=== PATIENT | male | born 1950 | race Caucasian/White ===

== ENCOUNTER 2016-09-17 | Inpatient (IN) | payer MEDICARE, MEDICAID ==
[~2016-09-17] VITALS: Ht 172.7 cm; Wt 65.8 kg
[~2016-09-17] MED LIST: ACID1TAB14 GT; ALBU2.5V38 IH; AMIO200T2 GT; ASCO500S2 GT; BISA10SU8 RC; DEXT1DRO6 EACHEYE; DOCU50LI GT; ERGO8000 GT; FINA5TAB3 GT; GLYC1TAB5 GT; HYDR-552 GT; Heparin Sodium,Porcine SQ; IPRA0.2S9 IH; LEVO150T8 GT; METO5SOL GT; METR500T PO; MULT-24 GT; MUPI22OI7; NUTR100037 GT; OMEP20CA4 GT; POLY17PO4 GT; POTA20LI4 GT; SENN8.6C5 GT; [UNRECOGNIZED DRUG - CODE] GT
[2016-09-19 07:45] VITALS: BP 109/64
--- NOTE | 2016-09-19 08:00 | NUR ---
Please see resident's previous account [id number] for all assessments and nurses notes. Originally admitted on 06/05/2014.
[2016-09-19] MEDS ORDERED: CEFTRIAXONE 1 G in IV D5W 50 ML IV SCH ×2 (09:00→17:00)
--- NOTE | 2016-09-19 10:00 | NUR ---
Pt seen by Dr. David. Notified Dr. David that patient had episodes of low grade fever 99-100F. No SOB/ no distress noted. UA C&S taken yesterday, results still pending. Temp now 98.1. No new order given.
--- NOTE | 2016-09-19 10:30 | NUR ---
at bedside, requested CBC to check WBC level d/t episodes of low grade fever. Dr. David notified, order obtained for CBC today, noted and carried out. notified of new order.
[2016-09-19] MEDS ORDERED: TUBERCULIN,PURIF.PROT.DERIV. 5 TU/0.1 ML VIAL ID SCH (10:41)
[2016-09-19] MEDS ORDERED: IPRATROPIUM NEB FS 0.5 MG/2.5 ML AMPUL.NEB NEB SCH (10:41)
[2016-09-19] MEDS ORDERED: FINASTERIDE (5 MG) 5 MG TABLET GT SCH (10:41)
[2016-09-19] MEDS ORDERED: POLYVINYL ALCOHOL 15 ML BOTTLE EACHEYE SCH (10:41)
[2016-09-19] MEDS ORDERED: MAG HYDROX/AL HYDROX/SIMETH 30 ML UDC GT PRN (10:41)
[2016-09-19] MEDS ORDERED: OMEPRAZOLE 20 MG GT SCH (10:41)
[2016-09-19] MEDS ORDERED: ERGOCALCIFEROL (VITAMIN D2) 8,000 UNIT/ML GT SCH (10:41)
[2016-09-19] MEDS ORDERED: ALBUTEROL FS 2.5 MG/3 ML VIAL.NEB NEB SCH (10:41)
[2016-09-19] MEDS ORDERED: LEVOTHYROXINE SODIUM 150 MCG TABLET GT SCH (10:41)
[2016-09-19] MEDS ORDERED: BACLOFEN (10 MG) 10 MG TABLET GT SCH (10:41)
[2016-09-19] MEDS ORDERED: SORBITOL SOLUTION 30 ML GT PRN (10:41)
[2016-09-19] MEDS ORDERED: BISACODYL SUPP (10 MG) 10 MG/SUPP.RECT SUPP.RECT RC PRN (10:41)
[2016-09-19] MEDS ORDERED: HYDROGEN PEROXIDE 480 ML BOTTLE TP PRN (10:41)
--- NOTE | 2016-09-19 11:16 | NUR ---
Please see resident's previous account [id number] for Social Service assessments, evaluations and notes.
[2016-09-19] MEDS: POLYVINYL ALCOHOL 15 ML BOTTLE EACHEYE SCH ×3 (13:00→21:00)
[2016-09-19] MEDS: BACLOFEN (10 MG) 10 MG TABLET GT SCH ×2 (13:00→21:00)
[2016-09-19 13:23] LABS: BASOPHILS # (AUTO) 0.1 /CMM (0.0-0.2); BASOPHILS % (AUTO) 0.6 % (0.0-2.0); EOSINOPHILS # (AUTO) 0.3 /CMM (0.0-0.7); EOSINOPHILS % (AUTO) 1.1 % (0.0-6.0); HEMATOCRIT 39 % (39-51); HEMOGLOBIN 12.2 g/dL (13.5-17.5); LYMPHOCYTES # (AUTO) 1.3 /CMM (0.8-4.8); LYMPHOCYTES % (AUTO) 5.4 % (20.0-44.0); MEAN CORPUSCULAR HEMOGLOBIN 24 PG (26.0-33.0); MEAN CORPUSCULAR HGB CONC 32 g/dl (31.0-36.0); MEAN CORPUSCULAR VOLUME 74 fL (80-96); MONOCYTES # (AUTO) 1.9 /CMM (0.1-1.30); MONOCYTES % (AUTO) 8.1 % (2.0-12.0); NEUTROPHILS # (AUTO) 20.1 /CMM (1.8-8.9); NEUTROPHILS % (AUTO) 84.8 % (43.0-81.0); PLATELET COUNT (AUTO) 237 /CMM (150-450); RDW COEFFICIENT OF VARIATION 18.7 (11.5-15.0); WHITE BLOOD COUNT (AUTO) 23.7 K/uL (4.3-11.0)
[2016-09-19] MEDS: IPRATROPIUM NEB FS 0.5 MG/2.5 ML AMPUL.NEB NEB SCH ×2 (13:45→19:41)
[2016-09-19] MEDS: ALBUTEROL FS 2.5 MG/3 ML VIAL.NEB NEB SCH ×2 (13:45→19:41)
[2016-09-19 14:37] LABS: EOSINOPHILS % (MANUAL) 1 % (0-4); LYMPHOCYTES % (MANUAL) 7 % (16-48); MONOCYTES % (MANUAL) 12 % (0-11.0); NEUTROPHILS % (MANUAL) 80 (42-76)
--- NOTE | 2016-09-19 14:44 | NUR ---
Relayed CBC result to Dr. David: WBC 23.4. Order obtained to start patient on Rocephin 1gm IV q daily x 7 days, blood culture x 2. Orders noted and carried out. Addendum: 09/19/16 at 1712 by CHIQUITA NICOLE RN correction on WBC result- 23.7
--- NOTE | 2016-09-19 16:20 | NUR ---
Received a call from [facility] pharmacist to verify if Dr. David wants to continue Rocephin d/t allergy to cefepime. Order obtained to DC Rocephin and start pt on Merrem 500mg IV q 8 hrs x 7 days. Order noted and carried out. Pt's notified of new order.
[2016-09-19 19:51] VITALS: BP 100/57
[2016-09-19] MEDS: FINASTERIDE (5 MG) 5 MG TABLET GT SCH (20:00)
[2016-09-19] MEDS: GLYCOPYRROLATE 1 MG TABLET GT SCH (21:00)
[2016-09-19] MEDS: CLOTRIMAZOLE/BETAMETASONE DIPROPIONATE 15 GM TUBE TP SCH (21:00)
[2016-09-19] MEDS: ZINC OXIDE 30 GM TUBE TP SCH ×2 (21:00)
[2016-09-19] MEDS: HYDROGEN PEROXIDE 480 ML BOTTLE TP SCH (21:00)
[2016-09-19] MEDS: HEPARIN SODIUM, PORCINE 5000 UNITS/1 ML VIAL SQ SCH (21:00)
--- NOTE | 2016-09-19 21:00 | NUR ---
RN NOTES Started Merrem 500mg IV as ordered, with no A/R noted. Will continue to monitor.
[2016-09-19] MEDS: MEROPENEM 500 MG in IV NS 0.9% 50 ML IV SCH (21:06)
[2016-09-20] MEDS: ALBUTEROL FS 2.5 MG/3 ML VIAL.NEB NEB SCH ×4 (01:42→19:51)
[2016-09-20] MEDS: IPRATROPIUM NEB FS 0.5 MG/2.5 ML AMPUL.NEB NEB SCH ×4 (01:42→19:51)
[2016-09-20] MEDS: BACLOFEN (10 MG) 10 MG TABLET GT SCH ×3 (05:00→20:26)
[2016-09-20] MEDS: MEROPENEM 500 MG in IV NS 0.9% 50 ML IV SCH ×3 (05:00→21:01)
[2016-09-20] MEDS: OMEPRAZOLE 20 MG GT SCH (06:40)
[2016-09-20] MEDS: LEVOTHYROXINE SODIUM 150 MCG TABLET GT SCH (06:40)
[2016-09-20 08:05] VITALS: BP 136/78
[2016-09-20] MEDS: ACIDOPHILUS/BULGARICUS 1 EACH TAB.CHEW GT SCH (08:22)
[2016-09-20] MEDS: GLYCOPYRROLATE 1 MG TABLET GT SCH ×2 (08:22→20:26)
[2016-09-20] MEDS: AMIODARONE HCL 200 MG TABLET GT SCH (08:22)
[2016-09-20] MEDS: POLYVINYL ALCOHOL 15 ML BOTTLE EACHEYE SCH ×4 (08:22→20:26)
[2016-09-20] MEDS: MULTIVITAMINS,THERAGRAN 1 UDTAB TABLET GT SCH (08:23)
[2016-09-20] MEDS: ASCORBIC ACID 500 MG TABLET GT SCH (08:23)
[2016-09-20] MEDS: POTASSIUM CHLORIDE 20 MEQ/15 ML ML GT SCH (08:23)
[2016-09-20] MEDS: POLYETHYLENE GLYCOL 3350 17 GM POWD.PACK GT SCH (08:23)
[2016-09-20] MEDS: ZINC OXIDE 30 GM TUBE TP SCH ×4 (08:25→20:27)
[2016-09-20] MEDS: HEPARIN SODIUM, PORCINE 5000 UNITS/1 ML VIAL SQ SCH ×2 (08:25→20:27)
[2016-09-20] MEDS: HYDROGEN PEROXIDE 480 ML BOTTLE TP SCH ×2 (08:25→20:27)
[2016-09-20] MEDS: CLOTRIMAZOLE/BETAMETASONE DIPROPIONATE 15 GM TUBE TP SCH ×2 (08:25→20:27)
[2016-09-20 19:43] VITALS: BP 119/69
[2016-09-20] MEDS: FINASTERIDE (5 MG) 5 MG TABLET GT SCH (20:26)
[2016-09-21] MEDS: IPRATROPIUM NEB FS 0.5 MG/2.5 ML AMPUL.NEB NEB SCH ×4 (02:09→20:01)
[2016-09-21] MEDS: ALBUTEROL FS 2.5 MG/3 ML VIAL.NEB NEB SCH ×4 (02:09→20:01)
[2016-09-21] MEDS: MEROPENEM 500 MG in IV NS 0.9% 50 ML IV SCH ×3 (05:01→21:05)
[2016-09-21] MEDS: BACLOFEN (10 MG) 10 MG TABLET GT SCH ×3 (05:49→20:53)
[2016-09-21] MEDS: LEVOTHYROXINE SODIUM 150 MCG TABLET GT SCH (05:49)
[2016-09-21] MEDS: OMEPRAZOLE 20 MG GT SCH (05:49)
[2016-09-21 07:42] VITALS: BP 112/74
[2016-09-21] MEDS: POLYETHYLENE GLYCOL 3350 17 GM POWD.PACK GT SCH (08:24)
[2016-09-21] MEDS: GLYCOPYRROLATE 1 MG TABLET GT SCH ×2 (08:24→20:53)
[2016-09-21] MEDS: AMIODARONE HCL 200 MG TABLET GT SCH (08:24)
[2016-09-21] MEDS: POTASSIUM CHLORIDE 20 MEQ/15 ML ML GT SCH (08:24)
[2016-09-21] MEDS: ASCORBIC ACID 500 MG TABLET GT SCH (08:24)
[2016-09-21] MEDS: MULTIVITAMINS,THERAGRAN 1 UDTAB TABLET GT SCH (08:24)
[2016-09-21] MEDS: POLYVINYL ALCOHOL 15 ML BOTTLE EACHEYE SCH ×4 (08:24→20:53)
[2016-09-21] MEDS: ACIDOPHILUS/BULGARICUS 1 EACH TAB.CHEW GT SCH (08:24)
[2016-09-21] MEDS: HEPARIN SODIUM, PORCINE 5000 UNITS/1 ML VIAL SQ SCH ×2 (08:25→20:53)
[2016-09-21] MEDS: ZINC OXIDE 30 GM TUBE TP SCH ×4 (08:25→20:54)
[2016-09-21] MEDS: CLOTRIMAZOLE/BETAMETASONE DIPROPIONATE 15 GM TUBE TP SCH ×2 (08:25→20:53)
[2016-09-21] MEDS: HYDROGEN PEROXIDE 480 ML BOTTLE TP SCH ×2 (08:25→20:53)
[2016-09-21] MEDS: RENAL NOVASOURCE 1,000 ML BOTTLE GT PRN (12:11)
[2016-09-21 20:18] VITALS: BP 100/60
--- NOTE | 2016-09-21 20:45 | NUR ---
Pt seen by Vivian Posada NP,with new order to get ID consult for recurrent UTI.Will contact ID in the morning.
[2016-09-21] MEDS: FINASTERIDE (5 MG) 5 MG TABLET GT SCH (20:53)
[2016-09-22] MEDS: IPRATROPIUM NEB FS 0.5 MG/2.5 ML AMPUL.NEB NEB SCH ×4 (01:42→19:22)
[2016-09-22] MEDS: ALBUTEROL FS 2.5 MG/3 ML VIAL.NEB NEB SCH ×4 (01:42→19:22)
[2016-09-22] MEDS: BACLOFEN (10 MG) 10 MG TABLET GT SCH ×3 (05:00→21:30)
[2016-09-22] MEDS: MEROPENEM 500 MG in IV NS 0.9% 50 ML IV SCH ×3 (05:14→21:00)
[2016-09-22] MEDS: LEVOTHYROXINE SODIUM 150 MCG TABLET GT SCH (06:35)
[2016-09-22] MEDS: OMEPRAZOLE 20 MG GT SCH (06:35)
[2016-09-22 08:08] VITALS: BP 95/62
[2016-09-22] MEDS: POLYVINYL ALCOHOL 15 ML BOTTLE EACHEYE SCH ×4 (08:54→21:30)
[2016-09-22] MEDS: AMIODARONE HCL 200 MG TABLET GT SCH (08:55)
[2016-09-22] MEDS: ACIDOPHILUS/BULGARICUS 1 EACH TAB.CHEW GT SCH (08:55)
[2016-09-22] MEDS: GLYCOPYRROLATE 1 MG TABLET GT SCH ×2 (08:55→21:30)
[2016-09-22] MEDS: MULTIVITAMINS,THERAGRAN 1 UDTAB TABLET GT SCH (08:56)
[2016-09-22] MEDS: ASCORBIC ACID 500 MG TABLET GT SCH (08:56)
[2016-09-22] MEDS: POLYETHYLENE GLYCOL 3350 17 GM POWD.PACK GT SCH (08:56)
[2016-09-22] MEDS: POTASSIUM CHLORIDE 20 MEQ/15 ML ML GT SCH (08:56)
[2016-09-22] MEDS: HEPARIN SODIUM, PORCINE 5000 UNITS/1 ML VIAL SQ SCH ×2 (08:57→21:31)
[2016-09-22] MEDS: HYDROGEN PEROXIDE 480 ML BOTTLE TP SCH ×2 (08:58→21:31)
[2016-09-22] MEDS: ZINC OXIDE 30 GM TUBE TP SCH ×4 (08:58→21:31)
[2016-09-22] MEDS: CLOTRIMAZOLE/BETAMETASONE DIPROPIONATE 15 GM TUBE TP SCH ×2 (08:58→21:31)
--- NOTE | 2016-09-22 11:45 | NUR ---
Made a followup call to lab ([facility]) regarding result of the urine cx collected on 09/18/16. According to lab he will follow-up and will get back to me.
--- NOTE | 2016-09-22 12:08 | NUR ---
Millicent Casillas NP ID notified of ID consult to review current medications and medications that can be added to prevent recurrence of UTI.
[2016-09-22] MEDS: RENAL NOVASOURCE 1,000 ML BOTTLE GT PRN (12:35)
[2016-09-22] MEDS: ACETAMINOPHEN 650 MG/20 ML UDC- FOR SA PATIENTS ONLY GT PRN (16:48)
--- NOTE | 2016-09-22 18:40 | NUR ---
Seen and examined by Millicent ALONZO, no new order given at this time. She stated that she will review his medications and look at prophylactic treatment after the ATB is completed.
[2016-09-22] MEDS: FINASTERIDE (5 MG) 5 MG TABLET GT SCH (20:30)
[2016-09-23] MEDS: IPRATROPIUM NEB FS 0.5 MG/2.5 ML AMPUL.NEB NEB SCH ×4 (00:48→19:30)
[2016-09-23] MEDS: ALBUTEROL FS 2.5 MG/3 ML VIAL.NEB NEB SCH ×4 (00:48→19:30)
[2016-09-23] MEDS: MEROPENEM 500 MG in IV NS 0.9% 50 ML IV SCH ×3 (05:00→21:00)
[2016-09-23] MEDS: BACLOFEN (10 MG) 10 MG TABLET GT SCH ×3 (05:00→21:20)
[2016-09-23] MEDS: OMEPRAZOLE 20 MG GT SCH (06:17)
[2016-09-23] MEDS: LEVOTHYROXINE SODIUM 150 MCG TABLET GT SCH (06:17)
[2016-09-23 07:39] VITALS: BP 115/53
[2016-09-23] MEDS: AMIODARONE HCL 200 MG TABLET GT SCH (08:58)
[2016-09-23] MEDS: ASCORBIC ACID 500 MG TABLET GT SCH (08:58)
[2016-09-23] MEDS: MULTIVITAMINS,THERAGRAN 1 UDTAB TABLET GT SCH (08:58)
[2016-09-23] MEDS: POLYETHYLENE GLYCOL 3350 17 GM POWD.PACK GT SCH (08:58)
[2016-09-23] MEDS: POTASSIUM CHLORIDE 20 MEQ/15 ML ML GT SCH (08:58)
[2016-09-23] MEDS: POLYVINYL ALCOHOL 15 ML BOTTLE EACHEYE SCH ×4 (08:58→21:20)
[2016-09-23] MEDS: GLYCOPYRROLATE 1 MG TABLET GT SCH ×2 (08:58→21:20)
[2016-09-23] MEDS: ACIDOPHILUS/BULGARICUS 1 EACH TAB.CHEW GT SCH (08:58)
[2016-09-23] MEDS: HEPARIN SODIUM, PORCINE 5000 UNITS/1 ML VIAL SQ SCH ×2 (09:00→21:21)
[2016-09-23] MEDS: HYDROGEN PEROXIDE 480 ML BOTTLE TP SCH ×2 (09:00→21:21)
[2016-09-23] MEDS: CLOTRIMAZOLE/BETAMETASONE DIPROPIONATE 15 GM TUBE TP SCH ×2 (09:00→21:21)
[2016-09-23] MEDS: ZINC OXIDE 30 GM TUBE TP SCH ×4 (09:00→21:21)
[2016-09-23] MEDS: ACETAMINOPHEN 650 MG/20 ML UDC- FOR SA PATIENTS ONLY GT PRN (09:12)
[2016-09-23] MEDS: RENAL NOVASOURCE 1,000 ML BOTTLE GT PRN (15:23)
--- NOTE | 2016-09-23 19:10 | NUR ---
Notified CARMELITA Ricks ID of the CXR result showing bilateral perihilar infiltrates with suggestion of a left retrocardiac opacity. New order given to add Vancomycin IV to the current ATB. per pharmacy to dose. Faxed order to [facility] pharmacy for dosing and endorsed to incoming shift to notify and start the dose.
--- NOTE | 2016-09-23 19:32 | NUR ---
RECEIVED AN ORDER FROM [facility] PHARMACIST TORI TO START VANCOMYCIN 1GRAM IVPB Q24HRS START AT 2000 TONIGHT AND GET THE DOSE FROM THE E-KIT. DRAW THROUGH ON 09/25/16Sunday AT 1930 BEFORE THE 2000 DOSE. BUN AND CREATININE ORDER TOO.
[2016-09-23 19:58] VITALS: BP 100/65
[2016-09-23] MEDS: FINASTERIDE (5 MG) 5 MG TABLET GT SCH (20:00)
[2016-09-23] MEDS ORDERED: VANCOMYCIN 1 GM in IV D5W 250 ML IV SCH (20:30)
[2016-09-24] MEDS: IPRATROPIUM NEB FS 0.5 MG/2.5 ML AMPUL.NEB NEB SCH ×4 (01:41→19:13)
[2016-09-24] MEDS: ALBUTEROL FS 2.5 MG/3 ML VIAL.NEB NEB SCH ×4 (01:41→19:13)
[2016-09-24] MEDS: MEROPENEM 500 MG in IV NS 0.9% 50 ML IV SCH ×3 (05:00→20:58)
[2016-09-24] MEDS: OMEPRAZOLE 20 MG GT SCH (05:24)
[2016-09-24] MEDS: LEVOTHYROXINE SODIUM 150 MCG TABLET GT SCH (05:24)
[2016-09-24] MEDS: BACLOFEN (10 MG) 10 MG TABLET GT SCH ×3 (05:24→20:16)
[2016-09-24] MEDS ORDERED: VANCOMYCIN 1 GM in IV D5W 250 ML IV SCH (07:29)
--- NOTE | 2016-09-24 08:00 | NUR ---
RT PATIENT RECEIVED TRACHED ON COOL AEROSOL VIA BAL RANJIT WELL. RESP TX'S GIVEN ORDERED RANJIT WELL. TRACH SECURE AND IN PROPER POSITION. SX'D WITH MOD AMT PALE SEMITHICK SECRETIONS. B/S DIM RHONCHI. PATIENT IN NO DISTRESS OR SOB AT THIS TIME. BACK UP TRACH AND AMBU BAG AT [facility]. CONTINUE CURRENT PLAN OF RESP CARE.
[2016-09-24 08:10] VITALS: BP 113/75
[2016-09-24] MEDS: POLYVINYL ALCOHOL 15 ML BOTTLE EACHEYE SCH ×4 (09:03→20:16)
[2016-09-24] MEDS: HEPARIN SODIUM, PORCINE 5000 UNITS/1 ML VIAL SQ SCH ×2 (09:04→20:19)
[2016-09-24] MEDS: ASCORBIC ACID 500 MG TABLET GT SCH (09:04)
[2016-09-24] MEDS: ACIDOPHILUS/BULGARICUS 1 EACH TAB.CHEW GT SCH (09:04)
[2016-09-24] MEDS: POTASSIUM CHLORIDE 20 MEQ/15 ML ML GT SCH (09:04)
[2016-09-24] MEDS: POLYETHYLENE GLYCOL 3350 17 GM POWD.PACK GT SCH (09:04)
[2016-09-24] MEDS: MULTIVITAMINS,THERAGRAN 1 UDTAB TABLET GT SCH (09:04)
[2016-09-24] MEDS: ERGOCALCIFEROL (VITAMIN D2) 8,000 UNIT/ML GT SCH (09:04)
[2016-09-24] MEDS: GLYCOPYRROLATE 1 MG TABLET GT SCH ×2 (09:04→20:16)
[2016-09-24] MEDS: AMIODARONE HCL 200 MG TABLET GT SCH (09:04)
[2016-09-24] MEDS: ZINC OXIDE 30 GM TUBE TP SCH ×4 (09:05→20:19)
[2016-09-24] MEDS: HYDROGEN PEROXIDE 480 ML BOTTLE TP SCH ×2 (09:05→20:19)
[2016-09-24] MEDS: CLOTRIMAZOLE/BETAMETASONE DIPROPIONATE 15 GM TUBE TP SCH ×2 (09:05→20:19)
[2016-09-24 20:05] VITALS: BP 114/58
[2016-09-24] MEDS: FINASTERIDE (5 MG) 5 MG TABLET GT SCH (20:15)
[2016-09-24] MEDS: VANCOMYCIN 1 GM in IV D5W 250 ML IV SCH (20:58)
[2016-09-25] MEDS: IPRATROPIUM NEB FS 0.5 MG/2.5 ML AMPUL.NEB NEB SCH ×4 (01:14→19:24)
[2016-09-25] MEDS: ALBUTEROL FS 2.5 MG/3 ML VIAL.NEB NEB SCH ×4 (01:15→19:24)
[2016-09-25] MEDS: BACLOFEN (10 MG) 10 MG TABLET GT SCH ×3 (05:25→20:41)
[2016-09-25] MEDS: OMEPRAZOLE 20 MG GT SCH (05:26)
[2016-09-25] MEDS: LEVOTHYROXINE SODIUM 150 MCG TABLET GT SCH (05:26)
[2016-09-25] MEDS: MEROPENEM 500 MG in IV NS 0.9% 50 ML IV SCH ×3 (05:35→21:26)
[2016-09-25 08:10] VITALS: BP 107/68
--- NOTE | 2016-09-25 08:16 | NUR ---
RT PATIENT RECEIVED TRACHED ON COOL AEROSOL VIA BAL RANJIT WELL. RESP TX'S GIVEN ORDERED RANJIT WELL. TRACH SECURE AND IN PROPER POSITION. SX'D WITH MOD AMT PALE SEMITHICK SECRETIONS. B/S DIM RHONCHI. PATIENT IN NO DISTRESS OR SOB AT THIS TIME. BACK UP TRACH AND AMBU BAG AT [facility]. CONTINUE CURRENT PLAN OF RESP CARE.
[2016-09-25] MEDS: ZINC OXIDE 30 GM TUBE TP SCH ×4 (09:00→20:41)
[2016-09-25] MEDS: HYDROGEN PEROXIDE 480 ML BOTTLE TP SCH ×2 (09:00→20:41)
[2016-09-25] MEDS: CLOTRIMAZOLE/BETAMETASONE DIPROPIONATE 15 GM TUBE TP SCH ×2 (09:00→20:41)
[2016-09-25] MEDS: POLYVINYL ALCOHOL 15 ML BOTTLE EACHEYE SCH ×4 (09:25→20:41)
[2016-09-25] MEDS: AMIODARONE HCL 200 MG TABLET GT SCH (09:25)
[2016-09-25] MEDS: GLYCOPYRROLATE 1 MG TABLET GT SCH ×2 (09:26→20:41)
[2016-09-25] MEDS: ACIDOPHILUS/BULGARICUS 1 EACH TAB.CHEW GT SCH (09:27)
[2016-09-25] MEDS: POLYETHYLENE GLYCOL 3350 17 GM POWD.PACK GT SCH (09:27)
[2016-09-25] MEDS: POTASSIUM CHLORIDE 20 MEQ/15 ML ML GT SCH (09:28)
[2016-09-25] MEDS: MULTIVITAMINS,THERAGRAN 1 UDTAB TABLET GT SCH (09:29)
[2016-09-25] MEDS: ASCORBIC ACID 500 MG TABLET GT SCH (09:29)
[2016-09-25] MEDS: HEPARIN SODIUM, PORCINE 5000 UNITS/1 ML VIAL SQ SCH ×2 (09:29→20:41)
--- NOTE | 2016-09-25 10:17 | NUR ---
Seen by Dr. David. Received order to do CMC tomorrow. Addendum: 09/25/16 at 1022 by NOAH OGDEN RN CBC
[2016-09-25 19:54] LABS: CREATININE 1.6 mg/dL (0.6-1.3)
[2016-09-25 20:00] VITALS: BP 111/67
[2016-09-25] MEDS: VANCOMYCIN 1 GM in IV D5W 250 ML IV SCH (20:30)
--- NOTE | 2016-09-25 20:30 | NUR ---
RN NOTES Relayed vanco trough level of 13, BUN/CREA serum 29/1.6 to [facility] pharmacist. Received pharmacy recommendation to continue same dose, relayed to Dr. Paniagua and received new order noted and carried out. at bedside and made aware of new orders.
[2016-09-25] MEDS: FINASTERIDE (5 MG) 5 MG TABLET GT SCH (20:41)
[2016-09-25] MEDS: RENAL NOVASOURCE 1,000 ML BOTTLE GT PRN (20:43)
[2016-09-26] MEDS: ALBUTEROL FS 2.5 MG/3 ML VIAL.NEB NEB SCH ×4 (00:57→19:30)
[2016-09-26] MEDS: IPRATROPIUM NEB FS 0.5 MG/2.5 ML AMPUL.NEB NEB SCH ×4 (00:57→19:30)
[2016-09-26] MEDS: MEROPENEM 500 MG in IV NS 0.9% 50 ML IV SCH ×2 (05:00→13:05)
[2016-09-26] MEDS: OMEPRAZOLE 20 MG GT SCH (05:46)
[2016-09-26] MEDS: LEVOTHYROXINE SODIUM 150 MCG TABLET GT SCH (05:46)
[2016-09-26] MEDS: BACLOFEN (10 MG) 10 MG TABLET GT SCH ×3 (05:46→20:35)
[2016-09-26 07:39] VITALS: BP 137/56
[2016-09-26 07:59] LABS: BASOPHILS # (AUTO) 0.2 /CMM (0.0-0.2); BASOPHILS % (AUTO) 1.4 % (0.0-2.0); EOSINOPHILS # (AUTO) 0.3 /CMM (0.0-0.7); EOSINOPHILS % (AUTO) 2.5 % (0.0-6.0); HEMATOCRIT 33 % (39-51); HEMOGLOBIN 10.6 g/dL (13.5-17.5); LYMPHOCYTES # (AUTO) 1.2 /CMM (0.8-4.8); LYMPHOCYTES % (AUTO) 10.3 % (20.0-44.0); MEAN CORPUSCULAR HEMOGLOBIN 24 PG (26.0-33.0); MEAN CORPUSCULAR HGB CONC 32 g/dl (31.0-36.0); MEAN CORPUSCULAR VOLUME 74 fL (80-96); MONOCYTES # (AUTO) 1.2 /CMM (0.1-1.30); MONOCYTES % (AUTO) 10.6 % (2.0-12.0); NEUTROPHILS # (AUTO) 8.4 /CMM (1.8-8.9); NEUTROPHILS % (AUTO) 75.2 % (43.0-81.0); PLATELET COUNT (AUTO) 376 /CMM (150-450); RDW COEFFICIENT OF VARIATION 18.5 (11.5-15.0); RED BLOOD CELL COUNT(AUTO) 4.47 MIL/uL (4.5-6.0); WHITE BLOOD COUNT (AUTO) 11.2 K/uL (4.3-11.0)
[2016-09-26] MEDS: CLOTRIMAZOLE/BETAMETASONE DIPROPIONATE 15 GM TUBE TP SCH ×2 (09:00→20:43)
[2016-09-26] MEDS: ZINC OXIDE 30 GM TUBE TP SCH ×4 (09:00→20:44)
[2016-09-26] MEDS: HYDROGEN PEROXIDE 480 ML BOTTLE TP SCH ×2 (09:00→20:43)
[2016-09-26] MEDS: AMIODARONE HCL 200 MG TABLET GT SCH (09:58)
[2016-09-26] MEDS: POLYETHYLENE GLYCOL 3350 17 GM POWD.PACK GT SCH (09:59)
[2016-09-26] MEDS: POLYVINYL ALCOHOL 15 ML BOTTLE EACHEYE SCH ×4 (09:59→20:34)
[2016-09-26] MEDS: ASCORBIC ACID 500 MG TABLET GT SCH (09:59)
[2016-09-26] MEDS: POTASSIUM CHLORIDE 20 MEQ/15 ML ML GT SCH (09:59)
[2016-09-26] MEDS: GLYCOPYRROLATE 1 MG TABLET GT SCH ×2 (09:59→20:34)
[2016-09-26] MEDS: MULTIVITAMINS,THERAGRAN 1 UDTAB TABLET GT SCH (09:59)
[2016-09-26] MEDS: ACIDOPHILUS/BULGARICUS 1 EACH TAB.CHEW GT SCH (09:59)
[2016-09-26] MEDS: HEPARIN SODIUM, PORCINE 5000 UNITS/1 ML VIAL SQ SCH ×2 (10:00→20:43)
--- NOTE | 2016-09-26 13:30 | NUR ---
Seen by STRICKLER ATTENDANT Vivian Posada. Relayed CBC result to her. WBC improved to 11.2. Pt still on IV ATBs. No new order.
[2016-09-26] MEDS: VANCOMYCIN 1 GM in IV D5W 250 ML IV SCH (20:00)
[2016-09-26 20:11] VITALS: BP 120/69
[2016-09-26] MEDS: FINASTERIDE (5 MG) 5 MG TABLET GT SCH (20:34)
[2016-09-27] MEDS: IPRATROPIUM NEB FS 0.5 MG/2.5 ML AMPUL.NEB NEB SCH ×4 (01:00→19:30)
[2016-09-27] MEDS: ALBUTEROL FS 2.5 MG/3 ML VIAL.NEB NEB SCH ×4 (01:00→19:30)
[2016-09-27] MEDS: BACLOFEN (10 MG) 10 MG TABLET GT SCH ×3 (05:14→20:25)
[2016-09-27] MEDS: LEVOTHYROXINE SODIUM 150 MCG TABLET GT SCH (05:14)
[2016-09-27] MEDS: OMEPRAZOLE 20 MG GT SCH (05:14)
[2016-09-27 07:36] VITALS: BP 116/74
[2016-09-27] MEDS: MULTIVITAMINS,THERAGRAN 1 UDTAB TABLET GT SCH (08:57)
[2016-09-27] MEDS: GLYCOPYRROLATE 1 MG TABLET GT SCH ×2 (08:57→20:25)
[2016-09-27] MEDS: ASCORBIC ACID 500 MG TABLET GT SCH (08:57)
[2016-09-27] MEDS: POTASSIUM CHLORIDE 20 MEQ/15 ML ML GT SCH (08:57)
[2016-09-27] MEDS: ACIDOPHILUS/BULGARICUS 1 EACH TAB.CHEW GT SCH (08:57)
[2016-09-27] MEDS: POLYETHYLENE GLYCOL 3350 17 GM POWD.PACK GT SCH (08:57)
[2016-09-27] MEDS: POLYVINYL ALCOHOL 15 ML BOTTLE EACHEYE SCH ×4 (08:57→20:25)
[2016-09-27] MEDS: AMIODARONE HCL 200 MG TABLET GT SCH (08:57)
[2016-09-27] MEDS: CLOTRIMAZOLE/BETAMETASONE DIPROPIONATE 15 GM TUBE TP SCH ×2 (08:58→20:27)
[2016-09-27] MEDS: ZINC OXIDE 30 GM TUBE TP SCH ×4 (08:58→20:27)
[2016-09-27] MEDS: HYDROGEN PEROXIDE 480 ML BOTTLE TP SCH ×2 (08:58→20:27)
[2016-09-27] MEDS: HEPARIN SODIUM, PORCINE 5000 UNITS/1 ML VIAL SQ SCH ×2 (09:00→20:27)
--- NOTE | 2016-09-27 14:00 | NUR ---
Seen and examined by Vivian Posada NP, no new order given.
[2016-09-27 20:00] VITALS: BP 113/63
[2016-09-27] MEDS: VANCOMYCIN 1 GM in IV D5W 250 ML IV SCH (20:23)
[2016-09-27] MEDS: FINASTERIDE (5 MG) 5 MG TABLET GT SCH (20:25)
[2016-09-28] MEDS: ALBUTEROL FS 2.5 MG/3 ML VIAL.NEB NEB SCH ×4 (01:35→20:08)
[2016-09-28] MEDS: IPRATROPIUM NEB FS 0.5 MG/2.5 ML AMPUL.NEB NEB SCH ×4 (01:35→20:08)
[2016-09-28] MEDS: BACLOFEN (10 MG) 10 MG TABLET GT SCH ×3 (04:36→20:56)
[2016-09-28] MEDS: OMEPRAZOLE 20 MG GT SCH (05:31)
[2016-09-28] MEDS: LEVOTHYROXINE SODIUM 150 MCG TABLET GT SCH (05:31)
[2016-09-28 07:54] VITALS: BP 121/80
[2016-09-28] MEDS: POLYVINYL ALCOHOL 15 ML BOTTLE EACHEYE SCH ×4 (09:21→20:56)
[2016-09-28] MEDS: POTASSIUM CHLORIDE 20 MEQ/15 ML ML GT SCH (09:22)
[2016-09-28] MEDS: GLYCOPYRROLATE 1 MG TABLET GT SCH ×2 (09:22→20:56)
[2016-09-28] MEDS: POLYETHYLENE GLYCOL 3350 17 GM POWD.PACK GT SCH (09:22)
[2016-09-28] MEDS: AMIODARONE HCL 200 MG TABLET GT SCH (09:22)
[2016-09-28] MEDS: MULTIVITAMINS,THERAGRAN 1 UDTAB TABLET GT SCH (09:22)
[2016-09-28] MEDS: ASCORBIC ACID 500 MG TABLET GT SCH (09:22)
[2016-09-28] MEDS: ACIDOPHILUS/BULGARICUS 1 EACH TAB.CHEW GT SCH (09:22)
[2016-09-28] MEDS: CLOTRIMAZOLE/BETAMETASONE DIPROPIONATE 15 GM TUBE TP SCH ×2 (09:23→20:58)
[2016-09-28] MEDS: ZINC OXIDE 30 GM TUBE TP SCH ×4 (09:23→21:01)
[2016-09-28] MEDS: HYDROGEN PEROXIDE 480 ML BOTTLE TP SCH ×2 (09:23→20:58)
[2016-09-28] MEDS: HEPARIN SODIUM, PORCINE 5000 UNITS/1 ML VIAL SQ SCH ×2 (09:23→20:58)
[2016-09-28] MEDS: VANCOMYCIN 1 GM in IV D5W 250 ML IV SCH (20:00)
[2016-09-28 20:14] VITALS: BP 115/71
[2016-09-28 20:15] LABS: CREATININE 1.6 mg/dL (0.6-1.3)
[2016-09-28] MEDS: FINASTERIDE (5 MG) 5 MG TABLET GT SCH (20:56)
[2016-09-29] MEDS: ALBUTEROL FS 2.5 MG/3 ML VIAL.NEB NEB SCH ×4 (02:00→20:10)
[2016-09-29] MEDS: IPRATROPIUM NEB FS 0.5 MG/2.5 ML AMPUL.NEB NEB SCH ×4 (02:00→20:10)
[2016-09-29] MEDS: RENAL NOVASOURCE 1,000 ML BOTTLE GT PRN (04:50)
[2016-09-29] MEDS: BACLOFEN (10 MG) 10 MG TABLET GT SCH ×3 (05:00→21:48)
[2016-09-29] MEDS: OMEPRAZOLE 20 MG GT SCH (06:24)
[2016-09-29] MEDS: LEVOTHYROXINE SODIUM 150 MCG TABLET GT SCH (06:24)
--- NOTE | 2016-09-29 07:45 | NUR ---
RT PATIENT RECEIVED TRACHED ON COOL AEROSOL VIA T-BAR RANJIT WELL. RESP TX'S GIVEN ORDERED RANJIT WELL. TRACH SECURE AND IN PROPER POSITION. SX'D WITH MOD AMT PALE SEMITHICK SECRETIONS. B/S DIM. PATIENT IN NO DISTRESS OR SOB AT THIS TIME. BACK UP TRACH AND AMBU BAG AT [facility]. CONTINUE CURRENT PLAN OF RESP CARE.
[2016-09-29] MEDS: POLYVINYL ALCOHOL 15 ML BOTTLE EACHEYE SCH ×4 (09:00→21:48)
[2016-09-29] MEDS: MULTIVITAMINS,THERAGRAN 1 UDTAB TABLET GT SCH (09:00)
[2016-09-29] MEDS: HYDROGEN PEROXIDE 480 ML BOTTLE TP SCH ×2 (09:00→21:49)
[2016-09-29] MEDS: ACIDOPHILUS/BULGARICUS 1 EACH TAB.CHEW GT SCH (09:00)
[2016-09-29] MEDS: POLYETHYLENE GLYCOL 3350 17 GM POWD.PACK GT SCH (09:00)
[2016-09-29] MEDS: ASCORBIC ACID 500 MG TABLET GT SCH (09:00)
[2016-09-29] MEDS: HEPARIN SODIUM, PORCINE 5000 UNITS/1 ML VIAL SQ SCH ×2 (09:00→21:49)
[2016-09-29] MEDS: GLYCOPYRROLATE 1 MG TABLET GT SCH ×2 (09:00→21:48)
[2016-09-29] MEDS: POTASSIUM CHLORIDE 20 MEQ/15 ML ML GT SCH (09:00)
[2016-09-29] MEDS: ZINC OXIDE 30 GM TUBE TP SCH ×4 (09:00→21:49)
[2016-09-29] MEDS: AMIODARONE HCL 200 MG TABLET GT SCH (09:00)
[2016-09-29] MEDS: CLOTRIMAZOLE/BETAMETASONE DIPROPIONATE 15 GM TUBE TP SCH ×2 (09:00→21:49)
--- NOTE | 2016-09-29 10:00 | NUR ---
Notified [facility] pharmacy regarding Vanco trough level 18, BUN 36, Creat 1.6 with order to continue same dose and repeat Vanco trough, BUN, Creat on Sunday. All orders noted and carried out.
--- NOTE | 2016-09-29 14:06 | NUR ---
IDT meeting held , reviewed current meds, labs and treatment orders. No new order given, Pharmacy asking for Vancomycin stop date, CLINTON Ricks notified with order to give Vancomycin for a total of 7 days. All orders noted and carried out.
[2016-09-29] MEDS: VANCOMYCIN 1 GM in IV D5W 250 ML IV SCH (19:48)
[2016-09-29 19:58] VITALS: BP 111/66
[2016-09-29] MEDS: FINASTERIDE (5 MG) 5 MG TABLET GT SCH (20:00)
[2016-09-30] MEDS: IPRATROPIUM NEB FS 0.5 MG/2.5 ML AMPUL.NEB NEB SCH ×4 (02:28→19:32)
[2016-09-30] MEDS: ALBUTEROL FS 2.5 MG/3 ML VIAL.NEB NEB SCH ×4 (02:28→19:32)
[2016-09-30] MEDS: BACLOFEN (10 MG) 10 MG TABLET GT SCH ×3 (05:00→20:43)
[2016-09-30] MEDS: OMEPRAZOLE 20 MG GT SCH (06:34)
[2016-09-30] MEDS: LEVOTHYROXINE SODIUM 150 MCG TABLET GT SCH (06:34)
[2016-09-30 07:46] VITALS: BP 125/77
[2016-09-30] MEDS: HEPARIN SODIUM, PORCINE 5000 UNITS/1 ML VIAL SQ SCH ×2 (09:00→20:44)
[2016-09-30] MEDS: POLYVINYL ALCOHOL 15 ML BOTTLE EACHEYE SCH ×4 (09:00→20:43)
[2016-09-30] MEDS: MULTIVITAMINS,THERAGRAN 1 UDTAB TABLET GT SCH (09:00)
[2016-09-30] MEDS: HYDROGEN PEROXIDE 480 ML BOTTLE TP SCH ×2 (09:00→20:44)
[2016-09-30] MEDS: POLYETHYLENE GLYCOL 3350 17 GM POWD.PACK GT SCH (09:00)
[2016-09-30] MEDS: ACIDOPHILUS/BULGARICUS 1 EACH TAB.CHEW GT SCH (09:00)
[2016-09-30] MEDS: AMIODARONE HCL 200 MG TABLET GT SCH (09:00)
[2016-09-30] MEDS: ASCORBIC ACID 500 MG TABLET GT SCH (09:00)
[2016-09-30] MEDS: ZINC OXIDE 30 GM TUBE TP SCH ×4 (09:00→20:44)
[2016-09-30] MEDS: GLYCOPYRROLATE 1 MG TABLET GT SCH ×2 (09:00→20:43)
[2016-09-30] MEDS: POTASSIUM CHLORIDE 20 MEQ/15 ML ML GT SCH (09:00)
--- NOTE | 2016-09-30 11:04 | NUR ---
Received an order from Dr. David for a repeat CXRY and CBC on Sunday for F/U, S/P ATB. notified.
[2016-09-30 19:45] VITALS: BP 116/64
[2016-09-30] MEDS: FINASTERIDE (5 MG) 5 MG TABLET GT SCH (20:43)
[2016-10-01] MEDS: IPRATROPIUM NEB FS 0.5 MG/2.5 ML AMPUL.NEB NEB SCH ×4 (01:22→19:22)
[2016-10-01] MEDS: ALBUTEROL FS 2.5 MG/3 ML VIAL.NEB NEB SCH ×4 (01:22→19:22)
[2016-10-01] MEDS: OMEPRAZOLE 20 MG GT SCH (05:27)
[2016-10-01] MEDS: BACLOFEN (10 MG) 10 MG TABLET GT SCH ×3 (05:27→20:38)
[2016-10-01] MEDS: LEVOTHYROXINE SODIUM 150 MCG TABLET GT SCH (05:27)
[2016-10-01 08:28] VITALS: BP 104/63
[2016-10-01] MEDS: POLYVINYL ALCOHOL 15 ML BOTTLE EACHEYE SCH ×4 (09:22→20:38)
[2016-10-01] MEDS: AMIODARONE HCL 200 MG TABLET GT SCH (09:23)
[2016-10-01] MEDS: GLYCOPYRROLATE 1 MG TABLET GT SCH ×2 (09:24→20:38)
[2016-10-01] MEDS: ACIDOPHILUS/BULGARICUS 1 EACH TAB.CHEW GT SCH (09:24)
[2016-10-01] MEDS: POLYETHYLENE GLYCOL 3350 17 GM POWD.PACK GT SCH (09:25)
[2016-10-01] MEDS: POTASSIUM CHLORIDE 20 MEQ/15 ML ML GT SCH (09:26)
[2016-10-01] MEDS: ASCORBIC ACID 500 MG TABLET GT SCH (09:26)
[2016-10-01] MEDS: MULTIVITAMINS,THERAGRAN 1 UDTAB TABLET GT SCH (09:26)
[2016-10-01] MEDS: ERGOCALCIFEROL (VITAMIN D2) 8,000 UNIT/ML GT SCH (09:27)
[2016-10-01] MEDS: HEPARIN SODIUM, PORCINE 5000 UNITS/1 ML VIAL SQ SCH ×2 (09:28→20:39)
[2016-10-01] MEDS: HYDROGEN PEROXIDE 480 ML BOTTLE TP SCH ×2 (09:30→20:39)
[2016-10-01] MEDS: ZINC OXIDE 30 GM TUBE TP SCH ×5 (09:31→21:00)
[2016-10-01] MEDS: RENAL NOVASOURCE 1,000 ML BOTTLE GT PRN (17:30)
--- NOTE | 2016-10-01 19:29 | NUR ---
Seen by Dr. Paniagua and gave an order for UA on 10/02/16. aware
[2016-10-01 19:56] VITALS: BP 112/78
[2016-10-01] MEDS: FINASTERIDE (5 MG) 5 MG TABLET GT SCH (20:38)
[2016-10-01] MEDS: CLOTRIMAZOLE/BETAMETASONE DIPROPIONATE 15 GM TUBE TP SCH (21:00)
[2016-10-02] MEDS: ALBUTEROL FS 2.5 MG/3 ML VIAL.NEB NEB SCH ×4 (00:47→20:03)
[2016-10-02] MEDS: IPRATROPIUM NEB FS 0.5 MG/2.5 ML AMPUL.NEB NEB SCH ×4 (00:47→20:03)
[2016-10-02 04:59] LABS: APPEARANCE,URINE CLEAR (CLEAR); BILIRUBIN,URINE NEGATIVE (NEGATIVE); BLOOD, URINE 1+ Ery/uL (NEGATIVE); COLOR,URINE YELLOW (YELLOW); KETONES,URINE NEGATIVE (NEGATIVE); LEUKOCYTE ESTERASE ,URINE 3+ (NEGATIVE); NITRITE, URINE NEGATIVE (NEGATIVE); PROTEIN,URINE NEGATIVE (NEGATIVE); UGLUCOSE NEGATIVE (NEGATIVE); UROBILINOGEN,URINE 0.2 EU/dL (0.2)
[2016-10-02 05:36] LABS: BACTERIA,URINE None seen /HPF (None Seen); RBC,URINE 0-2 /HPF (0-2); SQUAMOUS EPITHELIAL CELL,UR Few /HPF (None Seen); YEAST,URINE Many /HPF (None Seen)
[2016-10-02] MEDS: LEVOTHYROXINE SODIUM 150 MCG TABLET GT SCH (05:37)
[2016-10-02] MEDS: OMEPRAZOLE 20 MG GT SCH (05:37)
[2016-10-02] MEDS: BACLOFEN (10 MG) 10 MG TABLET GT SCH ×3 (05:37→21:11)
[2016-10-02 07:08] LABS: BASOPHILS % (AUTO) 0.3 % (0.0-2.0); EOSINOPHILS # (AUTO) 0.1 /CMM (0.0-0.7); EOSINOPHILS % (AUTO) 0.4 % (0.0-6.0); HEMATOCRIT 37 % (39-51); HEMOGLOBIN 11.7 g/dL (13.5-17.5); LYMPHOCYTES # (AUTO) 0.8 /CMM (0.8-4.8); LYMPHOCYTES % (AUTO) 4.8 % (20.0-44.0); MEAN CORPUSCULAR HEMOGLOBIN 24 PG (26.0-33.0); MEAN CORPUSCULAR HGB CONC 32 g/dl (31.0-36.0); MEAN CORPUSCULAR VOLUME 75 fL (80-96); MONOCYTES # (AUTO) 0.9 /CMM (0.1-1.30); MONOCYTES % (AUTO) 4.9 % (2.0-12.0); NEUTROPHILS # (AUTO) 15.6 /CMM (1.8-8.9); NEUTROPHILS % (AUTO) 89.6 % (43.0-81.0); PLATELET COUNT (AUTO) 315 /CMM (150-450); RDW COEFFICIENT OF VARIATION 18.3 (11.5-15.0); RED BLOOD CELL COUNT(AUTO) 4.98 MIL/uL (4.5-6.0); WHITE BLOOD COUNT (AUTO) 17.4 K/uL (4.3-11.0)
[2016-10-02 07:45] VITALS: BP 114/77
[2016-10-02 08:13] LABS: BAND % (MANUAL) 3 % (0.0-5.0); EOSINOPHILS % (MANUAL) 2 % (0-4); LYMPHOCYTES % (MANUAL) 6 % (16-48); MONOCYTES % (MANUAL) 8 % (0-11.0); NEUTROPHILS % (MANUAL) 81 (42-76)
[2016-10-02] MEDS: HYDROGEN PEROXIDE 480 ML BOTTLE TP SCH ×2 (09:00→21:12)
[2016-10-02] MEDS: ZINC OXIDE 30 GM TUBE TP SCH ×6 (09:00→21:12)
[2016-10-02] MEDS: POLYVINYL ALCOHOL 15 ML BOTTLE EACHEYE SCH ×4 (09:08→21:11)
[2016-10-02] MEDS: ACIDOPHILUS/BULGARICUS 1 EACH TAB.CHEW GT SCH (09:09)
[2016-10-02] MEDS: POLYETHYLENE GLYCOL 3350 17 GM POWD.PACK GT SCH (09:09)
[2016-10-02] MEDS: AMIODARONE HCL 200 MG TABLET GT SCH (09:09)
[2016-10-02] MEDS: POTASSIUM CHLORIDE 20 MEQ/15 ML ML GT SCH (09:09)
[2016-10-02] MEDS: ASCORBIC ACID 500 MG TABLET GT SCH (09:09)
[2016-10-02] MEDS: MULTIVITAMINS,THERAGRAN 1 UDTAB TABLET GT SCH (09:09)
[2016-10-02] MEDS: GLYCOPYRROLATE 1 MG TABLET GT SCH ×2 (09:09→21:11)
[2016-10-02] MEDS: HEPARIN SODIUM, PORCINE 5000 UNITS/1 ML VIAL SQ SCH ×2 (09:11→21:12)
--- NOTE | 2016-10-02 10:31 | NUR ---
Seen by Dr. David. He is aware of lab results. Received order to do CBC in 1 week.
[2016-10-02] MEDS: CLOTRIMAZOLE/BETAMETASONE DIPROPIONATE 15 GM TUBE TP SCH ×2 (17:51→21:12)
[2016-10-02 20:00] VITALS: BP 116/75
[2016-10-02] MEDS: FINASTERIDE (5 MG) 5 MG TABLET GT SCH (21:00)
[2016-10-02] MEDS: RENAL NOVASOURCE 1,000 ML BOTTLE GT PRN (23:16)
[2016-10-03] MEDS: ALBUTEROL FS 2.5 MG/3 ML VIAL.NEB NEB SCH ×4 (01:47→19:30)
[2016-10-03] MEDS: IPRATROPIUM NEB FS 0.5 MG/2.5 ML AMPUL.NEB NEB SCH ×4 (01:47→19:30)
[2016-10-03] MEDS: LEVOTHYROXINE SODIUM 150 MCG TABLET GT SCH (05:27)
[2016-10-03] MEDS: BACLOFEN (10 MG) 10 MG TABLET GT SCH ×3 (05:27→21:32)
[2016-10-03] MEDS: OMEPRAZOLE 20 MG GT SCH (05:27)
[2016-10-03 08:04] VITALS: BP 125/82
[2016-10-03] MEDS: AMIODARONE HCL 200 MG TABLET GT SCH (09:25)
[2016-10-03] MEDS: POLYVINYL ALCOHOL 15 ML BOTTLE EACHEYE SCH ×4 (09:36→21:32)
[2016-10-03] MEDS: POTASSIUM CHLORIDE 20 MEQ/15 ML ML GT SCH (09:36)
[2016-10-03] MEDS: POLYETHYLENE GLYCOL 3350 17 GM POWD.PACK GT SCH (09:36)
[2016-10-03] MEDS: ACIDOPHILUS/BULGARICUS 1 EACH TAB.CHEW GT SCH (09:36)
[2016-10-03] MEDS: ASCORBIC ACID 500 MG TABLET GT SCH (09:36)
[2016-10-03] MEDS: GLYCOPYRROLATE 1 MG TABLET GT SCH ×2 (09:36→21:32)
[2016-10-03] MEDS: MULTIVITAMINS,THERAGRAN 1 UDTAB TABLET GT SCH (09:36)
[2016-10-03] MEDS: HEPARIN SODIUM, PORCINE 5000 UNITS/1 ML VIAL SQ SCH ×2 (09:37→21:33)
[2016-10-03] MEDS: CLOTRIMAZOLE/BETAMETASONE DIPROPIONATE 15 GM TUBE TP SCH ×2 (09:37→21:33)
[2016-10-03] MEDS: ZINC OXIDE 30 GM TUBE TP SCH ×6 (09:37→21:33)
[2016-10-03] MEDS: HYDROGEN PEROXIDE 480 ML BOTTLE TP SCH ×2 (09:37→21:33)
[2016-10-03 19:45] VITALS: BP 117/72
[2016-10-03] MEDS: FINASTERIDE (5 MG) 5 MG TABLET GT SCH (20:00)
[2016-10-04] MEDS: ALBUTEROL FS 2.5 MG/3 ML VIAL.NEB NEB SCH ×4 (00:52→19:30)
[2016-10-04] MEDS: IPRATROPIUM NEB FS 0.5 MG/2.5 ML AMPUL.NEB NEB SCH ×4 (00:52→19:30)
[2016-10-04] MEDS: OMEPRAZOLE 20 MG GT SCH (05:42)
[2016-10-04] MEDS: BACLOFEN (10 MG) 10 MG TABLET GT SCH ×3 (05:42→20:06)
[2016-10-04] MEDS: LEVOTHYROXINE SODIUM 150 MCG TABLET GT SCH (05:43)
[2016-10-04 07:48] VITALS: BP 112/79
[2016-10-04] MEDS: POLYVINYL ALCOHOL 15 ML BOTTLE EACHEYE SCH ×4 (09:26→20:06)
[2016-10-04] MEDS: MULTIVITAMINS,THERAGRAN 1 UDTAB TABLET GT SCH (09:27)
[2016-10-04] MEDS: CLOTRIMAZOLE/BETAMETASONE DIPROPIONATE 15 GM TUBE TP SCH ×2 (09:27→20:07)
[2016-10-04] MEDS: HEPARIN SODIUM, PORCINE 5000 UNITS/1 ML VIAL SQ SCH ×2 (09:27→20:07)
[2016-10-04] MEDS: AMIODARONE HCL 200 MG TABLET GT SCH (09:27)
[2016-10-04] MEDS: ACIDOPHILUS/BULGARICUS 1 EACH TAB.CHEW GT SCH (09:27)
[2016-10-04] MEDS: HYDROGEN PEROXIDE 480 ML BOTTLE TP SCH ×2 (09:27→20:07)
[2016-10-04] MEDS: GLYCOPYRROLATE 1 MG TABLET GT SCH ×2 (09:27→20:06)
[2016-10-04] MEDS: POLYETHYLENE GLYCOL 3350 17 GM POWD.PACK GT SCH (09:27)
[2016-10-04] MEDS: POTASSIUM CHLORIDE 20 MEQ/15 ML ML GT SCH (09:27)
[2016-10-04] MEDS: ASCORBIC ACID 500 MG TABLET GT SCH (09:27)
[2016-10-04] MEDS: ZINC OXIDE 30 GM TUBE TP SCH ×6 (09:28→20:07)
[2016-10-04] MEDS: FLUCONAZOLE (100 MG) 100 MG TABLET GT SCH (14:00)
--- NOTE | 2016-10-04 15:38 | NUR ---
Notified Millicent MAE ID regarding result of preliminary urine result with new order of Diflucan 100mg tab via GT X 7days for UTI/Yeast infection orders noted and carried out. Fanny Stephens made aware of the new orders.
[2016-10-04 20:03] VITALS: BP 113/73
[2016-10-04] MEDS: FINASTERIDE (5 MG) 5 MG TABLET GT SCH (20:06)
[2016-10-04] MEDS: MAGNESIUM HYDROXIDE 30 ML UDC GT PRN (20:08)
[2016-10-04] MEDS: ACETAMINOPHEN 650 MG/20 ML UDC- FOR SA PATIENTS ONLY GT PRN (20:09)
[2016-10-05] MEDS: ALBUTEROL FS 2.5 MG/3 ML VIAL.NEB NEB SCH ×4 (01:59→20:02)
[2016-10-05] MEDS: IPRATROPIUM NEB FS 0.5 MG/2.5 ML AMPUL.NEB NEB SCH ×4 (01:59→20:02)
[2016-10-05] MEDS: RENAL NOVASOURCE 1,000 ML BOTTLE GT PRN (05:20)
[2016-10-05] MEDS: BACLOFEN (10 MG) 10 MG TABLET GT SCH ×3 (05:20→20:27)
[2016-10-05] MEDS: LEVOTHYROXINE SODIUM 150 MCG TABLET GT SCH (05:20)
[2016-10-05] MEDS: OMEPRAZOLE 20 MG GT SCH (05:20)
[2016-10-05 07:46] VITALS: BP 100/63
[2016-10-05] MEDS: ACIDOPHILUS/BULGARICUS 1 EACH TAB.CHEW GT SCH (09:00)
[2016-10-05] MEDS: HYDROGEN PEROXIDE 480 ML BOTTLE TP SCH ×2 (09:00→20:27)
[2016-10-05] MEDS: HEPARIN SODIUM, PORCINE 5000 UNITS/1 ML VIAL SQ SCH ×2 (09:00→20:27)
[2016-10-05] MEDS: POTASSIUM CHLORIDE 20 MEQ/15 ML ML GT SCH (09:00)
[2016-10-05] MEDS: ASCORBIC ACID 500 MG TABLET GT SCH (09:00)
[2016-10-05] MEDS: ZINC OXIDE 30 GM TUBE TP SCH ×6 (09:00→20:27)
[2016-10-05] MEDS: GLYCOPYRROLATE 1 MG TABLET GT SCH ×2 (09:00→20:27)
[2016-10-05] MEDS: POLYETHYLENE GLYCOL 3350 17 GM POWD.PACK GT SCH (09:00)
[2016-10-05] MEDS: FLUCONAZOLE (100 MG) 100 MG TABLET GT SCH (09:00)
[2016-10-05] MEDS: MULTIVITAMINS,THERAGRAN 1 UDTAB TABLET GT SCH (09:00)
[2016-10-05] MEDS: CLOTRIMAZOLE/BETAMETASONE DIPROPIONATE 15 GM TUBE TP SCH ×2 (09:00→20:27)
[2016-10-05] MEDS: POLYVINYL ALCOHOL 15 ML BOTTLE EACHEYE SCH ×4 (09:59→20:27)
[2016-10-05] MEDS: AMIODARONE HCL 200 MG TABLET GT SCH (10:00)
[2016-10-05] MEDS: ACETAMINOPHEN 650 MG/20 ML UDC- FOR SA PATIENTS ONLY GT PRN (18:00)
--- NOTE | 2016-10-05 19:18 | NUR ---
Seen and examined by Vivian Posada NP no new order given at this time.
[2016-10-05 20:00] VITALS: BP 118/72
[2016-10-05] MEDS: FINASTERIDE (5 MG) 5 MG TABLET GT SCH (20:27)
--- NOTE | 2016-10-05 21:00 | NUR ---
Pt made aware of chest x ray result,Cbc and UA result.Pt already on antibiotic for yeast in the urine.Pt also aware of repeat CBC on Sunday10/09/15.
[2016-10-06] MEDS: IPRATROPIUM NEB FS 0.5 MG/2.5 ML AMPUL.NEB NEB SCH ×4 (01:28→20:20)
[2016-10-06] MEDS: ALBUTEROL FS 2.5 MG/3 ML VIAL.NEB NEB SCH ×4 (01:28→20:20)
[2016-10-06] MEDS: BACLOFEN (10 MG) 10 MG TABLET GT SCH ×3 (04:00→20:26)
[2016-10-06] MEDS: MAGNESIUM HYDROXIDE 30 ML UDC GT PRN (04:00)
[2016-10-06] MEDS: OMEPRAZOLE 20 MG GT SCH (05:23)
[2016-10-06] MEDS: LEVOTHYROXINE SODIUM 150 MCG TABLET GT SCH (05:23)
[2016-10-06] MEDS: RENAL NOVASOURCE 1,000 ML BOTTLE GT PRN (05:23)
[2016-10-06 07:43] VITALS: BP 107/60
[2016-10-06] MEDS: POTASSIUM CHLORIDE 20 MEQ/15 ML ML GT SCH (09:22)
[2016-10-06] MEDS: POLYVINYL ALCOHOL 15 ML BOTTLE EACHEYE SCH ×4 (09:22→20:26)
[2016-10-06] MEDS: GLYCOPYRROLATE 1 MG TABLET GT SCH ×2 (09:22→20:26)
[2016-10-06] MEDS: POLYETHYLENE GLYCOL 3350 17 GM POWD.PACK GT SCH (09:22)
[2016-10-06] MEDS: ASCORBIC ACID 500 MG TABLET GT SCH (09:22)
[2016-10-06] MEDS: AMIODARONE HCL 200 MG TABLET GT SCH (09:22)
[2016-10-06] MEDS: ACIDOPHILUS/BULGARICUS 1 EACH TAB.CHEW GT SCH (09:22)
[2016-10-06] MEDS: FLUCONAZOLE (100 MG) 100 MG TABLET GT SCH (09:22)
[2016-10-06] MEDS: MULTIVITAMINS,THERAGRAN 1 UDTAB TABLET GT SCH (09:22)
[2016-10-06] MEDS: ZINC OXIDE 30 GM TUBE TP SCH ×6 (09:23→20:27)
[2016-10-06] MEDS: HYDROGEN PEROXIDE 480 ML BOTTLE TP SCH ×2 (09:23→20:26)
[2016-10-06] MEDS: CLOTRIMAZOLE/BETAMETASONE DIPROPIONATE 15 GM TUBE TP SCH ×2 (09:23→20:26)
[2016-10-06] MEDS: HEPARIN SODIUM, PORCINE 5000 UNITS/1 ML VIAL SQ SCH ×2 (09:23→20:26)
[2016-10-06] MEDS: FINASTERIDE (5 MG) 5 MG TABLET GT SCH (20:26)
[2016-10-06 21:08] VITALS: BP 129/78
[2016-10-07] MEDS: ALBUTEROL FS 2.5 MG/3 ML VIAL.NEB NEB SCH ×4 (01:20→20:20)
[2016-10-07] MEDS: IPRATROPIUM NEB FS 0.5 MG/2.5 ML AMPUL.NEB NEB SCH ×4 (01:20→20:20)
[2016-10-07] MEDS: BACLOFEN (10 MG) 10 MG TABLET GT SCH ×3 (05:17→20:24)
[2016-10-07] MEDS: OMEPRAZOLE 20 MG GT SCH (05:17)
[2016-10-07] MEDS: LEVOTHYROXINE SODIUM 150 MCG TABLET GT SCH (05:17)
[2016-10-07] MEDS: RENAL NOVASOURCE 1,000 ML BOTTLE GT PRN (05:18)
[2016-10-07 07:59] VITALS: BP 121/80
[2016-10-07] MEDS: ZINC OXIDE 30 GM TUBE TP SCH ×6 (09:00→20:25)
[2016-10-07] MEDS: ACIDOPHILUS/BULGARICUS 1 EACH TAB.CHEW GT SCH (09:00)
[2016-10-07] MEDS: CLOTRIMAZOLE/BETAMETASONE DIPROPIONATE 15 GM TUBE TP SCH ×2 (09:00→20:25)
[2016-10-07] MEDS: HYDROGEN PEROXIDE 480 ML BOTTLE TP SCH ×2 (09:00→20:24)
[2016-10-07] MEDS: FLUCONAZOLE (100 MG) 100 MG TABLET GT SCH (09:00)
[2016-10-07] MEDS: POLYVINYL ALCOHOL 15 ML BOTTLE EACHEYE SCH ×4 (09:00→20:24)
[2016-10-07] MEDS: ASCORBIC ACID 500 MG TABLET GT SCH (09:00)
[2016-10-07] MEDS: HEPARIN SODIUM, PORCINE 5000 UNITS/1 ML VIAL SQ SCH ×2 (09:00→20:24)
[2016-10-07] MEDS: AMIODARONE HCL 200 MG TABLET GT SCH (09:00)
[2016-10-07] MEDS: GLYCOPYRROLATE 1 MG TABLET GT SCH ×2 (09:00→20:24)
[2016-10-07] MEDS: MULTIVITAMINS,THERAGRAN 1 UDTAB TABLET GT SCH (09:00)
[2016-10-07] MEDS: POTASSIUM CHLORIDE 20 MEQ/15 ML ML GT SCH (09:00)
[2016-10-07] MEDS: POLYETHYLENE GLYCOL 3350 17 GM POWD.PACK GT SCH (09:00)
[2016-10-07 20:10] VITALS: BP 108/67
[2016-10-07] MEDS: FINASTERIDE (5 MG) 5 MG TABLET GT SCH (20:24)
[2016-10-08] MEDS: ALBUTEROL FS 2.5 MG/3 ML VIAL.NEB NEB SCH ×4 (02:33→19:51)
[2016-10-08] MEDS: IPRATROPIUM NEB FS 0.5 MG/2.5 ML AMPUL.NEB NEB SCH ×4 (02:33→19:51)
[2016-10-08] MEDS: BACLOFEN (10 MG) 10 MG TABLET GT SCH ×3 (05:22→20:06)
[2016-10-08] MEDS: OMEPRAZOLE 20 MG GT SCH (05:22)
[2016-10-08] MEDS: RENAL NOVASOURCE 1,000 ML BOTTLE GT PRN (05:22)
[2016-10-08] MEDS: LEVOTHYROXINE SODIUM 150 MCG TABLET GT SCH (05:22)
[2016-10-08 07:51] VITALS: BP 103/67
[2016-10-08] MEDS: ERGOCALCIFEROL (VITAMIN D2) 8,000 UNIT/ML GT SCH (09:00)
[2016-10-08] MEDS: ASCORBIC ACID 500 MG TABLET GT SCH (09:00)
[2016-10-08] MEDS: ZINC OXIDE 30 GM TUBE TP SCH ×6 (09:00→20:07)
[2016-10-08] MEDS: HEPARIN SODIUM, PORCINE 5000 UNITS/1 ML VIAL SQ SCH ×2 (09:00→20:06)
[2016-10-08] MEDS: POLYVINYL ALCOHOL 15 ML BOTTLE EACHEYE SCH ×4 (09:00→20:06)
[2016-10-08] MEDS: GLYCOPYRROLATE 1 MG TABLET GT SCH ×2 (09:00→20:06)
[2016-10-08] MEDS: ACIDOPHILUS/BULGARICUS 1 EACH TAB.CHEW GT SCH (09:00)
[2016-10-08] MEDS: POLYETHYLENE GLYCOL 3350 17 GM POWD.PACK GT SCH (09:00)
[2016-10-08] MEDS: FLUCONAZOLE (100 MG) 100 MG TABLET GT SCH (09:00)
[2016-10-08] MEDS: MULTIVITAMINS,THERAGRAN 1 UDTAB TABLET GT SCH (09:00)
[2016-10-08] MEDS: AMIODARONE HCL 200 MG TABLET GT SCH (09:00)
[2016-10-08] MEDS: CLOTRIMAZOLE/BETAMETASONE DIPROPIONATE 15 GM TUBE TP SCH ×2 (09:00→20:06)
[2016-10-08] MEDS: POTASSIUM CHLORIDE 20 MEQ/15 ML ML GT SCH (09:00)
[2016-10-08] MEDS: HYDROGEN PEROXIDE 480 ML BOTTLE TP SCH ×2 (09:00→20:06)
[2016-10-08] MEDS: FINASTERIDE (5 MG) 5 MG TABLET GT SCH (20:06)
[2016-10-08 20:25] VITALS: BP 106/66
[2016-10-09] MEDS: IPRATROPIUM NEB FS 0.5 MG/2.5 ML AMPUL.NEB NEB SCH ×4 (01:54→20:26)
[2016-10-09] MEDS: ALBUTEROL FS 2.5 MG/3 ML VIAL.NEB NEB SCH ×4 (01:54→20:26)
[2016-10-09] MEDS: LEVOTHYROXINE SODIUM 150 MCG TABLET GT SCH (05:07)
[2016-10-09] MEDS: BACLOFEN (10 MG) 10 MG TABLET GT SCH ×3 (05:07→20:19)
[2016-10-09] MEDS: OMEPRAZOLE 20 MG GT SCH (05:07)
[2016-10-09 07:26] LABS: BASOPHILS % (AUTO) 0.3 % (0.0-2.0); EOSINOPHILS # (AUTO) 0.3 /CMM (0.0-0.7); HEMATOCRIT 36 % (39-51); HEMOGLOBIN 11.3 g/dL (13.5-17.5); LYMPHOCYTES # (AUTO) 1.4 /CMM (0.8-4.8); LYMPHOCYTES % (AUTO) 10.2 % (20.0-44.0); MEAN CORPUSCULAR HEMOGLOBIN 24 PG (26.0-33.0); MEAN CORPUSCULAR HGB CONC 31 g/dl (31.0-36.0); MEAN CORPUSCULAR VOLUME 75 fL (80-96); MONOCYTES # (AUTO) 1.6 /CMM (0.1-1.30); MONOCYTES % (AUTO) 11.6 % (2.0-12.0); NEUTROPHILS # (AUTO) 10.4 /CMM (1.8-8.9); NEUTROPHILS % (AUTO) 75.9 % (43.0-81.0); PLATELET COUNT (AUTO) 328 /CMM (150-450); RDW COEFFICIENT OF VARIATION 18.6 (11.5-15.0); RED BLOOD CELL COUNT(AUTO) 4.79 MIL/uL (4.5-6.0); WHITE BLOOD COUNT (AUTO) 13.7 K/uL (4.3-11.0)
[2016-10-09 07:42] VITALS: BP 106/69
[2016-10-09] MEDS: HEPARIN SODIUM, PORCINE 5000 UNITS/1 ML VIAL SQ SCH ×2 (08:27→20:19)
[2016-10-09] MEDS: POLYVINYL ALCOHOL 15 ML BOTTLE EACHEYE SCH ×4 (08:28→20:19)
[2016-10-09] MEDS: MULTIVITAMINS,THERAGRAN 1 UDTAB TABLET GT SCH (08:28)
[2016-10-09] MEDS: POTASSIUM CHLORIDE 20 MEQ/15 ML ML GT SCH (08:28)
[2016-10-09] MEDS: ACIDOPHILUS/BULGARICUS 1 EACH TAB.CHEW GT SCH (08:28)
[2016-10-09] MEDS: AMIODARONE HCL 200 MG TABLET GT SCH (08:28)
[2016-10-09] MEDS: GLYCOPYRROLATE 1 MG TABLET GT SCH ×2 (08:28→20:19)
[2016-10-09] MEDS: FLUCONAZOLE (100 MG) 100 MG TABLET GT SCH (08:28)
[2016-10-09] MEDS: POLYETHYLENE GLYCOL 3350 17 GM POWD.PACK GT SCH (08:28)
[2016-10-09] MEDS: ASCORBIC ACID 500 MG TABLET GT SCH (08:28)
[2016-10-09] MEDS: HYDROGEN PEROXIDE 480 ML BOTTLE TP SCH ×2 (08:31→20:19)
[2016-10-09] MEDS: ZINC OXIDE 30 GM TUBE TP SCH ×6 (08:31→20:20)
[2016-10-09] MEDS: CLOTRIMAZOLE/BETAMETASONE DIPROPIONATE 15 GM TUBE TP SCH ×2 (08:31→20:19)
[2016-10-09] MEDS: RENAL NOVASOURCE 1,000 ML BOTTLE GT PRN (08:43)
[2016-10-09 09:07] LABS: EOSINOPHILS % (MANUAL) 1 % (0-4); LYMPHOCYTES % (MANUAL) 13 % (16-48); MONOCYTES % (MANUAL) 6 % (0-11.0); NEUTROPHILS % (MANUAL) 80 (42-76)
--- NOTE | 2016-10-09 15:53 | NUR ---
Seen by Dr. David. He is aware of CBC result. is aware too
[2016-10-09 20:00] VITALS: BP 124/70
[2016-10-09] MEDS: FINASTERIDE (5 MG) 5 MG TABLET GT SCH (20:18)
[2016-10-10] MEDS: ALBUTEROL FS 2.5 MG/3 ML VIAL.NEB NEB SCH ×4 (02:29→20:01)
[2016-10-10] MEDS: IPRATROPIUM NEB FS 0.5 MG/2.5 ML AMPUL.NEB NEB SCH ×4 (02:29→20:01)
[2016-10-10] MEDS: LEVOTHYROXINE SODIUM 150 MCG TABLET GT SCH (05:17)
[2016-10-10] MEDS: OMEPRAZOLE 20 MG GT SCH (05:17)
[2016-10-10] MEDS: BACLOFEN (10 MG) 10 MG TABLET GT SCH ×3 (05:17→20:08)
[2016-10-10 08:06] VITALS: BP 133/77
[2016-10-10] MEDS: POLYVINYL ALCOHOL 15 ML BOTTLE EACHEYE SCH ×4 (09:00→20:07)
[2016-10-10] MEDS: POTASSIUM CHLORIDE 20 MEQ/15 ML ML GT SCH (09:00)
[2016-10-10] MEDS: ACIDOPHILUS/BULGARICUS 1 EACH TAB.CHEW GT SCH (09:00)
[2016-10-10] MEDS: ASCORBIC ACID 500 MG TABLET GT SCH (09:00)
[2016-10-10] MEDS: HYDROGEN PEROXIDE 480 ML BOTTLE TP SCH ×2 (09:00→20:08)
[2016-10-10] MEDS: POLYETHYLENE GLYCOL 3350 17 GM POWD.PACK GT SCH (09:00)
[2016-10-10] MEDS: HEPARIN SODIUM, PORCINE 5000 UNITS/1 ML VIAL SQ SCH ×2 (09:00→20:08)
[2016-10-10] MEDS: FLUCONAZOLE (100 MG) 100 MG TABLET GT SCH (09:00)
[2016-10-10] MEDS: GLYCOPYRROLATE 1 MG TABLET GT SCH ×2 (09:00→20:07)
[2016-10-10] MEDS: AMIODARONE HCL 200 MG TABLET GT SCH (09:00)
[2016-10-10] MEDS: ZINC OXIDE 30 GM TUBE TP SCH ×6 (09:00→20:08)
[2016-10-10] MEDS: MULTIVITAMINS,THERAGRAN 1 UDTAB TABLET GT SCH (09:00)
[2016-10-10] MEDS: CLOTRIMAZOLE/BETAMETASONE DIPROPIONATE 15 GM TUBE TP SCH ×2 (09:00→20:08)
--- NOTE | 2016-10-10 11:24 | NUR ---
Social Service Section of [facility] (1st quarter) completed. Resident is uncommunicative. Resident's , Fanny is his conservator and is involved in his care. Discharge to a lower level of care when medically appropriate.
[2016-10-10] MEDS: RENAL NOVASOURCE 1,000 ML BOTTLE GT PRN (16:33)
[2016-10-10 19:48] VITALS: BP 114/72
[2016-10-10] MEDS: FINASTERIDE (5 MG) 5 MG TABLET GT SCH (20:07)
[2016-10-11] MEDS: IPRATROPIUM NEB FS 0.5 MG/2.5 ML AMPUL.NEB NEB SCH ×4 (00:59→20:00)
[2016-10-11] MEDS: ALBUTEROL FS 2.5 MG/3 ML VIAL.NEB NEB SCH ×4 (00:59→20:00)
[2016-10-11] MEDS: LEVOTHYROXINE SODIUM 150 MCG TABLET GT SCH (05:39)
[2016-10-11] MEDS: OMEPRAZOLE 20 MG GT SCH (05:39)
[2016-10-11] MEDS: BACLOFEN (10 MG) 10 MG TABLET GT SCH ×3 (05:39→20:26)
[2016-10-11 07:50] VITALS: BP 107/72
[2016-10-11] MEDS: POTASSIUM CHLORIDE 20 MEQ/15 ML ML GT SCH (08:49)
[2016-10-11] MEDS: POLYETHYLENE GLYCOL 3350 17 GM POWD.PACK GT SCH (08:49)
[2016-10-11] MEDS: ASCORBIC ACID 500 MG TABLET GT SCH (08:49)
[2016-10-11] MEDS: ACIDOPHILUS/BULGARICUS 1 EACH TAB.CHEW GT SCH (08:49)
[2016-10-11] MEDS: MULTIVITAMINS,THERAGRAN 1 UDTAB TABLET GT SCH (08:49)
[2016-10-11] MEDS: GLYCOPYRROLATE 1 MG TABLET GT SCH ×2 (08:49→20:26)
[2016-10-11] MEDS: POLYVINYL ALCOHOL 15 ML BOTTLE EACHEYE SCH ×4 (08:49→20:26)
[2016-10-11] MEDS: AMIODARONE HCL 200 MG TABLET GT SCH (08:49)
[2016-10-11] MEDS: HYDROGEN PEROXIDE 480 ML BOTTLE TP SCH ×2 (08:50→20:27)
[2016-10-11] MEDS: CLOTRIMAZOLE/BETAMETASONE DIPROPIONATE 15 GM TUBE TP SCH ×2 (08:50→20:27)
[2016-10-11] MEDS: HEPARIN SODIUM, PORCINE 5000 UNITS/1 ML VIAL SQ SCH ×2 (08:50→20:26)
[2016-10-11] MEDS: ZINC OXIDE 30 GM TUBE TP SCH ×6 (08:50→20:27)
[2016-10-11 20:13] VITALS: BP 111/69
[2016-10-11] MEDS: FINASTERIDE (5 MG) 5 MG TABLET GT SCH (20:25)
[2016-10-12] MEDS: IPRATROPIUM NEB FS 0.5 MG/2.5 ML AMPUL.NEB NEB SCH ×4 (01:01→19:46)
[2016-10-12] MEDS: ALBUTEROL FS 2.5 MG/3 ML VIAL.NEB NEB SCH ×4 (01:01→19:46)
[2016-10-12] MEDS: BACLOFEN (10 MG) 10 MG TABLET GT SCH ×3 (05:14→20:53)
[2016-10-12] MEDS: LEVOTHYROXINE SODIUM 150 MCG TABLET GT SCH (05:14)
[2016-10-12] MEDS: OMEPRAZOLE 20 MG GT SCH (05:14)
[2016-10-12 07:46] VITALS: BP 121/70
[2016-10-12] MEDS: POLYVINYL ALCOHOL 15 ML BOTTLE EACHEYE SCH ×4 (09:05→20:53)
[2016-10-12] MEDS: GLYCOPYRROLATE 1 MG TABLET GT SCH ×2 (09:06→20:53)
[2016-10-12] MEDS: HYDROGEN PEROXIDE 480 ML BOTTLE TP SCH ×2 (09:06→20:53)
[2016-10-12] MEDS: AMIODARONE HCL 200 MG TABLET GT SCH (09:06)
[2016-10-12] MEDS: ACIDOPHILUS/BULGARICUS 1 EACH TAB.CHEW GT SCH (09:06)
[2016-10-12] MEDS: MULTIVITAMINS,THERAGRAN 1 UDTAB TABLET GT SCH (09:06)
[2016-10-12] MEDS: ASCORBIC ACID 500 MG TABLET GT SCH (09:06)
[2016-10-12] MEDS: POLYETHYLENE GLYCOL 3350 17 GM POWD.PACK GT SCH (09:06)
[2016-10-12] MEDS: HEPARIN SODIUM, PORCINE 5000 UNITS/1 ML VIAL SQ SCH ×2 (09:06→20:53)
[2016-10-12] MEDS: POTASSIUM CHLORIDE 20 MEQ/15 ML ML GT SCH (09:06)
[2016-10-12] MEDS: ZINC OXIDE 30 GM TUBE TP SCH ×6 (09:07→20:54)
[2016-10-12] MEDS: CLOTRIMAZOLE/BETAMETASONE DIPROPIONATE 15 GM TUBE TP SCH ×2 (09:07→20:54)
--- NOTE | 2016-10-12 16:16 | NUR ---
Seen and examined by Vivian Posada, MENTAL HEALTH PROGRAM MANAGER, NNO given.
[2016-10-12 20:04] VITALS: BP 117/78
[2016-10-12] MEDS: FINASTERIDE (5 MG) 5 MG TABLET GT SCH (20:53)
[2016-10-13] MEDS: IPRATROPIUM NEB FS 0.5 MG/2.5 ML AMPUL.NEB NEB SCH ×4 (01:08→19:54)
[2016-10-13] MEDS: ALBUTEROL FS 2.5 MG/3 ML VIAL.NEB NEB SCH ×4 (01:08→19:54)
[2016-10-13] MEDS: BACLOFEN (10 MG) 10 MG TABLET GT SCH ×3 (05:36→20:49)
[2016-10-13] MEDS: OMEPRAZOLE 20 MG GT SCH (05:36)
[2016-10-13] MEDS: LEVOTHYROXINE SODIUM 150 MCG TABLET GT SCH (05:36)
[2016-10-13 08:09] VITALS: BP 100/67
[2016-10-13] MEDS: AMIODARONE HCL 200 MG TABLET GT SCH (09:00)
[2016-10-13] MEDS: HYDROGEN PEROXIDE 480 ML BOTTLE TP SCH ×2 (09:00→20:50)
[2016-10-13] MEDS: CLOTRIMAZOLE/BETAMETASONE DIPROPIONATE 15 GM TUBE TP SCH ×2 (09:00→20:50)
[2016-10-13] MEDS: POLYETHYLENE GLYCOL 3350 17 GM POWD.PACK GT SCH (09:00)
[2016-10-13] MEDS: GLYCOPYRROLATE 1 MG TABLET GT SCH ×2 (09:00→20:49)
[2016-10-13] MEDS: ASCORBIC ACID 500 MG TABLET GT SCH (09:00)
[2016-10-13] MEDS: MULTIVITAMINS,THERAGRAN 1 UDTAB TABLET GT SCH (09:00)
[2016-10-13] MEDS: ACIDOPHILUS/BULGARICUS 1 EACH TAB.CHEW GT SCH (09:00)
[2016-10-13] MEDS: ZINC OXIDE 30 GM TUBE TP SCH ×6 (09:00→20:50)
[2016-10-13] MEDS: POLYVINYL ALCOHOL 15 ML BOTTLE EACHEYE SCH ×4 (09:00→20:49)
[2016-10-13] MEDS: HEPARIN SODIUM, PORCINE 5000 UNITS/1 ML VIAL SQ SCH ×2 (09:00→20:49)
[2016-10-13] MEDS: POTASSIUM CHLORIDE 20 MEQ/15 ML ML GT SCH (09:00)
[2016-10-13] MEDS: FINASTERIDE (5 MG) 5 MG TABLET GT SCH (20:49)
[2016-10-13 21:24] VITALS: BP 110/63
[2016-10-14] MEDS: ALBUTEROL FS 2.5 MG/3 ML VIAL.NEB NEB SCH ×4 (02:12→19:52)
[2016-10-14] MEDS: IPRATROPIUM NEB FS 0.5 MG/2.5 ML AMPUL.NEB NEB SCH ×4 (02:12→19:52)
[2016-10-14] MEDS: BACLOFEN (10 MG) 10 MG TABLET GT SCH ×3 (05:46→20:29)
[2016-10-14] MEDS: RENAL NOVASOURCE 1,000 ML BOTTLE GT PRN (05:46)
[2016-10-14] MEDS: OMEPRAZOLE 20 MG GT SCH (05:46)
[2016-10-14] MEDS: LEVOTHYROXINE SODIUM 150 MCG TABLET GT SCH (05:46)
[2016-10-14 07:34] VITALS: BP 117/73
[2016-10-14] MEDS: POLYETHYLENE GLYCOL 3350 17 GM POWD.PACK GT SCH (09:00)
[2016-10-14] MEDS: POTASSIUM CHLORIDE 20 MEQ/15 ML ML GT SCH (09:00)
[2016-10-14] MEDS: ZINC OXIDE 30 GM TUBE TP SCH ×6 (09:00→20:30)
[2016-10-14] MEDS: GLYCOPYRROLATE 1 MG TABLET GT SCH ×2 (09:00→20:29)
[2016-10-14] MEDS: HEPARIN SODIUM, PORCINE 5000 UNITS/1 ML VIAL SQ SCH ×2 (09:00→20:29)
[2016-10-14] MEDS: CLOTRIMAZOLE/BETAMETASONE DIPROPIONATE 15 GM TUBE TP SCH ×2 (09:00→20:30)
[2016-10-14] MEDS: POLYVINYL ALCOHOL 15 ML BOTTLE EACHEYE SCH ×4 (09:00→20:29)
[2016-10-14] MEDS: AMIODARONE HCL 200 MG TABLET GT SCH (09:00)
[2016-10-14] MEDS: ACIDOPHILUS/BULGARICUS 1 EACH TAB.CHEW GT SCH (09:00)
[2016-10-14] MEDS: MULTIVITAMINS,THERAGRAN 1 UDTAB TABLET GT SCH (09:00)
[2016-10-14] MEDS: ASCORBIC ACID 500 MG TABLET GT SCH (09:00)
[2016-10-14] MEDS: HYDROGEN PEROXIDE 480 ML BOTTLE TP SCH ×2 (09:00→20:29)
[2016-10-14 20:09] VITALS: BP 111/65
[2016-10-14] MEDS: FINASTERIDE (5 MG) 5 MG TABLET GT SCH (20:29)
[2016-10-14] MEDS: MAGNESIUM HYDROXIDE 30 ML UDC GT PRN (20:30)
[2016-10-15] MEDS: ALBUTEROL FS 2.5 MG/3 ML VIAL.NEB NEB SCH ×4 (02:16→19:51)
[2016-10-15] MEDS: IPRATROPIUM NEB FS 0.5 MG/2.5 ML AMPUL.NEB NEB SCH ×4 (02:16→19:51)
[2016-10-15] MEDS: RENAL NOVASOURCE 1,000 ML BOTTLE GT PRN (05:11)
[2016-10-15] MEDS: BACLOFEN (10 MG) 10 MG TABLET GT SCH ×3 (05:11→20:25)
[2016-10-15] MEDS: LEVOTHYROXINE SODIUM 150 MCG TABLET GT SCH (05:11)
[2016-10-15] MEDS: OMEPRAZOLE 20 MG GT SCH (05:11)
[2016-10-15 08:33] VITALS: BP 101/58
[2016-10-15] MEDS: POTASSIUM CHLORIDE 20 MEQ/15 ML ML GT SCH (09:00)
[2016-10-15] MEDS: POLYETHYLENE GLYCOL 3350 17 GM POWD.PACK GT SCH (09:00)
[2016-10-15] MEDS: ASCORBIC ACID 500 MG TABLET GT SCH (09:00)
[2016-10-15] MEDS: HEPARIN SODIUM, PORCINE 5000 UNITS/1 ML VIAL SQ SCH ×2 (09:00→20:26)
[2016-10-15] MEDS: ZINC OXIDE 30 GM TUBE TP SCH ×6 (09:00→20:26)
[2016-10-15] MEDS: ACIDOPHILUS/BULGARICUS 1 EACH TAB.CHEW GT SCH (09:00)
[2016-10-15] MEDS: ERGOCALCIFEROL (VITAMIN D2) 8,000 UNIT/ML GT SCH (09:00)
[2016-10-15] MEDS: AMIODARONE HCL 200 MG TABLET GT SCH (09:00)
[2016-10-15] MEDS: HYDROGEN PEROXIDE 480 ML BOTTLE TP SCH ×2 (09:00→20:26)
[2016-10-15] MEDS: POLYVINYL ALCOHOL 15 ML BOTTLE EACHEYE SCH ×4 (09:00→20:25)
[2016-10-15] MEDS: MULTIVITAMINS,THERAGRAN 1 UDTAB TABLET GT SCH (09:00)
[2016-10-15] MEDS: CLOTRIMAZOLE/BETAMETASONE DIPROPIONATE 15 GM TUBE TP SCH ×2 (09:00→20:26)
[2016-10-15] MEDS: GLYCOPYRROLATE 1 MG TABLET GT SCH ×2 (09:00→20:25)
[2016-10-15 19:47] VITALS: BP 114/71
[2016-10-15] MEDS: FINASTERIDE (5 MG) 5 MG TABLET GT SCH (20:25)
[2016-10-16] MEDS: IPRATROPIUM NEB FS 0.5 MG/2.5 ML AMPUL.NEB NEB SCH ×4 (01:13→19:48)
[2016-10-16] MEDS: ALBUTEROL FS 2.5 MG/3 ML VIAL.NEB NEB SCH ×4 (01:14→19:48)
[2016-10-16] MEDS: RENAL NOVASOURCE 1,000 ML BOTTLE GT PRN (05:10)
[2016-10-16] MEDS: OMEPRAZOLE 20 MG GT SCH (05:10)
[2016-10-16] MEDS: LEVOTHYROXINE SODIUM 150 MCG TABLET GT SCH (05:10)
[2016-10-16] MEDS: BACLOFEN (10 MG) 10 MG TABLET GT SCH ×3 (05:10→20:53)
[2016-10-16 07:45] VITALS: BP 126/73
[2016-10-16] MEDS: AMIODARONE HCL 200 MG TABLET GT SCH (09:44)
[2016-10-16] MEDS: ASCORBIC ACID 500 MG TABLET GT SCH (09:44)
[2016-10-16] MEDS: POLYETHYLENE GLYCOL 3350 17 GM POWD.PACK GT SCH (09:44)
[2016-10-16] MEDS: ACIDOPHILUS/BULGARICUS 1 EACH TAB.CHEW GT SCH (09:44)
[2016-10-16] MEDS: POLYVINYL ALCOHOL 15 ML BOTTLE EACHEYE SCH ×4 (09:44→20:53)
[2016-10-16] MEDS: POTASSIUM CHLORIDE 20 MEQ/15 ML ML GT SCH (09:44)
[2016-10-16] MEDS: GLYCOPYRROLATE 1 MG TABLET GT SCH ×2 (09:44→20:53)
[2016-10-16] MEDS: MULTIVITAMINS,THERAGRAN 1 UDTAB TABLET GT SCH (09:44)
[2016-10-16] MEDS: HEPARIN SODIUM, PORCINE 5000 UNITS/1 ML VIAL SQ SCH ×2 (09:45→20:53)
[2016-10-16] MEDS: CLOTRIMAZOLE/BETAMETASONE DIPROPIONATE 15 GM TUBE TP SCH ×2 (10:30→20:53)
[2016-10-16] MEDS: ZINC OXIDE 30 GM TUBE TP SCH ×6 (10:30→20:54)
[2016-10-16] MEDS: HYDROGEN PEROXIDE 480 ML BOTTLE TP SCH ×2 (10:30→20:53)
[2016-10-16 19:50] VITALS: BP 131/72
[2016-10-16] MEDS: FINASTERIDE (5 MG) 5 MG TABLET GT SCH (20:53)
[2016-10-17] MEDS: ALBUTEROL FS 2.5 MG/3 ML VIAL.NEB NEB SCH ×4 (01:43→19:30)
[2016-10-17] MEDS: IPRATROPIUM NEB FS 0.5 MG/2.5 ML AMPUL.NEB NEB SCH ×4 (01:43→19:30)
[2016-10-17] MEDS: RENAL NOVASOURCE 1,000 ML BOTTLE GT PRN (05:25)
[2016-10-17] MEDS: LEVOTHYROXINE SODIUM 150 MCG TABLET GT SCH (05:25)
[2016-10-17] MEDS: BACLOFEN (10 MG) 10 MG TABLET GT SCH ×3 (05:25→20:11)
[2016-10-17] MEDS: OMEPRAZOLE 20 MG GT SCH (05:25)
--- NOTE | 2016-10-17 06:57 | NUR ---
RN NOTES Received new order from Dr. Reeder to continue Heparin 5,000 units SQ q12hrs for DVT prophylaxis, noted and carried out.
[2016-10-17 07:45] VITALS: BP 113/68
[2016-10-17] MEDS: GLYCOPYRROLATE 1 MG TABLET GT SCH ×2 (09:00→20:11)
[2016-10-17] MEDS: HEPARIN SODIUM, PORCINE 5000 UNITS/1 ML VIAL SQ SCH ×2 (09:00→20:14)
[2016-10-17] MEDS: AMIODARONE HCL 200 MG TABLET GT SCH (09:00)
[2016-10-17] MEDS: POLYVINYL ALCOHOL 15 ML BOTTLE EACHEYE SCH ×4 (09:00→20:11)
[2016-10-17] MEDS: ASCORBIC ACID 500 MG TABLET GT SCH (09:00)
[2016-10-17] MEDS: POLYETHYLENE GLYCOL 3350 17 GM POWD.PACK GT SCH (09:00)
[2016-10-17] MEDS: POTASSIUM CHLORIDE 20 MEQ/15 ML ML GT SCH (09:00)
[2016-10-17] MEDS: ACIDOPHILUS/BULGARICUS 1 EACH TAB.CHEW GT SCH (09:00)
[2016-10-17] MEDS: MULTIVITAMINS,THERAGRAN 1 UDTAB TABLET GT SCH (09:00)
[2016-10-17] MEDS: ZINC OXIDE 30 GM TUBE TP SCH ×6 (10:00→20:14)
[2016-10-17] MEDS: CLOTRIMAZOLE/BETAMETASONE DIPROPIONATE 15 GM TUBE TP SCH ×2 (10:00→20:14)
[2016-10-17] MEDS: HYDROGEN PEROXIDE 480 ML BOTTLE TP SCH ×2 (10:00→20:14)
--- NOTE | 2016-10-17 15:45 | NUR ---
Resident was seen by Dr. Forrester (rf technician).
[2016-10-17 19:36] VITALS: BP 131/76
[2016-10-17] MEDS: FINASTERIDE (5 MG) 5 MG TABLET GT SCH (20:11)
[2016-10-18] MEDS: IPRATROPIUM NEB FS 0.5 MG/2.5 ML AMPUL.NEB NEB SCH ×4 (02:02→20:25)
[2016-10-18] MEDS: ALBUTEROL FS 2.5 MG/3 ML VIAL.NEB NEB SCH ×4 (02:02→20:25)
[2016-10-18] MEDS: BACLOFEN (10 MG) 10 MG TABLET GT SCH ×3 (05:28→20:10)
[2016-10-18] MEDS: OMEPRAZOLE 20 MG GT SCH (05:28)
[2016-10-18] MEDS: LEVOTHYROXINE SODIUM 150 MCG TABLET GT SCH (05:28)
[2016-10-18 07:47] VITALS: BP 135/93
[2016-10-18] MEDS: POLYVINYL ALCOHOL 15 ML BOTTLE EACHEYE SCH ×4 (08:40→20:10)
[2016-10-18] MEDS: GLYCOPYRROLATE 1 MG TABLET GT SCH ×2 (08:41→20:10)
[2016-10-18] MEDS: ASCORBIC ACID 500 MG TABLET GT SCH (08:41)
[2016-10-18] MEDS: ACIDOPHILUS/BULGARICUS 1 EACH TAB.CHEW GT SCH (08:41)
[2016-10-18] MEDS: POTASSIUM CHLORIDE 20 MEQ/15 ML ML GT SCH (08:41)
[2016-10-18] MEDS: HEPARIN SODIUM, PORCINE 5000 UNITS/1 ML VIAL SQ SCH ×2 (08:41→20:10)
[2016-10-18] MEDS: AMIODARONE HCL 200 MG TABLET GT SCH (08:41)
[2016-10-18] MEDS: POLYETHYLENE GLYCOL 3350 17 GM POWD.PACK GT SCH (08:41)
[2016-10-18] MEDS: MULTIVITAMINS,THERAGRAN 1 UDTAB TABLET GT SCH (08:41)
[2016-10-18] MEDS: CLOTRIMAZOLE/BETAMETASONE DIPROPIONATE 15 GM TUBE TP SCH ×2 (09:36→20:11)
[2016-10-18] MEDS: ZINC OXIDE 30 GM TUBE TP SCH ×6 (09:36→20:11)
[2016-10-18] MEDS: HYDROGEN PEROXIDE 480 ML BOTTLE TP SCH ×2 (09:36→20:10)
[2016-10-18 19:51] VITALS: BP 118/70
[2016-10-18] MEDS: FINASTERIDE (5 MG) 5 MG TABLET GT SCH (20:10)
[2016-10-19] MEDS: ALBUTEROL FS 2.5 MG/3 ML VIAL.NEB NEB SCH ×4 (01:58→19:43)
[2016-10-19] MEDS: IPRATROPIUM NEB FS 0.5 MG/2.5 ML AMPUL.NEB NEB SCH ×4 (01:58→19:43)
[2016-10-19] MEDS: BACLOFEN (10 MG) 10 MG TABLET GT SCH ×3 (05:38→21:17)
[2016-10-19] MEDS: LEVOTHYROXINE SODIUM 150 MCG TABLET GT SCH (05:38)
[2016-10-19] MEDS: OMEPRAZOLE 20 MG GT SCH (05:38)
[2016-10-19 07:52] VITALS: BP 109/71
[2016-10-19 07:54] VITALS: BP_SYST 106; BP_SYST 109; BP_DIAS 58; BP_DIAS 71
[2016-10-19] MEDS: POLYVINYL ALCOHOL 15 ML BOTTLE EACHEYE SCH ×4 (08:58→21:17)
[2016-10-19] MEDS: AMIODARONE HCL 200 MG TABLET GT SCH (09:00)
[2016-10-19] MEDS: GLYCOPYRROLATE 1 MG TABLET GT SCH ×2 (09:00→21:17)
[2016-10-19] MEDS: POTASSIUM CHLORIDE 20 MEQ/15 ML ML GT SCH (09:01)
[2016-10-19] MEDS: POLYETHYLENE GLYCOL 3350 17 GM POWD.PACK GT SCH (09:02)
[2016-10-19] MEDS: MULTIVITAMINS,THERAGRAN 1 UDTAB TABLET GT SCH (09:02)
[2016-10-19] MEDS: ACIDOPHILUS/BULGARICUS 1 EACH TAB.CHEW GT SCH (09:02)
[2016-10-19] MEDS: ASCORBIC ACID 500 MG TABLET GT SCH (09:02)
[2016-10-19] MEDS: HYDROGEN PEROXIDE 480 ML BOTTLE TP SCH ×2 (09:03→21:18)
[2016-10-19] MEDS: HEPARIN SODIUM, PORCINE 5000 UNITS/1 ML VIAL SQ SCH ×2 (09:03→21:18)
[2016-10-19] MEDS: CLOTRIMAZOLE/BETAMETASONE DIPROPIONATE 15 GM TUBE TP SCH ×2 (09:04→21:18)
[2016-10-19] MEDS: ZINC OXIDE 30 GM TUBE TP SCH ×6 (09:04→21:18)
[2016-10-19 19:52] VITALS: BP 118/76
[2016-10-19] MEDS: FINASTERIDE (5 MG) 5 MG TABLET GT SCH (21:17)
[2016-10-20] MEDS: RENAL NOVASOURCE 1,000 ML BOTTLE GT PRN (00:03)
[2016-10-20] MEDS: ALBUTEROL FS 2.5 MG/3 ML VIAL.NEB NEB SCH ×4 (02:11→21:30)
[2016-10-20] MEDS: IPRATROPIUM NEB FS 0.5 MG/2.5 ML AMPUL.NEB NEB SCH ×4 (02:11→21:30)
[2016-10-20] MEDS: OMEPRAZOLE 20 MG GT SCH (05:26)
[2016-10-20] MEDS: BACLOFEN (10 MG) 10 MG TABLET GT SCH ×3 (05:26→21:53)
[2016-10-20] MEDS: LEVOTHYROXINE SODIUM 150 MCG TABLET GT SCH (05:26)
[2016-10-20 08:00] VITALS: BP 98/57
[2016-10-20] MEDS: GLYCOPYRROLATE 1 MG TABLET GT SCH ×2 (08:54→21:53)
[2016-10-20] MEDS: ACIDOPHILUS/BULGARICUS 1 EACH TAB.CHEW GT SCH (08:54)
[2016-10-20] MEDS: POLYVINYL ALCOHOL 15 ML BOTTLE EACHEYE SCH ×4 (08:54→21:52)
[2016-10-20] MEDS: AMIODARONE HCL 200 MG TABLET GT SCH (08:54)
[2016-10-20] MEDS: POLYETHYLENE GLYCOL 3350 17 GM POWD.PACK GT SCH (08:55)
[2016-10-20] MEDS: MULTIVITAMINS,THERAGRAN 1 UDTAB TABLET GT SCH (08:55)
[2016-10-20] MEDS: POTASSIUM CHLORIDE 20 MEQ/15 ML ML GT SCH (08:55)
[2016-10-20] MEDS: ASCORBIC ACID 500 MG TABLET GT SCH (08:55)
[2016-10-20] MEDS: HEPARIN SODIUM, PORCINE 5000 UNITS/1 ML VIAL SQ SCH ×2 (08:56→21:53)
[2016-10-20] MEDS: HYDROGEN PEROXIDE 480 ML BOTTLE TP SCH ×2 (09:00→21:54)
[2016-10-20] MEDS: ZINC OXIDE 30 GM TUBE TP SCH ×6 (09:00→21:57)
[2016-10-20] MEDS: CLOTRIMAZOLE/BETAMETASONE DIPROPIONATE 15 GM TUBE TP SCH ×2 (09:00→21:54)
[2016-10-20 19:53] VITALS: BP 113/76
[2016-10-20] MEDS: FINASTERIDE (5 MG) 5 MG TABLET GT SCH (20:30)
[2016-10-21] MEDS: IPRATROPIUM NEB FS 0.5 MG/2.5 ML AMPUL.NEB NEB SCH ×4 (01:41→20:35)
[2016-10-21] MEDS: ALBUTEROL FS 2.5 MG/3 ML VIAL.NEB NEB SCH ×4 (01:41→20:35)
[2016-10-21] MEDS: BACLOFEN (10 MG) 10 MG TABLET GT SCH ×3 (05:00→20:57)
[2016-10-21] MEDS: OMEPRAZOLE 20 MG GT SCH (06:54)
[2016-10-21] MEDS: LEVOTHYROXINE SODIUM 150 MCG TABLET GT SCH (06:54)
[2016-10-21 08:00] VITALS: BP 102/60
[2016-10-21] MEDS: HYDROGEN PEROXIDE 480 ML BOTTLE TP SCH ×2 (09:00→21:08)
[2016-10-21] MEDS: ZINC OXIDE 30 GM TUBE TP SCH ×6 (09:00→21:08)
[2016-10-21] MEDS: CLOTRIMAZOLE/BETAMETASONE DIPROPIONATE 15 GM TUBE TP SCH ×2 (09:00→21:08)
[2016-10-21] MEDS: GLYCOPYRROLATE 1 MG TABLET GT SCH ×2 (09:12→20:56)
[2016-10-21] MEDS: ACIDOPHILUS/BULGARICUS 1 EACH TAB.CHEW GT SCH (09:12)
[2016-10-21] MEDS: POLYVINYL ALCOHOL 15 ML BOTTLE EACHEYE SCH ×4 (09:12→20:56)
[2016-10-21] MEDS: AMIODARONE HCL 200 MG TABLET GT SCH (09:12)
[2016-10-21] MEDS: MULTIVITAMINS,THERAGRAN 1 UDTAB TABLET GT SCH (09:12)
[2016-10-21] MEDS: POLYETHYLENE GLYCOL 3350 17 GM POWD.PACK GT SCH (09:12)
[2016-10-21] MEDS: POTASSIUM CHLORIDE 20 MEQ/15 ML ML GT SCH (09:12)
[2016-10-21] MEDS: ASCORBIC ACID 500 MG TABLET GT SCH (09:13)
[2016-10-21] MEDS: HEPARIN SODIUM, PORCINE 5000 UNITS/1 ML VIAL SQ SCH ×2 (09:13→20:58)
[2016-10-21 16:00] VITALS: BP 104/71
[2016-10-21 19:50] VITALS: BP 126/77
[2016-10-21] MEDS: FINASTERIDE (5 MG) 5 MG TABLET GT SCH (20:56)
[2016-10-22] MEDS: IPRATROPIUM NEB FS 0.5 MG/2.5 ML AMPUL.NEB NEB SCH ×4 (01:56→20:29)
[2016-10-22] MEDS: ALBUTEROL FS 2.5 MG/3 ML VIAL.NEB NEB SCH ×4 (01:57→20:29)
[2016-10-22] MEDS: BACLOFEN (10 MG) 10 MG TABLET GT SCH ×3 (05:00→21:37)
[2016-10-22] MEDS: OMEPRAZOLE 20 MG GT SCH (06:28)
[2016-10-22] MEDS: LEVOTHYROXINE SODIUM 150 MCG TABLET GT SCH (06:28)
[2016-10-22 07:45] VITALS: BP 113/69
[2016-10-22] MEDS: POLYVINYL ALCOHOL 15 ML BOTTLE EACHEYE SCH ×4 (08:34→21:37)
[2016-10-22] MEDS: AMIODARONE HCL 200 MG TABLET GT SCH (08:44)
[2016-10-22] MEDS: ERGOCALCIFEROL (VITAMIN D2) 8,000 UNIT/ML GT SCH (08:44)
[2016-10-22] MEDS: MULTIVITAMINS,THERAGRAN 1 UDTAB TABLET GT SCH (08:44)
[2016-10-22] MEDS: POTASSIUM CHLORIDE 20 MEQ/15 ML ML GT SCH (08:44)
[2016-10-22] MEDS: ASCORBIC ACID 500 MG TABLET GT SCH (08:44)
[2016-10-22] MEDS: POLYETHYLENE GLYCOL 3350 17 GM POWD.PACK GT SCH (08:44)
[2016-10-22] MEDS: ACIDOPHILUS/BULGARICUS 1 EACH TAB.CHEW GT SCH (08:44)
[2016-10-22] MEDS: GLYCOPYRROLATE 1 MG TABLET GT SCH ×2 (08:44→21:37)
[2016-10-22] MEDS: CLOTRIMAZOLE/BETAMETASONE DIPROPIONATE 15 GM TUBE TP SCH (08:45)
[2016-10-22] MEDS: HYDROGEN PEROXIDE 480 ML BOTTLE TP SCH ×2 (08:45→21:38)
[2016-10-22] MEDS: HEPARIN SODIUM, PORCINE 5000 UNITS/1 ML VIAL SQ SCH ×2 (08:45→21:38)
[2016-10-22] MEDS: ZINC OXIDE 30 GM TUBE TP SCH ×5 (08:45→21:38)
[2016-10-22] MEDS: RENAL NOVASOURCE 1,000 ML BOTTLE GT PRN (12:46)
[2016-10-22 19:46] VITALS: BP 132/77
[2016-10-22] MEDS: FINASTERIDE (5 MG) 5 MG TABLET GT SCH (20:00)
[2016-10-23] MEDS: IPRATROPIUM NEB FS 0.5 MG/2.5 ML AMPUL.NEB NEB SCH ×4 (01:20→20:22)
[2016-10-23] MEDS: ALBUTEROL FS 2.5 MG/3 ML VIAL.NEB NEB SCH ×4 (01:20→20:22)
[2016-10-23] MEDS: OMEPRAZOLE 20 MG GT SCH (05:31)
[2016-10-23] MEDS: BACLOFEN (10 MG) 10 MG TABLET GT SCH ×3 (05:31→21:00)
[2016-10-23] MEDS: LEVOTHYROXINE SODIUM 150 MCG TABLET GT SCH (05:31)
[2016-10-23 07:45] VITALS: BP 126/72
[2016-10-23] MEDS: GLYCOPYRROLATE 1 MG TABLET GT SCH ×2 (08:39→21:00)
[2016-10-23] MEDS: POLYVINYL ALCOHOL 15 ML BOTTLE EACHEYE SCH ×4 (08:39→21:00)
[2016-10-23] MEDS: ACIDOPHILUS/BULGARICUS 1 EACH TAB.CHEW GT SCH (08:39)
[2016-10-23] MEDS: POLYETHYLENE GLYCOL 3350 17 GM POWD.PACK GT SCH (08:39)
[2016-10-23] MEDS: ASCORBIC ACID 500 MG TABLET GT SCH (08:39)
[2016-10-23] MEDS: MULTIVITAMINS,THERAGRAN 1 UDTAB TABLET GT SCH (08:39)
[2016-10-23] MEDS: AMIODARONE HCL 200 MG TABLET GT SCH (08:39)
[2016-10-23] MEDS: POTASSIUM CHLORIDE 20 MEQ/15 ML ML GT SCH (08:39)
[2016-10-23] MEDS: HEPARIN SODIUM, PORCINE 5000 UNITS/1 ML VIAL SQ SCH ×2 (08:40→21:00)
[2016-10-23] MEDS: HYDROGEN PEROXIDE 480 ML BOTTLE TP SCH ×2 (10:00→21:00)
[2016-10-23] MEDS: ZINC OXIDE 30 GM TUBE TP SCH ×2 (10:00→21:00)
[2016-10-23] MEDS: RENAL NOVASOURCE 1,000 ML BOTTLE GT PRN (17:36)
[2016-10-23 19:55] VITALS: BP 122/70
[2016-10-23] MEDS: FINASTERIDE (5 MG) 5 MG TABLET GT SCH (20:00)
[2016-10-24] MEDS: ALBUTEROL FS 2.5 MG/3 ML VIAL.NEB NEB SCH ×4 (01:56→20:34)
[2016-10-24] MEDS: IPRATROPIUM NEB FS 0.5 MG/2.5 ML AMPUL.NEB NEB SCH ×4 (01:56→20:34)
[2016-10-24] MEDS: LEVOTHYROXINE SODIUM 150 MCG TABLET GT SCH (05:17)
[2016-10-24] MEDS: OMEPRAZOLE 20 MG GT SCH (05:17)
[2016-10-24] MEDS: BACLOFEN (10 MG) 10 MG TABLET GT SCH ×3 (05:17→21:57)
[2016-10-24 07:32] VITALS: BP 142/86
[2016-10-24] MEDS: POLYVINYL ALCOHOL 15 ML BOTTLE EACHEYE SCH ×4 (09:57→21:57)
[2016-10-24] MEDS: AMIODARONE HCL 200 MG TABLET GT SCH (09:57)
[2016-10-24] MEDS: ACIDOPHILUS/BULGARICUS 1 EACH TAB.CHEW GT SCH (09:57)
[2016-10-24] MEDS: GLYCOPYRROLATE 1 MG TABLET GT SCH ×2 (09:57→21:57)
[2016-10-24] MEDS: POLYETHYLENE GLYCOL 3350 17 GM POWD.PACK GT SCH (09:57)
[2016-10-24] MEDS: POTASSIUM CHLORIDE 20 MEQ/15 ML ML GT SCH (09:58)
[2016-10-24] MEDS: HEPARIN SODIUM, PORCINE 5000 UNITS/1 ML VIAL SQ SCH ×2 (09:58→21:59)
[2016-10-24] MEDS: MULTIVITAMINS,THERAGRAN 1 UDTAB TABLET GT SCH (09:58)
[2016-10-24] MEDS: ASCORBIC ACID 500 MG TABLET GT SCH (09:58)
[2016-10-24] MEDS: ZINC OXIDE 30 GM TUBE TP SCH ×2 (10:15→21:59)
[2016-10-24] MEDS: HYDROGEN PEROXIDE 480 ML BOTTLE TP SCH ×2 (10:15→21:59)
[2016-10-24] MEDS: RENAL NOVASOURCE 1,000 ML BOTTLE GT PRN (17:56)
[2016-10-24 19:48] VITALS: BP 121/79
[2016-10-24] MEDS: FINASTERIDE (5 MG) 5 MG TABLET GT SCH (20:00)
[2016-10-25] MEDS: IPRATROPIUM NEB FS 0.5 MG/2.5 ML AMPUL.NEB NEB SCH ×4 (01:12→20:15)
[2016-10-25] MEDS: ALBUTEROL FS 2.5 MG/3 ML VIAL.NEB NEB SCH ×4 (01:13→20:15)
[2016-10-25] MEDS: OMEPRAZOLE 20 MG GT SCH (05:31)
[2016-10-25] MEDS: LEVOTHYROXINE SODIUM 150 MCG TABLET GT SCH (05:31)
[2016-10-25] MEDS: BACLOFEN (10 MG) 10 MG TABLET GT SCH ×3 (05:31→21:38)
[2016-10-25 07:50] VITALS: BP 115/74
[2016-10-25] MEDS: AMIODARONE HCL 200 MG TABLET GT SCH (08:44)
[2016-10-25] MEDS: POLYVINYL ALCOHOL 15 ML BOTTLE EACHEYE SCH ×3 (08:44→21:38)
[2016-10-25] MEDS: GLYCOPYRROLATE 1 MG TABLET GT SCH ×2 (08:45→21:38)
[2016-10-25] MEDS: POLYETHYLENE GLYCOL 3350 17 GM POWD.PACK GT SCH (08:45)
[2016-10-25] MEDS: ACIDOPHILUS/BULGARICUS 1 EACH TAB.CHEW GT SCH (08:45)
[2016-10-25] MEDS: POTASSIUM CHLORIDE 20 MEQ/15 ML ML GT SCH (08:45)
[2016-10-25] MEDS: ASCORBIC ACID 500 MG TABLET GT SCH (08:46)
[2016-10-25] MEDS: MULTIVITAMINS,THERAGRAN 1 UDTAB TABLET GT SCH (08:46)
[2016-10-25] MEDS: HEPARIN SODIUM, PORCINE 5000 UNITS/1 ML VIAL SQ SCH ×2 (08:46→21:38)
[2016-10-25] MEDS: HYDROGEN PEROXIDE 480 ML BOTTLE TP SCH ×2 (09:00→21:39)
[2016-10-25] MEDS: ZINC OXIDE 30 GM TUBE TP SCH ×2 (09:00→21:39)
[2016-10-25 19:55] VITALS: BP 113/69
[2016-10-25] MEDS: FINASTERIDE (5 MG) 5 MG TABLET GT SCH (20:00)
[2016-10-26] MEDS: RENAL NOVASOURCE 1,000 ML BOTTLE GT PRN (00:08)
[2016-10-26] MEDS: ALBUTEROL FS 2.5 MG/3 ML VIAL.NEB NEB SCH ×4 (01:47→19:56)
[2016-10-26] MEDS: IPRATROPIUM NEB FS 0.5 MG/2.5 ML AMPUL.NEB NEB SCH ×4 (01:47→19:56)
[2016-10-26] MEDS: BACLOFEN (10 MG) 10 MG TABLET GT SCH ×3 (05:00→20:57)
--- NOTE | 2016-10-26 05:45 | NUR ---
Kitchen Cath changed as ordered, d/t clogged. Inserted x1 without difficulty. No sign of distress, discomfort noted. Abd soft not distended. No sign and symptoms of bleeding noted. Clear yellow urine output observed.
[2016-10-26] MEDS: OMEPRAZOLE 20 MG GT SCH (06:23)
[2016-10-26] MEDS: LEVOTHYROXINE SODIUM 150 MCG TABLET GT SCH (06:23)
[2016-10-26 08:16] VITALS: BP 139/86
[2016-10-26] MEDS: CLOTRIMAZOLE/BETAMETASONE DIPROPIONATE 15 GM TUBE TP SCH ×2 (09:00→20:57)
[2016-10-26] MEDS: POLYVINYL ALCOHOL 15 ML BOTTLE EACHEYE SCH ×4 (09:00→20:57)
[2016-10-26] MEDS: ZINC OXIDE 30 GM TUBE TP SCH ×4 (09:00→20:58)
[2016-10-26] MEDS: GLYCOPYRROLATE 1 MG TABLET GT SCH ×2 (09:56→20:57)
[2016-10-26] MEDS: AMIODARONE HCL 200 MG TABLET GT SCH (09:56)
[2016-10-26] MEDS: ACIDOPHILUS/BULGARICUS 1 EACH TAB.CHEW GT SCH (09:56)
[2016-10-26] MEDS: POLYETHYLENE GLYCOL 3350 17 GM POWD.PACK GT SCH (09:56)
[2016-10-26] MEDS: MULTIVITAMINS,THERAGRAN 1 UDTAB TABLET GT SCH (09:56)
[2016-10-26] MEDS: POTASSIUM CHLORIDE 20 MEQ/15 ML ML GT SCH (09:56)
[2016-10-26] MEDS: ASCORBIC ACID 500 MG TABLET GT SCH (09:58)
[2016-10-26] MEDS: HEPARIN SODIUM, PORCINE 5000 UNITS/1 ML VIAL SQ SCH ×2 (09:59→20:57)
[2016-10-26] MEDS: HYDROGEN PEROXIDE 480 ML BOTTLE TP SCH ×2 (09:59→20:57)
[2016-10-26 19:43] VITALS: BP 113/70
[2016-10-26] MEDS: FINASTERIDE (5 MG) 5 MG TABLET GT SCH (20:57)
[2016-10-27] MEDS: ALBUTEROL FS 2.5 MG/3 ML VIAL.NEB NEB SCH ×4 (01:30→20:20)
[2016-10-27] MEDS: IPRATROPIUM NEB FS 0.5 MG/2.5 ML AMPUL.NEB NEB SCH ×4 (01:30→20:20)
[2016-10-27] MEDS: OMEPRAZOLE 20 MG GT SCH (05:57)
[2016-10-27] MEDS: BACLOFEN (10 MG) 10 MG TABLET GT SCH ×3 (05:57→21:00)
[2016-10-27] MEDS: LEVOTHYROXINE SODIUM 150 MCG TABLET GT SCH (05:57)
[2016-10-27 07:47] VITALS: BP 127/61
[2016-10-27 07:49] VITALS: BP 108/66
[2016-10-27] MEDS: POLYVINYL ALCOHOL 15 ML BOTTLE EACHEYE SCH ×4 (08:59→21:00)
[2016-10-27] MEDS: GLYCOPYRROLATE 1 MG TABLET GT SCH ×2 (09:00→21:00)
[2016-10-27] MEDS: AMIODARONE HCL 200 MG TABLET GT SCH (09:00)
[2016-10-27] MEDS: POTASSIUM CHLORIDE 20 MEQ/15 ML ML GT SCH (09:00)
[2016-10-27] MEDS: ASCORBIC ACID 500 MG TABLET GT SCH (09:00)
[2016-10-27] MEDS: MULTIVITAMINS,THERAGRAN 1 UDTAB TABLET GT SCH (09:00)
[2016-10-27] MEDS: ACIDOPHILUS/BULGARICUS 1 EACH TAB.CHEW GT SCH (09:00)
[2016-10-27] MEDS: POLYETHYLENE GLYCOL 3350 17 GM POWD.PACK GT SCH (09:00)
[2016-10-27] MEDS: ZINC OXIDE 30 GM TUBE TP SCH ×4 (09:01→21:00)
[2016-10-27] MEDS: CLOTRIMAZOLE/BETAMETASONE DIPROPIONATE 15 GM TUBE TP SCH ×2 (09:01→21:00)
[2016-10-27] MEDS: HEPARIN SODIUM, PORCINE 5000 UNITS/1 ML VIAL SQ SCH ×2 (09:01→21:00)
[2016-10-27] MEDS: HYDROGEN PEROXIDE 480 ML BOTTLE TP SCH ×2 (09:01→21:00)
--- NOTE | 2016-10-27 13:59 | NUR ---
IDT meeting held, reviewed medications and treatment NNO given at this time.
--- NOTE | 2016-10-27 15:04 | NUR ---
Resident's is concern about the L and R buttocks excoriation with open area. Current treatment Lotrisone cream followed by zinc oxide cover by Mepilex. Wound consult requested to evaluate treatment. Informed that wound nurse will not be able to see him today, it will probably on Sunday. verbalized understanding.
[2016-10-27 19:41] VITALS: BP 107/63
[2016-10-27] MEDS: FINASTERIDE (5 MG) 5 MG TABLET GT SCH (20:00)
[2016-10-28] MEDS: ALBUTEROL FS 2.5 MG/3 ML VIAL.NEB NEB SCH ×4 (00:47→20:24)
[2016-10-28] MEDS: IPRATROPIUM NEB FS 0.5 MG/2.5 ML AMPUL.NEB NEB SCH ×4 (00:47→20:24)
[2016-10-28] MEDS: BACLOFEN (10 MG) 10 MG TABLET GT SCH ×3 (05:00→20:14)
[2016-10-28] MEDS: LEVOTHYROXINE SODIUM 150 MCG TABLET GT SCH (06:02)
[2016-10-28] MEDS: OMEPRAZOLE 20 MG GT SCH (06:02)
[2016-10-28] MEDS: AMIODARONE HCL 200 MG TABLET GT SCH (09:30)
[2016-10-28] MEDS: POLYVINYL ALCOHOL 15 ML BOTTLE EACHEYE SCH ×4 (09:30→20:14)
[2016-10-28] MEDS: GLYCOPYRROLATE 1 MG TABLET GT SCH ×2 (09:30→20:14)
[2016-10-28] MEDS: CLOTRIMAZOLE/BETAMETASONE DIPROPIONATE 15 GM TUBE TP SCH ×2 (09:31→20:14)
[2016-10-28] MEDS: ZINC OXIDE 30 GM TUBE TP SCH ×4 (09:31→20:15)
[2016-10-28] MEDS: POTASSIUM CHLORIDE 20 MEQ/15 ML ML GT SCH (09:31)
[2016-10-28] MEDS: POLYETHYLENE GLYCOL 3350 17 GM POWD.PACK GT SCH (09:31)
[2016-10-28] MEDS: ACIDOPHILUS/BULGARICUS 1 EACH TAB.CHEW GT SCH (09:31)
[2016-10-28] MEDS: ASCORBIC ACID 500 MG TABLET GT SCH (09:31)
[2016-10-28] MEDS: HEPARIN SODIUM, PORCINE 5000 UNITS/1 ML VIAL SQ SCH ×2 (09:31→20:14)
[2016-10-28] MEDS: MULTIVITAMINS,THERAGRAN 1 UDTAB TABLET GT SCH (09:31)
[2016-10-28] MEDS: HYDROGEN PEROXIDE 480 ML BOTTLE TP SCH ×2 (10:00→20:14)
[2016-10-28 19:48] VITALS: BP 112/63
[2016-10-28] MEDS: FINASTERIDE (5 MG) 5 MG TABLET GT SCH (20:14)
[2016-10-28 20:45] VITALS: BP 116/70
[2016-10-29] MEDS: IPRATROPIUM NEB FS 0.5 MG/2.5 ML AMPUL.NEB NEB SCH ×4 (01:13→20:27)
[2016-10-29] MEDS: ALBUTEROL FS 2.5 MG/3 ML VIAL.NEB NEB SCH ×4 (01:13→20:27)
[2016-10-29] MEDS: LEVOTHYROXINE SODIUM 150 MCG TABLET GT SCH (05:41)
[2016-10-29] MEDS: OMEPRAZOLE 20 MG GT SCH (05:41)
[2016-10-29] MEDS: BACLOFEN (10 MG) 10 MG TABLET GT SCH ×3 (05:41→21:32)
[2016-10-29 08:06] VITALS: BP 114/44
[2016-10-29] MEDS: POLYVINYL ALCOHOL 15 ML BOTTLE EACHEYE SCH ×4 (09:49→21:32)
[2016-10-29] MEDS: ACIDOPHILUS/BULGARICUS 1 EACH TAB.CHEW GT SCH (09:50)
[2016-10-29] MEDS: HEPARIN SODIUM, PORCINE 5000 UNITS/1 ML VIAL SQ SCH ×2 (09:50→21:33)
[2016-10-29] MEDS: ERGOCALCIFEROL (VITAMIN D2) 8,000 UNIT/ML GT SCH (09:50)
[2016-10-29] MEDS: HYDROGEN PEROXIDE 480 ML BOTTLE TP SCH ×2 (09:50→21:33)
[2016-10-29] MEDS: GLYCOPYRROLATE 1 MG TABLET GT SCH ×2 (09:50→21:32)
[2016-10-29] MEDS: MULTIVITAMINS,THERAGRAN 1 UDTAB TABLET GT SCH (09:50)
[2016-10-29] MEDS: AMIODARONE HCL 200 MG TABLET GT SCH (09:50)
[2016-10-29] MEDS: ASCORBIC ACID 500 MG TABLET GT SCH (09:50)
[2016-10-29] MEDS: POTASSIUM CHLORIDE 20 MEQ/15 ML ML GT SCH (09:50)
[2016-10-29] MEDS: POLYETHYLENE GLYCOL 3350 17 GM POWD.PACK GT SCH (09:50)
[2016-10-29] MEDS: CLOTRIMAZOLE/BETAMETASONE DIPROPIONATE 15 GM TUBE TP SCH ×2 (09:50→21:33)
[2016-10-29] MEDS: ZINC OXIDE 30 GM TUBE TP SCH ×4 (09:51→21:34)
[2016-10-29 19:40] VITALS: BP 137/73
[2016-10-29] MEDS: FINASTERIDE (5 MG) 5 MG TABLET GT SCH (20:00)
[2016-10-30] MEDS: IPRATROPIUM NEB FS 0.5 MG/2.5 ML AMPUL.NEB NEB SCH ×4 (02:10→19:52)
[2016-10-30] MEDS: ALBUTEROL FS 2.5 MG/3 ML VIAL.NEB NEB SCH ×4 (02:10→19:52)
[2016-10-30] MEDS: LEVOTHYROXINE SODIUM 150 MCG TABLET GT SCH (05:06)
[2016-10-30] MEDS: OMEPRAZOLE 20 MG GT SCH (05:06)
[2016-10-30] MEDS: BACLOFEN (10 MG) 10 MG TABLET GT SCH ×3 (05:06→21:14)
[2016-10-30 07:57] VITALS: BP 120/69
[2016-10-30] MEDS: HEPARIN SODIUM, PORCINE 5000 UNITS/1 ML VIAL SQ SCH ×2 (09:00→21:14)
[2016-10-30] MEDS: POLYVINYL ALCOHOL 15 ML BOTTLE EACHEYE SCH ×4 (09:03→21:14)
[2016-10-30] MEDS: GLYCOPYRROLATE 1 MG TABLET GT SCH ×2 (09:05→21:14)
[2016-10-30] MEDS: ACIDOPHILUS/BULGARICUS 1 EACH TAB.CHEW GT SCH (09:05)
[2016-10-30] MEDS: POLYETHYLENE GLYCOL 3350 17 GM POWD.PACK GT SCH (09:05)
[2016-10-30] MEDS: AMIODARONE HCL 200 MG TABLET GT SCH (09:05)
[2016-10-30] MEDS: MULTIVITAMINS,THERAGRAN 1 UDTAB TABLET GT SCH (09:06)
[2016-10-30] MEDS: POTASSIUM CHLORIDE 20 MEQ/15 ML ML GT SCH (09:06)
[2016-10-30] MEDS: ASCORBIC ACID 500 MG TABLET GT SCH (09:06)
[2016-10-30] MEDS: CLOTRIMAZOLE/BETAMETASONE DIPROPIONATE 15 GM TUBE TP SCH ×2 (10:00→21:15)
[2016-10-30] MEDS: HYDROGEN PEROXIDE 480 ML BOTTLE TP SCH ×2 (10:00→21:14)
[2016-10-30] MEDS: ZINC OXIDE 30 GM TUBE TP SCH ×4 (10:00→21:15)
--- NOTE | 2016-10-30 10:36 | NUR ---
WOUND CARE CONSULT: PT SEEN FOR LEFT AND RT BUTTOCK RASH WITH EXCORIATION. RED RASH NOTED WITH SLIGHT EXCORIATION OF BUTTOCKS BUT NO OPEN AREAS NOTED. CONCUR WITH CURRENT TREATMENT OF LOTRISONE CREAM, FOLLOWED BY ZINC OXIDE AND PROTECT WITH MEPILEX. PT ON FIRST STEP MATTRESS. ALL SKIN PROTECTION MEASURES IN PLACE AND DISCUSSED WITH NURSING STAFF. WILL SEE PRN. IN AGREEMENT WITH PLAN OF CARE.
--- NOTE | 2016-10-30 11:03 | NUR ---
Seen by wound nurse Kathi. She looked at pt's buttocks, excoriation has improved. No new order.
[2016-10-30] MEDS: LORAZEPAM 0.5 MG TABLET GT PRN (15:42)
[2016-10-30] MEDS: MAGNESIUM HYDROXIDE 30 ML UDC GT PRN (17:59)
[2016-10-30] MEDS: FINASTERIDE (5 MG) 5 MG TABLET GT SCH (20:00)
[2016-10-30 20:07] VITALS: BP 126/60
[2016-10-31] MEDS: IPRATROPIUM NEB FS 0.5 MG/2.5 ML AMPUL.NEB NEB SCH ×4 (01:47→19:30)
[2016-10-31] MEDS: ALBUTEROL FS 2.5 MG/3 ML VIAL.NEB NEB SCH ×4 (01:47→19:30)
[2016-10-31] MEDS: OMEPRAZOLE 20 MG GT SCH (05:12)
[2016-10-31] MEDS: LEVOTHYROXINE SODIUM 150 MCG TABLET GT SCH (05:12)
[2016-10-31] MEDS: BACLOFEN (10 MG) 10 MG TABLET GT SCH ×3 (05:12→21:24)
[2016-10-31] MEDS: POLYVINYL ALCOHOL 15 ML BOTTLE EACHEYE SCH ×4 (09:28→21:24)
[2016-10-31] MEDS: MULTIVITAMINS,THERAGRAN 1 UDTAB TABLET GT SCH (09:30)
[2016-10-31] MEDS: ACIDOPHILUS/BULGARICUS 1 EACH TAB.CHEW GT SCH (09:30)
[2016-10-31] MEDS: POTASSIUM CHLORIDE 20 MEQ/15 ML ML GT SCH (09:30)
[2016-10-31] MEDS: GLYCOPYRROLATE 1 MG TABLET GT SCH ×2 (09:30→21:24)
[2016-10-31] MEDS: AMIODARONE HCL 200 MG TABLET GT SCH (09:30)
[2016-10-31] MEDS: POLYETHYLENE GLYCOL 3350 17 GM POWD.PACK GT SCH (09:30)
[2016-10-31] MEDS: ASCORBIC ACID 500 MG TABLET GT SCH (09:30)
[2016-10-31] MEDS: HEPARIN SODIUM, PORCINE 5000 UNITS/1 ML VIAL SQ SCH ×2 (09:31→21:25)
[2016-10-31] MEDS: LORAZEPAM 0.5 MG TABLET GT PRN (09:37)
[2016-10-31] MEDS: ZINC OXIDE 30 GM TUBE TP SCH ×4 (10:30→21:25)
[2016-10-31] MEDS: CLOTRIMAZOLE/BETAMETASONE DIPROPIONATE 15 GM TUBE TP SCH ×2 (10:30→21:25)
[2016-10-31] MEDS: HYDROGEN PEROXIDE 480 ML BOTTLE TP SCH ×2 (10:30→21:25)
[2016-10-31] MEDS: FINASTERIDE (5 MG) 5 MG TABLET GT SCH (20:00)
[2016-10-31 22:46] VITALS: BP 107/78
[2016-11-01] MEDS: IPRATROPIUM NEB FS 0.5 MG/2.5 ML AMPUL.NEB NEB SCH ×4 (01:08→20:42)
[2016-11-01] MEDS: ALBUTEROL FS 2.5 MG/3 ML VIAL.NEB NEB SCH ×4 (01:08→20:42)
[2016-11-01] MEDS: LEVOTHYROXINE SODIUM 150 MCG TABLET GT SCH (05:30)
[2016-11-01] MEDS: BACLOFEN (10 MG) 10 MG TABLET GT SCH ×3 (05:30→21:19)
[2016-11-01] MEDS: OMEPRAZOLE 20 MG GT SCH (05:30)
[2016-11-01 08:19] VITALS: BP 109/70
[2016-11-01] MEDS: GLYCOPYRROLATE 1 MG TABLET GT SCH ×2 (09:28→21:19)
[2016-11-01] MEDS: POLYETHYLENE GLYCOL 3350 17 GM POWD.PACK GT SCH (09:28)
[2016-11-01] MEDS: POLYVINYL ALCOHOL 15 ML BOTTLE EACHEYE SCH ×4 (09:28→21:19)
[2016-11-01] MEDS: AMIODARONE HCL 200 MG TABLET GT SCH (09:28)
[2016-11-01] MEDS: ACIDOPHILUS/BULGARICUS 1 EACH TAB.CHEW GT SCH (09:28)
[2016-11-01] MEDS: HEPARIN SODIUM, PORCINE 5000 UNITS/1 ML VIAL SQ SCH ×2 (09:29→21:20)
[2016-11-01] MEDS: CLOTRIMAZOLE/BETAMETASONE DIPROPIONATE 15 GM TUBE TP SCH ×2 (09:29→21:20)
[2016-11-01] MEDS: MULTIVITAMINS,THERAGRAN 1 UDTAB TABLET GT SCH (09:29)
[2016-11-01] MEDS: HYDROGEN PEROXIDE 480 ML BOTTLE TP SCH ×2 (09:29→21:20)
[2016-11-01] MEDS: ASCORBIC ACID 500 MG TABLET GT SCH (09:29)
[2016-11-01] MEDS: ZINC OXIDE 30 GM TUBE TP SCH ×4 (09:29→21:20)
[2016-11-01] MEDS: POTASSIUM CHLORIDE 20 MEQ/15 ML ML GT SCH (09:29)
[2016-11-01] MEDS: LORAZEPAM 0.5 MG TABLET GT PRN (16:09)
--- NOTE | 2016-11-01 19:00 | NUR ---
at the bedside, informed her that there is a redness noted in R lower buttocks, slightly raised and skin surface rough to touch. Informed that it will be referred to CHILD CARE CENTRE MANAGER tomorrow for appropriate treatment. No noted facial grimacing from resident.
[2016-11-01] MEDS: FINASTERIDE (5 MG) 5 MG TABLET GT SCH (20:00)
[2016-11-01 20:04] VITALS: BP 102/60
[2016-11-01] MEDS: MAGNESIUM HYDROXIDE 30 ML UDC GT PRN (21:20)
[2016-11-02] MEDS: ALBUTEROL FS 2.5 MG/3 ML VIAL.NEB NEB SCH ×4 (00:45→20:14)
[2016-11-02] MEDS: IPRATROPIUM NEB FS 0.5 MG/2.5 ML AMPUL.NEB NEB SCH ×4 (00:45→20:14)
[2016-11-02] MEDS: BACLOFEN (10 MG) 10 MG TABLET GT SCH ×3 (05:16→21:01)
[2016-11-02] MEDS: OMEPRAZOLE 20 MG GT SCH (05:16)
[2016-11-02] MEDS: LEVOTHYROXINE SODIUM 150 MCG TABLET GT SCH (05:16)
[2016-11-02] MEDS: POLYVINYL ALCOHOL 15 ML BOTTLE EACHEYE SCH ×4 (08:21→21:01)
[2016-11-02] MEDS: ACIDOPHILUS/BULGARICUS 1 EACH TAB.CHEW GT SCH (08:24)
[2016-11-02] MEDS: ASCORBIC ACID 500 MG TABLET GT SCH (08:24)
[2016-11-02] MEDS: MULTIVITAMINS,THERAGRAN 1 UDTAB TABLET GT SCH (08:24)
[2016-11-02] MEDS: POLYETHYLENE GLYCOL 3350 17 GM POWD.PACK GT SCH (08:24)
[2016-11-02] MEDS: POTASSIUM CHLORIDE 20 MEQ/15 ML ML GT SCH (08:24)
[2016-11-02] MEDS: AMIODARONE HCL 200 MG TABLET GT SCH (08:24)
[2016-11-02] MEDS: GLYCOPYRROLATE 1 MG TABLET GT SCH ×2 (08:24→21:01)
[2016-11-02] MEDS: ZINC OXIDE 30 GM TUBE TP SCH ×4 (08:25→21:02)
[2016-11-02] MEDS: HYDROGEN PEROXIDE 480 ML BOTTLE TP SCH ×2 (08:25→21:02)
[2016-11-02] MEDS: CLOTRIMAZOLE/BETAMETASONE DIPROPIONATE 15 GM TUBE TP SCH ×2 (08:25→21:02)
[2016-11-02] MEDS: HEPARIN SODIUM, PORCINE 5000 UNITS/1 ML VIAL SQ SCH ×2 (08:26→21:02)
--- NOTE | 2016-11-02 16:07 | NUR ---
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 Per Vivian, no need for isolation. Notified of the new order. All orders noted and carried out.
[2016-11-02] MEDS: FINASTERIDE (5 MG) 5 MG TABLET GT SCH (20:00)
[2016-11-02 20:09] VITALS: BP 102/62
[2016-11-02] MEDS: VALACYCLOVIR HCL 500 MG TABLET GT SCH (22:00)
[2016-11-03] MEDS: RENAL NOVASOURCE 1,000 ML BOTTLE GT PRN (00:17)
[2016-11-03] MEDS: IPRATROPIUM NEB FS 0.5 MG/2.5 ML AMPUL.NEB NEB SCH ×4 (01:45→19:53)
[2016-11-03] MEDS: ALBUTEROL FS 2.5 MG/3 ML VIAL.NEB NEB SCH ×4 (01:45→19:53)
[2016-11-03] MEDS: BACLOFEN (10 MG) 10 MG TABLET GT SCH ×3 (05:00→21:30)
[2016-11-03] MEDS: LEVOTHYROXINE SODIUM 150 MCG TABLET GT SCH (06:11)
[2016-11-03] MEDS: OMEPRAZOLE 20 MG GT SCH (06:11)
[2016-11-03 07:48] VITALS: BP 118/69
[2016-11-03] MEDS: AMIODARONE HCL 200 MG TABLET GT SCH (08:42)
[2016-11-03] MEDS: MULTIVITAMINS,THERAGRAN 1 UDTAB TABLET GT SCH (08:42)
[2016-11-03] MEDS: POLYVINYL ALCOHOL 15 ML BOTTLE EACHEYE SCH ×4 (08:42→21:30)
[2016-11-03] MEDS: POTASSIUM CHLORIDE 20 MEQ/15 ML ML GT SCH (08:42)
[2016-11-03] MEDS: ACIDOPHILUS/BULGARICUS 1 EACH TAB.CHEW GT SCH (08:42)
[2016-11-03] MEDS: GLYCOPYRROLATE 1 MG TABLET GT SCH ×2 (08:42→21:30)
[2016-11-03] MEDS: POLYETHYLENE GLYCOL 3350 17 GM POWD.PACK GT SCH (08:42)
[2016-11-03] MEDS: ASCORBIC ACID 500 MG TABLET GT SCH (09:05)
[2016-11-03] MEDS: VALACYCLOVIR HCL 500 MG TABLET GT SCH ×2 (09:05→21:30)
[2016-11-03] MEDS: HEPARIN SODIUM, PORCINE 5000 UNITS/1 ML VIAL SQ SCH ×2 (09:05→21:30)
[2016-11-03] MEDS: CLOTRIMAZOLE/BETAMETASONE DIPROPIONATE 15 GM TUBE TP SCH ×2 (09:06→21:30)
[2016-11-03] MEDS: HYDROGEN PEROXIDE 480 ML BOTTLE TP SCH ×2 (09:06→21:30)
[2016-11-03] MEDS: ZINC OXIDE 30 GM TUBE TP SCH ×4 (09:06→21:30)
[2016-11-03 19:44] VITALS: BP 124/76
[2016-11-03] MEDS: FINASTERIDE (5 MG) 5 MG TABLET GT SCH (20:30)
[2016-11-04] MEDS: IPRATROPIUM NEB FS 0.5 MG/2.5 ML AMPUL.NEB NEB SCH ×4 (01:52→19:45)
[2016-11-04] MEDS: ALBUTEROL FS 2.5 MG/3 ML VIAL.NEB NEB SCH ×4 (01:52→19:45)
[2016-11-04] MEDS: RENAL NOVASOURCE 1,000 ML BOTTLE GT PRN (03:57)
[2016-11-04] MEDS: OMEPRAZOLE 20 MG GT SCH (05:53)
[2016-11-04] MEDS: LEVOTHYROXINE SODIUM 150 MCG TABLET GT SCH (05:53)
[2016-11-04] MEDS: BACLOFEN (10 MG) 10 MG TABLET GT SCH ×3 (05:53→21:29)
[2016-11-04 07:52] VITALS: BP 109/73
[2016-11-04] MEDS: CLOTRIMAZOLE/BETAMETASONE DIPROPIONATE 15 GM TUBE TP SCH ×2 (09:00→21:30)
[2016-11-04] MEDS: HYDROGEN PEROXIDE 480 ML BOTTLE TP SCH ×2 (09:00→21:30)
[2016-11-04] MEDS: ZINC OXIDE 30 GM TUBE TP SCH ×4 (09:00→21:31)
[2016-11-04] MEDS: ACIDOPHILUS/BULGARICUS 1 EACH TAB.CHEW GT SCH (09:08)
[2016-11-04] MEDS: POLYETHYLENE GLYCOL 3350 17 GM POWD.PACK GT SCH (09:08)
[2016-11-04] MEDS: GLYCOPYRROLATE 1 MG TABLET GT SCH ×2 (09:08→21:29)
[2016-11-04] MEDS: AMIODARONE HCL 200 MG TABLET GT SCH (09:08)
[2016-11-04] MEDS: POLYVINYL ALCOHOL 15 ML BOTTLE EACHEYE SCH ×4 (09:08→21:29)
[2016-11-04] MEDS: MULTIVITAMINS,THERAGRAN 1 UDTAB TABLET GT SCH (09:08)
[2016-11-04] MEDS: POTASSIUM CHLORIDE 20 MEQ/15 ML ML GT SCH (09:08)
[2016-11-04] MEDS: VALACYCLOVIR HCL 500 MG TABLET GT SCH ×2 (09:08→21:29)
[2016-11-04] MEDS: ASCORBIC ACID 500 MG TABLET GT SCH (09:08)
[2016-11-04] MEDS: HEPARIN SODIUM, PORCINE 5000 UNITS/1 ML VIAL SQ SCH ×2 (09:09→21:30)
--- NOTE | 2016-11-04 12:25 | NUR ---
Received order to apply triple antibiotic ointment to left lower buttock blisters. Pt currently on Valcyclovir for it (herpes simplex). aware.
[2016-11-04 20:15] VITALS: BP 120/69
[2016-11-04] MEDS: FINASTERIDE (5 MG) 5 MG TABLET GT SCH (21:29)
[2016-11-04] MEDS: NEOMY SULF/BACITRAC ZN/POLY 15 GM TUBE TP SCH (21:31)
[2016-11-05] MEDS: IPRATROPIUM NEB FS 0.5 MG/2.5 ML AMPUL.NEB NEB SCH ×4 (01:14→19:53)
[2016-11-05] MEDS: ALBUTEROL FS 2.5 MG/3 ML VIAL.NEB NEB SCH ×4 (01:14→19:53)
[2016-11-05] MEDS: RENAL NOVASOURCE 1,000 ML BOTTLE GT PRN (03:42)
[2016-11-05] MEDS: BACLOFEN (10 MG) 10 MG TABLET GT SCH ×3 (05:45→20:47)
[2016-11-05] MEDS: OMEPRAZOLE 20 MG GT SCH (05:45)
[2016-11-05] MEDS: LEVOTHYROXINE SODIUM 150 MCG TABLET GT SCH (05:45)
[2016-11-05 07:51] VITALS: BP 112/71
[2016-11-05] MEDS: ERGOCALCIFEROL (VITAMIN D2) 8,000 UNIT/ML GT SCH (09:14)
[2016-11-05] MEDS: ASCORBIC ACID 500 MG TABLET GT SCH (09:14)
[2016-11-05] MEDS: POLYVINYL ALCOHOL 15 ML BOTTLE EACHEYE SCH ×4 (09:14→20:47)
[2016-11-05] MEDS: GLYCOPYRROLATE 1 MG TABLET GT SCH ×2 (09:14→20:47)
[2016-11-05] MEDS: POLYETHYLENE GLYCOL 3350 17 GM POWD.PACK GT SCH (09:14)
[2016-11-05] MEDS: VALACYCLOVIR HCL 500 MG TABLET GT SCH ×2 (09:14→20:47)
[2016-11-05] MEDS: AMIODARONE HCL 200 MG TABLET GT SCH (09:14)
[2016-11-05] MEDS: MULTIVITAMINS,THERAGRAN 1 UDTAB TABLET GT SCH (09:14)
[2016-11-05] MEDS: ACIDOPHILUS/BULGARICUS 1 EACH TAB.CHEW GT SCH (09:14)
[2016-11-05] MEDS: POTASSIUM CHLORIDE 20 MEQ/15 ML ML GT SCH (09:14)
[2016-11-05] MEDS: HYDROGEN PEROXIDE 480 ML BOTTLE TP SCH ×2 (09:18→20:50)
[2016-11-05] MEDS: ZINC OXIDE 30 GM TUBE TP SCH ×4 (09:18→20:50)
[2016-11-05] MEDS: CLOTRIMAZOLE/BETAMETASONE DIPROPIONATE 15 GM TUBE TP SCH ×2 (09:18→20:50)
[2016-11-05] MEDS: HEPARIN SODIUM, PORCINE 5000 UNITS/1 ML VIAL SQ SCH ×2 (09:18→20:49)
[2016-11-05] MEDS: NEOMY SULF/BACITRAC ZN/POLY 15 GM TUBE TP SCH ×2 (09:18→20:50)
[2016-11-05 19:57] VITALS: BP 131/72
[2016-11-05] MEDS: FINASTERIDE (5 MG) 5 MG TABLET GT SCH (20:46)
[2016-11-06] MEDS: IPRATROPIUM NEB FS 0.5 MG/2.5 ML AMPUL.NEB NEB SCH ×4 (01:34→19:41)
[2016-11-06] MEDS: ALBUTEROL FS 2.5 MG/3 ML VIAL.NEB NEB SCH ×4 (01:34→19:41)
[2016-11-06] MEDS: BACLOFEN (10 MG) 10 MG TABLET GT SCH ×3 (05:27→20:43)
[2016-11-06] MEDS: OMEPRAZOLE 20 MG GT SCH (05:27)
[2016-11-06] MEDS: LEVOTHYROXINE SODIUM 150 MCG TABLET GT SCH (05:27)
[2016-11-06 07:34] VITALS: BP 119/74
[2016-11-06] MEDS: POLYVINYL ALCOHOL 15 ML BOTTLE EACHEYE SCH ×4 (09:08→20:43)
[2016-11-06] MEDS: VALACYCLOVIR HCL 500 MG TABLET GT SCH ×2 (09:09→20:43)
[2016-11-06] MEDS: POTASSIUM CHLORIDE 20 MEQ/15 ML ML GT SCH (09:09)
[2016-11-06] MEDS: ACIDOPHILUS/BULGARICUS 1 EACH TAB.CHEW GT SCH (09:09)
[2016-11-06] MEDS: AMIODARONE HCL 200 MG TABLET GT SCH (09:09)
[2016-11-06] MEDS: ASCORBIC ACID 500 MG TABLET GT SCH (09:09)
[2016-11-06] MEDS: MULTIVITAMINS,THERAGRAN 1 UDTAB TABLET GT SCH (09:09)
[2016-11-06] MEDS: POLYETHYLENE GLYCOL 3350 17 GM POWD.PACK GT SCH (09:09)
[2016-11-06] MEDS: GLYCOPYRROLATE 1 MG TABLET GT SCH ×2 (09:09→20:43)
[2016-11-06] MEDS: HEPARIN SODIUM, PORCINE 5000 UNITS/1 ML VIAL SQ SCH ×2 (09:10→20:43)
[2016-11-06] MEDS: CLOTRIMAZOLE/BETAMETASONE DIPROPIONATE 15 GM TUBE TP SCH ×2 (10:45→20:44)
[2016-11-06] MEDS: ZINC OXIDE 30 GM TUBE TP SCH ×4 (10:45→20:44)
[2016-11-06] MEDS: HYDROGEN PEROXIDE 480 ML BOTTLE TP SCH ×2 (10:45→20:44)
[2016-11-06] MEDS: NEOMY SULF/BACITRAC ZN/POLY 15 GM TUBE TP SCH ×2 (10:45→20:44)
[2016-11-06 19:55] VITALS: BP 115/68
[2016-11-06] MEDS: FINASTERIDE (5 MG) 5 MG TABLET GT SCH (20:43)
[2016-11-07] MEDS: ALBUTEROL FS 2.5 MG/3 ML VIAL.NEB NEB SCH ×4 (01:33→19:30)
[2016-11-07] MEDS: IPRATROPIUM NEB FS 0.5 MG/2.5 ML AMPUL.NEB NEB SCH ×4 (01:33→19:30)
[2016-11-07] MEDS: LEVOTHYROXINE SODIUM 150 MCG TABLET GT SCH (05:24)
[2016-11-07] MEDS: OMEPRAZOLE 20 MG GT SCH (05:24)
[2016-11-07] MEDS: BACLOFEN (10 MG) 10 MG TABLET GT SCH ×3 (05:24→20:50)
[2016-11-07 07:46] VITALS: BP 123/81
[2016-11-07] MEDS: POLYVINYL ALCOHOL 15 ML BOTTLE EACHEYE SCH ×4 (08:53→20:50)
[2016-11-07] MEDS: ACIDOPHILUS/BULGARICUS 1 EACH TAB.CHEW GT SCH (08:54)
[2016-11-07] MEDS: MULTIVITAMINS,THERAGRAN 1 UDTAB TABLET GT SCH (08:54)
[2016-11-07] MEDS: POTASSIUM CHLORIDE 20 MEQ/15 ML ML GT SCH (08:54)
[2016-11-07] MEDS: VALACYCLOVIR HCL 500 MG TABLET GT SCH ×2 (08:54→20:51)
[2016-11-07] MEDS: POLYETHYLENE GLYCOL 3350 17 GM POWD.PACK GT SCH (08:54)
[2016-11-07] MEDS: AMIODARONE HCL 200 MG TABLET GT SCH (08:54)
[2016-11-07] MEDS: ASCORBIC ACID 500 MG TABLET GT SCH (08:54)
[2016-11-07] MEDS: GLYCOPYRROLATE 1 MG TABLET GT SCH ×2 (08:54→20:50)
[2016-11-07] MEDS: HEPARIN SODIUM, PORCINE 5000 UNITS/1 ML VIAL SQ SCH ×2 (08:55→20:52)
[2016-11-07] MEDS: ZINC OXIDE 30 GM TUBE TP SCH ×4 (09:48→20:53)
[2016-11-07] MEDS: CLOTRIMAZOLE/BETAMETASONE DIPROPIONATE 15 GM TUBE TP SCH ×2 (09:48→20:52)
[2016-11-07] MEDS: HYDROGEN PEROXIDE 480 ML BOTTLE TP SCH ×2 (09:48→20:52)
[2016-11-07] MEDS: NEOMY SULF/BACITRAC ZN/POLY 15 GM TUBE TP SCH ×2 (09:48→20:53)
--- NOTE | 2016-11-07 10:00 | NUR ---
Seen by Dr David with no new order.
[2016-11-07 20:43] VITALS: BP 101/65
[2016-11-07] MEDS: FINASTERIDE (5 MG) 5 MG TABLET GT SCH (20:50)
[2016-11-08] MEDS: IPRATROPIUM NEB FS 0.5 MG/2.5 ML AMPUL.NEB NEB SCH ×4 (01:24→20:28)
[2016-11-08] MEDS: ALBUTEROL FS 2.5 MG/3 ML VIAL.NEB NEB SCH ×4 (01:24→20:28)
[2016-11-08] MEDS: BACLOFEN (10 MG) 10 MG TABLET GT SCH ×3 (05:39→20:55)
[2016-11-08] MEDS: OMEPRAZOLE 20 MG GT SCH (05:39)
[2016-11-08] MEDS: LEVOTHYROXINE SODIUM 150 MCG TABLET GT SCH (05:39)
[2016-11-08 07:52] VITALS: BP 124/71
[2016-11-08] MEDS: POLYVINYL ALCOHOL 15 ML BOTTLE EACHEYE SCH ×4 (09:25→20:55)
[2016-11-08] MEDS: GLYCOPYRROLATE 1 MG TABLET GT SCH ×2 (09:26→20:55)
[2016-11-08] MEDS: MULTIVITAMINS,THERAGRAN 1 UDTAB TABLET GT SCH (09:26)
[2016-11-08] MEDS: POTASSIUM CHLORIDE 20 MEQ/15 ML ML GT SCH (09:26)
[2016-11-08] MEDS: AMIODARONE HCL 200 MG TABLET GT SCH (09:26)
[2016-11-08] MEDS: ACIDOPHILUS/BULGARICUS 1 EACH TAB.CHEW GT SCH (09:26)
[2016-11-08] MEDS: POLYETHYLENE GLYCOL 3350 17 GM POWD.PACK GT SCH (09:26)
[2016-11-08] MEDS: ASCORBIC ACID 500 MG TABLET GT SCH (09:26)
[2016-11-08] MEDS: VALACYCLOVIR HCL 500 MG TABLET GT SCH ×2 (09:26→20:55)
[2016-11-08] MEDS: NEOMY SULF/BACITRAC ZN/POLY 15 GM TUBE TP SCH ×2 (09:29→21:46)
[2016-11-08] MEDS: CLOTRIMAZOLE/BETAMETASONE DIPROPIONATE 15 GM TUBE TP SCH ×2 (09:29→21:46)
[2016-11-08] MEDS: ZINC OXIDE 30 GM TUBE TP SCH ×4 (09:29→21:46)
[2016-11-08] MEDS: HYDROGEN PEROXIDE 480 ML BOTTLE TP SCH ×2 (09:29→21:46)
[2016-11-08] MEDS: HEPARIN SODIUM, PORCINE 5000 UNITS/1 ML VIAL SQ SCH ×2 (09:29→20:56)
[2016-11-08 20:00] VITALS: BP 108/63
[2016-11-08] MEDS: FINASTERIDE (5 MG) 5 MG TABLET GT SCH (20:55)
[2016-11-09] MEDS: RENAL NOVASOURCE 1,000 ML BOTTLE GT PRN (00:39)
[2016-11-09] MEDS: ALBUTEROL FS 2.5 MG/3 ML VIAL.NEB NEB SCH ×4 (02:21→20:44)
[2016-11-09] MEDS: IPRATROPIUM NEB FS 0.5 MG/2.5 ML AMPUL.NEB NEB SCH ×4 (02:21→20:44)
[2016-11-09] MEDS: BACLOFEN (10 MG) 10 MG TABLET GT SCH ×3 (05:00→21:37)
[2016-11-09] MEDS: OMEPRAZOLE 20 MG GT SCH (06:25)
[2016-11-09] MEDS: LEVOTHYROXINE SODIUM 150 MCG TABLET GT SCH (06:25)
[2016-11-09 07:39] VITALS: BP 120/67
[2016-11-09] MEDS: POLYVINYL ALCOHOL 15 ML BOTTLE EACHEYE SCH ×4 (09:16→21:37)
[2016-11-09] MEDS: AMIODARONE HCL 200 MG TABLET GT SCH (09:48)
[2016-11-09] MEDS: GLYCOPYRROLATE 1 MG TABLET GT SCH ×2 (09:48→21:37)
[2016-11-09] MEDS: MULTIVITAMINS,THERAGRAN 1 UDTAB TABLET GT SCH (09:48)
[2016-11-09] MEDS: POTASSIUM CHLORIDE 20 MEQ/15 ML ML GT SCH (09:48)
[2016-11-09] MEDS: ASCORBIC ACID 500 MG TABLET GT SCH (09:48)
[2016-11-09] MEDS: POLYETHYLENE GLYCOL 3350 17 GM POWD.PACK GT SCH (09:48)
[2016-11-09] MEDS: VALACYCLOVIR HCL 500 MG TABLET GT SCH (09:48)
[2016-11-09] MEDS: ACIDOPHILUS/BULGARICUS 1 EACH TAB.CHEW GT SCH (09:48)
[2016-11-09] MEDS: HEPARIN SODIUM, PORCINE 5000 UNITS/1 ML VIAL SQ SCH ×2 (09:49→21:38)
[2016-11-09] MEDS: CLOTRIMAZOLE/BETAMETASONE DIPROPIONATE 15 GM TUBE TP SCH ×2 (09:49→21:38)
[2016-11-09] MEDS: NEOMY SULF/BACITRAC ZN/POLY 15 GM TUBE TP SCH ×2 (09:49→21:38)
[2016-11-09] MEDS: HYDROGEN PEROXIDE 480 ML BOTTLE TP SCH ×2 (09:49→21:38)
[2016-11-09] MEDS: ZINC OXIDE 30 GM TUBE TP SCH ×4 (09:49→21:38)
--- NOTE | 2016-11-09 13:30 | NUR ---
Seen by Vivian Posada NP with no new order.
[2016-11-09] MEDS: FINASTERIDE (5 MG) 5 MG TABLET GT SCH (20:00)
[2016-11-09 20:19] VITALS: BP 110/72
[2016-11-10] MEDS: ALBUTEROL FS 2.5 MG/3 ML VIAL.NEB NEB SCH ×4 (01:29→19:57)
[2016-11-10] MEDS: IPRATROPIUM NEB FS 0.5 MG/2.5 ML AMPUL.NEB NEB SCH ×4 (01:29→19:57)
[2016-11-10] MEDS: LEVOTHYROXINE SODIUM 150 MCG TABLET GT SCH (05:32)
[2016-11-10] MEDS: OMEPRAZOLE 20 MG GT SCH (05:32)
[2016-11-10] MEDS: BACLOFEN (10 MG) 10 MG TABLET GT SCH ×3 (05:32→21:06)
[2016-11-10 07:49] VITALS: BP 124/80
[2016-11-10] MEDS: GLYCOPYRROLATE 1 MG TABLET GT SCH ×2 (09:22→21:06)
[2016-11-10] MEDS: ASCORBIC ACID 500 MG TABLET GT SCH (09:22)
[2016-11-10] MEDS: AMIODARONE HCL 200 MG TABLET GT SCH (09:22)
[2016-11-10] MEDS: MULTIVITAMINS,THERAGRAN 1 UDTAB TABLET GT SCH (09:22)
[2016-11-10] MEDS: ACIDOPHILUS/BULGARICUS 1 EACH TAB.CHEW GT SCH (09:22)
[2016-11-10] MEDS: POTASSIUM CHLORIDE 20 MEQ/15 ML ML GT SCH (09:22)
[2016-11-10] MEDS: POLYETHYLENE GLYCOL 3350 17 GM POWD.PACK GT SCH (09:22)
[2016-11-10] MEDS: HYDROGEN PEROXIDE 480 ML BOTTLE TP SCH ×2 (09:32→21:07)
[2016-11-10] MEDS: POLYVINYL ALCOHOL 15 ML BOTTLE EACHEYE SCH ×4 (09:32→21:06)
[2016-11-10] MEDS: HEPARIN SODIUM, PORCINE 5000 UNITS/1 ML VIAL SQ SCH ×2 (09:32→21:07)
[2016-11-10] MEDS: ZINC OXIDE 30 GM TUBE TP SCH ×4 (09:32→21:07)
[2016-11-10] MEDS: CLOTRIMAZOLE/BETAMETASONE DIPROPIONATE 15 GM TUBE TP SCH ×2 (09:32→21:07)
[2016-11-10] MEDS: NEOMY SULF/BACITRAC ZN/POLY 15 GM TUBE TP SCH ×2 (09:32→21:07)
--- NOTE | 2016-11-10 10:54 | NUR ---
Seen and examined by Dr. Paniagua, NNO given.
[2016-11-10] MEDS: FINASTERIDE (5 MG) 5 MG TABLET GT SCH (20:00)
[2016-11-10 20:08] VITALS: BP 100/61
[2016-11-11] MEDS: ALBUTEROL FS 2.5 MG/3 ML VIAL.NEB NEB SCH ×4 (02:16→19:35)
[2016-11-11] MEDS: IPRATROPIUM NEB FS 0.5 MG/2.5 ML AMPUL.NEB NEB SCH ×4 (02:16→19:35)
[2016-11-11] MEDS: OMEPRAZOLE 20 MG GT SCH (05:41)
[2016-11-11] MEDS: BACLOFEN (10 MG) 10 MG TABLET GT SCH ×3 (05:41→20:58)
[2016-11-11] MEDS: LEVOTHYROXINE SODIUM 150 MCG TABLET GT SCH (05:41)
[2016-11-11 08:05] VITALS: BP 130/85
[2016-11-11] MEDS: POLYVINYL ALCOHOL 15 ML BOTTLE EACHEYE SCH ×4 (08:58→20:58)
[2016-11-11] MEDS: POLYETHYLENE GLYCOL 3350 17 GM POWD.PACK GT SCH (08:59)
[2016-11-11] MEDS: ASCORBIC ACID 500 MG TABLET GT SCH (08:59)
[2016-11-11] MEDS: POTASSIUM CHLORIDE 20 MEQ/15 ML ML GT SCH (08:59)
[2016-11-11] MEDS: AMIODARONE HCL 200 MG TABLET GT SCH (08:59)
[2016-11-11] MEDS: GLYCOPYRROLATE 1 MG TABLET GT SCH ×2 (08:59→20:58)
[2016-11-11] MEDS: HEPARIN SODIUM, PORCINE 5000 UNITS/1 ML VIAL SQ SCH ×2 (08:59→20:59)
[2016-11-11] MEDS: MULTIVITAMINS,THERAGRAN 1 UDTAB TABLET GT SCH (08:59)
[2016-11-11] MEDS: ACIDOPHILUS/BULGARICUS 1 EACH TAB.CHEW GT SCH (08:59)
[2016-11-11] MEDS: NEOMY SULF/BACITRAC ZN/POLY 15 GM TUBE TP SCH (09:00)
[2016-11-11] MEDS: ZINC OXIDE 30 GM TUBE TP SCH ×4 (09:00→20:59)
[2016-11-11] MEDS: CLOTRIMAZOLE/BETAMETASONE DIPROPIONATE 15 GM TUBE TP SCH ×2 (09:00→20:59)
[2016-11-11] MEDS: HYDROGEN PEROXIDE 480 ML BOTTLE TP SCH ×2 (09:00→20:59)
[2016-11-11 20:11] VITALS: BP 104/70
[2016-11-11] MEDS: FINASTERIDE (5 MG) 5 MG TABLET GT SCH (20:58)
[2016-11-12] MEDS: IPRATROPIUM NEB FS 0.5 MG/2.5 ML AMPUL.NEB NEB SCH ×4 (01:20→20:01)
[2016-11-12] MEDS: ALBUTEROL FS 2.5 MG/3 ML VIAL.NEB NEB SCH ×4 (01:20→20:01)
[2016-11-12] MEDS: OMEPRAZOLE 20 MG GT SCH (05:49)
[2016-11-12] MEDS: BACLOFEN (10 MG) 10 MG TABLET GT SCH ×3 (05:49→20:15)
[2016-11-12] MEDS: LEVOTHYROXINE SODIUM 150 MCG TABLET GT SCH (05:49)
[2016-11-12 08:24] VITALS: BP 131/76
[2016-11-12] MEDS: POLYVINYL ALCOHOL 15 ML BOTTLE EACHEYE SCH ×4 (08:45→20:15)
[2016-11-12] MEDS: GLYCOPYRROLATE 1 MG TABLET GT SCH ×2 (08:45→20:15)
[2016-11-12] MEDS: AMIODARONE HCL 200 MG TABLET GT SCH (08:45)
[2016-11-12] MEDS: ASCORBIC ACID 500 MG TABLET GT SCH (08:45)
[2016-11-12] MEDS: ACIDOPHILUS/BULGARICUS 1 EACH TAB.CHEW GT SCH (08:45)
[2016-11-12] MEDS: POTASSIUM CHLORIDE 20 MEQ/15 ML ML GT SCH (08:45)
[2016-11-12] MEDS: MULTIVITAMINS,THERAGRAN 1 UDTAB TABLET GT SCH (08:45)
[2016-11-12] MEDS: POLYETHYLENE GLYCOL 3350 17 GM POWD.PACK GT SCH (08:45)
[2016-11-12] MEDS: ERGOCALCIFEROL (VITAMIN D2) 8,000 UNIT/ML GT SCH (08:45)
[2016-11-12] MEDS: HEPARIN SODIUM, PORCINE 5000 UNITS/1 ML VIAL SQ SCH ×2 (08:46→20:28)
[2016-11-12] MEDS: CLOTRIMAZOLE/BETAMETASONE DIPROPIONATE 15 GM TUBE TP SCH ×2 (08:46→20:28)
[2016-11-12] MEDS: HYDROGEN PEROXIDE 480 ML BOTTLE TP SCH ×2 (08:46→20:28)
[2016-11-12] MEDS: ZINC OXIDE 30 GM TUBE TP SCH ×4 (08:46→20:28)
[2016-11-12] MEDS: MAGNESIUM HYDROXIDE 30 ML UDC GT PRN (10:23)
[2016-11-12 19:51] VITALS: BP 116/70
[2016-11-12] MEDS: FINASTERIDE (5 MG) 5 MG TABLET GT SCH (20:14)
[2016-11-13] MEDS: IPRATROPIUM NEB FS 0.5 MG/2.5 ML AMPUL.NEB NEB SCH ×4 (02:26→19:36)
[2016-11-13] MEDS: ALBUTEROL FS 2.5 MG/3 ML VIAL.NEB NEB SCH ×4 (02:26→19:36)
[2016-11-13] MEDS: BACLOFEN (10 MG) 10 MG TABLET GT SCH ×3 (05:42→20:50)
[2016-11-13] MEDS: LEVOTHYROXINE SODIUM 150 MCG TABLET GT SCH (05:44)
[2016-11-13] MEDS: OMEPRAZOLE 20 MG GT SCH (05:44)
[2016-11-13 07:50] VITALS: BP 125/74
[2016-11-13] MEDS: POLYVINYL ALCOHOL 15 ML BOTTLE EACHEYE SCH ×4 (09:31→20:50)
[2016-11-13] MEDS: ASCORBIC ACID 500 MG TABLET GT SCH (09:32)
[2016-11-13] MEDS: POLYETHYLENE GLYCOL 3350 17 GM POWD.PACK GT SCH (09:32)
[2016-11-13] MEDS: AMIODARONE HCL 200 MG TABLET GT SCH (09:32)
[2016-11-13] MEDS: ACIDOPHILUS/BULGARICUS 1 EACH TAB.CHEW GT SCH (09:32)
[2016-11-13] MEDS: POTASSIUM CHLORIDE 20 MEQ/15 ML ML GT SCH (09:32)
[2016-11-13] MEDS: GLYCOPYRROLATE 1 MG TABLET GT SCH ×2 (09:32→20:50)
[2016-11-13] MEDS: MULTIVITAMINS,THERAGRAN 1 UDTAB TABLET GT SCH (09:32)
[2016-11-13] MEDS: HEPARIN SODIUM, PORCINE 5000 UNITS/1 ML VIAL SQ SCH ×2 (09:32→20:51)
[2016-11-13] MEDS: CLOTRIMAZOLE/BETAMETASONE DIPROPIONATE 15 GM TUBE TP SCH ×2 (09:40→20:51)
[2016-11-13] MEDS: HYDROGEN PEROXIDE 480 ML BOTTLE TP SCH ×2 (09:40→20:50)
[2016-11-13] MEDS: ZINC OXIDE 30 GM TUBE TP SCH ×4 (09:40→20:50)
[2016-11-13 19:49] VITALS: BP 105/73
[2016-11-13] MEDS: FINASTERIDE (5 MG) 5 MG TABLET GT SCH (20:50)
[2016-11-14] MEDS: ALBUTEROL FS 2.5 MG/3 ML VIAL.NEB NEB SCH ×4 (01:31→19:48)
[2016-11-14] MEDS: IPRATROPIUM NEB FS 0.5 MG/2.5 ML AMPUL.NEB NEB SCH ×4 (01:31→19:48)
[2016-11-14] MEDS: OMEPRAZOLE 20 MG GT SCH (05:23)
[2016-11-14] MEDS: LEVOTHYROXINE SODIUM 150 MCG TABLET GT SCH (05:23)
[2016-11-14] MEDS: BACLOFEN (10 MG) 10 MG TABLET GT SCH ×3 (05:23→20:48)
[2016-11-14 07:51] VITALS: BP 136/76
[2016-11-14] MEDS: HEPARIN SODIUM, PORCINE 5000 UNITS/1 ML VIAL SQ SCH ×2 (09:00→20:50)
[2016-11-14] MEDS: POTASSIUM CHLORIDE 20 MEQ/15 ML ML GT SCH (09:00)
[2016-11-14] MEDS: HYDROGEN PEROXIDE 480 ML BOTTLE TP SCH ×2 (09:00→20:51)
[2016-11-14] MEDS: AMIODARONE HCL 200 MG TABLET GT SCH (09:00)
[2016-11-14] MEDS: ACIDOPHILUS/BULGARICUS 1 EACH TAB.CHEW GT SCH (09:00)
[2016-11-14] MEDS: GLYCOPYRROLATE 1 MG TABLET GT SCH ×2 (09:00→20:48)
[2016-11-14] MEDS: ZINC OXIDE 30 GM TUBE TP SCH ×4 (09:00→20:51)
[2016-11-14] MEDS: CLOTRIMAZOLE/BETAMETASONE DIPROPIONATE 15 GM TUBE TP SCH ×2 (09:00→20:51)
[2016-11-14] MEDS: MULTIVITAMINS,THERAGRAN 1 UDTAB TABLET GT SCH (09:00)
[2016-11-14] MEDS: ASCORBIC ACID 500 MG TABLET GT SCH (09:00)
[2016-11-14] MEDS: POLYETHYLENE GLYCOL 3350 17 GM POWD.PACK GT SCH (09:00)
[2016-11-14] MEDS: POLYVINYL ALCOHOL 15 ML BOTTLE EACHEYE SCH ×4 (09:59→20:48)
[2016-11-14 19:46] VITALS: BP 113/63
[2016-11-14] MEDS: FINASTERIDE (5 MG) 5 MG TABLET GT SCH (20:48)
--- NOTE | 2016-11-14 21:00 | NUR ---
RN NOTES Received order from Dr. Paniagua to continue Heparin 5,000 units SQ q12hrs for DVT prophylaxis, noted and carried out.
[2016-11-15] MEDS: IPRATROPIUM NEB FS 0.5 MG/2.5 ML AMPUL.NEB NEB SCH ×4 (02:10→20:03)
[2016-11-15] MEDS: ALBUTEROL FS 2.5 MG/3 ML VIAL.NEB NEB SCH ×4 (02:10→20:03)
[2016-11-15] MEDS: BACLOFEN (10 MG) 10 MG TABLET GT SCH ×3 (05:26→21:09)
[2016-11-15] MEDS: LEVOTHYROXINE SODIUM 150 MCG TABLET GT SCH (05:26)
[2016-11-15] MEDS: OMEPRAZOLE 20 MG GT SCH (05:26)
[2016-11-15 07:48] VITALS: BP 104/71
[2016-11-15] MEDS: POLYVINYL ALCOHOL 15 ML BOTTLE EACHEYE SCH ×4 (08:20→21:09)
[2016-11-15] MEDS: AMIODARONE HCL 200 MG TABLET GT SCH (08:24)
[2016-11-15] MEDS: HEPARIN SODIUM, PORCINE 5000 UNITS/1 ML VIAL SQ SCH ×2 (08:24→21:10)
[2016-11-15] MEDS: ASCORBIC ACID 500 MG TABLET GT SCH (08:24)
[2016-11-15] MEDS: ACIDOPHILUS/BULGARICUS 1 EACH TAB.CHEW GT SCH (08:24)
[2016-11-15] MEDS: POLYETHYLENE GLYCOL 3350 17 GM POWD.PACK GT SCH (08:24)
[2016-11-15] MEDS: POTASSIUM CHLORIDE 20 MEQ/15 ML ML GT SCH (08:24)
[2016-11-15] MEDS: MULTIVITAMINS,THERAGRAN 1 UDTAB TABLET GT SCH (08:24)
[2016-11-15] MEDS: GLYCOPYRROLATE 1 MG TABLET GT SCH ×2 (08:24→21:09)
[2016-11-15] MEDS: CLOTRIMAZOLE/BETAMETASONE DIPROPIONATE 15 GM TUBE TP SCH ×2 (08:25→21:10)
[2016-11-15] MEDS: HYDROGEN PEROXIDE 480 ML BOTTLE TP SCH ×2 (08:25→21:10)
[2016-11-15] MEDS: ZINC OXIDE 30 GM TUBE TP SCH ×4 (08:25→21:10)
--- NOTE | 2016-11-15 15:00 | NUR ---
Seen and examined by Dr. Paniagua, reported that is requesting a blood draw or urine culture because patient had low grade temperature last night of 99.5 and claims that urine is red. At this time urine yellow & no hematuria. Referred sputum to Dr. Paniagua which is thick and yellow, no new order given. Afebrile at 98.6 He said patient has chronic colonization due to presence of indwelling catheter. notified of Dr. Paniagua's response.
--- NOTE | 2016-11-15 17:30 | NUR ---
Seen by Vivian Posada NP with no new order.
[2016-11-15 19:35] VITALS: BP 138/72
[2016-11-15] MEDS: FINASTERIDE (5 MG) 5 MG TABLET GT SCH (20:00)
[2016-11-15] MEDS: RENAL NOVASOURCE 1,000 ML BOTTLE GT PRN (23:18)
[2016-11-16] MEDS: IPRATROPIUM NEB FS 0.5 MG/2.5 ML AMPUL.NEB NEB SCH ×4 (01:06→19:24)
[2016-11-16] MEDS: ALBUTEROL FS 2.5 MG/3 ML VIAL.NEB NEB SCH ×4 (01:07→19:24)
[2016-11-16] MEDS: OMEPRAZOLE 20 MG GT SCH (05:27)
[2016-11-16] MEDS: BACLOFEN (10 MG) 10 MG TABLET GT SCH ×3 (05:27→20:52)
[2016-11-16] MEDS: LEVOTHYROXINE SODIUM 150 MCG TABLET GT SCH (05:27)
[2016-11-16 07:27] VITALS: BP 112/59
[2016-11-16] MEDS: GLYCOPYRROLATE 1 MG TABLET GT SCH ×2 (09:00→20:52)
[2016-11-16] MEDS: POLYETHYLENE GLYCOL 3350 17 GM POWD.PACK GT SCH (09:00)
[2016-11-16] MEDS: POLYVINYL ALCOHOL 15 ML BOTTLE EACHEYE SCH ×4 (09:00→20:52)
[2016-11-16] MEDS: ASCORBIC ACID 500 MG TABLET GT SCH (09:00)
[2016-11-16] MEDS: ACIDOPHILUS/BULGARICUS 1 EACH TAB.CHEW GT SCH (09:00)
[2016-11-16] MEDS: POTASSIUM CHLORIDE 20 MEQ/15 ML ML GT SCH (09:00)
[2016-11-16] MEDS: MULTIVITAMINS,THERAGRAN 1 UDTAB TABLET GT SCH (09:00)
[2016-11-16] MEDS: AMIODARONE HCL 200 MG TABLET GT SCH (09:00)
[2016-11-16] MEDS: CLOTRIMAZOLE/BETAMETASONE DIPROPIONATE 15 GM TUBE TP SCH ×2 (09:01→20:53)
[2016-11-16] MEDS: HYDROGEN PEROXIDE 480 ML BOTTLE TP SCH ×2 (09:01→20:53)
[2016-11-16] MEDS: ZINC OXIDE 30 GM TUBE TP SCH ×2 (09:01→20:53)
[2016-11-16] MEDS: HEPARIN SODIUM, PORCINE 5000 UNITS/1 ML VIAL SQ SCH ×2 (09:01→20:53)
--- NOTE | 2016-11-16 10:33 | NUR ---
Resident's hand funnel coater Juan Mckenzie came by to speak with community mental health social worker and inpatient nursing aide. He was asking if they have seen other family member's visiting resident. SW informed him that he has only seen resident's daughter one time since she started working here since January 2016. Appreciated information.
--- NOTE | 2016-11-16 16:00 | NUR ---
Order clarified for [place] for moderate pain Dr Arcelia kwon noted and carried out.
[2016-11-16 20:29] VITALS: BP 119/70
[2016-11-16] MEDS: FINASTERIDE (5 MG) 5 MG TABLET GT SCH (20:52)
[2016-11-17] MEDS: ALBUTEROL FS 2.5 MG/3 ML VIAL.NEB NEB SCH ×4 (01:26→19:33)
[2016-11-17] MEDS: IPRATROPIUM NEB FS 0.5 MG/2.5 ML AMPUL.NEB NEB SCH ×4 (01:26→19:33)
[2016-11-17] MEDS: RENAL NOVASOURCE 1,000 ML BOTTLE GT PRN (05:05)
[2016-11-17] MEDS: BACLOFEN (10 MG) 10 MG TABLET GT SCH ×3 (05:05→20:18)
[2016-11-17] MEDS: LEVOTHYROXINE SODIUM 150 MCG TABLET GT SCH (05:05)
[2016-11-17] MEDS: OMEPRAZOLE 20 MG GT SCH (05:05)
[2016-11-17] MEDS: POLYVINYL ALCOHOL 15 ML BOTTLE EACHEYE SCH ×4 (08:18→20:18)
[2016-11-17] MEDS: ASCORBIC ACID 500 MG TABLET GT SCH (08:19)
[2016-11-17] MEDS: CLOTRIMAZOLE/BETAMETASONE DIPROPIONATE 15 GM TUBE TP SCH ×2 (08:19→20:22)
[2016-11-17] MEDS: AMIODARONE HCL 200 MG TABLET GT SCH (08:19)
[2016-11-17] MEDS: POLYETHYLENE GLYCOL 3350 17 GM POWD.PACK GT SCH (08:19)
[2016-11-17] MEDS: ACIDOPHILUS/BULGARICUS 1 EACH TAB.CHEW GT SCH (08:19)
[2016-11-17] MEDS: HYDROGEN PEROXIDE 480 ML BOTTLE TP SCH ×2 (08:19→20:22)
[2016-11-17] MEDS: GLYCOPYRROLATE 1 MG TABLET GT SCH ×2 (08:19→20:18)
[2016-11-17] MEDS: HEPARIN SODIUM, PORCINE 5000 UNITS/1 ML VIAL SQ SCH ×2 (08:19→20:19)
[2016-11-17] MEDS: POTASSIUM CHLORIDE 20 MEQ/15 ML ML GT SCH (08:19)
[2016-11-17] MEDS: MULTIVITAMINS,THERAGRAN 1 UDTAB TABLET GT SCH (08:19)
[2016-11-17] MEDS: ZINC OXIDE 30 GM TUBE TP SCH ×2 (08:20→20:22)
[2016-11-17 08:34] VITALS: BP 107/74
--- NOTE | 2016-11-17 14:04 | NUR ---
IDT meeting held, family unable to attend. IDT team reviewed medications, treatment and labs no new order given at this time.
--- NOTE | 2016-11-17 15:04 | NUR ---
late entry: 11-16-16 Juan Magaly, teacher industrial arts for Richardjuan m Bradley had meeting with Mrs. Bradley and had a brief meeting with myself and Xiomara Paz. Mr. Mckenzie asked how often the adult children of the resident came to visit; Mr. Mckenzie was informed that I had not seen the adult children since last summer. Mr. Mckenzie said he is the resident's teacher industrial arts for a case involving conservatorship for the resident. At this time Mrs. Bradley is conservator for Mr. Bradley. The meeting took place at approximately [phone].
[2016-11-17] MEDS: FINASTERIDE (5 MG) 5 MG TABLET GT SCH (20:17)
[2016-11-17 20:32] VITALS: BP 122/75
[2016-11-18] MEDS: IPRATROPIUM NEB FS 0.5 MG/2.5 ML AMPUL.NEB NEB SCH ×4 (01:48→19:42)
[2016-11-18] MEDS: ALBUTEROL FS 2.5 MG/3 ML VIAL.NEB NEB SCH ×4 (01:48→19:42)
[2016-11-18] MEDS: BACLOFEN (10 MG) 10 MG TABLET GT SCH ×3 (05:45→21:24)
[2016-11-18] MEDS: LEVOTHYROXINE SODIUM 150 MCG TABLET GT SCH (05:45)
[2016-11-18] MEDS: OMEPRAZOLE 20 MG GT SCH (05:45)
--- NOTE | 2016-11-18 06:50 | NUR ---
Per patient noted with increase secretions than usual.No respiratory distress noted.Afebrile,will continue to monitor.
[2016-11-18 07:50] VITALS: BP 100/62
[2016-11-18] MEDS: POLYVINYL ALCOHOL 15 ML BOTTLE EACHEYE SCH ×4 (08:52→21:24)
[2016-11-18] MEDS: HEPARIN SODIUM, PORCINE 5000 UNITS/1 ML VIAL SQ SCH ×2 (08:52→21:24)
[2016-11-18] MEDS: MULTIVITAMINS,THERAGRAN 1 UDTAB TABLET GT SCH (08:52)
[2016-11-18] MEDS: POTASSIUM CHLORIDE 20 MEQ/15 ML ML GT SCH (08:52)
[2016-11-18] MEDS: POLYETHYLENE GLYCOL 3350 17 GM POWD.PACK GT SCH (08:52)
[2016-11-18] MEDS: ACIDOPHILUS/BULGARICUS 1 EACH TAB.CHEW GT SCH (08:52)
[2016-11-18] MEDS: GLYCOPYRROLATE 1 MG TABLET GT SCH ×2 (08:52→17:05)
[2016-11-18] MEDS: ASCORBIC ACID 500 MG TABLET GT SCH (08:52)
[2016-11-18] MEDS: AMIODARONE HCL 200 MG TABLET GT SCH (08:52)
[2016-11-18] MEDS: HYDROGEN PEROXIDE 480 ML BOTTLE TP SCH ×2 (08:53→21:25)
[2016-11-18] MEDS: ZINC OXIDE 30 GM TUBE TP SCH ×2 (08:53→21:25)
[2016-11-18] MEDS: CLOTRIMAZOLE/BETAMETASONE DIPROPIONATE 15 GM TUBE TP SCH ×2 (08:53→21:25)
--- NOTE | 2016-11-18 18:08 | NUR ---
Left a message to Mrs Bradley notifying her that a new order was obtained from Dr. David to increase the frequency of Robinol to Q 6hours for his increase secretions.
--- NOTE | 2016-11-18 18:30 | NUR ---
Spoke with patient's , notified her of order to increase Robinul d/t excessive amount of secretions. appreciative of call.
--- NOTE | 2016-11-18 18:44 | NUR ---
Per INVESTMENT ACCOUNTANT report, patient had x5 soft BM last night. No diarrhea noted.
[2016-11-18 19:58] VITALS: BP 120/77
[2016-11-18] MEDS: FINASTERIDE (5 MG) 5 MG TABLET GT SCH (20:00)
[2016-11-18 20:05] VITALS: BP 110/72
[2016-11-19] MEDS: GLYCOPYRROLATE 1 MG TABLET GT SCH ×5 (00:32→23:17)
[2016-11-19] MEDS: ALBUTEROL FS 2.5 MG/3 ML VIAL.NEB NEB SCH ×4 (01:49→19:36)
[2016-11-19] MEDS: IPRATROPIUM NEB FS 0.5 MG/2.5 ML AMPUL.NEB NEB SCH ×4 (01:49→19:36)
[2016-11-19] MEDS: BACLOFEN (10 MG) 10 MG TABLET GT SCH ×3 (05:00→21:20)
[2016-11-19] MEDS: RENAL NOVASOURCE 1,000 ML BOTTLE GT PRN (06:17)
[2016-11-19] MEDS: OMEPRAZOLE 20 MG GT SCH (06:17)
[2016-11-19] MEDS: LEVOTHYROXINE SODIUM 150 MCG TABLET GT SCH (06:17)
[2016-11-19 08:19] VITALS: BP 126/74
[2016-11-19] MEDS: MULTIVITAMINS,THERAGRAN 1 UDTAB TABLET GT SCH (09:00)
[2016-11-19] MEDS: ERGOCALCIFEROL (VITAMIN D2) 8,000 UNIT/ML GT SCH (09:00)
[2016-11-19] MEDS: ZINC OXIDE 30 GM TUBE TP SCH ×2 (09:00→21:33)
[2016-11-19] MEDS: AMIODARONE HCL 200 MG TABLET GT SCH (09:00)
[2016-11-19] MEDS: HYDROGEN PEROXIDE 480 ML BOTTLE TP SCH ×2 (09:00→21:22)
[2016-11-19] MEDS: POTASSIUM CHLORIDE 20 MEQ/15 ML ML GT SCH (09:00)
[2016-11-19] MEDS: HEPARIN SODIUM, PORCINE 5000 UNITS/1 ML VIAL SQ SCH ×2 (09:00→21:22)
[2016-11-19] MEDS: ACIDOPHILUS/BULGARICUS 1 EACH TAB.CHEW GT SCH (09:00)
[2016-11-19] MEDS: CLOTRIMAZOLE/BETAMETASONE DIPROPIONATE 15 GM TUBE TP SCH ×2 (09:00→21:33)
[2016-11-19] MEDS: ASCORBIC ACID 500 MG TABLET GT SCH (09:00)
[2016-11-19] MEDS: POLYVINYL ALCOHOL 15 ML BOTTLE EACHEYE SCH ×4 (09:00→21:20)
[2016-11-19] MEDS: POLYETHYLENE GLYCOL 3350 17 GM POWD.PACK GT SCH (09:00)
[2016-11-19 17:42] VITALS: BP 103/65
[2016-11-19 19:42] VITALS: BP 103/65
[2016-11-19] MEDS: FINASTERIDE (5 MG) 5 MG TABLET GT SCH (21:00)
[2016-11-20] MEDS: IPRATROPIUM NEB FS 0.5 MG/2.5 ML AMPUL.NEB NEB SCH ×4 (02:15→20:18)
[2016-11-20] MEDS: ALBUTEROL FS 2.5 MG/3 ML VIAL.NEB NEB SCH ×4 (02:15→20:18)
[2016-11-20] MEDS: GLYCOPYRROLATE 1 MG TABLET GT SCH ×4 (05:43→23:22)
[2016-11-20] MEDS: OMEPRAZOLE 20 MG GT SCH (05:43)
[2016-11-20] MEDS: LEVOTHYROXINE SODIUM 150 MCG TABLET GT SCH (05:43)
[2016-11-20] MEDS: BACLOFEN (10 MG) 10 MG TABLET GT SCH ×3 (05:43→20:16)
[2016-11-20] MEDS: RENAL NOVASOURCE 1,000 ML BOTTLE GT PRN (05:43)
[2016-11-20 07:52] VITALS: BP 109/73
[2016-11-20] MEDS: HYDROGEN PEROXIDE 480 ML BOTTLE TP SCH ×2 (09:00→20:17)
[2016-11-20] MEDS: ZINC OXIDE 30 GM TUBE TP SCH ×2 (09:00→20:17)
[2016-11-20] MEDS: CLOTRIMAZOLE/BETAMETASONE DIPROPIONATE 15 GM TUBE TP SCH ×2 (09:00→20:17)
[2016-11-20] MEDS: POLYVINYL ALCOHOL 15 ML BOTTLE EACHEYE SCH ×4 (10:05→20:16)
[2016-11-20] MEDS: HEPARIN SODIUM, PORCINE 5000 UNITS/1 ML VIAL SQ SCH ×2 (10:10→20:16)
[2016-11-20] MEDS: POTASSIUM CHLORIDE 20 MEQ/15 ML ML GT SCH (10:10)
[2016-11-20] MEDS: AMIODARONE HCL 200 MG TABLET GT SCH (10:10)
[2016-11-20] MEDS: ASCORBIC ACID 500 MG TABLET GT SCH (10:10)
[2016-11-20] MEDS: ACIDOPHILUS/BULGARICUS 1 EACH TAB.CHEW GT SCH (10:10)
[2016-11-20] MEDS: POLYETHYLENE GLYCOL 3350 17 GM POWD.PACK GT SCH (10:10)
[2016-11-20] MEDS: MULTIVITAMINS,THERAGRAN 1 UDTAB TABLET GT SCH (10:10)
[2016-11-20 19:45] VITALS: BP 98/62
[2016-11-20] MEDS: FINASTERIDE (5 MG) 5 MG TABLET GT SCH (20:16)
[2016-11-21] MEDS: ALBUTEROL FS 2.5 MG/3 ML VIAL.NEB NEB SCH ×4 (01:19→20:22)
[2016-11-21] MEDS: IPRATROPIUM NEB FS 0.5 MG/2.5 ML AMPUL.NEB NEB SCH ×4 (01:19→20:22)
[2016-11-21] MEDS: OMEPRAZOLE 20 MG GT SCH (05:46)
[2016-11-21] MEDS: LEVOTHYROXINE SODIUM 150 MCG TABLET GT SCH (05:46)
[2016-11-21] MEDS: GLYCOPYRROLATE 1 MG TABLET GT SCH ×3 (05:46→17:10)
[2016-11-21] MEDS: BACLOFEN (10 MG) 10 MG TABLET GT SCH ×3 (05:46→20:29)
[2016-11-21 07:54] VITALS: BP 113/65
[2016-11-21] MEDS: HYDROGEN PEROXIDE 480 ML BOTTLE TP SCH ×2 (09:00→20:29)
[2016-11-21] MEDS: POLYETHYLENE GLYCOL 3350 17 GM POWD.PACK GT SCH (09:00)
[2016-11-21] MEDS: POTASSIUM CHLORIDE 20 MEQ/15 ML ML GT SCH (09:00)
[2016-11-21] MEDS: POLYVINYL ALCOHOL 15 ML BOTTLE EACHEYE SCH ×4 (09:00→20:29)
[2016-11-21] MEDS: MULTI-DELYN GT SCH (09:00)
[2016-11-21] MEDS: ZINC OXIDE 30 GM TUBE TP SCH ×2 (09:00→20:30)
[2016-11-21] MEDS: ACIDOPHILUS/BULGARICUS 1 EACH TAB.CHEW GT SCH (09:00)
[2016-11-21] MEDS: AMIODARONE HCL 200 MG TABLET GT SCH (09:00)
[2016-11-21] MEDS: HEPARIN SODIUM, PORCINE 5000 UNITS/1 ML VIAL SQ SCH ×2 (09:00→20:29)
[2016-11-21] MEDS: CLOTRIMAZOLE/BETAMETASONE DIPROPIONATE 15 GM TUBE TP SCH ×2 (09:00→20:30)
[2016-11-21] MEDS: ASCORBIC ACID 500 MG TABLET GT SCH (09:00)
--- NOTE | 2016-11-21 09:30 | NUR ---
Seen by Dr David with no new order.
[2016-11-21 20:09] VITALS: BP 119/78
[2016-11-21] MEDS: FINASTERIDE (5 MG) 5 MG TABLET GT SCH (20:29)
[2016-11-22] MEDS: ALBUTEROL FS 2.5 MG/3 ML VIAL.NEB NEB SCH ×4 (01:58→20:20)
[2016-11-22] MEDS: IPRATROPIUM NEB FS 0.5 MG/2.5 ML AMPUL.NEB NEB SCH ×4 (01:58→20:20)
[2016-11-22] MEDS: BACLOFEN (10 MG) 10 MG TABLET GT SCH ×3 (05:17→20:33)
[2016-11-22] MEDS: GLYCOPYRROLATE 1 MG TABLET GT SCH ×5 (05:17→23:22)
[2016-11-22] MEDS: LEVOTHYROXINE SODIUM 150 MCG TABLET GT SCH (05:17)
[2016-11-22] MEDS: OMEPRAZOLE 20 MG GT SCH (05:17)
[2016-11-22 07:56] VITALS: BP 114/62
[2016-11-22] MEDS: ACIDOPHILUS/BULGARICUS 1 EACH TAB.CHEW GT SCH (09:03)
[2016-11-22] MEDS: POLYETHYLENE GLYCOL 3350 17 GM POWD.PACK GT SCH (09:03)
[2016-11-22] MEDS: POTASSIUM CHLORIDE 20 MEQ/15 ML ML GT SCH (09:03)
[2016-11-22] MEDS: MULTI-DELYN GT SCH (09:03)
[2016-11-22] MEDS: AMIODARONE HCL 200 MG TABLET GT SCH (09:03)
[2016-11-22] MEDS: ASCORBIC ACID 500 MG TABLET GT SCH (09:03)
[2016-11-22] MEDS: POLYVINYL ALCOHOL 15 ML BOTTLE EACHEYE SCH ×4 (09:03→20:33)
[2016-11-22] MEDS: HEPARIN SODIUM, PORCINE 5000 UNITS/1 ML VIAL SQ SCH ×2 (09:05→20:34)
[2016-11-22] MEDS: ZINC OXIDE 30 GM TUBE TP SCH ×2 (09:05→20:35)
[2016-11-22] MEDS: HYDROGEN PEROXIDE 480 ML BOTTLE TP SCH ×2 (09:05→20:34)
[2016-11-22] MEDS: CLOTRIMAZOLE/BETAMETASONE DIPROPIONATE 15 GM TUBE TP SCH ×2 (09:05→20:34)
[2016-11-22] MEDS: RENAL NOVASOURCE 1,000 ML BOTTLE GT PRN (18:22)
[2016-11-22 19:40] VITALS: BP 126/72
[2016-11-22] MEDS: FINASTERIDE (5 MG) 5 MG TABLET GT SCH (20:33)
[2016-11-23 00:15] VITALS: BP 122/75
[2016-11-23] MEDS: ALBUTEROL FS 2.5 MG/3 ML VIAL.NEB NEB SCH ×4 (01:31→19:58)
[2016-11-23] MEDS: IPRATROPIUM NEB FS 0.5 MG/2.5 ML AMPUL.NEB NEB SCH ×4 (01:31→19:58)
[2016-11-23] MEDS: BACLOFEN (10 MG) 10 MG TABLET GT SCH ×3 (05:06→21:00)
[2016-11-23] MEDS: LEVOTHYROXINE SODIUM 150 MCG TABLET GT SCH (05:06)
[2016-11-23] MEDS: GLYCOPYRROLATE 1 MG TABLET GT SCH ×3 (05:06→17:15)
[2016-11-23] MEDS: OMEPRAZOLE 20 MG GT SCH (05:06)
--- NOTE | 2016-11-23 06:51 | NUR ---
PT HAD 99.2 TEMP BEGINNING OF THE SHIFT,NO DISTRESS NOTED.BED BATH GIVEN BY HAND CLOTH EXAMINER, AT BEDSIDE.TEMP NOW 98.8 NO CHANGE OF CONDITION,PT HAD 2 LARGE SOFT BM.WILL CONTINUE TO MONITOR.
[2016-11-23 08:02] VITALS: BP 111/68
[2016-11-23] MEDS: HYDROGEN PEROXIDE 480 ML BOTTLE TP SCH ×2 (09:00→21:00)
[2016-11-23] MEDS: AMIODARONE HCL 200 MG TABLET GT SCH (09:25)
[2016-11-23] MEDS: ZINC OXIDE 30 GM TUBE TP SCH ×2 (09:25→21:00)
[2016-11-23] MEDS: POLYVINYL ALCOHOL 15 ML BOTTLE EACHEYE SCH ×4 (09:25→21:00)
[2016-11-23] MEDS: ACIDOPHILUS/BULGARICUS 1 EACH TAB.CHEW GT SCH (09:25)
[2016-11-23] MEDS: POLYETHYLENE GLYCOL 3350 17 GM POWD.PACK GT SCH (09:25)
[2016-11-23] MEDS: MULTI-DELYN GT SCH (09:25)
[2016-11-23] MEDS: POTASSIUM CHLORIDE 20 MEQ/15 ML ML GT SCH (09:25)
[2016-11-23] MEDS: HEPARIN SODIUM, PORCINE 5000 UNITS/1 ML VIAL SQ SCH ×2 (09:25→21:00)
[2016-11-23] MEDS: CLOTRIMAZOLE/BETAMETASONE DIPROPIONATE 15 GM TUBE TP SCH (09:25)
[2016-11-23] MEDS: ASCORBIC ACID 500 MG TABLET GT SCH (09:25)
[2016-11-23] MEDS: FINASTERIDE (5 MG) 5 MG TABLET GT SCH (20:00)
[2016-11-23 20:29] VITALS: BP 93/56
[2016-11-24] MEDS: ALBUTEROL FS 2.5 MG/3 ML VIAL.NEB NEB SCH ×4 (00:45→20:02)
[2016-11-24] MEDS: IPRATROPIUM NEB FS 0.5 MG/2.5 ML AMPUL.NEB NEB SCH ×4 (00:45→20:02)
[2016-11-24] MEDS: GLYCOPYRROLATE 1 MG TABLET GT SCH ×4 (00:49→18:43)
[2016-11-24] MEDS: LEVOTHYROXINE SODIUM 150 MCG TABLET GT SCH (05:54)
[2016-11-24] MEDS: BACLOFEN (10 MG) 10 MG TABLET GT SCH ×3 (05:54→20:25)
[2016-11-24] MEDS: OMEPRAZOLE 20 MG GT SCH (05:54)
[2016-11-24 07:48] VITALS: BP 108/70
[2016-11-24] MEDS: POLYVINYL ALCOHOL 15 ML BOTTLE EACHEYE SCH ×4 (09:06→20:25)
[2016-11-24] MEDS: ACIDOPHILUS/BULGARICUS 1 EACH TAB.CHEW GT SCH (09:07)
[2016-11-24] MEDS: ASCORBIC ACID 500 MG TABLET GT SCH (09:07)
[2016-11-24] MEDS: POLYETHYLENE GLYCOL 3350 17 GM POWD.PACK GT SCH (09:07)
[2016-11-24] MEDS: HYDROGEN PEROXIDE 480 ML BOTTLE TP SCH ×2 (09:07→20:25)
[2016-11-24] MEDS: HEPARIN SODIUM, PORCINE 5000 UNITS/1 ML VIAL SQ SCH ×2 (09:07→20:25)
[2016-11-24] MEDS: MULTI-DELYN GT SCH (09:07)
[2016-11-24] MEDS: POTASSIUM CHLORIDE 20 MEQ/15 ML ML GT SCH (09:07)
[2016-11-24] MEDS: AMIODARONE HCL 200 MG TABLET GT SCH (09:07)
[2016-11-24] MEDS: ZINC OXIDE 30 GM TUBE TP SCH ×2 (09:08→20:25)
--- NOTE | 2016-11-24 18:21 | NUR ---
Seen and examined by Dr. Paniagua, no new order given. He stated to educate patient's that if she asked for urine culture it is not advisable unless the patient is manifesting symptoms such as fever, hypotension, hematuria etc. Endorsed.
[2016-11-24 19:40] VITALS: BP 113/72
[2016-11-24] MEDS: FINASTERIDE (5 MG) 5 MG TABLET GT SCH (20:25)
[2016-11-25] MEDS: GLYCOPYRROLATE 1 MG TABLET GT SCH ×5 (00:33→23:09)
[2016-11-25] MEDS: ALBUTEROL FS 2.5 MG/3 ML VIAL.NEB NEB SCH ×4 (01:30→19:44)
[2016-11-25] MEDS: IPRATROPIUM NEB FS 0.5 MG/2.5 ML AMPUL.NEB NEB SCH ×4 (01:30→19:44)
[2016-11-25] MEDS: LEVOTHYROXINE SODIUM 150 MCG TABLET GT SCH (05:34)
[2016-11-25] MEDS: RENAL NOVASOURCE 1,000 ML BOTTLE GT PRN (05:34)
[2016-11-25] MEDS: BACLOFEN (10 MG) 10 MG TABLET GT SCH ×3 (05:34→20:38)
[2016-11-25] MEDS: OMEPRAZOLE 20 MG GT SCH (05:34)
[2016-11-25 07:40] VITALS: BP 110/69
[2016-11-25] MEDS: AMIODARONE HCL 200 MG TABLET GT SCH (09:00)
[2016-11-25] MEDS: HEPARIN SODIUM, PORCINE 5000 UNITS/1 ML VIAL SQ SCH ×2 (09:00→20:38)
[2016-11-25] MEDS: ZINC OXIDE 30 GM TUBE TP SCH ×3 (09:00→20:38)
[2016-11-25] MEDS: POTASSIUM CHLORIDE 20 MEQ/15 ML ML GT SCH (09:00)
[2016-11-25] MEDS: MULTI-DELYN GT SCH (09:00)
[2016-11-25] MEDS: HYDROGEN PEROXIDE 480 ML BOTTLE TP SCH ×2 (09:00→20:38)
[2016-11-25] MEDS: POLYETHYLENE GLYCOL 3350 17 GM POWD.PACK GT SCH (09:00)
[2016-11-25] MEDS: POLYVINYL ALCOHOL 15 ML BOTTLE EACHEYE SCH ×4 (09:00→20:38)
[2016-11-25] MEDS: ASCORBIC ACID 500 MG TABLET GT SCH (09:00)
[2016-11-25] MEDS: ACIDOPHILUS/BULGARICUS 1 EACH TAB.CHEW GT SCH (09:00)
--- NOTE | 2016-11-25 13:59 | NUR ---
RT Patient received trach on cool aerosol. tx. given and tolerated very well. No adverse reactions.Trach midline and breath sounds equal.Suctioned small amount yellow thick secretions.
--- NOTE | 2016-11-25 18:42 | NUR ---
Treatment continued in the buttocks excoriation with zinc oxide cover with Mepilex Q shift. Notified Mrs. Bradley of the renewed order. Inform her that patient's buttocks area is not open and therefore zinc oxide is an appropriate treatment to serve as skin barrier. She appreciated the call.
[2016-11-25 19:48] VITALS: BP 107/63
[2016-11-25] MEDS: FINASTERIDE (5 MG) 5 MG TABLET GT SCH (20:37)
[2016-11-26] MEDS: IPRATROPIUM NEB FS 0.5 MG/2.5 ML AMPUL.NEB NEB SCH ×4 (01:38→19:36)
[2016-11-26] MEDS: ALBUTEROL FS 2.5 MG/3 ML VIAL.NEB NEB SCH ×4 (01:38→19:36)
--- NOTE | 2016-11-26 04:32 | NUR ---
CARD SORTER NOTE NOTED PT WITH ONLY 200 CC URINE OUTPUT AT THIS TIME, YELLOW IN COLOR WITH SEDIMENTS, ATTEMPTED TO FLUSH TREVINO CATH WITH STERILE WATER, UNSUCCESSFUL, PRN INDWELLING TREVINO CATH 16 FR WITH 10 CC BAL CHANGED D/T CLOGGED , NO DIFFICULTY AND NO BLEEDING NOTED, NO SIGNS AND SYMPTOMS OF DISCOMFORT, CLEAR YELLOW URINE FLOWING AT THIS TIME. WILL CONT TO MONITOR.
[2016-11-26] MEDS: RENAL NOVASOURCE 1,000 ML BOTTLE GT PRN (05:32)
[2016-11-26] MEDS: GLYCOPYRROLATE 1 MG TABLET GT SCH ×4 (05:32→23:57)
[2016-11-26] MEDS: OMEPRAZOLE 20 MG GT SCH (05:32)
[2016-11-26] MEDS: BACLOFEN (10 MG) 10 MG TABLET GT SCH ×3 (05:32→21:32)
[2016-11-26] MEDS: LEVOTHYROXINE SODIUM 150 MCG TABLET GT SCH (05:32)
[2016-11-26 08:24] VITALS: BP 128/80
[2016-11-26] MEDS: HEPARIN SODIUM, PORCINE 5000 UNITS/1 ML VIAL SQ SCH ×2 (09:00→21:32)
[2016-11-26] MEDS: HYDROGEN PEROXIDE 480 ML BOTTLE TP SCH ×2 (09:00→21:32)
[2016-11-26] MEDS: ASCORBIC ACID 500 MG TABLET GT SCH (09:00)
[2016-11-26] MEDS: ACIDOPHILUS/BULGARICUS 1 EACH TAB.CHEW GT SCH (09:00)
[2016-11-26] MEDS: AMIODARONE HCL 200 MG TABLET GT SCH (09:00)
[2016-11-26] MEDS: POLYVINYL ALCOHOL 15 ML BOTTLE EACHEYE SCH ×4 (09:00→21:32)
[2016-11-26] MEDS: ERGOCALCIFEROL (VITAMIN D2) 8,000 UNIT/ML GT SCH (09:00)
[2016-11-26] MEDS: MULTI-DELYN GT SCH (09:00)
[2016-11-26] MEDS: ZINC OXIDE 30 GM TUBE TP SCH ×4 (09:00→21:32)
[2016-11-26] MEDS: POTASSIUM CHLORIDE 20 MEQ/15 ML ML GT SCH (09:00)
[2016-11-26] MEDS: POLYETHYLENE GLYCOL 3350 17 GM POWD.PACK GT SCH (09:00)
[2016-11-26 19:45] VITALS: BP 128/64
[2016-11-26] MEDS: FINASTERIDE (5 MG) 5 MG TABLET GT SCH (20:00)
[2016-11-27] MEDS: ALBUTEROL FS 2.5 MG/3 ML VIAL.NEB NEB SCH ×4 (01:19→21:20)
[2016-11-27] MEDS: IPRATROPIUM NEB FS 0.5 MG/2.5 ML AMPUL.NEB NEB SCH ×4 (01:19→21:20)
[2016-11-27] MEDS: LEVOTHYROXINE SODIUM 150 MCG TABLET GT SCH (05:49)
[2016-11-27] MEDS: GLYCOPYRROLATE 1 MG TABLET GT SCH ×4 (05:49→23:12)
[2016-11-27] MEDS: OMEPRAZOLE 20 MG GT SCH (05:49)
[2016-11-27] MEDS: BACLOFEN (10 MG) 10 MG TABLET GT SCH ×3 (05:49→20:28)
[2016-11-27 07:45] VITALS: BP 103/68
[2016-11-27] MEDS: POLYVINYL ALCOHOL 15 ML BOTTLE EACHEYE SCH ×4 (09:00→20:28)
[2016-11-27] MEDS: ASCORBIC ACID 500 MG TABLET GT SCH (09:00)
[2016-11-27] MEDS: HYDROGEN PEROXIDE 480 ML BOTTLE TP SCH ×2 (09:00→20:28)
[2016-11-27] MEDS: AMIODARONE HCL 200 MG TABLET GT SCH (09:00)
[2016-11-27] MEDS: MULTI-DELYN GT SCH (09:00)
[2016-11-27] MEDS: POLYETHYLENE GLYCOL 3350 17 GM POWD.PACK GT SCH (09:00)
[2016-11-27] MEDS: ZINC OXIDE 30 GM TUBE TP SCH ×4 (09:00→20:28)
[2016-11-27] MEDS: HEPARIN SODIUM, PORCINE 5000 UNITS/1 ML VIAL SQ SCH ×2 (09:00→20:28)
[2016-11-27] MEDS: POTASSIUM CHLORIDE 20 MEQ/15 ML ML GT SCH (09:00)
[2016-11-27] MEDS: ACIDOPHILUS/BULGARICUS 1 EACH TAB.CHEW GT SCH (09:00)
--- NOTE | 2016-11-27 09:07 | NUR ---
Was seen by Dr. Daniel THAO for annual checkup. Stated tooth #3 is very loose. Stated nursing staff can keep an eye on it and if necessary, can be extracted. Charge nurse informed.
[2016-11-27 19:58] VITALS: BP 124/63
[2016-11-27] MEDS: FINASTERIDE (5 MG) 5 MG TABLET GT SCH (20:27)
[2016-11-27] MEDS: RENAL NOVASOURCE 1,000 ML BOTTLE GT PRN (20:29)
[2016-11-28] MEDS: IPRATROPIUM NEB FS 0.5 MG/2.5 ML AMPUL.NEB NEB SCH ×4 (02:32→19:30)
[2016-11-28] MEDS: ALBUTEROL FS 2.5 MG/3 ML VIAL.NEB NEB SCH ×4 (02:32→19:30)
[2016-11-28] MEDS: BACLOFEN (10 MG) 10 MG TABLET GT SCH ×3 (05:13→20:41)
[2016-11-28] MEDS: LEVOTHYROXINE SODIUM 150 MCG TABLET GT SCH (05:13)
[2016-11-28] MEDS: OMEPRAZOLE 20 MG GT SCH (05:13)
[2016-11-28] MEDS: GLYCOPYRROLATE 1 MG TABLET GT SCH ×4 (05:13→23:19)
[2016-11-28 07:45] VITALS: BP 107/61
[2016-11-28] MEDS: AMIODARONE HCL 200 MG TABLET GT SCH (09:00)
[2016-11-28] MEDS: ASCORBIC ACID 500 MG TABLET GT SCH (09:00)
[2016-11-28] MEDS: HEPARIN SODIUM, PORCINE 5000 UNITS/1 ML VIAL SQ SCH ×2 (09:00→20:42)
[2016-11-28] MEDS: POTASSIUM CHLORIDE 20 MEQ/15 ML ML GT SCH (09:00)
[2016-11-28] MEDS: POLYVINYL ALCOHOL 15 ML BOTTLE EACHEYE SCH ×4 (09:00→20:41)
[2016-11-28] MEDS: ZINC OXIDE 30 GM TUBE TP SCH ×4 (09:00→20:42)
[2016-11-28] MEDS: POLYETHYLENE GLYCOL 3350 17 GM POWD.PACK GT SCH (09:00)
[2016-11-28] MEDS: ACIDOPHILUS/BULGARICUS 1 EACH TAB.CHEW GT SCH (09:00)
[2016-11-28] MEDS: MULTI-DELYN GT SCH (09:00)
[2016-11-28] MEDS: HYDROGEN PEROXIDE 480 ML BOTTLE TP SCH ×2 (09:00→20:42)
[2016-11-28 20:11] VITALS: BP 120/74
[2016-11-28] MEDS: FINASTERIDE (5 MG) 5 MG TABLET GT SCH (20:41)
[2016-11-28] MEDS: RENAL NOVASOURCE 1,000 ML BOTTLE GT PRN (22:27)
[2016-11-29] MEDS: ALBUTEROL FS 2.5 MG/3 ML VIAL.NEB NEB SCH ×4 (01:30→20:22)
[2016-11-29] MEDS: IPRATROPIUM NEB FS 0.5 MG/2.5 ML AMPUL.NEB NEB SCH ×4 (01:30→20:22)
[2016-11-29] MEDS: BACLOFEN (10 MG) 10 MG TABLET GT SCH ×3 (05:27→20:19)
[2016-11-29] MEDS: GLYCOPYRROLATE 1 MG TABLET GT SCH ×4 (05:27→23:18)
[2016-11-29] MEDS: OMEPRAZOLE 20 MG GT SCH (05:27)
[2016-11-29] MEDS: LEVOTHYROXINE SODIUM 150 MCG TABLET GT SCH (05:27)
[2016-11-29 07:39] VITALS: BP 103/63
[2016-11-29] MEDS: POLYVINYL ALCOHOL 15 ML BOTTLE EACHEYE SCH ×4 (08:45→20:19)
[2016-11-29] MEDS: ACIDOPHILUS/BULGARICUS 1 EACH TAB.CHEW GT SCH (08:47)
[2016-11-29] MEDS: AMIODARONE HCL 200 MG TABLET GT SCH (08:47)
[2016-11-29] MEDS: MULTI-DELYN GT SCH (08:47)
[2016-11-29] MEDS: POLYETHYLENE GLYCOL 3350 17 GM POWD.PACK GT SCH (08:47)
[2016-11-29] MEDS: POTASSIUM CHLORIDE 20 MEQ/15 ML ML GT SCH (08:49)
[2016-11-29] MEDS: ASCORBIC ACID 500 MG TABLET GT SCH (08:49)
[2016-11-29] MEDS: HYDROGEN PEROXIDE 480 ML BOTTLE TP SCH ×2 (08:50→20:19)
[2016-11-29] MEDS: ZINC OXIDE 30 GM TUBE TP SCH ×4 (08:50→20:19)
[2016-11-29] MEDS: HEPARIN SODIUM, PORCINE 5000 UNITS/1 ML VIAL SQ SCH ×2 (08:50→20:19)
[2016-11-29 19:59] VITALS: BP 118/62
[2016-11-29] MEDS: FINASTERIDE (5 MG) 5 MG TABLET GT SCH (20:19)
[2016-11-30] MEDS: ALBUTEROL FS 2.5 MG/3 ML VIAL.NEB NEB SCH ×4 (02:20→19:59)
[2016-11-30] MEDS: IPRATROPIUM NEB FS 0.5 MG/2.5 ML AMPUL.NEB NEB SCH ×4 (02:20→19:59)
[2016-11-30] MEDS: BACLOFEN (10 MG) 10 MG TABLET GT SCH ×3 (05:55→20:48)
[2016-11-30] MEDS: OMEPRAZOLE 20 MG GT SCH (05:55)
[2016-11-30] MEDS: GLYCOPYRROLATE 1 MG TABLET GT SCH ×3 (05:55→17:54)
[2016-11-30] MEDS: LEVOTHYROXINE SODIUM 150 MCG TABLET GT SCH (05:55)
[2016-11-30 08:15] VITALS: BP 122/72
[2016-11-30 08:16] VITALS: BP 116/81
[2016-11-30] MEDS: ZINC OXIDE 30 GM TUBE TP SCH ×4 (09:00→20:49)
[2016-11-30] MEDS: MULTI-DELYN GT SCH (09:00)
[2016-11-30] MEDS: HEPARIN SODIUM, PORCINE 5000 UNITS/1 ML VIAL SQ SCH ×2 (09:00→20:48)
[2016-11-30] MEDS: POLYETHYLENE GLYCOL 3350 17 GM POWD.PACK GT SCH (09:00)
[2016-11-30] MEDS: HYDROGEN PEROXIDE 480 ML BOTTLE TP SCH ×2 (09:00→20:48)
[2016-11-30] MEDS: POLYVINYL ALCOHOL 15 ML BOTTLE EACHEYE SCH ×4 (09:00→20:48)
[2016-11-30] MEDS: POTASSIUM CHLORIDE 20 MEQ/15 ML ML GT SCH (09:00)
[2016-11-30] MEDS: ACIDOPHILUS/BULGARICUS 1 EACH TAB.CHEW GT SCH (09:00)
[2016-11-30] MEDS: ASCORBIC ACID 500 MG TABLET GT SCH (09:00)
[2016-11-30] MEDS: AMIODARONE HCL 200 MG TABLET GT SCH (09:00)
[2016-11-30] MEDS: RENAL NOVASOURCE 1,000 ML BOTTLE GT PRN (11:16)
--- NOTE | 2016-11-30 14:42 | NUR ---
Seen by Dr. David today. Pt's at bedside and she told Dr. David that she wants to know if pt can be seen by a neurologist and oncologist. Dr. David explained to her that there has been no change in the neurologic status of the pt, but he ordered an oncology consult with Dr. Hinojosa. Notified Dr. Hinojosa.
[2016-11-30 20:29] VITALS: BP 125/71
[2016-11-30] MEDS: FINASTERIDE (5 MG) 5 MG TABLET GT SCH (20:48)
[2016-12-01] MEDS: GLYCOPYRROLATE 1 MG TABLET GT SCH ×4 (00:44→17:45)
[2016-12-01] MEDS: IPRATROPIUM NEB FS 0.5 MG/2.5 ML AMPUL.NEB NEB SCH ×4 (02:19→20:00)
[2016-12-01] MEDS: ALBUTEROL FS 2.5 MG/3 ML VIAL.NEB NEB SCH ×4 (02:19→20:00)
[2016-12-01] MEDS: BACLOFEN (10 MG) 10 MG TABLET GT SCH ×3 (05:49→21:27)
[2016-12-01] MEDS: OMEPRAZOLE 20 MG GT SCH (05:49)
[2016-12-01] MEDS: LEVOTHYROXINE SODIUM 150 MCG TABLET GT SCH (05:49)
--- NOTE | 2016-12-01 07:00 | NUR ---
Pt gastric tube broken tubing,removed and replaced with same GT Bard F# 20x 6cc balloon,pt tolerated procedure well. No bleeding noted.Obtained order for KUB for GT placement. notified with new orders.
[2016-12-01 08:05] VITALS: BP 115/71
[2016-12-01] MEDS ORDERED: DIATR MEGLU/DIATRIZOATE SODIUM 30 ML BOTTLE (GASTROGRAPHIN) PO ONE (08:32)
[2016-12-01] MEDS: HYDROGEN PEROXIDE 480 ML BOTTLE TP SCH ×2 (09:00→21:27)
[2016-12-01] MEDS: MULTI-DELYN GT SCH (09:00)
[2016-12-01] MEDS: POTASSIUM CHLORIDE 20 MEQ/15 ML ML GT SCH (09:00)
[2016-12-01] MEDS: POLYVINYL ALCOHOL 15 ML BOTTLE EACHEYE SCH ×4 (09:00→21:27)
[2016-12-01] MEDS: ZINC OXIDE 30 GM TUBE TP SCH ×4 (09:00→21:27)
[2016-12-01] MEDS: AMIODARONE HCL 200 MG TABLET GT SCH (09:00)
[2016-12-01] MEDS: POLYETHYLENE GLYCOL 3350 17 GM POWD.PACK GT SCH (09:00)
[2016-12-01] MEDS: ASCORBIC ACID 500 MG TABLET GT SCH (09:00)
[2016-12-01] MEDS: ACIDOPHILUS/BULGARICUS 1 EACH TAB.CHEW GT SCH (09:00)
[2016-12-01] MEDS: HEPARIN SODIUM, PORCINE 5000 UNITS/1 ML VIAL SQ SCH ×2 (09:00→21:27)
--- NOTE | 2016-12-01 09:57 | NUR ---
Dr. Soares seen and examined resident with new order for CBC and CMP today. orders noted and carried out. Abdominal KUB result still pending, followed up with radiology department.
[2016-12-01 11:18] LABS: ALBUMIN 3.1 g/dL (3.4-5.0); BILIRUBIN,TOTAL 0.5 mg/dL (0.2-1.0); CALCIUM, SERUM 9.6 mg/dL (8.5-10.1); CREATININE 1.7 mg/dL (0.6-1.3); POTASSIUM 4.9 mmol/L (3.5-5.1); TOTAL PROTEIN, SERUM 7.8 g/dL (6.4-8.2)
[2016-12-01 11:47] LABS: BASOPHILS % (AUTO) 0.1 % (0.0-2.0); EOSINOPHILS # (AUTO) 0.2 /CMM (0.0-0.7); EOSINOPHILS % (AUTO) 2.2 % (0.0-6.0); HEMATOCRIT 37 % (39-51); HEMOGLOBIN 11.5 g/dL (13.5-17.5); LYMPHOCYTES % (AUTO) 10.2 % (20.0-44.0); MEAN CORPUSCULAR HEMOGLOBIN 24 PG (26.0-33.0); MEAN CORPUSCULAR HGB CONC 31 g/dl (31.0-36.0); MEAN CORPUSCULAR VOLUME 76 fL (80-96); MONOCYTES % (AUTO) 10.5 % (2.0-12.0); NEUTROPHILS # (AUTO) 7.6 /CMM (1.8-8.9); PLATELET COUNT (AUTO) 420 /CMM (150-450); RDW COEFFICIENT OF VARIATION 19.9 (11.5-15.0); RED BLOOD CELL COUNT(AUTO) 4.87 MIL/uL (4.5-6.0); WHITE BLOOD COUNT (AUTO) 9.9 K/uL (4.3-11.0)
[2016-12-01 19:50] VITALS: BP 107/69
[2016-12-01] MEDS: FINASTERIDE (5 MG) 5 MG TABLET GT SCH (20:00)
--- NOTE | 2016-12-01 21:00 | NUR ---
PT GT SITE WITH SLIGHT REDNESS,NO BLEEDING OR DRAINAGE ,OBTAINED ORDER FOR TRIPLE ANTIBIOTIC Q SHIFT X 5 DAYS. AWARE.PT TEMP 99.2 ,BED BATH GIVEN AND TEMP RE CHECKED 98.5 WILL CONTINUE TO MONITOR.
[2016-12-02] MEDS: GLYCOPYRROLATE 1 MG TABLET GT SCH ×5 (00:10→23:50)
[2016-12-02] MEDS: RENAL NOVASOURCE 1,000 ML BOTTLE GT PRN (00:21)
[2016-12-02] MEDS: IPRATROPIUM NEB FS 0.5 MG/2.5 ML AMPUL.NEB NEB SCH ×4 (00:43→19:14)
[2016-12-02] MEDS: ALBUTEROL FS 2.5 MG/3 ML VIAL.NEB NEB SCH ×4 (00:43→19:14)
[2016-12-02] MEDS: BACLOFEN (10 MG) 10 MG TABLET GT SCH ×3 (05:00→21:00)
[2016-12-02] MEDS: LEVOTHYROXINE SODIUM 150 MCG TABLET GT SCH (06:33)
[2016-12-02] MEDS: OMEPRAZOLE 20 MG GT SCH (06:33)
[2016-12-02 07:54] VITALS: BP 105/67
[2016-12-02] MEDS: POTASSIUM CHLORIDE 20 MEQ/15 ML ML GT SCH (09:00)
[2016-12-02] MEDS: ZINC OXIDE 30 GM TUBE TP SCH ×4 (09:00→21:00)
[2016-12-02] MEDS: ASCORBIC ACID 500 MG TABLET GT SCH (09:00)
[2016-12-02] MEDS: AMIODARONE HCL 200 MG TABLET GT SCH (09:00)
[2016-12-02] MEDS: POLYVINYL ALCOHOL 15 ML BOTTLE EACHEYE SCH ×4 (09:00→21:00)
[2016-12-02] MEDS: HYDROGEN PEROXIDE 480 ML BOTTLE TP SCH ×2 (09:00→21:00)
[2016-12-02] MEDS: MULTI-DELYN GT SCH (09:00)
[2016-12-02] MEDS: POLYETHYLENE GLYCOL 3350 17 GM POWD.PACK GT SCH (09:00)
[2016-12-02] MEDS: ACIDOPHILUS/BULGARICUS 1 EACH TAB.CHEW GT SCH (09:00)
[2016-12-02] MEDS: NEOMY SULF/BACITRAC ZN/POLY 15 GM TUBE TP SCH ×2 (09:00→21:00)
[2016-12-02] MEDS: HEPARIN SODIUM, PORCINE 5000 UNITS/1 ML VIAL SQ SCH ×2 (09:00→21:00)
[2016-12-02 19:46] VITALS: BP 104/59
[2016-12-02] MEDS: FINASTERIDE (5 MG) 5 MG TABLET GT SCH (20:00)
[2016-12-03] MEDS: ALBUTEROL FS 2.5 MG/3 ML VIAL.NEB NEB SCH ×4 (02:00→19:30)
[2016-12-03] MEDS: IPRATROPIUM NEB FS 0.5 MG/2.5 ML AMPUL.NEB NEB SCH ×4 (02:00→19:30)
[2016-12-03] MEDS: BACLOFEN (10 MG) 10 MG TABLET GT SCH ×3 (05:00→21:32)
[2016-12-03] MEDS: OMEPRAZOLE 20 MG GT SCH (06:23)
[2016-12-03] MEDS: LEVOTHYROXINE SODIUM 150 MCG TABLET GT SCH (06:23)
[2016-12-03] MEDS: GLYCOPYRROLATE 1 MG TABLET GT SCH ×4 (06:23→23:36)
[2016-12-03] MEDS: RENAL NOVASOURCE 1,000 ML BOTTLE GT PRN (06:29)
[2016-12-03 07:48] VITALS: BP 107/67
[2016-12-03] MEDS: POLYVINYL ALCOHOL 15 ML BOTTLE EACHEYE SCH ×4 (08:44→21:32)
[2016-12-03] MEDS: POTASSIUM CHLORIDE 20 MEQ/15 ML ML GT SCH (08:45)
[2016-12-03] MEDS: ASCORBIC ACID 500 MG TABLET GT SCH (08:45)
[2016-12-03] MEDS: ACIDOPHILUS/BULGARICUS 1 EACH TAB.CHEW GT SCH (08:45)
[2016-12-03] MEDS: POLYETHYLENE GLYCOL 3350 17 GM POWD.PACK GT SCH (08:45)
[2016-12-03] MEDS: AMIODARONE HCL 200 MG TABLET GT SCH (08:45)
[2016-12-03] MEDS: ERGOCALCIFEROL (VITAMIN D2) 8,000 UNIT/ML GT SCH (08:45)
[2016-12-03] MEDS: MULTI-DELYN GT SCH (08:45)
[2016-12-03] MEDS: HEPARIN SODIUM, PORCINE 5000 UNITS/1 ML VIAL SQ SCH ×2 (08:59→21:33)
[2016-12-03] MEDS: HYDROGEN PEROXIDE 480 ML BOTTLE TP SCH ×2 (09:00→21:33)
[2016-12-03] MEDS: ZINC OXIDE 30 GM TUBE TP SCH ×4 (09:00→21:34)
[2016-12-03] MEDS: NEOMY SULF/BACITRAC ZN/POLY 15 GM TUBE TP SCH ×2 (09:00→21:33)
[2016-12-03 19:42] VITALS: BP 99/64
[2016-12-03] MEDS: FINASTERIDE (5 MG) 5 MG TABLET GT SCH (20:00)
[2016-12-04] MEDS: ALBUTEROL FS 2.5 MG/3 ML VIAL.NEB NEB SCH ×4 (00:46→20:03)
[2016-12-04] MEDS: IPRATROPIUM NEB FS 0.5 MG/2.5 ML AMPUL.NEB NEB SCH ×4 (00:46→20:03)
[2016-12-04] MEDS: GLYCOPYRROLATE 1 MG TABLET GT SCH ×3 (05:35→17:07)
[2016-12-04] MEDS: BACLOFEN (10 MG) 10 MG TABLET GT SCH ×3 (05:35→21:21)
[2016-12-04] MEDS: OMEPRAZOLE 20 MG GT SCH (05:35)
[2016-12-04] MEDS: LEVOTHYROXINE SODIUM 150 MCG TABLET GT SCH (05:35)
[2016-12-04 07:52] VITALS: BP 109/67
[2016-12-04] MEDS: POLYVINYL ALCOHOL 15 ML BOTTLE EACHEYE SCH ×4 (09:30→21:21)
[2016-12-04] MEDS: POLYETHYLENE GLYCOL 3350 17 GM POWD.PACK GT SCH (09:31)
[2016-12-04] MEDS: MULTI-DELYN GT SCH (09:31)
[2016-12-04] MEDS: HYDROGEN PEROXIDE 480 ML BOTTLE TP SCH ×2 (09:31→21:21)
[2016-12-04] MEDS: AMIODARONE HCL 200 MG TABLET GT SCH (09:31)
[2016-12-04] MEDS: ZINC OXIDE 30 GM TUBE TP SCH ×4 (09:31→21:21)
[2016-12-04] MEDS: NEOMY SULF/BACITRAC ZN/POLY 15 GM TUBE TP SCH ×2 (09:31→21:21)
[2016-12-04] MEDS: POTASSIUM CHLORIDE 20 MEQ/15 ML ML GT SCH (09:31)
[2016-12-04] MEDS: ACIDOPHILUS/BULGARICUS 1 EACH TAB.CHEW GT SCH (09:31)
[2016-12-04] MEDS: ASCORBIC ACID 500 MG TABLET GT SCH (09:31)
[2016-12-04] MEDS: HEPARIN SODIUM, PORCINE 5000 UNITS/1 ML VIAL SQ SCH ×2 (09:32→21:21)
[2016-12-04] MEDS: FINASTERIDE (5 MG) 5 MG TABLET GT SCH (20:00)
[2016-12-04 20:10] VITALS: BP 101/58
[2016-12-05] MEDS: IPRATROPIUM NEB FS 0.5 MG/2.5 ML AMPUL.NEB NEB SCH ×4 (00:48→19:30)
[2016-12-05] MEDS: ALBUTEROL FS 2.5 MG/3 ML VIAL.NEB NEB SCH ×4 (00:48→19:30)
[2016-12-05] MEDS: BACLOFEN (10 MG) 10 MG TABLET GT SCH ×3 (05:37→21:20)
[2016-12-05] MEDS: GLYCOPYRROLATE 1 MG TABLET GT SCH ×4 (05:37→17:36)
[2016-12-05] MEDS: LEVOTHYROXINE SODIUM 150 MCG TABLET GT SCH (05:38)
[2016-12-05] MEDS: OMEPRAZOLE 20 MG GT SCH (05:38)
[2016-12-05 07:50] VITALS: BP 97/60
[2016-12-05] MEDS: POLYVINYL ALCOHOL 15 ML BOTTLE EACHEYE SCH ×4 (09:56→21:20)
[2016-12-05] MEDS: ASCORBIC ACID 500 MG TABLET GT SCH (09:57)
[2016-12-05] MEDS: POTASSIUM CHLORIDE 20 MEQ/15 ML ML GT SCH (09:57)
[2016-12-05] MEDS: ACIDOPHILUS/BULGARICUS 1 EACH TAB.CHEW GT SCH (09:57)
[2016-12-05] MEDS: POLYETHYLENE GLYCOL 3350 17 GM POWD.PACK GT SCH (09:57)
[2016-12-05] MEDS: AMIODARONE HCL 200 MG TABLET GT SCH (09:57)
[2016-12-05] MEDS: MULTI-DELYN GT SCH (09:57)
[2016-12-05] MEDS: HEPARIN SODIUM, PORCINE 5000 UNITS/1 ML VIAL SQ SCH ×2 (09:58→21:21)
[2016-12-05] MEDS: ZINC OXIDE 30 GM TUBE TP SCH ×4 (10:30→21:21)
[2016-12-05] MEDS: NEOMY SULF/BACITRAC ZN/POLY 15 GM TUBE TP SCH ×2 (10:45→21:21)
[2016-12-05] MEDS: HYDROGEN PEROXIDE 480 ML BOTTLE TP SCH ×2 (10:45→21:21)
[2016-12-05] MEDS: RENAL NOVASOURCE 1,000 ML BOTTLE GT PRN (14:10)
[2016-12-05 19:38] VITALS: BP 132/73
[2016-12-05] MEDS: FINASTERIDE (5 MG) 5 MG TABLET GT SCH (20:00)
[2016-12-06] MEDS: GLYCOPYRROLATE 1 MG TABLET GT SCH ×4 (00:08→17:29)
[2016-12-06] MEDS: IPRATROPIUM NEB FS 0.5 MG/2.5 ML AMPUL.NEB NEB SCH ×5 (01:38→19:57)
[2016-12-06] MEDS: ALBUTEROL FS 2.5 MG/3 ML VIAL.NEB NEB SCH ×5 (01:38→19:57)
[2016-12-06] MEDS: OMEPRAZOLE 20 MG GT SCH (05:24)
[2016-12-06] MEDS: LEVOTHYROXINE SODIUM 150 MCG TABLET GT SCH (05:24)
[2016-12-06] MEDS: BACLOFEN (10 MG) 10 MG TABLET GT SCH ×3 (05:24→21:16)
[2016-12-06 07:55] VITALS: BP 109/61
[2016-12-06] MEDS: POLYVINYL ALCOHOL 15 ML BOTTLE EACHEYE SCH ×4 (09:00→21:16)
[2016-12-06] MEDS: ACIDOPHILUS/BULGARICUS 1 EACH TAB.CHEW GT SCH (09:31)
[2016-12-06] MEDS: MULTI-DELYN GT SCH (09:31)
[2016-12-06] MEDS: AMIODARONE HCL 200 MG TABLET GT SCH (09:31)
[2016-12-06] MEDS: POLYETHYLENE GLYCOL 3350 17 GM POWD.PACK GT SCH (09:31)
[2016-12-06] MEDS: POTASSIUM CHLORIDE 20 MEQ/15 ML ML GT SCH (09:33)
[2016-12-06] MEDS: ASCORBIC ACID 500 MG TABLET GT SCH (09:33)
[2016-12-06] MEDS: HEPARIN SODIUM, PORCINE 5000 UNITS/1 ML VIAL SQ SCH ×2 (09:33→21:17)
[2016-12-06] MEDS: ZINC OXIDE 30 GM TUBE TP SCH ×4 (09:34→21:17)
[2016-12-06] MEDS: NEOMY SULF/BACITRAC ZN/POLY 15 GM TUBE TP SCH ×2 (09:34→21:17)
[2016-12-06] MEDS: HYDROGEN PEROXIDE 480 ML BOTTLE TP SCH ×2 (09:34→21:17)
[2016-12-06] MEDS: RENAL NOVASOURCE 1,000 ML BOTTLE GT PRN (19:16)
[2016-12-06] MEDS: FINASTERIDE (5 MG) 5 MG TABLET GT SCH (20:00)
[2016-12-06 20:05] VITALS: BP 133/71
[2016-12-07] MEDS: GLYCOPYRROLATE 1 MG TABLET GT SCH ×4 (00:24→17:13)
[2016-12-07] MEDS: IPRATROPIUM NEB FS 0.5 MG/2.5 ML AMPUL.NEB NEB SCH ×4 (02:01→20:25)
[2016-12-07] MEDS: ALBUTEROL FS 2.5 MG/3 ML VIAL.NEB NEB SCH ×4 (02:01→20:25)
[2016-12-07] MEDS: BACLOFEN (10 MG) 10 MG TABLET GT SCH ×3 (05:00→21:57)
[2016-12-07] MEDS: LEVOTHYROXINE SODIUM 150 MCG TABLET GT SCH (06:08)
[2016-12-07] MEDS: OMEPRAZOLE 20 MG GT SCH (06:08)
[2016-12-07 07:41] VITALS: BP 113/83
[2016-12-07] MEDS: MULTI-DELYN GT SCH (09:25)
[2016-12-07] MEDS: ASCORBIC ACID 500 MG TABLET GT SCH (09:25)
[2016-12-07] MEDS: POLYVINYL ALCOHOL 15 ML BOTTLE EACHEYE SCH ×4 (09:25→21:57)
[2016-12-07] MEDS: ACIDOPHILUS/BULGARICUS 1 EACH TAB.CHEW GT SCH (09:25)
[2016-12-07] MEDS: AMIODARONE HCL 200 MG TABLET GT SCH (09:25)
[2016-12-07] MEDS: POTASSIUM CHLORIDE 20 MEQ/15 ML ML GT SCH (09:25)
[2016-12-07] MEDS: POLYETHYLENE GLYCOL 3350 17 GM POWD.PACK GT SCH (09:25)
[2016-12-07] MEDS: ZINC OXIDE 30 GM TUBE TP SCH ×4 (09:26→21:57)
[2016-12-07] MEDS: HEPARIN SODIUM, PORCINE 5000 UNITS/1 ML VIAL SQ SCH ×2 (09:26→21:57)
[2016-12-07] MEDS: HYDROGEN PEROXIDE 480 ML BOTTLE TP SCH ×2 (09:26→21:57)
[2016-12-07] MEDS: FINASTERIDE (5 MG) 5 MG TABLET GT SCH (20:00)
[2016-12-07 20:19] VITALS: BP 116/67
[2016-12-08] MEDS: GLYCOPYRROLATE 1 MG TABLET GT SCH ×4 (00:15→17:21)
[2016-12-08] MEDS: IPRATROPIUM NEB FS 0.5 MG/2.5 ML AMPUL.NEB NEB SCH ×4 (00:48→19:36)
[2016-12-08] MEDS: ALBUTEROL FS 2.5 MG/3 ML VIAL.NEB NEB SCH ×4 (00:48→19:36)
[2016-12-08] MEDS: LEVOTHYROXINE SODIUM 150 MCG TABLET GT SCH (05:50)
[2016-12-08] MEDS: OMEPRAZOLE 20 MG GT SCH (05:50)
[2016-12-08] MEDS: BACLOFEN (10 MG) 10 MG TABLET GT SCH ×3 (05:50→21:00)
[2016-12-08] MEDS: RENAL NOVASOURCE 1,000 ML BOTTLE GT PRN (06:49)
[2016-12-08 07:38] VITALS: BP 98/64
[2016-12-08] MEDS: ZINC OXIDE 30 GM TUBE TP SCH ×4 (09:00→21:00)
[2016-12-08] MEDS: HYDROGEN PEROXIDE 480 ML BOTTLE TP SCH ×2 (09:00→21:00)
[2016-12-08] MEDS: HEPARIN SODIUM, PORCINE 5000 UNITS/1 ML VIAL SQ SCH ×2 (09:00→21:00)
[2016-12-08] MEDS: POTASSIUM CHLORIDE 20 MEQ/15 ML ML GT SCH (09:59)
[2016-12-08] MEDS: AMIODARONE HCL 200 MG TABLET GT SCH (09:59)
[2016-12-08] MEDS: POLYETHYLENE GLYCOL 3350 17 GM POWD.PACK GT SCH (09:59)
[2016-12-08] MEDS: POLYVINYL ALCOHOL 15 ML BOTTLE EACHEYE SCH ×4 (09:59→21:00)
[2016-12-08] MEDS: ACIDOPHILUS/BULGARICUS 1 EACH TAB.CHEW GT SCH (09:59)
[2016-12-08] MEDS: MULTI-DELYN GT SCH (09:59)
[2016-12-08] MEDS: ASCORBIC ACID 500 MG TABLET GT SCH (09:59)
[2016-12-08 19:57] VITALS: BP 116/63
[2016-12-08] MEDS: FINASTERIDE (5 MG) 5 MG TABLET GT SCH (20:00)
[2016-12-09] MEDS: GLYCOPYRROLATE 1 MG TABLET GT SCH ×5 (00:05→23:44)
[2016-12-09] MEDS: IPRATROPIUM NEB FS 0.5 MG/2.5 ML AMPUL.NEB NEB SCH ×4 (01:56→20:14)
[2016-12-09] MEDS: ALBUTEROL FS 2.5 MG/3 ML VIAL.NEB NEB SCH ×4 (01:56→20:14)
[2016-12-09] MEDS: BACLOFEN (10 MG) 10 MG TABLET GT SCH ×3 (04:58→21:46)
[2016-12-09] MEDS: OMEPRAZOLE 20 MG GT SCH (06:05)
[2016-12-09] MEDS: LEVOTHYROXINE SODIUM 150 MCG TABLET GT SCH (06:06)
[2016-12-09] MEDS: ZINC OXIDE 30 GM TUBE TP SCH ×4 (09:00→21:47)
[2016-12-09] MEDS: HEPARIN SODIUM, PORCINE 5000 UNITS/1 ML VIAL SQ SCH ×2 (09:00→21:47)
[2016-12-09] MEDS: POLYVINYL ALCOHOL 15 ML BOTTLE EACHEYE SCH ×4 (09:00→21:46)
[2016-12-09] MEDS: HYDROGEN PEROXIDE 480 ML BOTTLE TP SCH ×2 (09:00→21:47)
[2016-12-09] MEDS: POTASSIUM CHLORIDE 20 MEQ/15 ML ML GT SCH (09:00)
[2016-12-09] MEDS: MULTI-DELYN GT SCH (09:00)
[2016-12-09] MEDS: ACIDOPHILUS/BULGARICUS 1 EACH TAB.CHEW GT SCH (09:00)
[2016-12-09] MEDS: POLYETHYLENE GLYCOL 3350 17 GM POWD.PACK GT SCH (09:00)
[2016-12-09] MEDS: AMIODARONE HCL 200 MG TABLET GT SCH (09:00)
[2016-12-09] MEDS: ASCORBIC ACID 500 MG TABLET GT SCH (09:00)
[2016-12-09] MEDS: FINASTERIDE (5 MG) 5 MG TABLET GT SCH (20:00)
[2016-12-09 20:04] VITALS: BP 101/53
[2016-12-10] MEDS: IPRATROPIUM NEB FS 0.5 MG/2.5 ML AMPUL.NEB NEB SCH ×4 (02:06→19:33)
[2016-12-10] MEDS: ALBUTEROL FS 2.5 MG/3 ML VIAL.NEB NEB SCH ×4 (02:06→19:34)
[2016-12-10] MEDS: BACLOFEN (10 MG) 10 MG TABLET GT SCH ×3 (05:00→21:27)
[2016-12-10] MEDS: GLYCOPYRROLATE 1 MG TABLET GT SCH ×4 (06:03→23:59)
[2016-12-10] MEDS: OMEPRAZOLE 20 MG GT SCH (06:03)
[2016-12-10] MEDS: LEVOTHYROXINE SODIUM 150 MCG TABLET GT SCH (06:03)
[2016-12-10 08:14] VITALS: BP 109/36
[2016-12-10] MEDS: POLYVINYL ALCOHOL 15 ML BOTTLE EACHEYE SCH ×4 (08:48→21:27)
[2016-12-10] MEDS: AMIODARONE HCL 200 MG TABLET GT SCH (08:48)
[2016-12-10] MEDS: POTASSIUM CHLORIDE 20 MEQ/15 ML ML GT SCH (08:49)
[2016-12-10] MEDS: MULTI-DELYN GT SCH (08:49)
[2016-12-10] MEDS: ERGOCALCIFEROL (VITAMIN D2) 8,000 UNIT/ML GT SCH (08:49)
[2016-12-10] MEDS: ACIDOPHILUS/BULGARICUS 1 EACH TAB.CHEW GT SCH (08:49)
[2016-12-10] MEDS: ASCORBIC ACID 500 MG TABLET GT SCH (08:49)
[2016-12-10] MEDS: POLYETHYLENE GLYCOL 3350 17 GM POWD.PACK GT SCH (08:49)
[2016-12-10] MEDS: ZINC OXIDE 30 GM TUBE TP SCH ×4 (09:00→21:28)
[2016-12-10] MEDS: HYDROGEN PEROXIDE 480 ML BOTTLE TP SCH ×2 (09:00→21:28)
[2016-12-10] MEDS: HEPARIN SODIUM, PORCINE 5000 UNITS/1 ML VIAL SQ SCH ×2 (09:31→21:28)
[2016-12-10] MEDS: FINASTERIDE (5 MG) 5 MG TABLET GT SCH (20:00)
[2016-12-10 20:03] VITALS: BP 92/56
[2016-12-11] MEDS: IPRATROPIUM NEB FS 0.5 MG/2.5 ML AMPUL.NEB NEB SCH ×4 (01:00→20:39)
[2016-12-11] MEDS: ALBUTEROL FS 2.5 MG/3 ML VIAL.NEB NEB SCH ×4 (01:00→20:39)
[2016-12-11] MEDS: BACLOFEN (10 MG) 10 MG TABLET GT SCH ×3 (05:20→21:10)
[2016-12-11] MEDS: GLYCOPYRROLATE 1 MG TABLET GT SCH ×4 (05:20→23:44)
[2016-12-11] MEDS: LEVOTHYROXINE SODIUM 150 MCG TABLET GT SCH (05:21)
[2016-12-11] MEDS: OMEPRAZOLE 20 MG GT SCH (05:21)
[2016-12-11 08:00] VITALS: BP 108/61
[2016-12-11] MEDS: AMIODARONE HCL 200 MG TABLET GT SCH (08:51)
[2016-12-11] MEDS: POLYVINYL ALCOHOL 15 ML BOTTLE EACHEYE SCH ×4 (08:51→21:10)
[2016-12-11] MEDS: POLYETHYLENE GLYCOL 3350 17 GM POWD.PACK GT SCH (08:52)
[2016-12-11] MEDS: HEPARIN SODIUM, PORCINE 5000 UNITS/1 ML VIAL SQ SCH ×2 (08:52→21:11)
[2016-12-11] MEDS: POTASSIUM CHLORIDE 20 MEQ/15 ML ML GT SCH (08:52)
[2016-12-11] MEDS: MULTI-DELYN GT SCH (08:52)
[2016-12-11] MEDS: ACIDOPHILUS/BULGARICUS 1 EACH TAB.CHEW GT SCH (08:52)
[2016-12-11] MEDS: ASCORBIC ACID 500 MG TABLET GT SCH (08:52)
--- NOTE | 2016-12-11 09:54 | NUR ---
Harley Martinez (probate investigator operator) from [facility] came to subacute unit requesting information. He provided the geriatric social worker with document giving him access to medical records. SW provided information pertaining to medications, diagnosis, and primary physician. Mr. Martinez also spoke to charge nurse regarding nursing related questions. Informed Mr. Martinez that visits on a daily basis.
[2016-12-11] MEDS: HYDROGEN PEROXIDE 480 ML BOTTLE TP SCH ×2 (10:00→21:11)
[2016-12-11] MEDS: ZINC OXIDE 30 GM TUBE TP SCH ×4 (10:00→21:11)
--- NOTE | 2016-12-11 13:50 | NUR ---
TRACH CHANGE AND TRACH CARE DONE WITH NO PROBLEMS.
[2016-12-11 19:47] VITALS: BP 126/69
[2016-12-11] MEDS: FINASTERIDE (5 MG) 5 MG TABLET GT SCH (20:00)
[2016-12-12] MEDS: IPRATROPIUM NEB FS 0.5 MG/2.5 ML AMPUL.NEB NEB SCH ×4 (01:00→19:30)
[2016-12-12] MEDS: ALBUTEROL FS 2.5 MG/3 ML VIAL.NEB NEB SCH ×4 (01:00→19:30)
[2016-12-12] MEDS: GLYCOPYRROLATE 1 MG TABLET GT SCH ×4 (05:32→23:45)
[2016-12-12] MEDS: OMEPRAZOLE 20 MG GT SCH (05:32)
[2016-12-12] MEDS: LEVOTHYROXINE SODIUM 150 MCG TABLET GT SCH (05:32)
[2016-12-12] MEDS: BACLOFEN (10 MG) 10 MG TABLET GT SCH ×3 (05:32→21:06)
[2016-12-12 08:00] VITALS: BP_SYST 101; BP_SYST 136; BP_DIAS 62; BP_DIAS 92
--- NOTE | 2016-12-12 09:00 | NUR ---
Seen and examined by Dr David with no new order
[2016-12-12] MEDS: POLYVINYL ALCOHOL 15 ML BOTTLE EACHEYE SCH ×4 (09:37→21:05)
[2016-12-12] MEDS: POLYETHYLENE GLYCOL 3350 17 GM POWD.PACK GT SCH (09:38)
[2016-12-12] MEDS: MULTI-DELYN GT SCH (09:38)
[2016-12-12] MEDS: ACIDOPHILUS/BULGARICUS 1 EACH TAB.CHEW GT SCH (09:38)
[2016-12-12] MEDS: POTASSIUM CHLORIDE 20 MEQ/15 ML ML GT SCH (09:38)
[2016-12-12] MEDS: ASCORBIC ACID 500 MG TABLET GT SCH (09:38)
[2016-12-12] MEDS: AMIODARONE HCL 200 MG TABLET GT SCH (09:38)
[2016-12-12] MEDS: HEPARIN SODIUM, PORCINE 5000 UNITS/1 ML VIAL SQ SCH ×2 (09:39→21:06)
[2016-12-12] MEDS: ZINC OXIDE 30 GM TUBE TP SCH ×4 (10:00→21:06)
[2016-12-12] MEDS: HYDROGEN PEROXIDE 480 ML BOTTLE TP SCH ×2 (10:00→21:06)
[2016-12-12 19:53] VITALS: BP 101/63
[2016-12-12] MEDS: FINASTERIDE (5 MG) 5 MG TABLET GT SCH (20:00)
[2016-12-13] MEDS: ALBUTEROL FS 2.5 MG/3 ML VIAL.NEB NEB SCH ×4 (01:30→19:42)
[2016-12-13] MEDS: IPRATROPIUM NEB FS 0.5 MG/2.5 ML AMPUL.NEB NEB SCH ×4 (01:30→19:42)
[2016-12-13] MEDS: OMEPRAZOLE 20 MG GT SCH (05:28)
[2016-12-13] MEDS: GLYCOPYRROLATE 1 MG TABLET GT SCH ×3 (05:28→17:16)
[2016-12-13] MEDS: LEVOTHYROXINE SODIUM 150 MCG TABLET GT SCH (05:28)
[2016-12-13] MEDS: BACLOFEN (10 MG) 10 MG TABLET GT SCH ×3 (05:28→21:08)
[2016-12-13] MEDS: POLYVINYL ALCOHOL 15 ML BOTTLE EACHEYE SCH ×4 (08:40→21:08)
[2016-12-13] MEDS: AMIODARONE HCL 200 MG TABLET GT SCH (08:40)
[2016-12-13] MEDS: ACIDOPHILUS/BULGARICUS 1 EACH TAB.CHEW GT SCH (08:40)
[2016-12-13] MEDS: POLYETHYLENE GLYCOL 3350 17 GM POWD.PACK GT SCH (08:40)
[2016-12-13] MEDS: MULTI-DELYN GT SCH (08:41)
[2016-12-13] MEDS: ASCORBIC ACID 500 MG TABLET GT SCH (08:42)
[2016-12-13] MEDS: POTASSIUM CHLORIDE 20 MEQ/15 ML ML GT SCH (08:42)
[2016-12-13] MEDS: HEPARIN SODIUM, PORCINE 5000 UNITS/1 ML VIAL SQ SCH ×2 (08:44→21:09)
[2016-12-13] MEDS: ZINC OXIDE 30 GM TUBE TP SCH ×4 (08:44→21:09)
[2016-12-13] MEDS: HYDROGEN PEROXIDE 480 ML BOTTLE TP SCH ×2 (08:44→21:09)
[2016-12-13 10:20] VITALS: BP 120/61
[2016-12-13 20:00] VITALS: BP 114/63
[2016-12-13] MEDS: FINASTERIDE (5 MG) 5 MG TABLET GT SCH (20:00)
[2016-12-14] MEDS: IPRATROPIUM NEB FS 0.5 MG/2.5 ML AMPUL.NEB NEB SCH ×4 (00:46→19:47)
[2016-12-14] MEDS: ALBUTEROL FS 2.5 MG/3 ML VIAL.NEB NEB SCH ×4 (00:46→19:47)
[2016-12-14] MEDS: GLYCOPYRROLATE 1 MG TABLET GT SCH ×5 (00:49→23:36)
[2016-12-14] MEDS: BACLOFEN (10 MG) 10 MG TABLET GT SCH ×3 (05:10→20:07)
[2016-12-14] MEDS: LEVOTHYROXINE SODIUM 150 MCG TABLET GT SCH (05:11)
[2016-12-14] MEDS: OMEPRAZOLE 20 MG GT SCH (05:11)
[2016-12-14] MEDS: MAGNESIUM HYDROXIDE 30 ML UDC GT PRN (05:11)
[2016-12-14] MEDS: RENAL NOVASOURCE 1,000 ML BOTTLE GT PRN (05:11)
[2016-12-14 07:42] VITALS: BP 119/76
[2016-12-14] MEDS: AMIODARONE HCL 200 MG TABLET GT SCH (09:44)
[2016-12-14] MEDS: POLYVINYL ALCOHOL 15 ML BOTTLE EACHEYE SCH ×4 (09:44→20:07)
[2016-12-14] MEDS: MULTI-DELYN GT SCH (09:44)
[2016-12-14] MEDS: POTASSIUM CHLORIDE 20 MEQ/15 ML ML GT SCH (09:44)
[2016-12-14] MEDS: POLYETHYLENE GLYCOL 3350 17 GM POWD.PACK GT SCH (09:44)
[2016-12-14] MEDS: ASCORBIC ACID 500 MG TABLET GT SCH (09:44)
[2016-12-14] MEDS: ACIDOPHILUS/BULGARICUS 1 EACH TAB.CHEW GT SCH (09:44)
[2016-12-14] MEDS: HEPARIN SODIUM, PORCINE 5000 UNITS/1 ML VIAL SQ SCH ×2 (09:45→20:07)
[2016-12-14] MEDS: HYDROGEN PEROXIDE 480 ML BOTTLE TP SCH ×2 (09:46→20:07)
[2016-12-14] MEDS: ZINC OXIDE 30 GM TUBE TP SCH ×4 (09:46→20:08)
[2016-12-14 19:44] VITALS: BP 100/63
[2016-12-14] MEDS: FINASTERIDE (5 MG) 5 MG TABLET GT SCH (20:07)
[2016-12-15] MEDS: IPRATROPIUM NEB FS 0.5 MG/2.5 ML AMPUL.NEB NEB SCH ×4 (01:54→20:19)
[2016-12-15] MEDS: ALBUTEROL FS 2.5 MG/3 ML VIAL.NEB NEB SCH ×4 (01:54→20:19)
[2016-12-15] MEDS: RENAL NOVASOURCE 1,000 ML BOTTLE GT PRN ×2 (05:14→19:27)
[2016-12-15] MEDS: GLYCOPYRROLATE 1 MG TABLET GT SCH ×4 (05:14→23:12)
[2016-12-15] MEDS: LEVOTHYROXINE SODIUM 150 MCG TABLET GT SCH (05:14)
[2016-12-15] MEDS: OMEPRAZOLE 20 MG GT SCH (05:14)
[2016-12-15] MEDS: BACLOFEN (10 MG) 10 MG TABLET GT SCH ×3 (05:14→20:39)
[2016-12-15 07:39] VITALS: BP 109/73
[2016-12-15] MEDS: AMIODARONE HCL 200 MG TABLET GT SCH (09:00)
[2016-12-15] MEDS: POLYVINYL ALCOHOL 15 ML BOTTLE EACHEYE SCH ×4 (09:32→20:39)
[2016-12-15] MEDS: POLYETHYLENE GLYCOL 3350 17 GM POWD.PACK GT SCH (09:33)
[2016-12-15] MEDS: MULTI-DELYN GT SCH (09:33)
[2016-12-15] MEDS: POTASSIUM CHLORIDE 20 MEQ/15 ML ML GT SCH (09:33)
[2016-12-15] MEDS: ASCORBIC ACID 500 MG TABLET GT SCH (09:33)
[2016-12-15] MEDS: HYDROGEN PEROXIDE 480 ML BOTTLE TP SCH ×2 (09:33→20:39)
[2016-12-15] MEDS: ACIDOPHILUS/BULGARICUS 1 EACH TAB.CHEW GT SCH (09:33)
[2016-12-15] MEDS: HEPARIN SODIUM, PORCINE 5000 UNITS/1 ML VIAL SQ SCH ×2 (09:33→20:39)
[2016-12-15] MEDS: ZINC OXIDE 30 GM TUBE TP SCH ×4 (09:34→20:39)
[2016-12-15 19:38] VITALS: BP 126/73
[2016-12-15] MEDS: FINASTERIDE (5 MG) 5 MG TABLET GT SCH (20:39)
[2016-12-16] MEDS: ALBUTEROL FS 2.5 MG/3 ML VIAL.NEB NEB SCH ×4 (00:46→19:53)
[2016-12-16] MEDS: IPRATROPIUM NEB FS 0.5 MG/2.5 ML AMPUL.NEB NEB SCH ×4 (00:46→19:53)
[2016-12-16] MEDS: BACLOFEN (10 MG) 10 MG TABLET GT SCH ×3 (05:13→20:30)
[2016-12-16] MEDS: OMEPRAZOLE 20 MG GT SCH (05:13)
[2016-12-16] MEDS: LEVOTHYROXINE SODIUM 150 MCG TABLET GT SCH (05:13)
[2016-12-16] MEDS: GLYCOPYRROLATE 1 MG TABLET GT SCH ×4 (05:13→23:26)
[2016-12-16] MEDS: POLYVINYL ALCOHOL 15 ML BOTTLE EACHEYE SCH ×4 (09:01→20:30)
[2016-12-16] MEDS: AMIODARONE HCL 200 MG TABLET GT SCH (09:01)
[2016-12-16] MEDS: POLYETHYLENE GLYCOL 3350 17 GM POWD.PACK GT SCH (09:01)
[2016-12-16] MEDS: POTASSIUM CHLORIDE 20 MEQ/15 ML ML GT SCH (09:01)
[2016-12-16] MEDS: ACIDOPHILUS/BULGARICUS 1 EACH TAB.CHEW GT SCH (09:01)
[2016-12-16] MEDS: MULTI-DELYN GT SCH (09:01)
[2016-12-16] MEDS: ASCORBIC ACID 500 MG TABLET GT SCH (09:01)
[2016-12-16] MEDS: HEPARIN SODIUM, PORCINE 5000 UNITS/1 ML VIAL SQ SCH ×2 (09:02→20:30)
[2016-12-16] MEDS: ZINC OXIDE 30 GM TUBE TP SCH ×4 (09:02→20:31)
[2016-12-16] MEDS: HYDROGEN PEROXIDE 480 ML BOTTLE TP SCH ×2 (09:02→20:30)
[2016-12-16 19:49] VITALS: BP 103/60
[2016-12-16] MEDS: FINASTERIDE (5 MG) 5 MG TABLET GT SCH (20:30)
[2016-12-17] MEDS: IPRATROPIUM NEB FS 0.5 MG/2.5 ML AMPUL.NEB NEB SCH ×4 (02:07→20:24)
[2016-12-17] MEDS: ALBUTEROL FS 2.5 MG/3 ML VIAL.NEB NEB SCH ×4 (02:08→20:24)
[2016-12-17] MEDS: BACLOFEN (10 MG) 10 MG TABLET GT SCH ×3 (05:11→21:17)
[2016-12-17] MEDS: OMEPRAZOLE 20 MG GT SCH (05:12)
[2016-12-17] MEDS: GLYCOPYRROLATE 1 MG TABLET GT SCH ×3 (05:12→18:25)
[2016-12-17] MEDS: MAGNESIUM HYDROXIDE 30 ML UDC GT PRN (05:12)
[2016-12-17] MEDS: LEVOTHYROXINE SODIUM 150 MCG TABLET GT SCH (05:12)
[2016-12-17] MEDS: RENAL NOVASOURCE 1,000 ML BOTTLE GT PRN (05:12)
[2016-12-17 07:38] VITALS: BP 110/78
[2016-12-17] MEDS: HYDROGEN PEROXIDE 480 ML BOTTLE TP SCH ×2 (09:00→21:17)
[2016-12-17] MEDS: ZINC OXIDE 30 GM TUBE TP SCH ×4 (09:00→21:18)
[2016-12-17] MEDS: AMIODARONE HCL 200 MG TABLET GT SCH (09:17)
[2016-12-17] MEDS: ACIDOPHILUS/BULGARICUS 1 EACH TAB.CHEW GT SCH (09:17)
[2016-12-17] MEDS: MULTI-DELYN GT SCH (09:17)
[2016-12-17] MEDS: POLYVINYL ALCOHOL 15 ML BOTTLE EACHEYE SCH ×4 (09:17→21:17)
[2016-12-17] MEDS: ASCORBIC ACID 500 MG TABLET GT SCH (09:17)
[2016-12-17] MEDS: ERGOCALCIFEROL (VITAMIN D2) 8,000 UNIT/ML GT SCH (09:17)
[2016-12-17] MEDS: POLYETHYLENE GLYCOL 3350 17 GM POWD.PACK GT SCH (09:17)
[2016-12-17] MEDS: POTASSIUM CHLORIDE 20 MEQ/15 ML ML GT SCH (09:17)
[2016-12-17] MEDS: HEPARIN SODIUM, PORCINE 5000 UNITS/1 ML VIAL SQ SCH ×2 (09:18→21:17)
--- NOTE | 2016-12-17 17:04 | NUR ---
Received new order from Dr. Paniagua to resume Heparin 5000units inject 1ml SQ Q12hrs as ordered previously noted and carried out.
[2016-12-17 19:53] VITALS: BP 107/63
[2016-12-17] MEDS: FINASTERIDE (5 MG) 5 MG TABLET GT SCH (20:00)
[2016-12-18] MEDS: GLYCOPYRROLATE 1 MG TABLET GT SCH ×4 (00:03→17:32)
[2016-12-18] MEDS: IPRATROPIUM NEB FS 0.5 MG/2.5 ML AMPUL.NEB NEB SCH ×4 (01:29→20:06)
[2016-12-18] MEDS: ALBUTEROL FS 2.5 MG/3 ML VIAL.NEB NEB SCH ×4 (01:29→20:06)
[2016-12-18] MEDS: LEVOTHYROXINE SODIUM 150 MCG TABLET GT SCH (05:38)
[2016-12-18] MEDS: BACLOFEN (10 MG) 10 MG TABLET GT SCH ×3 (05:38→21:04)
[2016-12-18] MEDS: OMEPRAZOLE 20 MG GT SCH (05:38)
[2016-12-18 08:11] VITALS: BP 112/76
[2016-12-18] MEDS: POLYVINYL ALCOHOL 15 ML BOTTLE EACHEYE SCH ×4 (08:26→21:04)
[2016-12-18] MEDS: MULTI-DELYN GT SCH (08:27)
[2016-12-18] MEDS: ASCORBIC ACID 500 MG TABLET GT SCH (08:27)
[2016-12-18] MEDS: POLYETHYLENE GLYCOL 3350 17 GM POWD.PACK GT SCH (08:27)
[2016-12-18] MEDS: ACIDOPHILUS/BULGARICUS 1 EACH TAB.CHEW GT SCH (08:27)
[2016-12-18] MEDS: POTASSIUM CHLORIDE 20 MEQ/15 ML ML GT SCH (08:27)
[2016-12-18] MEDS: AMIODARONE HCL 200 MG TABLET GT SCH (08:27)
[2016-12-18] MEDS: HEPARIN SODIUM, PORCINE 5000 UNITS/1 ML VIAL SQ SCH ×2 (08:28→21:06)
[2016-12-18] MEDS: HYDROGEN PEROXIDE 480 ML BOTTLE TP SCH ×2 (09:08→21:06)
[2016-12-18] MEDS: ZINC OXIDE 30 GM TUBE TP SCH ×4 (09:08→21:07)
[2016-12-18 20:00] VITALS: BP 132/77
[2016-12-18] MEDS: FINASTERIDE (5 MG) 5 MG TABLET GT SCH (20:00)
[2016-12-19] MEDS: GLYCOPYRROLATE 1 MG TABLET GT SCH ×5 (00:37→23:48)
[2016-12-19] MEDS: IPRATROPIUM NEB FS 0.5 MG/2.5 ML AMPUL.NEB NEB SCH ×4 (02:14→19:30)
[2016-12-19] MEDS: ALBUTEROL FS 2.5 MG/3 ML VIAL.NEB NEB SCH ×4 (02:14→19:30)
[2016-12-19] MEDS: BACLOFEN (10 MG) 10 MG TABLET GT SCH ×3 (05:42→21:09)
[2016-12-19] MEDS: OMEPRAZOLE 20 MG GT SCH (05:43)
[2016-12-19] MEDS: LEVOTHYROXINE SODIUM 150 MCG TABLET GT SCH (05:43)
[2016-12-19 08:00] VITALS: BP 117/72
[2016-12-19] MEDS: HEPARIN SODIUM, PORCINE 5000 UNITS/1 ML VIAL SQ SCH ×2 (09:56→21:10)
[2016-12-19] MEDS: POTASSIUM CHLORIDE 20 MEQ/15 ML ML GT SCH (09:56)
[2016-12-19] MEDS: MULTI-DELYN GT SCH (09:56)
[2016-12-19] MEDS: POLYETHYLENE GLYCOL 3350 17 GM POWD.PACK GT SCH (09:56)
[2016-12-19] MEDS: POLYVINYL ALCOHOL 15 ML BOTTLE EACHEYE SCH ×4 (09:56→21:09)
[2016-12-19] MEDS: ASCORBIC ACID 500 MG TABLET GT SCH (09:56)
[2016-12-19] MEDS: ACIDOPHILUS/BULGARICUS 1 EACH TAB.CHEW GT SCH (09:56)
[2016-12-19] MEDS: AMIODARONE HCL 200 MG TABLET GT SCH (09:56)
[2016-12-19] MEDS: ZINC OXIDE 30 GM TUBE TP SCH ×5 (09:57→21:11)
[2016-12-19] MEDS: HYDROGEN PEROXIDE 480 ML BOTTLE TP SCH ×2 (09:57→21:10)
--- NOTE | 2016-12-19 10:05 | NUR ---
Seen and examined by Dr David with no new order
[2016-12-19] MEDS: FINASTERIDE (5 MG) 5 MG TABLET GT SCH (20:00)
[2016-12-19 20:07] VITALS: BP 108/61
[2016-12-20] MEDS: IPRATROPIUM NEB FS 0.5 MG/2.5 ML AMPUL.NEB NEB SCH ×4 (02:21→19:38)
[2016-12-20] MEDS: ALBUTEROL FS 2.5 MG/3 ML VIAL.NEB NEB SCH ×4 (02:21→19:38)
[2016-12-20] MEDS: BACLOFEN (10 MG) 10 MG TABLET GT SCH ×3 (05:00→21:27)
[2016-12-20] MEDS: OMEPRAZOLE 20 MG GT SCH (06:06)
[2016-12-20] MEDS: GLYCOPYRROLATE 1 MG TABLET GT SCH ×3 (06:06→17:37)
[2016-12-20] MEDS: LEVOTHYROXINE SODIUM 150 MCG TABLET GT SCH (06:06)
[2016-12-20 08:12] VITALS: BP 128/77
[2016-12-20] MEDS: ACIDOPHILUS/BULGARICUS 1 EACH TAB.CHEW GT SCH (08:59)
[2016-12-20] MEDS: POLYVINYL ALCOHOL 15 ML BOTTLE EACHEYE SCH ×4 (08:59→21:27)
[2016-12-20] MEDS: POLYETHYLENE GLYCOL 3350 17 GM POWD.PACK GT SCH (08:59)
[2016-12-20] MEDS: ASCORBIC ACID 500 MG TABLET GT SCH (08:59)
[2016-12-20] MEDS: AMIODARONE HCL 200 MG TABLET GT SCH (08:59)
[2016-12-20] MEDS: MULTI-DELYN GT SCH (08:59)
[2016-12-20] MEDS: POTASSIUM CHLORIDE 20 MEQ/15 ML ML GT SCH (08:59)
[2016-12-20] MEDS: ZINC OXIDE 30 GM TUBE TP SCH ×6 (09:53→21:28)
[2016-12-20] MEDS: HYDROGEN PEROXIDE 480 ML BOTTLE TP SCH ×2 (09:53→21:27)
[2016-12-20] MEDS: HEPARIN SODIUM, PORCINE 5000 UNITS/1 ML VIAL SQ SCH ×2 (09:53→21:27)
[2016-12-20 19:59] VITALS: BP_SYST 105
[2016-12-20] MEDS: FINASTERIDE (5 MG) 5 MG TABLET GT SCH (20:00)
[2016-12-20] MEDS: RENAL NOVASOURCE 1,000 ML BOTTLE GT PRN (21:29)
[2016-12-21] MEDS: GLYCOPYRROLATE 1 MG TABLET GT SCH ×4 (00:04→18:01)
[2016-12-21] MEDS: IPRATROPIUM NEB FS 0.5 MG/2.5 ML AMPUL.NEB NEB SCH ×4 (01:42→19:24)
[2016-12-21] MEDS: ALBUTEROL FS 2.5 MG/3 ML VIAL.NEB NEB SCH ×4 (01:42→19:24)
[2016-12-21] MEDS: LEVOTHYROXINE SODIUM 150 MCG TABLET GT SCH (05:48)
[2016-12-21] MEDS: BACLOFEN (10 MG) 10 MG TABLET GT SCH ×3 (05:48→21:17)
[2016-12-21] MEDS: OMEPRAZOLE 20 MG GT SCH (05:48)
[2016-12-21 07:50] VITALS: BP 102/60
[2016-12-21] MEDS: ACIDOPHILUS/BULGARICUS 1 EACH TAB.CHEW GT SCH (09:02)
[2016-12-21] MEDS: POLYVINYL ALCOHOL 15 ML BOTTLE EACHEYE SCH ×4 (09:02→21:17)
[2016-12-21] MEDS: MULTI-DELYN GT SCH (09:02)
[2016-12-21] MEDS: POLYETHYLENE GLYCOL 3350 17 GM POWD.PACK GT SCH (09:02)
[2016-12-21] MEDS: POTASSIUM CHLORIDE 20 MEQ/15 ML ML GT SCH (09:02)
[2016-12-21] MEDS: AMIODARONE HCL 200 MG TABLET GT SCH (09:02)
[2016-12-21] MEDS: ASCORBIC ACID 500 MG TABLET GT SCH (09:02)
[2016-12-21] MEDS: HEPARIN SODIUM, PORCINE 5000 UNITS/1 ML VIAL SQ SCH ×2 (09:03→21:18)
[2016-12-21] MEDS: HYDROGEN PEROXIDE 480 ML BOTTLE TP SCH ×2 (09:04→21:18)
[2016-12-21] MEDS: ZINC OXIDE 30 GM TUBE TP SCH ×6 (09:04→21:18)
[2016-12-21] MEDS: FINASTERIDE (5 MG) 5 MG TABLET GT SCH (20:00)
[2016-12-21 20:12] VITALS: BP 100/67
[2016-12-22] MEDS: GLYCOPYRROLATE 1 MG TABLET GT SCH ×4 (00:10→17:31)
[2016-12-22] MEDS: IPRATROPIUM NEB FS 0.5 MG/2.5 ML AMPUL.NEB NEB SCH ×4 (01:48→19:53)
[2016-12-22] MEDS: ALBUTEROL FS 2.5 MG/3 ML VIAL.NEB NEB SCH ×4 (01:48→19:53)
[2016-12-22] MEDS: RENAL NOVASOURCE 1,000 ML BOTTLE GT PRN (03:56)
[2016-12-22] MEDS: LEVOTHYROXINE SODIUM 150 MCG TABLET GT SCH (05:25)
[2016-12-22] MEDS: BACLOFEN (10 MG) 10 MG TABLET GT SCH ×3 (05:25→20:53)
[2016-12-22] MEDS: OMEPRAZOLE 20 MG GT SCH (05:25)
[2016-12-22 07:50] VITALS: BP 118/71
[2016-12-22] MEDS: POLYVINYL ALCOHOL 15 ML BOTTLE EACHEYE SCH ×4 (08:03→20:53)
[2016-12-22] MEDS: POTASSIUM CHLORIDE 20 MEQ/15 ML ML GT SCH (08:04)
[2016-12-22] MEDS: AMIODARONE HCL 200 MG TABLET GT SCH (08:04)
[2016-12-22] MEDS: MULTI-DELYN GT SCH (08:04)
[2016-12-22] MEDS: ACIDOPHILUS/BULGARICUS 1 EACH TAB.CHEW GT SCH (08:04)
[2016-12-22] MEDS: ASCORBIC ACID 500 MG TABLET GT SCH (08:04)
[2016-12-22] MEDS: POLYETHYLENE GLYCOL 3350 17 GM POWD.PACK GT SCH (08:04)
[2016-12-22] MEDS: HEPARIN SODIUM, PORCINE 5000 UNITS/1 ML VIAL SQ SCH ×2 (08:06→20:53)
[2016-12-22] MEDS: HYDROCODONE/APAP 5/325MG 1 EACH TABLET GT PRN (08:08)
[2016-12-22] MEDS: ZINC OXIDE 30 GM TUBE TP SCH ×6 (10:15→21:48)
[2016-12-22] MEDS: HYDROGEN PEROXIDE 480 ML BOTTLE TP SCH ×2 (10:15→21:48)
[2016-12-22] MEDS: MAGNESIUM HYDROXIDE 30 ML UDC GT PRN (17:32)
[2016-12-22 20:22] VITALS: BP 110/68
[2016-12-22] MEDS: FINASTERIDE (5 MG) 5 MG TABLET GT SCH (20:53)
[2016-12-23] MEDS: GLYCOPYRROLATE 1 MG TABLET GT SCH ×5 (00:20→23:38)
[2016-12-23] MEDS: IPRATROPIUM NEB FS 0.5 MG/2.5 ML AMPUL.NEB NEB SCH ×4 (01:47→19:41)
[2016-12-23] MEDS: ALBUTEROL FS 2.5 MG/3 ML VIAL.NEB NEB SCH ×4 (01:47→19:41)
[2016-12-23] MEDS: BACLOFEN (10 MG) 10 MG TABLET GT SCH ×3 (05:40→20:21)
[2016-12-23] MEDS: OMEPRAZOLE 20 MG GT SCH (05:40)
[2016-12-23] MEDS: LEVOTHYROXINE SODIUM 150 MCG TABLET GT SCH (05:40)
[2016-12-23 08:01] VITALS: BP 119/71
[2016-12-23] MEDS: HEPARIN SODIUM, PORCINE 5000 UNITS/1 ML VIAL SQ SCH ×2 (09:00→20:22)
[2016-12-23] MEDS: POLYVINYL ALCOHOL 15 ML BOTTLE EACHEYE SCH ×4 (09:00→20:24)
[2016-12-23] MEDS: ACIDOPHILUS/BULGARICUS 1 EACH TAB.CHEW GT SCH (09:00)
[2016-12-23] MEDS: POTASSIUM CHLORIDE 20 MEQ/15 ML ML GT SCH (09:00)
[2016-12-23] MEDS: AMIODARONE HCL 200 MG TABLET GT SCH (09:00)
[2016-12-23] MEDS: POLYETHYLENE GLYCOL 3350 17 GM POWD.PACK GT SCH (09:00)
[2016-12-23] MEDS: ASCORBIC ACID 500 MG TABLET GT SCH (09:00)
[2016-12-23] MEDS: MVI/MINERALS LIQUID (CEROVITE) GT SCH (09:00)
[2016-12-23] MEDS: ZINC OXIDE 30 GM TUBE TP SCH ×6 (10:30→20:22)
[2016-12-23] MEDS: HYDROGEN PEROXIDE 480 ML BOTTLE TP SCH ×2 (10:30→20:22)
[2016-12-23] MEDS: FINASTERIDE (5 MG) 5 MG TABLET GT SCH (20:20)
[2016-12-23 21:09] VITALS: BP 115/63
[2016-12-24] MEDS: ALBUTEROL FS 2.5 MG/3 ML VIAL.NEB NEB SCH ×4 (01:57→20:04)
[2016-12-24] MEDS: IPRATROPIUM NEB FS 0.5 MG/2.5 ML AMPUL.NEB NEB SCH ×4 (01:57→20:04)
[2016-12-24] MEDS: BACLOFEN (10 MG) 10 MG TABLET GT SCH ×3 (05:38→21:18)
[2016-12-24] MEDS: GLYCOPYRROLATE 1 MG TABLET GT SCH ×4 (05:38→23:36)
[2016-12-24] MEDS: LEVOTHYROXINE SODIUM 150 MCG TABLET GT SCH (05:38)
[2016-12-24] MEDS: OMEPRAZOLE 20 MG GT SCH (05:38)
[2016-12-24 07:38] VITALS: BP 103/71
[2016-12-24] MEDS: POTASSIUM CHLORIDE 20 MEQ/15 ML ML GT SCH (08:57)
[2016-12-24] MEDS: POLYETHYLENE GLYCOL 3350 17 GM POWD.PACK GT SCH (08:57)
[2016-12-24] MEDS: AMIODARONE HCL 200 MG TABLET GT SCH (08:57)
[2016-12-24] MEDS: MVI/MINERALS LIQUID (CEROVITE) GT SCH (08:57)
[2016-12-24] MEDS: POLYVINYL ALCOHOL 15 ML BOTTLE EACHEYE SCH ×4 (08:57→21:18)
[2016-12-24] MEDS: ERGOCALCIFEROL (VITAMIN D2) 8,000 UNIT/ML GT SCH (08:57)
[2016-12-24] MEDS: ACIDOPHILUS/BULGARICUS 1 EACH TAB.CHEW GT SCH (08:57)
[2016-12-24] MEDS: ASCORBIC ACID 500 MG TABLET GT SCH (08:57)
[2016-12-24] MEDS: ZINC OXIDE 30 GM TUBE TP SCH ×6 (08:58→21:19)
[2016-12-24] MEDS: HYDROGEN PEROXIDE 480 ML BOTTLE TP SCH ×2 (08:58→21:19)
[2016-12-24] MEDS: HEPARIN SODIUM, PORCINE 5000 UNITS/1 ML VIAL SQ SCH ×2 (08:58→21:19)
[2016-12-24 20:00] VITALS: BP 101/58
[2016-12-24] MEDS: FINASTERIDE (5 MG) 5 MG TABLET GT SCH (20:00)
[2016-12-25] MEDS: IPRATROPIUM NEB FS 0.5 MG/2.5 ML AMPUL.NEB NEB SCH ×4 (00:40→19:42)
[2016-12-25] MEDS: ALBUTEROL FS 2.5 MG/3 ML VIAL.NEB NEB SCH ×4 (00:40→19:42)
[2016-12-25] MEDS: LEVOTHYROXINE SODIUM 150 MCG TABLET GT SCH (05:24)
[2016-12-25] MEDS: BACLOFEN (10 MG) 10 MG TABLET GT SCH ×3 (05:24→21:18)
[2016-12-25] MEDS: GLYCOPYRROLATE 1 MG TABLET GT SCH ×4 (05:24→23:19)
[2016-12-25] MEDS: OMEPRAZOLE 20 MG GT SCH (05:24)
[2016-12-25 08:24] VITALS: BP 127/53
[2016-12-25] MEDS: HYDROGEN PEROXIDE 480 ML BOTTLE TP SCH ×2 (09:00→21:20)
[2016-12-25] MEDS: ZINC OXIDE 30 GM TUBE TP SCH ×5 (09:00→21:20)
[2016-12-25] MEDS: POLYVINYL ALCOHOL 15 ML BOTTLE EACHEYE SCH ×4 (09:02→21:18)
[2016-12-25] MEDS: ASCORBIC ACID 500 MG TABLET GT SCH (09:02)
[2016-12-25] MEDS: AMIODARONE HCL 200 MG TABLET GT SCH (09:02)
[2016-12-25] MEDS: MVI/MINERALS LIQUID (CEROVITE) GT SCH (09:02)
[2016-12-25] MEDS: ACIDOPHILUS/BULGARICUS 1 EACH TAB.CHEW GT SCH (09:02)
[2016-12-25] MEDS: POTASSIUM CHLORIDE 20 MEQ/15 ML ML GT SCH (09:02)
[2016-12-25] MEDS: POLYETHYLENE GLYCOL 3350 17 GM POWD.PACK GT SCH (09:02)
[2016-12-25] MEDS: HEPARIN SODIUM, PORCINE 5000 UNITS/1 ML VIAL SQ SCH ×2 (09:03→21:20)
[2016-12-25] MEDS: FINASTERIDE (5 MG) 5 MG TABLET GT SCH (20:00)
[2016-12-25 20:16] VITALS: BP 107/56
[2016-12-26] MEDS: IPRATROPIUM NEB FS 0.5 MG/2.5 ML AMPUL.NEB NEB SCH ×4 (01:47→20:02)
[2016-12-26] MEDS: ALBUTEROL FS 2.5 MG/3 ML VIAL.NEB NEB SCH ×4 (01:47→20:02)
[2016-12-26] MEDS: BACLOFEN (10 MG) 10 MG TABLET GT SCH ×3 (05:00→20:34)
[2016-12-26] MEDS: GLYCOPYRROLATE 1 MG TABLET GT SCH ×3 (06:03→17:55)
[2016-12-26] MEDS: LEVOTHYROXINE SODIUM 150 MCG TABLET GT SCH (06:03)
[2016-12-26] MEDS: OMEPRAZOLE 20 MG GT SCH (06:03)
[2016-12-26 07:40] VITALS: BP 102/60
[2016-12-26] MEDS: POLYETHYLENE GLYCOL 3350 17 GM POWD.PACK GT SCH (09:00)
[2016-12-26] MEDS: ZINC OXIDE 30 GM TUBE TP SCH ×4 (09:00→20:39)
[2016-12-26] MEDS: POLYVINYL ALCOHOL 15 ML BOTTLE EACHEYE SCH ×4 (09:00→20:34)
[2016-12-26] MEDS: POTASSIUM CHLORIDE 20 MEQ/15 ML ML GT SCH (09:00)
[2016-12-26] MEDS: HEPARIN SODIUM, PORCINE 5000 UNITS/1 ML VIAL SQ SCH ×2 (09:00→20:35)
[2016-12-26] MEDS: MVI/MINERALS LIQUID (CEROVITE) GT SCH (09:00)
[2016-12-26] MEDS: AMIODARONE HCL 200 MG TABLET GT SCH (09:00)
[2016-12-26] MEDS: ACIDOPHILUS/BULGARICUS 1 EACH TAB.CHEW GT SCH (09:00)
[2016-12-26] MEDS: HYDROGEN PEROXIDE 480 ML BOTTLE TP SCH ×2 (09:00→20:35)
[2016-12-26] MEDS: ASCORBIC ACID 500 MG TABLET GT SCH (09:00)
[2016-12-26 20:09] VITALS: BP 103/64
[2016-12-26] MEDS: FINASTERIDE (5 MG) 5 MG TABLET GT SCH (20:34)
[2016-12-27] MEDS: GLYCOPYRROLATE 1 MG TABLET GT SCH ×5 (00:35→23:45)
[2016-12-27] MEDS: IPRATROPIUM NEB FS 0.5 MG/2.5 ML AMPUL.NEB NEB SCH ×4 (00:40→20:01)
[2016-12-27] MEDS: ALBUTEROL FS 2.5 MG/3 ML VIAL.NEB NEB SCH ×4 (00:40→20:01)
[2016-12-27] MEDS: BACLOFEN (10 MG) 10 MG TABLET GT SCH ×3 (05:24→20:50)
[2016-12-27] MEDS: OMEPRAZOLE 20 MG GT SCH (05:25)
[2016-12-27] MEDS: LEVOTHYROXINE SODIUM 150 MCG TABLET GT SCH (05:25)
[2016-12-27 07:42] VITALS: BP 128/83
[2016-12-27] MEDS: ACIDOPHILUS/BULGARICUS 1 EACH TAB.CHEW GT SCH (09:31)
[2016-12-27] MEDS: POLYETHYLENE GLYCOL 3350 17 GM POWD.PACK GT SCH (09:31)
[2016-12-27] MEDS: ASCORBIC ACID 500 MG TABLET GT SCH (09:31)
[2016-12-27] MEDS: POTASSIUM CHLORIDE 20 MEQ/15 ML ML GT SCH (09:31)
[2016-12-27] MEDS: POLYVINYL ALCOHOL 15 ML BOTTLE EACHEYE SCH ×4 (09:31→20:50)
[2016-12-27] MEDS: AMIODARONE HCL 200 MG TABLET GT SCH (09:31)
[2016-12-27] MEDS: MVI/MINERALS LIQUID (CEROVITE) GT SCH (09:31)
[2016-12-27] MEDS: HEPARIN SODIUM, PORCINE 5000 UNITS/1 ML VIAL SQ SCH ×2 (09:32→20:51)
[2016-12-27] MEDS: HYDROGEN PEROXIDE 480 ML BOTTLE TP SCH ×2 (10:45→20:51)
[2016-12-27] MEDS: ZINC OXIDE 30 GM TUBE TP SCH ×4 (10:45→20:51)
[2016-12-27 20:23] VITALS: BP 116/74
[2016-12-27] MEDS: FINASTERIDE (5 MG) 5 MG TABLET GT SCH (20:50)
[2016-12-28] MEDS: ALBUTEROL FS 2.5 MG/3 ML VIAL.NEB NEB SCH ×4 (02:09→19:41)
[2016-12-28] MEDS: IPRATROPIUM NEB FS 0.5 MG/2.5 ML AMPUL.NEB NEB SCH ×4 (02:09→19:41)
[2016-12-28] MEDS: GLYCOPYRROLATE 1 MG TABLET GT SCH ×3 (05:27→17:14)
[2016-12-28] MEDS: OMEPRAZOLE 20 MG GT SCH (05:27)
[2016-12-28] MEDS: RENAL NOVASOURCE 1,000 ML BOTTLE GT PRN (05:27)
[2016-12-28] MEDS: BACLOFEN (10 MG) 10 MG TABLET GT SCH ×3 (05:27→20:43)
[2016-12-28] MEDS: LEVOTHYROXINE SODIUM 150 MCG TABLET GT SCH (05:27)
[2016-12-28] MEDS: MAGNESIUM HYDROXIDE 30 ML UDC GT PRN (05:27)
[2016-12-28 08:00] VITALS: BP 139/60
[2016-12-28] MEDS: POTASSIUM CHLORIDE 20 MEQ/15 ML ML GT SCH (09:00)
[2016-12-28] MEDS: POLYVINYL ALCOHOL 15 ML BOTTLE EACHEYE SCH ×4 (09:00→20:43)
[2016-12-28] MEDS: POLYETHYLENE GLYCOL 3350 17 GM POWD.PACK GT SCH (09:00)
[2016-12-28] MEDS: ACIDOPHILUS/BULGARICUS 1 EACH TAB.CHEW GT SCH (09:00)
[2016-12-28] MEDS: MVI/MINERALS LIQUID (CEROVITE) GT SCH (09:00)
[2016-12-28] MEDS: ASCORBIC ACID 500 MG TABLET GT SCH (09:00)
[2016-12-28] MEDS: HYDROGEN PEROXIDE 480 ML BOTTLE TP SCH ×2 (09:00→20:44)
[2016-12-28] MEDS: HEPARIN SODIUM, PORCINE 5000 UNITS/1 ML VIAL SQ SCH ×2 (09:00→20:44)
[2016-12-28] MEDS: ZINC OXIDE 30 GM TUBE TP SCH ×5 (09:00→20:44)
[2016-12-28] MEDS: AMIODARONE HCL 200 MG TABLET GT SCH (09:00)
[2016-12-28] MEDS: FINASTERIDE (5 MG) 5 MG TABLET GT SCH (20:43)
[2016-12-28 21:26] VITALS: BP 107/66
[2016-12-29] MEDS: IPRATROPIUM NEB FS 0.5 MG/2.5 ML AMPUL.NEB NEB SCH ×4 (00:47→19:49)
[2016-12-29] MEDS: ALBUTEROL FS 2.5 MG/3 ML VIAL.NEB NEB SCH ×4 (00:47→19:49)
[2016-12-29] MEDS: OMEPRAZOLE 20 MG GT SCH (05:09)
[2016-12-29] MEDS: BACLOFEN (10 MG) 10 MG TABLET GT SCH ×3 (05:09→20:27)
[2016-12-29] MEDS: GLYCOPYRROLATE 1 MG TABLET GT SCH ×5 (05:09→23:17)
[2016-12-29] MEDS: LEVOTHYROXINE SODIUM 150 MCG TABLET GT SCH (05:10)
[2016-12-29] MEDS: RENAL NOVASOURCE 1,000 ML BOTTLE GT PRN (05:32)
[2016-12-29 07:58] VITALS: BP 122/79
[2016-12-29] MEDS: POLYVINYL ALCOHOL 15 ML BOTTLE EACHEYE SCH ×4 (09:35→20:27)
[2016-12-29] MEDS: ACIDOPHILUS/BULGARICUS 1 EACH TAB.CHEW GT SCH (09:36)
[2016-12-29] MEDS: MVI/MINERALS LIQUID (CEROVITE) GT SCH (09:36)
[2016-12-29] MEDS: POLYETHYLENE GLYCOL 3350 17 GM POWD.PACK GT SCH (09:36)
[2016-12-29] MEDS: POTASSIUM CHLORIDE 20 MEQ/15 ML ML GT SCH (09:36)
[2016-12-29] MEDS: HEPARIN SODIUM, PORCINE 5000 UNITS/1 ML VIAL SQ SCH ×2 (09:36→20:27)
[2016-12-29] MEDS: ASCORBIC ACID 500 MG TABLET GT SCH (09:36)
[2016-12-29] MEDS: AMIODARONE HCL 200 MG TABLET GT SCH (09:36)
[2016-12-29] MEDS: HYDROGEN PEROXIDE 480 ML BOTTLE TP SCH ×2 (09:36→20:27)
[2016-12-29] MEDS: ZINC OXIDE 30 GM TUBE TP SCH ×6 (09:37→20:28)
--- NOTE | 2016-12-29 14:00 | NUR ---
IDT meeting was held. was unable to attend the meeting. Discussed plan of care. No new order.
[2016-12-29] MEDS: FINASTERIDE (5 MG) 5 MG TABLET GT SCH (20:27)
[2016-12-29] MEDS: LORAZEPAM 0.5 MG TABLET GT PRN (21:05)
[2016-12-29 21:10] VITALS: BP 95/60
[2016-12-30] MEDS: HYDROCODONE/APAP 5/325MG 1 EACH TABLET GT PRN (01:59)
--- NOTE | 2016-12-30 02:13 | NUR ---
LAWN SPRINKLER INSTALLER NOTES: @ 2105(12-29-16) NOTED PT WITH MYOCLONIC SZ ACTIVITY, M/B BODY JERKING AND TWITCHING EPISODE WITH NO S/SX OF RESP DISTRESS NOTED, AFEBRILE PRN LORAZEPAM 0.5 MG / TAB GIVEN VIA GT ORDERED, PT RELAXED AFTER AN HOUR, AT THIS TIME PT NOTICED AGAIN WITH SEIZURE LIKE ACTIVITY OF BODY JERKING , NO DISTRESS , AFEBRILE, WITH SOME FACIAL GRIMACING, PRN NORCO ORDERED FOR PAIN GIVEN VIA GT. CONTINUE TO MONITOR PT. REPOSITIONED AND KEPT PT CLEAN AND DRY, INDWELLING TREVINO CATH DRAINING WELL ; YELLOW CLEAR URINE NOTED, NO SEDIMENTS.
[2016-12-30] MEDS: IPRATROPIUM NEB FS 0.5 MG/2.5 ML AMPUL.NEB NEB SCH ×4 (02:18→20:25)
[2016-12-30] MEDS: ALBUTEROL FS 2.5 MG/3 ML VIAL.NEB NEB SCH ×4 (02:18→20:25)
[2016-12-30] MEDS: LORAZEPAM 0.5 MG TABLET GT PRN (03:14)
--- NOTE | 2016-12-30 03:14 | NUR ---
NOTED PT WITH ANOTHER EPISODE OF MYOCLONIC SZ M/B BODY JERKING AND EYE TWITCHING NO RESP DISTRESS, PTN ATIVAN 0.5 MG VIA GT GIVEN, CONT TO MONITOR. SEIZURE PRECAUTIONS OBSERVED AT ALL TIMES.
[2016-12-30] MEDS: OMEPRAZOLE 20 MG GT SCH (05:50)
[2016-12-30] MEDS: GLYCOPYRROLATE 1 MG TABLET GT SCH ×4 (05:50→23:14)
[2016-12-30] MEDS: LEVOTHYROXINE SODIUM 150 MCG TABLET GT SCH (05:50)
[2016-12-30] MEDS: BACLOFEN (10 MG) 10 MG TABLET GT SCH ×3 (05:50→20:07)
[2016-12-30] MEDS: RENAL NOVASOURCE 1,000 ML BOTTLE GT PRN (05:51)
--- NOTE | 2016-12-30 06:17 | NUR ---
RESIDENT SLEEPING COMFORTABLY AT THIS TIME, NO MORE EPISODE OF JERKING AND TWITCHING, REMAINS AFEBRILE. TOLERATED MEDS, GTF AND WATER FLUSHES. URINE OUTPUT 900 ML. COMPLETED AND RANJIT AM CARE, SAFETY AND SEIZURE PRECAUTIONS MAINTAINED. ALL NEEDS ATTENDED. CALL LIGHT WITHIN REACH. WILL ENDORSE CARE TO AM ONCOMING NURSE.
[2016-12-30 08:02] VITALS: BP 102/63
[2016-12-30] MEDS: POLYVINYL ALCOHOL 15 ML BOTTLE EACHEYE SCH ×4 (09:00→20:07)
[2016-12-30] MEDS: POLYETHYLENE GLYCOL 3350 17 GM POWD.PACK GT SCH (09:01)
[2016-12-30] MEDS: MVI/MINERALS LIQUID (CEROVITE) GT SCH (09:01)
[2016-12-30] MEDS: AMIODARONE HCL 200 MG TABLET GT SCH (09:01)
[2016-12-30] MEDS: ACIDOPHILUS/BULGARICUS 1 EACH TAB.CHEW GT SCH (09:01)
[2016-12-30] MEDS: HYDROGEN PEROXIDE 480 ML BOTTLE TP SCH ×2 (09:01→20:07)
[2016-12-30] MEDS: POTASSIUM CHLORIDE 20 MEQ/15 ML ML GT SCH (09:01)
[2016-12-30] MEDS: ASCORBIC ACID 500 MG TABLET GT SCH (09:01)
[2016-12-30] MEDS: HEPARIN SODIUM, PORCINE 5000 UNITS/1 ML VIAL SQ SCH ×2 (09:02→20:07)
[2016-12-30] MEDS: ZINC OXIDE 30 GM TUBE TP SCH ×6 (09:02→20:07)
[2016-12-30 19:55] VITALS: BP 99/59
[2016-12-30] MEDS: FINASTERIDE (5 MG) 5 MG TABLET GT SCH (20:07)
[2016-12-31] MEDS: IPRATROPIUM NEB FS 0.5 MG/2.5 ML AMPUL.NEB NEB SCH ×4 (01:30→20:15)
[2016-12-31] MEDS: ALBUTEROL FS 2.5 MG/3 ML VIAL.NEB NEB SCH ×4 (01:30→20:15)
[2016-12-31] MEDS: GLYCOPYRROLATE 1 MG TABLET GT SCH ×4 (05:25→23:42)
[2016-12-31] MEDS: OMEPRAZOLE 20 MG GT SCH (05:25)
[2016-12-31] MEDS: BACLOFEN (10 MG) 10 MG TABLET GT SCH ×3 (05:25→21:23)
[2016-12-31] MEDS: LEVOTHYROXINE SODIUM 150 MCG TABLET GT SCH (05:25)
[2016-12-31] MEDS: RENAL NOVASOURCE 1,000 ML BOTTLE GT PRN (05:25)
[2016-12-31 08:13] VITALS: BP 107/63
[2016-12-31] MEDS: AMIODARONE HCL 200 MG TABLET GT SCH (08:46)
[2016-12-31] MEDS: POLYVINYL ALCOHOL 15 ML BOTTLE EACHEYE SCH ×4 (08:46→21:23)
[2016-12-31] MEDS: ACIDOPHILUS/BULGARICUS 1 EACH TAB.CHEW GT SCH (08:46)
[2016-12-31] MEDS: MVI/MINERALS LIQUID (CEROVITE) GT SCH (08:46)
[2016-12-31] MEDS: POLYETHYLENE GLYCOL 3350 17 GM POWD.PACK GT SCH (08:46)
[2016-12-31] MEDS: POTASSIUM CHLORIDE 20 MEQ/15 ML ML GT SCH (08:46)
[2016-12-31] MEDS: ERGOCALCIFEROL (VITAMIN D2) 8,000 UNIT/ML GT SCH (08:47)
[2016-12-31] MEDS: ASCORBIC ACID 500 MG TABLET GT SCH (08:47)
[2016-12-31] MEDS: HEPARIN SODIUM, PORCINE 5000 UNITS/1 ML VIAL SQ SCH ×2 (09:08→21:24)
[2016-12-31] MEDS: ZINC OXIDE 30 GM TUBE TP SCH ×6 (09:09→21:24)
[2016-12-31] MEDS: HYDROGEN PEROXIDE 480 ML BOTTLE TP SCH ×2 (09:09→21:24)
[2016-12-31] MEDS: FINASTERIDE (5 MG) 5 MG TABLET GT SCH (20:00)
[2016-12-31 20:09] VITALS: BP 121/61
[2017-01-01] MEDS: ALBUTEROL FS 2.5 MG/3 ML VIAL.NEB NEB SCH ×4 (01:06→20:01)
[2017-01-01] MEDS: IPRATROPIUM NEB FS 0.5 MG/2.5 ML AMPUL.NEB NEB SCH ×4 (01:06→20:01)
[2017-01-01] MEDS: BACLOFEN (10 MG) 10 MG TABLET GT SCH ×3 (05:00→20:51)
[2017-01-01] MEDS: OMEPRAZOLE 20 MG GT SCH (06:07)
[2017-01-01] MEDS: GLYCOPYRROLATE 1 MG TABLET GT SCH ×4 (06:07→23:46)
[2017-01-01] MEDS: LEVOTHYROXINE SODIUM 150 MCG TABLET GT SCH (06:07)
[2017-01-01 08:03] VITALS: BP 136/81
[2017-01-01] MEDS: HYDROGEN PEROXIDE 480 ML BOTTLE TP SCH ×2 (09:00→20:51)
[2017-01-01] MEDS: AMIODARONE HCL 200 MG TABLET GT SCH (09:00)
[2017-01-01] MEDS: ASCORBIC ACID 500 MG TABLET GT SCH (09:00)
[2017-01-01] MEDS: POTASSIUM CHLORIDE 20 MEQ/15 ML ML GT SCH (09:00)
[2017-01-01] MEDS: ZINC OXIDE 30 GM TUBE TP SCH ×6 (09:00→20:52)
[2017-01-01] MEDS: HEPARIN SODIUM, PORCINE 5000 UNITS/1 ML VIAL SQ SCH ×2 (09:00→20:51)
[2017-01-01] MEDS: POLYVINYL ALCOHOL 15 ML BOTTLE EACHEYE SCH ×4 (09:00→20:51)
[2017-01-01] MEDS: POLYETHYLENE GLYCOL 3350 17 GM POWD.PACK GT SCH (09:00)
[2017-01-01] MEDS: ACIDOPHILUS/BULGARICUS 1 EACH TAB.CHEW GT SCH (09:00)
[2017-01-01] MEDS: MVI/MINERALS LIQUID (CEROVITE) GT SCH (09:00)
[2017-01-01] MEDS: RENAL NOVASOURCE 1,000 ML BOTTLE GT PRN (14:56)
[2017-01-01 20:42] VITALS: BP 117/68
[2017-01-01] MEDS: FINASTERIDE (5 MG) 5 MG TABLET GT SCH (20:51)
[2017-01-02] MEDS: IPRATROPIUM NEB FS 0.5 MG/2.5 ML AMPUL.NEB NEB SCH ×4 (02:20→19:30)
[2017-01-02] MEDS: ALBUTEROL FS 2.5 MG/3 ML VIAL.NEB NEB SCH ×4 (02:20→19:30)
[2017-01-02] MEDS: BACLOFEN (10 MG) 10 MG TABLET GT SCH ×3 (05:06→20:18)
[2017-01-02] MEDS: LEVOTHYROXINE SODIUM 150 MCG TABLET GT SCH (05:06)
[2017-01-02] MEDS: GLYCOPYRROLATE 1 MG TABLET GT SCH ×4 (05:06→23:12)
[2017-01-02] MEDS: OMEPRAZOLE 20 MG GT SCH (05:06)
[2017-01-02 08:11] VITALS: BP 104/62
[2017-01-02] MEDS: POLYVINYL ALCOHOL 15 ML BOTTLE EACHEYE SCH ×4 (08:45→20:17)
[2017-01-02] MEDS: MVI/MINERALS LIQUID (CEROVITE) GT SCH (08:45)
[2017-01-02] MEDS: AMIODARONE HCL 200 MG TABLET GT SCH (08:45)
[2017-01-02] MEDS: ACIDOPHILUS/BULGARICUS 1 EACH TAB.CHEW GT SCH (08:45)
[2017-01-02] MEDS: POLYETHYLENE GLYCOL 3350 17 GM POWD.PACK GT SCH (08:45)
[2017-01-02] MEDS: POTASSIUM CHLORIDE 20 MEQ/15 ML ML GT SCH (08:45)
[2017-01-02] MEDS: ASCORBIC ACID 500 MG TABLET GT SCH (08:45)
[2017-01-02] MEDS: HEPARIN SODIUM, PORCINE 5000 UNITS/1 ML VIAL SQ SCH ×2 (08:46→20:18)
[2017-01-02] MEDS: ZINC OXIDE 30 GM TUBE TP SCH ×6 (09:00→20:18)
[2017-01-02] MEDS: HYDROGEN PEROXIDE 480 ML BOTTLE TP SCH ×2 (09:00→20:18)
[2017-01-02] MEDS: FINASTERIDE (5 MG) 5 MG TABLET GT SCH (20:17)
[2017-01-02 20:40] VITALS: BP 123/75
[2017-01-03] MEDS: IPRATROPIUM NEB FS 0.5 MG/2.5 ML AMPUL.NEB NEB SCH ×4 (02:07→19:57)
[2017-01-03] MEDS: ALBUTEROL FS 2.5 MG/3 ML VIAL.NEB NEB SCH ×4 (02:08→19:57)
[2017-01-03] MEDS: LEVOTHYROXINE SODIUM 150 MCG TABLET GT SCH (05:51)
[2017-01-03] MEDS: GLYCOPYRROLATE 1 MG TABLET GT SCH ×4 (05:51→23:46)
[2017-01-03] MEDS: BACLOFEN (10 MG) 10 MG TABLET GT SCH ×3 (05:51→20:12)
[2017-01-03] MEDS: OMEPRAZOLE 20 MG GT SCH (05:51)
[2017-01-03 07:52] VITALS: BP 112/74
[2017-01-03] MEDS: POLYVINYL ALCOHOL 15 ML BOTTLE EACHEYE SCH ×4 (08:32→20:12)
[2017-01-03] MEDS: AMIODARONE HCL 200 MG TABLET GT SCH (08:33)
[2017-01-03] MEDS: ACIDOPHILUS/BULGARICUS 1 EACH TAB.CHEW GT SCH (08:33)
[2017-01-03] MEDS: POTASSIUM CHLORIDE 20 MEQ/15 ML ML GT SCH (08:34)
[2017-01-03] MEDS: MVI/MINERALS LIQUID (CEROVITE) GT SCH (08:34)
[2017-01-03] MEDS: POLYETHYLENE GLYCOL 3350 17 GM POWD.PACK GT SCH (08:34)
[2017-01-03] MEDS: ASCORBIC ACID 500 MG TABLET GT SCH (08:36)
[2017-01-03] MEDS: HYDROGEN PEROXIDE 480 ML BOTTLE TP SCH ×2 (08:37→20:13)
[2017-01-03] MEDS: ZINC OXIDE 30 GM TUBE TP SCH ×6 (08:37→20:13)
[2017-01-03] MEDS: HEPARIN SODIUM, PORCINE 5000 UNITS/1 ML VIAL SQ SCH ×2 (08:37→20:13)
--- NOTE | 2017-01-03 10:05 | NUR ---
Notified Dr. David of TSH level 0.279 and patient currently receiving Sythroid 150mcg. New order given to change current dose to 125 mcg. Mrs Bradley notified of new order.
[2017-01-03 20:02] VITALS: BP 114/71
[2017-01-03] MEDS: FINASTERIDE (5 MG) 5 MG TABLET GT SCH (20:12)
[2017-01-04] MEDS: ALBUTEROL FS 2.5 MG/3 ML VIAL.NEB NEB SCH ×4 (01:54→19:37)
[2017-01-04] MEDS: IPRATROPIUM NEB FS 0.5 MG/2.5 ML AMPUL.NEB NEB SCH ×4 (01:54→19:37)
[2017-01-04] MEDS: OMEPRAZOLE 20 MG GT SCH (05:31)
[2017-01-04] MEDS: GLYCOPYRROLATE 1 MG TABLET GT SCH ×4 (05:31→23:23)
[2017-01-04] MEDS: BACLOFEN (10 MG) 10 MG TABLET GT SCH ×3 (05:31→21:17)
[2017-01-04] MEDS: LEVOTHYROXINE SODIUM 125 MCG TABLET GT SCH (05:32)
[2017-01-04 07:37] VITALS: BP 116/65
[2017-01-04] MEDS: ZINC OXIDE 30 GM TUBE TP SCH ×6 (09:00→21:18)
[2017-01-04] MEDS: HEPARIN SODIUM, PORCINE 5000 UNITS/1 ML VIAL SQ SCH ×2 (09:00→21:18)
[2017-01-04] MEDS: POLYVINYL ALCOHOL 15 ML BOTTLE EACHEYE SCH ×4 (09:00→21:17)
[2017-01-04] MEDS: AMIODARONE HCL 200 MG TABLET GT SCH (09:00)
[2017-01-04] MEDS: MVI/MINERALS LIQUID (CEROVITE) GT SCH (09:00)
[2017-01-04] MEDS: ACIDOPHILUS/BULGARICUS 1 EACH TAB.CHEW GT SCH (09:00)
[2017-01-04] MEDS: POLYETHYLENE GLYCOL 3350 17 GM POWD.PACK GT SCH (09:00)
[2017-01-04] MEDS: HYDROGEN PEROXIDE 480 ML BOTTLE TP SCH ×2 (09:00→21:18)
[2017-01-04] MEDS: ASCORBIC ACID 500 MG TABLET GT SCH (09:00)
[2017-01-04] MEDS: POTASSIUM CHLORIDE 20 MEQ/15 ML ML GT SCH (09:00)
[2017-01-04] MEDS: RENAL NOVASOURCE 1,000 ML BOTTLE GT PRN (12:39)
[2017-01-04] MEDS: FINASTERIDE (5 MG) 5 MG TABLET GT SCH (20:00)
[2017-01-04 20:24] VITALS: BP 115/63
[2017-01-04] MEDS: MAGNESIUM HYDROXIDE 30 ML UDC GT PRN (23:23)
[2017-01-05] MEDS: ALBUTEROL FS 2.5 MG/3 ML VIAL.NEB NEB SCH ×4 (01:32→20:16)
[2017-01-05] MEDS: IPRATROPIUM NEB FS 0.5 MG/2.5 ML AMPUL.NEB NEB SCH ×4 (01:32→20:16)
[2017-01-05] MEDS: OMEPRAZOLE 20 MG GT SCH (05:14)
[2017-01-05] MEDS: BACLOFEN (10 MG) 10 MG TABLET GT SCH ×3 (05:14→20:07)
[2017-01-05] MEDS: GLYCOPYRROLATE 1 MG TABLET GT SCH ×4 (05:14→23:17)
[2017-01-05] MEDS: LEVOTHYROXINE SODIUM 125 MCG TABLET GT SCH (05:14)
[2017-01-05 07:35] VITALS: BP 111/70
--- NOTE | 2017-01-05 08:26 | NUR ---
Informed that dentist will be coming Sunday and asked her if she wanted to proceed with the cleaning. She stated that yes she would like to proceed with dental cleaning for resident and will be here on Sunday to help him.
[2017-01-05] MEDS: POLYVINYL ALCOHOL 15 ML BOTTLE EACHEYE SCH ×4 (08:58→20:07)
[2017-01-05] MEDS: ACIDOPHILUS/BULGARICUS 1 EACH TAB.CHEW GT SCH (08:59)
[2017-01-05] MEDS: POLYETHYLENE GLYCOL 3350 17 GM POWD.PACK GT SCH (08:59)
[2017-01-05] MEDS: MVI/MINERALS LIQUID (CEROVITE) GT SCH (08:59)
[2017-01-05] MEDS: AMIODARONE HCL 200 MG TABLET GT SCH (08:59)
[2017-01-05] MEDS: POTASSIUM CHLORIDE 20 MEQ/15 ML ML GT SCH (09:00)
[2017-01-05] MEDS: ZINC OXIDE 30 GM TUBE TP SCH ×6 (09:01→20:08)
[2017-01-05] MEDS: HYDROGEN PEROXIDE 480 ML BOTTLE TP SCH ×2 (09:01→20:08)
[2017-01-05] MEDS: ASCORBIC ACID 500 MG TABLET GT SCH (09:01)
[2017-01-05] MEDS: HEPARIN SODIUM, PORCINE 5000 UNITS/1 ML VIAL SQ SCH ×2 (09:04→20:08)
[2017-01-05] MEDS: RENAL NOVASOURCE 1,000 ML BOTTLE GT PRN (17:32)
[2017-01-05 20:05] VITALS: BP 100/57
[2017-01-05] MEDS: FINASTERIDE (5 MG) 5 MG TABLET GT SCH (20:07)
[2017-01-06] MEDS: ALBUTEROL FS 2.5 MG/3 ML VIAL.NEB NEB SCH ×4 (01:34→19:58)
[2017-01-06] MEDS: IPRATROPIUM NEB FS 0.5 MG/2.5 ML AMPUL.NEB NEB SCH ×4 (01:34→19:58)
[2017-01-06] MEDS: LEVOTHYROXINE SODIUM 125 MCG TABLET GT SCH (05:10)
[2017-01-06] MEDS: BACLOFEN (10 MG) 10 MG TABLET GT SCH ×3 (05:10→21:21)
[2017-01-06] MEDS: OMEPRAZOLE 20 MG GT SCH (05:10)
[2017-01-06] MEDS: GLYCOPYRROLATE 1 MG TABLET GT SCH ×4 (05:10→23:21)
[2017-01-06 08:19] VITALS: BP 117/65
[2017-01-06] MEDS: POLYVINYL ALCOHOL 15 ML BOTTLE EACHEYE SCH ×4 (09:00→21:21)
[2017-01-06] MEDS: POTASSIUM CHLORIDE 20 MEQ/15 ML ML GT SCH (09:00)
[2017-01-06] MEDS: ACIDOPHILUS/BULGARICUS 1 EACH TAB.CHEW GT SCH (09:00)
[2017-01-06] MEDS: AMIODARONE HCL 200 MG TABLET GT SCH (09:00)
[2017-01-06] MEDS: POLYETHYLENE GLYCOL 3350 17 GM POWD.PACK GT SCH (09:00)
[2017-01-06] MEDS: MVI/MINERALS LIQUID (CEROVITE) GT SCH (09:00)
[2017-01-06] MEDS: ASCORBIC ACID 500 MG TABLET GT SCH (09:01)
[2017-01-06] MEDS: ZINC OXIDE 30 GM TUBE TP SCH ×6 (09:07→21:22)
[2017-01-06] MEDS: HYDROGEN PEROXIDE 480 ML BOTTLE TP SCH ×2 (09:08→21:21)
[2017-01-06] MEDS: HEPARIN SODIUM, PORCINE 5000 UNITS/1 ML VIAL SQ SCH ×2 (09:08→21:21)
--- NOTE | 2017-01-06 13:28 | NUR ---
Seen and examined by Dr. Paniagua no new order given.
[2017-01-06] MEDS: FINASTERIDE (5 MG) 5 MG TABLET GT SCH (20:00)
--- NOTE | 2017-01-06 20:00 | NUR ---
During rendering care to patient noted right buttock excoriation skin peeled off with a very small amount of bleeding noted. No s/sx of infection noted. Dr. Paniagua made aware to continue current treatment orders of zinc oxide cover with mepilex qshift. Treatment rendered as ordered, tolerated-well. Handled gently during care. No manifestation of pain or discomfort noted. Repositioned for comfort. Kept clean & dry. Good pericare and skin care rendered. aware at the bedside. Will continue to monitor.
[2017-01-06 21:17] VITALS: BP 98/62
[2017-01-06] MEDS: RENAL NOVASOURCE 1,000 ML BOTTLE GT PRN (21:22)
[2017-01-07] MEDS: ALBUTEROL FS 2.5 MG/3 ML VIAL.NEB NEB SCH ×4 (01:23→19:58)
[2017-01-07] MEDS: IPRATROPIUM NEB FS 0.5 MG/2.5 ML AMPUL.NEB NEB SCH ×4 (01:23→19:58)
[2017-01-07] MEDS: LEVOTHYROXINE SODIUM 125 MCG TABLET GT SCH (05:10)
[2017-01-07] MEDS: GLYCOPYRROLATE 1 MG TABLET GT SCH ×4 (05:10→23:16)
[2017-01-07] MEDS: BACLOFEN (10 MG) 10 MG TABLET GT SCH ×3 (05:10→21:03)
[2017-01-07] MEDS: OMEPRAZOLE 20 MG GT SCH (05:10)
[2017-01-07 08:32] VITALS: BP 102/59
[2017-01-07] MEDS: POTASSIUM CHLORIDE 20 MEQ/15 ML ML GT SCH (09:20)
[2017-01-07] MEDS: ACIDOPHILUS/BULGARICUS 1 EACH TAB.CHEW GT SCH (09:20)
[2017-01-07] MEDS: ASCORBIC ACID 500 MG TABLET GT SCH (09:20)
[2017-01-07] MEDS: AMIODARONE HCL 200 MG TABLET GT SCH (09:20)
[2017-01-07] MEDS: POLYETHYLENE GLYCOL 3350 17 GM POWD.PACK GT SCH (09:20)
[2017-01-07] MEDS: MVI/MINERALS LIQUID (CEROVITE) GT SCH (09:20)
[2017-01-07] MEDS: POLYVINYL ALCOHOL 15 ML BOTTLE EACHEYE SCH ×4 (09:20→21:03)
[2017-01-07] MEDS: ERGOCALCIFEROL (VITAMIN D2) 8,000 UNIT/ML GT SCH (09:20)
[2017-01-07] MEDS: ZINC OXIDE 30 GM TUBE TP SCH ×6 (09:21→21:03)
[2017-01-07] MEDS: HYDROGEN PEROXIDE 480 ML BOTTLE TP SCH ×2 (09:21→21:03)
[2017-01-07] MEDS: HEPARIN SODIUM, PORCINE 5000 UNITS/1 ML VIAL SQ SCH ×2 (09:21→21:03)
[2017-01-07 19:31] VITALS: BP 111/77
[2017-01-07] MEDS: FINASTERIDE (5 MG) 5 MG TABLET GT SCH (20:00)
[2017-01-08] MEDS: IPRATROPIUM NEB FS 0.5 MG/2.5 ML AMPUL.NEB NEB SCH ×4 (01:52→19:30)
[2017-01-08] MEDS: ALBUTEROL FS 2.5 MG/3 ML VIAL.NEB NEB SCH ×4 (01:52→19:30)
[2017-01-08] MEDS: BACLOFEN (10 MG) 10 MG TABLET GT SCH ×3 (05:42→20:10)
[2017-01-08] MEDS: GLYCOPYRROLATE 1 MG TABLET GT SCH ×4 (05:42→23:36)
[2017-01-08] MEDS: OMEPRAZOLE 20 MG GT SCH (05:42)
[2017-01-08] MEDS: LEVOTHYROXINE SODIUM 125 MCG TABLET GT SCH (05:42)
[2017-01-08] MEDS: RENAL NOVASOURCE 1,000 ML BOTTLE GT PRN (05:42)
[2017-01-08 07:36] VITALS: BP 116/74
[2017-01-08] MEDS: POLYVINYL ALCOHOL 15 ML BOTTLE EACHEYE SCH ×4 (09:08→20:09)
[2017-01-08] MEDS: POTASSIUM CHLORIDE 20 MEQ/15 ML ML GT SCH (09:09)
[2017-01-08] MEDS: POLYETHYLENE GLYCOL 3350 17 GM POWD.PACK GT SCH (09:09)
[2017-01-08] MEDS: MVI/MINERALS LIQUID (CEROVITE) GT SCH (09:09)
[2017-01-08] MEDS: ACIDOPHILUS/BULGARICUS 1 EACH TAB.CHEW GT SCH (09:09)
[2017-01-08] MEDS: ASCORBIC ACID 500 MG TABLET GT SCH (09:09)
[2017-01-08] MEDS: AMIODARONE HCL 200 MG TABLET GT SCH (09:09)
[2017-01-08] MEDS: HYDROGEN PEROXIDE 480 ML BOTTLE TP SCH ×2 (09:10→20:15)
[2017-01-08] MEDS: HEPARIN SODIUM, PORCINE 5000 UNITS/1 ML VIAL SQ SCH ×2 (09:10→20:10)
[2017-01-08] MEDS: ZINC OXIDE 30 GM TUBE TP SCH ×6 (09:11→20:15)
--- NOTE | 2017-01-08 11:04 | NUR ---
Social Service Section of [facility] (2nd quarter) completed. Resident is uncommunicative. Resident's , Fanny is his conservator and is involved in his care. Discharge to a lower level of care when medically appropriate. visits on a daily basis and feels that he will be a resident of [facility] for the senior living.
[2017-01-08 19:53] VITALS: BP 119/71
[2017-01-08] MEDS: FINASTERIDE (5 MG) 5 MG TABLET GT SCH (20:09)
[2017-01-09] MEDS: IPRATROPIUM NEB FS 0.5 MG/2.5 ML AMPUL.NEB NEB SCH ×4 (02:07→20:18)
[2017-01-09] MEDS: ALBUTEROL FS 2.5 MG/3 ML VIAL.NEB NEB SCH ×4 (02:07→20:19)
[2017-01-09] MEDS: BACLOFEN (10 MG) 10 MG TABLET GT SCH ×3 (05:24→20:07)
[2017-01-09] MEDS: OMEPRAZOLE 20 MG GT SCH (05:24)
[2017-01-09] MEDS: LEVOTHYROXINE SODIUM 125 MCG TABLET GT SCH (05:24)
[2017-01-09] MEDS: GLYCOPYRROLATE 1 MG TABLET GT SCH ×4 (05:24→23:31)
[2017-01-09 07:40] VITALS: BP 105/58
[2017-01-09] MEDS: AMIODARONE HCL 200 MG TABLET GT SCH (09:00)
[2017-01-09] MEDS: ACIDOPHILUS/BULGARICUS 1 EACH TAB.CHEW GT SCH (09:00)
[2017-01-09] MEDS: MVI/MINERALS LIQUID (CEROVITE) GT SCH (09:00)
[2017-01-09] MEDS: HEPARIN SODIUM, PORCINE 5000 UNITS/1 ML VIAL SQ SCH ×2 (09:00→20:07)
[2017-01-09] MEDS: ASCORBIC ACID 500 MG TABLET GT SCH (09:00)
[2017-01-09] MEDS: POLYVINYL ALCOHOL 15 ML BOTTLE EACHEYE SCH ×4 (09:00→20:07)
[2017-01-09] MEDS: HYDROGEN PEROXIDE 480 ML BOTTLE TP SCH ×2 (09:00→20:07)
[2017-01-09] MEDS: ZINC OXIDE 30 GM TUBE TP SCH ×5 (09:00→20:07)
[2017-01-09] MEDS: POLYETHYLENE GLYCOL 3350 17 GM POWD.PACK GT SCH (09:00)
[2017-01-09] MEDS: POTASSIUM CHLORIDE 20 MEQ/15 ML ML GT SCH (09:00)
[2017-01-09 19:42] VITALS: BP 108/61
[2017-01-09] MEDS: FINASTERIDE (5 MG) 5 MG TABLET GT SCH (20:06)
[2017-01-10] MEDS: ALBUTEROL FS 2.5 MG/3 ML VIAL.NEB NEB SCH ×4 (01:40→19:51)
[2017-01-10] MEDS: IPRATROPIUM NEB FS 0.5 MG/2.5 ML AMPUL.NEB NEB SCH ×4 (01:40→19:51)
[2017-01-10] MEDS: LEVOTHYROXINE SODIUM 125 MCG TABLET GT SCH (05:21)
[2017-01-10] MEDS: BACLOFEN (10 MG) 10 MG TABLET GT SCH ×3 (05:21→20:22)
[2017-01-10] MEDS: OMEPRAZOLE 20 MG GT SCH (05:21)
[2017-01-10] MEDS: GLYCOPYRROLATE 1 MG TABLET GT SCH ×4 (05:21→23:09)
[2017-01-10 07:42] VITALS: BP_SYST 113; BP_DIAS 68; BP_DIAS 83
[2017-01-10] MEDS: POLYETHYLENE GLYCOL 3350 17 GM POWD.PACK GT SCH (09:47)
[2017-01-10] MEDS: POLYVINYL ALCOHOL 15 ML BOTTLE EACHEYE SCH ×4 (09:47→20:22)
[2017-01-10] MEDS: ACIDOPHILUS/BULGARICUS 1 EACH TAB.CHEW GT SCH (09:47)
[2017-01-10] MEDS: AMIODARONE HCL 200 MG TABLET GT SCH (09:47)
[2017-01-10] MEDS: ZINC OXIDE 30 GM TUBE TP SCH ×4 (09:49→20:23)
[2017-01-10] MEDS: ASCORBIC ACID 500 MG TABLET GT SCH (09:49)
[2017-01-10] MEDS: POTASSIUM CHLORIDE 20 MEQ/15 ML ML GT SCH (09:49)
[2017-01-10] MEDS: MVI/MINERALS LIQUID (CEROVITE) GT SCH (09:49)
[2017-01-10] MEDS: HYDROGEN PEROXIDE 480 ML BOTTLE TP SCH ×2 (09:49→20:23)
[2017-01-10] MEDS: HEPARIN SODIUM, PORCINE 5000 UNITS/1 ML VIAL SQ SCH ×2 (09:49→20:23)
--- NOTE | 2017-01-10 12:56 | NUR ---
Spoke to resident's to state that pbx repairer was coming and asked if she wanted for him to see resident. She stated that everything was fine with the resident's toe nails and that she takes care of them herself. She refused a pbx repairer visit for the month of January and reported that she has no concerns.
[2017-01-10 20:00] VITALS: BP 128/75
[2017-01-10] MEDS: FINASTERIDE (5 MG) 5 MG TABLET GT SCH (20:21)
--- NOTE | 2017-01-10 22:12 | NUR ---
Pt right buttocks pinkish in color,no open skin noted,no excoriation,maintenance treatment to continue for now.Repositioned q 2hrs and good perineal care rendered.
[2017-01-10] MEDS: RENAL NOVASOURCE 1,000 ML BOTTLE GT PRN (23:09)
[2017-01-11] MEDS: IPRATROPIUM NEB FS 0.5 MG/2.5 ML AMPUL.NEB NEB SCH ×4 (01:44→20:11)
[2017-01-11] MEDS: ALBUTEROL FS 2.5 MG/3 ML VIAL.NEB NEB SCH ×4 (01:44→20:11)
[2017-01-11] MEDS: BACLOFEN (10 MG) 10 MG TABLET GT SCH ×3 (05:07→21:34)
[2017-01-11] MEDS: LEVOTHYROXINE SODIUM 125 MCG TABLET GT SCH (05:07)
[2017-01-11] MEDS: GLYCOPYRROLATE 1 MG TABLET GT SCH ×3 (05:07→18:34)
[2017-01-11] MEDS: OMEPRAZOLE 20 MG GT SCH (05:07)
[2017-01-11] MEDS: HYDROGEN PEROXIDE 480 ML BOTTLE TP SCH ×2 (09:00→21:34)
[2017-01-11] MEDS: AMIODARONE HCL 200 MG TABLET GT SCH (09:00)
[2017-01-11] MEDS: ZINC OXIDE 30 GM TUBE TP SCH ×4 (09:00→21:35)
[2017-01-11] MEDS: ASCORBIC ACID 500 MG TABLET GT SCH (09:00)
[2017-01-11] MEDS: POLYETHYLENE GLYCOL 3350 17 GM POWD.PACK GT SCH (09:00)
[2017-01-11] MEDS: POTASSIUM CHLORIDE 20 MEQ/15 ML ML GT SCH (09:00)
[2017-01-11] MEDS: HEPARIN SODIUM, PORCINE 5000 UNITS/1 ML VIAL SQ SCH ×2 (09:00→21:34)
[2017-01-11] MEDS: ACIDOPHILUS/BULGARICUS 1 EACH TAB.CHEW GT SCH (09:00)
[2017-01-11] MEDS: MVI/MINERALS LIQUID (CEROVITE) GT SCH (09:00)
[2017-01-11] MEDS: POLYVINYL ALCOHOL 15 ML BOTTLE EACHEYE SCH ×4 (09:00→21:34)
--- NOTE | 2017-01-11 15:00 | NUR ---
Seen by Vivian Posada NP with no new order.
[2017-01-11] MEDS: FINASTERIDE (5 MG) 5 MG TABLET GT SCH (20:00)
[2017-01-11 20:06] VITALS: BP 99/64
[2017-01-12] MEDS: GLYCOPYRROLATE 1 MG TABLET GT SCH ×4 (00:48→18:34)
[2017-01-12] MEDS: ALBUTEROL FS 2.5 MG/3 ML VIAL.NEB NEB SCH ×4 (01:10→19:30)
[2017-01-12] MEDS: IPRATROPIUM NEB FS 0.5 MG/2.5 ML AMPUL.NEB NEB SCH ×4 (01:10→20:23)
[2017-01-12] MEDS: OMEPRAZOLE 20 MG GT SCH (05:41)
[2017-01-12] MEDS: BACLOFEN (10 MG) 10 MG TABLET GT SCH ×3 (05:41→21:34)
[2017-01-12] MEDS: LEVOTHYROXINE SODIUM 125 MCG TABLET GT SCH (05:41)
[2017-01-12] MEDS: RENAL NOVASOURCE 1,000 ML BOTTLE GT PRN (05:42)
[2017-01-12] MEDS: ZINC OXIDE 30 GM TUBE TP SCH ×4 (09:00→21:35)
[2017-01-12] MEDS: AMIODARONE HCL 200 MG TABLET GT SCH (09:00)
[2017-01-12] MEDS: POTASSIUM CHLORIDE 20 MEQ/15 ML ML GT SCH (09:00)
[2017-01-12] MEDS: MVI/MINERALS LIQUID (CEROVITE) GT SCH (09:00)
[2017-01-12] MEDS: POLYVINYL ALCOHOL 15 ML BOTTLE EACHEYE SCH ×4 (09:00→21:34)
[2017-01-12] MEDS: POLYETHYLENE GLYCOL 3350 17 GM POWD.PACK GT SCH (09:00)
[2017-01-12] MEDS: HEPARIN SODIUM, PORCINE 5000 UNITS/1 ML VIAL SQ SCH ×2 (09:00→21:35)
[2017-01-12] MEDS: ACIDOPHILUS/BULGARICUS 1 EACH TAB.CHEW GT SCH (09:00)
[2017-01-12] MEDS: HYDROGEN PEROXIDE 480 ML BOTTLE TP SCH ×2 (09:00→21:35)
[2017-01-12] MEDS: ASCORBIC ACID 500 MG TABLET GT SCH (09:00)
[2017-01-12 14:59] VITALS: BP 109/69
[2017-01-12] MEDS: FINASTERIDE (5 MG) 5 MG TABLET GT SCH (20:00)
[2017-01-12 20:02] VITALS: BP 101/70
[2017-01-13] MEDS: GLYCOPYRROLATE 1 MG TABLET GT SCH ×5 (00:31→23:09)
[2017-01-13] MEDS: IPRATROPIUM NEB FS 0.5 MG/2.5 ML AMPUL.NEB NEB SCH ×4 (01:54→19:38)
[2017-01-13] MEDS: ALBUTEROL FS 2.5 MG/3 ML VIAL.NEB NEB SCH ×4 (01:55→19:38)
[2017-01-13] MEDS: LEVOTHYROXINE SODIUM 125 MCG TABLET GT SCH (05:50)
[2017-01-13] MEDS: OMEPRAZOLE 20 MG GT SCH (05:50)
[2017-01-13] MEDS: RENAL NOVASOURCE 1,000 ML BOTTLE GT PRN (05:50)
[2017-01-13] MEDS: BACLOFEN (10 MG) 10 MG TABLET GT SCH ×3 (05:50→20:31)
--- NOTE | 2017-01-13 06:53 | NUR ---
Pt noted with thick yellow greenish secretions,low grade temp of 99.3,no respiratory distress noted.Pt had 3x soft to loose bowel movement,slight redness noted on the buttocks,good perineal care rendered.Will continue to monitor and will endorsed.
[2017-01-13 08:00] VITALS: BP 112/72
[2017-01-13] MEDS: ACETAMINOPHEN 650 MG/20 ML UDC- FOR SA PATIENTS ONLY GT PRN ×2 (08:30→09:06)
[2017-01-13] MEDS: POLYVINYL ALCOHOL 15 ML BOTTLE EACHEYE SCH ×4 (08:43→20:30)
[2017-01-13] MEDS: HEPARIN SODIUM, PORCINE 5000 UNITS/1 ML VIAL SQ SCH ×2 (08:44→20:31)
[2017-01-13] MEDS: ASCORBIC ACID 500 MG TABLET GT SCH (08:44)
[2017-01-13] MEDS: AMIODARONE HCL 200 MG TABLET GT SCH (08:44)
[2017-01-13] MEDS: POTASSIUM CHLORIDE 20 MEQ/15 ML ML GT SCH (08:44)
[2017-01-13] MEDS: MVI/MINERALS LIQUID (CEROVITE) GT SCH (08:44)
[2017-01-13] MEDS: POLYETHYLENE GLYCOL 3350 17 GM POWD.PACK GT SCH (08:44)
[2017-01-13] MEDS: ACIDOPHILUS/BULGARICUS 1 EACH TAB.CHEW GT SCH (08:44)
--- NOTE | 2017-01-13 09:04 | NUR ---
Notified Dr. Baljinder Reeder resident with T 100.7 , 112/72, 95, HR114, RR 21, with thick yellow-greenish secretions, cooling measure provided at this time. New order given to do CBC, stat chest X-ray and sputum cx. Mrs. Bradley notified of patient's change in condition and current order. Appreciated the call.
[2017-01-13 10:25] LABS: BASOPHILS # (AUTO) 0.2 /CMM (0.0-0.2); BASOPHILS % (AUTO) 1.4 % (0.0-2.0); EOSINOPHILS # (AUTO) 0.1 /CMM (0.0-0.7); EOSINOPHILS % (AUTO) 0.7 % (0.0-6.0); HEMATOCRIT 40 % (39-51); HEMOGLOBIN 12.5 g/dL (13.5-17.5); LYMPHOCYTES % (AUTO) 5.7 % (20.0-44.0); MEAN CORPUSCULAR HEMOGLOBIN 24 PG (26.0-33.0); MEAN CORPUSCULAR HGB CONC 32 g/dl (31.0-36.0); MEAN CORPUSCULAR VOLUME 77 fL (80-96); MONOCYTES # (AUTO) 1.6 /CMM (0.1-1.30); MONOCYTES % (AUTO) 9.7 % (2.0-12.0); NEUTROPHILS % (AUTO) 82.5 % (43.0-81.0); PLATELET COUNT (AUTO) 285 /CMM (150-450); RDW COEFFICIENT OF VARIATION 18.9 (11.5-15.0); RED BLOOD CELL COUNT(AUTO) 5.17 MIL/uL (4.5-6.0); WHITE BLOOD COUNT (AUTO) 16.9 K/uL (4.3-11.0)
[2017-01-13 11:02] LABS: BAND % (MANUAL) 5 % (0.0-5.0); EOSINOPHILS % (MANUAL) 2 % (0-4); LYMPHOCYTES % (MANUAL) 5 % (16-48); METAMYELOCYTES % 1 % (0-0); MONOCYTES % (MANUAL) 6 % (0-11.0); MYELOCYTES % 1 % (0-0); NEUTROPHILS % (MANUAL) 80 (42-76)
[2017-01-13] MEDS: HYDROGEN PEROXIDE 480 ML BOTTLE TP SCH ×2 (11:30→20:31)
[2017-01-13] MEDS: ZINC OXIDE 30 GM TUBE TP SCH ×4 (11:30→20:32)
--- NOTE | 2017-01-13 11:55 | NUR ---
Notified Dr. Baljinder Reeder and Dr. David regarding the result of CXY and CBC with WBC of 16.9. Awaiting for orders from either MD. Mrs Kirk visiting made aware of elevated WBC and CXR result.
--- NOTE | 2017-01-13 15:12 | NUR ---
F/C plugged, changed with Fr. 18/10ml connected to BDB, patient tolerated the procedure well. Sterile technique observed. Draining yellow urine, no sediment noted. Current T 97.9.
--- NOTE | 2017-01-13 16:34 | NUR ---
Notified Laurel for ID consult per Baljinder. Informed Laurel of the Chest XRAY result and WBC of 16.9. New order given to give Levaquin IV and Doxycycline IV for 7 days, dx pneumonia. Mrs. Bradley aware of new order.
--- NOTE | 2017-01-13 18:03 | NUR ---
ICU nurse able to insert heplock in the R upper arm G#20 x 1 attempt with good blood return.
--- NOTE | 2017-01-13 18:27 | NUR ---
Notified CARMELITA Solorzano ID that per pharmacy, Levaquin interacts with Amiodarone causing QT prolongation. New order given to DC Levaquin and start patient with Merrem 1000mg. IV Q 12 hours, pharmacy may adjust the dose. Order faxed to [facility] and [facility] pharmacy. Mrs. Bradley notified. Addendum: 01/13/17 at 2007 by JAYSON THOMAS RN CARMELITA Barragan aware of patient's allergy to Cefipime. Endorsed to incoming shift to monitor patient for any reaction.
[2017-01-13 20:11] VITALS: BP 114/70
[2017-01-13] MEDS: FINASTERIDE (5 MG) 5 MG TABLET GT SCH (20:30)
[2017-01-13] MEDS ORDERED: DOXYCYCLINE 100 MG in IV D5W 100 ML IV SCH (21:00)
[2017-01-13] MEDS: MEROPENEM 1 G in IV NS 0.9% 100 ML IV SCH (21:10)
[2017-01-13] MEDS: DOXYCYCLINE 100 MG in IV D5W 100 ML IV SCH (22:08)
--- NOTE | 2017-01-14 01:18 | NUR ---
Seen by Laurel Baptiste Metal Box Maker with orders, Urinalysis and culture, Stool for C -diff,MRSA surveillance carried out.
[2017-01-14] MEDS: IPRATROPIUM NEB FS 0.5 MG/2.5 ML AMPUL.NEB NEB SCH ×4 (01:20→20:04)
[2017-01-14] MEDS: ALBUTEROL FS 2.5 MG/3 ML VIAL.NEB NEB SCH ×4 (01:20→20:04)
[2017-01-14] MEDS: LEVOTHYROXINE SODIUM 125 MCG TABLET GT SCH (05:18)
[2017-01-14] MEDS: OMEPRAZOLE 20 MG GT SCH (05:18)
[2017-01-14] MEDS: GLYCOPYRROLATE 1 MG TABLET GT SCH ×3 (05:18→18:42)
[2017-01-14] MEDS: BACLOFEN (10 MG) 10 MG TABLET GT SCH ×3 (05:18→21:22)
[2017-01-14] MEDS: RENAL NOVASOURCE 1,000 ML BOTTLE GT PRN (05:19)
--- NOTE | 2017-01-14 06:08 | NUR ---
Pt given IV antibiotic of Merrem and Doxycyline as ordered for PNA,no adverse reaction noted.Will continue to monitor.
[2017-01-14 08:32] VITALS: BP 106/66
[2017-01-14] MEDS: MEROPENEM 1 G in IV NS 0.9% 100 ML IV SCH ×2 (08:39→21:26)
[2017-01-14] MEDS: ACIDOPHILUS/BULGARICUS 1 EACH TAB.CHEW GT SCH (09:39)
[2017-01-14] MEDS: AMIODARONE HCL 200 MG TABLET GT SCH (09:39)
[2017-01-14] MEDS: POLYETHYLENE GLYCOL 3350 17 GM POWD.PACK GT SCH (09:39)
[2017-01-14] MEDS: MVI/MINERALS LIQUID (CEROVITE) GT SCH (09:40)
[2017-01-14] MEDS: POTASSIUM CHLORIDE 20 MEQ/15 ML ML GT SCH (09:41)
[2017-01-14] MEDS: ASCORBIC ACID 500 MG TABLET GT SCH (09:41)
[2017-01-14] MEDS: ERGOCALCIFEROL (VITAMIN D2) 8,000 UNIT/ML GT SCH (09:42)
[2017-01-14] MEDS: HEPARIN SODIUM, PORCINE 5000 UNITS/1 ML VIAL SQ SCH ×2 (09:43→21:23)
[2017-01-14] MEDS: ZINC OXIDE 30 GM TUBE TP SCH ×4 (09:43→21:23)
[2017-01-14] MEDS: HYDROGEN PEROXIDE 480 ML BOTTLE TP SCH ×2 (09:43→21:23)
[2017-01-14] MEDS: POLYVINYL ALCOHOL 15 ML BOTTLE EACHEYE SCH ×4 (09:48→21:22)
[2017-01-14] MEDS: DOXYCYCLINE 100 MG in IV D5W 100 ML IV SCH ×2 (09:57→21:26)
--- NOTE | 2017-01-14 11:42 | NUR ---
Merrem and Doxycycline IV ATB were given with no ASE noted no diarrhea, no rashes, no N/V noted. Water flushing given as ordered, tolerated well. Will continue to monitor.
[2017-01-14 13:30] LABS: APPEARANCE,URINE CLOUDY (CLEAR); BILIRUBIN,URINE NEGATIVE (NEGATIVE); BLOOD, URINE 2+ Ery/uL (NEGATIVE); COLOR,URINE YELLOW (YELLOW); KETONES,URINE NEGATIVE (NEGATIVE); LEUKOCYTE ESTERASE ,URINE 3+ (NEGATIVE); NITRITE, URINE POSITIVE (NEGATIVE); PH,URINE 7.5 (5.0-8.0); PROTEIN,URINE NEGATIVE (NEGATIVE); UGLUCOSE NEGATIVE (NEGATIVE); UROBILINOGEN,URINE 0.2 EU/dL (0.2)
[2017-01-14 13:50] LABS: BACTERIA,URINE Moderate /HPF (None Seen); SQUAMOUS EPITHELIAL CELL,UR Few /HPF (None Seen)
[2017-01-14 19:34] VITALS: BP 129/72
[2017-01-14] MEDS: FINASTERIDE (5 MG) 5 MG TABLET GT SCH (20:00)
[2017-01-15] MEDS: GLYCOPYRROLATE 1 MG TABLET GT SCH ×4 (00:44→17:44)
[2017-01-15] MEDS: ALBUTEROL FS 2.5 MG/3 ML VIAL.NEB NEB SCH ×4 (01:46→19:38)
[2017-01-15] MEDS: IPRATROPIUM NEB FS 0.5 MG/2.5 ML AMPUL.NEB NEB SCH ×4 (01:46→19:38)
[2017-01-15] MEDS: OMEPRAZOLE 20 MG GT SCH (05:46)
[2017-01-15] MEDS: LEVOTHYROXINE SODIUM 125 MCG TABLET GT SCH (05:46)
[2017-01-15] MEDS: BACLOFEN (10 MG) 10 MG TABLET GT SCH ×3 (05:46→21:33)
[2017-01-15 08:00] VITALS: BP 112/64
[2017-01-15] MEDS: MEROPENEM 1 G in IV NS 0.9% 100 ML IV SCH ×2 (09:00→21:00)
[2017-01-15] MEDS: POLYVINYL ALCOHOL 15 ML BOTTLE EACHEYE SCH ×4 (09:32→21:33)
[2017-01-15] MEDS: AMIODARONE HCL 200 MG TABLET GT SCH (09:33)
[2017-01-15] MEDS: HEPARIN SODIUM, PORCINE 5000 UNITS/1 ML VIAL SQ SCH ×2 (09:33→21:34)
[2017-01-15] MEDS: ASCORBIC ACID 500 MG TABLET GT SCH (09:33)
[2017-01-15] MEDS: POTASSIUM CHLORIDE 20 MEQ/15 ML ML GT SCH (09:33)
[2017-01-15] MEDS: MVI/MINERALS LIQUID (CEROVITE) GT SCH (09:33)
[2017-01-15] MEDS: POLYETHYLENE GLYCOL 3350 17 GM POWD.PACK GT SCH (09:33)
[2017-01-15] MEDS: ACIDOPHILUS/BULGARICUS 1 EACH TAB.CHEW GT SCH (09:33)
[2017-01-15] MEDS: DOXYCYCLINE 100 MG in IV D5W 100 ML IV SCH ×2 (10:26→22:00)
[2017-01-15] MEDS: ZINC OXIDE 30 GM TUBE TP SCH ×4 (11:30→21:34)
[2017-01-15] MEDS: HYDROGEN PEROXIDE 480 ML BOTTLE TP SCH ×2 (11:30→21:34)
--- NOTE | 2017-01-15 14:15 | NUR ---
[facility] lab called relayed by Scott that patient is positive of stool c diff. Called and relayed results to CARMELITA Ricks with new orders to start FLAGYL 500 mg via Gt q 8 hours x 2 weeks. Placed patient on private room for contact isolation. Called and spoke to patients' and made aware her will be transferred to 271 today. All orders noted and carried out.
--- NOTE | 2017-01-15 15:50 | NUR ---
[facility] lab called again and relayed lab results positive of MRSA to both nares. Relayed lab results to CARMELITA Ricks with new order to start to apply topical bactroban to both nares BID. Patients' also stated " I want my to be back in his old room when he is off isolation". Will endorse to next shift.
[2017-01-15] MEDS: METRONIDAZOLE 500 MG TABLET GT SCH ×2 (15:52→23:30)
[2017-01-15] MEDS: MUPIROCIN OINT 2% 22 GM TUBE TP SCH (16:30)
--- NOTE | 2017-01-15 18:46 | NUR ---
Bactroban oint for bilateral nares due to MRSA has not been delivered, medication not administered yet for 1629. Charge Nurse called pharmacy, according to Jett (pharmacy) medicine will be delivered today at midnight. Will endorsed to next shift for follow-up.
[2017-01-15 19:57] VITALS: BP 92/57
[2017-01-15] MEDS: FINASTERIDE (5 MG) 5 MG TABLET GT SCH (20:00)
[2017-01-16] MEDS: GLYCOPYRROLATE 1 MG TABLET GT SCH ×5 (00:55→23:41)
[2017-01-16] MEDS: IPRATROPIUM NEB FS 0.5 MG/2.5 ML AMPUL.NEB NEB SCH ×4 (01:12→19:30)
[2017-01-16] MEDS: ALBUTEROL FS 2.5 MG/3 ML VIAL.NEB NEB SCH ×4 (01:12→19:30)
[2017-01-16] MEDS: MUPIROCIN OINT 2% 22 GM TUBE TP SCH ×2 (04:30→16:30)
[2017-01-16] MEDS: OMEPRAZOLE 20 MG GT SCH (05:35)
[2017-01-16] MEDS: BACLOFEN (10 MG) 10 MG TABLET GT SCH ×3 (05:35→21:11)
[2017-01-16] MEDS: LEVOTHYROXINE SODIUM 125 MCG TABLET GT SCH (05:35)
[2017-01-16] MEDS: METRONIDAZOLE 500 MG TABLET GT SCH ×3 (07:30→23:41)
[2017-01-16 07:50] VITALS: BP 127/66
[2017-01-16] MEDS: POLYVINYL ALCOHOL 15 ML BOTTLE EACHEYE SCH ×4 (09:02→21:11)
[2017-01-16] MEDS: POTASSIUM CHLORIDE 20 MEQ/15 ML ML GT SCH (09:03)
[2017-01-16] MEDS: MEROPENEM 1 G in IV NS 0.9% 100 ML IV SCH ×2 (09:03→21:00)
[2017-01-16] MEDS: MVI/MINERALS LIQUID (CEROVITE) GT SCH (09:03)
[2017-01-16] MEDS: AMIODARONE HCL 200 MG TABLET GT SCH (09:03)
[2017-01-16] MEDS: HEPARIN SODIUM, PORCINE 5000 UNITS/1 ML VIAL SQ SCH ×2 (09:03→21:12)
[2017-01-16] MEDS: POLYETHYLENE GLYCOL 3350 17 GM POWD.PACK GT SCH (09:03)
[2017-01-16] MEDS: ACIDOPHILUS/BULGARICUS 1 EACH TAB.CHEW GT SCH (09:03)
[2017-01-16] MEDS: ASCORBIC ACID 500 MG TABLET GT SCH (09:03)
--- NOTE | 2017-01-16 10:00 | NUR ---
Seen by Dr David with new order CT chest wo contrast due to sob noted and carried out.Resident Fanny made aware..
[2017-01-16] MEDS: DOXYCYCLINE 100 MG in IV D5W 100 ML IV SCH ×2 (10:53→22:00)
[2017-01-16] MEDS: ZINC OXIDE 30 GM TUBE TP SCH ×4 (12:00→21:12)
[2017-01-16] MEDS: HYDROGEN PEROXIDE 480 ML BOTTLE TP SCH ×2 (12:00→21:12)
[2017-01-16 19:49] VITALS: BP 118/72
[2017-01-16] MEDS: FINASTERIDE (5 MG) 5 MG TABLET GT SCH (20:00)
[2017-01-17] MEDS: IPRATROPIUM NEB FS 0.5 MG/2.5 ML AMPUL.NEB NEB SCH ×4 (02:16→19:41)
[2017-01-17] MEDS: ALBUTEROL FS 2.5 MG/3 ML VIAL.NEB NEB SCH ×4 (02:16→19:41)
[2017-01-17] MEDS: BACLOFEN (10 MG) 10 MG TABLET GT SCH ×3 (05:24→20:56)
[2017-01-17] MEDS: MUPIROCIN OINT 2% 22 GM TUBE TP SCH ×2 (05:24→17:18)
[2017-01-17] MEDS: GLYCOPYRROLATE 1 MG TABLET GT SCH ×3 (05:25→17:18)
[2017-01-17] MEDS: OMEPRAZOLE 20 MG GT SCH (05:25)
[2017-01-17] MEDS: LEVOTHYROXINE SODIUM 125 MCG TABLET GT SCH (05:25)
[2017-01-17] MEDS: METRONIDAZOLE 500 MG TABLET GT SCH ×2 (07:30→15:08)
[2017-01-17 07:42] VITALS: BP 108/67
--- NOTE | 2017-01-17 08:00 | NUR ---
Made a follow-up call with admitting department if authorization has been obtain for CT scan, according to admitting staff their supervisor cutting and boning is not in yet and she will let her know.
[2017-01-17] MEDS: MEROPENEM 1 G in IV NS 0.9% 100 ML IV SCH ×2 (09:00→21:05)
[2017-01-17] MEDS: ACIDOPHILUS/BULGARICUS 1 EACH TAB.CHEW GT SCH (09:15)
[2017-01-17] MEDS: MVI/MINERALS LIQUID (CEROVITE) GT SCH (09:15)
[2017-01-17] MEDS: POLYETHYLENE GLYCOL 3350 17 GM POWD.PACK GT SCH (09:15)
[2017-01-17] MEDS: POLYVINYL ALCOHOL 15 ML BOTTLE EACHEYE SCH ×4 (09:15→20:56)
[2017-01-17] MEDS: POTASSIUM CHLORIDE 20 MEQ/15 ML ML GT SCH (09:16)
[2017-01-17] MEDS: ASCORBIC ACID 500 MG TABLET GT SCH (09:16)
[2017-01-17] MEDS: HYDROGEN PEROXIDE 480 ML BOTTLE TP SCH ×2 (09:17→21:06)
[2017-01-17] MEDS: ZINC OXIDE 30 GM TUBE TP SCH ×4 (09:17→21:07)
[2017-01-17] MEDS: AMIODARONE HCL 200 MG TABLET GT SCH (09:18)
[2017-01-17] MEDS: HEPARIN SODIUM, PORCINE 5000 UNITS/1 ML VIAL SQ SCH ×2 (09:52→21:06)
[2017-01-17] MEDS: DOXYCYCLINE 100 MG in IV D5W 100 ML IV SCH ×2 (10:00→21:57)
--- NOTE | 2017-01-17 10:30 | NUR ---
Another follow-up call made to admitting office regarding authorization for CT scan, supervisor cap and hat production still working on it. Admitting will notify nursing staff once authorization is obtained. Radiology c/o Laurel notified of the delay.
--- NOTE | 2017-01-17 13:41 | NUR ---
[facility] counseling case manager called (Vandana- [phone] ext [phone]) and stated that [facility] is [facility] for [facility]. She stated that form MC262 needs to be mailed back. She gave case number of [id number] and said form was mailed to hospital. parish worker informed resident's and she stated that she was already working on it and that an agency is helping her.
--- NOTE | 2017-01-17 17:35 | NUR ---
Seen and examined by Vivian Posada NP for Dr. David, senior technical support analyst, NNO given. Notified that CT scan not done yet pending authorization from insurance company. Addendum: 01/17/17 at 1840 by JAYSON THOMAS RN Mrs. Bradley also notified that CT scan not done pending authorization from insurance.
[2017-01-17 20:11] VITALS: BP 112/65
[2017-01-17] MEDS: FINASTERIDE (5 MG) 5 MG TABLET GT SCH (20:56)
[2017-01-18] MEDS: GLYCOPYRROLATE 1 MG TABLET GT SCH ×4 (00:05→17:11)
[2017-01-18] MEDS: METRONIDAZOLE 500 MG TABLET GT SCH ×4 (00:05→23:30)
[2017-01-18] MEDS: ALBUTEROL FS 2.5 MG/3 ML VIAL.NEB NEB SCH ×4 (00:52→20:27)
[2017-01-18] MEDS: IPRATROPIUM NEB FS 0.5 MG/2.5 ML AMPUL.NEB NEB SCH ×4 (00:52→20:27)
[2017-01-18] MEDS: MUPIROCIN OINT 2% 22 GM TUBE TP SCH ×2 (04:30→17:11)
[2017-01-18] MEDS: BACLOFEN (10 MG) 10 MG TABLET GT SCH ×3 (05:00→21:49)
[2017-01-18] MEDS: OMEPRAZOLE 20 MG GT SCH (06:02)
[2017-01-18] MEDS: LEVOTHYROXINE SODIUM 125 MCG TABLET GT SCH (06:02)
--- NOTE | 2017-01-18 08:44 | NUR ---
Spoke to the resident's . She say's that the court case was dismissed yesterday and that the children are now only able to visit on Sunday's and Sundays from 10am-6pm only. She noted that they are strictly visitors and cannot receive any information without approval from her. She stated that resident's ex- (Bethany Bradley- can also go by Bethany Muller or Bethany Marlyn) is NOT allowed to visit the resident under any circumstances. She stated that her convenience store manager is working on the paperwork and she will provide copies to the SW when she obtains them. She also stated that the children now have to sign in when they visit and to please provide a notice to the charge nurse and the security station up front. IGOR created a document and provided a copy of the new visitation restrictions to the security station and for the patient's chart. She stated that she will also speak to the director information security up front and to the charge nurse when she comes later today or tomorrow. Charge nurse informed and security informed.
[2017-01-18] MEDS: MEROPENEM 1 G in IV NS 0.9% 100 ML IV SCH ×2 (09:13→21:04)
[2017-01-18] MEDS: POLYVINYL ALCOHOL 15 ML BOTTLE EACHEYE SCH ×4 (09:25→21:49)
[2017-01-18] MEDS: ASCORBIC ACID 500 MG TABLET GT SCH (09:26)
[2017-01-18] MEDS: AMIODARONE HCL 200 MG TABLET GT SCH (09:26)
[2017-01-18] MEDS: POTASSIUM CHLORIDE 20 MEQ/15 ML ML GT SCH (09:26)
[2017-01-18] MEDS: POLYETHYLENE GLYCOL 3350 17 GM POWD.PACK GT SCH (09:26)
[2017-01-18] MEDS: ACIDOPHILUS/BULGARICUS 1 EACH TAB.CHEW GT SCH (09:26)
[2017-01-18] MEDS: MVI/MINERALS LIQUID (CEROVITE) GT SCH (09:26)
[2017-01-18] MEDS: ZINC OXIDE 30 GM TUBE TP SCH ×4 (09:27→21:50)
[2017-01-18] MEDS: HYDROGEN PEROXIDE 480 ML BOTTLE TP SCH ×2 (09:27→21:49)
[2017-01-18] MEDS: HEPARIN SODIUM, PORCINE 5000 UNITS/1 ML VIAL SQ SCH ×2 (09:27→21:49)
[2017-01-18] MEDS: DOXYCYCLINE 100 MG in IV D5W 100 ML IV SCH ×2 (10:09→22:00)
--- NOTE | 2017-01-18 18:09 | NUR ---
Seen and examined by Dr. Paniagua with NNO. aware about patient on Isolation for C-diff and receiving IV and PO atb.
[2017-01-18 19:59] VITALS: BP 133/70
[2017-01-18] MEDS: FINASTERIDE (5 MG) 5 MG TABLET GT SCH (20:00)
[2017-01-19] MEDS: GLYCOPYRROLATE 1 MG TABLET GT SCH ×5 (00:55→23:37)
[2017-01-19] MEDS: IPRATROPIUM NEB FS 0.5 MG/2.5 ML AMPUL.NEB NEB SCH ×4 (01:35→19:35)
[2017-01-19] MEDS: ALBUTEROL FS 2.5 MG/3 ML VIAL.NEB NEB SCH ×4 (01:35→19:35)
[2017-01-19] MEDS: RENAL NOVASOURCE 1,000 ML BOTTLE GT PRN (01:39)
[2017-01-19] MEDS: MUPIROCIN OINT 2% 22 GM TUBE TP SCH ×3 (04:48→21:30)
[2017-01-19] MEDS: MAGNESIUM HYDROXIDE 30 ML UDC GT PRN ×2 (04:59→21:48)
[2017-01-19] MEDS: BACLOFEN (10 MG) 10 MG TABLET GT SCH ×3 (05:00→21:30)
[2017-01-19] MEDS: LEVOTHYROXINE SODIUM 125 MCG TABLET GT SCH (06:21)
[2017-01-19] MEDS: OMEPRAZOLE 20 MG GT SCH (06:21)
[2017-01-19] MEDS: METRONIDAZOLE 500 MG TABLET GT SCH ×3 (07:30→23:37)
[2017-01-19 08:00] VITALS: BP 125/71
[2017-01-19] MEDS: MVI/MINERALS LIQUID (CEROVITE) GT SCH (08:43)
[2017-01-19] MEDS: AMIODARONE HCL 200 MG TABLET GT SCH (08:43)
[2017-01-19] MEDS: POTASSIUM CHLORIDE 20 MEQ/15 ML ML GT SCH (08:43)
[2017-01-19] MEDS: ACIDOPHILUS/BULGARICUS 1 EACH TAB.CHEW GT SCH (08:43)
[2017-01-19] MEDS: POLYETHYLENE GLYCOL 3350 17 GM POWD.PACK GT SCH (08:43)
[2017-01-19] MEDS: ASCORBIC ACID 500 MG TABLET GT SCH (08:43)
[2017-01-19] MEDS: POLYVINYL ALCOHOL 15 ML BOTTLE EACHEYE SCH ×4 (08:43→21:30)
[2017-01-19] MEDS: HEPARIN SODIUM, PORCINE 5000 UNITS/1 ML VIAL SQ SCH ×2 (08:44→21:30)
[2017-01-19] MEDS: ZINC OXIDE 30 GM TUBE TP SCH ×4 (08:44→21:30)
[2017-01-19] MEDS: HYDROGEN PEROXIDE 480 ML BOTTLE TP SCH ×2 (08:44→21:30)
[2017-01-19] MEDS: MEROPENEM 1 G in IV NS 0.9% 100 ML IV SCH ×2 (09:33→21:17)
[2017-01-19] MEDS: DOXYCYCLINE 100 MG in IV D5W 100 ML IV SCH ×2 (10:50→22:00)
--- NOTE | 2017-01-19 19:00 | NUR ---
IDT meeting held, reviewed medications, labs and plan of care. Family did not attend the meeting but updated her of new order such as discontinuation of Sorbitol. stated " That's why I don't attend the meeting because you guys let me know anyway". CARMELITA Ricks ID reviewed labs and culture result with new order and clarified topical Bactroban x 14 days and to use Hibeclens for MRSA decolonization. Orders noted and carried out.
[2017-01-19] MEDS: FINASTERIDE (5 MG) 5 MG TABLET GT SCH (20:00)
[2017-01-19 20:02] VITALS: BP 111/71
[2017-01-20] MEDS: IPRATROPIUM NEB FS 0.5 MG/2.5 ML AMPUL.NEB NEB SCH ×4 (00:45→18:59)
[2017-01-20] MEDS: ALBUTEROL FS 2.5 MG/3 ML VIAL.NEB NEB SCH ×4 (00:45→18:59)
[2017-01-20] MEDS: BACLOFEN (10 MG) 10 MG TABLET GT SCH ×3 (05:00→21:32)
[2017-01-20] MEDS: GLYCOPYRROLATE 1 MG TABLET GT SCH ×3 (06:03→16:50)
[2017-01-20] MEDS: OMEPRAZOLE 20 MG GT SCH (06:03)
[2017-01-20] MEDS: LEVOTHYROXINE SODIUM 125 MCG TABLET GT SCH (06:03)
[2017-01-20] MEDS: RENAL NOVASOURCE 1,000 ML BOTTLE GT PRN (06:14)
[2017-01-20] MEDS: METRONIDAZOLE 500 MG TABLET GT SCH ×3 (08:20→23:30)
[2017-01-20] MEDS: MUPIROCIN OINT 2% 22 GM TUBE TP SCH ×2 (08:21→21:33)
[2017-01-20] MEDS: ASCORBIC ACID 500 MG TABLET GT SCH (08:21)
[2017-01-20] MEDS: POLYVINYL ALCOHOL 15 ML BOTTLE EACHEYE SCH ×4 (08:21→21:32)
[2017-01-20] MEDS: POTASSIUM CHLORIDE 20 MEQ/15 ML ML GT SCH (08:21)
[2017-01-20] MEDS: MVI/MINERALS LIQUID (CEROVITE) GT SCH (08:21)
[2017-01-20] MEDS: ACIDOPHILUS/BULGARICUS 1 EACH TAB.CHEW GT SCH (08:21)
[2017-01-20] MEDS: POLYETHYLENE GLYCOL 3350 17 GM POWD.PACK GT SCH (08:21)
[2017-01-20] MEDS: MEROPENEM 1 G in IV NS 0.9% 100 ML IV SCH ×2 (08:28→21:00)
[2017-01-20] MEDS: AMIODARONE HCL 200 MG TABLET GT SCH (08:36)
[2017-01-20] MEDS: ZINC OXIDE 30 GM TUBE TP SCH ×4 (08:37→21:33)
[2017-01-20] MEDS: HEPARIN SODIUM, PORCINE 5000 UNITS/1 ML VIAL SQ SCH ×2 (08:37→21:32)
[2017-01-20] MEDS: HYDROGEN PEROXIDE 480 ML BOTTLE TP SCH ×2 (08:37→21:33)
[2017-01-20] MEDS: CHLORHEXIDINE GLUCONATE 4% 118 ML BOTTLE TP SCH (09:00)
[2017-01-20] MEDS: DOXYCYCLINE 100 MG in IV D5W 100 ML IV SCH ×2 (10:23→22:00)
[2017-01-20 15:54] VITALS: BP 104/72
[2017-01-20 19:57] VITALS: BP 108/57
[2017-01-20] MEDS: FINASTERIDE (5 MG) 5 MG TABLET GT SCH (20:00)
[2017-01-21] MEDS: GLYCOPYRROLATE 1 MG TABLET GT SCH ×5 (00:49→23:16)
[2017-01-21] MEDS: IPRATROPIUM NEB FS 0.5 MG/2.5 ML AMPUL.NEB NEB SCH ×4 (01:10→19:55)
[2017-01-21] MEDS: ALBUTEROL FS 2.5 MG/3 ML VIAL.NEB NEB SCH ×4 (01:10→19:55)
[2017-01-21] MEDS: LEVOTHYROXINE SODIUM 125 MCG TABLET GT SCH (05:40)
[2017-01-21] MEDS: BACLOFEN (10 MG) 10 MG TABLET GT SCH ×3 (05:40→20:48)
[2017-01-21] MEDS: OMEPRAZOLE 20 MG GT SCH (05:40)
[2017-01-21] MEDS: RENAL NOVASOURCE 1,000 ML BOTTLE GT PRN (05:41)
[2017-01-21] MEDS: METRONIDAZOLE 500 MG TABLET GT SCH ×3 (07:30→23:16)
[2017-01-21 08:29] VITALS: BP 110/81
[2017-01-21] MEDS: ZINC OXIDE 30 GM TUBE TP SCH ×4 (09:00→20:49)
[2017-01-21] MEDS: CHLORHEXIDINE GLUCONATE 4% 118 ML BOTTLE TP SCH (09:00)
[2017-01-21] MEDS: HYDROGEN PEROXIDE 480 ML BOTTLE TP SCH ×2 (09:00→20:48)
[2017-01-21] MEDS: MUPIROCIN OINT 2% 22 GM TUBE TP SCH ×2 (09:00→20:48)
[2017-01-21] MEDS: ACIDOPHILUS/BULGARICUS 1 EACH TAB.CHEW GT SCH (09:54)
[2017-01-21] MEDS: MVI/MINERALS LIQUID (CEROVITE) GT SCH (09:54)
[2017-01-21] MEDS: AMIODARONE HCL 200 MG TABLET GT SCH (09:54)
[2017-01-21] MEDS: ERGOCALCIFEROL (VITAMIN D2) 8,000 UNIT/ML GT SCH (09:54)
[2017-01-21] MEDS: POLYVINYL ALCOHOL 15 ML BOTTLE EACHEYE SCH ×4 (09:54→20:48)
[2017-01-21] MEDS: POLYETHYLENE GLYCOL 3350 17 GM POWD.PACK GT SCH (09:54)
[2017-01-21] MEDS: ASCORBIC ACID 500 MG TABLET GT SCH (09:54)
[2017-01-21] MEDS: POTASSIUM CHLORIDE 20 MEQ/15 ML ML GT SCH (09:54)
[2017-01-21] MEDS: HEPARIN SODIUM, PORCINE 5000 UNITS/1 ML VIAL SQ SCH ×2 (09:55→20:48)
--- NOTE | 2017-01-21 11:35 | NUR ---
Received a call from Radiology Department spoke to Trey regarding CT chest without contrast informed him that new account still pending and authorization still pending from patient insurance. Will continue to follow-up from admitting department.
[2017-01-21 13:23] VITALS: BP 111/68
[2017-01-21 19:56] VITALS: BP 83/55
[2017-01-21] MEDS: FINASTERIDE (5 MG) 5 MG TABLET GT SCH (20:48)
[2017-01-22] MEDS: ALBUTEROL FS 2.5 MG/3 ML VIAL.NEB NEB SCH ×4 (00:09→19:30)
[2017-01-22] MEDS: IPRATROPIUM NEB FS 0.5 MG/2.5 ML AMPUL.NEB NEB SCH ×4 (00:09→19:30)
[2017-01-22] MEDS: BACLOFEN (10 MG) 10 MG TABLET GT SCH ×3 (05:41→20:40)
[2017-01-22] MEDS: GLYCOPYRROLATE 1 MG TABLET GT SCH ×3 (05:41→18:03)
[2017-01-22] MEDS: LEVOTHYROXINE SODIUM 125 MCG TABLET GT SCH (05:41)
[2017-01-22] MEDS: OMEPRAZOLE 20 MG GT SCH (05:41)
[2017-01-22] MEDS: METRONIDAZOLE 500 MG TABLET GT SCH ×2 (07:30→15:30)
[2017-01-22 08:25] VITALS: BP 103/74
[2017-01-22] MEDS: MVI/MINERALS LIQUID (CEROVITE) GT SCH (09:19)
[2017-01-22] MEDS: ACIDOPHILUS/BULGARICUS 1 EACH TAB.CHEW GT SCH (09:19)
[2017-01-22] MEDS: MUPIROCIN OINT 2% 22 GM TUBE TP SCH ×2 (09:19→20:41)
[2017-01-22] MEDS: CHLORHEXIDINE GLUCONATE 4% 118 ML BOTTLE TP SCH (09:19)
[2017-01-22] MEDS: AMIODARONE HCL 200 MG TABLET GT SCH (09:19)
[2017-01-22] MEDS: POTASSIUM CHLORIDE 20 MEQ/15 ML ML GT SCH (09:19)
[2017-01-22] MEDS: POLYVINYL ALCOHOL 15 ML BOTTLE EACHEYE SCH ×4 (09:19→20:40)
[2017-01-22] MEDS: ASCORBIC ACID 500 MG TABLET GT SCH (09:19)
[2017-01-22] MEDS: HEPARIN SODIUM, PORCINE 5000 UNITS/1 ML VIAL SQ SCH ×2 (09:19→20:40)
[2017-01-22] MEDS: POLYETHYLENE GLYCOL 3350 17 GM POWD.PACK GT SCH (09:19)
[2017-01-22] MEDS: ZINC OXIDE 30 GM TUBE TP SCH ×4 (09:20→20:41)
[2017-01-22] MEDS: HYDROGEN PEROXIDE 480 ML BOTTLE TP SCH ×2 (09:20→20:41)
[2017-01-22 19:35] VITALS: BP 104/66
[2017-01-22] MEDS: FINASTERIDE (5 MG) 5 MG TABLET GT SCH (20:40)
[2017-01-23] MEDS: METRONIDAZOLE 500 MG TABLET GT SCH ×4 (00:11→23:56)
[2017-01-23] MEDS: GLYCOPYRROLATE 1 MG TABLET GT SCH ×5 (00:11→23:56)
[2017-01-23] MEDS: ALBUTEROL FS 2.5 MG/3 ML VIAL.NEB NEB SCH ×4 (02:18→19:58)
[2017-01-23] MEDS: IPRATROPIUM NEB FS 0.5 MG/2.5 ML AMPUL.NEB NEB SCH ×4 (02:18→19:58)
[2017-01-23] MEDS: OMEPRAZOLE 20 MG GT SCH (05:31)
[2017-01-23] MEDS: BACLOFEN (10 MG) 10 MG TABLET GT SCH ×3 (05:31→20:20)
[2017-01-23] MEDS: LEVOTHYROXINE SODIUM 125 MCG TABLET GT SCH (05:31)
[2017-01-23 08:20] VITALS: BP 107/76
[2017-01-23] MEDS: MVI/MINERALS LIQUID (CEROVITE) GT SCH (09:40)
[2017-01-23] MEDS: ASCORBIC ACID 500 MG TABLET GT SCH (09:40)
[2017-01-23] MEDS: POLYETHYLENE GLYCOL 3350 17 GM POWD.PACK GT SCH (09:40)
[2017-01-23] MEDS: POTASSIUM CHLORIDE 20 MEQ/15 ML ML GT SCH (09:40)
[2017-01-23] MEDS: AMIODARONE HCL 200 MG TABLET GT SCH (09:40)
[2017-01-23] MEDS: POLYVINYL ALCOHOL 15 ML BOTTLE EACHEYE SCH ×4 (09:40→20:19)
[2017-01-23] MEDS: ACIDOPHILUS/BULGARICUS 1 EACH TAB.CHEW GT SCH (09:40)
[2017-01-23] MEDS: HEPARIN SODIUM, PORCINE 5000 UNITS/1 ML VIAL SQ SCH ×2 (09:41→20:20)
[2017-01-23] MEDS: ZINC OXIDE 30 GM TUBE TP SCH ×4 (09:41→20:21)
[2017-01-23] MEDS: MUPIROCIN OINT 2% 22 GM TUBE TP SCH ×2 (09:41→20:21)
[2017-01-23] MEDS: HYDROGEN PEROXIDE 480 ML BOTTLE TP SCH ×2 (09:41→20:21)
[2017-01-23] MEDS: CHLORHEXIDINE GLUCONATE 4% 118 ML BOTTLE TP SCH (09:41)
--- NOTE | 2017-01-23 10:10 | NUR ---
Seen and examined by Dr David with no new order.
--- NOTE | 2017-01-23 11:00 | NUR ---
Dr David order to DC Polyethylene Glycol (Miralax) due to pt episode of on and off loose stool noted and carried out.Resident made aware.
--- NOTE | 2017-01-23 12:19 | NUR ---
Resident's brought a copy of letters of conservatorship paperwork for the SW. Second page indicates that there have been no changes for conservator ppwk dated 06/26/2014 and that remains the conservator of the person. Form was signed by the deputy and with seal of the [place] of [place] dated 11/29/2016. Copy was placed in the resident's chart.
[2017-01-23 19:40] VITALS: BP 85/52
[2017-01-23] MEDS: LORAZEPAM 0.5 MG TABLET GT PRN (20:06)
[2017-01-23] MEDS: FINASTERIDE (5 MG) 5 MG TABLET GT SCH (20:19)
[2017-01-24] MEDS: ALBUTEROL FS 2.5 MG/3 ML VIAL.NEB NEB SCH ×4 (01:30→20:21)
[2017-01-24] MEDS: IPRATROPIUM NEB FS 0.5 MG/2.5 ML AMPUL.NEB NEB SCH ×4 (01:30→20:21)
[2017-01-24] MEDS: GLYCOPYRROLATE 1 MG TABLET GT SCH ×4 (05:49→23:55)
[2017-01-24] MEDS: BACLOFEN (10 MG) 10 MG TABLET GT SCH ×3 (05:49→21:18)
[2017-01-24] MEDS: OMEPRAZOLE 20 MG GT SCH (05:50)
[2017-01-24] MEDS: LEVOTHYROXINE SODIUM 125 MCG TABLET GT SCH (05:50)
[2017-01-24] MEDS: METRONIDAZOLE 500 MG TABLET GT SCH ×3 (07:30→23:55)
[2017-01-24 08:08] VITALS: BP 116/56
[2017-01-24] MEDS: HYDROGEN PEROXIDE 480 ML BOTTLE TP SCH ×2 (09:00→21:19)
[2017-01-24] MEDS: POLYVINYL ALCOHOL 15 ML BOTTLE EACHEYE SCH ×4 (09:00→21:18)
[2017-01-24] MEDS: HEPARIN SODIUM, PORCINE 5000 UNITS/1 ML VIAL SQ SCH ×2 (09:00→21:19)
[2017-01-24] MEDS: MVI/MINERALS LIQUID (CEROVITE) GT SCH (09:00)
[2017-01-24] MEDS: POTASSIUM CHLORIDE 20 MEQ/15 ML ML GT SCH (09:00)
[2017-01-24] MEDS: MUPIROCIN OINT 2% 22 GM TUBE TP SCH ×2 (09:00→21:19)
[2017-01-24] MEDS: ACIDOPHILUS/BULGARICUS 1 EACH TAB.CHEW GT SCH (09:00)
[2017-01-24] MEDS: AMIODARONE HCL 200 MG TABLET GT SCH (09:00)
[2017-01-24] MEDS: ZINC OXIDE 30 GM TUBE TP SCH ×4 (09:00→21:19)
[2017-01-24] MEDS: ASCORBIC ACID 500 MG TABLET GT SCH (09:00)
[2017-01-24] MEDS: CHLORHEXIDINE GLUCONATE 4% 118 ML BOTTLE TP SCH (09:00)
--- NOTE | 2017-01-24 18:44 | NUR ---
NO 7A-7P.CONTINUE TO MONITOR ANY UNTOWARD CHANGES.
[2017-01-24] MEDS: FINASTERIDE (5 MG) 5 MG TABLET GT SCH (20:00)
[2017-01-24 20:03] VITALS: BP 117/75
[2017-01-24] MEDS: LORAZEPAM 0.5 MG TABLET GT PRN (23:59)
[2017-01-25] MEDS: ALBUTEROL FS 2.5 MG/3 ML VIAL.NEB NEB SCH ×4 (01:50→19:44)
[2017-01-25] MEDS: IPRATROPIUM NEB FS 0.5 MG/2.5 ML AMPUL.NEB NEB SCH ×4 (01:50→19:44)
[2017-01-25] MEDS: GLYCOPYRROLATE 1 MG TABLET GT SCH ×4 (05:10→23:16)
[2017-01-25] MEDS: LEVOTHYROXINE SODIUM 125 MCG TABLET GT SCH (05:10)
[2017-01-25] MEDS: OMEPRAZOLE 20 MG GT SCH (05:10)
[2017-01-25] MEDS: BACLOFEN (10 MG) 10 MG TABLET GT SCH ×3 (05:10→20:24)
[2017-01-25] MEDS: RENAL NOVASOURCE 1,000 ML BOTTLE GT PRN (05:10)
--- NOTE | 2017-01-25 06:12 | NUR ---
NO EPISODE OF DIARRHEA NOTED DURING 7P-7A SHIFT. EPISODE OF MYOCLONIC SZ X 1 NOTED LAST NIGHT, PRN ATIVAN VIA GT GIVEN AND WAS EFFECTIVE, RESIDENT SLEPT GOOD AFTER. URINE OUTPUT 950 CC. 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 TOLERATED MEDS, GTF, AND WATER FLUSHES. COMPLETED AND TOLERATED PM/AM CARE, SZ PRECAUTIONS OBSERVED, PADDED SR'S X 4 , HOB ELEVATED, CL WITHIN REACH.
[2017-01-25] MEDS: METRONIDAZOLE 500 MG TABLET GT SCH ×3 (06:35→23:16)
[2017-01-25 07:35] LABS: BASOPHILS % (AUTO) 0.1 % (0.0-2.0); EOSINOPHILS # (AUTO) 0.2 /CMM (0.0-0.7); EOSINOPHILS % (AUTO) 1.1 % (0.0-6.0); HEMATOCRIT 37 % (39-51); HEMOGLOBIN 11.4 g/dL (13.5-17.5); LYMPHOCYTES % (AUTO) 7.6 % (20.0-44.0); MEAN CORPUSCULAR HEMOGLOBIN 24 PG (26.0-33.0); MEAN CORPUSCULAR HGB CONC 31 g/dl (31.0-36.0); MEAN CORPUSCULAR VOLUME 77 fL (80-96); MONOCYTES # (AUTO) 1.4 /CMM (0.1-1.30); MONOCYTES % (AUTO) 10.6 % (2.0-12.0); NEUTROPHILS # (AUTO) 10.9 /CMM (1.8-8.9); NEUTROPHILS % (AUTO) 80.6 % (43.0-81.0); PLATELET COUNT (AUTO) 247 /CMM (150-450); RDW COEFFICIENT OF VARIATION 18.8 (11.5-15.0); RED BLOOD CELL COUNT(AUTO) 4.73 MIL/uL (4.5-6.0); WHITE BLOOD COUNT (AUTO) 13.5 K/uL (4.3-11.0)
[2017-01-25 07:37] VITALS: BP 96/62
[2017-01-25] MEDS: ASCORBIC ACID 500 MG TABLET GT SCH (08:47)
[2017-01-25] MEDS: AMIODARONE HCL 200 MG TABLET GT SCH (08:47)
[2017-01-25] MEDS: ACIDOPHILUS/BULGARICUS 1 EACH TAB.CHEW GT SCH (08:47)
[2017-01-25] MEDS: POTASSIUM CHLORIDE 20 MEQ/15 ML ML GT SCH (08:47)
[2017-01-25] MEDS: POLYVINYL ALCOHOL 15 ML BOTTLE EACHEYE SCH ×4 (08:47→20:24)
[2017-01-25] MEDS: MVI/MINERALS LIQUID (CEROVITE) GT SCH (08:47)
[2017-01-25] MEDS: CHLORHEXIDINE GLUCONATE 4% 118 ML BOTTLE TP SCH (08:48)
[2017-01-25] MEDS: HEPARIN SODIUM, PORCINE 5000 UNITS/1 ML VIAL SQ SCH ×2 (08:48→20:24)
[2017-01-25] MEDS: MUPIROCIN OINT 2% 22 GM TUBE TP SCH ×2 (08:48→20:24)
[2017-01-25] MEDS: ZINC OXIDE 30 GM TUBE TP SCH ×4 (08:49→20:25)
[2017-01-25] MEDS: HYDROGEN PEROXIDE 480 ML BOTTLE TP SCH ×2 (08:49→20:24)
--- NOTE | 2017-01-25 14:30 | NUR ---
CBC result seen by CARMELITA Posada. No new order.
--- NOTE | 2017-01-25 18:45 | NUR ---
Monitoring for bowel movement - no bowel movement noted at this time, resident still on Flagyl 500 mg every 8 hours for C diff.
--- NOTE | 2017-01-25 19:25 | NUR ---
No episode of diarrhea noted this shift.
[2017-01-25] MEDS: FINASTERIDE (5 MG) 5 MG TABLET GT SCH (20:24)
[2017-01-25 22:12] VITALS: BP 97/57
[2017-01-26] MEDS: IPRATROPIUM NEB FS 0.5 MG/2.5 ML AMPUL.NEB NEB SCH ×4 (01:25→19:29)
[2017-01-26] MEDS: ALBUTEROL FS 2.5 MG/3 ML VIAL.NEB NEB SCH ×4 (01:25→19:29)
[2017-01-26] MEDS: GLYCOPYRROLATE 1 MG TABLET GT SCH ×4 (05:15→23:23)
[2017-01-26] MEDS: BACLOFEN (10 MG) 10 MG TABLET GT SCH ×3 (05:15→20:24)
[2017-01-26] MEDS: OMEPRAZOLE 20 MG GT SCH (05:16)
[2017-01-26] MEDS: LEVOTHYROXINE SODIUM 125 MCG TABLET GT SCH (05:16)
[2017-01-26] MEDS: MAGNESIUM HYDROXIDE 30 ML UDC GT PRN (05:17)
[2017-01-26] MEDS: RENAL NOVASOURCE 1,000 ML BOTTLE GT PRN (05:17)
[2017-01-26] MEDS: METRONIDAZOLE 500 MG TABLET GT SCH ×3 (07:30→23:23)
[2017-01-26 07:32] VITALS: BP 116/74
[2017-01-26] MEDS: POTASSIUM CHLORIDE 20 MEQ/15 ML ML GT SCH (09:00)
[2017-01-26] MEDS: AMIODARONE HCL 200 MG TABLET GT SCH (09:00)
[2017-01-26] MEDS: ASCORBIC ACID 500 MG TABLET GT SCH (09:00)
[2017-01-26] MEDS: HEPARIN SODIUM, PORCINE 5000 UNITS/1 ML VIAL SQ SCH ×2 (09:00→20:25)
[2017-01-26] MEDS: MVI/MINERALS LIQUID (CEROVITE) GT SCH (09:00)
[2017-01-26] MEDS: ZINC OXIDE 30 GM TUBE TP SCH ×4 (09:00→20:25)
[2017-01-26] MEDS: CHLORHEXIDINE GLUCONATE 4% 118 ML BOTTLE TP SCH (09:00)
[2017-01-26] MEDS: ACIDOPHILUS/BULGARICUS 1 EACH TAB.CHEW GT SCH (09:00)
[2017-01-26] MEDS: POLYVINYL ALCOHOL 15 ML BOTTLE EACHEYE SCH ×4 (09:00→20:24)
[2017-01-26] MEDS: MUPIROCIN OINT 2% 22 GM TUBE TP SCH ×2 (09:00→20:25)
[2017-01-26] MEDS: HYDROGEN PEROXIDE 480 ML BOTTLE TP SCH ×2 (09:00→20:25)
--- NOTE | 2017-01-26 18:30 | NUR ---
Authorization for CT scan has been approved per labor crew supervisor, outpatient account requested. Endorsed to incoming shift to notify radiology once outpatient account is created.
[2017-01-26] MEDS: BISACODYL SUPP (10 MG) 10 MG/SUPP.RECT SUPP.RECT RC PRN (18:35)
--- NOTE | 2017-01-26 18:49 | NUR ---
Monitoring for bowel movement - no bowel movement noted at this time x 3days, milk of mangesia was given as ordered early in the morning but ineffective at this time, Bisacodyl 10 mg suppository via rectum given as ordered, resident still on Flagyl 500 mg every 8 hours for C diff.
[2017-01-26 19:34] VITALS: BP 101/54
[2017-01-26] MEDS: FINASTERIDE (5 MG) 5 MG TABLET GT SCH (20:24)
[2017-01-27] MEDS: IPRATROPIUM NEB FS 0.5 MG/2.5 ML AMPUL.NEB NEB SCH ×4 (01:25→19:36)
[2017-01-27] MEDS: ALBUTEROL FS 2.5 MG/3 ML VIAL.NEB NEB SCH ×4 (01:25→19:36)
[2017-01-27] MEDS: LEVOTHYROXINE SODIUM 125 MCG TABLET GT SCH (05:27)
[2017-01-27] MEDS: GLYCOPYRROLATE 1 MG TABLET GT SCH ×4 (05:27→23:17)
[2017-01-27] MEDS: OMEPRAZOLE 20 MG GT SCH (05:27)
[2017-01-27] MEDS: BACLOFEN (10 MG) 10 MG TABLET GT SCH ×3 (05:27→20:26)
[2017-01-27] MEDS: RENAL NOVASOURCE 1,000 ML BOTTLE GT PRN (05:27)
[2017-01-27] MEDS: MAGNESIUM HYDROXIDE 30 ML UDC GT PRN (05:27)
[2017-01-27] MEDS: METRONIDAZOLE 500 MG TABLET GT SCH ×3 (06:36→23:17)
[2017-01-27 07:35] VITALS: BP 103/63
--- NOTE | 2017-01-27 09:00 | NUR ---
Resident taken for CT scan of the lungs and returned back to the floor in stable condition.
[2017-01-27] MEDS: POLYVINYL ALCOHOL 15 ML BOTTLE EACHEYE SCH ×4 (09:05→20:26)
[2017-01-27] MEDS: ACIDOPHILUS/BULGARICUS 1 EACH TAB.CHEW GT SCH (09:06)
[2017-01-27] MEDS: AMIODARONE HCL 200 MG TABLET GT SCH (09:06)
[2017-01-27] MEDS: MVI/MINERALS LIQUID (CEROVITE) GT SCH (09:06)
[2017-01-27] MEDS: POTASSIUM CHLORIDE 20 MEQ/15 ML ML GT SCH (09:07)
[2017-01-27] MEDS: ASCORBIC ACID 500 MG TABLET GT SCH (09:07)
[2017-01-27] MEDS: MUPIROCIN OINT 2% 22 GM TUBE TP SCH ×2 (09:08→20:27)
[2017-01-27] MEDS: CHLORHEXIDINE GLUCONATE 4% 118 ML BOTTLE TP SCH (09:08)
[2017-01-27] MEDS: HYDROGEN PEROXIDE 480 ML BOTTLE TP SCH ×2 (09:08→20:27)
[2017-01-27] MEDS: ZINC OXIDE 30 GM TUBE TP SCH ×4 (09:08→20:27)
[2017-01-27] MEDS: HEPARIN SODIUM, PORCINE 5000 UNITS/1 ML VIAL SQ SCH ×2 (09:08→20:26)
--- NOTE | 2017-01-27 12:44 | NUR ---
Notified Dr. David of CT scan of chest result. 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 Stated he will follow-up with family next week. Endorsed.
[2017-01-27] MEDS: ACETAMINOPHEN 650 MG/20 ML UDC- FOR SA PATIENTS ONLY GT PRN (16:30)
--- NOTE | 2017-01-27 18:54 | NUR ---
Monitoring for bowel movement - no bowel movement noted at this time, resident still on Flagyl 500 mg every 8 hours for C diff.
[2017-01-27 19:54] VITALS: BP 108/61
[2017-01-27] MEDS: FINASTERIDE (5 MG) 5 MG TABLET GT SCH (20:26)
--- NOTE | 2017-01-27 21:30 | NUR ---
Informed that CT Scan of the Chest was done in the morning and the results was already relayed to Dr. David. Informed her that Dr. David would like to discuss the results with her next week. She verbalized understanding and stated ok.
[2017-01-28] MEDS: ALBUTEROL FS 2.5 MG/3 ML VIAL.NEB NEB SCH ×5 (01:12→19:30)
[2017-01-28] MEDS: IPRATROPIUM NEB FS 0.5 MG/2.5 ML AMPUL.NEB NEB SCH ×4 (01:12→19:30)
[2017-01-28] MEDS: GLYCOPYRROLATE 1 MG TABLET GT SCH ×4 (05:12→23:22)
[2017-01-28] MEDS: LEVOTHYROXINE SODIUM 125 MCG TABLET GT SCH (05:12)
[2017-01-28] MEDS: RENAL NOVASOURCE 1,000 ML BOTTLE GT PRN (05:12)
[2017-01-28] MEDS: BACLOFEN (10 MG) 10 MG TABLET GT SCH ×3 (05:12→20:10)
[2017-01-28] MEDS: OMEPRAZOLE 20 MG GT SCH (05:12)
[2017-01-28] MEDS: METRONIDAZOLE 500 MG TABLET GT SCH ×3 (06:35→23:22)
[2017-01-28 07:36] VITALS: BP 122/64
[2017-01-28] MEDS: POLYVINYL ALCOHOL 15 ML BOTTLE EACHEYE SCH ×4 (09:36→20:10)
[2017-01-28] MEDS: AMIODARONE HCL 200 MG TABLET GT SCH (09:37)
[2017-01-28] MEDS: MVI/MINERALS LIQUID (CEROVITE) GT SCH (09:38)
[2017-01-28] MEDS: POTASSIUM CHLORIDE 20 MEQ/15 ML ML GT SCH (09:38)
[2017-01-28] MEDS: ACIDOPHILUS/BULGARICUS 1 EACH TAB.CHEW GT SCH (09:38)
[2017-01-28] MEDS: ERGOCALCIFEROL (VITAMIN D2) 8,000 UNIT/ML GT SCH (09:39)
[2017-01-28] MEDS: HEPARIN SODIUM, PORCINE 5000 UNITS/1 ML VIAL SQ SCH ×2 (09:39→20:11)
[2017-01-28] MEDS: ASCORBIC ACID 500 MG TABLET GT SCH (09:39)
[2017-01-28] MEDS: ZINC OXIDE 30 GM TUBE TP SCH ×4 (09:40→20:11)
[2017-01-28] MEDS: CHLORHEXIDINE GLUCONATE 4% 118 ML BOTTLE TP SCH (09:40)
[2017-01-28] MEDS: HYDROGEN PEROXIDE 480 ML BOTTLE TP SCH ×2 (09:40→20:11)
[2017-01-28] MEDS: MUPIROCIN OINT 2% 22 GM TUBE TP SCH ×2 (09:40→20:11)
[2017-01-28] MEDS: FINASTERIDE (5 MG) 5 MG TABLET GT SCH (20:10)
[2017-01-28 20:11] VITALS: BP 104/61
[2017-01-29] MEDS: ALBUTEROL FS 2.5 MG/3 ML VIAL.NEB NEB SCH ×4 (01:35→19:30)
[2017-01-29] MEDS: IPRATROPIUM NEB FS 0.5 MG/2.5 ML AMPUL.NEB NEB SCH ×4 (01:35→19:30)
[2017-01-29] MEDS: BACLOFEN (10 MG) 10 MG TABLET GT SCH ×3 (05:21→20:09)
[2017-01-29] MEDS: OMEPRAZOLE 20 MG GT SCH (05:21)
[2017-01-29] MEDS: LEVOTHYROXINE SODIUM 125 MCG TABLET GT SCH (05:21)
[2017-01-29] MEDS: GLYCOPYRROLATE 1 MG TABLET GT SCH ×4 (05:21→23:47)
[2017-01-29] MEDS: METRONIDAZOLE 500 MG TABLET GT SCH (07:30)
[2017-01-29 07:43] VITALS: BP 128/79
[2017-01-29] MEDS: CHLORHEXIDINE GLUCONATE 4% 118 ML BOTTLE TP SCH (09:00)
[2017-01-29] MEDS: MVI/MINERALS LIQUID (CEROVITE) GT SCH (09:00)
[2017-01-29] MEDS: ACIDOPHILUS/BULGARICUS 1 EACH TAB.CHEW GT SCH (09:00)
[2017-01-29] MEDS: POTASSIUM CHLORIDE 20 MEQ/15 ML ML GT SCH (09:00)
[2017-01-29] MEDS: HEPARIN SODIUM, PORCINE 5000 UNITS/1 ML VIAL SQ SCH ×2 (09:00→20:09)
[2017-01-29] MEDS: MUPIROCIN OINT 2% 22 GM TUBE TP SCH (09:00)
[2017-01-29] MEDS: HYDROGEN PEROXIDE 480 ML BOTTLE TP SCH ×2 (09:00→20:09)
[2017-01-29] MEDS: AMIODARONE HCL 200 MG TABLET GT SCH (09:00)
[2017-01-29] MEDS: ASCORBIC ACID 500 MG TABLET GT SCH (09:00)
[2017-01-29] MEDS: POLYVINYL ALCOHOL 15 ML BOTTLE EACHEYE SCH ×4 (09:00→20:09)
[2017-01-29] MEDS: ZINC OXIDE 30 GM TUBE TP SCH ×4 (10:20→20:10)
[2017-01-29 20:00] VITALS: BP 101/60
[2017-01-29] MEDS: FINASTERIDE (5 MG) 5 MG TABLET GT SCH (20:09)
[2017-01-30] MEDS: ALBUTEROL FS 2.5 MG/3 ML VIAL.NEB NEB SCH ×4 (01:23→19:30)
[2017-01-30] MEDS: IPRATROPIUM NEB FS 0.5 MG/2.5 ML AMPUL.NEB NEB SCH ×4 (01:23→19:30)
[2017-01-30] MEDS: BACLOFEN (10 MG) 10 MG TABLET GT SCH ×3 (05:19→20:48)
[2017-01-30] MEDS: LEVOTHYROXINE SODIUM 125 MCG TABLET GT SCH (05:19)
[2017-01-30] MEDS: GLYCOPYRROLATE 1 MG TABLET GT SCH ×4 (05:19→23:26)
[2017-01-30] MEDS: OMEPRAZOLE 20 MG GT SCH (05:19)
[2017-01-30 08:14] VITALS: BP 120/79
[2017-01-30 08:15] VITALS: BP 120/79
[2017-01-30] MEDS: ZINC OXIDE 30 GM TUBE TP SCH ×4 (09:00→20:50)
[2017-01-30] MEDS: POLYVINYL ALCOHOL 15 ML BOTTLE EACHEYE SCH ×4 (09:00→20:48)
[2017-01-30] MEDS: HEPARIN SODIUM, PORCINE 5000 UNITS/1 ML VIAL SQ SCH ×2 (09:00→20:49)
[2017-01-30] MEDS: POTASSIUM CHLORIDE 20 MEQ/15 ML ML GT SCH (09:00)
[2017-01-30] MEDS: AMIODARONE HCL 200 MG TABLET GT SCH (09:00)
[2017-01-30] MEDS: MVI/MINERALS LIQUID (CEROVITE) GT SCH (09:00)
[2017-01-30] MEDS: ACIDOPHILUS/BULGARICUS 1 EACH TAB.CHEW GT SCH (09:00)
[2017-01-30] MEDS: ASCORBIC ACID 500 MG TABLET GT SCH (09:00)
[2017-01-30] MEDS: HYDROGEN PEROXIDE 480 ML BOTTLE TP SCH ×2 (09:00→20:49)
[2017-01-30] MEDS: BISACODYL SUPP (10 MG) 10 MG/SUPP.RECT SUPP.RECT RC PRN (18:50)
--- NOTE | 2017-01-30 18:55 | NUR ---
Resident awake monitored for BM, no BM for 3 days. Dulcolax suppository 10 mg. per rectum given as ordered. endorsed.
[2017-01-30 19:33] VITALS: BP 106/62
[2017-01-30] MEDS: FINASTERIDE (5 MG) 5 MG TABLET GT SCH (20:48)
[2017-01-31] MEDS: IPRATROPIUM NEB FS 0.5 MG/2.5 ML AMPUL.NEB NEB SCH ×4 (01:23→19:39)
[2017-01-31] MEDS: ALBUTEROL FS 2.5 MG/3 ML VIAL.NEB NEB SCH ×4 (01:23→19:39)
[2017-01-31] MEDS: OMEPRAZOLE 20 MG GT SCH (05:19)
[2017-01-31] MEDS: GLYCOPYRROLATE 1 MG TABLET GT SCH ×3 (05:19→17:30)
[2017-01-31] MEDS: BACLOFEN (10 MG) 10 MG TABLET GT SCH ×3 (05:19→20:37)
[2017-01-31] MEDS: LEVOTHYROXINE SODIUM 125 MCG TABLET GT SCH (05:19)
[2017-01-31 07:44] VITALS: BP 82/49
[2017-01-31] MEDS: POTASSIUM CHLORIDE 20 MEQ/15 ML ML GT SCH (09:49)
[2017-01-31] MEDS: ASCORBIC ACID 500 MG TABLET GT SCH (09:49)
[2017-01-31] MEDS: AMIODARONE HCL 200 MG TABLET GT SCH (09:49)
[2017-01-31] MEDS: POLYVINYL ALCOHOL 15 ML BOTTLE EACHEYE SCH ×4 (09:49→20:36)
[2017-01-31] MEDS: MVI/MINERALS LIQUID (CEROVITE) GT SCH (09:49)
[2017-01-31] MEDS: ACIDOPHILUS/BULGARICUS 1 EACH TAB.CHEW GT SCH (09:49)
[2017-01-31] MEDS: ZINC OXIDE 30 GM TUBE TP SCH ×4 (09:50→20:38)
[2017-01-31] MEDS: HEPARIN SODIUM, PORCINE 5000 UNITS/1 ML VIAL SQ SCH ×2 (09:50→20:37)
[2017-01-31] MEDS: HYDROGEN PEROXIDE 480 ML BOTTLE TP SCH ×2 (09:50→20:37)
[2017-01-31 20:04] VITALS: BP 105/59
[2017-01-31] MEDS: FINASTERIDE (5 MG) 5 MG TABLET GT SCH (20:36)
[2017-02-01] MEDS: IPRATROPIUM NEB FS 0.5 MG/2.5 ML AMPUL.NEB NEB SCH ×4 (01:44→19:41)
[2017-02-01] MEDS: ALBUTEROL FS 2.5 MG/3 ML VIAL.NEB NEB SCH ×4 (01:44→19:41)
[2017-02-01] MEDS: GLYCOPYRROLATE 1 MG TABLET GT SCH ×5 (05:11→23:37)
[2017-02-01] MEDS: BACLOFEN (10 MG) 10 MG TABLET GT SCH ×3 (05:11→20:35)
[2017-02-01] MEDS: OMEPRAZOLE 20 MG GT SCH (05:12)
[2017-02-01] MEDS: LEVOTHYROXINE SODIUM 125 MCG TABLET GT SCH (05:12)
[2017-02-01 08:09] VITALS: BP_SYST 107; BP_SYST 121; BP_DIAS 52; BP_DIAS 66
[2017-02-01] MEDS: POLYVINYL ALCOHOL 15 ML BOTTLE EACHEYE SCH ×4 (09:05→20:35)
[2017-02-01] MEDS: AMIODARONE HCL 200 MG TABLET GT SCH (09:06)
[2017-02-01] MEDS: MVI/MINERALS LIQUID (CEROVITE) GT SCH (09:07)
[2017-02-01] MEDS: ASCORBIC ACID 500 MG TABLET GT SCH (09:07)
[2017-02-01] MEDS: POTASSIUM CHLORIDE 20 MEQ/15 ML ML GT SCH (09:07)
[2017-02-01] MEDS: ACIDOPHILUS/BULGARICUS 1 EACH TAB.CHEW GT SCH (09:07)
[2017-02-01] MEDS: ZINC OXIDE 30 GM TUBE TP SCH ×4 (09:09→20:36)
[2017-02-01] MEDS: HYDROGEN PEROXIDE 480 ML BOTTLE TP SCH ×2 (09:09→20:36)
[2017-02-01] MEDS: HEPARIN SODIUM, PORCINE 5000 UNITS/1 ML VIAL SQ SCH ×2 (09:09→20:36)
[2017-02-01] MEDS: RENAL NOVASOURCE 1,000 ML BOTTLE GT PRN (19:00)
[2017-02-01] MEDS: FINASTERIDE (5 MG) 5 MG TABLET GT SCH (20:35)
[2017-02-01 20:38] VITALS: BP 100/60
[2017-02-02] MEDS: IPRATROPIUM NEB FS 0.5 MG/2.5 ML AMPUL.NEB NEB SCH ×4 (01:04→19:58)
[2017-02-02] MEDS: ALBUTEROL FS 2.5 MG/3 ML VIAL.NEB NEB SCH ×4 (01:04→19:58)
[2017-02-02] MEDS: OMEPRAZOLE 20 MG GT SCH (05:13)
[2017-02-02] MEDS: LEVOTHYROXINE SODIUM 125 MCG TABLET GT SCH (05:13)
[2017-02-02] MEDS: BACLOFEN (10 MG) 10 MG TABLET GT SCH ×3 (05:13→20:27)
[2017-02-02] MEDS: GLYCOPYRROLATE 1 MG TABLET GT SCH ×4 (05:13→23:27)
[2017-02-02] MEDS: BISACODYL SUPP (10 MG) 10 MG/SUPP.RECT SUPP.RECT RC PRN (05:14)
[2017-02-02 08:06] VITALS: BP 104/53
--- NOTE | 2017-02-02 09:00 | NUR ---
Received a call from Infection Control nurse to D/C isolation for C. Diff due to no episode of diarrhea. Will obtain specimen of the nares to clear him from MRSA. notified.
[2017-02-02] MEDS: POLYVINYL ALCOHOL 15 ML BOTTLE EACHEYE SCH ×4 (09:27→20:27)
[2017-02-02] MEDS: MVI/MINERALS LIQUID (CEROVITE) GT SCH (09:30)
[2017-02-02] MEDS: AMIODARONE HCL 200 MG TABLET GT SCH (09:30)
[2017-02-02] MEDS: POTASSIUM CHLORIDE 20 MEQ/15 ML ML GT SCH (09:30)
[2017-02-02] MEDS: ASCORBIC ACID 500 MG TABLET GT SCH (09:30)
[2017-02-02] MEDS: ACIDOPHILUS/BULGARICUS 1 EACH TAB.CHEW GT SCH (09:30)
[2017-02-02] MEDS: HYDROGEN PEROXIDE 480 ML BOTTLE TP SCH ×2 (09:33→20:27)
[2017-02-02] MEDS: ZINC OXIDE 30 GM TUBE TP SCH ×4 (09:33→20:27)
[2017-02-02] MEDS: HEPARIN SODIUM, PORCINE 5000 UNITS/1 ML VIAL SQ SCH ×2 (09:33→20:27)
--- NOTE | 2017-02-02 14:13 | NUR ---
IDT meeting held, reviewed new orders, medications, treatments and plan of care. attended the meeting. Dr. David discussed CT scan result with resident's . in agreement with the plan. Because of patient's vegetative state, the plan is to leave him like this, according to to keep him comfortable and medicate him with pain medication as needed. According to Dr. David, the patient has fair amount of mass seen in the scan, but will not pursue a biopsy because treatment will not be offered. Dr. David said to take it a day at a time and will have a discussion with the family again. Kirk in agreement with the plan and no further concern raised. Pharmacy also recommended to decrease Vit D 48,000 units q monthly instead of Q weekly due to normal level of Vit. D., and routine DSS daily as stool softener. Orders noted and carried out.
[2017-02-02] MEDS ORDERED: ERGOCALCIFEROL (VITAMIN D2) 8,000 UNIT/ML GT SCH (17:54)
[2017-02-02] MEDS: FINASTERIDE (5 MG) 5 MG TABLET GT SCH (20:26)
[2017-02-02 21:41] VITALS: BP 94/53
[2017-02-03] MEDS: ALBUTEROL FS 2.5 MG/3 ML VIAL.NEB NEB SCH ×4 (01:43→19:32)
[2017-02-03] MEDS: IPRATROPIUM NEB FS 0.5 MG/2.5 ML AMPUL.NEB NEB SCH ×4 (01:43→19:32)
[2017-02-03] MEDS: LEVOTHYROXINE SODIUM 125 MCG TABLET GT SCH (05:14)
[2017-02-03] MEDS: GLYCOPYRROLATE 1 MG TABLET GT SCH ×3 (05:14→17:50)
[2017-02-03] MEDS: OMEPRAZOLE 20 MG GT SCH (05:14)
[2017-02-03] MEDS: RENAL NOVASOURCE 1,000 ML BOTTLE GT PRN (05:14)
[2017-02-03] MEDS: BACLOFEN (10 MG) 10 MG TABLET GT SCH ×3 (05:14→21:07)
[2017-02-03 07:57] VITALS: BP 139/79
[2017-02-03] MEDS: POLYVINYL ALCOHOL 15 ML BOTTLE EACHEYE SCH ×4 (09:49→21:07)
[2017-02-03] MEDS: DOCUSATE SODIUM LIQ 100 MG/10 ML UDC GT SCH (09:49)
[2017-02-03] MEDS: POTASSIUM CHLORIDE 20 MEQ/15 ML ML GT SCH (09:50)
[2017-02-03] MEDS: AMIODARONE HCL 200 MG TABLET GT SCH (09:50)
[2017-02-03] MEDS: ACIDOPHILUS/BULGARICUS 1 EACH TAB.CHEW GT SCH (09:50)
[2017-02-03] MEDS: MVI/MINERALS LIQUID (CEROVITE) GT SCH (09:50)
[2017-02-03] MEDS: HEPARIN SODIUM, PORCINE 5000 UNITS/1 ML VIAL SQ SCH ×2 (09:50→21:07)
[2017-02-03] MEDS: ASCORBIC ACID 500 MG TABLET GT SCH (09:50)
[2017-02-03] MEDS: ZINC OXIDE 30 GM TUBE TP SCH ×4 (10:15→21:00)
[2017-02-03] MEDS: HYDROGEN PEROXIDE 480 ML BOTTLE TP SCH ×2 (10:15→21:00)
[2017-02-03] MEDS: FINASTERIDE (5 MG) 5 MG TABLET GT SCH (20:00)
[2017-02-03 20:52] VITALS: BP 100/67
[2017-02-04] MEDS: GLYCOPYRROLATE 1 MG TABLET GT SCH ×5 (00:23→23:24)
[2017-02-04] MEDS: ALBUTEROL FS 2.5 MG/3 ML VIAL.NEB NEB SCH ×4 (01:27→19:25)
[2017-02-04] MEDS: IPRATROPIUM NEB FS 0.5 MG/2.5 ML AMPUL.NEB NEB SCH ×4 (01:27→19:25)
[2017-02-04] MEDS: BACLOFEN (10 MG) 10 MG TABLET GT SCH ×3 (05:38→20:12)
[2017-02-04] MEDS: OMEPRAZOLE 20 MG GT SCH (05:38)
[2017-02-04] MEDS: LEVOTHYROXINE SODIUM 125 MCG TABLET GT SCH (05:38)
[2017-02-04 08:00] VITALS: BP 110/69
[2017-02-04] MEDS: POLYVINYL ALCOHOL 15 ML BOTTLE EACHEYE SCH ×4 (09:09→20:12)
[2017-02-04] MEDS: DOCUSATE SODIUM LIQ 100 MG/10 ML UDC GT SCH (09:09)
[2017-02-04] MEDS: POTASSIUM CHLORIDE 20 MEQ/15 ML ML GT SCH (09:12)
[2017-02-04] MEDS: AMIODARONE HCL 200 MG TABLET GT SCH (09:12)
[2017-02-04] MEDS: ACIDOPHILUS/BULGARICUS 1 EACH TAB.CHEW GT SCH (09:12)
[2017-02-04] MEDS: MVI/MINERALS LIQUID (CEROVITE) GT SCH (09:12)
[2017-02-04] MEDS: ZINC OXIDE 30 GM TUBE TP SCH ×4 (09:13→20:18)
[2017-02-04] MEDS: HEPARIN SODIUM, PORCINE 5000 UNITS/1 ML VIAL SQ SCH ×2 (09:13→20:18)
[2017-02-04] MEDS: HYDROGEN PEROXIDE 480 ML BOTTLE TP SCH ×2 (09:13→20:18)
[2017-02-04] MEDS: ASCORBIC ACID 500 MG TABLET GT SCH (09:13)
--- NOTE | 2017-02-04 14:11 | NUR ---
Seen and examined by Dr. Paniagua with no new order.
--- NOTE | 2017-02-04 15:06 | NUR ---
Reported by TOOL SUPERVISOR to assess patient left knee, further assessment made noted slightly swollen, warm to touch and reddened. Dr. Reeder informed with orders to do STAT X-ray and to check uric acid level. RP notified.
--- NOTE | 2017-02-04 18:07 | NUR ---
Received result MRSA active surveillance for MRSA of the nares both final result no MRSA isolated. Dr. Reeder made aware and ordered 2nd collection for MRSA of the nares both noted and carried out.
--- NOTE | 2017-02-04 18:48 | NUR ---
Received uric acid level result and X-ray of the left knee reported to Dr. Reeder still awaiting call melania
--- NOTE | 2017-02-04 18:51 | NUR ---
Still awaiting for response. Will endorse to hereditary cancer program coordinator to follow-up.
--- NOTE | 2017-02-04 19:40 | NUR ---
RN NOTES Received new order from Dr. Reeder to start colchicine 0.6mg via GT x1 now then colchicine 0.6mg via gt BID x 3 days (d/c after first episode of diarrhea or until 3 days are up), noted and carried out. at bedside and notified of new order. New order faxed to [facility] pharmacy.
[2017-02-04] MEDS: FINASTERIDE (5 MG) 5 MG TABLET GT SCH (20:12)
--- NOTE | 2017-02-04 23:00 | NUR ---
RN NOTES Called [facility] pharmacy to follow up with colchicine ordered earlier and was told medication would be sent at 4am. Explained order indicated first dose to be given now. Per pharmacy, they would deliver medication stat. Will await for delivery of medication.
--- NOTE | 2017-02-05 | NUR ---
RN NOTES Received colchicine 0.6mg and was started now. Will monitor for episodes diarrhea. Will endorse to following shift.
[2017-02-05] MEDS: IPRATROPIUM NEB FS 0.5 MG/2.5 ML AMPUL.NEB NEB SCH ×4 (00:56→20:23)
[2017-02-05] MEDS: ALBUTEROL FS 2.5 MG/3 ML VIAL.NEB NEB SCH ×4 (00:56→20:23)
[2017-02-05] MEDS: BACLOFEN (10 MG) 10 MG TABLET GT SCH ×3 (05:24→20:09)
[2017-02-05] MEDS: LEVOTHYROXINE SODIUM 125 MCG TABLET GT SCH (05:25)
[2017-02-05] MEDS: OMEPRAZOLE 20 MG GT SCH (05:25)
[2017-02-05] MEDS: GLYCOPYRROLATE 1 MG TABLET GT SCH ×4 (05:25→23:36)
--- NOTE | 2017-02-05 06:32 | NUR ---
RN NOTES No BM during shift. Will endorse to following shift to continue monitoring for diarrhea.
[2017-02-05 06:59] VITALS: BP 126/68
[2017-02-05 08:00] VITALS: BP 118/68
[2017-02-05] MEDS ORDERED: COLCHICINE 0.6 MG TABLET GT ONE (09:00)
[2017-02-05] MEDS: DOCUSATE SODIUM LIQ 100 MG/10 ML UDC GT SCH (09:31)
[2017-02-05] MEDS: MVI/MINERALS LIQUID (CEROVITE) GT SCH (09:31)
[2017-02-05] MEDS: ACIDOPHILUS/BULGARICUS 1 EACH TAB.CHEW GT SCH (09:31)
[2017-02-05] MEDS: ASCORBIC ACID 500 MG TABLET GT SCH (09:32)
[2017-02-05] MEDS: ZINC OXIDE 30 GM TUBE TP SCH ×4 (09:32→20:10)
[2017-02-05] MEDS: HYDROGEN PEROXIDE 480 ML BOTTLE TP SCH ×2 (09:32→20:10)
[2017-02-05] MEDS: POTASSIUM CHLORIDE 20 MEQ/15 ML ML GT SCH (09:35)
[2017-02-05] MEDS: AMIODARONE HCL 200 MG TABLET GT SCH (09:36)
[2017-02-05] MEDS: POLYVINYL ALCOHOL 15 ML BOTTLE EACHEYE SCH ×4 (09:36→20:09)
[2017-02-05] MEDS: HEPARIN SODIUM, PORCINE 5000 UNITS/1 ML VIAL SQ SCH ×2 (09:42→20:10)
[2017-02-05] MEDS: COLCHICINE 0.6 MG TABLET GT SCH (17:32)
--- NOTE | 2017-02-05 19:24 | NUR ---
No episode of diarrhea during this shift.
[2017-02-05] MEDS: FINASTERIDE (5 MG) 5 MG TABLET GT SCH (20:09)
[2017-02-06] MEDS: IPRATROPIUM NEB FS 0.5 MG/2.5 ML AMPUL.NEB NEB SCH ×4 (01:30→19:56)
[2017-02-06] MEDS: ALBUTEROL FS 2.5 MG/3 ML VIAL.NEB NEB SCH ×4 (01:30→19:56)
[2017-02-06] MEDS: GLYCOPYRROLATE 1 MG TABLET GT SCH ×4 (05:42→23:40)
[2017-02-06] MEDS: OMEPRAZOLE 20 MG GT SCH (05:42)
[2017-02-06] MEDS: BACLOFEN (10 MG) 10 MG TABLET GT SCH ×3 (05:42→20:08)
[2017-02-06] MEDS: LEVOTHYROXINE SODIUM 125 MCG TABLET GT SCH (05:42)
[2017-02-06 08:00] VITALS: BP 135/84
[2017-02-06] MEDS: POLYVINYL ALCOHOL 15 ML BOTTLE EACHEYE SCH ×4 (08:29→20:08)
[2017-02-06] MEDS: DOCUSATE SODIUM LIQ 100 MG/10 ML UDC GT SCH (08:29)
[2017-02-06] MEDS: COLCHICINE 0.6 MG TABLET GT SCH ×2 (08:29→16:53)
[2017-02-06] MEDS: ACIDOPHILUS/BULGARICUS 1 EACH TAB.CHEW GT SCH (08:30)
[2017-02-06] MEDS: HEPARIN SODIUM, PORCINE 5000 UNITS/1 ML VIAL SQ SCH ×2 (08:30→20:09)
[2017-02-06] MEDS: ASCORBIC ACID 500 MG TABLET GT SCH (08:30)
[2017-02-06] MEDS: MVI/MINERALS LIQUID (CEROVITE) GT SCH (08:30)
[2017-02-06] MEDS: ZINC OXIDE 30 GM TUBE TP SCH ×4 (08:30→20:09)
[2017-02-06] MEDS: AMIODARONE HCL 200 MG TABLET GT SCH (08:30)
[2017-02-06] MEDS: POTASSIUM CHLORIDE 20 MEQ/15 ML ML GT SCH (08:30)
[2017-02-06] MEDS: HYDROGEN PEROXIDE 480 ML BOTTLE TP SCH ×2 (08:31→20:09)
[2017-02-06] MEDS: FINASTERIDE (5 MG) 5 MG TABLET GT SCH (20:08)
[2017-02-06 20:42] VITALS: BP 105/67
[2017-02-07] MEDS: ALBUTEROL FS 2.5 MG/3 ML VIAL.NEB NEB SCH ×4 (02:17→20:10)
[2017-02-07] MEDS: IPRATROPIUM NEB FS 0.5 MG/2.5 ML AMPUL.NEB NEB SCH ×4 (02:17→20:10)
[2017-02-07] MEDS: LEVOTHYROXINE SODIUM 125 MCG TABLET GT SCH (05:16)
[2017-02-07] MEDS: GLYCOPYRROLATE 1 MG TABLET GT SCH ×3 (05:16→18:24)
[2017-02-07] MEDS: OMEPRAZOLE 20 MG GT SCH (05:16)
[2017-02-07] MEDS: BACLOFEN (10 MG) 10 MG TABLET GT SCH ×3 (05:16→20:31)
[2017-02-07 07:57] VITALS: BP 120/81
[2017-02-07] MEDS: POLYVINYL ALCOHOL 15 ML BOTTLE EACHEYE SCH ×4 (09:00→20:31)
[2017-02-07] MEDS: DOCUSATE SODIUM LIQ 100 MG/10 ML UDC GT SCH (09:04)
[2017-02-07] MEDS: COLCHICINE 0.6 MG TABLET GT SCH ×2 (09:04→16:22)
[2017-02-07] MEDS: ACIDOPHILUS/BULGARICUS 1 EACH TAB.CHEW GT SCH (09:05)
[2017-02-07] MEDS: AMIODARONE HCL 200 MG TABLET GT SCH (09:05)
[2017-02-07] MEDS: POTASSIUM CHLORIDE 20 MEQ/15 ML ML GT SCH (09:05)
[2017-02-07] MEDS: MVI/MINERALS LIQUID (CEROVITE) GT SCH (09:05)
[2017-02-07] MEDS: ASCORBIC ACID 500 MG TABLET GT SCH (09:06)
[2017-02-07] MEDS: HYDROGEN PEROXIDE 480 ML BOTTLE TP SCH ×2 (09:08→20:31)
[2017-02-07] MEDS: ZINC OXIDE 30 GM TUBE TP SCH ×4 (09:08→20:31)
[2017-02-07] MEDS: HEPARIN SODIUM, PORCINE 5000 UNITS/1 ML VIAL SQ SCH ×2 (09:08→20:31)
[2017-02-07 20:05] VITALS: BP 116/76
[2017-02-07] MEDS: FINASTERIDE (5 MG) 5 MG TABLET GT SCH (20:31)
[2017-02-08] MEDS: GLYCOPYRROLATE 1 MG TABLET GT SCH ×4 (00:12→17:57)
[2017-02-08] MEDS: IPRATROPIUM NEB FS 0.5 MG/2.5 ML AMPUL.NEB NEB SCH ×4 (02:10→20:06)
[2017-02-08] MEDS: ALBUTEROL FS 2.5 MG/3 ML VIAL.NEB NEB SCH ×4 (02:10→20:06)
[2017-02-08] MEDS: OMEPRAZOLE 20 MG GT SCH (05:37)
[2017-02-08] MEDS: LEVOTHYROXINE SODIUM 125 MCG TABLET GT SCH (05:37)
[2017-02-08] MEDS: BACLOFEN (10 MG) 10 MG TABLET GT SCH ×3 (05:37→21:25)
[2017-02-08 07:42] VITALS: BP 137/86
[2017-02-08] MEDS: POLYVINYL ALCOHOL 15 ML BOTTLE EACHEYE SCH ×4 (08:31→21:25)
[2017-02-08] MEDS: ASCORBIC ACID 500 MG TABLET GT SCH (08:33)
[2017-02-08] MEDS: POTASSIUM CHLORIDE 20 MEQ/15 ML ML GT SCH (08:33)
[2017-02-08] MEDS: MVI/MINERALS LIQUID (CEROVITE) GT SCH (08:33)
[2017-02-08] MEDS: DOCUSATE SODIUM LIQ 100 MG/10 ML UDC GT SCH (08:33)
[2017-02-08] MEDS: ACIDOPHILUS/BULGARICUS 1 EACH TAB.CHEW GT SCH (08:33)
[2017-02-08] MEDS: HYDROGEN PEROXIDE 480 ML BOTTLE TP SCH ×2 (08:34→21:26)
[2017-02-08] MEDS: ZINC OXIDE 30 GM TUBE TP SCH ×4 (08:34→21:26)
[2017-02-08] MEDS: HEPARIN SODIUM, PORCINE 5000 UNITS/1 ML VIAL SQ SCH ×2 (08:34→21:26)
[2017-02-08] MEDS: COLCHICINE 0.6 MG TABLET GT SCH (08:44)
[2017-02-08] MEDS: AMIODARONE HCL 200 MG TABLET GT SCH (08:45)
[2017-02-08] MEDS: RENAL NOVASOURCE 1,000 ML BOTTLE GT PRN (18:54)
[2017-02-08 19:48] VITALS: BP 117/70
[2017-02-08] MEDS: FINASTERIDE (5 MG) 5 MG TABLET GT SCH (20:00)
[2017-02-09] MEDS: GLYCOPYRROLATE 1 MG TABLET GT SCH ×5 (00:53→23:53)
[2017-02-09] MEDS: IPRATROPIUM NEB FS 0.5 MG/2.5 ML AMPUL.NEB NEB SCH ×4 (01:02→20:17)
[2017-02-09] MEDS: ALBUTEROL FS 2.5 MG/3 ML VIAL.NEB NEB SCH ×4 (01:02→20:17)
[2017-02-09] MEDS: BACLOFEN (10 MG) 10 MG TABLET GT SCH ×3 (05:00→20:46)
[2017-02-09] MEDS: OMEPRAZOLE 20 MG GT SCH (06:27)
[2017-02-09] MEDS: LEVOTHYROXINE SODIUM 125 MCG TABLET GT SCH (06:27)
[2017-02-09 07:47] VITALS: BP 141/88
[2017-02-09] MEDS: DOCUSATE SODIUM LIQ 100 MG/10 ML UDC GT SCH (09:05)
[2017-02-09] MEDS: POTASSIUM CHLORIDE 20 MEQ/15 ML ML GT SCH (09:06)
[2017-02-09] MEDS: ZINC OXIDE 30 GM TUBE TP SCH ×4 (09:06→20:46)
[2017-02-09] MEDS: ACIDOPHILUS/BULGARICUS 1 EACH TAB.CHEW GT SCH (09:06)
[2017-02-09] MEDS: HEPARIN SODIUM, PORCINE 5000 UNITS/1 ML VIAL SQ SCH ×2 (09:06→20:47)
[2017-02-09] MEDS: HYDROGEN PEROXIDE 480 ML BOTTLE TP SCH ×2 (09:06→20:46)
[2017-02-09] MEDS: ASCORBIC ACID 500 MG TABLET GT SCH (09:06)
[2017-02-09] MEDS: AMIODARONE HCL 200 MG TABLET GT SCH (09:06)
[2017-02-09] MEDS: MVI/MINERALS LIQUID (CEROVITE) GT SCH (09:06)
[2017-02-09] MEDS: POLYVINYL ALCOHOL 15 ML BOTTLE EACHEYE SCH ×4 (09:08→20:46)
--- NOTE | 2017-02-09 11:36 | NUR ---
Spoke with Jeanne from laboratory to follow-up the result of MRSA of the nares collected on 02/05/17, according to Jeanne she was informed by staff at [facility] lab that there was a mishap with the specimen. The specimen collected 02/09 will become #2 and will collect a third specimen once #2 specimen is clear from MRSA. Endorsed.
[2017-02-09 19:19] VITALS: BP 126/65
[2017-02-09] MEDS: FINASTERIDE (5 MG) 5 MG TABLET GT SCH (20:17)
[2017-02-10] MEDS: IPRATROPIUM NEB FS 0.5 MG/2.5 ML AMPUL.NEB NEB SCH ×4 (00:58→19:16)
[2017-02-10] MEDS: ALBUTEROL FS 2.5 MG/3 ML VIAL.NEB NEB SCH ×4 (00:59→19:16)
[2017-02-10] MEDS: RENAL NOVASOURCE 1,000 ML BOTTLE GT PRN (03:02)
[2017-02-10] MEDS: BACLOFEN (10 MG) 10 MG TABLET GT SCH ×3 (05:22→20:40)
[2017-02-10] MEDS: GLYCOPYRROLATE 1 MG TABLET GT SCH ×4 (05:22→23:56)
[2017-02-10] MEDS: OMEPRAZOLE 20 MG GT SCH (06:00)
[2017-02-10] MEDS: LEVOTHYROXINE SODIUM 125 MCG TABLET GT SCH (06:01)
[2017-02-10 07:33] VITALS: BP 136/71
[2017-02-10] MEDS: POLYVINYL ALCOHOL 15 ML BOTTLE EACHEYE SCH ×4 (09:43→20:40)
[2017-02-10] MEDS: DOCUSATE SODIUM LIQ 100 MG/10 ML UDC GT SCH (09:43)
[2017-02-10] MEDS: ASCORBIC ACID 500 MG TABLET GT SCH (09:44)
[2017-02-10] MEDS: HEPARIN SODIUM, PORCINE 5000 UNITS/1 ML VIAL SQ SCH ×2 (09:44→20:41)
[2017-02-10] MEDS: ACIDOPHILUS/BULGARICUS 1 EACH TAB.CHEW GT SCH (09:44)
[2017-02-10] MEDS: AMIODARONE HCL 200 MG TABLET GT SCH (09:44)
[2017-02-10] MEDS: POTASSIUM CHLORIDE 20 MEQ/15 ML ML GT SCH (09:44)
[2017-02-10] MEDS: MVI/MINERALS LIQUID (CEROVITE) GT SCH (09:44)
[2017-02-10] MEDS: HYDROGEN PEROXIDE 480 ML BOTTLE TP SCH ×2 (11:30→21:00)
[2017-02-10] MEDS: ZINC OXIDE 30 GM TUBE TP SCH ×4 (11:30→21:32)
--- NOTE | 2017-02-10 18:15 | NUR ---
RT NOTE: MONTHLY TRACH CHANGE DONE WITH PORTEX 7 CUFFED TRACH. NO BLEEDING OR REDNESS NOTED. EQUAL BILATERAL BREATH SOUNDS AND CHEST RISE. PT PLACED BACK ON COOL AEROSOL 28% @ 5LPM. NO RESPIRATORY DISTRESS NOTED AT THIS TIME, WILL CONTINUE TO MONITOR. CHARGE NURSE (JAYSON) AWARE.
[2017-02-10] MEDS: FINASTERIDE (5 MG) 5 MG TABLET GT SCH (20:40)
[2017-02-11] MEDS: ALBUTEROL FS 2.5 MG/3 ML VIAL.NEB NEB SCH ×4 (02:06→19:39)
[2017-02-11] MEDS: IPRATROPIUM NEB FS 0.5 MG/2.5 ML AMPUL.NEB NEB SCH ×4 (02:06→19:39)
[2017-02-11] MEDS: LEVOTHYROXINE SODIUM 125 MCG TABLET GT SCH (05:01)
[2017-02-11] MEDS: OMEPRAZOLE 20 MG GT SCH (05:01)
[2017-02-11] MEDS: BACLOFEN (10 MG) 10 MG TABLET GT SCH ×3 (05:01→21:08)
[2017-02-11] MEDS: GLYCOPYRROLATE 1 MG TABLET GT SCH ×4 (05:01→23:42)
[2017-02-11] MEDS: RENAL NOVASOURCE 1,000 ML BOTTLE GT PRN (07:14)
[2017-02-11 08:00] VITALS: BP 126/69
[2017-02-11] MEDS: DOCUSATE SODIUM LIQ 100 MG/10 ML UDC GT SCH (08:54)
[2017-02-11] MEDS: POLYVINYL ALCOHOL 15 ML BOTTLE EACHEYE SCH ×4 (08:54→21:08)
[2017-02-11] MEDS: ASCORBIC ACID 500 MG TABLET GT SCH (08:54)
[2017-02-11] MEDS: AMIODARONE HCL 200 MG TABLET GT SCH (08:54)
[2017-02-11] MEDS: MVI/MINERALS LIQUID (CEROVITE) GT SCH (08:54)
[2017-02-11] MEDS: ACIDOPHILUS/BULGARICUS 1 EACH TAB.CHEW GT SCH (08:54)
[2017-02-11] MEDS: POTASSIUM CHLORIDE 20 MEQ/15 ML ML GT SCH (08:54)
[2017-02-11] MEDS: HYDROGEN PEROXIDE 480 ML BOTTLE TP SCH ×2 (08:56→21:08)
[2017-02-11] MEDS: ZINC OXIDE 30 GM TUBE TP SCH ×4 (08:56→21:08)
[2017-02-11] MEDS: HEPARIN SODIUM, PORCINE 5000 UNITS/1 ML VIAL SQ SCH ×2 (08:56→21:08)
[2017-02-11 19:32] VITALS: BP 102/65
[2017-02-11] MEDS: FINASTERIDE (5 MG) 5 MG TABLET GT SCH (20:00)
[2017-02-12] MEDS: ALBUTEROL FS 2.5 MG/3 ML VIAL.NEB NEB SCH ×4 (01:23→19:40)
[2017-02-12] MEDS: IPRATROPIUM NEB FS 0.5 MG/2.5 ML AMPUL.NEB NEB SCH ×4 (01:23→19:40)
[2017-02-12] MEDS: BACLOFEN (10 MG) 10 MG TABLET GT SCH ×3 (05:05→20:36)
[2017-02-12] MEDS: LEVOTHYROXINE SODIUM 125 MCG TABLET GT SCH (05:53)
[2017-02-12] MEDS: GLYCOPYRROLATE 1 MG TABLET GT SCH ×4 (05:53→23:14)
[2017-02-12] MEDS: OMEPRAZOLE 20 MG GT SCH (05:53)
[2017-02-12 08:00] VITALS: BP 118/75
[2017-02-12] MEDS: POTASSIUM CHLORIDE 20 MEQ/15 ML ML GT SCH (09:00)
[2017-02-12] MEDS: ACIDOPHILUS/BULGARICUS 1 EACH TAB.CHEW GT SCH (09:00)
[2017-02-12] MEDS: POLYVINYL ALCOHOL 15 ML BOTTLE EACHEYE SCH ×4 (09:00→20:36)
[2017-02-12] MEDS: HEPARIN SODIUM, PORCINE 5000 UNITS/1 ML VIAL SQ SCH ×2 (09:00→20:37)
[2017-02-12] MEDS: DOCUSATE SODIUM LIQ 100 MG/10 ML UDC GT SCH (09:00)
[2017-02-12] MEDS: HYDROGEN PEROXIDE 480 ML BOTTLE TP SCH ×2 (09:00→20:36)
[2017-02-12] MEDS: AMIODARONE HCL 200 MG TABLET GT SCH (09:00)
[2017-02-12] MEDS: MVI/MINERALS LIQUID (CEROVITE) GT SCH (09:00)
[2017-02-12] MEDS: ZINC OXIDE 30 GM TUBE TP SCH ×4 (09:00→20:36)
[2017-02-12] MEDS: ASCORBIC ACID 500 MG TABLET GT SCH (09:00)
[2017-02-12] MEDS: RENAL NOVASOURCE 1,000 ML BOTTLE GT PRN (18:56)
[2017-02-12 19:35] VITALS: BP 122/77
[2017-02-12] MEDS: FINASTERIDE (5 MG) 5 MG TABLET GT SCH (20:36)
[2017-02-13] MEDS: ALBUTEROL FS 2.5 MG/3 ML VIAL.NEB NEB SCH ×4 (02:16→19:25)
[2017-02-13] MEDS: IPRATROPIUM NEB FS 0.5 MG/2.5 ML AMPUL.NEB NEB SCH ×4 (02:16→19:25)
[2017-02-13] MEDS: OMEPRAZOLE 20 MG GT SCH (05:39)
[2017-02-13] MEDS: LEVOTHYROXINE SODIUM 125 MCG TABLET GT SCH (05:39)
[2017-02-13] MEDS: GLYCOPYRROLATE 1 MG TABLET GT SCH ×3 (05:39→17:10)
[2017-02-13] MEDS: BACLOFEN (10 MG) 10 MG TABLET GT SCH ×3 (05:39→20:46)
[2017-02-13 08:00] VITALS: BP 122/80
[2017-02-13] MEDS: POLYVINYL ALCOHOL 15 ML BOTTLE EACHEYE SCH ×4 (09:01→20:46)
[2017-02-13] MEDS: POTASSIUM CHLORIDE 20 MEQ/15 ML ML GT SCH (09:02)
[2017-02-13] MEDS: AMIODARONE HCL 200 MG TABLET GT SCH (09:02)
[2017-02-13] MEDS: ACIDOPHILUS/BULGARICUS 1 EACH TAB.CHEW GT SCH (09:02)
[2017-02-13] MEDS: DOCUSATE SODIUM LIQ 100 MG/10 ML UDC GT SCH (09:02)
[2017-02-13] MEDS: MVI/MINERALS LIQUID (CEROVITE) GT SCH (09:02)
[2017-02-13] MEDS: ASCORBIC ACID 500 MG TABLET GT SCH (09:02)
[2017-02-13] MEDS: HYDROGEN PEROXIDE 480 ML BOTTLE TP SCH ×2 (09:03→20:47)
[2017-02-13] MEDS: ZINC OXIDE 30 GM TUBE TP SCH ×4 (09:03→20:47)
[2017-02-13] MEDS: HEPARIN SODIUM, PORCINE 5000 UNITS/1 ML VIAL SQ SCH ×2 (09:03→20:46)
[2017-02-13] MEDS: BISACODYL SUPP (10 MG) 10 MG/SUPP.RECT SUPP.RECT RC PRN (19:01)
--- NOTE | 2017-02-13 19:03 | NUR ---
Patient awake, monitored for BM; no BM for 4 days. Dulcolax suppository 10 mg. given per rectum as ordered. endorsed for result.
[2017-02-13 19:55] VITALS: BP 106/66
[2017-02-13] MEDS: FINASTERIDE (5 MG) 5 MG TABLET GT SCH (20:46)
[2017-02-14] MEDS: GLYCOPYRROLATE 1 MG TABLET GT SCH ×5 (00:15→23:07)
[2017-02-14] MEDS: ALBUTEROL FS 2.5 MG/3 ML VIAL.NEB NEB SCH ×4 (01:18→20:02)
[2017-02-14] MEDS: IPRATROPIUM NEB FS 0.5 MG/2.5 ML AMPUL.NEB NEB SCH ×4 (01:18→20:02)
[2017-02-14] MEDS: BACLOFEN (10 MG) 10 MG TABLET GT SCH ×3 (05:00→20:27)
[2017-02-14] MEDS: RENAL NOVASOURCE 1,000 ML BOTTLE GT PRN (06:21)
[2017-02-14] MEDS: LEVOTHYROXINE SODIUM 125 MCG TABLET GT SCH (06:21)
[2017-02-14] MEDS: OMEPRAZOLE 20 MG GT SCH (06:21)
[2017-02-14 07:47] VITALS: BP 105/79
[2017-02-14] MEDS: POLYVINYL ALCOHOL 15 ML BOTTLE EACHEYE SCH ×4 (09:07→20:27)
[2017-02-14] MEDS: DOCUSATE SODIUM LIQ 100 MG/10 ML UDC GT SCH (09:07)
[2017-02-14] MEDS: POTASSIUM CHLORIDE 20 MEQ/15 ML ML GT SCH (09:08)
[2017-02-14] MEDS: AMIODARONE HCL 200 MG TABLET GT SCH (09:08)
[2017-02-14] MEDS: ACIDOPHILUS/BULGARICUS 1 EACH TAB.CHEW GT SCH (09:08)
[2017-02-14] MEDS: MVI/MINERALS LIQUID (CEROVITE) GT SCH (09:08)
[2017-02-14] MEDS: ASCORBIC ACID 500 MG TABLET GT SCH (09:08)
[2017-02-14] MEDS: HEPARIN SODIUM, PORCINE 5000 UNITS/1 ML VIAL SQ SCH ×2 (09:09→20:27)
[2017-02-14] MEDS: HYDROGEN PEROXIDE 480 ML BOTTLE TP SCH ×2 (11:37→20:27)
[2017-02-14] MEDS: ZINC OXIDE 30 GM TUBE TP SCH ×4 (11:38→20:27)
[2017-02-14] MEDS: LORAZEPAM 0.5 MG TABLET GT PRN (15:23)
[2017-02-14 20:04] VITALS: BP 115/70
[2017-02-14] MEDS: FINASTERIDE (5 MG) 5 MG TABLET GT SCH (20:27)
[2017-02-14] MEDS: MAGNESIUM HYDROXIDE 30 ML UDC GT PRN (21:23)
[2017-02-15] MEDS: ALBUTEROL FS 2.5 MG/3 ML VIAL.NEB NEB SCH ×4 (00:49→20:14)
[2017-02-15] MEDS: IPRATROPIUM NEB FS 0.5 MG/2.5 ML AMPUL.NEB NEB SCH ×4 (00:49→20:14)
[2017-02-15] MEDS: OMEPRAZOLE 20 MG GT SCH (05:30)
[2017-02-15] MEDS: GLYCOPYRROLATE 1 MG TABLET GT SCH ×4 (05:30→23:35)
[2017-02-15] MEDS: BACLOFEN (10 MG) 10 MG TABLET GT SCH ×3 (05:30→21:49)
[2017-02-15] MEDS: RENAL NOVASOURCE 1,000 ML BOTTLE GT PRN (05:30)
[2017-02-15] MEDS: LEVOTHYROXINE SODIUM 125 MCG TABLET GT SCH (05:30)
--- NOTE | 2017-02-15 05:56 | NUR ---
Pt MRSA nares surveillance x 3 negative.Contact isolation discontinue.
[2017-02-15 07:59] VITALS: BP 109/77
[2017-02-15] MEDS ORDERED: ERGOCALCIFEROL (VITAMIN D2) 8,000 UNIT/ML GT SCH ×2 (09:00)
[2017-02-15] MEDS: ACIDOPHILUS/BULGARICUS 1 EACH TAB.CHEW GT SCH (09:26)
[2017-02-15] MEDS: MVI/MINERALS LIQUID (CEROVITE) GT SCH (09:26)
[2017-02-15] MEDS: AMIODARONE HCL 200 MG TABLET GT SCH (09:26)
[2017-02-15] MEDS: POTASSIUM CHLORIDE 20 MEQ/15 ML ML GT SCH (09:26)
[2017-02-15] MEDS: DOCUSATE SODIUM LIQ 100 MG/10 ML UDC GT SCH (09:26)
[2017-02-15] MEDS: ASCORBIC ACID 500 MG TABLET GT SCH (09:26)
[2017-02-15] MEDS: HYDROGEN PEROXIDE 480 ML BOTTLE TP SCH ×2 (09:27→21:49)
[2017-02-15] MEDS: ZINC OXIDE 30 GM TUBE TP SCH ×4 (09:27→21:50)
[2017-02-15] MEDS: POLYVINYL ALCOHOL 15 ML BOTTLE EACHEYE SCH ×4 (09:27→21:49)
[2017-02-15] MEDS: HEPARIN SODIUM, PORCINE 5000 UNITS/1 ML VIAL SQ SCH ×2 (09:28→21:49)
[2017-02-15 19:47] VITALS: BP 89/51
[2017-02-15] MEDS: FINASTERIDE (5 MG) 5 MG TABLET GT SCH (20:00)
[2017-02-16] MEDS: ALBUTEROL FS 2.5 MG/3 ML VIAL.NEB NEB SCH ×4 (02:10→19:30)
[2017-02-16] MEDS: IPRATROPIUM NEB FS 0.5 MG/2.5 ML AMPUL.NEB NEB SCH ×4 (02:10→19:30)
[2017-02-16] MEDS: RENAL NOVASOURCE 1,000 ML BOTTLE GT PRN (05:48)
[2017-02-16] MEDS: LEVOTHYROXINE SODIUM 125 MCG TABLET GT SCH (05:48)
[2017-02-16] MEDS: GLYCOPYRROLATE 1 MG TABLET GT SCH ×4 (05:48→23:46)
[2017-02-16] MEDS: BACLOFEN (10 MG) 10 MG TABLET GT SCH ×3 (05:48→20:41)
[2017-02-16] MEDS: OMEPRAZOLE 20 MG GT SCH (05:48)
[2017-02-16 08:40] VITALS: BP 134/84
[2017-02-16] MEDS: POLYVINYL ALCOHOL 15 ML BOTTLE EACHEYE SCH ×4 (09:03→20:41)
[2017-02-16] MEDS: AMIODARONE HCL 200 MG TABLET GT SCH (09:03)
[2017-02-16] MEDS: DOCUSATE SODIUM LIQ 100 MG/10 ML UDC GT SCH (09:03)
[2017-02-16] MEDS: HYDROGEN PEROXIDE 480 ML BOTTLE TP SCH ×2 (09:04→20:42)
[2017-02-16] MEDS: ACIDOPHILUS/BULGARICUS 1 EACH TAB.CHEW GT SCH (09:04)
[2017-02-16] MEDS: ZINC OXIDE 30 GM TUBE TP SCH ×4 (09:04→20:42)
[2017-02-16] MEDS: POTASSIUM CHLORIDE 20 MEQ/15 ML ML GT SCH (09:04)
[2017-02-16] MEDS: HEPARIN SODIUM, PORCINE 5000 UNITS/1 ML VIAL SQ SCH ×2 (09:04→20:42)
[2017-02-16] MEDS: MVI/MINERALS LIQUID (CEROVITE) GT SCH (09:04)
[2017-02-16] MEDS: ASCORBIC ACID 500 MG TABLET GT SCH (09:04)
--- NOTE | 2017-02-16 16:00 | NUR ---
INTERDISCIPLINARY PLAN OF CARE CONFERENCE was held today. Resident's , Fanny, able to attend. Dr. David and the Interdisciplinary Team reviewed the current plan of care in detail as well as medications and treatment. Per Dr. David, resident will have CHEM 7/BMP and TSH level on Sunday. also expressed frustration with ASSISTANT PROFESSOR OF BIOCHEMISTRY's and expects them to do things the way she wants without them asking her. Charge nurse will endorse to the nurses/ASSISTANT PROFESSOR OF BIOCHEMISTRY's.
[2017-02-16 20:01] VITALS: BP 119/80
[2017-02-16] MEDS: FINASTERIDE (5 MG) 5 MG TABLET GT SCH (20:41)
[2017-02-16] MEDS: MAGNESIUM HYDROXIDE 30 ML UDC GT PRN (21:00)
[2017-02-17] MEDS: IPRATROPIUM NEB FS 0.5 MG/2.5 ML AMPUL.NEB NEB SCH ×4 (00:57→19:34)
[2017-02-17] MEDS: ALBUTEROL FS 2.5 MG/3 ML VIAL.NEB NEB SCH ×4 (00:57→19:34)
[2017-02-17] MEDS: OMEPRAZOLE 20 MG GT SCH (05:16)
[2017-02-17] MEDS: BACLOFEN (10 MG) 10 MG TABLET GT SCH ×3 (05:16→20:47)
[2017-02-17] MEDS: GLYCOPYRROLATE 1 MG TABLET GT SCH ×4 (05:16→23:32)
[2017-02-17] MEDS: LEVOTHYROXINE SODIUM 125 MCG TABLET GT SCH (05:16)
[2017-02-17] MEDS: RENAL NOVASOURCE 1,000 ML BOTTLE GT PRN (05:16)
[2017-02-17] MEDS: BISACODYL SUPP (10 MG) 10 MG/SUPP.RECT SUPP.RECT RC PRN (05:19)
--- NOTE | 2017-02-17 05:21 | NUR ---
Resident slept good during shift, no respiratory distress noted,elmo meds,gtf, and water flushes. Noted with no BM x 3 days, PRN mom via gt given last night ineffective, PRN Dulcolax supp to rectal given, and will monitor effectiveness.
[2017-02-17 07:40] VITALS: BP 99/56
[2017-02-17] MEDS: DOCUSATE SODIUM LIQ 100 MG/10 ML UDC GT SCH (08:48)
[2017-02-17] MEDS: POLYVINYL ALCOHOL 15 ML BOTTLE EACHEYE SCH ×4 (08:48→20:47)
[2017-02-17] MEDS: HYDROGEN PEROXIDE 480 ML BOTTLE TP SCH ×2 (08:49→20:48)
[2017-02-17] MEDS: ZINC OXIDE 30 GM TUBE TP SCH ×4 (08:49→20:48)
[2017-02-17] MEDS: ACIDOPHILUS/BULGARICUS 1 EACH TAB.CHEW GT SCH (08:49)
[2017-02-17] MEDS: MVI/MINERALS LIQUID (CEROVITE) GT SCH (08:49)
[2017-02-17] MEDS: POTASSIUM CHLORIDE 20 MEQ/15 ML ML GT SCH (08:49)
[2017-02-17] MEDS: ASCORBIC ACID 500 MG TABLET GT SCH (08:49)
[2017-02-17] MEDS: AMIODARONE HCL 200 MG TABLET GT SCH (08:49)
[2017-02-17] MEDS: HEPARIN SODIUM, PORCINE 5000 UNITS/1 ML VIAL SQ SCH ×2 (08:49→20:48)
[2017-02-17 19:46] VITALS: BP 105/64
[2017-02-17] MEDS: FINASTERIDE (5 MG) 5 MG TABLET GT SCH (20:47)
[2017-02-17] MEDS: MAGNESIUM HYDROXIDE 30 ML UDC GT PRN (21:17)
[2017-02-18] MEDS: ALBUTEROL FS 2.5 MG/3 ML VIAL.NEB NEB SCH ×4 (00:57→20:01)
[2017-02-18] MEDS: IPRATROPIUM NEB FS 0.5 MG/2.5 ML AMPUL.NEB NEB SCH ×4 (00:57→20:01)
[2017-02-18] MEDS: LEVOTHYROXINE SODIUM 125 MCG TABLET GT SCH (05:16)
[2017-02-18] MEDS: RENAL NOVASOURCE 1,000 ML BOTTLE GT PRN (05:16)
[2017-02-18] MEDS: BACLOFEN (10 MG) 10 MG TABLET GT SCH ×3 (05:16→20:16)
[2017-02-18] MEDS: OMEPRAZOLE 20 MG GT SCH (05:16)
[2017-02-18] MEDS: GLYCOPYRROLATE 1 MG TABLET GT SCH ×4 (05:16→23:35)
[2017-02-18 07:34] VITALS: BP 114/66
[2017-02-18] MEDS: AMIODARONE HCL 200 MG TABLET GT SCH (09:32)
[2017-02-18] MEDS: DOCUSATE SODIUM LIQ 100 MG/10 ML UDC GT SCH (09:32)
[2017-02-18] MEDS: POLYVINYL ALCOHOL 15 ML BOTTLE EACHEYE SCH ×4 (09:32→20:16)
[2017-02-18] MEDS: HYDROGEN PEROXIDE 480 ML BOTTLE TP SCH ×2 (09:33→20:16)
[2017-02-18] MEDS: MVI/MINERALS LIQUID (CEROVITE) GT SCH (09:33)
[2017-02-18] MEDS: ZINC OXIDE 30 GM TUBE TP SCH ×4 (09:33→20:16)
[2017-02-18] MEDS: ACIDOPHILUS/BULGARICUS 1 EACH TAB.CHEW GT SCH (09:33)
[2017-02-18] MEDS: ASCORBIC ACID 500 MG TABLET GT SCH (09:33)
[2017-02-18] MEDS: POTASSIUM CHLORIDE 20 MEQ/15 ML ML GT SCH (09:35)
[2017-02-18] MEDS: HEPARIN SODIUM, PORCINE 5000 UNITS/1 ML VIAL SQ SCH ×2 (09:35→20:16)
[2017-02-18 20:00] VITALS: BP 105/66
[2017-02-18] MEDS: FINASTERIDE (5 MG) 5 MG TABLET GT SCH (20:16)
[2017-02-19] MEDS: IPRATROPIUM NEB FS 0.5 MG/2.5 ML AMPUL.NEB NEB SCH ×4 (00:47→19:47)
[2017-02-19] MEDS: ALBUTEROL FS 2.5 MG/3 ML VIAL.NEB NEB SCH ×4 (00:47→19:47)
[2017-02-19] MEDS: GLYCOPYRROLATE 1 MG TABLET GT SCH ×4 (05:48→23:47)
[2017-02-19] MEDS: BACLOFEN (10 MG) 10 MG TABLET GT SCH ×3 (05:48→20:58)
[2017-02-19] MEDS: LEVOTHYROXINE SODIUM 125 MCG TABLET GT SCH (05:48)
[2017-02-19] MEDS: OMEPRAZOLE 20 MG GT SCH (05:48)
[2017-02-19 07:42] LABS: CALCIUM, SERUM 9.3 mg/dL (8.5-10.1); CREATININE 1.5 mg/dL (0.6-1.3); POTASSIUM 4.8 mmol/L (3.5-5.1)
[2017-02-19 08:16] LABS: THYROID STIMULATING HORMONE 0.785 uIU/mL (0.358-3.74)
[2017-02-19] MEDS: DOCUSATE SODIUM LIQ 100 MG/10 ML UDC GT SCH (09:40)
[2017-02-19] MEDS: POLYVINYL ALCOHOL 15 ML BOTTLE EACHEYE SCH ×4 (09:40→20:57)
[2017-02-19] MEDS: ASCORBIC ACID 500 MG TABLET GT SCH (09:41)
[2017-02-19] MEDS: MVI/MINERALS LIQUID (CEROVITE) GT SCH (09:41)
[2017-02-19] MEDS: ACIDOPHILUS/BULGARICUS 1 EACH TAB.CHEW GT SCH (09:41)
[2017-02-19] MEDS: AMIODARONE HCL 200 MG TABLET GT SCH (09:41)
[2017-02-19] MEDS: POTASSIUM CHLORIDE 20 MEQ/15 ML ML GT SCH (09:41)
[2017-02-19] MEDS: HEPARIN SODIUM, PORCINE 5000 UNITS/1 ML VIAL SQ SCH ×2 (09:41→21:03)
[2017-02-19] MEDS: ZINC OXIDE 30 GM TUBE TP SCH ×4 (09:42→20:58)
[2017-02-19] MEDS: HYDROGEN PEROXIDE 480 ML BOTTLE TP SCH ×2 (09:42→20:58)
[2017-02-19] MEDS: RENAL NOVASOURCE 1,000 ML BOTTLE GT PRN (15:33)
[2017-02-19 19:40] VITALS: BP 127/67
[2017-02-19] MEDS: FINASTERIDE (5 MG) 5 MG TABLET GT SCH (20:21)
--- NOTE | 2017-02-19 21:00 | NUR ---
RN NOTES Noted pt with bilateral redness to underarms and sacral area with dunuded skin. Received new orders from Dr. Paniagua noted and carried out. at bedside and made aware of new orders. Addendum: 02/20/17 at 0257 by HUI JIANG RN Correction of redness site: bilateral antecubital area redness.
--- NOTE | 2017-02-19 21:00 | NUR ---
SKIN ASSESSMENT NOTED REDNESS AND EXCORIATION ON TOP OF THE OLD SACRAL WOUND, CLEANSED WITH NS, PATTED DRY, AND COVERED WITH MEPILEX; ALSO NOTED REDNESS ON BOTH SKIN ON THE ANTECUBITAL AREA LEFT > RIGHT, CLEANSED WITH NS, PATTED DRY. PX NORMALLY FLEXES BOTH ARMS. IS AWARE OF SKIN SITUATION.
[2017-02-20] MEDS: IPRATROPIUM NEB FS 0.5 MG/2.5 ML AMPUL.NEB NEB SCH ×4 (01:01→20:17)
[2017-02-20] MEDS: ALBUTEROL FS 2.5 MG/3 ML VIAL.NEB NEB SCH ×4 (01:01→20:17)
[2017-02-20] MEDS: BACLOFEN (10 MG) 10 MG TABLET GT SCH ×3 (05:59→20:35)
[2017-02-20] MEDS: GLYCOPYRROLATE 1 MG TABLET GT SCH ×4 (06:02→23:32)
[2017-02-20] MEDS: LEVOTHYROXINE SODIUM 125 MCG TABLET GT SCH (06:03)
[2017-02-20] MEDS: OMEPRAZOLE 20 MG GT SCH (06:03)
[2017-02-20 08:14] VITALS: BP 123/80
[2017-02-20] MEDS: DOCUSATE SODIUM LIQ 100 MG/10 ML UDC GT SCH (09:43)
[2017-02-20] MEDS: POLYVINYL ALCOHOL 15 ML BOTTLE EACHEYE SCH ×4 (09:43→20:35)
[2017-02-20] MEDS: AMIODARONE HCL 200 MG TABLET GT SCH (09:44)
[2017-02-20] MEDS: POTASSIUM CHLORIDE 20 MEQ/15 ML ML GT SCH (09:44)
[2017-02-20] MEDS: ASCORBIC ACID 500 MG TABLET GT SCH (09:44)
[2017-02-20] MEDS: ACIDOPHILUS/BULGARICUS 1 EACH TAB.CHEW GT SCH (09:44)
[2017-02-20] MEDS: MVI/MINERALS LIQUID (CEROVITE) GT SCH (09:44)
[2017-02-20] MEDS: HEPARIN SODIUM, PORCINE 5000 UNITS/1 ML VIAL SQ SCH ×2 (09:45→20:35)
[2017-02-20] MEDS: HYDROGEN PEROXIDE 480 ML BOTTLE TP SCH ×2 (09:45→20:35)
[2017-02-20] MEDS: ZINC OXIDE 30 GM TUBE TP SCH ×4 (09:47→20:36)
[2017-02-20] MEDS: NYSTATIN TOP POWDER 15 GM BOTTLE TP SCH ×2 (17:47→20:36)
[2017-02-20 19:51] VITALS: BP 128/80
[2017-02-20] MEDS: FINASTERIDE (5 MG) 5 MG TABLET GT SCH (20:35)
[2017-02-21] MEDS: IPRATROPIUM NEB FS 0.5 MG/2.5 ML AMPUL.NEB NEB SCH ×4 (01:35→19:39)
[2017-02-21] MEDS: ALBUTEROL FS 2.5 MG/3 ML VIAL.NEB NEB SCH ×4 (01:36→19:39)
[2017-02-21] MEDS: BACLOFEN (10 MG) 10 MG TABLET GT SCH ×3 (05:16→20:15)
[2017-02-21] MEDS: GLYCOPYRROLATE 1 MG TABLET GT SCH ×4 (05:16→23:15)
[2017-02-21] MEDS: LEVOTHYROXINE SODIUM 125 MCG TABLET GT SCH (05:17)
[2017-02-21] MEDS: OMEPRAZOLE 20 MG GT SCH (05:17)
[2017-02-21 07:51] VITALS: BP 141/82
[2017-02-21] MEDS: DOCUSATE SODIUM LIQ 100 MG/10 ML UDC GT SCH (08:27)
[2017-02-21] MEDS: MVI/MINERALS LIQUID (CEROVITE) GT SCH (08:28)
[2017-02-21] MEDS: AMIODARONE HCL 200 MG TABLET GT SCH (08:28)
[2017-02-21] MEDS: ACIDOPHILUS/BULGARICUS 1 EACH TAB.CHEW GT SCH (08:28)
[2017-02-21] MEDS: ASCORBIC ACID 500 MG TABLET GT SCH (08:28)
[2017-02-21] MEDS: POTASSIUM CHLORIDE 20 MEQ/15 ML ML GT SCH (08:28)
[2017-02-21] MEDS: HYDROGEN PEROXIDE 480 ML BOTTLE TP SCH ×2 (08:29→20:15)
[2017-02-21] MEDS: HEPARIN SODIUM, PORCINE 5000 UNITS/1 ML VIAL SQ SCH ×2 (08:29→20:15)
[2017-02-21] MEDS: ZINC OXIDE 30 GM TUBE TP SCH ×4 (08:30→20:16)
[2017-02-21] MEDS: NYSTATIN TOP POWDER 15 GM BOTTLE TP SCH ×2 (08:30→20:16)
[2017-02-21] MEDS: POLYVINYL ALCOHOL 15 ML BOTTLE EACHEYE SCH ×4 (08:45→20:15)
--- NOTE | 2017-02-21 08:55 | NUR ---
WOUND CARE CONSULT: PT SEEN FOR SACRAL/BUTTOCKS SKIN ASSESSMENT. SKIN NOTED TO BE INTACT WITH SOME SKIN STAINING NOTED AND VERY SLIGHT PEELING OF SKIN. CONTINUE OFFLOADING AND SKIN PROTECTION MEASURES. DISCUSSED WITH NURSING STAFF. WILL SEE PRN. GRAY IN AGREEMENT WITH PLAN OF CARE.
[2017-02-21 20:00] VITALS: BP 119/58
[2017-02-21] MEDS: FINASTERIDE (5 MG) 5 MG TABLET GT SCH (20:15)
[2017-02-22] MEDS: ALBUTEROL FS 2.5 MG/3 ML VIAL.NEB NEB SCH ×4 (00:55→19:30)
[2017-02-22] MEDS: IPRATROPIUM NEB FS 0.5 MG/2.5 ML AMPUL.NEB NEB SCH ×4 (00:55→19:30)
[2017-02-22] MEDS: OMEPRAZOLE 20 MG GT SCH (05:30)
[2017-02-22] MEDS: GLYCOPYRROLATE 1 MG TABLET GT SCH ×3 (05:30→18:23)
[2017-02-22] MEDS: BACLOFEN (10 MG) 10 MG TABLET GT SCH ×3 (05:30→21:54)
[2017-02-22] MEDS: LEVOTHYROXINE SODIUM 125 MCG TABLET GT SCH (05:30)
[2017-02-22 07:59] VITALS: BP 101/56
[2017-02-22] MEDS: POTASSIUM CHLORIDE 20 MEQ/15 ML ML GT SCH (08:34)
[2017-02-22] MEDS: DOCUSATE SODIUM LIQ 100 MG/10 ML UDC GT SCH (08:34)
[2017-02-22] MEDS: POLYVINYL ALCOHOL 15 ML BOTTLE EACHEYE SCH ×4 (08:34→21:54)
[2017-02-22] MEDS: ACIDOPHILUS/BULGARICUS 1 EACH TAB.CHEW GT SCH (08:34)
[2017-02-22] MEDS: ASCORBIC ACID 500 MG TABLET GT SCH (08:34)
[2017-02-22] MEDS: MVI/MINERALS LIQUID (CEROVITE) GT SCH (08:42)
[2017-02-22] MEDS: AMIODARONE HCL 200 MG TABLET GT SCH (08:42)
[2017-02-22] MEDS: HYDROGEN PEROXIDE 480 ML BOTTLE TP SCH ×2 (08:43→21:55)
[2017-02-22] MEDS: NYSTATIN TOP POWDER 15 GM BOTTLE TP SCH ×2 (08:43→21:55)
[2017-02-22] MEDS: HEPARIN SODIUM, PORCINE 5000 UNITS/1 ML VIAL SQ SCH ×2 (08:43→21:55)
[2017-02-22] MEDS: ZINC OXIDE 30 GM TUBE TP SCH ×4 (08:43→21:55)
[2017-02-22] MEDS: MAGNESIUM HYDROXIDE 30 ML UDC GT PRN (18:25)
[2017-02-22] MEDS: FINASTERIDE (5 MG) 5 MG TABLET GT SCH (20:00)
[2017-02-22 20:24] VITALS: BP 105/58
[2017-02-23] MEDS: IPRATROPIUM NEB FS 0.5 MG/2.5 ML AMPUL.NEB NEB SCH ×4 (01:30→20:13)
[2017-02-23] MEDS: ALBUTEROL FS 2.5 MG/3 ML VIAL.NEB NEB SCH ×4 (01:30→20:13)
[2017-02-23] MEDS: BACLOFEN (10 MG) 10 MG TABLET GT SCH ×3 (05:00→21:57)
[2017-02-23] MEDS: LEVOTHYROXINE SODIUM 125 MCG TABLET GT SCH (06:13)
[2017-02-23] MEDS: OMEPRAZOLE 20 MG GT SCH (06:13)
[2017-02-23] MEDS: GLYCOPYRROLATE 1 MG TABLET GT SCH ×4 (06:18→18:30)
[2017-02-23 07:49] VITALS: BP 120/78
[2017-02-23] MEDS: HYDROGEN PEROXIDE 480 ML BOTTLE TP SCH ×2 (09:00→21:58)
[2017-02-23] MEDS: ACIDOPHILUS/BULGARICUS 1 EACH TAB.CHEW GT SCH (09:00)
[2017-02-23] MEDS: DOCUSATE SODIUM LIQ 100 MG/10 ML UDC GT SCH (09:00)
[2017-02-23] MEDS: ZINC OXIDE 30 GM TUBE TP SCH ×4 (09:00→21:58)
[2017-02-23] MEDS: NYSTATIN TOP POWDER 15 GM BOTTLE TP SCH ×2 (09:00→21:58)
[2017-02-23] MEDS: HEPARIN SODIUM, PORCINE 5000 UNITS/1 ML VIAL SQ SCH ×2 (09:00→21:58)
[2017-02-23] MEDS: POLYVINYL ALCOHOL 15 ML BOTTLE EACHEYE SCH ×4 (09:00→21:55)
[2017-02-23] MEDS: MVI/MINERALS LIQUID (CEROVITE) GT SCH (09:00)
[2017-02-23] MEDS: POTASSIUM CHLORIDE 20 MEQ/15 ML ML GT SCH (09:00)
[2017-02-23] MEDS: ASCORBIC ACID 500 MG TABLET GT SCH (09:00)
[2017-02-23] MEDS: AMIODARONE HCL 200 MG TABLET GT SCH (09:00)
[2017-02-23] MEDS: RENAL NOVASOURCE 1,000 ML BOTTLE GT PRN (18:52)
[2017-02-23 20:13] VITALS: BP 100/63
[2017-02-23] MEDS: FINASTERIDE (5 MG) 5 MG TABLET GT SCH (20:48)
[2017-02-24] MEDS: GLYCOPYRROLATE 1 MG TABLET GT SCH ×4 (00:08→17:10)
[2017-02-24] MEDS: IPRATROPIUM NEB FS 0.5 MG/2.5 ML AMPUL.NEB NEB SCH ×4 (02:22→20:29)
[2017-02-24] MEDS: ALBUTEROL FS 2.5 MG/3 ML VIAL.NEB NEB SCH ×4 (02:22→20:29)
[2017-02-24] MEDS: BACLOFEN (10 MG) 10 MG TABLET GT SCH ×3 (05:44→21:43)
[2017-02-24] MEDS: OMEPRAZOLE 20 MG GT SCH (05:45)
[2017-02-24] MEDS: LEVOTHYROXINE SODIUM 125 MCG TABLET GT SCH (05:46)
[2017-02-24 07:50] VITALS: BP 102/67
[2017-02-24] MEDS: DOCUSATE SODIUM LIQ 100 MG/10 ML UDC GT SCH (09:00)
[2017-02-24] MEDS: ACIDOPHILUS/BULGARICUS 1 EACH TAB.CHEW GT SCH (09:00)
[2017-02-24] MEDS: HEPARIN SODIUM, PORCINE 5000 UNITS/1 ML VIAL SQ SCH ×2 (09:00→21:44)
[2017-02-24] MEDS: POTASSIUM CHLORIDE 20 MEQ/15 ML ML GT SCH (09:00)
[2017-02-24] MEDS: ASCORBIC ACID 500 MG TABLET GT SCH (09:00)
[2017-02-24] MEDS: AMIODARONE HCL 200 MG TABLET GT SCH (09:00)
[2017-02-24] MEDS: POLYVINYL ALCOHOL 15 ML BOTTLE EACHEYE SCH ×4 (09:00→21:43)
[2017-02-24] MEDS: MVI/MINERALS LIQUID (CEROVITE) GT SCH (09:00)
[2017-02-24] MEDS: NYSTATIN TOP POWDER 15 GM BOTTLE TP SCH ×2 (10:30→21:44)
[2017-02-24] MEDS: ZINC OXIDE 30 GM TUBE TP SCH ×4 (10:30→21:44)
[2017-02-24] MEDS: HYDROGEN PEROXIDE 480 ML BOTTLE TP SCH ×2 (10:30→21:44)
[2017-02-24] MEDS: RENAL NOVASOURCE 1,000 ML BOTTLE GT PRN (18:22)
[2017-02-24] MEDS: FINASTERIDE (5 MG) 5 MG TABLET GT SCH (20:00)
[2017-02-24 20:03] VITALS: BP 103/67
[2017-02-25] MEDS: GLYCOPYRROLATE 1 MG TABLET GT SCH ×5 (00:42→23:20)
[2017-02-25] MEDS: IPRATROPIUM NEB FS 0.5 MG/2.5 ML AMPUL.NEB NEB SCH ×4 (02:24→21:20)
[2017-02-25] MEDS: ALBUTEROL FS 2.5 MG/3 ML VIAL.NEB NEB SCH ×4 (02:24→21:20)
[2017-02-25] MEDS: BACLOFEN (10 MG) 10 MG TABLET GT SCH ×3 (05:24→21:15)
[2017-02-25] MEDS: LEVOTHYROXINE SODIUM 125 MCG TABLET GT SCH (05:24)
[2017-02-25] MEDS: OMEPRAZOLE 20 MG GT SCH (05:24)
[2017-02-25] MEDS: DOCUSATE SODIUM LIQ 100 MG/10 ML UDC GT SCH (09:38)
[2017-02-25] MEDS: POLYVINYL ALCOHOL 15 ML BOTTLE EACHEYE SCH ×4 (09:38→21:15)
[2017-02-25] MEDS: ACIDOPHILUS/BULGARICUS 1 EACH TAB.CHEW GT SCH (09:39)
[2017-02-25] MEDS: MVI/MINERALS LIQUID (CEROVITE) GT SCH (09:39)
[2017-02-25] MEDS: ASCORBIC ACID 500 MG TABLET GT SCH (09:39)
[2017-02-25] MEDS: AMIODARONE HCL 200 MG TABLET GT SCH (09:39)
[2017-02-25] MEDS: POTASSIUM CHLORIDE 20 MEQ/15 ML ML GT SCH (09:39)
[2017-02-25] MEDS: HYDROGEN PEROXIDE 480 ML BOTTLE TP SCH ×2 (09:40→21:16)
[2017-02-25] MEDS: HEPARIN SODIUM, PORCINE 5000 UNITS/1 ML VIAL SQ SCH ×2 (09:40→21:16)
[2017-02-25] MEDS: ZINC OXIDE 30 GM TUBE TP SCH ×4 (09:41→21:16)
[2017-02-25] MEDS: NYSTATIN TOP POWDER 15 GM BOTTLE TP SCH ×2 (09:41→21:16)
[2017-02-25 19:47] VITALS: BP 112/67
[2017-02-25] MEDS: FINASTERIDE (5 MG) 5 MG TABLET GT SCH (20:00)
[2017-02-26] MEDS: IPRATROPIUM NEB FS 0.5 MG/2.5 ML AMPUL.NEB NEB SCH ×4 (01:40→19:30)
[2017-02-26] MEDS: ALBUTEROL FS 2.5 MG/3 ML VIAL.NEB NEB SCH ×4 (01:40→19:30)
[2017-02-26] MEDS: LEVOTHYROXINE SODIUM 125 MCG TABLET GT SCH (05:47)
[2017-02-26] MEDS: OMEPRAZOLE 20 MG GT SCH (05:47)
[2017-02-26] MEDS: GLYCOPYRROLATE 1 MG TABLET GT SCH ×4 (05:47→23:28)
[2017-02-26] MEDS: BACLOFEN (10 MG) 10 MG TABLET GT SCH ×3 (05:47→21:13)
[2017-02-26 07:28] VITALS: BP 113/80
[2017-02-26] MEDS: POLYVINYL ALCOHOL 15 ML BOTTLE EACHEYE SCH ×4 (09:01→21:13)
[2017-02-26] MEDS: AMIODARONE HCL 200 MG TABLET GT SCH (09:01)
[2017-02-26] MEDS: DOCUSATE SODIUM LIQ 100 MG/10 ML UDC GT SCH (09:01)
[2017-02-26] MEDS: POTASSIUM CHLORIDE 20 MEQ/15 ML ML GT SCH (09:02)
[2017-02-26] MEDS: HEPARIN SODIUM, PORCINE 5000 UNITS/1 ML VIAL SQ SCH ×2 (09:02→21:14)
[2017-02-26] MEDS: MVI/MINERALS LIQUID (CEROVITE) GT SCH (09:02)
[2017-02-26] MEDS: ASCORBIC ACID 500 MG TABLET GT SCH (09:02)
[2017-02-26] MEDS: ACIDOPHILUS/BULGARICUS 1 EACH TAB.CHEW GT SCH (09:02)
[2017-02-26] MEDS: NYSTATIN TOP POWDER 15 GM BOTTLE TP SCH ×2 (10:00→21:14)
[2017-02-26] MEDS: HYDROGEN PEROXIDE 480 ML BOTTLE TP SCH ×2 (10:00→21:14)
[2017-02-26] MEDS: ZINC OXIDE 30 GM TUBE TP SCH ×4 (10:00→21:14)
[2017-02-26 19:46] VITALS: BP 100/62
[2017-02-26] MEDS: FINASTERIDE (5 MG) 5 MG TABLET GT SCH (20:00)
[2017-02-27] MEDS: ALBUTEROL FS 2.5 MG/3 ML VIAL.NEB NEB SCH ×4 (02:13→19:30)
[2017-02-27] MEDS: IPRATROPIUM NEB FS 0.5 MG/2.5 ML AMPUL.NEB NEB SCH ×4 (02:13→19:30)
[2017-02-27] MEDS: BACLOFEN (10 MG) 10 MG TABLET GT SCH ×3 (05:07→21:17)
[2017-02-27] MEDS: LEVOTHYROXINE SODIUM 125 MCG TABLET GT SCH (05:43)
[2017-02-27] MEDS: GLYCOPYRROLATE 1 MG TABLET GT SCH ×3 (05:43→18:04)
[2017-02-27] MEDS: OMEPRAZOLE 20 MG GT SCH (05:43)
[2017-02-27] MEDS: DOCUSATE SODIUM LIQ 100 MG/10 ML UDC GT SCH (09:22)
[2017-02-27] MEDS: POLYVINYL ALCOHOL 15 ML BOTTLE EACHEYE SCH ×4 (09:22→21:17)
[2017-02-27] MEDS: MVI/MINERALS LIQUID (CEROVITE) GT SCH (09:23)
[2017-02-27] MEDS: AMIODARONE HCL 200 MG TABLET GT SCH (09:23)
[2017-02-27] MEDS: ASCORBIC ACID 500 MG TABLET GT SCH (09:23)
[2017-02-27] MEDS: ACIDOPHILUS/BULGARICUS 1 EACH TAB.CHEW GT SCH (09:23)
[2017-02-27] MEDS: HEPARIN SODIUM, PORCINE 5000 UNITS/1 ML VIAL SQ SCH ×2 (09:23→21:17)
[2017-02-27] MEDS: POTASSIUM CHLORIDE 20 MEQ/15 ML ML GT SCH (09:23)
[2017-02-27] MEDS: ZINC OXIDE 30 GM TUBE TP SCH ×4 (10:00→21:18)
[2017-02-27] MEDS: HYDROGEN PEROXIDE 480 ML BOTTLE TP SCH ×2 (10:00→21:17)
[2017-02-27] MEDS: NYSTATIN TOP POWDER 15 GM BOTTLE TP SCH ×2 (10:00→21:18)
--- NOTE | 2017-02-27 17:23 | NUR ---
Night charge nurse endorsed that pt's was upset because of the buttocks redness. Treatment of zinc oxide being administered. Received order for wound consult.
[2017-02-27 19:31] VITALS: BP 118/76
[2017-02-27] MEDS: FINASTERIDE (5 MG) 5 MG TABLET GT SCH (20:00)
[2017-02-28] MEDS: GLYCOPYRROLATE 1 MG TABLET GT SCH ×3 (00:08→11:17)
[2017-02-28] MEDS: IPRATROPIUM NEB FS 0.5 MG/2.5 ML AMPUL.NEB NEB SCH ×3 (01:40→13:37)
[2017-02-28] MEDS: ALBUTEROL FS 2.5 MG/3 ML VIAL.NEB NEB SCH ×3 (01:40→13:37)
[2017-02-28] MEDS: BACLOFEN (10 MG) 10 MG TABLET GT SCH ×2 (05:19→13:00)
[2017-02-28] MEDS: OMEPRAZOLE 20 MG GT SCH (05:48)
[2017-02-28] MEDS: LEVOTHYROXINE SODIUM 125 MCG TABLET GT SCH (05:48)
[2017-02-28 07:35] VITALS: BP 110/68
[2017-02-28] MEDS: ZINC OXIDE 30 GM TUBE TP SCH ×2 (09:00)
[2017-02-28] MEDS: NYSTATIN TOP POWDER 15 GM BOTTLE TP SCH (09:00)
[2017-02-28] MEDS: POLYVINYL ALCOHOL 15 ML BOTTLE EACHEYE SCH ×2 (09:00→13:00)
[2017-02-28] MEDS: ASCORBIC ACID 500 MG TABLET GT SCH (09:00)
[2017-02-28] MEDS: HEPARIN SODIUM, PORCINE 5000 UNITS/1 ML VIAL SQ SCH (09:00)
[2017-02-28] MEDS: DOCUSATE SODIUM LIQ 100 MG/10 ML UDC GT SCH (09:00)
[2017-02-28] MEDS: POTASSIUM CHLORIDE 20 MEQ/15 ML ML GT SCH (09:00)
[2017-02-28] MEDS: MVI/MINERALS LIQUID (CEROVITE) GT SCH (09:00)
[2017-02-28] MEDS: AMIODARONE HCL 200 MG TABLET GT SCH (09:00)
[2017-02-28] MEDS: ACIDOPHILUS/BULGARICUS 1 EACH TAB.CHEW GT SCH (09:00)
[2017-02-28] MEDS: HYDROGEN PEROXIDE 480 ML BOTTLE TP SCH (09:00)
--- NOTE | 2017-02-28 10:52 | NUR ---
WOUND CARE CONSULT: PT SEEN FOR REDNESS/EXCORIATION TO BUTTOCKS. RECOMMENDATIONS MADE FOR LOTRIMIN CREAM FOLLOWED BY ZINC OXIDE,COVER WITH MEPILEX. DISCUSSED WITH NURSING STAFF. WILL SEE PRN. IN AGREEMENT WITH PLAN OF CARE.
[2017-02-28] MEDS: ACETAMINOPHEN 650 MG/20 ML UDC- FOR SA PATIENTS ONLY GT PRN ×2 (12:36→14:52)
--- NOTE | 2017-02-28 12:55 | NUR ---
Notified Dr. Paniagua regarding patient's condition with episode of vomiting x3, T 102.8, 106/66, 24, HR 143 with 93% O2 sat on CA, F102 at 28%. Dr. Paniagua said to notify Dr. Baljinder Reeder to admit patient to inpatient. Notified Dr.Tim Reeder who directed this nurse to call social organization professor physician for [facility]. Paged social organization professor for [facility] group awaiting for return call. Meanwhile notified Mrs. Bradley regarding the transfer.
--- NOTE | 2017-02-28 13:30 | NUR ---
Spoke Dr. Richard regarding patient's condition, with episode of vomiting x3, T 102.8, 106/66, 24, HR 143 with 93% O2 sat on CA, F102 at 28%. In no s/s of acute respiratory or cardio distress. New order given to do stat labs and Zofran 4 mg. IV. MD will come and assess patient and decide where to transfer the patient. Orders noted and carried out.
[2017-02-28 14:06] LABS: HEMATOCRIT 41 % (39-51); LYMPHOCYTES # (AUTO) 0.6 /CMM (0.8-4.8); LYMPHOCYTES % (AUTO) 2.4 % (20.0-44.0); MEAN CORPUSCULAR HEMOGLOBIN 25 PG (26.0-33.0); MEAN CORPUSCULAR HGB CONC 32 g/dl (31.0-36.0); MEAN CORPUSCULAR VOLUME 78 fL (80-96); MONOCYTES % (AUTO) 7.8 % (2.0-12.0); NEUTROPHILS # (AUTO) 23.1 /CMM (1.8-8.9); NEUTROPHILS % (AUTO) 89.8 % (43.0-81.0); PLATELET COUNT (AUTO) 296 /CMM (150-450); RDW COEFFICIENT OF VARIATION 18.9 (11.5-15.0); RED BLOOD CELL COUNT(AUTO) 5.23 MIL/uL (4.5-6.0); WHITE BLOOD COUNT (AUTO) 25.8 K/uL (4.3-11.0)
[2017-02-28 14:15] LABS: CALCIUM, SERUM 9.6 mg/dL (8.5-10.1); CREATININE 2.1 mg/dL (0.6-1.3); POTASSIUM 4.4 mmol/L (3.5-5.1)
[2017-02-28 14:19] LABS: MAGNESIUM 1.9 mg/dL (1.8-2.4)
--- NOTE | 2017-02-28 14:19 | NUR ---
Obtain order from Dr. Baljinder Reeder for midline insertion, residential treatment staff attempted to insert HL but unsuccessful. Nursing inside sales supervisor to notify PICC line nurse for midline insertion, meanwhile ICU nurse inserted HL in the R antecubital, G #22, with good blood return. IV Zofran 4 mg administered as ordered. Dr. Richard at the bedside assessed patient's condition. She ordered CXR, urine culture & order to transfer patient in Telemetry as soon as bed is available. Re-inserted a new F/C, existing F/C noted to be leaking. Urine draining well but with blood clots present. Called Telemetry, spoke with César RN she stated the room is not ready yet and will call back when available.
[2017-02-28 14:23] LABS: BAND % (MANUAL) 13 % (0.0-5.0); LYMPHOCYTES % (MANUAL) 1 % (16-48); MONOCYTES % (MANUAL) 4 % (0-11.0); NEUTROPHILS % (MANUAL) 82 (42-76)
[2017-02-28] MEDS ORDERED: ONDANSETRON HCL/PF 4 MG/2 ML VIAL IV PRN (14:30)
--- NOTE | 2017-02-28 16:10 | NUR ---
Resident transferred to Room 304-1, accompanied by RT and RN. Medication reconciliation , copy of recent labs, H&P, MD's progress notes, copy of physician's order were given to nurse DAQUAN Lindsey with report. Urine culture ordered by Dr. Richard in subacute will be reordered in the patient's current account in Telemetry. Urine specimen collected & gave it to his nurse. CXRY was done using subacute account #. Tylenol PRN given, rechecked T before transfer, remain high at 102. Informed receiving nurse to notify MD of low Phos level and elevated WBC. Resident's , Fanny notified of patient's new room number.
[2017-02-28 19:02] LABS: APPEARANCE,URINE SL CLOUDY (CLEAR); BILIRUBIN,URINE 1+ (NEGATIVE); BLOOD, URINE 3+ Ery/uL (NEGATIVE); COLOR,URINE YELLOW (YELLOW); KETONES,URINE NEGATIVE (NEGATIVE); LEUKOCYTE ESTERASE ,URINE 2+ (NEGATIVE); NITRITE, URINE NEGATIVE (NEGATIVE); PH,URINE 8.5 (5.0-8.0); PROTEIN,URINE 2+ mg/dl (NEGATIVE); UGLUCOSE NEGATIVE (NEGATIVE)
[2017-02-28 19:15] LABS: BACTERIA,URINE Few /HPF (None Seen); RBC,URINE 51-80 /HPF (0-2); SQUAMOUS EPITHELIAL CELL,UR None Seen /HPF (None Seen); WBC,URINE 21-50 /HPF (0-3)
[2017-02-28 19:16] LABS: MUCUS,URINE Many /LPF (None Seen)
[2017-02-28] MEDS ORDERED: CLOTRIMAZOLE 1% 15 GM TUBE TP SCH (21:00)
[2017-02-28] MEDS ORDERED: ZINC OXIDE 30 GM TUBE TP SCH (21:00)
[2017-03-01] MEDS: IPRATROPIUM NEB FS 0.5 MG/2.5 ML AMPUL.NEB NEB SCH (01:30)
[2017-03-01] MEDS: ALBUTEROL FS 2.5 MG/3 ML VIAL.NEB NEB SCH (01:30)
[2017-03-01] MEDS ORDERED: CLOT15CR35 TP (17:33)
[2017-03-01] MEDS ORDERED: NYST60PO TP (17:33)
[2017-03-01] MEDS ORDERED: POTA10CA43 GT (17:33)
[2017-03-01] MEDS ORDERED: ACID1TAB12 GT (17:33)
[2017-03-01] MEDS ORDERED: BACL10TA GT (17:33)
[2017-03-01] MEDS ORDERED: MAG30ORA GT (17:33)
[2017-03-01] MEDS ORDERED: HEPA10009 SQ (17:33)
[2017-03-01] MEDS ORDERED: ACET650S26 GT (17:33)
[2017-03-01] MEDS ORDERED: MAGN400O6 GT (17:33)
[2017-03-01] MEDS ORDERED: POLY15DR40 EACHEYE (17:33)
[2017-03-01] MEDS ORDERED: HYDR1SOL TP (17:33)
[2017-03-01] MEDS ORDERED: LEVO125T8 GT (17:33)
[2017-03-06] MEDS: LEVOTHYROXINE SODIUM 125 MCG TABLET GT SCH (06:00)
[2017-03-06] MEDS: OMEPRAZOLE 20 MG GT SCH (06:00)
[2017-03-06 19:50] VITALS: BP 134/76
[2017-03-06] MEDS: FINASTERIDE (5 MG) 5 MG TABLET GT SCH (20:00)
--- NOTE | 2017-03-06 20:00 | NUR ---
READMITTED PATIENT FROM [facility] WITH ADMITTING DX. OF PNA AND UTI, PATIENT TRANSPORTED BY [facility] STAFF AND WITH 3 PERSONS ASSISTANCE, PATIENT TRANSFERRED FROM BED TO BED SAFELY. PATIENT AWAKE, NON VERBAL, NO SOB, NO ACUTE DISTRESS, BREATHING EVEN AND UNLABORED, NO S/S OF PAIN AND DISCOMFORT, HEAD TO TOE ASSESSMENT DONE, PICTURES DONE, NOTIFIED DR. DONAHUE OF THE ADMISSION WITH ORDER TO RESUME PREVIOUS ORDER AND PER IVELISSE, CONTINUE THE ANTIBIOTIC ORDER X 5 DAYS NOTED AND CARRIED OUT. NOTIFIED ABOUT THE ADMISSION. KEPT PATIENT CLEAN, DRY AND COMFORTABLE, WILL CONTINUE TO MONITOR
[2017-03-06] MEDS: BACLOFEN (10 MG) 10 MG TABLET GT SCH (21:00)
[2017-03-06] MEDS: HYDROGEN PEROXIDE 480 ML BOTTLE TP SCH (21:00)
[2017-03-06] MEDS ORDERED: MEROPENEM 1 G in IV NS 0.9% 100 ML IV ONE (21:00)
[2017-03-06] MEDS: HEPARIN SODIUM, PORCINE 5000 UNITS/1 ML VIAL SQ SCH (21:00)
[2017-03-06] MEDS: ZINC OXIDE 30 GM TUBE TP SCH (21:00)
[2017-03-06] MEDS ORDERED: METRONIDAZOLE 500MG/ NS 100ML 0 ML IV ONE (22:03)
[2017-03-06] MEDS ORDERED: METRONIDAZOLE 250 MG TABLET ONE (22:04)
[2017-03-06] MEDS: MEROPENEM 1 G in IV NS 0.9% 100 ML IV SCH (22:46)
[2017-03-06] MEDS: METRONIDAZOLE 500 MG TABLET PO SCH (22:46)
[2017-03-06] MEDS: GLYCOPYRROLATE 1 MG TABLET GT SCH (23:52)
[2017-03-07 00:10] VITALS: BP 123/60
[2017-03-07] MEDS: IPRATROPIUM NEB FS 0.5 MG/2.5 ML AMPUL.NEB NEB SCH ×4 (01:49→20:08)
[2017-03-07] MEDS: ALBUTEROL FS 2.5 MG/3 ML VIAL.NEB NEB SCH ×4 (01:49→20:08)
[2017-03-07 04:11] VITALS: BP 128/75
[2017-03-07] MEDS: OMEPRAZOLE 20 MG GT SCH (05:23)
[2017-03-07] MEDS: BACLOFEN (10 MG) 10 MG TABLET GT SCH ×3 (05:23→21:12)
[2017-03-07] MEDS: GLYCOPYRROLATE 1 MG TABLET GT SCH ×4 (05:23→23:33)
[2017-03-07] MEDS: LEVOTHYROXINE SODIUM 125 MCG TABLET GT SCH (05:23)
[2017-03-07] MEDS ORDERED: METRONIDAZOLE 500 MG TABLET ONE (05:24)
[2017-03-07] MEDS: METRONIDAZOLE 500 MG TABLET PO SCH ×3 (05:28→21:12)
[2017-03-07] MEDS: MEROPENEM 1 G in IV NS 0.9% 100 ML IV SCH ×3 (05:50→21:04)
[2017-03-07 08:26] VITALS: BP 116/69
[2017-03-07] MEDS: HYDROGEN PEROXIDE 480 ML BOTTLE TP SCH ×2 (09:00→21:12)
[2017-03-07] MEDS: NYSTATIN TOP POWDER 15 GM BOTTLE TP SCH ×2 (09:00→21:13)
[2017-03-07] MEDS: ACIDOPHILUS/BULGARICUS 1 EACH TAB.CHEW GT SCH (09:00)
[2017-03-07] MEDS: DOCUSATE SODIUM LIQ 100 MG/10 ML UDC GT SCH (09:00)
[2017-03-07] MEDS: AMIODARONE HCL 200 MG TABLET GT SCH (09:00)
[2017-03-07] MEDS: ASCORBIC ACID 500 MG TABLET GT SCH (09:00)
[2017-03-07] MEDS: POTASSIUM CHLORIDE 20 MEQ/15 ML ML GT SCH (09:00)
[2017-03-07] MEDS: MVI/MINERALS LIQUID (CEROVITE) GT SCH (09:00)
[2017-03-07] MEDS: HEPARIN SODIUM, PORCINE 5000 UNITS/1 ML VIAL SQ SCH ×2 (09:38→21:12)
[2017-03-07] MEDS: VANCOMYCIN 0.75 GM in IV D5W 250 ML IV SCH (12:56)
[2017-03-07] MEDS: POLYVINYL ALCOHOL 15 ML BOTTLE EACHEYE SCH ×3 (13:40→21:12)
--- NOTE | 2017-03-07 15:33 | NUR ---
Resident's provided SW with contact to [facility] (Julian Meyer Jr- [phone]) should resident pass. She stated that arrangements have been made and that if she is not immediately available, to please call [facility] so that they can come and lemon picker the resident. Informed charge nurse and put contact information in the front of resident's chart.
[2017-03-07] MEDS: FINASTERIDE (5 MG) 5 MG TABLET GT SCH (20:00)
[2017-03-07] MEDS: SENNOSIDES 8.6 MG TABLET PO SCH (21:13)
[2017-03-07] MEDS: CLOTRIMAZOLE 1% 15 GM TUBE TP SCH (21:13)
[2017-03-07 23:43] VITALS: BP 143/79
[2017-03-08] MEDS: ALBUTEROL FS 2.5 MG/3 ML VIAL.NEB NEB SCH ×4 (01:43→19:50)
[2017-03-08] MEDS: IPRATROPIUM NEB FS 0.5 MG/2.5 ML AMPUL.NEB NEB SCH ×4 (01:43→19:50)
[2017-03-08] MEDS: MEROPENEM 1 G in IV NS 0.9% 100 ML IV SCH ×3 (04:48→20:54)
[2017-03-08] MEDS: OMEPRAZOLE 20 MG GT SCH (05:14)
[2017-03-08] MEDS: BACLOFEN (10 MG) 10 MG TABLET GT SCH ×3 (05:14→20:43)
[2017-03-08] MEDS: GLYCOPYRROLATE 1 MG TABLET GT SCH ×4 (05:14→23:28)
[2017-03-08] MEDS: RENAL NOVASOURCE 1,000 ML BOTTLE GT PRN (05:14)
[2017-03-08] MEDS: LEVOTHYROXINE SODIUM 125 MCG TABLET GT SCH (05:14)
[2017-03-08] MEDS: METRONIDAZOLE 500 MG TABLET PO SCH ×3 (05:14→20:43)
[2017-03-08] MEDS: VANCOMYCIN 0.75 GM in IV D5W 250 ML IV SCH (05:48)
[2017-03-08 07:48] VITALS: BP 114/71
[2017-03-08] MEDS: DOCUSATE SODIUM LIQ 100 MG/10 ML UDC GT SCH (09:31)
[2017-03-08] MEDS: POLYVINYL ALCOHOL 15 ML BOTTLE EACHEYE SCH ×4 (09:31→20:43)
[2017-03-08] MEDS: MVI/MINERALS LIQUID (CEROVITE) GT SCH (09:32)
[2017-03-08] MEDS: ACIDOPHILUS/BULGARICUS 1 EACH TAB.CHEW GT SCH (09:32)
[2017-03-08] MEDS: AMIODARONE HCL 200 MG TABLET GT SCH (09:32)
[2017-03-08] MEDS: ASCORBIC ACID 500 MG TABLET GT SCH (09:32)
[2017-03-08] MEDS: HEPARIN SODIUM, PORCINE 5000 UNITS/1 ML VIAL SQ SCH ×2 (09:32→20:44)
[2017-03-08] MEDS: POTASSIUM CHLORIDE 20 MEQ/15 ML ML GT SCH (09:32)
[2017-03-08] MEDS: CLOTRIMAZOLE 1% 15 GM TUBE TP SCH ×2 (11:00→20:44)
[2017-03-08] MEDS: HYDROGEN PEROXIDE 480 ML BOTTLE TP SCH ×2 (11:00→20:44)
[2017-03-08] MEDS: NYSTATIN TOP POWDER 15 GM BOTTLE TP SCH ×2 (11:00→20:44)
--- NOTE | 2017-03-08 14:20 | NUR ---
Seen and examined by Dr Paniagua with new order repeat CBC and BMP in am order noted and carried out.Resident and made aware.
--- NOTE | 2017-03-08 15:21 | NUR ---
Resident's , in passing, mentioned to the SW that she was thinking about hospice but that because the resident is not in any pain, thinks he should stay in the subacute unit until he passes. She stated that she does not want to move the resident to the medical floor or to another facility and that if he is not in pain, she will put off initiating hospice care. SW informed her that she can provide information relating to hospice care should she ever decide she needs it.
--- NOTE | 2017-03-08 15:40 | NUR ---
Seen and examined by Vivian MAE with no new order.
[2017-03-08 19:49] VITALS: BP 105/59
[2017-03-08] MEDS: FINASTERIDE (5 MG) 5 MG TABLET GT SCH (20:43)
[2017-03-08] MEDS: SENNOSIDES 8.6 MG TABLET PO SCH (21:41)
[2017-03-09 00:10] LABS: CREATININE 1.5 mg/dL (0.6-1.3)
[2017-03-09] MEDS: VANCOMYCIN 0.75 GM in IV D5W 250 ML IV SCH ×2 (00:21→17:39)
[2017-03-09] MEDS: IPRATROPIUM NEB FS 0.5 MG/2.5 ML AMPUL.NEB NEB SCH ×4 (01:54→19:30)
[2017-03-09] MEDS: ALBUTEROL FS 2.5 MG/3 ML VIAL.NEB NEB SCH ×4 (01:54→19:30)
[2017-03-09] MEDS: MEROPENEM 1 G in IV NS 0.9% 100 ML IV SCH ×3 (04:52→21:06)
[2017-03-09] MEDS: METRONIDAZOLE 500 MG TABLET PO SCH ×3 (05:24→21:20)
[2017-03-09] MEDS: RENAL NOVASOURCE 1,000 ML BOTTLE GT PRN (05:24)
[2017-03-09] MEDS: GLYCOPYRROLATE 1 MG TABLET GT SCH ×4 (05:24→23:33)
[2017-03-09] MEDS: MAGNESIUM HYDROXIDE 30 ML UDC GT PRN ×2 (05:24→17:36)
[2017-03-09] MEDS: LEVOTHYROXINE SODIUM 125 MCG TABLET GT SCH (05:24)
[2017-03-09] MEDS: BACLOFEN (10 MG) 10 MG TABLET GT SCH ×3 (05:24→21:20)
[2017-03-09] MEDS: OMEPRAZOLE 20 MG GT SCH (05:24)
[2017-03-09 07:15] LABS: BASOPHILS # (AUTO) 0.1 /CMM (0.0-0.2); BASOPHILS % (AUTO) 0.6 % (0.0-2.0); EOSINOPHILS # (AUTO) 0.4 /CMM (0.0-0.7); EOSINOPHILS % (AUTO) 3.5 % (0.0-6.0); HEMATOCRIT 34 % (39-51); LYMPHOCYTES # (AUTO) 3.1 /CMM (0.8-4.8); LYMPHOCYTES % (AUTO) 25.9 % (20.0-44.0); MEAN CORPUSCULAR HEMOGLOBIN 26 PG (26.0-33.0); MEAN CORPUSCULAR HGB CONC 32 g/dl (31.0-36.0); MEAN CORPUSCULAR VOLUME 80 fL (80-96); MONOCYTES # (AUTO) 0.8 /CMM (0.1-1.30); MONOCYTES % (AUTO) 6.8 % (2.0-12.0); NEUTROPHILS # (AUTO) 7.6 /CMM (1.8-8.9); NEUTROPHILS % (AUTO) 63.2 % (43.0-81.0); PLATELET COUNT (AUTO) 220 /CMM (150-450); RDW COEFFICIENT OF VARIATION 18.9 (11.5-15.0); RED BLOOD CELL COUNT(AUTO) 4.24 MIL/uL (4.5-6.0)
[2017-03-09 07:34] LABS: CALCIUM, SERUM 8.4 mg/dL (8.5-10.1); CREATININE 1.3 mg/dL (0.6-1.3); POTASSIUM 4.2 mmol/L (3.5-5.1)
[2017-03-09 07:52] VITALS: BP 129/64
[2017-03-09] MEDS: AMIODARONE HCL 200 MG TABLET GT SCH (08:11)
[2017-03-09] MEDS: ACIDOPHILUS/BULGARICUS 1 EACH TAB.CHEW GT SCH (08:11)
[2017-03-09] MEDS: ASCORBIC ACID 500 MG TABLET GT SCH (08:11)
[2017-03-09] MEDS: POLYVINYL ALCOHOL 15 ML BOTTLE EACHEYE SCH ×4 (08:11→21:20)
[2017-03-09] MEDS: MVI/MINERALS LIQUID (CEROVITE) GT SCH (08:11)
[2017-03-09] MEDS: DOCUSATE SODIUM LIQ 100 MG/10 ML UDC GT SCH (08:11)
[2017-03-09] MEDS: POTASSIUM CHLORIDE 20 MEQ/15 ML ML GT SCH (08:11)
[2017-03-09] MEDS: HEPARIN SODIUM, PORCINE 5000 UNITS/1 ML VIAL SQ SCH ×2 (08:12→21:20)
[2017-03-09] MEDS: CLOTRIMAZOLE 1% 15 GM TUBE TP SCH ×2 (09:00→21:20)
[2017-03-09] MEDS: HYDROGEN PEROXIDE 480 ML BOTTLE TP SCH ×2 (09:00→21:20)
[2017-03-09] MEDS: NYSTATIN TOP POWDER 15 GM BOTTLE TP SCH ×2 (09:00→21:20)
--- NOTE | 2017-03-09 11:25 | NUR ---
Received order to continue Vancomycin 750 mg q 18 hours to complete 5 days of therapy, no more Vancomycin trough needed. Addendum: 03/09/17 at 1217 by NOAH OGDEN RN Vancomycin trough 17
[2017-03-09] MEDS: POLYETHYLENE GLYCOL 3350 17 GM POWD.PACK GT SCH (13:14)
--- NOTE | 2017-03-09 14:08 | NUR ---
Received order from Dr. 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
[2017-03-09 19:25] VITALS: BP 120/75
[2017-03-09] MEDS: FINASTERIDE (5 MG) 5 MG TABLET GT SCH (20:00)
[2017-03-09] MEDS: SENNOSIDES 8.6 MG TABLET PO SCH (21:20)
[2017-03-10] MEDS: ALBUTEROL FS 2.5 MG/3 ML VIAL.NEB NEB SCH ×5 (00:47→19:26)
[2017-03-10] MEDS: IPRATROPIUM NEB FS 0.5 MG/2.5 ML AMPUL.NEB NEB SCH ×5 (00:47→19:26)
[2017-03-10] MEDS: MEROPENEM 1 G in IV NS 0.9% 100 ML IV SCH ×3 (05:05→20:57)
[2017-03-10] MEDS: METRONIDAZOLE 500 MG TABLET PO SCH ×3 (05:30→20:42)
[2017-03-10] MEDS: LEVOTHYROXINE SODIUM 125 MCG TABLET GT SCH (05:30)
[2017-03-10] MEDS: GLYCOPYRROLATE 1 MG TABLET GT SCH ×4 (05:30→23:45)
[2017-03-10] MEDS: BACLOFEN (10 MG) 10 MG TABLET GT SCH ×3 (05:30→20:42)
[2017-03-10] MEDS: OMEPRAZOLE 20 MG GT SCH (05:30)
[2017-03-10] MEDS: BISACODYL SUPP (10 MG) 10 MG/SUPP.RECT SUPP.RECT RC PRN (05:31)
[2017-03-10 07:48] VITALS: BP 121/76
[2017-03-10] MEDS: CLOTRIMAZOLE 1% 15 GM TUBE TP SCH ×2 (09:00→20:43)
[2017-03-10] MEDS: NYSTATIN TOP POWDER 15 GM BOTTLE TP SCH ×2 (09:00→20:43)
[2017-03-10] MEDS: AMIODARONE HCL 200 MG TABLET GT SCH (09:43)
[2017-03-10] MEDS: ACIDOPHILUS/BULGARICUS 1 EACH TAB.CHEW GT SCH (09:43)
[2017-03-10] MEDS: DOCUSATE SODIUM LIQ 100 MG/10 ML UDC GT SCH (09:43)
[2017-03-10] MEDS: POLYVINYL ALCOHOL 15 ML BOTTLE EACHEYE SCH ×4 (09:43→20:42)
[2017-03-10] MEDS: POLYETHYLENE GLYCOL 3350 17 GM POWD.PACK GT SCH (09:43)
[2017-03-10] MEDS: ASCORBIC ACID 500 MG TABLET GT SCH (09:44)
[2017-03-10] MEDS: HYDROGEN PEROXIDE 480 ML BOTTLE TP SCH ×2 (09:44→20:42)
[2017-03-10] MEDS: HEPARIN SODIUM, PORCINE 5000 UNITS/1 ML VIAL SQ SCH ×2 (09:44→20:42)
[2017-03-10] MEDS: POTASSIUM CHLORIDE 20 MEQ/15 ML ML GT SCH (09:44)
[2017-03-10] MEDS: MVI/MINERALS LIQUID (CEROVITE) GT SCH (09:44)
[2017-03-10] MEDS: RENAL NOVASOURCE 1,000 ML BOTTLE GT PRN (12:44)
[2017-03-10] MEDS: VANCOMYCIN 0.75 GM in IV D5W 250 ML IV SCH (12:54)
[2017-03-10 19:35] VITALS: BP 132/88
[2017-03-10] MEDS: FINASTERIDE (5 MG) 5 MG TABLET GT SCH (20:42)
[2017-03-10] MEDS: SENNOSIDES 8.6 MG TABLET PO SCH (21:30)
[2017-03-11] MEDS: ALBUTEROL FS 2.5 MG/3 ML VIAL.NEB NEB SCH ×4 (01:22→19:29)
[2017-03-11] MEDS: IPRATROPIUM NEB FS 0.5 MG/2.5 ML AMPUL.NEB NEB SCH ×4 (01:22→19:29)
[2017-03-11] MEDS: MEROPENEM 1 G in IV NS 0.9% 100 ML IV SCH ×3 (05:01→21:00)
[2017-03-11] MEDS: METRONIDAZOLE 500 MG TABLET PO SCH ×3 (05:28→20:56)
[2017-03-11] MEDS: BACLOFEN (10 MG) 10 MG TABLET GT SCH ×3 (05:28→20:56)
[2017-03-11] MEDS: OMEPRAZOLE 20 MG GT SCH (05:28)
[2017-03-11] MEDS: GLYCOPYRROLATE 1 MG TABLET GT SCH ×4 (05:28→23:26)
[2017-03-11] MEDS: LEVOTHYROXINE SODIUM 125 MCG TABLET GT SCH (05:28)
[2017-03-11] MEDS: VANCOMYCIN 0.75 GM in IV D5W 250 ML IV SCH (06:07)
[2017-03-11 08:00] VITALS: BP 118/70
[2017-03-11] MEDS: DOCUSATE SODIUM LIQ 100 MG/10 ML UDC GT SCH (09:11)
[2017-03-11] MEDS: POLYVINYL ALCOHOL 15 ML BOTTLE EACHEYE SCH ×4 (09:11→20:56)
[2017-03-11] MEDS: ACIDOPHILUS/BULGARICUS 1 EACH TAB.CHEW GT SCH (09:12)
[2017-03-11] MEDS: ASCORBIC ACID 500 MG TABLET GT SCH (09:12)
[2017-03-11] MEDS: AMIODARONE HCL 200 MG TABLET GT SCH (09:12)
[2017-03-11] MEDS: POLYETHYLENE GLYCOL 3350 17 GM POWD.PACK GT SCH (09:12)
[2017-03-11] MEDS: MVI/MINERALS LIQUID (CEROVITE) GT SCH (09:12)
[2017-03-11] MEDS: POTASSIUM CHLORIDE 20 MEQ/15 ML ML GT SCH (09:12)
[2017-03-11] MEDS: HEPARIN SODIUM, PORCINE 5000 UNITS/1 ML VIAL SQ SCH ×2 (09:13→20:59)
[2017-03-11] MEDS: CLOTRIMAZOLE 1% 15 GM TUBE TP SCH ×2 (09:13→20:59)
[2017-03-11] MEDS: HYDROGEN PEROXIDE 480 ML BOTTLE TP SCH ×2 (09:13→20:59)
[2017-03-11] MEDS: NYSTATIN TOP POWDER 15 GM BOTTLE TP SCH ×2 (09:14→20:59)
[2017-03-11 19:59] VITALS: BP 107/70
[2017-03-11] MEDS: FINASTERIDE (5 MG) 5 MG TABLET GT SCH (20:56)
[2017-03-11] MEDS: SENNOSIDES 8.6 MG TABLET PO SCH (21:50)
[2017-03-11] MEDS: RENAL NOVASOURCE 1,000 ML BOTTLE GT PRN (23:24)
[2017-03-12] MEDS: VANCOMYCIN 0.75 GM in IV D5W 250 ML IV SCH ×2
[2017-03-12] MEDS: IPRATROPIUM NEB FS 0.5 MG/2.5 ML AMPUL.NEB NEB SCH ×4 (01:18→19:28)
[2017-03-12] MEDS: ALBUTEROL FS 2.5 MG/3 ML VIAL.NEB NEB SCH ×4 (01:18→19:28)
[2017-03-12] MEDS: GLYCOPYRROLATE 1 MG TABLET GT SCH ×3 (05:48→17:54)
[2017-03-12] MEDS: BACLOFEN (10 MG) 10 MG TABLET GT SCH ×3 (05:48→20:55)
[2017-03-12] MEDS: METRONIDAZOLE 500 MG TABLET PO SCH ×3 (05:48→20:56)
[2017-03-12] MEDS: LEVOTHYROXINE SODIUM 125 MCG TABLET GT SCH (05:49)
[2017-03-12] MEDS: OMEPRAZOLE 20 MG GT SCH (05:49)
[2017-03-12] MEDS: ASCORBIC ACID 500 MG TABLET GT SCH (09:26)
[2017-03-12] MEDS: AMIODARONE HCL 200 MG TABLET GT SCH (09:26)
[2017-03-12] MEDS: POLYVINYL ALCOHOL 15 ML BOTTLE EACHEYE SCH ×4 (09:26→20:55)
[2017-03-12] MEDS: POLYETHYLENE GLYCOL 3350 17 GM POWD.PACK GT SCH (09:26)
[2017-03-12] MEDS: POTASSIUM CHLORIDE 20 MEQ/15 ML ML GT SCH (09:26)
[2017-03-12] MEDS: DOCUSATE SODIUM LIQ 100 MG/10 ML UDC GT SCH (09:26)
[2017-03-12] MEDS: MVI/MINERALS LIQUID (CEROVITE) GT SCH (09:26)
[2017-03-12] MEDS: ACIDOPHILUS/BULGARICUS 1 EACH TAB.CHEW GT SCH (09:26)
[2017-03-12] MEDS: HEPARIN SODIUM, PORCINE 5000 UNITS/1 ML VIAL SQ SCH ×2 (09:27→20:56)
[2017-03-12] MEDS: HYDROGEN PEROXIDE 480 ML BOTTLE TP SCH ×2 (09:27→20:58)
[2017-03-12] MEDS: CLOTRIMAZOLE 1% 15 GM TUBE TP SCH ×2 (09:27→20:58)
[2017-03-12] MEDS: NYSTATIN TOP POWDER 15 GM BOTTLE TP SCH ×2 (09:28→20:58)
[2017-03-12 19:53] VITALS: BP 93/60
[2017-03-12] MEDS: FINASTERIDE (5 MG) 5 MG TABLET GT SCH (20:54)
[2017-03-12] MEDS: SENNOSIDES 8.6 MG TABLET PO SCH (21:30)
[2017-03-13] MEDS: GLYCOPYRROLATE 1 MG TABLET GT SCH ×4 (00:23→17:53)
[2017-03-13] MEDS: IPRATROPIUM NEB FS 0.5 MG/2.5 ML AMPUL.NEB NEB SCH ×4 (01:53→20:06)
[2017-03-13] MEDS: ALBUTEROL FS 2.5 MG/3 ML VIAL.NEB NEB SCH ×4 (01:53→20:06)
[2017-03-13] MEDS: BACLOFEN (10 MG) 10 MG TABLET GT SCH ×3 (05:56→20:57)
[2017-03-13] MEDS: LEVOTHYROXINE SODIUM 125 MCG TABLET GT SCH (05:57)
[2017-03-13] MEDS: OMEPRAZOLE 20 MG GT SCH (05:57)
[2017-03-13 08:18] VITALS: BP 110/60
[2017-03-13] MEDS: POLYVINYL ALCOHOL 15 ML BOTTLE EACHEYE SCH ×4 (08:30→20:57)
[2017-03-13] MEDS: DOCUSATE SODIUM LIQ 100 MG/10 ML UDC GT SCH (08:30)
[2017-03-13] MEDS: MVI/MINERALS LIQUID (CEROVITE) GT SCH (08:31)
[2017-03-13] MEDS: POLYETHYLENE GLYCOL 3350 17 GM POWD.PACK GT SCH (08:31)
[2017-03-13] MEDS: POTASSIUM CHLORIDE 20 MEQ/15 ML ML GT SCH (08:31)
[2017-03-13] MEDS: AMIODARONE HCL 200 MG TABLET GT SCH (08:31)
[2017-03-13] MEDS: ASCORBIC ACID 500 MG TABLET GT SCH (08:31)
[2017-03-13] MEDS: ACIDOPHILUS/BULGARICUS 1 EACH TAB.CHEW GT SCH (08:31)
[2017-03-13] MEDS: HEPARIN SODIUM, PORCINE 5000 UNITS/1 ML VIAL SQ SCH ×2 (08:32→20:57)
[2017-03-13] MEDS: NYSTATIN TOP POWDER 15 GM BOTTLE TP SCH ×2 (09:00→20:58)
[2017-03-13] MEDS: CLOTRIMAZOLE 1% 15 GM TUBE TP SCH ×2 (09:00→20:57)
[2017-03-13] MEDS: HYDROGEN PEROXIDE 480 ML BOTTLE TP SCH ×2 (09:00→20:57)
[2017-03-13] MEDS: RENAL NOVASOURCE 1,000 ML BOTTLE GT PRN (13:28)
[2017-03-13 19:44] VITALS: BP 120/76
[2017-03-13] MEDS: FINASTERIDE (5 MG) 5 MG TABLET GT SCH (20:57)
[2017-03-13] MEDS: SENNOSIDES 8.6 MG TABLET PO SCH (22:39)
[2017-03-14] MEDS: GLYCOPYRROLATE 1 MG TABLET GT SCH ×5 (00:25→23:48)
[2017-03-14] MEDS: IPRATROPIUM NEB FS 0.5 MG/2.5 ML AMPUL.NEB NEB SCH ×4 (02:27→20:11)
[2017-03-14] MEDS: ALBUTEROL FS 2.5 MG/3 ML VIAL.NEB NEB SCH ×4 (02:27→20:11)
[2017-03-14] MEDS: LEVOTHYROXINE SODIUM 125 MCG TABLET GT SCH (05:53)
[2017-03-14] MEDS: BACLOFEN (10 MG) 10 MG TABLET GT SCH ×3 (05:53→20:49)
[2017-03-14] MEDS: OMEPRAZOLE 20 MG GT SCH (05:53)
[2017-03-14 08:04] VITALS: BP 143/102
[2017-03-14] MEDS: MVI/MINERALS LIQUID (CEROVITE) GT SCH (08:37)
[2017-03-14] MEDS: POTASSIUM CHLORIDE 20 MEQ/15 ML ML GT SCH (08:37)
[2017-03-14] MEDS: POLYETHYLENE GLYCOL 3350 17 GM POWD.PACK GT SCH (08:37)
[2017-03-14] MEDS: AMIODARONE HCL 200 MG TABLET GT SCH (08:37)
[2017-03-14] MEDS: POLYVINYL ALCOHOL 15 ML BOTTLE EACHEYE SCH ×4 (08:37→20:49)
[2017-03-14] MEDS: ACIDOPHILUS/BULGARICUS 1 EACH TAB.CHEW GT SCH (08:37)
[2017-03-14] MEDS: DOCUSATE SODIUM LIQ 100 MG/10 ML UDC GT SCH (08:37)
[2017-03-14] MEDS: ASCORBIC ACID 500 MG TABLET GT SCH (08:37)
[2017-03-14] MEDS: HEPARIN SODIUM, PORCINE 5000 UNITS/1 ML VIAL SQ SCH ×2 (08:38→20:49)
[2017-03-14] MEDS: HYDROGEN PEROXIDE 480 ML BOTTLE TP SCH ×2 (08:38→21:52)
[2017-03-14] MEDS: CLOTRIMAZOLE 1% 15 GM TUBE TP SCH ×2 (08:38→21:52)
[2017-03-14] MEDS: NYSTATIN TOP POWDER 15 GM BOTTLE TP SCH ×2 (08:39→21:52)
--- NOTE | 2017-03-14 11:04 | NUR ---
Cat from [facility] called ([phone]), requested information/medical records for the patient. SW forwarded call to medical records. SW informed who stated that they are paying the resident's care when he goes to the acute side and it is okay to release information to her. Will have sign release of information/
[2017-03-14] MEDS: MAGNESIUM HYDROXIDE 30 ML UDC GT PRN (17:00)
[2017-03-14 20:06] VITALS: BP 114/63
[2017-03-14] MEDS: FINASTERIDE (5 MG) 5 MG TABLET GT SCH (20:49)
[2017-03-14] MEDS: RENAL NOVASOURCE 1,000 ML BOTTLE GT PRN (20:52)
[2017-03-14] MEDS: SENNOSIDES 8.6 MG TABLET PO SCH (21:52)
[2017-03-15] MEDS: ALBUTEROL FS 2.5 MG/3 ML VIAL.NEB NEB SCH ×4 (01:40→19:57)
[2017-03-15] MEDS: IPRATROPIUM NEB FS 0.5 MG/2.5 ML AMPUL.NEB NEB SCH ×4 (01:40→19:57)
[2017-03-15] MEDS: BISACODYL SUPP (10 MG) 10 MG/SUPP.RECT SUPP.RECT RC PRN (01:58)
[2017-03-15] MEDS: LEVOTHYROXINE SODIUM 125 MCG TABLET GT SCH (05:43)
[2017-03-15] MEDS: BACLOFEN (10 MG) 10 MG TABLET GT SCH ×3 (05:43→21:00)
[2017-03-15] MEDS: GLYCOPYRROLATE 1 MG TABLET GT SCH ×3 (05:43→17:17)
[2017-03-15] MEDS: OMEPRAZOLE 20 MG GT SCH (05:43)
[2017-03-15 08:00] VITALS: BP 115/73
[2017-03-15] MEDS: AMIODARONE HCL 200 MG TABLET GT SCH (09:00)
[2017-03-15] MEDS: DOCUSATE SODIUM LIQ 100 MG/10 ML UDC GT SCH (09:00)
[2017-03-15] MEDS: POLYETHYLENE GLYCOL 3350 17 GM POWD.PACK GT SCH (09:00)
[2017-03-15] MEDS: POTASSIUM CHLORIDE 20 MEQ/15 ML ML GT SCH (09:00)
[2017-03-15] MEDS: POLYVINYL ALCOHOL 15 ML BOTTLE EACHEYE SCH ×4 (09:00→21:00)
[2017-03-15] MEDS: ACIDOPHILUS/BULGARICUS 1 EACH TAB.CHEW GT SCH (09:00)
[2017-03-15] MEDS: NYSTATIN TOP POWDER 15 GM BOTTLE TP SCH ×2 (09:00→21:00)
[2017-03-15] MEDS: HYDROGEN PEROXIDE 480 ML BOTTLE TP SCH ×2 (09:00→21:00)
[2017-03-15] MEDS: HEPARIN SODIUM, PORCINE 5000 UNITS/1 ML VIAL SQ SCH ×2 (09:00→21:00)
[2017-03-15] MEDS: MVI/MINERALS LIQUID (CEROVITE) GT SCH (09:00)
[2017-03-15] MEDS: ASCORBIC ACID 500 MG TABLET GT SCH (09:00)
[2017-03-15] MEDS: CLOTRIMAZOLE 1% 15 GM TUBE TP SCH ×2 (09:00→21:00)
[2017-03-15 19:28] VITALS: BP 114/73
[2017-03-15] MEDS: FINASTERIDE (5 MG) 5 MG TABLET GT SCH (20:00)
--- NOTE | 2017-03-15 20:00 | NUR ---
Endorsed by day shift charge pt had redness on the right knee.Picture taken and Mepilex dressing applied daily for skin protection. is aware and per redness is not there last night.Will continue to monitor.
--- NOTE | 2017-03-15 21:20 | NUR ---
approached me in the nursing station and asked me to check on her ,that according to her it's happened last night and was reported to her by the TEXTILE BAG SEWER in the morning.It was redness in the upper right shoulder,no bleeding noted.I told her Im not aware of that ,only the right knee redness.I took pictures of the sites,will continue to monitor. While in the room she don't stop talking about the TEXTILE BAG SEWER last night that she made a comment that" she don't know to do her job and she's not good and I don't like her"."She also said she don't have problem with [place] TEXTILE BAG SEWER'S only with the others"I told her she know her job but this is the first time that the TEXTILE BAG SEWER assigned to her and everyone has they own way of doing it.I also told her I can't assigned same TEXTILE BAG SEWER they have their rotation.She's not happy and keep talking,I left the room and she's talking to the TEXTILE BAG SEWER working with her .
[2017-03-15] MEDS: SENNOSIDES 8.6 MG TABLET PO SCH (22:03)
[2017-03-16] MEDS: GLYCOPYRROLATE 1 MG TABLET GT SCH ×4 (00:50→17:13)
[2017-03-16] MEDS: IPRATROPIUM NEB FS 0.5 MG/2.5 ML AMPUL.NEB NEB SCH ×4 (00:52→20:07)
[2017-03-16] MEDS: ALBUTEROL FS 2.5 MG/3 ML VIAL.NEB NEB SCH ×4 (00:52→20:07)
[2017-03-16] MEDS: BACLOFEN (10 MG) 10 MG TABLET GT SCH ×3 (05:00→21:36)
[2017-03-16] MEDS: LEVOTHYROXINE SODIUM 125 MCG TABLET GT SCH (06:12)
[2017-03-16] MEDS: OMEPRAZOLE 20 MG GT SCH (06:12)
[2017-03-16] MEDS: RENAL NOVASOURCE 1,000 ML BOTTLE GT PRN (06:12)
[2017-03-16 08:06] VITALS: BP 104/68
[2017-03-16] MEDS: MVI/MINERALS LIQUID (CEROVITE) GT SCH (09:00)
[2017-03-16] MEDS: NYSTATIN TOP POWDER 15 GM BOTTLE TP SCH ×2 (09:00→21:36)
[2017-03-16] MEDS: ACIDOPHILUS/BULGARICUS 1 EACH TAB.CHEW GT SCH (09:00)
[2017-03-16] MEDS: POLYETHYLENE GLYCOL 3350 17 GM POWD.PACK GT SCH (09:00)
[2017-03-16] MEDS: POTASSIUM CHLORIDE 20 MEQ/15 ML ML GT SCH (09:00)
[2017-03-16] MEDS: HYDROGEN PEROXIDE 480 ML BOTTLE TP SCH ×2 (09:00→21:36)
[2017-03-16] MEDS: ASCORBIC ACID 500 MG TABLET GT SCH (09:00)
[2017-03-16] MEDS: POLYVINYL ALCOHOL 15 ML BOTTLE EACHEYE SCH ×4 (09:00→21:36)
[2017-03-16] MEDS: HEPARIN SODIUM, PORCINE 5000 UNITS/1 ML VIAL SQ SCH ×2 (09:00→21:36)
[2017-03-16] MEDS: AMIODARONE HCL 200 MG TABLET GT SCH (09:00)
[2017-03-16] MEDS: DOCUSATE SODIUM LIQ 100 MG/10 ML UDC GT SCH (09:00)
[2017-03-16] MEDS: CLOTRIMAZOLE 1% 15 GM TUBE TP SCH ×2 (09:00→21:36)
--- NOTE | 2017-03-16 16:20 | NUR ---
Pt seen and examined by Dr. Paniagua. No new order given. at bedside
[2017-03-16 19:30] VITALS: BP 101/67
[2017-03-16] MEDS: FINASTERIDE (5 MG) 5 MG TABLET GT SCH (20:00)
[2017-03-16] MEDS: SENNOSIDES 8.6 MG TABLET PO SCH (21:36)
[2017-03-17] MEDS: GLYCOPYRROLATE 1 MG TABLET GT SCH ×5 (00:04→23:36)
[2017-03-17] MEDS: IPRATROPIUM NEB FS 0.5 MG/2.5 ML AMPUL.NEB NEB SCH ×4 (01:55→20:19)
[2017-03-17] MEDS: ALBUTEROL FS 2.5 MG/3 ML VIAL.NEB NEB SCH ×4 (01:55→20:19)
[2017-03-17] MEDS: LEVOTHYROXINE SODIUM 125 MCG TABLET GT SCH (05:50)
[2017-03-17] MEDS: BACLOFEN (10 MG) 10 MG TABLET GT SCH ×3 (05:50→21:28)
[2017-03-17] MEDS: OMEPRAZOLE 20 MG GT SCH (05:50)
[2017-03-17] MEDS: RENAL NOVASOURCE 1,000 ML BOTTLE GT PRN (05:51)
[2017-03-17] MEDS: BISACODYL SUPP (10 MG) 10 MG/SUPP.RECT SUPP.RECT RC PRN (07:04)
[2017-03-17 07:47] VITALS: BP 111/72
[2017-03-17] MEDS: DOCUSATE SODIUM LIQ 100 MG/10 ML UDC GT SCH (09:00)
[2017-03-17] MEDS: POLYETHYLENE GLYCOL 3350 17 GM POWD.PACK GT SCH (09:00)
[2017-03-17] MEDS: ACIDOPHILUS/BULGARICUS 1 EACH TAB.CHEW GT SCH (09:00)
[2017-03-17] MEDS: HEPARIN SODIUM, PORCINE 5000 UNITS/1 ML VIAL SQ SCH ×2 (09:00→21:28)
[2017-03-17] MEDS: MVI/MINERALS LIQUID (CEROVITE) GT SCH (09:00)
[2017-03-17] MEDS: ERGOCALCIFEROL (VITAMIN D2) 8,000 UNIT/ML GT SCH (09:00)
[2017-03-17] MEDS: ASCORBIC ACID 500 MG TABLET GT SCH (09:00)
[2017-03-17] MEDS: NYSTATIN TOP POWDER 15 GM BOTTLE TP SCH ×2 (09:00→21:28)
[2017-03-17] MEDS: POLYVINYL ALCOHOL 15 ML BOTTLE EACHEYE SCH ×4 (09:00→21:28)
[2017-03-17] MEDS ORDERED: ERGOCALCIFEROL (VITAMIN D2) 8,000 UNIT/ML GT SCH (09:00)
[2017-03-17] MEDS: HYDROGEN PEROXIDE 480 ML BOTTLE TP SCH ×2 (09:00→21:28)
[2017-03-17] MEDS: POTASSIUM CHLORIDE 20 MEQ/15 ML ML GT SCH (09:00)
[2017-03-17] MEDS: AMIODARONE HCL 200 MG TABLET GT SCH (09:00)
[2017-03-17] MEDS: CLOTRIMAZOLE 1% 15 GM TUBE TP SCH ×2 (09:00→21:28)
[2017-03-17 19:46] VITALS: BP 114/77
[2017-03-17] MEDS: FINASTERIDE (5 MG) 5 MG TABLET GT SCH (20:00)
[2017-03-17] MEDS: SENNOSIDES 8.6 MG TABLET PO SCH (21:28)
[2017-03-18] MEDS: IPRATROPIUM NEB FS 0.5 MG/2.5 ML AMPUL.NEB NEB SCH ×4 (01:09→19:29)
[2017-03-18] MEDS: ALBUTEROL FS 2.5 MG/3 ML VIAL.NEB NEB SCH ×4 (01:09→19:29)
[2017-03-18] MEDS: LEVOTHYROXINE SODIUM 125 MCG TABLET GT SCH (05:57)
[2017-03-18] MEDS: BACLOFEN (10 MG) 10 MG TABLET GT SCH ×3 (05:57→21:07)
[2017-03-18] MEDS: GLYCOPYRROLATE 1 MG TABLET GT SCH ×3 (05:57→17:58)
[2017-03-18] MEDS: OMEPRAZOLE 20 MG GT SCH (05:57)
[2017-03-18] MEDS: POTASSIUM CHLORIDE 20 MEQ/15 ML ML GT SCH (09:14)
[2017-03-18] MEDS: ASCORBIC ACID 500 MG TABLET GT SCH (09:14)
[2017-03-18] MEDS: POLYVINYL ALCOHOL 15 ML BOTTLE EACHEYE SCH ×4 (09:14→21:07)
[2017-03-18] MEDS: POLYETHYLENE GLYCOL 3350 17 GM POWD.PACK GT SCH (09:14)
[2017-03-18] MEDS: MVI/MINERALS LIQUID (CEROVITE) GT SCH (09:14)
[2017-03-18] MEDS: DOCUSATE SODIUM LIQ 100 MG/10 ML UDC GT SCH (09:14)
[2017-03-18] MEDS: AMIODARONE HCL 200 MG TABLET GT SCH (09:14)
[2017-03-18] MEDS: ACIDOPHILUS/BULGARICUS 1 EACH TAB.CHEW GT SCH (09:14)
[2017-03-18] MEDS: CLOTRIMAZOLE 1% 15 GM TUBE TP SCH ×2 (09:15→21:10)
[2017-03-18] MEDS: HEPARIN SODIUM, PORCINE 5000 UNITS/1 ML VIAL SQ SCH ×2 (09:15→21:10)
[2017-03-18] MEDS: HYDROGEN PEROXIDE 480 ML BOTTLE TP SCH ×2 (09:15→21:10)
[2017-03-18] MEDS: NYSTATIN TOP POWDER 15 GM BOTTLE TP SCH ×2 (09:15→21:10)
[2017-03-18] MEDS: RENAL NOVASOURCE 1,000 ML BOTTLE GT PRN (12:04)
[2017-03-18 19:51] VITALS: BP 124/77
[2017-03-18] MEDS: FINASTERIDE (5 MG) 5 MG TABLET GT SCH (20:00)
[2017-03-18] MEDS: SENNOSIDES 8.6 MG TABLET PO SCH (21:15)
[2017-03-19] MEDS: GLYCOPYRROLATE 1 MG TABLET GT SCH ×4 (00:34→18:00)
[2017-03-19] MEDS: ALBUTEROL FS 2.5 MG/3 ML VIAL.NEB NEB SCH ×4 (01:33→19:35)
[2017-03-19] MEDS: IPRATROPIUM NEB FS 0.5 MG/2.5 ML AMPUL.NEB NEB SCH ×4 (01:33→19:35)
[2017-03-19] MEDS: LEVOTHYROXINE SODIUM 125 MCG TABLET GT SCH (05:47)
[2017-03-19] MEDS: BACLOFEN (10 MG) 10 MG TABLET GT SCH ×3 (05:47→20:52)
[2017-03-19] MEDS: OMEPRAZOLE 20 MG GT SCH (05:47)
[2017-03-19 08:02] VITALS: BP 135/73
[2017-03-19] MEDS: DOCUSATE SODIUM LIQ 100 MG/10 ML UDC GT SCH (08:46)
[2017-03-19] MEDS: POLYVINYL ALCOHOL 15 ML BOTTLE EACHEYE SCH ×4 (08:46→20:52)
[2017-03-19] MEDS: HEPARIN SODIUM, PORCINE 5000 UNITS/1 ML VIAL SQ SCH ×2 (08:47→20:54)
[2017-03-19] MEDS: ASCORBIC ACID 500 MG TABLET GT SCH (08:47)
[2017-03-19] MEDS: POLYETHYLENE GLYCOL 3350 17 GM POWD.PACK GT SCH (08:47)
[2017-03-19] MEDS: POTASSIUM CHLORIDE 20 MEQ/15 ML ML GT SCH (08:47)
[2017-03-19] MEDS: ACIDOPHILUS/BULGARICUS 1 EACH TAB.CHEW GT SCH (08:47)
[2017-03-19] MEDS: MVI/MINERALS LIQUID (CEROVITE) GT SCH (08:47)
[2017-03-19] MEDS: AMIODARONE HCL 200 MG TABLET GT SCH (08:47)
[2017-03-19] MEDS: HYDROGEN PEROXIDE 480 ML BOTTLE TP SCH ×2 (08:47→20:54)
[2017-03-19] MEDS: NYSTATIN TOP POWDER 15 GM BOTTLE TP SCH ×2 (08:48→20:55)
[2017-03-19] MEDS: CLOTRIMAZOLE 1% 15 GM TUBE TP SCH ×2 (08:48→20:54)
[2017-03-19 19:44] VITALS: BP 121/71
[2017-03-19] MEDS: FINASTERIDE (5 MG) 5 MG TABLET GT SCH (20:52)
[2017-03-19] MEDS: SENNOSIDES 8.6 MG TABLET PO SCH (21:30)
[2017-03-20] MEDS: GLYCOPYRROLATE 1 MG TABLET GT SCH ×4 (00:12→18:30)
[2017-03-20] MEDS: ALBUTEROL FS 2.5 MG/3 ML VIAL.NEB NEB SCH ×4 (01:03→19:30)
[2017-03-20] MEDS: IPRATROPIUM NEB FS 0.5 MG/2.5 ML AMPUL.NEB NEB SCH ×4 (01:03→19:30)
[2017-03-20] MEDS: LEVOTHYROXINE SODIUM 125 MCG TABLET GT SCH (05:47)
[2017-03-20] MEDS: BACLOFEN (10 MG) 10 MG TABLET GT SCH ×3 (05:47→21:00)
[2017-03-20] MEDS: OMEPRAZOLE 20 MG GT SCH (05:47)
[2017-03-20 08:10] VITALS: BP 115/72
[2017-03-20] MEDS: DOCUSATE SODIUM LIQ 100 MG/10 ML UDC GT SCH (09:20)
[2017-03-20] MEDS: POLYVINYL ALCOHOL 15 ML BOTTLE EACHEYE SCH ×4 (09:20→21:00)
[2017-03-20] MEDS: ACIDOPHILUS/BULGARICUS 1 EACH TAB.CHEW GT SCH (09:21)
[2017-03-20] MEDS: ASCORBIC ACID 500 MG TABLET GT SCH (09:21)
[2017-03-20] MEDS: POLYETHYLENE GLYCOL 3350 17 GM POWD.PACK GT SCH (09:21)
[2017-03-20] MEDS: POTASSIUM CHLORIDE 20 MEQ/15 ML ML GT SCH (09:21)
[2017-03-20] MEDS: MVI/MINERALS LIQUID (CEROVITE) GT SCH (09:21)
[2017-03-20] MEDS: AMIODARONE HCL 200 MG TABLET GT SCH (09:21)
[2017-03-20] MEDS: HEPARIN SODIUM, PORCINE 5000 UNITS/1 ML VIAL SQ SCH ×2 (09:22→21:01)
[2017-03-20] MEDS: NYSTATIN TOP POWDER 15 GM BOTTLE TP SCH ×2 (09:22→21:01)
[2017-03-20] MEDS: HYDROGEN PEROXIDE 480 ML BOTTLE TP SCH ×2 (09:22→21:01)
[2017-03-20] MEDS: CLOTRIMAZOLE 1% 15 GM TUBE TP SCH ×2 (09:22→21:01)
[2017-03-20 19:43] VITALS: BP 132/76
[2017-03-20] MEDS: FINASTERIDE (5 MG) 5 MG TABLET GT SCH (20:00)
[2017-03-20] MEDS: SENNOSIDES 8.6 MG TABLET PO SCH (21:36)
[2017-03-21] MEDS: GLYCOPYRROLATE 1 MG TABLET GT SCH ×5 (00:14→23:23)
[2017-03-21] MEDS: RENAL NOVASOURCE 1,000 ML BOTTLE GT PRN (02:03)
[2017-03-21] MEDS: ALBUTEROL FS 2.5 MG/3 ML VIAL.NEB NEB SCH ×4 (02:08→19:30)
[2017-03-21] MEDS: IPRATROPIUM NEB FS 0.5 MG/2.5 ML AMPUL.NEB NEB SCH ×4 (02:08→19:30)
[2017-03-21] MEDS: BACLOFEN (10 MG) 10 MG TABLET GT SCH ×3 (05:52→20:15)
[2017-03-21] MEDS: OMEPRAZOLE 20 MG GT SCH (05:53)
[2017-03-21] MEDS: LEVOTHYROXINE SODIUM 125 MCG TABLET GT SCH (05:53)
[2017-03-21 08:00] VITALS: BP 120/77
[2017-03-21] MEDS: DOCUSATE SODIUM LIQ 100 MG/10 ML UDC GT SCH (08:52)
[2017-03-21] MEDS: POLYVINYL ALCOHOL 15 ML BOTTLE EACHEYE SCH ×4 (08:52→20:15)
[2017-03-21] MEDS: ACIDOPHILUS/BULGARICUS 1 EACH TAB.CHEW GT SCH (08:53)
[2017-03-21] MEDS: ASCORBIC ACID 500 MG TABLET GT SCH (08:53)
[2017-03-21] MEDS: POLYETHYLENE GLYCOL 3350 17 GM POWD.PACK GT SCH (08:53)
[2017-03-21] MEDS: POTASSIUM CHLORIDE 20 MEQ/15 ML ML GT SCH (08:53)
[2017-03-21] MEDS: MVI/MINERALS LIQUID (CEROVITE) GT SCH (08:53)
[2017-03-21] MEDS: AMIODARONE HCL 200 MG TABLET GT SCH (08:53)
[2017-03-21] MEDS: HEPARIN SODIUM, PORCINE 5000 UNITS/1 ML VIAL SQ SCH ×2 (08:54→20:16)
[2017-03-21] MEDS: HYDROGEN PEROXIDE 480 ML BOTTLE TP SCH ×2 (08:54→20:16)
[2017-03-21] MEDS: NYSTATIN TOP POWDER 15 GM BOTTLE TP SCH ×2 (08:54→20:17)
[2017-03-21] MEDS: CLOTRIMAZOLE 1% 15 GM TUBE TP SCH ×2 (08:54→20:16)
[2017-03-21] MEDS: FINASTERIDE (5 MG) 5 MG TABLET GT SCH (20:15)
[2017-03-21 20:20] VITALS: BP 113/69
[2017-03-21] MEDS: SENNOSIDES 8.6 MG TABLET PO SCH (21:53)
[2017-03-22] MEDS: ALBUTEROL FS 2.5 MG/3 ML VIAL.NEB NEB SCH ×4 (01:18→20:28)
[2017-03-22] MEDS: IPRATROPIUM NEB FS 0.5 MG/2.5 ML AMPUL.NEB NEB SCH ×4 (01:18→20:28)
[2017-03-22] MEDS: LEVOTHYROXINE SODIUM 125 MCG TABLET GT SCH (05:40)
[2017-03-22] MEDS: OMEPRAZOLE 20 MG GT SCH (05:40)
[2017-03-22] MEDS: GLYCOPYRROLATE 1 MG TABLET GT SCH ×4 (05:40→23:24)
[2017-03-22] MEDS: BACLOFEN (10 MG) 10 MG TABLET GT SCH ×3 (05:40→21:38)
[2017-03-22 07:29] VITALS: BP 101/57
[2017-03-22] MEDS: POTASSIUM CHLORIDE 20 MEQ/15 ML ML GT SCH (09:58)
[2017-03-22] MEDS: DOCUSATE SODIUM LIQ 100 MG/10 ML UDC GT SCH (09:58)
[2017-03-22] MEDS: MVI/MINERALS LIQUID (CEROVITE) GT SCH (09:58)
[2017-03-22] MEDS: POLYVINYL ALCOHOL 15 ML BOTTLE EACHEYE SCH ×4 (09:58→21:38)
[2017-03-22] MEDS: AMIODARONE HCL 200 MG TABLET GT SCH (09:58)
[2017-03-22] MEDS: POLYETHYLENE GLYCOL 3350 17 GM POWD.PACK GT SCH (09:58)
[2017-03-22] MEDS: ACIDOPHILUS/BULGARICUS 1 EACH TAB.CHEW GT SCH (09:58)
[2017-03-22] MEDS: ASCORBIC ACID 500 MG TABLET GT SCH (09:58)
[2017-03-22] MEDS: HYDROGEN PEROXIDE 480 ML BOTTLE TP SCH ×2 (09:59→21:38)
[2017-03-22] MEDS: HEPARIN SODIUM, PORCINE 5000 UNITS/1 ML VIAL SQ SCH ×2 (09:59→21:38)
[2017-03-22] MEDS: CLOTRIMAZOLE 1% 15 GM TUBE TP SCH ×2 (09:59→21:38)
[2017-03-22] MEDS: NYSTATIN TOP POWDER 15 GM BOTTLE TP SCH ×2 (09:59→21:38)
[2017-03-22] MEDS: RENAL NOVASOURCE 1,000 ML BOTTLE GT PRN (17:09)
[2017-03-22 19:55] VITALS: BP 107/77
[2017-03-22] MEDS: FINASTERIDE (5 MG) 5 MG TABLET GT SCH (20:00)
[2017-03-22] MEDS: MAGNESIUM HYDROXIDE 30 ML UDC GT PRN (21:38)
[2017-03-22] MEDS: SENNOSIDES 8.6 MG TABLET PO SCH (21:38)
[2017-03-23] MEDS: ALBUTEROL FS 2.5 MG/3 ML VIAL.NEB NEB SCH ×4 (01:52→19:30)
[2017-03-23] MEDS: IPRATROPIUM NEB FS 0.5 MG/2.5 ML AMPUL.NEB NEB SCH ×4 (01:52→19:30)
[2017-03-23] MEDS: BACLOFEN (10 MG) 10 MG TABLET GT SCH ×3 (05:19→20:39)
[2017-03-23] MEDS: GLYCOPYRROLATE 1 MG TABLET GT SCH ×4 (05:19→23:31)
[2017-03-23] MEDS: OMEPRAZOLE 20 MG GT SCH (05:19)
[2017-03-23] MEDS: LEVOTHYROXINE SODIUM 125 MCG TABLET GT SCH (05:19)
[2017-03-23 07:33] VITALS: BP 103/67
[2017-03-23] MEDS: DOCUSATE SODIUM LIQ 100 MG/10 ML UDC GT SCH (09:57)
[2017-03-23] MEDS: POLYVINYL ALCOHOL 15 ML BOTTLE EACHEYE SCH ×4 (09:57→20:39)
[2017-03-23] MEDS: POLYETHYLENE GLYCOL 3350 17 GM POWD.PACK GT SCH (09:58)
[2017-03-23] MEDS: MVI/MINERALS LIQUID (CEROVITE) GT SCH (09:58)
[2017-03-23] MEDS: ASCORBIC ACID 500 MG TABLET GT SCH (09:58)
[2017-03-23] MEDS: ACIDOPHILUS/BULGARICUS 1 EACH TAB.CHEW GT SCH (09:58)
[2017-03-23] MEDS: AMIODARONE HCL 200 MG TABLET GT SCH (09:58)
[2017-03-23] MEDS: HEPARIN SODIUM, PORCINE 5000 UNITS/1 ML VIAL SQ SCH ×2 (09:58→20:39)
[2017-03-23] MEDS: POTASSIUM CHLORIDE 20 MEQ/15 ML ML GT SCH (09:58)
[2017-03-23] MEDS: HYDROGEN PEROXIDE 480 ML BOTTLE TP SCH ×2 (09:59→20:39)
[2017-03-23] MEDS: CLOTRIMAZOLE 1% 15 GM TUBE TP SCH ×2 (09:59→20:39)
[2017-03-23] MEDS: NYSTATIN TOP POWDER 15 GM BOTTLE TP SCH ×2 (09:59→20:39)
[2017-03-23 19:57] VITALS: BP 115/76
[2017-03-23] MEDS: FINASTERIDE (5 MG) 5 MG TABLET GT SCH (20:38)
[2017-03-23] MEDS: SENNOSIDES 8.6 MG TABLET PO SCH (21:21)
[2017-03-23] MEDS: MAGNESIUM HYDROXIDE 30 ML UDC GT PRN (21:21)
[2017-03-24] MEDS: IPRATROPIUM NEB FS 0.5 MG/2.5 ML AMPUL.NEB NEB SCH ×4 (02:13→20:06)
[2017-03-24] MEDS: ALBUTEROL FS 2.5 MG/3 ML VIAL.NEB NEB SCH ×4 (02:13→20:07)
[2017-03-24] MEDS: OMEPRAZOLE 20 MG GT SCH (05:20)
[2017-03-24] MEDS: GLYCOPYRROLATE 1 MG TABLET GT SCH ×4 (05:20→23:10)
[2017-03-24] MEDS: LEVOTHYROXINE SODIUM 125 MCG TABLET GT SCH (05:20)
[2017-03-24] MEDS: RENAL NOVASOURCE 1,000 ML BOTTLE GT PRN (05:20)
[2017-03-24] MEDS: BACLOFEN (10 MG) 10 MG TABLET GT SCH ×3 (05:36→20:23)
[2017-03-24 07:59] VITALS: BP 132/79
[2017-03-24] MEDS: POLYVINYL ALCOHOL 15 ML BOTTLE EACHEYE SCH ×4 (09:04→20:23)
[2017-03-24] MEDS: DOCUSATE SODIUM LIQ 100 MG/10 ML UDC GT SCH (09:04)
[2017-03-24] MEDS: ASCORBIC ACID 500 MG TABLET GT SCH (09:05)
[2017-03-24] MEDS: AMIODARONE HCL 200 MG TABLET GT SCH (09:05)
[2017-03-24] MEDS: HEPARIN SODIUM, PORCINE 5000 UNITS/1 ML VIAL SQ SCH ×2 (09:05→20:23)
[2017-03-24] MEDS: HYDROGEN PEROXIDE 480 ML BOTTLE TP SCH ×2 (09:05→20:23)
[2017-03-24] MEDS: ACIDOPHILUS/BULGARICUS 1 EACH TAB.CHEW GT SCH (09:05)
[2017-03-24] MEDS: POTASSIUM CHLORIDE 20 MEQ/15 ML ML GT SCH (09:05)
[2017-03-24] MEDS: MVI/MINERALS LIQUID (CEROVITE) GT SCH (09:05)
[2017-03-24] MEDS: POLYETHYLENE GLYCOL 3350 17 GM POWD.PACK GT SCH (09:05)
[2017-03-24] MEDS: CLOTRIMAZOLE 1% 15 GM TUBE TP SCH ×2 (09:06→20:24)
[2017-03-24] MEDS: NYSTATIN TOP POWDER 15 GM BOTTLE TP SCH ×2 (09:06→20:24)
[2017-03-24 19:51] VITALS: BP 123/77
[2017-03-24] MEDS: FINASTERIDE (5 MG) 5 MG TABLET GT SCH (20:35)
[2017-03-24] MEDS: SENNOSIDES 8.6 MG TABLET PO SCH (21:31)
[2017-03-25] MEDS: IPRATROPIUM NEB FS 0.5 MG/2.5 ML AMPUL.NEB NEB SCH ×4 (01:24→20:17)
[2017-03-25] MEDS: ALBUTEROL FS 2.5 MG/3 ML VIAL.NEB NEB SCH ×4 (01:24→20:17)
[2017-03-25] MEDS: OMEPRAZOLE 20 MG GT SCH (05:20)
[2017-03-25] MEDS: GLYCOPYRROLATE 1 MG TABLET GT SCH ×4 (05:20→23:49)
[2017-03-25] MEDS: BACLOFEN (10 MG) 10 MG TABLET GT SCH ×3 (05:20→21:40)
[2017-03-25] MEDS: RENAL NOVASOURCE 1,000 ML BOTTLE GT PRN (05:20)
[2017-03-25] MEDS: LEVOTHYROXINE SODIUM 125 MCG TABLET GT SCH (05:20)
[2017-03-25 08:11] VITALS: BP 115/69
[2017-03-25] MEDS: ACIDOPHILUS/BULGARICUS 1 EACH TAB.CHEW GT SCH (09:15)
[2017-03-25] MEDS: MVI/MINERALS LIQUID (CEROVITE) GT SCH (09:15)
[2017-03-25] MEDS: POTASSIUM CHLORIDE 20 MEQ/15 ML ML GT SCH (09:15)
[2017-03-25] MEDS: ASCORBIC ACID 500 MG TABLET GT SCH (09:15)
[2017-03-25] MEDS: POLYVINYL ALCOHOL 15 ML BOTTLE EACHEYE SCH ×4 (09:15→21:40)
[2017-03-25] MEDS: DOCUSATE SODIUM LIQ 100 MG/10 ML UDC GT SCH (09:15)
[2017-03-25] MEDS: POLYETHYLENE GLYCOL 3350 17 GM POWD.PACK GT SCH (09:15)
[2017-03-25] MEDS: AMIODARONE HCL 200 MG TABLET GT SCH (09:15)
[2017-03-25] MEDS: NYSTATIN TOP POWDER 15 GM BOTTLE TP SCH ×2 (09:16→21:40)
[2017-03-25] MEDS: CLOTRIMAZOLE 1% 15 GM TUBE TP SCH ×2 (09:16→21:40)
[2017-03-25] MEDS: HEPARIN SODIUM, PORCINE 5000 UNITS/1 ML VIAL SQ SCH ×2 (09:16→21:40)
[2017-03-25] MEDS: HYDROGEN PEROXIDE 480 ML BOTTLE TP SCH ×2 (09:16→21:40)
--- NOTE | 2017-03-25 14:20 | NUR ---
Found patient midline is out. No bleeding noted. No swelling. No s/sx of pain/discomfort noted. CARMELITA Ricks made aware. Richard Flannery notified.
[2017-03-25] MEDS: FINASTERIDE (5 MG) 5 MG TABLET GT SCH (20:00)
[2017-03-25 20:19] VITALS: BP 104/62
[2017-03-25] MEDS: SENNOSIDES 8.6 MG TABLET PO SCH (21:40)
[2017-03-26] MEDS: IPRATROPIUM NEB FS 0.5 MG/2.5 ML AMPUL.NEB NEB SCH ×4 (01:51→20:12)
[2017-03-26] MEDS: ALBUTEROL FS 2.5 MG/3 ML VIAL.NEB NEB SCH ×4 (01:51→20:12)
[2017-03-26] MEDS: BACLOFEN (10 MG) 10 MG TABLET GT SCH ×3 (05:00→20:52)
[2017-03-26] MEDS: RENAL NOVASOURCE 1,000 ML BOTTLE GT PRN (06:10)
[2017-03-26] MEDS: GLYCOPYRROLATE 1 MG TABLET GT SCH ×4 (06:43→23:14)
[2017-03-26] MEDS: OMEPRAZOLE 20 MG GT SCH (06:43)
[2017-03-26] MEDS: LEVOTHYROXINE SODIUM 125 MCG TABLET GT SCH (06:43)
[2017-03-26 07:50] VITALS: BP 123/60
[2017-03-26] MEDS: POLYVINYL ALCOHOL 15 ML BOTTLE EACHEYE SCH ×4 (08:32→20:51)
[2017-03-26] MEDS: DOCUSATE SODIUM LIQ 100 MG/10 ML UDC GT SCH (08:32)
[2017-03-26] MEDS: AMIODARONE HCL 200 MG TABLET GT SCH (08:33)
[2017-03-26] MEDS: ACIDOPHILUS/BULGARICUS 1 EACH TAB.CHEW GT SCH (08:33)
[2017-03-26] MEDS: MVI/MINERALS LIQUID (CEROVITE) GT SCH (08:33)
[2017-03-26] MEDS: ASCORBIC ACID 500 MG TABLET GT SCH (08:34)
[2017-03-26] MEDS: HYDROGEN PEROXIDE 480 ML BOTTLE TP SCH ×2 (08:34→20:52)
[2017-03-26] MEDS: POLYETHYLENE GLYCOL 3350 17 GM POWD.PACK GT SCH (08:34)
[2017-03-26] MEDS: CLOTRIMAZOLE 1% 15 GM TUBE TP SCH ×2 (08:34→20:52)
[2017-03-26] MEDS: POTASSIUM CHLORIDE 20 MEQ/15 ML ML GT SCH (08:34)
[2017-03-26] MEDS: NYSTATIN TOP POWDER 15 GM BOTTLE TP SCH ×2 (08:35→20:52)
[2017-03-26] MEDS: HEPARIN SODIUM, PORCINE 5000 UNITS/1 ML VIAL SQ SCH ×2 (08:36→20:52)
[2017-03-26 20:17] VITALS: BP 111/81
[2017-03-26] MEDS: FINASTERIDE (5 MG) 5 MG TABLET GT SCH (20:51)
[2017-03-26] MEDS: SENNOSIDES 8.6 MG TABLET PO SCH (21:31)
[2017-03-27] MEDS: ALBUTEROL FS 2.5 MG/3 ML VIAL.NEB NEB SCH ×4 (02:13→19:41)
[2017-03-27] MEDS: IPRATROPIUM NEB FS 0.5 MG/2.5 ML AMPUL.NEB NEB SCH ×4 (02:13→19:41)
[2017-03-27] MEDS: GLYCOPYRROLATE 1 MG TABLET GT SCH ×4 (05:34→23:17)
[2017-03-27] MEDS: BACLOFEN (10 MG) 10 MG TABLET GT SCH ×3 (05:34→20:04)
[2017-03-27] MEDS: LEVOTHYROXINE SODIUM 125 MCG TABLET GT SCH (05:34)
[2017-03-27] MEDS: OMEPRAZOLE 20 MG GT SCH (05:34)
[2017-03-27 07:54] VITALS: BP_SYST 107; BP_SYST 122; BP_DIAS 71; BP_DIAS 72
[2017-03-27] MEDS: DOCUSATE SODIUM LIQ 100 MG/10 ML UDC GT SCH (09:03)
[2017-03-27] MEDS: AMIODARONE HCL 200 MG TABLET GT SCH (09:03)
[2017-03-27] MEDS: ACIDOPHILUS/BULGARICUS 1 EACH TAB.CHEW GT SCH (09:03)
[2017-03-27] MEDS: POLYVINYL ALCOHOL 15 ML BOTTLE EACHEYE SCH ×4 (09:03→20:03)
[2017-03-27] MEDS: POLYETHYLENE GLYCOL 3350 17 GM POWD.PACK GT SCH (09:03)
[2017-03-27] MEDS: HYDROGEN PEROXIDE 480 ML BOTTLE TP SCH ×2 (09:04→20:04)
[2017-03-27] MEDS: NYSTATIN TOP POWDER 15 GM BOTTLE TP SCH ×2 (09:04→20:05)
[2017-03-27] MEDS: CLOTRIMAZOLE 1% 15 GM TUBE TP SCH ×2 (09:04→20:04)
[2017-03-27] MEDS: ASCORBIC ACID 500 MG TABLET GT SCH (09:04)
[2017-03-27] MEDS: MVI/MINERALS LIQUID (CEROVITE) GT SCH (09:04)
[2017-03-27] MEDS: POTASSIUM CHLORIDE 20 MEQ/15 ML ML GT SCH (09:04)
[2017-03-27] MEDS: HEPARIN SODIUM, PORCINE 5000 UNITS/1 ML VIAL SQ SCH ×2 (09:04→20:04)
[2017-03-27] MEDS: RENAL NOVASOURCE 1,000 ML BOTTLE GT PRN (19:21)
[2017-03-27 19:56] VITALS: BP 108/69
[2017-03-27] MEDS: FINASTERIDE (5 MG) 5 MG TABLET GT SCH (20:03)
[2017-03-27] MEDS: SENNOSIDES 8.6 MG TABLET PO SCH (21:18)
[2017-03-28] MEDS: ALBUTEROL FS 2.5 MG/3 ML VIAL.NEB NEB SCH ×4 (00:34→19:50)
[2017-03-28] MEDS: IPRATROPIUM NEB FS 0.5 MG/2.5 ML AMPUL.NEB NEB SCH ×4 (00:34→19:50)
[2017-03-28] MEDS: BACLOFEN (10 MG) 10 MG TABLET GT SCH ×3 (05:00→20:13)
[2017-03-28] MEDS: OMEPRAZOLE 20 MG GT SCH (06:04)
[2017-03-28] MEDS: LEVOTHYROXINE SODIUM 125 MCG TABLET GT SCH (06:04)
[2017-03-28] MEDS: GLYCOPYRROLATE 1 MG TABLET GT SCH ×4 (06:04→23:12)
[2017-03-28 07:48] VITALS: BP 141/78
[2017-03-28] MEDS: DOCUSATE SODIUM LIQ 100 MG/10 ML UDC GT SCH (09:41)
[2017-03-28] MEDS: POLYVINYL ALCOHOL 15 ML BOTTLE EACHEYE SCH ×4 (09:41→20:13)
[2017-03-28] MEDS: AMIODARONE HCL 200 MG TABLET GT SCH (09:41)
[2017-03-28] MEDS: POTASSIUM CHLORIDE 20 MEQ/15 ML ML GT SCH (09:42)
[2017-03-28] MEDS: POLYETHYLENE GLYCOL 3350 17 GM POWD.PACK GT SCH (09:42)
[2017-03-28] MEDS: ACIDOPHILUS/BULGARICUS 1 EACH TAB.CHEW GT SCH (09:42)
[2017-03-28] MEDS: MVI/MINERALS LIQUID (CEROVITE) GT SCH (09:42)
[2017-03-28] MEDS: ASCORBIC ACID 500 MG TABLET GT SCH (09:43)
[2017-03-28] MEDS: HEPARIN SODIUM, PORCINE 5000 UNITS/1 ML VIAL SQ SCH ×2 (09:44→20:13)
[2017-03-28] MEDS: HYDROGEN PEROXIDE 480 ML BOTTLE TP SCH ×2 (09:50→20:13)
[2017-03-28] MEDS: CLOTRIMAZOLE 1% 15 GM TUBE TP SCH ×2 (09:51→20:14)
[2017-03-28 20:04] VITALS: BP 101/59
[2017-03-28] MEDS: FINASTERIDE (5 MG) 5 MG TABLET GT SCH (20:13)
[2017-03-28] MEDS: SENNOSIDES 8.6 MG TABLET PO SCH (21:31)
[2017-03-29] MEDS: ALBUTEROL FS 2.5 MG/3 ML VIAL.NEB NEB SCH ×4 (01:53→19:44)
[2017-03-29] MEDS: IPRATROPIUM NEB FS 0.5 MG/2.5 ML AMPUL.NEB NEB SCH ×4 (01:53→19:44)
[2017-03-29] MEDS: BACLOFEN (10 MG) 10 MG TABLET GT SCH ×3 (05:05→20:32)
[2017-03-29] MEDS: OMEPRAZOLE 20 MG GT SCH (05:05)
[2017-03-29] MEDS: GLYCOPYRROLATE 1 MG TABLET GT SCH ×4 (05:05→23:46)
[2017-03-29] MEDS: LEVOTHYROXINE SODIUM 125 MCG TABLET GT SCH (05:05)
[2017-03-29 07:48] VITALS: BP 105/65
[2017-03-29] MEDS: RENAL NOVASOURCE 1,000 ML BOTTLE GT PRN (09:00)
[2017-03-29] MEDS: HEPARIN SODIUM, PORCINE 5000 UNITS/1 ML VIAL SQ SCH ×2 (09:00→20:32)
[2017-03-29] MEDS: DOCUSATE SODIUM LIQ 100 MG/10 ML UDC GT SCH (09:41)
[2017-03-29] MEDS: POLYVINYL ALCOHOL 15 ML BOTTLE EACHEYE SCH ×4 (09:41→20:32)
[2017-03-29] MEDS: CLOTRIMAZOLE 1% 15 GM TUBE TP SCH ×2 (09:42→20:32)
[2017-03-29] MEDS: ASCORBIC ACID 500 MG TABLET GT SCH (09:42)
[2017-03-29] MEDS: MVI/MINERALS LIQUID (CEROVITE) GT SCH (09:42)
[2017-03-29] MEDS: ACIDOPHILUS/BULGARICUS 1 EACH TAB.CHEW GT SCH (09:42)
[2017-03-29] MEDS: POLYETHYLENE GLYCOL 3350 17 GM POWD.PACK GT SCH (09:42)
[2017-03-29] MEDS: HYDROGEN PEROXIDE 480 ML BOTTLE TP SCH ×2 (09:42→20:32)
[2017-03-29] MEDS: AMIODARONE HCL 200 MG TABLET GT SCH (09:42)
[2017-03-29] MEDS: POTASSIUM CHLORIDE 20 MEQ/15 ML ML GT SCH (09:42)
--- NOTE | 2017-03-29 15:03 | NUR ---
SW spoke to the resident's who stated that she was going to be on vacation from April 02-April 10. She stated that in case of an emergency, hospital staff may contact her first ([phone]) and if she is not available they may then contact Laura Bailey ([phone]) or Dat Bradley ([phone]). She also inquired if a particular [facility] CANOE INSPECTOR could be the caregiver for the resident while she is away and that she will pay privately. Charge nurse checked with subacute director and she stated that this was not possible and resident's stated that she will try to find a caregiver but was not sure. In any case, she reported that she will be calling on a daily basis. Charge nurse was informed.
[2017-03-29 19:40] VITALS: BP 118/67
[2017-03-29] MEDS: FINASTERIDE (5 MG) 5 MG TABLET GT SCH (20:32)
[2017-03-29] MEDS: SENNOSIDES 8.6 MG TABLET PO SCH (21:34)
[2017-03-30] MEDS: ALBUTEROL FS 2.5 MG/3 ML VIAL.NEB NEB SCH ×4 (02:05→20:08)
[2017-03-30] MEDS: IPRATROPIUM NEB FS 0.5 MG/2.5 ML AMPUL.NEB NEB SCH ×4 (02:05→20:08)
[2017-03-30] MEDS: OMEPRAZOLE 20 MG GT SCH (05:42)
[2017-03-30] MEDS: GLYCOPYRROLATE 1 MG TABLET GT SCH ×4 (05:42→23:07)
[2017-03-30] MEDS: LEVOTHYROXINE SODIUM 125 MCG TABLET GT SCH (05:42)
[2017-03-30] MEDS: BACLOFEN (10 MG) 10 MG TABLET GT SCH ×3 (05:46→21:05)
[2017-03-30 07:28] VITALS: BP 109/81
[2017-03-30] MEDS: ASCORBIC ACID 500 MG TABLET GT SCH (09:13)
[2017-03-30] MEDS: AMIODARONE HCL 200 MG TABLET GT SCH (09:13)
[2017-03-30] MEDS: POLYVINYL ALCOHOL 15 ML BOTTLE EACHEYE SCH ×4 (09:13→21:05)
[2017-03-30] MEDS: MVI/MINERALS LIQUID (CEROVITE) GT SCH (09:13)
[2017-03-30] MEDS: POTASSIUM CHLORIDE 20 MEQ/15 ML ML GT SCH (09:13)
[2017-03-30] MEDS: POLYETHYLENE GLYCOL 3350 17 GM POWD.PACK GT SCH (09:13)
[2017-03-30] MEDS: DOCUSATE SODIUM LIQ 100 MG/10 ML UDC GT SCH (09:13)
[2017-03-30] MEDS: ACIDOPHILUS/BULGARICUS 1 EACH TAB.CHEW GT SCH (09:13)
[2017-03-30] MEDS: HYDROGEN PEROXIDE 480 ML BOTTLE TP SCH ×2 (09:16→21:06)
[2017-03-30] MEDS: HEPARIN SODIUM, PORCINE 5000 UNITS/1 ML VIAL SQ SCH ×2 (09:16→21:06)
[2017-03-30] MEDS: CLOTRIMAZOLE 1% 15 GM TUBE TP SCH ×2 (09:17→21:06)
--- NOTE | 2017-03-30 12:00 | NUR ---
Pt noted with redness on left medial thigh. MD notified and treatment order obtained, noted and carried out.
[2017-03-30] MEDS: RENAL NOVASOURCE 1,000 ML BOTTLE GT PRN (18:07)
[2017-03-30 19:42] VITALS: BP 132/73
[2017-03-30] MEDS: FINASTERIDE (5 MG) 5 MG TABLET GT SCH (20:50)
[2017-03-30] MEDS: SENNOSIDES 8.6 MG TABLET PO SCH (21:06)
[2017-03-30] MEDS: VITAMINS A AND D 56.7 GM TUBE TP SCH (21:06)
--- NOTE | 2017-03-30 22:00 | NUR ---
Per 's request, she wants to endorse to dayshift that if there is a visitors for her , she wants the CNAs or Primary nurse to asked the visitors to step outside to provide privacy during turning and repositioning and also while doing patient care. will endorse to AM charge nurse.
[2017-03-31] MEDS: IPRATROPIUM NEB FS 0.5 MG/2.5 ML AMPUL.NEB NEB SCH ×4 (02:25→19:39)
[2017-03-31] MEDS: ALBUTEROL FS 2.5 MG/3 ML VIAL.NEB NEB SCH ×4 (02:25→19:39)
[2017-03-31] MEDS: LEVOTHYROXINE SODIUM 125 MCG TABLET GT SCH (05:17)
[2017-03-31] MEDS: OMEPRAZOLE 20 MG GT SCH (05:17)
[2017-03-31] MEDS: GLYCOPYRROLATE 1 MG TABLET GT SCH ×4 (05:17→23:14)
[2017-03-31] MEDS: BACLOFEN (10 MG) 10 MG TABLET GT SCH ×3 (05:27→20:26)
[2017-03-31 07:30] VITALS: BP 123/72
[2017-03-31] MEDS: POLYVINYL ALCOHOL 15 ML BOTTLE EACHEYE SCH ×4 (08:39→20:25)
[2017-03-31] MEDS: DOCUSATE SODIUM LIQ 100 MG/10 ML UDC GT SCH (08:40)
[2017-03-31] MEDS: AMIODARONE HCL 200 MG TABLET GT SCH (08:41)
[2017-03-31] MEDS: ACIDOPHILUS/BULGARICUS 1 EACH TAB.CHEW GT SCH (08:41)
[2017-03-31] MEDS: POLYETHYLENE GLYCOL 3350 17 GM POWD.PACK GT SCH (08:41)
[2017-03-31] MEDS: MVI/MINERALS LIQUID (CEROVITE) GT SCH (08:41)
[2017-03-31] MEDS: POTASSIUM CHLORIDE 20 MEQ/15 ML ML GT SCH (08:41)
[2017-03-31] MEDS: HYDROGEN PEROXIDE 480 ML BOTTLE TP SCH ×2 (08:42→20:26)
[2017-03-31] MEDS: VITAMINS A AND D 56.7 GM TUBE TP SCH ×2 (08:42→20:26)
[2017-03-31] MEDS: ASCORBIC ACID 500 MG TABLET GT SCH (08:42)
[2017-03-31] MEDS: HEPARIN SODIUM, PORCINE 5000 UNITS/1 ML VIAL SQ SCH ×2 (08:42→20:27)
[2017-03-31] MEDS: CLOTRIMAZOLE 1% 15 GM TUBE TP SCH ×2 (08:42→20:26)
--- NOTE | 2017-03-31 10:20 | NUR ---
Seen and examined by Dr Paniagua with no new order.
[2017-03-31 19:42] VITALS: BP 107/70
[2017-03-31] MEDS: FINASTERIDE (5 MG) 5 MG TABLET GT SCH (20:25)
[2017-03-31] MEDS: SENNOSIDES 8.6 MG TABLET PO SCH (21:09)
[2017-04-01] MEDS: ALBUTEROL FS 2.5 MG/3 ML VIAL.NEB NEB SCH ×4 (01:23→20:02)
[2017-04-01] MEDS: IPRATROPIUM NEB FS 0.5 MG/2.5 ML AMPUL.NEB NEB SCH ×4 (01:23→20:02)
[2017-04-01] MEDS: BACLOFEN (10 MG) 10 MG TABLET GT SCH ×3 (05:38→21:27)
[2017-04-01] MEDS: OMEPRAZOLE 20 MG GT SCH (05:38)
[2017-04-01] MEDS: LEVOTHYROXINE SODIUM 125 MCG TABLET GT SCH (05:38)
[2017-04-01] MEDS: GLYCOPYRROLATE 1 MG TABLET GT SCH ×4 (05:38→23:30)
[2017-04-01] MEDS: RENAL NOVASOURCE 1,000 ML BOTTLE GT PRN (05:38)
[2017-04-01 07:35] VITALS: BP 113/71
[2017-04-01] MEDS: DOCUSATE SODIUM LIQ 100 MG/10 ML UDC GT SCH (09:31)
[2017-04-01] MEDS: POLYVINYL ALCOHOL 15 ML BOTTLE EACHEYE SCH ×4 (09:31→21:27)
[2017-04-01] MEDS: ACIDOPHILUS/BULGARICUS 1 EACH TAB.CHEW GT SCH (09:33)
[2017-04-01] MEDS: POLYETHYLENE GLYCOL 3350 17 GM POWD.PACK GT SCH (09:33)
[2017-04-01] MEDS: MVI/MINERALS LIQUID (CEROVITE) GT SCH (09:33)
[2017-04-01] MEDS: ASCORBIC ACID 500 MG TABLET GT SCH (09:33)
[2017-04-01] MEDS: AMIODARONE HCL 200 MG TABLET GT SCH (09:33)
[2017-04-01] MEDS: POTASSIUM CHLORIDE 20 MEQ/15 ML ML GT SCH (09:33)
[2017-04-01] MEDS: VITAMINS A AND D 56.7 GM TUBE TP SCH ×2 (09:34→21:28)
[2017-04-01] MEDS: HYDROGEN PEROXIDE 480 ML BOTTLE TP SCH ×2 (09:34→21:27)
[2017-04-01] MEDS: CLOTRIMAZOLE 1% 15 GM TUBE TP SCH ×2 (09:34→21:27)
[2017-04-01] MEDS: HEPARIN SODIUM, PORCINE 5000 UNITS/1 ML VIAL SQ SCH ×2 (09:34→21:27)
--- NOTE | 2017-04-01 10:28 | NUR ---
Called patient's , left voicemail to apologize that she was not called as soon as patient was noted with redness on left thigh last 03/31/17. Per police shift commander charge nurse, was upset that she was not informed right away of noted skin issue. No open skin noted, no blister. Instructed to call back for any other concerns that needed to be addressed.
[2017-04-01] MEDS: FINASTERIDE (5 MG) 5 MG TABLET GT SCH (20:00)
[2017-04-01 21:19] VITALS: BP 106/65
[2017-04-01] MEDS: SENNOSIDES 8.6 MG TABLET PO SCH (21:28)
[2017-04-02] MEDS: IPRATROPIUM NEB FS 0.5 MG/2.5 ML AMPUL.NEB NEB SCH ×4 (01:52→20:10)
[2017-04-02] MEDS: ALBUTEROL FS 2.5 MG/3 ML VIAL.NEB NEB SCH ×4 (01:52→20:10)
[2017-04-02] MEDS: BACLOFEN (10 MG) 10 MG TABLET GT SCH ×3 (05:00→20:14)
[2017-04-02] MEDS: OMEPRAZOLE 20 MG GT SCH (06:06)
[2017-04-02] MEDS: GLYCOPYRROLATE 1 MG TABLET GT SCH ×4 (06:06→23:31)
[2017-04-02] MEDS: LEVOTHYROXINE SODIUM 125 MCG TABLET GT SCH (06:06)
[2017-04-02 07:52] VITALS: BP 100/60
[2017-04-02] MEDS: MVI/MINERALS LIQUID (CEROVITE) GT SCH (09:00)
[2017-04-02] MEDS: VITAMINS A AND D 56.7 GM TUBE TP SCH ×2 (09:00→20:15)
[2017-04-02] MEDS: POLYVINYL ALCOHOL 15 ML BOTTLE EACHEYE SCH ×4 (09:00→20:14)
[2017-04-02] MEDS: HEPARIN SODIUM, PORCINE 5000 UNITS/1 ML VIAL SQ SCH ×2 (09:00→20:15)
[2017-04-02] MEDS: HYDROGEN PEROXIDE 480 ML BOTTLE TP SCH ×2 (09:00→20:15)
[2017-04-02] MEDS: CLOTRIMAZOLE 1% 15 GM TUBE TP SCH ×2 (09:00→20:15)
[2017-04-02] MEDS: AMIODARONE HCL 200 MG TABLET GT SCH (09:00)
[2017-04-02] MEDS: POTASSIUM CHLORIDE 20 MEQ/15 ML ML GT SCH (09:00)
[2017-04-02] MEDS: POLYETHYLENE GLYCOL 3350 17 GM POWD.PACK GT SCH (09:00)
[2017-04-02] MEDS: DOCUSATE SODIUM LIQ 100 MG/10 ML UDC GT SCH (09:00)
[2017-04-02] MEDS: ASCORBIC ACID 500 MG TABLET GT SCH (09:00)
[2017-04-02] MEDS: ACIDOPHILUS/BULGARICUS 1 EACH TAB.CHEW GT SCH (09:00)
[2017-04-02 19:51] VITALS: BP 100/68
[2017-04-02] MEDS: FINASTERIDE (5 MG) 5 MG TABLET GT SCH (20:14)
[2017-04-02] MEDS: SENNOSIDES 8.6 MG TABLET PO SCH (21:19)
[2017-04-03] MEDS: ALBUTEROL FS 2.5 MG/3 ML VIAL.NEB NEB SCH ×4 (01:56→20:23)
[2017-04-03] MEDS: IPRATROPIUM NEB FS 0.5 MG/2.5 ML AMPUL.NEB NEB SCH ×4 (01:56→20:23)
[2017-04-03] MEDS: OMEPRAZOLE 20 MG GT SCH (05:54)
[2017-04-03] MEDS: BACLOFEN (10 MG) 10 MG TABLET GT SCH ×3 (05:54→20:11)
[2017-04-03] MEDS: GLYCOPYRROLATE 1 MG TABLET GT SCH ×4 (05:54→23:37)
[2017-04-03] MEDS: LEVOTHYROXINE SODIUM 125 MCG TABLET GT SCH (05:54)
[2017-04-03 07:53] VITALS: BP 112/70
[2017-04-03] MEDS: DOCUSATE SODIUM LIQ 100 MG/10 ML UDC GT SCH (09:52)
[2017-04-03] MEDS: POLYVINYL ALCOHOL 15 ML BOTTLE EACHEYE SCH ×4 (09:52→20:11)
[2017-04-03] MEDS: AMIODARONE HCL 200 MG TABLET GT SCH (09:53)
[2017-04-03] MEDS: MVI/MINERALS LIQUID (CEROVITE) GT SCH (09:53)
[2017-04-03] MEDS: ACIDOPHILUS/BULGARICUS 1 EACH TAB.CHEW GT SCH (09:53)
[2017-04-03] MEDS: ASCORBIC ACID 500 MG TABLET GT SCH (09:53)
[2017-04-03] MEDS: POLYETHYLENE GLYCOL 3350 17 GM POWD.PACK GT SCH (09:53)
[2017-04-03] MEDS: POTASSIUM CHLORIDE 20 MEQ/15 ML ML GT SCH (09:53)
[2017-04-03] MEDS: HEPARIN SODIUM, PORCINE 5000 UNITS/1 ML VIAL SQ SCH ×2 (09:56→20:13)
[2017-04-03] MEDS: ACETAMINOPHEN 650 MG/20 ML UDC- FOR SA PATIENTS ONLY GT PRN (09:56)
[2017-04-03] MEDS: VITAMINS A AND D 56.7 GM TUBE TP SCH ×2 (10:30→20:13)
[2017-04-03] MEDS: CLOTRIMAZOLE 1% 15 GM TUBE TP SCH ×2 (10:30→20:13)
[2017-04-03] MEDS: HYDROGEN PEROXIDE 480 ML BOTTLE TP SCH ×2 (11:30→20:13)
[2017-04-03] MEDS: FINASTERIDE (5 MG) 5 MG TABLET GT SCH (20:10)
[2017-04-03 20:23] VITALS: BP 100/66
[2017-04-03] MEDS: SENNOSIDES 8.6 MG TABLET PO SCH (21:36)
[2017-04-03] MEDS: RENAL NOVASOURCE 1,000 ML BOTTLE GT PRN (23:37)
[2017-04-04] MEDS: IPRATROPIUM NEB FS 0.5 MG/2.5 ML AMPUL.NEB NEB SCH ×4 (01:19→20:21)
[2017-04-04] MEDS: ALBUTEROL FS 2.5 MG/3 ML VIAL.NEB NEB SCH ×4 (01:19→20:21)
[2017-04-04] MEDS: BACLOFEN (10 MG) 10 MG TABLET GT SCH ×3 (05:22→20:45)
[2017-04-04] MEDS: LEVOTHYROXINE SODIUM 125 MCG TABLET GT SCH (05:23)
[2017-04-04] MEDS: OMEPRAZOLE 20 MG GT SCH (05:23)
[2017-04-04] MEDS: GLYCOPYRROLATE 1 MG TABLET GT SCH ×3 (05:23→18:31)
[2017-04-04 07:57] VITALS: BP 108/65
[2017-04-04] MEDS: ACIDOPHILUS/BULGARICUS 1 EACH TAB.CHEW GT SCH (08:55)
[2017-04-04] MEDS: DOCUSATE SODIUM LIQ 100 MG/10 ML UDC GT SCH (08:55)
[2017-04-04] MEDS: AMIODARONE HCL 200 MG TABLET GT SCH (08:55)
[2017-04-04] MEDS: VITAMINS A AND D 56.7 GM TUBE TP SCH ×2 (08:56→20:45)
[2017-04-04] MEDS: MVI/MINERALS LIQUID (CEROVITE) GT SCH (08:56)
[2017-04-04] MEDS: CLOTRIMAZOLE 1% 15 GM TUBE TP SCH ×2 (08:56→20:45)
[2017-04-04] MEDS: POLYVINYL ALCOHOL 15 ML BOTTLE EACHEYE SCH ×4 (08:56→20:45)
[2017-04-04] MEDS: HEPARIN SODIUM, PORCINE 5000 UNITS/1 ML VIAL SQ SCH ×2 (08:56→20:45)
[2017-04-04] MEDS: POLYETHYLENE GLYCOL 3350 17 GM POWD.PACK GT SCH (08:56)
[2017-04-04] MEDS: POTASSIUM CHLORIDE 20 MEQ/15 ML ML GT SCH (08:56)
[2017-04-04] MEDS: ASCORBIC ACID 500 MG TABLET GT SCH (08:56)
[2017-04-04] MEDS: HYDROGEN PEROXIDE 480 ML BOTTLE TP SCH ×2 (08:56→20:45)
[2017-04-04 20:37] VITALS: BP 112/69
[2017-04-04] MEDS: FINASTERIDE (5 MG) 5 MG TABLET GT SCH (20:45)
[2017-04-04] MEDS: SENNOSIDES 8.6 MG TABLET PO SCH (21:15)
[2017-04-05] MEDS: GLYCOPYRROLATE 1 MG TABLET GT SCH ×4 (00:07→17:27)
[2017-04-05] MEDS: ALBUTEROL FS 2.5 MG/3 ML VIAL.NEB NEB SCH ×4 (01:09→19:28)
[2017-04-05] MEDS: IPRATROPIUM NEB FS 0.5 MG/2.5 ML AMPUL.NEB NEB SCH ×4 (01:09→19:28)
[2017-04-05] MEDS: BACLOFEN (10 MG) 10 MG TABLET GT SCH ×3 (05:08→21:03)
[2017-04-05] MEDS: OMEPRAZOLE 20 MG GT SCH (05:08)
[2017-04-05] MEDS: LEVOTHYROXINE SODIUM 125 MCG TABLET GT SCH (05:08)
[2017-04-05 07:51] VITALS: BP 121/69
[2017-04-05] MEDS: CLOTRIMAZOLE 1% 15 GM TUBE TP SCH ×2 (09:00→21:03)
[2017-04-05] MEDS: VITAMINS A AND D 56.7 GM TUBE TP SCH ×2 (09:00→21:03)
[2017-04-05] MEDS: POTASSIUM CHLORIDE 20 MEQ/15 ML ML GT SCH (09:01)
[2017-04-05] MEDS: ACIDOPHILUS/BULGARICUS 1 EACH TAB.CHEW GT SCH (09:01)
[2017-04-05] MEDS: DOCUSATE SODIUM LIQ 100 MG/10 ML UDC GT SCH (09:01)
[2017-04-05] MEDS: ASCORBIC ACID 500 MG TABLET GT SCH (09:01)
[2017-04-05] MEDS: POLYVINYL ALCOHOL 15 ML BOTTLE EACHEYE SCH ×4 (09:01→21:02)
[2017-04-05] MEDS: MVI/MINERALS LIQUID (CEROVITE) GT SCH (09:01)
[2017-04-05] MEDS: POLYETHYLENE GLYCOL 3350 17 GM POWD.PACK GT SCH (09:01)
[2017-04-05] MEDS: AMIODARONE HCL 200 MG TABLET GT SCH (09:01)
[2017-04-05] MEDS: HEPARIN SODIUM, PORCINE 5000 UNITS/1 ML VIAL SQ SCH ×2 (09:02→21:06)
[2017-04-05] MEDS: HYDROGEN PEROXIDE 480 ML BOTTLE TP SCH ×2 (09:02→21:03)
[2017-04-05] MEDS: RENAL NOVASOURCE 1,000 ML BOTTLE GT PRN (11:41)
[2017-04-05] MEDS: FINASTERIDE (5 MG) 5 MG TABLET GT SCH (20:00)
[2017-04-05] MEDS: SENNOSIDES 8.6 MG TABLET PO SCH (21:06)
[2017-04-06] MEDS: GLYCOPYRROLATE 1 MG TABLET GT SCH ×5 (00:15→23:23)
[2017-04-06] MEDS: ALBUTEROL FS 2.5 MG/3 ML VIAL.NEB NEB SCH ×4 (02:03→19:57)
[2017-04-06] MEDS: IPRATROPIUM NEB FS 0.5 MG/2.5 ML AMPUL.NEB NEB SCH ×4 (02:03→19:57)
[2017-04-06] MEDS: BACLOFEN (10 MG) 10 MG TABLET GT SCH ×3 (05:09→21:11)
[2017-04-06] MEDS: LEVOTHYROXINE SODIUM 125 MCG TABLET GT SCH (05:09)
[2017-04-06] MEDS: OMEPRAZOLE 20 MG GT SCH (05:09)
[2017-04-06 07:39] VITALS: BP 119/58
[2017-04-06] MEDS: POLYETHYLENE GLYCOL 3350 17 GM POWD.PACK GT SCH (08:48)
[2017-04-06] MEDS: AMIODARONE HCL 200 MG TABLET GT SCH (08:48)
[2017-04-06] MEDS: MVI/MINERALS LIQUID (CEROVITE) GT SCH (08:48)
[2017-04-06] MEDS: POTASSIUM CHLORIDE 20 MEQ/15 ML ML GT SCH (08:48)
[2017-04-06] MEDS: DOCUSATE SODIUM LIQ 100 MG/10 ML UDC GT SCH (08:48)
[2017-04-06] MEDS: POLYVINYL ALCOHOL 15 ML BOTTLE EACHEYE SCH ×4 (08:48→21:11)
[2017-04-06] MEDS: ACIDOPHILUS/BULGARICUS 1 EACH TAB.CHEW GT SCH (08:48)
[2017-04-06] MEDS: HYDROGEN PEROXIDE 480 ML BOTTLE TP SCH ×2 (08:48→21:17)
[2017-04-06] MEDS: HEPARIN SODIUM, PORCINE 5000 UNITS/1 ML VIAL SQ SCH ×2 (08:48→21:17)
[2017-04-06] MEDS: ASCORBIC ACID 500 MG TABLET GT SCH (08:48)
[2017-04-06] MEDS: CLOTRIMAZOLE 1% 15 GM TUBE TP SCH (08:48)
[2017-04-06] MEDS: VITAMINS A AND D 56.7 GM TUBE TP SCH ×2 (08:49→21:17)
--- NOTE | 2017-04-06 15:20 | NUR ---
INTERDISCIPLINARY PLAN OF CARE CONFERENCE was held today. Resident's was invited but she did not attend. Dr. David and the Interdisciplinary Team reviewed the current plan of care in detail. Resident completed his antibiotics and is receiving treatment for left medial thigh redness. Resident is continuing with RNA. No new orders were given.
[2017-04-06] MEDS: RENAL NOVASOURCE 1,000 ML BOTTLE GT PRN (19:03)
[2017-04-06 19:57] VITALS: BP 103/63
[2017-04-06] MEDS: FINASTERIDE (5 MG) 5 MG TABLET GT SCH (20:30)
[2017-04-06] MEDS: SENNOSIDES 8.6 MG TABLET PO SCH (21:17)
[2017-04-07] MEDS: IPRATROPIUM NEB FS 0.5 MG/2.5 ML AMPUL.NEB NEB SCH ×4 (01:25→19:17)
[2017-04-07] MEDS: ALBUTEROL FS 2.5 MG/3 ML VIAL.NEB NEB SCH ×4 (01:26→19:17)
[2017-04-07] MEDS: BACLOFEN (10 MG) 10 MG TABLET GT SCH ×3 (05:51→21:43)
[2017-04-07] MEDS: OMEPRAZOLE 20 MG GT SCH (05:51)
[2017-04-07] MEDS: GLYCOPYRROLATE 1 MG TABLET GT SCH ×3 (05:51→17:34)
[2017-04-07] MEDS: LEVOTHYROXINE SODIUM 125 MCG TABLET GT SCH (05:51)
[2017-04-07 07:39] VITALS: BP 121/74
[2017-04-07] MEDS: ACIDOPHILUS/BULGARICUS 1 EACH TAB.CHEW GT SCH (09:07)
[2017-04-07] MEDS: POTASSIUM CHLORIDE 20 MEQ/15 ML ML GT SCH (09:07)
[2017-04-07] MEDS: POLYETHYLENE GLYCOL 3350 17 GM POWD.PACK GT SCH (09:07)
[2017-04-07] MEDS: POLYVINYL ALCOHOL 15 ML BOTTLE EACHEYE SCH ×4 (09:07→21:43)
[2017-04-07] MEDS: ASCORBIC ACID 500 MG TABLET GT SCH (09:07)
[2017-04-07] MEDS: MVI/MINERALS LIQUID (CEROVITE) GT SCH (09:07)
[2017-04-07] MEDS: DOCUSATE SODIUM LIQ 100 MG/10 ML UDC GT SCH (09:07)
[2017-04-07] MEDS: AMIODARONE HCL 200 MG TABLET GT SCH (09:07)
[2017-04-07] MEDS: HEPARIN SODIUM, PORCINE 5000 UNITS/1 ML VIAL SQ SCH ×2 (09:08→21:43)
[2017-04-07] MEDS: VITAMINS A AND D 56.7 GM TUBE TP SCH ×2 (09:08→21:43)
[2017-04-07] MEDS: HYDROGEN PEROXIDE 480 ML BOTTLE TP SCH ×2 (11:15→21:43)
[2017-04-07 19:58] VITALS: BP 101/61
[2017-04-07] MEDS: FINASTERIDE (5 MG) 5 MG TABLET GT SCH (20:00)
[2017-04-07] MEDS: SENNOSIDES 8.6 MG TABLET PO SCH (21:43)
[2017-04-07] MEDS: RENAL NOVASOURCE 1,000 ML BOTTLE GT PRN (21:50)
[2017-04-08] MEDS: GLYCOPYRROLATE 1 MG TABLET GT SCH ×4 (00:33→23:42)
[2017-04-08] MEDS: ALBUTEROL FS 2.5 MG/3 ML VIAL.NEB NEB SCH ×3 (01:57→20:13)
[2017-04-08] MEDS: IPRATROPIUM NEB FS 0.5 MG/2.5 ML AMPUL.NEB NEB SCH ×3 (01:57→20:13)
[2017-04-08] MEDS: OMEPRAZOLE 20 MG GT SCH (05:41)
[2017-04-08] MEDS: LEVOTHYROXINE SODIUM 125 MCG TABLET GT SCH (05:41)
[2017-04-08] MEDS: BACLOFEN (10 MG) 10 MG TABLET GT SCH ×3 (05:41→21:49)
[2017-04-08 08:00] VITALS: BP 130/74
[2017-04-08] MEDS: ACIDOPHILUS/BULGARICUS 1 EACH TAB.CHEW GT SCH (08:51)
[2017-04-08] MEDS: MVI/MINERALS LIQUID (CEROVITE) GT SCH (08:51)
[2017-04-08] MEDS: POLYETHYLENE GLYCOL 3350 17 GM POWD.PACK GT SCH (08:51)
[2017-04-08] MEDS: POLYVINYL ALCOHOL 15 ML BOTTLE EACHEYE SCH ×3 (08:51→21:49)
[2017-04-08] MEDS: AMIODARONE HCL 200 MG TABLET GT SCH (08:51)
[2017-04-08] MEDS: POTASSIUM CHLORIDE 20 MEQ/15 ML ML GT SCH (08:51)
[2017-04-08] MEDS: ASCORBIC ACID 500 MG TABLET GT SCH (08:51)
[2017-04-08] MEDS: DOCUSATE SODIUM LIQ 100 MG/10 ML UDC GT SCH (08:51)
[2017-04-08] MEDS: HYDROGEN PEROXIDE 480 ML BOTTLE TP SCH ×2 (08:52→21:50)
[2017-04-08] MEDS: HEPARIN SODIUM, PORCINE 5000 UNITS/1 ML VIAL SQ SCH ×2 (08:52→21:50)
[2017-04-08] MEDS: VITAMINS A AND D 56.7 GM TUBE TP SCH ×2 (08:53→21:50)
[2017-04-08] MEDS ORDERED: HYDROGEN PEROXIDE 480 ML BOTTLE TP PRN (13:30)
[2017-04-08] MEDS ORDERED: HYDROCODONE/APAP 5/325MG 1 EACH TABLET GT PRN (13:30)
[2017-04-08] MEDS ORDERED: MAG HYDROX/AL HYDROX/SIMETH 30 ML UDC GT PRN (13:30)
[2017-04-08] MEDS ORDERED: LORAZEPAM 0.5 MG TABLET GT PRN (14:00)
[2017-04-08] MEDS ORDERED: ONDANSETRON HCL/PF 4 MG/2 ML VIAL IV PRN (14:00)
[2017-04-08] MEDS: FINASTERIDE (5 MG) 5 MG TABLET GT SCH (20:00)
[2017-04-08 20:09] VITALS: BP 128/72
[2017-04-08] MEDS: SENNOSIDES 8.6 MG TABLET PO SCH (21:50)
[2017-04-09] MEDS: ALBUTEROL FS 2.5 MG/3 ML VIAL.NEB NEB SCH ×4 (01:59→19:37)
[2017-04-09] MEDS: IPRATROPIUM NEB FS 0.5 MG/2.5 ML AMPUL.NEB NEB SCH ×4 (01:59→19:37)
[2017-04-09] MEDS: BACLOFEN (10 MG) 10 MG TABLET GT SCH ×3 (04:31→21:30)
[2017-04-09] MEDS: LEVOTHYROXINE SODIUM 125 MCG TABLET GT SCH (05:31)
[2017-04-09] MEDS: GLYCOPYRROLATE 1 MG TABLET GT SCH ×3 (05:31→17:40)
[2017-04-09] MEDS: OMEPRAZOLE 20 MG GT SCH (05:31)
[2017-04-09 07:50] VITALS: BP 115/71
[2017-04-09] MEDS: POTASSIUM CHLORIDE 20 MEQ/15 ML ML GT SCH (09:31)
[2017-04-09] MEDS: ACIDOPHILUS/BULGARICUS 1 EACH TAB.CHEW GT SCH (09:31)
[2017-04-09] MEDS: MVI/MINERALS LIQUID (CEROVITE) GT SCH (09:31)
[2017-04-09] MEDS: ASCORBIC ACID 500 MG TABLET GT SCH (09:31)
[2017-04-09] MEDS: AMIODARONE HCL 200 MG TABLET GT SCH (09:31)
[2017-04-09] MEDS: POLYETHYLENE GLYCOL 3350 17 GM POWD.PACK GT SCH (09:31)
[2017-04-09] MEDS: POLYVINYL ALCOHOL 15 ML BOTTLE EACHEYE SCH ×4 (09:31→21:30)
[2017-04-09] MEDS: DOCUSATE SODIUM LIQ 100 MG/10 ML UDC GT SCH (09:31)
[2017-04-09] MEDS: HYDROGEN PEROXIDE 480 ML BOTTLE TP SCH ×2 (09:32→21:31)
[2017-04-09] MEDS: HEPARIN SODIUM, PORCINE 5000 UNITS/1 ML VIAL SQ SCH ×2 (09:32→21:30)
[2017-04-09] MEDS: VITAMINS A AND D 56.7 GM TUBE TP SCH ×2 (09:32→21:31)
--- NOTE | 2017-04-09 12:59 | NUR ---
Social Service Section of [facility] (3rd quarter) completed. Resident is uncommunicative. Resident's , Fanny is his conservator and is involved in his care. Discharge to a lower level of care when medically appropriate. states that she feels he will be a resident of subacute alf.
[2017-04-09 19:54] VITALS: BP 116/68
[2017-04-09] MEDS: FINASTERIDE (5 MG) 5 MG TABLET GT SCH (20:00)
[2017-04-09] MEDS: SENNOSIDES 8.6 MG TABLET PO SCH (21:31)
[2017-04-09] MEDS: ZINC OXIDE 30 GM TUBE TP SCH (21:31)
[2017-04-10] MEDS: GLYCOPYRROLATE 1 MG TABLET GT SCH ×5 (00:39→21:18)
[2017-04-10] MEDS: IPRATROPIUM NEB FS 0.5 MG/2.5 ML AMPUL.NEB NEB SCH ×4 (02:23→19:30)
[2017-04-10] MEDS: ALBUTEROL FS 2.5 MG/3 ML VIAL.NEB NEB SCH ×4 (02:23→19:30)
[2017-04-10] MEDS: BACLOFEN (10 MG) 10 MG TABLET GT SCH ×3 (05:51→21:18)
[2017-04-10] MEDS: LEVOTHYROXINE SODIUM 125 MCG TABLET GT SCH (05:51)
[2017-04-10] MEDS: OMEPRAZOLE 20 MG GT SCH (05:51)
[2017-04-10 08:10] VITALS: BP 100/64
[2017-04-10] MEDS: DOCUSATE SODIUM LIQ 100 MG/10 ML UDC GT SCH (09:16)
[2017-04-10] MEDS: MVI/MINERALS LIQUID (CEROVITE) GT SCH (09:16)
[2017-04-10] MEDS: POLYVINYL ALCOHOL 15 ML BOTTLE EACHEYE SCH ×4 (09:16→21:18)
[2017-04-10] MEDS: AMIODARONE HCL 200 MG TABLET GT SCH (09:16)
[2017-04-10] MEDS: POLYETHYLENE GLYCOL 3350 17 GM POWD.PACK GT SCH (09:16)
[2017-04-10] MEDS: ASCORBIC ACID 500 MG TABLET GT SCH (09:16)
[2017-04-10] MEDS: ACIDOPHILUS/BULGARICUS 1 EACH TAB.CHEW GT SCH (09:16)
[2017-04-10] MEDS: POTASSIUM CHLORIDE 20 MEQ/15 ML ML GT SCH (09:16)
[2017-04-10] MEDS: HEPARIN SODIUM, PORCINE 5000 UNITS/1 ML VIAL SQ SCH ×2 (09:17→21:18)
[2017-04-10] MEDS: HYDROGEN PEROXIDE 480 ML BOTTLE TP SCH ×2 (09:17→21:18)
[2017-04-10] MEDS: VITAMINS A AND D 56.7 GM TUBE TP SCH ×2 (09:17→21:18)
[2017-04-10] MEDS: ZINC OXIDE 30 GM TUBE TP SCH ×2 (09:18→21:18)
[2017-04-10 19:35] VITALS: BP 105/59
[2017-04-10] MEDS: FINASTERIDE (5 MG) 5 MG TABLET GT SCH (20:00)
[2017-04-10] MEDS: SENNOSIDES 8.6 MG TABLET PO SCH (21:18)
[2017-04-11] MEDS: IPRATROPIUM NEB FS 0.5 MG/2.5 ML AMPUL.NEB NEB SCH ×4 (01:39→20:08)
[2017-04-11] MEDS: ALBUTEROL FS 2.5 MG/3 ML VIAL.NEB NEB SCH ×4 (01:39→20:08)
[2017-04-11] MEDS: LEVOTHYROXINE SODIUM 125 MCG TABLET GT SCH (05:39)
[2017-04-11] MEDS: OMEPRAZOLE 20 MG GT SCH (05:39)
[2017-04-11] MEDS: BACLOFEN (10 MG) 10 MG TABLET GT SCH ×3 (05:39→21:25)
[2017-04-11] MEDS: GLYCOPYRROLATE 1 MG TABLET GT SCH ×3 (05:39→17:37)
[2017-04-11 07:58] VITALS: BP 113/63
[2017-04-11] MEDS: HYDROGEN PEROXIDE 480 ML BOTTLE TP SCH ×2 (09:00→21:26)
[2017-04-11] MEDS: VITAMINS A AND D 56.7 GM TUBE TP SCH ×2 (09:00→21:27)
[2017-04-11] MEDS: ZINC OXIDE 30 GM TUBE TP SCH ×2 (09:00→21:27)
[2017-04-11] MEDS: DOCUSATE SODIUM LIQ 100 MG/10 ML UDC GT SCH (09:44)
[2017-04-11] MEDS: POLYVINYL ALCOHOL 15 ML BOTTLE EACHEYE SCH ×4 (09:44→21:25)
[2017-04-11] MEDS: ACIDOPHILUS/BULGARICUS 1 EACH TAB.CHEW GT SCH (09:46)
[2017-04-11] MEDS: AMIODARONE HCL 200 MG TABLET GT SCH (09:46)
[2017-04-11] MEDS: POLYETHYLENE GLYCOL 3350 17 GM POWD.PACK GT SCH (09:46)
[2017-04-11] MEDS: MVI/MINERALS LIQUID (CEROVITE) GT SCH (09:46)
[2017-04-11] MEDS: POTASSIUM CHLORIDE 20 MEQ/15 ML ML GT SCH (09:48)
[2017-04-11] MEDS: HEPARIN SODIUM, PORCINE 5000 UNITS/1 ML VIAL SQ SCH ×2 (09:48→21:26)
[2017-04-11] MEDS: ASCORBIC ACID 500 MG TABLET GT SCH (09:48)
[2017-04-11 19:39] VITALS: BP 118/77
[2017-04-11] MEDS: FINASTERIDE (5 MG) 5 MG TABLET GT SCH (20:00)
[2017-04-11] MEDS: NYSTATIN TOP POWDER 15 GM BOTTLE TP SCH ×3 (21:26→21:27)
[2017-04-11] MEDS: SENNOSIDES 8.6 MG TABLET PO SCH (21:27)
[2017-04-12] MEDS: GLYCOPYRROLATE 1 MG TABLET GT SCH ×4 (00:12→17:18)
[2017-04-12] MEDS: ALBUTEROL FS 2.5 MG/3 ML VIAL.NEB NEB SCH ×4 (02:04→19:42)
[2017-04-12] MEDS: IPRATROPIUM NEB FS 0.5 MG/2.5 ML AMPUL.NEB NEB SCH ×4 (02:04→19:42)
[2017-04-12] MEDS: LEVOTHYROXINE SODIUM 125 MCG TABLET GT SCH (05:52)
[2017-04-12] MEDS: OMEPRAZOLE 20 MG GT SCH (05:52)
[2017-04-12] MEDS: BACLOFEN (10 MG) 10 MG TABLET GT SCH ×3 (05:52→20:59)
[2017-04-12] MEDS: RENAL NOVASOURCE 1,000 ML BOTTLE GT PRN (06:00)
[2017-04-12 07:33] VITALS: BP 114/65
[2017-04-12] MEDS: HEPARIN SODIUM, PORCINE 5000 UNITS/1 ML VIAL SQ SCH ×2 (09:00→21:47)
[2017-04-12] MEDS: POLYVINYL ALCOHOL 15 ML BOTTLE EACHEYE SCH ×4 (09:02→20:59)
[2017-04-12] MEDS: AMIODARONE HCL 200 MG TABLET GT SCH (09:02)
[2017-04-12] MEDS: MVI/MINERALS LIQUID (CEROVITE) GT SCH (09:03)
[2017-04-12] MEDS: POLYETHYLENE GLYCOL 3350 17 GM POWD.PACK GT SCH (09:03)
[2017-04-12] MEDS: NYSTATIN TOP POWDER 15 GM BOTTLE TP SCH ×6 (09:04→21:47)
[2017-04-12] MEDS: HYDROGEN PEROXIDE 480 ML BOTTLE TP SCH ×2 (09:04→21:47)
[2017-04-12] MEDS: VITAMINS A AND D 56.7 GM TUBE TP SCH ×2 (09:04→21:47)
[2017-04-12] MEDS: ZINC OXIDE 30 GM TUBE TP SCH ×2 (09:04→21:48)
[2017-04-12] MEDS: ASCORBIC ACID 500 MG TABLET GT SCH (09:04)
[2017-04-12] MEDS: POTASSIUM CHLORIDE 20 MEQ/15 ML ML GT SCH (09:05)
[2017-04-12] MEDS: DOCUSATE SODIUM LIQ 100 MG/10 ML UDC GT SCH (09:05)
--- NOTE | 2017-04-12 09:05 | NUR ---
Notified Dr. David that pt has a reddish gastric aspirate and a temp of 99.5 F. No medications have been given this morning yet. Received order to do CBC, CXR, and UA C/S. Addendum: 04/12/17 at 0911 by NOAH OGDEN RN Notified pt's .
[2017-04-12] MEDS: ACIDOPHILUS/BULGARICUS 1 EACH TAB.CHEW GT SCH (09:06)
--- NOTE | 2017-04-12 09:15 | NUR ---
Heparin held, md aware due to red gastric liquid, aspirated from gt site.
[2017-04-12 10:05] LABS: BASOPHILS % (AUTO) 0.3 % (0.0-2.0); EOSINOPHILS # (AUTO) 0.2 /CMM (0.0-0.7); HEMATOCRIT 40 % (39-51); HEMOGLOBIN 13.4 g/dL (13.5-17.5); LYMPHOCYTES # (AUTO) 3.3 /CMM (0.8-4.8); LYMPHOCYTES % (AUTO) 26.4 % (20.0-44.0); MEAN CORPUSCULAR HEMOGLOBIN 28 PG (26.0-33.0); MEAN CORPUSCULAR HGB CONC 33 g/dl (31.0-36.0); MEAN CORPUSCULAR VOLUME 83 fL (80-96); MONOCYTES # (AUTO) 1.2 /CMM (0.1-1.30); MONOCYTES % (AUTO) 9.6 % (2.0-12.0); NEUTROPHILS # (AUTO) 7.7 /CMM (1.8-8.9); NEUTROPHILS % (AUTO) 61.7 % (43.0-81.0); PLATELET COUNT (AUTO) 298 /CMM (150-450); RDW COEFFICIENT OF VARIATION 20.4 (11.5-15.0); RED BLOOD CELL COUNT(AUTO) 4.85 MIL/uL (4.5-6.0); WHITE BLOOD COUNT (AUTO) 12.5 K/uL (4.3-11.0)
--- NOTE | 2017-04-12 11:04 | NUR ---
Seen by CARMELITA Posada. Notified her of reddish gastric aspirate and orders of Dr. David. Relayed CXR and CBC results to her. No new order. Addendum: 04/12/17 at 1105 by NOAH OGDEN RN CARMELITA Posada ordered to hold Heparin today, no need to hold GT feeding.
[2017-04-12 16:53] LABS: APPEARANCE,URINE CLEAR (CLEAR); BILIRUBIN,URINE NEGATIVE (NEGATIVE); BLOOD, URINE 2+ Ery/uL (NEGATIVE); COLOR,URINE YELLOW (YELLOW); KETONES,URINE NEGATIVE (NEGATIVE); LEUKOCYTE ESTERASE ,URINE 3+ (NEGATIVE); NITRITE, URINE NEGATIVE (NEGATIVE); PH,URINE 7.5 (5.0-8.0); PROTEIN,URINE TRACE mg/dl (NEGATIVE); UGLUCOSE NEGATIVE (NEGATIVE); UROBILINOGEN,URINE 0.2 EU/dL (0.2)
[2017-04-12 17:35] LABS: BACTERIA,URINE Many /HPF (None Seen)
[2017-04-12 17:36] LABS: SQUAMOUS EPITHELIAL CELL,UR Few /HPF (None Seen)
--- NOTE | 2017-04-12 17:43 | NUR ---
temp 99.4, cooling measures provided.
[2017-04-12] MEDS: BISACODYL SUPP (10 MG) 10 MG/SUPP.RECT SUPP.RECT RC PRN (18:42)
[2017-04-12 20:05] VITALS: BP 107/77
[2017-04-12] MEDS: FINASTERIDE (5 MG) 5 MG TABLET GT SCH (20:59)
[2017-04-12] MEDS: SENNOSIDES 8.6 MG TABLET PO SCH (21:48)
[2017-04-13] MEDS: GLYCOPYRROLATE 1 MG TABLET GT SCH ×5 (00:32→23:10)
[2017-04-13] MEDS: ALBUTEROL FS 2.5 MG/3 ML VIAL.NEB NEB SCH ×5 (01:58→19:55)
[2017-04-13] MEDS: IPRATROPIUM NEB FS 0.5 MG/2.5 ML AMPUL.NEB NEB SCH ×4 (01:58→19:55)
[2017-04-13] MEDS: BACLOFEN (10 MG) 10 MG TABLET GT SCH ×3 (05:28→21:17)
[2017-04-13] MEDS: LEVOTHYROXINE SODIUM 125 MCG TABLET GT SCH (05:28)
[2017-04-13] MEDS: OMEPRAZOLE 20 MG GT SCH (05:28)
[2017-04-13] MEDS: RENAL NOVASOURCE 1,000 ML BOTTLE GT PRN (05:30)
--- NOTE | 2017-04-13 06:41 | NUR ---
Pt still noted with gastric residual reddish in color @ 15 cc.No abdominal distention noted.Will continue to monitor and will endorse.
[2017-04-13 08:14] VITALS: BP 135/83
[2017-04-13] MEDS: DOCUSATE SODIUM LIQ 100 MG/10 ML UDC GT SCH (08:29)
[2017-04-13] MEDS: POLYVINYL ALCOHOL 15 ML BOTTLE EACHEYE SCH ×4 (08:29→21:17)
[2017-04-13] MEDS: ACIDOPHILUS/BULGARICUS 1 EACH TAB.CHEW GT SCH (08:30)
[2017-04-13] MEDS: POLYETHYLENE GLYCOL 3350 17 GM POWD.PACK GT SCH (08:30)
[2017-04-13] MEDS: AMIODARONE HCL 200 MG TABLET GT SCH (08:30)
[2017-04-13] MEDS: MVI/MINERALS LIQUID (CEROVITE) GT SCH (08:30)
[2017-04-13] MEDS: POTASSIUM CHLORIDE 20 MEQ/15 ML ML GT SCH (08:31)
[2017-04-13] MEDS: ASCORBIC ACID 500 MG TABLET GT SCH (08:31)
[2017-04-13] MEDS: ACETAMINOPHEN 650 MG/20 ML UDC- FOR SA PATIENTS ONLY GT PRN ×2 (08:32→17:13)
[2017-04-13] MEDS: VITAMINS A AND D 56.7 GM TUBE TP SCH (09:00)
[2017-04-13] MEDS: ZINC OXIDE 30 GM TUBE TP SCH ×2 (09:00→21:17)
[2017-04-13] MEDS: NYSTATIN TOP POWDER 15 GM BOTTLE TP SCH ×6 (09:00→21:17)
[2017-04-13] MEDS: HYDROGEN PEROXIDE 480 ML BOTTLE TP SCH ×2 (09:00→21:17)
--- NOTE | 2017-04-13 09:25 | NUR ---
Notified Dr. David resident vomited dark brown color with approx. 50 cc gastric residual. Tracheal suctioning done obtained secretions blood tinged in color. V/S 155/84,HR 138, 98% on cool aerosol at 28%, T100.2, RR 20, not in acute respiratory distress. New order given to do CBC, CXR and Chem 7, and to hold Heparin, IVF of D5NS ant 125/hr x 2 hours, GI consult and to transfer if another episode occurs. Per nurse mgr. resident's verbalized yesterday that she wants patient to stay in subacute. Dr. David notified of patient's request. Spoke with Sabra from Dr. Marie's office regarding GI consult. Awaiting for MD to call back. All orders noted and carried out. Left a message to resident's to call back regarding above changes and orders.
[2017-04-13 09:32] VITALS: BP 118/72
[2017-04-13 10:23] VITALS: BP 116/70
[2017-04-13 10:59] LABS: BASOPHILS # (AUTO) 0.1 /CMM (0.0-0.2); BASOPHILS % (AUTO) 0.2 % (0.0-2.0); HEMATOCRIT 37 % (39-51); HEMOGLOBIN 12.2 g/dL (13.5-17.5); LYMPHOCYTES # (AUTO) 1.3 /CMM (0.8-4.8); LYMPHOCYTES % (AUTO) 4.5 % (20.0-44.0); MEAN CORPUSCULAR HEMOGLOBIN 27 PG (26.0-33.0); MEAN CORPUSCULAR HGB CONC 33 g/dl (31.0-36.0); MEAN CORPUSCULAR VOLUME 82 fL (80-96); MONOCYTES # (AUTO) 2.6 /CMM (0.1-1.30); NEUTROPHILS # (AUTO) 25.1 /CMM (1.8-8.9); NEUTROPHILS % (AUTO) 86.3 % (43.0-81.0); PLATELET COUNT (AUTO) 353 /CMM (150-450); RDW COEFFICIENT OF VARIATION 20.4 (11.5-15.0); RED BLOOD CELL COUNT(AUTO) 4.46 MIL/uL (4.5-6.0); WHITE BLOOD COUNT (AUTO) 29.1 K/uL (4.3-11.0)
[2017-04-13 11:25] LABS: BAND % (MANUAL) 3 % (0.0-5.0); LYMPHOCYTES % (MANUAL) 4 % (16-48); MONOCYTES % (MANUAL) 13 % (0-11.0); NEUTROPHILS % (MANUAL) 80 (42-76)
[2017-04-13 12:30] VITALS: BP 94/64
[2017-04-13 12:30] LABS: CALCIUM, SERUM 9.2 mg/dL (8.5-10.1); CREATININE 1.9 mg/dL (0.6-1.3); POTASSIUM 5.2 mmol/L (3.5-5.1)
--- NOTE | 2017-04-13 14:00 | NUR ---
Reported CBC result to Dr. David, WBC 29.1 with new order give Merrem IV per pharmacy to dose. [facility] pharmacy notified. Informed Dr. David that according to resident's , she is in agreement to transfer patient if it is absolutely necessary. No further vomiting, HR slowly improving at [address] Marie, program director/music director called and said that he will see patient on Sunday and gave an order to DC Prilosec and change to Protonix. Orders noted and carried out. Mrs. Bradley notified of above orders.
[2017-04-13] MEDS: IV D5/ 0.9% NACL 1,000 ML IV PRN ×2 (14:25→19:58)
--- NOTE | 2017-04-13 16:00 | NUR ---
Notified Dr. David of Chem 7 result, with new order to repeat CBC and Chem 7 in Am and increase IVF to 150 cc/hr for a total of x 3 L. All orders noted and carried out.
[2017-04-13 17:00] VITALS: BP 108/75
--- NOTE | 2017-04-13 18:00 | NUR ---
Dr. Marie seen and examined resident, spoke with patient's who is at bedside. New order given to hold tube feeding for now and resume in AM, Reglan 10mg/GT now then Reglan PRN for N/V.
[2017-04-13] MEDS ORDERED: METOCLOPRAMIDE HCL 10 MG TABLET GT ONE (18:30)
[2017-04-13] MEDS ORDERED: METOCLOPRAMIDE HCL 10 MG TABLET PO PRN (18:30)
[2017-04-13] MEDS: MEROPENEM 1 G in IV NS 0.9% 100 ML IV SCH (18:54)
[2017-04-13] MEDS: FINASTERIDE (5 MG) 5 MG TABLET GT SCH (20:50)
[2017-04-13] MEDS ORDERED: MEROPENEM 1 G in IV NS 0.9% 100 ML IV SCH (21:00)
[2017-04-13] MEDS: SENNOSIDES 8.6 MG TABLET PO SCH (21:17)
[2017-04-13 23:23] VITALS: BP 130/67
[2017-04-14] MEDS: IPRATROPIUM NEB FS 0.5 MG/2.5 ML AMPUL.NEB NEB SCH ×4 (00:47→19:25)
[2017-04-14] MEDS: ALBUTEROL FS 2.5 MG/3 ML VIAL.NEB NEB SCH ×4 (00:47→19:25)
[2017-04-14] MEDS: IV D5/ 0.9% NACL 1,000 ML IV PRN ×2 (02:42→13:34)
[2017-04-14] MEDS: LEVOTHYROXINE SODIUM 125 MCG TABLET GT SCH (05:09)
[2017-04-14] MEDS: BACLOFEN (10 MG) 10 MG TABLET GT SCH ×3 (05:09→21:05)
[2017-04-14] MEDS: GLYCOPYRROLATE 1 MG TABLET GT SCH ×4 (05:09→23:09)
[2017-04-14] MEDS: MEROPENEM 1 G in IV NS 0.9% 100 ML IV SCH ×2 (05:50→18:08)
[2017-04-14] MEDS: RENAL NOVASOURCE 1,000 ML BOTTLE GT PRN (06:43)
--- NOTE | 2017-04-14 06:46 | NUR ---
Pt still on continuous IV hydration D5Ns 150cc/hr x 3 liters.Merrem 1 gm q 12hrs IV given no adverse reaction noted.Pt had no episodes of emesis,or any bloody residual.Afebrile,no discomfort noted.Will continue to monitor.
[2017-04-14 07:42] VITALS: BP 104/63
[2017-04-14] MEDS: POLYVINYL ALCOHOL 15 ML BOTTLE EACHEYE SCH ×4 (09:00→21:04)
[2017-04-14] MEDS: POLYETHYLENE GLYCOL 3350 17 GM POWD.PACK GT SCH (09:00)
[2017-04-14] MEDS: MVI/MINERALS LIQUID (CEROVITE) GT SCH (09:00)
[2017-04-14] MEDS: ACIDOPHILUS/BULGARICUS 1 EACH TAB.CHEW GT SCH (09:00)
[2017-04-14] MEDS: POTASSIUM CHLORIDE 20 MEQ/15 ML ML GT SCH (09:00)
[2017-04-14] MEDS: DOCUSATE SODIUM LIQ 100 MG/10 ML UDC GT SCH (09:00)
[2017-04-14] MEDS: AMIODARONE HCL 200 MG TABLET GT SCH (09:00)
[2017-04-14] MEDS: ASCORBIC ACID 500 MG TABLET GT SCH (09:01)
[2017-04-14] MEDS: NYSTATIN TOP POWDER 15 GM BOTTLE TP SCH ×6 (09:01→21:05)
[2017-04-14] MEDS: ZINC OXIDE 30 GM TUBE TP SCH ×2 (09:01→21:05)
[2017-04-14] MEDS: HYDROGEN PEROXIDE 480 ML BOTTLE TP SCH ×2 (09:01→21:05)
[2017-04-14] MEDS: PANTOPRAZOLE 40 MG/PACK PACK GT SCH (09:01)
--- NOTE | 2017-04-14 09:13 | NUR ---
Notified by laboratory unable to draw blood for CBC and Chem 7 today, that they will send another paint tinter at a later time.
[2017-04-14 11:09] LABS: BASOPHILS % (AUTO) 0.1 % (0.0-2.0); EOSINOPHILS # (AUTO) 0.1 /CMM (0.0-0.7); EOSINOPHILS % (AUTO) 0.6 % (0.0-6.0); HEMATOCRIT 26 % (39-51); HEMOGLOBIN 8.6 g/dL (13.5-17.5); LYMPHOCYTES % (AUTO) 10.9 % (20.0-44.0); MEAN CORPUSCULAR HEMOGLOBIN 28 PG (26.0-33.0); MEAN CORPUSCULAR HGB CONC 33 g/dl (31.0-36.0); MEAN CORPUSCULAR VOLUME 85 fL (80-96); MONOCYTES # (AUTO) 1.3 /CMM (0.1-1.30); MONOCYTES % (AUTO) 7.3 % (2.0-12.0); NEUTROPHILS # (AUTO) 14.8 /CMM (1.8-8.9); NEUTROPHILS % (AUTO) 81.1 % (43.0-81.0); PLATELET COUNT (AUTO) 252 /CMM (150-450); RDW COEFFICIENT OF VARIATION 20.9 (11.5-15.0); RED BLOOD CELL COUNT(AUTO) 3.09 MIL/uL (4.5-6.0); WHITE BLOOD COUNT (AUTO) 18.2 K/uL (4.3-11.0)
[2017-04-14 11:25] LABS: CALCIUM, SERUM 7.9 mg/dL (8.5-10.1); CREATININE 1.6 mg/dL (0.6-1.3); POTASSIUM 3.9 mmol/L (3.5-5.1)
[2017-04-14 11:40] LABS: BAND % (MANUAL) 1 % (0.0-5.0); EOSINOPHILS % (MANUAL) 1 % (0-4); LYMPHOCYTES % (MANUAL) 6 % (16-48); MONOCYTES % (MANUAL) 2 % (0-11.0); NEUTROPHILS % (MANUAL) 90 (42-76)
--- NOTE | 2017-04-14 12:36 | NUR ---
Notified Dr. David of CBC and Chem 7 result including Chest X ray result taken today. new order given to repeat CBC and Chem 7 on Sunday and continue IVF D5NS at 100cc/hr. Orders noted and carried out.
--- NOTE | 2017-04-14 16:45 | NUR ---
Dr. David notifed of final urine cx result with sensitivities showing Morganella Morganii, no changes in current ATB order. Continue on IV Merren, no adverse reaction noted.
[2017-04-14 19:47] VITALS: BP 110/56
[2017-04-14] MEDS: FINASTERIDE (5 MG) 5 MG TABLET GT SCH (20:50)
[2017-04-14] MEDS: SENNOSIDES 8.6 MG TABLET PO SCH (21:05)
[2017-04-15] MEDS: IV D5/ 0.9% NACL 1,000 ML IV PRN (00:57)
[2017-04-15] MEDS: IPRATROPIUM NEB FS 0.5 MG/2.5 ML AMPUL.NEB NEB SCH ×4 (01:09→19:51)
[2017-04-15] MEDS: ALBUTEROL FS 2.5 MG/3 ML VIAL.NEB NEB SCH ×4 (01:09→19:51)
[2017-04-15] MEDS: BACLOFEN (10 MG) 10 MG TABLET GT SCH ×3 (05:30→21:08)
[2017-04-15] MEDS: LEVOTHYROXINE SODIUM 125 MCG TABLET GT SCH (05:30)
[2017-04-15] MEDS: GLYCOPYRROLATE 1 MG TABLET GT SCH ×3 (05:30→17:21)
--- NOTE | 2017-04-15 05:45 | NUR ---
Patient noted G-tube burst/busted Bard Fr 20x6cc. Further assessment made, balloon not intact, no abdominal distention noted. No bleeding, no redness noted at the stoma site. Called CARMELITA Connelly on-call for Dr. Connelly notified patient GT busted and he ordered to insert GT Bard Fr 20x6cc and do KUB STAT to confirm placement orders noted and carried out. Primary nurse also mentioned to CARMELITA Connelly that patient has an standing order to change GT PRN if malfunctioning. Inserted Bard Fr 20x6cc as ordered patient tolerated well. No manifestation of pain or discomfort, no moaning, no facial grimacing noted. Will continue to monitor. KUB done. Awaiting KUB result. Fanny Stephens made aware of the change of condition and she was appreciative of the call. Addendum: 04/15/17 at 0712 by PRITI PÉREZ RN CARMELITA Connelly ordered to hold feeding.
[2017-04-15] MEDS ORDERED: DIATR MEGLU/DIATRIZOATE SODIUM 30 ML BOTTLE (GASTROGRAPHIN) ONE (05:59)
[2017-04-15] MEDS: MEROPENEM 1 G in IV NS 0.9% 100 ML IV SCH ×2 (06:43→18:00)
[2017-04-15] MEDS: RENAL NOVASOURCE 1,000 ML BOTTLE GT PRN (06:58)
--- NOTE | 2017-04-15 07:13 | NUR ---
Paged HUNTER GUIDE Manfred Connelly regarding KUB result awaiting for call back. Will endorsed to the AM nurse.
[2017-04-15 08:00] VITALS: BP 115/61
[2017-04-15] MEDS: DOCUSATE SODIUM LIQ 100 MG/10 ML UDC GT SCH (09:27)
[2017-04-15] MEDS: MVI/MINERALS LIQUID (CEROVITE) GT SCH (09:27)
[2017-04-15] MEDS: AMIODARONE HCL 200 MG TABLET GT SCH (09:27)
[2017-04-15] MEDS: POLYVINYL ALCOHOL 15 ML BOTTLE EACHEYE SCH ×4 (09:27→21:08)
[2017-04-15] MEDS: HYDROGEN PEROXIDE 480 ML BOTTLE TP SCH ×2 (09:27→21:08)
[2017-04-15] MEDS: PANTOPRAZOLE 40 MG/PACK PACK GT SCH (09:27)
[2017-04-15] MEDS: POLYETHYLENE GLYCOL 3350 17 GM POWD.PACK GT SCH (09:27)
[2017-04-15] MEDS: ASCORBIC ACID 500 MG TABLET GT SCH (09:27)
[2017-04-15] MEDS: ACIDOPHILUS/BULGARICUS 1 EACH TAB.CHEW GT SCH (09:27)
[2017-04-15] MEDS: POTASSIUM CHLORIDE 20 MEQ/15 ML ML GT SCH (09:27)
[2017-04-15] MEDS: NYSTATIN TOP POWDER 15 GM BOTTLE TP SCH ×6 (09:28→21:08)
[2017-04-15] MEDS: ZINC OXIDE 30 GM TUBE TP SCH ×2 (09:29→21:08)
--- NOTE | 2017-04-15 10:22 | NUR ---
RN NOtes Spoke with Dr. Paniagua and notified him that Urine culture shows Tavo, Laliti and patient is on Merrem . Said its okay
[2017-04-15] MEDS: FINASTERIDE (5 MG) 5 MG TABLET GT SCH (20:00)
[2017-04-15 20:16] VITALS: BP 140/74
[2017-04-15] MEDS: SENNOSIDES 8.6 MG TABLET PO SCH (21:08)
[2017-04-16] MEDS: GLYCOPYRROLATE 1 MG TABLET GT SCH ×4 (00:15→17:48)
[2017-04-16] MEDS: ALBUTEROL FS 2.5 MG/3 ML VIAL.NEB NEB SCH ×4 (01:03→20:21)
[2017-04-16] MEDS: IPRATROPIUM NEB FS 0.5 MG/2.5 ML AMPUL.NEB NEB SCH ×4 (01:03→20:21)
[2017-04-16] MEDS: BACLOFEN (10 MG) 10 MG TABLET GT SCH ×3 (05:09→21:38)
[2017-04-16] MEDS: LEVOTHYROXINE SODIUM 125 MCG TABLET GT SCH (05:10)
[2017-04-16] MEDS: MEROPENEM 1 G in IV NS 0.9% 100 ML IV SCH ×2 (06:24→18:39)
[2017-04-16 06:36] LABS: EOSINOPHILS # (AUTO) 0.1 /CMM (0.0-0.7); EOSINOPHILS % (AUTO) 0.6 % (0.0-6.0); HEMATOCRIT 25 % (39-51); HEMOGLOBIN 8.2 g/dL (13.5-17.5); LYMPHOCYTES # (AUTO) 2.2 /CMM (0.8-4.8); LYMPHOCYTES % (AUTO) 12.7 % (20.0-44.0); MEAN CORPUSCULAR HEMOGLOBIN 28 PG (26.0-33.0); MEAN CORPUSCULAR HGB CONC 33 g/dl (31.0-36.0); MEAN CORPUSCULAR VOLUME 85 fL (80-96); MONOCYTES # (AUTO) 1.6 /CMM (0.1-1.30); MONOCYTES % (AUTO) 9.2 % (2.0-12.0); NEUTROPHILS # (AUTO) 13.7 /CMM (1.8-8.9); NEUTROPHILS % (AUTO) 77.5 % (43.0-81.0); PLATELET COUNT (AUTO) 256 /CMM (150-450); RDW COEFFICIENT OF VARIATION 20.6 (11.5-15.0); RED BLOOD CELL COUNT(AUTO) 2.94 MIL/uL (4.5-6.0); WHITE BLOOD COUNT (AUTO) 17.7 K/uL (4.3-11.0)
[2017-04-16 07:00] LABS: CALCIUM, SERUM 8.4 mg/dL (8.5-10.1); CREATININE 1.3 mg/dL (0.6-1.3); POTASSIUM 4.3 mmol/L (3.5-5.1)
[2017-04-16 08:00] VITALS: BP 129/71
[2017-04-16] MEDS: ACIDOPHILUS/BULGARICUS 1 EACH TAB.CHEW GT SCH (09:00)
[2017-04-16] MEDS: ASCORBIC ACID 500 MG TABLET GT SCH (09:00)
[2017-04-16] MEDS: POLYVINYL ALCOHOL 15 ML BOTTLE EACHEYE SCH ×4 (09:00→21:38)
[2017-04-16] MEDS: AMIODARONE HCL 200 MG TABLET GT SCH (09:00)
[2017-04-16] MEDS: ERGOCALCIFEROL (VITAMIN D2) 8,000 UNIT/ML GT SCH (09:00)
[2017-04-16] MEDS: MVI/MINERALS LIQUID (CEROVITE) GT SCH (09:00)
[2017-04-16] MEDS: POTASSIUM CHLORIDE 20 MEQ/15 ML ML GT SCH (09:00)
[2017-04-16] MEDS: POLYETHYLENE GLYCOL 3350 17 GM POWD.PACK GT SCH (09:00)
[2017-04-16] MEDS: PANTOPRAZOLE 40 MG/PACK PACK GT SCH (09:00)
[2017-04-16] MEDS: DOCUSATE SODIUM LIQ 100 MG/10 ML UDC GT SCH (09:00)
[2017-04-16] MEDS: HYDROGEN PEROXIDE 480 ML BOTTLE TP SCH ×2 (09:05→21:38)
[2017-04-16] MEDS: ZINC OXIDE 30 GM TUBE TP SCH ×2 (09:05→21:39)
[2017-04-16] MEDS: NYSTATIN TOP POWDER 15 GM BOTTLE TP SCH ×6 (09:05→21:39)
--- NOTE | 2017-04-16 09:45 | NUR ---
Relayed CBC and BMP results to Dr. David. Received order to DC D5NS IV fluid.
--- NOTE | 2017-04-16 16:00 | NUR ---
Seen by Dr. Paniagua. He is aware of pt's urine C/S. No new order.
[2017-04-16 19:52] VITALS: BP 146/77
[2017-04-16] MEDS: FINASTERIDE (5 MG) 5 MG TABLET GT SCH (20:00)
[2017-04-16] MEDS: SENNOSIDES 8.6 MG TABLET PO SCH (21:39)
[2017-04-17] MEDS: GLYCOPYRROLATE 1 MG TABLET GT SCH ×4 (00:13→17:53)
[2017-04-17] MEDS: IPRATROPIUM NEB FS 0.5 MG/2.5 ML AMPUL.NEB NEB SCH ×4 (01:59→19:57)
[2017-04-17] MEDS: ALBUTEROL FS 2.5 MG/3 ML VIAL.NEB NEB SCH ×4 (01:59→19:57)
[2017-04-17] MEDS: BACLOFEN (10 MG) 10 MG TABLET GT SCH ×3 (05:07→21:14)
[2017-04-17] MEDS: LEVOTHYROXINE SODIUM 125 MCG TABLET GT SCH (05:07)
[2017-04-17] MEDS: POTASSIUM CHLORIDE 20 MEQ/15 ML ML GT SCH (09:00)
[2017-04-17] MEDS: DOCUSATE SODIUM LIQ 100 MG/10 ML UDC GT SCH (09:00)
[2017-04-17] MEDS: ZINC OXIDE 30 GM TUBE TP SCH ×2 (09:00→21:14)
[2017-04-17] MEDS: POLYETHYLENE GLYCOL 3350 17 GM POWD.PACK GT SCH (09:00)
[2017-04-17] MEDS: ACIDOPHILUS/BULGARICUS 1 EACH TAB.CHEW GT SCH (09:00)
[2017-04-17] MEDS: ASCORBIC ACID 500 MG TABLET GT SCH (09:00)
[2017-04-17] MEDS: HYDROGEN PEROXIDE 480 ML BOTTLE TP SCH ×2 (09:00→21:14)
[2017-04-17] MEDS: NYSTATIN TOP POWDER 15 GM BOTTLE TP SCH ×6 (09:00→21:14)
[2017-04-17] MEDS: PANTOPRAZOLE 40 MG/PACK PACK GT SCH (09:00)
[2017-04-17] MEDS: POLYVINYL ALCOHOL 15 ML BOTTLE EACHEYE SCH ×4 (09:00→21:14)
[2017-04-17] MEDS: AMIODARONE HCL 200 MG TABLET GT SCH (09:00)
[2017-04-17] MEDS: MVI/MINERALS LIQUID (CEROVITE) GT SCH (09:00)
[2017-04-17] MEDS: MEROPENEM 1 G in IV NS 0.9% 100 ML IV SCH (18:02)
[2017-04-17] MEDS: FINASTERIDE (5 MG) 5 MG TABLET GT SCH (20:00)
[2017-04-17 20:09] VITALS: BP 106/60
[2017-04-17] MEDS: SENNOSIDES 8.6 MG TABLET PO SCH (21:14)
[2017-04-18] MEDS: GLYCOPYRROLATE 1 MG TABLET GT SCH ×3 (00:14→17:03)
[2017-04-18] MEDS: ALBUTEROL FS 2.5 MG/3 ML VIAL.NEB NEB SCH ×4 (01:37→20:21)
[2017-04-18] MEDS: IPRATROPIUM NEB FS 0.5 MG/2.5 ML AMPUL.NEB NEB SCH ×4 (01:37→20:21)
[2017-04-18] MEDS: ZINC OXIDE 30 GM TUBE TP SCH ×2 (09:00→21:47)
[2017-04-18] MEDS: HYDROGEN PEROXIDE 480 ML BOTTLE TP SCH ×2 (09:00→21:46)
[2017-04-18] MEDS: NYSTATIN TOP POWDER 15 GM BOTTLE TP SCH ×6 (09:00→21:47)
--- NOTE | 2017-04-18 09:46 | NUR ---
COLD TYPE COMPOSING MACHINE OPERATOR CALLED LAB SPOKE WITH TECH REGARDING BLOOD CULTURE, BLOOD CULTURE STILL PENDING STATED THAT IT TAKES 5 DAYS WILL BE UP BY 04/19/17
[2017-04-18 09:50] VITALS: BP 105/59
[2017-04-18] MEDS: POLYVINYL ALCOHOL 15 ML BOTTLE EACHEYE SCH ×4 (09:52→21:46)
[2017-04-18] MEDS: DOCUSATE SODIUM LIQ 100 MG/10 ML UDC GT SCH (09:52)
[2017-04-18] MEDS: ACIDOPHILUS/BULGARICUS 1 EACH TAB.CHEW GT SCH (09:53)
[2017-04-18] MEDS: MVI/MINERALS LIQUID (CEROVITE) GT SCH (09:53)
[2017-04-18] MEDS: POLYETHYLENE GLYCOL 3350 17 GM POWD.PACK GT SCH (09:53)
[2017-04-18] MEDS: AMIODARONE HCL 200 MG TABLET GT SCH (09:53)
[2017-04-18] MEDS: POTASSIUM CHLORIDE 20 MEQ/15 ML ML GT SCH (09:55)
[2017-04-18] MEDS: ASCORBIC ACID 500 MG TABLET GT SCH (09:55)
[2017-04-18] MEDS: PANTOPRAZOLE 40 MG/PACK PACK GT SCH (09:55)
[2017-04-18] MEDS: RENAL NOVASOURCE 1,000 ML BOTTLE GT PRN (12:20)
[2017-04-18] MEDS: BACLOFEN (10 MG) 10 MG TABLET GT SCH ×2 (13:00→21:46)
[2017-04-18] MEDS: MEROPENEM 1 G in IV NS 0.9% 100 ML IV SCH (18:00)
[2017-04-18 19:36] VITALS: BP 112/73
[2017-04-18] MEDS: FINASTERIDE (5 MG) 5 MG TABLET GT SCH (20:30)
[2017-04-18] MEDS: SENNOSIDES 8.6 MG TABLET PO SCH (21:47)
[2017-04-19] MEDS: GLYCOPYRROLATE 1 MG TABLET GT SCH ×5 (00:45→23:41)
[2017-04-19] MEDS: ALBUTEROL FS 2.5 MG/3 ML VIAL.NEB NEB SCH ×4 (01:47→20:19)
[2017-04-19] MEDS: IPRATROPIUM NEB FS 0.5 MG/2.5 ML AMPUL.NEB NEB SCH ×4 (01:47→20:19)
[2017-04-19] MEDS: BACLOFEN (10 MG) 10 MG TABLET GT SCH ×3 (05:30→21:58)
[2017-04-19] MEDS: LEVOTHYROXINE SODIUM 125 MCG TABLET GT SCH (05:30)
[2017-04-19] MEDS: MEROPENEM 1 G in IV NS 0.9% 100 ML IV SCH ×2 (05:56→18:00)
[2017-04-19 07:54] VITALS: BP 95/60
[2017-04-19] MEDS: POLYETHYLENE GLYCOL 3350 17 GM POWD.PACK GT SCH (09:00)
[2017-04-19] MEDS: ACIDOPHILUS/BULGARICUS 1 EACH TAB.CHEW GT SCH (09:00)
[2017-04-19] MEDS: AMIODARONE HCL 200 MG TABLET GT SCH (09:00)
[2017-04-19] MEDS: NYSTATIN TOP POWDER 15 GM BOTTLE TP SCH ×6 (09:00→21:58)
[2017-04-19] MEDS: POTASSIUM CHLORIDE 20 MEQ/15 ML ML GT SCH (09:00)
[2017-04-19] MEDS: DOCUSATE SODIUM LIQ 100 MG/10 ML UDC GT SCH (09:00)
[2017-04-19] MEDS: ASCORBIC ACID 500 MG TABLET GT SCH (09:00)
[2017-04-19] MEDS: ZINC OXIDE 30 GM TUBE TP SCH ×2 (09:00→21:58)
[2017-04-19] MEDS: POLYVINYL ALCOHOL 15 ML BOTTLE EACHEYE SCH ×4 (09:00→21:58)
[2017-04-19] MEDS: HYDROGEN PEROXIDE 480 ML BOTTLE TP SCH ×2 (09:00→21:58)
[2017-04-19] MEDS: PANTOPRAZOLE 40 MG/PACK PACK GT SCH (09:00)
[2017-04-19] MEDS: MVI/MINERALS LIQUID (CEROVITE) GT SCH (09:00)
--- NOTE | 2017-04-19 11:31 | NUR ---
Obtained blood c/s result collected on 04/13/17. Final result showed no growth after 5 days. Pt's Fanny notified of result via voicemail.
--- NOTE | 2017-04-19 18:25 | NUR ---
Order obtained from Dr. Paniagua to resume Heparin SQ BID. Pt with no episodes of tracheal or GI bleeding. Pt's Fanny notified of both negative blood c/s result and Heparin being resumed, appreciative of call.
[2017-04-19] MEDS ORDERED: METOCLOPRAMIDE HCL 10 MG TABLET GT PRN (18:30)
[2017-04-19] MEDS: RENAL NOVASOURCE 1,000 ML BOTTLE GT PRN (19:39)
[2017-04-19 19:45] VITALS: BP 109/57
[2017-04-19] MEDS: FINASTERIDE (5 MG) 5 MG TABLET GT SCH (20:00)
[2017-04-19] MEDS: SENNOSIDES 8.6 MG TABLET PO SCH (21:58)
[2017-04-20] MEDS: IPRATROPIUM NEB FS 0.5 MG/2.5 ML AMPUL.NEB NEB SCH ×4 (00:58→19:24)
[2017-04-20] MEDS: ALBUTEROL FS 2.5 MG/3 ML VIAL.NEB NEB SCH ×4 (01:30→19:24)
[2017-04-20] MEDS: LEVOTHYROXINE SODIUM 125 MCG TABLET GT SCH (05:38)
[2017-04-20] MEDS: BACLOFEN (10 MG) 10 MG TABLET GT SCH ×3 (05:38→20:41)
[2017-04-20] MEDS: GLYCOPYRROLATE 1 MG TABLET GT SCH ×4 (05:38→23:10)
[2017-04-20] MEDS: MEROPENEM 1 G in IV NS 0.9% 100 ML IV SCH ×2 (05:57→18:31)
[2017-04-20] MEDS: BISACODYL SUPP (10 MG) 10 MG/SUPP.RECT SUPP.RECT RC PRN (06:24)
[2017-04-20 07:45] VITALS: BP 116/44
[2017-04-20] MEDS: POLYETHYLENE GLYCOL 3350 17 GM POWD.PACK GT SCH (09:42)
[2017-04-20] MEDS: POLYVINYL ALCOHOL 15 ML BOTTLE EACHEYE SCH ×4 (09:42→20:40)
[2017-04-20] MEDS: POTASSIUM CHLORIDE 20 MEQ/15 ML ML GT SCH (09:42)
[2017-04-20] MEDS: DOCUSATE SODIUM LIQ 100 MG/10 ML UDC GT SCH (09:42)
[2017-04-20] MEDS: AMIODARONE HCL 200 MG TABLET GT SCH (09:42)
[2017-04-20] MEDS: PANTOPRAZOLE 40 MG/PACK PACK GT SCH (09:42)
[2017-04-20] MEDS: MVI/MINERALS LIQUID (CEROVITE) GT SCH (09:42)
[2017-04-20] MEDS: ACIDOPHILUS/BULGARICUS 1 EACH TAB.CHEW GT SCH (09:42)
[2017-04-20] MEDS: ASCORBIC ACID 500 MG TABLET GT SCH (09:42)
[2017-04-20] MEDS: NYSTATIN TOP POWDER 15 GM BOTTLE TP SCH ×6 (09:43→21:28)
[2017-04-20] MEDS: ZINC OXIDE 30 GM TUBE TP SCH ×2 (09:43→21:28)
[2017-04-20] MEDS: HEPARIN SODIUM, PORCINE 5000 UNITS/1 ML VIAL SQ SCH ×2 (09:43→20:43)
[2017-04-20] MEDS: HYDROGEN PEROXIDE 480 ML BOTTLE TP SCH ×2 (09:43→21:28)
[2017-04-20 19:42] VITALS: BP 103/61
[2017-04-20] MEDS: FINASTERIDE (5 MG) 5 MG TABLET GT SCH (20:39)
[2017-04-20] MEDS: SENNOSIDES 8.6 MG TABLET PO SCH (21:26)
[2017-04-21] MEDS: ALBUTEROL FS 2.5 MG/3 ML VIAL.NEB NEB SCH ×5 (00:58→19:20)
[2017-04-21] MEDS: IPRATROPIUM NEB FS 0.5 MG/2.5 ML AMPUL.NEB NEB SCH ×5 (00:58→19:20)
[2017-04-21] MEDS: BACLOFEN (10 MG) 10 MG TABLET GT SCH ×3 (05:18→21:14)
[2017-04-21] MEDS: GLYCOPYRROLATE 1 MG TABLET GT SCH ×4 (05:18→23:38)
[2017-04-21] MEDS: LEVOTHYROXINE SODIUM 125 MCG TABLET GT SCH (05:18)
[2017-04-21] MEDS: RENAL NOVASOURCE 1,000 ML BOTTLE GT PRN (05:40)
[2017-04-21] MEDS: MEROPENEM 1 G in IV NS 0.9% 100 ML IV SCH (06:11)
[2017-04-21 07:38] VITALS: BP 109/64
[2017-04-21] MEDS: DOCUSATE SODIUM LIQ 100 MG/10 ML UDC GT SCH (08:33)
[2017-04-21] MEDS: ASCORBIC ACID 500 MG TABLET GT SCH (08:33)
[2017-04-21] MEDS: PANTOPRAZOLE 40 MG/PACK PACK GT SCH (08:33)
[2017-04-21] MEDS: MVI/MINERALS LIQUID (CEROVITE) GT SCH (08:33)
[2017-04-21] MEDS: POTASSIUM CHLORIDE 20 MEQ/15 ML ML GT SCH (08:33)
[2017-04-21] MEDS: AMIODARONE HCL 200 MG TABLET GT SCH (08:33)
[2017-04-21] MEDS: POLYVINYL ALCOHOL 15 ML BOTTLE EACHEYE SCH ×4 (08:33→21:14)
[2017-04-21] MEDS: ACIDOPHILUS/BULGARICUS 1 EACH TAB.CHEW GT SCH (08:33)
[2017-04-21] MEDS: POLYETHYLENE GLYCOL 3350 17 GM POWD.PACK GT SCH (08:33)
[2017-04-21] MEDS: HYDROGEN PEROXIDE 480 ML BOTTLE TP SCH ×2 (08:34→21:14)
[2017-04-21] MEDS: ZINC OXIDE 30 GM TUBE TP SCH ×2 (08:34→21:14)
[2017-04-21] MEDS: NYSTATIN TOP POWDER 15 GM BOTTLE TP SCH ×3 (08:34)
[2017-04-21] MEDS: HEPARIN SODIUM, PORCINE 5000 UNITS/1 ML VIAL SQ SCH ×2 (08:34→21:14)
[2017-04-21 19:51] VITALS: BP 124/82
[2017-04-21] MEDS: FINASTERIDE (5 MG) 5 MG TABLET GT SCH (20:00)
[2017-04-21] MEDS: SENNOSIDES 8.6 MG TABLET PO SCH (21:14)
[2017-04-22] MEDS: IPRATROPIUM NEB FS 0.5 MG/2.5 ML AMPUL.NEB NEB SCH ×4 (01:44→20:26)
[2017-04-22] MEDS: ALBUTEROL FS 2.5 MG/3 ML VIAL.NEB NEB SCH ×4 (01:44→20:26)
[2017-04-22] MEDS: BACLOFEN (10 MG) 10 MG TABLET GT SCH ×3 (05:35→20:38)
[2017-04-22] MEDS: GLYCOPYRROLATE 1 MG TABLET GT SCH ×4 (05:36→23:46)
[2017-04-22] MEDS: LEVOTHYROXINE SODIUM 125 MCG TABLET GT SCH (05:36)
[2017-04-22] MEDS: RENAL NOVASOURCE 1,000 ML BOTTLE GT PRN (05:36)
[2017-04-22 07:52] VITALS: BP 123/68
[2017-04-22] MEDS: POLYETHYLENE GLYCOL 3350 17 GM POWD.PACK GT SCH (09:10)
[2017-04-22] MEDS: POLYVINYL ALCOHOL 15 ML BOTTLE EACHEYE SCH ×4 (09:10→20:38)
[2017-04-22] MEDS: ACIDOPHILUS/BULGARICUS 1 EACH TAB.CHEW GT SCH (09:10)
[2017-04-22] MEDS: AMIODARONE HCL 200 MG TABLET GT SCH (09:10)
[2017-04-22] MEDS: DOCUSATE SODIUM LIQ 100 MG/10 ML UDC GT SCH (09:10)
[2017-04-22] MEDS: POTASSIUM CHLORIDE 20 MEQ/15 ML ML GT SCH (09:10)
[2017-04-22] MEDS: ASCORBIC ACID 500 MG TABLET GT SCH (09:10)
[2017-04-22] MEDS: PANTOPRAZOLE 40 MG/PACK PACK GT SCH (09:10)
[2017-04-22] MEDS: MVI/MINERALS LIQUID (CEROVITE) GT SCH (09:10)
[2017-04-22] MEDS: HEPARIN SODIUM, PORCINE 5000 UNITS/1 ML VIAL SQ SCH ×2 (09:10→20:39)
[2017-04-22] MEDS: HYDROGEN PEROXIDE 480 ML BOTTLE TP SCH ×2 (09:11→20:41)
[2017-04-22] MEDS: ZINC OXIDE 30 GM TUBE TP SCH ×2 (09:11→20:41)
[2017-04-22 19:43] VITALS: BP 97/59
[2017-04-22] MEDS: FINASTERIDE (5 MG) 5 MG TABLET GT SCH (20:38)
[2017-04-22] MEDS: SENNOSIDES 8.6 MG TABLET PO SCH (21:40)
[2017-04-23] MEDS: IPRATROPIUM NEB FS 0.5 MG/2.5 ML AMPUL.NEB NEB SCH ×4 (02:04→19:35)
[2017-04-23] MEDS: ALBUTEROL FS 2.5 MG/3 ML VIAL.NEB NEB SCH ×4 (02:04→19:35)
[2017-04-23] MEDS: GLYCOPYRROLATE 1 MG TABLET GT SCH ×4 (05:49→23:52)
[2017-04-23] MEDS: BACLOFEN (10 MG) 10 MG TABLET GT SCH ×3 (05:49→21:08)
[2017-04-23] MEDS: LEVOTHYROXINE SODIUM 125 MCG TABLET GT SCH (05:49)
[2017-04-23 07:59] VITALS: BP 106/66
[2017-04-23] MEDS: ZINC OXIDE 30 GM TUBE TP SCH ×2 (09:00→21:09)
[2017-04-23] MEDS: HYDROGEN PEROXIDE 480 ML BOTTLE TP SCH ×2 (09:00→21:09)
[2017-04-23] MEDS: POLYVINYL ALCOHOL 15 ML BOTTLE EACHEYE SCH ×4 (09:30→21:08)
[2017-04-23] MEDS: DOCUSATE SODIUM LIQ 100 MG/10 ML UDC GT SCH (09:30)
[2017-04-23] MEDS: AMIODARONE HCL 200 MG TABLET GT SCH (09:31)
[2017-04-23] MEDS: ACIDOPHILUS/BULGARICUS 1 EACH TAB.CHEW GT SCH (09:31)
[2017-04-23] MEDS: POTASSIUM CHLORIDE 20 MEQ/15 ML ML GT SCH (09:31)
[2017-04-23] MEDS: PANTOPRAZOLE 40 MG/PACK PACK GT SCH (09:31)
[2017-04-23] MEDS: MVI/MINERALS LIQUID (CEROVITE) GT SCH (09:31)
[2017-04-23] MEDS: HEPARIN SODIUM, PORCINE 5000 UNITS/1 ML VIAL SQ SCH ×2 (09:31→21:09)
[2017-04-23] MEDS: ASCORBIC ACID 500 MG TABLET GT SCH (09:31)
[2017-04-23] MEDS: POLYETHYLENE GLYCOL 3350 17 GM POWD.PACK GT SCH (09:31)
[2017-04-23] MEDS: RENAL NOVASOURCE 1,000 ML BOTTLE GT PRN (10:52)
--- NOTE | 2017-04-23 18:14 | NUR ---
Seen by Dr. Paniagua. Notified him that the lump on the pt's trach site is growing bigger. He examined pt's lump as well as the ones on the left side of the neck. He said the lumps on the left side of the neck are lymph nodes. He initially ordered to do a biopsy on the lump on the trach site, but pt's who was at bedside refused. Since the does not intend to do any aggressive procedures for the pt, Dr. Paniagua did not order the biopsy anymore. Dr. Paniagua told her that the only purpose of the biopsy would be to see what is going on with the pt, but pt's refused and confirmed that she does not want any biopsy or aggressive procedures for the pt.
[2017-04-23 19:53] VITALS: BP 114/68
[2017-04-23] MEDS: FINASTERIDE (5 MG) 5 MG TABLET GT SCH (20:50)
[2017-04-23] MEDS: SENNOSIDES 8.6 MG TABLET PO SCH (21:09)
[2017-04-24] MEDS: IPRATROPIUM NEB FS 0.5 MG/2.5 ML AMPUL.NEB NEB SCH ×4 (01:23→19:47)
[2017-04-24] MEDS: ALBUTEROL FS 2.5 MG/3 ML VIAL.NEB NEB SCH ×4 (01:23→19:47)
[2017-04-24] MEDS: LEVOTHYROXINE SODIUM 125 MCG TABLET GT SCH (05:01)
[2017-04-24] MEDS: BACLOFEN (10 MG) 10 MG TABLET GT SCH ×3 (05:01→21:03)
[2017-04-24] MEDS: GLYCOPYRROLATE 1 MG TABLET GT SCH ×4 (05:01→23:46)
[2017-04-24 07:40] VITALS: BP 121/82
[2017-04-24] MEDS: DOCUSATE SODIUM LIQ 100 MG/10 ML UDC GT SCH (09:09)
[2017-04-24] MEDS: POLYVINYL ALCOHOL 15 ML BOTTLE EACHEYE SCH ×4 (09:09→21:03)
[2017-04-24] MEDS: MVI/MINERALS LIQUID (CEROVITE) GT SCH (09:10)
[2017-04-24] MEDS: POLYETHYLENE GLYCOL 3350 17 GM POWD.PACK GT SCH (09:10)
[2017-04-24] MEDS: POTASSIUM CHLORIDE 20 MEQ/15 ML ML GT SCH (09:10)
[2017-04-24] MEDS: ACIDOPHILUS/BULGARICUS 1 EACH TAB.CHEW GT SCH (09:10)
[2017-04-24] MEDS: ASCORBIC ACID 500 MG TABLET GT SCH (09:10)
[2017-04-24] MEDS: PANTOPRAZOLE 40 MG/PACK PACK GT SCH (09:10)
[2017-04-24] MEDS: AMIODARONE HCL 200 MG TABLET GT SCH (09:10)
[2017-04-24] MEDS: HEPARIN SODIUM, PORCINE 5000 UNITS/1 ML VIAL SQ SCH ×2 (09:11→21:03)
[2017-04-24] MEDS: HYDROGEN PEROXIDE 480 ML BOTTLE TP SCH ×2 (09:11→21:03)
[2017-04-24] MEDS: ZINC OXIDE 30 GM TUBE TP SCH ×2 (09:11→21:03)
[2017-04-24] MEDS: RENAL NOVASOURCE 1,000 ML BOTTLE GT PRN (19:16)
[2017-04-24] MEDS: FINASTERIDE (5 MG) 5 MG TABLET GT SCH (20:00)
[2017-04-24 20:02] VITALS: BP 92/62
[2017-04-24] MEDS: SENNOSIDES 8.6 MG TABLET PO SCH (21:04)
[2017-04-25] MEDS: ALBUTEROL FS 2.5 MG/3 ML VIAL.NEB NEB SCH ×4 (01:23→20:11)
[2017-04-25] MEDS: IPRATROPIUM NEB FS 0.5 MG/2.5 ML AMPUL.NEB NEB SCH ×4 (01:23→20:11)
[2017-04-25] MEDS: LEVOTHYROXINE SODIUM 125 MCG TABLET GT SCH (05:20)
[2017-04-25] MEDS: GLYCOPYRROLATE 1 MG TABLET GT SCH ×4 (05:20→23:45)
[2017-04-25] MEDS: BACLOFEN (10 MG) 10 MG TABLET GT SCH ×3 (05:20→21:35)
[2017-04-25 07:45] VITALS: BP 120/70
[2017-04-25] MEDS: POLYVINYL ALCOHOL 15 ML BOTTLE EACHEYE SCH ×4 (08:37→21:35)
[2017-04-25] MEDS: DOCUSATE SODIUM LIQ 100 MG/10 ML UDC GT SCH (08:37)
[2017-04-25] MEDS: PANTOPRAZOLE 40 MG/PACK PACK GT SCH (08:38)
[2017-04-25] MEDS: AMIODARONE HCL 200 MG TABLET GT SCH (08:38)
[2017-04-25] MEDS: ACIDOPHILUS/BULGARICUS 1 EACH TAB.CHEW GT SCH (08:38)
[2017-04-25] MEDS: POTASSIUM CHLORIDE 20 MEQ/15 ML ML GT SCH (08:38)
[2017-04-25] MEDS: ASCORBIC ACID 500 MG TABLET GT SCH (08:38)
[2017-04-25] MEDS: POLYETHYLENE GLYCOL 3350 17 GM POWD.PACK GT SCH (08:38)
[2017-04-25] MEDS: MVI/MINERALS LIQUID (CEROVITE) GT SCH (08:38)
[2017-04-25] MEDS: HYDROGEN PEROXIDE 480 ML BOTTLE TP SCH ×2 (08:39→21:36)
[2017-04-25] MEDS: HEPARIN SODIUM, PORCINE 5000 UNITS/1 ML VIAL SQ SCH ×2 (08:39→21:36)
[2017-04-25] MEDS: ZINC OXIDE 30 GM TUBE TP SCH ×2 (08:39→21:36)
[2017-04-25 19:58] VITALS: BP 146/88
[2017-04-25] MEDS: FINASTERIDE (5 MG) 5 MG TABLET GT SCH (20:00)
[2017-04-25] MEDS: SENNOSIDES 8.6 MG TABLET PO SCH (21:36)
[2017-04-26] MEDS: IPRATROPIUM NEB FS 0.5 MG/2.5 ML AMPUL.NEB NEB SCH ×4 (02:07→20:09)
[2017-04-26] MEDS: ALBUTEROL FS 2.5 MG/3 ML VIAL.NEB NEB SCH ×4 (02:07→20:09)
[2017-04-26] MEDS: GLYCOPYRROLATE 1 MG TABLET GT SCH ×3 (05:40→16:56)
[2017-04-26] MEDS: LEVOTHYROXINE SODIUM 125 MCG TABLET GT SCH (05:40)
[2017-04-26] MEDS: BACLOFEN (10 MG) 10 MG TABLET GT SCH ×3 (05:40→21:26)
[2017-04-26] MEDS: RENAL NOVASOURCE 1,000 ML BOTTLE GT PRN (05:41)
[2017-04-26 07:47] VITALS: BP 112/71
[2017-04-26] MEDS: ZINC OXIDE 30 GM TUBE TP SCH ×2 (09:00→21:26)
[2017-04-26] MEDS: MVI/MINERALS LIQUID (CEROVITE) GT SCH (09:00)
[2017-04-26] MEDS: POLYETHYLENE GLYCOL 3350 17 GM POWD.PACK GT SCH (09:00)
[2017-04-26] MEDS: ASCORBIC ACID 500 MG TABLET GT SCH (09:00)
[2017-04-26] MEDS: HEPARIN SODIUM, PORCINE 5000 UNITS/1 ML VIAL SQ SCH ×2 (09:00→21:26)
[2017-04-26] MEDS: AMIODARONE HCL 200 MG TABLET GT SCH (09:00)
[2017-04-26] MEDS: ACIDOPHILUS/BULGARICUS 1 EACH TAB.CHEW GT SCH (09:00)
[2017-04-26] MEDS: HYDROGEN PEROXIDE 480 ML BOTTLE TP SCH ×2 (09:00→21:26)
[2017-04-26] MEDS: PANTOPRAZOLE 40 MG/PACK PACK GT SCH (09:00)
[2017-04-26] MEDS: POTASSIUM CHLORIDE 20 MEQ/15 ML ML GT SCH (09:00)
[2017-04-26] MEDS: DOCUSATE SODIUM LIQ 100 MG/10 ML UDC GT SCH (09:00)
[2017-04-26] MEDS: POLYVINYL ALCOHOL 15 ML BOTTLE EACHEYE SCH ×4 (09:00→21:26)
[2017-04-26] MEDS: FINASTERIDE (5 MG) 5 MG TABLET GT SCH (20:00)
[2017-04-26 20:11] VITALS: BP 131/79
[2017-04-26] MEDS: SENNOSIDES 8.6 MG TABLET PO SCH (21:26)
[2017-04-26] MEDS: MAGNESIUM HYDROXIDE 30 ML UDC GT PRN (23:00)
[2017-04-27] MEDS: GLYCOPYRROLATE 1 MG TABLET GT SCH ×4 (00:11→17:12)
[2017-04-27] MEDS: IPRATROPIUM NEB FS 0.5 MG/2.5 ML AMPUL.NEB NEB SCH ×4 (01:25→20:25)
[2017-04-27] MEDS: ALBUTEROL FS 2.5 MG/3 ML VIAL.NEB NEB SCH ×4 (01:25→20:25)
[2017-04-27] MEDS: LEVOTHYROXINE SODIUM 125 MCG TABLET GT SCH (05:41)
[2017-04-27] MEDS: BACLOFEN (10 MG) 10 MG TABLET GT SCH ×3 (05:41→21:33)
[2017-04-27] MEDS: RENAL NOVASOURCE 1,000 ML BOTTLE GT PRN (05:49)
[2017-04-27 08:04] VITALS: BP 111/67
[2017-04-27] MEDS: PANTOPRAZOLE 40 MG/PACK PACK GT SCH (09:00)
[2017-04-27] MEDS: MVI/MINERALS LIQUID (CEROVITE) GT SCH (09:00)
[2017-04-27] MEDS: ZINC OXIDE 30 GM TUBE TP SCH ×2 (09:00→21:33)
[2017-04-27] MEDS: HYDROGEN PEROXIDE 480 ML BOTTLE TP SCH ×2 (09:00→21:33)
[2017-04-27] MEDS: DOCUSATE SODIUM LIQ 100 MG/10 ML UDC GT SCH (09:00)
[2017-04-27] MEDS: AMIODARONE HCL 200 MG TABLET GT SCH (09:00)
[2017-04-27] MEDS: POTASSIUM CHLORIDE 20 MEQ/15 ML ML GT SCH (09:00)
[2017-04-27] MEDS: ASCORBIC ACID 500 MG TABLET GT SCH (09:00)
[2017-04-27] MEDS: POLYETHYLENE GLYCOL 3350 17 GM POWD.PACK GT SCH (09:00)
[2017-04-27] MEDS: HEPARIN SODIUM, PORCINE 5000 UNITS/1 ML VIAL SQ SCH ×2 (09:00→21:33)
[2017-04-27] MEDS: POLYVINYL ALCOHOL 15 ML BOTTLE EACHEYE SCH ×4 (09:00→21:33)
[2017-04-27] MEDS: ACIDOPHILUS/BULGARICUS 1 EACH TAB.CHEW GT SCH (09:00)
[2017-04-27] MEDS: FINASTERIDE (5 MG) 5 MG TABLET GT SCH (20:00)
[2017-04-27 20:44] VITALS: BP 113/65
[2017-04-27] MEDS: SENNOSIDES 8.6 MG TABLET PO SCH (21:33)
[2017-04-28] MEDS: GLYCOPYRROLATE 1 MG TABLET GT SCH ×5 (00:08→23:45)
[2017-04-28] MEDS: IPRATROPIUM NEB FS 0.5 MG/2.5 ML AMPUL.NEB NEB SCH ×4 (00:49→19:30)
[2017-04-28] MEDS: ALBUTEROL FS 2.5 MG/3 ML VIAL.NEB NEB SCH ×4 (00:49→19:30)
[2017-04-28] MEDS: BACLOFEN (10 MG) 10 MG TABLET GT SCH ×3 (05:27→21:00)
[2017-04-28] MEDS: LEVOTHYROXINE SODIUM 125 MCG TABLET GT SCH (05:27)
[2017-04-28] MEDS: RENAL NOVASOURCE 1,000 ML BOTTLE GT PRN (05:32)
[2017-04-28 07:38] VITALS: BP 118/75
[2017-04-28 07:43] LABS: BASOPHILS % (AUTO) 0.3 % (0.0-2.0); EOSINOPHILS # (AUTO) 0.4 /CMM (0.0-0.7); EOSINOPHILS % (AUTO) 3.7 % (0.0-6.0); HEMATOCRIT 32 % (39-51); HEMOGLOBIN 10.5 g/dL (13.5-17.5); LYMPHOCYTES # (AUTO) 2.6 /CMM (0.8-4.8); MEAN CORPUSCULAR HEMOGLOBIN 27 PG (26.0-33.0); MEAN CORPUSCULAR HGB CONC 33 g/dl (31.0-36.0); MEAN CORPUSCULAR VOLUME 83 fL (80-96); MONOCYTES # (AUTO) 1.1 /CMM (0.1-1.30); MONOCYTES % (AUTO) 10.1 % (2.0-12.0); NEUTROPHILS # (AUTO) 7.1 /CMM (1.8-8.9); NEUTROPHILS % (AUTO) 62.9 % (43.0-81.0); PLATELET COUNT (AUTO) 504 /CMM (150-450); RED BLOOD CELL COUNT(AUTO) 3.87 MIL/uL (4.5-6.0); WHITE BLOOD COUNT (AUTO) 11.3 K/uL (4.3-11.0)
[2017-04-28] MEDS: ZINC OXIDE 30 GM TUBE TP SCH ×2 (09:00→21:00)
[2017-04-28] MEDS: ASCORBIC ACID 500 MG TABLET GT SCH (09:00)
[2017-04-28] MEDS: POLYETHYLENE GLYCOL 3350 17 GM POWD.PACK GT SCH (09:00)
[2017-04-28] MEDS: DOCUSATE SODIUM LIQ 100 MG/10 ML UDC GT SCH (09:00)
[2017-04-28] MEDS: POLYVINYL ALCOHOL 15 ML BOTTLE EACHEYE SCH ×4 (09:00→21:00)
[2017-04-28] MEDS: ACIDOPHILUS/BULGARICUS 1 EACH TAB.CHEW GT SCH (09:00)
[2017-04-28] MEDS: MVI/MINERALS LIQUID (CEROVITE) GT SCH (09:00)
[2017-04-28] MEDS: AMIODARONE HCL 200 MG TABLET GT SCH (09:00)
[2017-04-28] MEDS: PANTOPRAZOLE 40 MG/PACK PACK GT SCH (09:00)
[2017-04-28] MEDS: POTASSIUM CHLORIDE 20 MEQ/15 ML ML GT SCH (09:00)
[2017-04-28] MEDS: HEPARIN SODIUM, PORCINE 5000 UNITS/1 ML VIAL SQ SCH ×2 (09:00→21:00)
[2017-04-28] MEDS: HYDROGEN PEROXIDE 480 ML BOTTLE TP SCH ×2 (09:00→21:00)
--- NOTE | 2017-04-28 18:36 | NUR ---
Notified Millicent that last night resident with T of 99.0, CBC done WBC 11.3, afebrile this shift. No new ordder given at this time. aware of the CBC result.
[2017-04-28] MEDS: FINASTERIDE (5 MG) 5 MG TABLET GT SCH (20:00)
[2017-04-28 20:09] VITALS: BP 118/76
[2017-04-28] MEDS: SENNOSIDES 8.6 MG TABLET PO SCH (22:00)
[2017-04-29] MEDS: IPRATROPIUM NEB FS 0.5 MG/2.5 ML AMPUL.NEB NEB SCH ×4 (01:31→20:17)
[2017-04-29] MEDS: ALBUTEROL FS 2.5 MG/3 ML VIAL.NEB NEB SCH ×4 (01:31→20:17)
[2017-04-29] MEDS: BACLOFEN (10 MG) 10 MG TABLET GT SCH ×3 (05:44→21:08)
[2017-04-29] MEDS: GLYCOPYRROLATE 1 MG TABLET GT SCH ×3 (05:44→18:00)
[2017-04-29] MEDS: LEVOTHYROXINE SODIUM 125 MCG TABLET GT SCH (05:44)
[2017-04-29] MEDS: RENAL NOVASOURCE 1,000 ML BOTTLE GT PRN (05:45)
[2017-04-29 08:05] VITALS: BP 130/70
[2017-04-29] MEDS: DOCUSATE SODIUM LIQ 100 MG/10 ML UDC GT SCH (09:53)
[2017-04-29] MEDS: POLYVINYL ALCOHOL 15 ML BOTTLE EACHEYE SCH ×4 (09:53→21:08)
[2017-04-29] MEDS: POLYETHYLENE GLYCOL 3350 17 GM POWD.PACK GT SCH (09:54)
[2017-04-29] MEDS: MVI/MINERALS LIQUID (CEROVITE) GT SCH (09:54)
[2017-04-29] MEDS: AMIODARONE HCL 200 MG TABLET GT SCH (09:54)
[2017-04-29] MEDS: PANTOPRAZOLE 40 MG/PACK PACK GT SCH (09:54)
[2017-04-29] MEDS: POTASSIUM CHLORIDE 20 MEQ/15 ML ML GT SCH (09:54)
[2017-04-29] MEDS: ASCORBIC ACID 500 MG TABLET GT SCH (09:54)
[2017-04-29] MEDS: ACIDOPHILUS/BULGARICUS 1 EACH TAB.CHEW GT SCH (09:54)
[2017-04-29] MEDS: HYDROGEN PEROXIDE 480 ML BOTTLE TP SCH ×2 (09:55→21:08)
[2017-04-29] MEDS: HEPARIN SODIUM, PORCINE 5000 UNITS/1 ML VIAL SQ SCH ×2 (09:55→21:08)
[2017-04-29] MEDS: ZINC OXIDE 30 GM TUBE TP SCH ×2 (09:55→21:08)
[2017-04-29] MEDS: FINASTERIDE (5 MG) 5 MG TABLET GT SCH (20:00)
[2017-04-29 20:01] VITALS: BP 118/61
[2017-04-29] MEDS: SENNOSIDES 8.6 MG TABLET PO SCH (21:09)
[2017-04-30] MEDS: GLYCOPYRROLATE 1 MG TABLET GT SCH ×5 (00:05→23:33)
[2017-04-30] MEDS: IPRATROPIUM NEB FS 0.5 MG/2.5 ML AMPUL.NEB NEB SCH ×4 (01:08→19:30)
[2017-04-30] MEDS: ALBUTEROL FS 2.5 MG/3 ML VIAL.NEB NEB SCH ×4 (01:08→19:30)
[2017-04-30] MEDS: BACLOFEN (10 MG) 10 MG TABLET GT SCH ×3 (05:40→20:56)
[2017-04-30] MEDS: LEVOTHYROXINE SODIUM 125 MCG TABLET GT SCH (05:40)
[2017-04-30 08:03] VITALS: BP 106/72
[2017-04-30] MEDS: HYDROGEN PEROXIDE 480 ML BOTTLE TP SCH ×2 (09:00→20:57)
[2017-04-30] MEDS: ZINC OXIDE 30 GM TUBE TP SCH ×2 (09:00→20:57)
[2017-04-30] MEDS: AMIODARONE HCL 200 MG TABLET GT SCH (09:23)
[2017-04-30] MEDS: DOCUSATE SODIUM LIQ 100 MG/10 ML UDC GT SCH (09:23)
[2017-04-30] MEDS: ACIDOPHILUS/BULGARICUS 1 EACH TAB.CHEW GT SCH (09:23)
[2017-04-30] MEDS: POLYVINYL ALCOHOL 15 ML BOTTLE EACHEYE SCH ×4 (09:23→20:56)
[2017-04-30] MEDS: POLYETHYLENE GLYCOL 3350 17 GM POWD.PACK GT SCH (09:23)
[2017-04-30] MEDS: MVI/MINERALS LIQUID (CEROVITE) GT SCH (09:24)
[2017-04-30] MEDS: PANTOPRAZOLE 40 MG/PACK PACK GT SCH (09:24)
[2017-04-30] MEDS: ASCORBIC ACID 500 MG TABLET GT SCH (09:24)
[2017-04-30] MEDS: POTASSIUM CHLORIDE 20 MEQ/15 ML ML GT SCH (09:24)
[2017-04-30] MEDS: HEPARIN SODIUM, PORCINE 5000 UNITS/1 ML VIAL SQ SCH ×2 (09:25→20:57)
[2017-04-30] MEDS: RENAL NOVASOURCE 1,000 ML BOTTLE GT PRN (18:33)
[2017-04-30 20:00] VITALS: BP 95/55
[2017-04-30] MEDS: FINASTERIDE (5 MG) 5 MG TABLET GT SCH (20:56)
[2017-04-30] MEDS: SENNOSIDES 8.6 MG TABLET PO SCH (21:43)
[2017-05-01] MEDS: IPRATROPIUM NEB FS 0.5 MG/2.5 ML AMPUL.NEB NEB SCH ×4 (00:46→20:23)
[2017-05-01] MEDS: ALBUTEROL FS 2.5 MG/3 ML VIAL.NEB NEB SCH ×4 (00:46→20:23)
[2017-05-01] MEDS: GLYCOPYRROLATE 1 MG TABLET GT SCH ×3 (05:39→18:14)
[2017-05-01] MEDS: LEVOTHYROXINE SODIUM 125 MCG TABLET GT SCH (05:39)
[2017-05-01] MEDS: BACLOFEN (10 MG) 10 MG TABLET GT SCH ×3 (05:39→20:53)
[2017-05-01 08:09] VITALS: BP 106/69
[2017-05-01] MEDS: DOCUSATE SODIUM LIQ 100 MG/10 ML UDC GT SCH (09:46)
[2017-05-01] MEDS: PANTOPRAZOLE 40 MG/PACK PACK GT SCH (09:46)
[2017-05-01] MEDS: MVI/MINERALS LIQUID (CEROVITE) GT SCH (09:46)
[2017-05-01] MEDS: AMIODARONE HCL 200 MG TABLET GT SCH (09:46)
[2017-05-01] MEDS: POTASSIUM CHLORIDE 20 MEQ/15 ML ML GT SCH (09:46)
[2017-05-01] MEDS: POLYVINYL ALCOHOL 15 ML BOTTLE EACHEYE SCH ×4 (09:46→20:53)
[2017-05-01] MEDS: POLYETHYLENE GLYCOL 3350 17 GM POWD.PACK GT SCH (09:46)
[2017-05-01] MEDS: ACIDOPHILUS/BULGARICUS 1 EACH TAB.CHEW GT SCH (09:46)
[2017-05-01] MEDS: ASCORBIC ACID 500 MG TABLET GT SCH (09:46)
[2017-05-01] MEDS: HEPARIN SODIUM, PORCINE 5000 UNITS/1 ML VIAL SQ SCH ×2 (09:47→20:55)
[2017-05-01] MEDS: ZINC OXIDE 30 GM TUBE TP SCH ×2 (09:47→20:55)
[2017-05-01] MEDS: HYDROGEN PEROXIDE 480 ML BOTTLE TP SCH ×2 (09:47→20:55)
[2017-05-01 19:52] VITALS: BP 103/65
[2017-05-01] MEDS: FINASTERIDE (5 MG) 5 MG TABLET GT SCH (20:53)
[2017-05-01] MEDS: SENNOSIDES 8.6 MG TABLET PO SCH (21:41)
[2017-05-02] MEDS: GLYCOPYRROLATE 1 MG TABLET GT SCH ×5 (00:07→23:56)
[2017-05-02] MEDS: IPRATROPIUM NEB FS 0.5 MG/2.5 ML AMPUL.NEB NEB SCH ×4 (01:56→20:08)
[2017-05-02] MEDS: ALBUTEROL FS 2.5 MG/3 ML VIAL.NEB NEB SCH ×4 (01:56→20:08)
[2017-05-02] MEDS: RENAL NOVASOURCE 1,000 ML BOTTLE GT PRN (04:41)
[2017-05-02] MEDS: LEVOTHYROXINE SODIUM 125 MCG TABLET GT SCH (05:30)
[2017-05-02] MEDS: BACLOFEN (10 MG) 10 MG TABLET GT SCH ×3 (05:30→21:06)
[2017-05-02 07:59] VITALS: BP 131/73
[2017-05-02] MEDS: DOCUSATE SODIUM LIQ 100 MG/10 ML UDC GT SCH ×2 (09:39→21:02)
[2017-05-02] MEDS: POLYVINYL ALCOHOL 15 ML BOTTLE EACHEYE SCH ×4 (09:39→21:05)
[2017-05-02] MEDS: ASCORBIC ACID 500 MG TABLET GT SCH (09:40)
[2017-05-02] MEDS: AMIODARONE HCL 200 MG TABLET GT SCH (09:40)
[2017-05-02] MEDS: MVI/MINERALS LIQUID (CEROVITE) GT SCH ×2 (09:40→21:02)
[2017-05-02] MEDS: ACIDOPHILUS/BULGARICUS 1 EACH TAB.CHEW GT SCH (09:40)
[2017-05-02] MEDS: ZINC OXIDE 30 GM TUBE TP SCH ×2 (09:40→21:08)
[2017-05-02] MEDS: PANTOPRAZOLE 40 MG/PACK PACK GT SCH (09:40)
[2017-05-02] MEDS: HYDROGEN PEROXIDE 480 ML BOTTLE TP SCH ×2 (09:40→21:08)
[2017-05-02] MEDS: POTASSIUM CHLORIDE 20 MEQ/15 ML ML GT SCH (09:40)
[2017-05-02] MEDS: POLYETHYLENE GLYCOL 3350 17 GM POWD.PACK GT SCH (09:40)
[2017-05-02] MEDS: HEPARIN SODIUM, PORCINE 5000 UNITS/1 ML VIAL SQ SCH ×2 (09:40→21:08)
[2017-05-02 19:41] VITALS: BP 114/68
[2017-05-02] MEDS: FINASTERIDE (5 MG) 5 MG TABLET GT SCH (20:00)
[2017-05-02] MEDS: SENNOSIDES 8.6 MG TABLET PO SCH (21:42)
[2017-05-03] MEDS: IPRATROPIUM NEB FS 0.5 MG/2.5 ML AMPUL.NEB NEB SCH ×4 (02:09→20:11)
[2017-05-03] MEDS: ALBUTEROL FS 2.5 MG/3 ML VIAL.NEB NEB SCH ×4 (02:09→20:11)
[2017-05-03] MEDS: LEVOTHYROXINE SODIUM 125 MCG TABLET GT SCH (05:21)
[2017-05-03] MEDS: BACLOFEN (10 MG) 10 MG TABLET GT SCH ×3 (05:21→21:19)
[2017-05-03] MEDS: GLYCOPYRROLATE 1 MG TABLET GT SCH ×4 (05:21→23:22)
[2017-05-03 08:00] VITALS: BP 102/55
[2017-05-03] MEDS: POLYVINYL ALCOHOL 15 ML BOTTLE EACHEYE SCH ×4 (09:00→21:19)
[2017-05-03] MEDS: ACIDOPHILUS/BULGARICUS 1 EACH TAB.CHEW GT SCH (09:00)
[2017-05-03] MEDS: AMIODARONE HCL 200 MG TABLET GT SCH (09:00)
[2017-05-03] MEDS: HYDROGEN PEROXIDE 480 ML BOTTLE TP SCH ×2 (09:00→21:19)
[2017-05-03] MEDS: ZINC OXIDE 30 GM TUBE TP SCH ×2 (09:00→21:19)
[2017-05-03] MEDS: POTASSIUM CHLORIDE 20 MEQ/15 ML ML GT SCH (09:00)
[2017-05-03] MEDS: HEPARIN SODIUM, PORCINE 5000 UNITS/1 ML VIAL SQ SCH ×2 (09:00→21:19)
[2017-05-03] MEDS: PANTOPRAZOLE 40 MG/PACK PACK GT SCH (09:00)
[2017-05-03] MEDS: POLYETHYLENE GLYCOL 3350 17 GM POWD.PACK GT SCH (09:00)
[2017-05-03 19:40] VITALS: BP 101/63
[2017-05-03] MEDS: FINASTERIDE (5 MG) 5 MG TABLET GT SCH (20:00)
[2017-05-03] MEDS: DOCUSATE SODIUM LIQ 100 MG/10 ML UDC GT SCH (21:19)
[2017-05-03] MEDS: MVI/MINERALS LIQUID (CEROVITE) GT SCH (21:19)
[2017-05-03] MEDS: SENNOSIDES 8.6 MG TABLET PO SCH (21:19)
[2017-05-03] MEDS: ASCORBIC ACID 500 MG TABLET GT SCH (21:19)
[2017-05-03] MEDS: ACETAMINOPHEN 650 MG/20 ML UDC- FOR SA PATIENTS ONLY GT PRN (21:20)
[2017-05-03] MEDS: RENAL NOVASOURCE 1,000 ML BOTTLE GT PRN (21:20)
[2017-05-04] MEDS: IPRATROPIUM NEB FS 0.5 MG/2.5 ML AMPUL.NEB NEB SCH ×4 (02:16→19:33)
[2017-05-04] MEDS: ALBUTEROL FS 2.5 MG/3 ML VIAL.NEB NEB SCH ×4 (02:17→19:33)
[2017-05-04] MEDS: BACLOFEN (10 MG) 10 MG TABLET GT SCH ×3 (05:12→20:36)
[2017-05-04] MEDS: LEVOTHYROXINE SODIUM 125 MCG TABLET GT SCH (05:12)
[2017-05-04] MEDS: GLYCOPYRROLATE 1 MG TABLET GT SCH ×4 (05:12→23:39)
[2017-05-04 07:41] VITALS: BP 100/67
[2017-05-04] MEDS: POLYVINYL ALCOHOL 15 ML BOTTLE EACHEYE SCH ×4 (09:41→20:35)
[2017-05-04] MEDS: ASCORBIC ACID 500 MG TABLET GT SCH (09:41)
[2017-05-04] MEDS: PANTOPRAZOLE 40 MG/PACK PACK GT SCH (09:41)
[2017-05-04] MEDS: POLYETHYLENE GLYCOL 3350 17 GM POWD.PACK GT SCH (09:41)
[2017-05-04] MEDS: AMIODARONE HCL 200 MG TABLET GT SCH (09:41)
[2017-05-04] MEDS: ACIDOPHILUS/BULGARICUS 1 EACH TAB.CHEW GT SCH (09:41)
[2017-05-04] MEDS: POTASSIUM CHLORIDE 20 MEQ/15 ML ML GT SCH (09:41)
[2017-05-04] MEDS: HEPARIN SODIUM, PORCINE 5000 UNITS/1 ML VIAL SQ SCH ×2 (09:42→20:36)
[2017-05-04] MEDS: HYDROGEN PEROXIDE 480 ML BOTTLE TP SCH ×2 (09:43→20:36)
[2017-05-04] MEDS: ZINC OXIDE 30 GM TUBE TP SCH ×2 (09:43→20:36)
[2017-05-04 10:08] LABS: BASOPHILS % (AUTO) 0.2 % (0.0-2.0); EOSINOPHILS # (AUTO) 0.3 /CMM (0.0-0.7); EOSINOPHILS % (AUTO) 2.4 % (0.0-6.0); HEMATOCRIT 34 % (39-51); LYMPHOCYTES # (AUTO) 2.4 /CMM (0.8-4.8); MEAN CORPUSCULAR HEMOGLOBIN 27 PG (26.0-33.0); MEAN CORPUSCULAR HGB CONC 32 g/dl (31.0-36.0); MEAN CORPUSCULAR VOLUME 84 fL (80-96); MONOCYTES # (AUTO) 1.5 /CMM (0.1-1.30); MONOCYTES % (AUTO) 10.7 % (2.0-12.0); NEUTROPHILS # (AUTO) 9.7 /CMM (1.8-8.9); NEUTROPHILS % (AUTO) 69.7 % (43.0-81.0); PLATELET COUNT (AUTO) 206 /CMM (150-450); RDW COEFFICIENT OF VARIATION 18.1 (11.5-15.0); RED BLOOD CELL COUNT(AUTO) 4.06 MIL/uL (4.5-6.0); WHITE BLOOD COUNT (AUTO) 13.9 K/uL (4.3-11.0)
--- NOTE | 2017-05-04 12:10 | NUR ---
Seen and examined by Vivian Posada NP for Dr. David, patient with low grade T last night 99.0, new order given to do CBC. Notified CARMELITA Ricks of WBC result 13.9 (/). NNO given at this time, but practitioner will see patient later today.
--- NOTE | 2017-05-04 13:58 | NUR ---
IDT meeting held, family unable to attend the meeting. Reviewed current medication orders, treatment and labs. NNO given at this time.
--- NOTE | 2017-05-04 19:30 | NUR ---
Notified Millicent MAE pt had low grade temp last night 99.0 and urine output with sediments.New order to collect urine for culture.Pt at bedside and notified with new order.
[2017-05-04 19:32] VITALS: BP 133/53
[2017-05-04] MEDS: FINASTERIDE (5 MG) 5 MG TABLET GT SCH (20:35)
[2017-05-04] MEDS: DOCUSATE SODIUM LIQ 100 MG/10 ML UDC GT SCH (20:35)
[2017-05-04] MEDS: MULTIVIT, IRON, MIN NO. 8, FA 1 TAB GT SCH (20:36)
[2017-05-04] MEDS: SENNOSIDES 8.6 MG TABLET PO SCH (21:25)
[2017-05-05] MEDS: IPRATROPIUM NEB FS 0.5 MG/2.5 ML AMPUL.NEB NEB SCH ×4 (02:00→20:16)
[2017-05-05] MEDS: ALBUTEROL FS 2.5 MG/3 ML VIAL.NEB NEB SCH ×4 (02:00→20:16)
[2017-05-05] MEDS: BACLOFEN (10 MG) 10 MG TABLET GT SCH ×3 (05:25→21:00)
[2017-05-05] MEDS: LEVOTHYROXINE SODIUM 125 MCG TABLET GT SCH (05:25)
[2017-05-05] MEDS: RENAL NOVASOURCE 1,000 ML BOTTLE GT PRN (05:25)
[2017-05-05] MEDS: GLYCOPYRROLATE 1 MG TABLET GT SCH ×4 (05:25→23:01)
[2017-05-05 07:44] VITALS: BP 132/75
[2017-05-05] MEDS: POLYVINYL ALCOHOL 15 ML BOTTLE EACHEYE SCH ×4 (09:07→21:00)
[2017-05-05] MEDS: PANTOPRAZOLE 40 MG/PACK PACK GT SCH (09:18)
[2017-05-05] MEDS: AMIODARONE HCL 200 MG TABLET GT SCH (09:18)
[2017-05-05] MEDS: ACIDOPHILUS/BULGARICUS 1 EACH TAB.CHEW GT SCH (09:18)
[2017-05-05] MEDS: POLYETHYLENE GLYCOL 3350 17 GM POWD.PACK GT SCH (09:18)
[2017-05-05] MEDS: ASCORBIC ACID 500 MG TABLET GT SCH (09:18)
[2017-05-05] MEDS: POTASSIUM CHLORIDE 20 MEQ/15 ML ML GT SCH (09:18)
[2017-05-05] MEDS: HEPARIN SODIUM, PORCINE 5000 UNITS/1 ML VIAL SQ SCH ×2 (09:19→21:00)
[2017-05-05] MEDS: HYDROGEN PEROXIDE 480 ML BOTTLE TP SCH ×2 (09:19→21:00)
[2017-05-05] MEDS: ZINC OXIDE 30 GM TUBE TP SCH ×2 (09:19→21:00)
--- NOTE | 2017-05-05 12:30 | NUR ---
CARMELITA Ricks ID seen labs and microbiology, urine culture result pending, stated she will review the result tomorrow and will place an order if necessary. Dr. David seen a photo taken from resident's neck area. The lump under trach site has gotten bigger. According to Dr. David this could be a granulation tissue and family does not want anything done. Continue to monitor.
[2017-05-05] MEDS: ACETAMINOPHEN 650 MG/20 ML UDC- FOR SA PATIENTS ONLY GT PRN (14:22)
[2017-05-05] MEDS: MAGNESIUM HYDROXIDE 30 ML UDC GT PRN (18:56)
[2017-05-05 19:38] VITALS: BP 104/65
[2017-05-05] MEDS: FINASTERIDE (5 MG) 5 MG TABLET GT SCH (20:00)
[2017-05-05] MEDS: DOCUSATE SODIUM LIQ 100 MG/10 ML UDC GT SCH (21:00)
[2017-05-05] MEDS: MULTIVIT, IRON, MIN NO. 8, FA 1 TAB GT SCH (21:00)
[2017-05-05] MEDS: SENNOSIDES 8.6 MG TABLET PO SCH (22:00)
[2017-05-06] MEDS: ALBUTEROL FS 2.5 MG/3 ML VIAL.NEB NEB SCH ×4 (02:29→19:38)
[2017-05-06] MEDS: IPRATROPIUM NEB FS 0.5 MG/2.5 ML AMPUL.NEB NEB SCH ×4 (02:29→19:38)
[2017-05-06] MEDS: BACLOFEN (10 MG) 10 MG TABLET GT SCH ×3 (05:00→20:59)
[2017-05-06] MEDS: GLYCOPYRROLATE 1 MG TABLET GT SCH ×3 (06:06→18:13)
[2017-05-06] MEDS: LEVOTHYROXINE SODIUM 125 MCG TABLET GT SCH (06:06)
[2017-05-06 08:00] VITALS: BP 111/66
[2017-05-06] MEDS: AMIODARONE HCL 200 MG TABLET GT SCH (09:25)
[2017-05-06] MEDS: POTASSIUM CHLORIDE 20 MEQ/15 ML ML GT SCH (09:25)
[2017-05-06] MEDS: PANTOPRAZOLE 40 MG/PACK PACK GT SCH (09:25)
[2017-05-06] MEDS: HEPARIN SODIUM, PORCINE 5000 UNITS/1 ML VIAL SQ SCH ×2 (09:25→21:00)
[2017-05-06] MEDS: ASCORBIC ACID 500 MG TABLET GT SCH (09:25)
[2017-05-06] MEDS: ACIDOPHILUS/BULGARICUS 1 EACH TAB.CHEW GT SCH (09:25)
[2017-05-06] MEDS: POLYVINYL ALCOHOL 15 ML BOTTLE EACHEYE SCH ×4 (09:25→20:59)
[2017-05-06] MEDS: POLYETHYLENE GLYCOL 3350 17 GM POWD.PACK GT SCH (09:25)
[2017-05-06] MEDS: ZINC OXIDE 30 GM TUBE TP SCH ×2 (09:26→21:00)
[2017-05-06] MEDS: HYDROGEN PEROXIDE 480 ML BOTTLE TP SCH ×2 (09:26→21:00)
[2017-05-06] MEDS: RENAL NOVASOURCE 1,000 ML BOTTLE GT PRN (16:37)
[2017-05-06 19:51] VITALS: BP 102/69
[2017-05-06] MEDS: FINASTERIDE (5 MG) 5 MG TABLET GT SCH (20:58)
[2017-05-06] MEDS: DOCUSATE SODIUM LIQ 100 MG/10 ML UDC GT SCH (20:59)
[2017-05-06] MEDS: MULTIVIT, IRON, MIN NO. 8, FA 1 TAB GT SCH (20:59)
[2017-05-06] MEDS: SENNOSIDES 8.6 MG TABLET PO SCH (21:00)
[2017-05-07] MEDS: GLYCOPYRROLATE 1 MG TABLET GT SCH ×4 (00:31→17:48)
[2017-05-07] MEDS: ALBUTEROL FS 2.5 MG/3 ML VIAL.NEB NEB SCH ×4 (01:00→19:48)
[2017-05-07] MEDS: IPRATROPIUM NEB FS 0.5 MG/2.5 ML AMPUL.NEB NEB SCH ×4 (01:00→19:48)
[2017-05-07] MEDS: BACLOFEN (10 MG) 10 MG TABLET GT SCH ×3 (05:35→20:05)
[2017-05-07] MEDS: LEVOTHYROXINE SODIUM 125 MCG TABLET GT SCH (05:35)
[2017-05-07 08:12] VITALS: BP 104/50
[2017-05-07] MEDS: POLYVINYL ALCOHOL 15 ML BOTTLE EACHEYE SCH ×4 (09:00→20:05)
[2017-05-07] MEDS: ASCORBIC ACID 500 MG TABLET GT SCH (09:00)
[2017-05-07] MEDS: PANTOPRAZOLE 40 MG/PACK PACK GT SCH (09:00)
[2017-05-07] MEDS: ACIDOPHILUS/BULGARICUS 1 EACH TAB.CHEW GT SCH (09:00)
[2017-05-07] MEDS: POLYETHYLENE GLYCOL 3350 17 GM POWD.PACK GT SCH (09:00)
[2017-05-07] MEDS: AMIODARONE HCL 200 MG TABLET GT SCH (09:00)
[2017-05-07] MEDS: POTASSIUM CHLORIDE 20 MEQ/15 ML ML GT SCH (09:00)
[2017-05-07] MEDS: HEPARIN SODIUM, PORCINE 5000 UNITS/1 ML VIAL SQ SCH ×2 (09:00→20:06)
[2017-05-07] MEDS: ZINC OXIDE 30 GM TUBE TP SCH ×2 (11:00→20:06)
[2017-05-07] MEDS: HYDROGEN PEROXIDE 480 ML BOTTLE TP SCH ×2 (11:00→20:06)
--- NOTE | 2017-05-07 18:17 | NUR ---
Relayed urine C/S result to CARMELITA Ricks. Urine C/S result shows Proteus mirabilis. No new order.
[2017-05-07] MEDS: RENAL NOVASOURCE 1,000 ML BOTTLE GT PRN (18:32)
[2017-05-07] MEDS: MULTIVIT, IRON, MIN NO. 8, FA 1 TAB GT SCH (20:05)
[2017-05-07] MEDS: FINASTERIDE (5 MG) 5 MG TABLET GT SCH (20:05)
[2017-05-07] MEDS: DOCUSATE SODIUM LIQ 100 MG/10 ML UDC GT SCH (20:05)
[2017-05-07 20:13] VITALS: BP 107/60
[2017-05-07] MEDS: SENNOSIDES 8.6 MG TABLET PO SCH (21:28)
[2017-05-08] MEDS: GLYCOPYRROLATE 1 MG TABLET GT SCH ×5 (00:31→23:14)
[2017-05-08] MEDS: ALBUTEROL FS 2.5 MG/3 ML VIAL.NEB NEB SCH ×4 (02:01→20:03)
[2017-05-08] MEDS: IPRATROPIUM NEB FS 0.5 MG/2.5 ML AMPUL.NEB NEB SCH ×4 (02:01→20:03)
[2017-05-08] MEDS: LEVOTHYROXINE SODIUM 125 MCG TABLET GT SCH (05:28)
[2017-05-08] MEDS: BACLOFEN (10 MG) 10 MG TABLET GT SCH ×3 (05:28→20:06)
[2017-05-08 07:45] VITALS: BP 153/75
[2017-05-08] MEDS: POLYVINYL ALCOHOL 15 ML BOTTLE EACHEYE SCH ×4 (09:12→20:06)
[2017-05-08] MEDS: ACIDOPHILUS/BULGARICUS 1 EACH TAB.CHEW GT SCH (09:13)
[2017-05-08] MEDS: AMIODARONE HCL 200 MG TABLET GT SCH (09:13)
[2017-05-08] MEDS: ASCORBIC ACID 500 MG TABLET GT SCH (09:13)
[2017-05-08] MEDS: POLYETHYLENE GLYCOL 3350 17 GM POWD.PACK GT SCH (09:13)
[2017-05-08] MEDS: POTASSIUM CHLORIDE 20 MEQ/15 ML ML GT SCH (09:13)
[2017-05-08] MEDS: PANTOPRAZOLE 40 MG/PACK PACK GT SCH (09:13)
[2017-05-08] MEDS: HEPARIN SODIUM, PORCINE 5000 UNITS/1 ML VIAL SQ SCH ×2 (09:14→20:06)
[2017-05-08] MEDS: ZINC OXIDE 30 GM TUBE TP SCH ×2 (11:00→20:06)
[2017-05-08] MEDS: HYDROGEN PEROXIDE 480 ML BOTTLE TP SCH ×2 (11:00→20:06)
[2017-05-08] MEDS: RENAL NOVASOURCE 1,000 ML BOTTLE GT PRN (18:09)
[2017-05-08] MEDS: FINASTERIDE (5 MG) 5 MG TABLET GT SCH (20:06)
[2017-05-08] MEDS: MULTIVIT, IRON, MIN NO. 8, FA 1 TAB GT SCH (20:06)
[2017-05-08] MEDS: DOCUSATE SODIUM LIQ 100 MG/10 ML UDC GT SCH (20:06)
[2017-05-08 20:18] VITALS: BP 104/57
[2017-05-08] MEDS: SENNOSIDES 8.6 MG TABLET PO SCH (21:17)
[2017-05-09] MEDS: ALBUTEROL FS 2.5 MG/3 ML VIAL.NEB NEB SCH ×4 (01:30→20:10)
[2017-05-09] MEDS: IPRATROPIUM NEB FS 0.5 MG/2.5 ML AMPUL.NEB NEB SCH ×4 (01:30→20:10)
[2017-05-09] MEDS: GLYCOPYRROLATE 1 MG TABLET GT SCH ×4 (05:33→23:15)
[2017-05-09] MEDS: LEVOTHYROXINE SODIUM 125 MCG TABLET GT SCH (05:33)
[2017-05-09] MEDS: BACLOFEN (10 MG) 10 MG TABLET GT SCH ×3 (05:33→20:07)
[2017-05-09 08:00] VITALS: BP 120/62
[2017-05-09] MEDS: POTASSIUM CHLORIDE 20 MEQ/15 ML ML GT SCH (09:58)
[2017-05-09] MEDS: PANTOPRAZOLE 40 MG/PACK PACK GT SCH (09:58)
[2017-05-09] MEDS: POLYVINYL ALCOHOL 15 ML BOTTLE EACHEYE SCH ×4 (09:58→20:07)
[2017-05-09] MEDS: AMIODARONE HCL 200 MG TABLET GT SCH (09:58)
[2017-05-09] MEDS: ASCORBIC ACID 500 MG TABLET GT SCH (09:58)
[2017-05-09] MEDS: ACIDOPHILUS/BULGARICUS 1 EACH TAB.CHEW GT SCH (09:58)
[2017-05-09] MEDS: POLYETHYLENE GLYCOL 3350 17 GM POWD.PACK GT SCH (09:58)
[2017-05-09] MEDS: ZINC OXIDE 30 GM TUBE TP SCH ×2 (09:59→20:08)
[2017-05-09] MEDS: HEPARIN SODIUM, PORCINE 5000 UNITS/1 ML VIAL SQ SCH ×2 (09:59→20:08)
[2017-05-09] MEDS: HYDROGEN PEROXIDE 480 ML BOTTLE TP SCH ×2 (09:59→20:08)
--- NOTE | 2017-05-09 10:10 | NUR ---
Notified CARMELITA Ricks resident with T 102.1, 144/83, HR 124, RR 20 99%, new order given to do BCx2 and urine culture. Order noted and carried out.
[2017-05-09] MEDS: ACETAMINOPHEN 650 MG/20 ML UDC- FOR SA PATIENTS ONLY GT PRN (10:24)
--- NOTE | 2017-05-09 16:00 | NUR ---
Seen and examined by Dr. Nanette Hinojosa oncologist. Reported that resident's lump under the trach site is getting bigger, warm to touch and hard. Dr. Hinojosa stated that family does not want anything done anymore. Mrs. Bradley notified on the phone re: increase in temperature and orders given by MD. Mrs. Bradley at bedside was asked what her plan regarding the increasing lump in the patient's throat. Mrs. Bradley said that there is nothing to be done anymore. She even said that "he is now DNR and the lumps are spreading all over his neck." Respected Mrs. Bradley's decision. Addendum: 05/09/17 at 1822 by JAYSON THOMAS RN V/s 102/55, 102, 99.1
--- NOTE | 2017-05-09 18:50 | NUR ---
Seen and examined by CARMELITA Ricks ID she stated that she will put her on ATB, Endorsed to incoming shift.
[2017-05-09] MEDS: MULTIVIT, IRON, MIN NO. 8, FA 1 TAB GT SCH (20:07)
[2017-05-09] MEDS: DOCUSATE SODIUM LIQ 100 MG/10 ML UDC GT SCH (20:07)
[2017-05-09] MEDS: FINASTERIDE (5 MG) 5 MG TABLET GT SCH (20:07)
[2017-05-09 20:35] VITALS: BP 99/61
[2017-05-09] MEDS ORDERED: FEE PK DOSING 1 MIN EA MC ONE (20:41)
[2017-05-09] MEDS: MEROPENEM 500 MG in IV NS 0.9% 50 ML IV SCH (21:00)
[2017-05-09] MEDS: VANCOMYCIN 1 GM in IV D5W 250ml IV SCH (21:00)
[2017-05-09] MEDS ORDERED: VANCOMYCIN 1 GM in IV D5W 250 ML IV ONE (21:00)
[2017-05-09] MEDS: SENNOSIDES 8.6 MG TABLET PO SCH (21:29)
[2017-05-09 21:36] LABS: CALCIUM, SERUM 8.5 mg/dL (8.5-10.1); CREATININE 1.7 mg/dL (0.6-1.3); POTASSIUM 4.2 mmol/L (3.5-5.1)
[2017-05-10] MEDS: RENAL NOVASOURCE 1,000 ML BOTTLE GT PRN (01:16)
[2017-05-10] MEDS: ALBUTEROL FS 2.5 MG/3 ML VIAL.NEB NEB SCH ×4 (02:09→19:39)
[2017-05-10] MEDS: IPRATROPIUM NEB FS 0.5 MG/2.5 ML AMPUL.NEB NEB SCH ×4 (02:09→19:39)
[2017-05-10] MEDS: BACLOFEN (10 MG) 10 MG TABLET GT SCH ×3 (05:52→20:48)
[2017-05-10] MEDS: LEVOTHYROXINE SODIUM 125 MCG TABLET GT SCH (05:52)
[2017-05-10] MEDS: GLYCOPYRROLATE 1 MG TABLET GT SCH ×3 (05:52→16:59)
[2017-05-10 07:25] LABS: BASOPHILS # (AUTO) 0.1 /CMM (0.0-0.2); BASOPHILS % (AUTO) 0.3 % (0.0-2.0); EOSINOPHILS # (AUTO) 0.4 /CMM (0.0-0.7); EOSINOPHILS % (AUTO) 1.6 % (0.0-6.0); HEMATOCRIT 31 % (39-51); HEMOGLOBIN 10.1 g/dL (13.5-17.5); LYMPHOCYTES # (AUTO) 2.6 /CMM (0.8-4.8); LYMPHOCYTES % (AUTO) 11.4 % (20.0-44.0); MEAN CORPUSCULAR HEMOGLOBIN 26 PG (26.0-33.0); MEAN CORPUSCULAR HGB CONC 33 g/dl (31.0-36.0); MEAN CORPUSCULAR VOLUME 81 fL (80-96); MONOCYTES # (AUTO) 0.7 /CMM (0.1-1.30); MONOCYTES % (AUTO) 3.2 % (2.0-12.0); NEUTROPHILS # (AUTO) 18.8 /CMM (1.8-8.9); NEUTROPHILS % (AUTO) 83.5 % (43.0-81.0); PLATELET COUNT (AUTO) 217 /CMM (150-450); RDW COEFFICIENT OF VARIATION 18.9 (11.5-15.0); RED BLOOD CELL COUNT(AUTO) 3.85 MIL/uL (4.5-6.0); WHITE BLOOD COUNT (AUTO) 22.5 K/uL (4.3-11.0)
[2017-05-10 07:39] LABS: CALCIUM, SERUM 9.3 mg/dL (8.5-10.1); CREATININE 1.7 mg/dL (0.6-1.3); POTASSIUM 4.6 mmol/L (3.5-5.1)
[2017-05-10 07:49] VITALS: BP 121/67
--- NOTE | 2017-05-10 09:15 | NUR ---
Relayed lab results to CARMELITA Ricks, WBC 22.5. CARMELITA Ricks said she already started pt on antibiotics and she will review CXR result. No new order.
[2017-05-10] MEDS: ASCORBIC ACID 500 MG TABLET GT SCH (09:57)
[2017-05-10] MEDS: ACIDOPHILUS/BULGARICUS 1 EACH TAB.CHEW GT SCH (09:57)
[2017-05-10] MEDS: HYDROGEN PEROXIDE 480 ML BOTTLE TP SCH ×2 (09:57→20:48)
[2017-05-10] MEDS: ZINC OXIDE 30 GM TUBE TP SCH ×2 (09:57→20:48)
[2017-05-10] MEDS: POLYETHYLENE GLYCOL 3350 17 GM POWD.PACK GT SCH (09:57)
[2017-05-10] MEDS: HEPARIN SODIUM, PORCINE 5000 UNITS/1 ML VIAL SQ SCH ×2 (09:57→20:48)
[2017-05-10] MEDS: AMIODARONE HCL 200 MG TABLET GT SCH (09:57)
[2017-05-10] MEDS: POTASSIUM CHLORIDE 20 MEQ/15 ML ML GT SCH (09:57)
[2017-05-10] MEDS: POLYVINYL ALCOHOL 15 ML BOTTLE EACHEYE SCH ×4 (09:57→20:48)
[2017-05-10] MEDS: PANTOPRAZOLE 40 MG/PACK PACK GT SCH (09:57)
[2017-05-10] MEDS: MEROPENEM 500 MG in IV NS 0.9% 50 ML IV SCH ×2 (09:59→21:26)
--- NOTE | 2017-05-10 13:51 | NUR ---
Relayed urine C/S result (05/05/17 specimen) to CARMELITA Ricks. Received order to add Tobramycin IV pharmacy to dose for 7 days. Notified .
[2017-05-10] MEDS ORDERED: D5W INH SCH (17:00)
[2017-05-10] MEDS ORDERED: TOBRAMYCIN INH SCH (17:00)
--- NOTE | 2017-05-10 17:41 | NUR ---
Dr. Reeder inserted midline catheter on right upper arm. Pt tolerated procedure well. Purplish discoloration noted along pt's surgical scar on the neck and had Dr. Reeder examine it. He said he does not think it is bruising or bleeding, he said it is a stain from the pt's surgery. No new order.
--- NOTE | 2017-05-10 18:09 | NUR ---
Verified with CARMELITA Ricks if pt needs to be on both Merrem and Tobramycin per pharmacist's inquiry. CARMELITA Ricks said to keep pt on all three IV antibiotics for now.
[2017-05-10 19:50] VITALS: BP 99/61
[2017-05-10] MEDS: TOBRAMYCIN INH SCH (19:59)
[2017-05-10] MEDS: D5W INH SCH (19:59)
[2017-05-10] MEDS: FINASTERIDE (5 MG) 5 MG TABLET GT SCH (20:47)
[2017-05-10] MEDS: MULTIVIT, IRON, MIN NO. 8, FA 1 TAB GT SCH (20:48)
[2017-05-10] MEDS: DOCUSATE SODIUM LIQ 100 MG/10 ML UDC GT SCH (20:48)
[2017-05-10] MEDS: SENNOSIDES 8.6 MG TABLET PO SCH (21:22)
[2017-05-10] MEDS: VANCOMYCIN 1 GM in IV D5W 250ml IV SCH (21:38)
[2017-05-11] MEDS: GLYCOPYRROLATE 1 MG TABLET GT SCH ×4 (00:12→18:00)
[2017-05-11] MEDS: ALBUTEROL FS 2.5 MG/3 ML VIAL.NEB NEB SCH ×4 (02:29→19:26)
[2017-05-11] MEDS: IPRATROPIUM NEB FS 0.5 MG/2.5 ML AMPUL.NEB NEB SCH ×4 (02:29→19:26)
[2017-05-11] MEDS: RENAL NOVASOURCE 1,000 ML BOTTLE GT PRN (05:09)
[2017-05-11] MEDS: LEVOTHYROXINE SODIUM 125 MCG TABLET GT SCH (05:09)
[2017-05-11] MEDS: BACLOFEN (10 MG) 10 MG TABLET GT SCH ×3 (05:09→21:06)
[2017-05-11 07:46] VITALS: BP 120/61
[2017-05-11] MEDS: MEROPENEM 500 MG in IV NS 0.9% 50 ML IV SCH ×2 (08:17→21:18)
[2017-05-11] MEDS: POLYVINYL ALCOHOL 15 ML BOTTLE EACHEYE SCH ×4 (09:10→21:06)
[2017-05-11] MEDS: AMIODARONE HCL 200 MG TABLET GT SCH (09:11)
[2017-05-11] MEDS: POTASSIUM CHLORIDE 20 MEQ/15 ML ML GT SCH (09:11)
[2017-05-11] MEDS: POLYETHYLENE GLYCOL 3350 17 GM POWD.PACK GT SCH (09:11)
[2017-05-11] MEDS: ACIDOPHILUS/BULGARICUS 1 EACH TAB.CHEW GT SCH (09:11)
[2017-05-11] MEDS: PANTOPRAZOLE 40 MG/PACK PACK GT SCH (09:12)
[2017-05-11] MEDS: ASCORBIC ACID 500 MG TABLET GT SCH (09:12)
[2017-05-11] MEDS: HEPARIN SODIUM, PORCINE 5000 UNITS/1 ML VIAL SQ SCH ×2 (09:13→21:07)
[2017-05-11] MEDS: ZINC OXIDE 30 GM TUBE TP SCH ×2 (09:13→21:07)
[2017-05-11] MEDS: HYDROGEN PEROXIDE 480 ML BOTTLE TP SCH ×2 (09:13→21:07)
--- NOTE | 2017-05-11 18:40 | NUR ---
Seen and examined by Jose Guadalupe Rodrigues NP, piped buttonhole machine operator for Dr. Paniagua Reviewed labs and culture result new order given to repeat CBC on Sunday. Millicent also aware of urine cx result no changes in current ATB therapy. Patient continue on IV Merrem, Tobramycin and Vancomycin no adverse reaction noted.
[2017-05-11 19:36] VITALS: BP 119/65
[2017-05-11] MEDS: FINASTERIDE (5 MG) 5 MG TABLET GT SCH (20:00)
[2017-05-11] MEDS: D5W INH SCH (20:20)
[2017-05-11] MEDS: TOBRAMYCIN INH SCH (20:20)
[2017-05-11] MEDS: DOCUSATE SODIUM LIQ 100 MG/10 ML UDC GT SCH (21:06)
[2017-05-11] MEDS: MULTIVIT, IRON, MIN NO. 8, FA 1 TAB GT SCH (21:06)
[2017-05-11] MEDS: SENNOSIDES 8.6 MG TABLET PO SCH (21:07)
[2017-05-11] MEDS: VANCOMYCIN 1 GM in IV D5W 250ml IV SCH (21:18)
[2017-05-12] MEDS: GLYCOPYRROLATE 1 MG TABLET GT SCH ×4 (00:21→17:59)
[2017-05-12] MEDS: IPRATROPIUM NEB FS 0.5 MG/2.5 ML AMPUL.NEB NEB SCH ×4 (01:32→20:05)
[2017-05-12] MEDS: ALBUTEROL FS 2.5 MG/3 ML VIAL.NEB NEB SCH ×4 (01:32→20:05)
[2017-05-12] MEDS: BACLOFEN (10 MG) 10 MG TABLET GT SCH ×3 (05:16→20:42)
[2017-05-12] MEDS: MAGNESIUM HYDROXIDE 30 ML UDC GT PRN (05:16)
[2017-05-12] MEDS: RENAL NOVASOURCE 1,000 ML BOTTLE GT PRN (05:16)
[2017-05-12] MEDS: LEVOTHYROXINE SODIUM 125 MCG TABLET GT SCH (05:16)
[2017-05-12 07:28] VITALS: BP 117/68
[2017-05-12] MEDS: MEROPENEM 500 MG in IV NS 0.9% 50 ML IV SCH ×2 (08:59→21:00)
[2017-05-12] MEDS: HYDROGEN PEROXIDE 480 ML BOTTLE TP SCH ×2 (09:54→20:43)
[2017-05-12] MEDS: POLYVINYL ALCOHOL 15 ML BOTTLE EACHEYE SCH ×4 (09:55→20:42)
[2017-05-12] MEDS: AMIODARONE HCL 200 MG TABLET GT SCH (09:56)
[2017-05-12] MEDS: POLYETHYLENE GLYCOL 3350 17 GM POWD.PACK GT SCH (09:57)
[2017-05-12] MEDS: ZINC OXIDE 30 GM TUBE TP SCH ×2 (09:57→20:43)
[2017-05-12] MEDS: ACIDOPHILUS/BULGARICUS 1 EACH TAB.CHEW GT SCH (09:57)
[2017-05-12] MEDS: POTASSIUM CHLORIDE 20 MEQ/15 ML ML GT SCH (09:57)
[2017-05-12] MEDS: PANTOPRAZOLE 40 MG/PACK PACK GT SCH (09:57)
[2017-05-12] MEDS: ASCORBIC ACID 500 MG TABLET GT SCH (09:57)
[2017-05-12] MEDS: HEPARIN SODIUM, PORCINE 5000 UNITS/1 ML VIAL SQ SCH ×2 (10:00→20:43)
--- NOTE | 2017-05-12 14:00 | NUR ---
Notified CARMELITA Ricks of final urine cx result with negative blood culture. Per Laurel Ricks NP will come tonight to review the ATB and determine stop date. Endorsed.
[2017-05-12 19:48] VITALS: BP 108/58
[2017-05-12] MEDS: FINASTERIDE (5 MG) 5 MG TABLET GT SCH (20:42)
[2017-05-12] MEDS: DOCUSATE SODIUM LIQ 100 MG/10 ML UDC GT SCH (20:42)
[2017-05-12] MEDS: MULTIVIT, IRON, MIN NO. 8, FA 1 TAB GT SCH (20:43)
[2017-05-12] MEDS: VANCOMYCIN 1 GM in IV D5W 250ml IV SCH (21:30)
[2017-05-12] MEDS: SENNOSIDES 8.6 MG TABLET PO SCH (21:30)
--- NOTE | 2017-05-12 23:03 | NUR ---
Faxed the Tobramycin (2.1H) result to [facility] IV Pharmacist and called [facility] to get an order. Spoke with Bruce(Pharmacist) and he gave order that is OK to give current dose of Tobramycin and pharmacy will call in AM to give new orders.
[2017-05-12] MEDS: D5W INH SCH (23:05)
[2017-05-12] MEDS: TOBRAMYCIN INH SCH (23:05)
[2017-05-13] MEDS: IPRATROPIUM NEB FS 0.5 MG/2.5 ML AMPUL.NEB NEB SCH ×4 (02:22→20:21)
[2017-05-13] MEDS: ALBUTEROL FS 2.5 MG/3 ML VIAL.NEB NEB SCH ×4 (02:22→20:21)
[2017-05-13] MEDS: BACLOFEN (10 MG) 10 MG TABLET GT SCH ×3 (05:41→20:13)
[2017-05-13] MEDS: LEVOTHYROXINE SODIUM 125 MCG TABLET GT SCH (05:41)
[2017-05-13] MEDS: RENAL NOVASOURCE 1,000 ML BOTTLE GT PRN (05:42)
[2017-05-13] MEDS: GLYCOPYRROLATE 1 MG TABLET GT SCH ×4 (06:39→17:02)
[2017-05-13 07:28] VITALS: BP 100/58
[2017-05-13] MEDS: MEROPENEM 500 MG in IV NS 0.9% 50 ML IV SCH ×2 (08:26→20:14)
[2017-05-13] MEDS: POLYVINYL ALCOHOL 15 ML BOTTLE EACHEYE SCH ×4 (09:31→20:11)
[2017-05-13] MEDS: AMIODARONE HCL 200 MG TABLET GT SCH (09:31)
[2017-05-13] MEDS: ACIDOPHILUS/BULGARICUS 1 EACH TAB.CHEW GT SCH (09:31)
[2017-05-13] MEDS: PANTOPRAZOLE 40 MG/PACK PACK GT SCH (09:31)
[2017-05-13] MEDS: POTASSIUM CHLORIDE 20 MEQ/15 ML ML GT SCH (09:31)
[2017-05-13] MEDS: ASCORBIC ACID 500 MG TABLET GT SCH (09:31)
[2017-05-13] MEDS: POLYETHYLENE GLYCOL 3350 17 GM POWD.PACK GT SCH (09:31)
[2017-05-13] MEDS: ZINC OXIDE 30 GM TUBE TP SCH ×2 (09:33→20:14)
[2017-05-13] MEDS: HEPARIN SODIUM, PORCINE 5000 UNITS/1 ML VIAL SQ SCH ×2 (09:33→20:16)
[2017-05-13] MEDS: HYDROGEN PEROXIDE 480 ML BOTTLE TP SCH ×2 (09:33→20:14)
--- NOTE | 2017-05-13 14:00 | NUR ---
got call from pharmacy spoke to mame got an order to hold tobramycin today and do random trough on 05/14/17 .noted and carried out.faxed to pharmacy.
[2017-05-13] MEDS: FINASTERIDE (5 MG) 5 MG TABLET GT SCH (20:10)
[2017-05-13] MEDS: DOCUSATE SODIUM LIQ 100 MG/10 ML UDC GT SCH (20:12)
[2017-05-13] MEDS: MULTIVIT, IRON, MIN NO. 8, FA 1 TAB GT SCH (20:13)
[2017-05-13 20:14] VITALS: BP 113/60
[2017-05-13] MEDS: VANCOMYCIN 1 GM in IV D5W 250ml IV SCH (20:14)
[2017-05-13] MEDS: SENNOSIDES 8.6 MG TABLET PO SCH (20:14)
[2017-05-14] MEDS: GLYCOPYRROLATE 1 MG TABLET GT SCH ×5 (00:51→23:19)
[2017-05-14] MEDS: ALBUTEROL FS 2.5 MG/3 ML VIAL.NEB NEB SCH ×4 (01:50→19:30)
[2017-05-14] MEDS: IPRATROPIUM NEB FS 0.5 MG/2.5 ML AMPUL.NEB NEB SCH ×4 (01:50→19:30)
[2017-05-14] MEDS: RENAL NOVASOURCE 1,000 ML BOTTLE GT PRN (04:10)
[2017-05-14] MEDS: BACLOFEN (10 MG) 10 MG TABLET GT SCH ×3 (05:53→20:12)
[2017-05-14] MEDS: LEVOTHYROXINE SODIUM 125 MCG TABLET GT SCH (05:53)
[2017-05-14 06:30] LABS: BASOPHILS % (AUTO) 0.2 % (0.0-2.0); EOSINOPHILS # (AUTO) 0.4 /CMM (0.0-0.7); EOSINOPHILS % (AUTO) 3.6 % (0.0-6.0); HEMATOCRIT 28 % (39-51); HEMOGLOBIN 9.3 g/dL (13.5-17.5); LYMPHOCYTES % (AUTO) 17.5 % (20.0-44.0); MEAN CORPUSCULAR HEMOGLOBIN 27 PG (26.0-33.0); MEAN CORPUSCULAR HGB CONC 33 g/dl (31.0-36.0); MEAN CORPUSCULAR VOLUME 81 fL (80-96); MONOCYTES # (AUTO) 1.1 /CMM (0.1-1.30); MONOCYTES % (AUTO) 9.4 % (2.0-12.0); NEUTROPHILS # (AUTO) 7.9 /CMM (1.8-8.9); NEUTROPHILS % (AUTO) 69.3 % (43.0-81.0); PLATELET COUNT (AUTO) 390 /CMM (150-450); RDW COEFFICIENT OF VARIATION 18.3 (11.5-15.0); RED BLOOD CELL COUNT(AUTO) 3.48 MIL/uL (4.5-6.0); WHITE BLOOD COUNT (AUTO) 11.4 K/uL (4.3-11.0)
[2017-05-14 06:48] LABS: CALCIUM, SERUM 8.6 mg/dL (8.5-10.1); CREATININE 1.5 mg/dL (0.6-1.3); POTASSIUM 4.4 mmol/L (3.5-5.1)
[2017-05-14 08:00] VITALS: BP 101/59
[2017-05-14] MEDS: MEROPENEM 500 MG in IV NS 0.9% 50 ML IV SCH ×2 (09:20→21:00)
[2017-05-14] MEDS: POLYVINYL ALCOHOL 15 ML BOTTLE EACHEYE SCH ×4 (09:25→20:12)
[2017-05-14] MEDS: AMIODARONE HCL 200 MG TABLET GT SCH (09:32)
[2017-05-14] MEDS: ACIDOPHILUS/BULGARICUS 1 EACH TAB.CHEW GT SCH (09:32)
[2017-05-14] MEDS: ASCORBIC ACID 500 MG TABLET GT SCH (09:33)
[2017-05-14] MEDS: POTASSIUM CHLORIDE 20 MEQ/15 ML ML GT SCH (09:33)
[2017-05-14] MEDS: PANTOPRAZOLE 40 MG/PACK PACK GT SCH (09:33)
[2017-05-14] MEDS: HEPARIN SODIUM, PORCINE 5000 UNITS/1 ML VIAL SQ SCH ×2 (09:44→20:12)
[2017-05-14] MEDS: ZINC OXIDE 30 GM TUBE TP SCH ×2 (09:45→20:13)
[2017-05-14] MEDS: HYDROGEN PEROXIDE 480 ML BOTTLE TP SCH ×2 (09:45→20:12)
[2017-05-14] MEDS: POLYETHYLENE GLYCOL 3350 17 GM POWD.PACK GT SCH (09:57)
--- NOTE | 2017-05-14 16:00 | NUR ---
Relayed Tobramycin trough 1.5 to IV pharmacist Pedro. Received order to continue same dose of Tobramycin until completion of therapy.
--- NOTE | 2017-05-14 16:53 | NUR ---
IV pharmacist Pedro called. She said she reviewed Tobramycin level again, and thinks that Tobramycin should be DC'd since the random level is high and so are the pt's BUN and Cr levels. Notified CARMELITA Ricks.
--- NOTE | 2017-05-14 17:14 | NUR ---
Received order from CARMELITA Ricks to [facility] Tobramycin per pharmacy recommendation.
--- NOTE | 2017-05-14 17:33 | NUR ---
CARMELITA Ricks said to give Vancomycin and Merrem for a total of 2 weeks.
[2017-05-14] MEDS: DOCUSATE SODIUM LIQ 100 MG/10 ML UDC GT SCH (20:12)
[2017-05-14] MEDS: FINASTERIDE (5 MG) 5 MG TABLET GT SCH (20:12)
[2017-05-14] MEDS: MULTIVIT, IRON, MIN NO. 8, FA 1 TAB GT SCH (20:12)
[2017-05-14 20:34] VITALS: BP 141/81
[2017-05-14] MEDS: VANCOMYCIN 1 GM in IV D5W 250ml IV SCH (21:00)
[2017-05-14] MEDS: SENNOSIDES 8.6 MG TABLET PO SCH (21:28)
[2017-05-15] MEDS: IPRATROPIUM NEB FS 0.5 MG/2.5 ML AMPUL.NEB NEB SCH ×4 (02:05→20:13)
[2017-05-15] MEDS: ALBUTEROL FS 2.5 MG/3 ML VIAL.NEB NEB SCH ×4 (02:05→20:13)
[2017-05-15] MEDS: GLYCOPYRROLATE 1 MG TABLET GT SCH ×4 (05:35→23:19)
[2017-05-15] MEDS: LEVOTHYROXINE SODIUM 125 MCG TABLET GT SCH (05:35)
[2017-05-15] MEDS: BACLOFEN (10 MG) 10 MG TABLET GT SCH ×3 (05:35→20:07)
[2017-05-15 08:00] VITALS: BP 113/73
[2017-05-15] MEDS: POLYVINYL ALCOHOL 15 ML BOTTLE EACHEYE SCH ×4 (09:37→20:07)
[2017-05-15] MEDS: ACIDOPHILUS/BULGARICUS 1 EACH TAB.CHEW GT SCH (09:38)
[2017-05-15] MEDS: AMIODARONE HCL 200 MG TABLET GT SCH (09:38)
[2017-05-15] MEDS: POLYETHYLENE GLYCOL 3350 17 GM POWD.PACK GT SCH (09:38)
[2017-05-15] MEDS: POTASSIUM CHLORIDE 20 MEQ/15 ML ML GT SCH (09:39)
[2017-05-15] MEDS: PANTOPRAZOLE 40 MG/PACK PACK GT SCH (09:39)
[2017-05-15] MEDS: ASCORBIC ACID 500 MG TABLET GT SCH (09:43)
[2017-05-15] MEDS: HEPARIN SODIUM, PORCINE 5000 UNITS/1 ML VIAL SQ SCH ×2 (09:44→20:07)
[2017-05-15] MEDS: ZINC OXIDE 30 GM TUBE TP SCH ×2 (09:44→20:07)
[2017-05-15] MEDS: MEROPENEM 500 MG in IV NS 0.9% 50 ML IV SCH ×2 (09:49→20:56)
[2017-05-15] MEDS: HYDROGEN PEROXIDE 480 ML BOTTLE TP SCH ×2 (10:40→20:07)
[2017-05-15] MEDS: RENAL NOVASOURCE 1,000 ML BOTTLE GT PRN (11:32)
[2017-05-15 19:50] VITALS: BP 116/70
[2017-05-15] MEDS: FINASTERIDE (5 MG) 5 MG TABLET GT SCH (20:07)
[2017-05-15] MEDS: MULTIVIT, IRON, MIN NO. 8, FA 1 TAB GT SCH (20:07)
[2017-05-15] MEDS: DOCUSATE SODIUM LIQ 100 MG/10 ML UDC GT SCH (20:07)
[2017-05-15] MEDS: VANCOMYCIN 1 GM in IV D5W 250ml IV SCH (20:56)
[2017-05-15] MEDS: SENNOSIDES 8.6 MG TABLET PO SCH (21:40)
[2017-05-16] MEDS: IPRATROPIUM NEB FS 0.5 MG/2.5 ML AMPUL.NEB NEB SCH ×4 (01:46→19:13)
[2017-05-16] MEDS: ALBUTEROL FS 2.5 MG/3 ML VIAL.NEB NEB SCH ×4 (01:46→19:13)
[2017-05-16] MEDS: BACLOFEN (10 MG) 10 MG TABLET GT SCH ×3 (05:43→20:07)
[2017-05-16] MEDS: LEVOTHYROXINE SODIUM 125 MCG TABLET GT SCH (05:43)
[2017-05-16] MEDS: GLYCOPYRROLATE 1 MG TABLET GT SCH ×4 (05:43→23:42)
[2017-05-16 08:02] VITALS: BP 107/69
[2017-05-16] MEDS: HEPARIN SODIUM, PORCINE 5000 UNITS/1 ML VIAL SQ SCH ×2 (09:00→20:09)
[2017-05-16] MEDS: ZINC OXIDE 30 GM TUBE TP SCH ×2 (09:00→20:09)
[2017-05-16] MEDS: ERGOCALCIFEROL (VITAMIN D2) 8,000 UNIT/ML GT SCH (09:00)
[2017-05-16] MEDS: HYDROGEN PEROXIDE 480 ML BOTTLE TP SCH ×2 (09:00→20:09)
[2017-05-16] MEDS: POLYVINYL ALCOHOL 15 ML BOTTLE EACHEYE SCH ×4 (09:33→20:07)
[2017-05-16] MEDS: AMIODARONE HCL 200 MG TABLET GT SCH (09:34)
[2017-05-16] MEDS: POLYETHYLENE GLYCOL 3350 17 GM POWD.PACK GT SCH (09:37)
[2017-05-16] MEDS: PANTOPRAZOLE 40 MG/PACK PACK GT SCH (09:37)
[2017-05-16] MEDS: ASCORBIC ACID 500 MG TABLET GT SCH (09:37)
[2017-05-16] MEDS: ACIDOPHILUS/BULGARICUS 1 EACH TAB.CHEW GT SCH (09:37)
[2017-05-16] MEDS: POTASSIUM CHLORIDE 20 MEQ/15 ML ML GT SCH (09:37)
[2017-05-16] MEDS: MEROPENEM 500 MG in IV NS 0.9% 50 ML IV SCH ×2 (10:00→21:00)
[2017-05-16] MEDS: RENAL NOVASOURCE 1,000 ML BOTTLE GT PRN (19:07)
[2017-05-16 20:06] VITALS: BP 107/68
[2017-05-16] MEDS: FINASTERIDE (5 MG) 5 MG TABLET GT SCH (20:07)
[2017-05-16] MEDS: MULTIVIT, IRON, MIN NO. 8, FA 1 TAB GT SCH (20:07)
[2017-05-16] MEDS: DOCUSATE SODIUM LIQ 100 MG/10 ML UDC GT SCH (20:07)
[2017-05-16] MEDS: VANCOMYCIN 1 GM in IV D5W 250ml IV SCH (21:00)
[2017-05-16] MEDS: SENNOSIDES 8.6 MG TABLET PO SCH (21:17)
[2017-05-17] MEDS: ALBUTEROL FS 2.5 MG/3 ML VIAL.NEB NEB SCH ×4 (01:25→19:47)
[2017-05-17] MEDS: IPRATROPIUM NEB FS 0.5 MG/2.5 ML AMPUL.NEB NEB SCH ×4 (01:25→19:46)
[2017-05-17] MEDS: BACLOFEN (10 MG) 10 MG TABLET GT SCH ×3 (05:26→21:42)
[2017-05-17] MEDS: LEVOTHYROXINE SODIUM 125 MCG TABLET GT SCH (05:26)
[2017-05-17] MEDS: GLYCOPYRROLATE 1 MG TABLET GT SCH ×3 (05:26→17:02)
[2017-05-17 07:33] VITALS: BP 120/64
[2017-05-17] MEDS: MEROPENEM 500 MG in IV NS 0.9% 50 ML IV SCH ×2 (09:04→21:32)
[2017-05-17] MEDS: POLYETHYLENE GLYCOL 3350 17 GM POWD.PACK GT SCH (09:08)
[2017-05-17] MEDS: POLYVINYL ALCOHOL 15 ML BOTTLE EACHEYE SCH ×4 (09:08→21:41)
[2017-05-17] MEDS: ACIDOPHILUS/BULGARICUS 1 EACH TAB.CHEW GT SCH (09:08)
[2017-05-17] MEDS: ASCORBIC ACID 500 MG TABLET GT SCH (09:08)
[2017-05-17] MEDS: POTASSIUM CHLORIDE 20 MEQ/15 ML ML GT SCH (09:08)
[2017-05-17] MEDS: PANTOPRAZOLE 40 MG/PACK PACK GT SCH (09:08)
[2017-05-17] MEDS: AMIODARONE HCL 200 MG TABLET GT SCH (09:08)
[2017-05-17] MEDS: HYDROGEN PEROXIDE 480 ML BOTTLE TP SCH ×2 (09:09→21:43)
[2017-05-17] MEDS: ZINC OXIDE 30 GM TUBE TP SCH ×2 (09:09→21:43)
[2017-05-17] MEDS: HEPARIN SODIUM, PORCINE 5000 UNITS/1 ML VIAL SQ SCH ×2 (09:09→21:43)
[2017-05-17 19:49] VITALS: BP 109/61
[2017-05-17] MEDS: FINASTERIDE (5 MG) 5 MG TABLET GT SCH (20:00)
[2017-05-17 20:33] LABS: CREATININE 1.7 mg/dL (0.6-1.3)
[2017-05-17] MEDS: MULTIVIT, IRON, MIN NO. 8, FA 1 TAB GT SCH (21:00)
[2017-05-17] MEDS: DOCUSATE SODIUM LIQ 100 MG/10 ML UDC GT SCH (21:41)
[2017-05-17] MEDS: SENNOSIDES 8.6 MG TABLET PO SCH (21:43)
[2017-05-17] MEDS: VANCOMYCIN 1 GM in IV D5W 250ml IV SCH (22:00)
[2017-05-18] MEDS: GLYCOPYRROLATE 1 MG TABLET GT SCH ×5 (00:46→23:31)
[2017-05-18] MEDS: IPRATROPIUM NEB FS 0.5 MG/2.5 ML AMPUL.NEB NEB SCH ×4 (01:07→19:25)
[2017-05-18] MEDS: ALBUTEROL FS 2.5 MG/3 ML VIAL.NEB NEB SCH ×4 (01:07→19:25)
[2017-05-18] MEDS: BACLOFEN (10 MG) 10 MG TABLET GT SCH ×3 (05:00→21:52)
[2017-05-18] MEDS: RENAL NOVASOURCE 1,000 ML BOTTLE GT PRN (05:19)
[2017-05-18] MEDS: LEVOTHYROXINE SODIUM 125 MCG TABLET GT SCH (06:02)
[2017-05-18] MEDS: BISACODYL SUPP (10 MG) 10 MG/SUPP.RECT SUPP.RECT RC PRN (07:02)
[2017-05-18 07:50] VITALS: BP 84/48
[2017-05-18] MEDS: NYSTATIN TOP POWDER 15 GM BOTTLE TP SCH ×4 (09:00→21:53)
[2017-05-18] MEDS: POLYVINYL ALCOHOL 15 ML BOTTLE EACHEYE SCH ×4 (09:21→21:52)
--- NOTE | 2017-05-18 09:30 | NUR ---
Obtain an order from Dr. David for midline insertion. Nursing food service kitchen supervisor notified she stated to call her back at 1900, because Dr. Baljinder Reeder might insert the midline.
[2017-05-18] MEDS: ASCORBIC ACID 500 MG TABLET GT SCH (09:42)
[2017-05-18] MEDS: ACIDOPHILUS/BULGARICUS 1 EACH TAB.CHEW GT SCH (09:42)
[2017-05-18] MEDS: POTASSIUM CHLORIDE 20 MEQ/15 ML ML GT SCH (09:42)
[2017-05-18] MEDS: HYDROGEN PEROXIDE 480 ML BOTTLE TP SCH ×2 (09:42→21:52)
[2017-05-18] MEDS: POLYETHYLENE GLYCOL 3350 17 GM POWD.PACK GT SCH (09:42)
[2017-05-18] MEDS: ZINC OXIDE 30 GM TUBE TP SCH ×2 (09:42→21:53)
[2017-05-18] MEDS: PANTOPRAZOLE 40 MG/PACK PACK GT SCH (09:42)
[2017-05-18] MEDS: AMIODARONE HCL 200 MG TABLET GT SCH (09:42)
[2017-05-18] MEDS: HEPARIN SODIUM, PORCINE 5000 UNITS/1 ML VIAL SQ SCH ×2 (09:43→21:52)
[2017-05-18] MEDS: MEROPENEM 500 MG in IV NS 0.9% 50 ML IV SCH ×2 (09:50→21:08)
--- NOTE | 2017-05-18 12:30 | NUR ---
Mrs. Bradley visited, and verbalized that she will be [place] of the country starting this Sunday. She stated she left information to [facility] regarding names of patient's siblings for staff to call for MAIDA notification.
[2017-05-18 19:55] VITALS: BP 109/64
[2017-05-18] MEDS: FINASTERIDE (5 MG) 5 MG TABLET GT SCH (20:00)
[2017-05-18] MEDS: DOCUSATE SODIUM LIQ 100 MG/10 ML UDC GT SCH (21:52)
[2017-05-18] MEDS: MULTIVIT, IRON, MIN NO. 8, FA 1 TAB GT SCH (21:52)
[2017-05-18] MEDS: SENNOSIDES 8.6 MG TABLET PO SCH (21:53)
[2017-05-19] MEDS: ALBUTEROL FS 2.5 MG/3 ML VIAL.NEB NEB SCH ×4 (02:05→20:07)
[2017-05-19] MEDS: IPRATROPIUM NEB FS 0.5 MG/2.5 ML AMPUL.NEB NEB SCH ×4 (02:05→20:07)
[2017-05-19] MEDS: BACLOFEN (10 MG) 10 MG TABLET GT SCH ×3 (05:58→21:00)
[2017-05-19] MEDS: RENAL NOVASOURCE 1,000 ML BOTTLE GT PRN (05:58)
[2017-05-19] MEDS: LEVOTHYROXINE SODIUM 125 MCG TABLET GT SCH (05:58)
[2017-05-19] MEDS: GLYCOPYRROLATE 1 MG TABLET GT SCH ×3 (05:58→17:30)
[2017-05-19 07:33] VITALS: BP 124/69
[2017-05-19] MEDS: ACIDOPHILUS/BULGARICUS 1 EACH TAB.CHEW GT SCH (09:06)
[2017-05-19] MEDS: AMIODARONE HCL 200 MG TABLET GT SCH (09:06)
[2017-05-19] MEDS: PANTOPRAZOLE 40 MG/PACK PACK GT SCH (09:06)
[2017-05-19] MEDS: POTASSIUM CHLORIDE 20 MEQ/15 ML ML GT SCH (09:06)
[2017-05-19] MEDS: POLYVINYL ALCOHOL 15 ML BOTTLE EACHEYE SCH ×4 (09:06→21:00)
[2017-05-19] MEDS: MEROPENEM 500 MG in IV NS 0.9% 50 ML IV SCH ×2 (09:06→21:00)
[2017-05-19] MEDS: POLYETHYLENE GLYCOL 3350 17 GM POWD.PACK GT SCH (09:06)
[2017-05-19] MEDS: ASCORBIC ACID 500 MG TABLET GT SCH (09:06)
[2017-05-19] MEDS: HYDROGEN PEROXIDE 480 ML BOTTLE TP SCH ×2 (09:07→21:00)
[2017-05-19] MEDS: NYSTATIN TOP POWDER 15 GM BOTTLE TP SCH ×4 (09:07→21:00)
[2017-05-19] MEDS: HEPARIN SODIUM, PORCINE 5000 UNITS/1 ML VIAL SQ SCH ×2 (09:07→21:00)
[2017-05-19] MEDS: ZINC OXIDE 30 GM TUBE TP SCH ×2 (09:07→21:00)
[2017-05-19] MEDS: VANCOMYCIN 1 GM in IV D5W 250ml IV SCH (10:00)
[2017-05-19] MEDS: NEOMY SULF/BACITRAC ZN/POLY 15 GM TUBE TP SCH ×2 (11:30→21:00)
--- NOTE | 2017-05-19 17:57 | NUR ---
Midline inserted in the R upper arm by midline nurse, G #20 with good blood return, patient tolerated procedure well. Dressing applied.
[2017-05-19 19:42] VITALS: BP 113/62
[2017-05-19] MEDS: FINASTERIDE (5 MG) 5 MG TABLET GT SCH (20:00)
[2017-05-19] MEDS: DOCUSATE SODIUM LIQ 100 MG/10 ML UDC GT SCH (21:00)
[2017-05-19] MEDS: MULTIVIT, IRON, MIN NO. 8, FA 1 TAB GT SCH (21:00)
[2017-05-19] MEDS: SENNOSIDES 8.6 MG TABLET PO SCH (22:00)
[2017-05-20] MEDS: ALBUTEROL FS 2.5 MG/3 ML VIAL.NEB NEB SCH ×4 (01:30→19:15)
[2017-05-20] MEDS: IPRATROPIUM NEB FS 0.5 MG/2.5 ML AMPUL.NEB NEB SCH ×4 (01:30→19:15)
[2017-05-20] MEDS: BACLOFEN (10 MG) 10 MG TABLET GT SCH ×3 (05:00→21:00)
[2017-05-20] MEDS: GLYCOPYRROLATE 1 MG TABLET GT SCH ×4 (06:24→17:07)
[2017-05-20] MEDS: LEVOTHYROXINE SODIUM 125 MCG TABLET GT SCH (06:24)
[2017-05-20] MEDS: RENAL NOVASOURCE 1,000 ML BOTTLE GT PRN (06:37)
[2017-05-20 07:45] VITALS: BP 118/69
--- NOTE | 2017-05-20 09:00 | NUR ---
Seen and examined by Dr. David, NNO given.
[2017-05-20] MEDS: POLYVINYL ALCOHOL 15 ML BOTTLE EACHEYE SCH ×4 (09:39→21:00)
[2017-05-20] MEDS: POTASSIUM CHLORIDE 20 MEQ/15 ML ML GT SCH (09:40)
[2017-05-20] MEDS: ASCORBIC ACID 500 MG TABLET GT SCH (09:40)
[2017-05-20] MEDS: HEPARIN SODIUM, PORCINE 5000 UNITS/1 ML VIAL SQ SCH ×2 (09:40→21:00)
[2017-05-20] MEDS: AMIODARONE HCL 200 MG TABLET GT SCH (09:40)
[2017-05-20] MEDS: NYSTATIN TOP POWDER 15 GM BOTTLE TP SCH ×4 (09:40→21:00)
[2017-05-20] MEDS: PANTOPRAZOLE 40 MG/PACK PACK GT SCH (09:40)
[2017-05-20] MEDS: ACIDOPHILUS/BULGARICUS 1 EACH TAB.CHEW GT SCH (09:40)
[2017-05-20] MEDS: POLYETHYLENE GLYCOL 3350 17 GM POWD.PACK GT SCH (09:40)
[2017-05-20] MEDS: ZINC OXIDE 30 GM TUBE TP SCH ×2 (09:41→21:00)
[2017-05-20] MEDS: NEOMY SULF/BACITRAC ZN/POLY 15 GM TUBE TP SCH ×2 (09:41→21:00)
[2017-05-20] MEDS: HYDROGEN PEROXIDE 480 ML BOTTLE TP SCH ×2 (09:41→21:00)
[2017-05-20] MEDS: MEROPENEM 500 MG in IV NS 0.9% 50 ML IV SCH ×2 (09:45→21:00)
[2017-05-20 19:48] VITALS: BP 136/74
[2017-05-20] MEDS: FINASTERIDE (5 MG) 5 MG TABLET GT SCH (20:00)
[2017-05-20] MEDS: MULTIVIT, IRON, MIN NO. 8, FA 1 TAB GT SCH (21:00)
[2017-05-20] MEDS: DOCUSATE SODIUM LIQ 100 MG/10 ML UDC GT SCH (21:00)
[2017-05-20] MEDS: SENNOSIDES 8.6 MG TABLET PO SCH (22:00)
[2017-05-20] MEDS: VANCOMYCIN 1 GM in IV D5W 250ml IV SCH (22:00)
[2017-05-21] MEDS: IPRATROPIUM NEB FS 0.5 MG/2.5 ML AMPUL.NEB NEB SCH ×4 (01:07→20:09)
[2017-05-21] MEDS: ALBUTEROL FS 2.5 MG/3 ML VIAL.NEB NEB SCH ×4 (01:07→20:09)
[2017-05-21] MEDS: BACLOFEN (10 MG) 10 MG TABLET GT SCH ×3 (05:31→20:38)
[2017-05-21] MEDS: RENAL NOVASOURCE 1,000 ML BOTTLE GT PRN (05:31)
[2017-05-21] MEDS: GLYCOPYRROLATE 1 MG TABLET GT SCH ×5 (05:31→23:38)
[2017-05-21] MEDS: LEVOTHYROXINE SODIUM 125 MCG TABLET GT SCH (05:31)
[2017-05-21] MEDS: NEOMY SULF/BACITRAC ZN/POLY 15 GM TUBE TP SCH ×2 (09:00→20:40)
[2017-05-21] MEDS: HYDROGEN PEROXIDE 480 ML BOTTLE TP SCH ×2 (09:00→20:40)
[2017-05-21] MEDS: ZINC OXIDE 30 GM TUBE TP SCH ×2 (09:00→20:40)
[2017-05-21] MEDS: NYSTATIN TOP POWDER 15 GM BOTTLE TP SCH ×4 (09:00→20:40)
[2017-05-21] MEDS: POLYVINYL ALCOHOL 15 ML BOTTLE EACHEYE SCH ×4 (09:29→20:38)
[2017-05-21] MEDS: ASCORBIC ACID 500 MG TABLET GT SCH (09:30)
[2017-05-21] MEDS: AMIODARONE HCL 200 MG TABLET GT SCH (09:30)
[2017-05-21] MEDS: POLYETHYLENE GLYCOL 3350 17 GM POWD.PACK GT SCH (09:30)
[2017-05-21] MEDS: PANTOPRAZOLE 40 MG/PACK PACK GT SCH (09:30)
[2017-05-21] MEDS: ACIDOPHILUS/BULGARICUS 1 EACH TAB.CHEW GT SCH (09:30)
[2017-05-21] MEDS: POTASSIUM CHLORIDE 20 MEQ/15 ML ML GT SCH (09:30)
[2017-05-21] MEDS: HEPARIN SODIUM, PORCINE 5000 UNITS/1 ML VIAL SQ SCH ×2 (09:30→20:40)
[2017-05-21] MEDS: MEROPENEM 500 MG in IV NS 0.9% 50 ML IV SCH ×2 (09:45→21:46)
[2017-05-21 19:52] VITALS: BP 139/83
[2017-05-21] MEDS: FINASTERIDE (5 MG) 5 MG TABLET GT SCH (20:00)
[2017-05-21] MEDS: DOCUSATE SODIUM LIQ 100 MG/10 ML UDC GT SCH (20:38)
[2017-05-21] MEDS: MULTIVIT, IRON, MIN NO. 8, FA 1 TAB GT SCH (20:39)
[2017-05-21] MEDS: SENNOSIDES 8.6 MG TABLET PO SCH (22:10)
[2017-05-22] MEDS: IPRATROPIUM NEB FS 0.5 MG/2.5 ML AMPUL.NEB NEB SCH ×4 (02:13→19:58)
[2017-05-22] MEDS: ALBUTEROL FS 2.5 MG/3 ML VIAL.NEB NEB SCH ×4 (02:13→19:58)
[2017-05-22] MEDS: GLYCOPYRROLATE 1 MG TABLET GT SCH ×3 (05:49→17:55)
[2017-05-22] MEDS: BACLOFEN (10 MG) 10 MG TABLET GT SCH ×3 (05:49→20:58)
[2017-05-22] MEDS: LEVOTHYROXINE SODIUM 125 MCG TABLET GT SCH (05:49)
[2017-05-22] MEDS: POLYVINYL ALCOHOL 15 ML BOTTLE EACHEYE SCH ×4 (08:51→20:54)
[2017-05-22] MEDS: ACIDOPHILUS/BULGARICUS 1 EACH TAB.CHEW GT SCH (08:52)
[2017-05-22] MEDS: AMIODARONE HCL 200 MG TABLET GT SCH (08:52)
[2017-05-22] MEDS: PANTOPRAZOLE 40 MG/PACK PACK GT SCH (08:53)
[2017-05-22] MEDS: POTASSIUM CHLORIDE 20 MEQ/15 ML ML GT SCH (08:53)
[2017-05-22] MEDS: POLYETHYLENE GLYCOL 3350 17 GM POWD.PACK GT SCH (08:53)
[2017-05-22] MEDS: ASCORBIC ACID 500 MG TABLET GT SCH (08:54)
[2017-05-22] MEDS: HEPARIN SODIUM, PORCINE 5000 UNITS/1 ML VIAL SQ SCH ×2 (08:54→21:08)
[2017-05-22] MEDS: ZINC OXIDE 30 GM TUBE TP SCH ×2 (09:05→20:59)
[2017-05-22] MEDS: NYSTATIN TOP POWDER 15 GM BOTTLE TP SCH ×4 (09:05→20:58)
[2017-05-22] MEDS: HYDROGEN PEROXIDE 480 ML BOTTLE TP SCH ×2 (09:05→20:58)
[2017-05-22] MEDS: NEOMY SULF/BACITRAC ZN/POLY 15 GM TUBE TP SCH ×2 (09:06→20:59)
[2017-05-22] MEDS: MEROPENEM 500 MG in IV NS 0.9% 50 ML IV SCH ×2 (09:38→21:18)
[2017-05-22] MEDS: VANCOMYCIN 1 GM in IV D5W 250ml IV SCH (10:00)
[2017-05-22] MEDS: RENAL NOVASOURCE 1,000 ML BOTTLE GT PRN (17:58)
--- NOTE | 2017-05-22 19:40 | NUR ---
RN OPENING NOTES received report from kathia rn. pt is asleep. no s/s of acute distress or sob noted. equal chest rise and fall. gt feeding novasource @40ml/hrx18h. gtube flushing well. safety measures in place. will continue to monitor pt throughout the night for safety.
[2017-05-22 20:00] VITALS: BP 119/65
[2017-05-22] MEDS: FINASTERIDE (5 MG) 5 MG TABLET GT SCH (20:54)
[2017-05-22] MEDS: MULTIVIT, IRON, MIN NO. 8, FA 1 TAB GT SCH (20:56)
[2017-05-22] MEDS: DOCUSATE SODIUM LIQ 100 MG/10 ML UDC GT SCH (20:57)
[2017-05-22] MEDS: SENNOSIDES 8.6 MG TABLET PO SCH (20:59)
[2017-05-22 21:00] VITALS: BP 119/65
[2017-05-23] MEDS: IPRATROPIUM NEB FS 0.5 MG/2.5 ML AMPUL.NEB NEB SCH ×4 (01:35→19:44)
[2017-05-23] MEDS: ALBUTEROL FS 2.5 MG/3 ML VIAL.NEB NEB SCH ×4 (01:35→19:44)
[2017-05-23] MEDS: BACLOFEN (10 MG) 10 MG TABLET GT SCH ×3 (04:37→21:15)
[2017-05-23] MEDS: GLYCOPYRROLATE 1 MG TABLET GT SCH ×4 (05:06→17:04)
[2017-05-23] MEDS: LEVOTHYROXINE SODIUM 125 MCG TABLET GT SCH (05:06)
[2017-05-23 08:04] VITALS: BP 116/78
[2017-05-23] MEDS: POLYVINYL ALCOHOL 15 ML BOTTLE EACHEYE SCH ×4 (09:08→21:15)
[2017-05-23] MEDS: POLYETHYLENE GLYCOL 3350 17 GM POWD.PACK GT SCH (09:12)
[2017-05-23] MEDS: ACIDOPHILUS/BULGARICUS 1 EACH TAB.CHEW GT SCH (09:12)
[2017-05-23] MEDS: ASCORBIC ACID 500 MG TABLET GT SCH (09:14)
[2017-05-23] MEDS: PANTOPRAZOLE 40 MG/PACK PACK GT SCH (09:14)
[2017-05-23] MEDS: POTASSIUM CHLORIDE 20 MEQ/15 ML ML GT SCH (09:14)
[2017-05-23] MEDS: HYDROGEN PEROXIDE 480 ML BOTTLE TP SCH ×2 (09:15→21:16)
[2017-05-23] MEDS: NYSTATIN TOP POWDER 15 GM BOTTLE TP SCH ×4 (09:15→21:16)
[2017-05-23] MEDS: NEOMY SULF/BACITRAC ZN/POLY 15 GM TUBE TP SCH ×2 (09:16→21:16)
[2017-05-23] MEDS: ZINC OXIDE 30 GM TUBE TP SCH ×2 (09:16→21:16)
[2017-05-23] MEDS: MEROPENEM 500 MG in IV NS 0.9% 50 ML IV SCH (09:17)
[2017-05-23] MEDS: HEPARIN SODIUM, PORCINE 5000 UNITS/1 ML VIAL SQ SCH ×2 (09:18→21:16)
[2017-05-23] MEDS: AMIODARONE HCL 200 MG TABLET GT SCH (09:20)
[2017-05-23 19:19] VITALS: BP 107/70
--- NOTE | 2017-05-23 19:30 | NUR ---
Pt seen by no new order at this time.
[2017-05-23] MEDS: FINASTERIDE (5 MG) 5 MG TABLET GT SCH (20:00)
[2017-05-23] MEDS: DOCUSATE SODIUM LIQ 100 MG/10 ML UDC GT SCH (21:15)
[2017-05-23] MEDS: MULTIVIT, IRON, MIN NO. 8, FA 1 TAB GT SCH (21:16)
[2017-05-23] MEDS: SENNOSIDES 8.6 MG TABLET PO SCH (21:16)
[2017-05-24] MEDS: GLYCOPYRROLATE 1 MG TABLET GT SCH ×5 (00:24→23:42)
[2017-05-24] MEDS: IPRATROPIUM NEB FS 0.5 MG/2.5 ML AMPUL.NEB NEB SCH ×4 (00:42→19:54)
[2017-05-24] MEDS: ALBUTEROL FS 2.5 MG/3 ML VIAL.NEB NEB SCH ×4 (00:42→19:54)
[2017-05-24] MEDS: BACLOFEN (10 MG) 10 MG TABLET GT SCH ×3 (05:32→20:51)
[2017-05-24] MEDS: RENAL NOVASOURCE 1,000 ML BOTTLE GT PRN (05:33)
[2017-05-24] MEDS: MAGNESIUM HYDROXIDE 30 ML UDC GT PRN (05:33)
[2017-05-24] MEDS: LEVOTHYROXINE SODIUM 125 MCG TABLET GT SCH (05:33)
[2017-05-24 07:40] VITALS: BP 121/57
[2017-05-24] MEDS: POLYETHYLENE GLYCOL 3350 17 GM POWD.PACK GT SCH (09:38)
[2017-05-24] MEDS: POTASSIUM CHLORIDE 20 MEQ/15 ML ML GT SCH (09:38)
[2017-05-24] MEDS: ACIDOPHILUS/BULGARICUS 1 EACH TAB.CHEW GT SCH (09:38)
[2017-05-24] MEDS: ASCORBIC ACID 500 MG TABLET GT SCH (09:38)
[2017-05-24] MEDS: PANTOPRAZOLE 40 MG/PACK PACK GT SCH (09:38)
[2017-05-24] MEDS: AMIODARONE HCL 200 MG TABLET GT SCH (09:38)
[2017-05-24] MEDS: HEPARIN SODIUM, PORCINE 5000 UNITS/1 ML VIAL SQ SCH ×2 (09:38→20:51)
[2017-05-24] MEDS: POLYVINYL ALCOHOL 15 ML BOTTLE EACHEYE SCH ×4 (09:38→20:49)
[2017-05-24] MEDS: NYSTATIN TOP POWDER 15 GM BOTTLE TP SCH ×4 (09:39→21:57)
[2017-05-24] MEDS: ZINC OXIDE 30 GM TUBE TP SCH ×2 (09:39→21:58)
[2017-05-24] MEDS: HYDROGEN PEROXIDE 480 ML BOTTLE TP SCH ×2 (09:39→21:57)
[2017-05-24] MEDS: NEOMY SULF/BACITRAC ZN/POLY 15 GM TUBE TP SCH ×2 (09:39→21:58)
[2017-05-24] MEDS: FINASTERIDE (5 MG) 5 MG TABLET GT SCH (20:49)
[2017-05-24] MEDS: DOCUSATE SODIUM LIQ 100 MG/10 ML UDC GT SCH (20:49)
[2017-05-24] MEDS: MULTIVIT, IRON, MIN NO. 8, FA 1 TAB GT SCH (20:51)
[2017-05-24] MEDS: SENNOSIDES 8.6 MG TABLET PO SCH (21:58)
[2017-05-25] MEDS: ALBUTEROL FS 2.5 MG/3 ML VIAL.NEB NEB SCH ×4 (01:03→19:40)
[2017-05-25] MEDS: IPRATROPIUM NEB FS 0.5 MG/2.5 ML AMPUL.NEB NEB SCH ×4 (01:03→19:40)
[2017-05-25] MEDS: GLYCOPYRROLATE 1 MG TABLET GT SCH ×3 (05:41→17:43)
[2017-05-25] MEDS: LEVOTHYROXINE SODIUM 125 MCG TABLET GT SCH (05:41)
[2017-05-25] MEDS: BACLOFEN (10 MG) 10 MG TABLET GT SCH ×3 (05:41→20:52)
[2017-05-25] MEDS: RENAL NOVASOURCE 1,000 ML BOTTLE GT PRN (05:42)
[2017-05-25 07:27] VITALS: BP 139/76
[2017-05-25] MEDS: NEOMY SULF/BACITRAC ZN/POLY 15 GM TUBE TP SCH ×2 (09:00→21:16)
[2017-05-25] MEDS: AMIODARONE HCL 200 MG TABLET GT SCH (09:41)
[2017-05-25] MEDS: POLYVINYL ALCOHOL 15 ML BOTTLE EACHEYE SCH ×4 (09:41→20:52)
[2017-05-25] MEDS: ACIDOPHILUS/BULGARICUS 1 EACH TAB.CHEW GT SCH (09:41)
[2017-05-25] MEDS: POTASSIUM CHLORIDE 20 MEQ/15 ML ML GT SCH (09:42)
[2017-05-25] MEDS: POLYETHYLENE GLYCOL 3350 17 GM POWD.PACK GT SCH (09:42)
[2017-05-25] MEDS: ASCORBIC ACID 500 MG TABLET GT SCH (09:43)
[2017-05-25] MEDS: PANTOPRAZOLE 40 MG/PACK PACK GT SCH (09:43)
[2017-05-25] MEDS: HYDROGEN PEROXIDE 480 ML BOTTLE TP SCH ×2 (09:46→21:15)
[2017-05-25] MEDS: ZINC OXIDE 30 GM TUBE TP SCH ×2 (09:46→21:16)
[2017-05-25] MEDS: NYSTATIN TOP POWDER 15 GM BOTTLE TP SCH ×4 (09:46→21:16)
[2017-05-25] MEDS: HEPARIN SODIUM, PORCINE 5000 UNITS/1 ML VIAL SQ SCH ×2 (09:46→20:53)
[2017-05-25 19:31] VITALS: BP 128/53
[2017-05-25] MEDS: MULTIVIT, IRON, MIN NO. 8, FA 1 TAB GT SCH (20:52)
[2017-05-25] MEDS: DOCUSATE SODIUM LIQ 100 MG/10 ML UDC GT SCH (20:52)
[2017-05-25] MEDS: FINASTERIDE (5 MG) 5 MG TABLET GT SCH (20:52)
[2017-05-25] MEDS: SENNOSIDES 8.6 MG TABLET PO SCH (21:16)
[2017-05-26] MEDS: GLYCOPYRROLATE 1 MG TABLET GT SCH ×4 (00:08→17:25)
[2017-05-26] MEDS: ALBUTEROL FS 2.5 MG/3 ML VIAL.NEB NEB SCH ×4 (01:18→19:50)
[2017-05-26] MEDS: IPRATROPIUM NEB FS 0.5 MG/2.5 ML AMPUL.NEB NEB SCH ×4 (01:18→19:50)
[2017-05-26] MEDS: RENAL NOVASOURCE 1,000 ML BOTTLE GT PRN (05:57)
[2017-05-26] MEDS: BACLOFEN (10 MG) 10 MG TABLET GT SCH ×3 (05:57→21:43)
[2017-05-26] MEDS: LEVOTHYROXINE SODIUM 125 MCG TABLET GT SCH (05:57)
[2017-05-26 07:31] VITALS: BP 110/69
[2017-05-26] MEDS: PANTOPRAZOLE 40 MG/PACK PACK GT SCH (08:16)
[2017-05-26] MEDS: POLYETHYLENE GLYCOL 3350 17 GM POWD.PACK GT SCH (08:16)
[2017-05-26] MEDS: AMIODARONE HCL 200 MG TABLET GT SCH (08:16)
[2017-05-26] MEDS: POTASSIUM CHLORIDE 20 MEQ/15 ML ML GT SCH (08:16)
[2017-05-26] MEDS: POLYVINYL ALCOHOL 15 ML BOTTLE EACHEYE SCH ×4 (08:16→21:43)
[2017-05-26] MEDS: ACIDOPHILUS/BULGARICUS 1 EACH TAB.CHEW GT SCH (08:16)
[2017-05-26] MEDS: ASCORBIC ACID 500 MG TABLET GT SCH (08:16)
[2017-05-26] MEDS: HEPARIN SODIUM, PORCINE 5000 UNITS/1 ML VIAL SQ SCH ×2 (08:17→21:45)
[2017-05-26] MEDS: NYSTATIN TOP POWDER 15 GM BOTTLE TP SCH ×4 (09:00→21:45)
[2017-05-26] MEDS: ZINC OXIDE 30 GM TUBE TP SCH ×2 (09:00→21:45)
[2017-05-26] MEDS: HYDROGEN PEROXIDE 480 ML BOTTLE TP SCH ×2 (09:00→21:45)
[2017-05-26 19:40] VITALS: BP 104/64
[2017-05-26] MEDS: FINASTERIDE (5 MG) 5 MG TABLET GT SCH (20:00)
[2017-05-26] MEDS: MULTIVIT, IRON, MIN NO. 8, FA 1 TAB GT SCH (21:43)
[2017-05-26] MEDS: DOCUSATE SODIUM LIQ 100 MG/10 ML UDC GT SCH (21:43)
[2017-05-26] MEDS: SENNOSIDES 8.6 MG TABLET PO SCH (21:45)
[2017-05-27] MEDS: ALBUTEROL FS 2.5 MG/3 ML VIAL.NEB NEB SCH ×4 (01:10→19:13)
[2017-05-27] MEDS: IPRATROPIUM NEB FS 0.5 MG/2.5 ML AMPUL.NEB NEB SCH ×4 (01:10→19:13)
[2017-05-27] MEDS: GLYCOPYRROLATE 1 MG TABLET GT SCH ×5 (05:38→23:44)
[2017-05-27] MEDS: LEVOTHYROXINE SODIUM 125 MCG TABLET GT SCH (05:38)
[2017-05-27] MEDS: BACLOFEN (10 MG) 10 MG TABLET GT SCH ×3 (05:38→20:55)
[2017-05-27] MEDS: RENAL NOVASOURCE 1,000 ML BOTTLE GT PRN (07:03)
[2017-05-27 07:46] VITALS: BP 128/59
[2017-05-27] MEDS: NYSTATIN TOP POWDER 15 GM BOTTLE TP SCH ×4 (09:00→20:58)
[2017-05-27] MEDS: HYDROGEN PEROXIDE 480 ML BOTTLE TP SCH ×2 (09:00→20:58)
[2017-05-27] MEDS: ZINC OXIDE 30 GM TUBE TP SCH ×2 (09:00→20:58)
[2017-05-27] MEDS: POLYVINYL ALCOHOL 15 ML BOTTLE EACHEYE SCH ×4 (09:44→20:54)
[2017-05-27] MEDS: POTASSIUM CHLORIDE 20 MEQ/15 ML ML GT SCH (09:45)
[2017-05-27] MEDS: POLYETHYLENE GLYCOL 3350 17 GM POWD.PACK GT SCH (09:45)
[2017-05-27] MEDS: AMIODARONE HCL 200 MG TABLET GT SCH (09:45)
[2017-05-27] MEDS: ACIDOPHILUS/BULGARICUS 1 EACH TAB.CHEW GT SCH (09:45)
[2017-05-27] MEDS: HEPARIN SODIUM, PORCINE 5000 UNITS/1 ML VIAL SQ SCH ×2 (09:46→20:58)
[2017-05-27] MEDS: PANTOPRAZOLE 40 MG/PACK PACK GT SCH (09:46)
[2017-05-27] MEDS: ASCORBIC ACID 500 MG TABLET GT SCH (09:46)
[2017-05-27 19:42] VITALS: BP_SYST 120; BP_SYST 130; BP_DIAS 58; BP_DIAS 62
[2017-05-27] MEDS: FINASTERIDE (5 MG) 5 MG TABLET GT SCH (20:54)
[2017-05-27] MEDS: DOCUSATE SODIUM LIQ 100 MG/10 ML UDC GT SCH (20:54)
[2017-05-27] MEDS: MULTIVIT, IRON, MIN NO. 8, FA 1 TAB GT SCH (20:55)
[2017-05-27] MEDS: SENNOSIDES 8.6 MG TABLET PO SCH (21:55)
[2017-05-28] MEDS: ALBUTEROL FS 2.5 MG/3 ML VIAL.NEB NEB SCH ×4 (01:40→19:15)
[2017-05-28] MEDS: IPRATROPIUM NEB FS 0.5 MG/2.5 ML AMPUL.NEB NEB SCH ×4 (01:40→19:15)
[2017-05-28] MEDS: BACLOFEN (10 MG) 10 MG TABLET GT SCH ×3 (04:41→20:59)
[2017-05-28] MEDS: LEVOTHYROXINE SODIUM 125 MCG TABLET GT SCH (05:39)
[2017-05-28] MEDS: GLYCOPYRROLATE 1 MG TABLET GT SCH ×4 (05:39→23:50)
[2017-05-28 07:38] VITALS: BP 109/65
[2017-05-28] MEDS: ZINC OXIDE 30 GM TUBE TP SCH ×2 (09:00→21:01)
[2017-05-28] MEDS: HYDROGEN PEROXIDE 480 ML BOTTLE TP SCH ×2 (09:00→21:01)
[2017-05-28] MEDS: POLYVINYL ALCOHOL 15 ML BOTTLE EACHEYE SCH ×4 (09:30→20:58)
[2017-05-28] MEDS: ACIDOPHILUS/BULGARICUS 1 EACH TAB.CHEW GT SCH (09:31)
[2017-05-28] MEDS: POTASSIUM CHLORIDE 20 MEQ/15 ML ML GT SCH (09:31)
[2017-05-28] MEDS: POLYETHYLENE GLYCOL 3350 17 GM POWD.PACK GT SCH (09:31)
[2017-05-28] MEDS: AMIODARONE HCL 200 MG TABLET GT SCH (09:31)
[2017-05-28] MEDS: PANTOPRAZOLE 40 MG/PACK PACK GT SCH (09:31)
[2017-05-28] MEDS: ASCORBIC ACID 500 MG TABLET GT SCH (09:31)
[2017-05-28] MEDS: HEPARIN SODIUM, PORCINE 5000 UNITS/1 ML VIAL SQ SCH ×2 (09:33→21:01)
[2017-05-28] MEDS: RENAL NOVASOURCE 1,000 ML BOTTLE GT PRN (15:25)
[2017-05-28 19:53] VITALS: BP 110/66
[2017-05-28] MEDS: DOCUSATE SODIUM LIQ 100 MG/10 ML UDC GT SCH (20:58)
[2017-05-28] MEDS: FINASTERIDE (5 MG) 5 MG TABLET GT SCH (20:58)
[2017-05-28] MEDS: MULTIVIT, IRON, MIN NO. 8, FA 1 TAB GT SCH (20:59)
[2017-05-28] MEDS: SENNOSIDES 8.6 MG TABLET PO SCH (21:01)
[2017-05-29] MEDS: ALBUTEROL FS 2.5 MG/3 ML VIAL.NEB NEB SCH ×4 (01:01→19:58)
[2017-05-29] MEDS: IPRATROPIUM NEB FS 0.5 MG/2.5 ML AMPUL.NEB NEB SCH ×4 (01:01→19:58)
[2017-05-29] MEDS: BACLOFEN (10 MG) 10 MG TABLET GT SCH ×3 (04:30→20:50)
[2017-05-29] MEDS: GLYCOPYRROLATE 1 MG TABLET GT SCH ×4 (05:23→23:45)
[2017-05-29] MEDS: LEVOTHYROXINE SODIUM 125 MCG TABLET GT SCH (05:23)
[2017-05-29 08:00] VITALS: BP 105/68
[2017-05-29] MEDS: HYDROGEN PEROXIDE 480 ML BOTTLE TP SCH ×2 (09:00→20:52)
[2017-05-29] MEDS: ZINC OXIDE 30 GM TUBE TP SCH ×2 (09:00→20:52)
[2017-05-29] MEDS: POLYVINYL ALCOHOL 15 ML BOTTLE EACHEYE SCH ×4 (09:14→20:50)
[2017-05-29] MEDS: POLYETHYLENE GLYCOL 3350 17 GM POWD.PACK GT SCH (09:15)
[2017-05-29] MEDS: ACIDOPHILUS/BULGARICUS 1 EACH TAB.CHEW GT SCH (09:15)
[2017-05-29] MEDS: PANTOPRAZOLE 40 MG/PACK PACK GT SCH (09:15)
[2017-05-29] MEDS: POTASSIUM CHLORIDE 20 MEQ/15 ML ML GT SCH (09:15)
[2017-05-29] MEDS: AMIODARONE HCL 200 MG TABLET GT SCH (09:15)
[2017-05-29] MEDS: ASCORBIC ACID 500 MG TABLET GT SCH (09:15)
[2017-05-29] MEDS: HEPARIN SODIUM, PORCINE 5000 UNITS/1 ML VIAL SQ SCH ×2 (09:16→20:52)
[2017-05-29 19:53] VITALS: BP 91/53
[2017-05-29] MEDS: MULTIVIT, IRON, MIN NO. 8, FA 1 TAB GT SCH (20:50)
[2017-05-29] MEDS: FINASTERIDE (5 MG) 5 MG TABLET GT SCH (20:50)
[2017-05-29] MEDS: DOCUSATE SODIUM LIQ 100 MG/10 ML UDC GT SCH (20:50)
[2017-05-29] MEDS: SENNOSIDES 8.6 MG TABLET PO SCH (21:39)
[2017-05-30] MEDS: RENAL NOVASOURCE 1,000 ML BOTTLE GT PRN (00:37)
[2017-05-30] MEDS: ALBUTEROL FS 2.5 MG/3 ML VIAL.NEB NEB SCH ×4 (01:50→19:46)
[2017-05-30] MEDS: IPRATROPIUM NEB FS 0.5 MG/2.5 ML AMPUL.NEB NEB SCH ×4 (01:50→19:46)
[2017-05-30] MEDS: BACLOFEN (10 MG) 10 MG TABLET GT SCH ×3 (04:24→21:25)
[2017-05-30] MEDS: GLYCOPYRROLATE 1 MG TABLET GT SCH ×4 (05:44→23:43)
[2017-05-30] MEDS: LEVOTHYROXINE SODIUM 125 MCG TABLET GT SCH (05:44)
[2017-05-30 07:44] VITALS: BP 124/81
[2017-05-30] MEDS: POLYVINYL ALCOHOL 15 ML BOTTLE EACHEYE SCH ×4 (08:37→21:25)
[2017-05-30] MEDS: AMIODARONE HCL 200 MG TABLET GT SCH (08:38)
[2017-05-30] MEDS: POTASSIUM CHLORIDE 20 MEQ/15 ML ML GT SCH (08:38)
[2017-05-30] MEDS: PANTOPRAZOLE 40 MG/PACK PACK GT SCH (08:38)
[2017-05-30] MEDS: ACIDOPHILUS/BULGARICUS 1 EACH TAB.CHEW GT SCH (08:38)
[2017-05-30] MEDS: ASCORBIC ACID 500 MG TABLET GT SCH (08:38)
[2017-05-30] MEDS: POLYETHYLENE GLYCOL 3350 17 GM POWD.PACK GT SCH (08:38)
[2017-05-30] MEDS: HYDROGEN PEROXIDE 480 ML BOTTLE TP SCH ×2 (08:39→21:26)
[2017-05-30] MEDS: HEPARIN SODIUM, PORCINE 5000 UNITS/1 ML VIAL SQ SCH ×2 (08:39→21:26)
[2017-05-30] MEDS: ZINC OXIDE 30 GM TUBE TP SCH ×2 (08:39→21:27)
[2017-05-30 20:00] VITALS: BP 100/64
[2017-05-30] MEDS: FINASTERIDE (5 MG) 5 MG TABLET GT SCH (20:00)
[2017-05-30] MEDS: DOCUSATE SODIUM LIQ 100 MG/10 ML UDC GT SCH (21:25)
[2017-05-30] MEDS: MULTIVIT, IRON, MIN NO. 8, FA 1 TAB GT SCH (21:25)
[2017-05-30] MEDS: SENNOSIDES 8.6 MG TABLET PO SCH (21:27)
[2017-05-31] MEDS: ALBUTEROL FS 2.5 MG/3 ML VIAL.NEB NEB SCH ×4 (01:07→20:15)
[2017-05-31] MEDS: IPRATROPIUM NEB FS 0.5 MG/2.5 ML AMPUL.NEB NEB SCH ×4 (01:07→20:15)
[2017-05-31] MEDS: LEVOTHYROXINE SODIUM 125 MCG TABLET GT SCH (05:42)
[2017-05-31] MEDS: GLYCOPYRROLATE 1 MG TABLET GT SCH ×3 (05:42→17:40)
[2017-05-31] MEDS: BACLOFEN (10 MG) 10 MG TABLET GT SCH ×3 (05:42→21:40)
[2017-05-31] MEDS: RENAL NOVASOURCE 1,000 ML BOTTLE GT PRN (06:30)
[2017-05-31] MEDS: AMIODARONE HCL 200 MG TABLET GT SCH (09:51)
[2017-05-31] MEDS: POTASSIUM CHLORIDE 20 MEQ/15 ML ML GT SCH (09:51)
[2017-05-31] MEDS: PANTOPRAZOLE 40 MG/PACK PACK GT SCH (09:51)
[2017-05-31] MEDS: ACIDOPHILUS/BULGARICUS 1 EACH TAB.CHEW GT SCH (09:51)
[2017-05-31] MEDS: ASCORBIC ACID 500 MG TABLET GT SCH (09:51)
[2017-05-31] MEDS: POLYETHYLENE GLYCOL 3350 17 GM POWD.PACK GT SCH (09:51)
[2017-05-31] MEDS: POLYVINYL ALCOHOL 15 ML BOTTLE EACHEYE SCH ×4 (09:51→21:40)
[2017-05-31] MEDS: HYDROGEN PEROXIDE 480 ML BOTTLE TP SCH ×2 (09:52→21:41)
[2017-05-31] MEDS: HEPARIN SODIUM, PORCINE 5000 UNITS/1 ML VIAL SQ SCH ×2 (09:52→21:41)
[2017-05-31] MEDS: ZINC OXIDE 30 GM TUBE TP SCH ×2 (09:52→21:41)
[2017-05-31] MEDS: FINASTERIDE (5 MG) 5 MG TABLET GT SCH (20:00)
[2017-05-31 20:03] VITALS: BP 103/58
[2017-05-31] MEDS: MULTIVIT, IRON, MIN NO. 8, FA 1 TAB GT SCH (21:40)
[2017-05-31] MEDS: DOCUSATE SODIUM LIQ 100 MG/10 ML UDC GT SCH (21:40)
[2017-05-31] MEDS: SENNOSIDES 8.6 MG TABLET PO SCH (21:41)
[2017-06-01] MEDS: GLYCOPYRROLATE 1 MG TABLET GT SCH ×5 (00:30→23:03)
[2017-06-01] MEDS: IPRATROPIUM NEB FS 0.5 MG/2.5 ML AMPUL.NEB NEB SCH ×4 (02:08→20:12)
[2017-06-01] MEDS: ALBUTEROL FS 2.5 MG/3 ML VIAL.NEB NEB SCH ×4 (02:08→20:12)
[2017-06-01] MEDS: BACLOFEN (10 MG) 10 MG TABLET GT SCH ×3 (05:00→21:49)
[2017-06-01] MEDS: LEVOTHYROXINE SODIUM 125 MCG TABLET GT SCH (06:06)
[2017-06-01 08:27] VITALS: BP 108/69
[2017-06-01] MEDS: POLYVINYL ALCOHOL 15 ML BOTTLE EACHEYE SCH ×4 (09:47→21:49)
[2017-06-01] MEDS: POTASSIUM CHLORIDE 20 MEQ/15 ML ML GT SCH (09:48)
[2017-06-01] MEDS: ACIDOPHILUS/BULGARICUS 1 EACH TAB.CHEW GT SCH (09:48)
[2017-06-01] MEDS: AMIODARONE HCL 200 MG TABLET GT SCH (09:48)
[2017-06-01] MEDS: POLYETHYLENE GLYCOL 3350 17 GM POWD.PACK GT SCH (09:48)
[2017-06-01] MEDS: ASCORBIC ACID 500 MG TABLET GT SCH (09:50)
[2017-06-01] MEDS: PANTOPRAZOLE 40 MG/PACK PACK GT SCH (09:50)
[2017-06-01] MEDS: HYDROGEN PEROXIDE 480 ML BOTTLE TP SCH ×2 (09:51→21:50)
[2017-06-01] MEDS: HEPARIN SODIUM, PORCINE 5000 UNITS/1 ML VIAL SQ SCH ×2 (09:51→21:50)
[2017-06-01] MEDS: ZINC OXIDE 30 GM TUBE TP SCH ×2 (09:51→21:50)
[2017-06-01] MEDS: RENAL NOVASOURCE 1,000 ML BOTTLE GT PRN (11:37)
--- NOTE | 2017-06-01 13:30 | NUR ---
IDT meeting held, reviewed medications, new orders, treatments and labs. Family unable to attend. Component Assembler Supervisor recommended to reweigh patient on Sunday due to 7 lbs. weight loss (Apr, 2017 152lbs - 2016 145lbs.) Endorsed.
--- NOTE | 2017-06-01 18:45 | NUR ---
Seen and examined by Vivian Posada NP, NNO given at this time.
[2017-06-01] MEDS: FINASTERIDE (5 MG) 5 MG TABLET GT SCH (20:00)
[2017-06-01] MEDS: MULTIVIT, IRON, MIN NO. 8, FA 1 TAB GT SCH (20:30)
[2017-06-01] MEDS: DOCUSATE SODIUM LIQ 100 MG/10 ML UDC GT SCH (21:49)
[2017-06-01] MEDS: SENNOSIDES 8.6 MG TABLET PO SCH (21:50)
[2017-06-02 00:02] VITALS: BP 93/59
[2017-06-02] MEDS: ALBUTEROL FS 2.5 MG/3 ML VIAL.NEB NEB SCH ×4 (01:03→20:33)
[2017-06-02] MEDS: IPRATROPIUM NEB FS 0.5 MG/2.5 ML AMPUL.NEB NEB SCH ×4 (01:03→20:33)
[2017-06-02] MEDS: BACLOFEN (10 MG) 10 MG TABLET GT SCH ×3 (05:01→21:27)
[2017-06-02] MEDS: GLYCOPYRROLATE 1 MG TABLET GT SCH ×4 (05:01→23:50)
[2017-06-02] MEDS: LEVOTHYROXINE SODIUM 125 MCG TABLET GT SCH (05:01)
[2017-06-02 07:49] VITALS: BP 98/61
[2017-06-02] MEDS: POLYVINYL ALCOHOL 15 ML BOTTLE EACHEYE SCH ×4 (09:48→21:27)
[2017-06-02] MEDS: ASCORBIC ACID 500 MG TABLET GT SCH (09:49)
[2017-06-02] MEDS: AMIODARONE HCL 200 MG TABLET GT SCH (09:49)
[2017-06-02] MEDS: POTASSIUM CHLORIDE 20 MEQ/15 ML ML GT SCH (09:49)
[2017-06-02] MEDS: PANTOPRAZOLE 40 MG/PACK PACK GT SCH (09:49)
[2017-06-02] MEDS: POLYETHYLENE GLYCOL 3350 17 GM POWD.PACK GT SCH (09:49)
[2017-06-02] MEDS: ACIDOPHILUS/BULGARICUS 1 EACH TAB.CHEW GT SCH (09:49)
[2017-06-02] MEDS: ZINC OXIDE 30 GM TUBE TP SCH ×2 (09:50→21:27)
[2017-06-02] MEDS: HYDROGEN PEROXIDE 480 ML BOTTLE TP SCH ×2 (09:50→21:27)
[2017-06-02] MEDS: HEPARIN SODIUM, PORCINE 5000 UNITS/1 ML VIAL SQ SCH ×2 (09:50→21:27)
[2017-06-02] MEDS: RENAL NOVASOURCE 1,000 ML BOTTLE GT PRN (11:24)
[2017-06-02 19:46] VITALS: BP 101/55
[2017-06-02] MEDS: FINASTERIDE (5 MG) 5 MG TABLET GT SCH (20:00)
[2017-06-02] MEDS: SENNOSIDES 8.6 MG TABLET PO SCH (21:27)
[2017-06-02] MEDS: DOCUSATE SODIUM LIQ 100 MG/10 ML UDC GT SCH (21:27)
[2017-06-02] MEDS: MULTIVIT, IRON, MIN NO. 8, FA 1 TAB GT SCH (21:27)
[2017-06-03] MEDS: IPRATROPIUM NEB FS 0.5 MG/2.5 ML AMPUL.NEB NEB SCH ×4 (02:25→19:56)
[2017-06-03] MEDS: ALBUTEROL FS 2.5 MG/3 ML VIAL.NEB NEB SCH ×4 (02:25→19:56)
[2017-06-03] MEDS: GLYCOPYRROLATE 1 MG TABLET GT SCH ×3 (05:34→18:16)
[2017-06-03] MEDS: LEVOTHYROXINE SODIUM 125 MCG TABLET GT SCH (05:34)
[2017-06-03] MEDS: BACLOFEN (10 MG) 10 MG TABLET GT SCH ×3 (05:34→20:43)
[2017-06-03] MEDS: POLYVINYL ALCOHOL 15 ML BOTTLE EACHEYE SCH ×4 (09:41→20:42)
[2017-06-03] MEDS: ASCORBIC ACID 500 MG TABLET GT SCH (09:42)
[2017-06-03] MEDS: PANTOPRAZOLE 40 MG/PACK PACK GT SCH (09:42)
[2017-06-03] MEDS: AMIODARONE HCL 200 MG TABLET GT SCH (09:42)
[2017-06-03] MEDS: ACIDOPHILUS/BULGARICUS 1 EACH TAB.CHEW GT SCH (09:42)
[2017-06-03] MEDS: POLYETHYLENE GLYCOL 3350 17 GM POWD.PACK GT SCH (09:42)
[2017-06-03] MEDS: POTASSIUM CHLORIDE 20 MEQ/15 ML ML GT SCH (09:42)
[2017-06-03] MEDS: ZINC OXIDE 30 GM TUBE TP SCH ×2 (09:43→20:45)
[2017-06-03] MEDS: HYDROGEN PEROXIDE 480 ML BOTTLE TP SCH ×2 (09:43→20:45)
[2017-06-03] MEDS: HEPARIN SODIUM, PORCINE 5000 UNITS/1 ML VIAL SQ SCH ×2 (09:43→20:45)
[2017-06-03 13:07] VITALS: BP 106/68
[2017-06-03] MEDS: RENAL NOVASOURCE 1,000 ML BOTTLE GT PRN (15:23)
[2017-06-03 19:55] VITALS: BP 118/67
[2017-06-03] MEDS: FINASTERIDE (5 MG) 5 MG TABLET GT SCH (20:42)
[2017-06-03] MEDS: DOCUSATE SODIUM LIQ 100 MG/10 ML UDC GT SCH (20:43)
[2017-06-03] MEDS: MULTIVIT, IRON, MIN NO. 8, FA 1 TAB GT SCH (20:43)
[2017-06-03] MEDS: SENNOSIDES 8.6 MG TABLET PO SCH (21:35)
[2017-06-04] MEDS: ALBUTEROL FS 2.5 MG/3 ML VIAL.NEB NEB SCH ×4 (01:23→19:58)
[2017-06-04] MEDS: IPRATROPIUM NEB FS 0.5 MG/2.5 ML AMPUL.NEB NEB SCH ×4 (01:23→19:58)
[2017-06-04] MEDS: BACLOFEN (10 MG) 10 MG TABLET GT SCH ×3 (05:39→20:40)
[2017-06-04] MEDS: GLYCOPYRROLATE 1 MG TABLET GT SCH ×5 (05:39→23:48)
[2017-06-04] MEDS: LEVOTHYROXINE SODIUM 125 MCG TABLET GT SCH (05:39)
[2017-06-04 07:57] VITALS: BP 115/60
[2017-06-04] MEDS: POLYVINYL ALCOHOL 15 ML BOTTLE EACHEYE SCH ×4 (09:20→20:39)
[2017-06-04] MEDS: ASCORBIC ACID 500 MG TABLET GT SCH (09:21)
[2017-06-04] MEDS: AMIODARONE HCL 200 MG TABLET GT SCH (09:21)
[2017-06-04] MEDS: ACIDOPHILUS/BULGARICUS 1 EACH TAB.CHEW GT SCH (09:21)
[2017-06-04] MEDS: POLYETHYLENE GLYCOL 3350 17 GM POWD.PACK GT SCH (09:21)
[2017-06-04] MEDS: POTASSIUM CHLORIDE 20 MEQ/15 ML ML GT SCH (09:21)
[2017-06-04] MEDS: PANTOPRAZOLE 40 MG/PACK PACK GT SCH ×2 (09:21→20:41)
[2017-06-04] MEDS: ZINC OXIDE 30 GM TUBE TP SCH ×2 (09:22→20:42)
[2017-06-04] MEDS: HEPARIN SODIUM, PORCINE 5000 UNITS/1 ML VIAL SQ SCH ×2 (09:22→20:42)
[2017-06-04] MEDS: HYDROGEN PEROXIDE 480 ML BOTTLE TP SCH ×2 (09:22→20:42)
[2017-06-04 19:58] VITALS: BP 109/61
[2017-06-04] MEDS: FINASTERIDE (5 MG) 5 MG TABLET GT SCH (20:39)
[2017-06-04] MEDS: DOCUSATE SODIUM LIQ 100 MG/10 ML UDC GT SCH (20:40)
[2017-06-04] MEDS: MULTIVIT, IRON, MIN NO. 8, FA 1 TAB GT SCH (20:41)
[2017-06-04] MEDS: SENNOSIDES 8.6 MG TABLET PO SCH (21:29)
[2017-06-05] MEDS: ALBUTEROL FS 2.5 MG/3 ML VIAL.NEB NEB SCH ×4 (01:08→19:31)
[2017-06-05] MEDS: IPRATROPIUM NEB FS 0.5 MG/2.5 ML AMPUL.NEB NEB SCH ×4 (01:08→19:30)
[2017-06-05] MEDS: BACLOFEN (10 MG) 10 MG TABLET GT SCH ×3 (05:35→21:09)
[2017-06-05] MEDS: GLYCOPYRROLATE 1 MG TABLET GT SCH ×3 (05:35→17:47)
[2017-06-05] MEDS: LEVOTHYROXINE SODIUM 125 MCG TABLET GT SCH (05:35)
[2017-06-05 07:51] VITALS: BP 101/66
[2017-06-05] MEDS: PANTOPRAZOLE 40 MG/PACK PACK GT SCH ×2 (09:06→21:09)
[2017-06-05] MEDS: POTASSIUM CHLORIDE 20 MEQ/15 ML ML GT SCH (09:06)
[2017-06-05] MEDS: ACIDOPHILUS/BULGARICUS 1 EACH TAB.CHEW GT SCH (09:06)
[2017-06-05] MEDS: AMIODARONE HCL 200 MG TABLET GT SCH (09:06)
[2017-06-05] MEDS: POLYETHYLENE GLYCOL 3350 17 GM POWD.PACK GT SCH (09:06)
[2017-06-05] MEDS: POLYVINYL ALCOHOL 15 ML BOTTLE EACHEYE SCH ×4 (09:06→21:08)
[2017-06-05] MEDS: ZINC OXIDE 30 GM TUBE TP SCH ×2 (09:07→21:12)
[2017-06-05] MEDS: HYDROGEN PEROXIDE 480 ML BOTTLE TP SCH ×2 (09:07→21:11)
[2017-06-05] MEDS: HEPARIN SODIUM, PORCINE 5000 UNITS/1 ML VIAL SQ SCH ×2 (09:07→21:11)
[2017-06-05] MEDS: CLOTRIMAZOLE 1% 15 GM TUBE TP SCH ×2 (09:07→21:12)
--- NOTE | 2017-06-05 17:10 | NUR ---
Pt's left knee is red, warm to touch and slightly swollen. Notified Dr. Paniagua. Received order to do left knee x-ray, CBC, BMP, ESR, and ortho consult with Dr. Regan. Notified pt's and she expressed appreciation.
[2017-06-05 17:41] LABS: BASOPHILS # (AUTO) 0.1 /CMM (0.0-0.2); BASOPHILS % (AUTO) 0.5 % (0.0-2.0); EOSINOPHILS # (AUTO) 0.2 /CMM (0.0-0.7); EOSINOPHILS % (AUTO) 1.4 % (0.0-6.0); HEMATOCRIT 35 % (39-51); HEMOGLOBIN 11.1 g/dL (13.5-17.5); LYMPHOCYTES # (AUTO) 2.2 /CMM (0.8-4.8); LYMPHOCYTES % (AUTO) 12.6 % (20.0-44.0); MEAN CORPUSCULAR HEMOGLOBIN 25 PG (26.0-33.0); MEAN CORPUSCULAR HGB CONC 32 g/dl (31.0-36.0); MEAN CORPUSCULAR VOLUME 78 fL (80-96); MONOCYTES # (AUTO) 1.7 /CMM (0.1-1.30); MONOCYTES % (AUTO) 9.8 % (2.0-12.0); NEUTROPHILS % (AUTO) 75.7 % (43.0-81.0); PLATELET COUNT (AUTO) 333 /CMM (150-450); RDW COEFFICIENT OF VARIATION 17.9 (11.5-15.0); RED BLOOD CELL COUNT(AUTO) 4.53 MIL/uL (4.5-6.0); WHITE BLOOD COUNT (AUTO) 17.2 K/uL (4.3-11.0)
[2017-06-05 18:02] LABS: CALCIUM, SERUM 9.1 mg/dL (8.5-10.1); CREATININE 1.7 mg/dL (0.6-1.3); POTASSIUM 4.5 mmol/L (3.5-5.1)
--- NOTE | 2017-06-05 18:20 | NUR ---
Relayed lab results to Dr. Paniagua. Received order to give Vancomycin 1 gm IV now then pharmacy to dose and Zosyn 4.5 gm IV q [address] Paniagua for duration of IV antibiotics. He said he will see the pt tomorrow and decide. Notified pt's .
[2017-06-05] MEDS ORDERED: VANCOMYCIN 1 GM in IV D5W 250ml IV ONE (19:00)
[2017-06-05 19:53] VITALS: BP 110/58
[2017-06-05] MEDS: FINASTERIDE (5 MG) 5 MG TABLET GT SCH (20:00)
--- NOTE | 2017-06-05 20:00 | NUR ---
RN NOTES Received new order from Dr. Paniagua for Vancomycin 750mg IV q24hr to start tomorrow, noted and carried out. at bedside and aware.
--- NOTE | 2017-06-05 20:30 | NUR ---
RN NOTES Received new order from Dr. James on-call MD to D/C zosyn 4.5gm iv q8hr, start Merrem 500mg IV q12hr, noted and carried out. at bedside and made aware.
[2017-06-05] MEDS ORDERED: PIPERACILLIN /TAZOBACTAM 4.5 G in IV D5W 50 ML IV SCH (21:00)
[2017-06-05] MEDS: DOCUSATE SODIUM LIQ 100 MG/10 ML UDC GT SCH (21:09)
[2017-06-05] MEDS: MULTIVIT, IRON, MIN NO. 8, FA 1 TAB GT SCH (21:10)
[2017-06-05] MEDS: ASCORBIC ACID 500 MG TABLET GT SCH (21:11)
[2017-06-05] MEDS: SENNOSIDES 8.6 MG TABLET PO SCH (22:08)
[2017-06-06] MEDS: GLYCOPYRROLATE 1 MG TABLET GT SCH ×4 (00:12→18:50)
[2017-06-06] MEDS: IPRATROPIUM NEB FS 0.5 MG/2.5 ML AMPUL.NEB NEB SCH ×4 (01:20→19:52)
[2017-06-06] MEDS: ALBUTEROL FS 2.5 MG/3 ML VIAL.NEB NEB SCH ×4 (01:20→19:52)
[2017-06-06] MEDS: RENAL NOVASOURCE 1,000 ML BOTTLE GT PRN (04:56)
[2017-06-06] MEDS: LEVOTHYROXINE SODIUM 125 MCG TABLET GT SCH (05:45)
[2017-06-06] MEDS: BACLOFEN (10 MG) 10 MG TABLET GT SCH ×3 (05:45→21:21)
[2017-06-06 07:49] VITALS: BP 127/81
[2017-06-06] MEDS: MEROPENEM 500 MG in IV NS 0.9% 50 ML IV SCH ×2 (08:27→21:12)
[2017-06-06] MEDS ORDERED: VANCOMYCIN HCL 0.75 GM in IV D5W 250 ML IV SCH (09:00)
[2017-06-06] MEDS: POLYVINYL ALCOHOL 15 ML BOTTLE EACHEYE SCH ×4 (09:38→21:21)
[2017-06-06] MEDS: HEPARIN SODIUM, PORCINE 5000 UNITS/1 ML VIAL SQ SCH ×2 (09:39→21:21)
[2017-06-06] MEDS: PANTOPRAZOLE 40 MG/PACK PACK GT SCH ×2 (09:39→21:21)
[2017-06-06] MEDS: HYDROGEN PEROXIDE 480 ML BOTTLE TP SCH ×2 (09:39→21:22)
[2017-06-06] MEDS: POTASSIUM CHLORIDE 20 MEQ/15 ML ML GT SCH (09:39)
[2017-06-06] MEDS: POLYETHYLENE GLYCOL 3350 17 GM POWD.PACK GT SCH (09:39)
[2017-06-06] MEDS: ACIDOPHILUS/BULGARICUS 1 EACH TAB.CHEW GT SCH (09:39)
[2017-06-06] MEDS: AMIODARONE HCL 200 MG TABLET GT SCH (09:39)
[2017-06-06] MEDS: CLOTRIMAZOLE 1% 15 GM TUBE TP SCH ×2 (09:40→21:22)
[2017-06-06] MEDS: ZINC OXIDE 30 GM TUBE TP SCH ×2 (09:40→21:22)
[2017-06-06 19:59] VITALS: BP 96/46
[2017-06-06] MEDS: FINASTERIDE (5 MG) 5 MG TABLET GT SCH (20:00)
[2017-06-06] MEDS: VANCOMYCIN HCL 0.75 GM in IV D5W 250 ML IV SCH (20:10)
[2017-06-06] MEDS: DOCUSATE SODIUM LIQ 100 MG/10 ML UDC GT SCH (21:21)
[2017-06-06] MEDS: MULTIVIT, IRON, MIN NO. 8, FA 1 TAB GT SCH (21:21)
[2017-06-06] MEDS: ASCORBIC ACID 500 MG TABLET GT SCH (21:21)
[2017-06-06] MEDS: SENNOSIDES 8.6 MG TABLET PO SCH (21:22)
[2017-06-07] MEDS: GLYCOPYRROLATE 1 MG TABLET GT SCH ×5 (00:35→23:36)
[2017-06-07] MEDS: IPRATROPIUM NEB FS 0.5 MG/2.5 ML AMPUL.NEB NEB SCH ×4 (01:30→20:00)
[2017-06-07] MEDS: ALBUTEROL FS 2.5 MG/3 ML VIAL.NEB NEB SCH ×4 (01:30→20:00)
[2017-06-07] MEDS: BACLOFEN (10 MG) 10 MG TABLET GT SCH ×3 (05:42→21:51)
[2017-06-07] MEDS: LEVOTHYROXINE SODIUM 125 MCG TABLET GT SCH (05:42)
[2017-06-07] MEDS: RENAL NOVASOURCE 1,000 ML BOTTLE GT PRN (06:55)
[2017-06-07 07:40] VITALS: BP 123/73
[2017-06-07] MEDS: ZINC OXIDE 30 GM TUBE TP SCH ×2 (09:00→21:52)
[2017-06-07] MEDS: POLYVINYL ALCOHOL 15 ML BOTTLE EACHEYE SCH ×4 (09:00→21:51)
[2017-06-07] MEDS: ACIDOPHILUS/BULGARICUS 1 EACH TAB.CHEW GT SCH (09:00)
[2017-06-07] MEDS: PANTOPRAZOLE 40 MG/PACK PACK GT SCH ×2 (09:00→21:51)
[2017-06-07] MEDS: POTASSIUM CHLORIDE 20 MEQ/15 ML ML GT SCH (09:00)
[2017-06-07] MEDS: HYDROGEN PEROXIDE 480 ML BOTTLE TP SCH ×2 (09:00→21:52)
[2017-06-07] MEDS: POLYETHYLENE GLYCOL 3350 17 GM POWD.PACK GT SCH (09:00)
[2017-06-07] MEDS: HEPARIN SODIUM, PORCINE 5000 UNITS/1 ML VIAL SQ SCH ×2 (09:00→21:52)
[2017-06-07] MEDS: AMIODARONE HCL 200 MG TABLET GT SCH (09:00)
[2017-06-07] MEDS: CLOTRIMAZOLE 1% 15 GM TUBE TP SCH ×2 (09:00→21:52)
[2017-06-07] MEDS: MEROPENEM 500 MG in IV NS 0.9% 50 ML IV SCH ×2 (09:52→21:38)
--- NOTE | 2017-06-07 11:08 | NUR ---
Seen and examined by Dr. Paniagua. Relayed left knee x-ray result to him. Received order to give Merrem and Vancomycin for a total of 7 days. Notified pt's .
[2017-06-07 20:02] LABS: CREATININE 1.6 mg/dL (0.6-1.3)
[2017-06-07 20:07] VITALS: BP 100/61
[2017-06-07] MEDS: VANCOMYCIN HCL 0.75 GM in IV D5W 250 ML IV SCH (20:16)
[2017-06-07] MEDS: FINASTERIDE (5 MG) 5 MG TABLET GT SCH (20:30)
[2017-06-07] MEDS: DOCUSATE SODIUM LIQ 100 MG/10 ML UDC GT SCH (21:51)
[2017-06-07] MEDS: MULTIVIT, IRON, MIN NO. 8, FA 1 TAB GT SCH (21:51)
[2017-06-07] MEDS: ASCORBIC ACID 500 MG TABLET GT SCH (21:52)
[2017-06-07] MEDS: SENNOSIDES 8.6 MG TABLET PO SCH (21:52)
--- NOTE | 2017-06-07 22:09 | NUR ---
Vancomycin trough 12,per [facility] pharmacist to more trough needed until dose completed on 06/11/17.Carried out
[2017-06-08] MEDS: ALBUTEROL FS 2.5 MG/3 ML VIAL.NEB NEB SCH ×4 (00:54→19:47)
[2017-06-08] MEDS: IPRATROPIUM NEB FS 0.5 MG/2.5 ML AMPUL.NEB NEB SCH ×4 (00:54→19:47)
[2017-06-08] MEDS: GLYCOPYRROLATE 1 MG TABLET GT SCH ×4 (05:40→23:41)
[2017-06-08] MEDS: LEVOTHYROXINE SODIUM 125 MCG TABLET GT SCH (05:40)
[2017-06-08] MEDS: BACLOFEN (10 MG) 10 MG TABLET GT SCH ×3 (05:40→21:49)
[2017-06-08] MEDS: RENAL NOVASOURCE 1,000 ML BOTTLE GT PRN (05:48)
[2017-06-08 07:40] VITALS: BP 113/73
[2017-06-08] MEDS: HYDROGEN PEROXIDE 480 ML BOTTLE TP SCH ×2 (09:00→21:50)
[2017-06-08] MEDS: ACIDOPHILUS/BULGARICUS 1 EACH TAB.CHEW GT SCH (09:00)
[2017-06-08] MEDS: HEPARIN SODIUM, PORCINE 5000 UNITS/1 ML VIAL SQ SCH ×2 (09:00→21:50)
[2017-06-08] MEDS: ZINC OXIDE 30 GM TUBE TP SCH ×2 (09:00→21:50)
[2017-06-08] MEDS: CLOTRIMAZOLE 1% 15 GM TUBE TP SCH ×2 (09:00→21:50)
[2017-06-08] MEDS: AMIODARONE HCL 200 MG TABLET GT SCH (09:00)
[2017-06-08] MEDS: POLYETHYLENE GLYCOL 3350 17 GM POWD.PACK GT SCH (09:00)
[2017-06-08] MEDS: POLYVINYL ALCOHOL 15 ML BOTTLE EACHEYE SCH ×4 (09:00→21:49)
[2017-06-08] MEDS: POTASSIUM CHLORIDE 20 MEQ/15 ML ML GT SCH (09:00)
[2017-06-08] MEDS: PANTOPRAZOLE 40 MG/PACK PACK GT SCH ×2 (09:00→21:49)
[2017-06-08] MEDS: MEROPENEM 500 MG in IV NS 0.9% 50 ML IV SCH ×2 (09:06→21:00)
--- NOTE | 2017-06-08 10:40 | NUR ---
Received call from resident's . She stated she received a bill from the hospital for $9,630.00. SW spoke to Gus and she indicated that this amount is for the resident's share of cost for the months of February,March, April, May, June and July 2016. SOC for each of those months was $1605.00. She stated that she has never received a bill for all of the time resident has been here. Per Gus, should call the [facility] rn social services if she has any questions about her share of cost or why she was charged for those month's only. Also gave number for Kenyetta in the Business office @ [phone], per Gus's request. Resident's stated she will follow up.
[2017-06-08 20:02] VITALS: BP 102/69
[2017-06-08] MEDS: VANCOMYCIN HCL 0.75 GM in IV D5W 250 ML IV SCH (20:06)
[2017-06-08] MEDS: FINASTERIDE (5 MG) 5 MG TABLET GT SCH (20:30)
[2017-06-08] MEDS: ASCORBIC ACID 500 MG TABLET GT SCH (21:49)
[2017-06-08] MEDS: MULTIVIT, IRON, MIN NO. 8, FA 1 TAB GT SCH (21:49)
[2017-06-08] MEDS: DOCUSATE SODIUM LIQ 100 MG/10 ML UDC GT SCH (21:49)
[2017-06-08] MEDS: SENNOSIDES 8.6 MG TABLET PO SCH (21:50)
[2017-06-09] MEDS: IPRATROPIUM NEB FS 0.5 MG/2.5 ML AMPUL.NEB NEB SCH ×4 (00:47→19:40)
[2017-06-09] MEDS: ALBUTEROL FS 2.5 MG/3 ML VIAL.NEB NEB SCH ×4 (00:47→19:40)
[2017-06-09] MEDS: BACLOFEN (10 MG) 10 MG TABLET GT SCH ×3 (05:40→21:00)
[2017-06-09] MEDS: LEVOTHYROXINE SODIUM 125 MCG TABLET GT SCH (05:40)
[2017-06-09] MEDS: GLYCOPYRROLATE 1 MG TABLET GT SCH ×3 (05:40→17:20)
[2017-06-09] MEDS: RENAL NOVASOURCE 1,000 ML BOTTLE GT PRN (05:52)
[2017-06-09 07:38] VITALS: BP 113/75
[2017-06-09] MEDS: MEROPENEM 500 MG in IV NS 0.9% 50 ML IV SCH ×2 (09:00→21:00)
[2017-06-09] MEDS: AMIODARONE HCL 200 MG TABLET GT SCH (09:23)
[2017-06-09] MEDS: POLYVINYL ALCOHOL 15 ML BOTTLE EACHEYE SCH ×4 (09:23→22:35)
[2017-06-09] MEDS: POTASSIUM CHLORIDE 20 MEQ/15 ML ML GT SCH (09:24)
[2017-06-09] MEDS: ACIDOPHILUS/BULGARICUS 1 EACH TAB.CHEW GT SCH (09:24)
[2017-06-09] MEDS: POLYETHYLENE GLYCOL 3350 17 GM POWD.PACK GT SCH (09:24)
[2017-06-09] MEDS: PANTOPRAZOLE 40 MG/PACK PACK GT SCH ×2 (09:24→21:00)
[2017-06-09] MEDS: HEPARIN SODIUM, PORCINE 5000 UNITS/1 ML VIAL SQ SCH ×2 (09:25→21:00)
[2017-06-09] MEDS: HYDROGEN PEROXIDE 480 ML BOTTLE TP SCH ×2 (09:25→21:00)
[2017-06-09] MEDS: CLOTRIMAZOLE 1% 15 GM TUBE TP SCH ×2 (09:25→21:00)
[2017-06-09] MEDS: ZINC OXIDE 30 GM TUBE TP SCH ×2 (09:25→21:00)
--- NOTE | 2017-06-09 14:51 | NUR ---
Received a dietary recommendations to increase current feeding rate of 40 ml/hour to 50 ml/hour x18 hours due to patient's weight loss. (April 2017=152 lbs, 2016=145 and reweighed patient on 06/05 = 142 lbs. Endorsed to follow-up with MD during rounds.
[2017-06-09] MEDS: VANCOMYCIN HCL 0.75 GM in IV D5W 250 ML IV SCH (20:00)
[2017-06-09 20:07] VITALS: BP 131/61
[2017-06-09] MEDS: FINASTERIDE (5 MG) 5 MG TABLET GT SCH (20:21)
[2017-06-09] MEDS: ASCORBIC ACID 500 MG TABLET GT SCH (21:00)
[2017-06-09] MEDS: DOCUSATE SODIUM LIQ 100 MG/10 ML UDC GT SCH (21:00)
[2017-06-09] MEDS: MULTIVIT, IRON, MIN NO. 8, FA 1 TAB GT SCH (21:00)
[2017-06-09] MEDS: SENNOSIDES 8.6 MG TABLET PO SCH (22:44)
[2017-06-10] MEDS: GLYCOPYRROLATE 1 MG TABLET GT SCH ×4 (00:41→18:08)
[2017-06-10] MEDS: ALBUTEROL FS 2.5 MG/3 ML VIAL.NEB NEB SCH ×4 (02:03→19:02)
[2017-06-10] MEDS: IPRATROPIUM NEB FS 0.5 MG/2.5 ML AMPUL.NEB NEB SCH ×4 (02:03→19:01)
[2017-06-10] MEDS: BACLOFEN (10 MG) 10 MG TABLET GT SCH ×3 (05:00→20:53)
[2017-06-10] MEDS: RENAL NOVASOURCE 1,000 ML BOTTLE GT PRN (06:03)
[2017-06-10] MEDS: LEVOTHYROXINE SODIUM 125 MCG TABLET GT SCH (06:05)
[2017-06-10] MEDS: HYDROGEN PEROXIDE 480 ML BOTTLE TP SCH ×2 (09:00→21:02)
[2017-06-10] MEDS: POLYVINYL ALCOHOL 15 ML BOTTLE EACHEYE SCH ×4 (09:00→20:52)
[2017-06-10] MEDS: PANTOPRAZOLE 40 MG/PACK PACK GT SCH ×2 (09:00→20:54)
[2017-06-10] MEDS: AMIODARONE HCL 200 MG TABLET GT SCH (09:00)
[2017-06-10] MEDS: ZINC OXIDE 30 GM TUBE TP SCH ×2 (09:00→21:02)
[2017-06-10] MEDS: HEPARIN SODIUM, PORCINE 5000 UNITS/1 ML VIAL SQ SCH ×2 (09:00→21:02)
[2017-06-10] MEDS: CLOTRIMAZOLE 1% 15 GM TUBE TP SCH ×2 (09:00→21:02)
[2017-06-10] MEDS: POLYETHYLENE GLYCOL 3350 17 GM POWD.PACK GT SCH (09:00)
[2017-06-10] MEDS: ACIDOPHILUS/BULGARICUS 1 EACH TAB.CHEW GT SCH (09:00)
[2017-06-10] MEDS: POTASSIUM CHLORIDE 20 MEQ/15 ML ML GT SCH (09:00)
[2017-06-10] MEDS: MEROPENEM 500 MG in IV NS 0.9% 50 ML IV SCH ×2 (09:22→21:00)
[2017-06-10] MEDS: VANCOMYCIN HCL 0.75 GM in IV D5W 250 ML IV SCH (20:00)
[2017-06-10 20:19] VITALS: BP 121/66
[2017-06-10] MEDS: FINASTERIDE (5 MG) 5 MG TABLET GT SCH (20:52)
[2017-06-10] MEDS: DOCUSATE SODIUM LIQ 100 MG/10 ML UDC GT SCH (20:53)
[2017-06-10] MEDS: MULTIVIT, IRON, MIN NO. 8, FA 1 TAB GT SCH (20:54)
[2017-06-10] MEDS: ASCORBIC ACID 500 MG TABLET GT SCH (20:54)
[2017-06-10] MEDS: SENNOSIDES 8.6 MG TABLET PO SCH (21:03)
[2017-06-11] MEDS: GLYCOPYRROLATE 1 MG TABLET GT SCH ×5 (00:35→23:46)
[2017-06-11] MEDS: ALBUTEROL FS 2.5 MG/3 ML VIAL.NEB NEB SCH ×4 (01:09→19:48)
[2017-06-11] MEDS: IPRATROPIUM NEB FS 0.5 MG/2.5 ML AMPUL.NEB NEB SCH ×4 (01:09→19:47)
[2017-06-11] MEDS: LEVOTHYROXINE SODIUM 125 MCG TABLET GT SCH (05:25)
[2017-06-11] MEDS: BACLOFEN (10 MG) 10 MG TABLET GT SCH ×3 (05:26→20:57)
[2017-06-11 07:35] VITALS: BP 101/58
[2017-06-11] MEDS: POLYVINYL ALCOHOL 15 ML BOTTLE EACHEYE SCH ×4 (09:19→20:56)
[2017-06-11] MEDS: ACIDOPHILUS/BULGARICUS 1 EACH TAB.CHEW GT SCH (09:20)
[2017-06-11] MEDS: POLYETHYLENE GLYCOL 3350 17 GM POWD.PACK GT SCH (09:20)
[2017-06-11] MEDS: AMIODARONE HCL 200 MG TABLET GT SCH (09:20)
[2017-06-11] MEDS: MEROPENEM 500 MG in IV NS 0.9% 50 ML IV SCH ×2 (09:20→21:00)
[2017-06-11] MEDS: POTASSIUM CHLORIDE 20 MEQ/15 ML ML GT SCH (09:20)
[2017-06-11] MEDS: PANTOPRAZOLE 40 MG/PACK PACK GT SCH ×2 (09:20→20:57)
[2017-06-11] MEDS: HEPARIN SODIUM, PORCINE 5000 UNITS/1 ML VIAL SQ SCH ×2 (09:22→20:59)
[2017-06-11] MEDS: ZINC OXIDE 30 GM TUBE TP SCH ×2 (09:22→20:59)
[2017-06-11] MEDS: CLOTRIMAZOLE 1% 15 GM TUBE TP SCH ×2 (09:22→20:59)
[2017-06-11] MEDS: HYDROGEN PEROXIDE 480 ML BOTTLE TP SCH ×2 (09:22→20:59)
[2017-06-11 20:08] VITALS: BP 105/62
[2017-06-11] MEDS: FINASTERIDE (5 MG) 5 MG TABLET GT SCH (20:56)
[2017-06-11] MEDS: DOCUSATE SODIUM LIQ 100 MG/10 ML UDC GT SCH (20:57)
[2017-06-11] MEDS: MULTIVIT, IRON, MIN NO. 8, FA 1 TAB GT SCH (20:59)
[2017-06-11] MEDS: ASCORBIC ACID 500 MG TABLET GT SCH (20:59)
[2017-06-11] MEDS: SENNOSIDES 8.6 MG TABLET PO SCH (21:00)
[2017-06-12] MEDS: IPRATROPIUM NEB FS 0.5 MG/2.5 ML AMPUL.NEB NEB SCH ×4 (00:36→20:03)
[2017-06-12] MEDS: ALBUTEROL FS 2.5 MG/3 ML VIAL.NEB NEB SCH ×4 (00:36→20:03)
[2017-06-12] MEDS: BACLOFEN (10 MG) 10 MG TABLET GT SCH ×3 (05:27→20:59)
[2017-06-12] MEDS: GLYCOPYRROLATE 1 MG TABLET GT SCH ×4 (05:27→23:16)
[2017-06-12] MEDS: LEVOTHYROXINE SODIUM 125 MCG TABLET GT SCH (05:28)
[2017-06-12 08:00] VITALS: BP 125/79
[2017-06-12] MEDS: HYDROGEN PEROXIDE 480 ML BOTTLE TP SCH ×2 (09:00→21:00)
[2017-06-12] MEDS: ZINC OXIDE 30 GM TUBE TP SCH ×2 (09:00→21:00)
[2017-06-12] MEDS: CLOTRIMAZOLE 1% 15 GM TUBE TP SCH ×2 (09:00→21:00)
[2017-06-12] MEDS: POLYVINYL ALCOHOL 15 ML BOTTLE EACHEYE SCH ×4 (09:25→20:59)
[2017-06-12] MEDS: AMIODARONE HCL 200 MG TABLET GT SCH (09:25)
[2017-06-12] MEDS: POLYETHYLENE GLYCOL 3350 17 GM POWD.PACK GT SCH (09:26)
[2017-06-12] MEDS: HEPARIN SODIUM, PORCINE 5000 UNITS/1 ML VIAL SQ SCH ×2 (09:26→21:00)
[2017-06-12] MEDS: PANTOPRAZOLE 40 MG/PACK PACK GT SCH ×2 (09:26→20:59)
[2017-06-12] MEDS: POTASSIUM CHLORIDE 20 MEQ/15 ML ML GT SCH (09:26)
[2017-06-12] MEDS: ACIDOPHILUS/BULGARICUS 1 EACH TAB.CHEW GT SCH (09:26)
[2017-06-12] MEDS: MEROPENEM 500 MG in IV NS 0.9% 50 ML IV SCH ×2 (09:59→21:00)
--- NOTE | 2017-06-12 12:08 | NUR ---
Referred sanitor's recommendation to Dr. Paniagua. Received order to increase GT Feeding Novasource renal from 40 mL/hr to 50 mL/hr x 18 hours a day.
[2017-06-12 19:50] VITALS: BP 118/66
[2017-06-12] MEDS: FINASTERIDE (5 MG) 5 MG TABLET GT SCH (20:59)
[2017-06-12] MEDS: ASCORBIC ACID 500 MG TABLET GT SCH (20:59)
[2017-06-12] MEDS: MULTIVIT, IRON, MIN NO. 8, FA 1 TAB GT SCH (20:59)
[2017-06-12] MEDS: DOCUSATE SODIUM LIQ 100 MG/10 ML UDC GT SCH (20:59)
[2017-06-12] MEDS: SENNOSIDES 8.6 MG TABLET PO SCH (21:00)
[2017-06-13] MEDS: ALBUTEROL FS 2.5 MG/3 ML VIAL.NEB NEB SCH ×4 (01:59→19:35)
[2017-06-13] MEDS: IPRATROPIUM NEB FS 0.5 MG/2.5 ML AMPUL.NEB NEB SCH ×4 (01:59→19:35)
[2017-06-13] MEDS: BACLOFEN (10 MG) 10 MG TABLET GT SCH ×3 (05:08→20:51)
[2017-06-13] MEDS: LEVOTHYROXINE SODIUM 125 MCG TABLET GT SCH (05:08)
[2017-06-13] MEDS: GLYCOPYRROLATE 1 MG TABLET GT SCH ×4 (05:08→23:40)
[2017-06-13 07:48] VITALS: BP 106/56
[2017-06-13] MEDS: POLYVINYL ALCOHOL 15 ML BOTTLE EACHEYE SCH ×4 (09:04→20:50)
[2017-06-13] MEDS: POTASSIUM CHLORIDE 20 MEQ/15 ML ML GT SCH (09:05)
[2017-06-13] MEDS: HYDROGEN PEROXIDE 480 ML BOTTLE TP SCH ×2 (09:05→20:56)
[2017-06-13] MEDS: PANTOPRAZOLE 40 MG/PACK PACK GT SCH ×2 (09:05→20:52)
[2017-06-13] MEDS: ZINC OXIDE 30 GM TUBE TP SCH ×2 (09:05→20:56)
[2017-06-13] MEDS: CLOTRIMAZOLE 1% 15 GM TUBE TP SCH ×2 (09:05→20:56)
[2017-06-13] MEDS: ACIDOPHILUS/BULGARICUS 1 EACH TAB.CHEW GT SCH (09:05)
[2017-06-13] MEDS: HEPARIN SODIUM, PORCINE 5000 UNITS/1 ML VIAL SQ SCH ×2 (09:05→20:56)
[2017-06-13] MEDS: AMIODARONE HCL 200 MG TABLET GT SCH (09:05)
[2017-06-13] MEDS: POLYETHYLENE GLYCOL 3350 17 GM POWD.PACK GT SCH (09:05)
[2017-06-13 20:13] VITALS: BP 111/63
[2017-06-13] MEDS: FINASTERIDE (5 MG) 5 MG TABLET GT SCH (20:50)
[2017-06-13] MEDS: DOCUSATE SODIUM LIQ 100 MG/10 ML UDC GT SCH (20:51)
[2017-06-13] MEDS: MULTIVIT, IRON, MIN NO. 8, FA 1 TAB GT SCH (20:53)
[2017-06-13] MEDS: ASCORBIC ACID 500 MG TABLET GT SCH (20:53)
[2017-06-13] MEDS: SENNOSIDES 8.6 MG TABLET PO SCH (21:03)
[2017-06-13] MEDS: RENAL NOVASOURCE 1,000 ML BOTTLE GT PRN (23:41)
[2017-06-14] MEDS: ALBUTEROL FS 2.5 MG/3 ML VIAL.NEB NEB SCH ×4 (01:35→20:21)
[2017-06-14] MEDS: IPRATROPIUM NEB FS 0.5 MG/2.5 ML AMPUL.NEB NEB SCH ×4 (01:35→20:21)
[2017-06-14] MEDS: GLYCOPYRROLATE 1 MG TABLET GT SCH ×4 (05:19→23:39)
[2017-06-14] MEDS: BACLOFEN (10 MG) 10 MG TABLET GT SCH ×3 (05:20→21:31)
[2017-06-14] MEDS: LEVOTHYROXINE SODIUM 125 MCG TABLET GT SCH (05:20)
[2017-06-14 07:50] VITALS: BP 124/63
[2017-06-14] MEDS: POLYVINYL ALCOHOL 15 ML BOTTLE EACHEYE SCH ×4 (09:12→21:31)
[2017-06-14] MEDS: ACIDOPHILUS/BULGARICUS 1 EACH TAB.CHEW GT SCH (09:13)
[2017-06-14] MEDS: AMIODARONE HCL 200 MG TABLET GT SCH (09:13)
[2017-06-14] MEDS: POLYETHYLENE GLYCOL 3350 17 GM POWD.PACK GT SCH (09:14)
[2017-06-14] MEDS: POTASSIUM CHLORIDE 20 MEQ/15 ML ML GT SCH (09:15)
[2017-06-14] MEDS: PANTOPRAZOLE 40 MG/PACK PACK GT SCH ×2 (09:15→21:31)
[2017-06-14] MEDS: CLOTRIMAZOLE 1% 15 GM TUBE TP SCH ×2 (09:16→21:33)
[2017-06-14] MEDS: ZINC OXIDE 30 GM TUBE TP SCH ×2 (09:16→21:34)
[2017-06-14] MEDS: HYDROGEN PEROXIDE 480 ML BOTTLE TP SCH ×2 (09:16→21:32)
[2017-06-14] MEDS: HEPARIN SODIUM, PORCINE 5000 UNITS/1 ML VIAL SQ SCH ×2 (09:16→21:32)
[2017-06-14] MEDS: FINASTERIDE (5 MG) 5 MG TABLET GT SCH (20:00)
[2017-06-14 20:11] VITALS: BP 124/61
[2017-06-14] MEDS: ASCORBIC ACID 500 MG TABLET GT SCH (21:31)
[2017-06-14] MEDS: MULTIVIT, IRON, MIN NO. 8, FA 1 TAB GT SCH (21:31)
[2017-06-14] MEDS: DOCUSATE SODIUM LIQ 100 MG/10 ML UDC GT SCH (21:31)
[2017-06-14] MEDS: SENNOSIDES 8.6 MG TABLET PO SCH (21:34)
[2017-06-15] MEDS: ALBUTEROL FS 2.5 MG/3 ML VIAL.NEB NEB SCH ×4 (02:05→20:19)
[2017-06-15] MEDS: IPRATROPIUM NEB FS 0.5 MG/2.5 ML AMPUL.NEB NEB SCH ×4 (02:05→20:19)
[2017-06-15] MEDS: BACLOFEN (10 MG) 10 MG TABLET GT SCH ×3 (05:15→21:09)
[2017-06-15] MEDS: LEVOTHYROXINE SODIUM 125 MCG TABLET GT SCH (05:15)
[2017-06-15] MEDS: GLYCOPYRROLATE 1 MG TABLET GT SCH ×4 (05:15→23:25)
[2017-06-15] MEDS: RENAL NOVASOURCE 1,000 ML BOTTLE GT PRN (05:15)
[2017-06-15 07:28] VITALS: BP 101/68
[2017-06-15] MEDS: ERGOCALCIFEROL (VITAMIN D2) 8,000 UNIT/ML GT SCH (09:00)
[2017-06-15] MEDS: ACIDOPHILUS/BULGARICUS 1 EACH TAB.CHEW GT SCH (09:52)
[2017-06-15] MEDS: AMIODARONE HCL 200 MG TABLET GT SCH (09:52)
[2017-06-15] MEDS: PANTOPRAZOLE 40 MG/PACK PACK GT SCH ×2 (09:52→21:09)
[2017-06-15] MEDS: POLYVINYL ALCOHOL 15 ML BOTTLE EACHEYE SCH ×4 (09:52→21:09)
[2017-06-15] MEDS: POLYETHYLENE GLYCOL 3350 17 GM POWD.PACK GT SCH (09:52)
[2017-06-15] MEDS: POTASSIUM CHLORIDE 20 MEQ/15 ML ML GT SCH (09:52)
[2017-06-15] MEDS: HEPARIN SODIUM, PORCINE 5000 UNITS/1 ML VIAL SQ SCH ×2 (09:53→21:10)
[2017-06-15] MEDS: ZINC OXIDE 30 GM TUBE TP SCH ×2 (09:53→21:10)
[2017-06-15] MEDS: CLOTRIMAZOLE 1% 15 GM TUBE TP SCH ×2 (09:53→21:10)
[2017-06-15] MEDS: HYDROGEN PEROXIDE 480 ML BOTTLE TP SCH ×2 (09:53→21:10)
[2017-06-15 20:00] VITALS: BP 106/60
[2017-06-15] MEDS: FINASTERIDE (5 MG) 5 MG TABLET GT SCH (20:00)
[2017-06-15] MEDS: DOCUSATE SODIUM LIQ 100 MG/10 ML UDC GT SCH (21:09)
[2017-06-15] MEDS: ASCORBIC ACID 500 MG TABLET GT SCH (21:09)
[2017-06-15] MEDS: MULTIVIT, IRON, MIN NO. 8, FA 1 TAB GT SCH (21:09)
[2017-06-15] MEDS: SENNOSIDES 8.6 MG TABLET PO SCH (21:10)
[2017-06-15] MEDS: MAGNESIUM HYDROXIDE 30 ML UDC GT PRN (21:10)
--- NOTE | 2017-06-15 21:11 | NUR ---
Pt awake and calm, no s/sx of discomfort, pt noted with no bm >24 hrs, repositioned pt, and gentle abd massage rendered, due meds given and prn milk of magnesia with water flush given to pt for constipation. Pt's at bs this time, will cont to monitor and anticipate needs.
[2017-06-16] MEDS: ALBUTEROL FS 2.5 MG/3 ML VIAL.NEB NEB SCH ×4 (01:19→20:27)
[2017-06-16] MEDS: IPRATROPIUM NEB FS 0.5 MG/2.5 ML AMPUL.NEB NEB SCH ×4 (01:19→20:27)
[2017-06-16] MEDS: BACLOFEN (10 MG) 10 MG TABLET GT SCH ×3 (05:26→20:57)
[2017-06-16] MEDS: BISACODYL SUPP (10 MG) 10 MG/SUPP.RECT SUPP.RECT RC PRN (05:26)
[2017-06-16] MEDS: LEVOTHYROXINE SODIUM 125 MCG TABLET GT SCH (05:26)
[2017-06-16] MEDS: GLYCOPYRROLATE 1 MG TABLET GT SCH ×3 (05:26→17:19)
[2017-06-16] MEDS: RENAL NOVASOURCE 1,000 ML BOTTLE GT PRN (05:26)
--- NOTE | 2017-06-16 05:26 | NUR ---
Prn Mom ineffective, no bm still noted, pt repositioned q 2 hrs, due meds and water flushes given as ordered no other significant changes of clinical condition noted, prn Dulcolax supp 10 mg rectal given as ordered for constipation if mom ineffective.
[2017-06-16 08:00] VITALS: BP 100/65
[2017-06-16] MEDS: POLYVINYL ALCOHOL 15 ML BOTTLE EACHEYE SCH ×4 (09:19→20:57)
[2017-06-16] MEDS: HEPARIN SODIUM, PORCINE 5000 UNITS/1 ML VIAL SQ SCH ×2 (09:20→20:57)
[2017-06-16] MEDS: HYDROGEN PEROXIDE 480 ML BOTTLE TP SCH ×2 (09:20→20:58)
[2017-06-16] MEDS: POLYETHYLENE GLYCOL 3350 17 GM POWD.PACK GT SCH (09:20)
[2017-06-16] MEDS: AMIODARONE HCL 200 MG TABLET GT SCH (09:20)
[2017-06-16] MEDS: ACIDOPHILUS/BULGARICUS 1 EACH TAB.CHEW GT SCH (09:20)
[2017-06-16] MEDS: PANTOPRAZOLE 40 MG/PACK PACK GT SCH ×2 (09:20→20:57)
[2017-06-16] MEDS: POTASSIUM CHLORIDE 20 MEQ/15 ML ML GT SCH (09:20)
[2017-06-16] MEDS: ZINC OXIDE 30 GM TUBE TP SCH ×2 (09:21→20:58)
[2017-06-16] MEDS: CLOTRIMAZOLE 1% 15 GM TUBE TP SCH ×2 (09:21→20:58)
[2017-06-16 20:01] VITALS: BP 124/60
[2017-06-16] MEDS: MULTIVIT, IRON, MIN NO. 8, FA 1 TAB GT SCH (20:57)
[2017-06-16] MEDS: ASCORBIC ACID 500 MG TABLET GT SCH (20:57)
[2017-06-16] MEDS: FINASTERIDE (5 MG) 5 MG TABLET GT SCH (20:57)
[2017-06-16] MEDS: DOCUSATE SODIUM LIQ 100 MG/10 ML UDC GT SCH (20:57)
[2017-06-16] MEDS: SENNOSIDES 8.6 MG TABLET PO SCH (21:43)
[2017-06-17] MEDS: GLYCOPYRROLATE 1 MG TABLET GT SCH ×4 (00:14→18:01)
[2017-06-17] MEDS: ALBUTEROL FS 2.5 MG/3 ML VIAL.NEB NEB SCH ×4 (02:25→19:30)
[2017-06-17] MEDS: IPRATROPIUM NEB FS 0.5 MG/2.5 ML AMPUL.NEB NEB SCH ×4 (02:25→19:30)
[2017-06-17] MEDS: RENAL NOVASOURCE 1,000 ML BOTTLE GT PRN (05:22)
[2017-06-17] MEDS: LEVOTHYROXINE SODIUM 125 MCG TABLET GT SCH (05:22)
[2017-06-17] MEDS: BACLOFEN (10 MG) 10 MG TABLET GT SCH ×3 (05:22→20:41)
[2017-06-17 07:58] VITALS: BP 104/67
[2017-06-17] MEDS: AMIODARONE HCL 200 MG TABLET GT SCH (08:39)
[2017-06-17] MEDS: POLYETHYLENE GLYCOL 3350 17 GM POWD.PACK GT SCH (08:39)
[2017-06-17] MEDS: POLYVINYL ALCOHOL 15 ML BOTTLE EACHEYE SCH ×4 (08:39→20:41)
[2017-06-17] MEDS: PANTOPRAZOLE 40 MG/PACK PACK GT SCH ×2 (08:39→20:41)
[2017-06-17] MEDS: POTASSIUM CHLORIDE 20 MEQ/15 ML ML GT SCH (08:39)
[2017-06-17] MEDS: ACIDOPHILUS/BULGARICUS 1 EACH TAB.CHEW GT SCH (08:39)
[2017-06-17] MEDS: HEPARIN SODIUM, PORCINE 5000 UNITS/1 ML VIAL SQ SCH ×2 (08:39→20:42)
[2017-06-17] MEDS: ZINC OXIDE 30 GM TUBE TP SCH ×2 (08:40→20:44)
[2017-06-17] MEDS: CLOTRIMAZOLE 1% 15 GM TUBE TP SCH ×2 (08:40→20:44)
[2017-06-17] MEDS: HYDROGEN PEROXIDE 480 ML BOTTLE TP SCH ×2 (08:40→20:44)
[2017-06-17] MEDS: ASCORBIC ACID 500 MG TABLET GT SCH (20:41)
[2017-06-17] MEDS: MULTIVIT, IRON, MIN NO. 8, FA 1 TAB GT SCH (20:41)
[2017-06-17] MEDS: DOCUSATE SODIUM LIQ 100 MG/10 ML UDC GT SCH (20:41)
[2017-06-17] MEDS: FINASTERIDE (5 MG) 5 MG TABLET GT SCH (20:41)
[2017-06-17 21:37] VITALS: BP 111/64
[2017-06-17] MEDS: SENNOSIDES 8.6 MG TABLET PO SCH (21:45)
[2017-06-18] MEDS: GLYCOPYRROLATE 1 MG TABLET GT SCH ×5 (00:11→23:26)
[2017-06-18] MEDS: ALBUTEROL FS 2.5 MG/3 ML VIAL.NEB NEB SCH ×4 (01:24→20:21)
[2017-06-18] MEDS: IPRATROPIUM NEB FS 0.5 MG/2.5 ML AMPUL.NEB NEB SCH ×4 (01:24→20:21)
[2017-06-18] MEDS: LEVOTHYROXINE SODIUM 125 MCG TABLET GT SCH (05:29)
[2017-06-18] MEDS: BACLOFEN (10 MG) 10 MG TABLET GT SCH ×3 (05:29→20:48)
[2017-06-18] MEDS: RENAL NOVASOURCE 1,000 ML BOTTLE GT PRN (07:25)
[2017-06-18] MEDS: POLYVINYL ALCOHOL 15 ML BOTTLE EACHEYE SCH ×4 (08:54→20:48)
[2017-06-18] MEDS: POLYETHYLENE GLYCOL 3350 17 GM POWD.PACK GT SCH (08:55)
[2017-06-18] MEDS: ACIDOPHILUS/BULGARICUS 1 EACH TAB.CHEW GT SCH (08:55)
[2017-06-18] MEDS: POTASSIUM CHLORIDE 20 MEQ/15 ML ML GT SCH (08:55)
[2017-06-18] MEDS: PANTOPRAZOLE 40 MG/PACK PACK GT SCH ×2 (08:57→20:48)
[2017-06-18] MEDS: HEPARIN SODIUM, PORCINE 5000 UNITS/1 ML VIAL SQ SCH ×2 (08:59→20:50)
[2017-06-18] MEDS: HYDROGEN PEROXIDE 480 ML BOTTLE TP SCH ×2 (09:00→20:50)
[2017-06-18] MEDS: CLOTRIMAZOLE 1% 15 GM TUBE TP SCH ×2 (09:00→20:50)
[2017-06-18] MEDS: ZINC OXIDE 30 GM TUBE TP SCH ×2 (09:00→20:50)
[2017-06-18] MEDS: AMIODARONE HCL 200 MG TABLET GT SCH (09:10)
[2017-06-18] MEDS: MULTIVIT, IRON, MIN NO. 8, FA 1 TAB GT SCH (20:48)
[2017-06-18] MEDS: ASCORBIC ACID 500 MG TABLET GT SCH (20:48)
[2017-06-18] MEDS: DOCUSATE SODIUM LIQ 100 MG/10 ML UDC GT SCH (20:48)
[2017-06-18] MEDS: FINASTERIDE (5 MG) 5 MG TABLET GT SCH (20:48)
[2017-06-18 21:11] VITALS: BP 114/69
[2017-06-18] MEDS: SENNOSIDES 8.6 MG TABLET PO SCH (21:43)
[2017-06-19] MEDS: IPRATROPIUM NEB FS 0.5 MG/2.5 ML AMPUL.NEB NEB SCH ×4 (02:12→19:46)
[2017-06-19] MEDS: ALBUTEROL FS 2.5 MG/3 ML VIAL.NEB NEB SCH ×4 (02:13→19:46)
[2017-06-19] MEDS: BACLOFEN (10 MG) 10 MG TABLET GT SCH ×3 (05:51→20:30)
[2017-06-19] MEDS: GLYCOPYRROLATE 1 MG TABLET GT SCH ×4 (05:51→23:45)
[2017-06-19] MEDS: LEVOTHYROXINE SODIUM 125 MCG TABLET GT SCH (05:51)
[2017-06-19] MEDS: HYDROGEN PEROXIDE 480 ML BOTTLE TP SCH ×2 (08:25→20:31)
[2017-06-19] MEDS: ZINC OXIDE 30 GM TUBE TP SCH ×2 (08:25→20:31)
[2017-06-19] MEDS: POLYETHYLENE GLYCOL 3350 17 GM POWD.PACK GT SCH (08:26)
[2017-06-19] MEDS: POLYVINYL ALCOHOL 15 ML BOTTLE EACHEYE SCH ×4 (08:26→20:28)
[2017-06-19] MEDS: AMIODARONE HCL 200 MG TABLET GT SCH (08:26)
[2017-06-19] MEDS: HEPARIN SODIUM, PORCINE 5000 UNITS/1 ML VIAL SQ SCH ×2 (08:35→20:31)
[2017-06-19] MEDS: PANTOPRAZOLE 40 MG/PACK PACK GT SCH ×2 (08:36→20:30)
[2017-06-19] MEDS: POTASSIUM CHLORIDE 20 MEQ/15 ML ML GT SCH (08:36)
[2017-06-19] MEDS: ACIDOPHILUS/BULGARICUS 1 EACH TAB.CHEW GT SCH (08:36)
[2017-06-19 09:00] VITALS: BP 101/63
--- NOTE | 2017-06-19 10:15 | NUR ---
Seen and examined by Dr. David, NNO given.
[2017-06-19 19:53] VITALS: BP 100/55
[2017-06-19] MEDS: DOCUSATE SODIUM LIQ 100 MG/10 ML UDC GT SCH (20:28)
[2017-06-19] MEDS: FINASTERIDE (5 MG) 5 MG TABLET GT SCH (20:28)
[2017-06-19] MEDS: ASCORBIC ACID 500 MG TABLET GT SCH (20:30)
[2017-06-19] MEDS: MULTIVIT, IRON, MIN NO. 8, FA 1 TAB GT SCH (20:30)
[2017-06-19] MEDS: SENNOSIDES 8.6 MG TABLET PO SCH (22:06)
[2017-06-20] MEDS: ALBUTEROL FS 2.5 MG/3 ML VIAL.NEB NEB SCH ×4 (00:57→19:52)
[2017-06-20] MEDS: IPRATROPIUM NEB FS 0.5 MG/2.5 ML AMPUL.NEB NEB SCH ×4 (00:57→19:52)
[2017-06-20] MEDS: GLYCOPYRROLATE 1 MG TABLET GT SCH ×4 (05:10→23:20)
[2017-06-20] MEDS: BACLOFEN (10 MG) 10 MG TABLET GT SCH ×3 (05:10→20:15)
[2017-06-20] MEDS: LEVOTHYROXINE SODIUM 125 MCG TABLET GT SCH (05:10)
[2017-06-20 08:21] VITALS: BP 103/61
[2017-06-20] MEDS: ACIDOPHILUS/BULGARICUS 1 EACH TAB.CHEW GT SCH (09:00)
[2017-06-20] MEDS: HYDROGEN PEROXIDE 480 ML BOTTLE TP SCH ×2 (09:00→20:16)
[2017-06-20] MEDS: ZINC OXIDE 30 GM TUBE TP SCH ×2 (09:00→20:16)
[2017-06-20] MEDS: POLYVINYL ALCOHOL 15 ML BOTTLE EACHEYE SCH ×4 (09:00→20:15)
[2017-06-20] MEDS: AMIODARONE HCL 200 MG TABLET GT SCH (09:00)
[2017-06-20] MEDS: POTASSIUM CHLORIDE 20 MEQ/15 ML ML GT SCH (09:00)
[2017-06-20] MEDS: PANTOPRAZOLE 40 MG/PACK PACK GT SCH ×2 (09:00→20:15)
[2017-06-20] MEDS: HEPARIN SODIUM, PORCINE 5000 UNITS/1 ML VIAL SQ SCH ×2 (09:00→20:16)
[2017-06-20] MEDS: POLYETHYLENE GLYCOL 3350 17 GM POWD.PACK GT SCH (09:00)
[2017-06-20] MEDS: RENAL NOVASOURCE 1,000 ML BOTTLE GT PRN (13:35)
--- NOTE | 2017-06-20 17:00 | NUR ---
notified of temporary room change due to installation of new call light system in the room.
[2017-06-20] MEDS: ASCORBIC ACID 500 MG TABLET GT SCH (20:15)
[2017-06-20] MEDS: FINASTERIDE (5 MG) 5 MG TABLET GT SCH (20:15)
[2017-06-20] MEDS: DOCUSATE SODIUM LIQ 100 MG/10 ML UDC GT SCH (20:15)
[2017-06-20] MEDS: MULTIVIT, IRON, MIN NO. 8, FA 1 TAB GT SCH (20:15)
[2017-06-20] MEDS: SENNOSIDES 8.6 MG TABLET PO SCH (22:08)
[2017-06-20 23:08] VITALS: BP 111/58
[2017-06-21] MEDS: ALBUTEROL FS 2.5 MG/3 ML VIAL.NEB NEB SCH ×4 (02:04→19:42)
[2017-06-21] MEDS: IPRATROPIUM NEB FS 0.5 MG/2.5 ML AMPUL.NEB NEB SCH ×4 (02:04→19:42)
[2017-06-21] MEDS: LEVOTHYROXINE SODIUM 125 MCG TABLET GT SCH (05:21)
[2017-06-21] MEDS: BACLOFEN (10 MG) 10 MG TABLET GT SCH ×3 (05:21→21:14)
[2017-06-21] MEDS: GLYCOPYRROLATE 1 MG TABLET GT SCH ×3 (05:21→17:22)
[2017-06-21 07:30] LABS: BASOPHILS % (AUTO) 0.4 % (0.0-2.0); EOSINOPHILS # (AUTO) 0.4 /CMM (0.0-0.7); EOSINOPHILS % (AUTO) 3.1 % (0.0-6.0); HEMATOCRIT 36 % (39-51); HEMOGLOBIN 11.5 g/dL (13.5-17.5); LYMPHOCYTES # (AUTO) 1.8 /CMM (0.8-4.8); LYMPHOCYTES % (AUTO) 14.8 % (20.0-44.0); MEAN CORPUSCULAR HEMOGLOBIN 24 PG (26.0-33.0); MEAN CORPUSCULAR HGB CONC 32 g/dl (31.0-36.0); MEAN CORPUSCULAR VOLUME 77 fL (80-96); MONOCYTES # (AUTO) 1.3 /CMM (0.1-1.30); MONOCYTES % (AUTO) 10.2 % (2.0-12.0); NEUTROPHILS # (AUTO) 8.9 /CMM (1.8-8.9); NEUTROPHILS % (AUTO) 71.5 % (43.0-81.0); PLATELET COUNT (AUTO) 324 /CMM (150-450); RDW COEFFICIENT OF VARIATION 18.5 (11.5-15.0); RED BLOOD CELL COUNT(AUTO) 4.72 MIL/uL (4.5-6.0); WHITE BLOOD COUNT (AUTO) 12.5 K/uL (4.3-11.0)
[2017-06-21] MEDS: POLYVINYL ALCOHOL 15 ML BOTTLE EACHEYE SCH ×4 (08:23→21:14)
[2017-06-21] MEDS: ACIDOPHILUS/BULGARICUS 1 EACH TAB.CHEW GT SCH (08:24)
[2017-06-21] MEDS: POLYETHYLENE GLYCOL 3350 17 GM POWD.PACK GT SCH (08:24)
[2017-06-21] MEDS: AMIODARONE HCL 200 MG TABLET GT SCH (08:24)
[2017-06-21] MEDS: POTASSIUM CHLORIDE 20 MEQ/15 ML ML GT SCH (08:25)
[2017-06-21] MEDS: PANTOPRAZOLE 40 MG/PACK PACK GT SCH ×2 (08:25→21:14)
[2017-06-21 08:27] VITALS: BP 114/76
[2017-06-21] MEDS: HEPARIN SODIUM, PORCINE 5000 UNITS/1 ML VIAL SQ SCH ×2 (08:28→21:15)
[2017-06-21] MEDS: HYDROGEN PEROXIDE 480 ML BOTTLE TP SCH ×2 (08:28→21:15)
[2017-06-21] MEDS: ZINC OXIDE 30 GM TUBE TP SCH ×2 (08:28→21:15)
--- NOTE | 2017-06-21 13:00 | NUR ---
Seen by CARMELITA.[place] ,relayed CBC result no new orders at this time.continue to monitor.
[2017-06-21] MEDS: RENAL NOVASOURCE 1,000 ML BOTTLE GT PRN (15:21)
[2017-06-21] MEDS: FINASTERIDE (5 MG) 5 MG TABLET GT SCH (20:00)
[2017-06-21] MEDS: MULTIVIT, IRON, MIN NO. 8, FA 1 TAB GT SCH (21:14)
[2017-06-21] MEDS: DOCUSATE SODIUM LIQ 100 MG/10 ML UDC GT SCH (21:14)
[2017-06-21] MEDS: ASCORBIC ACID 500 MG TABLET GT SCH (21:14)
[2017-06-21] MEDS: SENNOSIDES 8.6 MG TABLET PO SCH (21:15)
[2017-06-21 22:52] VITALS: BP 110/62
[2017-06-22] MEDS: GLYCOPYRROLATE 1 MG TABLET GT SCH ×4 (00:20→18:47)
[2017-06-22] MEDS: ALBUTEROL FS 2.5 MG/3 ML VIAL.NEB NEB SCH ×4 (00:43→19:25)
[2017-06-22] MEDS: IPRATROPIUM NEB FS 0.5 MG/2.5 ML AMPUL.NEB NEB SCH ×4 (00:43→19:25)
[2017-06-22] MEDS: LEVOTHYROXINE SODIUM 125 MCG TABLET GT SCH (05:11)
[2017-06-22] MEDS: BACLOFEN (10 MG) 10 MG TABLET GT SCH ×3 (05:11→20:58)
[2017-06-22 08:08] VITALS: BP 97/55
[2017-06-22] MEDS: ZINC OXIDE 30 GM TUBE TP SCH ×2 (09:00→20:58)
[2017-06-22] MEDS: HYDROGEN PEROXIDE 480 ML BOTTLE TP SCH ×2 (09:00→20:58)
[2017-06-22] MEDS: POLYVINYL ALCOHOL 15 ML BOTTLE EACHEYE SCH ×4 (09:55→20:58)
[2017-06-22] MEDS: POLYETHYLENE GLYCOL 3350 17 GM POWD.PACK GT SCH (09:56)
[2017-06-22] MEDS: ACIDOPHILUS/BULGARICUS 1 EACH TAB.CHEW GT SCH (09:56)
[2017-06-22] MEDS: PANTOPRAZOLE 40 MG/PACK PACK GT SCH ×2 (09:56→20:58)
[2017-06-22] MEDS: POTASSIUM CHLORIDE 20 MEQ/15 ML ML GT SCH (09:56)
[2017-06-22] MEDS: AMIODARONE HCL 200 MG TABLET GT SCH (09:56)
[2017-06-22] MEDS: HEPARIN SODIUM, PORCINE 5000 UNITS/1 ML VIAL SQ SCH ×2 (10:00→20:58)
--- NOTE | 2017-06-22 14:25 | NUR ---
IDT meeting held, family unable to attend the meeting. Reviewed current medication orders, treatment and labs. Feeding will remain the same despite weight loss. Resident within the range of appropriate weight. Resident is stable and will continue with RNA. No new orders for resident given during IDT meeting.
--- NOTE | 2017-06-22 14:49 | NUR ---
Per resident's , she would like for her to receive the flu vaccine. Informed charge nurse.
[2017-06-22] MEDS: MULTIVIT, IRON, MIN NO. 8, FA 1 TAB GT SCH (20:58)
[2017-06-22] MEDS: ASCORBIC ACID 500 MG TABLET GT SCH (20:58)
[2017-06-22] MEDS: FINASTERIDE (5 MG) 5 MG TABLET GT SCH (20:58)
[2017-06-22] MEDS: DOCUSATE SODIUM LIQ 100 MG/10 ML UDC GT SCH (20:58)
[2017-06-22] MEDS: SENNOSIDES 8.6 MG TABLET PO SCH (21:01)
[2017-06-22 23:31] VITALS: BP 97/60
[2017-06-23] MEDS: GLYCOPYRROLATE 1 MG TABLET GT SCH ×5 (00:13→23:43)
[2017-06-23] MEDS: IPRATROPIUM NEB FS 0.5 MG/2.5 ML AMPUL.NEB NEB SCH ×4 (01:11→19:14)
[2017-06-23] MEDS: ALBUTEROL FS 2.5 MG/3 ML VIAL.NEB NEB SCH ×4 (01:11→19:14)
[2017-06-23] MEDS: LEVOTHYROXINE SODIUM 125 MCG TABLET GT SCH (05:10)
[2017-06-23] MEDS: BACLOFEN (10 MG) 10 MG TABLET GT SCH ×3 (05:10→20:52)
[2017-06-23 07:43] VITALS: BP 106/73
[2017-06-23] MEDS: ACIDOPHILUS/BULGARICUS 1 EACH TAB.CHEW GT SCH (09:10)
[2017-06-23] MEDS: POLYVINYL ALCOHOL 15 ML BOTTLE EACHEYE SCH ×4 (09:10→20:52)
[2017-06-23] MEDS: POTASSIUM CHLORIDE 20 MEQ/15 ML ML GT SCH (09:10)
[2017-06-23] MEDS: ZINC OXIDE 30 GM TUBE TP SCH ×2 (09:10→20:52)
[2017-06-23] MEDS: AMIODARONE HCL 200 MG TABLET GT SCH (09:10)
[2017-06-23] MEDS: POLYETHYLENE GLYCOL 3350 17 GM POWD.PACK GT SCH (09:10)
[2017-06-23] MEDS: HYDROGEN PEROXIDE 480 ML BOTTLE TP SCH ×2 (09:10→20:52)
[2017-06-23] MEDS: PANTOPRAZOLE 40 MG/PACK PACK GT SCH ×2 (09:10→20:52)
[2017-06-23] MEDS: HEPARIN SODIUM, PORCINE 5000 UNITS/1 ML VIAL SQ SCH ×2 (09:10→20:52)
[2017-06-23] MEDS: RENAL NOVASOURCE 1,000 ML BOTTLE GT PRN (17:40)
[2017-06-23] MEDS: FINASTERIDE (5 MG) 5 MG TABLET GT SCH (20:51)
[2017-06-23] MEDS: DOCUSATE SODIUM LIQ 100 MG/10 ML UDC GT SCH (20:52)
[2017-06-23] MEDS: ASCORBIC ACID 500 MG TABLET GT SCH (20:52)
[2017-06-23] MEDS: MULTIVIT, IRON, MIN NO. 8, FA 1 TAB GT SCH (20:52)
[2017-06-23] MEDS: SENNOSIDES 8.6 MG TABLET PO SCH (21:27)
[2017-06-23 22:28] VITALS: BP 131/77
[2017-06-24] MEDS: ALBUTEROL FS 2.5 MG/3 ML VIAL.NEB NEB SCH ×4 (01:41→19:40)
[2017-06-24] MEDS: IPRATROPIUM NEB FS 0.5 MG/2.5 ML AMPUL.NEB NEB SCH ×4 (01:41→19:40)
[2017-06-24] MEDS: LEVOTHYROXINE SODIUM 125 MCG TABLET GT SCH (05:19)
[2017-06-24] MEDS: GLYCOPYRROLATE 1 MG TABLET GT SCH ×4 (05:19→23:28)
[2017-06-24] MEDS: BACLOFEN (10 MG) 10 MG TABLET GT SCH ×3 (05:19→20:43)
[2017-06-24] MEDS: MAGNESIUM HYDROXIDE 30 ML UDC GT PRN (05:20)
[2017-06-24] MEDS: POTASSIUM CHLORIDE 20 MEQ/15 ML ML GT SCH (08:38)
[2017-06-24] MEDS: ACIDOPHILUS/BULGARICUS 1 EACH TAB.CHEW GT SCH (08:38)
[2017-06-24] MEDS: POLYETHYLENE GLYCOL 3350 17 GM POWD.PACK GT SCH (08:38)
[2017-06-24] MEDS: AMIODARONE HCL 200 MG TABLET GT SCH (08:38)
[2017-06-24] MEDS: POLYVINYL ALCOHOL 15 ML BOTTLE EACHEYE SCH ×4 (08:38→20:43)
[2017-06-24] MEDS: HEPARIN SODIUM, PORCINE 5000 UNITS/1 ML VIAL SQ SCH ×2 (08:47→20:45)
[2017-06-24] MEDS: ZINC OXIDE 30 GM TUBE TP SCH ×2 (08:47→20:45)
[2017-06-24] MEDS: HYDROGEN PEROXIDE 480 ML BOTTLE TP SCH ×2 (08:47→20:45)
[2017-06-24] MEDS: PANTOPRAZOLE 40 MG/PACK PACK GT SCH ×2 (09:00→20:44)
[2017-06-24 20:00] VITALS: BP 123/80
[2017-06-24] MEDS: FINASTERIDE (5 MG) 5 MG TABLET GT SCH (20:43)
[2017-06-24] MEDS: DOCUSATE SODIUM LIQ 100 MG/10 ML UDC GT SCH (20:43)
[2017-06-24] MEDS: MULTIVIT, IRON, MIN NO. 8, FA 1 TAB GT SCH (20:44)
[2017-06-24] MEDS: ASCORBIC ACID 500 MG TABLET GT SCH (20:44)
[2017-06-24] MEDS: RENAL NOVASOURCE 1,000 ML BOTTLE GT PRN (20:46)
[2017-06-24] MEDS: SENNOSIDES 8.6 MG TABLET PO SCH (21:46)
[2017-06-25] MEDS: IPRATROPIUM NEB FS 0.5 MG/2.5 ML AMPUL.NEB NEB SCH ×4 (01:26→19:10)
[2017-06-25] MEDS: ALBUTEROL FS 2.5 MG/3 ML VIAL.NEB NEB SCH ×4 (01:26→19:10)
[2017-06-25] MEDS: BACLOFEN (10 MG) 10 MG TABLET GT SCH ×3 (05:25→20:42)
[2017-06-25] MEDS: GLYCOPYRROLATE 1 MG TABLET GT SCH ×4 (05:25→23:30)
[2017-06-25] MEDS: LEVOTHYROXINE SODIUM 125 MCG TABLET GT SCH (05:25)
[2017-06-25] MEDS: ZINC OXIDE 30 GM TUBE TP SCH ×2 (09:00→20:42)
[2017-06-25] MEDS: HYDROGEN PEROXIDE 480 ML BOTTLE TP SCH ×2 (09:00→20:42)
[2017-06-25] MEDS: POLYVINYL ALCOHOL 15 ML BOTTLE EACHEYE SCH ×4 (09:24→20:41)
[2017-06-25] MEDS: ACIDOPHILUS/BULGARICUS 1 EACH TAB.CHEW GT SCH (09:26)
[2017-06-25] MEDS: POTASSIUM CHLORIDE 20 MEQ/15 ML ML GT SCH (09:26)
[2017-06-25] MEDS: AMIODARONE HCL 200 MG TABLET GT SCH (09:26)
[2017-06-25] MEDS: POLYETHYLENE GLYCOL 3350 17 GM POWD.PACK GT SCH (09:26)
[2017-06-25] MEDS: HEPARIN SODIUM, PORCINE 5000 UNITS/1 ML VIAL SQ SCH ×2 (09:29→20:42)
[2017-06-25 12:58] VITALS: BP 101/60
--- NOTE | 2017-06-25 17:40 | NUR ---
Pt's Protonix not covered by the insurance. Notified Dr. Reeder and received order to give Omeprazole 20 mg capsule via GT once daily per pharmacy recommendation.
--- NOTE | 2017-06-25 18:12 | NUR ---
No adverse reaction to flu vaccine noted. Addendum: 06/26/17 at 1930 by NOAH OGDEN RN ERROR IN CHARTING
[2017-06-25] MEDS: FINASTERIDE (5 MG) 5 MG TABLET GT SCH (20:41)
[2017-06-25] MEDS: DOCUSATE SODIUM LIQ 100 MG/10 ML UDC GT SCH (20:41)
[2017-06-25] MEDS: ASCORBIC ACID 500 MG TABLET GT SCH (20:42)
[2017-06-25] MEDS: MULTIVIT, IRON, MIN NO. 8, FA 1 TAB GT SCH (20:42)
[2017-06-25] MEDS: SENNOSIDES 8.6 MG TABLET PO SCH (21:39)
[2017-06-25] MEDS: RENAL NOVASOURCE 1,000 ML BOTTLE GT PRN (23:30)
[2017-06-26] MEDS: IPRATROPIUM NEB FS 0.5 MG/2.5 ML AMPUL.NEB NEB SCH ×4 (01:30→19:10)
[2017-06-26] MEDS: ALBUTEROL FS 2.5 MG/3 ML VIAL.NEB NEB SCH ×4 (01:30→19:10)
[2017-06-26] MEDS: LEVOTHYROXINE SODIUM 125 MCG TABLET GT SCH (05:24)
[2017-06-26] MEDS: GLYCOPYRROLATE 1 MG TABLET GT SCH ×4 (05:24→23:42)
[2017-06-26] MEDS: BACLOFEN (10 MG) 10 MG TABLET GT SCH ×3 (05:24→20:25)
[2017-06-26 08:10] VITALS: BP 126/81
[2017-06-26] MEDS: POLYVINYL ALCOHOL 15 ML BOTTLE EACHEYE SCH ×4 (09:01→20:25)
[2017-06-26] MEDS: ACIDOPHILUS/BULGARICUS 1 EACH TAB.CHEW GT SCH (09:02)
[2017-06-26] MEDS: AMIODARONE HCL 200 MG TABLET GT SCH (09:02)
[2017-06-26] MEDS: POLYETHYLENE GLYCOL 3350 17 GM POWD.PACK GT SCH (09:03)
[2017-06-26] MEDS: POTASSIUM CHLORIDE 20 MEQ/15 ML ML GT SCH (09:04)
[2017-06-26] MEDS: OMEPRAZOLE 10 MG CAPSULE.DR GT SCH (09:06)
[2017-06-26] MEDS: HEPARIN SODIUM, PORCINE 5000 UNITS/1 ML VIAL SQ SCH ×2 (09:07→20:25)
[2017-06-26] MEDS: ZINC OXIDE 30 GM TUBE TP SCH ×2 (09:09→20:25)
[2017-06-26] MEDS: HYDROGEN PEROXIDE 480 ML BOTTLE TP SCH ×2 (10:10→20:25)
--- NOTE | 2017-06-26 10:33 | NUR ---
Resident's had requested for resident to get his hair cut by hairdresser. SW was off yesterday and did not receive message until today. Followed up with who stated that the BATCH TESTER was able to cut the resident's hair last night and hairdresser was no longer needed.
[2017-06-26 19:57] VITALS: BP 108/68
[2017-06-26] MEDS: FINASTERIDE (5 MG) 5 MG TABLET GT SCH (20:25)
[2017-06-26] MEDS: MULTIVIT, IRON, MIN NO. 8, FA 1 TAB GT SCH (20:25)
[2017-06-26] MEDS: ASCORBIC ACID 500 MG TABLET GT SCH (20:25)
[2017-06-26] MEDS: DOCUSATE SODIUM LIQ 100 MG/10 ML UDC GT SCH (20:25)
[2017-06-26] MEDS: SENNOSIDES 8.6 MG TABLET PO SCH (22:08)
[2017-06-26] MEDS: RENAL NOVASOURCE 1,000 ML BOTTLE GT PRN (23:51)
[2017-06-27] MEDS: ALBUTEROL FS 2.5 MG/3 ML VIAL.NEB NEB SCH ×4 (01:35→19:45)
[2017-06-27] MEDS: IPRATROPIUM NEB FS 0.5 MG/2.5 ML AMPUL.NEB NEB SCH ×4 (01:35→19:45)
[2017-06-27] MEDS: BACLOFEN (10 MG) 10 MG TABLET GT SCH ×3 (05:19→20:31)
[2017-06-27] MEDS: GLYCOPYRROLATE 1 MG TABLET GT SCH ×4 (05:19→23:24)
[2017-06-27] MEDS: LEVOTHYROXINE SODIUM 125 MCG TABLET GT SCH (05:19)
[2017-06-27 08:12] VITALS: BP 100/59
[2017-06-27] MEDS: HYDROGEN PEROXIDE 480 ML BOTTLE TP SCH ×2 (08:33→20:32)
[2017-06-27] MEDS: ZINC OXIDE 30 GM TUBE TP SCH ×2 (08:34→20:32)
[2017-06-27] MEDS: HEPARIN SODIUM, PORCINE 5000 UNITS/1 ML VIAL SQ SCH ×2 (08:36→20:32)
[2017-06-27] MEDS: POLYVINYL ALCOHOL 15 ML BOTTLE EACHEYE SCH ×4 (08:38→20:31)
[2017-06-27] MEDS: AMIODARONE HCL 200 MG TABLET GT SCH (08:40)
[2017-06-27] MEDS: POTASSIUM CHLORIDE 20 MEQ/15 ML ML GT SCH (08:41)
[2017-06-27] MEDS: POLYETHYLENE GLYCOL 3350 17 GM POWD.PACK GT SCH (08:41)
[2017-06-27] MEDS: ACIDOPHILUS/BULGARICUS 1 EACH TAB.CHEW GT SCH (08:41)
[2017-06-27] MEDS: OMEPRAZOLE 10 MG CAPSULE.DR GT SCH (08:45)
[2017-06-27 20:19] VITALS: BP 118/66
[2017-06-27] MEDS: DOCUSATE SODIUM LIQ 100 MG/10 ML UDC GT SCH (20:31)
[2017-06-27] MEDS: ASCORBIC ACID 500 MG TABLET GT SCH (20:31)
[2017-06-27] MEDS: MULTIVIT, IRON, MIN NO. 8, FA 1 TAB GT SCH (20:31)
[2017-06-27] MEDS: FINASTERIDE (5 MG) 5 MG TABLET GT SCH (20:53)
[2017-06-27] MEDS: SENNOSIDES 8.6 MG TABLET PO SCH (21:43)
[2017-06-28] MEDS: ALBUTEROL FS 2.5 MG/3 ML VIAL.NEB NEB SCH ×4 (01:30→20:16)
[2017-06-28] MEDS: IPRATROPIUM NEB FS 0.5 MG/2.5 ML AMPUL.NEB NEB SCH ×4 (01:30→20:16)
[2017-06-28] MEDS: LEVOTHYROXINE SODIUM 125 MCG TABLET GT SCH (05:06)
[2017-06-28] MEDS: BACLOFEN (10 MG) 10 MG TABLET GT SCH ×3 (05:06→21:01)
[2017-06-28] MEDS: GLYCOPYRROLATE 1 MG TABLET GT SCH ×4 (05:06→23:39)
[2017-06-28] MEDS: RENAL NOVASOURCE 1,000 ML BOTTLE GT PRN (06:45)
[2017-06-28 08:00] VITALS: BP 92/52
[2017-06-28] MEDS: ACIDOPHILUS/BULGARICUS 1 EACH TAB.CHEW GT SCH (09:53)
[2017-06-28] MEDS: POTASSIUM CHLORIDE 20 MEQ/15 ML ML GT SCH (09:53)
[2017-06-28] MEDS: OMEPRAZOLE 10 MG CAPSULE.DR GT SCH (09:53)
[2017-06-28] MEDS: AMIODARONE HCL 200 MG TABLET GT SCH (09:53)
[2017-06-28] MEDS: HYDROGEN PEROXIDE 480 ML BOTTLE TP SCH ×2 (09:53→20:54)
[2017-06-28] MEDS: POLYVINYL ALCOHOL 15 ML BOTTLE EACHEYE SCH ×4 (09:53→20:50)
[2017-06-28] MEDS: ZINC OXIDE 30 GM TUBE TP SCH ×2 (09:53→20:54)
[2017-06-28] MEDS: POLYETHYLENE GLYCOL 3350 17 GM POWD.PACK GT SCH (09:54)
[2017-06-28] MEDS: HEPARIN SODIUM, PORCINE 5000 UNITS/1 ML VIAL SQ SCH ×2 (09:58→20:54)
[2017-06-28] MEDS ORDERED: FLU VACC QS 2017-18(36MOS+)/PF 0.5 ML DISP.SYRIN IM ONE (17:00)
[2017-06-28 20:21] VITALS: BP 104/66
[2017-06-28] MEDS: FINASTERIDE (5 MG) 5 MG TABLET GT SCH (20:50)
[2017-06-28] MEDS: DOCUSATE SODIUM LIQ 100 MG/10 ML UDC GT SCH (20:51)
[2017-06-28] MEDS: MULTIVIT, IRON, MIN NO. 8, FA 1 TAB GT SCH (20:51)
[2017-06-28] MEDS: ASCORBIC ACID 500 MG TABLET GT SCH (20:52)
[2017-06-28] MEDS: SENNOSIDES 8.6 MG TABLET PO SCH (21:02)
[2017-06-28 22:58] VITALS: BP 102/64
[2017-06-29] MEDS: IPRATROPIUM NEB FS 0.5 MG/2.5 ML AMPUL.NEB NEB SCH ×4 (02:10→20:34)
[2017-06-29] MEDS: ALBUTEROL FS 2.5 MG/3 ML VIAL.NEB NEB SCH ×4 (02:10→20:34)
[2017-06-29] MEDS: GLYCOPYRROLATE 1 MG TABLET GT SCH ×3 (05:35→17:26)
[2017-06-29] MEDS: BACLOFEN (10 MG) 10 MG TABLET GT SCH ×3 (05:35→21:43)
[2017-06-29] MEDS: LEVOTHYROXINE SODIUM 125 MCG TABLET GT SCH (05:35)
[2017-06-29 07:59] VITALS: BP 98/61
[2017-06-29] MEDS: POLYVINYL ALCOHOL 15 ML BOTTLE EACHEYE SCH ×4 (09:46→21:43)
[2017-06-29] MEDS: ACIDOPHILUS/BULGARICUS 1 EACH TAB.CHEW GT SCH (09:47)
[2017-06-29] MEDS: POTASSIUM CHLORIDE 20 MEQ/15 ML ML GT SCH (09:47)
[2017-06-29] MEDS: HEPARIN SODIUM, PORCINE 5000 UNITS/1 ML VIAL SQ SCH ×2 (09:47→21:43)
[2017-06-29] MEDS: HYDROGEN PEROXIDE 480 ML BOTTLE TP SCH ×2 (09:47→21:44)
[2017-06-29] MEDS: AMIODARONE HCL 200 MG TABLET GT SCH (09:47)
[2017-06-29] MEDS: POLYETHYLENE GLYCOL 3350 17 GM POWD.PACK GT SCH (09:47)
[2017-06-29] MEDS: OMEPRAZOLE 10 MG CAPSULE.DR GT SCH (09:47)
[2017-06-29] MEDS: ZINC OXIDE 30 GM TUBE TP SCH ×2 (09:47→21:44)
[2017-06-29] MEDS: FINASTERIDE (5 MG) 5 MG TABLET GT SCH (20:00)
[2017-06-29] MEDS: ASCORBIC ACID 500 MG TABLET GT SCH (21:43)
[2017-06-29] MEDS: MULTIVIT, IRON, MIN NO. 8, FA 1 TAB GT SCH (21:43)
[2017-06-29] MEDS: DOCUSATE SODIUM LIQ 100 MG/10 ML UDC GT SCH (21:43)
[2017-06-29] MEDS: SENNOSIDES 8.6 MG TABLET PO SCH (21:44)
[2017-06-29 23:28] VITALS: BP 109/61
[2017-06-30] MEDS: GLYCOPYRROLATE 1 MG TABLET GT SCH ×4 (00:46→17:31)
[2017-06-30] MEDS: ALBUTEROL FS 2.5 MG/3 ML VIAL.NEB NEB SCH ×4 (01:58→19:07)
[2017-06-30] MEDS: IPRATROPIUM NEB FS 0.5 MG/2.5 ML AMPUL.NEB NEB SCH ×4 (01:58→19:07)
[2017-06-30] MEDS: LEVOTHYROXINE SODIUM 125 MCG TABLET GT SCH (05:22)
[2017-06-30] MEDS: BACLOFEN (10 MG) 10 MG TABLET GT SCH ×3 (05:22→21:00)
[2017-06-30 07:51] VITALS: BP 113/76
[2017-06-30] MEDS: OMEPRAZOLE 10 MG CAPSULE.DR GT SCH (09:30)
[2017-06-30] MEDS: POLYETHYLENE GLYCOL 3350 17 GM POWD.PACK GT SCH (09:30)
[2017-06-30] MEDS: HEPARIN SODIUM, PORCINE 5000 UNITS/1 ML VIAL SQ SCH ×2 (09:30→21:00)
[2017-06-30] MEDS: ZINC OXIDE 30 GM TUBE TP SCH ×2 (09:30→21:00)
[2017-06-30] MEDS: AMIODARONE HCL 200 MG TABLET GT SCH (09:30)
[2017-06-30] MEDS: POLYVINYL ALCOHOL 15 ML BOTTLE EACHEYE SCH ×4 (09:30→21:00)
[2017-06-30] MEDS: ACIDOPHILUS/BULGARICUS 1 EACH TAB.CHEW GT SCH (09:30)
[2017-06-30] MEDS: POTASSIUM CHLORIDE 20 MEQ/15 ML ML GT SCH (09:30)
[2017-06-30] MEDS: HYDROGEN PEROXIDE 480 ML BOTTLE TP SCH ×2 (09:30→21:00)
--- NOTE | 2017-06-30 12:10 | NUR ---
Seen and examined by ADRY RamanO given at this time.
[2017-06-30] MEDS: FINASTERIDE (5 MG) 5 MG TABLET GT SCH (20:00)
[2017-06-30 20:12] VITALS: BP 106/54
[2017-06-30] MEDS: DOCUSATE SODIUM LIQ 100 MG/10 ML UDC GT SCH (21:00)
[2017-06-30] MEDS: ASCORBIC ACID 500 MG TABLET GT SCH (21:00)
[2017-06-30] MEDS: MULTIVIT, IRON, MIN NO. 8, FA 1 TAB GT SCH (21:00)
[2017-06-30] MEDS: SENNOSIDES 8.6 MG TABLET PO SCH (22:27)
[2017-07-01] MEDS: GLYCOPYRROLATE 1 MG TABLET GT SCH ×4 (00:22→17:17)
[2017-07-01] MEDS: IPRATROPIUM NEB FS 0.5 MG/2.5 ML AMPUL.NEB NEB SCH ×4 (02:29→19:19)
[2017-07-01] MEDS: ALBUTEROL FS 2.5 MG/3 ML VIAL.NEB NEB SCH ×4 (02:29→19:19)
[2017-07-01] MEDS: BACLOFEN (10 MG) 10 MG TABLET GT SCH ×3 (05:00→20:48)
[2017-07-01] MEDS: LEVOTHYROXINE SODIUM 125 MCG TABLET GT SCH (06:13)
[2017-07-01 08:36] VITALS: BP 109/66
[2017-07-01] MEDS: POLYVINYL ALCOHOL 15 ML BOTTLE EACHEYE SCH ×4 (08:48→20:47)
[2017-07-01] MEDS: AMIODARONE HCL 200 MG TABLET GT SCH (08:48)
[2017-07-01] MEDS: ACIDOPHILUS/BULGARICUS 1 EACH TAB.CHEW GT SCH (08:48)
[2017-07-01] MEDS: POLYETHYLENE GLYCOL 3350 17 GM POWD.PACK GT SCH (08:48)
[2017-07-01] MEDS: POTASSIUM CHLORIDE 20 MEQ/15 ML ML GT SCH (08:49)
[2017-07-01] MEDS: OMEPRAZOLE 10 MG CAPSULE.DR GT SCH (08:49)
[2017-07-01] MEDS: HEPARIN SODIUM, PORCINE 5000 UNITS/1 ML VIAL SQ SCH ×2 (08:57→20:53)
[2017-07-01] MEDS: ZINC OXIDE 30 GM TUBE TP SCH ×2 (09:00→20:53)
[2017-07-01] MEDS: HYDROGEN PEROXIDE 480 ML BOTTLE TP SCH ×2 (09:00→20:53)
[2017-07-01] MEDS: RENAL NOVASOURCE 1,000 ML BOTTLE GT PRN (17:48)
[2017-07-01 20:07] VITALS: BP 129/78
[2017-07-01] MEDS: FINASTERIDE (5 MG) 5 MG TABLET GT SCH (20:47)
[2017-07-01] MEDS: DOCUSATE SODIUM LIQ 100 MG/10 ML UDC GT SCH (20:48)
[2017-07-01] MEDS: MULTIVIT, IRON, MIN NO. 8, FA 1 TAB GT SCH (20:49)
[2017-07-01] MEDS: ASCORBIC ACID 500 MG TABLET GT SCH (20:49)
[2017-07-01] MEDS: SENNOSIDES 8.6 MG TABLET PO SCH (21:29)
[2017-07-02] MEDS: GLYCOPYRROLATE 1 MG TABLET GT SCH ×4 (00:03→18:08)
[2017-07-02] MEDS: ALBUTEROL FS 2.5 MG/3 ML VIAL.NEB NEB SCH ×4 (00:59→19:30)
[2017-07-02] MEDS: IPRATROPIUM NEB FS 0.5 MG/2.5 ML AMPUL.NEB NEB SCH ×4 (00:59→20:40)
[2017-07-02] MEDS: LEVOTHYROXINE SODIUM 125 MCG TABLET GT SCH (05:39)
[2017-07-02] MEDS: BACLOFEN (10 MG) 10 MG TABLET GT SCH ×3 (05:39→20:44)
[2017-07-02 07:56] VITALS: BP 101/65
[2017-07-02] MEDS: POLYVINYL ALCOHOL 15 ML BOTTLE EACHEYE SCH ×4 (09:00→20:43)
[2017-07-02] MEDS: AMIODARONE HCL 200 MG TABLET GT SCH (09:00)
[2017-07-02] MEDS: HYDROGEN PEROXIDE 480 ML BOTTLE TP SCH ×2 (09:00→20:47)
[2017-07-02] MEDS: ACIDOPHILUS/BULGARICUS 1 EACH TAB.CHEW GT SCH (09:00)
[2017-07-02] MEDS: OMEPRAZOLE 10 MG CAPSULE.DR GT SCH (09:00)
[2017-07-02] MEDS: ZINC OXIDE 30 GM TUBE TP SCH ×2 (09:00→20:47)
[2017-07-02] MEDS: HEPARIN SODIUM, PORCINE 5000 UNITS/1 ML VIAL SQ SCH ×2 (09:00→20:47)
[2017-07-02] MEDS: POLYETHYLENE GLYCOL 3350 17 GM POWD.PACK GT SCH (09:00)
[2017-07-02] MEDS: POTASSIUM CHLORIDE 20 MEQ/15 ML ML GT SCH (09:00)
--- NOTE | 2017-07-02 13:35 | NUR ---
SEEN AND EXAMINED BY CARMELITA THURSTON WITH NO NEW ORDERS AT THIS TIME.
[2017-07-02 19:47] VITALS: BP 109/62
[2017-07-02] MEDS: MULTIVIT, IRON, MIN NO. 8, FA 1 TAB GT SCH (20:41)
[2017-07-02] MEDS: FINASTERIDE (5 MG) 5 MG TABLET GT SCH (20:43)
[2017-07-02] MEDS: DOCUSATE SODIUM LIQ 100 MG/10 ML UDC GT SCH (20:44)
[2017-07-02] MEDS: ASCORBIC ACID 500 MG TABLET GT SCH (20:44)
[2017-07-02] MEDS: SENNOSIDES 8.6 MG TABLET PO SCH (21:25)
[2017-07-03] MEDS: GLYCOPYRROLATE 1 MG TABLET GT SCH ×4 (00:08→18:44)
[2017-07-03] MEDS: RENAL NOVASOURCE 1,000 ML BOTTLE GT PRN (00:08)
[2017-07-03] MEDS: ALBUTEROL FS 2.5 MG/3 ML VIAL.NEB NEB SCH ×4 (02:12→19:56)
[2017-07-03] MEDS: IPRATROPIUM NEB FS 0.5 MG/2.5 ML AMPUL.NEB NEB SCH ×4 (02:12→19:56)
[2017-07-03] MEDS: LEVOTHYROXINE SODIUM 125 MCG TABLET GT SCH (05:06)
[2017-07-03] MEDS: BACLOFEN (10 MG) 10 MG TABLET GT SCH ×3 (05:07→20:43)
[2017-07-03] MEDS: AMIODARONE HCL 200 MG TABLET GT SCH (08:26)
[2017-07-03] MEDS: POLYVINYL ALCOHOL 15 ML BOTTLE EACHEYE SCH ×4 (08:26→20:42)
[2017-07-03] MEDS: POTASSIUM CHLORIDE 20 MEQ/15 ML ML GT SCH (08:27)
[2017-07-03] MEDS: OMEPRAZOLE 10 MG CAPSULE.DR GT SCH (08:27)
[2017-07-03] MEDS: ACIDOPHILUS/BULGARICUS 1 EACH TAB.CHEW GT SCH (08:27)
[2017-07-03] MEDS: HEPARIN SODIUM, PORCINE 5000 UNITS/1 ML VIAL SQ SCH ×2 (08:27→20:45)
[2017-07-03] MEDS: POLYETHYLENE GLYCOL 3350 17 GM POWD.PACK GT SCH (08:27)
[2017-07-03] MEDS: ZINC OXIDE 30 GM TUBE TP SCH ×2 (09:44→20:45)
[2017-07-03] MEDS: HYDROGEN PEROXIDE 480 ML BOTTLE TP SCH ×2 (09:44→20:45)
[2017-07-03 13:05] VITALS: BP 113/56
[2017-07-03 20:09] VITALS: BP 103/75
[2017-07-03] MEDS: MULTIVIT, IRON, MIN NO. 8, FA 1 TAB GT SCH (20:41)
[2017-07-03] MEDS: FINASTERIDE (5 MG) 5 MG TABLET GT SCH (20:42)
[2017-07-03] MEDS: DOCUSATE SODIUM LIQ 100 MG/10 ML UDC GT SCH (20:43)
[2017-07-03] MEDS: ASCORBIC ACID 500 MG TABLET GT SCH (20:43)
--- NOTE | 2017-07-03 21:29 | NUR ---
pt is noted to have a low grade fever of 100.3 in the start of the shift, is in the bed side aware of the situation, asking if pt can get a tylenol 650mg, instead of a cooling measure, meds given and continue to monitor pts for elevated temp.
[2017-07-03] MEDS: SENNOSIDES 8.6 MG TABLET PO SCH (22:21)
[2017-07-04] MEDS: GLYCOPYRROLATE 1 MG TABLET GT SCH ×5 (00:26→23:32)
[2017-07-04] MEDS: RENAL NOVASOURCE 1,000 ML BOTTLE GT PRN (01:21)
[2017-07-04] MEDS: ALBUTEROL FS 2.5 MG/3 ML VIAL.NEB NEB SCH ×4 (02:07→20:09)
[2017-07-04] MEDS: IPRATROPIUM NEB FS 0.5 MG/2.5 ML AMPUL.NEB NEB SCH ×4 (02:07→20:09)
[2017-07-04] MEDS: BACLOFEN (10 MG) 10 MG TABLET GT SCH ×3 (05:00→20:10)
[2017-07-04] MEDS: LEVOTHYROXINE SODIUM 125 MCG TABLET GT SCH (06:14)
[2017-07-04] MEDS: AMIODARONE HCL 200 MG TABLET GT SCH (08:37)
[2017-07-04] MEDS: POLYVINYL ALCOHOL 15 ML BOTTLE EACHEYE SCH ×4 (08:37→20:10)
[2017-07-04] MEDS: ACIDOPHILUS/BULGARICUS 1 EACH TAB.CHEW GT SCH (08:37)
[2017-07-04] MEDS: POLYETHYLENE GLYCOL 3350 17 GM POWD.PACK GT SCH (08:37)
[2017-07-04] MEDS: OMEPRAZOLE 10 MG CAPSULE.DR GT SCH (08:38)
[2017-07-04] MEDS: HYDROGEN PEROXIDE 480 ML BOTTLE TP SCH ×2 (08:38→20:11)
[2017-07-04] MEDS: POTASSIUM CHLORIDE 20 MEQ/15 ML ML GT SCH (08:38)
[2017-07-04] MEDS: HEPARIN SODIUM, PORCINE 5000 UNITS/1 ML VIAL SQ SCH ×2 (08:38→20:11)
[2017-07-04] MEDS: ZINC OXIDE 30 GM TUBE TP SCH ×2 (08:39→20:11)
--- NOTE | 2017-07-04 10:00 | NUR ---
RN Notes: Dr David informed of last night's temperature of 100F. ordered CBC. Dr. David also informed of today's blood pressure of 86/49. ordered to infuse 500 ml of 0.9% NaCl,bolus. Then continue infusing at 100m/hour for a total of 1500 ml.
[2017-07-04] MEDS ORDERED: IV NS 0.9% 500 ML IV ONE (12:00)
--- NOTE | 2017-07-04 12:50 | NUR ---
RN NOTES: ATTEMPTED TO START IV ACCESS TO INFUSE FLUIDS. UNABLE TO START. MECHANICAL DEVELOPER PROVER, HAILEY, ABLE TO START 18 GAUGE PERIPHERAL IV ON RIGHT LOWER EXTREMITY PER ORDERS.
[2017-07-04] MEDS ORDERED: IV NS 0.9% 1,000 ML IV SCH (13:00)
[2017-07-04 13:10] VITALS: BP 124/63
--- NOTE | 2017-07-04 13:10 | NUR ---
RN Notes: Patient's BP reassessed and found to be 124/63.
[2017-07-04 15:21] VITALS: BP 128/62
--- NOTE | 2017-07-04 15:41 | NUR ---
Seen and examined by BISI Arevalo given.
[2017-07-04 15:59] LABS: BASOPHILS % (AUTO) 0.2 % (0.0-2.0); EOSINOPHILS # (AUTO) 0.1 /CMM (0.0-0.7); EOSINOPHILS % (AUTO) 0.7 % (0.0-6.0); HEMATOCRIT 30 % (39-51); HEMOGLOBIN 9.8 g/dL (13.5-17.5); LYMPHOCYTES # (AUTO) 1.6 /CMM (0.8-4.8); LYMPHOCYTES % (AUTO) 9.2 % (20.0-44.0); MEAN CORPUSCULAR HEMOGLOBIN 24 PG (26.0-33.0); MEAN CORPUSCULAR HGB CONC 32 g/dl (31.0-36.0); MEAN CORPUSCULAR VOLUME 74 fL (80-96); MONOCYTES # (AUTO) 1.6 /CMM (0.1-1.30); MONOCYTES % (AUTO) 8.8 % (2.0-12.0); NEUTROPHILS # (AUTO) 14.5 /CMM (1.8-8.9); NEUTROPHILS % (AUTO) 81.1 % (43.0-81.0); PLATELET COUNT (AUTO) 352 /CMM (150-450); RDW COEFFICIENT OF VARIATION 18.4 (11.5-15.0); RED BLOOD CELL COUNT(AUTO) 4.09 MIL/uL (4.5-6.0); WHITE BLOOD COUNT (AUTO) 17.8 K/uL (4.3-11.0)
--- NOTE | 2017-07-04 17:31 | NUR ---
RN notes: Reported recent wbc count of 17.[address] ordered Meropenem 500 mg Q12 hours IV, Vancomycin per pharmacy to dose, UA and C&S, Chest Xray, and Blood culture x2. Orders faxed to pharmacy. Family notified.
[2017-07-04] MEDS: ASCORBIC ACID 500 MG TABLET GT SCH (20:10)
[2017-07-04] MEDS: FINASTERIDE (5 MG) 5 MG TABLET GT SCH (20:10)
[2017-07-04] MEDS: MULTIVIT, IRON, MIN NO. 8, FA 1 TAB GT SCH (20:10)
[2017-07-04] MEDS: DOCUSATE SODIUM LIQ 100 MG/10 ML UDC GT SCH (20:10)
[2017-07-04] MEDS: SENNOSIDES 8.6 MG TABLET PO SCH (21:06)
[2017-07-04] MEDS: MEROPENEM 500 MG in IV NS 0.9% 50 ML IV SCH (21:08)
[2017-07-04] MEDS: VANCOMYCIN 1 GM in IV D5W 250ml IV SCH (21:09)
[2017-07-05] MEDS: ALBUTEROL FS 2.5 MG/3 ML VIAL.NEB NEB SCH ×4 (01:38→19:37)
[2017-07-05] MEDS: IPRATROPIUM NEB FS 0.5 MG/2.5 ML AMPUL.NEB NEB SCH ×4 (01:38→19:37)
[2017-07-05 05:09] LABS: APPEARANCE,URINE CLEAR (CLEAR); BILIRUBIN,URINE NEGATIVE (NEGATIVE); BLOOD, URINE NEGATIVE Ery/uL (NEGATIVE); COLOR,URINE YELLOW (YELLOW); KETONES,URINE NEGATIVE (NEGATIVE); LEUKOCYTE ESTERASE ,URINE 2+ (NEGATIVE); NITRITE, URINE NEGATIVE (NEGATIVE); PH,URINE 8.5 (5.0-8.0); PROTEIN,URINE NEGATIVE (NEGATIVE); UGLUCOSE NEGATIVE (NEGATIVE); UROBILINOGEN,URINE 0.2 EU/dL (0.2)
[2017-07-05 05:16] LABS: BACTERIA,URINE Few /HPF (None Seen); RBC,URINE 0-2 /HPF (0-2); SQUAMOUS EPITHELIAL CELL,UR Rare /HPF (None Seen)
[2017-07-05 05:17] LABS: TRIPLE PHOSPHATE CRYSTAL,UR Many /HPF (None Seen)
[2017-07-05] MEDS: BACLOFEN (10 MG) 10 MG TABLET GT SCH ×3 (05:21→21:01)
[2017-07-05] MEDS: LEVOTHYROXINE SODIUM 125 MCG TABLET GT SCH (05:21)
[2017-07-05] MEDS: GLYCOPYRROLATE 1 MG TABLET GT SCH ×3 (05:21→18:26)
--- NOTE | 2017-07-05 06:49 | NUR ---
Started Vancomycin 750mg q 24hrs and Merrem 500mg q 12 hrs last night for increase WBC,no adverse reaction noted.Afebrile.Will continue to monitor.
[2017-07-05 07:53] VITALS: BP 114/46
[2017-07-05] MEDS: ZINC OXIDE 30 GM TUBE TP SCH ×2 (09:00→21:08)
[2017-07-05] MEDS: HYDROGEN PEROXIDE 480 ML BOTTLE TP SCH ×2 (09:00→21:08)
[2017-07-05] MEDS: MEROPENEM 500 MG in IV NS 0.9% 50 ML IV SCH ×2 (09:28→21:06)
[2017-07-05] MEDS: POTASSIUM CHLORIDE 20 MEQ/15 ML ML GT SCH (09:59)
[2017-07-05] MEDS: AMIODARONE HCL 200 MG TABLET GT SCH (09:59)
[2017-07-05] MEDS: POLYVINYL ALCOHOL 15 ML BOTTLE EACHEYE SCH ×4 (09:59→21:00)
[2017-07-05] MEDS: POLYETHYLENE GLYCOL 3350 17 GM POWD.PACK GT SCH (09:59)
[2017-07-05] MEDS: ACIDOPHILUS/BULGARICUS 1 EACH TAB.CHEW GT SCH (09:59)
[2017-07-05] MEDS: OMEPRAZOLE 10 MG CAPSULE.DR GT SCH (09:59)
[2017-07-05] MEDS: HEPARIN SODIUM, PORCINE 5000 UNITS/1 ML VIAL SQ SCH ×2 (10:00→21:03)
[2017-07-05] MEDS: FINASTERIDE (5 MG) 5 MG TABLET GT SCH (20:00)
[2017-07-05 20:02] VITALS: BP 105/58
[2017-07-05] MEDS: DOCUSATE SODIUM LIQ 100 MG/10 ML UDC GT SCH (21:00)
[2017-07-05] MEDS: MULTIVIT, IRON, MIN NO. 8, FA 1 TAB GT SCH (21:01)
[2017-07-05] MEDS: ASCORBIC ACID 500 MG TABLET GT SCH (21:01)
[2017-07-05] MEDS: VANCOMYCIN 1 GM in IV D5W 250ml IV SCH (21:06)
[2017-07-05] MEDS: SENNOSIDES 8.6 MG TABLET PO SCH (21:08)
[2017-07-06] MEDS: GLYCOPYRROLATE 1 MG TABLET GT SCH ×3 (00:25→18:02)
[2017-07-06] MEDS: IPRATROPIUM NEB FS 0.5 MG/2.5 ML AMPUL.NEB NEB SCH ×3 (01:22→20:15)
[2017-07-06] MEDS: ALBUTEROL FS 2.5 MG/3 ML VIAL.NEB NEB SCH ×3 (01:22→20:15)
[2017-07-06 06:59] LABS: BASOPHILS % (AUTO) 0.1 % (0.0-2.0); EOSINOPHILS # (AUTO) 0.3 /CMM (0.0-0.7); EOSINOPHILS % (AUTO) 2.2 % (0.0-6.0); HEMATOCRIT 33 % (39-51); HEMOGLOBIN 10.6 g/dL (13.5-17.5); LYMPHOCYTES % (AUTO) 15.1 % (20.0-44.0); MEAN CORPUSCULAR HEMOGLOBIN 24 PG (26.0-33.0); MEAN CORPUSCULAR HGB CONC 33 g/dl (31.0-36.0); MEAN CORPUSCULAR VOLUME 75 fL (80-96); MONOCYTES # (AUTO) 1.1 /CMM (0.1-1.30); MONOCYTES % (AUTO) 7.9 % (2.0-12.0); NEUTROPHILS # (AUTO) 9.9 /CMM (1.8-8.9); NEUTROPHILS % (AUTO) 74.7 % (43.0-81.0); PLATELET COUNT (AUTO) 386 /CMM (150-450); RDW COEFFICIENT OF VARIATION 17.7 (11.5-15.0); RED BLOOD CELL COUNT(AUTO) 4.37 MIL/uL (4.5-6.0); WHITE BLOOD COUNT (AUTO) 13.3 K/uL (4.3-11.0)
[2017-07-06 07:11] VITALS: BP 113/70
[2017-07-06] MEDS ORDERED: TUBERCULIN,PURIF.PROT.DERIV. 5 TU/0.1 ML VIAL ID SCH (09:00)
--- NOTE | 2017-07-06 09:00 | NUR ---
Seen and examined by Dr. Paniagua, new order given.
[2017-07-06] MEDS: MEROPENEM 500 MG in IV NS 0.9% 50 ML IV SCH ×2 (09:30→21:08)
[2017-07-06] MEDS: AMIODARONE HCL 200 MG TABLET GT SCH (09:44)
[2017-07-06] MEDS: POLYVINYL ALCOHOL 15 ML BOTTLE EACHEYE SCH ×4 (09:44→20:02)
[2017-07-06] MEDS: ACIDOPHILUS/BULGARICUS 1 EACH TAB.CHEW GT SCH (09:46)
[2017-07-06] MEDS: POTASSIUM CHLORIDE 20 MEQ/15 ML ML GT SCH (09:46)
[2017-07-06] MEDS: POLYETHYLENE GLYCOL 3350 17 GM POWD.PACK GT SCH (09:46)
[2017-07-06] MEDS: OMEPRAZOLE 10 MG CAPSULE.DR GT SCH (09:47)
[2017-07-06] MEDS: HEPARIN SODIUM, PORCINE 5000 UNITS/1 ML VIAL SQ SCH ×2 (09:47→20:03)
[2017-07-06] MEDS: ZINC OXIDE 30 GM TUBE TP SCH ×2 (09:48→20:04)
[2017-07-06] MEDS: HYDROGEN PEROXIDE 480 ML BOTTLE TP SCH ×2 (10:15→20:04)
[2017-07-06 10:34] LABS: ALBUMIN 2.8 g/dL (3.4-5.0); BILIRUBIN,TOTAL 0.3 mg/dL (0.2-1.0); CALCIUM, SERUM 9.2 mg/dL (8.5-10.1); CREATININE 1.4 mg/dL (0.6-1.3); POTASSIUM 4.2 mmol/L (3.5-5.1); TOTAL PROTEIN, SERUM 7.6 g/dL (6.4-8.2)
--- NOTE | 2017-07-06 10:57 | NUR ---
Resident's came to the neonatal social worker's office. She wanted assistance in completing an insurance form for the resident. SW assisted her in filling out the form and indicated that this form requires her signature, not the doctor's signature. Provided medication list as required by insurance form. She stated that last year the doctor filled out a form for her. SW looked through her files and obtained a copy from the previous year. generator worker informed her that the second portion of the form is missing. She stated if she could have a copy and she will just re-send it to the insurance. SW notified her that doctor's signature will not be updated but stated that information is the same and she will re-send the form or ask the insurance to send a new one for the doctor to complete. She also talked about recent incident that occurred in the icu, in which she became angry that the tv volume was not fixed. She stated that CNO spoke to her yesterday. She apologized for her behavior but at the same time stated that she was frustrated because the volume had not been fixed and felt the staff was not doing their job to address the matter. She stated that she does not have outbursts like this all the time (maybe 1-2x/year) and expressed her feelings to neonatal social worker. left the neonatal social worker's office in a pleasant mood and indicated no current problems.
--- NOTE | 2017-07-06 11:24 | NUR ---
returned to the criminal justice social worker's office. She stated if Dr. David can please re-sign the form from last year so that signature is updated. linen worker endorsed to charge nurse for Dr. David to provide signature. SW will follow up.
[2017-07-06] MEDS: BACLOFEN (10 MG) 10 MG TABLET GT SCH ×2 (13:00→20:02)
[2017-07-06 13:20] LABS: EOSINOPHILS % (MANUAL) 1 % (0-4); LYMPHOCYTES % (MANUAL) 12 % (16-48); MONOCYTES % (MANUAL) 11 % (0-11.0); NEUTROPHILS % (MANUAL) 76 (42-76)
[2017-07-06] MEDS: RENAL NOVASOURCE 1,000 ML BOTTLE GT PRN (15:15)
--- NOTE | 2017-07-06 18:49 | NUR ---
Clarified with CARMELITA Ricks, ID stop date for IV ATB Vancomycin and Merrem, stated to be given total of 10 days.
[2017-07-06 19:23] VITALS: BP 97/63
[2017-07-06] MEDS: MULTIVIT, IRON, MIN NO. 8, FA 1 TAB GT SCH (20:02)
[2017-07-06] MEDS: ASCORBIC ACID 500 MG TABLET GT SCH (20:02)
[2017-07-06] MEDS: FINASTERIDE (5 MG) 5 MG TABLET GT SCH (20:02)
[2017-07-06] MEDS: DOCUSATE SODIUM LIQ 100 MG/10 ML UDC GT SCH (20:02)
[2017-07-06] MEDS: VANCOMYCIN 1 GM in IV D5W 250ml IV SCH (21:08)
[2017-07-06 21:21] LABS: CREATININE 1.4 mg/dL (0.6-1.3)
[2017-07-06] MEDS: SENNOSIDES 8.6 MG TABLET PO SCH (21:51)
[2017-07-07] MEDS: GLYCOPYRROLATE 1 MG TABLET GT SCH ×5 (00:14→23:40)
[2017-07-07 00:42] VITALS: BP 97/63
[2017-07-07] MEDS: IPRATROPIUM NEB FS 0.5 MG/2.5 ML AMPUL.NEB NEB SCH ×4 (00:59→19:42)
[2017-07-07] MEDS: ALBUTEROL FS 2.5 MG/3 ML VIAL.NEB NEB SCH ×4 (00:59→19:42)
[2017-07-07] MEDS: BACLOFEN (10 MG) 10 MG TABLET GT SCH ×3 (04:49→21:00)
[2017-07-07] MEDS: LEVOTHYROXINE SODIUM 125 MCG TABLET GT SCH ×2 (06:00→06:18)
--- NOTE | 2017-07-07 06:47 | NUR ---
Pt vancomycin trough is 9mg/dl reported to IV pharmacist Pedro and order to change dose to 1 gm q 24 hours will carry order.
[2017-07-07 08:06] VITALS: BP 103/61
[2017-07-07] MEDS: POLYVINYL ALCOHOL 15 ML BOTTLE EACHEYE SCH ×4 (09:01→21:00)
[2017-07-07] MEDS: OMEPRAZOLE 10 MG CAPSULE.DR GT SCH (09:01)
[2017-07-07] MEDS: POTASSIUM CHLORIDE 20 MEQ/15 ML ML GT SCH (09:01)
[2017-07-07] MEDS: POLYETHYLENE GLYCOL 3350 17 GM POWD.PACK GT SCH (09:01)
[2017-07-07] MEDS: ACIDOPHILUS/BULGARICUS 1 EACH TAB.CHEW GT SCH (09:01)
[2017-07-07] MEDS: AMIODARONE HCL 200 MG TABLET GT SCH (09:01)
[2017-07-07] MEDS: HEPARIN SODIUM, PORCINE 5000 UNITS/1 ML VIAL SQ SCH ×2 (09:02→21:00)
[2017-07-07] MEDS: ZINC OXIDE 30 GM TUBE TP SCH ×2 (09:02→21:00)
[2017-07-07] MEDS: HYDROGEN PEROXIDE 480 ML BOTTLE TP SCH ×2 (09:26→21:00)
[2017-07-07] MEDS: MEROPENEM 500 MG in IV NS 0.9% 50 ML IV SCH ×2 (09:30→21:00)
[2017-07-07] MEDS: RENAL NOVASOURCE 1,000 ML BOTTLE GT PRN (18:18)
[2017-07-07 19:51] VITALS: BP 104/62
[2017-07-07] MEDS: FINASTERIDE (5 MG) 5 MG TABLET GT SCH (20:00)
[2017-07-07] MEDS: DOCUSATE SODIUM LIQ 100 MG/10 ML UDC GT SCH (21:00)
[2017-07-07] MEDS: MULTIVIT, IRON, MIN NO. 8, FA 1 TAB GT SCH (21:00)
[2017-07-07] MEDS: ASCORBIC ACID 500 MG TABLET GT SCH (21:00)
[2017-07-07] MEDS: VANCOMYCIN 1 GM in IV D5W 250ml IV SCH (21:00)
[2017-07-07] MEDS: SENNOSIDES 8.6 MG TABLET PO SCH (22:12)
[2017-07-08] MEDS: IPRATROPIUM NEB FS 0.5 MG/2.5 ML AMPUL.NEB NEB SCH ×4 (01:04→19:43)
[2017-07-08] MEDS: ALBUTEROL FS 2.5 MG/3 ML VIAL.NEB NEB SCH ×4 (01:04→19:43)
[2017-07-08] MEDS: GLYCOPYRROLATE 1 MG TABLET GT SCH ×3 (05:06→16:56)
[2017-07-08] MEDS: BACLOFEN (10 MG) 10 MG TABLET GT SCH ×3 (05:06→21:05)
[2017-07-08] MEDS: LEVOTHYROXINE SODIUM 125 MCG TABLET GT SCH (05:07)
[2017-07-08 07:47] VITALS: BP 103/68
[2017-07-08] MEDS: MEROPENEM 500 MG in IV NS 0.9% 50 ML IV SCH ×2 (08:21→21:30)
[2017-07-08] MEDS: POLYVINYL ALCOHOL 15 ML BOTTLE EACHEYE SCH ×4 (09:47→21:04)
[2017-07-08] MEDS: POLYETHYLENE GLYCOL 3350 17 GM POWD.PACK GT SCH (09:48)
[2017-07-08] MEDS: POTASSIUM CHLORIDE 20 MEQ/15 ML ML GT SCH (09:48)
[2017-07-08] MEDS: AMIODARONE HCL 200 MG TABLET GT SCH (09:48)
[2017-07-08] MEDS: ACIDOPHILUS/BULGARICUS 1 EACH TAB.CHEW GT SCH (09:48)
[2017-07-08] MEDS: OMEPRAZOLE 10 MG CAPSULE.DR GT SCH (09:48)
[2017-07-08] MEDS: HEPARIN SODIUM, PORCINE 5000 UNITS/1 ML VIAL SQ SCH ×2 (09:49→21:06)
[2017-07-08] MEDS: HYDROGEN PEROXIDE 480 ML BOTTLE TP SCH ×2 (09:49→21:06)
[2017-07-08] MEDS: ZINC OXIDE 30 GM TUBE TP SCH ×2 (09:49→21:06)
[2017-07-08] MEDS: RENAL NOVASOURCE 1,000 ML BOTTLE GT PRN (18:13)
[2017-07-08 20:00] VITALS: BP 109/68
[2017-07-08] MEDS: FINASTERIDE (5 MG) 5 MG TABLET GT SCH (20:00)
[2017-07-08] MEDS: DOCUSATE SODIUM LIQ 100 MG/10 ML UDC GT SCH (21:05)
[2017-07-08] MEDS: MULTIVIT, IRON, MIN NO. 8, FA 1 TAB GT SCH (21:05)
[2017-07-08] MEDS: ASCORBIC ACID 500 MG TABLET GT SCH (21:06)
[2017-07-08] MEDS: SENNOSIDES 8.6 MG TABLET PO SCH (21:06)
[2017-07-08] MEDS: VANCOMYCIN 1 GM in IV D5W 250ml IV SCH (21:31)
[2017-07-09] MEDS: GLYCOPYRROLATE 1 MG TABLET GT SCH ×4 (00:21→18:00)
[2017-07-09] MEDS: ALBUTEROL FS 2.5 MG/3 ML VIAL.NEB NEB SCH ×4 (01:59→20:25)
[2017-07-09] MEDS: IPRATROPIUM NEB FS 0.5 MG/2.5 ML AMPUL.NEB NEB SCH ×4 (01:59→20:25)
[2017-07-09] MEDS: BACLOFEN (10 MG) 10 MG TABLET GT SCH ×3 (05:26→20:51)
[2017-07-09] MEDS: LEVOTHYROXINE SODIUM 125 MCG TABLET GT SCH (05:26)
[2017-07-09 07:11] LABS: BASOPHILS # (AUTO) 0.1 /CMM (0.0-0.2); BASOPHILS % (AUTO) 0.3 % (0.0-2.0); EOSINOPHILS # (AUTO) 0.4 /CMM (0.0-0.7); HEMATOCRIT 34 % (39-51); HEMOGLOBIN 10.8 g/dL (13.5-17.5); LYMPHOCYTES # (AUTO) 3.5 /CMM (0.8-4.8); LYMPHOCYTES % (AUTO) 18.5 % (20.0-44.0); MEAN CORPUSCULAR HEMOGLOBIN 24 PG (26.0-33.0); MEAN CORPUSCULAR HGB CONC 32 g/dl (31.0-36.0); MEAN CORPUSCULAR VOLUME 75 fL (80-96); MONOCYTES # (AUTO) 1.5 /CMM (0.1-1.30); MONOCYTES % (AUTO) 7.7 % (2.0-12.0); NEUTROPHILS # (AUTO) 13.5 /CMM (1.8-8.9); NEUTROPHILS % (AUTO) 71.5 % (43.0-81.0); PLATELET COUNT (AUTO) 423 /CMM (150-450); RDW COEFFICIENT OF VARIATION 18.1 (11.5-15.0); RED BLOOD CELL COUNT(AUTO) 4.49 MIL/uL (4.5-6.0); WHITE BLOOD COUNT (AUTO) 18.9 K/uL (4.3-11.0)
[2017-07-09 08:01] VITALS: BP 103/68
[2017-07-09] MEDS: ZINC OXIDE 30 GM TUBE TP SCH ×2 (09:00→20:55)
[2017-07-09] MEDS: HYDROGEN PEROXIDE 480 ML BOTTLE TP SCH ×2 (09:00→20:55)
[2017-07-09] MEDS: POLYVINYL ALCOHOL 15 ML BOTTLE EACHEYE SCH ×4 (09:24→20:50)
[2017-07-09] MEDS: ACIDOPHILUS/BULGARICUS 1 EACH TAB.CHEW GT SCH (09:25)
[2017-07-09] MEDS: POLYETHYLENE GLYCOL 3350 17 GM POWD.PACK GT SCH (09:25)
[2017-07-09] MEDS: POTASSIUM CHLORIDE 20 MEQ/15 ML ML GT SCH (09:25)
[2017-07-09] MEDS: AMIODARONE HCL 200 MG TABLET GT SCH (09:25)
[2017-07-09] MEDS: OMEPRAZOLE 10 MG CAPSULE.DR GT SCH (09:25)
[2017-07-09] MEDS: HEPARIN SODIUM, PORCINE 5000 UNITS/1 ML VIAL SQ SCH ×2 (09:26→20:55)
[2017-07-09] MEDS: MEROPENEM 500 MG in IV NS 0.9% 50 ML IV SCH ×2 (09:31→20:57)
[2017-07-09 11:43] LABS: BAND % (MANUAL) 3 % (0.0-5.0); EOSINOPHILS % (MANUAL) 3 % (0-4); LYMPHOCYTES % (MANUAL) 12 % (16-48); MONOCYTES % (MANUAL) 9 % (0-11.0); NEUTROPHILS % (MANUAL) 73 (42-76)
--- NOTE | 2017-07-09 14:19 | NUR ---
Received phone call from charge nurse who informed her that resident has visitors waiting downstairs with security. Charge nurse provided names to health and social care teacher and confirmed with resident's that it is ok to visit. has certain visitation restrictions but stated that the only restrictions are for what times resident's children can visit and that everyone else can visit without restriction. Informed charge nurse.
--- NOTE | 2017-07-09 18:21 | NUR ---
CARMELITA Ricks reviewed pt's CXR and CBC results. Received order to continue Vancomycin and Meropenem for 5 more days from today.
[2017-07-09 19:56] VITALS: BP 109/60
[2017-07-09] MEDS: FINASTERIDE (5 MG) 5 MG TABLET GT SCH (20:50)
[2017-07-09] MEDS: MULTIVIT, IRON, MIN NO. 8, FA 1 TAB GT SCH (20:51)
[2017-07-09] MEDS: DOCUSATE SODIUM LIQ 100 MG/10 ML UDC GT SCH (20:51)
[2017-07-09] MEDS: ASCORBIC ACID 500 MG TABLET GT SCH (20:52)
[2017-07-09] MEDS: VANCOMYCIN 1 GM in IV D5W 250ml IV SCH (20:58)
[2017-07-09] MEDS: SENNOSIDES 8.6 MG TABLET PO SCH (21:43)
[2017-07-10] MEDS: GLYCOPYRROLATE 1 MG TABLET GT SCH ×4 (00:21→18:00)
[2017-07-10] MEDS: ALBUTEROL FS 2.5 MG/3 ML VIAL.NEB NEB SCH ×4 (02:18→19:33)
[2017-07-10] MEDS: IPRATROPIUM NEB FS 0.5 MG/2.5 ML AMPUL.NEB NEB SCH ×4 (02:18→19:33)
[2017-07-10] MEDS: LEVOTHYROXINE SODIUM 125 MCG TABLET GT SCH (05:38)
[2017-07-10] MEDS: BACLOFEN (10 MG) 10 MG TABLET GT SCH ×3 (05:38→21:21)
[2017-07-10] MEDS: MEROPENEM 500 MG in IV NS 0.9% 50 ML IV SCH ×2 (09:00→21:00)
[2017-07-10] MEDS: OMEPRAZOLE 10 MG CAPSULE.DR GT SCH (09:00)
[2017-07-10] MEDS: POLYETHYLENE GLYCOL 3350 17 GM POWD.PACK GT SCH (09:00)
[2017-07-10] MEDS: HYDROGEN PEROXIDE 480 ML BOTTLE TP SCH ×2 (09:00→21:24)
[2017-07-10] MEDS: POTASSIUM CHLORIDE 20 MEQ/15 ML ML GT SCH (09:00)
[2017-07-10] MEDS: ACIDOPHILUS/BULGARICUS 1 EACH TAB.CHEW GT SCH (09:00)
[2017-07-10] MEDS: POLYVINYL ALCOHOL 15 ML BOTTLE EACHEYE SCH ×4 (09:00→21:21)
[2017-07-10] MEDS: HEPARIN SODIUM, PORCINE 5000 UNITS/1 ML VIAL SQ SCH ×2 (09:00→21:23)
[2017-07-10] MEDS: AMIODARONE HCL 200 MG TABLET GT SCH (09:00)
[2017-07-10] MEDS: ZINC OXIDE 30 GM TUBE TP SCH ×2 (09:00→21:24)
--- NOTE | 2017-07-10 09:22 | NUR ---
Social Service Section of [facility] (annual) completed. Resident is uncommunicative. Resident's , Fanny is his conservator and is involved in his care. Discharge to a lower level of care when medically appropriate. visits on a daily basis and feels that he will be a resident of [facility] for the termite exterminator.
[2017-07-10 12:51] VITALS: BP 106/80
--- NOTE | 2017-07-10 15:21 | NUR ---
picked up signed physician statement from SW. She also notified that she will be unavailable from July 11, 2017-July 24, 2017 and will have two people coming to assist resident: Mikki and Yvette. Charge nurse informed .
--- NOTE | 2017-07-10 16:05 | NUR ---
Vancomycin trough 19, faxed result to [facility] pharmacy and spoke with Allen earlier this morning. Received order to continue same dose of Vancomycin 1 gm IV q 24 hours until 07/14/17, do Vancomycin trough, BUN, serum Cr on 07/12/17 before 9pm dose.
--- NOTE | 2017-07-10 17:50 | NUR ---
Late entry for 07/09/171899 Seen by CARMELITA Posada. Showed her pt's CXR result. No new order.
[2017-07-10 19:51] VITALS: BP 106/54
[2017-07-10] MEDS: FINASTERIDE (5 MG) 5 MG TABLET GT SCH (20:00)
[2017-07-10] MEDS: VANCOMYCIN 1 GM in IV D5W 250ml IV SCH (21:00)
[2017-07-10] MEDS: MULTIVIT, IRON, MIN NO. 8, FA 1 TAB GT SCH (21:20)
[2017-07-10] MEDS: DOCUSATE SODIUM LIQ 100 MG/10 ML UDC GT SCH (21:21)
[2017-07-10] MEDS: ASCORBIC ACID 500 MG TABLET GT SCH (21:22)
[2017-07-10] MEDS: SENNOSIDES 8.6 MG TABLET PO SCH (21:24)
[2017-07-11] MEDS: GLYCOPYRROLATE 1 MG TABLET GT SCH ×4 (00:24→18:04)
[2017-07-11] MEDS: IPRATROPIUM NEB FS 0.5 MG/2.5 ML AMPUL.NEB NEB SCH ×4 (01:26→20:02)
[2017-07-11] MEDS: ALBUTEROL FS 2.5 MG/3 ML VIAL.NEB NEB SCH ×4 (01:26→20:02)
[2017-07-11] MEDS: LEVOTHYROXINE SODIUM 125 MCG TABLET GT SCH (05:56)
[2017-07-11] MEDS: BACLOFEN (10 MG) 10 MG TABLET GT SCH ×3 (05:56→21:00)
[2017-07-11 08:00] VITALS: BP 119/61
[2017-07-11] MEDS: MEROPENEM 500 MG in IV NS 0.9% 50 ML IV SCH ×2 (09:30→20:59)
[2017-07-11] MEDS: POLYVINYL ALCOHOL 15 ML BOTTLE EACHEYE SCH ×4 (09:44→21:00)
[2017-07-11] MEDS: AMIODARONE HCL 200 MG TABLET GT SCH (09:45)
[2017-07-11] MEDS: ACIDOPHILUS/BULGARICUS 1 EACH TAB.CHEW GT SCH (09:45)
[2017-07-11] MEDS: OMEPRAZOLE 10 MG CAPSULE.DR GT SCH (09:45)
[2017-07-11] MEDS: POLYETHYLENE GLYCOL 3350 17 GM POWD.PACK GT SCH (09:45)
[2017-07-11] MEDS: POTASSIUM CHLORIDE 20 MEQ/15 ML ML GT SCH (09:45)
[2017-07-11] MEDS: ZINC OXIDE 30 GM TUBE TP SCH ×2 (09:46→21:00)
[2017-07-11] MEDS: HYDROGEN PEROXIDE 480 ML BOTTLE TP SCH ×2 (09:46→21:00)
[2017-07-11] MEDS: HEPARIN SODIUM, PORCINE 5000 UNITS/1 ML VIAL SQ SCH ×2 (09:46→21:00)
--- NOTE | 2017-07-11 11:50 | NUR ---
Obtain an order from Dr. David for GI consult due to leaking of GT site and presence of GT granuloma. Dr. Hanson notified and he said that he will take a look at the patient today. Meanwhile he said to hold the GT feeding until he sees the patient.
--- NOTE | 2017-07-11 18:20 | NUR ---
Dr. Hanson, talent acquisition manager assess GT site. He changed GT with Fr. 20 Valeriano quinonez MD also debrided GT granuloma. Consent obtain from Dat Bradley, resident's brother. Unable to contact resident's , who is apparently [place] of the [place] due to an emergency according to Mr. Dat Bradley. Patient tolerated procedure, bleeding stopped after pressure dressing applied to the site. Endorsed.
[2017-07-11] MEDS: FINASTERIDE (5 MG) 5 MG TABLET GT SCH (20:00)
[2017-07-11] MEDS: VANCOMYCIN 1 GM in IV D5W 250ml IV SCH (20:59)
[2017-07-11] MEDS: ASCORBIC ACID 500 MG TABLET GT SCH (21:00)
[2017-07-11] MEDS: MULTIVIT, IRON, MIN NO. 8, FA 1 TAB GT SCH (21:00)
[2017-07-11] MEDS: DOCUSATE SODIUM LIQ 100 MG/10 ML UDC GT SCH (21:00)
[2017-07-11 21:58] VITALS: BP 93/59
[2017-07-11] MEDS: SENNOSIDES 8.6 MG TABLET PO SCH (22:04)
[2017-07-12] MEDS: GLYCOPYRROLATE 1 MG TABLET GT SCH ×5 (00:29→23:51)
[2017-07-12] MEDS: ALBUTEROL FS 2.5 MG/3 ML VIAL.NEB NEB SCH ×4 (00:52→20:08)
[2017-07-12] MEDS: IPRATROPIUM NEB FS 0.5 MG/2.5 ML AMPUL.NEB NEB SCH ×4 (00:52→20:08)
--- NOTE | 2017-07-12 03:55 | NUR ---
CALLED AND ASKING WHY WE CALLED THE BROTHER,WHAT IS THE PROBLEM?TOLD HER THAT THEY NEED A CONSENT FOR THE GT GRANULOMA,THAT WHY THEY CALLED HIM BECAUSE YOUR NOT AVAILABLE.HE ALREADY GAVE CONSENT AND THE PROCEDURE WAS ALREADY DONE.SHE SAID THAT SHE'S ON THE PLANE THAT WHY SHE DIDN'T ANSWER,BUT WE STILL CAN CALL HER 09/04.
[2017-07-12] MEDS: BACLOFEN (10 MG) 10 MG TABLET GT SCH ×3 (05:00→21:36)
[2017-07-12] MEDS: LEVOTHYROXINE SODIUM 125 MCG TABLET GT SCH (06:07)
[2017-07-12] MEDS: RENAL NOVASOURCE 1,000 ML BOTTLE GT PRN (06:08)
[2017-07-12 07:48] VITALS: BP_SYST 124; BP_DIAS 57; BP_DIAS 67
[2017-07-12] MEDS: POLYETHYLENE GLYCOL 3350 17 GM POWD.PACK GT SCH (09:00)
[2017-07-12] MEDS: ACIDOPHILUS/BULGARICUS 1 EACH TAB.CHEW GT SCH (09:00)
[2017-07-12] MEDS: HYDROGEN PEROXIDE 480 ML BOTTLE TP SCH ×2 (09:00→21:37)
[2017-07-12] MEDS: AMIODARONE HCL 200 MG TABLET GT SCH (09:00)
[2017-07-12] MEDS: ZINC OXIDE 30 GM TUBE TP SCH ×2 (09:00→21:37)
[2017-07-12] MEDS: POLYVINYL ALCOHOL 15 ML BOTTLE EACHEYE SCH ×4 (09:00→21:36)
[2017-07-12] MEDS: HEPARIN SODIUM, PORCINE 5000 UNITS/1 ML VIAL SQ SCH ×2 (09:00→21:37)
[2017-07-12] MEDS: OMEPRAZOLE 10 MG CAPSULE.DR GT SCH (09:00)
[2017-07-12] MEDS: POTASSIUM CHLORIDE 20 MEQ/15 ML ML GT SCH (09:00)
[2017-07-12] MEDS: MEROPENEM 500 MG in IV NS 0.9% 50 ML IV SCH ×2 (09:48→21:04)
--- NOTE | 2017-07-12 17:39 | NUR ---
Notified Dr. Hanson that GT is still leaking. He saw the pt and said to keep the GT stopper tight but not to tight to cause the skin to necrose. He also said not to place a dressing between the GT stopper and skin because the gap can cause the GT to move and leak.
[2017-07-12] MEDS: FINASTERIDE (5 MG) 5 MG TABLET GT SCH (21:00)
[2017-07-12] MEDS: VANCOMYCIN 1 GM in IV D5W 250ml IV SCH ×2 (21:04→23:00)
[2017-07-12 21:19] LABS: CREATININE 1.7 mg/dL (0.6-1.3)
[2017-07-12] MEDS: ASCORBIC ACID 500 MG TABLET GT SCH (21:36)
[2017-07-12] MEDS: MULTIVIT, IRON, MIN NO. 8, FA 1 TAB GT SCH (21:36)
[2017-07-12] MEDS: DOCUSATE SODIUM LIQ 100 MG/10 ML UDC GT SCH (21:36)
[2017-07-12] MEDS: SENNOSIDES 8.6 MG TABLET PO SCH (21:37)
--- NOTE | 2017-07-12 23:20 | NUR ---
Spoke to [facility] IV pharmacist,vanco trough is 23 mg/dl,hold Vancomycin dose for tonight and do Vancomycin random,BUN and Creatinine in AM and call pharmacist for results.
[2017-07-12 23:56] VITALS: BP 94/54
[2017-07-13] MEDS: ALBUTEROL FS 2.5 MG/3 ML VIAL.NEB NEB SCH ×4 (02:14→19:30)
[2017-07-13] MEDS: IPRATROPIUM NEB FS 0.5 MG/2.5 ML AMPUL.NEB NEB SCH ×4 (02:14→19:30)
[2017-07-13] MEDS: BACLOFEN (10 MG) 10 MG TABLET GT SCH ×3 (05:00→21:54)
[2017-07-13] MEDS: GLYCOPYRROLATE 1 MG TABLET GT SCH ×4 (06:33→23:59)
[2017-07-13] MEDS: LEVOTHYROXINE SODIUM 125 MCG TABLET GT SCH (06:33)
[2017-07-13] MEDS: RENAL NOVASOURCE 1,000 ML BOTTLE GT PRN (06:34)
[2017-07-13 07:36] VITALS: BP 109/59
[2017-07-13 07:39] LABS: CREATININE 1.5 mg/dL (0.6-1.3)
[2017-07-13] MEDS: POLYVINYL ALCOHOL 15 ML BOTTLE EACHEYE SCH ×4 (09:24→21:54)
[2017-07-13] MEDS: POTASSIUM CHLORIDE 20 MEQ/15 ML ML GT SCH (09:25)
[2017-07-13] MEDS: POLYETHYLENE GLYCOL 3350 17 GM POWD.PACK GT SCH (09:25)
[2017-07-13] MEDS: ACIDOPHILUS/BULGARICUS 1 EACH TAB.CHEW GT SCH (09:25)
[2017-07-13] MEDS: AMIODARONE HCL 200 MG TABLET GT SCH (09:25)
[2017-07-13] MEDS: OMEPRAZOLE 10 MG CAPSULE.DR GT SCH (09:26)
[2017-07-13] MEDS: HEPARIN SODIUM, PORCINE 5000 UNITS/1 ML VIAL SQ SCH ×2 (09:27→21:55)
[2017-07-13] MEDS: MEROPENEM 500 MG in IV NS 0.9% 50 ML IV SCH ×2 (09:27→21:15)
[2017-07-13] MEDS: ZINC OXIDE 30 GM TUBE TP SCH ×2 (09:27→21:55)
[2017-07-13] MEDS: HYDROGEN PEROXIDE 480 ML BOTTLE TP SCH ×2 (10:00→21:55)
[2017-07-13] MEDS: FINASTERIDE (5 MG) 5 MG TABLET GT SCH (20:00)
[2017-07-13] MEDS: VANCOMYCIN 1 GM in IV D5W 250ml IV SCH (21:00)
[2017-07-13] MEDS: DOCUSATE SODIUM LIQ 100 MG/10 ML UDC GT SCH (21:54)
[2017-07-13] MEDS: MULTIVIT, IRON, MIN NO. 8, FA 1 TAB GT SCH (21:55)
[2017-07-13] MEDS: ASCORBIC ACID 500 MG TABLET GT SCH (21:55)
[2017-07-13] MEDS: SENNOSIDES 8.6 MG TABLET PO SCH (21:55)
[2017-07-13 22:01] VITALS: BP 93/59
[2017-07-14] MEDS: IPRATROPIUM NEB FS 0.5 MG/2.5 ML AMPUL.NEB NEB SCH ×4 (02:29→19:54)
[2017-07-14] MEDS: ALBUTEROL FS 2.5 MG/3 ML VIAL.NEB NEB SCH ×4 (02:29→19:54)
[2017-07-14] MEDS: BACLOFEN (10 MG) 10 MG TABLET GT SCH ×3 (05:00→21:00)
[2017-07-14] MEDS: LEVOTHYROXINE SODIUM 125 MCG TABLET GT SCH (06:16)
[2017-07-14] MEDS: GLYCOPYRROLATE 1 MG TABLET GT SCH ×3 (06:16→18:36)
[2017-07-14] MEDS: RENAL NOVASOURCE 1,000 ML BOTTLE GT PRN (06:25)
[2017-07-14 07:39] VITALS: BP 114/74
[2017-07-14] MEDS: MEROPENEM 500 MG in IV NS 0.9% 50 ML IV SCH ×2 (09:00→21:00)
[2017-07-14] MEDS: POLYVINYL ALCOHOL 15 ML BOTTLE EACHEYE SCH ×4 (09:02→21:00)
[2017-07-14] MEDS: POLYETHYLENE GLYCOL 3350 17 GM POWD.PACK GT SCH (09:03)
[2017-07-14] MEDS: ACIDOPHILUS/BULGARICUS 1 EACH TAB.CHEW GT SCH (09:03)
[2017-07-14] MEDS: AMIODARONE HCL 200 MG TABLET GT SCH (09:03)
[2017-07-14] MEDS: POTASSIUM CHLORIDE 20 MEQ/15 ML ML GT SCH (09:04)
[2017-07-14] MEDS: OMEPRAZOLE 10 MG CAPSULE.DR GT SCH (09:04)
[2017-07-14] MEDS: HYDROGEN PEROXIDE 480 ML BOTTLE TP SCH ×2 (09:05→21:00)
[2017-07-14] MEDS: HEPARIN SODIUM, PORCINE 5000 UNITS/1 ML VIAL SQ SCH ×2 (09:05→21:00)
[2017-07-14] MEDS: ZINC OXIDE 30 GM TUBE TP SCH ×2 (09:05→21:00)
[2017-07-14 19:59] VITALS: BP 98/56
[2017-07-14] MEDS: FINASTERIDE (5 MG) 5 MG TABLET GT SCH (20:00)
[2017-07-14] MEDS: MULTIVIT, IRON, MIN NO. 8, FA 1 TAB GT SCH (21:00)
[2017-07-14] MEDS: VANCOMYCIN 1 GM in IV D5W 250ml IV SCH (21:00)
[2017-07-14] MEDS: DOCUSATE SODIUM LIQ 100 MG/10 ML UDC GT SCH (21:00)
[2017-07-14] MEDS: ASCORBIC ACID 500 MG TABLET GT SCH (21:00)
[2017-07-14] MEDS: SENNOSIDES 8.6 MG TABLET PO SCH (22:25)
[2017-07-15] MEDS: IPRATROPIUM NEB FS 0.5 MG/2.5 ML AMPUL.NEB NEB SCH ×4 (00:48→20:19)
[2017-07-15] MEDS: ALBUTEROL FS 2.5 MG/3 ML VIAL.NEB NEB SCH ×4 (00:48→20:19)
[2017-07-15] MEDS: BACLOFEN (10 MG) 10 MG TABLET GT SCH ×3 (05:00→21:44)
[2017-07-15] MEDS: LEVOTHYROXINE SODIUM 125 MCG TABLET GT SCH (06:11)
[2017-07-15] MEDS: GLYCOPYRROLATE 1 MG TABLET GT SCH ×5 (06:11→23:57)
[2017-07-15] MEDS: RENAL NOVASOURCE 1,000 ML BOTTLE GT PRN (06:11)
[2017-07-15 07:47] VITALS: BP 124/62
[2017-07-15] MEDS: ERGOCALCIFEROL (VITAMIN D2) 8,000 UNIT/ML GT SCH (09:00)
[2017-07-15] MEDS: POTASSIUM CHLORIDE 20 MEQ/15 ML ML GT SCH (09:54)
[2017-07-15] MEDS: POLYETHYLENE GLYCOL 3350 17 GM POWD.PACK GT SCH (09:54)
[2017-07-15] MEDS: AMIODARONE HCL 200 MG TABLET GT SCH (09:54)
[2017-07-15] MEDS: ACIDOPHILUS/BULGARICUS 1 EACH TAB.CHEW GT SCH (09:54)
[2017-07-15] MEDS: OMEPRAZOLE 10 MG CAPSULE.DR GT SCH (09:54)
[2017-07-15] MEDS: POLYVINYL ALCOHOL 15 ML BOTTLE EACHEYE SCH ×4 (09:54→21:44)
[2017-07-15] MEDS: HYDROGEN PEROXIDE 480 ML BOTTLE TP SCH ×2 (09:55→21:44)
[2017-07-15] MEDS: ZINC OXIDE 30 GM TUBE TP SCH ×2 (09:55→21:44)
[2017-07-15] MEDS: HEPARIN SODIUM, PORCINE 5000 UNITS/1 ML VIAL SQ SCH ×2 (09:55→21:44)
[2017-07-15 19:47] VITALS: BP 98/58
[2017-07-15] MEDS: FINASTERIDE (5 MG) 5 MG TABLET GT SCH (20:00)
[2017-07-15] MEDS: DOCUSATE SODIUM LIQ 100 MG/10 ML UDC GT SCH (21:44)
[2017-07-15] MEDS: ASCORBIC ACID 500 MG TABLET GT SCH (21:44)
[2017-07-15] MEDS: MULTIVIT, IRON, MIN NO. 8, FA 1 TAB GT SCH (21:44)
[2017-07-15] MEDS: SENNOSIDES 8.6 MG TABLET PO SCH (21:44)
[2017-07-16] MEDS: IPRATROPIUM NEB FS 0.5 MG/2.5 ML AMPUL.NEB NEB SCH ×4 (01:30→19:48)
[2017-07-16] MEDS: ALBUTEROL FS 2.5 MG/3 ML VIAL.NEB NEB SCH ×4 (01:30→19:48)
[2017-07-16] MEDS: GLYCOPYRROLATE 1 MG TABLET GT SCH ×3 (05:03→17:35)
[2017-07-16] MEDS: LEVOTHYROXINE SODIUM 125 MCG TABLET GT SCH (05:03)
[2017-07-16] MEDS: BACLOFEN (10 MG) 10 MG TABLET GT SCH ×3 (05:03→21:45)
[2017-07-16] MEDS: POLYVINYL ALCOHOL 15 ML BOTTLE EACHEYE SCH ×4 (09:49→21:45)
[2017-07-16] MEDS: AMIODARONE HCL 200 MG TABLET GT SCH (09:49)
[2017-07-16] MEDS: POLYETHYLENE GLYCOL 3350 17 GM POWD.PACK GT SCH (09:49)
[2017-07-16] MEDS: ACIDOPHILUS/BULGARICUS 1 EACH TAB.CHEW GT SCH (09:49)
[2017-07-16] MEDS: OMEPRAZOLE 10 MG CAPSULE.DR GT SCH (09:50)
[2017-07-16] MEDS: ZINC OXIDE 30 GM TUBE TP SCH ×2 (09:50→21:46)
[2017-07-16] MEDS: POTASSIUM CHLORIDE 20 MEQ/15 ML ML GT SCH (09:50)
[2017-07-16] MEDS: HYDROGEN PEROXIDE 480 ML BOTTLE TP SCH ×2 (09:50→21:46)
[2017-07-16] MEDS: HEPARIN SODIUM, PORCINE 5000 UNITS/1 ML VIAL SQ SCH ×2 (09:50→21:46)
[2017-07-16 11:04] VITALS: BP 118/72
[2017-07-16] MEDS: FINASTERIDE (5 MG) 5 MG TABLET GT SCH (20:00)
[2017-07-16 20:02] VITALS: BP 98/54
[2017-07-16] MEDS: DOCUSATE SODIUM LIQ 100 MG/10 ML UDC GT SCH (21:45)
[2017-07-16] MEDS: MULTIVIT, IRON, MIN NO. 8, FA 1 TAB GT SCH (21:45)
[2017-07-16] MEDS: ASCORBIC ACID 500 MG TABLET GT SCH (21:45)
[2017-07-16] MEDS: SENNOSIDES 8.6 MG TABLET PO SCH (21:46)
[2017-07-17] MEDS: ALBUTEROL FS 2.5 MG/3 ML VIAL.NEB NEB SCH ×4 (02:12→19:30)
[2017-07-17] MEDS: IPRATROPIUM NEB FS 0.5 MG/2.5 ML AMPUL.NEB NEB SCH ×4 (02:12→19:30)
[2017-07-17] MEDS: BACLOFEN (10 MG) 10 MG TABLET GT SCH ×3 (05:51→21:37)
[2017-07-17] MEDS: LEVOTHYROXINE SODIUM 125 MCG TABLET GT SCH (05:51)
[2017-07-17] MEDS: GLYCOPYRROLATE 1 MG TABLET GT SCH ×4 (05:51→18:12)
[2017-07-17 08:16] VITALS: BP 98/66
[2017-07-17] MEDS: ACIDOPHILUS/BULGARICUS 1 EACH TAB.CHEW GT SCH (09:27)
[2017-07-17] MEDS: POTASSIUM CHLORIDE 20 MEQ/15 ML ML GT SCH (09:27)
[2017-07-17] MEDS: OMEPRAZOLE 10 MG CAPSULE.DR GT SCH (09:27)
[2017-07-17] MEDS: AMIODARONE HCL 200 MG TABLET GT SCH (09:27)
[2017-07-17] MEDS: POLYVINYL ALCOHOL 15 ML BOTTLE EACHEYE SCH ×4 (09:27→21:37)
[2017-07-17] MEDS: POLYETHYLENE GLYCOL 3350 17 GM POWD.PACK GT SCH (09:27)
[2017-07-17] MEDS: HEPARIN SODIUM, PORCINE 5000 UNITS/1 ML VIAL SQ SCH ×2 (09:28→21:37)
[2017-07-17] MEDS: HYDROGEN PEROXIDE 480 ML BOTTLE TP SCH ×2 (09:28→21:38)
[2017-07-17] MEDS: ZINC OXIDE 30 GM TUBE TP SCH ×2 (09:28→21:38)
[2017-07-17] MEDS: FINASTERIDE (5 MG) 5 MG TABLET GT SCH (20:00)
[2017-07-17 20:06] VITALS: BP 108/68
[2017-07-17] MEDS: DOCUSATE SODIUM LIQ 100 MG/10 ML UDC GT SCH (21:37)
[2017-07-17] MEDS: MULTIVIT, IRON, MIN NO. 8, FA 1 TAB GT SCH (21:37)
[2017-07-17] MEDS: ASCORBIC ACID 500 MG TABLET GT SCH (21:37)
[2017-07-17] MEDS: SENNOSIDES 8.6 MG TABLET PO SCH (21:38)
[2017-07-18] MEDS: GLYCOPYRROLATE 1 MG TABLET GT SCH ×4 (00:22→17:18)
[2017-07-18] MEDS: IPRATROPIUM NEB FS 0.5 MG/2.5 ML AMPUL.NEB NEB SCH ×4 (02:09→19:39)
[2017-07-18] MEDS: ALBUTEROL FS 2.5 MG/3 ML VIAL.NEB NEB SCH ×4 (02:09→19:39)
[2017-07-18] MEDS: LEVOTHYROXINE SODIUM 125 MCG TABLET GT SCH (05:47)
[2017-07-18] MEDS: BACLOFEN (10 MG) 10 MG TABLET GT SCH ×3 (05:47→21:45)
[2017-07-18 08:30] VITALS: BP 108/57
[2017-07-18] MEDS: HYDROGEN PEROXIDE 480 ML BOTTLE TP SCH ×2 (09:00→21:46)
[2017-07-18] MEDS: ZINC OXIDE 30 GM TUBE TP SCH ×2 (09:00→21:46)
[2017-07-18] MEDS: POLYVINYL ALCOHOL 15 ML BOTTLE EACHEYE SCH ×4 (09:01→21:40)
[2017-07-18] MEDS: POTASSIUM CHLORIDE 20 MEQ/15 ML ML GT SCH (09:01)
[2017-07-18] MEDS: ACIDOPHILUS/BULGARICUS 1 EACH TAB.CHEW GT SCH (09:02)
[2017-07-18] MEDS: POLYETHYLENE GLYCOL 3350 17 GM POWD.PACK GT SCH (09:02)
[2017-07-18] MEDS: AMIODARONE HCL 200 MG TABLET GT SCH (09:02)
[2017-07-18] MEDS: OMEPRAZOLE 10 MG CAPSULE.DR GT SCH (09:02)
[2017-07-18] MEDS: HEPARIN SODIUM, PORCINE 5000 UNITS/1 ML VIAL SQ SCH ×2 (09:02→21:46)
[2017-07-18] MEDS: RENAL NOVASOURCE 1,000 ML BOTTLE GT PRN (13:11)
[2017-07-18 19:58] VITALS: BP 106/62
[2017-07-18] MEDS: FINASTERIDE (5 MG) 5 MG TABLET GT SCH (20:00)
[2017-07-18] MEDS: DOCUSATE SODIUM LIQ 100 MG/10 ML UDC GT SCH (21:40)
[2017-07-18] MEDS: ASCORBIC ACID 500 MG TABLET GT SCH (21:45)
[2017-07-18] MEDS: MULTIVIT, IRON, MIN NO. 8, FA 1 TAB GT SCH (21:45)
[2017-07-18] MEDS: SENNOSIDES 8.6 MG TABLET PO SCH (21:46)
[2017-07-19] MEDS: GLYCOPYRROLATE 1 MG TABLET GT SCH ×4 (00:11→17:59)
[2017-07-19] MEDS: ALBUTEROL FS 2.5 MG/3 ML VIAL.NEB NEB SCH ×4 (01:55→19:56)
[2017-07-19] MEDS: IPRATROPIUM NEB FS 0.5 MG/2.5 ML AMPUL.NEB NEB SCH ×4 (01:55→19:56)
[2017-07-19] MEDS: BACLOFEN (10 MG) 10 MG TABLET GT SCH ×3 (05:00→21:24)
[2017-07-19] MEDS: LEVOTHYROXINE SODIUM 125 MCG TABLET GT SCH (06:14)
[2017-07-19 07:39] VITALS: BP 105/69
[2017-07-19] MEDS: POLYVINYL ALCOHOL 15 ML BOTTLE EACHEYE SCH ×4 (09:25→21:24)
[2017-07-19] MEDS: POTASSIUM CHLORIDE 20 MEQ/15 ML ML GT SCH (09:26)
[2017-07-19] MEDS: OMEPRAZOLE 10 MG CAPSULE.DR GT SCH (09:26)
[2017-07-19] MEDS: HEPARIN SODIUM, PORCINE 5000 UNITS/1 ML VIAL SQ SCH ×2 (09:26→21:24)
[2017-07-19] MEDS: POLYETHYLENE GLYCOL 3350 17 GM POWD.PACK GT SCH (09:26)
[2017-07-19] MEDS: ACIDOPHILUS/BULGARICUS 1 EACH TAB.CHEW GT SCH (09:26)
[2017-07-19] MEDS: AMIODARONE HCL 200 MG TABLET GT SCH (09:26)
[2017-07-19] MEDS: ZINC OXIDE 30 GM TUBE TP SCH ×2 (09:27→21:24)
[2017-07-19] MEDS: HYDROGEN PEROXIDE 480 ML BOTTLE TP SCH ×2 (09:27→21:24)
[2017-07-19] MEDS: MAGNESIUM HYDROXIDE 30 ML UDC GT PRN (17:59)
[2017-07-19] MEDS: RENAL NOVASOURCE 1,000 ML BOTTLE GT PRN (18:25)
--- NOTE | 2017-07-19 18:45 | NUR ---
Left knee redness noted earlier this shift, no swelling. No redness noted at this time. Pt was seen by OIL HOUSE ATTENDANT Vivian Posada and notified her about pt's redness on the left knee which has cleared. No new order. Pt's aware.
[2017-07-19 19:28] VITALS: BP 109/63
[2017-07-19] MEDS: FINASTERIDE (5 MG) 5 MG TABLET GT SCH (20:00)
[2017-07-19] MEDS: DOCUSATE SODIUM LIQ 100 MG/10 ML UDC GT SCH (21:24)
[2017-07-19] MEDS: MULTIVIT, IRON, MIN NO. 8, FA 1 TAB GT SCH (21:24)
[2017-07-19] MEDS: ASCORBIC ACID 500 MG TABLET GT SCH (21:24)
[2017-07-19] MEDS: SENNOSIDES 8.6 MG TABLET PO SCH (21:25)
[2017-07-20] MEDS: GLYCOPYRROLATE 1 MG TABLET GT SCH ×5 (00:22→23:54)
[2017-07-20] MEDS: IPRATROPIUM NEB FS 0.5 MG/2.5 ML AMPUL.NEB NEB SCH ×4 (01:00→19:50)
[2017-07-20] MEDS: ALBUTEROL FS 2.5 MG/3 ML VIAL.NEB NEB SCH ×4 (01:00→19:50)
[2017-07-20] MEDS: BACLOFEN (10 MG) 10 MG TABLET GT SCH ×3 (05:54→21:37)
[2017-07-20] MEDS: LEVOTHYROXINE SODIUM 125 MCG TABLET GT SCH (05:54)
[2017-07-20] MEDS: ZINC OXIDE 30 GM TUBE TP SCH ×2 (09:00→21:38)
[2017-07-20] MEDS: HYDROGEN PEROXIDE 480 ML BOTTLE TP SCH ×2 (09:00→21:38)
[2017-07-20] MEDS: ACIDOPHILUS/BULGARICUS 1 EACH TAB.CHEW GT SCH (09:28)
[2017-07-20] MEDS: AMIODARONE HCL 200 MG TABLET GT SCH (09:28)
[2017-07-20] MEDS: POLYVINYL ALCOHOL 15 ML BOTTLE EACHEYE SCH ×4 (09:28→21:36)
[2017-07-20] MEDS: POTASSIUM CHLORIDE 20 MEQ/15 ML ML GT SCH (09:29)
[2017-07-20] MEDS: OMEPRAZOLE 10 MG CAPSULE.DR GT SCH (09:29)
[2017-07-20] MEDS: POLYETHYLENE GLYCOL 3350 17 GM POWD.PACK GT SCH (09:29)
[2017-07-20] MEDS: HEPARIN SODIUM, PORCINE 5000 UNITS/1 ML VIAL SQ SCH ×2 (09:31→21:38)
[2017-07-20 10:26] VITALS: BP 114/78
[2017-07-20 19:47] VITALS: BP 114/61
[2017-07-20] MEDS: FINASTERIDE (5 MG) 5 MG TABLET GT SCH (20:00)
[2017-07-20] MEDS: DOCUSATE SODIUM LIQ 100 MG/10 ML UDC GT SCH (21:36)
[2017-07-20] MEDS: MULTIVIT, IRON, MIN NO. 8, FA 1 TAB GT SCH (21:37)
[2017-07-20] MEDS: ASCORBIC ACID 500 MG TABLET GT SCH (21:37)
[2017-07-20] MEDS: SENNOSIDES 8.6 MG TABLET PO SCH (21:38)
[2017-07-20] MEDS: RENAL NOVASOURCE 1,000 ML BOTTLE GT PRN (22:09)
[2017-07-21] MEDS: ALBUTEROL FS 2.5 MG/3 ML VIAL.NEB NEB SCH ×4 (01:27→19:29)
[2017-07-21] MEDS: IPRATROPIUM NEB FS 0.5 MG/2.5 ML AMPUL.NEB NEB SCH ×4 (01:27→19:29)
[2017-07-21] MEDS: LEVOTHYROXINE SODIUM 125 MCG TABLET GT SCH (05:57)
[2017-07-21] MEDS: BACLOFEN (10 MG) 10 MG TABLET GT SCH ×3 (05:57→21:41)
[2017-07-21] MEDS: GLYCOPYRROLATE 1 MG TABLET GT SCH ×3 (05:57→17:22)
[2017-07-21 07:34] VITALS: BP 121/77
[2017-07-21 07:36] VITALS: BP 130/90
[2017-07-21] MEDS: POLYVINYL ALCOHOL 15 ML BOTTLE EACHEYE SCH ×4 (09:53→21:41)
[2017-07-21] MEDS: HEPARIN SODIUM, PORCINE 5000 UNITS/1 ML VIAL SQ SCH ×2 (09:54→21:41)
[2017-07-21] MEDS: HYDROGEN PEROXIDE 480 ML BOTTLE TP SCH ×2 (09:54→21:41)
[2017-07-21] MEDS: ZINC OXIDE 30 GM TUBE TP SCH ×2 (09:54→21:42)
[2017-07-21] MEDS: POTASSIUM CHLORIDE 20 MEQ/15 ML ML GT SCH (09:54)
[2017-07-21] MEDS: ACIDOPHILUS/BULGARICUS 1 EACH TAB.CHEW GT SCH (09:54)
[2017-07-21] MEDS: POLYETHYLENE GLYCOL 3350 17 GM POWD.PACK GT SCH (09:54)
[2017-07-21] MEDS: AMIODARONE HCL 200 MG TABLET GT SCH (09:54)
[2017-07-21] MEDS: OMEPRAZOLE 10 MG CAPSULE.DR GT SCH (09:54)
[2017-07-21] MEDS ORDERED: ACETAMINOPHEN 325 MG TABLET PO PRN (14:30)
[2017-07-21] MEDS: ACETAMINOPHEN 650 MG/20 ML UDC- FOR SA PATIENTS ONLY GT PRN (17:22)
[2017-07-21 19:41] VITALS: BP 117/68
[2017-07-21] MEDS: FINASTERIDE (5 MG) 5 MG TABLET GT SCH (20:00)
[2017-07-21] MEDS: DOCUSATE SODIUM LIQ 100 MG/10 ML UDC GT SCH (21:41)
[2017-07-21] MEDS: MULTIVIT, IRON, MIN NO. 8, FA 1 TAB GT SCH (21:41)
[2017-07-21] MEDS: ASCORBIC ACID 500 MG TABLET GT SCH (21:41)
[2017-07-21] MEDS: SENNOSIDES 8.6 MG TABLET PO SCH (21:42)
[2017-07-22] MEDS: GLYCOPYRROLATE 1 MG TABLET GT SCH ×5 (00:22→23:54)
[2017-07-22] MEDS: IPRATROPIUM NEB FS 0.5 MG/2.5 ML AMPUL.NEB NEB SCH ×4 (01:55→19:30)
[2017-07-22] MEDS: ALBUTEROL FS 2.5 MG/3 ML VIAL.NEB NEB SCH ×4 (01:55→19:30)
[2017-07-22] MEDS: BACLOFEN (10 MG) 10 MG TABLET GT SCH ×3 (05:00→21:14)
[2017-07-22] MEDS: RENAL NOVASOURCE 1,000 ML BOTTLE GT PRN (06:34)
[2017-07-22] MEDS: LEVOTHYROXINE SODIUM 125 MCG TABLET GT SCH (06:34)
[2017-07-22 07:29] VITALS: BP 95/62
[2017-07-22] MEDS: ZINC OXIDE 30 GM TUBE TP SCH ×2 (09:00→21:14)
[2017-07-22] MEDS: HYDROGEN PEROXIDE 480 ML BOTTLE TP SCH ×2 (09:00→21:14)
[2017-07-22] MEDS: POLYVINYL ALCOHOL 15 ML BOTTLE EACHEYE SCH ×4 (09:16→21:13)
[2017-07-22] MEDS: ACIDOPHILUS/BULGARICUS 1 EACH TAB.CHEW GT SCH (09:16)
[2017-07-22] MEDS: POLYETHYLENE GLYCOL 3350 17 GM POWD.PACK GT SCH (09:16)
[2017-07-22] MEDS: AMIODARONE HCL 200 MG TABLET GT SCH (09:16)
[2017-07-22] MEDS: POTASSIUM CHLORIDE 20 MEQ/15 ML ML GT SCH (09:16)
[2017-07-22] MEDS: OMEPRAZOLE 10 MG CAPSULE.DR GT SCH (09:16)
[2017-07-22] MEDS: HEPARIN SODIUM, PORCINE 5000 UNITS/1 ML VIAL SQ SCH ×2 (09:17→21:14)
--- NOTE | 2017-07-22 18:58 | NUR ---
Kitchen catheter was re-inserted today. Procedure well tolerated.
[2017-07-22 19:56] VITALS: BP 111/67
[2017-07-22] MEDS: FINASTERIDE (5 MG) 5 MG TABLET GT SCH (20:00)
[2017-07-22] MEDS: ASCORBIC ACID 500 MG TABLET GT SCH (21:14)
[2017-07-22] MEDS: MULTIVIT, IRON, MIN NO. 8, FA 1 TAB GT SCH (21:14)
[2017-07-22] MEDS: SENNOSIDES 8.6 MG TABLET PO SCH (21:14)
[2017-07-22] MEDS: DOCUSATE SODIUM LIQ 100 MG/10 ML UDC GT SCH (21:14)
[2017-07-23] MEDS: IPRATROPIUM NEB FS 0.5 MG/2.5 ML AMPUL.NEB NEB SCH ×4 (01:44→19:30)
[2017-07-23] MEDS: ALBUTEROL FS 2.5 MG/3 ML VIAL.NEB NEB SCH ×4 (01:44→19:30)
[2017-07-23] MEDS: GLYCOPYRROLATE 1 MG TABLET GT SCH ×3 (05:47→17:00)
[2017-07-23] MEDS: BACLOFEN (10 MG) 10 MG TABLET GT SCH ×3 (05:47→20:22)
[2017-07-23] MEDS: LEVOTHYROXINE SODIUM 125 MCG TABLET GT SCH (05:47)
[2017-07-23 07:29] VITALS: BP 92/59
[2017-07-23] MEDS: RENAL NOVASOURCE 1,000 ML BOTTLE GT PRN (07:53)
[2017-07-23] MEDS: POLYVINYL ALCOHOL 15 ML BOTTLE EACHEYE SCH ×4 (08:12→20:22)
[2017-07-23] MEDS: OMEPRAZOLE 10 MG CAPSULE.DR GT SCH (08:13)
[2017-07-23] MEDS: ACIDOPHILUS/BULGARICUS 1 EACH TAB.CHEW GT SCH (08:13)
[2017-07-23] MEDS: POTASSIUM CHLORIDE 20 MEQ/15 ML ML GT SCH (08:13)
[2017-07-23] MEDS: AMIODARONE HCL 200 MG TABLET GT SCH (08:13)
[2017-07-23] MEDS: POLYETHYLENE GLYCOL 3350 17 GM POWD.PACK GT SCH (08:13)
[2017-07-23] MEDS: HEPARIN SODIUM, PORCINE 5000 UNITS/1 ML VIAL SQ SCH ×2 (08:15→20:23)
[2017-07-23] MEDS: HYDROGEN PEROXIDE 480 ML BOTTLE TP SCH ×2 (09:00→20:23)
[2017-07-23] MEDS: ZINC OXIDE 30 GM TUBE TP SCH ×2 (09:00→20:23)
[2017-07-23 19:37] VITALS: BP 97/61
[2017-07-23] MEDS: FINASTERIDE (5 MG) 5 MG TABLET GT SCH (20:13)
[2017-07-23] MEDS: ASCORBIC ACID 500 MG TABLET GT SCH (20:22)
[2017-07-23] MEDS: MULTIVIT, IRON, MIN NO. 8, FA 1 TAB GT SCH (20:22)
[2017-07-23] MEDS: DOCUSATE SODIUM LIQ 100 MG/10 ML UDC GT SCH (20:22)
[2017-07-23] MEDS: SENNOSIDES 8.6 MG TABLET PO SCH (22:14)
[2017-07-24] MEDS: GLYCOPYRROLATE 1 MG TABLET GT SCH ×5 (00:16→23:53)
[2017-07-24] MEDS: IPRATROPIUM NEB FS 0.5 MG/2.5 ML AMPUL.NEB NEB SCH ×4 (01:40→19:51)
[2017-07-24] MEDS: ALBUTEROL FS 2.5 MG/3 ML VIAL.NEB NEB SCH ×4 (01:40→19:51)
[2017-07-24] MEDS: LEVOTHYROXINE SODIUM 125 MCG TABLET GT SCH (05:29)
[2017-07-24] MEDS: BACLOFEN (10 MG) 10 MG TABLET GT SCH ×3 (05:29→20:55)
[2017-07-24 07:53] VITALS: BP 122/75
[2017-07-24] MEDS: POLYVINYL ALCOHOL 15 ML BOTTLE EACHEYE SCH ×4 (09:07→20:54)
[2017-07-24] MEDS: ACIDOPHILUS/BULGARICUS 1 EACH TAB.CHEW GT SCH (09:08)
[2017-07-24] MEDS: POTASSIUM CHLORIDE 20 MEQ/15 ML ML GT SCH (09:08)
[2017-07-24] MEDS: POLYETHYLENE GLYCOL 3350 17 GM POWD.PACK GT SCH (09:08)
[2017-07-24] MEDS: AMIODARONE HCL 200 MG TABLET GT SCH (09:08)
[2017-07-24] MEDS: OMEPRAZOLE 10 MG CAPSULE.DR GT SCH (09:08)
[2017-07-24] MEDS: HYDROGEN PEROXIDE 480 ML BOTTLE TP SCH ×2 (09:09→20:58)
[2017-07-24] MEDS: HEPARIN SODIUM, PORCINE 5000 UNITS/1 ML VIAL SQ SCH ×2 (09:09→20:58)
[2017-07-24] MEDS: ZINC OXIDE 30 GM TUBE TP SCH ×2 (09:09→20:58)
[2017-07-24 19:50] VITALS: BP 111/70
[2017-07-24] MEDS: DOCUSATE SODIUM LIQ 100 MG/10 ML UDC GT SCH (20:54)
[2017-07-24] MEDS: FINASTERIDE (5 MG) 5 MG TABLET GT SCH (20:54)
[2017-07-24] MEDS: MULTIVIT, IRON, MIN NO. 8, FA 1 TAB GT SCH (20:55)
[2017-07-24] MEDS: ASCORBIC ACID 500 MG TABLET GT SCH (20:55)
[2017-07-24] MEDS: SENNOSIDES 8.6 MG TABLET PO SCH (21:00)
[2017-07-25] MEDS: ALBUTEROL FS 2.5 MG/3 ML VIAL.NEB NEB SCH ×4 (01:51→19:50)
[2017-07-25] MEDS: IPRATROPIUM NEB FS 0.5 MG/2.5 ML AMPUL.NEB NEB SCH ×4 (01:51→19:50)
[2017-07-25] MEDS: GLYCOPYRROLATE 1 MG TABLET GT SCH ×3 (05:50→17:15)
[2017-07-25] MEDS: LEVOTHYROXINE SODIUM 125 MCG TABLET GT SCH (05:50)
[2017-07-25] MEDS: BACLOFEN (10 MG) 10 MG TABLET GT SCH ×3 (05:50→21:22)
[2017-07-25] MEDS: RENAL NOVASOURCE 1,000 ML BOTTLE GT PRN (07:40)
[2017-07-25 07:58] VITALS: BP 101/64
[2017-07-25] MEDS: POLYVINYL ALCOHOL 15 ML BOTTLE EACHEYE SCH ×4 (08:28→21:22)
[2017-07-25] MEDS: OMEPRAZOLE 10 MG CAPSULE.DR GT SCH (08:29)
[2017-07-25] MEDS: AMIODARONE HCL 200 MG TABLET GT SCH (08:29)
[2017-07-25] MEDS: ACIDOPHILUS/BULGARICUS 1 EACH TAB.CHEW GT SCH (08:29)
[2017-07-25] MEDS: POTASSIUM CHLORIDE 20 MEQ/15 ML ML GT SCH (08:29)
[2017-07-25] MEDS: POLYETHYLENE GLYCOL 3350 17 GM POWD.PACK GT SCH (08:29)
[2017-07-25 08:30] VITALS: BP 101/64
[2017-07-25] MEDS: HEPARIN SODIUM, PORCINE 5000 UNITS/1 ML VIAL SQ SCH ×2 (08:31→21:22)
[2017-07-25] MEDS: ACETAMINOPHEN 650 MG/20 ML UDC- FOR SA PATIENTS ONLY GT PRN ×2 (08:31→17:16)
[2017-07-25] MEDS: ZINC OXIDE 30 GM TUBE TP SCH ×2 (09:00→21:23)
[2017-07-25] MEDS: HYDROGEN PEROXIDE 480 ML BOTTLE TP SCH ×2 (09:00→21:23)
[2017-07-25 09:30] VITALS: BP 102/53
--- NOTE | 2017-07-25 14:27 | NUR ---
Patient noted with low grade fever 100.7 in the morning. Tylenol was given by primary nurse which was dropped to 98.7 after giving Tylenol. Has still white clear secretions. Didn't had any episodes of difficulty of breathing. called me and told me that last night patient was having difficulty of breathing. wants to relay it to doctor. Spoke with Dr. David, and made an aware about 's concern, he gave an order for CBC and collect sputum specimen for culture. orders noted and carried out.
[2017-07-25 17:18] VITALS: BP 112/67
[2017-07-25 17:30] VITALS: BP 109/64
[2017-07-25 18:30] VITALS: BP 116/62
[2017-07-25] MEDS: FINASTERIDE (5 MG) 5 MG TABLET GT SCH (20:30)
[2017-07-25] MEDS: MULTIVIT, IRON, MIN NO. 8, FA 1 TAB GT SCH (21:22)
[2017-07-25] MEDS: DOCUSATE SODIUM LIQ 100 MG/10 ML UDC GT SCH (21:22)
[2017-07-25] MEDS: ASCORBIC ACID 500 MG TABLET GT SCH (21:22)
[2017-07-25] MEDS: SENNOSIDES 8.6 MG TABLET PO SCH (21:23)
[2017-07-26 00:02] VITALS: BP 90/56
[2017-07-26] MEDS: GLYCOPYRROLATE 1 MG TABLET GT SCH ×4 (00:16→17:18)
[2017-07-26] MEDS: IPRATROPIUM NEB FS 0.5 MG/2.5 ML AMPUL.NEB NEB SCH ×4 (01:42→19:14)
[2017-07-26] MEDS: ALBUTEROL FS 2.5 MG/3 ML VIAL.NEB NEB SCH ×4 (01:42→19:14)
[2017-07-26] MEDS: LEVOTHYROXINE SODIUM 125 MCG TABLET GT SCH (05:34)
[2017-07-26] MEDS: BACLOFEN (10 MG) 10 MG TABLET GT SCH ×3 (05:34→21:32)
[2017-07-26] MEDS: RENAL NOVASOURCE 1,000 ML BOTTLE GT PRN (05:37)
[2017-07-26 09:00] VITALS: BP 128/67
[2017-07-26] MEDS: ACIDOPHILUS/BULGARICUS 1 EACH TAB.CHEW GT SCH (09:34)
[2017-07-26] MEDS: AMIODARONE HCL 200 MG TABLET GT SCH (09:34)
[2017-07-26] MEDS: OMEPRAZOLE 10 MG CAPSULE.DR GT SCH (09:34)
[2017-07-26] MEDS: POLYETHYLENE GLYCOL 3350 17 GM POWD.PACK GT SCH (09:34)
[2017-07-26] MEDS: POTASSIUM CHLORIDE 20 MEQ/15 ML ML GT SCH (09:34)
[2017-07-26] MEDS: POLYVINYL ALCOHOL 15 ML BOTTLE EACHEYE SCH ×4 (09:34→21:29)
[2017-07-26] MEDS: ZINC OXIDE 30 GM TUBE TP SCH ×2 (09:36→21:33)
[2017-07-26] MEDS: HYDROGEN PEROXIDE 480 ML BOTTLE TP SCH ×2 (09:36→21:33)
[2017-07-26] MEDS: HEPARIN SODIUM, PORCINE 5000 UNITS/1 ML VIAL SQ SCH ×2 (09:36→21:33)
--- NOTE | 2017-07-26 11:00 | NUR ---
LUIZ Parsons reported that a scant amount of blood was noted on the pt's posterior side of the head. Charge nurse saw pt. No open skin was noted, no swelling, no bruising. Blood came from a pinpoint size area on the head. Pt on Heparin. Interviewed pt's WALE Reid and WALE Garcia who assisted with care. Both of them said they were careful with the pt and there was no incident that happened during the shower/care which would have caused the scant bleeding on the posterior head. Pt's at bedside and aware of the scant bleeding.
[2017-07-26 11:17] LABS: BASOPHILS # (AUTO) 0.1 /CMM (0.0-0.2); BASOPHILS % (AUTO) 0.4 % (0.0-2.0); HEMATOCRIT 38 % (39-51); LYMPHOCYTES # (AUTO) 1.6 /CMM (0.8-4.8); MEAN CORPUSCULAR HEMOGLOBIN 23 PG (26.0-33.0); MEAN CORPUSCULAR HGB CONC 32 g/dl (31.0-36.0); MEAN CORPUSCULAR VOLUME 74 fL (80-96); MONOCYTES # (AUTO) 2.3 /CMM (0.1-1.30); MONOCYTES % (AUTO) 11.6 % (2.0-12.0); NEUTROPHILS # (AUTO) 15.9 /CMM (1.8-8.9); PLATELET COUNT (AUTO) 327 /CMM (150-450); RDW COEFFICIENT OF VARIATION 18.6 (11.5-15.0); RED BLOOD CELL COUNT(AUTO) 5.13 MIL/uL (4.5-6.0); WHITE BLOOD COUNT (AUTO) 19.9 K/uL (4.3-11.0)
[2017-07-26 12:37] LABS: BAND % (MANUAL) 1 % (0.0-5.0); LYMPHOCYTES % (MANUAL) 8 % (16-48); MONOCYTES % (MANUAL) 9 % (0-11.0); NEUTROPHILS % (MANUAL) 82 (42-76)
[2017-07-26] MEDS: FINASTERIDE (5 MG) 5 MG TABLET GT SCH (20:00)
[2017-07-26] MEDS: MULTIVIT, IRON, MIN NO. 8, FA 1 TAB GT SCH (21:30)
[2017-07-26] MEDS: DOCUSATE SODIUM LIQ 100 MG/10 ML UDC GT SCH (21:32)
[2017-07-26] MEDS: ASCORBIC ACID 500 MG TABLET GT SCH (21:32)
[2017-07-26] MEDS: SENNOSIDES 8.6 MG TABLET PO SCH (21:33)
[2017-07-27] MEDS: GLYCOPYRROLATE 1 MG TABLET GT SCH ×4 (00:03→17:24)
[2017-07-27 00:05] VITALS: BP 110/63
[2017-07-27] MEDS: ALBUTEROL FS 2.5 MG/3 ML VIAL.NEB NEB SCH ×4 (01:53→19:30)
[2017-07-27] MEDS: IPRATROPIUM NEB FS 0.5 MG/2.5 ML AMPUL.NEB NEB SCH ×4 (01:53→19:30)
[2017-07-27] MEDS: LEVOTHYROXINE SODIUM 125 MCG TABLET GT SCH (05:55)
[2017-07-27] MEDS: BACLOFEN (10 MG) 10 MG TABLET GT SCH ×3 (05:55→21:15)
[2017-07-27] MEDS: RENAL NOVASOURCE 1,000 ML BOTTLE GT PRN (06:14)
--- NOTE | 2017-07-27 06:23 | NUR ---
Patient afebrile during the night,no respiratory distress noted.Sputum culture still pending. concerned about the air mattress she said is very soft and pt is not comfortable with it,she want to go back to the old settings.Explained to her that we just following the instruction per recommendation of the scleroscope tester,we use their weight and height to calculate the right firmness of the bed.Told to voice out her concerns in the IDT meeting today.Will endorsed
[2017-07-27] MEDS: OMEPRAZOLE 10 MG CAPSULE.DR GT SCH (08:27)
[2017-07-27] MEDS: POLYETHYLENE GLYCOL 3350 17 GM POWD.PACK GT SCH (08:27)
[2017-07-27] MEDS: POTASSIUM CHLORIDE 20 MEQ/15 ML ML GT SCH (08:27)
[2017-07-27] MEDS: POLYVINYL ALCOHOL 15 ML BOTTLE EACHEYE SCH ×4 (08:27→21:15)
[2017-07-27] MEDS: ACIDOPHILUS/BULGARICUS 1 EACH TAB.CHEW GT SCH (08:27)
[2017-07-27] MEDS: AMIODARONE HCL 200 MG TABLET GT SCH (08:27)
[2017-07-27] MEDS: HEPARIN SODIUM, PORCINE 5000 UNITS/1 ML VIAL SQ SCH ×2 (08:28→21:16)
[2017-07-27] MEDS: ZINC OXIDE 30 GM TUBE TP SCH ×2 (08:28→21:16)
[2017-07-27] MEDS: HYDROGEN PEROXIDE 480 ML BOTTLE TP SCH ×2 (08:28→21:16)
--- NOTE | 2017-07-27 08:50 | NUR ---
Relayed CBC result with elevated WBC to .made aware that resident has elevated temperature of 100.4F.got new order for blood culture x2,UA,C XRAY ,vancomycin and zosyn pharmacy to dose.noted and carried out.faxed to pharmacy.family made aware.spoke to in person and over the phone.continue to monitor.
[2017-07-27] MEDS: ACETAMINOPHEN 650 MG/20 ML UDC- FOR SA PATIENTS ONLY GT PRN ×2 (08:58→17:25)
--- NOTE | 2017-07-27 11:30 | NUR ---
Got new order from pharmacy to start vancomycin 1g IVPB Q24H start at 1400 and do vanco trough on 07/30/17 at 1330 with BUN and creatinine.placed order for lab.got order to start from E kit.spoke to mame.continue to monitor.placed an order to replace E Kit.
[2017-07-27 12:49] LABS: APPEARANCE,URINE CLEAR (CLEAR); BILIRUBIN,URINE NEGATIVE (NEGATIVE); BLOOD, URINE TRACE-INTA Ery/uL (NEGATIVE); COLOR,URINE YELLOW (YELLOW); KETONES,URINE NEGATIVE (NEGATIVE); LEUKOCYTE ESTERASE ,URINE 3+ (NEGATIVE); NITRITE, URINE NEGATIVE (NEGATIVE); PROTEIN,URINE TRACE mg/dl (NEGATIVE); UGLUCOSE NEGATIVE (NEGATIVE); UROBILINOGEN,URINE 0.2 EU/dL (0.2)
[2017-07-27 13:04] LABS: BACTERIA,URINE Few /HPF (None Seen); SQUAMOUS EPITHELIAL CELL,UR Few /HPF (None Seen); WBC,URINE 21-50 /HPF (0-3)
[2017-07-27 13:05] LABS: URINE AMORPHOUS PHOSPHATES Few /HPF (None Seen)
--- NOTE | 2017-07-27 13:37 | NUR ---
INTERDISCIPLINARY TEAM CONFERENCE (IDT) was held today. Resident's attended. Dr. David and the interdisciplinary team reviewed the current plan of care in detail. New orders were reviewed. expressed her concerns about the bed and wants to return back to the prior bed that resident was using. Charge nurse will follow up with subacute warehouse logistics manager Shanita.
[2017-07-27] MEDS: VANCOMYCIN 1 GM in IV D5W 250ml IV SCH (14:00)
[2017-07-27] MEDS: ZOSYN IVPB 2.25 G in IV D5W 50ml IV SCH (18:00)
[2017-07-27] MEDS: FINASTERIDE (5 MG) 5 MG TABLET GT SCH (20:30)
[2017-07-27] MEDS: DOCUSATE SODIUM LIQ 100 MG/10 ML UDC GT SCH (21:15)
[2017-07-27] MEDS: MULTIVIT, IRON, MIN NO. 8, FA 1 TAB GT SCH (21:15)
[2017-07-27] MEDS: ASCORBIC ACID 500 MG TABLET GT SCH (21:15)
[2017-07-27] MEDS: SENNOSIDES 8.6 MG TABLET PO SCH (21:16)
[2017-07-27 23:22] VITALS: BP 112/62
[2017-07-28] MEDS: ZOSYN IVPB 2.25 G in IV D5W 50ml IV SCH ×4 (00:09→18:00)
[2017-07-28] MEDS: GLYCOPYRROLATE 1 MG TABLET GT SCH ×4 (00:21→17:24)
[2017-07-28] MEDS: ALBUTEROL FS 2.5 MG/3 ML VIAL.NEB NEB SCH ×4 (01:12→20:26)
[2017-07-28] MEDS: IPRATROPIUM NEB FS 0.5 MG/2.5 ML AMPUL.NEB NEB SCH ×4 (01:12→20:26)
[2017-07-28] MEDS: BACLOFEN (10 MG) 10 MG TABLET GT SCH ×3 (05:47→21:31)
[2017-07-28] MEDS: LEVOTHYROXINE SODIUM 125 MCG TABLET GT SCH (05:47)
[2017-07-28] MEDS: RENAL NOVASOURCE 1,000 ML BOTTLE GT PRN (06:25)
[2017-07-28 08:10] VITALS: BP 112/63
[2017-07-28] MEDS: AMIODARONE HCL 200 MG TABLET GT SCH (09:18)
[2017-07-28] MEDS: POTASSIUM CHLORIDE 20 MEQ/15 ML ML GT SCH (09:18)
[2017-07-28] MEDS: POLYVINYL ALCOHOL 15 ML BOTTLE EACHEYE SCH ×4 (09:18→21:31)
[2017-07-28] MEDS: ACIDOPHILUS/BULGARICUS 1 EACH TAB.CHEW GT SCH (09:18)
[2017-07-28] MEDS: POLYETHYLENE GLYCOL 3350 17 GM POWD.PACK GT SCH (09:18)
[2017-07-28] MEDS: ZINC OXIDE 30 GM TUBE TP SCH ×2 (09:19→21:32)
[2017-07-28] MEDS: HEPARIN SODIUM, PORCINE 5000 UNITS/1 ML VIAL SQ SCH ×2 (09:19→21:32)
[2017-07-28] MEDS: HYDROGEN PEROXIDE 480 ML BOTTLE TP SCH ×2 (09:19→21:32)
[2017-07-28] MEDS: OMEPRAZOLE 10 MG CAPSULE.DR GT SCH (09:19)
[2017-07-28] MEDS: VANCOMYCIN 1 GM in IV D5W 250ml IV SCH (14:00)
[2017-07-28 19:37] VITALS: BP 125/67
[2017-07-28] MEDS: FINASTERIDE (5 MG) 5 MG TABLET GT SCH (20:00)
[2017-07-28] MEDS: ASCORBIC ACID 500 MG TABLET GT SCH (21:31)
[2017-07-28] MEDS: DOCUSATE SODIUM LIQ 100 MG/10 ML UDC GT SCH (21:31)
[2017-07-28] MEDS: MULTIVIT, IRON, MIN NO. 8, FA 1 TAB GT SCH (21:31)
[2017-07-28] MEDS: SENNOSIDES 8.6 MG TABLET PO SCH (21:32)
[2017-07-29] MEDS: GLYCOPYRROLATE 1 MG TABLET GT SCH ×5 (00:31→23:47)
[2017-07-29] MEDS: IPRATROPIUM NEB FS 0.5 MG/2.5 ML AMPUL.NEB NEB SCH ×4 (02:02→20:05)
[2017-07-29] MEDS: ALBUTEROL FS 2.5 MG/3 ML VIAL.NEB NEB SCH ×4 (02:02→20:05)
[2017-07-29] MEDS: BACLOFEN (10 MG) 10 MG TABLET GT SCH ×3 (05:00→21:08)
[2017-07-29] MEDS: LEVOTHYROXINE SODIUM 125 MCG TABLET GT SCH (06:11)
[2017-07-29] MEDS: RENAL NOVASOURCE 1,000 ML BOTTLE GT PRN (06:12)
[2017-07-29] MEDS: ZOSYN IVPB 2.25 G in IV D5W 50ml IV SCH ×5 (06:32→17:40)
[2017-07-29 08:37] VITALS: BP 109/67
[2017-07-29] MEDS: ACIDOPHILUS/BULGARICUS 1 EACH TAB.CHEW GT SCH (09:07)
[2017-07-29] MEDS: POLYVINYL ALCOHOL 15 ML BOTTLE EACHEYE SCH ×4 (09:07→21:07)
[2017-07-29] MEDS: AMIODARONE HCL 200 MG TABLET GT SCH (09:07)
[2017-07-29] MEDS: POTASSIUM CHLORIDE 20 MEQ/15 ML ML GT SCH (09:08)
[2017-07-29] MEDS: POLYETHYLENE GLYCOL 3350 17 GM POWD.PACK GT SCH (09:08)
[2017-07-29] MEDS: OMEPRAZOLE 10 MG CAPSULE.DR GT SCH (09:08)
[2017-07-29] MEDS: HYDROGEN PEROXIDE 480 ML BOTTLE TP SCH ×2 (09:09→21:08)
[2017-07-29] MEDS: ZINC OXIDE 30 GM TUBE TP SCH ×2 (09:09→21:08)
[2017-07-29] MEDS: HEPARIN SODIUM, PORCINE 5000 UNITS/1 ML VIAL SQ SCH ×2 (09:12→21:08)
[2017-07-29] MEDS: VANCOMYCIN 1 GM in IV D5W 250ml IV SCH (14:00)
[2017-07-29 19:43] VITALS: BP 132/64
[2017-07-29] MEDS: FINASTERIDE (5 MG) 5 MG TABLET GT SCH (20:00)
[2017-07-29] MEDS: SENNOSIDES 8.6 MG TABLET PO SCH (21:08)
[2017-07-29] MEDS: MULTIVIT, IRON, MIN NO. 8, FA 1 TAB GT SCH (21:08)
[2017-07-29] MEDS: DOCUSATE SODIUM LIQ 100 MG/10 ML UDC GT SCH (21:08)
[2017-07-29] MEDS: ASCORBIC ACID 500 MG TABLET GT SCH (21:08)
[2017-07-30] MEDS: ZOSYN IVPB 2.25 G in IV D5W 50ml IV SCH ×4 (00:35→18:59)
[2017-07-30] MEDS: IPRATROPIUM NEB FS 0.5 MG/2.5 ML AMPUL.NEB NEB SCH ×4 (02:12→19:47)
[2017-07-30] MEDS: ALBUTEROL FS 2.5 MG/3 ML VIAL.NEB NEB SCH ×4 (02:12→19:47)
[2017-07-30] MEDS: RENAL NOVASOURCE 1,000 ML BOTTLE GT PRN (05:38)
[2017-07-30] MEDS: GLYCOPYRROLATE 1 MG TABLET GT SCH ×4 (05:40→23:40)
[2017-07-30] MEDS: BACLOFEN (10 MG) 10 MG TABLET GT SCH ×3 (05:40→20:51)
[2017-07-30] MEDS: LEVOTHYROXINE SODIUM 125 MCG TABLET GT SCH (05:40)
[2017-07-30 08:15] VITALS: BP 100/61
[2017-07-30] MEDS: ZINC OXIDE 30 GM TUBE TP SCH ×2 (09:00→20:52)
[2017-07-30] MEDS: HYDROGEN PEROXIDE 480 ML BOTTLE TP SCH ×2 (09:00→20:52)
[2017-07-30] MEDS: AMIODARONE HCL 200 MG TABLET GT SCH (09:05)
[2017-07-30] MEDS: POLYVINYL ALCOHOL 15 ML BOTTLE EACHEYE SCH ×4 (09:05→20:51)
[2017-07-30] MEDS: ACIDOPHILUS/BULGARICUS 1 EACH TAB.CHEW GT SCH (09:06)
[2017-07-30] MEDS: POLYETHYLENE GLYCOL 3350 17 GM POWD.PACK GT SCH (09:07)
[2017-07-30] MEDS: POTASSIUM CHLORIDE 20 MEQ/15 ML ML GT SCH (09:07)
[2017-07-30] MEDS: OMEPRAZOLE 10 MG CAPSULE.DR GT SCH (09:07)
[2017-07-30] MEDS: HEPARIN SODIUM, PORCINE 5000 UNITS/1 ML VIAL SQ SCH ×2 (09:08→20:52)
[2017-07-30] MEDS ORDERED: LEVOFLOXACIN (500MG) 500 MG TABLET GT SCH (10:00)
--- NOTE | 2017-07-30 10:30 | NUR ---
Got urine culture result ,positive for ESBL urine.notified ,advised to consult with Alfa .notified Alfa about urine culture result.got new order for D/C vancomycin and start with tobramycin pharmacy to dose.responsible democrat made aware.left message to pieter.continue to monitor.
--- NOTE | 2017-07-30 11:00 | NUR ---
Assigned different ETHANOL MAINTENANCE MECHANIC for both resident.continue to monitor.resident is on contact isolation for ESBL urine.
--- NOTE | 2017-07-30 14:00 | NUR ---
Resident is on contact isolation for ESBL urine.resident has victoria catheter.education given to staff and family regarding isolation and precautions to be done while entering resident's room and about frequent hand washing.continue to monitor.
--- NOTE | 2017-07-30 14:00 | NUR ---
Received order for tobramycin dosing from [facility] pharmacy with order to place tobramycin trough on 07/31/17 with BUN and Creatinine.spoke to mariam.
[2017-07-30 14:30] LABS: CREATININE 1.8 mg/dL (0.6-1.3)
--- NOTE | 2017-07-30 16:00 | NUR ---
received sputum culture report.notified Alfa.got an order to start levaquin for 7 days.noted and carried out.got call from pharmacy later and informed that levaquin has interaction with amiodarone,QT prolongation.Alfa made aware .got an order to D/C levaquin.noted and carried out.continue to monitor.continuing with tobramycin and zosyn.
[2017-07-30] MEDS ORDERED: TOBRAMYCIN 80 MG in IV D5W 50 ML INH SCH (18:00)
[2017-07-30 19:43] VITALS: BP 109/60
[2017-07-30] MEDS: TOBRAMYCIN 80 MG in IV D5W 50 ML IV SCH (20:26)
[2017-07-30] MEDS: MULTIVIT, IRON, MIN NO. 8, FA 1 TAB GT SCH (20:51)
[2017-07-30] MEDS: DOCUSATE SODIUM LIQ 100 MG/10 ML UDC GT SCH (20:51)
[2017-07-30] MEDS: FINASTERIDE (5 MG) 5 MG TABLET GT SCH (20:51)
[2017-07-30] MEDS: ASCORBIC ACID 500 MG TABLET GT SCH (20:51)
[2017-07-30] MEDS: SENNOSIDES 8.6 MG TABLET PO SCH (21:26)
[2017-07-31] MEDS: ALBUTEROL FS 2.5 MG/3 ML VIAL.NEB NEB SCH ×4 (02:03→19:53)
[2017-07-31] MEDS: IPRATROPIUM NEB FS 0.5 MG/2.5 ML AMPUL.NEB NEB SCH ×4 (02:03→19:53)
[2017-07-31] MEDS: BACLOFEN (10 MG) 10 MG TABLET GT SCH ×3 (05:35→20:55)
[2017-07-31] MEDS: GLYCOPYRROLATE 1 MG TABLET GT SCH ×3 (05:35→17:28)
[2017-07-31] MEDS: LEVOTHYROXINE SODIUM 125 MCG TABLET GT SCH (05:35)
[2017-07-31] MEDS: RENAL NOVASOURCE 1,000 ML BOTTLE GT PRN (06:32)
[2017-07-31] MEDS: ZOSYN IVPB 2.25 G in IV D5W 50ml IV SCH ×5 (06:40→18:51)
[2017-07-31 07:51] VITALS: BP 120/76
[2017-07-31] MEDS: TOBRAMYCIN 80 MG in IV D5W 50 ML IV SCH (08:26)
[2017-07-31] MEDS: POLYVINYL ALCOHOL 15 ML BOTTLE EACHEYE SCH ×4 (09:40→20:55)
[2017-07-31] MEDS: AMIODARONE HCL 200 MG TABLET GT SCH (09:40)
[2017-07-31] MEDS: OMEPRAZOLE 10 MG CAPSULE.DR GT SCH (09:40)
[2017-07-31] MEDS: ACIDOPHILUS/BULGARICUS 1 EACH TAB.CHEW GT SCH (09:40)
[2017-07-31] MEDS: HYDROGEN PEROXIDE 480 ML BOTTLE TP SCH ×2 (09:40→20:58)
[2017-07-31] MEDS: POTASSIUM CHLORIDE 20 MEQ/15 ML ML GT SCH (09:40)
[2017-07-31] MEDS: POLYETHYLENE GLYCOL 3350 17 GM POWD.PACK GT SCH (09:40)
[2017-07-31] MEDS: HEPARIN SODIUM, PORCINE 5000 UNITS/1 ML VIAL SQ SCH ×2 (09:40→20:58)
[2017-07-31] MEDS: ZINC OXIDE 30 GM TUBE TP SCH ×2 (09:41→20:58)
[2017-07-31 16:11] LABS: CREATININE 1.6 mg/dL (0.6-1.3)
[2017-07-31 19:15] VITALS: BP 111/74
[2017-07-31] MEDS ORDERED: SULFAMETH/TRIMETH 800/160 MG 1 UDTAB TABLET PO SCH (20:00)
[2017-07-31] MEDS: FINASTERIDE (5 MG) 5 MG TABLET GT SCH (20:54)
[2017-07-31] MEDS: ASCORBIC ACID 500 MG TABLET GT SCH (20:55)
[2017-07-31] MEDS: MULTIVIT, IRON, MIN NO. 8, FA 1 TAB GT SCH (20:55)
[2017-07-31] MEDS: DOCUSATE SODIUM LIQ 100 MG/10 ML UDC GT SCH (20:55)
[2017-07-31] MEDS: MEROPENEM 500 MG in IV NS 0.9% 50 ML IV SCH (21:00)
--- NOTE | 2017-07-31 21:00 | NUR ---
RN NOTES Received new order from Millicent to d/c Zosyn 2.25gm IV and d/c Tobramycin IV. Start Merrem 500mg IV q8hr, Bactrim DS 1tab via gt, noted and carried out. Merrem 500mg IV and Bactrim started from ekit weith no A/R noted.
[2017-07-31] MEDS: SENNOSIDES 8.6 MG TABLET PO SCH (21:20)
[2017-08-01] MEDS: GLYCOPYRROLATE 1 MG TABLET GT SCH ×5 (00:20→23:17)
[2017-08-01] MEDS: ALBUTEROL FS 2.5 MG/3 ML VIAL.NEB NEB SCH ×4 (01:40→19:21)
[2017-08-01] MEDS: IPRATROPIUM NEB FS 0.5 MG/2.5 ML AMPUL.NEB NEB SCH ×4 (01:40→19:21)
[2017-08-01] MEDS: RENAL NOVASOURCE 1,000 ML BOTTLE GT PRN (04:23)
[2017-08-01] MEDS: MEROPENEM 500 MG in IV NS 0.9% 50 ML IV SCH ×3 (05:05→21:56)
[2017-08-01] MEDS: LEVOTHYROXINE SODIUM 125 MCG TABLET GT SCH (05:45)
[2017-08-01] MEDS: BACLOFEN (10 MG) 10 MG TABLET GT SCH ×3 (05:45→20:29)
[2017-08-01 08:06] VITALS: BP 103/64
[2017-08-01] MEDS: POLYVINYL ALCOHOL 15 ML BOTTLE EACHEYE SCH ×4 (09:52→20:29)
[2017-08-01] MEDS: AMIODARONE HCL 200 MG TABLET GT SCH (09:53)
[2017-08-01] MEDS: OMEPRAZOLE 10 MG CAPSULE.DR GT SCH (09:53)
[2017-08-01] MEDS: POTASSIUM CHLORIDE 20 MEQ/15 ML ML GT SCH (09:53)
[2017-08-01] MEDS: ACIDOPHILUS/BULGARICUS 1 EACH TAB.CHEW GT SCH (09:53)
[2017-08-01] MEDS: POLYETHYLENE GLYCOL 3350 17 GM POWD.PACK GT SCH (09:53)
[2017-08-01] MEDS: HEPARIN SODIUM, PORCINE 5000 UNITS/1 ML VIAL SQ SCH ×2 (09:53→20:29)
[2017-08-01] MEDS: ZINC OXIDE 30 GM TUBE TP SCH ×2 (09:53→20:29)
[2017-08-01] MEDS: HYDROGEN PEROXIDE 480 ML BOTTLE TP SCH ×2 (09:53→20:29)
[2017-08-01 19:50] VITALS: BP 111/59
[2017-08-01] MEDS: SULFAMETH/TRIMETH 800/160 MG 1 UDTAB TABLET PO SCH (20:00)
[2017-08-01] MEDS: FINASTERIDE (5 MG) 5 MG TABLET GT SCH (20:26)
[2017-08-01] MEDS: ASCORBIC ACID 500 MG TABLET GT SCH (20:29)
[2017-08-01] MEDS: DOCUSATE SODIUM LIQ 100 MG/10 ML UDC GT SCH (20:29)
[2017-08-01] MEDS: MULTIVIT, IRON, MIN NO. 8, FA 1 TAB GT SCH (20:29)
[2017-08-01] MEDS: SENNOSIDES 8.6 MG TABLET PO SCH (21:06)
[2017-08-02] MEDS: ALBUTEROL FS 2.5 MG/3 ML VIAL.NEB NEB SCH ×4 (02:09→19:25)
[2017-08-02] MEDS: IPRATROPIUM NEB FS 0.5 MG/2.5 ML AMPUL.NEB NEB SCH ×4 (02:09→19:25)
[2017-08-02] MEDS: MEROPENEM 500 MG in IV NS 0.9% 50 ML IV SCH ×3 (05:00→21:13)
[2017-08-02] MEDS: BACLOFEN (10 MG) 10 MG TABLET GT SCH ×3 (05:36→20:53)
[2017-08-02] MEDS: GLYCOPYRROLATE 1 MG TABLET GT SCH ×3 (05:37→17:20)
[2017-08-02] MEDS: LEVOTHYROXINE SODIUM 125 MCG TABLET GT SCH (05:38)
[2017-08-02] MEDS: RENAL NOVASOURCE 1,000 ML BOTTLE GT PRN (06:56)
[2017-08-02 07:40] VITALS: BP 120/77
[2017-08-02] MEDS: HYDROGEN PEROXIDE 480 ML BOTTLE TP SCH ×2 (09:00→20:56)
[2017-08-02] MEDS: HEPARIN SODIUM, PORCINE 5000 UNITS/1 ML VIAL SQ SCH ×2 (09:00→20:55)
[2017-08-02] MEDS: ACIDOPHILUS/BULGARICUS 1 EACH TAB.CHEW GT SCH (09:00)
[2017-08-02] MEDS: ZINC OXIDE 30 GM TUBE TP SCH ×2 (09:00→20:56)
[2017-08-02] MEDS: POLYETHYLENE GLYCOL 3350 17 GM POWD.PACK GT SCH (09:00)
[2017-08-02] MEDS: OMEPRAZOLE 10 MG CAPSULE.DR GT SCH (09:00)
[2017-08-02] MEDS: POTASSIUM CHLORIDE 20 MEQ/15 ML ML GT SCH (09:00)
[2017-08-02] MEDS: POLYVINYL ALCOHOL 15 ML BOTTLE EACHEYE SCH ×4 (09:00→20:52)
[2017-08-02] MEDS: AMIODARONE HCL 200 MG TABLET GT SCH (09:00)
[2017-08-02 20:00] VITALS: BP 118/67
[2017-08-02] MEDS: SULFAMETH/TRIMETH 800/160 MG 1 UDTAB TABLET PO SCH (20:51)
[2017-08-02] MEDS: FINASTERIDE (5 MG) 5 MG TABLET GT SCH (20:51)
[2017-08-02] MEDS: DOCUSATE SODIUM LIQ 100 MG/10 ML UDC GT SCH (20:53)
[2017-08-02] MEDS: MULTIVIT, IRON, MIN NO. 8, FA 1 TAB GT SCH (20:53)
[2017-08-02] MEDS: ASCORBIC ACID 500 MG TABLET GT SCH (20:54)
[2017-08-02] MEDS: SENNOSIDES 8.6 MG TABLET PO SCH (22:00)
[2017-08-03] MEDS: GLYCOPYRROLATE 1 MG TABLET GT SCH ×5 (00:15→23:16)
[2017-08-03] MEDS: ALBUTEROL FS 2.5 MG/3 ML VIAL.NEB NEB SCH ×4 (02:09→20:15)
[2017-08-03] MEDS: IPRATROPIUM NEB FS 0.5 MG/2.5 ML AMPUL.NEB NEB SCH ×4 (02:09→20:15)
[2017-08-03] MEDS: MEROPENEM 500 MG in IV NS 0.9% 50 ML IV SCH ×3 (05:06→21:24)
[2017-08-03] MEDS: LEVOTHYROXINE SODIUM 125 MCG TABLET GT SCH (05:42)
[2017-08-03] MEDS: BACLOFEN (10 MG) 10 MG TABLET GT SCH ×3 (05:42→21:13)
[2017-08-03] MEDS: RENAL NOVASOURCE 1,000 ML BOTTLE GT PRN (05:42)
[2017-08-03 08:03] VITALS: BP 101/56
[2017-08-03] MEDS: AMIODARONE HCL 200 MG TABLET GT SCH (09:50)
[2017-08-03] MEDS: ACIDOPHILUS/BULGARICUS 1 EACH TAB.CHEW GT SCH (09:50)
[2017-08-03] MEDS: POLYVINYL ALCOHOL 15 ML BOTTLE EACHEYE SCH ×4 (09:50→21:13)
[2017-08-03] MEDS: HYDROGEN PEROXIDE 480 ML BOTTLE TP SCH ×2 (09:51→21:14)
[2017-08-03] MEDS: HEPARIN SODIUM, PORCINE 5000 UNITS/1 ML VIAL SQ SCH ×2 (09:51→21:14)
[2017-08-03] MEDS: ZINC OXIDE 30 GM TUBE TP SCH ×2 (09:51→21:14)
[2017-08-03] MEDS: POTASSIUM CHLORIDE 20 MEQ/15 ML ML GT SCH (09:51)
[2017-08-03] MEDS: POLYETHYLENE GLYCOL 3350 17 GM POWD.PACK GT SCH (09:51)
[2017-08-03] MEDS: OMEPRAZOLE 10 MG CAPSULE.DR GT SCH (09:51)
[2017-08-03] MEDS: FINASTERIDE (5 MG) 5 MG TABLET GT SCH (20:00)
[2017-08-03] MEDS: SULFAMETH/TRIMETH 800/160 MG 1 UDTAB TABLET PO SCH (20:00)
[2017-08-03 20:02] VITALS: BP 116/65
[2017-08-03] MEDS: DOCUSATE SODIUM LIQ 100 MG/10 ML UDC GT SCH (21:13)
[2017-08-03] MEDS: ASCORBIC ACID 500 MG TABLET GT SCH (21:13)
[2017-08-03] MEDS: MULTIVIT, IRON, MIN NO. 8, FA 1 TAB GT SCH (21:13)
[2017-08-03] MEDS: SENNOSIDES 8.6 MG TABLET PO SCH (21:14)
[2017-08-04] MEDS: IPRATROPIUM NEB FS 0.5 MG/2.5 ML AMPUL.NEB NEB SCH ×4 (01:52→19:39)
[2017-08-04] MEDS: ALBUTEROL FS 2.5 MG/3 ML VIAL.NEB NEB SCH ×4 (01:52→19:39)
[2017-08-04] MEDS: MEROPENEM 500 MG in IV NS 0.9% 50 ML IV SCH ×3 (05:00→21:24)
[2017-08-04] MEDS: RENAL NOVASOURCE 1,000 ML BOTTLE GT PRN (05:12)
[2017-08-04] MEDS: BACLOFEN (10 MG) 10 MG TABLET GT SCH ×3 (05:12→21:22)
[2017-08-04] MEDS: GLYCOPYRROLATE 1 MG TABLET GT SCH ×3 (05:12→18:32)
[2017-08-04] MEDS: LEVOTHYROXINE SODIUM 125 MCG TABLET GT SCH (05:12)
[2017-08-04 07:38] VITALS: BP 109/77
[2017-08-04] MEDS: HEPARIN SODIUM, PORCINE 5000 UNITS/1 ML VIAL SQ SCH ×2 (09:00→21:22)
[2017-08-04] MEDS: OMEPRAZOLE 10 MG CAPSULE.DR GT SCH (09:00)
[2017-08-04] MEDS: POTASSIUM CHLORIDE 20 MEQ/15 ML ML GT SCH (09:00)
[2017-08-04] MEDS: ZINC OXIDE 30 GM TUBE TP SCH ×2 (09:00→21:24)
[2017-08-04] MEDS: ACIDOPHILUS/BULGARICUS 1 EACH TAB.CHEW GT SCH (09:00)
[2017-08-04] MEDS: POLYVINYL ALCOHOL 15 ML BOTTLE EACHEYE SCH ×4 (09:00→21:22)
[2017-08-04] MEDS: AMIODARONE HCL 200 MG TABLET GT SCH (09:00)
[2017-08-04] MEDS: POLYETHYLENE GLYCOL 3350 17 GM POWD.PACK GT SCH (09:00)
[2017-08-04] MEDS: HYDROGEN PEROXIDE 480 ML BOTTLE TP SCH ×2 (09:00→21:22)
[2017-08-04 19:54] VITALS: BP 100/63
[2017-08-04] MEDS: SULFAMETH/TRIMETH 800/160 MG 1 UDTAB TABLET PO SCH (20:00)
[2017-08-04] MEDS: FINASTERIDE (5 MG) 5 MG TABLET GT SCH (20:00)
[2017-08-04] MEDS: ASCORBIC ACID 500 MG TABLET GT SCH (21:22)
[2017-08-04] MEDS: MULTIVIT, IRON, MIN NO. 8, FA 1 TAB GT SCH (21:22)
[2017-08-04] MEDS: DOCUSATE SODIUM LIQ 100 MG/10 ML UDC GT SCH (21:22)
[2017-08-04] MEDS: SENNOSIDES 8.6 MG TABLET PO SCH (21:24)
[2017-08-05] MEDS: GLYCOPYRROLATE 1 MG TABLET GT SCH ×4 (00:56→17:08)
[2017-08-05] MEDS: RENAL NOVASOURCE 1,000 ML BOTTLE GT PRN (01:53)
[2017-08-05] MEDS: ALBUTEROL FS 2.5 MG/3 ML VIAL.NEB NEB SCH ×4 (02:08→19:57)
[2017-08-05] MEDS: IPRATROPIUM NEB FS 0.5 MG/2.5 ML AMPUL.NEB NEB SCH ×4 (02:08→19:57)
[2017-08-05] MEDS: MEROPENEM 500 MG in IV NS 0.9% 50 ML IV SCH ×3 (04:06→21:00)
[2017-08-05] MEDS: LEVOTHYROXINE SODIUM 125 MCG TABLET GT SCH (05:16)
[2017-08-05] MEDS: BACLOFEN (10 MG) 10 MG TABLET GT SCH ×3 (05:16→20:54)
[2017-08-05 07:55] VITALS: BP 102/60
[2017-08-05] MEDS: POLYVINYL ALCOHOL 15 ML BOTTLE EACHEYE SCH ×4 (09:00→20:54)
[2017-08-05] MEDS: POLYETHYLENE GLYCOL 3350 17 GM POWD.PACK GT SCH (09:00)
[2017-08-05] MEDS: HYDROGEN PEROXIDE 480 ML BOTTLE TP SCH ×2 (09:00→20:55)
[2017-08-05] MEDS: POTASSIUM CHLORIDE 20 MEQ/15 ML ML GT SCH (09:00)
[2017-08-05] MEDS: OMEPRAZOLE 10 MG CAPSULE.DR GT SCH (09:00)
[2017-08-05] MEDS: AMIODARONE HCL 200 MG TABLET GT SCH (09:00)
[2017-08-05] MEDS: ACIDOPHILUS/BULGARICUS 1 EACH TAB.CHEW GT SCH (09:00)
[2017-08-05] MEDS: ZINC OXIDE 30 GM TUBE TP SCH ×2 (09:00→20:55)
[2017-08-05] MEDS: HEPARIN SODIUM, PORCINE 5000 UNITS/1 ML VIAL SQ SCH ×2 (09:00→20:55)
[2017-08-05 19:31] VITALS: BP 107/63
[2017-08-05] MEDS: FINASTERIDE (5 MG) 5 MG TABLET GT SCH (20:53)
[2017-08-05] MEDS: SULFAMETH/TRIMETH 800/160 MG 1 UDTAB TABLET PO SCH (20:53)
[2017-08-05] MEDS: DOCUSATE SODIUM LIQ 100 MG/10 ML UDC GT SCH (20:54)
[2017-08-05] MEDS: ASCORBIC ACID 500 MG TABLET GT SCH (20:54)
[2017-08-05] MEDS: MULTIVIT, IRON, MIN NO. 8, FA 1 TAB GT SCH (20:54)
[2017-08-05] MEDS: SENNOSIDES 8.6 MG TABLET PO SCH (22:23)
[2017-08-06] MEDS: GLYCOPYRROLATE 1 MG TABLET GT SCH ×4 (00:27→17:25)
[2017-08-06] MEDS: IPRATROPIUM NEB FS 0.5 MG/2.5 ML AMPUL.NEB NEB SCH ×4 (01:25→19:41)
[2017-08-06] MEDS: ALBUTEROL FS 2.5 MG/3 ML VIAL.NEB NEB SCH ×4 (01:25→19:41)
[2017-08-06] MEDS: RENAL NOVASOURCE 1,000 ML BOTTLE GT PRN (04:36)
[2017-08-06] MEDS: LEVOTHYROXINE SODIUM 125 MCG TABLET GT SCH (05:39)
[2017-08-06] MEDS: BACLOFEN (10 MG) 10 MG TABLET GT SCH ×3 (05:39→20:45)
[2017-08-06] MEDS: MEROPENEM 500 MG in IV NS 0.9% 50 ML IV SCH ×3 (06:11→21:00)
[2017-08-06] MEDS: OMEPRAZOLE 10 MG CAPSULE.DR GT SCH (09:00)
[2017-08-06] MEDS: POLYVINYL ALCOHOL 15 ML BOTTLE EACHEYE SCH ×4 (09:00→20:45)
[2017-08-06] MEDS: ACIDOPHILUS/BULGARICUS 1 EACH TAB.CHEW GT SCH (09:00)
[2017-08-06] MEDS: AMIODARONE HCL 200 MG TABLET GT SCH (09:00)
[2017-08-06] MEDS: HYDROGEN PEROXIDE 480 ML BOTTLE TP SCH ×2 (09:00→20:49)
[2017-08-06] MEDS: POLYETHYLENE GLYCOL 3350 17 GM POWD.PACK GT SCH (09:00)
[2017-08-06] MEDS: POTASSIUM CHLORIDE 20 MEQ/15 ML ML GT SCH (09:00)
[2017-08-06] MEDS: ZINC OXIDE 30 GM TUBE TP SCH ×2 (09:00→20:49)
[2017-08-06] MEDS: HEPARIN SODIUM, PORCINE 5000 UNITS/1 ML VIAL SQ SCH ×2 (09:00→20:49)
[2017-08-06 11:58] LABS: CALCIUM, SERUM 9.6 mg/dL (8.5-10.1); POTASSIUM 5.6 mmol/L (3.5-5.1)
[2017-08-06 12:03] LABS: BASOPHILS % (AUTO) 0.1 % (0.0-2.0); EOSINOPHILS # (AUTO) 0.2 /CMM (0.0-0.7); EOSINOPHILS % (AUTO) 0.8 % (0.0-6.0); HEMATOCRIT 32 % (39-51); HEMOGLOBIN 9.9 g/dL (13.5-17.5); LYMPHOCYTES # (AUTO) 2.2 /CMM (0.8-4.8); LYMPHOCYTES % (AUTO) 10.1 % (20.0-44.0); MEAN CORPUSCULAR HEMOGLOBIN 23 PG (26.0-33.0); MEAN CORPUSCULAR HGB CONC 31 g/dl (31.0-36.0); MEAN CORPUSCULAR VOLUME 74 fL (80-96); MONOCYTES # (AUTO) 2.3 /CMM (0.1-1.30); MONOCYTES % (AUTO) 10.3 % (2.0-12.0); NEUTROPHILS # (AUTO) 17.2 /CMM (1.8-8.9); NEUTROPHILS % (AUTO) 78.7 % (43.0-81.0); PLATELET COUNT (AUTO) 664 /CMM (150-450); RDW COEFFICIENT OF VARIATION 19.4 (11.5-15.0); WHITE BLOOD COUNT (AUTO) 21.9 K/uL (4.3-11.0)
--- NOTE | 2017-08-06 12:30 | NUR ---
Clarified stop date for ATB Merrem and Bactrim with CARMELITA Ricks ID with new order to continue for 5 more days and to do CBC and BMP. Order noted and carried out.
[2017-08-06 13:04] LABS: LYMPHOCYTES % (MANUAL) 12 % (16-48); MONOCYTES % (MANUAL) 16 % (0-11.0); NEUTROPHILS % (MANUAL) 72 (42-76)
--- NOTE | 2017-08-06 14:00 | NUR ---
Seen and examined by Vivian Posada NP for Dr. David NNO given.
--- NOTE | 2017-08-06 17:30 | NUR ---
Reported CBC and BMP result to Vivian Posada NP awaiting for call back.
--- NOTE | 2017-08-06 19:00 | NUR ---
Received a call from Dr. David acknowledging that he received CBC and BMP result, WBC 21.9, stated to repeat CBC on Sunday08/08/17. Resident remain on IV ATB Merrem and Bactrim via GT.
[2017-08-06 20:08] VITALS: BP 126/74
[2017-08-06] MEDS: SULFAMETH/TRIMETH 800/160 MG 1 UDTAB TABLET PO SCH (20:44)
[2017-08-06] MEDS: FINASTERIDE (5 MG) 5 MG TABLET GT SCH (20:44)
[2017-08-06] MEDS: MULTIVIT, IRON, MIN NO. 8, FA 1 TAB GT SCH (20:45)
[2017-08-06] MEDS: DOCUSATE SODIUM LIQ 100 MG/10 ML UDC GT SCH (20:45)
[2017-08-06] MEDS: ASCORBIC ACID 500 MG TABLET GT SCH (20:46)
[2017-08-06] MEDS: SENNOSIDES 8.6 MG TABLET PO SCH (22:23)
[2017-08-07] MEDS: GLYCOPYRROLATE 1 MG TABLET GT SCH ×4 (00:20→17:19)
[2017-08-07] MEDS: IPRATROPIUM NEB FS 0.5 MG/2.5 ML AMPUL.NEB NEB SCH ×4 (01:17→19:43)
[2017-08-07] MEDS: ALBUTEROL FS 2.5 MG/3 ML VIAL.NEB NEB SCH ×4 (01:17→19:43)
[2017-08-07] MEDS: LEVOTHYROXINE SODIUM 125 MCG TABLET GT SCH (05:49)
[2017-08-07] MEDS: BACLOFEN (10 MG) 10 MG TABLET GT SCH ×3 (05:49→20:57)
[2017-08-07] MEDS: RENAL NOVASOURCE 1,000 ML BOTTLE GT PRN (05:50)
[2017-08-07] MEDS: MEROPENEM 500 MG in IV NS 0.9% 50 ML IV SCH ×3 (05:53→21:24)
[2017-08-07 07:55] VITALS: BP 110/68
[2017-08-07] MEDS: POLYVINYL ALCOHOL 15 ML BOTTLE EACHEYE SCH ×4 (09:07→20:55)
[2017-08-07] MEDS: ACIDOPHILUS/BULGARICUS 1 EACH TAB.CHEW GT SCH (09:09)
[2017-08-07] MEDS: POLYETHYLENE GLYCOL 3350 17 GM POWD.PACK GT SCH (09:09)
[2017-08-07] MEDS: AMIODARONE HCL 200 MG TABLET GT SCH (09:09)
[2017-08-07] MEDS: POTASSIUM CHLORIDE 20 MEQ/15 ML ML GT SCH (09:11)
[2017-08-07] MEDS: OMEPRAZOLE 10 MG CAPSULE.DR GT SCH (09:11)
[2017-08-07] MEDS: HYDROGEN PEROXIDE 480 ML BOTTLE TP SCH ×2 (09:13→21:00)
[2017-08-07] MEDS: HEPARIN SODIUM, PORCINE 5000 UNITS/1 ML VIAL SQ SCH ×2 (09:13→21:00)
[2017-08-07] MEDS: ZINC OXIDE 30 GM TUBE TP SCH ×2 (09:13→21:00)
--- NOTE | 2017-08-07 18:45 | NUR ---
Notified CARMELITA Ricks that pt's WBC was 21.9. Pt still on Merrem and CBC will be done again tomorrow. No new order.
[2017-08-07 19:57] VITALS: BP 108/67
[2017-08-07] MEDS: SULFAMETH/TRIMETH 800/160 MG 1 UDTAB TABLET PO SCH (20:55)
[2017-08-07] MEDS: FINASTERIDE (5 MG) 5 MG TABLET GT SCH (20:55)
[2017-08-07] MEDS: DOCUSATE SODIUM LIQ 100 MG/10 ML UDC GT SCH (20:57)
[2017-08-07] MEDS: MULTIVIT, IRON, MIN NO. 8, FA 1 TAB GT SCH (20:58)
[2017-08-07] MEDS: ASCORBIC ACID 500 MG TABLET GT SCH (20:58)
[2017-08-07] MEDS: SENNOSIDES 8.6 MG TABLET PO SCH (21:00)
[2017-08-08] MEDS: GLYCOPYRROLATE 1 MG TABLET GT SCH ×5 (00:09→23:49)
[2017-08-08] MEDS: ALBUTEROL FS 2.5 MG/3 ML VIAL.NEB NEB SCH ×4 (01:54→19:18)
[2017-08-08] MEDS: IPRATROPIUM NEB FS 0.5 MG/2.5 ML AMPUL.NEB NEB SCH ×4 (01:54→19:18)
[2017-08-08 05:02] LABS: BASOPHILS # (AUTO) 0.2 /CMM (0.0-0.2); BASOPHILS % (AUTO) 1.2 % (0.0-2.0); EOSINOPHILS # (AUTO) 0.2 /CMM (0.0-0.7); EOSINOPHILS % (AUTO) 1.2 % (0.0-6.0); HEMATOCRIT 33 % (39-51); HEMOGLOBIN 10.3 g/dL (13.5-17.5); LYMPHOCYTES # (AUTO) 3.7 /CMM (0.8-4.8); LYMPHOCYTES % (AUTO) 18.2 % (20.0-44.0); MEAN CORPUSCULAR HEMOGLOBIN 23 PG (26.0-33.0); MEAN CORPUSCULAR HGB CONC 32 g/dl (31.0-36.0); MEAN CORPUSCULAR VOLUME 74 fL (80-96); MONOCYTES # (AUTO) 2.6 /CMM (0.1-1.30); MONOCYTES % (AUTO) 12.7 % (2.0-12.0); NEUTROPHILS # (AUTO) 13.4 /CMM (1.8-8.9); NEUTROPHILS % (AUTO) 66.7 % (43.0-81.0); PLATELET COUNT (AUTO) 601 /CMM (150-450); RDW COEFFICIENT OF VARIATION 19.5 (11.5-15.0); RED BLOOD CELL COUNT(AUTO) 4.43 MIL/uL (4.5-6.0); WHITE BLOOD COUNT (AUTO) 20.1 K/uL (4.3-11.0)
[2017-08-08 05:24] LABS: BAND % (MANUAL) 3 % (0.0-5.0); EOSINOPHILS % (MANUAL) 1 % (0-4); LYMPHOCYTES % (MANUAL) 15 % (16-48); MONOCYTES % (MANUAL) 12 % (0-11.0); NEUTROPHILS % (MANUAL) 69 (42-76)
[2017-08-08] MEDS: RENAL NOVASOURCE 1,000 ML BOTTLE GT PRN (05:49)
[2017-08-08] MEDS: BACLOFEN (10 MG) 10 MG TABLET GT SCH ×3 (05:50→20:35)
[2017-08-08] MEDS: LEVOTHYROXINE SODIUM 125 MCG TABLET GT SCH (05:50)
[2017-08-08 07:52] VITALS: BP 112/71
[2017-08-08] MEDS: POLYVINYL ALCOHOL 15 ML BOTTLE EACHEYE SCH ×4 (09:54→20:35)
[2017-08-08] MEDS: ACIDOPHILUS/BULGARICUS 1 EACH TAB.CHEW GT SCH (09:55)
[2017-08-08] MEDS: OMEPRAZOLE 10 MG CAPSULE.DR GT SCH (09:55)
[2017-08-08] MEDS: ZINC OXIDE 30 GM TUBE TP SCH ×2 (09:55→20:36)
[2017-08-08] MEDS: POLYETHYLENE GLYCOL 3350 17 GM POWD.PACK GT SCH (09:55)
[2017-08-08] MEDS: HEPARIN SODIUM, PORCINE 5000 UNITS/1 ML VIAL SQ SCH ×2 (09:55→20:36)
[2017-08-08] MEDS: HYDROGEN PEROXIDE 480 ML BOTTLE TP SCH ×2 (09:55→20:36)
[2017-08-08] MEDS: AMIODARONE HCL 200 MG TABLET GT SCH (09:55)
[2017-08-08] MEDS: POTASSIUM CHLORIDE 20 MEQ/15 ML ML GT SCH (09:55)
--- NOTE | 2017-08-08 10:39 | NUR ---
WOUND CARE CONSULT: PT SEEN FOR RE-EVALUATION OF SACRAL/BUTTOCKS SKIN DISCOLORATION. PT CONTINUES TO PRESENT WITH DISCOLORATION OF SKIN ON SACRAL/BUTTOCKS REGION. SKIN IS INTACT. PT IS INCONTINENT. CONTINUE ALL SKIN PROTECTION MEASURES. DISCUSSED WITH NURSING STAFF. WILL SEE PRN. GRAY IN AGREEMENT WITH PLAN OF CARE.
[2017-08-08] MEDS: MEROPENEM 500 MG in IV NS 0.9% 50 ML IV SCH ×2 (13:00→21:00)
--- NOTE | 2017-08-08 19:00 | NUR ---
Seen by Vivian Posada NP for BISI Carvajal given at this time. CARMELITA Ricks reviewed patient's labs with new order for BC culture, urine Cx. Endorsed to incoming shift to collect specimen.
[2017-08-08] MEDS: ASCORBIC ACID 500 MG TABLET GT SCH (20:35)
[2017-08-08] MEDS: MULTIVIT, IRON, MIN NO. 8, FA 1 TAB GT SCH (20:35)
[2017-08-08] MEDS: SULFAMETH/TRIMETH 800/160 MG 1 UDTAB TABLET PO SCH (20:35)
[2017-08-08] MEDS: FINASTERIDE (5 MG) 5 MG TABLET GT SCH (20:35)
[2017-08-08] MEDS: DOCUSATE SODIUM LIQ 100 MG/10 ML UDC GT SCH (20:35)
[2017-08-08] MEDS: SENNOSIDES 8.6 MG TABLET PO SCH (21:31)
--- NOTE | 2017-08-08 21:42 | NUR ---
Pt made aware of new order for blood culture,CXR and urine culture to follow up.
[2017-08-08 23:44] VITALS: BP 129/66
[2017-08-09] MEDS: ALBUTEROL FS 2.5 MG/3 ML VIAL.NEB NEB SCH ×4 (01:26→19:20)
[2017-08-09] MEDS: IPRATROPIUM NEB FS 0.5 MG/2.5 ML AMPUL.NEB NEB SCH ×4 (01:26→19:20)
[2017-08-09] MEDS: MEROPENEM 500 MG in IV NS 0.9% 50 ML IV SCH ×3 (04:58→20:56)
[2017-08-09] MEDS: LEVOTHYROXINE SODIUM 125 MCG TABLET GT SCH (05:15)
[2017-08-09] MEDS: GLYCOPYRROLATE 1 MG TABLET GT SCH ×3 (05:15→18:03)
[2017-08-09] MEDS: BACLOFEN (10 MG) 10 MG TABLET GT SCH ×3 (05:15→21:01)
[2017-08-09 07:48] VITALS: BP 100/67
[2017-08-09] MEDS: POLYVINYL ALCOHOL 15 ML BOTTLE EACHEYE SCH ×4 (09:39→21:01)
[2017-08-09] MEDS: AMIODARONE HCL 200 MG TABLET GT SCH (09:40)
[2017-08-09] MEDS: POTASSIUM CHLORIDE 20 MEQ/15 ML ML GT SCH (09:40)
[2017-08-09] MEDS: POLYETHYLENE GLYCOL 3350 17 GM POWD.PACK GT SCH (09:40)
[2017-08-09] MEDS: ACIDOPHILUS/BULGARICUS 1 EACH TAB.CHEW GT SCH (09:40)
[2017-08-09] MEDS: OMEPRAZOLE 10 MG CAPSULE.DR GT SCH (09:41)
[2017-08-09] MEDS: HEPARIN SODIUM, PORCINE 5000 UNITS/1 ML VIAL SQ SCH ×2 (09:42→21:02)
[2017-08-09] MEDS: ZINC OXIDE 30 GM TUBE TP SCH ×2 (09:44→21:02)
[2017-08-09] MEDS: HYDROGEN PEROXIDE 480 ML BOTTLE TP SCH ×2 (09:50→21:02)
[2017-08-09] MEDS: SULFAMETH/TRIMETH 800/160 MG 1 UDTAB TABLET PO SCH (20:00)
[2017-08-09] MEDS: FINASTERIDE (5 MG) 5 MG TABLET GT SCH (20:00)
[2017-08-09] MEDS: ASCORBIC ACID 500 MG TABLET GT SCH (21:01)
[2017-08-09] MEDS: MULTIVIT, IRON, MIN NO. 8, FA 1 TAB GT SCH (21:01)
[2017-08-09] MEDS: DOCUSATE SODIUM LIQ 100 MG/10 ML UDC GT SCH (21:01)
[2017-08-09] MEDS: SENNOSIDES 8.6 MG TABLET PO SCH (21:02)
[2017-08-09 22:34] VITALS: BP 113/66
[2017-08-10] MEDS: GLYCOPYRROLATE 1 MG TABLET GT SCH ×5 (00:14→23:51)
[2017-08-10] MEDS: ALBUTEROL FS 2.5 MG/3 ML VIAL.NEB NEB SCH ×4 (02:12→19:24)
[2017-08-10] MEDS: IPRATROPIUM NEB FS 0.5 MG/2.5 ML AMPUL.NEB NEB SCH ×4 (02:12→19:24)
[2017-08-10] MEDS: MEROPENEM 500 MG in IV NS 0.9% 50 ML IV SCH ×3 (05:04→20:53)
[2017-08-10] MEDS: BACLOFEN (10 MG) 10 MG TABLET GT SCH ×3 (05:39→21:07)
[2017-08-10] MEDS: LEVOTHYROXINE SODIUM 125 MCG TABLET GT SCH (05:39)
[2017-08-10 08:27] VITALS: BP 120/56
[2017-08-10] MEDS: POLYVINYL ALCOHOL 15 ML BOTTLE EACHEYE SCH ×4 (09:07→21:07)
[2017-08-10] MEDS: AMIODARONE HCL 200 MG TABLET GT SCH (09:08)
[2017-08-10] MEDS: ACIDOPHILUS/BULGARICUS 1 EACH TAB.CHEW GT SCH (09:09)
[2017-08-10] MEDS: POLYETHYLENE GLYCOL 3350 17 GM POWD.PACK GT SCH (09:10)
[2017-08-10] MEDS: OMEPRAZOLE 10 MG CAPSULE.DR GT SCH (09:10)
[2017-08-10] MEDS: POTASSIUM CHLORIDE 20 MEQ/15 ML ML GT SCH (09:10)
[2017-08-10] MEDS: HYDROGEN PEROXIDE 480 ML BOTTLE TP SCH ×2 (09:11→21:08)
[2017-08-10] MEDS: ZINC OXIDE 30 GM TUBE TP SCH ×2 (09:11→21:08)
[2017-08-10] MEDS: HEPARIN SODIUM, PORCINE 5000 UNITS/1 ML VIAL SQ SCH ×2 (09:11→21:08)
[2017-08-10] MEDS: RENAL NOVASOURCE 1,000 ML BOTTLE GT PRN (16:00)
[2017-08-10] MEDS: FINASTERIDE (5 MG) 5 MG TABLET GT SCH (20:00)
[2017-08-10] MEDS: SULFAMETH/TRIMETH 800/160 MG 1 UDTAB TABLET PO SCH (20:00)
[2017-08-10] MEDS: DOCUSATE SODIUM LIQ 100 MG/10 ML UDC GT SCH (21:07)
[2017-08-10] MEDS: SENNOSIDES 8.6 MG TABLET PO SCH (21:08)
[2017-08-10] MEDS: ASCORBIC ACID 500 MG TABLET GT SCH (21:08)
[2017-08-10] MEDS: MULTIVIT, IRON, MIN NO. 8, FA 1 TAB GT SCH (21:08)
[2017-08-10 23:52] VITALS: BP 106/63
[2017-08-11] MEDS: IPRATROPIUM NEB FS 0.5 MG/2.5 ML AMPUL.NEB NEB SCH ×4 (01:31→19:30)
[2017-08-11] MEDS: ALBUTEROL FS 2.5 MG/3 ML VIAL.NEB NEB SCH ×4 (01:31→19:30)
[2017-08-11] MEDS: BACLOFEN (10 MG) 10 MG TABLET GT SCH ×3 (05:39→21:25)
[2017-08-11] MEDS: LEVOTHYROXINE SODIUM 125 MCG TABLET GT SCH (05:39)
[2017-08-11] MEDS: GLYCOPYRROLATE 1 MG TABLET GT SCH ×3 (05:39→17:02)
[2017-08-11] MEDS: BISACODYL SUPP (10 MG) 10 MG/SUPP.RECT SUPP.RECT RC PRN (06:28)
[2017-08-11 07:59] VITALS: BP 109/70
[2017-08-11] MEDS: POLYVINYL ALCOHOL 15 ML BOTTLE EACHEYE SCH ×4 (09:33→21:25)
[2017-08-11] MEDS: OMEPRAZOLE 10 MG CAPSULE.DR GT SCH (09:35)
[2017-08-11] MEDS: AMIODARONE HCL 200 MG TABLET GT SCH (09:35)
[2017-08-11] MEDS: ACIDOPHILUS/BULGARICUS 1 EACH TAB.CHEW GT SCH (09:35)
[2017-08-11] MEDS: POLYETHYLENE GLYCOL 3350 17 GM POWD.PACK GT SCH (09:35)
[2017-08-11] MEDS: POTASSIUM CHLORIDE 20 MEQ/15 ML ML GT SCH (09:35)
[2017-08-11] MEDS: HEPARIN SODIUM, PORCINE 5000 UNITS/1 ML VIAL SQ SCH ×2 (09:38→21:26)
[2017-08-11] MEDS: HYDROGEN PEROXIDE 480 ML BOTTLE TP SCH ×2 (09:38→21:26)
[2017-08-11] MEDS: ZINC OXIDE 30 GM TUBE TP SCH ×2 (09:38→21:26)
--- NOTE | 2017-08-11 13:04 | NUR ---
Seen and examined by Dr. Paniagua, reviewed chest X ray result CBC and BMP on 08/09, He stated elevated WBC of 20.1 may not be a true infection, preliminary urine cx negative, BC negative. new order given to do CT scan of the chest without contrast which is OK to do on Sunday. Resident's Fanny Bradley notified of lab result and CT scan order. Appreciative of the call.
[2017-08-11] MEDS: RENAL NOVASOURCE 1,000 ML BOTTLE GT PRN (17:03)
[2017-08-11 19:55] VITALS: BP 132/74
[2017-08-11] MEDS: FINASTERIDE (5 MG) 5 MG TABLET GT SCH (20:00)
[2017-08-11] MEDS: DOCUSATE SODIUM LIQ 100 MG/10 ML UDC GT SCH (21:25)
[2017-08-11] MEDS: MULTIVIT, IRON, MIN NO. 8, FA 1 TAB GT SCH (21:25)
[2017-08-11] MEDS: ASCORBIC ACID 500 MG TABLET GT SCH (21:26)
[2017-08-11] MEDS: SENNOSIDES 8.6 MG TABLET PO SCH (21:26)
[2017-08-12] MEDS: IPRATROPIUM NEB FS 0.5 MG/2.5 ML AMPUL.NEB NEB SCH ×4 (01:26→19:40)
[2017-08-12] MEDS: ALBUTEROL FS 2.5 MG/3 ML VIAL.NEB NEB SCH ×4 (01:26→19:40)
[2017-08-12] MEDS: BACLOFEN (10 MG) 10 MG TABLET GT SCH ×3 (05:00→21:13)
[2017-08-12] MEDS: GLYCOPYRROLATE 1 MG TABLET GT SCH ×4 (06:05→17:50)
[2017-08-12] MEDS: LEVOTHYROXINE SODIUM 125 MCG TABLET GT SCH (06:05)
[2017-08-12 07:41] VITALS: BP 106/67
[2017-08-12] MEDS: POTASSIUM CHLORIDE 20 MEQ/15 ML ML GT SCH (09:00)
[2017-08-12] MEDS: POLYVINYL ALCOHOL 15 ML BOTTLE EACHEYE SCH ×4 (09:00→21:12)
[2017-08-12] MEDS: ZINC OXIDE 30 GM TUBE TP SCH ×2 (09:00→21:13)
[2017-08-12] MEDS: HEPARIN SODIUM, PORCINE 5000 UNITS/1 ML VIAL SQ SCH ×2 (09:00→21:13)
[2017-08-12] MEDS: POLYETHYLENE GLYCOL 3350 17 GM POWD.PACK GT SCH (09:00)
[2017-08-12] MEDS: OMEPRAZOLE 10 MG CAPSULE.DR GT SCH (09:00)
[2017-08-12] MEDS: AMIODARONE HCL 200 MG TABLET GT SCH (09:00)
[2017-08-12] MEDS: HYDROGEN PEROXIDE 480 ML BOTTLE TP SCH ×2 (09:00→21:13)
[2017-08-12] MEDS: ACIDOPHILUS/BULGARICUS 1 EACH TAB.CHEW GT SCH (09:00)
[2017-08-12] MEDS: FINASTERIDE (5 MG) 5 MG TABLET GT SCH (20:00)
[2017-08-12] MEDS: DOCUSATE SODIUM LIQ 100 MG/10 ML UDC GT SCH (21:12)
[2017-08-12] MEDS: SENNOSIDES 8.6 MG TABLET PO SCH (21:13)
[2017-08-12] MEDS: MULTIVIT, IRON, MIN NO. 8, FA 1 TAB GT SCH (21:13)
[2017-08-12] MEDS: ASCORBIC ACID 500 MG TABLET GT SCH (21:13)
[2017-08-12 21:43] VITALS: BP 111/71
[2017-08-13] MEDS: GLYCOPYRROLATE 1 MG TABLET GT SCH ×4 (00:13→17:40)
[2017-08-13] MEDS: IPRATROPIUM NEB FS 0.5 MG/2.5 ML AMPUL.NEB NEB SCH ×4 (01:51→19:57)
[2017-08-13] MEDS: ALBUTEROL FS 2.5 MG/3 ML VIAL.NEB NEB SCH ×4 (01:51→19:57)
[2017-08-13] MEDS: LEVOTHYROXINE SODIUM 125 MCG TABLET GT SCH (05:19)
[2017-08-13] MEDS: BACLOFEN (10 MG) 10 MG TABLET GT SCH ×3 (05:19→21:24)
[2017-08-13] MEDS: POLYETHYLENE GLYCOL 3350 17 GM POWD.PACK GT SCH (09:39)
[2017-08-13] MEDS: AMIODARONE HCL 200 MG TABLET GT SCH (09:39)
[2017-08-13] MEDS: POTASSIUM CHLORIDE 20 MEQ/15 ML ML GT SCH (09:39)
[2017-08-13] MEDS: POLYVINYL ALCOHOL 15 ML BOTTLE EACHEYE SCH ×4 (09:39→21:24)
[2017-08-13] MEDS: ACIDOPHILUS/BULGARICUS 1 EACH TAB.CHEW GT SCH (09:39)
[2017-08-13] MEDS: OMEPRAZOLE 10 MG CAPSULE.DR GT SCH (09:39)
[2017-08-13] MEDS: ZINC OXIDE 30 GM TUBE TP SCH ×2 (09:40→21:24)
[2017-08-13] MEDS: HYDROGEN PEROXIDE 480 ML BOTTLE TP SCH ×2 (09:40→21:24)
[2017-08-13] MEDS: HEPARIN SODIUM, PORCINE 5000 UNITS/1 ML VIAL SQ SCH ×2 (09:40→21:24)
--- NOTE | 2017-08-13 11:00 | NUR ---
According to admitting department, authorization from pt's insurance is needed for chest CT without contrast. Notified Dr. Paniagua that CT will not be done today since admitting still has to work on getting an authorization. Dr. Paniagua said to cancel the CT scan order. Notified admitting department (Amber) and pt's .
[2017-08-13 11:05] VITALS: BP 98/55
[2017-08-13] MEDS: FINASTERIDE (5 MG) 5 MG TABLET GT SCH (20:00)
[2017-08-13] MEDS: MULTIVIT, IRON, MIN NO. 8, FA 1 TAB GT SCH (21:24)
[2017-08-13] MEDS: DOCUSATE SODIUM LIQ 100 MG/10 ML UDC GT SCH (21:24)
[2017-08-13] MEDS: ASCORBIC ACID 500 MG TABLET GT SCH (21:24)
[2017-08-13] MEDS: SENNOSIDES 8.6 MG TABLET PO SCH (21:24)
[2017-08-14] MEDS: GLYCOPYRROLATE 1 MG TABLET GT SCH ×5 (00:27→23:53)
[2017-08-14] MEDS: ALBUTEROL FS 2.5 MG/3 ML VIAL.NEB NEB SCH ×4 (01:48→19:34)
[2017-08-14] MEDS: IPRATROPIUM NEB FS 0.5 MG/2.5 ML AMPUL.NEB NEB SCH ×4 (01:48→19:34)
[2017-08-14] MEDS: LEVOTHYROXINE SODIUM 125 MCG TABLET GT SCH (05:39)
[2017-08-14] MEDS: BACLOFEN (10 MG) 10 MG TABLET GT SCH ×3 (05:39→20:17)
[2017-08-14 08:12] VITALS: BP 107/65
[2017-08-14] MEDS: ERGOCALCIFEROL (VITAMIN D2) 8,000 UNIT/ML GT SCH (09:00)
[2017-08-14] MEDS: POLYVINYL ALCOHOL 15 ML BOTTLE EACHEYE SCH ×4 (09:20→20:17)
[2017-08-14] MEDS: AMIODARONE HCL 200 MG TABLET GT SCH (09:20)
[2017-08-14] MEDS: POLYETHYLENE GLYCOL 3350 17 GM POWD.PACK GT SCH (09:21)
[2017-08-14] MEDS: POTASSIUM CHLORIDE 20 MEQ/15 ML ML GT SCH (09:21)
[2017-08-14] MEDS: ACIDOPHILUS/BULGARICUS 1 EACH TAB.CHEW GT SCH (09:21)
[2017-08-14] MEDS: HYDROGEN PEROXIDE 480 ML BOTTLE TP SCH ×2 (09:22→20:17)
[2017-08-14] MEDS: HEPARIN SODIUM, PORCINE 5000 UNITS/1 ML VIAL SQ SCH ×2 (09:22→20:17)
[2017-08-14] MEDS: OMEPRAZOLE 10 MG CAPSULE.DR GT SCH (09:22)
[2017-08-14] MEDS: ZINC OXIDE 30 GM TUBE TP SCH ×2 (09:23→20:17)
--- NOTE | 2017-08-14 10:00 | NUR ---
Call made to pharmacy ,requested to deliver VIT D 48,000 U.waiting to deliver medication.
--- NOTE | 2017-08-14 10:30 | NUR ---
Relayed TSH level 4.[address] Reeder. Notified him that pt is on Levothyroxine 125 mcg GT daily, previous TSH in February was 0.785. No new order.
--- NOTE | 2017-08-14 19:18 | NUR ---
Unable to give VIT D for resident during the shift,waiting for medication to be deliver by the pharmacy.call made to pharmacy made aware about the medication .
[2017-08-14] MEDS: ASCORBIC ACID 500 MG TABLET GT SCH (20:17)
[2017-08-14] MEDS: FINASTERIDE (5 MG) 5 MG TABLET GT SCH (20:17)
[2017-08-14] MEDS: DOCUSATE SODIUM LIQ 100 MG/10 ML UDC GT SCH (20:17)
[2017-08-14] MEDS: MULTIVIT, IRON, MIN NO. 8, FA 1 TAB GT SCH (20:17)
[2017-08-14] MEDS: SENNOSIDES 8.6 MG TABLET PO SCH (22:13)
[2017-08-15] MEDS: IPRATROPIUM NEB FS 0.5 MG/2.5 ML AMPUL.NEB NEB SCH ×4 (02:00→20:17)
[2017-08-15] MEDS: ALBUTEROL FS 2.5 MG/3 ML VIAL.NEB NEB SCH ×4 (02:00→20:17)
[2017-08-15] MEDS: GLYCOPYRROLATE 1 MG TABLET GT SCH ×4 (05:26→23:54)
[2017-08-15] MEDS: BACLOFEN (10 MG) 10 MG TABLET GT SCH ×3 (05:26→20:37)
[2017-08-15] MEDS: LEVOTHYROXINE SODIUM 125 MCG TABLET GT SCH (05:26)
[2017-08-15 08:12] VITALS: BP 147/68
[2017-08-15] MEDS: HYDROGEN PEROXIDE 480 ML BOTTLE TP SCH ×2 (09:00→21:32)
[2017-08-15] MEDS: ZINC OXIDE 30 GM TUBE TP SCH ×2 (09:00→22:00)
[2017-08-15] MEDS: OMEPRAZOLE 10 MG CAPSULE.DR GT SCH (09:41)
[2017-08-15] MEDS: POLYVINYL ALCOHOL 15 ML BOTTLE EACHEYE SCH ×4 (09:41→20:37)
[2017-08-15] MEDS: AMIODARONE HCL 200 MG TABLET GT SCH (09:41)
[2017-08-15] MEDS: POTASSIUM CHLORIDE 20 MEQ/15 ML ML GT SCH (09:41)
[2017-08-15] MEDS: POLYETHYLENE GLYCOL 3350 17 GM POWD.PACK GT SCH (09:41)
[2017-08-15] MEDS: ACIDOPHILUS/BULGARICUS 1 EACH TAB.CHEW GT SCH (09:41)
[2017-08-15] MEDS: HEPARIN SODIUM, PORCINE 5000 UNITS/1 ML VIAL SQ SCH ×2 (09:42→20:37)
[2017-08-15] MEDS: RENAL NOVASOURCE 1,000 ML BOTTLE GT PRN (13:48)
[2017-08-15 20:30] VITALS: BP 123/72
[2017-08-15] MEDS: FINASTERIDE (5 MG) 5 MG TABLET GT SCH (20:36)
[2017-08-15] MEDS: DOCUSATE SODIUM LIQ 100 MG/10 ML UDC GT SCH (20:37)
[2017-08-15] MEDS: ASCORBIC ACID 500 MG TABLET GT SCH (20:37)
[2017-08-15] MEDS: MULTIVIT, IRON, MIN NO. 8, FA 1 TAB GT SCH (20:37)
[2017-08-15] MEDS: SENNOSIDES 8.6 MG TABLET PO SCH (22:12)
[2017-08-16] MEDS: ALBUTEROL FS 2.5 MG/3 ML VIAL.NEB NEB SCH ×4 (01:30→19:02)
[2017-08-16] MEDS: IPRATROPIUM NEB FS 0.5 MG/2.5 ML AMPUL.NEB NEB SCH ×4 (01:30→19:02)
[2017-08-16] MEDS: LEVOTHYROXINE SODIUM 125 MCG TABLET GT SCH (05:51)
[2017-08-16] MEDS: BACLOFEN (10 MG) 10 MG TABLET GT SCH ×3 (05:51→21:00)
[2017-08-16] MEDS: GLYCOPYRROLATE 1 MG TABLET GT SCH ×3 (05:51→18:31)
[2017-08-16 07:50] VITALS: BP 136/94
[2017-08-16] MEDS: ACIDOPHILUS/BULGARICUS 1 EACH TAB.CHEW GT SCH (09:00)
[2017-08-16] MEDS: POTASSIUM CHLORIDE 20 MEQ/15 ML ML GT SCH (09:00)
[2017-08-16] MEDS: POLYVINYL ALCOHOL 15 ML BOTTLE EACHEYE SCH ×4 (09:00→21:00)
[2017-08-16] MEDS: ZINC OXIDE 30 GM TUBE TP SCH ×2 (09:00→21:00)
[2017-08-16] MEDS: HYDROGEN PEROXIDE 480 ML BOTTLE TP SCH ×2 (09:00→21:00)
[2017-08-16] MEDS: POLYETHYLENE GLYCOL 3350 17 GM POWD.PACK GT SCH (09:00)
[2017-08-16] MEDS: AMIODARONE HCL 200 MG TABLET GT SCH (09:00)
[2017-08-16] MEDS: HEPARIN SODIUM, PORCINE 5000 UNITS/1 ML VIAL SQ SCH ×2 (09:00→21:00)
[2017-08-16] MEDS: OMEPRAZOLE 10 MG CAPSULE.DR GT SCH (09:00)
--- NOTE | 2017-08-16 09:44 | NUR ---
Informed resident's of IDT meeting tomorrow August 17, 2017 from 12:30-1:30pm. She stated she has no worries at this time and will not be attending.
[2017-08-16] MEDS: RENAL NOVASOURCE 1,000 ML BOTTLE GT PRN (18:45)
[2017-08-16] MEDS: FINASTERIDE (5 MG) 5 MG TABLET GT SCH (20:00)
[2017-08-16 20:20] VITALS: BP 114/75
[2017-08-16] MEDS: MULTIVIT, IRON, MIN NO. 8, FA 1 TAB GT SCH (21:00)
[2017-08-16] MEDS: ASCORBIC ACID 500 MG TABLET GT SCH (21:00)
[2017-08-16] MEDS: DOCUSATE SODIUM LIQ 100 MG/10 ML UDC GT SCH (21:00)
[2017-08-16] MEDS: SENNOSIDES 8.6 MG TABLET PO SCH (22:01)
[2017-08-17] MEDS: GLYCOPYRROLATE 1 MG TABLET GT SCH ×5 (00:32→23:46)
[2017-08-17] MEDS: IPRATROPIUM NEB FS 0.5 MG/2.5 ML AMPUL.NEB NEB SCH ×4 (01:36→19:15)
[2017-08-17] MEDS: ALBUTEROL FS 2.5 MG/3 ML VIAL.NEB NEB SCH ×4 (01:36→19:15)
[2017-08-17] MEDS: BACLOFEN (10 MG) 10 MG TABLET GT SCH ×3 (05:00→20:22)
[2017-08-17] MEDS: LEVOTHYROXINE SODIUM 125 MCG TABLET GT SCH (06:27)
[2017-08-17 07:34] VITALS: BP 98/65
[2017-08-17] MEDS: AMIODARONE HCL 200 MG TABLET GT SCH (09:00)
[2017-08-17] MEDS: POLYVINYL ALCOHOL 15 ML BOTTLE EACHEYE SCH ×4 (09:11→20:20)
[2017-08-17] MEDS: POTASSIUM CHLORIDE 20 MEQ/15 ML ML GT SCH (09:12)
[2017-08-17] MEDS: POLYETHYLENE GLYCOL 3350 17 GM POWD.PACK GT SCH (09:12)
[2017-08-17] MEDS: ACIDOPHILUS/BULGARICUS 1 EACH TAB.CHEW GT SCH (09:12)
[2017-08-17] MEDS: HYDROGEN PEROXIDE 480 ML BOTTLE TP SCH ×2 (09:13→20:23)
[2017-08-17] MEDS: OMEPRAZOLE 10 MG CAPSULE.DR GT SCH (09:13)
[2017-08-17] MEDS: ZINC OXIDE 30 GM TUBE TP SCH ×2 (09:13→20:23)
[2017-08-17] MEDS: HEPARIN SODIUM, PORCINE 5000 UNITS/1 ML VIAL SQ SCH ×2 (09:24→20:22)
--- NOTE | 2017-08-17 11:46 | NUR ---
Spoke with Jo Ann from Infection Control, asked if we can discontinue patient's isolation since there is a negative urine cx on 08/09/17. According to IC she needs two negative culture and therefore will send another urine specimen for ESBL clearance.
--- NOTE | 2017-08-17 15:00 | NUR ---
IDT meeting held, reviewed medications, treatment orders and labs. Notified Dr. David that per IC nurse 2 negative culture is needed to dc isolation. Dr. David in agreement. Urine specimen sent for ESBL clearance. Mrs. Bradley notified.
[2017-08-17 19:56] VITALS: BP 112/73
[2017-08-17] MEDS: FINASTERIDE (5 MG) 5 MG TABLET GT SCH (20:20)
[2017-08-17] MEDS: DOCUSATE SODIUM LIQ 100 MG/10 ML UDC GT SCH (20:21)
[2017-08-17] MEDS: MULTIVIT, IRON, MIN NO. 8, FA 1 TAB GT SCH (20:22)
[2017-08-17] MEDS: ASCORBIC ACID 500 MG TABLET GT SCH (20:22)
[2017-08-17] MEDS: RENAL NOVASOURCE 1,000 ML BOTTLE GT PRN (21:10)
[2017-08-17] MEDS: SENNOSIDES 8.6 MG TABLET PO SCH (21:10)
[2017-08-18] MEDS: IPRATROPIUM NEB FS 0.5 MG/2.5 ML AMPUL.NEB NEB SCH ×4 (01:22→19:50)
[2017-08-18] MEDS: ALBUTEROL FS 2.5 MG/3 ML VIAL.NEB NEB SCH ×4 (01:22→19:50)
[2017-08-18] MEDS: BACLOFEN (10 MG) 10 MG TABLET GT SCH ×3 (05:43→21:24)
[2017-08-18] MEDS: LEVOTHYROXINE SODIUM 125 MCG TABLET GT SCH (05:43)
[2017-08-18] MEDS: GLYCOPYRROLATE 1 MG TABLET GT SCH ×3 (05:44→17:27)
[2017-08-18 07:47] VITALS: BP 108/65
[2017-08-18] MEDS: ZINC OXIDE 30 GM TUBE TP SCH ×2 (09:00→21:24)
[2017-08-18] MEDS: HYDROGEN PEROXIDE 480 ML BOTTLE TP SCH ×2 (09:00→21:24)
[2017-08-18] MEDS: POLYVINYL ALCOHOL 15 ML BOTTLE EACHEYE SCH ×4 (09:45→21:24)
[2017-08-18] MEDS: AMIODARONE HCL 200 MG TABLET GT SCH (09:47)
[2017-08-18] MEDS: ACIDOPHILUS/BULGARICUS 1 EACH TAB.CHEW GT SCH (09:48)
[2017-08-18] MEDS: POTASSIUM CHLORIDE 20 MEQ/15 ML ML GT SCH (09:49)
[2017-08-18] MEDS: POLYETHYLENE GLYCOL 3350 17 GM POWD.PACK GT SCH (09:49)
[2017-08-18] MEDS: OMEPRAZOLE 10 MG CAPSULE.DR GT SCH (09:49)
[2017-08-18] MEDS: HEPARIN SODIUM, PORCINE 5000 UNITS/1 ML VIAL SQ SCH ×2 (09:51→21:24)
[2017-08-18] MEDS: FINASTERIDE (5 MG) 5 MG TABLET GT SCH (20:00)
[2017-08-18] MEDS: MULTIVIT, IRON, MIN NO. 8, FA 1 TAB GT SCH (21:24)
[2017-08-18] MEDS: DOCUSATE SODIUM LIQ 100 MG/10 ML UDC GT SCH (21:24)
[2017-08-18] MEDS: ASCORBIC ACID 500 MG TABLET GT SCH (21:24)
[2017-08-18] MEDS: SENNOSIDES 8.6 MG TABLET PO SCH (21:24)
[2017-08-18 23:05] VITALS: BP 100/58
[2017-08-19] MEDS: GLYCOPYRROLATE 1 MG TABLET GT SCH ×5 (00:54→23:50)
[2017-08-19] MEDS: RENAL NOVASOURCE 1,000 ML BOTTLE GT PRN (00:54)
[2017-08-19] MEDS: IPRATROPIUM NEB FS 0.5 MG/2.5 ML AMPUL.NEB NEB SCH ×4 (01:51→20:11)
[2017-08-19] MEDS: ALBUTEROL FS 2.5 MG/3 ML VIAL.NEB NEB SCH ×4 (01:51→20:11)
[2017-08-19] MEDS: BACLOFEN (10 MG) 10 MG TABLET GT SCH ×3 (05:50→21:15)
[2017-08-19] MEDS: LEVOTHYROXINE SODIUM 125 MCG TABLET GT SCH (05:50)
[2017-08-19 07:22] VITALS: BP 111/61
[2017-08-19] MEDS: AMIODARONE HCL 200 MG TABLET GT SCH (09:02)
[2017-08-19] MEDS: POLYVINYL ALCOHOL 15 ML BOTTLE EACHEYE SCH ×4 (09:02→21:14)
[2017-08-19] MEDS: OMEPRAZOLE 10 MG CAPSULE.DR GT SCH (09:02)
[2017-08-19] MEDS: POLYETHYLENE GLYCOL 3350 17 GM POWD.PACK GT SCH (09:02)
[2017-08-19] MEDS: ACIDOPHILUS/BULGARICUS 1 EACH TAB.CHEW GT SCH (09:02)
[2017-08-19] MEDS: POTASSIUM CHLORIDE 20 MEQ/15 ML ML GT SCH (09:02)
[2017-08-19] MEDS: HEPARIN SODIUM, PORCINE 5000 UNITS/1 ML VIAL SQ SCH ×2 (09:03→21:15)
[2017-08-19] MEDS: ZINC OXIDE 30 GM TUBE TP SCH ×2 (09:03→21:15)
[2017-08-19] MEDS: HYDROGEN PEROXIDE 480 ML BOTTLE TP SCH ×2 (09:03→21:15)
[2017-08-19 20:00] VITALS: BP 112/59
[2017-08-19] MEDS: FINASTERIDE (5 MG) 5 MG TABLET GT SCH (20:00)
[2017-08-19] MEDS: ASCORBIC ACID 500 MG TABLET GT SCH (21:15)
[2017-08-19] MEDS: SENNOSIDES 8.6 MG TABLET PO SCH (21:15)
[2017-08-19] MEDS: MULTIVIT, IRON, MIN NO. 8, FA 1 TAB GT SCH (21:15)
[2017-08-19] MEDS: DOCUSATE SODIUM LIQ 100 MG/10 ML UDC GT SCH (21:15)
[2017-08-20] MEDS: ALBUTEROL FS 2.5 MG/3 ML VIAL.NEB NEB SCH ×4 (01:03→20:10)
[2017-08-20] MEDS: IPRATROPIUM NEB FS 0.5 MG/2.5 ML AMPUL.NEB NEB SCH ×4 (01:03→20:10)
[2017-08-20] MEDS: BACLOFEN (10 MG) 10 MG TABLET GT SCH ×3 (05:25→20:57)
[2017-08-20] MEDS: GLYCOPYRROLATE 1 MG TABLET GT SCH ×4 (05:40→23:45)
[2017-08-20] MEDS: LEVOTHYROXINE SODIUM 125 MCG TABLET GT SCH (05:40)
[2017-08-20 08:20] VITALS: BP 110/70
[2017-08-20] MEDS: POLYVINYL ALCOHOL 15 ML BOTTLE EACHEYE SCH ×4 (09:48→20:57)
[2017-08-20] MEDS: ACIDOPHILUS/BULGARICUS 1 EACH TAB.CHEW GT SCH (09:49)
[2017-08-20] MEDS: OMEPRAZOLE 10 MG CAPSULE.DR GT SCH (09:49)
[2017-08-20] MEDS: POTASSIUM CHLORIDE 20 MEQ/15 ML ML GT SCH (09:49)
[2017-08-20] MEDS: POLYETHYLENE GLYCOL 3350 17 GM POWD.PACK GT SCH (09:49)
[2017-08-20] MEDS: ZINC OXIDE 30 GM TUBE TP SCH ×2 (09:49→20:58)
[2017-08-20] MEDS: HEPARIN SODIUM, PORCINE 5000 UNITS/1 ML VIAL SQ SCH ×2 (09:49→20:57)
[2017-08-20] MEDS: HYDROGEN PEROXIDE 480 ML BOTTLE TP SCH ×2 (09:49→20:58)
[2017-08-20] MEDS: AMIODARONE HCL 200 MG TABLET GT SCH (09:50)
--- NOTE | 2017-08-20 10:45 | NUR ---
Received order from CARMELITA Ricks to LA contact isolation for ESBL urine. Pt completed antibiotic treatment and is asymptomatic. Urine yellow, no hematuria, no sign of abdominal pain, T 98.9 F. Notified pt's .
[2017-08-20 20:09] VITALS: BP 106/61
[2017-08-20] MEDS: MULTIVIT, IRON, MIN NO. 8, FA 1 TAB GT SCH (20:55)
[2017-08-20] MEDS: FINASTERIDE (5 MG) 5 MG TABLET GT SCH (20:56)
[2017-08-20] MEDS: ASCORBIC ACID 500 MG TABLET GT SCH (20:57)
[2017-08-20] MEDS: DOCUSATE SODIUM LIQ 100 MG/10 ML UDC GT SCH (20:57)
[2017-08-20] MEDS: SENNOSIDES 8.6 MG TABLET PO SCH (21:42)
[2017-08-21] MEDS: IPRATROPIUM NEB FS 0.5 MG/2.5 ML AMPUL.NEB NEB SCH ×4 (01:30→20:08)
[2017-08-21] MEDS: ALBUTEROL FS 2.5 MG/3 ML VIAL.NEB NEB SCH ×4 (01:30→20:08)
[2017-08-21] MEDS: LEVOTHYROXINE SODIUM 125 MCG TABLET GT SCH (05:43)
[2017-08-21] MEDS: GLYCOPYRROLATE 1 MG TABLET GT SCH ×4 (05:43→23:20)
[2017-08-21] MEDS: BACLOFEN (10 MG) 10 MG TABLET GT SCH ×3 (05:43→21:00)
[2017-08-21 07:52] VITALS: BP 123/68
[2017-08-21] MEDS: AMIODARONE HCL 200 MG TABLET GT SCH (08:41)
[2017-08-21] MEDS: POLYVINYL ALCOHOL 15 ML BOTTLE EACHEYE SCH ×4 (08:41→21:00)
[2017-08-21] MEDS: POLYETHYLENE GLYCOL 3350 17 GM POWD.PACK GT SCH (08:42)
[2017-08-21] MEDS: ACIDOPHILUS/BULGARICUS 1 EACH TAB.CHEW GT SCH (08:42)
[2017-08-21] MEDS: OMEPRAZOLE 10 MG CAPSULE.DR GT SCH (08:42)
[2017-08-21] MEDS: HEPARIN SODIUM, PORCINE 5000 UNITS/1 ML VIAL SQ SCH ×2 (08:42→21:00)
[2017-08-21] MEDS: POTASSIUM CHLORIDE 20 MEQ/15 ML ML GT SCH (08:42)
[2017-08-21] MEDS: HYDROGEN PEROXIDE 480 ML BOTTLE TP SCH ×2 (08:43→21:00)
[2017-08-21] MEDS: ZINC OXIDE 30 GM TUBE TP SCH ×2 (08:43→21:00)
[2017-08-21] MEDS: RENAL NOVASOURCE 1,000 ML BOTTLE GT PRN (12:45)
[2017-08-21] MEDS: FINASTERIDE (5 MG) 5 MG TABLET GT SCH (20:00)
[2017-08-21 20:07] VITALS: BP 107/62
[2017-08-21] MEDS: DOCUSATE SODIUM LIQ 100 MG/10 ML UDC GT SCH (21:00)
[2017-08-21] MEDS: ASCORBIC ACID 500 MG TABLET GT SCH (21:00)
[2017-08-21] MEDS: MULTIVIT, IRON, MIN NO. 8, FA 1 TAB GT SCH (21:00)
[2017-08-21] MEDS: SENNOSIDES 8.6 MG TABLET PO SCH (22:47)
[2017-08-22] MEDS: IPRATROPIUM NEB FS 0.5 MG/2.5 ML AMPUL.NEB NEB SCH ×4 (01:30→19:49)
[2017-08-22] MEDS: ALBUTEROL FS 2.5 MG/3 ML VIAL.NEB NEB SCH ×4 (01:30→19:49)
[2017-08-22] MEDS: BACLOFEN (10 MG) 10 MG TABLET GT SCH ×3 (05:00→20:49)
[2017-08-22] MEDS: GLYCOPYRROLATE 1 MG TABLET GT SCH ×4 (06:30→23:37)
[2017-08-22] MEDS: LEVOTHYROXINE SODIUM 125 MCG TABLET GT SCH (06:30)
[2017-08-22 08:07] VITALS: BP 97/67
[2017-08-22] MEDS: POLYVINYL ALCOHOL 15 ML BOTTLE EACHEYE SCH ×4 (09:29→20:46)
[2017-08-22] MEDS: AMIODARONE HCL 200 MG TABLET GT SCH (09:29)
[2017-08-22] MEDS: ACIDOPHILUS/BULGARICUS 1 EACH TAB.CHEW GT SCH (09:29)
[2017-08-22] MEDS: HEPARIN SODIUM, PORCINE 5000 UNITS/1 ML VIAL SQ SCH ×2 (09:30→20:51)
[2017-08-22] MEDS: POTASSIUM CHLORIDE 20 MEQ/15 ML ML GT SCH (09:30)
[2017-08-22] MEDS: HYDROGEN PEROXIDE 480 ML BOTTLE TP SCH ×2 (09:30→20:51)
[2017-08-22] MEDS: POLYETHYLENE GLYCOL 3350 17 GM POWD.PACK GT SCH (09:30)
[2017-08-22] MEDS: OMEPRAZOLE 10 MG CAPSULE.DR GT SCH (09:30)
[2017-08-22] MEDS: ZINC OXIDE 30 GM TUBE TP SCH ×2 (09:30→20:51)
[2017-08-22] MEDS: RENAL NOVASOURCE 1,000 ML BOTTLE GT PRN (17:17)
[2017-08-22 19:50] VITALS: BP 102/60
[2017-08-22] MEDS: FINASTERIDE (5 MG) 5 MG TABLET GT SCH (20:46)
[2017-08-22] MEDS: DOCUSATE SODIUM LIQ 100 MG/10 ML UDC GT SCH (20:49)
[2017-08-22] MEDS: ASCORBIC ACID 500 MG TABLET GT SCH (20:50)
[2017-08-22] MEDS: MULTIVIT, IRON, MIN NO. 8, FA 1 TAB GT SCH (20:50)
[2017-08-22] MEDS: SENNOSIDES 8.6 MG TABLET PO SCH (21:36)
[2017-08-23] MEDS: ALBUTEROL FS 2.5 MG/3 ML VIAL.NEB NEB SCH ×4 (01:05→19:55)
[2017-08-23] MEDS: IPRATROPIUM NEB FS 0.5 MG/2.5 ML AMPUL.NEB NEB SCH ×4 (01:05→19:55)
[2017-08-23] MEDS: GLYCOPYRROLATE 1 MG TABLET GT SCH ×3 (05:41→17:27)
[2017-08-23] MEDS: BACLOFEN (10 MG) 10 MG TABLET GT SCH ×3 (05:42→21:29)
[2017-08-23] MEDS: LEVOTHYROXINE SODIUM 125 MCG TABLET GT SCH (05:42)
[2017-08-23 07:50] VITALS: BP 109/72
[2017-08-23] MEDS: POLYVINYL ALCOHOL 15 ML BOTTLE EACHEYE SCH ×4 (08:32→21:29)
[2017-08-23] MEDS: AMIODARONE HCL 200 MG TABLET GT SCH (08:34)
[2017-08-23] MEDS: ACIDOPHILUS/BULGARICUS 1 EACH TAB.CHEW GT SCH (08:34)
[2017-08-23] MEDS: POTASSIUM CHLORIDE 20 MEQ/15 ML ML GT SCH (08:34)
[2017-08-23] MEDS: POLYETHYLENE GLYCOL 3350 17 GM POWD.PACK GT SCH (08:34)
[2017-08-23] MEDS: OMEPRAZOLE 10 MG CAPSULE.DR GT SCH (08:34)
[2017-08-23] MEDS: HEPARIN SODIUM, PORCINE 5000 UNITS/1 ML VIAL SQ SCH ×2 (08:35→21:29)
[2017-08-23] MEDS: HYDROGEN PEROXIDE 480 ML BOTTLE TP SCH ×2 (08:36→21:29)
[2017-08-23] MEDS: ZINC OXIDE 30 GM TUBE TP SCH ×2 (08:36→21:29)
--- NOTE | 2017-08-23 12:20 | NUR ---
RT changed the resident's tracheostomy tube today.continue to monitor.No SOB no distress noticed.
[2017-08-23] MEDS: FINASTERIDE (5 MG) 5 MG TABLET GT SCH (20:00)
[2017-08-23 20:22] VITALS: BP 127/69
[2017-08-23] MEDS: MULTIVIT, IRON, MIN NO. 8, FA 1 TAB GT SCH (21:29)
[2017-08-23] MEDS: ASCORBIC ACID 500 MG TABLET GT SCH (21:29)
[2017-08-23] MEDS: DOCUSATE SODIUM LIQ 100 MG/10 ML UDC GT SCH (21:29)
[2017-08-23] MEDS: SENNOSIDES 8.6 MG TABLET PO SCH (21:29)
[2017-08-23] MEDS: RENAL NOVASOURCE 1,000 ML BOTTLE GT PRN (21:30)
[2017-08-24] MEDS: IPRATROPIUM NEB FS 0.5 MG/2.5 ML AMPUL.NEB NEB SCH ×4 (02:29→19:47)
[2017-08-24] MEDS: ALBUTEROL FS 2.5 MG/3 ML VIAL.NEB NEB SCH ×4 (02:29→19:47)
[2017-08-24] MEDS: BACLOFEN (10 MG) 10 MG TABLET GT SCH ×3 (05:00→21:14)
[2017-08-24] MEDS: GLYCOPYRROLATE 1 MG TABLET GT SCH ×4 (06:42→17:41)
[2017-08-24] MEDS: LEVOTHYROXINE SODIUM 125 MCG TABLET GT SCH (06:42)
[2017-08-24 07:42] VITALS: BP 122/73
[2017-08-24] MEDS: OMEPRAZOLE 10 MG CAPSULE.DR GT SCH (09:00)
[2017-08-24] MEDS: ZINC OXIDE 30 GM TUBE TP SCH ×2 (09:00→21:16)
[2017-08-24] MEDS: POLYVINYL ALCOHOL 15 ML BOTTLE EACHEYE SCH ×4 (09:00→21:14)
[2017-08-24] MEDS: HYDROGEN PEROXIDE 480 ML BOTTLE TP SCH ×2 (09:00→21:15)
[2017-08-24] MEDS: POLYETHYLENE GLYCOL 3350 17 GM POWD.PACK GT SCH (09:00)
[2017-08-24] MEDS: ACIDOPHILUS/BULGARICUS 1 EACH TAB.CHEW GT SCH (09:00)
[2017-08-24] MEDS: AMIODARONE HCL 200 MG TABLET GT SCH (09:00)
[2017-08-24] MEDS: POTASSIUM CHLORIDE 20 MEQ/15 ML ML GT SCH (09:00)
[2017-08-24] MEDS: HEPARIN SODIUM, PORCINE 5000 UNITS/1 ML VIAL SQ SCH ×2 (09:00→21:15)
--- NOTE | 2017-08-24 14:13 | NUR ---
Seen and examined by Dr. Paniagua, NNO given.
[2017-08-24 19:53] VITALS: BP 113/62
[2017-08-24] MEDS: FINASTERIDE (5 MG) 5 MG TABLET GT SCH (20:00)
[2017-08-24] MEDS: DOCUSATE SODIUM LIQ 100 MG/10 ML UDC GT SCH (21:14)
[2017-08-24] MEDS: ASCORBIC ACID 500 MG TABLET GT SCH (21:15)
[2017-08-24] MEDS: MULTIVIT, IRON, MIN NO. 8, FA 1 TAB GT SCH (21:15)
[2017-08-24] MEDS: SENNOSIDES 8.6 MG TABLET PO SCH (21:16)
[2017-08-25] MEDS: GLYCOPYRROLATE 1 MG TABLET GT SCH ×5 (00:03→23:35)
[2017-08-25] MEDS: RENAL NOVASOURCE 1,000 ML BOTTLE GT PRN (00:04)
[2017-08-25] MEDS: ALBUTEROL FS 2.5 MG/3 ML VIAL.NEB NEB SCH ×4 (01:42→19:10)
[2017-08-25] MEDS: IPRATROPIUM NEB FS 0.5 MG/2.5 ML AMPUL.NEB NEB SCH ×4 (01:42→19:10)
[2017-08-25] MEDS: BACLOFEN (10 MG) 10 MG TABLET GT SCH ×3 (05:34→21:18)
[2017-08-25] MEDS: LEVOTHYROXINE SODIUM 125 MCG TABLET GT SCH (05:34)
[2017-08-25 07:44] VITALS: BP 103/62
[2017-08-25] MEDS: POLYVINYL ALCOHOL 15 ML BOTTLE EACHEYE SCH ×4 (09:54→21:17)
[2017-08-25] MEDS: POLYETHYLENE GLYCOL 3350 17 GM POWD.PACK GT SCH (09:55)
[2017-08-25] MEDS: POTASSIUM CHLORIDE 20 MEQ/15 ML ML GT SCH (09:55)
[2017-08-25] MEDS: HEPARIN SODIUM, PORCINE 5000 UNITS/1 ML VIAL SQ SCH ×2 (09:55→21:18)
[2017-08-25] MEDS: AMIODARONE HCL 200 MG TABLET GT SCH (09:55)
[2017-08-25] MEDS: ZINC OXIDE 30 GM TUBE TP SCH ×2 (09:55→21:19)
[2017-08-25] MEDS: ACIDOPHILUS/BULGARICUS 1 EACH TAB.CHEW GT SCH (09:55)
[2017-08-25] MEDS: HYDROGEN PEROXIDE 480 ML BOTTLE TP SCH ×2 (09:55→21:19)
[2017-08-25] MEDS: OMEPRAZOLE 10 MG CAPSULE.DR GT SCH (09:55)
--- NOTE | 2017-08-25 14:20 | NUR ---
Notified Dr. Paniagua re: pharmacy recommendation to F/U repeat BMP, last BMP on 08/06/17, K level 5.6 and patient on KCL 10 meq daily. order received to draw BMP today.
[2017-08-25 15:54] LABS: CALCIUM, SERUM 9.3 mg/dL (8.5-10.1); CREATININE 1.8 mg/dL (0.6-1.3); POTASSIUM 4.3 mmol/L (3.5-5.1)
--- NOTE | 2017-08-25 17:21 | NUR ---
Reported to Dr. Pilo Cisneros level 4.3. NNO given.
[2017-08-25] MEDS: FINASTERIDE (5 MG) 5 MG TABLET GT SCH (20:00)
[2017-08-25 20:11] VITALS: BP 110/67
[2017-08-25] MEDS: DOCUSATE SODIUM LIQ 100 MG/10 ML UDC GT SCH (21:17)
[2017-08-25] MEDS: ASCORBIC ACID 500 MG TABLET GT SCH (21:18)
[2017-08-25] MEDS: MULTIVIT, IRON, MIN NO. 8, FA 1 TAB GT SCH (21:18)
[2017-08-25] MEDS: SENNOSIDES 8.6 MG TABLET PO SCH (21:19)
[2017-08-26] MEDS: RENAL NOVASOURCE 1,000 ML BOTTLE GT PRN (00:01)
[2017-08-26] MEDS: IPRATROPIUM NEB FS 0.5 MG/2.5 ML AMPUL.NEB NEB SCH ×4 (01:49→19:22)
[2017-08-26] MEDS: ALBUTEROL FS 2.5 MG/3 ML VIAL.NEB NEB SCH ×4 (01:49→19:22)
[2017-08-26] MEDS: GLYCOPYRROLATE 1 MG TABLET GT SCH ×3 (05:36→18:09)
[2017-08-26] MEDS: LEVOTHYROXINE SODIUM 125 MCG TABLET GT SCH (05:36)
[2017-08-26] MEDS: BACLOFEN (10 MG) 10 MG TABLET GT SCH ×3 (05:36→21:46)
[2017-08-26 07:38] VITALS: BP 117/67
[2017-08-26] MEDS: POTASSIUM CHLORIDE 20 MEQ/15 ML ML GT SCH (09:35)
[2017-08-26] MEDS: AMIODARONE HCL 200 MG TABLET GT SCH (09:35)
[2017-08-26] MEDS: OMEPRAZOLE 10 MG CAPSULE.DR GT SCH (09:35)
[2017-08-26] MEDS: ACIDOPHILUS/BULGARICUS 1 EACH TAB.CHEW GT SCH (09:35)
[2017-08-26] MEDS: POLYETHYLENE GLYCOL 3350 17 GM POWD.PACK GT SCH (09:35)
[2017-08-26] MEDS: POLYVINYL ALCOHOL 15 ML BOTTLE EACHEYE SCH ×4 (09:35→21:46)
[2017-08-26] MEDS: HYDROGEN PEROXIDE 480 ML BOTTLE TP SCH ×2 (09:36→21:47)
[2017-08-26] MEDS: HEPARIN SODIUM, PORCINE 5000 UNITS/1 ML VIAL SQ SCH ×2 (09:36→21:47)
[2017-08-26] MEDS: ZINC OXIDE 30 GM TUBE TP SCH ×2 (09:37→21:47)
[2017-08-26] MEDS: FINASTERIDE (5 MG) 5 MG TABLET GT SCH (20:00)
[2017-08-26] MEDS: MULTIVIT, IRON, MIN NO. 8, FA 1 TAB GT SCH (21:46)
[2017-08-26] MEDS: ASCORBIC ACID 500 MG TABLET GT SCH (21:46)
[2017-08-26] MEDS: DOCUSATE SODIUM LIQ 100 MG/10 ML UDC GT SCH (21:46)
[2017-08-26] MEDS: SENNOSIDES 8.6 MG TABLET PO SCH (21:47)
[2017-08-26 22:07] VITALS: BP 128/79
[2017-08-27] MEDS: GLYCOPYRROLATE 1 MG TABLET GT SCH ×4 (00:02→17:10)
[2017-08-27] MEDS: IPRATROPIUM NEB FS 0.5 MG/2.5 ML AMPUL.NEB NEB SCH ×4 (01:15→19:36)
[2017-08-27] MEDS: ALBUTEROL FS 2.5 MG/3 ML VIAL.NEB NEB SCH ×4 (01:15→19:36)
[2017-08-27] MEDS: BACLOFEN (10 MG) 10 MG TABLET GT SCH ×3 (05:51→21:20)
[2017-08-27] MEDS: LEVOTHYROXINE SODIUM 125 MCG TABLET GT SCH (05:52)
[2017-08-27 07:46] VITALS: BP 103/64
[2017-08-27] MEDS: AMIODARONE HCL 200 MG TABLET GT SCH (09:00)
[2017-08-27] MEDS: POLYVINYL ALCOHOL 15 ML BOTTLE EACHEYE SCH ×4 (09:27→21:20)
[2017-08-27] MEDS: OMEPRAZOLE 10 MG CAPSULE.DR GT SCH (09:31)
[2017-08-27] MEDS: POLYETHYLENE GLYCOL 3350 17 GM POWD.PACK GT SCH (09:31)
[2017-08-27] MEDS: ACIDOPHILUS/BULGARICUS 1 EACH TAB.CHEW GT SCH (09:31)
[2017-08-27] MEDS: POTASSIUM CHLORIDE 20 MEQ/15 ML ML GT SCH (09:31)
[2017-08-27] MEDS: HYDROGEN PEROXIDE 480 ML BOTTLE TP SCH ×2 (09:35→21:20)
[2017-08-27] MEDS: HEPARIN SODIUM, PORCINE 5000 UNITS/1 ML VIAL SQ SCH ×2 (09:35→21:20)
[2017-08-27] MEDS: ZINC OXIDE 30 GM TUBE TP SCH ×2 (09:35→21:20)
[2017-08-27] MEDS: FINASTERIDE (5 MG) 5 MG TABLET GT SCH (20:00)
[2017-08-27] MEDS: MULTIVIT, IRON, MIN NO. 8, FA 1 TAB GT SCH (21:20)
[2017-08-27] MEDS: ASCORBIC ACID 500 MG TABLET GT SCH (21:20)
[2017-08-27] MEDS: SENNOSIDES 8.6 MG TABLET PO SCH (21:20)
[2017-08-27] MEDS: DOCUSATE SODIUM LIQ 100 MG/10 ML UDC GT SCH (21:20)
[2017-08-27 21:58] VITALS: BP 105/58
[2017-08-28] MEDS: GLYCOPYRROLATE 1 MG TABLET GT SCH ×4 (00:09→16:53)
[2017-08-28] MEDS: IPRATROPIUM NEB FS 0.5 MG/2.5 ML AMPUL.NEB NEB SCH ×4 (02:23→19:24)
[2017-08-28] MEDS: ALBUTEROL FS 2.5 MG/3 ML VIAL.NEB NEB SCH ×4 (02:23→19:24)
[2017-08-28] MEDS: LEVOTHYROXINE SODIUM 125 MCG TABLET GT SCH (05:39)
[2017-08-28] MEDS: BACLOFEN (10 MG) 10 MG TABLET GT SCH ×3 (05:39→21:33)
--- NOTE | 2017-08-28 07:15 | NUR ---
RN OPENING NOTES RECV'D REPORT FROM DIANE RN. HOB ELEVATED. COOL AEROSOL TRACH COLLAR 100% O2 SATS. PEG FEEDING. BED IN LOW LOCKED POSITION. WILL CONT TO MONITOR AND TURN Q2 HRS.
[2017-08-28 07:43] VITALS: BP 118/65
[2017-08-28] MEDS: AMIODARONE HCL 200 MG TABLET GT SCH (09:00)
[2017-08-28] MEDS: POLYVINYL ALCOHOL 15 ML BOTTLE EACHEYE SCH ×4 (09:23→21:33)
[2017-08-28] MEDS: POLYETHYLENE GLYCOL 3350 17 GM POWD.PACK GT SCH (09:24)
[2017-08-28] MEDS: ACIDOPHILUS/BULGARICUS 1 EACH TAB.CHEW GT SCH (09:24)
[2017-08-28] MEDS: POTASSIUM CHLORIDE 20 MEQ/15 ML ML GT SCH (09:24)
[2017-08-28] MEDS: ZINC OXIDE 30 GM TUBE TP SCH ×2 (09:25→21:34)
[2017-08-28] MEDS: OMEPRAZOLE 10 MG CAPSULE.DR GT SCH (09:25)
[2017-08-28] MEDS: HYDROGEN PEROXIDE 480 ML BOTTLE TP SCH ×2 (09:25→21:34)
[2017-08-28] MEDS: HEPARIN SODIUM, PORCINE 5000 UNITS/1 ML VIAL SQ SCH ×2 (09:27→21:33)
--- NOTE | 2017-08-28 18:03 | NUR ---
RN CLOSING NOTES PT STABLE THROUGHOUT SHIFT. HOB ELEVATED. COOL AEROSOL TRACH COLLAR 100% O2 SATS. BED IN LOW LOCKED POSITION. WILL ENDORSE TO NOC RN.
[2017-08-28 19:55] VITALS: BP 108/72
[2017-08-28] MEDS: FINASTERIDE (5 MG) 5 MG TABLET GT SCH (20:00)
[2017-08-28] MEDS: ASCORBIC ACID 500 MG TABLET GT SCH (21:33)
[2017-08-28] MEDS: DOCUSATE SODIUM LIQ 100 MG/10 ML UDC GT SCH (21:33)
[2017-08-28] MEDS: MULTIVIT, IRON, MIN NO. 8, FA 1 TAB GT SCH (21:33)
[2017-08-28] MEDS: SENNOSIDES 8.6 MG TABLET PO SCH (21:34)
[2017-08-29] MEDS: GLYCOPYRROLATE 1 MG TABLET GT SCH ×4 (00:11→17:47)
[2017-08-29] MEDS: ALBUTEROL FS 2.5 MG/3 ML VIAL.NEB NEB SCH ×4 (02:15→20:04)
[2017-08-29] MEDS: IPRATROPIUM NEB FS 0.5 MG/2.5 ML AMPUL.NEB NEB SCH ×4 (02:15→20:04)
[2017-08-29] MEDS: LEVOTHYROXINE SODIUM 125 MCG TABLET GT SCH (05:58)
[2017-08-29] MEDS: BACLOFEN (10 MG) 10 MG TABLET GT SCH ×3 (05:58→21:18)
[2017-08-29 07:31] VITALS: BP 121/73
[2017-08-29] MEDS: ACIDOPHILUS/BULGARICUS 1 EACH TAB.CHEW GT SCH (09:42)
[2017-08-29] MEDS: AMIODARONE HCL 200 MG TABLET GT SCH (09:42)
[2017-08-29] MEDS: POLYVINYL ALCOHOL 15 ML BOTTLE EACHEYE SCH ×4 (09:42→21:18)
[2017-08-29] MEDS: OMEPRAZOLE 10 MG CAPSULE.DR GT SCH (09:42)
[2017-08-29] MEDS: POTASSIUM CHLORIDE 20 MEQ/15 ML ML GT SCH (09:42)
[2017-08-29] MEDS: POLYETHYLENE GLYCOL 3350 17 GM POWD.PACK GT SCH (09:42)
[2017-08-29] MEDS: ZINC OXIDE 30 GM TUBE TP SCH ×2 (09:43→21:19)
[2017-08-29] MEDS: HYDROGEN PEROXIDE 480 ML BOTTLE TP SCH ×2 (09:43→21:19)
[2017-08-29] MEDS: HEPARIN SODIUM, PORCINE 5000 UNITS/1 ML VIAL SQ SCH ×2 (09:43→21:19)
[2017-08-29] MEDS: RENAL NOVASOURCE 1,000 ML BOTTLE GT PRN (14:44)
[2017-08-29] MEDS: FINASTERIDE (5 MG) 5 MG TABLET GT SCH (20:00)
[2017-08-29] MEDS: ASCORBIC ACID 500 MG TABLET GT SCH (21:18)
[2017-08-29] MEDS: MULTIVIT, IRON, MIN NO. 8, FA 1 TAB GT SCH (21:18)
[2017-08-29] MEDS: DOCUSATE SODIUM LIQ 100 MG/10 ML UDC GT SCH (21:18)
[2017-08-29] MEDS: SENNOSIDES 8.6 MG TABLET PO SCH (21:19)
[2017-08-30] MEDS: GLYCOPYRROLATE 1 MG TABLET GT SCH ×4 (00:22→17:46)
[2017-08-30] MEDS: ALBUTEROL FS 2.5 MG/3 ML VIAL.NEB NEB SCH ×4 (01:44→19:02)
[2017-08-30] MEDS: IPRATROPIUM NEB FS 0.5 MG/2.5 ML AMPUL.NEB NEB SCH ×4 (01:44→19:02)
[2017-08-30] MEDS: BACLOFEN (10 MG) 10 MG TABLET GT SCH ×3 (05:00→21:15)
[2017-08-30] MEDS: LEVOTHYROXINE SODIUM 125 MCG TABLET GT SCH (06:09)
[2017-08-30] MEDS: MAGNESIUM HYDROXIDE 30 ML UDC GT PRN (07:27)
[2017-08-30 07:49] VITALS: BP 105/57
[2017-08-30 08:27] VITALS: BP 117/75
[2017-08-30] MEDS: OMEPRAZOLE 10 MG CAPSULE.DR GT SCH (09:14)
[2017-08-30] MEDS: POTASSIUM CHLORIDE 20 MEQ/15 ML ML GT SCH (09:14)
[2017-08-30] MEDS: POLYVINYL ALCOHOL 15 ML BOTTLE EACHEYE SCH ×4 (09:14→21:15)
[2017-08-30] MEDS: ACIDOPHILUS/BULGARICUS 1 EACH TAB.CHEW GT SCH (09:14)
[2017-08-30] MEDS: AMIODARONE HCL 200 MG TABLET GT SCH (09:14)
[2017-08-30] MEDS: POLYETHYLENE GLYCOL 3350 17 GM POWD.PACK GT SCH (09:14)
[2017-08-30] MEDS: HYDROGEN PEROXIDE 480 ML BOTTLE TP SCH ×2 (09:15→21:15)
[2017-08-30] MEDS: ZINC OXIDE 30 GM TUBE TP SCH ×2 (09:15→21:16)
[2017-08-30] MEDS: HEPARIN SODIUM, PORCINE 5000 UNITS/1 ML VIAL SQ SCH ×2 (09:15→21:15)
[2017-08-30] MEDS: RENAL NOVASOURCE 1,000 ML BOTTLE GT PRN (17:46)
[2017-08-30 19:35] VITALS: BP 95/63
[2017-08-30] MEDS: FINASTERIDE (5 MG) 5 MG TABLET GT SCH (20:00)
[2017-08-30] MEDS: ASCORBIC ACID 500 MG TABLET GT SCH (21:15)
[2017-08-30] MEDS: MULTIVIT, IRON, MIN NO. 8, FA 1 TAB GT SCH (21:15)
[2017-08-30] MEDS: DOCUSATE SODIUM LIQ 100 MG/10 ML UDC GT SCH (21:15)
[2017-08-30] MEDS: SENNOSIDES 8.6 MG TABLET PO SCH (21:16)
[2017-08-31] MEDS: GLYCOPYRROLATE 1 MG TABLET GT SCH ×4 (00:03→17:40)
[2017-08-31] MEDS: IPRATROPIUM NEB FS 0.5 MG/2.5 ML AMPUL.NEB NEB SCH ×4 (01:40→19:51)
[2017-08-31] MEDS: ALBUTEROL FS 2.5 MG/3 ML VIAL.NEB NEB SCH ×4 (01:40→19:51)
[2017-08-31] MEDS: BACLOFEN (10 MG) 10 MG TABLET GT SCH ×3 (05:37→21:27)
[2017-08-31] MEDS: LEVOTHYROXINE SODIUM 125 MCG TABLET GT SCH (05:37)
[2017-08-31] MEDS: ZINC OXIDE 30 GM TUBE TP SCH ×2 (09:11→21:27)
[2017-08-31] MEDS: HEPARIN SODIUM, PORCINE 5000 UNITS/1 ML VIAL SQ SCH ×2 (09:12→21:27)
[2017-08-31] MEDS: HYDROGEN PEROXIDE 480 ML BOTTLE TP SCH ×2 (09:12→21:27)
[2017-08-31] MEDS: OMEPRAZOLE 10 MG CAPSULE.DR GT SCH (09:12)
[2017-08-31] MEDS: POTASSIUM CHLORIDE 20 MEQ/15 ML ML GT SCH (09:12)
[2017-08-31] MEDS: POLYETHYLENE GLYCOL 3350 17 GM POWD.PACK GT SCH (09:12)
[2017-08-31] MEDS: ACIDOPHILUS/BULGARICUS 1 EACH TAB.CHEW GT SCH (09:12)
[2017-08-31] MEDS: POLYVINYL ALCOHOL 15 ML BOTTLE EACHEYE SCH ×4 (09:13→21:27)
[2017-08-31] MEDS: AMIODARONE HCL 200 MG TABLET GT SCH (09:13)
[2017-08-31] MEDS: RENAL NOVASOURCE 1,000 ML BOTTLE GT PRN (17:43)
[2017-08-31] MEDS: FINASTERIDE (5 MG) 5 MG TABLET GT SCH (20:00)
[2017-08-31 20:05] VITALS: BP 123/71
[2017-08-31] MEDS: ASCORBIC ACID 500 MG TABLET GT SCH (21:27)
[2017-08-31] MEDS: SENNOSIDES 8.6 MG TABLET PO SCH (21:27)
[2017-08-31] MEDS: MULTIVIT, IRON, MIN NO. 8, FA 1 TAB GT SCH (21:27)
[2017-08-31] MEDS: DOCUSATE SODIUM LIQ 100 MG/10 ML UDC GT SCH (21:27)
[2017-09-01] MEDS: GLYCOPYRROLATE 1 MG TABLET GT SCH ×4 (00:01→18:05)
[2017-09-01] MEDS: IPRATROPIUM NEB FS 0.5 MG/2.5 ML AMPUL.NEB NEB SCH ×4 (01:30→19:54)
[2017-09-01] MEDS: ALBUTEROL FS 2.5 MG/3 ML VIAL.NEB NEB SCH ×4 (01:30→19:54)
[2017-09-01] MEDS: LEVOTHYROXINE SODIUM 125 MCG TABLET GT SCH (05:58)
[2017-09-01] MEDS: BACLOFEN (10 MG) 10 MG TABLET GT SCH ×3 (05:58→21:10)
[2017-09-01 07:39] VITALS: BP 123/77
[2017-09-01] MEDS: AMIODARONE HCL 200 MG TABLET GT SCH (09:59)
[2017-09-01] MEDS: POTASSIUM CHLORIDE 20 MEQ/15 ML ML GT SCH (09:59)
[2017-09-01] MEDS: ACIDOPHILUS/BULGARICUS 1 EACH TAB.CHEW GT SCH (09:59)
[2017-09-01] MEDS: HEPARIN SODIUM, PORCINE 5000 UNITS/1 ML VIAL SQ SCH ×2 (09:59→21:10)
[2017-09-01] MEDS: OMEPRAZOLE 10 MG CAPSULE.DR GT SCH (09:59)
[2017-09-01] MEDS: POLYVINYL ALCOHOL 15 ML BOTTLE EACHEYE SCH ×4 (09:59→21:10)
[2017-09-01] MEDS: HYDROGEN PEROXIDE 480 ML BOTTLE TP SCH ×2 (09:59→21:10)
[2017-09-01] MEDS: POLYETHYLENE GLYCOL 3350 17 GM POWD.PACK GT SCH (09:59)
[2017-09-01] MEDS: ZINC OXIDE 30 GM TUBE TP SCH ×2 (10:00→21:10)
[2017-09-01] MEDS: FINASTERIDE (5 MG) 5 MG TABLET GT SCH (20:00)
[2017-09-01 20:27] VITALS: BP 96/55
[2017-09-01] MEDS: ASCORBIC ACID 500 MG TABLET GT SCH (21:10)
[2017-09-01] MEDS: RENAL NOVASOURCE 1,000 ML BOTTLE GT PRN (21:10)
[2017-09-01] MEDS: MULTIVIT, IRON, MIN NO. 8, FA 1 TAB GT SCH (21:10)
[2017-09-01] MEDS: DOCUSATE SODIUM LIQ 100 MG/10 ML UDC GT SCH (21:10)
[2017-09-01] MEDS: SENNOSIDES 8.6 MG TABLET PO SCH (21:10)
[2017-09-02] MEDS: IPRATROPIUM NEB FS 0.5 MG/2.5 ML AMPUL.NEB NEB SCH ×4 (00:41→20:04)
[2017-09-02] MEDS: ALBUTEROL FS 2.5 MG/3 ML VIAL.NEB NEB SCH ×4 (00:41→20:04)
[2017-09-02] MEDS: GLYCOPYRROLATE 1 MG TABLET GT SCH ×5 (00:58→23:52)
[2017-09-02] MEDS: BACLOFEN (10 MG) 10 MG TABLET GT SCH ×3 (05:09→21:29)
[2017-09-02] MEDS: LEVOTHYROXINE SODIUM 125 MCG TABLET GT SCH (05:09)
[2017-09-02 08:13] VITALS: BP 116/70
[2017-09-02] MEDS: POLYVINYL ALCOHOL 15 ML BOTTLE EACHEYE SCH ×4 (08:47→21:29)
[2017-09-02] MEDS: POLYETHYLENE GLYCOL 3350 17 GM POWD.PACK GT SCH (09:00)
[2017-09-02] MEDS: HYDROGEN PEROXIDE 480 ML BOTTLE TP SCH ×2 (09:00→21:29)
[2017-09-02] MEDS: ZINC OXIDE 30 GM TUBE TP SCH ×2 (09:00→21:30)
[2017-09-02] MEDS: HEPARIN SODIUM, PORCINE 5000 UNITS/1 ML VIAL SQ SCH ×2 (09:00→21:29)
[2017-09-02] MEDS: AMIODARONE HCL 200 MG TABLET GT SCH (09:00)
[2017-09-02] MEDS: ACIDOPHILUS/BULGARICUS 1 EACH TAB.CHEW GT SCH (09:00)
[2017-09-02] MEDS: OMEPRAZOLE 10 MG CAPSULE.DR GT SCH (09:01)
[2017-09-02] MEDS: POTASSIUM CHLORIDE 20 MEQ/15 ML ML GT SCH (09:01)
[2017-09-02] MEDS: FINASTERIDE (5 MG) 5 MG TABLET GT SCH (20:00)
[2017-09-02] MEDS: DOCUSATE SODIUM LIQ 100 MG/10 ML UDC GT SCH (21:29)
[2017-09-02] MEDS: ASCORBIC ACID 500 MG TABLET GT SCH (21:29)
[2017-09-02] MEDS: MULTIVIT, IRON, MIN NO. 8, FA 1 TAB GT SCH (21:29)
[2017-09-02] MEDS: SENNOSIDES 8.6 MG TABLET PO SCH (21:30)
[2017-09-02 23:01] VITALS: BP 118/66
[2017-09-03] MEDS: IPRATROPIUM NEB FS 0.5 MG/2.5 ML AMPUL.NEB NEB SCH ×4 (02:14→19:30)
[2017-09-03] MEDS: ALBUTEROL FS 2.5 MG/3 ML VIAL.NEB NEB SCH ×4 (02:14→19:30)
[2017-09-03] MEDS: BACLOFEN (10 MG) 10 MG TABLET GT SCH ×3 (05:57→21:18)
[2017-09-03] MEDS: GLYCOPYRROLATE 1 MG TABLET GT SCH ×4 (05:58→23:59)
[2017-09-03] MEDS: LEVOTHYROXINE SODIUM 125 MCG TABLET GT SCH (05:58)
[2017-09-03 08:42] VITALS: BP 111/66
[2017-09-03] MEDS: OMEPRAZOLE 10 MG CAPSULE.DR GT SCH (09:00)
[2017-09-03] MEDS: POTASSIUM CHLORIDE 20 MEQ/15 ML ML GT SCH (09:00)
[2017-09-03] MEDS: ACIDOPHILUS/BULGARICUS 1 EACH TAB.CHEW GT SCH (09:00)
[2017-09-03] MEDS: POLYETHYLENE GLYCOL 3350 17 GM POWD.PACK GT SCH (09:00)
[2017-09-03] MEDS: AMIODARONE HCL 200 MG TABLET GT SCH (09:00)
[2017-09-03] MEDS: ZINC OXIDE 30 GM TUBE TP SCH ×2 (09:00→21:18)
[2017-09-03] MEDS: HEPARIN SODIUM, PORCINE 5000 UNITS/1 ML VIAL SQ SCH ×2 (09:00→21:18)
[2017-09-03] MEDS: HYDROGEN PEROXIDE 480 ML BOTTLE TP SCH ×2 (09:00→21:18)
[2017-09-03] MEDS: POLYVINYL ALCOHOL 15 ML BOTTLE EACHEYE SCH ×4 (09:00→21:18)
[2017-09-03] MEDS: FINASTERIDE (5 MG) 5 MG TABLET GT SCH (20:00)
[2017-09-03 20:13] VITALS: BP 106/60
[2017-09-03] MEDS: MULTIVIT, IRON, MIN NO. 8, FA 1 TAB GT SCH (21:18)
[2017-09-03] MEDS: ASCORBIC ACID 500 MG TABLET GT SCH (21:18)
[2017-09-03] MEDS: SENNOSIDES 8.6 MG TABLET PO SCH (21:18)
[2017-09-03] MEDS: DOCUSATE SODIUM LIQ 100 MG/10 ML UDC GT SCH (21:18)
[2017-09-04] MEDS: ALBUTEROL FS 2.5 MG/3 ML VIAL.NEB NEB SCH ×4 (02:01→19:43)
[2017-09-04] MEDS: IPRATROPIUM NEB FS 0.5 MG/2.5 ML AMPUL.NEB NEB SCH ×4 (02:01→19:43)
[2017-09-04] MEDS: GLYCOPYRROLATE 1 MG TABLET GT SCH ×3 (05:56→17:44)
[2017-09-04] MEDS: BACLOFEN (10 MG) 10 MG TABLET GT SCH ×3 (05:56→21:28)
[2017-09-04] MEDS: LEVOTHYROXINE SODIUM 125 MCG TABLET GT SCH (05:56)
[2017-09-04 07:55] VITALS: BP 128/68
[2017-09-04] MEDS: POLYVINYL ALCOHOL 15 ML BOTTLE EACHEYE SCH ×4 (09:12→21:28)
[2017-09-04] MEDS: AMIODARONE HCL 200 MG TABLET GT SCH (09:13)
[2017-09-04] MEDS: ACIDOPHILUS/BULGARICUS 1 EACH TAB.CHEW GT SCH (09:13)
[2017-09-04] MEDS: POLYETHYLENE GLYCOL 3350 17 GM POWD.PACK GT SCH (09:14)
[2017-09-04] MEDS: OMEPRAZOLE 10 MG CAPSULE.DR GT SCH (09:14)
[2017-09-04] MEDS: POTASSIUM CHLORIDE 20 MEQ/15 ML ML GT SCH (09:14)
[2017-09-04] MEDS: HEPARIN SODIUM, PORCINE 5000 UNITS/1 ML VIAL SQ SCH ×2 (09:15→21:28)
[2017-09-04] MEDS: ZINC OXIDE 30 GM TUBE TP SCH ×2 (09:17→21:29)
[2017-09-04] MEDS: HYDROGEN PEROXIDE 480 ML BOTTLE TP SCH ×2 (09:26→21:29)
[2017-09-04] MEDS: RENAL NOVASOURCE 1,000 ML BOTTLE GT PRN (10:03)
[2017-09-04] MEDS: FINASTERIDE (5 MG) 5 MG TABLET GT SCH (20:00)
[2017-09-04 21:09] VITALS: BP 105/63
[2017-09-04] MEDS: MULTIVIT, IRON, MIN NO. 8, FA 1 TAB GT SCH (21:28)
[2017-09-04] MEDS: ASCORBIC ACID 500 MG TABLET GT SCH (21:28)
[2017-09-04] MEDS: DOCUSATE SODIUM LIQ 100 MG/10 ML UDC GT SCH (21:28)
[2017-09-04] MEDS: SENNOSIDES 8.6 MG TABLET PO SCH (21:29)
[2017-09-05] MEDS: GLYCOPYRROLATE 1 MG TABLET GT SCH ×5 (00:14→23:36)
[2017-09-05] MEDS: ALBUTEROL FS 2.5 MG/3 ML VIAL.NEB NEB SCH ×4 (01:37→19:53)
[2017-09-05] MEDS: IPRATROPIUM NEB FS 0.5 MG/2.5 ML AMPUL.NEB NEB SCH ×4 (01:37→19:53)
[2017-09-05] MEDS: LEVOTHYROXINE SODIUM 125 MCG TABLET GT SCH (05:59)
[2017-09-05] MEDS: BACLOFEN (10 MG) 10 MG TABLET GT SCH ×3 (05:59→21:15)
[2017-09-05 08:00] VITALS: BP 101/65
[2017-09-05] MEDS: POLYVINYL ALCOHOL 15 ML BOTTLE EACHEYE SCH ×4 (08:58→21:15)
[2017-09-05] MEDS: ACIDOPHILUS/BULGARICUS 1 EACH TAB.CHEW GT SCH (09:00)
[2017-09-05] MEDS: AMIODARONE HCL 200 MG TABLET GT SCH (09:00)
[2017-09-05] MEDS: POTASSIUM CHLORIDE 20 MEQ/15 ML ML GT SCH (09:01)
[2017-09-05] MEDS: HEPARIN SODIUM, PORCINE 5000 UNITS/1 ML VIAL SQ SCH ×2 (09:01→21:15)
[2017-09-05] MEDS: POLYETHYLENE GLYCOL 3350 17 GM POWD.PACK GT SCH (09:01)
[2017-09-05] MEDS: OMEPRAZOLE 10 MG CAPSULE.DR GT SCH (09:01)
[2017-09-05] MEDS: HYDROGEN PEROXIDE 480 ML BOTTLE TP SCH ×2 (09:02→21:16)
[2017-09-05] MEDS: ZINC OXIDE 30 GM TUBE TP SCH ×2 (09:02→21:16)
[2017-09-05] MEDS: RENAL NOVASOURCE 1,000 ML BOTTLE GT PRN (15:18)
[2017-09-05 19:36] VITALS: BP 114/67
[2017-09-05] MEDS: FINASTERIDE (5 MG) 5 MG TABLET GT SCH (20:00)
[2017-09-05] MEDS: ASCORBIC ACID 500 MG TABLET GT SCH (21:15)
[2017-09-05] MEDS: MULTIVIT, IRON, MIN NO. 8, FA 1 TAB GT SCH (21:15)
[2017-09-05] MEDS: DOCUSATE SODIUM LIQ 100 MG/10 ML UDC GT SCH (21:15)
[2017-09-05] MEDS: SENNOSIDES 8.6 MG TABLET PO SCH (21:16)
[2017-09-06] MEDS: IPRATROPIUM NEB FS 0.5 MG/2.5 ML AMPUL.NEB NEB SCH ×4 (01:06→19:43)
[2017-09-06] MEDS: ALBUTEROL FS 2.5 MG/3 ML VIAL.NEB NEB SCH ×4 (01:06→19:43)
[2017-09-06] MEDS: LEVOTHYROXINE SODIUM 125 MCG TABLET GT SCH (05:39)
[2017-09-06] MEDS: GLYCOPYRROLATE 1 MG TABLET GT SCH ×4 (05:39→23:07)
[2017-09-06] MEDS: BACLOFEN (10 MG) 10 MG TABLET GT SCH ×3 (05:39→20:28)
[2017-09-06 07:39] VITALS: BP 126/83
[2017-09-06] MEDS: AMIODARONE HCL 200 MG TABLET GT SCH (09:00)
[2017-09-06] MEDS: POLYETHYLENE GLYCOL 3350 17 GM POWD.PACK GT SCH (09:00)
[2017-09-06] MEDS: ACIDOPHILUS/BULGARICUS 1 EACH TAB.CHEW GT SCH (09:00)
[2017-09-06] MEDS: POLYVINYL ALCOHOL 15 ML BOTTLE EACHEYE SCH ×4 (09:00→20:28)
[2017-09-06] MEDS: HEPARIN SODIUM, PORCINE 5000 UNITS/1 ML VIAL SQ SCH ×2 (09:00→20:28)
[2017-09-06] MEDS: POTASSIUM CHLORIDE 20 MEQ/15 ML ML GT SCH (09:00)
[2017-09-06] MEDS: ZINC OXIDE 30 GM TUBE TP SCH ×2 (09:00→20:28)
[2017-09-06] MEDS: OMEPRAZOLE 10 MG CAPSULE.DR GT SCH (09:00)
[2017-09-06] MEDS: HYDROGEN PEROXIDE 480 ML BOTTLE TP SCH ×2 (09:00→20:28)
[2017-09-06 20:07] VITALS: BP 110/65
[2017-09-06] MEDS: MULTIVIT, IRON, MIN NO. 8, FA 1 TAB GT SCH (20:28)
[2017-09-06] MEDS: DOCUSATE SODIUM LIQ 100 MG/10 ML UDC GT SCH (20:28)
[2017-09-06] MEDS: FINASTERIDE (5 MG) 5 MG TABLET GT SCH (20:28)
[2017-09-06] MEDS: ASCORBIC ACID 500 MG TABLET GT SCH (20:28)
[2017-09-06] MEDS: RENAL NOVASOURCE 1,000 ML BOTTLE GT PRN (20:29)
[2017-09-06] MEDS: MAGNESIUM HYDROXIDE 30 ML UDC GT PRN (20:29)
[2017-09-06] MEDS: SENNOSIDES 8.6 MG TABLET PO SCH (21:02)
[2017-09-07] MEDS: IPRATROPIUM NEB FS 0.5 MG/2.5 ML AMPUL.NEB NEB SCH ×4 (02:17→19:38)
[2017-09-07] MEDS: ALBUTEROL FS 2.5 MG/3 ML VIAL.NEB NEB SCH ×4 (02:17→19:38)
[2017-09-07] MEDS: GLYCOPYRROLATE 1 MG TABLET GT SCH ×4 (05:14→23:26)
[2017-09-07] MEDS: BACLOFEN (10 MG) 10 MG TABLET GT SCH ×3 (05:14→20:20)
[2017-09-07] MEDS: LEVOTHYROXINE SODIUM 125 MCG TABLET GT SCH (05:14)
[2017-09-07 07:41] VITALS: BP 115/78
[2017-09-07] MEDS: POLYVINYL ALCOHOL 15 ML BOTTLE EACHEYE SCH ×4 (09:31→20:20)
[2017-09-07] MEDS: POLYETHYLENE GLYCOL 3350 17 GM POWD.PACK GT SCH (09:32)
[2017-09-07] MEDS: ACIDOPHILUS/BULGARICUS 1 EACH TAB.CHEW GT SCH (09:32)
[2017-09-07] MEDS: AMIODARONE HCL 200 MG TABLET GT SCH (09:32)
[2017-09-07] MEDS: OMEPRAZOLE 10 MG CAPSULE.DR GT SCH (09:32)
[2017-09-07] MEDS: POTASSIUM CHLORIDE 20 MEQ/15 ML ML GT SCH (09:32)
[2017-09-07] MEDS: ZINC OXIDE 30 GM TUBE TP SCH ×2 (09:33→20:21)
[2017-09-07] MEDS: HEPARIN SODIUM, PORCINE 5000 UNITS/1 ML VIAL SQ SCH ×2 (09:33→20:21)
[2017-09-07] MEDS: HYDROGEN PEROXIDE 480 ML BOTTLE TP SCH ×2 (09:33→20:21)
[2017-09-07] MEDS: FINASTERIDE (5 MG) 5 MG TABLET GT SCH (20:20)
[2017-09-07] MEDS: DOCUSATE SODIUM LIQ 100 MG/10 ML UDC GT SCH (20:20)
[2017-09-07] MEDS: ASCORBIC ACID 500 MG TABLET GT SCH (20:20)
[2017-09-07] MEDS: MULTIVIT, IRON, MIN NO. 8, FA 1 TAB GT SCH (20:20)
[2017-09-07 20:38] VITALS: BP 100/66
[2017-09-07] MEDS: SENNOSIDES 8.6 MG TABLET PO SCH (21:09)
[2017-09-08] MEDS: IPRATROPIUM NEB FS 0.5 MG/2.5 ML AMPUL.NEB NEB SCH ×4 (02:10→19:31)
[2017-09-08] MEDS: ALBUTEROL FS 2.5 MG/3 ML VIAL.NEB NEB SCH ×4 (02:10→19:31)
[2017-09-08] MEDS: RENAL NOVASOURCE 1,000 ML BOTTLE GT PRN (05:09)
[2017-09-08] MEDS: GLYCOPYRROLATE 1 MG TABLET GT SCH ×4 (05:09→23:36)
[2017-09-08] MEDS: LEVOTHYROXINE SODIUM 125 MCG TABLET GT SCH (05:09)
[2017-09-08] MEDS: BACLOFEN (10 MG) 10 MG TABLET GT SCH ×3 (05:09→20:36)
[2017-09-08] MEDS: ACIDOPHILUS/BULGARICUS 1 EACH TAB.CHEW GT SCH (09:42)
[2017-09-08] MEDS: AMIODARONE HCL 200 MG TABLET GT SCH (09:42)
[2017-09-08] MEDS: POLYVINYL ALCOHOL 15 ML BOTTLE EACHEYE SCH ×4 (09:42→20:36)
[2017-09-08] MEDS: OMEPRAZOLE 10 MG CAPSULE.DR GT SCH (09:42)
[2017-09-08] MEDS: POLYETHYLENE GLYCOL 3350 17 GM POWD.PACK GT SCH (09:42)
[2017-09-08] MEDS: POTASSIUM CHLORIDE 20 MEQ/15 ML ML GT SCH (09:42)
[2017-09-08] MEDS: HYDROGEN PEROXIDE 480 ML BOTTLE TP SCH ×2 (09:43→20:36)
[2017-09-08] MEDS: HEPARIN SODIUM, PORCINE 5000 UNITS/1 ML VIAL SQ SCH ×2 (09:43→20:36)
[2017-09-08] MEDS: ZINC OXIDE 30 GM TUBE TP SCH ×2 (09:43→20:36)
--- NOTE | 2017-09-08 10:40 | NUR ---
Seen and examined by Dr. Paniagua, NNO given.
[2017-09-08] MEDS: ASCORBIC ACID 500 MG TABLET GT SCH (20:36)
[2017-09-08] MEDS: FINASTERIDE (5 MG) 5 MG TABLET GT SCH (20:36)
[2017-09-08] MEDS: MULTIVIT, IRON, MIN NO. 8, FA 1 TAB GT SCH (20:36)
[2017-09-08] MEDS: DOCUSATE SODIUM LIQ 100 MG/10 ML UDC GT SCH (20:36)
[2017-09-08 20:37] VITALS: BP 102/67
[2017-09-08] MEDS: SENNOSIDES 8.6 MG TABLET PO SCH (21:07)
[2017-09-09] MEDS: IPRATROPIUM NEB FS 0.5 MG/2.5 ML AMPUL.NEB NEB SCH ×4 (01:47→19:24)
[2017-09-09] MEDS: ALBUTEROL FS 2.5 MG/3 ML VIAL.NEB NEB SCH ×4 (01:47→19:24)
[2017-09-09] MEDS: LEVOTHYROXINE SODIUM 125 MCG TABLET GT SCH (05:14)
[2017-09-09] MEDS: BACLOFEN (10 MG) 10 MG TABLET GT SCH ×3 (05:14→21:06)
[2017-09-09] MEDS: GLYCOPYRROLATE 1 MG TABLET GT SCH ×4 (05:14→23:24)
[2017-09-09] MEDS: RENAL NOVASOURCE 1,000 ML BOTTLE GT PRN (05:14)
[2017-09-09 07:29] VITALS: BP 112/69
[2017-09-09] MEDS: HEPARIN SODIUM, PORCINE 5000 UNITS/1 ML VIAL SQ SCH ×2 (09:00→21:07)
[2017-09-09] MEDS: POLYVINYL ALCOHOL 15 ML BOTTLE EACHEYE SCH ×4 (09:49→21:06)
[2017-09-09] MEDS: ACIDOPHILUS/BULGARICUS 1 EACH TAB.CHEW GT SCH (09:50)
[2017-09-09] MEDS: AMIODARONE HCL 200 MG TABLET GT SCH (09:50)
[2017-09-09] MEDS: POLYETHYLENE GLYCOL 3350 17 GM POWD.PACK GT SCH (09:50)
[2017-09-09] MEDS: OMEPRAZOLE 10 MG CAPSULE.DR GT SCH (09:51)
[2017-09-09] MEDS: POTASSIUM CHLORIDE 20 MEQ/15 ML ML GT SCH (09:51)
[2017-09-09] MEDS: HYDROGEN PEROXIDE 480 ML BOTTLE TP SCH ×2 (09:58→21:07)
[2017-09-09] MEDS: ZINC OXIDE 30 GM TUBE TP SCH ×2 (09:58→21:07)
[2017-09-09] MEDS: FINASTERIDE (5 MG) 5 MG TABLET GT SCH (20:00)
[2017-09-09 20:04] VITALS: BP 115/72
[2017-09-09] MEDS: ASCORBIC ACID 500 MG TABLET GT SCH (21:06)
[2017-09-09] MEDS: MULTIVIT, IRON, MIN NO. 8, FA 1 TAB GT SCH (21:06)
[2017-09-09] MEDS: DOCUSATE SODIUM LIQ 100 MG/10 ML UDC GT SCH (21:06)
[2017-09-09] MEDS: SENNOSIDES 8.6 MG TABLET PO SCH (21:07)
[2017-09-10] MEDS: ALBUTEROL FS 2.5 MG/3 ML VIAL.NEB NEB SCH ×4 (01:31→19:45)
[2017-09-10] MEDS: IPRATROPIUM NEB FS 0.5 MG/2.5 ML AMPUL.NEB NEB SCH ×4 (01:31→19:45)
[2017-09-10] MEDS: BACLOFEN (10 MG) 10 MG TABLET GT SCH ×3 (05:23→20:33)
[2017-09-10] MEDS: LEVOTHYROXINE SODIUM 125 MCG TABLET GT SCH (05:23)
[2017-09-10] MEDS: GLYCOPYRROLATE 1 MG TABLET GT SCH ×4 (05:23→23:25)
[2017-09-10] MEDS: RENAL NOVASOURCE 1,000 ML BOTTLE GT PRN (05:23)
--- NOTE | 2017-09-10 06:00 | NUR ---
RN NOTES Noted with buttocks excoriation. Received new order from Dr. Paniagua, noted and carried out.
[2017-09-10 08:55] VITALS: BP 118/72
[2017-09-10] MEDS: POLYVINYL ALCOHOL 15 ML BOTTLE EACHEYE SCH ×4 (09:51→20:33)
[2017-09-10] MEDS: AMIODARONE HCL 200 MG TABLET GT SCH (09:52)
[2017-09-10] MEDS: OMEPRAZOLE 10 MG CAPSULE.DR GT SCH (09:52)
[2017-09-10] MEDS: HEPARIN SODIUM, PORCINE 5000 UNITS/1 ML VIAL SQ SCH ×2 (09:52→20:33)
[2017-09-10] MEDS: ACIDOPHILUS/BULGARICUS 1 EACH TAB.CHEW GT SCH (09:52)
[2017-09-10] MEDS: POTASSIUM CHLORIDE 20 MEQ/15 ML ML GT SCH (09:52)
[2017-09-10] MEDS: POLYETHYLENE GLYCOL 3350 17 GM POWD.PACK GT SCH (09:52)
[2017-09-10] MEDS: HYDROGEN PEROXIDE 480 ML BOTTLE TP SCH ×2 (09:53→20:33)
[2017-09-10] MEDS: ZINC OXIDE 30 GM TUBE TP SCH ×3 (09:53→20:33)
[2017-09-10 20:09] VITALS: BP 106/67
[2017-09-10] MEDS: FINASTERIDE (5 MG) 5 MG TABLET GT SCH (20:33)
[2017-09-10] MEDS: MULTIVIT, IRON, MIN NO. 8, FA 1 TAB GT SCH (20:33)
[2017-09-10] MEDS: ASCORBIC ACID 500 MG TABLET GT SCH (20:33)
[2017-09-10] MEDS: DOCUSATE SODIUM LIQ 100 MG/10 ML UDC GT SCH (20:33)
[2017-09-10] MEDS: SENNOSIDES 8.6 MG TABLET PO SCH (21:38)
[2017-09-11] MEDS: ALBUTEROL FS 2.5 MG/3 ML VIAL.NEB NEB SCH ×4 (01:23→19:16)
[2017-09-11] MEDS: IPRATROPIUM NEB FS 0.5 MG/2.5 ML AMPUL.NEB NEB SCH ×4 (01:23→19:16)
[2017-09-11] MEDS: BACLOFEN (10 MG) 10 MG TABLET GT SCH ×3 (05:50→20:24)
[2017-09-11] MEDS: GLYCOPYRROLATE 1 MG TABLET GT SCH ×4 (05:50→23:22)
[2017-09-11] MEDS: LEVOTHYROXINE SODIUM 125 MCG TABLET GT SCH (05:50)
[2017-09-11] MEDS: RENAL NOVASOURCE 1,000 ML BOTTLE GT PRN (06:43)
[2017-09-11 07:57] VITALS: BP 133/65
[2017-09-11] MEDS: POTASSIUM CHLORIDE 20 MEQ/15 ML ML GT SCH (09:42)
[2017-09-11] MEDS: POLYVINYL ALCOHOL 15 ML BOTTLE EACHEYE SCH ×4 (09:42→20:24)
[2017-09-11] MEDS: AMIODARONE HCL 200 MG TABLET GT SCH (09:42)
[2017-09-11] MEDS: OMEPRAZOLE 10 MG CAPSULE.DR GT SCH (09:42)
[2017-09-11] MEDS: POLYETHYLENE GLYCOL 3350 17 GM POWD.PACK GT SCH (09:42)
[2017-09-11] MEDS: ACIDOPHILUS/BULGARICUS 1 EACH TAB.CHEW GT SCH (09:42)
[2017-09-11] MEDS: ZINC OXIDE 30 GM TUBE TP SCH ×4 (09:43→20:25)
[2017-09-11] MEDS: HYDROGEN PEROXIDE 480 ML BOTTLE TP SCH ×2 (09:43→20:25)
[2017-09-11] MEDS: HEPARIN SODIUM, PORCINE 5000 UNITS/1 ML VIAL SQ SCH ×2 (09:43→20:24)
[2017-09-11 19:51] VITALS: BP 114/66
[2017-09-11] MEDS: FINASTERIDE (5 MG) 5 MG TABLET GT SCH (20:24)
[2017-09-11] MEDS: MULTIVIT, IRON, MIN NO. 8, FA 1 TAB GT SCH (20:24)
[2017-09-11] MEDS: ASCORBIC ACID 500 MG TABLET GT SCH (20:24)
[2017-09-11] MEDS: DOCUSATE SODIUM LIQ 100 MG/10 ML UDC GT SCH (20:24)
[2017-09-11] MEDS: SENNOSIDES 8.6 MG TABLET PO SCH (21:25)
[2017-09-12] MEDS: IPRATROPIUM NEB FS 0.5 MG/2.5 ML AMPUL.NEB NEB SCH ×4 (01:50→19:41)
[2017-09-12] MEDS: ALBUTEROL FS 2.5 MG/3 ML VIAL.NEB NEB SCH ×4 (01:50→19:41)
[2017-09-12] MEDS: BACLOFEN (10 MG) 10 MG TABLET GT SCH ×3 (05:42→20:28)
[2017-09-12] MEDS: GLYCOPYRROLATE 1 MG TABLET GT SCH ×4 (05:42→23:18)
[2017-09-12] MEDS: LEVOTHYROXINE SODIUM 125 MCG TABLET GT SCH (05:42)
[2017-09-12 07:53] VITALS: BP 142/97
[2017-09-12] MEDS: POLYVINYL ALCOHOL 15 ML BOTTLE EACHEYE SCH ×4 (09:32→20:28)
[2017-09-12] MEDS: OMEPRAZOLE 10 MG CAPSULE.DR GT SCH (09:33)
[2017-09-12] MEDS: POLYETHYLENE GLYCOL 3350 17 GM POWD.PACK GT SCH (09:33)
[2017-09-12] MEDS: POTASSIUM CHLORIDE 20 MEQ/15 ML ML GT SCH (09:33)
[2017-09-12] MEDS: AMIODARONE HCL 200 MG TABLET GT SCH (09:33)
[2017-09-12] MEDS: ACIDOPHILUS/BULGARICUS 1 EACH TAB.CHEW GT SCH (09:33)
[2017-09-12] MEDS: HEPARIN SODIUM, PORCINE 5000 UNITS/1 ML VIAL SQ SCH ×2 (09:35→20:28)
[2017-09-12] MEDS: HYDROGEN PEROXIDE 480 ML BOTTLE TP SCH ×2 (09:35→20:28)
[2017-09-12] MEDS: ZINC OXIDE 30 GM TUBE TP SCH ×4 (09:35→20:29)
--- NOTE | 2017-09-12 11:10 | NUR ---
Seen by wound care consult ,told that excoriation is moisture associated and continue same treatment.keep area clean .continue to monitor.
--- NOTE | 2017-09-12 11:33 | NUR ---
WOUND CARE CONSULT: PT SEEN FOR BUTTOCK EXCORIATION WHICH IS MOISTURE RELATED. CONCUR WITH CURRENT TREATMENT OF ZINC CREAM AND MEPILEX. SKIN TO BE KEPT CLEAN AND DRY. ALL SKIN PROTECTION MEASURES IN PLACE AND DISCUSSED WITH NURSING STAFF. WILL SEE PRN. GRAY IN AGREEMENT WITH PLAN OF CARE.
[2017-09-12] MEDS: ASCORBIC ACID 500 MG TABLET GT SCH (20:28)
[2017-09-12] MEDS: DOCUSATE SODIUM LIQ 100 MG/10 ML UDC GT SCH (20:28)
[2017-09-12] MEDS: MULTIVIT, IRON, MIN NO. 8, FA 1 TAB GT SCH (20:28)
[2017-09-12] MEDS: FINASTERIDE (5 MG) 5 MG TABLET GT SCH (20:28)
[2017-09-12 20:31] VITALS: BP 106/61
[2017-09-12] MEDS: SENNOSIDES 8.6 MG TABLET PO SCH (21:51)
[2017-09-13] MEDS: ALBUTEROL FS 2.5 MG/3 ML VIAL.NEB NEB SCH ×4 (00:48→19:30)
[2017-09-13] MEDS: IPRATROPIUM NEB FS 0.5 MG/2.5 ML AMPUL.NEB NEB SCH ×4 (00:48→21:00)
[2017-09-13] MEDS: LEVOTHYROXINE SODIUM 125 MCG TABLET GT SCH (05:52)
[2017-09-13] MEDS: BACLOFEN (10 MG) 10 MG TABLET GT SCH ×3 (05:52→21:20)
[2017-09-13] MEDS: GLYCOPYRROLATE 1 MG TABLET GT SCH ×4 (05:52→23:14)
[2017-09-13 07:35] VITALS: BP 127/63
[2017-09-13] MEDS: ERGOCALCIFEROL (VITAMIN D2) 8,000 UNIT/ML GT SCH (09:00)
[2017-09-13] MEDS: POLYVINYL ALCOHOL 15 ML BOTTLE EACHEYE SCH ×4 (09:21→21:20)
[2017-09-13] MEDS: OMEPRAZOLE 10 MG CAPSULE.DR GT SCH (09:22)
[2017-09-13] MEDS: POLYETHYLENE GLYCOL 3350 17 GM POWD.PACK GT SCH (09:22)
[2017-09-13] MEDS: POTASSIUM CHLORIDE 20 MEQ/15 ML ML GT SCH (09:22)
[2017-09-13] MEDS: ACIDOPHILUS/BULGARICUS 1 EACH TAB.CHEW GT SCH (09:22)
[2017-09-13] MEDS: AMIODARONE HCL 200 MG TABLET GT SCH (09:22)
[2017-09-13] MEDS: HYDROGEN PEROXIDE 480 ML BOTTLE TP SCH ×2 (09:24→21:21)
[2017-09-13] MEDS: ZINC OXIDE 30 GM TUBE TP SCH ×4 (09:24→21:21)
[2017-09-13] MEDS: HEPARIN SODIUM, PORCINE 5000 UNITS/1 ML VIAL SQ SCH ×2 (09:24→21:21)
--- NOTE | 2017-09-13 11:57 | NUR ---
Meeting has been set for Tuesday September 19, 2017 at 1:30PM. Resident's will meet with CNO and subacute community service manager Shanita in order to discuss concerns and to update her on subacute policies. Copyman and CNO notified and SW will remind them of the meeting prior to it taking place.
[2017-09-13] MEDS: RENAL NOVASOURCE 1,000 ML BOTTLE GT PRN (16:02)
[2017-09-13] MEDS: FINASTERIDE (5 MG) 5 MG TABLET GT SCH (20:00)
[2017-09-13] MEDS: MULTIVIT, IRON, MIN NO. 8, FA 1 TAB GT SCH (21:20)
[2017-09-13] MEDS: DOCUSATE SODIUM LIQ 100 MG/10 ML UDC GT SCH (21:20)
[2017-09-13] MEDS: ASCORBIC ACID 500 MG TABLET GT SCH (21:20)
[2017-09-13] MEDS: SENNOSIDES 8.6 MG TABLET PO SCH (21:21)
[2017-09-13] MEDS: MAGNESIUM HYDROXIDE 30 ML UDC GT PRN (21:22)
[2017-09-13 22:47] VITALS: BP 96/56
[2017-09-14] MEDS: IPRATROPIUM NEB FS 0.5 MG/2.5 ML AMPUL.NEB NEB SCH ×4 (01:17→19:30)
[2017-09-14] MEDS: ALBUTEROL FS 2.5 MG/3 ML VIAL.NEB NEB SCH ×4 (01:18→19:30)
[2017-09-14] MEDS: GLYCOPYRROLATE 1 MG TABLET GT SCH ×4 (05:27→23:18)
[2017-09-14] MEDS: BACLOFEN (10 MG) 10 MG TABLET GT SCH ×3 (05:27→21:01)
[2017-09-14] MEDS: LEVOTHYROXINE SODIUM 125 MCG TABLET GT SCH (05:27)
[2017-09-14 07:36] VITALS: BP 125/63
[2017-09-14] MEDS: HYDROGEN PEROXIDE 480 ML BOTTLE TP SCH ×2 (09:00→21:01)
[2017-09-14] MEDS: HEPARIN SODIUM, PORCINE 5000 UNITS/1 ML VIAL SQ SCH ×2 (09:00→21:01)
[2017-09-14] MEDS: ZINC OXIDE 30 GM TUBE TP SCH ×4 (09:00→21:01)
[2017-09-14] MEDS: POLYVINYL ALCOHOL 15 ML BOTTLE EACHEYE SCH ×4 (09:40→21:01)
[2017-09-14] MEDS: POTASSIUM CHLORIDE 20 MEQ/15 ML ML GT SCH (09:40)
[2017-09-14] MEDS: OMEPRAZOLE 10 MG CAPSULE.DR GT SCH (09:40)
[2017-09-14] MEDS: AMIODARONE HCL 200 MG TABLET GT SCH (09:40)
[2017-09-14] MEDS: POLYETHYLENE GLYCOL 3350 17 GM POWD.PACK GT SCH (09:40)
[2017-09-14] MEDS: ACIDOPHILUS/BULGARICUS 1 EACH TAB.CHEW GT SCH (09:40)
[2017-09-14] MEDS: RENAL NOVASOURCE 1,000 ML BOTTLE GT PRN (18:49)
[2017-09-14] MEDS: FINASTERIDE (5 MG) 5 MG TABLET GT SCH (20:00)
[2017-09-14 20:05] VITALS: BP 97/58
[2017-09-14] MEDS: SENNOSIDES 8.6 MG TABLET PO SCH (21:01)
[2017-09-14] MEDS: DOCUSATE SODIUM LIQ 100 MG/10 ML UDC GT SCH (21:01)
[2017-09-14] MEDS: MULTIVIT, IRON, MIN NO. 8, FA 1 TAB GT SCH (21:01)
[2017-09-14] MEDS: ASCORBIC ACID 500 MG TABLET GT SCH (21:01)
[2017-09-14] MEDS: MAGNESIUM HYDROXIDE 30 ML UDC GT PRN (21:02)
[2017-09-15] MEDS: ALBUTEROL FS 2.5 MG/3 ML VIAL.NEB NEB SCH ×4 (01:49→20:21)
[2017-09-15] MEDS: IPRATROPIUM NEB FS 0.5 MG/2.5 ML AMPUL.NEB NEB SCH ×4 (01:49→20:21)
[2017-09-15] MEDS: BACLOFEN (10 MG) 10 MG TABLET GT SCH ×3 (05:41→21:19)
[2017-09-15] MEDS: GLYCOPYRROLATE 1 MG TABLET GT SCH ×4 (05:41→23:28)
[2017-09-15] MEDS: LEVOTHYROXINE SODIUM 125 MCG TABLET GT SCH (05:41)
[2017-09-15] MEDS: ACIDOPHILUS/BULGARICUS 1 EACH TAB.CHEW GT SCH (09:00)
[2017-09-15] MEDS: HYDROGEN PEROXIDE 480 ML BOTTLE TP SCH ×2 (09:00→21:20)
[2017-09-15] MEDS: ZINC OXIDE 30 GM TUBE TP SCH ×4 (09:00→21:20)
[2017-09-15] MEDS: POTASSIUM CHLORIDE 20 MEQ/15 ML ML GT SCH (09:00)
[2017-09-15] MEDS: POLYETHYLENE GLYCOL 3350 17 GM POWD.PACK GT SCH (09:00)
[2017-09-15] MEDS: OMEPRAZOLE 10 MG CAPSULE.DR GT SCH (09:00)
[2017-09-15] MEDS: AMIODARONE HCL 200 MG TABLET GT SCH (09:00)
[2017-09-15] MEDS: HEPARIN SODIUM, PORCINE 5000 UNITS/1 ML VIAL SQ SCH ×2 (09:00→21:19)
[2017-09-15] MEDS: POLYVINYL ALCOHOL 15 ML BOTTLE EACHEYE SCH ×4 (10:00→21:19)
[2017-09-15] MEDS: FINASTERIDE (5 MG) 5 MG TABLET GT SCH (20:00)
[2017-09-15 20:41] VITALS: BP 107/69
[2017-09-15] MEDS: MULTIVIT, IRON, MIN NO. 8, FA 1 TAB GT SCH (21:19)
[2017-09-15] MEDS: ASCORBIC ACID 500 MG TABLET GT SCH (21:19)
[2017-09-15] MEDS: DOCUSATE SODIUM LIQ 100 MG/10 ML UDC GT SCH (21:19)
[2017-09-15] MEDS: SENNOSIDES 8.6 MG TABLET PO SCH (21:20)
[2017-09-15] MEDS: RENAL NOVASOURCE 1,000 ML BOTTLE GT PRN (21:23)
[2017-09-16] MEDS: ALBUTEROL FS 2.5 MG/3 ML VIAL.NEB NEB SCH ×4 (02:04→20:30)
[2017-09-16] MEDS: IPRATROPIUM NEB FS 0.5 MG/2.5 ML AMPUL.NEB NEB SCH ×4 (02:04→20:30)
[2017-09-16] MEDS: GLYCOPYRROLATE 1 MG TABLET GT SCH ×4 (05:25→23:58)
[2017-09-16] MEDS: MAGNESIUM HYDROXIDE 30 ML UDC GT PRN (05:25)
[2017-09-16] MEDS: BACLOFEN (10 MG) 10 MG TABLET GT SCH ×3 (05:25→21:39)
[2017-09-16] MEDS: LEVOTHYROXINE SODIUM 125 MCG TABLET GT SCH (05:25)
[2017-09-16 07:40] VITALS: BP 143/63
[2017-09-16 07:42] VITALS: BP 143/63
[2017-09-16] MEDS: POLYVINYL ALCOHOL 15 ML BOTTLE EACHEYE SCH ×4 (08:36→21:42)
[2017-09-16] MEDS: AMIODARONE HCL 200 MG TABLET GT SCH (08:37)
[2017-09-16] MEDS: OMEPRAZOLE 10 MG CAPSULE.DR GT SCH (08:37)
[2017-09-16] MEDS: POTASSIUM CHLORIDE 20 MEQ/15 ML ML GT SCH (08:37)
[2017-09-16] MEDS: ACIDOPHILUS/BULGARICUS 1 EACH TAB.CHEW GT SCH (08:37)
[2017-09-16] MEDS: POLYETHYLENE GLYCOL 3350 17 GM POWD.PACK GT SCH (08:37)
[2017-09-16] MEDS: ZINC OXIDE 30 GM TUBE TP SCH ×4 (09:02→21:00)
[2017-09-16] MEDS: HYDROGEN PEROXIDE 480 ML BOTTLE TP SCH ×2 (09:02→21:00)
[2017-09-16] MEDS: HEPARIN SODIUM, PORCINE 5000 UNITS/1 ML VIAL SQ SCH ×2 (09:02→21:43)
[2017-09-16] MEDS: FINASTERIDE (5 MG) 5 MG TABLET GT SCH (20:00)
[2017-09-16 20:09] VITALS: BP 137/85
[2017-09-16] MEDS: DOCUSATE SODIUM LIQ 100 MG/10 ML UDC GT SCH (21:39)
[2017-09-16] MEDS: MULTIVIT, IRON, MIN NO. 8, FA 1 TAB GT SCH (21:40)
[2017-09-16] MEDS: ASCORBIC ACID 500 MG TABLET GT SCH (21:40)
[2017-09-16] MEDS: SENNOSIDES 8.6 MG TABLET PO SCH (22:56)
[2017-09-17] MEDS: IPRATROPIUM NEB FS 0.5 MG/2.5 ML AMPUL.NEB NEB SCH ×4 (01:53→19:30)
[2017-09-17] MEDS: ALBUTEROL FS 2.5 MG/3 ML VIAL.NEB NEB SCH ×4 (01:53→19:30)
[2017-09-17] MEDS: GLYCOPYRROLATE 1 MG TABLET GT SCH ×4 (05:45→23:12)
[2017-09-17] MEDS: BACLOFEN (10 MG) 10 MG TABLET GT SCH ×3 (05:45→20:17)
[2017-09-17] MEDS: LEVOTHYROXINE SODIUM 125 MCG TABLET GT SCH (05:45)
[2017-09-17 07:50] VITALS: BP 124/78
[2017-09-17] MEDS: HYDROGEN PEROXIDE 480 ML BOTTLE TP SCH ×2 (09:00→20:18)
[2017-09-17] MEDS: ZINC OXIDE 30 GM TUBE TP SCH ×4 (09:00→20:18)
[2017-09-17] MEDS: AMIODARONE HCL 200 MG TABLET GT SCH (09:51)
[2017-09-17] MEDS: POLYETHYLENE GLYCOL 3350 17 GM POWD.PACK GT SCH (09:51)
[2017-09-17] MEDS: POLYVINYL ALCOHOL 15 ML BOTTLE EACHEYE SCH ×4 (09:51→20:17)
[2017-09-17] MEDS: OMEPRAZOLE 10 MG CAPSULE.DR GT SCH (09:51)
[2017-09-17] MEDS: ACIDOPHILUS/BULGARICUS 1 EACH TAB.CHEW GT SCH (09:51)
[2017-09-17] MEDS: POTASSIUM CHLORIDE 20 MEQ/15 ML ML GT SCH (09:51)
[2017-09-17] MEDS: HEPARIN SODIUM, PORCINE 5000 UNITS/1 ML VIAL SQ SCH ×2 (09:52→20:18)
--- NOTE | 2017-09-17 10:00 | NUR ---
Patient found with sacrococcyx excoriation and referred for wound consultation.
--- NOTE | 2017-09-17 11:05 | NUR ---
made rounds and seen the pt and no new orders noted.
[2017-09-17] MEDS: ASCORBIC ACID 500 MG TABLET GT SCH (20:17)
[2017-09-17] MEDS: MULTIVIT, IRON, MIN NO. 8, FA 1 TAB GT SCH (20:17)
[2017-09-17] MEDS: FINASTERIDE (5 MG) 5 MG TABLET GT SCH (20:17)
[2017-09-17] MEDS: DOCUSATE SODIUM LIQ 100 MG/10 ML UDC GT SCH (20:17)
[2017-09-17 20:28] VITALS: BP 127/72
[2017-09-17] MEDS: SENNOSIDES 8.6 MG TABLET PO SCH (21:19)
[2017-09-18] MEDS: IPRATROPIUM NEB FS 0.5 MG/2.5 ML AMPUL.NEB NEB SCH ×2 (00:52→07:27)
[2017-09-18] MEDS: ALBUTEROL FS 2.5 MG/3 ML VIAL.NEB NEB SCH ×2 (00:52→07:27)
[2017-09-18] MEDS: LEVOTHYROXINE SODIUM 125 MCG TABLET GT SCH (05:49)
[2017-09-18] MEDS: GLYCOPYRROLATE 1 MG TABLET GT SCH (05:49)
[2017-09-18] MEDS: BACLOFEN (10 MG) 10 MG TABLET GT SCH (05:49)
[2017-09-18 07:53] VITALS: BP 107/72
[2017-09-18 08:32] VITALS: BP 107/72
[2017-09-18] MEDS: AMIODARONE HCL 200 MG TABLET GT SCH (08:32)
[2017-09-18] MEDS: OMEPRAZOLE 10 MG CAPSULE.DR GT SCH (08:33)
[2017-09-18] MEDS: POLYVINYL ALCOHOL 15 ML BOTTLE EACHEYE SCH (08:34)
[2017-09-18] MEDS: POTASSIUM CHLORIDE 20 MEQ/15 ML ML GT SCH (08:34)
[2017-09-18] MEDS: ACIDOPHILUS/BULGARICUS 1 EACH TAB.CHEW GT SCH (08:34)
[2017-09-18] MEDS: ZINC OXIDE 30 GM TUBE TP SCH ×2 (08:36)
[2017-09-18] MEDS: POLYETHYLENE GLYCOL 3350 17 GM POWD.PACK GT SCH (08:36)
[2017-09-18] MEDS: HYDROGEN PEROXIDE 480 ML BOTTLE TP SCH (08:36)
[2017-09-18] MEDS: HEPARIN SODIUM, PORCINE 5000 UNITS/1 ML VIAL SQ SCH (08:46)
[2017-09-18] MEDS: RENAL NOVASOURCE 1,000 ML BOTTLE GT PRN (11:29)
== END 2017-09-16 23:59 | disposition still patient (30) | DRG 189 ==
LOC: SA
PROC: 05H633Z Insertion of Infusion Device into Left Subclavian Vein, Percutaneous Approach (ICD-10-PCS; principal; 2017-05-10)
PROC: B547ZZA Ultrasonography of Left Subclavian Vein, Guidance (ICD-10-PCS; 2017-05-10)
PROC: 05H533Z Insertion of Infusion Device into Right Subclavian Vein, Percutaneous Approach (ICD-10-PCS; 2017-05-19)
PROC: B546ZZA Ultrasonography of Right Subclavian Vein, Guidance (ICD-10-PCS; 2017-05-19)
DX: J96.10 Chronic respiratory failure, unspecified whether with hypoxia or hypercapnia (principal); G93.1 Anoxic brain damage, not elsewhere classified; R40.3 Persistent vegetative state; L89.159 Pressure ulcer of sacral region, unspecified stage; R53.2 Functional quadriplegia; E87.8 Other disorders of electrolyte and fluid balance, not elsewhere classified; I47.1 Supraventricular tachycardia; Z93.0 Tracheostomy status; R13.10 Dysphagia, unspecified; N18.9 Chronic kidney disease, unspecified; I25.10 Atherosclerotic heart disease of native coronary artery without angina pectoris; Z93.1 Gastrostomy status; Z85.850 Personal history of malignant neoplasm of thyroid; D63.8 Anemia in other chronic diseases classified elsewhere; M20.40 Other hammer toe(s) (acquired), unspecified foot; I73.9 Peripheral vascular disease, unspecified; R33.9 Retention of urine, unspecified; R25.3 Fasciculation; Z22.322 Carrier or suspected carrier of Methicillin resistant Staphylococcus aureus
CPT/HCPCS: 31720; 36415; 36569; 71010-TC; 71250-TC; 73562; 73564-TC; 74000-TC; 80048-TC; 80053-TC; 80202-TC; 81000-TC; 82306; 82565-TC; 82962-TC; 83735-TC; 84100-TC; 84443-TC; 84520-TC; 84550-TC; 85025-TC; 85652-TC; 86580-TC; 87040-TC; 87070-TC; 87081-TC; 87086-TC; 87186-TC; 94003-TC; 94640-TC; 94762-TC; 94799-TC; 99082-TC; A4216; A4217; A4349; A4606; A4623; A6253; A6402; A7526; J1644; J2185; J2405; J2543; J3260; J3370; J3490; J7030; J7040; J7060; J8597; Q2036; Q9963; Z7610

== ENCOUNTER → 2017-01-27 | Outpatient (CLI) | payer MEDICARE, MEDICAID | END | disposition home or self-care (01) | LOC: CT 06:56 | PROVIDERS: ATTEND Internal Medicine | DX: J98.11 Atelectasis (principal); I25.10 Atherosclerotic heart disease of native coronary artery without angina pectoris; R91.1 Solitary pulmonary nodule; N28.1 Cyst of kidney, acquired; Z90.89 Acquired absence of other organs; Z93.0 Tracheostomy status | CPT/HCPCS: 71250-TC ==

== ENCOUNTER 2017-02-28 14:33 | Inpatient (IN) | payer MEDICARE, MEDICAID ==
[~2017-02-28] VITALS: Ht 172.7 cm; Wt 69.5 kg
--- NOTE | 2017-02-28 15:55 | NUR ---
SALES AND TRAINING SPECIALIST NOTES RECEIVED PATIENT REPORT FROM JAYSON BUTT.
[2017-02-28 16:00] VITALS: BP 97/57
--- NOTE | 2017-02-28 16:20 | NUR ---
INTERN RETAIL OPENING RECEIVED PATIENT FROM SUB ACUTE NON VERBAL EYES OPEN. TRACH COOL AEROSOL AT 6LPM. NO S/S SOB, DIFFICULTY BREATHING OR PAIN. PER DAQUAN TYLER PATIENT FAMILY MEMBERS NOTIFIED OF TRANSFER. ADRI AT BEDSIDE FOR VS. ADELINA BED ON, RAILS UPX3 FOR SAFETY. MD PARRA NOTIFIED OF ADMISSION
[2017-02-28] MEDS ORDERED: diphenhydrAMINE HCL 50 MG/ML VIAL IV PRN (17:00)
[2017-02-28] MEDS ORDERED: MAGNESIUM HYDROXIDE 30 ML UDC PO PRN (17:00)
[2017-02-28] MEDS ORDERED: Z GUARD REMEDY 2 OZ OINT TP PRN (17:00)
[2017-02-28] MEDS ORDERED: HYDROCODONE/APAP 5/325MG 1 EACH TABLET PO PRN (17:00)
[2017-02-28] MEDS ORDERED: VANCOMYCIN 1.25 GM in IV D5W 500 ML IV SCH (17:00)
[2017-02-28] MEDS ORDERED: ONDANSETRON HCL/PF 4 MG/2 ML VIAL IVP PRN (17:00)
[2017-02-28] MEDS ORDERED: ZOLPIDEM TARTRATE 5 MG TABLET PO PRN (17:00)
[2017-02-28] MEDS ORDERED: IV NS 0.9% 1,000 ML BAG IV PRN (17:00)
[2017-02-28] MEDS ORDERED: MAG HYDROX/AL HYDROX/SIMETH 30 ML UDC PO PRN (17:00)
--- NOTE | 2017-02-28 17:00 | NUR ---
SUPERVISOR CELL OPERATION NOTES MD AWARE MED RECON AWAITING
--- NOTE | 2017-02-28 17:02 | NUR ---
MS RN NOTES MD NOTIFIED OF SEPSIS PROTOCOL BEING INITIATED. 2000 ML BOLUS BEING ORDERED PER PATIENT WEIGHT. CHEST X RAY COMPLETED. ORDERED LACTIC ACID STAT. URINE CX SENT FOR LAB MOTEL MAID AND BLOOD CX TAKEN. TEMP 99.7 ICE APPLIED
[2017-02-28] MEDS ORDERED: IV SET PRIMARY PUMP SET 1 EA INFUS.SET MC ONE (17:09)
[2017-02-28] MEDS ORDERED: SECONDARY IV SET 1 EA INFUS.SET MC ONE (17:09)
[2017-02-28] MEDS ORDERED: FEE PK DOSING 1 MIN EA MC ONE (17:24)
[2017-02-28] MEDS: ENOXAPARIN SODIUM 40 MG/0.4 ML DISP.SYRIN SQ SCH (17:27)
--- NOTE | 2017-02-28 18:17 | NUR ---
HOURLY SIGN LANGUAGE INTERPRETER NOTES ID IS AWARE BLOOD CULTURES COMPLETED IN SUB ACUTE JUST BEFORE TRANSFER
--- NOTE | 2017-02-28 18:22 | NUR ---
SCHOOL BUSINESS MANAGER NOTES MESSAGE TO SASHA FOR MIDLINE INSERTION ETA
[2017-02-28] MEDS: VANCOMYCIN 0.75 GM in IV D5W 250 ML IV SCH (18:37)
--- NOTE | 2017-02-28 18:40 | NUR ---
COTTON CLEANER CLOSING PATIENT NO CHANGES AT THIS TIME. SEPSIS PROTOCOL IN PLACE. HEELS AND ELBOWS OFFLOADED. IV SITE PATENT AND NO S/S INFILTRATION. TELE NSR 102 AT THIS TIME. STILL AWAITING MD FOR MEDRECON WILL MESSAGE AGAIN. CARE WILL BE ENDORSED TO RN FOR MAIDA
--- NOTE | 2017-02-28 18:48 | NUR ---
SENIOR PROCUREMENT SPECIALIST NOTES SASHA RN AT BEDSIDE FOR MIDLINE INSERTION
--- NOTE | 2017-02-28 18:55 | NUR ---
COURTROOM CLERK NOTES MESSAGE TO DR PARRA IN RE TO LACTIC ACID LEVEL
--- NOTE | 2017-02-28 19:30 | NUR ---
TELE/RN RECEIVE PATIENT EYES CLOSED, NON VERBAL, APPEAR COMFORTABLE, NO DISTRESS NOTED, T PIECE WITH COOL AEROSOL FIO2 28%, 6L O2, HOB ELEVATED. WILL MONITOR.
[2017-02-28 20:00] VITALS: BP 103/62
--- NOTE | 2017-02-28 20:04 | NUR ---
TELE/RN SPOKE TO DR. VILLAREAL RE: MEDICATION RECONCILIATION AND PHOSPHOROUS LEVEL = 2.0. ORDER RECEIVED TO RE-START THE PREVIOUS GT FEEDING ORDER. MD WILL CHECK THE CHART.
[2017-02-28 20:22] LABS: BILIRUBIN,DIRECT 0.1 mg/dL (0.0-0.2); BILIRUBIN,TOTAL 0.7 mg/dL (0.2-1.0)
[2017-02-28] MEDS ORDERED: HYDROCODONE/APAP 5/325MG 1 EACH TABLET GT PRN (21:00)
[2017-02-28] MEDS ORDERED: BISACODYL SUPP (10 MG) 10 MG/SUPP.RECT SUPP.RECT RC PRN (21:00)
[2017-02-28] MEDS ORDERED: METOCLOPRAMIDE HCL 5 MG/5 ML UDC GT PRN (21:00)
[2017-02-28] MEDS ORDERED: HEPARIN SODIUM PORCINE 5000 UNIT SQ SCH (21:00)
[2017-02-28] MEDS: IV NS 0.9% 1,000 ML IV PRN (21:18)
[2017-02-28] MEDS: AZTREONAM 1 G in IV NS 0.9% 100 ML IV SCH (21:18)
[2017-02-28] MEDS: METRONIDAZOLE 500 MG TABLET PO SCH ×2 (21:26)
[2017-02-28] MEDS: MUPIROCIN OINT 2% 22 GM TUBE SCH (21:32)
[2017-02-28] MEDS: DOCUSATE SODIUM LIQ 100 MG/10 ML UDC GT SCH (22:03)
[2017-02-28] MEDS: RENAL NOVASOURCE 1,000 ML BOTTLE GT PRN (22:35)
[2017-03-01] VITALS: BP 100/61
[2017-03-01 00:04] LABS: APPEARANCE,URINE CLOUDY (CLEAR); BILIRUBIN,URINE 1+ (NEGATIVE); BLOOD, URINE 3+ Ery/uL (NEGATIVE); COLOR,URINE YELLOW (YELLOW); KETONES,URINE NEGATIVE (NEGATIVE); LEUKOCYTE ESTERASE ,URINE 2+ (NEGATIVE); NITRITE, URINE NEGATIVE (NEGATIVE); PH,URINE 8.5 (5.0-8.0); PROTEIN,URINE 2+ mg/dl (NEGATIVE); UGLUCOSE NEGATIVE (NEGATIVE)
[2017-03-01 00:12] LABS: RBC,URINE 51-80 /HPF (0-2)
[2017-03-01 00:13] LABS: BACTERIA,URINE Rare /HPF (None Seen); SQUAMOUS EPITHELIAL CELL,UR None Seen /HPF (None Seen); WBC,URINE 21-50 /HPF (0-3)
[2017-03-01] MEDS: ALBUTEROL FS 2.5 MG/3 ML VIAL.NEB IH SCH ×4 (02:41→20:37)
[2017-03-01] MEDS: IPRATROPIUM NEB FS 0.5 MG/2.5 ML AMPUL.NEB IH SCH ×4 (02:41→20:37)
[2017-03-01 04:00] VITALS: BP 108/64
[2017-03-01] MEDS: METRONIDAZOLE 500 MG TABLET PO SCH ×4 (04:55→20:18)
[2017-03-01] MEDS: AZTREONAM 1 G in IV NS 0.9% 100 ML IV SCH ×2 (04:56→12:54)
[2017-03-01] MEDS: LEVOTHYROXINE SODIUM 75 MCG TABLET GT SCH (05:07)
[2017-03-01] MEDS ORDERED: OMEPRAZOLE 20 MG GT SCH (06:00)
--- NOTE | 2017-03-01 06:17 | NUR ---
TELE/RN APPEAR SLEEPING, APPEAR COMFORTABLE, NO SIGNS OF DISTRESS NOTED, HOB ELEVATED, GT FEEDING INFUSING, ALL NEEDS ATTENDED AT THIS TIME. WILL CONTINUE TO MONITOR.
[2017-03-01 06:36] LABS: BASOPHILS # (AUTO) 0.1 /CMM (0.0-0.2); BASOPHILS % (AUTO) 0.3 % (0.0-2.0); HEMATOCRIT 34 % (39-51); HEMOGLOBIN 11.1 g/dL (13.5-17.5); LYMPHOCYTES % (AUTO) 7.7 % (20.0-44.0); MEAN CORPUSCULAR HEMOGLOBIN 26 PG (26.0-33.0); MEAN CORPUSCULAR HGB CONC 33 g/dl (31.0-36.0); MEAN CORPUSCULAR VOLUME 79 fL (80-96); MONOCYTES # (AUTO) 1.5 /CMM (0.1-1.30); MONOCYTES % (AUTO) 6.1 % (2.0-12.0); NEUTROPHILS # (AUTO) 21.7 /CMM (1.8-8.9); NEUTROPHILS % (AUTO) 85.9 % (43.0-81.0); PLATELET COUNT (AUTO) 262 /CMM (150-450); RDW COEFFICIENT OF VARIATION 18.7 (11.5-15.0); RED BLOOD CELL COUNT(AUTO) 4.33 MIL/uL (4.5-6.0); WHITE BLOOD COUNT (AUTO) 25.3 K/uL (4.3-11.0)
[2017-03-01 07:08] LABS: CALCIUM, SERUM 8.4 mg/dL (8.5-10.1); CREATININE 1.9 mg/dL (0.6-1.3); PHOSPHORUS 2.3 mg/dL (2.5-4.9); POTASSIUM 4.3 mmol/L (3.5-5.1)
[2017-03-01] MEDS ORDERED: PANTOPRAZOLE 40 MG TABLET.DR PO SCH (07:30)
--- NOTE | 2017-03-01 07:30 | NUR ---
RN OPENING NOTES RECEIVED PATIENT IN BED, ASLEEP HOB ELEVATED. NO SOB OR DISTRESS NOTED. PATIENT ON VENTILATOR. ON TELE MONITOR SR HEART RATE OF 86. NON VERBAL, IV INTACT INTACT AND PATENT. KEPT PATIENT CLEAN AND COMFORTABLE IN BED, CALL LIGHT WITHIN PATIENT REACH, WILL CONTINUE TO MONITOR ACCORDINGLY.
[2017-03-01 08:00] VITALS: BP 99/61
[2017-03-01] MEDS ORDERED: POLYVINYL ALCOHOL 15 ML BOTTLE OP PRN (08:30)
[2017-03-01] MEDS ORDERED: [UNRECOGNIZED DRUG - OTHER] GT SCH (09:00)
[2017-03-01] MEDS ORDERED: SENNOSIDES 8.8 MG/5 ML UDC GT SCH (09:00)
[2017-03-01] MEDS: AMIODARONE HCL 200 MG TABLET GT SCH (09:00)
[2017-03-01] MEDS ORDERED: POTASSIUM CHLORIDE 20 MEQ POWDER PACKET GT SCH (09:00)
--- NOTE | 2017-03-01 09:10 | NUR ---
RN NOTES CALLED TP ASK FOR STATUS OF PATIENT.
[2017-03-01] MEDS: POLYETHYLENE GLYCOL 3350 17 GM POWD.PACK GT SCH (09:52)
[2017-03-01] MEDS: PANTOPRAZOLE 40 MG/PACK PACK GT SCH (09:53)
[2017-03-01] MEDS: ACIDOPHILUS/BULGARICUS 1 EACH TAB.CHEW GT SCH (09:53)
[2017-03-01] MEDS: DOCUSATE SODIUM LIQ 100 MG/10 ML UDC GT SCH ×2 (09:53→20:18)
[2017-03-01] MEDS: ASCORBIC ACID SYRUP 500 MG/5 ML UDC GT SCH (09:53)
[2017-03-01] MEDS: MULTIVITAMINS,THERAPEUTIC 1 UDTAB TABLET GT SCH (09:53)
[2017-03-01] MEDS: MUPIROCIN OINT 2% 22 GM TUBE SCH ×2 (10:02→20:19)
--- NOTE | 2017-03-01 10:16 | NUR ---
ASSISTANT BASKETBALL COACH PATIENT WAS SEEN AND EVALUATED JUST PRIOR TO TRANSFER TO HOSPITAL AND PATIENT PRESENTS WITH BILATERAL BUTTOCKS EXCORIATIONS WITH REDNESS. RECOMMENDATION IS TO CONTINUE THE TREATMENT PLAN FOLLOWS: CLEANSE THE BILATERAL BUTTOCKS WITH SOAP AND WATER, RINSE AND DRY WELL, APPLY LOTRIMIN CREAM, FOLLOWED BY ZINC OXIDE MOISTURE BARRIER CREAM COVER WITH MEPILEX EVERY SHIFT. CONTINUE ALL SKIN MANAGEMENT AND PRESSURE ULCER PREVENTION, CONTINUE Q 2 HOUR TURNING SCHED PATIENT CONDITION PERMITS, CONTINUE HEEL FLOATING. PATIENT WITH CURRENT FAREED AT 8, 1ST STEP LOW AIRLOSS MATTRESS ORDERED AND IN USE. ALL SKIN MANAGEMENT DISCUSSED WITH NURSING STAFF. MD IN AGREEMENT WITH PLAN OF CARE.
[2017-03-01] MEDS ORDERED: METOCLOPRAMIDE HCL 10 MG/10 ML UDC GT PRN (11:00)
[2017-03-01] MEDS ORDERED: SECONDARY IV SET 1 EA INFUS.SET MC ONE (11:11)
[2017-03-01] MEDS: VANCOMYCIN 0.75 GM in IV D5W 250 ML IV SCH (11:20)
[2017-03-01] MEDS: CLOTRIMAZOLE 1% 15 GM TUBE TP SCH ×2 (12:55→20:19)
[2017-03-01] MEDS: ZINC OXIDE 30 GM TUBE TP SCH ×2 (12:55→20:28)
--- NOTE | 2017-03-01 15:30 | NUR ---
RN NOTES PATIENT IS ASLEEP IN BED WITH NO SOB OR DISTRESS NOTED. IS AT BEDSIDE.
[2017-03-01 16:00] VITALS: BP 98/56
[2017-03-01] MEDS ORDERED: NEUTRA PHOS 1 POWD.PACKET GT ONE (16:00)
[2017-03-01] MEDS: IV NS 0.9% 1,000 ML IV PRN (16:59)
[2017-03-01] MEDS: ACETAMINOPHEN 325 MG TABLET PO PRN (16:59)
[2017-03-01] MEDS ORDERED: ACET650S26 GT (17:33)
[2017-03-01] MEDS ORDERED: POTA10CA43 GT (17:33)
[2017-03-01] MEDS ORDERED: HEPA10009 SQ (17:33)
[2017-03-01] MEDS ORDERED: CLOT15CR35 TP (17:33)
[2017-03-01] MEDS ORDERED: POLY15DR40 EACHEYE (17:33)
[2017-03-01] MEDS ORDERED: MAG30ORA GT (17:33)
[2017-03-01] MEDS ORDERED: NYST60PO TP (17:33)
[2017-03-01] MEDS ORDERED: ACID1TAB12 GT (17:33)
[2017-03-01] MEDS ORDERED: HYDR1SOL TP (17:33)
[2017-03-01] MEDS ORDERED: LEVO125T8 GT (17:33)
[2017-03-01] MEDS ORDERED: MAGN400O6 GT (17:33)
[2017-03-01] MEDS ORDERED: BACL10TA GT (17:33)
--- NOTE | 2017-03-01 18:46 | NUR ---
RN CLOSING NOTES ALL NEEDS PROVIDED, ATTENDED, AND ANTICIPATED. KEPT PATIENT CLEAN AND COMFORTABLE IN BED. CALL LIGHT WITHIN PATIENT REACH, WILL CONTINUE TO MONITOR ACCORDINGLY. ENDORSED TO NEXT SHIFT RN TO CONTINUE CARE
--- NOTE | 2017-03-01 19:49 | NUR ---
ms/rn notes patient in hob elevated. awake, eyes open, no grimace. able to suction some secretions. on cool aerosol with settings, o2 sat at 93% pulse 96%. no s/s of sob or distress. will continue to provide care and reposition for comfort.
[2017-03-01 20:00] VITALS: BP 119/62
[2017-03-01] MEDS: ZINC OXIDE 30 GM TUBE TP PRN ×2 (20:18→20:26)
[2017-03-01] MEDS: FINASTERIDE (5 MG) 5 MG TABLET GT SCH (20:18)
[2017-03-01] MEDS: ENOXAPARIN SODIUM 40 MG/0.4 ML DISP.SYRIN SQ SCH (20:21)
[2017-03-01] MEDS: MEROPENEM 500 MG in IV NS 0.9% 50 ML IV SCH (21:56)
[2017-03-01] MEDS: GLYCOPYRROLATE 1 MG TABLET GT SCH (21:56)
[2017-03-01] MEDS: SENNOSIDES 8.6 MG TABLET GT SCH (21:57)
[2017-03-02] MEDS: ALBUTEROL FS 2.5 MG/3 ML VIAL.NEB IH SCH ×4 (01:36→19:17)
[2017-03-02] MEDS: IPRATROPIUM NEB FS 0.5 MG/2.5 ML AMPUL.NEB IH SCH ×4 (01:36→19:17)
[2017-03-02] MEDS: RENAL NOVASOURCE 1,000 ML BOTTLE GT PRN (01:38)
[2017-03-02] MEDS: IV NS 0.9% 1,000 ML IV PRN ×2 (03:45→22:49)
[2017-03-02] MEDS: LEVOTHYROXINE SODIUM 75 MCG TABLET GT SCH (05:03)
[2017-03-02] MEDS: METRONIDAZOLE 500 MG TABLET PO SCH ×3 (05:03→21:51)
[2017-03-02] MEDS: VANCOMYCIN 0.75 GM in IV D5W 250 ML IV SCH (05:04)
--- NOTE | 2017-03-02 06:33 | NUR ---
ms/rn closing notes patient in hob elevatesd. on cool aerosol w/ t piece, non verbal and obtunded, gtube feeding running w/ no residual. victoria with urine draining.on iv ns at 75 ml with midline on right ac and hep lock.blood draw today am. will endorse to am rn for continue of care. bed in lock position , attend to needs. monitoring for any s/s of sob or distress.
[2017-03-02 07:12] LABS: BASOPHILS % (AUTO) 0.2 % (0.0-2.0); EOSINOPHILS # (AUTO) 0.1 /CMM (0.0-0.7); EOSINOPHILS % (AUTO) 0.4 % (0.0-6.0); HEMATOCRIT 30 % (39-51); HEMOGLOBIN 9.7 g/dL (13.5-17.5); LYMPHOCYTES # (AUTO) 1.3 /CMM (0.8-4.8); LYMPHOCYTES % (AUTO) 8.7 % (20.0-44.0); MEAN CORPUSCULAR HEMOGLOBIN 26 PG (26.0-33.0); MEAN CORPUSCULAR HGB CONC 32 g/dl (31.0-36.0); MEAN CORPUSCULAR VOLUME 80 fL (80-96); MONOCYTES % (AUTO) 6.5 % (2.0-12.0); NEUTROPHILS # (AUTO) 12.4 /CMM (1.8-8.9); NEUTROPHILS % (AUTO) 84.2 % (43.0-81.0); PLATELET COUNT (AUTO) 229 /CMM (150-450); RDW COEFFICIENT OF VARIATION 19.4 (11.5-15.0); RED BLOOD CELL COUNT(AUTO) 3.77 MIL/uL (4.5-6.0); WHITE BLOOD COUNT (AUTO) 14.7 K/uL (4.3-11.0)
[2017-03-02 07:27] LABS: CALCIUM, SERUM 8.1 mg/dL (8.5-10.1); CREATININE 1.7 mg/dL (0.6-1.3); MAGNESIUM 1.9 mg/dL (1.8-2.4); PHOSPHORUS 2.5 mg/dL (2.5-4.9)
[2017-03-02 07:36] LABS: THYROID STIMULATING HORMONE 0.67 uIU/mL (0.358-3.74)
[2017-03-02 07:59] VITALS: BP 122/65
[2017-03-02 08:00] VITALS: BP 122/65
[2017-03-02] MEDS: GLYCOPYRROLATE 1 MG TABLET GT SCH ×2 (09:00→16:43)
[2017-03-02] MEDS: MULTIVITAMINS,THERAPEUTIC 1 UDTAB TABLET GT SCH (11:04)
[2017-03-02] MEDS: ASCORBIC ACID SYRUP 500 MG/5 ML UDC GT SCH (11:04)
[2017-03-02] MEDS: DOCUSATE SODIUM LIQ 100 MG/10 ML UDC GT SCH ×2 (11:04→21:52)
[2017-03-02] MEDS: PANTOPRAZOLE 40 MG/PACK PACK GT SCH (11:04)
[2017-03-02] MEDS: AMIODARONE HCL 200 MG TABLET GT SCH (11:08)
[2017-03-02] MEDS: ACIDOPHILUS/BULGARICUS 1 EACH TAB.CHEW GT SCH (11:09)
[2017-03-02] MEDS: MEROPENEM 500 MG in IV NS 0.9% 50 ML IV SCH (11:09)
[2017-03-02] MEDS: POLYETHYLENE GLYCOL 3350 17 GM POWD.PACK GT SCH (11:09)
[2017-03-02] MEDS: MUPIROCIN OINT 2% 22 GM TUBE SCH ×2 (11:10→21:58)
[2017-03-02] MEDS: ZINC OXIDE 30 GM TUBE TP SCH ×2 (11:11→21:58)
[2017-03-02] MEDS: CLOTRIMAZOLE 1% 15 GM TUBE TP SCH ×2 (11:11→21:57)
[2017-03-02 11:31] VITALS: BP 127/65
--- NOTE | 2017-03-02 12:19 | NUR ---
G-TUBE CLOG RESOLVED. PATIENT ADL CARE COMPLETE. MEDICATION IN NOW IS MIRALAX. NOC NURSE NOTED CLOG ON CHANGE OF SHIFT. CALL FROM PATIENT SPOUSE REQUESTING PATIENT TO GO BACK TO SUB ACUTE UNIT.
[2017-03-02] MEDS: BACLOFEN (10 MG) 10 MG TABLET GT SCH ×2 (13:00→21:51)
[2017-03-02] MEDS: SOD FERRIC GLUC 125 MG in IV NS 0.9% 100 ML IV SCH (14:00)
[2017-03-02 16:00] VITALS: BP 154/73
--- NOTE | 2017-03-02 16:30 | NUR ---
MS RN NOTES RECEIVED REPORT FROM REGISTRY NURSE. PATIENT IS STABLE. NONVERBAL, VEGETATIVE STATE. TREVINO CATHETER IS INTACT PATENT, G TUBE PATENT AND INTACT. RIGHT UPPER ARM MIDLINE INTACT AND PATENT. WILL CONTINUE TO MONITOR THROUGHOUT SHIFT.
--- NOTE | 2017-03-02 19:06 | NUR ---
MS RN NOTES PATIENT IS STABLE. NONVERBAL, VEGETATIVE STATE. TREVINO CATHETER IS INTACT PATENT, G TUBE PATENT AND INTACT. RIGHT UPPER ARM MIDLINE INTACT AND PATENT. PATIENT RESTING COMFORTABLY IN BED. WILL ENDORSE CARE TO PM SHIFT.
--- NOTE | 2017-03-02 19:10 | NUR ---
RN NOTE RECEIVED REPORT. PT ON NON-VERBAL, OBTUNDED. APPEARS COMFORTABLE. ON T-PIECE COOL AEROSOL. G TUBE INTACT/FLUSHED/NO RESIDUAL. IV INTACT AND PATENT. AT BEDSIDE - WILL CONT TO MONITOR.
[2017-03-02 20:00] VITALS: BP 137/78
[2017-03-02] MEDS: SENNOSIDES 8.6 MG TABLET GT SCH (21:51)
[2017-03-02] MEDS: FINASTERIDE (5 MG) 5 MG TABLET GT SCH (21:52)
[2017-03-02] MEDS: MEROPENEM 1 G in IV NS 0.9% 100 ML IV SCH (21:52)
[2017-03-02] MEDS: ZINC OXIDE 30 GM TUBE TP PRN (21:58)
[2017-03-02] MEDS: NYSTATIN TOP POWDER 15 GM BOTTLE TP SCH (21:58)
[2017-03-02] MEDS: ENOXAPARIN SODIUM 40 MG/0.4 ML DISP.SYRIN SQ SCH (22:00)
[2017-03-03] MEDS: VANCOMYCIN 0.75 GM in IV D5W 250 ML IV SCH ×2 (00:45→18:03)
[2017-03-03] MEDS: IPRATROPIUM NEB FS 0.5 MG/2.5 ML AMPUL.NEB IH SCH ×4 (01:27→20:15)
[2017-03-03] MEDS: ALBUTEROL FS 2.5 MG/3 ML VIAL.NEB IH SCH ×4 (01:27→20:15)
--- NOTE | 2017-03-03 02:00 | NUR ---
RN NOTE NO S/S OF ANY DISTRESS AT THIS TIME. WILL MONITOR.
[2017-03-03] MEDS: RENAL NOVASOURCE 1,000 ML BOTTLE GT PRN (03:12)
[2017-03-03] MEDS: METRONIDAZOLE 500 MG TABLET PO SCH ×3 (05:14→21:36)
[2017-03-03] MEDS: BACLOFEN (10 MG) 10 MG TABLET GT SCH ×3 (05:15→21:35)
[2017-03-03] MEDS ORDERED: LEVOTHYROXINE SODIUM 125 MCG TABLET GT SCH (06:00)
--- NOTE | 2017-03-03 06:26 | NUR ---
RN NOTE NO SIGNIFICANT CHANGES THIS SHIFT. PT OBTUNDED - ON TRACH TO COOL AERESOL. KEPT CLEAN AND DRY T/O SHIFT, APPEARS COMFORTABLE. NO S/S OF ANY DISTRESS AT THIS TIME. IV INTACT AND PATENT. TOLERATING GTF WELL, NO RESIDUAL. F/C DRAINING. WILL F/U WITH DAY SHIFT FOR MAIDA.
[2017-03-03 06:34] LABS: BASOPHILS % (AUTO) 0.3 % (0.0-2.0); EOSINOPHILS # (AUTO) 0.2 /CMM (0.0-0.7); EOSINOPHILS % (AUTO) 1.7 % (0.0-6.0); HEMATOCRIT 33 % (39-51); HEMOGLOBIN 10.7 g/dL (13.5-17.5); LYMPHOCYTES % (AUTO) 7.8 % (20.0-44.0); MEAN CORPUSCULAR HEMOGLOBIN 25 PG (26.0-33.0); MEAN CORPUSCULAR HGB CONC 32 g/dl (31.0-36.0); MEAN CORPUSCULAR VOLUME 79 fL (80-96); MONOCYTES # (AUTO) 0.9 /CMM (0.1-1.30); NEUTROPHILS # (AUTO) 10.3 /CMM (1.8-8.9); NEUTROPHILS % (AUTO) 83.2 % (43.0-81.0); PLATELET COUNT (AUTO) 230 /CMM (150-450); RDW COEFFICIENT OF VARIATION 18.9 (11.5-15.0); WHITE BLOOD COUNT (AUTO) 12.4 K/uL (4.3-11.0)
[2017-03-03 07:01] LABS: CALCIUM, SERUM 8.4 mg/dL (8.5-10.1); CREATININE 1.3 mg/dL (0.6-1.3); MAGNESIUM 1.8 mg/dL (1.8-2.4); POTASSIUM 3.9 mmol/L (3.5-5.1)
--- NOTE | 2017-03-03 07:30 | NUR ---
RECEIVED PT.OBTUNDED NON-VERBAL,VS STABLE.APPEARS COMFORTABLE. TRACH IN PLACE.SIDE RAILS UP.
[2017-03-03 08:00] VITALS: BP 154/78
[2017-03-03] MEDS: POLYETHYLENE GLYCOL 3350 17 GM POWD.PACK GT SCH (10:56)
[2017-03-03] MEDS: ASCORBIC ACID SYRUP 500 MG/5 ML UDC GT SCH (10:57)
[2017-03-03] MEDS: NYSTATIN TOP POWDER 15 GM BOTTLE TP SCH ×2 (10:57→21:39)
[2017-03-03] MEDS: GLYCOPYRROLATE 1 MG TABLET GT SCH ×2 (10:57→18:03)
[2017-03-03] MEDS: CLOTRIMAZOLE 1% 15 GM TUBE TP SCH ×2 (10:58→21:38)
[2017-03-03] MEDS: ACIDOPHILUS/BULGARICUS 1 EACH TAB.CHEW GT SCH (10:58)
[2017-03-03] MEDS: AMIODARONE HCL 200 MG TABLET GT SCH (10:58)
[2017-03-03] MEDS: MULTIVITAMINS,THERAPEUTIC 1 UDTAB TABLET GT SCH (10:59)
[2017-03-03] MEDS: PANTOPRAZOLE 40 MG/PACK PACK GT SCH (10:59)
[2017-03-03] MEDS: MUPIROCIN OINT 2% 22 GM TUBE SCH ×2 (11:00→21:39)
[2017-03-03] MEDS: ZINC OXIDE 30 GM TUBE TP SCH ×2 (11:01→21:48)
[2017-03-03] MEDS: MEROPENEM 1 G in IV NS 0.9% 100 ML IV SCH ×2 (11:19→21:44)
[2017-03-03] MEDS: DOCUSATE SODIUM LIQ 100 MG/10 ML UDC GT SCH ×2 (11:19→21:35)
--- NOTE | 2017-03-03 11:30 | NUR ---
IN TO VISIT TWICE.STATES PT. DOES NOT NEED TO BE IN ISOLATION.PT. BEING SUCTIONED AT LEAST HOURLY,FOR THICK WHITISH TINGED SPUTUM.
--- NOTE | 2017-03-03 14:20 | NUR ---
RESP. TX. IN OFTEN TO SEE PT,ADDITIONALLY SUCTIONING PT. ALONG WITH RN.
[2017-03-03] MEDS ORDERED: SECONDARY IV SET 1 EA INFUS.SET MC ONE (14:32)
[2017-03-03] MEDS: SOD FERRIC GLUC 125 MG in IV NS 0.9% 100 ML IV SCH (14:41)
[2017-03-03 16:00] VITALS: BP 123/67
[2017-03-03] MEDS ORDERED: NEUTRA PHOS 1 POWD.PACKET GT ONE (16:00)
[2017-03-03] MEDS: IV NS 0.9% 1,000 ML IV PRN (18:04)
--- NOTE | 2017-03-03 18:30 | NUR ---
NO CHANGE IN STATUS.
[2017-03-03 20:00] VITALS: BP 133/36
--- NOTE | 2017-03-03 20:00 | NUR ---
RECEIVED PATIENT IN BED, AWAKE, NON-VERBAL, ON COOL AEROSOL AT 6LPM, NO DISTRESS, KEPT HOB ELEVATED, SUCTIONED, SECRETIONS ARE MODERATE. 02 SAT 98%, PEG TUBE IS INFUSING WELL, TOLERATED WELL, NO VOMITING, TREVINO CATHETER IS DRAINING WELL WITH HILDA COLORED URINE. REPOSITIONED FOR COMFORT, WILL CONTINUE TO MONITOR.
--- NOTE | 2017-03-03 20:30 | NUR ---
TEMPERATURE IS 100.4F, SKIN IS WARM TO TOUCH, COOLING MEASURE PERFORMED, WILL GIVE TYLENOL
[2017-03-03] MEDS: ENOXAPARIN SODIUM 40 MG/0.4 ML DISP.SYRIN SQ SCH (21:35)
[2017-03-03] MEDS: FINASTERIDE (5 MG) 5 MG TABLET GT SCH (21:36)
[2017-03-03] MEDS: SENNOSIDES 8.6 MG TABLET GT SCH (21:36)
[2017-03-03] MEDS: ZINC OXIDE 30 GM TUBE TP PRN (21:37)
[2017-03-03] MEDS: ACETAMINOPHEN 325 MG TABLET PO PRN (21:57)
--- NOTE | 2017-03-03 22:00 | NUR ---
TYLENOL 650 MG VIA GT GIVEN, WILL GIVE BED BATH, COOLING MEASURE IN PLACE
--- NOTE | 2017-03-04 | NUR ---
BED BATH WITH COOL WATER PERFORMED, TEMPERATURE IS NOW 99F, WILL CONTINUE TO MONITOR.
[2017-03-04] MEDS: IPRATROPIUM NEB FS 0.5 MG/2.5 ML AMPUL.NEB IH SCH ×4 (01:19→19:16)
[2017-03-04] MEDS: ALBUTEROL FS 2.5 MG/3 ML VIAL.NEB IH SCH ×4 (01:19→19:16)
[2017-03-04] MEDS: BACLOFEN (10 MG) 10 MG TABLET GT SCH ×3 (05:06→21:48)
[2017-03-04] MEDS: METRONIDAZOLE 500 MG TABLET PO SCH ×3 (05:06→21:48)
[2017-03-04] MEDS: RENAL NOVASOURCE 1,000 ML BOTTLE GT PRN (05:08)
[2017-03-04] MEDS: LEVOTHYROXINE SODIUM 125 MCG TABLET GT SCH (06:00)
--- NOTE | 2017-03-04 06:00 | NUR ---
TEMPERATURE CHECKED REMAINED AT 99F.
--- NOTE | 2017-03-04 06:34 | NUR ---
PATIENT OBTUNDED, NO CHANGE OF CONDITION DURING SHIFT, NO SOB, T-PIECE IN GOOD WORKING CONDITION, O2 SAT STABLE AT 98%, NO DISTRESS, SUCTIONED FREQUENTLY NEEDED, KEPT HOB ELEVATED, PEG TUBE FEEDING INFUSING WELL, FLUSHED FREQUENTLY, TREVINO CATHETER DRAINING WELL WITH TEA COLORED URINE, REPOSITIONED PER PROTOCOL, WOUND CARE RENDERED, PROVIDED GOOD PERINEAL CARE, NEEDS ATTENDED, ALL DUE MEDICATION GIVEN. CALL WITHIN REACH.
[2017-03-04 07:00] LABS: BASOPHILS % (AUTO) 0.2 % (0.0-2.0); EOSINOPHILS # (AUTO) 0.2 /CMM (0.0-0.7); EOSINOPHILS % (AUTO) 1.7 % (0.0-6.0); HEMATOCRIT 34 % (39-51); HEMOGLOBIN 10.7 g/dL (13.5-17.5); LYMPHOCYTES # (AUTO) 2.2 /CMM (0.8-4.8); LYMPHOCYTES % (AUTO) 14.9 % (20.0-44.0); MEAN CORPUSCULAR HEMOGLOBIN 25 PG (26.0-33.0); MEAN CORPUSCULAR HGB CONC 32 g/dl (31.0-36.0); MEAN CORPUSCULAR VOLUME 79 fL (80-96); MONOCYTES # (AUTO) 1.1 /CMM (0.1-1.30); MONOCYTES % (AUTO) 7.8 % (2.0-12.0); NEUTROPHILS # (AUTO) 10.9 /CMM (1.8-8.9); NEUTROPHILS % (AUTO) 75.4 % (43.0-81.0); PLATELET COUNT (AUTO) 221 /CMM (150-450); RDW COEFFICIENT OF VARIATION 19.2 (11.5-15.0); RED BLOOD CELL COUNT(AUTO) 4.26 MIL/uL (4.5-6.0); WHITE BLOOD COUNT (AUTO) 14.5 K/uL (4.3-11.0)
[2017-03-04 07:33] LABS: CALCIUM, SERUM 8.5 mg/dL (8.5-10.1); CREATININE 1.3 mg/dL (0.6-1.3); POTASSIUM 4.1 mmol/L (3.5-5.1)
--- NOTE | 2017-03-04 07:40 | NUR ---
RN MS NOTES RECEIVED PATIENT IN BED, OBTUNDED, IN NO APPARENT DISTRESS, NO SOB NOTED, NO FACIAL GRIMACING NOTED. ON COOL AEROSOL 6LPM, TREVINO CATH PATENT, G TUBE PATENT, FEEDING INFUSING WELL, HOB KEPT ELEVATED. JUHI MIDLINE PATENT. ALL NEEDS MET, KEPT CLEAN AND DRY, CALL LIGHT WITHIN REACH.
[2017-03-04 08:00] VITALS: BP 132/71
[2017-03-04] MEDS: GLYCOPYRROLATE 1 MG TABLET GT SCH ×2 (09:00→16:00)
[2017-03-04] MEDS: IV NS 0.9% 1,000 ML IV PRN (09:00)
[2017-03-04] MEDS: MEROPENEM 1 G in IV NS 0.9% 100 ML IV SCH ×2 (09:00→21:46)
[2017-03-04] MEDS: POLYETHYLENE GLYCOL 3350 17 GM POWD.PACK GT SCH (09:01)
[2017-03-04] MEDS: ACIDOPHILUS/BULGARICUS 1 EACH TAB.CHEW GT SCH (09:01)
[2017-03-04] MEDS: MULTIVITAMINS,THERAPEUTIC 1 UDTAB TABLET GT SCH (09:01)
[2017-03-04] MEDS: DOCUSATE SODIUM LIQ 100 MG/10 ML UDC GT SCH ×2 (09:01→21:47)
[2017-03-04] MEDS: PANTOPRAZOLE 40 MG/PACK PACK GT SCH (09:02)
[2017-03-04] MEDS: AMIODARONE HCL 200 MG TABLET GT SCH (09:02)
[2017-03-04] MEDS: ASCORBIC ACID SYRUP 500 MG/5 ML UDC GT SCH (09:02)
[2017-03-04] MEDS: MUPIROCIN OINT 2% 22 GM TUBE SCH ×2 (09:03→21:49)
[2017-03-04] MEDS: CLOTRIMAZOLE 1% 15 GM TUBE TP SCH ×2 (09:03→21:49)
[2017-03-04] MEDS: ZINC OXIDE 30 GM TUBE TP SCH ×2 (09:05→21:50)
[2017-03-04] MEDS: NYSTATIN TOP POWDER 15 GM BOTTLE TP SCH ×2 (09:06→21:51)
[2017-03-04] MEDS ORDERED: IV SET PRIMARY PUMP SET 1 EA INFUS.SET MC ONE (10:28)
[2017-03-04] MEDS ORDERED: SECONDARY IV SET 1 EA INFUS.SET MC ONE (10:28)
[2017-03-04] MEDS: VANCOMYCIN 0.75 GM in IV D5W 250 ML IV SCH (11:28)
[2017-03-04] MEDS: SOD FERRIC GLUC 125 MG in IV NS 0.9% 100 ML IV SCH (14:58)
[2017-03-04] MEDS ORDERED: NEUTRA PHOS 1 POWD.PACKET GT ONE (15:30)
[2017-03-04 16:00] VITALS: BP 134/79
--- NOTE | 2017-03-04 18:48 | NUR ---
RN MS CLOSING NOTES PATIENT IN BED, OBTUNDED, IN NO APPARENT DISTRESS, ON COOL AEROSOL 6LPM. ALL DUES MEDS GIVEN, ALL NEEDS MET, KEPT CLEAN AND DRY. WOUNDS TREATMENTS DONE ORDERED AND PRN. TREVINO CATH PATENT WITH 800ML OUT PUT OF YELLOW URINE. RIGHT UPPER ARM MIDLINE PATENT, INFUSING NS AT 75ML/HR. G TUBE PATENT, RUNNING NOVASOURCE AT 40ML/HR. WILL ENDORSE CARE TO PM SHIFT.
--- NOTE | 2017-03-04 19:30 | NUR ---
RN OPENING NOTES RECEIVED REPORT FROM CHRISTIAN AGUILAR. FOUND Pt AWAKE IN BED. Pt IS OBTUNDED. ON COOL AEROSOL 6LPM T-PIECE. Pt IS ORIGINALLY FROM [address] [place] [address] SUB ACUTE. TREVINO CATHETER IN PLACE. GT FEED NOVASOURCE 40ML/HR INFUSING WELL. IV ACCESS JUHI MIDLINE NS @75ML/HR. SAFETY MEASURES IN PLACE. BED LOW, LOCKED, HOB ELEVATED, & SIDE RAILS UP. WILL CONTINUE TO MONITOR Pt THROUGHOUT THE NIGHT FOR SAFETY.
[2017-03-04 20:00] VITALS: BP 109/66
[2017-03-04] MEDS ORDERED: ERGOCALCIFEROL (VITAMIN D2) 8,000 UNIT/ML GT SCH ×2 (21:00)
[2017-03-04] MEDS: ENOXAPARIN SODIUM 40 MG/0.4 ML DISP.SYRIN SQ SCH (21:47)
[2017-03-04] MEDS: SENNOSIDES 8.6 MG TABLET GT SCH (21:48)
[2017-03-04] MEDS: FINASTERIDE (5 MG) 5 MG TABLET GT SCH (21:48)
[2017-03-05] VITALS: BP 117/80
[2017-03-05] MEDS: ALBUTEROL FS 2.5 MG/3 ML VIAL.NEB IH SCH ×4 (01:11→20:03)
[2017-03-05] MEDS: IPRATROPIUM NEB FS 0.5 MG/2.5 ML AMPUL.NEB IH SCH ×4 (01:11→20:03)
[2017-03-05] MEDS: IV NS 0.9% 1,000 ML IV PRN ×2 (02:05→21:00)
[2017-03-05 04:00] VITALS: BP 117/71
[2017-03-05] MEDS: METRONIDAZOLE 500 MG TABLET PO SCH ×3 (05:25→21:00)
[2017-03-05] MEDS: LEVOTHYROXINE SODIUM 125 MCG TABLET GT SCH (05:25)
[2017-03-05] MEDS: BACLOFEN (10 MG) 10 MG TABLET GT SCH ×3 (05:26→21:00)
[2017-03-05] MEDS: VANCOMYCIN 0.75 GM in IV D5W 250 ML IV SCH (05:26)
--- NOTE | 2017-03-05 06:30 | NUR ---
RN CLOSING NOTES NO SIGNIFICANT CHANGES DURING THE NIGHT. NO S/S OF ACUTE DISTRESS OR SOB NOTED. ALL NEEDS MET AND ATTENDED TO. SAFETY MEASURES CARRIED OUT. TREVINO CATHETER OUTPUT 600CC. WILL ENDORSE TO DAYSHIFT RN FOR Pt's MAIDA.
--- NOTE | 2017-03-05 07:30 | NUR ---
PATIENT RECEIVED RESTING COMFORTABLY IN BED WITH EYES CLOSED. NO S/S OR C/O PAIN OR DISTRESS NOTED. SIDE RAILS UP X2, CALL LIGHT LEFT WITHIN REACH. WILL CONTINUE PLAN OF CARE.
[2017-03-05 07:56] LABS: CALCIUM, SERUM 8.3 mg/dL (8.5-10.1); CREATININE 1.3 mg/dL (0.6-1.3); MAGNESIUM 1.7 mg/dL (1.8-2.4); PHOSPHORUS 2.4 mg/dL (2.5-4.9); POTASSIUM 4.2 mmol/L (3.5-5.1)
[2017-03-05 08:00] VITALS: BP 118/72
[2017-03-05] MEDS: POLYETHYLENE GLYCOL 3350 17 GM POWD.PACK GT SCH (08:38)
[2017-03-05] MEDS: ACIDOPHILUS/BULGARICUS 1 EACH TAB.CHEW GT SCH (08:38)
[2017-03-05] MEDS: ASCORBIC ACID SYRUP 500 MG/5 ML UDC GT SCH (08:38)
[2017-03-05] MEDS: DOCUSATE SODIUM LIQ 100 MG/10 ML UDC GT SCH ×2 (08:38→20:59)
[2017-03-05] MEDS: PANTOPRAZOLE 40 MG/PACK PACK GT SCH (08:38)
[2017-03-05] MEDS: MULTIVITAMINS,THERAPEUTIC 1 UDTAB TABLET GT SCH (08:38)
[2017-03-05] MEDS: AMIODARONE HCL 200 MG TABLET GT SCH (08:38)
[2017-03-05] MEDS: GLYCOPYRROLATE 1 MG TABLET GT SCH ×2 (08:38→16:08)
[2017-03-05] MEDS: NYSTATIN TOP POWDER 15 GM BOTTLE TP SCH ×2 (08:44→21:00)
[2017-03-05] MEDS: MUPIROCIN OINT 2% 22 GM TUBE SCH ×2 (08:44→21:01)
[2017-03-05] MEDS: MEROPENEM 1 G in IV NS 0.9% 100 ML IV SCH ×3 (08:44→21:06)
[2017-03-05] MEDS: CLOTRIMAZOLE 1% 15 GM TUBE TP SCH ×2 (08:44→21:00)
[2017-03-05] MEDS: ZINC OXIDE 30 GM TUBE TP PRN (08:45)
[2017-03-05 09:05] LABS: BASOPHILS % (AUTO) 0.2 % (0.0-2.0); EOSINOPHILS # (AUTO) 0.5 /CMM (0.0-0.7); EOSINOPHILS % (AUTO) 2.9 % (0.0-6.0); HEMATOCRIT 35 % (39-51); HEMOGLOBIN 10.9 g/dL (13.5-17.5); MEAN CORPUSCULAR HEMOGLOBIN 25 PG (26.0-33.0); MEAN CORPUSCULAR HGB CONC 32 g/dl (31.0-36.0); MEAN CORPUSCULAR VOLUME 80 fL (80-96); MONOCYTES # (AUTO) 1.3 /CMM (0.1-1.30); MONOCYTES % (AUTO) 8.3 % (2.0-12.0); NEUTROPHILS % (AUTO) 69.6 % (43.0-81.0); PLATELET COUNT (AUTO) 269 /CMM (150-450); RDW COEFFICIENT OF VARIATION 18.7 (11.5-15.0); RED BLOOD CELL COUNT(AUTO) 4.33 MIL/uL (4.5-6.0); WHITE BLOOD COUNT (AUTO) 15.8 K/uL (4.3-11.0)
[2017-03-05 11:11] LABS: *SPE A/G RATIO 0.9 (0.7-1.7); *SPE ALBUMIN 2.9 g/dL (2.9-4.4); *SPE ALPHA-1-GLOBULIN 0.3 g/dL (0.0-0.4); *SPE ALPHA-2-GLOBULIN 0.7 g/dL (0.4-1.0); *SPE BETA GLOBULIN 0.9 g/dL (0.7-1.3); *SPE GLOBULIN, TOTAL 3.1 g/dL (2.2-3.9); *SPE M-SPIKE Not Observed g/dL (Not Observed); *SPEGAMMA GLOBULIN 1.2 g/dL (0.4-1.8)
[2017-03-05] MEDS: ZINC OXIDE 30 GM TUBE TP SCH ×2 (11:12→21:03)
[2017-03-05] MEDS ORDERED: SECONDARY IV SET 1 EA INFUS.SET MC ONE (12:21)
[2017-03-05] MEDS: Magnesium 1GM/D5W 100ML PREMIX 100 ML IV SCH ×2 (12:30→13:35)
[2017-03-05] MEDS: SOD FERRIC GLUC 125 MG in IV NS 0.9% 100 ML IV SCH (14:06)
[2017-03-05] MEDS: RENAL NOVASOURCE 1,000 ML BOTTLE GT PRN (14:06)
[2017-03-05] MEDS ORDERED: NEUTRA PHOS 1 POWD.PACKET PO SCH (15:00)
[2017-03-05 16:00] VITALS: BP 110/69
--- NOTE | 2017-03-05 18:48 | NUR ---
CHANGE OF SHIFT REPORT PT RESTING COMFORTABLY IN BED WITH EYES CLOSED. NO S/S OR C/O PAIN OR DISTRESS NOTED. SIDE RAILS UP X2, CALL LIGHT LEFT WITHIN REACH. PT KEPT CLEAN, DRY, AND COMFORTABLE. NO SIGNIFICANT CHANGES SINCE PREVIOUS SHIFT. WILL GIVE REPORT TO DIANE BTUT.
--- NOTE | 2017-03-05 19:15 | NUR ---
RN OPEN NOTES RECEIVED PATIENT AWAKE IN BED. OBTUNDED. NO SIGNS OF DISTRESS OR DISCOMFORT. BREATHING EVEN AND UNLABORED. HAS T-PIECE ON 8LPM COOL AEROSAL. IV ACCESS IN RAC AND JUHI MIDLINE WITH NS INFUSING, PATENT AND INTACT, NO SIGNS OF REDNESS OR INFILTRATION. G TUBE FEEDING RUNNING, PATIENT TOLERATING WELL. F/C INTACT, DRAINING TO GRAVITY WITH HILDA FLUID NOTED. BED IN LOW LOCKED POSITION WITH SIDE RAILS X3. CALL LIGHT WITHIN REACH. WILL CONTINUE TO MONITOR.
[2017-03-05 20:00] VITALS: BP 147/86
[2017-03-05] MEDS: FINASTERIDE (5 MG) 5 MG TABLET GT SCH (20:59)
[2017-03-05] MEDS: SENNOSIDES 8.6 MG TABLET GT SCH (21:00)
[2017-03-05] MEDS: ENOXAPARIN SODIUM 40 MG/0.4 ML DISP.SYRIN SQ SCH (21:04)
[2017-03-06] MEDS ORDERED: SECONDARY IV SET 1 EA INFUS.SET MC ONE (00:08)
[2017-03-06] MEDS: VANCOMYCIN 0.75 GM in IV D5W 250 ML IV SCH ×2 (00:15→17:33)
[2017-03-06] MEDS: ALBUTEROL FS 2.5 MG/3 ML VIAL.NEB IH SCH ×3 (02:00→13:45)
[2017-03-06] MEDS: IPRATROPIUM NEB FS 0.5 MG/2.5 ML AMPUL.NEB IH SCH ×3 (02:00→13:45)
[2017-03-06] MEDS: MEROPENEM 1 G in IV NS 0.9% 100 ML IV SCH ×2 (04:23→12:39)
[2017-03-06] MEDS: BACLOFEN (10 MG) 10 MG TABLET GT SCH ×2 (04:23→12:39)
[2017-03-06] MEDS: METRONIDAZOLE 500 MG TABLET PO SCH ×2 (04:23→12:39)
[2017-03-06] MEDS: LEVOTHYROXINE SODIUM 125 MCG TABLET GT SCH (05:45)
--- NOTE | 2017-03-06 06:39 | NUR ---
RN CLOSING NOTES PATIENT RESTING IN BED. OBTUNDED. NO SIGNS OF DISTRESS OR DISCOMFORT. BREATHING EVEN AND UNLABORED. HAS T-PIECE ON 8LPM COOL AEROSAL. IV ACCESS IN RAC AND JUHI MIDLINE WITH NS INFUSING, PATENT AND INTACT, NO SIGNS OF REDNESS OR INFILTRATION. G TUBE FEEDING RUNNING, PATIENT TOLERATING WELL. F/C INTACT, DRAINING TO GRAVITY WITH HILDA FLUID NOTED. NO SIGNIFICANT CHANGES THROUGH THE NIGHT. PATIENT KEPT CLEAN DRY AND COMFORTABLE. REPOSITIONED Q2H. BED IN LOW LOCKED POSITION WITH SIDE RAILS X3. CALL LIGHT WITHIN REACH. WILL ENDORSE TO AM SHIFT FOR MAIDA.
[2017-03-06 08:00] VITALS: BP 149/82
[2017-03-06 08:21] LABS: CALCIUM, SERUM 8.1 mg/dL (8.5-10.1); CREATININE 1.3 mg/dL (0.6-1.3); PHOSPHORUS 2.9 mg/dL (2.5-4.9); POTASSIUM 3.8 mmol/L (3.5-5.1)
[2017-03-06 08:47] LABS: BASOPHILS # (AUTO) 0.1 /CMM (0.0-0.2); BASOPHILS % (AUTO) 0.8 % (0.0-2.0); EOSINOPHILS # (AUTO) 0.4 /CMM (0.0-0.7); EOSINOPHILS % (AUTO) 3.2 % (0.0-6.0); HEMATOCRIT 32 % (39-51); HEMOGLOBIN 9.9 g/dL (13.5-17.5); LYMPHOCYTES # (AUTO) 2.6 /CMM (0.8-4.8); MEAN CORPUSCULAR HEMOGLOBIN 25 PG (26.0-33.0); MEAN CORPUSCULAR HGB CONC 31 g/dl (31.0-36.0); MEAN CORPUSCULAR VOLUME 79 fL (80-96); MONOCYTES # (AUTO) 1.2 /CMM (0.1-1.30); MONOCYTES % (AUTO) 9.1 % (2.0-12.0); NEUTROPHILS # (AUTO) 8.8 /CMM (1.8-8.9); NEUTROPHILS % (AUTO) 66.9 % (43.0-81.0); PLATELET COUNT (AUTO) 224 /CMM (150-450); RDW COEFFICIENT OF VARIATION 18.7 (11.5-15.0); RED BLOOD CELL COUNT(AUTO) 4.01 MIL/uL (4.5-6.0); WHITE BLOOD COUNT (AUTO) 13.2 K/uL (4.3-11.0)
[2017-03-06] MEDS: ZINC OXIDE 30 GM TUBE TP SCH (09:00)
[2017-03-06] MEDS: ASCORBIC ACID SYRUP 500 MG/5 ML UDC GT SCH (09:06)
[2017-03-06] MEDS: POLYETHYLENE GLYCOL 3350 17 GM POWD.PACK GT SCH (09:06)
[2017-03-06] MEDS: PANTOPRAZOLE 40 MG/PACK PACK GT SCH (09:06)
[2017-03-06] MEDS: DOCUSATE SODIUM LIQ 100 MG/10 ML UDC GT SCH (09:07)
[2017-03-06] MEDS: MULTIVITAMINS,THERAPEUTIC 1 UDTAB TABLET GT SCH (09:07)
[2017-03-06] MEDS: AMIODARONE HCL 200 MG TABLET GT SCH (09:07)
[2017-03-06] MEDS: GLYCOPYRROLATE 1 MG TABLET GT SCH ×2 (09:07→17:33)
[2017-03-06] MEDS: ACIDOPHILUS/BULGARICUS 1 EACH TAB.CHEW GT SCH (09:07)
[2017-03-06] MEDS: ZINC OXIDE 30 GM TUBE TP PRN (09:07)
[2017-03-06] MEDS: NYSTATIN TOP POWDER 15 GM BOTTLE TP SCH (09:08)
[2017-03-06] MEDS: MUPIROCIN OINT 2% 22 GM TUBE SCH (09:08)
[2017-03-06] MEDS: CLOTRIMAZOLE 1% 15 GM TUBE TP SCH (09:08)
[2017-03-06] MEDS: SOD FERRIC GLUC 125 MG in IV NS 0.9% 100 ML IV SCH (14:30)
[2017-03-06 16:00] VITALS: BP 142/94
--- NOTE | 2017-03-06 19:00 | NUR ---
DC PT TO SUB ACUTE REPORT GIVEN TO JAYSON.
[2017-03-17] MEDS ORDERED: ERGOCALCIFEROL (VITAMIN D2) 8,000 UNIT/ML GT SCH (09:00)
== END 2017-03-06 19:15 | DRG 871 ==
LOC: TELE 15:57 → MED 03-01 12:55
PROVIDERS: ADMIT Internal Medicine; ATTEND Internal Medicine
PROC: 05H533Z Insertion of Infusion Device into Right Subclavian Vein, Percutaneous Approach (ICD-10-PCS; principal; 2017-02-28)
DX: A41.9 Sepsis, unspecified organism (principal); N17.0 Acute kidney failure with tubular necrosis; R53.2 Functional quadriplegia; J18.9 Pneumonia, unspecified organism; G93.1 Anoxic brain damage, not elsewhere classified; J96.11 Chronic respiratory failure with hypoxia; N10 Acute pyelonephritis; Z99.11 Dependence on respirator [ventilator] status; R40.3 Persistent vegetative state; N39.0 Urinary tract infection, site not specified; A04.7 Enterocolitis due to Clostridium difficile; I47.1 Supraventricular tachycardia; C78.1 Secondary malignant neoplasm of mediastinum; C85.90 Non-Hodgkin lymphoma, unspecified, unspecified site; E89.0 Postprocedural hypothyroidism; I12.9 Hypertensive chronic kidney disease with stage 1 through stage 4 chronic kidney disease, or unspecified chronic kidney disease; N18.9 Chronic kidney disease, unspecified; D50.9 Iron deficiency anemia, unspecified; E83.42 Hypomagnesemia; I25.10 Atherosclerotic heart disease of native coronary artery without angina pectoris; Z93.0 Tracheostomy status; Z93.1 Gastrostomy status; Z66 Do not resuscitate; Z86.14 Personal history of Methicillin resistant Staphylococcus aureus infection; B96.4 Proteus (mirabilis) (morganii) as the cause of diseases classified elsewhere; B95.1 Streptococcus, group B, as the cause of diseases classified elsewhere; Z85.850 Personal history of malignant neoplasm of thyroid; L98.8 Other specified disorders of the skin and subcutaneous tissue; L89.210 Pressure ulcer of right hip, unstageable; R13.10 Dysphagia, unspecified; S81.802A Unspecified open wound, left lower leg, initial encounter; S81.801A Unspecified open wound, right lower leg, initial encounter; X58.XXXA Exposure to other specified factors, initial encounter; Y93.9 Activity, unspecified; Y99.9 Unspecified external cause status; Z86.19 Personal history of other infectious and parasitic diseases; Z86.74 Personal history of sudden cardiac arrest; Y92.129 Unspecified place in nursing home as the place of occurrence of the external cause
CPT/HCPCS: 31720; 36415; 71010-TC; 80048-TC; 80061-TC; 80202-TC; 81000-TC; 82247-TC; 82248-TC; 82728-TC; 83540-TC; 83605-TC; 83615-TC; 83735-TC; 84100-TC; 84155; 84165; 84439-TC; 84443-TC; 85025-TC; 87081-TC; 87086-TC; 87186-TC; 94640-TC; 94761-TC; A4216; A4606; A6402; A6403; J1650; J2185; J2916; J3370; J3475; J3490; J7030; J7060; J8597

== ENCOUNTER 2017-09-17 | Inpatient (IN) | payer MEDICARE, MEDICAID ==
[~2017-09-17] VITALS: Ht 172.7 cm; Wt 71.3 kg
[~2017-09-17] MED LIST changes: +ACET650S26 GT; +ACID1TAB12 GT; -ACID1TAB14 GT; +BACL10TA GT; +CLOT15CR35 TP; -DEXT1DRO6 EACHEYE; +GLYCOPYRROLATE 1 MG TABLET ONE; +HEPA10009 SQ; +HYDR1SOL TP; -Heparin Sodium,Porcine SQ; +LEVO125T8 GT; -LEVO150T8 GT; +MAG30ORA GT; +MAGN400O6 GT; -METO5SOL GT; -METR500T PO; -MUPI22OI7; +NYST60PO TP; +POLY15DR40 EACHEYE; +POTA10CA43 GT; -POTA20LI4 GT; -SENN8.6C5 GT; -[UNRECOGNIZED DRUG - CODE] GT
--- NOTE | 2017-09-18 11:36 | NUR ---
Please see resident's previous account [id number] for Social Service assessments, evaluations and notes.
[2017-09-18] MEDS ORDERED: HYDROGEN PEROXIDE 480 ML BOTTLE TP PRN (12:08)
[2017-09-18] MEDS ORDERED: HEPARIN SODIUM, PORCINE 5000 UNITS/1 ML VIAL SQ SCH (12:08)
[2017-09-18] MEDS ORDERED: MAG HYDROX/AL HYDROX/SIMETH 30 ML UDC GT PRN (12:08)
[2017-09-18] MEDS ORDERED: TUBERCULIN,PURIF.PROT.DERIV. 5 TU/0.1 ML VIAL ID SCH (12:08)
[2017-09-18] MEDS ORDERED: HYDROCODONE/APAP 5/325MG 1 EACH TABLET GT PRN (12:08)
[2017-09-18] MEDS: POLYVINYL ALCOHOL 15 ML BOTTLE EACHEYE SCH ×3 (13:39→21:38)
[2017-09-18] MEDS: BACLOFEN (10 MG) 10 MG TABLET GT SCH ×2 (13:40→21:38)
[2017-09-18] MEDS: GLYCOPYRROLATE 1 MG TABLET GT SCH ×2 (16:47→23:30)
[2017-09-18 19:19] VITALS: BP 107/71
[2017-09-18] MEDS: ALBUTEROL FS 2.5 MG/3 ML VIAL.NEB NEB SCH (19:30)
[2017-09-18] MEDS: IPRATROPIUM NEB FS 0.5 MG/2.5 ML AMPUL.NEB NEB SCH (19:30)
--- NOTE | 2017-09-18 19:30 | NUR ---
Please see resident's original account [id number] for all assessments and nurses notes. Originally admitted on 06/05/14.
[2017-09-18] MEDS: FINASTERIDE (5 MG) 5 MG TABLET GT SCH (20:00)
[2017-09-18] MEDS: HYDROGEN PEROXIDE 480 ML BOTTLE TP SCH (21:38)
[2017-09-18] MEDS: DOCUSATE SODIUM LIQ 100 MG/10 ML UDC GT SCH (21:38)
[2017-09-18] MEDS: MULTIVIT, IRON, MIN NO. 8, FA 1 TAB GT SCH (21:38)
[2017-09-18] MEDS: ASCORBIC ACID 500 MG TABLET GT SCH (21:38)
[2017-09-18] MEDS: ZINC OXIDE 30 GM TUBE TP SCH ×2 (21:38)
[2017-09-18] MEDS: SENNOSIDES 8.6 MG TABLET PO SCH (21:38)
[2017-09-18] MEDS: HEPARIN SODIUM, PORCINE 5000 UNITS/1 ML VIAL SQ SCH (21:39)
[2017-09-19] MEDS: ALBUTEROL FS 2.5 MG/3 ML VIAL.NEB NEB SCH ×4 (01:42→19:26)
[2017-09-19] MEDS: IPRATROPIUM NEB FS 0.5 MG/2.5 ML AMPUL.NEB NEB SCH ×4 (01:42→19:26)
[2017-09-19] MEDS: GLYCOPYRROLATE 1 MG TABLET GT SCH ×3 (05:22→17:40)
[2017-09-19] MEDS: LEVOTHYROXINE SODIUM 125 MCG TABLET GT SCH (05:22)
[2017-09-19] MEDS: BACLOFEN (10 MG) 10 MG TABLET GT SCH ×3 (05:22→20:19)
[2017-09-19 07:33] VITALS: BP 103/59
[2017-09-19] MEDS: POLYVINYL ALCOHOL 15 ML BOTTLE EACHEYE SCH ×4 (08:41→20:18)
[2017-09-19] MEDS: ACIDOPHILUS/BULGARICUS 1 EACH TAB.CHEW GT SCH (08:42)
[2017-09-19] MEDS: AMIODARONE HCL 200 MG TABLET GT SCH (08:42)
[2017-09-19] MEDS: POLYETHYLENE GLYCOL 3350 17 GM POWD.PACK GT SCH (08:45)
[2017-09-19] MEDS: OMEPRAZOLE 10 MG CAPSULE.DR GT SCH (08:45)
[2017-09-19] MEDS: POTASSIUM CHLORIDE 20 MEQ/15 ML ML GT SCH (08:45)
[2017-09-19] MEDS: HEPARIN SODIUM, PORCINE 5000 UNITS/1 ML VIAL SQ SCH ×2 (08:46→20:19)
[2017-09-19] MEDS: ZINC OXIDE 30 GM TUBE TP SCH ×4 (08:46→20:19)
[2017-09-19] MEDS: HYDROGEN PEROXIDE 480 ML BOTTLE TP SCH ×2 (08:46→20:19)
--- NOTE | 2017-09-19 10:53 | NUR ---
Wound telecommunications consultant (Ms Torres) came today and re evaluate patients buttocks excoriation, per wound telecommunications consultant buttocks excoriation with improvement and continue same treatment ordered 09/10 for 21 days, will end on 10/01/2017. with clarification order of wound consult of buttocks excoriation. Noted and carried out.
--- NOTE | 2017-09-19 11:00 | NUR ---
WOUND CARE CONSULT PATIENT SEEN AND ASSESSMENT DONE OF BILATERAL BUTTOCKS REGIONS. THE EXCORIATIONS ARE MUCH IMPROVED AT THIS TIME WITH THE CURRENT TREATMENT USING ZINC OXIDE BARRIER CREAM. RECOMMEND CONTINUE CURRENT TREATMENT PLAN PER MD ORDERS. THESE ARE BILATERAL BUTTOCKS NOT SACROCOCCYX. DISCUSSED WITH HAZARDOUS WASTE TECHNICIAN AND NURSING STAFF AT THE BEDSIDE. CONTINUE ALL SKIN MANAGEMENT AND PRESSURE ULCER PREVENTION MEASURES PER CURRENT PLAN OF CARE. CURRENT MD ORDERS IN PLACE NOTED.
--- NOTE | 2017-09-19 14:23 | NUR ---
Resident's met with CNO Dirk, subacute manager utility Shanita, IGOR Solano, and regional education coordinator Kirstie for an IDT meeting. Resident's was able to share her concerns with the team. reported that she likes to have the tv on with sound for the resident to provide stimulation for him but states that the roommates grandson turns off the tv volume while she is not there. She would like for the tv to remain on during this time. was told of new subacute procedures by manager utility Shanita and this includes stepping out while care is being provided. Printing Grey Cloth Tender explained what this entails (incontinence care, suctioning, bathing, medication giving, and suctioning). 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 She agreed to allow the MASSAGE THERAPY INSTRUCTOR's to do the care and will come back into the room to check that everything has been done to her specifications. stated that she likes the resident to be clean, smell nice, and have clean bedsheets. will continue to provide hygiene care to her after the MASSAGE THERAPY INSTRUCTOR's have completed the care. acknowledged that the resident likes to be called Orestes and states that she has no other problems or concerns.
--- NOTE | 2017-09-19 14:35 | NUR ---
Residents Fanny signed admission intake paperwork (patient rights acknowledgement, documentation of preferred intensity of care, conditions of admission, an important message from medicare about your rights, [place] Standard Admission Agreement, and voluntary prior express consent form). Per resident's , resident to remain DNR code status.
--- NOTE | 2017-09-19 14:49 | NUR ---
Resident's was informed that IDT meeting is this Thursday September 21, 2017 from 12:30pm-1:30PM. She stated that she will not be attending as she is already updated regarding the resident's condition.
[2017-09-19 19:31] VITALS: BP 110/52
[2017-09-19] MEDS: FINASTERIDE (5 MG) 5 MG TABLET GT SCH (20:18)
[2017-09-19] MEDS: DOCUSATE SODIUM LIQ 100 MG/10 ML UDC GT SCH (20:18)
[2017-09-19] MEDS: ASCORBIC ACID 500 MG TABLET GT SCH (20:19)
[2017-09-19] MEDS: MULTIVIT, IRON, MIN NO. 8, FA 1 TAB GT SCH (20:19)
[2017-09-19] MEDS: SENNOSIDES 8.6 MG TABLET PO SCH (21:11)
[2017-09-20] MEDS: GLYCOPYRROLATE 1 MG TABLET GT SCH ×5 (00:26→23:40)
[2017-09-20] MEDS: IPRATROPIUM NEB FS 0.5 MG/2.5 ML AMPUL.NEB NEB SCH ×4 (00:55→19:53)
[2017-09-20] MEDS: ALBUTEROL FS 2.5 MG/3 ML VIAL.NEB NEB SCH ×4 (00:55→19:53)
[2017-09-20] MEDS: LEVOTHYROXINE SODIUM 125 MCG TABLET GT SCH (05:19)
[2017-09-20] MEDS: BACLOFEN (10 MG) 10 MG TABLET GT SCH ×3 (05:19→21:21)
[2017-09-20 07:38] VITALS: BP 115/79
[2017-09-20] MEDS: AMIODARONE HCL 200 MG TABLET GT SCH (08:39)
[2017-09-20] MEDS: POTASSIUM CHLORIDE 20 MEQ/15 ML ML GT SCH (08:39)
[2017-09-20] MEDS: ACIDOPHILUS/BULGARICUS 1 EACH TAB.CHEW GT SCH (08:39)
[2017-09-20] MEDS: OMEPRAZOLE 10 MG CAPSULE.DR GT SCH (08:39)
[2017-09-20] MEDS: POLYVINYL ALCOHOL 15 ML BOTTLE EACHEYE SCH ×4 (08:39→21:21)
[2017-09-20] MEDS: POLYETHYLENE GLYCOL 3350 17 GM POWD.PACK GT SCH (08:39)
[2017-09-20] MEDS: ZINC OXIDE 30 GM TUBE TP SCH ×3 (08:40→21:21)
[2017-09-20] MEDS: HYDROGEN PEROXIDE 480 ML BOTTLE TP SCH ×2 (08:41→21:21)
--- NOTE | 2017-09-20 09:00 | NUR ---
Pt just had a shower and WALE Garcia called the licensed nurse and charge nurse to see pt. Open wound measuring 0.5 x 3 cm noted on right buttock. Received order to apply triple antibiotic ointment and Mepilex q shift for 14 days.
[2017-09-20] MEDS: HEPARIN SODIUM, PORCINE 5000 UNITS/1 ML VIAL SQ SCH ×2 (09:09→21:21)
--- NOTE | 2017-09-20 18:00 | NUR ---
Pt's came to visit and notified her about the open skin on the right buttock. was upset about it.
[2017-09-20] MEDS: FINASTERIDE (5 MG) 5 MG TABLET GT SCH (20:00)
[2017-09-20 20:56] VITALS: BP 121/66
[2017-09-20] MEDS: NEOMY SULF/BACITRAC ZN/POLY 15 GM TUBE TP SCH (21:21)
[2017-09-20] MEDS: ASCORBIC ACID 500 MG TABLET GT SCH (21:21)
[2017-09-20] MEDS: DOCUSATE SODIUM LIQ 100 MG/10 ML UDC GT SCH (21:21)
[2017-09-20] MEDS: MULTIVIT, IRON, MIN NO. 8, FA 1 TAB GT SCH (21:21)
[2017-09-20] MEDS: SENNOSIDES 8.6 MG TABLET PO SCH (21:21)
[2017-09-21] MEDS: ALBUTEROL FS 2.5 MG/3 ML VIAL.NEB NEB SCH ×3 (00:48→20:07)
[2017-09-21] MEDS: IPRATROPIUM NEB FS 0.5 MG/2.5 ML AMPUL.NEB NEB SCH ×3 (00:48→20:07)
[2017-09-21] MEDS: LEVOTHYROXINE SODIUM 125 MCG TABLET GT SCH (05:34)
[2017-09-21] MEDS: BACLOFEN (10 MG) 10 MG TABLET GT SCH ×3 (05:34→21:25)
[2017-09-21] MEDS: GLYCOPYRROLATE 1 MG TABLET GT SCH ×3 (05:34→17:37)
[2017-09-21] MEDS: RENAL NOVASOURCE 1,000 ML BOTTLE GT PRN (05:34)
[2017-09-21 07:52] VITALS: BP 123/79
[2017-09-21] MEDS: POLYETHYLENE GLYCOL 3350 17 GM POWD.PACK GT SCH (08:49)
[2017-09-21] MEDS: ACIDOPHILUS/BULGARICUS 1 EACH TAB.CHEW GT SCH (08:49)
[2017-09-21] MEDS: OMEPRAZOLE 10 MG CAPSULE.DR GT SCH (08:49)
[2017-09-21] MEDS: POLYVINYL ALCOHOL 15 ML BOTTLE EACHEYE SCH ×4 (08:49→21:25)
[2017-09-21] MEDS: POTASSIUM CHLORIDE 20 MEQ/15 ML ML GT SCH (08:49)
[2017-09-21] MEDS: AMIODARONE HCL 200 MG TABLET GT SCH (08:49)
[2017-09-21] MEDS: HEPARIN SODIUM, PORCINE 5000 UNITS/1 ML VIAL SQ SCH ×2 (08:50→21:25)
[2017-09-21] MEDS: ZINC OXIDE 30 GM TUBE TP SCH ×2 (08:50→21:25)
[2017-09-21] MEDS: NEOMY SULF/BACITRAC ZN/POLY 15 GM TUBE TP SCH ×2 (08:50→21:25)
[2017-09-21] MEDS: HYDROGEN PEROXIDE 480 ML BOTTLE TP SCH ×2 (08:50→21:25)
--- NOTE | 2017-09-21 13:38 | NUR ---
INTERDISCIPLINARY TEAM CONFERENCE (IDT) was held today. unable to attend. Dr. David and the interdisciplinary team reviewed the current plan of care in detail. New orders were reviewed. Resident has an open wound on buttocks for which there is current treatment for. Resident has been doing okay respiratory nicole. No new orders were given.
--- NOTE | 2017-09-21 18:00 | NUR ---
Seen and examined by Vivian Posada NP for Dr. David no new order given. also notified that F/C was leaking and it was changed but urine with slight bleeding due to trauma. appreciated the call. Endorsed to monitor.
[2017-09-21 20:00] VITALS: BP 136/79
[2017-09-21] MEDS: FINASTERIDE (5 MG) 5 MG TABLET GT SCH (20:00)
[2017-09-21] MEDS: ASCORBIC ACID 500 MG TABLET GT SCH (21:25)
[2017-09-21] MEDS: MULTIVIT, IRON, MIN NO. 8, FA 1 TAB GT SCH (21:25)
[2017-09-21] MEDS: DOCUSATE SODIUM LIQ 100 MG/10 ML UDC GT SCH (21:25)
[2017-09-21] MEDS: SENNOSIDES 8.6 MG TABLET PO SCH (21:25)
[2017-09-22] MEDS: GLYCOPYRROLATE 1 MG TABLET GT SCH ×4 (00:28→17:48)
[2017-09-22] MEDS: ALBUTEROL FS 2.5 MG/3 ML VIAL.NEB NEB SCH ×4 (02:02→20:17)
[2017-09-22] MEDS: IPRATROPIUM NEB FS 0.5 MG/2.5 ML AMPUL.NEB NEB SCH ×4 (02:02→20:17)
[2017-09-22] MEDS: BACLOFEN (10 MG) 10 MG TABLET GT SCH ×3 (05:13→21:38)
[2017-09-22] MEDS: RENAL NOVASOURCE 1,000 ML BOTTLE GT PRN (05:13)
[2017-09-22] MEDS: LEVOTHYROXINE SODIUM 125 MCG TABLET GT SCH (05:13)
--- NOTE | 2017-09-22 07:06 | NUR ---
Pt urine still with blood,vcitoria catheter was changed yesterday.Will continue to monitor.
[2017-09-22 08:04] VITALS: BP 130/79
[2017-09-22] MEDS: ACIDOPHILUS/BULGARICUS 1 EACH TAB.CHEW GT SCH (08:47)
[2017-09-22] MEDS: POTASSIUM CHLORIDE 20 MEQ/15 ML ML GT SCH (08:47)
[2017-09-22] MEDS: POLYETHYLENE GLYCOL 3350 17 GM POWD.PACK GT SCH (08:47)
[2017-09-22] MEDS: OMEPRAZOLE 10 MG CAPSULE.DR GT SCH (08:47)
[2017-09-22] MEDS: POLYVINYL ALCOHOL 15 ML BOTTLE EACHEYE SCH ×4 (08:47→21:38)
[2017-09-22] MEDS: ZINC OXIDE 30 GM TUBE TP SCH ×2 (09:00→21:41)
[2017-09-22] MEDS: AMIODARONE HCL 200 MG TABLET GT SCH (09:00)
[2017-09-22] MEDS: NEOMY SULF/BACITRAC ZN/POLY 15 GM TUBE TP SCH ×2 (09:00→21:41)
[2017-09-22] MEDS: HYDROGEN PEROXIDE 480 ML BOTTLE TP SCH ×2 (09:00→21:41)
[2017-09-22] MEDS: HEPARIN SODIUM, PORCINE 5000 UNITS/1 ML VIAL SQ SCH ×2 (09:10→21:41)
[2017-09-22 19:45] VITALS: BP 101/61
[2017-09-22] MEDS: FINASTERIDE (5 MG) 5 MG TABLET GT SCH (20:00)
[2017-09-22] MEDS: MULTIVIT, IRON, MIN NO. 8, FA 1 TAB GT SCH (21:38)
[2017-09-22] MEDS: DOCUSATE SODIUM LIQ 100 MG/10 ML UDC GT SCH (21:38)
[2017-09-22] MEDS: ASCORBIC ACID 500 MG TABLET GT SCH (21:39)
[2017-09-22] MEDS: SENNOSIDES 8.6 MG TABLET PO SCH (21:41)
[2017-09-22] MEDS: ACETAMINOPHEN 650 MG/20 ML UDC- FOR SA PATIENTS ONLY GT PRN (21:43)
[2017-09-23] MEDS: GLYCOPYRROLATE 1 MG TABLET GT SCH ×5 (00:41→23:40)
[2017-09-23] MEDS: IPRATROPIUM NEB FS 0.5 MG/2.5 ML AMPUL.NEB NEB SCH ×4 (01:31→19:25)
[2017-09-23] MEDS: ALBUTEROL FS 2.5 MG/3 ML VIAL.NEB NEB SCH ×4 (01:32→19:25)
[2017-09-23] MEDS: RENAL NOVASOURCE 1,000 ML BOTTLE GT PRN (05:11)
[2017-09-23] MEDS: LEVOTHYROXINE SODIUM 125 MCG TABLET GT SCH (05:11)
[2017-09-23] MEDS: BACLOFEN (10 MG) 10 MG TABLET GT SCH ×3 (05:11→21:22)
[2017-09-23] MEDS: ACIDOPHILUS/BULGARICUS 1 EACH TAB.CHEW GT SCH (09:00)
[2017-09-23] MEDS: POLYVINYL ALCOHOL 15 ML BOTTLE EACHEYE SCH ×4 (09:00→21:22)
[2017-09-23] MEDS: POTASSIUM CHLORIDE 20 MEQ/15 ML ML GT SCH (09:00)
[2017-09-23] MEDS: POLYETHYLENE GLYCOL 3350 17 GM POWD.PACK GT SCH (09:00)
[2017-09-23] MEDS: OMEPRAZOLE 10 MG CAPSULE.DR GT SCH (09:00)
[2017-09-23] MEDS: HYDROGEN PEROXIDE 480 ML BOTTLE TP SCH ×2 (09:00→21:22)
[2017-09-23] MEDS: NEOMY SULF/BACITRAC ZN/POLY 15 GM TUBE TP SCH ×2 (09:00→21:22)
[2017-09-23] MEDS: HEPARIN SODIUM, PORCINE 5000 UNITS/1 ML VIAL SQ SCH ×2 (09:00→21:22)
[2017-09-23] MEDS: AMIODARONE HCL 200 MG TABLET GT SCH (09:00)
[2017-09-23] MEDS: ZINC OXIDE 30 GM TUBE TP SCH ×2 (09:00→21:22)
[2017-09-23 09:49] VITALS: BP 97/52
[2017-09-23] MEDS: FINASTERIDE (5 MG) 5 MG TABLET GT SCH (20:00)
[2017-09-23] MEDS: MULTIVIT, IRON, MIN NO. 8, FA 1 TAB GT SCH (21:22)
[2017-09-23] MEDS: ASCORBIC ACID 500 MG TABLET GT SCH (21:22)
[2017-09-23] MEDS: DOCUSATE SODIUM LIQ 100 MG/10 ML UDC GT SCH (21:22)
[2017-09-23] MEDS: SENNOSIDES 8.6 MG TABLET PO SCH (21:22)
[2017-09-24] MEDS: ALBUTEROL FS 2.5 MG/3 ML VIAL.NEB NEB SCH ×4 (02:24→19:30)
[2017-09-24] MEDS: IPRATROPIUM NEB FS 0.5 MG/2.5 ML AMPUL.NEB NEB SCH ×4 (02:24→19:30)
[2017-09-24 04:48] VITALS: BP 107/57
[2017-09-24] MEDS: RENAL NOVASOURCE 1,000 ML BOTTLE GT PRN (05:30)
[2017-09-24] MEDS: BACLOFEN (10 MG) 10 MG TABLET GT SCH ×3 (05:30→20:39)
[2017-09-24] MEDS: GLYCOPYRROLATE 1 MG TABLET GT SCH ×4 (05:30→23:18)
[2017-09-24] MEDS: LEVOTHYROXINE SODIUM 125 MCG TABLET GT SCH (05:30)
[2017-09-24] MEDS: POLYVINYL ALCOHOL 15 ML BOTTLE EACHEYE SCH ×4 (08:55→20:39)
[2017-09-24] MEDS: ZINC OXIDE 30 GM TUBE TP SCH ×2 (08:56→20:40)
[2017-09-24] MEDS: AMIODARONE HCL 200 MG TABLET GT SCH (08:56)
[2017-09-24] MEDS: NEOMY SULF/BACITRAC ZN/POLY 15 GM TUBE TP SCH ×2 (08:56→20:40)
[2017-09-24] MEDS: ACIDOPHILUS/BULGARICUS 1 EACH TAB.CHEW GT SCH (08:56)
[2017-09-24] MEDS: POTASSIUM CHLORIDE 20 MEQ/15 ML ML GT SCH (08:56)
[2017-09-24] MEDS: OMEPRAZOLE 10 MG CAPSULE.DR GT SCH (08:56)
[2017-09-24] MEDS: POLYETHYLENE GLYCOL 3350 17 GM POWD.PACK GT SCH (08:56)
[2017-09-24] MEDS: HYDROGEN PEROXIDE 480 ML BOTTLE TP SCH ×2 (08:56→20:40)
[2017-09-24] MEDS: HEPARIN SODIUM, PORCINE 5000 UNITS/1 ML VIAL SQ SCH ×2 (08:56→20:40)
[2017-09-24 15:40] VITALS: BP 115/68
[2017-09-24] MEDS: MULTIVIT, IRON, MIN NO. 8, FA 1 TAB GT SCH (20:39)
[2017-09-24] MEDS: ASCORBIC ACID 500 MG TABLET GT SCH (20:39)
[2017-09-24] MEDS: DOCUSATE SODIUM LIQ 100 MG/10 ML UDC GT SCH (20:39)
[2017-09-24] MEDS: FINASTERIDE (5 MG) 5 MG TABLET GT SCH (20:39)
[2017-09-24] MEDS: ACETAMINOPHEN 650 MG/20 ML UDC- FOR SA PATIENTS ONLY GT PRN (20:49)
--- NOTE | 2017-09-24 20:53 | NUR ---
Resident with fever of 101.0. Tyl 650 mg/gt prn given as ordered plus cooling measures with ice pack. Charge Nurse aware. Will continue to monitor.
[2017-09-24] MEDS: SENNOSIDES 8.6 MG TABLET PO SCH (21:20)
--- NOTE | 2017-09-24 22:05 | NUR ---
Temperature rechecked @ 99.2. Continue with cooling measures and will continue to monitor.
--- NOTE | 2017-09-24 23:40 | NUR ---
RN NOTES Noted pt with temp 101, Tylenol given as ordered and cooling measures rendered. Notified physician on-call, Dr. James with new order for CBC in am, noted and carried out. at bedside and aware of change and new order. Will continue to monitor.
[2017-09-25] MEDS: ALBUTEROL FS 2.5 MG/3 ML VIAL.NEB NEB SCH ×4 (01:23→19:21)
[2017-09-25] MEDS: IPRATROPIUM NEB FS 0.5 MG/2.5 ML AMPUL.NEB NEB SCH ×4 (01:23→19:21)
--- NOTE | 2017-09-25 05:00 | NUR ---
RN NOTES Afebrile. Noted with blood tinged urine in drainage bag. Flushed with NS with clear urine return. Will endorse to following shift. called and made aware. Will continue to monitor.
[2017-09-25] MEDS: BACLOFEN (10 MG) 10 MG TABLET GT SCH ×3 (05:15→20:29)
[2017-09-25] MEDS: LEVOTHYROXINE SODIUM 125 MCG TABLET GT SCH (05:15)
[2017-09-25] MEDS: GLYCOPYRROLATE 1 MG TABLET GT SCH ×4 (05:15→23:08)
[2017-09-25 07:59] VITALS: BP 96/53
[2017-09-25 08:55] LABS: BASOPHILS % (AUTO) 0.2 % (0.0-2.0); EOSINOPHILS % (AUTO) 2.5 % (0.0-6.0); HEMATOCRIT 27 % (39-51); HEMOGLOBIN 8.9 g/dL (13.5-17.5); LYMPHOCYTES # (AUTO) 1.5 /CMM (0.8-4.8); LYMPHOCYTES % (AUTO) 7.5 % (20.0-44.0); MEAN CORPUSCULAR HEMOGLOBIN 24 PG (26.0-33.0); MEAN CORPUSCULAR HGB CONC 33 g/dl (31.0-36.0); MEAN CORPUSCULAR VOLUME 73 fL (80-96); MONOCYTES # (AUTO) 1.7 /CMM (0.1-1.30); MONOCYTES % (AUTO) 8.3 % (2.0-12.0); NEUTROPHILS # (AUTO) 16.6 /CMM (1.8-8.9); NEUTROPHILS % (AUTO) 81.5 % (43.0-81.0); PLATELET COUNT (AUTO) 333 /CMM (150-450); RDW COEFFICIENT OF VARIATION 19.3 (11.5-15.0); RED BLOOD CELL COUNT(AUTO) 3.73 MIL/uL (4.5-6.0); WHITE BLOOD COUNT (AUTO) 20.3 K/uL (4.3-11.0)
[2017-09-25] MEDS: OMEPRAZOLE 10 MG CAPSULE.DR GT SCH (09:50)
[2017-09-25] MEDS: AMIODARONE HCL 200 MG TABLET GT SCH (09:50)
[2017-09-25] MEDS: POLYVINYL ALCOHOL 15 ML BOTTLE EACHEYE SCH ×4 (09:50→20:28)
[2017-09-25] MEDS: ACIDOPHILUS/BULGARICUS 1 EACH TAB.CHEW GT SCH (09:50)
[2017-09-25] MEDS: POLYETHYLENE GLYCOL 3350 17 GM POWD.PACK GT SCH (09:50)
[2017-09-25] MEDS: POTASSIUM CHLORIDE 20 MEQ/15 ML ML GT SCH (09:50)
[2017-09-25] MEDS: HEPARIN SODIUM, PORCINE 5000 UNITS/1 ML VIAL SQ SCH ×2 (09:51→20:29)
[2017-09-25] MEDS: HYDROGEN PEROXIDE 480 ML BOTTLE TP SCH ×2 (09:54→20:29)
[2017-09-25] MEDS: NEOMY SULF/BACITRAC ZN/POLY 15 GM TUBE TP SCH ×3 (09:55→20:29)
[2017-09-25] MEDS: ZINC OXIDE 30 GM TUBE TP SCH ×2 (09:55→20:29)
--- NOTE | 2017-09-25 10:00 | NUR ---
Seen by Dr. David this morning. Notified him that pt had a temp of 101 F last night and CBC was done. Relayed CBC result WBC 20.[address] David. Received order to do UA C&S and Merrem IV pharmacy to dose for 7 days. Notified pt's .
[2017-09-25 10:42] LABS: BAND % (MANUAL) 3 % (0.0-5.0); EOSINOPHILS % (MANUAL) 3 % (0-4); LYMPHOCYTES % (MANUAL) 8 % (16-48); MONOCYTES % (MANUAL) 10 % (0-11.0); NEUTROPHILS % (MANUAL) 76 (42-76)
--- NOTE | 2017-09-25 12:13 | NUR ---
Received order to give Merrem 500 mg IV q 8 hours for 7 days for fever and elevated WBC.
[2017-09-25] MEDS: MEROPENEM 500 MG in IV NS 0.9% 100 ML IV SCH ×2 (13:00→21:05)
[2017-09-25] MEDS: RENAL NOVASOURCE 1,000 ML BOTTLE GT PRN (13:43)
[2017-09-25 20:09] VITALS: BP 101/62
[2017-09-25] MEDS: FINASTERIDE (5 MG) 5 MG TABLET GT SCH (20:28)
[2017-09-25] MEDS: DOCUSATE SODIUM LIQ 100 MG/10 ML UDC GT SCH (20:28)
[2017-09-25] MEDS: MULTIVIT, IRON, MIN NO. 8, FA 1 TAB GT SCH (20:29)
[2017-09-25] MEDS: ASCORBIC ACID 500 MG TABLET GT SCH (20:29)
[2017-09-25] MEDS: SENNOSIDES 8.6 MG TABLET PO SCH (21:32)
[2017-09-26 01:13] LABS: APPEARANCE,URINE CLEAR (CLEAR); BILIRUBIN,URINE NEGATIVE (NEGATIVE); BLOOD, URINE 2+ Ery/uL (NEGATIVE); COLOR,URINE YELLOW (YELLOW); KETONES,URINE NEGATIVE (NEGATIVE); LEUKOCYTE ESTERASE ,URINE 3+ (NEGATIVE); NITRITE, URINE NEGATIVE (NEGATIVE); PH,URINE 6.5 (5.0-8.0); PROTEIN,URINE NEGATIVE (NEGATIVE); UGLUCOSE NEGATIVE (NEGATIVE); UROBILINOGEN,URINE 0.2 EU/dL (0.2)
[2017-09-26] MEDS: IPRATROPIUM NEB FS 0.5 MG/2.5 ML AMPUL.NEB NEB SCH ×4 (01:21→20:02)
[2017-09-26] MEDS: ALBUTEROL FS 2.5 MG/3 ML VIAL.NEB NEB SCH ×4 (01:21→20:02)
[2017-09-26 01:24] LABS: BACTERIA,URINE Moderate /HPF (None Seen); SQUAMOUS EPITHELIAL CELL,UR Rare /HPF (None Seen); WBC,URINE 21-50 /HPF (0-3)
[2017-09-26] MEDS: LEVOTHYROXINE SODIUM 125 MCG TABLET GT SCH (05:17)
[2017-09-26] MEDS: BACLOFEN (10 MG) 10 MG TABLET GT SCH ×3 (05:17→20:57)
[2017-09-26] MEDS: GLYCOPYRROLATE 1 MG TABLET GT SCH ×4 (05:17→23:27)
[2017-09-26] MEDS: MEROPENEM 500 MG in IV NS 0.9% 100 ML IV SCH ×3 (05:58→21:06)
[2017-09-26 07:46] VITALS: BP 112/68
[2017-09-26] MEDS: HEPARIN SODIUM, PORCINE 5000 UNITS/1 ML VIAL SQ SCH ×2 (08:07→20:58)
[2017-09-26] MEDS: AMIODARONE HCL 200 MG TABLET GT SCH (08:07)
[2017-09-26] MEDS: OMEPRAZOLE 10 MG CAPSULE.DR GT SCH (08:07)
[2017-09-26] MEDS: HYDROGEN PEROXIDE 480 ML BOTTLE TP SCH ×2 (08:07→20:58)
[2017-09-26] MEDS: POLYETHYLENE GLYCOL 3350 17 GM POWD.PACK GT SCH (08:07)
[2017-09-26] MEDS: NEOMY SULF/BACITRAC ZN/POLY 15 GM TUBE TP SCH ×4 (08:07→20:58)
[2017-09-26] MEDS: ACIDOPHILUS/BULGARICUS 1 EACH TAB.CHEW GT SCH (08:07)
[2017-09-26] MEDS: POTASSIUM CHLORIDE 20 MEQ/15 ML ML GT SCH (08:07)
[2017-09-26] MEDS: ZINC OXIDE 30 GM TUBE TP SCH ×2 (08:08→20:58)
[2017-09-26] MEDS: POLYVINYL ALCOHOL 15 ML BOTTLE EACHEYE SCH ×4 (09:00→20:57)
[2017-09-26] MEDS: RENAL NOVASOURCE 1,000 ML BOTTLE GT PRN (16:54)
[2017-09-26 20:43] VITALS: BP 112/73
[2017-09-26] MEDS: MULTIVIT, IRON, MIN NO. 8, FA 1 TAB GT SCH (20:57)
[2017-09-26] MEDS: FINASTERIDE (5 MG) 5 MG TABLET GT SCH (20:57)
[2017-09-26] MEDS: ASCORBIC ACID 500 MG TABLET GT SCH (20:57)
[2017-09-26] MEDS: DOCUSATE SODIUM LIQ 100 MG/10 ML UDC GT SCH (20:57)
[2017-09-26] MEDS: SENNOSIDES 8.6 MG TABLET PO SCH (21:00)
[2017-09-27] MEDS: IPRATROPIUM NEB FS 0.5 MG/2.5 ML AMPUL.NEB NEB SCH ×4 (01:30→20:20)
[2017-09-27] MEDS: ALBUTEROL FS 2.5 MG/3 ML VIAL.NEB NEB SCH ×4 (01:30→20:20)
[2017-09-27] MEDS: MEROPENEM 500 MG in IV NS 0.9% 100 ML IV SCH ×3 (05:06→20:53)
[2017-09-27] MEDS: BACLOFEN (10 MG) 10 MG TABLET GT SCH ×3 (05:30→20:49)
[2017-09-27] MEDS: LEVOTHYROXINE SODIUM 125 MCG TABLET GT SCH (05:30)
[2017-09-27] MEDS: GLYCOPYRROLATE 1 MG TABLET GT SCH ×4 (05:30→23:49)
[2017-09-27 07:48] VITALS: BP 110/64
[2017-09-27] MEDS: OMEPRAZOLE 10 MG CAPSULE.DR GT SCH (08:36)
[2017-09-27] MEDS: POLYETHYLENE GLYCOL 3350 17 GM POWD.PACK GT SCH (08:36)
[2017-09-27] MEDS: ACIDOPHILUS/BULGARICUS 1 EACH TAB.CHEW GT SCH (08:36)
[2017-09-27] MEDS: POLYVINYL ALCOHOL 15 ML BOTTLE EACHEYE SCH ×4 (08:36→20:49)
[2017-09-27] MEDS: POTASSIUM CHLORIDE 20 MEQ/15 ML ML GT SCH (08:36)
[2017-09-27] MEDS: NEOMY SULF/BACITRAC ZN/POLY 15 GM TUBE TP SCH ×4 (08:37→20:49)
[2017-09-27] MEDS: HEPARIN SODIUM, PORCINE 5000 UNITS/1 ML VIAL SQ SCH ×2 (08:37→20:49)
[2017-09-27] MEDS: HYDROGEN PEROXIDE 480 ML BOTTLE TP SCH ×2 (08:37→20:49)
[2017-09-27] MEDS: ZINC OXIDE 30 GM TUBE TP SCH ×2 (08:38→20:50)
[2017-09-27] MEDS: AMIODARONE HCL 200 MG TABLET GT SCH (08:54)
--- NOTE | 2017-09-27 14:03 | NUR ---
Seen by CARMELITA Posada. Received order to do a follow-up CBC on 10/02/17. Pt currently on Merrem. Addendum: 09/27/17 at 1404 by NOAH OGDEN RN CARMELITA Posada aware of preliminary urine culture result which showed no growth.
[2017-09-27] MEDS: RENAL NOVASOURCE 1,000 ML BOTTLE GT PRN (18:16)
--- NOTE | 2017-09-27 18:54 | NUR ---
Small redness noted on the left lower back. Skin intact. Received order to apply Vitamin A and D ointment q shift for 7 days.
[2017-09-27 20:00] VITALS: BP 110/63
[2017-09-27] MEDS: FINASTERIDE (5 MG) 5 MG TABLET GT SCH (20:49)
[2017-09-27] MEDS: MULTIVIT, IRON, MIN NO. 8, FA 1 TAB GT SCH (20:49)
[2017-09-27] MEDS: DOCUSATE SODIUM LIQ 100 MG/10 ML UDC GT SCH (20:49)
[2017-09-27] MEDS: ASCORBIC ACID 500 MG TABLET GT SCH (20:49)
[2017-09-27] MEDS: VITAMINS A AND D 56.7 GM TUBE TP SCH (20:50)
[2017-09-27] MEDS: SENNOSIDES 8.6 MG TABLET PO SCH (21:08)
[2017-09-28] MEDS: ALBUTEROL FS 2.5 MG/3 ML VIAL.NEB NEB SCH ×4 (00:43→19:30)
[2017-09-28] MEDS: IPRATROPIUM NEB FS 0.5 MG/2.5 ML AMPUL.NEB NEB SCH ×4 (00:43→19:30)
[2017-09-28] MEDS: MEROPENEM 500 MG in IV NS 0.9% 100 ML IV SCH ×3 (05:04→20:48)
[2017-09-28] MEDS: LEVOTHYROXINE SODIUM 125 MCG TABLET GT SCH (05:28)
[2017-09-28] MEDS: BACLOFEN (10 MG) 10 MG TABLET GT SCH ×3 (05:28→21:16)
[2017-09-28] MEDS: GLYCOPYRROLATE 1 MG TABLET GT SCH ×4 (05:28→23:41)
[2017-09-28 07:37] VITALS: BP 107/50
[2017-09-28] MEDS: POLYVINYL ALCOHOL 15 ML BOTTLE EACHEYE SCH ×4 (08:11→21:16)
[2017-09-28] MEDS: ACIDOPHILUS/BULGARICUS 1 EACH TAB.CHEW GT SCH (08:11)
[2017-09-28] MEDS: NEOMY SULF/BACITRAC ZN/POLY 15 GM TUBE TP SCH ×4 (08:12→21:17)
[2017-09-28] MEDS: HEPARIN SODIUM, PORCINE 5000 UNITS/1 ML VIAL SQ SCH ×2 (08:12→21:16)
[2017-09-28] MEDS: POLYETHYLENE GLYCOL 3350 17 GM POWD.PACK GT SCH (08:12)
[2017-09-28] MEDS: HYDROGEN PEROXIDE 480 ML BOTTLE TP SCH ×2 (08:12→21:16)
[2017-09-28] MEDS: OMEPRAZOLE 10 MG CAPSULE.DR GT SCH (08:12)
[2017-09-28] MEDS: VITAMINS A AND D 56.7 GM TUBE TP SCH ×2 (08:12→21:17)
[2017-09-28] MEDS: POTASSIUM CHLORIDE 20 MEQ/15 ML ML GT SCH (08:12)
[2017-09-28] MEDS: ZINC OXIDE 30 GM TUBE TP SCH ×2 (08:12→21:17)
[2017-09-28] MEDS: AMIODARONE HCL 200 MG TABLET GT SCH (09:00)
[2017-09-28] MEDS: FINASTERIDE (5 MG) 5 MG TABLET GT SCH (20:00)
[2017-09-28] MEDS: DOCUSATE SODIUM LIQ 100 MG/10 ML UDC GT SCH (21:16)
[2017-09-28] MEDS: ASCORBIC ACID 500 MG TABLET GT SCH (21:16)
[2017-09-28] MEDS: MULTIVIT, IRON, MIN NO. 8, FA 1 TAB GT SCH (21:16)
[2017-09-28] MEDS: SENNOSIDES 8.6 MG TABLET PO SCH (21:17)
[2017-09-28 23:31] VITALS: BP 114/58
[2017-09-29] MEDS: ALBUTEROL FS 2.5 MG/3 ML VIAL.NEB NEB SCH ×4 (01:46→19:47)
[2017-09-29] MEDS: IPRATROPIUM NEB FS 0.5 MG/2.5 ML AMPUL.NEB NEB SCH ×4 (01:46→19:47)
[2017-09-29] MEDS: MEROPENEM 500 MG in IV NS 0.9% 100 ML IV SCH ×3 (04:44→21:00)
[2017-09-29] MEDS: RENAL NOVASOURCE 1,000 ML BOTTLE GT PRN (05:29)
[2017-09-29] MEDS: GLYCOPYRROLATE 1 MG TABLET GT SCH ×4 (05:29→23:25)
[2017-09-29] MEDS: LEVOTHYROXINE SODIUM 125 MCG TABLET GT SCH (05:29)
[2017-09-29] MEDS: BACLOFEN (10 MG) 10 MG TABLET GT SCH ×3 (05:29→20:43)
[2017-09-29 07:38] VITALS: BP 103/64
[2017-09-29] MEDS: ZINC OXIDE 30 GM TUBE TP SCH ×2 (09:00→20:44)
[2017-09-29] MEDS: HYDROGEN PEROXIDE 480 ML BOTTLE TP SCH ×2 (09:00→20:44)
[2017-09-29] MEDS: VITAMINS A AND D 56.7 GM TUBE TP SCH ×2 (09:00→20:44)
[2017-09-29] MEDS: NEOMY SULF/BACITRAC ZN/POLY 15 GM TUBE TP SCH ×4 (09:00→20:44)
[2017-09-29] MEDS: POLYVINYL ALCOHOL 15 ML BOTTLE EACHEYE SCH ×4 (09:04→20:43)
[2017-09-29] MEDS: OMEPRAZOLE 10 MG CAPSULE.DR GT SCH (09:05)
[2017-09-29] MEDS: POTASSIUM CHLORIDE 20 MEQ/15 ML ML GT SCH (09:05)
[2017-09-29] MEDS: POLYETHYLENE GLYCOL 3350 17 GM POWD.PACK GT SCH (09:05)
[2017-09-29] MEDS: ACIDOPHILUS/BULGARICUS 1 EACH TAB.CHEW GT SCH (09:05)
[2017-09-29] MEDS: AMIODARONE HCL 200 MG TABLET GT SCH (09:05)
[2017-09-29] MEDS: HEPARIN SODIUM, PORCINE 5000 UNITS/1 ML VIAL SQ SCH ×2 (09:06→20:44)
[2017-09-29] MEDS: ASCORBIC ACID 500 MG TABLET GT SCH (20:43)
[2017-09-29] MEDS: MULTIVIT, IRON, MIN NO. 8, FA 1 TAB GT SCH (20:43)
[2017-09-29] MEDS: FINASTERIDE (5 MG) 5 MG TABLET GT SCH (20:43)
[2017-09-29] MEDS: DOCUSATE SODIUM LIQ 100 MG/10 ML UDC GT SCH (20:43)
[2017-09-29] MEDS: SENNOSIDES 8.6 MG TABLET PO SCH (21:34)
[2017-09-29 21:39] VITALS: BP 94/59
[2017-09-30] MEDS: ALBUTEROL FS 2.5 MG/3 ML VIAL.NEB NEB SCH ×4 (01:51→20:28)
[2017-09-30] MEDS: IPRATROPIUM NEB FS 0.5 MG/2.5 ML AMPUL.NEB NEB SCH ×4 (01:51→20:28)
[2017-09-30] MEDS: RENAL NOVASOURCE 1,000 ML BOTTLE GT PRN (04:25)
[2017-09-30] MEDS: BACLOFEN (10 MG) 10 MG TABLET GT SCH ×3 (04:25→20:55)
[2017-09-30] MEDS: GLYCOPYRROLATE 1 MG TABLET GT SCH ×3 (05:18→17:11)
[2017-09-30] MEDS: LEVOTHYROXINE SODIUM 125 MCG TABLET GT SCH (05:18)
[2017-09-30] MEDS: MEROPENEM 500 MG in IV NS 0.9% 100 ML IV SCH ×3 (05:51→20:57)
[2017-09-30 07:31] VITALS: BP 93/49
[2017-09-30] MEDS: AMIODARONE HCL 200 MG TABLET GT SCH (08:37)
[2017-09-30] MEDS: OMEPRAZOLE 10 MG CAPSULE.DR GT SCH (08:38)
[2017-09-30] MEDS: POLYETHYLENE GLYCOL 3350 17 GM POWD.PACK GT SCH (08:38)
[2017-09-30] MEDS: ACIDOPHILUS/BULGARICUS 1 EACH TAB.CHEW GT SCH (08:38)
[2017-09-30] MEDS: POTASSIUM CHLORIDE 20 MEQ/15 ML ML GT SCH (08:38)
[2017-09-30] MEDS: HEPARIN SODIUM, PORCINE 5000 UNITS/1 ML VIAL SQ SCH ×2 (08:39→20:58)
[2017-09-30] MEDS: ZINC OXIDE 30 GM TUBE TP SCH ×2 (09:00→20:58)
[2017-09-30] MEDS: POLYVINYL ALCOHOL 15 ML BOTTLE EACHEYE SCH ×4 (09:00→20:55)
[2017-09-30] MEDS: NEOMY SULF/BACITRAC ZN/POLY 15 GM TUBE TP SCH ×4 (09:00→20:58)
[2017-09-30] MEDS: VITAMINS A AND D 56.7 GM TUBE TP SCH ×2 (09:00→20:58)
[2017-09-30] MEDS: HYDROGEN PEROXIDE 480 ML BOTTLE TP SCH ×2 (09:00→20:58)
[2017-09-30 20:03] VITALS: BP 129/62
[2017-09-30] MEDS: MULTIVIT, IRON, MIN NO. 8, FA 1 TAB GT SCH (20:55)
[2017-09-30] MEDS: DOCUSATE SODIUM LIQ 100 MG/10 ML UDC GT SCH (20:55)
[2017-09-30] MEDS: FINASTERIDE (5 MG) 5 MG TABLET GT SCH (20:55)
[2017-09-30] MEDS: ASCORBIC ACID 500 MG TABLET GT SCH (20:56)
[2017-09-30] MEDS: SENNOSIDES 8.6 MG TABLET PO SCH (22:06)
[2017-10-01] MEDS: GLYCOPYRROLATE 1 MG TABLET GT SCH ×4 (00:23→18:07)
[2017-10-01] MEDS: ALBUTEROL FS 2.5 MG/3 ML VIAL.NEB NEB SCH ×4 (01:43→20:16)
[2017-10-01] MEDS: IPRATROPIUM NEB FS 0.5 MG/2.5 ML AMPUL.NEB NEB SCH ×4 (01:43→20:16)
[2017-10-01] MEDS: MEROPENEM 500 MG in IV NS 0.9% 100 ML IV SCH ×3 (05:00→21:00)
[2017-10-01] MEDS: BACLOFEN (10 MG) 10 MG TABLET GT SCH ×3 (05:42→20:43)
[2017-10-01] MEDS: LEVOTHYROXINE SODIUM 125 MCG TABLET GT SCH (05:43)
[2017-10-01 08:03] VITALS: BP 94/76
[2017-10-01] MEDS: POLYETHYLENE GLYCOL 3350 17 GM POWD.PACK GT SCH (08:30)
[2017-10-01] MEDS: AMIODARONE HCL 200 MG TABLET GT SCH (08:30)
[2017-10-01] MEDS: POLYVINYL ALCOHOL 15 ML BOTTLE EACHEYE SCH ×4 (08:30→20:42)
[2017-10-01] MEDS: ACIDOPHILUS/BULGARICUS 1 EACH TAB.CHEW GT SCH (08:30)
[2017-10-01] MEDS: POTASSIUM CHLORIDE 20 MEQ/15 ML ML GT SCH (08:30)
[2017-10-01] MEDS: OMEPRAZOLE 10 MG CAPSULE.DR GT SCH (08:30)
[2017-10-01] MEDS: HEPARIN SODIUM, PORCINE 5000 UNITS/1 ML VIAL SQ SCH ×2 (08:31→20:43)
[2017-10-01] MEDS: RENAL NOVASOURCE 1,000 ML BOTTLE GT PRN (08:31)
[2017-10-01] MEDS: ACETAMINOPHEN 650 MG/20 ML UDC- FOR SA PATIENTS ONLY GT PRN (08:32)
[2017-10-01] MEDS: NEOMY SULF/BACITRAC ZN/POLY 15 GM TUBE TP SCH ×4 (09:00→20:45)
[2017-10-01] MEDS: VITAMINS A AND D 56.7 GM TUBE TP SCH ×2 (09:00→20:45)
[2017-10-01] MEDS: HYDROGEN PEROXIDE 480 ML BOTTLE TP SCH ×2 (09:00→20:45)
[2017-10-01] MEDS: ZINC OXIDE 30 GM TUBE TP SCH (09:00)
--- NOTE | 2017-10-01 12:50 | NUR ---
Cale. assigned was assisting room-mate while Licensed nurse assigned was providing oral care to patient. Patient with HOB elevated, no distress noted. On low air loss mattress. visiting patient notified will continue to provide routine oral care later on again. and patient notified patient will be cleaned shorty since patient just moved his bowels.
--- NOTE | 2017-10-01 13:00 | NUR ---
Charge nurse was in the pt's room to administer Merrem IV. Pt had a bowel movement and WALE Baron was preparing to clean the pt. Pt's at bedside. Charge nurse politely asked pt's to step out of the room while care is being provided. Pt's said she was about to leave anyway and that she hardly visits during the day. Charge nurse politely replied that she understands but explained that the rule to ask family members to step out of the room while care is being provided is for everybody. Pt's obliged but she was mumbling as she stepped out of the room. Pt was cleaned by WALE Baron and LUIZ Tsang. Pt's called the nurses station a few minutes after she left and told the charge nurse that since the staff does not want her in the room, to please remind them to keep the pt clean, make him look presentable especially from Sunday through Sunday when he will most likely have visitors, and to make sure that the bed linen is not wrinkled. Charge nurse communicated pt's 's reminders to WALE and INSPECTOR WELDED PARTS assigned to pt. Charge nurse also checked the pt. Pt is clean, appears comfortable, bed linen not wrinkled.
--- NOTE | 2017-10-01 13:10 | NUR ---
Completed patient care with ELECTRICAL MAINTENANCE WORKER and Licensed nurse assigned. Kept clean and comfortable. HOB elevated. On low air loss mattress. Gt in place patent and no residual. Bed lines wrinkle free. Turned and repositioned. Kitchen Catheter intact with tubing straight properly anchored. Yellow urine flowing with no backflow. Infection control maintained. Call light in reach. All needs met and attended.
--- NOTE | 2017-10-01 13:20 | NUR ---
Removed IV line on right forearm due to leaking. Started a new peripheral IV line on the right forearm near the elbow. Attempted x 1, with good blood return.
[2017-10-01] MEDS: MULTIVIT, IRON, MIN NO. 8, FA 1 TAB GT SCH (20:42)
[2017-10-01] MEDS: FINASTERIDE (5 MG) 5 MG TABLET GT SCH (20:42)
[2017-10-01] MEDS: DOCUSATE SODIUM LIQ 100 MG/10 ML UDC GT SCH (20:43)
[2017-10-01] MEDS: ASCORBIC ACID 500 MG TABLET GT SCH (20:43)
[2017-10-01] MEDS: SENNOSIDES 8.6 MG TABLET PO SCH (21:41)
[2017-10-02] MEDS: GLYCOPYRROLATE 1 MG TABLET GT SCH ×5 (00:08→23:57)
[2017-10-02] MEDS: ALBUTEROL FS 2.5 MG/3 ML VIAL.NEB NEB SCH ×4 (01:44→19:30)
[2017-10-02] MEDS: IPRATROPIUM NEB FS 0.5 MG/2.5 ML AMPUL.NEB NEB SCH ×4 (01:44→19:30)
[2017-10-02] MEDS: BACLOFEN (10 MG) 10 MG TABLET GT SCH ×3 (05:34→21:08)
[2017-10-02] MEDS: MEROPENEM 500 MG in IV NS 0.9% 100 ML IV SCH (05:36)
[2017-10-02] MEDS: LEVOTHYROXINE SODIUM 125 MCG TABLET GT SCH (05:39)
[2017-10-02 07:58] LABS: BASOPHILS % (AUTO) 0.3 % (0.0-2.0); EOSINOPHILS % (AUTO) 2.7 % (0.0-6.0); HEMATOCRIT 35 % (39-51); HEMOGLOBIN 11.1 g/dL (13.5-17.5); MEAN CORPUSCULAR HEMOGLOBIN 24 PG (26.0-33.0); MEAN CORPUSCULAR HGB CONC 32 g/dl (31.0-36.0); MEAN CORPUSCULAR VOLUME 75 fL (80-96); MONOCYTES # (AUTO) 0.7 /CMM (0.1-1.30); MONOCYTES % (AUTO) 6.2 % (2.0-12.0); NEUTROPHILS # (AUTO) 7.8 /CMM (1.8-8.9); NEUTROPHILS % (AUTO) 65.8 % (43.0-81.0); PLATELET COUNT (AUTO) 405 /CMM (150-450); RDW COEFFICIENT OF VARIATION 19.7 (11.5-15.0); RED BLOOD CELL COUNT(AUTO) 4.67 MIL/uL (4.5-6.0); WHITE BLOOD COUNT (AUTO) 11.8 K/uL (4.3-11.0)
[2017-10-02 08:12] VITALS: BP 92/60
[2017-10-02] MEDS: HYDROGEN PEROXIDE 480 ML BOTTLE TP SCH ×2 (09:18→21:10)
[2017-10-02] MEDS: AMIODARONE HCL 200 MG TABLET GT SCH (09:18)
[2017-10-02] MEDS: POLYETHYLENE GLYCOL 3350 17 GM POWD.PACK GT SCH (09:18)
[2017-10-02] MEDS: HEPARIN SODIUM, PORCINE 5000 UNITS/1 ML VIAL SQ SCH ×2 (09:18→21:09)
[2017-10-02] MEDS: NEOMY SULF/BACITRAC ZN/POLY 15 GM TUBE TP SCH ×3 (09:18→21:10)
[2017-10-02] MEDS: POLYVINYL ALCOHOL 15 ML BOTTLE EACHEYE SCH ×4 (09:18→21:07)
[2017-10-02] MEDS: OMEPRAZOLE 10 MG CAPSULE.DR GT SCH (09:18)
[2017-10-02] MEDS: POTASSIUM CHLORIDE 20 MEQ/15 ML ML GT SCH (09:18)
[2017-10-02] MEDS: ACIDOPHILUS/BULGARICUS 1 EACH TAB.CHEW GT SCH (09:18)
[2017-10-02] MEDS: VITAMINS A AND D 56.7 GM TUBE TP SCH ×2 (09:19→21:10)
--- NOTE | 2017-10-02 11:40 | NUR ---
Noted small area of excoriation on the left and right buttocks. Received order to apply zinc oxide and Mepilex q shift and PRN for 14 days. Addendum: 10/02/17 at 1735 by NOAH OGDEN RN Pt had a large bowel movement.
--- NOTE | 2017-10-02 17:29 | NUR ---
Small areas of excoriation on the buttocks look like it is healing well. Small excoriation on the right buttock is already healed. Pt cleaned and repositioned left and right sides only. Kept clean and dry as much as possible. Bed linen has no wrinkles. Pt appears comfortable.
--- NOTE | 2017-10-02 18:00 | NUR ---
Pt's came to visit. Notified her of small area of excoriation on the buttocks and showed her the picture. upset. Explained to her that the pt had a large bowel movement and the small area of excoriation is already healing.
--- NOTE | 2017-10-02 18:35 | NUR ---
Notified Dr. Reeder that pt's is asking to apply Nystatin powder on the buttocks excoriation. Received order for wound consult.
[2017-10-02 19:49] VITALS: BP 109/60
[2017-10-02] MEDS: FINASTERIDE (5 MG) 5 MG TABLET GT SCH (20:00)
[2017-10-02] MEDS: DOCUSATE SODIUM LIQ 100 MG/10 ML UDC GT SCH (21:07)
[2017-10-02] MEDS: MULTIVIT, IRON, MIN NO. 8, FA 1 TAB GT SCH (21:08)
[2017-10-02] MEDS: ASCORBIC ACID 500 MG TABLET GT SCH (21:09)
[2017-10-02] MEDS: ZINC OXIDE 30 GM TUBE TP SCH (21:10)
[2017-10-02] MEDS: SENNOSIDES 8.6 MG TABLET PO SCH (21:11)
[2017-10-03] MEDS: IPRATROPIUM NEB FS 0.5 MG/2.5 ML AMPUL.NEB NEB SCH ×4 (01:52→19:31)
[2017-10-03] MEDS: ALBUTEROL FS 2.5 MG/3 ML VIAL.NEB NEB SCH ×4 (01:52→19:31)
[2017-10-03] MEDS: BACLOFEN (10 MG) 10 MG TABLET GT SCH ×3 (05:27→20:58)
[2017-10-03] MEDS: GLYCOPYRROLATE 1 MG TABLET GT SCH ×4 (05:27→23:52)
[2017-10-03] MEDS: LEVOTHYROXINE SODIUM 125 MCG TABLET GT SCH (05:27)
[2017-10-03 07:51] VITALS: BP 113/69
[2017-10-03] MEDS: POLYVINYL ALCOHOL 15 ML BOTTLE EACHEYE SCH ×4 (08:28→20:58)
[2017-10-03] MEDS: ACIDOPHILUS/BULGARICUS 1 EACH TAB.CHEW GT SCH (08:29)
[2017-10-03] MEDS: AMIODARONE HCL 200 MG TABLET GT SCH (08:29)
[2017-10-03] MEDS: POLYETHYLENE GLYCOL 3350 17 GM POWD.PACK GT SCH (08:30)
[2017-10-03] MEDS: POTASSIUM CHLORIDE 20 MEQ/15 ML ML GT SCH (08:30)
[2017-10-03] MEDS: OMEPRAZOLE 10 MG CAPSULE.DR GT SCH (08:30)
[2017-10-03] MEDS: HEPARIN SODIUM, PORCINE 5000 UNITS/1 ML VIAL SQ SCH ×2 (08:33→20:58)
[2017-10-03] MEDS: NEOMY SULF/BACITRAC ZN/POLY 15 GM TUBE TP SCH ×2 (09:00→21:01)
[2017-10-03] MEDS: HYDROGEN PEROXIDE 480 ML BOTTLE TP SCH ×2 (09:00→20:59)
[2017-10-03] MEDS: VITAMINS A AND D 56.7 GM TUBE TP SCH ×2 (09:00→21:01)
[2017-10-03] MEDS: ZINC OXIDE 30 GM TUBE TP SCH ×2 (09:00→21:01)
--- NOTE | 2017-10-03 09:39 | NUR ---
WOUND CARE CONSULT: PT SEEN FOR BUTTOCKS EXCORIATION. CONCUR WITH CURRENT ORDER FOR ZINC OXIDE AND MEPILEX. CONTINUE ALL SKIN PROTECTION MEASURES INCLUDING KEEPING SKIN CLEAN AND DRY. DISCUSSED WITH NURSING STAFF. ALL SKIN PROTECTION MEASURES IN PLACE INCLUDING FIRST STEP MATTRESS. WILL SEE PRN. IN AGREEMENT WITH PLAN OF CARE.
--- NOTE | 2017-10-03 11:45 | NUR ---
Seen and examined by BISI Paniagua given.
[2017-10-03] MEDS: RENAL NOVASOURCE 1,000 ML BOTTLE GT PRN (15:36)
[2017-10-03 20:00] VITALS: BP 122/73
[2017-10-03] MEDS: FINASTERIDE (5 MG) 5 MG TABLET GT SCH (20:54)
[2017-10-03] MEDS: MULTIVIT, IRON, MIN NO. 8, FA 1 TAB GT SCH (20:58)
[2017-10-03] MEDS: ASCORBIC ACID 500 MG TABLET GT SCH (20:58)
[2017-10-03] MEDS: DOCUSATE SODIUM LIQ 100 MG/10 ML UDC GT SCH (20:58)
[2017-10-03] MEDS: SENNOSIDES 8.6 MG TABLET PO SCH (21:01)
[2017-10-04] MEDS: ALBUTEROL FS 2.5 MG/3 ML VIAL.NEB NEB SCH ×4 (01:47→20:05)
[2017-10-04] MEDS: IPRATROPIUM NEB FS 0.5 MG/2.5 ML AMPUL.NEB NEB SCH ×4 (01:47→20:05)
[2017-10-04] MEDS: GLYCOPYRROLATE 1 MG TABLET GT SCH ×3 (05:16→17:09)
[2017-10-04] MEDS: BACLOFEN (10 MG) 10 MG TABLET GT SCH ×3 (05:16→21:02)
[2017-10-04] MEDS: LEVOTHYROXINE SODIUM 125 MCG TABLET GT SCH (05:17)
[2017-10-04 08:00] VITALS: BP 100/60
[2017-10-04] MEDS: NEOMY SULF/BACITRAC ZN/POLY 15 GM TUBE TP SCH (09:00)
[2017-10-04] MEDS: HYDROGEN PEROXIDE 480 ML BOTTLE TP SCH ×2 (09:00→21:03)
[2017-10-04] MEDS: ZINC OXIDE 30 GM TUBE TP SCH ×2 (09:00→21:03)
[2017-10-04] MEDS: VITAMINS A AND D 56.7 GM TUBE TP SCH (09:00)
[2017-10-04] MEDS: POLYVINYL ALCOHOL 15 ML BOTTLE EACHEYE SCH ×4 (09:20→21:02)
[2017-10-04] MEDS: POTASSIUM CHLORIDE 20 MEQ/15 ML ML GT SCH (09:21)
[2017-10-04] MEDS: OMEPRAZOLE 10 MG CAPSULE.DR GT SCH (09:21)
[2017-10-04] MEDS: AMIODARONE HCL 200 MG TABLET GT SCH (09:21)
[2017-10-04] MEDS: POLYETHYLENE GLYCOL 3350 17 GM POWD.PACK GT SCH (09:21)
[2017-10-04] MEDS: ACIDOPHILUS/BULGARICUS 1 EACH TAB.CHEW GT SCH (09:21)
[2017-10-04] MEDS: HEPARIN SODIUM, PORCINE 5000 UNITS/1 ML VIAL SQ SCH ×2 (09:22→21:03)
[2017-10-04] MEDS: RENAL NOVASOURCE 1,000 ML BOTTLE GT PRN (17:36)
[2017-10-04 20:00] VITALS: BP 128/72
[2017-10-04] MEDS: FINASTERIDE (5 MG) 5 MG TABLET GT SCH (20:00)
[2017-10-04] MEDS: DOCUSATE SODIUM LIQ 100 MG/10 ML UDC GT SCH (21:02)
[2017-10-04] MEDS: ASCORBIC ACID 500 MG TABLET GT SCH (21:03)
[2017-10-04] MEDS: MULTIVIT, IRON, MIN NO. 8, FA 1 TAB GT SCH (21:03)
[2017-10-04] MEDS: SENNOSIDES 8.6 MG TABLET PO SCH (21:03)
[2017-10-05] MEDS: GLYCOPYRROLATE 1 MG TABLET GT SCH ×4 (00:15→17:30)
[2017-10-05] MEDS: IPRATROPIUM NEB FS 0.5 MG/2.5 ML AMPUL.NEB NEB SCH ×3 (00:38→14:10)
[2017-10-05] MEDS: ALBUTEROL FS 2.5 MG/3 ML VIAL.NEB NEB SCH ×3 (00:38→14:10)
[2017-10-05] MEDS: BACLOFEN (10 MG) 10 MG TABLET GT SCH ×3 (05:23→21:13)
[2017-10-05] MEDS: LEVOTHYROXINE SODIUM 125 MCG TABLET GT SCH (05:23)
--- NOTE | 2017-10-05 06:42 | NUR ---
Pt buttocks excoriation improving with treatment.Repositioned q 2 hours and kept dry and clean.All needs attended.
[2017-10-05 07:48] VITALS: BP 115/76
[2017-10-05 08:00] VITALS: BP 115/76
[2017-10-05] MEDS: POLYVINYL ALCOHOL 15 ML BOTTLE EACHEYE SCH ×4 (08:58→21:13)
[2017-10-05] MEDS: ACIDOPHILUS/BULGARICUS 1 EACH TAB.CHEW GT SCH (08:59)
[2017-10-05] MEDS: AMIODARONE HCL 200 MG TABLET GT SCH (08:59)
[2017-10-05] MEDS: POLYETHYLENE GLYCOL 3350 17 GM POWD.PACK GT SCH (08:59)
[2017-10-05] MEDS: POTASSIUM CHLORIDE 20 MEQ/15 ML ML GT SCH (09:00)
[2017-10-05] MEDS: OMEPRAZOLE 10 MG CAPSULE.DR GT SCH (09:00)
[2017-10-05] MEDS: HEPARIN SODIUM, PORCINE 5000 UNITS/1 ML VIAL SQ SCH ×2 (09:01→21:13)
[2017-10-05] MEDS: HYDROGEN PEROXIDE 480 ML BOTTLE TP SCH ×2 (09:01→21:13)
[2017-10-05] MEDS: ZINC OXIDE 30 GM TUBE TP SCH ×2 (09:01→21:14)
--- NOTE | 2017-10-05 11:18 | NUR ---
Subacute horse racetrack manager and subacute social service agency director received a letter on behalf of Mrs. Bradley, resident's . The letter states that she will be out of the country for urgent brief overseas travel from October 15, 2017 to October 25, 2017 and that during her absence, she has delegated any decision making relating to the health and welfare of her to her vegetable tier Robb Wilson Esq ([phone]). She requests him to represent and act on her behalf. The letter also states that she has hired Mikki Crawford as a caregiver/sitter for the resident during her absence. Charge nurse informed.
[2017-10-05] MEDS: FINASTERIDE (5 MG) 5 MG TABLET GT SCH (20:00)
[2017-10-05 20:28] VITALS: BP 123/81
[2017-10-05] MEDS: MULTIVIT, IRON, MIN NO. 8, FA 1 TAB GT SCH (21:13)
[2017-10-05] MEDS: DOCUSATE SODIUM LIQ 100 MG/10 ML UDC GT SCH (21:13)
[2017-10-05] MEDS: ASCORBIC ACID 500 MG TABLET GT SCH (21:13)
[2017-10-05] MEDS: SENNOSIDES 8.6 MG TABLET PO SCH (21:14)
[2017-10-06] MEDS: RENAL NOVASOURCE 1,000 ML BOTTLE GT PRN (00:17)
[2017-10-06] MEDS: GLYCOPYRROLATE 1 MG TABLET GT SCH ×4 (00:17→17:17)
[2017-10-06] MEDS: BACLOFEN (10 MG) 10 MG TABLET GT SCH ×3 (05:00→20:37)
[2017-10-06] MEDS: LEVOTHYROXINE SODIUM 125 MCG TABLET GT SCH (06:12)
[2017-10-06] MEDS: IPRATROPIUM NEB FS 0.5 MG/2.5 ML AMPUL.NEB NEB SCH ×3 (07:35→20:50)
[2017-10-06] MEDS: ALBUTEROL FS 2.5 MG/3 ML VIAL.NEB NEB SCH ×3 (07:35→20:50)
[2017-10-06 07:57] VITALS: BP 104/58
[2017-10-06] MEDS: HYDROGEN PEROXIDE 480 ML BOTTLE TP SCH ×2 (09:00→20:37)
[2017-10-06] MEDS: ZINC OXIDE 30 GM TUBE TP SCH ×2 (09:00→20:37)
[2017-10-06] MEDS: AMIODARONE HCL 200 MG TABLET GT SCH (09:31)
[2017-10-06] MEDS: OMEPRAZOLE 10 MG CAPSULE.DR GT SCH (09:31)
[2017-10-06] MEDS: POLYVINYL ALCOHOL 15 ML BOTTLE EACHEYE SCH ×4 (09:31→20:37)
[2017-10-06] MEDS: POTASSIUM CHLORIDE 20 MEQ/15 ML ML GT SCH (09:31)
[2017-10-06] MEDS: ACIDOPHILUS/BULGARICUS 1 EACH TAB.CHEW GT SCH (09:31)
[2017-10-06] MEDS: POLYETHYLENE GLYCOL 3350 17 GM POWD.PACK GT SCH (09:31)
[2017-10-06] MEDS: HEPARIN SODIUM, PORCINE 5000 UNITS/1 ML VIAL SQ SCH ×2 (09:33→20:37)
[2017-10-06 19:56] VITALS: BP 133/87
[2017-10-06] MEDS: FINASTERIDE (5 MG) 5 MG TABLET GT SCH (20:37)
[2017-10-06] MEDS: DOCUSATE SODIUM LIQ 100 MG/10 ML UDC GT SCH (20:37)
[2017-10-06] MEDS: MULTIVIT, IRON, MIN NO. 8, FA 1 TAB GT SCH (20:37)
[2017-10-06] MEDS: ASCORBIC ACID 500 MG TABLET GT SCH (20:37)
[2017-10-06] MEDS: SENNOSIDES 8.6 MG TABLET PO SCH (22:00)
[2017-10-07] MEDS: GLYCOPYRROLATE 1 MG TABLET GT SCH ×5 (00:59→23:47)
[2017-10-07] MEDS: RENAL NOVASOURCE 1,000 ML BOTTLE GT PRN (01:09)
[2017-10-07] MEDS: IPRATROPIUM NEB FS 0.5 MG/2.5 ML AMPUL.NEB NEB SCH ×4 (02:43→19:00)
[2017-10-07] MEDS: ALBUTEROL FS 2.5 MG/3 ML VIAL.NEB NEB SCH ×4 (02:43→19:00)
[2017-10-07] MEDS: BACLOFEN (10 MG) 10 MG TABLET GT SCH ×3 (05:00→21:14)
[2017-10-07] MEDS: LEVOTHYROXINE SODIUM 125 MCG TABLET GT SCH (06:47)
[2017-10-07 08:23] VITALS: BP 92/57
[2017-10-07] MEDS: POLYVINYL ALCOHOL 15 ML BOTTLE EACHEYE SCH ×4 (09:36→21:14)
[2017-10-07] MEDS: ACIDOPHILUS/BULGARICUS 1 EACH TAB.CHEW GT SCH (09:37)
[2017-10-07] MEDS: HEPARIN SODIUM, PORCINE 5000 UNITS/1 ML VIAL SQ SCH ×2 (09:37→21:15)
[2017-10-07] MEDS: AMIODARONE HCL 200 MG TABLET GT SCH (09:37)
[2017-10-07] MEDS: POLYETHYLENE GLYCOL 3350 17 GM POWD.PACK GT SCH (09:37)
[2017-10-07] MEDS: OMEPRAZOLE 10 MG CAPSULE.DR GT SCH (09:37)
[2017-10-07] MEDS: POTASSIUM CHLORIDE 20 MEQ/15 ML ML GT SCH (09:37)
[2017-10-07] MEDS: ZINC OXIDE 30 GM TUBE TP SCH ×2 (09:38→21:15)
[2017-10-07] MEDS: HYDROGEN PEROXIDE 480 ML BOTTLE TP SCH ×2 (09:38→21:15)
[2017-10-07 19:51] VITALS: BP 103/59
[2017-10-07] MEDS: FINASTERIDE (5 MG) 5 MG TABLET GT SCH (20:00)
[2017-10-07] MEDS: DOCUSATE SODIUM LIQ 100 MG/10 ML UDC GT SCH (21:14)
[2017-10-07] MEDS: MULTIVIT, IRON, MIN NO. 8, FA 1 TAB GT SCH (21:14)
[2017-10-07] MEDS: ASCORBIC ACID 500 MG TABLET GT SCH (21:14)
[2017-10-07] MEDS: SENNOSIDES 8.6 MG TABLET PO SCH (21:15)
[2017-10-08] MEDS: ALBUTEROL FS 2.5 MG/3 ML VIAL.NEB NEB SCH ×4 (01:15→19:33)
[2017-10-08] MEDS: IPRATROPIUM NEB FS 0.5 MG/2.5 ML AMPUL.NEB NEB SCH ×4 (01:15→19:33)
[2017-10-08] MEDS: GLYCOPYRROLATE 1 MG TABLET GT SCH ×3 (05:45→17:44)
[2017-10-08] MEDS: BACLOFEN (10 MG) 10 MG TABLET GT SCH ×3 (05:45→20:53)
[2017-10-08] MEDS: LEVOTHYROXINE SODIUM 125 MCG TABLET GT SCH (05:45)
[2017-10-08 07:50] VITALS: BP 114/56
[2017-10-08 07:51] VITALS: BP 114/56
[2017-10-08] MEDS: POLYVINYL ALCOHOL 15 ML BOTTLE EACHEYE SCH ×4 (09:06→20:53)
[2017-10-08] MEDS: POTASSIUM CHLORIDE 20 MEQ/15 ML ML GT SCH (09:07)
[2017-10-08] MEDS: AMIODARONE HCL 200 MG TABLET GT SCH (09:07)
[2017-10-08] MEDS: POLYETHYLENE GLYCOL 3350 17 GM POWD.PACK GT SCH (09:07)
[2017-10-08] MEDS: OMEPRAZOLE 10 MG CAPSULE.DR GT SCH (09:07)
[2017-10-08] MEDS: ACIDOPHILUS/BULGARICUS 1 EACH TAB.CHEW GT SCH (09:07)
[2017-10-08] MEDS: ZINC OXIDE 30 GM TUBE TP SCH ×2 (09:08→20:54)
[2017-10-08] MEDS: HYDROGEN PEROXIDE 480 ML BOTTLE TP SCH ×2 (09:08→20:54)
[2017-10-08] MEDS: HEPARIN SODIUM, PORCINE 5000 UNITS/1 ML VIAL SQ SCH ×2 (09:08→20:54)
--- NOTE | 2017-10-08 11:43 | NUR ---
Resident was seen by creel operator Dr. Forrester. Dr. Forrester reported that there were no abnormal findings based on eye exam. was informed.
[2017-10-08] MEDS: FINASTERIDE (5 MG) 5 MG TABLET GT SCH (20:53)
[2017-10-08] MEDS: ASCORBIC ACID 500 MG TABLET GT SCH (20:53)
[2017-10-08] MEDS: DOCUSATE SODIUM LIQ 100 MG/10 ML UDC GT SCH (20:53)
[2017-10-08] MEDS: MULTIVIT, IRON, MIN NO. 8, FA 1 TAB GT SCH (20:53)
[2017-10-08] MEDS: SENNOSIDES 8.6 MG TABLET PO SCH (21:01)
[2017-10-08 22:54] VITALS: BP 110/65
[2017-10-09] MEDS: GLYCOPYRROLATE 1 MG TABLET GT SCH ×4 (00:17→17:28)
[2017-10-09] MEDS: IPRATROPIUM NEB FS 0.5 MG/2.5 ML AMPUL.NEB NEB SCH ×4 (01:21→19:47)
[2017-10-09] MEDS: ALBUTEROL FS 2.5 MG/3 ML VIAL.NEB NEB SCH ×4 (01:21→19:47)
[2017-10-09] MEDS: LEVOTHYROXINE SODIUM 125 MCG TABLET GT SCH (05:52)
[2017-10-09] MEDS: BACLOFEN (10 MG) 10 MG TABLET GT SCH ×3 (05:52→21:46)
[2017-10-09 07:53] VITALS: BP 108/54
[2017-10-09] MEDS: POLYVINYL ALCOHOL 15 ML BOTTLE EACHEYE SCH ×4 (09:03→21:45)
[2017-10-09] MEDS: POTASSIUM CHLORIDE 20 MEQ/15 ML ML GT SCH (09:04)
[2017-10-09] MEDS: OMEPRAZOLE 10 MG CAPSULE.DR GT SCH (09:04)
[2017-10-09] MEDS: POLYETHYLENE GLYCOL 3350 17 GM POWD.PACK GT SCH (09:04)
[2017-10-09] MEDS: ACIDOPHILUS/BULGARICUS 1 EACH TAB.CHEW GT SCH (09:04)
[2017-10-09] MEDS: AMIODARONE HCL 200 MG TABLET GT SCH (09:04)
[2017-10-09] MEDS: HEPARIN SODIUM, PORCINE 5000 UNITS/1 ML VIAL SQ SCH ×2 (09:05→21:47)
[2017-10-09] MEDS: HYDROGEN PEROXIDE 480 ML BOTTLE TP SCH ×2 (09:05→21:47)
[2017-10-09] MEDS: ZINC OXIDE 30 GM TUBE TP SCH ×2 (09:05→21:47)
[2017-10-09] MEDS: RENAL NOVASOURCE 1,000 ML BOTTLE GT PRN (12:38)
[2017-10-09 19:57] VITALS: BP 118/63
[2017-10-09] MEDS: FINASTERIDE (5 MG) 5 MG TABLET GT SCH (20:00)
[2017-10-09] MEDS: DOCUSATE SODIUM LIQ 100 MG/10 ML UDC GT SCH (21:45)
[2017-10-09] MEDS: MULTIVIT, IRON, MIN NO. 8, FA 1 TAB GT SCH (21:46)
[2017-10-09] MEDS: ASCORBIC ACID 500 MG TABLET GT SCH (21:47)
[2017-10-09] MEDS: SENNOSIDES 8.6 MG TABLET PO SCH (21:48)
[2017-10-10] MEDS: GLYCOPYRROLATE 1 MG TABLET GT SCH ×5 (00:39→23:57)
[2017-10-10] MEDS: ALBUTEROL FS 2.5 MG/3 ML VIAL.NEB NEB SCH ×4 (02:14→19:30)
[2017-10-10] MEDS: IPRATROPIUM NEB FS 0.5 MG/2.5 ML AMPUL.NEB NEB SCH ×4 (02:14→19:30)
[2017-10-10] MEDS: BACLOFEN (10 MG) 10 MG TABLET GT SCH ×3 (05:00→21:21)
[2017-10-10] MEDS: LEVOTHYROXINE SODIUM 125 MCG TABLET GT SCH (06:31)
--- NOTE | 2017-10-10 07:36 | NUR ---
Social Service Section of [facility] (1st quarter) completed. Resident is uncommunicative. Resident's , Fanny, is his conservator and is involved in his care. Discharge to a lower level of care when medically appropriate. often refuses podiatry visit as she states that she is the one taking care of his nails. The resident was seen by trenching machine operator Dr. Forrester on October 08, 2017 for his annual eye exam. The resident was also seen by Dr. Daniel THAO on 01/08/2017 for his dental cleaning. 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
[2017-10-10 08:13] VITALS: BP 104/75
[2017-10-10] MEDS: HYDROGEN PEROXIDE 480 ML BOTTLE TP SCH ×2 (09:00→21:21)
[2017-10-10] MEDS: ZINC OXIDE 30 GM TUBE TP SCH ×2 (09:00→21:22)
[2017-10-10] MEDS: HEPARIN SODIUM, PORCINE 5000 UNITS/1 ML VIAL SQ SCH ×2 (09:00→21:21)
[2017-10-10] MEDS: POLYVINYL ALCOHOL 15 ML BOTTLE EACHEYE SCH ×4 (09:55→21:21)
[2017-10-10] MEDS: OMEPRAZOLE 10 MG CAPSULE.DR GT SCH (09:56)
[2017-10-10] MEDS: POTASSIUM CHLORIDE 20 MEQ/15 ML ML GT SCH (09:56)
[2017-10-10] MEDS: ACIDOPHILUS/BULGARICUS 1 EACH TAB.CHEW GT SCH (09:56)
[2017-10-10] MEDS: POLYETHYLENE GLYCOL 3350 17 GM POWD.PACK GT SCH (09:56)
[2017-10-10] MEDS: AMIODARONE HCL 200 MG TABLET GT SCH (09:56)
--- NOTE | 2017-10-10 12:03 | NUR ---
Seen and examined by Dr. Paniagua, no new order given.
[2017-10-10] MEDS: FINASTERIDE (5 MG) 5 MG TABLET GT SCH (20:00)
[2017-10-10 20:26] VITALS: BP 123/80
[2017-10-10] MEDS: ASCORBIC ACID 500 MG TABLET GT SCH (21:21)
[2017-10-10] MEDS: DOCUSATE SODIUM LIQ 100 MG/10 ML UDC GT SCH (21:21)
[2017-10-10] MEDS: MULTIVIT, IRON, MIN NO. 8, FA 1 TAB GT SCH (21:21)
[2017-10-10] MEDS: SENNOSIDES 8.6 MG TABLET PO SCH (21:22)
[2017-10-11] MEDS: ALBUTEROL FS 2.5 MG/3 ML VIAL.NEB NEB SCH ×4 (01:42→19:13)
[2017-10-11] MEDS: IPRATROPIUM NEB FS 0.5 MG/2.5 ML AMPUL.NEB NEB SCH ×4 (01:42→19:13)
[2017-10-11] MEDS: GLYCOPYRROLATE 1 MG TABLET GT SCH ×4 (05:17→23:58)
[2017-10-11] MEDS: LEVOTHYROXINE SODIUM 125 MCG TABLET GT SCH (05:17)
[2017-10-11] MEDS: BACLOFEN (10 MG) 10 MG TABLET GT SCH ×3 (05:17→21:21)
[2017-10-11] MEDS: RENAL NOVASOURCE 1,000 ML BOTTLE GT PRN (06:45)
[2017-10-11 07:38] VITALS: BP 117/66
[2017-10-11] MEDS: POLYVINYL ALCOHOL 15 ML BOTTLE EACHEYE SCH ×4 (09:30→21:21)
[2017-10-11] MEDS: OMEPRAZOLE 10 MG CAPSULE.DR GT SCH (09:31)
[2017-10-11] MEDS: ACIDOPHILUS/BULGARICUS 1 EACH TAB.CHEW GT SCH (09:31)
[2017-10-11] MEDS: AMIODARONE HCL 200 MG TABLET GT SCH (09:31)
[2017-10-11] MEDS: POTASSIUM CHLORIDE 20 MEQ/15 ML ML GT SCH (09:31)
[2017-10-11] MEDS: POLYETHYLENE GLYCOL 3350 17 GM POWD.PACK GT SCH (09:31)
[2017-10-11] MEDS: HYDROGEN PEROXIDE 480 ML BOTTLE TP SCH ×2 (09:31→21:22)
[2017-10-11] MEDS: HEPARIN SODIUM, PORCINE 5000 UNITS/1 ML VIAL SQ SCH ×2 (09:31→21:21)
[2017-10-11] MEDS: ZINC OXIDE 30 GM TUBE TP SCH ×2 (09:32→21:22)
[2017-10-11] MEDS: FINASTERIDE (5 MG) 5 MG TABLET GT SCH (20:00)
[2017-10-11 20:30] VITALS: BP 99/54
[2017-10-11] MEDS: DOCUSATE SODIUM LIQ 100 MG/10 ML UDC GT SCH (21:21)
[2017-10-11] MEDS: MULTIVIT, IRON, MIN NO. 8, FA 1 TAB GT SCH (21:21)
[2017-10-11] MEDS: ASCORBIC ACID 500 MG TABLET GT SCH (21:21)
[2017-10-11] MEDS: SENNOSIDES 8.6 MG TABLET PO SCH (21:22)
[2017-10-12] MEDS: RENAL NOVASOURCE 1,000 ML BOTTLE GT PRN (00:02)
[2017-10-12] MEDS: ALBUTEROL FS 2.5 MG/3 ML VIAL.NEB NEB SCH ×4 (01:08→19:51)
[2017-10-12] MEDS: IPRATROPIUM NEB FS 0.5 MG/2.5 ML AMPUL.NEB NEB SCH ×4 (01:08→19:51)
[2017-10-12] MEDS: BACLOFEN (10 MG) 10 MG TABLET GT SCH ×3 (05:15→21:39)
[2017-10-12] MEDS: GLYCOPYRROLATE 1 MG TABLET GT SCH ×4 (05:16→23:52)
[2017-10-12] MEDS: LEVOTHYROXINE SODIUM 125 MCG TABLET GT SCH (05:16)
[2017-10-12] MEDS: LORAZEPAM 0.5 MG TABLET GT PRN (07:30)
[2017-10-12 07:45] VITALS: BP 103/56
--- NOTE | 2017-10-12 08:30 | NUR ---
Resident with episode of seizure approx 60 to 90 sec. staff stayed with the patient at bedside. Ativan given via GT as ordered, no aspiration, suctioned trach and mouth after the episode. O2 sat remained at 100%, HR 105, BP 103/56, RR 20.
[2017-10-12] MEDS: HYDROGEN PEROXIDE 480 ML BOTTLE TP SCH (09:00)
[2017-10-12] MEDS: ZINC OXIDE 30 GM TUBE TP SCH (09:00)
[2017-10-12] MEDS: POLYVINYL ALCOHOL 15 ML BOTTLE EACHEYE SCH ×4 (09:53→21:39)
[2017-10-12] MEDS: AMIODARONE HCL 200 MG TABLET GT SCH (09:54)
[2017-10-12] MEDS: POLYETHYLENE GLYCOL 3350 17 GM POWD.PACK GT SCH (09:54)
[2017-10-12] MEDS: HEPARIN SODIUM, PORCINE 5000 UNITS/1 ML VIAL SQ SCH ×2 (09:54→21:40)
[2017-10-12] MEDS: ACIDOPHILUS/BULGARICUS 1 EACH TAB.CHEW GT SCH (09:54)
[2017-10-12] MEDS: OMEPRAZOLE 10 MG CAPSULE.DR GT SCH (09:54)
[2017-10-12] MEDS: POTASSIUM CHLORIDE 20 MEQ/15 ML ML GT SCH (09:54)
--- NOTE | 2017-10-12 18:45 | NUR ---
Notified resident's , Fanny of seizure episode this AM. No further episode of seizure.
[2017-10-12] MEDS: FINASTERIDE (5 MG) 5 MG TABLET GT SCH (20:00)
[2017-10-12 20:09] VITALS: BP 132/78
[2017-10-12] MEDS: MULTIVIT, IRON, MIN NO. 8, FA 1 TAB GT SCH (21:39)
[2017-10-12] MEDS: ASCORBIC ACID 500 MG TABLET GT SCH (21:39)
[2017-10-12] MEDS: DOCUSATE SODIUM LIQ 100 MG/10 ML UDC GT SCH (21:39)
[2017-10-12] MEDS: SENNOSIDES 8.6 MG TABLET PO SCH (21:40)
[2017-10-13] MEDS: IPRATROPIUM NEB FS 0.5 MG/2.5 ML AMPUL.NEB NEB SCH ×4 (01:19→20:05)
[2017-10-13] MEDS: ALBUTEROL FS 2.5 MG/3 ML VIAL.NEB NEB SCH ×4 (01:20→20:05)
[2017-10-13] MEDS: LEVOTHYROXINE SODIUM 125 MCG TABLET GT SCH (05:35)
[2017-10-13] MEDS: GLYCOPYRROLATE 1 MG TABLET GT SCH ×3 (05:35→17:06)
[2017-10-13] MEDS: BACLOFEN (10 MG) 10 MG TABLET GT SCH ×3 (05:35→20:59)
[2017-10-13] MEDS: RENAL NOVASOURCE 1,000 ML BOTTLE GT PRN (05:35)
[2017-10-13 07:26] VITALS: BP 125/74
[2017-10-13] MEDS: AMIODARONE HCL 200 MG TABLET GT SCH (08:45)
[2017-10-13] MEDS: ACIDOPHILUS/BULGARICUS 1 EACH TAB.CHEW GT SCH (08:45)
[2017-10-13] MEDS: POLYETHYLENE GLYCOL 3350 17 GM POWD.PACK GT SCH (08:45)
[2017-10-13] MEDS: POTASSIUM CHLORIDE 20 MEQ/15 ML ML GT SCH (08:45)
[2017-10-13] MEDS: OMEPRAZOLE 10 MG CAPSULE.DR GT SCH (08:45)
[2017-10-13] MEDS: POLYVINYL ALCOHOL 15 ML BOTTLE EACHEYE SCH ×4 (08:45→20:59)
[2017-10-13] MEDS: HEPARIN SODIUM, PORCINE 5000 UNITS/1 ML VIAL SQ SCH ×2 (08:46→20:59)
[2017-10-13] MEDS: ZINC OXIDE 30 GM TUBE TP SCH ×2 (09:00→20:59)
[2017-10-13] MEDS: HYDROGEN PEROXIDE 480 ML BOTTLE TP SCH ×2 (09:00→20:59)
[2017-10-13 19:58] VITALS: BP 123/76
[2017-10-13] MEDS: FINASTERIDE (5 MG) 5 MG TABLET GT SCH (20:58)
[2017-10-13] MEDS: DOCUSATE SODIUM LIQ 100 MG/10 ML UDC GT SCH (20:59)
[2017-10-13] MEDS: ASCORBIC ACID 500 MG TABLET GT SCH (20:59)
[2017-10-13] MEDS: MULTIVIT, IRON, MIN NO. 8, FA 1 TAB GT SCH (20:59)
[2017-10-13] MEDS: SENNOSIDES 8.6 MG TABLET PO SCH (21:38)
[2017-10-14] MEDS: GLYCOPYRROLATE 1 MG TABLET GT SCH ×5 (00:20→23:40)
[2017-10-14] MEDS: IPRATROPIUM NEB FS 0.5 MG/2.5 ML AMPUL.NEB NEB SCH ×4 (01:58→19:38)
[2017-10-14] MEDS: ALBUTEROL FS 2.5 MG/3 ML VIAL.NEB NEB SCH ×4 (01:58→19:38)
[2017-10-14] MEDS: LEVOTHYROXINE SODIUM 125 MCG TABLET GT SCH (05:35)
[2017-10-14] MEDS: BACLOFEN (10 MG) 10 MG TABLET GT SCH ×3 (05:35→21:42)
[2017-10-14] MEDS: RENAL NOVASOURCE 1,000 ML BOTTLE GT PRN (05:37)
[2017-10-14 07:44] VITALS: BP 103/63
[2017-10-14] MEDS: OMEPRAZOLE 10 MG CAPSULE.DR GT SCH (08:40)
[2017-10-14] MEDS: POLYETHYLENE GLYCOL 3350 17 GM POWD.PACK GT SCH (08:40)
[2017-10-14] MEDS: AMIODARONE HCL 200 MG TABLET GT SCH (08:40)
[2017-10-14] MEDS: POLYVINYL ALCOHOL 15 ML BOTTLE EACHEYE SCH ×4 (08:40→21:41)
[2017-10-14] MEDS: POTASSIUM CHLORIDE 20 MEQ/15 ML ML GT SCH (08:40)
[2017-10-14] MEDS: ACIDOPHILUS/BULGARICUS 1 EACH TAB.CHEW GT SCH (08:40)
[2017-10-14] MEDS: HEPARIN SODIUM, PORCINE 5000 UNITS/1 ML VIAL SQ SCH ×2 (08:41→21:42)
[2017-10-14] MEDS: ZINC OXIDE 30 GM TUBE TP SCH ×2 (09:00→21:42)
[2017-10-14] MEDS: HYDROGEN PEROXIDE 480 ML BOTTLE TP SCH ×2 (09:00→21:42)
[2017-10-14] MEDS: FINASTERIDE (5 MG) 5 MG TABLET GT SCH (20:00)
[2017-10-14 20:57] VITALS: BP 98/62
[2017-10-14] MEDS: DOCUSATE SODIUM LIQ 100 MG/10 ML UDC GT SCH (21:41)
[2017-10-14] MEDS: SENNOSIDES 8.6 MG TABLET PO SCH (21:42)
[2017-10-14] MEDS: MULTIVIT, IRON, MIN NO. 8, FA 1 TAB GT SCH (21:42)
[2017-10-14] MEDS: ASCORBIC ACID 500 MG TABLET GT SCH (21:42)
[2017-10-15] MEDS: IPRATROPIUM NEB FS 0.5 MG/2.5 ML AMPUL.NEB NEB SCH ×4 (01:05→19:58)
[2017-10-15] MEDS: ALBUTEROL FS 2.5 MG/3 ML VIAL.NEB NEB SCH ×4 (01:05→19:58)
[2017-10-15] MEDS: GLYCOPYRROLATE 1 MG TABLET GT SCH ×4 (05:44→23:53)
[2017-10-15] MEDS: LEVOTHYROXINE SODIUM 125 MCG TABLET GT SCH (05:44)
[2017-10-15] MEDS: BACLOFEN (10 MG) 10 MG TABLET GT SCH ×3 (05:44→21:09)
[2017-10-15 07:48] VITALS: BP 112/80
[2017-10-15] MEDS: HYDROGEN PEROXIDE 480 ML BOTTLE TP SCH ×2 (09:00→21:09)
[2017-10-15] MEDS: ZINC OXIDE 30 GM TUBE TP SCH ×2 (09:00→21:09)
[2017-10-15] MEDS: POLYVINYL ALCOHOL 15 ML BOTTLE EACHEYE SCH ×4 (09:56→21:09)
[2017-10-15] MEDS: ACIDOPHILUS/BULGARICUS 1 EACH TAB.CHEW GT SCH (09:57)
[2017-10-15] MEDS: POTASSIUM CHLORIDE 20 MEQ/15 ML ML GT SCH (09:57)
[2017-10-15] MEDS: AMIODARONE HCL 200 MG TABLET GT SCH (09:57)
[2017-10-15] MEDS: OMEPRAZOLE 10 MG CAPSULE.DR GT SCH (09:57)
[2017-10-15] MEDS: POLYETHYLENE GLYCOL 3350 17 GM POWD.PACK GT SCH (09:57)
[2017-10-15] MEDS: HEPARIN SODIUM, PORCINE 5000 UNITS/1 ML VIAL SQ SCH ×2 (09:58→21:09)
[2017-10-15] MEDS: RENAL NOVASOURCE 1,000 ML BOTTLE GT PRN (15:35)
--- NOTE | 2017-10-15 15:41 | NUR ---
Asked Dr. Reeder if he wanted to continue Heparin for pt. Received order to continue Heparin 5000 units SC q 12 for DVT prophylaxis.
[2017-10-15] MEDS: FINASTERIDE (5 MG) 5 MG TABLET GT SCH (20:00)
[2017-10-15 20:05] VITALS: BP 118/56
[2017-10-15] MEDS: MULTIVIT, IRON, MIN NO. 8, FA 1 TAB GT SCH (21:09)
[2017-10-15] MEDS: DOCUSATE SODIUM LIQ 100 MG/10 ML UDC GT SCH (21:09)
[2017-10-15] MEDS: ASCORBIC ACID 500 MG TABLET GT SCH (21:09)
[2017-10-15] MEDS: SENNOSIDES 8.6 MG TABLET GT SCH (21:09)
[2017-10-16] MEDS: ALBUTEROL FS 2.5 MG/3 ML VIAL.NEB NEB SCH ×4 (00:45→20:11)
[2017-10-16] MEDS: IPRATROPIUM NEB FS 0.5 MG/2.5 ML AMPUL.NEB NEB SCH ×4 (00:45→20:10)
[2017-10-16] MEDS: LEVOTHYROXINE SODIUM 125 MCG TABLET GT SCH (05:23)
[2017-10-16] MEDS: GLYCOPYRROLATE 1 MG TABLET GT SCH ×4 (05:23→23:44)
[2017-10-16] MEDS: BACLOFEN (10 MG) 10 MG TABLET GT SCH ×3 (05:23→21:21)
[2017-10-16 08:08] VITALS: BP 105/68
[2017-10-16] MEDS: POLYVINYL ALCOHOL 15 ML BOTTLE EACHEYE SCH ×4 (09:25→21:21)
[2017-10-16] MEDS: AMIODARONE HCL 200 MG TABLET GT SCH (09:25)
[2017-10-16] MEDS: ACIDOPHILUS/BULGARICUS 1 EACH TAB.CHEW GT SCH (09:25)
[2017-10-16] MEDS: HEPARIN SODIUM, PORCINE 5000 UNITS/1 ML VIAL SQ SCH ×2 (09:26→21:23)
[2017-10-16] MEDS: POLYETHYLENE GLYCOL 3350 17 GM POWD.PACK GT SCH (09:26)
[2017-10-16] MEDS: POTASSIUM CHLORIDE 20 MEQ/15 ML ML GT SCH (09:26)
[2017-10-16] MEDS: OMEPRAZOLE 10 MG CAPSULE.DR GT SCH (09:26)
[2017-10-16] MEDS: ZINC OXIDE 30 GM TUBE TP SCH ×2 (10:30→21:23)
[2017-10-16] MEDS: HYDROGEN PEROXIDE 480 ML BOTTLE TP SCH ×2 (10:30→21:23)
--- NOTE | 2017-10-16 11:50 | NUR ---
Buttocks excoriation has already healed. Received order to apply zinc oxide cream q shift and PRN soiling on the buttocks for skin maintenance. Notified pt's caregiver Mikki. Pt's endorsed to notify the caregiver of minor issues during her absence.
[2017-10-16] MEDS ORDERED: ZINC OXIDE 30 GM TUBE TP PRN (12:30)
[2017-10-16] MEDS: RENAL NOVASOURCE 1,000 ML BOTTLE GT PRN (16:13)
[2017-10-16] MEDS: FINASTERIDE (5 MG) 5 MG TABLET GT SCH (20:00)
[2017-10-16 20:53] VITALS: BP 129/59
[2017-10-16] MEDS: ASCORBIC ACID 500 MG TABLET GT SCH (21:21)
[2017-10-16] MEDS: DOCUSATE SODIUM LIQ 100 MG/10 ML UDC GT SCH (21:21)
[2017-10-16] MEDS: MULTIVIT, IRON, MIN NO. 8, FA 1 TAB GT SCH (21:21)
[2017-10-16] MEDS: SENNOSIDES 8.6 MG TABLET GT SCH (21:23)
[2017-10-17] MEDS: IPRATROPIUM NEB FS 0.5 MG/2.5 ML AMPUL.NEB NEB SCH ×4 (01:59→20:20)
[2017-10-17] MEDS: ALBUTEROL FS 2.5 MG/3 ML VIAL.NEB NEB SCH ×4 (01:59→20:20)
[2017-10-17] MEDS: LEVOTHYROXINE SODIUM 125 MCG TABLET GT SCH (05:44)
[2017-10-17] MEDS: GLYCOPYRROLATE 1 MG TABLET GT SCH ×4 (05:44→23:13)
[2017-10-17] MEDS: BACLOFEN (10 MG) 10 MG TABLET GT SCH ×3 (05:44→20:55)
[2017-10-17 08:08] VITALS: BP 116/69
[2017-10-17] MEDS: POLYVINYL ALCOHOL 15 ML BOTTLE EACHEYE SCH ×4 (08:10→20:55)
[2017-10-17] MEDS: POLYETHYLENE GLYCOL 3350 17 GM POWD.PACK GT SCH (08:11)
[2017-10-17] MEDS: OMEPRAZOLE 10 MG CAPSULE.DR GT SCH (08:11)
[2017-10-17] MEDS: ACIDOPHILUS/BULGARICUS 1 EACH TAB.CHEW GT SCH (08:11)
[2017-10-17] MEDS: POTASSIUM CHLORIDE 20 MEQ/15 ML ML GT SCH (08:11)
[2017-10-17] MEDS: AMIODARONE HCL 200 MG TABLET GT SCH (08:11)
[2017-10-17] MEDS: HEPARIN SODIUM, PORCINE 5000 UNITS/1 ML VIAL SQ SCH ×2 (08:13→20:55)
[2017-10-17 08:16] LABS: BASOPHILS # (AUTO) 0.1 /CMM (0.0-0.2); BASOPHILS % (AUTO) 0.5 % (0.0-2.0); EOSINOPHILS % (AUTO) 3.2 % (0.0-6.0); HEMATOCRIT 31 % (39-51); HEMOGLOBIN 10.1 g/dL (13.5-17.5); LYMPHOCYTES # (AUTO) 2.3 /CMM (0.8-4.8); MEAN CORPUSCULAR HEMOGLOBIN 24 PG (26.0-33.0); MEAN CORPUSCULAR HGB CONC 32 g/dl (31.0-36.0); MEAN CORPUSCULAR VOLUME 74 fL (80-96); MONOCYTES # (AUTO) 1.1 /CMM (0.1-1.30); MONOCYTES % (AUTO) 9.2 % (2.0-12.0); NEUTROPHILS # (AUTO) 8.4 /CMM (1.8-8.9); NEUTROPHILS % (AUTO) 68.1 % (43.0-81.0); PLATELET COUNT (AUTO) 333 /CMM (150-450); RDW COEFFICIENT OF VARIATION 19.9 (11.5-15.0); RED BLOOD CELL COUNT(AUTO) 4.25 MIL/uL (4.5-6.0); WHITE BLOOD COUNT (AUTO) 12.4 K/uL (4.3-11.0)
[2017-10-17] MEDS: HYDROGEN PEROXIDE 480 ML BOTTLE TP SCH ×2 (09:00→20:56)
[2017-10-17] MEDS: ZINC OXIDE 30 GM TUBE TP SCH ×2 (09:00→20:56)
[2017-10-17 20:07] VITALS: BP 116/63
[2017-10-17] MEDS: MULTIVIT, IRON, MIN NO. 8, FA 1 TAB GT SCH (20:55)
[2017-10-17] MEDS: DOCUSATE SODIUM LIQ 100 MG/10 ML UDC GT SCH (20:55)
[2017-10-17] MEDS: FINASTERIDE (5 MG) 5 MG TABLET GT SCH (20:55)
[2017-10-17] MEDS: ASCORBIC ACID 500 MG TABLET GT SCH (20:55)
[2017-10-17] MEDS: SENNOSIDES 8.6 MG TABLET GT SCH (21:15)
[2017-10-17] MEDS: RENAL NOVASOURCE 1,000 ML BOTTLE GT PRN (21:23)
[2017-10-18] MEDS: ALBUTEROL FS 2.5 MG/3 ML VIAL.NEB NEB SCH ×4 (01:08→20:25)
[2017-10-18] MEDS: IPRATROPIUM NEB FS 0.5 MG/2.5 ML AMPUL.NEB NEB SCH ×4 (01:08→20:25)
[2017-10-18] MEDS: RENAL NOVASOURCE 1,000 ML BOTTLE GT PRN ×2 (05:11→21:00)
[2017-10-18] MEDS: LEVOTHYROXINE SODIUM 125 MCG TABLET GT SCH (05:11)
[2017-10-18] MEDS: GLYCOPYRROLATE 1 MG TABLET GT SCH ×4 (05:11→23:25)
[2017-10-18] MEDS: BACLOFEN (10 MG) 10 MG TABLET GT SCH ×3 (05:11→20:59)
[2017-10-18] MEDS: MAGNESIUM HYDROXIDE 30 ML UDC GT PRN ×2 (05:11→21:00)
[2017-10-18 07:28] VITALS: BP 99/64
[2017-10-18] MEDS: POLYVINYL ALCOHOL 15 ML BOTTLE EACHEYE SCH ×4 (08:39→20:59)
[2017-10-18] MEDS: OMEPRAZOLE 10 MG CAPSULE.DR GT SCH (08:40)
[2017-10-18] MEDS: POTASSIUM CHLORIDE 20 MEQ/15 ML ML GT SCH (08:40)
[2017-10-18] MEDS: ACIDOPHILUS/BULGARICUS 1 EACH TAB.CHEW GT SCH (08:40)
[2017-10-18] MEDS: AMIODARONE HCL 200 MG TABLET GT SCH (08:40)
[2017-10-18] MEDS: POLYETHYLENE GLYCOL 3350 17 GM POWD.PACK GT SCH (08:40)
[2017-10-18] MEDS: HEPARIN SODIUM, PORCINE 5000 UNITS/1 ML VIAL SQ SCH ×2 (08:41→21:00)
[2017-10-18] MEDS: ZINC OXIDE 30 GM TUBE TP SCH ×2 (09:00→21:00)
[2017-10-18] MEDS: ERGOCALCIFEROL (VITAMIN D2) 8,000 UNIT/ML GT SCH (09:00)
[2017-10-18] MEDS: HYDROGEN PEROXIDE 480 ML BOTTLE TP SCH ×2 (09:00→21:00)
--- NOTE | 2017-10-18 20:58 | NUR ---
Seen by CARMELITA Posada no new order.
[2017-10-18] MEDS: ASCORBIC ACID 500 MG TABLET GT SCH (20:59)
[2017-10-18] MEDS: DOCUSATE SODIUM LIQ 100 MG/10 ML UDC GT SCH (20:59)
[2017-10-18] MEDS: FINASTERIDE (5 MG) 5 MG TABLET GT SCH (20:59)
[2017-10-18] MEDS: MULTIVIT, IRON, MIN NO. 8, FA 1 TAB GT SCH (20:59)
[2017-10-18] MEDS: SENNOSIDES 8.6 MG TABLET GT SCH (21:00)
[2017-10-19 00:30] VITALS: BP 132/54
[2017-10-19] MEDS: ALBUTEROL FS 2.5 MG/3 ML VIAL.NEB NEB SCH ×4 (02:20→19:25)
[2017-10-19] MEDS: IPRATROPIUM NEB FS 0.5 MG/2.5 ML AMPUL.NEB NEB SCH ×4 (02:20→19:25)
[2017-10-19] MEDS: BACLOFEN (10 MG) 10 MG TABLET GT SCH ×3 (05:08→21:10)
[2017-10-19] MEDS: LEVOTHYROXINE SODIUM 125 MCG TABLET GT SCH (05:08)
[2017-10-19] MEDS: GLYCOPYRROLATE 1 MG TABLET GT SCH ×4 (05:08→23:13)
[2017-10-19 07:46] VITALS: BP 105/63
[2017-10-19] MEDS: OMEPRAZOLE 10 MG CAPSULE.DR GT SCH (09:25)
[2017-10-19] MEDS: POLYETHYLENE GLYCOL 3350 17 GM POWD.PACK GT SCH (09:25)
[2017-10-19] MEDS: POLYVINYL ALCOHOL 15 ML BOTTLE EACHEYE SCH ×4 (09:25→21:08)
[2017-10-19] MEDS: POTASSIUM CHLORIDE 20 MEQ/15 ML ML GT SCH (09:25)
[2017-10-19] MEDS: AMIODARONE HCL 200 MG TABLET GT SCH (09:25)
[2017-10-19] MEDS: ACIDOPHILUS/BULGARICUS 1 EACH TAB.CHEW GT SCH (09:25)
[2017-10-19] MEDS: ZINC OXIDE 30 GM TUBE TP SCH ×2 (09:26→21:11)
[2017-10-19] MEDS: HYDROGEN PEROXIDE 480 ML BOTTLE TP SCH ×2 (09:26→21:11)
[2017-10-19] MEDS: HEPARIN SODIUM, PORCINE 5000 UNITS/1 ML VIAL SQ SCH ×2 (09:26→21:11)
[2017-10-19] MEDS: FINASTERIDE (5 MG) 5 MG TABLET GT SCH (20:59)
[2017-10-19] MEDS: DOCUSATE SODIUM LIQ 100 MG/10 ML UDC GT SCH (21:08)
[2017-10-19] MEDS: MULTIVIT, IRON, MIN NO. 8, FA 1 TAB GT SCH (21:10)
[2017-10-19] MEDS: ASCORBIC ACID 500 MG TABLET GT SCH (21:10)
[2017-10-19] MEDS: SENNOSIDES 8.6 MG TABLET GT SCH (21:11)
[2017-10-19] MEDS: RENAL NOVASOURCE 1,000 ML BOTTLE GT PRN (23:13)
[2017-10-19 23:24] VITALS: BP 99/57
[2017-10-20] MEDS: IPRATROPIUM NEB FS 0.5 MG/2.5 ML AMPUL.NEB NEB SCH ×4 (01:01→19:53)
[2017-10-20] MEDS: ALBUTEROL FS 2.5 MG/3 ML VIAL.NEB NEB SCH ×4 (01:01→19:53)
[2017-10-20] MEDS: BACLOFEN (10 MG) 10 MG TABLET GT SCH ×3 (05:05→21:36)
[2017-10-20] MEDS: LEVOTHYROXINE SODIUM 125 MCG TABLET GT SCH (05:05)
[2017-10-20] MEDS: GLYCOPYRROLATE 1 MG TABLET GT SCH ×4 (05:05→23:04)
[2017-10-20 07:41] VITALS: BP 112/68
[2017-10-20] MEDS: POLYETHYLENE GLYCOL 3350 17 GM POWD.PACK GT SCH (09:00)
[2017-10-20] MEDS: POLYVINYL ALCOHOL 15 ML BOTTLE EACHEYE SCH ×4 (09:00→21:36)
[2017-10-20] MEDS: HEPARIN SODIUM, PORCINE 5000 UNITS/1 ML VIAL SQ SCH ×2 (09:00→21:37)
[2017-10-20] MEDS: ZINC OXIDE 30 GM TUBE TP SCH ×2 (09:00→21:37)
[2017-10-20] MEDS: ACIDOPHILUS/BULGARICUS 1 EACH TAB.CHEW GT SCH (09:00)
[2017-10-20] MEDS: HYDROGEN PEROXIDE 480 ML BOTTLE TP SCH ×2 (09:00→21:37)
[2017-10-20] MEDS: AMIODARONE HCL 200 MG TABLET GT SCH (09:00)
[2017-10-20] MEDS: OMEPRAZOLE 10 MG CAPSULE.DR GT SCH (09:00)
[2017-10-20] MEDS: POTASSIUM CHLORIDE 20 MEQ/15 ML ML GT SCH (09:00)
[2017-10-20] MEDS: FINASTERIDE (5 MG) 5 MG TABLET GT SCH (20:00)
[2017-10-20 20:14] VITALS: BP 105/61
[2017-10-20] MEDS: DOCUSATE SODIUM LIQ 100 MG/10 ML UDC GT SCH (21:36)
[2017-10-20] MEDS: ASCORBIC ACID 500 MG TABLET GT SCH (21:36)
[2017-10-20] MEDS: MULTIVIT, IRON, MIN NO. 8, FA 1 TAB GT SCH (21:36)
[2017-10-20] MEDS: SENNOSIDES 8.6 MG TABLET GT SCH (21:37)
[2017-10-20] MEDS: RENAL NOVASOURCE 1,000 ML BOTTLE GT PRN (22:34)
[2017-10-21] MEDS: ALBUTEROL FS 2.5 MG/3 ML VIAL.NEB NEB SCH ×4 (01:11→20:01)
[2017-10-21] MEDS: IPRATROPIUM NEB FS 0.5 MG/2.5 ML AMPUL.NEB NEB SCH ×4 (01:11→20:01)
[2017-10-21] MEDS: GLYCOPYRROLATE 1 MG TABLET GT SCH ×4 (05:52→23:51)
[2017-10-21] MEDS: LEVOTHYROXINE SODIUM 125 MCG TABLET GT SCH (05:52)
[2017-10-21] MEDS: BACLOFEN (10 MG) 10 MG TABLET GT SCH ×3 (05:52→21:02)
[2017-10-21 07:37] VITALS: BP 129/60
[2017-10-21] MEDS: POLYVINYL ALCOHOL 15 ML BOTTLE EACHEYE SCH ×4 (09:48→21:00)
[2017-10-21] MEDS: AMIODARONE HCL 200 MG TABLET GT SCH (09:49)
[2017-10-21] MEDS: POTASSIUM CHLORIDE 20 MEQ/15 ML ML GT SCH (09:50)
[2017-10-21] MEDS: POLYETHYLENE GLYCOL 3350 17 GM POWD.PACK GT SCH (09:50)
[2017-10-21] MEDS: OMEPRAZOLE 10 MG CAPSULE.DR GT SCH (09:50)
[2017-10-21] MEDS: ACIDOPHILUS/BULGARICUS 1 EACH TAB.CHEW GT SCH (09:50)
[2017-10-21] MEDS: HEPARIN SODIUM, PORCINE 5000 UNITS/1 ML VIAL SQ SCH ×2 (09:53→21:03)
[2017-10-21] MEDS: ZINC OXIDE 30 GM TUBE TP SCH ×2 (10:30→21:03)
[2017-10-21] MEDS: HYDROGEN PEROXIDE 480 ML BOTTLE TP SCH ×2 (10:30→21:03)
[2017-10-21 20:00] VITALS: BP 105/48
[2017-10-21] MEDS: MULTIVIT, IRON, MIN NO. 8, FA 1 TAB GT SCH (20:59)
[2017-10-21] MEDS: FINASTERIDE (5 MG) 5 MG TABLET GT SCH (20:59)
[2017-10-21] MEDS: DOCUSATE SODIUM LIQ 100 MG/10 ML UDC GT SCH (21:00)
[2017-10-21] MEDS: ASCORBIC ACID 500 MG TABLET GT SCH (21:02)
[2017-10-21] MEDS: SENNOSIDES 8.6 MG TABLET GT SCH (21:04)
[2017-10-22] MEDS: ALBUTEROL FS 2.5 MG/3 ML VIAL.NEB NEB SCH ×4 (00:40→13:58)
[2017-10-22] MEDS: IPRATROPIUM NEB FS 0.5 MG/2.5 ML AMPUL.NEB NEB SCH ×4 (00:40→13:58)
[2017-10-22] MEDS: RENAL NOVASOURCE 1,000 ML BOTTLE GT PRN (04:53)
[2017-10-22] MEDS: BACLOFEN (10 MG) 10 MG TABLET GT SCH ×3 (05:08→21:07)
[2017-10-22] MEDS: LEVOTHYROXINE SODIUM 125 MCG TABLET GT SCH (05:08)
[2017-10-22] MEDS: GLYCOPYRROLATE 1 MG TABLET GT SCH ×3 (05:08→17:33)
[2017-10-22 07:55] VITALS: BP 121/72
[2017-10-22] MEDS: POLYVINYL ALCOHOL 15 ML BOTTLE EACHEYE SCH ×4 (08:57→21:07)
[2017-10-22] MEDS: AMIODARONE HCL 200 MG TABLET GT SCH (08:57)
[2017-10-22] MEDS: POTASSIUM CHLORIDE 20 MEQ/15 ML ML GT SCH (08:58)
[2017-10-22] MEDS: POLYETHYLENE GLYCOL 3350 17 GM POWD.PACK GT SCH (08:58)
[2017-10-22] MEDS: ACIDOPHILUS/BULGARICUS 1 EACH TAB.CHEW GT SCH (08:58)
[2017-10-22] MEDS: OMEPRAZOLE 10 MG CAPSULE.DR GT SCH (08:58)
[2017-10-22] MEDS: HEPARIN SODIUM, PORCINE 5000 UNITS/1 ML VIAL SQ SCH ×2 (08:59→21:10)
[2017-10-22] MEDS: HYDROGEN PEROXIDE 480 ML BOTTLE TP SCH ×2 (14:30→21:10)
[2017-10-22] MEDS: ZINC OXIDE 30 GM TUBE TP SCH ×2 (14:30→21:10)
[2017-10-22] MEDS: FINASTERIDE (5 MG) 5 MG TABLET GT SCH (20:00)
[2017-10-22 20:17] VITALS: BP 115/69
[2017-10-22] MEDS: MULTIVIT, IRON, MIN NO. 8, FA 1 TAB GT SCH (21:07)
[2017-10-22] MEDS: DOCUSATE SODIUM LIQ 100 MG/10 ML UDC GT SCH (21:07)
[2017-10-22] MEDS: ASCORBIC ACID 500 MG TABLET GT SCH (21:09)
[2017-10-22] MEDS: SENNOSIDES 8.6 MG TABLET GT SCH (21:10)
[2017-10-23] MEDS: GLYCOPYRROLATE 1 MG TABLET GT SCH ×4 (00:38→17:42)
[2017-10-23] MEDS: IPRATROPIUM NEB FS 0.5 MG/2.5 ML AMPUL.NEB NEB SCH ×4 (00:56→19:48)
[2017-10-23] MEDS: ALBUTEROL FS 2.5 MG/3 ML VIAL.NEB NEB SCH ×4 (00:56→19:48)
[2017-10-23] MEDS: BACLOFEN (10 MG) 10 MG TABLET GT SCH ×3 (05:29→21:06)
[2017-10-23] MEDS: LEVOTHYROXINE SODIUM 125 MCG TABLET GT SCH (05:29)
[2017-10-23] MEDS: RENAL NOVASOURCE 1,000 ML BOTTLE GT PRN (05:31)
[2017-10-23 07:56] VITALS: BP 101/63
[2017-10-23] MEDS: OMEPRAZOLE 10 MG CAPSULE.DR GT SCH (09:00)
[2017-10-23] MEDS: ZINC OXIDE 30 GM TUBE TP SCH ×2 (09:00→21:08)
[2017-10-23] MEDS: POLYETHYLENE GLYCOL 3350 17 GM POWD.PACK GT SCH (09:00)
[2017-10-23] MEDS: AMIODARONE HCL 200 MG TABLET GT SCH (09:00)
[2017-10-23] MEDS: POLYVINYL ALCOHOL 15 ML BOTTLE EACHEYE SCH ×4 (09:00→21:05)
[2017-10-23] MEDS: ACIDOPHILUS/BULGARICUS 1 EACH TAB.CHEW GT SCH (09:00)
[2017-10-23] MEDS: HEPARIN SODIUM, PORCINE 5000 UNITS/1 ML VIAL SQ SCH ×2 (09:00→21:08)
[2017-10-23] MEDS: POTASSIUM CHLORIDE 20 MEQ/15 ML ML GT SCH (09:00)
[2017-10-23] MEDS: HYDROGEN PEROXIDE 480 ML BOTTLE TP SCH ×2 (09:00→21:08)
[2017-10-23] MEDS: FINASTERIDE (5 MG) 5 MG TABLET GT SCH (20:00)
[2017-10-23 20:10] VITALS: BP 115/64
[2017-10-23] MEDS: MULTIVIT, IRON, MIN NO. 8, FA 1 TAB GT SCH (21:04)
[2017-10-23] MEDS: DOCUSATE SODIUM LIQ 100 MG/10 ML UDC GT SCH (21:05)
[2017-10-23] MEDS: ASCORBIC ACID 500 MG TABLET GT SCH (21:06)
[2017-10-23] MEDS: SENNOSIDES 8.6 MG TABLET GT SCH (21:09)
[2017-10-24] MEDS: GLYCOPYRROLATE 1 MG TABLET GT SCH ×5 (00:49→23:39)
[2017-10-24] MEDS: IPRATROPIUM NEB FS 0.5 MG/2.5 ML AMPUL.NEB NEB SCH ×4 (00:59→19:30)
[2017-10-24] MEDS: ALBUTEROL FS 2.5 MG/3 ML VIAL.NEB NEB SCH ×4 (00:59→19:30)
[2017-10-24] MEDS: BACLOFEN (10 MG) 10 MG TABLET GT SCH ×3 (05:03→20:48)
[2017-10-24] MEDS: LEVOTHYROXINE SODIUM 125 MCG TABLET GT SCH (05:03)
[2017-10-24 08:15] VITALS: BP 114/58
[2017-10-24] MEDS: POTASSIUM CHLORIDE 20 MEQ/15 ML ML GT SCH (08:30)
[2017-10-24] MEDS: HEPARIN SODIUM, PORCINE 5000 UNITS/1 ML VIAL SQ SCH ×3 (08:30→21:00)
[2017-10-24] MEDS: ACIDOPHILUS/BULGARICUS 1 EACH TAB.CHEW GT SCH (08:30)
[2017-10-24] MEDS: AMIODARONE HCL 200 MG TABLET GT SCH (08:30)
[2017-10-24] MEDS: OMEPRAZOLE 10 MG CAPSULE.DR GT SCH (08:30)
[2017-10-24] MEDS: POLYVINYL ALCOHOL 15 ML BOTTLE EACHEYE SCH ×4 (08:30→20:48)
[2017-10-24] MEDS: POLYETHYLENE GLYCOL 3350 17 GM POWD.PACK GT SCH (08:30)
--- NOTE | 2017-10-24 08:30 | NUR ---
RT PATIENT REC'D TRACHED ON COOL AEROSOL RANJIT WELL. PATIENT SUCTIONED WITH SMALL/MODERATE AMT OF SOLORZANO SEMITHICK SECRETIONS. PATIENT NON VERBAL OR RESPONSIVE TO COMMANDS. APPEARS COMFORTABLE AND IN NO DISTRESS AT THIS TIME. OANHU BAG AT HOB. CONT CURRENT PLAN OF RESP CARE. Addendum: 10/24/17 at 0830 by ENID FOWLER RT Amended: Links added.
[2017-10-24] MEDS: HYDROGEN PEROXIDE 480 ML BOTTLE TP SCH ×2 (09:00→20:49)
[2017-10-24] MEDS: ZINC OXIDE 30 GM TUBE TP SCH ×2 (09:00→20:49)
[2017-10-24] MEDS: RENAL NOVASOURCE 1,000 ML BOTTLE GT PRN (12:12)
[2017-10-24 20:03] VITALS: BP 121/79
[2017-10-24] MEDS: ASCORBIC ACID 500 MG TABLET GT SCH (20:48)
[2017-10-24] MEDS: FINASTERIDE (5 MG) 5 MG TABLET GT SCH (20:48)
[2017-10-24] MEDS: DOCUSATE SODIUM LIQ 100 MG/10 ML UDC GT SCH (20:48)
[2017-10-24] MEDS: MULTIVIT, IRON, MIN NO. 8, FA 1 TAB GT SCH (20:48)
[2017-10-24] MEDS: SENNOSIDES 8.6 MG TABLET GT SCH (21:06)
[2017-10-24] MEDS: MAGNESIUM HYDROXIDE 30 ML UDC GT PRN (23:30)
[2017-10-25] MEDS: ASCORBIC ACID 500 MG TABLET GT SCH
[2017-10-25] MEDS: IPRATROPIUM NEB FS 0.5 MG/2.5 ML AMPUL.NEB NEB SCH ×4 (02:28→19:46)
[2017-10-25] MEDS: ALBUTEROL FS 2.5 MG/3 ML VIAL.NEB NEB SCH ×4 (02:28→19:46)
[2017-10-25] MEDS: LEVOTHYROXINE SODIUM 125 MCG TABLET GT SCH (05:46)
[2017-10-25] MEDS: GLYCOPYRROLATE 1 MG TABLET GT SCH ×3 (05:46→18:07)
[2017-10-25] MEDS: BACLOFEN (10 MG) 10 MG TABLET GT SCH ×3 (05:46→21:00)
[2017-10-25 07:22] VITALS: BP 112/67
[2017-10-25] MEDS: POLYETHYLENE GLYCOL 3350 17 GM POWD.PACK GT SCH (08:17)
[2017-10-25] MEDS: ACIDOPHILUS/BULGARICUS 1 EACH TAB.CHEW GT SCH (08:17)
[2017-10-25] MEDS: OMEPRAZOLE 10 MG CAPSULE.DR GT SCH (08:17)
[2017-10-25] MEDS: AMIODARONE HCL 200 MG TABLET GT SCH (08:17)
[2017-10-25] MEDS: POTASSIUM CHLORIDE 20 MEQ/15 ML ML GT SCH (08:17)
[2017-10-25] MEDS: POLYVINYL ALCOHOL 15 ML BOTTLE EACHEYE SCH ×4 (08:17→21:00)
[2017-10-25] MEDS: ZINC OXIDE 30 GM TUBE TP SCH ×2 (08:18→21:00)
[2017-10-25] MEDS: HYDROGEN PEROXIDE 480 ML BOTTLE TP SCH ×2 (08:18→21:00)
[2017-10-25] MEDS: HEPARIN SODIUM, PORCINE 5000 UNITS/1 ML VIAL SQ SCH (08:18)
[2017-10-25] MEDS: RENAL NOVASOURCE 1,000 ML BOTTLE GT PRN (18:07)
[2017-10-25] MEDS: FINASTERIDE (5 MG) 5 MG TABLET GT SCH (20:00)
[2017-10-25] MEDS: MULTIVIT, IRON, MIN NO. 8, FA 1 TAB GT SCH (21:00)
[2017-10-25] MEDS: DOCUSATE SODIUM LIQ 100 MG/10 ML UDC GT SCH (21:00)
[2017-10-25] MEDS: SENNOSIDES 8.6 MG TABLET GT SCH (22:00)
[2017-10-25 23:02] VITALS: BP 131/93
[2017-10-26] MEDS: GLYCOPYRROLATE 1 MG TABLET GT SCH ×5 (00:52→23:08)
[2017-10-26] MEDS: ALBUTEROL FS 2.5 MG/3 ML VIAL.NEB NEB SCH ×4 (01:58→19:55)
[2017-10-26] MEDS: IPRATROPIUM NEB FS 0.5 MG/2.5 ML AMPUL.NEB NEB SCH ×4 (01:58→19:55)
[2017-10-26] MEDS: BACLOFEN (10 MG) 10 MG TABLET GT SCH ×3 (05:46→20:22)
[2017-10-26] MEDS: LEVOTHYROXINE SODIUM 125 MCG TABLET GT SCH (05:46)
[2017-10-26 08:00] VITALS: BP 117/79
[2017-10-26] MEDS: ACIDOPHILUS/BULGARICUS 1 EACH TAB.CHEW GT SCH (08:31)
[2017-10-26] MEDS: AMIODARONE HCL 200 MG TABLET GT SCH (08:31)
[2017-10-26] MEDS: POLYVINYL ALCOHOL 15 ML BOTTLE EACHEYE SCH ×4 (08:31→20:22)
[2017-10-26] MEDS: OMEPRAZOLE 10 MG CAPSULE.DR GT SCH (08:31)
[2017-10-26] MEDS: POLYETHYLENE GLYCOL 3350 17 GM POWD.PACK GT SCH (08:31)
[2017-10-26] MEDS: POTASSIUM CHLORIDE 20 MEQ/15 ML ML GT SCH (08:31)
[2017-10-26] MEDS: ZINC OXIDE 30 GM TUBE TP SCH ×2 (08:32→20:23)
[2017-10-26] MEDS: HYDROGEN PEROXIDE 480 ML BOTTLE TP SCH ×2 (08:32→20:23)
[2017-10-26] MEDS: HEPARIN SODIUM, PORCINE 5000 UNITS/1 ML VIAL SQ SCH ×2 (08:32→20:23)
--- NOTE | 2017-10-26 14:28 | NUR ---
IDT meeting held, reviewed current medications, treatment and laboratory. Family unable to attend the meeting. Pharmacist recommended TSH level and D/C [place] and Reglan due to non usage. Dr. David agreed to dc [place] but keep Reglan and TSH level for Sunday. Left a message to resident's regarding what was discussed in the meeting.
--- NOTE | 2017-10-26 16:05 | NUR ---
Spoke with Lyndsay Kirk acknowledged that she received the message left in her VM regarding the new order. Appreciated the call.
[2017-10-26] MEDS: ASCORBIC ACID 500 MG TABLET GT SCH (20:22)
[2017-10-26] MEDS: DOCUSATE SODIUM LIQ 100 MG/10 ML UDC GT SCH (20:22)
[2017-10-26] MEDS: MULTIVIT, IRON, MIN NO. 8, FA 1 TAB GT SCH (20:22)
[2017-10-26] MEDS: FINASTERIDE (5 MG) 5 MG TABLET GT SCH (20:22)
[2017-10-26] MEDS: RENAL NOVASOURCE 1,000 ML BOTTLE GT PRN (20:23)
[2017-10-26] MEDS: SENNOSIDES 8.6 MG TABLET GT SCH (21:07)
[2017-10-26 23:55] VITALS: BP 99/71
[2017-10-27] MEDS: IPRATROPIUM NEB FS 0.5 MG/2.5 ML AMPUL.NEB NEB SCH ×4 (01:01→20:42)
[2017-10-27] MEDS: ALBUTEROL FS 2.5 MG/3 ML VIAL.NEB NEB SCH ×4 (01:01→20:42)
--- NOTE | 2017-10-27 04:32 | NUR ---
PRN Kitchen Cath changed d/t leaking, tolerated well obtained clear yellow urine with no s/sx of bleeding, no sediments noted, pt with no s/sx of pain. Will cont to monitor.
[2017-10-27] MEDS: GLYCOPYRROLATE 1 MG TABLET GT SCH ×4 (05:23→23:21)
[2017-10-27] MEDS: BACLOFEN (10 MG) 10 MG TABLET GT SCH ×3 (05:23→20:40)
[2017-10-27] MEDS: MAGNESIUM HYDROXIDE 30 ML UDC GT PRN (05:24)
[2017-10-27] MEDS: LEVOTHYROXINE SODIUM 125 MCG TABLET GT SCH (05:24)
[2017-10-27 07:35] VITALS: BP 110/62
[2017-10-27] MEDS: POLYVINYL ALCOHOL 15 ML BOTTLE EACHEYE SCH ×4 (09:43→20:40)
[2017-10-27] MEDS: ZINC OXIDE 30 GM TUBE TP SCH ×2 (09:44→20:40)
[2017-10-27] MEDS: OMEPRAZOLE 10 MG CAPSULE.DR GT SCH (09:44)
[2017-10-27] MEDS: AMIODARONE HCL 200 MG TABLET GT SCH (09:44)
[2017-10-27] MEDS: POLYETHYLENE GLYCOL 3350 17 GM POWD.PACK GT SCH (09:44)
[2017-10-27] MEDS: HYDROGEN PEROXIDE 480 ML BOTTLE TP SCH ×2 (09:44→20:40)
[2017-10-27] MEDS: POTASSIUM CHLORIDE 20 MEQ/15 ML ML GT SCH (09:44)
[2017-10-27] MEDS: HEPARIN SODIUM, PORCINE 5000 UNITS/1 ML VIAL SQ SCH ×2 (09:44→20:40)
[2017-10-27] MEDS: ACIDOPHILUS/BULGARICUS 1 EACH TAB.CHEW GT SCH (09:44)
[2017-10-27] MEDS: FINASTERIDE (5 MG) 5 MG TABLET GT SCH (20:40)
[2017-10-27] MEDS: MULTIVIT, IRON, MIN NO. 8, FA 1 TAB GT SCH (20:40)
[2017-10-27] MEDS: DOCUSATE SODIUM LIQ 100 MG/10 ML UDC GT SCH (20:40)
[2017-10-27] MEDS: ASCORBIC ACID 500 MG TABLET GT SCH (20:40)
[2017-10-27] MEDS: SENNOSIDES 8.6 MG TABLET GT SCH (21:00)
[2017-10-27 22:11] VITALS: BP 96/57
[2017-10-27] MEDS: RENAL NOVASOURCE 1,000 ML BOTTLE GT PRN (23:23)
[2017-10-28] MEDS: ALBUTEROL FS 2.5 MG/3 ML VIAL.NEB NEB SCH ×4 (03:07→20:00)
[2017-10-28] MEDS: IPRATROPIUM NEB FS 0.5 MG/2.5 ML AMPUL.NEB NEB SCH ×4 (03:07→20:00)
[2017-10-28] MEDS: LEVOTHYROXINE SODIUM 125 MCG TABLET GT SCH (05:12)
[2017-10-28] MEDS: BACLOFEN (10 MG) 10 MG TABLET GT SCH ×3 (05:12→20:41)
[2017-10-28] MEDS: GLYCOPYRROLATE 1 MG TABLET GT SCH ×3 (05:12→17:06)
[2017-10-28 07:32] VITALS: BP 107/60
[2017-10-28] MEDS: POLYVINYL ALCOHOL 15 ML BOTTLE EACHEYE SCH ×4 (09:30→20:40)
[2017-10-28] MEDS: HYDROGEN PEROXIDE 480 ML BOTTLE TP SCH ×2 (09:31→20:48)
[2017-10-28] MEDS: POTASSIUM CHLORIDE 20 MEQ/15 ML ML GT SCH (09:31)
[2017-10-28] MEDS: ZINC OXIDE 30 GM TUBE TP SCH ×2 (09:31→20:48)
[2017-10-28] MEDS: HEPARIN SODIUM, PORCINE 5000 UNITS/1 ML VIAL SQ SCH ×2 (09:31→20:48)
[2017-10-28] MEDS: ACIDOPHILUS/BULGARICUS 1 EACH TAB.CHEW GT SCH (09:31)
[2017-10-28] MEDS: POLYETHYLENE GLYCOL 3350 17 GM POWD.PACK GT SCH (09:31)
[2017-10-28] MEDS: OMEPRAZOLE 10 MG CAPSULE.DR GT SCH (09:31)
[2017-10-28] MEDS: AMIODARONE HCL 200 MG TABLET GT SCH (09:31)
[2017-10-28 19:36] VITALS: BP 101/58
[2017-10-28] MEDS: FINASTERIDE (5 MG) 5 MG TABLET GT SCH (20:40)
[2017-10-28] MEDS: DOCUSATE SODIUM LIQ 100 MG/10 ML UDC GT SCH (20:41)
[2017-10-28] MEDS: MULTIVIT, IRON, MIN NO. 8, FA 1 TAB GT SCH (20:41)
[2017-10-28] MEDS: ASCORBIC ACID 500 MG TABLET GT SCH (20:41)
[2017-10-28] MEDS: SENNOSIDES 8.6 MG TABLET GT SCH (22:14)
[2017-10-29] MEDS: GLYCOPYRROLATE 1 MG TABLET GT SCH ×4 (00:04→17:21)
[2017-10-29] MEDS: IPRATROPIUM NEB FS 0.5 MG/2.5 ML AMPUL.NEB NEB SCH ×4 (01:53→19:30)
[2017-10-29] MEDS: ALBUTEROL FS 2.5 MG/3 ML VIAL.NEB NEB SCH ×4 (01:53→19:30)
[2017-10-29] MEDS: RENAL NOVASOURCE 1,000 ML BOTTLE GT PRN (03:43)
[2017-10-29] MEDS: BACLOFEN (10 MG) 10 MG TABLET GT SCH ×3 (05:34→20:47)
[2017-10-29] MEDS: LEVOTHYROXINE SODIUM 125 MCG TABLET GT SCH (05:34)
[2017-10-29] MEDS: POLYVINYL ALCOHOL 15 ML BOTTLE EACHEYE SCH ×4 (09:51→20:48)
[2017-10-29] MEDS: POTASSIUM CHLORIDE 20 MEQ/15 ML ML GT SCH (09:52)
[2017-10-29] MEDS: HYDROGEN PEROXIDE 480 ML BOTTLE TP SCH ×2 (09:52→20:50)
[2017-10-29] MEDS: ZINC OXIDE 30 GM TUBE TP SCH ×2 (09:52→20:50)
[2017-10-29] MEDS: ACIDOPHILUS/BULGARICUS 1 EACH TAB.CHEW GT SCH (09:52)
[2017-10-29] MEDS: AMIODARONE HCL 200 MG TABLET GT SCH (09:52)
[2017-10-29] MEDS: POLYETHYLENE GLYCOL 3350 17 GM POWD.PACK GT SCH (09:52)
[2017-10-29] MEDS: OMEPRAZOLE 10 MG CAPSULE.DR GT SCH (09:52)
[2017-10-29] MEDS: HEPARIN SODIUM, PORCINE 5000 UNITS/1 ML VIAL SQ SCH ×2 (09:52→20:50)
[2017-10-29 12:27] VITALS: BP 95/59
[2017-10-29 19:37] VITALS: BP 98/57
[2017-10-29] MEDS: MULTIVIT, IRON, MIN NO. 8, FA 1 TAB GT SCH (20:47)
[2017-10-29] MEDS: FINASTERIDE (5 MG) 5 MG TABLET GT SCH (20:47)
[2017-10-29] MEDS: DOCUSATE SODIUM LIQ 100 MG/10 ML UDC GT SCH (20:48)
[2017-10-29] MEDS: ASCORBIC ACID 500 MG TABLET GT SCH (20:50)
[2017-10-29] MEDS: SENNOSIDES 8.6 MG TABLET GT SCH (21:41)
[2017-10-30] MEDS: GLYCOPYRROLATE 1 MG TABLET GT SCH ×5 (00:26→23:21)
[2017-10-30] MEDS: ALBUTEROL FS 2.5 MG/3 ML VIAL.NEB NEB SCH ×4 (00:34→19:39)
[2017-10-30] MEDS: IPRATROPIUM NEB FS 0.5 MG/2.5 ML AMPUL.NEB NEB SCH ×4 (00:34→19:39)
[2017-10-30] MEDS: BACLOFEN (10 MG) 10 MG TABLET GT SCH ×3 (05:35→20:29)
[2017-10-30] MEDS: LEVOTHYROXINE SODIUM 125 MCG TABLET GT SCH (05:35)
[2017-10-30 08:00] VITALS: BP 103/62
[2017-10-30] MEDS: POTASSIUM CHLORIDE 20 MEQ/15 ML ML GT SCH (09:01)
[2017-10-30] MEDS: POLYETHYLENE GLYCOL 3350 17 GM POWD.PACK GT SCH (09:01)
[2017-10-30] MEDS: ACIDOPHILUS/BULGARICUS 1 EACH TAB.CHEW GT SCH (09:01)
[2017-10-30] MEDS: AMIODARONE HCL 200 MG TABLET GT SCH (09:01)
[2017-10-30] MEDS: POLYVINYL ALCOHOL 15 ML BOTTLE EACHEYE SCH ×4 (09:01→20:29)
[2017-10-30] MEDS: OMEPRAZOLE 10 MG CAPSULE.DR GT SCH (09:01)
[2017-10-30] MEDS: ZINC OXIDE 30 GM TUBE TP SCH ×2 (09:03→20:29)
[2017-10-30] MEDS: HYDROGEN PEROXIDE 480 ML BOTTLE TP SCH ×2 (09:03→20:29)
[2017-10-30] MEDS: HEPARIN SODIUM, PORCINE 5000 UNITS/1 ML VIAL SQ SCH ×2 (09:03→20:29)
[2017-10-30] MEDS: RENAL NOVASOURCE 1,000 ML BOTTLE GT PRN (09:15)
--- NOTE | 2017-10-30 10:00 | NUR ---
Seen by Dr. David. Relayed TSH 4.901 to him. Pt on Levothyroxine [address] David did not want to change dose of Levothyroxine since pt has a diagnosis of tachycardia. No new order.
[2017-10-30 19:37] VITALS: BP 101/63
[2017-10-30] MEDS: ASCORBIC ACID 500 MG TABLET GT SCH (20:29)
[2017-10-30] MEDS: MULTIVIT, IRON, MIN NO. 8, FA 1 TAB GT SCH (20:29)
[2017-10-30] MEDS: FINASTERIDE (5 MG) 5 MG TABLET GT SCH (20:29)
[2017-10-30] MEDS: DOCUSATE SODIUM LIQ 100 MG/10 ML UDC GT SCH (20:29)
[2017-10-30] MEDS: SENNOSIDES 8.6 MG TABLET GT SCH (21:35)
[2017-10-31] MEDS: ALBUTEROL FS 2.5 MG/3 ML VIAL.NEB NEB SCH ×4 (01:27→19:30)
[2017-10-31] MEDS: IPRATROPIUM NEB FS 0.5 MG/2.5 ML AMPUL.NEB NEB SCH ×4 (01:27→19:30)
[2017-10-31] MEDS: BACLOFEN (10 MG) 10 MG TABLET GT SCH ×3 (05:36→21:06)
[2017-10-31] MEDS: LEVOTHYROXINE SODIUM 125 MCG TABLET GT SCH (05:36)
[2017-10-31] MEDS: GLYCOPYRROLATE 1 MG TABLET GT SCH ×3 (05:36→17:13)
[2017-10-31 07:57] VITALS: BP 115/69
[2017-10-31] MEDS: POLYVINYL ALCOHOL 15 ML BOTTLE EACHEYE SCH ×4 (08:04→21:06)
[2017-10-31] MEDS: AMIODARONE HCL 200 MG TABLET GT SCH (08:05)
[2017-10-31] MEDS: POTASSIUM CHLORIDE 20 MEQ/15 ML ML GT SCH (08:05)
[2017-10-31] MEDS: ACIDOPHILUS/BULGARICUS 1 EACH TAB.CHEW GT SCH (08:05)
[2017-10-31] MEDS: POLYETHYLENE GLYCOL 3350 17 GM POWD.PACK GT SCH (08:05)
[2017-10-31] MEDS: OMEPRAZOLE 10 MG CAPSULE.DR GT SCH (08:05)
[2017-10-31] MEDS: HYDROGEN PEROXIDE 480 ML BOTTLE TP SCH ×2 (08:06→21:07)
[2017-10-31] MEDS: ZINC OXIDE 30 GM TUBE TP SCH ×2 (08:06→21:07)
[2017-10-31] MEDS: HEPARIN SODIUM, PORCINE 5000 UNITS/1 ML VIAL SQ SCH ×2 (08:06→21:07)
[2017-10-31] MEDS: RENAL NOVASOURCE 1,000 ML BOTTLE GT PRN (18:50)
[2017-10-31] MEDS: FINASTERIDE (5 MG) 5 MG TABLET GT SCH (20:00)
[2017-10-31] MEDS: ASCORBIC ACID 500 MG TABLET GT SCH (21:06)
[2017-10-31] MEDS: MULTIVIT, IRON, MIN NO. 8, FA 1 TAB GT SCH (21:06)
[2017-10-31] MEDS: DOCUSATE SODIUM LIQ 100 MG/10 ML UDC GT SCH (21:06)
[2017-10-31] MEDS: SENNOSIDES 8.6 MG TABLET GT SCH (21:07)
[2017-11-01] MEDS: GLYCOPYRROLATE 1 MG TABLET GT SCH ×4 (00:45→17:46)
[2017-11-01] MEDS: IPRATROPIUM NEB FS 0.5 MG/2.5 ML AMPUL.NEB NEB SCH ×4 (01:30→21:41)
[2017-11-01] MEDS: ALBUTEROL FS 2.5 MG/3 ML VIAL.NEB NEB SCH ×4 (01:30→21:41)
[2017-11-01] MEDS: LEVOTHYROXINE SODIUM 125 MCG TABLET GT SCH (05:06)
[2017-11-01] MEDS: BACLOFEN (10 MG) 10 MG TABLET GT SCH ×3 (05:06→20:49)
[2017-11-01 07:35] VITALS: BP 124/74
[2017-11-01] MEDS: POLYVINYL ALCOHOL 15 ML BOTTLE EACHEYE SCH ×4 (08:12→20:49)
[2017-11-01] MEDS: OMEPRAZOLE 10 MG CAPSULE.DR GT SCH (08:12)
[2017-11-01] MEDS: POTASSIUM CHLORIDE 20 MEQ/15 ML ML GT SCH (08:12)
[2017-11-01] MEDS: POLYETHYLENE GLYCOL 3350 17 GM POWD.PACK GT SCH (08:12)
[2017-11-01] MEDS: AMIODARONE HCL 200 MG TABLET GT SCH (08:12)
[2017-11-01] MEDS: ACIDOPHILUS/BULGARICUS 1 EACH TAB.CHEW GT SCH (08:12)
[2017-11-01] MEDS: HEPARIN SODIUM, PORCINE 5000 UNITS/1 ML VIAL SQ SCH ×2 (08:13→20:49)
[2017-11-01] MEDS: HYDROGEN PEROXIDE 480 ML BOTTLE TP SCH ×2 (08:13→20:49)
[2017-11-01] MEDS: ZINC OXIDE 30 GM TUBE TP SCH ×2 (08:13→20:49)
[2017-11-01 20:20] VITALS: BP 100/58
[2017-11-01] MEDS: DOCUSATE SODIUM LIQ 100 MG/10 ML UDC GT SCH (20:49)
[2017-11-01] MEDS: ASCORBIC ACID 500 MG TABLET GT SCH (20:49)
[2017-11-01] MEDS: MULTIVIT, IRON, MIN NO. 8, FA 1 TAB GT SCH (20:49)
[2017-11-01] MEDS: FINASTERIDE (5 MG) 5 MG TABLET GT SCH (20:49)
[2017-11-01] MEDS: SENNOSIDES 8.6 MG TABLET GT SCH (22:18)
[2017-11-02] MEDS: GLYCOPYRROLATE 1 MG TABLET GT SCH ×5 (00:46→23:40)
[2017-11-02] MEDS: IPRATROPIUM NEB FS 0.5 MG/2.5 ML AMPUL.NEB NEB SCH ×4 (03:25→20:26)
[2017-11-02] MEDS: ALBUTEROL FS 2.5 MG/3 ML VIAL.NEB NEB SCH ×4 (03:25→20:26)
[2017-11-02] MEDS: LEVOTHYROXINE SODIUM 125 MCG TABLET GT SCH (05:46)
[2017-11-02] MEDS: BACLOFEN (10 MG) 10 MG TABLET GT SCH ×3 (05:46→21:10)
[2017-11-02 08:00] VITALS: BP 113/67
[2017-11-02] MEDS: POLYVINYL ALCOHOL 15 ML BOTTLE EACHEYE SCH ×4 (09:50→21:10)
[2017-11-02] MEDS: ACIDOPHILUS/BULGARICUS 1 EACH TAB.CHEW GT SCH (09:51)
[2017-11-02] MEDS: AMIODARONE HCL 200 MG TABLET GT SCH (09:51)
[2017-11-02] MEDS: POLYETHYLENE GLYCOL 3350 17 GM POWD.PACK GT SCH (09:51)
[2017-11-02] MEDS: OMEPRAZOLE 10 MG CAPSULE.DR GT SCH (09:52)
[2017-11-02] MEDS: POTASSIUM CHLORIDE 20 MEQ/15 ML ML GT SCH (09:52)
[2017-11-02] MEDS: HEPARIN SODIUM, PORCINE 5000 UNITS/1 ML VIAL SQ SCH ×2 (09:53→21:11)
[2017-11-02] MEDS: HYDROGEN PEROXIDE 480 ML BOTTLE TP SCH ×2 (09:53→21:11)
[2017-11-02] MEDS: ZINC OXIDE 30 GM TUBE TP SCH ×2 (09:53→21:11)
[2017-11-02] MEDS: FINASTERIDE (5 MG) 5 MG TABLET GT SCH (20:00)
[2017-11-02] MEDS: ASCORBIC ACID 500 MG TABLET GT SCH (21:10)
[2017-11-02] MEDS: DOCUSATE SODIUM LIQ 100 MG/10 ML UDC GT SCH (21:10)
[2017-11-02] MEDS: MULTIVIT, IRON, MIN NO. 8, FA 1 TAB GT SCH (21:10)
[2017-11-02] MEDS: SENNOSIDES 8.6 MG TABLET GT SCH (21:11)
[2017-11-03] VITALS: BP 116/75
[2017-11-03] MEDS: RENAL NOVASOURCE 1,000 ML BOTTLE GT PRN ×2 (00:28→21:09)
[2017-11-03] MEDS: IPRATROPIUM NEB FS 0.5 MG/2.5 ML AMPUL.NEB NEB SCH ×4 (02:17→19:28)
[2017-11-03] MEDS: ALBUTEROL FS 2.5 MG/3 ML VIAL.NEB NEB SCH ×4 (02:18→19:28)
[2017-11-03] MEDS: BACLOFEN (10 MG) 10 MG TABLET GT SCH ×3 (05:49→21:06)
[2017-11-03] MEDS: LEVOTHYROXINE SODIUM 125 MCG TABLET GT SCH (05:49)
[2017-11-03] MEDS: GLYCOPYRROLATE 1 MG TABLET GT SCH ×4 (05:49→23:27)
[2017-11-03 08:30] VITALS: BP 116/70
[2017-11-03] MEDS: POLYVINYL ALCOHOL 15 ML BOTTLE EACHEYE SCH ×4 (09:17→21:06)
[2017-11-03] MEDS: ACIDOPHILUS/BULGARICUS 1 EACH TAB.CHEW GT SCH (09:18)
[2017-11-03] MEDS: HEPARIN SODIUM, PORCINE 5000 UNITS/1 ML VIAL SQ SCH ×2 (09:18→21:07)
[2017-11-03] MEDS: OMEPRAZOLE 10 MG CAPSULE.DR GT SCH (09:18)
[2017-11-03] MEDS: HYDROGEN PEROXIDE 480 ML BOTTLE TP SCH ×2 (09:18→21:07)
[2017-11-03] MEDS: POTASSIUM CHLORIDE 20 MEQ/15 ML ML GT SCH (09:18)
[2017-11-03] MEDS: AMIODARONE HCL 200 MG TABLET GT SCH (09:18)
[2017-11-03] MEDS: POLYETHYLENE GLYCOL 3350 17 GM POWD.PACK GT SCH (09:18)
[2017-11-03] MEDS: ZINC OXIDE 30 GM TUBE TP SCH ×2 (09:19→21:07)
--- NOTE | 2017-11-03 19:30 | NUR ---
Resident's requesting patient to have hair cut every other month. Endorsed to notify social service.
[2017-11-03 20:38] VITALS: BP 103/50
[2017-11-03] MEDS: FINASTERIDE (5 MG) 5 MG TABLET GT SCH (21:00)
[2017-11-03] MEDS: DOCUSATE SODIUM LIQ 100 MG/10 ML UDC GT SCH (21:06)
[2017-11-03] MEDS: ASCORBIC ACID 500 MG TABLET GT SCH (21:06)
[2017-11-03] MEDS: MULTIVIT, IRON, MIN NO. 8, FA 1 TAB GT SCH (21:06)
[2017-11-03] MEDS: SENNOSIDES 8.6 MG TABLET GT SCH (21:07)
[2017-11-04] MEDS: ALBUTEROL FS 2.5 MG/3 ML VIAL.NEB NEB SCH ×4 (01:23→19:46)
[2017-11-04] MEDS: IPRATROPIUM NEB FS 0.5 MG/2.5 ML AMPUL.NEB NEB SCH ×4 (01:23→19:46)
[2017-11-04] MEDS: GLYCOPYRROLATE 1 MG TABLET GT SCH ×3 (05:47→17:31)
[2017-11-04] MEDS: BACLOFEN (10 MG) 10 MG TABLET GT SCH ×3 (05:47→21:15)
[2017-11-04] MEDS: LEVOTHYROXINE SODIUM 125 MCG TABLET GT SCH (05:47)
[2017-11-04 08:02] VITALS: BP 105/66
[2017-11-04] MEDS: POLYVINYL ALCOHOL 15 ML BOTTLE EACHEYE SCH ×4 (09:01→21:15)
[2017-11-04] MEDS: AMIODARONE HCL 200 MG TABLET GT SCH (09:02)
[2017-11-04] MEDS: ACIDOPHILUS/BULGARICUS 1 EACH TAB.CHEW GT SCH (09:02)
[2017-11-04] MEDS: POLYETHYLENE GLYCOL 3350 17 GM POWD.PACK GT SCH (09:02)
[2017-11-04] MEDS: OMEPRAZOLE 10 MG CAPSULE.DR GT SCH (09:02)
[2017-11-04] MEDS: POTASSIUM CHLORIDE 20 MEQ/15 ML ML GT SCH (09:02)
[2017-11-04] MEDS: HYDROGEN PEROXIDE 480 ML BOTTLE TP SCH ×2 (09:03→21:15)
[2017-11-04] MEDS: HEPARIN SODIUM, PORCINE 5000 UNITS/1 ML VIAL SQ SCH ×2 (09:03→21:16)
[2017-11-04] MEDS: ZINC OXIDE 30 GM TUBE TP SCH ×2 (09:03→21:15)
[2017-11-04 19:19] VITALS: BP 111/73
[2017-11-04] MEDS: FINASTERIDE (5 MG) 5 MG TABLET GT SCH (21:00)
[2017-11-04] MEDS: DOCUSATE SODIUM LIQ 100 MG/10 ML UDC GT SCH (21:15)
[2017-11-04] MEDS: SENNOSIDES 8.6 MG TABLET GT SCH (21:15)
[2017-11-04] MEDS: MULTIVIT, IRON, MIN NO. 8, FA 1 TAB GT SCH (21:15)
[2017-11-04] MEDS: ASCORBIC ACID 500 MG TABLET GT SCH (21:15)
[2017-11-04] MEDS: RENAL NOVASOURCE 1,000 ML BOTTLE GT PRN (21:16)
[2017-11-05] MEDS: GLYCOPYRROLATE 1 MG TABLET GT SCH ×4 (00:09→17:35)
[2017-11-05] MEDS: IPRATROPIUM NEB FS 0.5 MG/2.5 ML AMPUL.NEB NEB SCH ×4 (01:41→19:30)
[2017-11-05] MEDS: ALBUTEROL FS 2.5 MG/3 ML VIAL.NEB NEB SCH ×4 (01:41→19:30)
[2017-11-05] MEDS: BACLOFEN (10 MG) 10 MG TABLET GT SCH ×3 (05:36→21:13)
[2017-11-05] MEDS: LEVOTHYROXINE SODIUM 125 MCG TABLET GT SCH (05:36)
[2017-11-05 08:10] VITALS: BP 124/73
[2017-11-05] MEDS: HYDROGEN PEROXIDE 480 ML BOTTLE TP SCH ×2 (09:00→21:14)
[2017-11-05] MEDS: ZINC OXIDE 30 GM TUBE TP SCH ×2 (09:00→21:14)
[2017-11-05] MEDS: POLYVINYL ALCOHOL 15 ML BOTTLE EACHEYE SCH ×4 (09:59→21:12)
[2017-11-05] MEDS: OMEPRAZOLE 10 MG CAPSULE.DR GT SCH (09:59)
[2017-11-05] MEDS: POLYETHYLENE GLYCOL 3350 17 GM POWD.PACK GT SCH (09:59)
[2017-11-05] MEDS: ACIDOPHILUS/BULGARICUS 1 EACH TAB.CHEW GT SCH (09:59)
[2017-11-05] MEDS: AMIODARONE HCL 200 MG TABLET GT SCH (09:59)
[2017-11-05] MEDS: POTASSIUM CHLORIDE 20 MEQ/15 ML ML GT SCH (09:59)
[2017-11-05] MEDS: HEPARIN SODIUM, PORCINE 5000 UNITS/1 ML VIAL SQ SCH ×2 (10:00→21:21)
[2017-11-05] MEDS: FINASTERIDE (5 MG) 5 MG TABLET GT SCH (20:00)
[2017-11-05] MEDS: SENNOSIDES 8.6 MG TABLET GT SCH (21:14)
[2017-11-05] MEDS: ASCORBIC ACID 500 MG TABLET GT SCH (21:14)
[2017-11-05] MEDS: MULTIVIT, IRON, MIN NO. 8, FA 1 TAB GT SCH (21:14)
[2017-11-05] MEDS: DOCUSATE SODIUM LIQ 100 MG/10 ML UDC GT SCH (21:18)
[2017-11-05 22:51] VITALS: BP 129/68
[2017-11-06] MEDS: GLYCOPYRROLATE 1 MG TABLET GT SCH ×5 (00:38→23:24)
[2017-11-06] MEDS: IPRATROPIUM NEB FS 0.5 MG/2.5 ML AMPUL.NEB NEB SCH ×4 (01:30→19:58)
[2017-11-06] MEDS: ALBUTEROL FS 2.5 MG/3 ML VIAL.NEB NEB SCH ×4 (01:30→19:58)
[2017-11-06] MEDS: LEVOTHYROXINE SODIUM 125 MCG TABLET GT SCH (05:40)
[2017-11-06] MEDS: BACLOFEN (10 MG) 10 MG TABLET GT SCH ×3 (05:40→20:26)
[2017-11-06] MEDS: RENAL NOVASOURCE 1,000 ML BOTTLE GT PRN (05:59)
[2017-11-06 08:20] VITALS: BP 114/70
[2017-11-06] MEDS: POLYVINYL ALCOHOL 15 ML BOTTLE EACHEYE SCH ×4 (09:11→20:26)
[2017-11-06] MEDS: HYDROGEN PEROXIDE 480 ML BOTTLE TP SCH ×2 (09:12→20:27)
[2017-11-06] MEDS: AMIODARONE HCL 200 MG TABLET GT SCH (09:12)
[2017-11-06] MEDS: ZINC OXIDE 30 GM TUBE TP SCH ×2 (09:12→20:27)
[2017-11-06] MEDS: POLYETHYLENE GLYCOL 3350 17 GM POWD.PACK GT SCH (09:12)
[2017-11-06] MEDS: OMEPRAZOLE 10 MG CAPSULE.DR GT SCH (09:12)
[2017-11-06] MEDS: HEPARIN SODIUM, PORCINE 5000 UNITS/1 ML VIAL SQ SCH ×2 (09:12→20:27)
[2017-11-06] MEDS: ACIDOPHILUS/BULGARICUS 1 EACH TAB.CHEW GT SCH (09:12)
[2017-11-06] MEDS: POTASSIUM CHLORIDE 20 MEQ/15 ML ML GT SCH (09:12)
[2017-11-06] MEDS: MULTIVIT, IRON, MIN NO. 8, FA 1 TAB GT SCH (20:26)
[2017-11-06] MEDS: FINASTERIDE (5 MG) 5 MG TABLET GT SCH (20:26)
[2017-11-06] MEDS: DOCUSATE SODIUM LIQ 100 MG/10 ML UDC GT SCH (20:26)
[2017-11-06] MEDS: ASCORBIC ACID 500 MG TABLET GT SCH (20:27)
[2017-11-06] MEDS: SENNOSIDES 8.6 MG TABLET GT SCH (21:48)
[2017-11-07] MEDS: ALBUTEROL FS 2.5 MG/3 ML VIAL.NEB NEB SCH ×4 (01:53→19:51)
[2017-11-07] MEDS: IPRATROPIUM NEB FS 0.5 MG/2.5 ML AMPUL.NEB NEB SCH ×4 (01:53→19:51)
[2017-11-07] MEDS: BACLOFEN (10 MG) 10 MG TABLET GT SCH ×3 (05:26→20:28)
[2017-11-07] MEDS: GLYCOPYRROLATE 1 MG TABLET GT SCH ×4 (05:26→23:37)
[2017-11-07] MEDS: LEVOTHYROXINE SODIUM 125 MCG TABLET GT SCH (05:26)
[2017-11-07 07:57] VITALS: BP 118/78
[2017-11-07 07:58] VITALS: BP 129/63
[2017-11-07] MEDS: POLYVINYL ALCOHOL 15 ML BOTTLE EACHEYE SCH ×4 (08:58→20:28)
[2017-11-07] MEDS: AMIODARONE HCL 200 MG TABLET GT SCH (08:58)
[2017-11-07] MEDS: OMEPRAZOLE 10 MG CAPSULE.DR GT SCH (09:00)
[2017-11-07] MEDS: POLYETHYLENE GLYCOL 3350 17 GM POWD.PACK GT SCH (09:00)
[2017-11-07] MEDS: POTASSIUM CHLORIDE 20 MEQ/15 ML ML GT SCH (09:00)
[2017-11-07] MEDS: ACIDOPHILUS/BULGARICUS 1 EACH TAB.CHEW GT SCH (09:00)
[2017-11-07] MEDS: HYDROGEN PEROXIDE 480 ML BOTTLE TP SCH ×2 (09:01→20:29)
[2017-11-07] MEDS: ZINC OXIDE 30 GM TUBE TP SCH ×2 (09:01→20:29)
[2017-11-07] MEDS: HEPARIN SODIUM, PORCINE 5000 UNITS/1 ML VIAL SQ SCH ×2 (09:01→20:28)
[2017-11-07] MEDS: RENAL NOVASOURCE 1,000 ML BOTTLE GT PRN (12:42)
[2017-11-07] MEDS: ASCORBIC ACID 500 MG TABLET GT SCH (20:28)
[2017-11-07] MEDS: MULTIVIT, IRON, MIN NO. 8, FA 1 TAB GT SCH (20:28)
[2017-11-07] MEDS: FINASTERIDE (5 MG) 5 MG TABLET GT SCH (20:28)
[2017-11-07] MEDS: DOCUSATE SODIUM LIQ 100 MG/10 ML UDC GT SCH (20:28)
[2017-11-07 20:30] VITALS: BP 118/68
[2017-11-07] MEDS: SENNOSIDES 8.6 MG TABLET GT SCH (22:02)
[2017-11-08] MEDS: IPRATROPIUM NEB FS 0.5 MG/2.5 ML AMPUL.NEB NEB SCH ×4 (00:46→20:55)
[2017-11-08] MEDS: ALBUTEROL FS 2.5 MG/3 ML VIAL.NEB NEB SCH ×4 (00:46→20:55)
[2017-11-08] MEDS: LEVOTHYROXINE SODIUM 125 MCG TABLET GT SCH (05:17)
[2017-11-08] MEDS: GLYCOPYRROLATE 1 MG TABLET GT SCH ×3 (05:17→17:27)
[2017-11-08] MEDS: BACLOFEN (10 MG) 10 MG TABLET GT SCH ×3 (05:17→21:41)
[2017-11-08 07:42] VITALS: BP 127/73
[2017-11-08] MEDS: POLYVINYL ALCOHOL 15 ML BOTTLE EACHEYE SCH ×4 (09:28→21:41)
[2017-11-08] MEDS: POTASSIUM CHLORIDE 20 MEQ/15 ML ML GT SCH (09:28)
[2017-11-08] MEDS: AMIODARONE HCL 200 MG TABLET GT SCH (09:28)
[2017-11-08] MEDS: POLYETHYLENE GLYCOL 3350 17 GM POWD.PACK GT SCH (09:28)
[2017-11-08] MEDS: ACIDOPHILUS/BULGARICUS 1 EACH TAB.CHEW GT SCH (09:28)
[2017-11-08] MEDS: OMEPRAZOLE 10 MG CAPSULE.DR GT SCH (09:28)
[2017-11-08] MEDS: ZINC OXIDE 30 GM TUBE TP SCH ×2 (09:29→21:41)
[2017-11-08] MEDS: HYDROGEN PEROXIDE 480 ML BOTTLE TP SCH ×2 (09:29→21:41)
[2017-11-08] MEDS: HEPARIN SODIUM, PORCINE 5000 UNITS/1 ML VIAL SQ SCH ×2 (09:29→21:41)
--- NOTE | 2017-11-08 12:39 | NUR ---
Informed that hairdresser was coming Tuesday November 14, 2017 and she stated that she would like a haircut for the resident (using blade #2, which the social services manager will inform the hairdresser). SW informed her that the hairdresser visits every 2-3 months and she acknowledged this. She reported that she will probably not be able to be here for his haircut as she is working.
[2017-11-08] MEDS: FINASTERIDE (5 MG) 5 MG TABLET GT SCH (20:00)
[2017-11-08 20:14] VITALS: BP 100/57
[2017-11-08] MEDS: MULTIVIT, IRON, MIN NO. 8, FA 1 TAB GT SCH (21:41)
[2017-11-08] MEDS: DOCUSATE SODIUM LIQ 100 MG/10 ML UDC GT SCH (21:41)
[2017-11-08] MEDS: ASCORBIC ACID 500 MG TABLET GT SCH (21:41)
[2017-11-08] MEDS: SENNOSIDES 8.6 MG TABLET GT SCH (21:42)
[2017-11-09] MEDS: IPRATROPIUM NEB FS 0.5 MG/2.5 ML AMPUL.NEB NEB SCH ×4 (02:39→20:21)
[2017-11-09] MEDS: ALBUTEROL FS 2.5 MG/3 ML VIAL.NEB NEB SCH ×4 (02:39→20:21)
[2017-11-09] MEDS: LEVOTHYROXINE SODIUM 125 MCG TABLET GT SCH (05:45)
[2017-11-09] MEDS: BACLOFEN (10 MG) 10 MG TABLET GT SCH ×3 (05:45→20:46)
[2017-11-09] MEDS: GLYCOPYRROLATE 1 MG TABLET GT SCH ×4 (05:45→17:29)
[2017-11-09 08:08] VITALS: BP 98/62
[2017-11-09] MEDS: POLYVINYL ALCOHOL 15 ML BOTTLE EACHEYE SCH ×4 (09:19→20:44)
[2017-11-09] MEDS: AMIODARONE HCL 200 MG TABLET GT SCH (09:19)
[2017-11-09] MEDS: POLYETHYLENE GLYCOL 3350 17 GM POWD.PACK GT SCH (09:20)
[2017-11-09] MEDS: POTASSIUM CHLORIDE 20 MEQ/15 ML ML GT SCH (09:20)
[2017-11-09] MEDS: ACIDOPHILUS/BULGARICUS 1 EACH TAB.CHEW GT SCH (09:20)
[2017-11-09] MEDS: OMEPRAZOLE 10 MG CAPSULE.DR GT SCH (09:20)
[2017-11-09] MEDS: ZINC OXIDE 30 GM TUBE TP SCH ×2 (09:31→20:52)
[2017-11-09] MEDS: HYDROGEN PEROXIDE 480 ML BOTTLE TP SCH ×2 (09:31→20:52)
[2017-11-09] MEDS: HEPARIN SODIUM, PORCINE 5000 UNITS/1 ML VIAL SQ SCH ×2 (09:31→20:51)
[2017-11-09 20:30] VITALS: BP 115/60
[2017-11-09] MEDS: FINASTERIDE (5 MG) 5 MG TABLET GT SCH (20:44)
[2017-11-09] MEDS: DOCUSATE SODIUM LIQ 100 MG/10 ML UDC GT SCH (20:46)
[2017-11-09] MEDS: MULTIVIT, IRON, MIN NO. 8, FA 1 TAB GT SCH (20:46)
[2017-11-09] MEDS: ASCORBIC ACID 500 MG TABLET GT SCH (20:49)
[2017-11-09] MEDS: RENAL NOVASOURCE 1,000 ML BOTTLE GT PRN (20:59)
[2017-11-09] MEDS: SENNOSIDES 8.6 MG TABLET GT SCH (22:42)
[2017-11-10] MEDS: GLYCOPYRROLATE 1 MG TABLET GT SCH ×4 (00:05→17:25)
[2017-11-10] MEDS: IPRATROPIUM NEB FS 0.5 MG/2.5 ML AMPUL.NEB NEB SCH ×4 (01:13→19:38)
[2017-11-10] MEDS: ALBUTEROL FS 2.5 MG/3 ML VIAL.NEB NEB SCH ×4 (01:13→19:38)
[2017-11-10] MEDS: BACLOFEN (10 MG) 10 MG TABLET GT SCH ×3 (05:31→21:00)
[2017-11-10] MEDS: LEVOTHYROXINE SODIUM 125 MCG TABLET GT SCH (05:31)
[2017-11-10] MEDS: POLYVINYL ALCOHOL 15 ML BOTTLE EACHEYE SCH ×4 (09:20→21:00)
[2017-11-10] MEDS: AMIODARONE HCL 200 MG TABLET GT SCH (09:23)
[2017-11-10] MEDS: POLYETHYLENE GLYCOL 3350 17 GM POWD.PACK GT SCH (09:24)
[2017-11-10] MEDS: ACIDOPHILUS/BULGARICUS 1 EACH TAB.CHEW GT SCH (09:24)
[2017-11-10] MEDS: POTASSIUM CHLORIDE 20 MEQ/15 ML ML GT SCH (09:25)
[2017-11-10] MEDS: OMEPRAZOLE 10 MG CAPSULE.DR GT SCH (09:25)
[2017-11-10] MEDS: HEPARIN SODIUM, PORCINE 5000 UNITS/1 ML VIAL SQ SCH ×2 (09:26→21:00)
[2017-11-10] MEDS: HYDROGEN PEROXIDE 480 ML BOTTLE TP SCH ×2 (09:26→21:00)
[2017-11-10] MEDS: ZINC OXIDE 30 GM TUBE TP SCH ×2 (09:26→21:00)
[2017-11-10 19:21] VITALS: BP 118/55
[2017-11-10] MEDS: FINASTERIDE (5 MG) 5 MG TABLET GT SCH (20:00)
[2017-11-10] MEDS: DOCUSATE SODIUM LIQ 100 MG/10 ML UDC GT SCH (21:00)
[2017-11-10] MEDS: MULTIVIT, IRON, MIN NO. 8, FA 1 TAB GT SCH (21:00)
[2017-11-10] MEDS: ASCORBIC ACID 500 MG TABLET GT SCH (21:00)
[2017-11-10] MEDS: SENNOSIDES 8.6 MG TABLET GT SCH (22:00)
[2017-11-11] MEDS: GLYCOPYRROLATE 1 MG TABLET GT SCH ×5 (00:15→23:51)
[2017-11-11] MEDS: IPRATROPIUM NEB FS 0.5 MG/2.5 ML AMPUL.NEB NEB SCH ×4 (00:52→19:26)
[2017-11-11] MEDS: ALBUTEROL FS 2.5 MG/3 ML VIAL.NEB NEB SCH ×4 (00:52→19:26)
[2017-11-11] MEDS: BACLOFEN (10 MG) 10 MG TABLET GT SCH ×3 (05:26→21:54)
[2017-11-11] MEDS: RENAL NOVASOURCE 1,000 ML BOTTLE GT PRN (05:26)
[2017-11-11] MEDS: LEVOTHYROXINE SODIUM 125 MCG TABLET GT SCH (05:26)
[2017-11-11 07:51] VITALS: BP 128/62
[2017-11-11] MEDS: POTASSIUM CHLORIDE 20 MEQ/15 ML ML GT SCH (09:44)
[2017-11-11] MEDS: OMEPRAZOLE 10 MG CAPSULE.DR GT SCH (09:44)
[2017-11-11] MEDS: ACIDOPHILUS/BULGARICUS 1 EACH TAB.CHEW GT SCH (09:44)
[2017-11-11] MEDS: HEPARIN SODIUM, PORCINE 5000 UNITS/1 ML VIAL SQ SCH ×2 (09:44→21:54)
[2017-11-11] MEDS: POLYETHYLENE GLYCOL 3350 17 GM POWD.PACK GT SCH (09:44)
[2017-11-11] MEDS: AMIODARONE HCL 200 MG TABLET GT SCH (09:44)
[2017-11-11] MEDS: POLYVINYL ALCOHOL 15 ML BOTTLE EACHEYE SCH ×4 (09:44→21:54)
[2017-11-11] MEDS: HYDROGEN PEROXIDE 480 ML BOTTLE TP SCH ×2 (09:45→21:54)
[2017-11-11] MEDS: ZINC OXIDE 30 GM TUBE TP SCH ×2 (09:45→21:54)
[2017-11-11] MEDS: FINASTERIDE (5 MG) 5 MG TABLET GT SCH (20:00)
[2017-11-11 20:08] VITALS: BP 100/61
[2017-11-11] MEDS: MULTIVIT, IRON, MIN NO. 8, FA 1 TAB GT SCH (21:54)
[2017-11-11] MEDS: SENNOSIDES 8.6 MG TABLET GT SCH (21:54)
[2017-11-11] MEDS: ASCORBIC ACID 500 MG TABLET GT SCH (21:54)
[2017-11-11] MEDS: DOCUSATE SODIUM LIQ 100 MG/10 ML UDC GT SCH (21:54)
[2017-11-12] MEDS: IPRATROPIUM NEB FS 0.5 MG/2.5 ML AMPUL.NEB NEB SCH ×4 (00:43→19:30)
[2017-11-12] MEDS: ALBUTEROL FS 2.5 MG/3 ML VIAL.NEB NEB SCH ×4 (00:43→19:30)
[2017-11-12] MEDS: GLYCOPYRROLATE 1 MG TABLET GT SCH ×3 (05:39→17:02)
[2017-11-12] MEDS: LEVOTHYROXINE SODIUM 125 MCG TABLET GT SCH (05:39)
[2017-11-12] MEDS: BACLOFEN (10 MG) 10 MG TABLET GT SCH ×3 (05:39→21:51)
[2017-11-12] MEDS: RENAL NOVASOURCE 1,000 ML BOTTLE GT PRN (05:39)
[2017-11-12 07:44] VITALS: BP 107/61
[2017-11-12] MEDS: POLYETHYLENE GLYCOL 3350 17 GM POWD.PACK GT SCH (09:13)
[2017-11-12] MEDS: ACIDOPHILUS/BULGARICUS 1 EACH TAB.CHEW GT SCH (09:13)
[2017-11-12] MEDS: OMEPRAZOLE 10 MG CAPSULE.DR GT SCH (09:13)
[2017-11-12] MEDS: POLYVINYL ALCOHOL 15 ML BOTTLE EACHEYE SCH ×4 (09:13→21:51)
[2017-11-12] MEDS: AMIODARONE HCL 200 MG TABLET GT SCH (09:13)
[2017-11-12] MEDS: POTASSIUM CHLORIDE 20 MEQ/15 ML ML GT SCH (09:13)
[2017-11-12] MEDS: ZINC OXIDE 30 GM TUBE TP SCH ×2 (09:19→21:51)
[2017-11-12] MEDS: HYDROGEN PEROXIDE 480 ML BOTTLE TP SCH ×2 (09:19→21:51)
[2017-11-12] MEDS: HEPARIN SODIUM, PORCINE 5000 UNITS/1 ML VIAL SQ SCH ×2 (09:19→21:51)
--- NOTE | 2017-11-12 13:38 | NUR ---
Informed that resident is due for a dental exam/cleaning and stated dentist Dr. Sanchez will be coming on November 26, 2017. She stated that she would like for resident to be seen and SW included him on the list of resident's to be seen. She was also asking if it's a good idea to cancel the resident's [facility] Insurance and IGOR directed her to contact financial counselor Tigist at [phone]. She stated she would.
[2017-11-12 19:57] VITALS: BP 100/68
[2017-11-12] MEDS: FINASTERIDE (5 MG) 5 MG TABLET GT SCH (20:00)
[2017-11-12] MEDS: ASCORBIC ACID 500 MG TABLET GT SCH (21:51)
[2017-11-12] MEDS: DOCUSATE SODIUM LIQ 100 MG/10 ML UDC GT SCH (21:51)
[2017-11-12] MEDS: MULTIVIT, IRON, MIN NO. 8, FA 1 TAB GT SCH (21:51)
[2017-11-12] MEDS: SENNOSIDES 8.6 MG TABLET GT SCH (21:51)
[2017-11-13] MEDS: GLYCOPYRROLATE 1 MG TABLET GT SCH ×5 (00:11→23:16)
[2017-11-13] MEDS: ALBUTEROL FS 2.5 MG/3 ML VIAL.NEB NEB SCH ×4 (01:28→19:51)
[2017-11-13] MEDS: IPRATROPIUM NEB FS 0.5 MG/2.5 ML AMPUL.NEB NEB SCH ×4 (01:28→19:51)
[2017-11-13] MEDS: BACLOFEN (10 MG) 10 MG TABLET GT SCH ×3 (05:45→20:12)
[2017-11-13] MEDS: LEVOTHYROXINE SODIUM 125 MCG TABLET GT SCH (05:45)
[2017-11-13 07:56] VITALS: BP 114/69
[2017-11-13] MEDS: POLYETHYLENE GLYCOL 3350 17 GM POWD.PACK GT SCH (08:30)
[2017-11-13] MEDS: POLYVINYL ALCOHOL 15 ML BOTTLE EACHEYE SCH ×4 (08:30→20:12)
[2017-11-13] MEDS: OMEPRAZOLE 10 MG CAPSULE.DR GT SCH (08:30)
[2017-11-13] MEDS: ACIDOPHILUS/BULGARICUS 1 EACH TAB.CHEW GT SCH (08:30)
[2017-11-13] MEDS: POTASSIUM CHLORIDE 20 MEQ/15 ML ML GT SCH (08:30)
[2017-11-13] MEDS: AMIODARONE HCL 200 MG TABLET GT SCH (08:30)
[2017-11-13] MEDS: HEPARIN SODIUM, PORCINE 5000 UNITS/1 ML VIAL SQ SCH ×2 (08:31→20:13)
[2017-11-13] MEDS: ZINC OXIDE 30 GM TUBE TP SCH ×2 (09:00→20:13)
[2017-11-13] MEDS: HYDROGEN PEROXIDE 480 ML BOTTLE TP SCH ×2 (09:00→20:13)
--- NOTE | 2017-11-13 11:07 | NUR ---
Reminded catarinadrchristiano Gómez that resident will be getting his haircut tomorrow (trim with blade #2).
[2017-11-13] MEDS: FINASTERIDE (5 MG) 5 MG TABLET GT SCH (20:12)
[2017-11-13] MEDS: ASCORBIC ACID 500 MG TABLET GT SCH (20:12)
[2017-11-13] MEDS: MULTIVIT, IRON, MIN NO. 8, FA 1 TAB GT SCH (20:12)
[2017-11-13] MEDS: DOCUSATE SODIUM LIQ 100 MG/10 ML UDC GT SCH (20:12)
[2017-11-13 20:43] VITALS: BP 118/73
[2017-11-13] MEDS: SENNOSIDES 8.6 MG TABLET GT SCH (21:51)
[2017-11-14] MEDS: IPRATROPIUM NEB FS 0.5 MG/2.5 ML AMPUL.NEB NEB SCH ×4 (02:01→20:07)
[2017-11-14] MEDS: ALBUTEROL FS 2.5 MG/3 ML VIAL.NEB NEB SCH ×4 (02:02→20:06)
[2017-11-14] MEDS: BACLOFEN (10 MG) 10 MG TABLET GT SCH ×3 (05:08→20:20)
[2017-11-14] MEDS: LEVOTHYROXINE SODIUM 125 MCG TABLET GT SCH (05:08)
[2017-11-14] MEDS: GLYCOPYRROLATE 1 MG TABLET GT SCH ×4 (05:08→23:26)
[2017-11-14 08:02] VITALS: BP 123/82
[2017-11-14] MEDS: POTASSIUM CHLORIDE 20 MEQ/15 ML ML GT SCH (09:13)
[2017-11-14] MEDS: ACIDOPHILUS/BULGARICUS 1 EACH TAB.CHEW GT SCH (09:13)
[2017-11-14] MEDS: OMEPRAZOLE 10 MG CAPSULE.DR GT SCH (09:13)
[2017-11-14] MEDS: POLYETHYLENE GLYCOL 3350 17 GM POWD.PACK GT SCH (09:13)
[2017-11-14] MEDS: HYDROGEN PEROXIDE 480 ML BOTTLE TP SCH ×2 (09:15→20:21)
[2017-11-14] MEDS: ZINC OXIDE 30 GM TUBE TP SCH ×2 (09:15→20:22)
[2017-11-14] MEDS: HEPARIN SODIUM, PORCINE 5000 UNITS/1 ML VIAL SQ SCH ×2 (09:15→20:21)
[2017-11-14] MEDS: POLYVINYL ALCOHOL 15 ML BOTTLE EACHEYE SCH ×4 (09:21→20:20)
[2017-11-14] MEDS: AMIODARONE HCL 200 MG TABLET GT SCH (09:21)
--- NOTE | 2017-11-14 14:22 | NUR ---
WOUND CARE CONSULT: PT PRESENTS WITH RED EXCORIATION TO BUTTOCKS. PT INCONTINENT OF STOOL. RECOMMENDATIONS MADE FOR SKIN CARE AND PROTECTION: KEEP SKIN CLEAN AND DRY AND APPLY LOTRIMIN, FOLLOW WITH ZINC OXIDE AND COVER WITH MEPILEX. DISCUSSED WITH NURSING STAFF. WILL SEE PRN. IN AGREEMENT WITH PLAN OF CARE. ALL SKIN PROTECTION MEASURES IN PLACE INCLUDING FIRST STEP MATTRESS.
--- NOTE | 2017-11-14 16:30 | NUR ---
Wound nurse saw resident's excoriated buttocks with new treatment recommendations. Left a message to Mrs. Bradley regarding new treatment.
--- NOTE | 2017-11-14 17:59 | NUR ---
Resident's came to visit and showed the photo of resident's buttocks taken yesterday, she stated it looks better the other night when she saw it. Informed her that wound nurse have recommended to Lotrimin to add to the treatment order followed with zinc oxide and Mepilex, then reevaluate.
[2017-11-14] MEDS: RENAL NOVASOURCE 1,000 ML BOTTLE GT PRN (18:26)
[2017-11-14 20:03] VITALS: BP 137/77
[2017-11-14] MEDS: DOCUSATE SODIUM LIQ 100 MG/10 ML UDC GT SCH (20:20)
[2017-11-14] MEDS: ASCORBIC ACID 500 MG TABLET GT SCH (20:20)
[2017-11-14] MEDS: FINASTERIDE (5 MG) 5 MG TABLET GT SCH (20:20)
[2017-11-14] MEDS: MULTIVIT, IRON, MIN NO. 8, FA 1 TAB GT SCH (20:20)
[2017-11-14] MEDS: CLOTRIMAZOLE 1% 15 GM TUBE TP SCH (20:21)
[2017-11-14] MEDS: SENNOSIDES 8.6 MG TABLET GT SCH (21:49)
[2017-11-15] MEDS: ALBUTEROL FS 2.5 MG/3 ML VIAL.NEB NEB SCH ×4 (01:57→20:18)
[2017-11-15] MEDS: IPRATROPIUM NEB FS 0.5 MG/2.5 ML AMPUL.NEB NEB SCH ×4 (01:57→20:18)
[2017-11-15] MEDS: GLYCOPYRROLATE 1 MG TABLET GT SCH ×3 (05:14→18:46)
[2017-11-15] MEDS: LEVOTHYROXINE SODIUM 125 MCG TABLET GT SCH (05:14)
[2017-11-15] MEDS: BACLOFEN (10 MG) 10 MG TABLET GT SCH ×3 (05:14→20:43)
[2017-11-15 07:25] VITALS: BP 99/58
[2017-11-15 07:59] LABS: BASOPHILS # (AUTO) 0.1 /CMM (0.0-0.2); BASOPHILS % (AUTO) 0.6 % (0.0-2.0); EOSINOPHILS % (AUTO) 3.1 % (0.0-6.0); HEMATOCRIT 31 % (39-51); LYMPHOCYTES # (AUTO) 1.9 /CMM (0.8-4.8); LYMPHOCYTES % (AUTO) 13.2 % (20.0-44.0); MEAN CORPUSCULAR HEMOGLOBIN 23 PG (26.0-33.0); MEAN CORPUSCULAR HGB CONC 32 g/dl (31.0-36.0); MEAN CORPUSCULAR VOLUME 72 fL (80-96); MONOCYTES # (AUTO) 1.5 /CMM (0.1-1.30); MONOCYTES % (AUTO) 10.3 % (2.0-12.0); NEUTROPHILS # (AUTO) 10.4 /CMM (1.8-8.9); NEUTROPHILS % (AUTO) 72.8 % (43.0-81.0); PLATELET COUNT (AUTO) 317 /CMM (150-450); RDW COEFFICIENT OF VARIATION 18.9 (11.5-15.0); RED BLOOD CELL COUNT(AUTO) 4.35 MIL/uL (4.5-6.0); WHITE BLOOD COUNT (AUTO) 14.3 K/uL (4.3-11.0)
[2017-11-15] MEDS: ACIDOPHILUS/BULGARICUS 1 EACH TAB.CHEW GT SCH (08:44)
[2017-11-15] MEDS: AMIODARONE HCL 200 MG TABLET GT SCH (08:44)
[2017-11-15] MEDS: POLYVINYL ALCOHOL 15 ML BOTTLE EACHEYE SCH ×4 (08:44→20:43)
[2017-11-15] MEDS: POLYETHYLENE GLYCOL 3350 17 GM POWD.PACK GT SCH (08:44)
[2017-11-15] MEDS: OMEPRAZOLE 10 MG CAPSULE.DR GT SCH (08:45)
[2017-11-15] MEDS: POTASSIUM CHLORIDE 20 MEQ/15 ML ML GT SCH (08:45)
[2017-11-15] MEDS: HYDROGEN PEROXIDE 480 ML BOTTLE TP SCH ×2 (08:47→20:43)
[2017-11-15] MEDS: HEPARIN SODIUM, PORCINE 5000 UNITS/1 ML VIAL SQ SCH ×2 (08:47→20:43)
[2017-11-15] MEDS: CLOTRIMAZOLE 1% 15 GM TUBE TP SCH ×2 (08:47→20:43)
[2017-11-15] MEDS: ZINC OXIDE 30 GM TUBE TP SCH ×2 (08:47→20:44)
--- NOTE | 2017-11-15 09:48 | NUR ---
Per DEBBIE (Erica), hairdresser did not cut the resident's hair as it was already cut by WALE Younger.
[2017-11-15 09:58] LABS: BAND % (MANUAL) 2 % (0.0-5.0); EOSINOPHILS % (MANUAL) 4 % (0-4); LYMPHOCYTES % (MANUAL) 14 % (16-48); METAMYELOCYTES % 1 % (0-0); MONOCYTES % (MANUAL) 11 % (0-11.0); MYELOCYTES % 1 % (0-0); NEUTROPHILS % (MANUAL) 67 (42-76)
--- NOTE | 2017-11-15 13:58 | NUR ---
Resident's spoke to SW. She stated she was upset that the resident has a sore on his buttocks and does not like stepping out of the room and that the BOOKING SUPERVISOR's should pay for the resident's treatment. SW stated she can set up a meeting for her to speak to the CNO and subacute manager of care however, she stated that she works and will notify the social work associate when it is her day off. She also stated she would like to attend the next IDT meeting and IGOR informed her that next IDT meeting is on November 23, 2017. IGOR to remind the resident's when it is closer to the meeting. Charge nurse informed.
--- NOTE | 2017-11-15 15:51 | NUR ---
Seen by SHIP CEILER Vivian Posada. Relayed CBC results to her. No new order.
[2017-11-15] MEDS: RENAL NOVASOURCE 1,000 ML BOTTLE GT PRN (18:50)
[2017-11-15] MEDS: MULTIVIT, IRON, MIN NO. 8, FA 1 TAB GT SCH (20:43)
[2017-11-15] MEDS: FINASTERIDE (5 MG) 5 MG TABLET GT SCH (20:43)
[2017-11-15] MEDS: ASCORBIC ACID 500 MG TABLET GT SCH (20:43)
[2017-11-15] MEDS: DOCUSATE SODIUM LIQ 100 MG/10 ML UDC GT SCH (20:43)
[2017-11-15 20:53] VITALS: BP 110/58
[2017-11-15] MEDS: SENNOSIDES 8.6 MG TABLET GT SCH (21:53)
[2017-11-16] MEDS: GLYCOPYRROLATE 1 MG TABLET GT SCH ×5 (00:14→23:42)
[2017-11-16] MEDS: IPRATROPIUM NEB FS 0.5 MG/2.5 ML AMPUL.NEB NEB SCH ×4 (01:54→20:23)
[2017-11-16] MEDS: ALBUTEROL FS 2.5 MG/3 ML VIAL.NEB NEB SCH ×4 (01:54→20:23)
[2017-11-16] MEDS: BACLOFEN (10 MG) 10 MG TABLET GT SCH ×3 (05:00→21:08)
[2017-11-16] MEDS: LEVOTHYROXINE SODIUM 125 MCG TABLET GT SCH (06:24)
[2017-11-16 07:36] VITALS: BP 115/67
[2017-11-16] MEDS: POLYVINYL ALCOHOL 15 ML BOTTLE EACHEYE SCH ×4 (08:51→21:08)
[2017-11-16] MEDS: POLYETHYLENE GLYCOL 3350 17 GM POWD.PACK GT SCH (08:51)
[2017-11-16] MEDS: AMIODARONE HCL 200 MG TABLET GT SCH (08:51)
[2017-11-16] MEDS: ACIDOPHILUS/BULGARICUS 1 EACH TAB.CHEW GT SCH (08:51)
[2017-11-16] MEDS: POTASSIUM CHLORIDE 20 MEQ/15 ML ML GT SCH (08:52)
[2017-11-16] MEDS: HEPARIN SODIUM, PORCINE 5000 UNITS/1 ML VIAL SQ SCH ×2 (08:54→21:09)
[2017-11-16] MEDS: OMEPRAZOLE 10 MG CAPSULE.DR GT SCH (08:54)
[2017-11-16] MEDS: HYDROGEN PEROXIDE 480 ML BOTTLE TP SCH ×2 (08:54→21:09)
[2017-11-16] MEDS: ZINC OXIDE 30 GM TUBE TP SCH ×2 (08:55→21:09)
[2017-11-16] MEDS: CLOTRIMAZOLE 1% 15 GM TUBE TP SCH ×2 (08:55→21:09)
[2017-11-16] MEDS: RENAL NOVASOURCE 1,000 ML BOTTLE GT PRN (18:54)
[2017-11-16 19:49] VITALS: BP 106/63
[2017-11-16] MEDS: FINASTERIDE (5 MG) 5 MG TABLET GT SCH (20:00)
[2017-11-16] MEDS: DOCUSATE SODIUM LIQ 100 MG/10 ML UDC GT SCH (21:08)
[2017-11-16] MEDS: ASCORBIC ACID 500 MG TABLET GT SCH (21:08)
[2017-11-16] MEDS: MULTIVIT, IRON, MIN NO. 8, FA 1 TAB GT SCH (21:08)
[2017-11-16] MEDS: SENNOSIDES 8.6 MG TABLET GT SCH (21:09)
[2017-11-17] MEDS: ALBUTEROL FS 2.5 MG/3 ML VIAL.NEB NEB SCH ×4 (00:52→19:45)
[2017-11-17] MEDS: IPRATROPIUM NEB FS 0.5 MG/2.5 ML AMPUL.NEB NEB SCH ×4 (00:52→19:45)
[2017-11-17] MEDS: BACLOFEN (10 MG) 10 MG TABLET GT SCH ×3 (05:49→20:56)
[2017-11-17] MEDS: GLYCOPYRROLATE 1 MG TABLET GT SCH ×3 (05:49→17:49)
[2017-11-17] MEDS: LEVOTHYROXINE SODIUM 125 MCG TABLET GT SCH (05:49)
[2017-11-17 09:00] VITALS: BP 92/65
[2017-11-17] MEDS: POTASSIUM CHLORIDE 20 MEQ/15 ML ML GT SCH (09:00)
[2017-11-17] MEDS: AMIODARONE HCL 200 MG TABLET GT SCH (09:00)
[2017-11-17] MEDS: CLOTRIMAZOLE 1% 15 GM TUBE TP SCH ×2 (09:00→20:57)
[2017-11-17] MEDS: ZINC OXIDE 30 GM TUBE TP SCH ×2 (09:00→20:57)
[2017-11-17] MEDS: ACIDOPHILUS/BULGARICUS 1 EACH TAB.CHEW GT SCH (09:00)
[2017-11-17] MEDS: HEPARIN SODIUM, PORCINE 5000 UNITS/1 ML VIAL SQ SCH ×2 (09:00→20:57)
[2017-11-17] MEDS: OMEPRAZOLE 10 MG CAPSULE.DR GT SCH (09:00)
[2017-11-17] MEDS: POLYVINYL ALCOHOL 15 ML BOTTLE EACHEYE SCH ×4 (09:00→20:56)
[2017-11-17] MEDS: HYDROGEN PEROXIDE 480 ML BOTTLE TP SCH ×2 (09:00→20:57)
[2017-11-17] MEDS: POLYETHYLENE GLYCOL 3350 17 GM POWD.PACK GT SCH (09:00)
[2017-11-17] MEDS: ACETAMINOPHEN 650 MG/20 ML UDC- FOR SA PATIENTS ONLY GT PRN (10:59)
--- NOTE | 2017-11-17 12:00 | NUR ---
Patient noted with right cheek/facial area below orbital area with a moist area triangular in shape 2 cm by 1.5 cm. No erythema. RN maintenance supervisor notified. visiting and notified. Per to just please put vaseline oint. put vaseline ointment brought from self supply. Kept clean and comfortable.
[2017-11-17] MEDS: ERGOCALCIFEROL (VITAMIN D2) 8,000 UNIT/ML GT SCH (17:49)
[2017-11-17] MEDS: ASCORBIC ACID 500 MG TABLET GT SCH (20:56)
[2017-11-17] MEDS: MULTIVIT, IRON, MIN NO. 8, FA 1 TAB GT SCH (20:56)
[2017-11-17] MEDS: FINASTERIDE (5 MG) 5 MG TABLET GT SCH (20:56)
[2017-11-17] MEDS: DOCUSATE SODIUM LIQ 100 MG/10 ML UDC GT SCH (20:56)
[2017-11-17 21:04] VITALS: BP 107/53
[2017-11-17] MEDS: SENNOSIDES 8.6 MG TABLET GT SCH (21:35)
[2017-11-17] MEDS: RENAL NOVASOURCE 1,000 ML BOTTLE GT PRN (22:11)
[2017-11-18] MEDS: GLYCOPYRROLATE 1 MG TABLET GT SCH ×5 (00:52→23:32)
[2017-11-18] MEDS: ALBUTEROL FS 2.5 MG/3 ML VIAL.NEB NEB SCH ×4 (01:39→20:08)
[2017-11-18] MEDS: IPRATROPIUM NEB FS 0.5 MG/2.5 ML AMPUL.NEB NEB SCH ×4 (01:39→20:08)
[2017-11-18] MEDS: LEVOTHYROXINE SODIUM 125 MCG TABLET GT SCH (05:28)
[2017-11-18] MEDS: BACLOFEN (10 MG) 10 MG TABLET GT SCH ×3 (05:28→21:17)
--- NOTE | 2017-11-18 05:34 | NUR ---
NURSING: Redness still noted on patient's right upper facial area, no tx ordered at this time. No sign and symptom of pain observed when touched. Will closely monitor. Kept pt dry and comfortable.
[2017-11-18 07:59] VITALS: BP 94/56
[2017-11-18] MEDS: AMIODARONE HCL 200 MG TABLET GT SCH (09:00)
[2017-11-18] MEDS: ZINC OXIDE 30 GM TUBE TP SCH ×2 (09:00→21:18)
[2017-11-18] MEDS: POTASSIUM CHLORIDE 20 MEQ/15 ML ML GT SCH (09:00)
[2017-11-18] MEDS: CLOTRIMAZOLE 1% 15 GM TUBE TP SCH ×2 (09:00→21:17)
[2017-11-18] MEDS: ACIDOPHILUS/BULGARICUS 1 EACH TAB.CHEW GT SCH (09:00)
[2017-11-18] MEDS: HEPARIN SODIUM, PORCINE 5000 UNITS/1 ML VIAL SQ SCH ×2 (09:00→21:17)
[2017-11-18] MEDS: POLYVINYL ALCOHOL 15 ML BOTTLE EACHEYE SCH ×4 (09:00→21:17)
[2017-11-18] MEDS: OMEPRAZOLE 10 MG CAPSULE.DR GT SCH (09:00)
[2017-11-18] MEDS: POLYETHYLENE GLYCOL 3350 17 GM POWD.PACK GT SCH (09:00)
[2017-11-18] MEDS: HYDROGEN PEROXIDE 480 ML BOTTLE TP SCH ×2 (09:00→21:17)
[2017-11-18 19:30] VITALS: BP 103/63
[2017-11-18] MEDS: FINASTERIDE (5 MG) 5 MG TABLET GT SCH (20:00)
[2017-11-18] MEDS: DOCUSATE SODIUM LIQ 100 MG/10 ML UDC GT SCH (21:17)
[2017-11-18] MEDS: ASCORBIC ACID 500 MG TABLET GT SCH (21:17)
[2017-11-18] MEDS: MULTIVIT, IRON, MIN NO. 8, FA 1 TAB GT SCH (21:17)
[2017-11-18] MEDS: SENNOSIDES 8.6 MG TABLET GT SCH (21:18)
[2017-11-19] MEDS: ALBUTEROL FS 2.5 MG/3 ML VIAL.NEB NEB SCH ×4 (00:53→19:57)
[2017-11-19] MEDS: IPRATROPIUM NEB FS 0.5 MG/2.5 ML AMPUL.NEB NEB SCH ×4 (01:54→19:57)
[2017-11-19] MEDS: BACLOFEN (10 MG) 10 MG TABLET GT SCH ×3 (05:30→21:13)
[2017-11-19] MEDS: LEVOTHYROXINE SODIUM 125 MCG TABLET GT SCH (05:31)
[2017-11-19] MEDS: GLYCOPYRROLATE 1 MG TABLET GT SCH ×3 (05:31→17:58)
[2017-11-19] MEDS: HYDROGEN PEROXIDE 480 ML BOTTLE TP SCH ×2 (09:00→21:15)
[2017-11-19] MEDS: HEPARIN SODIUM, PORCINE 5000 UNITS/1 ML VIAL SQ SCH ×2 (09:00→21:14)
[2017-11-19] MEDS: CLOTRIMAZOLE 1% 15 GM TUBE TP SCH ×2 (09:00→21:15)
[2017-11-19] MEDS: POLYVINYL ALCOHOL 15 ML BOTTLE EACHEYE SCH ×4 (09:00→21:13)
[2017-11-19] MEDS: POTASSIUM CHLORIDE 20 MEQ/15 ML ML GT SCH (09:00)
[2017-11-19] MEDS: ACIDOPHILUS/BULGARICUS 1 EACH TAB.CHEW GT SCH (09:00)
[2017-11-19] MEDS: ZINC OXIDE 30 GM TUBE TP SCH ×2 (09:00→21:15)
[2017-11-19] MEDS: OMEPRAZOLE 10 MG CAPSULE.DR GT SCH (09:00)
[2017-11-19] MEDS: AMIODARONE HCL 200 MG TABLET GT SCH (09:00)
[2017-11-19] MEDS: POLYETHYLENE GLYCOL 3350 17 GM POWD.PACK GT SCH (09:00)
[2017-11-19 13:49] VITALS: BP 98/62
[2017-11-19] MEDS: FINASTERIDE (5 MG) 5 MG TABLET GT SCH (20:00)
[2017-11-19 20:06] VITALS: BP 118/66
[2017-11-19] MEDS: ASCORBIC ACID 500 MG TABLET GT SCH (21:13)
[2017-11-19] MEDS: MULTIVIT, IRON, MIN NO. 8, FA 1 TAB GT SCH (21:13)
[2017-11-19] MEDS: DOCUSATE SODIUM LIQ 100 MG/10 ML UDC GT SCH (21:13)
[2017-11-19] MEDS: SENNOSIDES 8.6 MG TABLET GT SCH (21:15)
[2017-11-20] MEDS: GLYCOPYRROLATE 1 MG TABLET GT SCH ×5 (00:30→23:57)
[2017-11-20] MEDS: IPRATROPIUM NEB FS 0.5 MG/2.5 ML AMPUL.NEB NEB SCH ×4 (01:15→19:55)
[2017-11-20] MEDS: ALBUTEROL FS 2.5 MG/3 ML VIAL.NEB NEB SCH ×4 (01:16→19:55)
[2017-11-20] MEDS: LEVOTHYROXINE SODIUM 125 MCG TABLET GT SCH (05:47)
[2017-11-20] MEDS: BACLOFEN (10 MG) 10 MG TABLET GT SCH ×3 (05:47→21:32)
[2017-11-20 07:30] VITALS: BP 90/57
[2017-11-20] MEDS: OMEPRAZOLE 10 MG CAPSULE.DR GT SCH (09:39)
[2017-11-20] MEDS: POLYETHYLENE GLYCOL 3350 17 GM POWD.PACK GT SCH (09:39)
[2017-11-20] MEDS: ACIDOPHILUS/BULGARICUS 1 EACH TAB.CHEW GT SCH (09:39)
[2017-11-20] MEDS: POTASSIUM CHLORIDE 20 MEQ/15 ML ML GT SCH (09:39)
[2017-11-20] MEDS: POLYVINYL ALCOHOL 15 ML BOTTLE EACHEYE SCH ×4 (09:39→21:32)
[2017-11-20] MEDS: AMIODARONE HCL 200 MG TABLET GT SCH (09:39)
[2017-11-20] MEDS: HEPARIN SODIUM, PORCINE 5000 UNITS/1 ML VIAL SQ SCH ×2 (09:39→21:33)
[2017-11-20] MEDS: HYDROGEN PEROXIDE 480 ML BOTTLE TP SCH ×2 (09:40→21:33)
[2017-11-20] MEDS: ZINC OXIDE 30 GM TUBE TP SCH ×2 (09:40→21:33)
[2017-11-20] MEDS: CLOTRIMAZOLE 1% 15 GM TUBE TP SCH ×2 (09:40→21:33)
--- NOTE | 2017-11-20 17:30 | NUR ---
Resident noted with low saturation,Increased FiO2 to 35%.tolarating well.notified got new order to do H&H and follow up with primary physician.
[2017-11-20] MEDS: FINASTERIDE (5 MG) 5 MG TABLET GT SCH (20:00)
[2017-11-20 20:57] VITALS: BP 105/70
[2017-11-20] MEDS: ASCORBIC ACID 500 MG TABLET GT SCH (21:32)
[2017-11-20] MEDS: DOCUSATE SODIUM LIQ 100 MG/10 ML UDC GT SCH (21:32)
[2017-11-20] MEDS: MULTIVIT, IRON, MIN NO. 8, FA 1 TAB GT SCH (21:32)
[2017-11-20] MEDS: SENNOSIDES 8.6 MG TABLET GT SCH (21:33)
[2017-11-21] MEDS: ALBUTEROL FS 2.5 MG/3 ML VIAL.NEB NEB SCH ×4 (01:30→19:41)
[2017-11-21] MEDS: IPRATROPIUM NEB FS 0.5 MG/2.5 ML AMPUL.NEB NEB SCH ×4 (01:30→19:41)
[2017-11-21] MEDS: BACLOFEN (10 MG) 10 MG TABLET GT SCH ×3 (05:00→21:22)
[2017-11-21] MEDS: LEVOTHYROXINE SODIUM 125 MCG TABLET GT SCH (06:29)
[2017-11-21] MEDS: GLYCOPYRROLATE 1 MG TABLET GT SCH ×4 (06:29→23:29)
[2017-11-21 07:40] VITALS: BP 121/76
[2017-11-21] MEDS: ZINC OXIDE 30 GM TUBE TP SCH ×2 (09:00→21:23)
[2017-11-21] MEDS: CLOTRIMAZOLE 1% 15 GM TUBE TP SCH ×2 (09:00→21:23)
[2017-11-21] MEDS: HYDROGEN PEROXIDE 480 ML BOTTLE TP SCH ×2 (09:00→21:23)
[2017-11-21] MEDS: POLYVINYL ALCOHOL 15 ML BOTTLE EACHEYE SCH ×4 (09:55→21:22)
[2017-11-21] MEDS: POTASSIUM CHLORIDE 20 MEQ/15 ML ML GT SCH (09:56)
[2017-11-21] MEDS: POLYETHYLENE GLYCOL 3350 17 GM POWD.PACK GT SCH (09:56)
[2017-11-21] MEDS: OMEPRAZOLE 10 MG CAPSULE.DR GT SCH (09:56)
[2017-11-21] MEDS: AMIODARONE HCL 200 MG TABLET GT SCH (09:56)
[2017-11-21] MEDS: ACIDOPHILUS/BULGARICUS 1 EACH TAB.CHEW GT SCH (09:56)
[2017-11-21] MEDS: HEPARIN SODIUM, PORCINE 5000 UNITS/1 ML VIAL SQ SCH ×2 (09:58→21:23)
[2017-11-21] MEDS: ACETAMINOPHEN 650 MG/20 ML UDC- FOR SA PATIENTS ONLY GT PRN (10:25)
--- NOTE | 2017-11-21 10:49 | NUR ---
Informed resident's that there is an IDT meeting Thursday November 23, 2017 from 12:30-1:30pm. she stated she would like to attend in person.
--- NOTE | 2017-11-21 15:27 | NUR ---
Seen and examined by Dr. Paniagua, seen wound photo of bilateral buttocks taken today which is an improvement from last week. NNO given.
[2017-11-21 19:48] VITALS: BP 127/82
[2017-11-21] MEDS: FINASTERIDE (5 MG) 5 MG TABLET GT SCH (20:30)
[2017-11-21] MEDS: MULTIVIT, IRON, MIN NO. 8, FA 1 TAB GT SCH (21:22)
[2017-11-21] MEDS: ASCORBIC ACID 500 MG TABLET GT SCH (21:22)
[2017-11-21] MEDS: DOCUSATE SODIUM LIQ 100 MG/10 ML UDC GT SCH (21:22)
[2017-11-21] MEDS: SENNOSIDES 8.6 MG TABLET GT SCH (21:23)
[2017-11-22] MEDS: ALBUTEROL FS 2.5 MG/3 ML VIAL.NEB NEB SCH ×4 (01:15→20:35)
[2017-11-22] MEDS: IPRATROPIUM NEB FS 0.5 MG/2.5 ML AMPUL.NEB NEB SCH ×4 (01:15→20:35)
[2017-11-22] MEDS: GLYCOPYRROLATE 1 MG TABLET GT SCH ×4 (05:54→23:55)
[2017-11-22] MEDS: RENAL NOVASOURCE 1,000 ML BOTTLE GT PRN (05:54)
[2017-11-22] MEDS: BACLOFEN (10 MG) 10 MG TABLET GT SCH ×3 (05:54→21:46)
[2017-11-22] MEDS: LEVOTHYROXINE SODIUM 125 MCG TABLET GT SCH (05:54)
[2017-11-22 07:36] VITALS: BP 136/74
[2017-11-22] MEDS: AMIODARONE HCL 200 MG TABLET GT SCH (08:41)
[2017-11-22] MEDS: POLYVINYL ALCOHOL 15 ML BOTTLE EACHEYE SCH ×4 (08:41→21:46)
[2017-11-22] MEDS: POTASSIUM CHLORIDE 20 MEQ/15 ML ML GT SCH (08:42)
[2017-11-22] MEDS: ACIDOPHILUS/BULGARICUS 1 EACH TAB.CHEW GT SCH (08:42)
[2017-11-22] MEDS: POLYETHYLENE GLYCOL 3350 17 GM POWD.PACK GT SCH (08:42)
[2017-11-22] MEDS: OMEPRAZOLE 10 MG CAPSULE.DR GT SCH (08:42)
[2017-11-22] MEDS: CLOTRIMAZOLE 1% 15 GM TUBE TP SCH ×2 (08:43→21:47)
[2017-11-22] MEDS: HYDROGEN PEROXIDE 480 ML BOTTLE TP SCH ×2 (08:43→21:47)
[2017-11-22] MEDS: HEPARIN SODIUM, PORCINE 5000 UNITS/1 ML VIAL SQ SCH ×2 (08:43→21:48)
[2017-11-22] MEDS: ZINC OXIDE 30 GM TUBE TP SCH ×2 (08:43→21:47)
[2017-11-22] MEDS: FINASTERIDE (5 MG) 5 MG TABLET GT SCH (20:30)
--- NOTE | 2017-11-22 21:12 | NUR ---
Pt had temp of 100.6 cooling measures and Tylenol given.Millicent TRUMPET PLAYER notified and ordered UA and culture and CBC. notified of MAIDA.Will continue to monitor.
[2017-11-22] MEDS: ACETAMINOPHEN 650 MG/20 ML UDC- FOR SA PATIENTS ONLY GT PRN (21:30)
[2017-11-22] MEDS: DOCUSATE SODIUM LIQ 100 MG/10 ML UDC GT SCH (21:46)
[2017-11-22] MEDS: MULTIVIT, IRON, MIN NO. 8, FA 1 TAB GT SCH (21:46)
[2017-11-22] MEDS: ASCORBIC ACID 500 MG TABLET GT SCH (21:46)
[2017-11-22] MEDS: SENNOSIDES 8.6 MG TABLET GT SCH (21:47)
[2017-11-23] MEDS: IPRATROPIUM NEB FS 0.5 MG/2.5 ML AMPUL.NEB NEB SCH ×4 (02:25→20:11)
[2017-11-23] MEDS: ALBUTEROL FS 2.5 MG/3 ML VIAL.NEB NEB SCH ×4 (02:25→20:11)
[2017-11-23] MEDS: BACLOFEN (10 MG) 10 MG TABLET GT SCH ×3 (05:00→21:47)
[2017-11-23] MEDS: LEVOTHYROXINE SODIUM 125 MCG TABLET GT SCH (06:05)
[2017-11-23] MEDS: GLYCOPYRROLATE 1 MG TABLET GT SCH ×3 (06:05→17:41)
[2017-11-23] MEDS: RENAL NOVASOURCE 1,000 ML BOTTLE GT PRN (06:06)
--- NOTE | 2017-11-23 06:52 | NUR ---
Latest temp 98.7. called and she said call her if any changes or new order.Will endorse.
[2017-11-23 08:07] LABS: BASOPHILS % (AUTO) 0.1 % (0.0-2.0); EOSINOPHILS % (AUTO) 0.9 % (0.0-6.0); HEMATOCRIT 30 % (39-51); HEMOGLOBIN 9.6 g/dL (13.5-17.5); LYMPHOCYTES # (AUTO) 1.4 /CMM (0.8-4.8); LYMPHOCYTES % (AUTO) 6.5 % (20.0-44.0); MEAN CORPUSCULAR HEMOGLOBIN 23 PG (26.0-33.0); MEAN CORPUSCULAR HGB CONC 32 g/dl (31.0-36.0); MEAN CORPUSCULAR VOLUME 72 fL (80-96); MONOCYTES # (AUTO) 1.8 /CMM (0.1-1.30); MONOCYTES % (AUTO) 8.5 % (2.0-12.0); NEUTROPHILS # (AUTO) 18.2 /CMM (1.8-8.9); PLATELET COUNT (AUTO) 387 /CMM (150-450); RDW COEFFICIENT OF VARIATION 18.7 (11.5-15.0); RED BLOOD CELL COUNT(AUTO) 4.22 MIL/uL (4.5-6.0); WHITE BLOOD COUNT (AUTO) 21.7 K/uL (4.3-11.0)
[2017-11-23 08:08] VITALS: BP 106/60
[2017-11-23] MEDS: POTASSIUM CHLORIDE 20 MEQ/15 ML ML GT SCH (09:12)
[2017-11-23] MEDS: POLYVINYL ALCOHOL 15 ML BOTTLE EACHEYE SCH ×4 (09:12→21:47)
[2017-11-23] MEDS: POLYETHYLENE GLYCOL 3350 17 GM POWD.PACK GT SCH (09:12)
[2017-11-23] MEDS: ACIDOPHILUS/BULGARICUS 1 EACH TAB.CHEW GT SCH (09:12)
[2017-11-23] MEDS: AMIODARONE HCL 200 MG TABLET GT SCH (09:12)
[2017-11-23] MEDS: OMEPRAZOLE 10 MG CAPSULE.DR GT SCH (09:12)
[2017-11-23] MEDS: HYDROGEN PEROXIDE 480 ML BOTTLE TP SCH ×2 (09:13→21:48)
[2017-11-23] MEDS: HEPARIN SODIUM, PORCINE 5000 UNITS/1 ML VIAL SQ SCH ×2 (09:13→21:48)
[2017-11-23] MEDS: CLOTRIMAZOLE 1% 15 GM TUBE TP SCH ×2 (09:14→21:48)
[2017-11-23] MEDS: ZINC OXIDE 30 GM TUBE TP SCH ×2 (09:14→21:48)
--- NOTE | 2017-11-23 09:42 | NUR ---
Received a message from charge nurse that the resident's is not able to attend IDT meeting today due to feeling sick.
--- NOTE | 2017-11-23 10:00 | NUR ---
Notified CARMELITA Ricks of CBC result with elevated WBC 21.7. Urine culture pending. New order given to start IV Vancomycin and Merrem. Notified nursing finishing supervisor to notify midline team for midline insertion. Mrs Bradley made aware of new order, appreciated the call. [facility] and per Ban it is covered by patient's insurance and will provide the medication. At this time awaiting for midline insertion.
[2017-11-23 10:16] LABS: APPEARANCE,URINE CLOUDY (CLEAR); BILIRUBIN,URINE NEGATIVE (NEGATIVE); BLOOD, URINE NEGATIVE Ery/uL (NEGATIVE); COLOR,URINE YELLOW (YELLOW); KETONES,URINE NEGATIVE (NEGATIVE); LEUKOCYTE ESTERASE ,URINE 3+ (NEGATIVE); NITRITE, URINE NEGATIVE (NEGATIVE); PROTEIN,URINE 2+ mg/dl (NEGATIVE); UGLUCOSE NEGATIVE (NEGATIVE); UROBILINOGEN,URINE 0.2 EU/dL (0.2)
[2017-11-23 10:19] LABS: BACTERIA,URINE Few /HPF (None Seen); RBC,URINE 0-2 /HPF (0-2); SQUAMOUS EPITHELIAL CELL,UR Few /HPF (None Seen); WBC,URINE 21-50 /HPF (0-3)
[2017-11-23 10:20] LABS: TRIPLE PHOSPHATE CRYSTAL,UR Moderate /HPF (None Seen); URINE AMORPHOUS PHOSPHATES Moderate /HPF (None Seen)
--- NOTE | 2017-11-23 12:10 | NUR ---
Midline inserted by PICC line nurse in the R upper arm G #20, patent, no s/s of infiltration. Awaiting for pharmacy to dose Vancomycin.
--- NOTE | 2017-11-23 14:05 | NUR ---
INTERDISCIPLINARY PLAN OF CARE CONFERENCE was held today. Resident's unable to attend. Dr. David and the interdisciplinary team reviewed the current plan of care in detail, current orders, medications, treatments and labs. Resident will start IV ATB Vancomycin and Merren 500 mg Q 12 hours due to fever and WBC 21.7. No further order given.
[2017-11-23] MEDS: VANCOMYCIN 1 GM in IV NS 0.9% 250 ML IV SCH (15:00)
[2017-11-23] MEDS ORDERED: MEROPENEM 500 MG in IV NS 0.9% 50 ML IV SCH (15:00)
[2017-11-23] MEDS ORDERED: VANCOMYCIN 1 GM in IV NS 0.9% 250 ML IV SCH (15:00)
[2017-11-23] MEDS: MEROPENEM 500 MG in IV NS 0.9% 50 ML IV SCH (17:35)
--- NOTE | 2017-11-23 18:40 | NUR ---
IV ATB Vancomycin and Merrem given, no adverse reaction.
[2017-11-23 19:59] VITALS: BP 110/66
[2017-11-23] MEDS: FINASTERIDE (5 MG) 5 MG TABLET GT SCH (20:30)
[2017-11-23] MEDS: DOCUSATE SODIUM LIQ 100 MG/10 ML UDC GT SCH (21:47)
[2017-11-23] MEDS: MULTIVIT, IRON, MIN NO. 8, FA 1 TAB GT SCH (21:47)
[2017-11-23] MEDS: ASCORBIC ACID 500 MG TABLET GT SCH (21:47)
[2017-11-23] MEDS: SENNOSIDES 8.6 MG TABLET GT SCH (21:48)
[2017-11-24] MEDS: GLYCOPYRROLATE 1 MG TABLET GT SCH ×4 (00:32→17:42)
[2017-11-24] MEDS: IPRATROPIUM NEB FS 0.5 MG/2.5 ML AMPUL.NEB NEB SCH ×4 (02:16→20:23)
[2017-11-24] MEDS: ALBUTEROL FS 2.5 MG/3 ML VIAL.NEB NEB SCH ×4 (02:17→20:23)
[2017-11-24] MEDS: LEVOTHYROXINE SODIUM 125 MCG TABLET GT SCH (05:20)
[2017-11-24] MEDS: RENAL NOVASOURCE 1,000 ML BOTTLE GT PRN (05:20)
[2017-11-24] MEDS: BACLOFEN (10 MG) 10 MG TABLET GT SCH ×3 (05:20→21:00)
[2017-11-24] MEDS: MEROPENEM 500 MG in IV NS 0.9% 50 ML IV SCH (05:49)
[2017-11-24 07:30] VITALS: BP 132/72
[2017-11-24] MEDS: ZINC OXIDE 30 GM TUBE TP SCH ×2 (09:00→21:00)
[2017-11-24] MEDS: HYDROGEN PEROXIDE 480 ML BOTTLE TP SCH ×2 (09:00→21:00)
[2017-11-24] MEDS: CLOTRIMAZOLE 1% 15 GM TUBE TP SCH ×2 (09:00→21:00)
[2017-11-24] MEDS: AMIODARONE HCL 200 MG TABLET GT SCH (09:23)
[2017-11-24] MEDS: POTASSIUM CHLORIDE 20 MEQ/15 ML ML GT SCH (09:23)
[2017-11-24] MEDS: POLYETHYLENE GLYCOL 3350 17 GM POWD.PACK GT SCH (09:23)
[2017-11-24] MEDS: POLYVINYL ALCOHOL 15 ML BOTTLE EACHEYE SCH ×4 (09:23→21:00)
[2017-11-24] MEDS: OMEPRAZOLE 10 MG CAPSULE.DR GT SCH (09:23)
[2017-11-24] MEDS: ACIDOPHILUS/BULGARICUS 1 EACH TAB.CHEW GT SCH (09:23)
[2017-11-24] MEDS: HEPARIN SODIUM, PORCINE 5000 UNITS/1 ML VIAL SQ SCH ×2 (09:24→21:00)
[2017-11-24] MEDS: VANCOMYCIN 1 GM in IV NS 0.9% 250 ML IV SCH (14:52)
[2017-11-24 19:36] VITALS: BP 143/78
[2017-11-24] MEDS: FINASTERIDE (5 MG) 5 MG TABLET GT SCH (20:00)
[2017-11-24] MEDS: DOCUSATE SODIUM LIQ 100 MG/10 ML UDC GT SCH (21:00)
[2017-11-24] MEDS: MULTIVIT, IRON, MIN NO. 8, FA 1 TAB GT SCH (21:00)
[2017-11-24] MEDS: ASCORBIC ACID 500 MG TABLET GT SCH (21:00)
[2017-11-24] MEDS: SENNOSIDES 8.6 MG TABLET GT SCH (22:53)
[2017-11-25] MEDS: GLYCOPYRROLATE 1 MG TABLET GT SCH ×5 (00:06→23:41)
[2017-11-25] MEDS: ALBUTEROL FS 2.5 MG/3 ML VIAL.NEB NEB SCH ×4 (01:30→19:41)
[2017-11-25] MEDS: IPRATROPIUM NEB FS 0.5 MG/2.5 ML AMPUL.NEB NEB SCH ×4 (01:30→19:41)
[2017-11-25] MEDS: MEROPENEM 500 MG in IV NS 0.9% 50 ML IV SCH ×2 (05:40→18:27)
[2017-11-25] MEDS: LEVOTHYROXINE SODIUM 125 MCG TABLET GT SCH (05:40)
[2017-11-25] MEDS: BACLOFEN (10 MG) 10 MG TABLET GT SCH ×3 (05:40→21:18)
[2017-11-25] MEDS: RENAL NOVASOURCE 1,000 ML BOTTLE GT PRN (05:41)
[2017-11-25 08:30] VITALS: BP 101/69
[2017-11-25] MEDS: OMEPRAZOLE 10 MG CAPSULE.DR GT SCH (09:40)
[2017-11-25] MEDS: POLYETHYLENE GLYCOL 3350 17 GM POWD.PACK GT SCH (09:40)
[2017-11-25] MEDS: POTASSIUM CHLORIDE 20 MEQ/15 ML ML GT SCH (09:40)
[2017-11-25] MEDS: AMIODARONE HCL 200 MG TABLET GT SCH (09:40)
[2017-11-25] MEDS: POLYVINYL ALCOHOL 15 ML BOTTLE EACHEYE SCH ×4 (09:40→21:18)
[2017-11-25] MEDS: ACIDOPHILUS/BULGARICUS 1 EACH TAB.CHEW GT SCH (09:40)
[2017-11-25] MEDS: CLOTRIMAZOLE 1% 15 GM TUBE TP SCH ×2 (09:43→21:19)
[2017-11-25] MEDS: HYDROGEN PEROXIDE 480 ML BOTTLE TP SCH ×2 (09:43→21:19)
[2017-11-25] MEDS: ZINC OXIDE 30 GM TUBE TP SCH ×2 (09:43→21:19)
[2017-11-25] MEDS: HEPARIN SODIUM, PORCINE 5000 UNITS/1 ML VIAL SQ SCH ×2 (09:43→21:19)
[2017-11-25 15:14] LABS: CREATININE 1.6 mg/dL (0.6-1.3)
--- NOTE | 2017-11-25 15:45 | NUR ---
call made to [facility] pharmacy to relay the vanco trough result.spoke to IV pharmacist asked to continue the same orders.He said he will fax the new orders.got new orders by fax.noted and carried out.placed order for labs.
[2017-11-25] MEDS: VANCOMYCIN 1 GM in IV NS 0.9% 250 ML IV SCH (15:53)
[2017-11-25] MEDS: FINASTERIDE (5 MG) 5 MG TABLET GT SCH (20:00)
[2017-11-25 20:19] VITALS: BP 113/66
[2017-11-25] MEDS: ASCORBIC ACID 500 MG TABLET GT SCH (21:18)
[2017-11-25] MEDS: DOCUSATE SODIUM LIQ 100 MG/10 ML UDC GT SCH (21:18)
[2017-11-25] MEDS: MULTIVIT, IRON, MIN NO. 8, FA 1 TAB GT SCH (21:18)
[2017-11-25] MEDS: SENNOSIDES 8.6 MG TABLET GT SCH (21:19)
[2017-11-26] MEDS: ALBUTEROL FS 2.5 MG/3 ML VIAL.NEB NEB SCH ×4 (01:22→19:55)
[2017-11-26] MEDS: IPRATROPIUM NEB FS 0.5 MG/2.5 ML AMPUL.NEB NEB SCH ×4 (01:22→19:55)
[2017-11-26] MEDS: LEVOTHYROXINE SODIUM 125 MCG TABLET GT SCH (05:46)
[2017-11-26] MEDS: BACLOFEN (10 MG) 10 MG TABLET GT SCH ×3 (05:46→21:21)
[2017-11-26] MEDS: GLYCOPYRROLATE 1 MG TABLET GT SCH ×3 (05:46→17:36)
[2017-11-26] MEDS: CLOTRIMAZOLE 1% 15 GM TUBE TP SCH ×2 (09:00→21:22)
[2017-11-26] MEDS: ZINC OXIDE 30 GM TUBE TP SCH ×2 (09:00→21:22)
[2017-11-26] MEDS: HYDROGEN PEROXIDE 480 ML BOTTLE TP SCH ×2 (09:00→21:22)
[2017-11-26] MEDS: AMIODARONE HCL 200 MG TABLET GT SCH (09:07)
[2017-11-26] MEDS: POLYVINYL ALCOHOL 15 ML BOTTLE EACHEYE SCH ×4 (09:07→21:21)
[2017-11-26] MEDS: ACIDOPHILUS/BULGARICUS 1 EACH TAB.CHEW GT SCH (09:07)
[2017-11-26] MEDS: POTASSIUM CHLORIDE 20 MEQ/15 ML ML GT SCH (09:07)
[2017-11-26] MEDS: OMEPRAZOLE 10 MG CAPSULE.DR GT SCH (09:07)
[2017-11-26] MEDS: POLYETHYLENE GLYCOL 3350 17 GM POWD.PACK GT SCH (09:07)
[2017-11-26] MEDS: HEPARIN SODIUM, PORCINE 5000 UNITS/1 ML VIAL SQ SCH ×2 (09:08→21:22)
--- NOTE | 2017-11-26 10:57 | NUR ---
Pt noted with a scratch on the left side of his back. Pt had a shower, provided by WALE Patiño and DEBBIE Maldonado. Prakash lift was used for transfers. Received order to apply triple antibiotic ointment q shift for 7 days. Addendum: 11/26/17 at 1625 by NOAH OGDEN RN Reminded WALE to be extra careful when providing care to pt.
--- NOTE | 2017-11-26 11:00 | NUR ---
Seen by CARMELITA Posada. She looked at pt's lump on the neck which looks bigger, redder and seems to look like an abscess. CARMELITA Posada said pt is already on IV antibiotics and it will help with the abscess. No new order at this time.
--- NOTE | 2017-11-26 11:12 | NUR ---
Notified pt's regarding scratch boom on pt's left side of back. Also notified her that pt's lump on the neck looks bigger and redder. She said she already saw it last night.
[2017-11-26] MEDS: VANCOMYCIN 1 GM in IV NS 0.9% 250 ML IV SCH (15:00)
[2017-11-26] MEDS: MEROPENEM 500 MG in IV NS 0.9% 50 ML IV SCH (18:41)
[2017-11-26 19:54] VITALS: BP 137/99
[2017-11-26] MEDS: FINASTERIDE (5 MG) 5 MG TABLET GT SCH (20:00)
[2017-11-26] MEDS: ASCORBIC ACID 500 MG TABLET GT SCH (21:21)
[2017-11-26] MEDS: DOCUSATE SODIUM LIQ 100 MG/10 ML UDC GT SCH (21:21)
[2017-11-26] MEDS: MULTIVIT, IRON, MIN NO. 8, FA 1 TAB GT SCH (21:21)
[2017-11-26] MEDS: NEOMY SULF/BACITRAC ZN/POLY 15 GM TUBE TP SCH (21:22)
[2017-11-26] MEDS: SENNOSIDES 8.6 MG TABLET GT SCH (21:22)
[2017-11-27] MEDS: GLYCOPYRROLATE 1 MG TABLET GT SCH ×4 (00:45→17:30)
[2017-11-27] MEDS: ALBUTEROL FS 2.5 MG/3 ML VIAL.NEB NEB SCH ×4 (01:08→20:22)
[2017-11-27] MEDS: IPRATROPIUM NEB FS 0.5 MG/2.5 ML AMPUL.NEB NEB SCH ×4 (01:08→20:22)
[2017-11-27] MEDS: BACLOFEN (10 MG) 10 MG TABLET GT SCH ×3 (05:00→21:40)
[2017-11-27] MEDS: LEVOTHYROXINE SODIUM 125 MCG TABLET GT SCH (06:27)
[2017-11-27 06:59] LABS: BASOPHILS % (AUTO) 0.2 % (0.0-2.0); EOSINOPHILS % (AUTO) 3.1 % (0.0-6.0); HEMATOCRIT 27 % (39-51); HEMOGLOBIN 8.8 g/dL (13.5-17.5); LYMPHOCYTES # (AUTO) 3.2 /CMM (0.8-4.8); LYMPHOCYTES % (AUTO) 17.6 % (20.0-44.0); MEAN CORPUSCULAR HEMOGLOBIN 23 PG (26.0-33.0); MEAN CORPUSCULAR HGB CONC 32 g/dl (31.0-36.0); MEAN CORPUSCULAR VOLUME 71 fL (80-96); MONOCYTES # (AUTO) 1.9 /CMM (0.1-1.30); MONOCYTES % (AUTO) 10.5 % (2.0-12.0); NEUTROPHILS # (AUTO) 12.7 /CMM (1.8-8.9); NEUTROPHILS % (AUTO) 68.6 % (43.0-81.0); PLATELET COUNT (AUTO) 507 /CMM (150-450); RDW COEFFICIENT OF VARIATION 18.8 (11.5-15.0); RED BLOOD CELL COUNT(AUTO) 3.82 MIL/uL (4.5-6.0); WHITE BLOOD COUNT (AUTO) 18.5 K/uL (4.3-11.0)
[2017-11-27 07:49] VITALS: BP 100/54
[2017-11-27] MEDS: POLYVINYL ALCOHOL 15 ML BOTTLE EACHEYE SCH ×4 (08:42→21:40)
[2017-11-27] MEDS: AMIODARONE HCL 200 MG TABLET GT SCH (08:43)
[2017-11-27] MEDS: ACIDOPHILUS/BULGARICUS 1 EACH TAB.CHEW GT SCH (08:43)
[2017-11-27] MEDS: POTASSIUM CHLORIDE 20 MEQ/15 ML ML GT SCH (08:44)
[2017-11-27] MEDS: OMEPRAZOLE 10 MG CAPSULE.DR GT SCH (08:44)
[2017-11-27] MEDS: POLYETHYLENE GLYCOL 3350 17 GM POWD.PACK GT SCH (08:47)
[2017-11-27] MEDS: HEPARIN SODIUM, PORCINE 5000 UNITS/1 ML VIAL SQ SCH ×2 (08:49→21:40)
--- NOTE | 2017-11-27 09:57 | NUR ---
Seen by Dr. David. He looked at pt's lump on the neck and said it looks like an abscess. He ordered to have Dr. Abdifatah Read to take a look at it for possible I & D.
--- NOTE | 2017-11-27 10:07 | NUR ---
Called Dr. Read's office and left a message with Art. Dr. Read called back and said he will see pt later.
[2017-11-27] MEDS: NEOMY SULF/BACITRAC ZN/POLY 15 GM TUBE TP SCH ×2 (10:30→21:40)
[2017-11-27] MEDS: HYDROGEN PEROXIDE 480 ML BOTTLE TP SCH ×2 (10:30→21:40)
[2017-11-27] MEDS: CLOTRIMAZOLE 1% 15 GM TUBE TP SCH ×2 (10:30→21:40)
[2017-11-27] MEDS: ZINC OXIDE 30 GM TUBE TP SCH ×2 (10:30→21:40)
[2017-11-27 10:51] LABS: BAND % (MANUAL) 5 % (0.0-5.0); EOSINOPHILS % (MANUAL) 4 % (0-4); LYMPHOCYTES % (MANUAL) 16 % (16-48); METAMYELOCYTES % 4 % (0-0); MONOCYTES % (MANUAL) 10 % (0-11.0); MYELOCYTES % 4 % (0-0); NEUTROPHILS % (MANUAL) 57 (42-76)
[2017-11-27] MEDS: VANCOMYCIN 1 GM in IV NS 0.9% 250 ML IV SCH (15:00)
--- NOTE | 2017-11-27 15:35 | NUR ---
Seen by CARMELITA Vargas. She examined pt's lesion on the neck and ordered an ultrasound. Showed her previous ultrasound and CT results of the same lesion and she ordered to DC ultrasound and do a CT of neck with contrast instead. Notified her that according to admitting, an authorization from pt's insurance will be needed prior to doing the CT scan. Notified pt's of new order.
--- NOTE | 2017-11-27 16:45 | NUR ---
Relayed CXR and urine C & S results to CARMELITA Ricks.
[2017-11-27] MEDS: MEROPENEM 500 MG in IV NS 0.9% 50 ML IV SCH (18:34)
--- NOTE | 2017-11-27 19:30 | NUR ---
RN NOTES Received new order from Millicent to D/C vancomycin and Merrem. Start Fortaz 1gm IVPB Q8hr, Gentamicin pharmacy to dose, noted and carried out.
--- NOTE | 2017-11-27 19:45 | NUR ---
RN NOTES Received new order for Gentamicin 120mg IVPB Q24hr, Gentamicin trough on 11/29/17 @2029, noted and carried out.
[2017-11-27 20:00] VITALS: BP 123/80
[2017-11-27] MEDS: FINASTERIDE (5 MG) 5 MG TABLET GT SCH (20:00)
[2017-11-27] MEDS ORDERED: GENTAMICIN 120 MG in IV D5W 100 ML IV SCH (21:00)
[2017-11-27] MEDS: DOCUSATE SODIUM LIQ 100 MG/10 ML UDC GT SCH (21:40)
[2017-11-27] MEDS: ASCORBIC ACID 500 MG TABLET GT SCH (21:40)
[2017-11-27] MEDS: MULTIVIT, IRON, MIN NO. 8, FA 1 TAB GT SCH (21:40)
[2017-11-27] MEDS: SENNOSIDES 8.6 MG TABLET GT SCH (21:41)
[2017-11-27] MEDS: CEFTAZIDIME 1 G in IV D5W 50 ML IV SCH (21:42)
[2017-11-28] MEDS: GLYCOPYRROLATE 1 MG TABLET GT SCH ×5 (00:28→23:56)
[2017-11-28] MEDS: IPRATROPIUM NEB FS 0.5 MG/2.5 ML AMPUL.NEB NEB SCH ×4 (01:41→19:30)
[2017-11-28] MEDS: ALBUTEROL FS 2.5 MG/3 ML VIAL.NEB NEB SCH ×4 (01:41→19:30)
[2017-11-28] MEDS: CEFTAZIDIME 1 G in IV D5W 50 ML IV SCH (05:43)
[2017-11-28] MEDS: BACLOFEN (10 MG) 10 MG TABLET GT SCH ×3 (05:47→21:38)
[2017-11-28] MEDS: LEVOTHYROXINE SODIUM 125 MCG TABLET GT SCH (05:47)
[2017-11-28 08:00] VITALS: BP 94/54
[2017-11-28] MEDS: NEOMY SULF/BACITRAC ZN/POLY 15 GM TUBE TP SCH ×2 (09:00→21:39)
[2017-11-28] MEDS: ZINC OXIDE 30 GM TUBE TP SCH (09:00)
[2017-11-28] MEDS: CLOTRIMAZOLE 1% 15 GM TUBE TP SCH (09:00)
[2017-11-28] MEDS: HYDROGEN PEROXIDE 480 ML BOTTLE TP SCH ×2 (09:00→21:39)
[2017-11-28] MEDS: POLYVINYL ALCOHOL 15 ML BOTTLE EACHEYE SCH ×4 (09:27→21:38)
[2017-11-28] MEDS: POLYETHYLENE GLYCOL 3350 17 GM POWD.PACK GT SCH (09:27)
[2017-11-28] MEDS: ACIDOPHILUS/BULGARICUS 1 EACH TAB.CHEW GT SCH (09:27)
[2017-11-28] MEDS: AMIODARONE HCL 200 MG TABLET GT SCH (09:27)
[2017-11-28] MEDS: POTASSIUM CHLORIDE 20 MEQ/15 ML ML GT SCH (09:28)
[2017-11-28] MEDS: OMEPRAZOLE 10 MG CAPSULE.DR GT SCH (09:29)
[2017-11-28] MEDS: HEPARIN SODIUM, PORCINE 5000 UNITS/1 ML VIAL SQ SCH ×2 (09:44→21:39)
--- NOTE | 2017-11-28 10:00 | NUR ---
Followed-up with admitting department if CT scan has been authorized by patient's insurance, according to April from admitting to call their accounting manager assistant controller to follow-up status. Subacute nursing staff development coordinator will f/u with business transformation manager.
[2017-11-28] MEDS: RENAL NOVASOURCE 1,000 ML BOTTLE GT PRN (13:06)
[2017-11-28] MEDS: MEROPENEM 500 MG in IV NS 0.9% 50 ML IV SCH (17:54)
--- NOTE | 2017-11-28 18:00 | NUR ---
Notified resident's that authorization for CT scan of the neck will take about 5-7 days. Per patient's , it is OK. There is small opening from the neck mass that bleeds, gauze applied. No signs of respiratory distress, O2 sat 96-99%.
[2017-11-28] MEDS: NS 0.9% IV SCH (20:22)
[2017-11-28] MEDS: TOBRAMYCIN IV SCH (20:22)
[2017-11-28] MEDS: FINASTERIDE (5 MG) 5 MG TABLET GT SCH (20:30)
[2017-11-28] MEDS: ASCORBIC ACID 500 MG TABLET GT SCH (21:38)
[2017-11-28] MEDS: DOCUSATE SODIUM LIQ 100 MG/10 ML UDC GT SCH (21:38)
[2017-11-28] MEDS: MULTIVIT, IRON, MIN NO. 8, FA 1 TAB GT SCH (21:38)
[2017-11-28] MEDS: SENNOSIDES 8.6 MG TABLET GT SCH (21:39)
[2017-11-28 22:14] VITALS: BP 136/95
[2017-11-29] MEDS: ALBUTEROL FS 2.5 MG/3 ML VIAL.NEB NEB SCH ×4 (02:22→20:06)
[2017-11-29] MEDS: IPRATROPIUM NEB FS 0.5 MG/2.5 ML AMPUL.NEB NEB SCH ×4 (02:22→20:06)
[2017-11-29] MEDS: GLYCOPYRROLATE 1 MG TABLET GT SCH ×3 (05:43→18:22)
[2017-11-29] MEDS: LEVOTHYROXINE SODIUM 125 MCG TABLET GT SCH (05:43)
[2017-11-29] MEDS: BACLOFEN (10 MG) 10 MG TABLET GT SCH ×3 (05:43→21:20)
[2017-11-29] MEDS: MEROPENEM 500 MG in IV NS 0.9% 50 ML IV SCH ×2 (06:17→18:00)
[2017-11-29 08:04] VITALS: BP 135/76
[2017-11-29] MEDS: HYDROGEN PEROXIDE 480 ML BOTTLE TP SCH ×2 (09:53→21:20)
[2017-11-29] MEDS: HEPARIN SODIUM, PORCINE 5000 UNITS/1 ML VIAL SQ SCH ×2 (09:53→21:20)
[2017-11-29] MEDS: NEOMY SULF/BACITRAC ZN/POLY 15 GM TUBE TP SCH ×2 (09:54→21:20)
[2017-11-29] MEDS: POLYETHYLENE GLYCOL 3350 17 GM POWD.PACK GT SCH (09:54)
[2017-11-29] MEDS: AMIODARONE HCL 200 MG TABLET GT SCH (09:54)
[2017-11-29] MEDS: POTASSIUM CHLORIDE 20 MEQ/15 ML ML GT SCH (09:54)
[2017-11-29] MEDS: OMEPRAZOLE 10 MG CAPSULE.DR GT SCH (09:54)
[2017-11-29] MEDS: ACIDOPHILUS/BULGARICUS 1 EACH TAB.CHEW GT SCH (09:54)
[2017-11-29] MEDS: POLYVINYL ALCOHOL 15 ML BOTTLE EACHEYE SCH ×4 (09:54→21:20)
[2017-11-29] MEDS: FINASTERIDE (5 MG) 5 MG TABLET GT SCH (20:00)
[2017-11-29] MEDS: TOBRAMYCIN IV SCH (20:13)
[2017-11-29] MEDS: NS 0.9% IV SCH (20:13)
[2017-11-29] MEDS: DOCUSATE SODIUM LIQ 100 MG/10 ML UDC GT SCH (21:20)
[2017-11-29] MEDS: MULTIVIT, IRON, MIN NO. 8, FA 1 TAB GT SCH (21:20)
[2017-11-29] MEDS: SENNOSIDES 8.6 MG TABLET GT SCH (21:20)
[2017-11-29] MEDS: ASCORBIC ACID 500 MG TABLET GT SCH (21:20)
[2017-11-29 23:24] VITALS: BP 130/84
[2017-11-30] MEDS: GLYCOPYRROLATE 1 MG TABLET GT SCH ×5 (00:21→23:05)
[2017-11-30] MEDS: ALBUTEROL FS 2.5 MG/3 ML VIAL.NEB NEB SCH ×4 (01:04→20:09)
[2017-11-30] MEDS: IPRATROPIUM NEB FS 0.5 MG/2.5 ML AMPUL.NEB NEB SCH ×4 (01:04→20:09)
[2017-11-30] MEDS: BACLOFEN (10 MG) 10 MG TABLET GT SCH ×3 (05:13→21:14)
[2017-11-30] MEDS: LEVOTHYROXINE SODIUM 125 MCG TABLET GT SCH (05:13)
[2017-11-30] MEDS: MEROPENEM 500 MG in IV NS 0.9% 50 ML IV SCH ×2 (05:22→18:04)
[2017-11-30 07:35] VITALS: BP 111/71
[2017-11-30] MEDS: AMIODARONE HCL 200 MG TABLET GT SCH (09:00)
[2017-11-30] MEDS: ACIDOPHILUS/BULGARICUS 1 EACH TAB.CHEW GT SCH (09:00)
[2017-11-30] MEDS: NEOMY SULF/BACITRAC ZN/POLY 15 GM TUBE TP SCH ×2 (09:00→21:16)
[2017-11-30] MEDS: OMEPRAZOLE 10 MG CAPSULE.DR GT SCH (09:00)
[2017-11-30] MEDS: HYDROGEN PEROXIDE 480 ML BOTTLE TP SCH ×2 (09:00→21:14)
[2017-11-30] MEDS: POTASSIUM CHLORIDE 20 MEQ/15 ML ML GT SCH (09:00)
[2017-11-30] MEDS: HEPARIN SODIUM, PORCINE 5000 UNITS/1 ML VIAL SQ SCH ×2 (09:00→21:14)
[2017-11-30] MEDS: POLYVINYL ALCOHOL 15 ML BOTTLE EACHEYE SCH ×4 (09:00→21:14)
[2017-11-30] MEDS: POLYETHYLENE GLYCOL 3350 17 GM POWD.PACK GT SCH (09:00)
--- NOTE | 2017-11-30 11:00 | NUR ---
Spoke with Cat, case monitor from [employer] requesting facesheet, list of medications and physician's order for CT scan. She said that it will be reviewed and most likely it will be approved.
[2017-11-30] MEDS: ACETAMINOPHEN 650 MG/20 ML UDC- FOR SA PATIENTS ONLY GT PRN (13:03)
--- NOTE | 2017-11-30 18:49 | NUR ---
Placed a follow-up call to [facility]'s case assembler (patient's insurance) communication engineer regarding authorization for CT scan. Mamie Brambila case assembler returned the call confirming patient has authorization for CT scan of the neck, (auth # [id number]), hard copy to be faxed on Sunday. Spoke with Gisela from ER admitting requesting outpatient account #. She said she will confirm with business asst if verbal authorization is OK without hard copy. Awaiting for call back.
[2017-11-30] MEDS: FINASTERIDE (5 MG) 5 MG TABLET GT SCH (20:00)
[2017-11-30] MEDS: TOBRAMYCIN IV SCH (20:00)
[2017-11-30] MEDS: NS 0.9% IV SCH (20:00)
[2017-11-30 20:30] LABS: CREATININE 1.6 mg/dL (0.6-1.3)
--- NOTE | 2017-11-30 21:01 | NUR ---
Telephone consent for computed tomography of the neck with intravenous contrast for lower neck lesions/mass Addendum: 11/30/17 at 2104 by DAYANA CELIS RN given by the Fanny Khan witnessed by Jayy Mota LVN.Pt on NPO after midnight .
[2017-11-30] MEDS: DOCUSATE SODIUM LIQ 100 MG/10 ML UDC GT SCH (21:14)
[2017-11-30] MEDS: ASCORBIC ACID 500 MG TABLET GT SCH (21:14)
[2017-11-30] MEDS: MULTIVIT, IRON, MIN NO. 8, FA 1 TAB GT SCH (21:14)
[2017-11-30] MEDS: MAGNESIUM HYDROXIDE 30 ML UDC GT PRN (21:16)
[2017-11-30] MEDS: SENNOSIDES 8.6 MG TABLET GT SCH (21:16)
[2017-12-01 00:25] VITALS: BP 130/72
[2017-12-01] MEDS: IPRATROPIUM NEB FS 0.5 MG/2.5 ML AMPUL.NEB NEB SCH ×4 (00:59→19:30)
[2017-12-01] MEDS: ALBUTEROL FS 2.5 MG/3 ML VIAL.NEB NEB SCH ×4 (00:59→19:30)
[2017-12-01] MEDS: LEVOTHYROXINE SODIUM 125 MCG TABLET GT SCH (05:06)
[2017-12-01] MEDS: BACLOFEN (10 MG) 10 MG TABLET GT SCH ×3 (05:06→21:43)
[2017-12-01] MEDS: GLYCOPYRROLATE 1 MG TABLET GT SCH ×4 (05:06→23:24)
[2017-12-01] MEDS: MEROPENEM 500 MG in IV NS 0.9% 50 ML IV SCH ×2 (06:15→18:45)
[2017-12-01 07:44] VITALS: BP 103/64
--- NOTE | 2017-12-01 08:49 | NUR ---
Called Radiology department spoke with Purvi confirming schedule of CT scan today. According to Purvi the order is not clear and needs to verify it with the physician, gave telephone # of Dr. Read, stated he will call MD directly. Awaiting for his return call.
[2017-12-01] MEDS: AMIODARONE HCL 200 MG TABLET GT SCH (09:00)
[2017-12-01] MEDS: POLYVINYL ALCOHOL 15 ML BOTTLE EACHEYE SCH ×4 (09:00→21:43)
[2017-12-01] MEDS: HYDROGEN PEROXIDE 480 ML BOTTLE TP SCH ×2 (09:00→21:44)
[2017-12-01] MEDS: HEPARIN SODIUM, PORCINE 5000 UNITS/1 ML VIAL SQ SCH ×2 (09:00→21:44)
[2017-12-01] MEDS: OMEPRAZOLE 10 MG CAPSULE.DR GT SCH (09:00)
[2017-12-01] MEDS: NEOMY SULF/BACITRAC ZN/POLY 15 GM TUBE TP SCH ×2 (09:00→21:44)
[2017-12-01] MEDS: ACIDOPHILUS/BULGARICUS 1 EACH TAB.CHEW GT SCH (09:00)
[2017-12-01] MEDS: POLYETHYLENE GLYCOL 3350 17 GM POWD.PACK GT SCH (09:00)
[2017-12-01] MEDS: POTASSIUM CHLORIDE 20 MEQ/15 ML ML GT SCH (09:00)
--- NOTE | 2017-12-01 09:16 | NUR ---
According to radiology supervisor Purvi, he paged Dr. Read and he is waiting for return call. He wanted to clarify if the doctor would like to order CT without contrast or get another BUN/Creat with GFR since patient's Creat level on 11/30/17 is high at 1.[address] a call to Dr. Read's answering service spoke with Yessenia requesting MD to be paged.
--- NOTE | 2017-12-01 10:20 | NUR ---
Dr. Read returned the call and explained the protocol for CT scan orders with IV contrast. Patient's creat level 1.6 (11/30/17). Dr. Read ordered BMP to recheck BUN, Creat and GFR and requested to ask attending MD if it can be done without contrast. Orders carried out.
[2017-12-01 10:37] LABS: CALCIUM, SERUM 9.4 mg/dL (8.5-10.1); CREATININE 1.7 mg/dL (0.6-1.3); POTASSIUM 4.8 mmol/L (3.5-5.1)
--- NOTE | 2017-12-01 11:00 | NUR ---
Notified Dr. David resident's Creat level 1.[address] Celena Read wants to ask attending MD as well if CT to be done without contrast due to elevated creatinine level. According to Dr. David do CT of the neck without contrast. radiographer technologist [facility] notified.
--- NOTE | 2017-12-01 11:51 | NUR ---
Resident CT scan of the neck completed. Result pending. Resident's at bedside asking how long will it take to know the result. Inform Mrs Bradley to call in the morning to check if result is available.
[2017-12-01] MEDS: ACETAMINOPHEN 650 MG/20 ML UDC- FOR SA PATIENTS ONLY GT PRN (18:02)
--- NOTE | 2017-12-01 18:55 | NUR ---
Dr. Orestes Read made aware that CT of the neck was done and result available, he said he will see patient later on.
[2017-12-01 19:25] VITALS: BP 133/75
[2017-12-01] MEDS: TOBRAMYCIN IV SCH (20:00)
[2017-12-01] MEDS: FINASTERIDE (5 MG) 5 MG TABLET GT SCH (20:00)
[2017-12-01] MEDS: NS 0.9% IV SCH (20:00)
[2017-12-01] MEDS: ASCORBIC ACID 500 MG TABLET GT SCH (21:43)
[2017-12-01] MEDS: MULTIVIT, IRON, MIN NO. 8, FA 1 TAB GT SCH (21:43)
[2017-12-01] MEDS: DOCUSATE SODIUM LIQ 100 MG/10 ML UDC GT SCH (21:43)
[2017-12-01] MEDS: SENNOSIDES 8.6 MG TABLET GT SCH (21:44)
[2017-12-02] MEDS: IPRATROPIUM NEB FS 0.5 MG/2.5 ML AMPUL.NEB NEB SCH ×4 (00:37→20:09)
[2017-12-02] MEDS: ALBUTEROL FS 2.5 MG/3 ML VIAL.NEB NEB SCH ×4 (00:37→20:09)
[2017-12-02] MEDS: BACLOFEN (10 MG) 10 MG TABLET GT SCH ×3 (05:07→20:49)
[2017-12-02] MEDS: LEVOTHYROXINE SODIUM 125 MCG TABLET GT SCH (05:07)
[2017-12-02] MEDS: GLYCOPYRROLATE 1 MG TABLET GT SCH ×3 (05:07→18:00)
[2017-12-02] MEDS: MEROPENEM 500 MG in IV NS 0.9% 50 ML IV SCH ×2 (06:23→17:38)
[2017-12-02 08:00] VITALS: BP 125/78
[2017-12-02] MEDS: POLYVINYL ALCOHOL 15 ML BOTTLE EACHEYE SCH ×4 (09:21→20:48)
[2017-12-02] MEDS: OMEPRAZOLE 10 MG CAPSULE.DR GT SCH (09:22)
[2017-12-02] MEDS: AMIODARONE HCL 200 MG TABLET GT SCH (09:22)
[2017-12-02] MEDS: ACIDOPHILUS/BULGARICUS 1 EACH TAB.CHEW GT SCH (09:22)
[2017-12-02] MEDS: POLYETHYLENE GLYCOL 3350 17 GM POWD.PACK GT SCH (09:22)
[2017-12-02] MEDS: POTASSIUM CHLORIDE 20 MEQ/15 ML ML GT SCH (09:22)
[2017-12-02] MEDS: HEPARIN SODIUM, PORCINE 5000 UNITS/1 ML VIAL SQ SCH ×2 (09:23→20:51)
[2017-12-02] MEDS: NEOMY SULF/BACITRAC ZN/POLY 15 GM TUBE TP SCH ×2 (09:23→20:52)
[2017-12-02] MEDS: HYDROGEN PEROXIDE 480 ML BOTTLE TP SCH ×2 (09:23→20:52)
[2017-12-02] MEDS: RENAL NOVASOURCE 1,000 ML BOTTLE GT PRN (17:15)
[2017-12-02] MEDS: TOBRAMYCIN IV SCH (20:00)
[2017-12-02] MEDS: NS 0.9% IV SCH (20:00)
[2017-12-02 20:03] VITALS: BP 130/76
[2017-12-02] MEDS: FINASTERIDE (5 MG) 5 MG TABLET GT SCH (20:48)
[2017-12-02] MEDS: DOCUSATE SODIUM LIQ 100 MG/10 ML UDC GT SCH (20:49)
[2017-12-02] MEDS: ASCORBIC ACID 500 MG TABLET GT SCH (20:50)
[2017-12-02] MEDS: MULTIVIT, IRON, MIN NO. 8, FA 1 TAB GT SCH (20:50)
[2017-12-02] MEDS: SENNOSIDES 8.6 MG TABLET GT SCH (22:34)
[2017-12-03] MEDS: GLYCOPYRROLATE 1 MG TABLET GT SCH ×4 (00:01→18:11)
[2017-12-03] MEDS: IPRATROPIUM NEB FS 0.5 MG/2.5 ML AMPUL.NEB NEB SCH ×4 (01:11→19:30)
[2017-12-03] MEDS: ALBUTEROL FS 2.5 MG/3 ML VIAL.NEB NEB SCH ×4 (01:11→19:30)
[2017-12-03] MEDS: LEVOTHYROXINE SODIUM 125 MCG TABLET GT SCH (05:54)
[2017-12-03] MEDS: BACLOFEN (10 MG) 10 MG TABLET GT SCH ×3 (05:54→21:15)
[2017-12-03] MEDS: MEROPENEM 500 MG in IV NS 0.9% 50 ML IV SCH ×2 (06:00→18:00)
[2017-12-03 07:19] LABS: CREATININE 1.8 mg/dL (0.6-1.3); POTASSIUM 4.5 mmol/L (3.5-5.1)
[2017-12-03 07:22] LABS: BASOPHILS % (AUTO) 0.3 % (0.0-2.0); EOSINOPHILS % (AUTO) 2.6 % (0.0-6.0); HEMATOCRIT 31 % (39-51); LYMPHOCYTES # (AUTO) 2.4 /CMM (0.8-4.8); LYMPHOCYTES % (AUTO) 17.3 % (20.0-44.0); MEAN CORPUSCULAR HEMOGLOBIN 23 PG (26.0-33.0); MEAN CORPUSCULAR HGB CONC 32 g/dl (31.0-36.0); MEAN CORPUSCULAR VOLUME 71 fL (80-96); MONOCYTES # (AUTO) 1.1 /CMM (0.1-1.30); NEUTROPHILS % (AUTO) 71.8 % (43.0-81.0); PLATELET COUNT (AUTO) 521 /CMM (150-450); RED BLOOD CELL COUNT(AUTO) 4.32 MIL/uL (4.5-6.0); WHITE BLOOD COUNT (AUTO) 13.9 K/uL (4.3-11.0)
[2017-12-03] MEDS: POLYETHYLENE GLYCOL 3350 17 GM POWD.PACK GT SCH (09:00)
[2017-12-03] MEDS: HEPARIN SODIUM, PORCINE 5000 UNITS/1 ML VIAL SQ SCH ×2 (09:00→21:17)
[2017-12-03] MEDS: POTASSIUM CHLORIDE 20 MEQ/15 ML ML GT SCH (09:00)
[2017-12-03] MEDS: OMEPRAZOLE 10 MG CAPSULE.DR GT SCH (09:00)
[2017-12-03] MEDS: POLYVINYL ALCOHOL 15 ML BOTTLE EACHEYE SCH ×4 (09:00→21:14)
[2017-12-03] MEDS: HYDROGEN PEROXIDE 480 ML BOTTLE TP SCH ×2 (09:00→21:17)
[2017-12-03] MEDS: AMIODARONE HCL 200 MG TABLET GT SCH (09:00)
[2017-12-03] MEDS: NEOMY SULF/BACITRAC ZN/POLY 15 GM TUBE TP SCH ×2 (09:00→21:18)
[2017-12-03] MEDS: ACIDOPHILUS/BULGARICUS 1 EACH TAB.CHEW GT SCH (09:00)
[2017-12-03 09:01] VITALS: BP 122/70
[2017-12-03 09:38] LABS: NEUTROPHILS % (MANUAL) 72 (42-76)
[2017-12-03 09:39] LABS: BAND % (MANUAL) 2 % (0.0-5.0); LYMPHOCYTES % (MANUAL) 19 % (16-48); MONOCYTES % (MANUAL) 5 % (0-11.0)
[2017-12-03 09:40] LABS: EOSINOPHILS % (MANUAL) 2 % (0-4)
--- NOTE | 2017-12-03 11:52 | NUR ---
Seen by Dr. Paniagua. Relayed CT neck result to him. Showed him pt's left knee redness, no swelling noted. Pt occasionally has redness on the knee which resolves. No new order.
[2017-12-03] MEDS: NS 0.9% IV SCH (20:00)
[2017-12-03] MEDS: FINASTERIDE (5 MG) 5 MG TABLET GT SCH (20:00)
[2017-12-03] MEDS: TOBRAMYCIN IV SCH (20:00)
[2017-12-03 20:08] VITALS: BP 130/88
[2017-12-03] MEDS: MULTIVIT, IRON, MIN NO. 8, FA 1 TAB GT SCH (21:13)
[2017-12-03] MEDS: DOCUSATE SODIUM LIQ 100 MG/10 ML UDC GT SCH (21:14)
[2017-12-03] MEDS: ASCORBIC ACID 500 MG TABLET GT SCH (21:15)
[2017-12-03] MEDS: SENNOSIDES 8.6 MG TABLET GT SCH (21:18)
[2017-12-04] MEDS: GLYCOPYRROLATE 1 MG TABLET GT SCH ×5 (00:08→23:46)
[2017-12-04] MEDS: ALBUTEROL FS 2.5 MG/3 ML VIAL.NEB NEB SCH ×4 (01:39→19:36)
[2017-12-04] MEDS: IPRATROPIUM NEB FS 0.5 MG/2.5 ML AMPUL.NEB NEB SCH ×4 (01:39→19:36)
[2017-12-04] MEDS: LEVOTHYROXINE SODIUM 125 MCG TABLET GT SCH (05:41)
[2017-12-04] MEDS: BACLOFEN (10 MG) 10 MG TABLET GT SCH ×3 (05:41→20:54)
[2017-12-04] MEDS: MEROPENEM 500 MG in IV NS 0.9% 50 ML IV SCH ×2 (06:40→18:52)
[2017-12-04 07:56] VITALS: BP 106/62
[2017-12-04] MEDS: POLYVINYL ALCOHOL 15 ML BOTTLE EACHEYE SCH ×4 (09:00→20:54)
[2017-12-04] MEDS: POTASSIUM CHLORIDE 20 MEQ/15 ML ML GT SCH (09:00)
[2017-12-04] MEDS: AMIODARONE HCL 200 MG TABLET GT SCH (09:00)
[2017-12-04] MEDS: HEPARIN SODIUM, PORCINE 5000 UNITS/1 ML VIAL SQ SCH ×2 (09:00→20:57)
[2017-12-04] MEDS: POLYETHYLENE GLYCOL 3350 17 GM POWD.PACK GT SCH (09:00)
[2017-12-04] MEDS: HYDROGEN PEROXIDE 480 ML BOTTLE TP SCH ×2 (09:00→20:58)
[2017-12-04] MEDS: OMEPRAZOLE 10 MG CAPSULE.DR GT SCH (09:00)
[2017-12-04] MEDS: ACIDOPHILUS/BULGARICUS 1 EACH TAB.CHEW GT SCH (09:00)
[2017-12-04] MEDS: TOBRAMYCIN IV SCH (20:00)
[2017-12-04] MEDS: NS 0.9% IV SCH (20:00)
[2017-12-04] MEDS: FINASTERIDE (5 MG) 5 MG TABLET GT SCH (20:54)
[2017-12-04] MEDS: DOCUSATE SODIUM LIQ 100 MG/10 ML UDC GT SCH (20:54)
[2017-12-04] MEDS: MULTIVIT, IRON, MIN NO. 8, FA 1 TAB GT SCH (20:55)
[2017-12-04] MEDS: ASCORBIC ACID 500 MG TABLET GT SCH (20:57)
[2017-12-04] MEDS: SENNOSIDES 8.6 MG TABLET GT SCH (21:35)
[2017-12-05] MEDS: IPRATROPIUM NEB FS 0.5 MG/2.5 ML AMPUL.NEB NEB SCH ×4 (02:23→19:48)
[2017-12-05] MEDS: ALBUTEROL FS 2.5 MG/3 ML VIAL.NEB NEB SCH ×4 (02:23→19:48)
[2017-12-05] MEDS: RENAL NOVASOURCE 1,000 ML BOTTLE GT PRN (03:23)
[2017-12-05] MEDS: BACLOFEN (10 MG) 10 MG TABLET GT SCH ×3 (05:34→20:53)
[2017-12-05] MEDS: LEVOTHYROXINE SODIUM 125 MCG TABLET GT SCH (05:34)
[2017-12-05] MEDS: GLYCOPYRROLATE 1 MG TABLET GT SCH ×4 (05:34→23:27)
[2017-12-05] MEDS: MEROPENEM 500 MG in IV NS 0.9% 50 ML IV SCH ×2 (06:00→18:10)
[2017-12-05 07:36] VITALS: BP 140/85
[2017-12-05 07:38] VITALS: BP 95/62
[2017-12-05] MEDS: HEPARIN SODIUM, PORCINE 5000 UNITS/1 ML VIAL SQ SCH ×2 (09:00→20:53)
[2017-12-05] MEDS: HYDROGEN PEROXIDE 480 ML BOTTLE TP SCH ×2 (09:00→20:53)
[2017-12-05] MEDS: POLYVINYL ALCOHOL 15 ML BOTTLE EACHEYE SCH ×4 (09:17→20:53)
[2017-12-05] MEDS: POLYETHYLENE GLYCOL 3350 17 GM POWD.PACK GT SCH (09:18)
[2017-12-05] MEDS: POTASSIUM CHLORIDE 20 MEQ/15 ML ML GT SCH (09:18)
[2017-12-05] MEDS: AMIODARONE HCL 200 MG TABLET GT SCH (09:18)
[2017-12-05] MEDS: ACIDOPHILUS/BULGARICUS 1 EACH TAB.CHEW GT SCH (09:18)
[2017-12-05] MEDS: OMEPRAZOLE 10 MG CAPSULE.DR GT SCH (09:18)
[2017-12-05] MEDS: TOBRAMYCIN IV SCH (20:00)
[2017-12-05] MEDS: NS 0.9% IV SCH (20:00)
[2017-12-05 20:12] VITALS: BP 132/84
--- NOTE | 2017-12-05 20:28 | NUR ---
Patient seen by Millicent MAE new order to continue Merrem 500mg q 12hours x 7 more days and Tobramycin 100mg q 24 hours x 7 more days for increased WBC.Will carry out.
[2017-12-05] MEDS: DOCUSATE SODIUM LIQ 100 MG/10 ML UDC GT SCH (20:53)
[2017-12-05] MEDS: FINASTERIDE (5 MG) 5 MG TABLET GT SCH (20:53)
[2017-12-05] MEDS: MULTIVIT, IRON, MIN NO. 8, FA 1 TAB GT SCH (20:53)
[2017-12-05] MEDS: BACI/NEOM/POLY B OINT PKT 1 UDPKT PACKET TP SCH (20:53)
[2017-12-05] MEDS: ASCORBIC ACID 500 MG TABLET GT SCH (20:53)
[2017-12-05] MEDS: SENNOSIDES 8.6 MG TABLET GT SCH (22:25)
[2017-12-06] MEDS: ALBUTEROL FS 2.5 MG/3 ML VIAL.NEB NEB SCH ×4 (01:27→19:24)
[2017-12-06] MEDS: IPRATROPIUM NEB FS 0.5 MG/2.5 ML AMPUL.NEB NEB SCH ×4 (01:27→19:24)
[2017-12-06] MEDS: BACLOFEN (10 MG) 10 MG TABLET GT SCH ×3 (05:25→21:19)
[2017-12-06] MEDS: LEVOTHYROXINE SODIUM 125 MCG TABLET GT SCH (05:25)
[2017-12-06] MEDS: GLYCOPYRROLATE 1 MG TABLET GT SCH ×4 (05:25→23:43)
[2017-12-06] MEDS: MEROPENEM 500 MG in IV NS 0.9% 50 ML IV SCH (05:48)
[2017-12-06 07:53] VITALS: BP 133/85
[2017-12-06] MEDS ORDERED: ZINC OXIDE 30 GM TUBE TP PRN (08:30)
[2017-12-06] MEDS ORDERED: CLOTRIMAZOLE 1% 15 GM TUBE TP PRN (08:30)
[2017-12-06] MEDS: HEPARIN SODIUM, PORCINE 5000 UNITS/1 ML VIAL SQ SCH ×2 (09:55→21:19)
[2017-12-06] MEDS: POLYVINYL ALCOHOL 15 ML BOTTLE EACHEYE SCH ×4 (09:55→21:19)
[2017-12-06] MEDS: ACIDOPHILUS/BULGARICUS 1 EACH TAB.CHEW GT SCH (09:56)
[2017-12-06] MEDS: POTASSIUM CHLORIDE 20 MEQ/15 ML ML GT SCH (09:56)
[2017-12-06] MEDS: HYDROGEN PEROXIDE 480 ML BOTTLE TP SCH ×2 (09:56→21:20)
[2017-12-06] MEDS: AMIODARONE HCL 200 MG TABLET GT SCH (09:56)
[2017-12-06] MEDS: CLOTRIMAZOLE 1% 15 GM TUBE TP SCH ×2 (09:56→21:20)
[2017-12-06] MEDS: OMEPRAZOLE 10 MG CAPSULE.DR GT SCH (09:56)
[2017-12-06] MEDS: POLYETHYLENE GLYCOL 3350 17 GM POWD.PACK GT SCH (09:56)
[2017-12-06] MEDS: BACI/NEOM/POLY B OINT PKT 1 UDPKT PACKET TP SCH ×2 (09:57→21:20)
[2017-12-06] MEDS: ZINC OXIDE 30 GM TUBE TP SCH ×2 (09:57→21:20)
[2017-12-06] MEDS: ACETAMINOPHEN 650 MG/20 ML UDC- FOR SA PATIENTS ONLY GT PRN (11:10)
[2017-12-06] MEDS: RENAL NOVASOURCE 1,000 ML BOTTLE GT PRN (18:11)
[2017-12-06 19:47] VITALS: BP 128/85
[2017-12-06] MEDS: FINASTERIDE (5 MG) 5 MG TABLET GT SCH (20:00)
[2017-12-06 20:20] LABS: CREATININE 1.8 mg/dL (0.6-1.3)
[2017-12-06] MEDS: TOBRAMYCIN IV SCH (20:21)
[2017-12-06] MEDS: NS 0.9% IV SCH (20:21)
[2017-12-06] MEDS: MULTIVIT, IRON, MIN NO. 8, FA 1 TAB GT SCH (21:19)
[2017-12-06] MEDS: ASCORBIC ACID 500 MG TABLET GT SCH (21:19)
[2017-12-06] MEDS: DOCUSATE SODIUM LIQ 100 MG/10 ML UDC GT SCH (21:19)
[2017-12-06] MEDS: SENNOSIDES 8.6 MG TABLET GT SCH (21:20)
[2017-12-06] MEDS: MAGNESIUM HYDROXIDE 30 ML UDC GT PRN (21:20)
[2017-12-07] MEDS: ALBUTEROL FS 2.5 MG/3 ML VIAL.NEB NEB SCH ×4 (00:57→19:40)
[2017-12-07] MEDS: IPRATROPIUM NEB FS 0.5 MG/2.5 ML AMPUL.NEB NEB SCH ×4 (00:57→19:40)
[2017-12-07] MEDS: BACLOFEN (10 MG) 10 MG TABLET GT SCH ×3 (05:22→21:14)
[2017-12-07] MEDS: GLYCOPYRROLATE 1 MG TABLET GT SCH ×4 (05:22→23:21)
[2017-12-07] MEDS: LEVOTHYROXINE SODIUM 125 MCG TABLET GT SCH (05:22)
[2017-12-07] MEDS: MEROPENEM 500 MG in IV NS 0.9% 50 ML IV SCH ×3 (06:00→17:48)
[2017-12-07 07:33] VITALS: BP 121/73
[2017-12-07] MEDS: POLYVINYL ALCOHOL 15 ML BOTTLE EACHEYE SCH ×4 (08:30→21:14)
[2017-12-07] MEDS: POLYETHYLENE GLYCOL 3350 17 GM POWD.PACK GT SCH (08:30)
[2017-12-07] MEDS: ACIDOPHILUS/BULGARICUS 1 EACH TAB.CHEW GT SCH (08:30)
[2017-12-07] MEDS: POTASSIUM CHLORIDE 20 MEQ/15 ML ML GT SCH (08:30)
[2017-12-07] MEDS: AMIODARONE HCL 200 MG TABLET GT SCH (08:30)
[2017-12-07] MEDS: HEPARIN SODIUM, PORCINE 5000 UNITS/1 ML VIAL SQ SCH ×2 (08:31→21:14)
[2017-12-07] MEDS: HYDROGEN PEROXIDE 480 ML BOTTLE TP SCH ×2 (08:31→21:14)
[2017-12-07] MEDS: OMEPRAZOLE 10 MG CAPSULE.DR GT SCH (08:31)
[2017-12-07] MEDS: BACI/NEOM/POLY B OINT PKT 1 UDPKT PACKET TP SCH ×2 (08:31→21:14)
[2017-12-07] MEDS: CLOTRIMAZOLE 1% 15 GM TUBE TP SCH ×2 (08:31→21:14)
[2017-12-07] MEDS: ZINC OXIDE 30 GM TUBE TP SCH ×2 (08:31→21:15)
[2017-12-07] MEDS: ACETAMINOPHEN 650 MG/20 ML UDC- FOR SA PATIENTS ONLY GT PRN (12:21)
--- NOTE | 2017-12-07 13:00 | NUR ---
SEEN BY DR JONO DE LEON AND ORDERED EENT CONSULT(DR LEAL) FOR THE PT'S LOWER NECK MASS/LESION TO R/O ABSCESS.NOTIFIED DR EATON WHO AGREED FOR THE REFERRAL.
--- NOTE | 2017-12-07 16:03 | NUR ---
call made to [facility] office and let them know about the referral from .They told that dont go to [facility]. is the functional architect doctor.will follow up with .continue to monitor.
[2017-12-07] MEDS: FINASTERIDE (5 MG) 5 MG TABLET GT SCH (20:00)
[2017-12-07] MEDS: DOCUSATE SODIUM LIQ 100 MG/10 ML UDC GT SCH (21:14)
[2017-12-07] MEDS: ASCORBIC ACID 500 MG TABLET GT SCH (21:14)
[2017-12-07] MEDS: MULTIVIT, IRON, MIN NO. 8, FA 1 TAB GT SCH (21:14)
[2017-12-07] MEDS: MAGNESIUM HYDROXIDE 30 ML UDC GT PRN (21:15)
[2017-12-07] MEDS: RENAL NOVASOURCE 1,000 ML BOTTLE GT PRN (21:15)
[2017-12-07] MEDS: SENNOSIDES 8.6 MG TABLET GT SCH (21:15)
[2017-12-07 23:33] VITALS: BP 154/80
[2017-12-08] MEDS: IPRATROPIUM NEB FS 0.5 MG/2.5 ML AMPUL.NEB NEB SCH ×4 (01:13→20:28)
[2017-12-08] MEDS: ALBUTEROL FS 2.5 MG/3 ML VIAL.NEB NEB SCH ×4 (01:13→20:28)
[2017-12-08] MEDS: LEVOTHYROXINE SODIUM 125 MCG TABLET GT SCH (05:06)
[2017-12-08] MEDS: BACLOFEN (10 MG) 10 MG TABLET GT SCH ×3 (05:06→20:49)
[2017-12-08] MEDS: GLYCOPYRROLATE 1 MG TABLET GT SCH ×3 (05:06→17:31)
[2017-12-08] MEDS: MEROPENEM 500 MG in IV NS 0.9% 50 ML IV SCH ×2 (06:02→17:58)
[2017-12-08 07:43] VITALS: BP 128/73
[2017-12-08] MEDS: HEPARIN SODIUM, PORCINE 5000 UNITS/1 ML VIAL SQ SCH ×2 (09:18→20:49)
[2017-12-08] MEDS: POLYVINYL ALCOHOL 15 ML BOTTLE EACHEYE SCH ×4 (09:18→20:49)
[2017-12-08] MEDS: ACIDOPHILUS/BULGARICUS 1 EACH TAB.CHEW GT SCH (09:19)
[2017-12-08] MEDS: HYDROGEN PEROXIDE 480 ML BOTTLE TP SCH ×2 (09:19→20:49)
[2017-12-08] MEDS: OMEPRAZOLE 10 MG CAPSULE.DR GT SCH (09:19)
[2017-12-08] MEDS: POTASSIUM CHLORIDE 20 MEQ/15 ML ML GT SCH (09:19)
[2017-12-08] MEDS: ZINC OXIDE 30 GM TUBE TP SCH ×2 (09:19→20:50)
[2017-12-08] MEDS: BACI/NEOM/POLY B OINT PKT 1 UDPKT PACKET TP SCH ×2 (09:19→20:50)
[2017-12-08] MEDS: POLYETHYLENE GLYCOL 3350 17 GM POWD.PACK GT SCH (09:19)
[2017-12-08] MEDS: AMIODARONE HCL 200 MG TABLET GT SCH (09:19)
[2017-12-08] MEDS: CLOTRIMAZOLE 1% 15 GM TUBE TP SCH ×2 (09:19→20:49)
[2017-12-08] MEDS: ACETAMINOPHEN 650 MG/20 ML UDC- FOR SA PATIENTS ONLY GT PRN (12:55)
[2017-12-08] MEDS: TOBRAMYCIN IV SCH (20:00)
[2017-12-08] MEDS: NS 0.9% IV SCH (20:00)
[2017-12-08] MEDS: FINASTERIDE (5 MG) 5 MG TABLET GT SCH (20:49)
[2017-12-08] MEDS: ASCORBIC ACID 500 MG TABLET GT SCH (20:49)
[2017-12-08] MEDS: DOCUSATE SODIUM LIQ 100 MG/10 ML UDC GT SCH (20:49)
[2017-12-08] MEDS: MULTIVIT, IRON, MIN NO. 8, FA 1 TAB GT SCH (20:49)
[2017-12-08] MEDS: SENNOSIDES 8.6 MG TABLET GT SCH (21:19)
[2017-12-09] MEDS: GLYCOPYRROLATE 1 MG TABLET GT SCH ×4 (00:10→18:09)
[2017-12-09 00:14] VITALS: BP 111/69
[2017-12-09] MEDS: IPRATROPIUM NEB FS 0.5 MG/2.5 ML AMPUL.NEB NEB SCH ×4 (02:18→19:52)
[2017-12-09] MEDS: ALBUTEROL FS 2.5 MG/3 ML VIAL.NEB NEB SCH ×4 (02:18→19:52)
[2017-12-09] MEDS: RENAL NOVASOURCE 1,000 ML BOTTLE GT PRN (05:12)
[2017-12-09] MEDS: LEVOTHYROXINE SODIUM 125 MCG TABLET GT SCH (05:12)
[2017-12-09] MEDS: MAGNESIUM HYDROXIDE 30 ML UDC GT PRN (05:12)
[2017-12-09] MEDS: BACLOFEN (10 MG) 10 MG TABLET GT SCH ×3 (05:12→21:19)
[2017-12-09] MEDS: MEROPENEM 500 MG in IV NS 0.9% 50 ML IV SCH ×2 (05:20→17:18)
[2017-12-09 07:59] VITALS: BP 152/82
[2017-12-09] MEDS: AMIODARONE HCL 200 MG TABLET GT SCH (08:43)
[2017-12-09] MEDS: POLYVINYL ALCOHOL 15 ML BOTTLE EACHEYE SCH ×4 (08:43→21:18)
[2017-12-09] MEDS: OMEPRAZOLE 10 MG CAPSULE.DR GT SCH (08:44)
[2017-12-09] MEDS: ACIDOPHILUS/BULGARICUS 1 EACH TAB.CHEW GT SCH (08:44)
[2017-12-09] MEDS: POLYETHYLENE GLYCOL 3350 17 GM POWD.PACK GT SCH (08:44)
[2017-12-09] MEDS: POTASSIUM CHLORIDE 20 MEQ/15 ML ML GT SCH (08:44)
[2017-12-09] MEDS: HYDROGEN PEROXIDE 480 ML BOTTLE TP SCH ×2 (08:46→21:22)
[2017-12-09] MEDS: HEPARIN SODIUM, PORCINE 5000 UNITS/1 ML VIAL SQ SCH ×2 (08:46→21:20)
[2017-12-09] MEDS: BACI/NEOM/POLY B OINT PKT 1 UDPKT PACKET TP SCH ×2 (09:00→21:22)
[2017-12-09] MEDS: CLOTRIMAZOLE 1% 15 GM TUBE TP SCH ×2 (09:00→21:22)
[2017-12-09] MEDS: ZINC OXIDE 30 GM TUBE TP SCH ×2 (09:00→21:22)
--- NOTE | 2017-12-09 13:45 | NUR ---
[facility]patient tolerated well,no signs and symptoms of respiratory distress,vital signs checked and stable.RT and RN was there at bedside.Patient is stable and comfortable.
[2017-12-09] MEDS: FINASTERIDE (5 MG) 5 MG TABLET GT SCH (20:00)
[2017-12-09 20:07] VITALS: BP 115/75
[2017-12-09] MEDS: MULTIVIT, IRON, MIN NO. 8, FA 1 TAB GT SCH (21:18)
[2017-12-09] MEDS: ASCORBIC ACID 500 MG TABLET GT SCH (21:19)
[2017-12-09] MEDS: DOCUSATE SODIUM LIQ 100 MG/10 ML UDC GT SCH (21:19)
[2017-12-09] MEDS: SENNOSIDES 8.6 MG TABLET GT SCH (21:22)
[2017-12-10] MEDS: GLYCOPYRROLATE 1 MG TABLET GT SCH ×5 (00:26→23:23)
[2017-12-10] MEDS: ALBUTEROL FS 2.5 MG/3 ML VIAL.NEB NEB SCH ×4 (01:24→20:02)
[2017-12-10] MEDS: IPRATROPIUM NEB FS 0.5 MG/2.5 ML AMPUL.NEB NEB SCH ×4 (01:24→20:02)
[2017-12-10] MEDS: RENAL NOVASOURCE 1,000 ML BOTTLE GT PRN (05:45)
[2017-12-10] MEDS: LEVOTHYROXINE SODIUM 125 MCG TABLET GT SCH (05:46)
[2017-12-10] MEDS: BACLOFEN (10 MG) 10 MG TABLET GT SCH ×3 (05:46→20:24)
[2017-12-10] MEDS: MEROPENEM 500 MG in IV NS 0.9% 50 ML IV SCH ×2 (06:00→18:00)
[2017-12-10] MEDS: POLYVINYL ALCOHOL 15 ML BOTTLE EACHEYE SCH ×4 (09:47→20:24)
[2017-12-10] MEDS: ACIDOPHILUS/BULGARICUS 1 EACH TAB.CHEW GT SCH (09:48)
[2017-12-10] MEDS: POLYETHYLENE GLYCOL 3350 17 GM POWD.PACK GT SCH (09:48)
[2017-12-10] MEDS: OMEPRAZOLE 10 MG CAPSULE.DR GT SCH (09:48)
[2017-12-10] MEDS: AMIODARONE HCL 200 MG TABLET GT SCH (09:48)
[2017-12-10] MEDS: POTASSIUM CHLORIDE 20 MEQ/15 ML ML GT SCH (09:48)
[2017-12-10] MEDS: HYDROGEN PEROXIDE 480 ML BOTTLE TP SCH ×2 (09:49→20:25)
[2017-12-10] MEDS: HEPARIN SODIUM, PORCINE 5000 UNITS/1 ML VIAL SQ SCH ×2 (09:49→20:25)
[2017-12-10] MEDS: BACI/NEOM/POLY B OINT PKT 1 UDPKT PACKET TP SCH ×2 (09:58→20:25)
[2017-12-10] MEDS: ZINC OXIDE 30 GM TUBE TP SCH ×2 (09:58→20:25)
[2017-12-10] MEDS: CLOTRIMAZOLE 1% 15 GM TUBE TP SCH ×2 (09:58→20:25)
--- NOTE | 2017-12-10 10:45 | NUR ---
Seen by Dr. Paniagua. Notified him that Dr. Elizabeth (ENT) said he does not see patients in [facility] and Dr. España has also not been coming. Dr. Paniagua said he will find out which ENT can see pt.
--- NOTE | 2017-12-10 14:00 | NUR ---
Notified Dr. Abdifatah Read that ENT has not seen the pt yet. Notified him that Dr. Elizabeth said he does not come to see pt in [facility] and that the ENT who usually comes to [facility] has not been coming as well. Dr. Paniagua said he will check who can see pt. Dr. Abdifatah Read said the reason he wants an ENT to see the pt is because he does not do surgery on the areas where the mass/cancer has metastasized.
[2017-12-10] MEDS: TOBRAMYCIN IV SCH (20:00)
[2017-12-10] MEDS: NS 0.9% IV SCH (20:00)
[2017-12-10 20:14] VITALS: BP 129/72
[2017-12-10] MEDS: DOCUSATE SODIUM LIQ 100 MG/10 ML UDC GT SCH (20:24)
[2017-12-10] MEDS: FINASTERIDE (5 MG) 5 MG TABLET GT SCH (20:24)
[2017-12-10] MEDS: ASCORBIC ACID 500 MG TABLET GT SCH (20:24)
[2017-12-10] MEDS: MULTIVIT, IRON, MIN NO. 8, FA 1 TAB GT SCH (20:24)
[2017-12-10] MEDS: SENNOSIDES 8.6 MG TABLET GT SCH (22:29)
[2017-12-11] MEDS: IPRATROPIUM NEB FS 0.5 MG/2.5 ML AMPUL.NEB NEB SCH ×4 (01:49→20:04)
[2017-12-11] MEDS: ALBUTEROL FS 2.5 MG/3 ML VIAL.NEB NEB SCH ×4 (01:49→20:04)
[2017-12-11] MEDS: GLYCOPYRROLATE 1 MG TABLET GT SCH ×3 (05:08→17:37)
[2017-12-11] MEDS: LEVOTHYROXINE SODIUM 125 MCG TABLET GT SCH (05:08)
[2017-12-11] MEDS: BACLOFEN (10 MG) 10 MG TABLET GT SCH ×3 (05:08→21:05)
[2017-12-11] MEDS: MEROPENEM 500 MG in IV NS 0.9% 50 ML IV SCH ×2 (06:00→18:00)
[2017-12-11 08:00] VITALS: BP 157/90
[2017-12-11] MEDS: POLYETHYLENE GLYCOL 3350 17 GM POWD.PACK GT SCH (08:42)
[2017-12-11] MEDS: AMIODARONE HCL 200 MG TABLET GT SCH (08:42)
[2017-12-11] MEDS: ACIDOPHILUS/BULGARICUS 1 EACH TAB.CHEW GT SCH (08:42)
[2017-12-11] MEDS: POLYVINYL ALCOHOL 15 ML BOTTLE EACHEYE SCH ×4 (08:42→21:04)
[2017-12-11] MEDS: OMEPRAZOLE 10 MG CAPSULE.DR GT SCH (08:42)
[2017-12-11] MEDS: POTASSIUM CHLORIDE 20 MEQ/15 ML ML GT SCH (08:42)
[2017-12-11] MEDS: HEPARIN SODIUM, PORCINE 5000 UNITS/1 ML VIAL SQ SCH ×2 (08:44→21:07)
[2017-12-11] MEDS: HYDROGEN PEROXIDE 480 ML BOTTLE TP SCH ×2 (08:45→21:07)
[2017-12-11] MEDS: ZINC OXIDE 30 GM TUBE TP SCH ×2 (08:45→21:08)
[2017-12-11] MEDS: CLOTRIMAZOLE 1% 15 GM TUBE TP SCH ×2 (08:45→21:07)
[2017-12-11] MEDS: BACI/NEOM/POLY B OINT PKT 1 UDPKT PACKET TP SCH ×2 (08:45→21:08)
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
--- NOTE | 2017-12-11 11:59 | NUR ---
Informed resident's about IDT meeting on December 21, 2017. She stated that she is up to date and will not be attending the meeting next week. SW informed her that she will not be available from December 17-December 21 and she acknowledged.
[2017-12-11] MEDS: RENAL NOVASOURCE 1,000 ML BOTTLE GT PRN (12:28)
[2017-12-11 19:47] VITALS: BP 121/66
[2017-12-11] MEDS: FINASTERIDE (5 MG) 5 MG TABLET GT SCH (20:00)
[2017-12-11] MEDS: MULTIVIT, IRON, MIN NO. 8, FA 1 TAB GT SCH (21:04)
[2017-12-11] MEDS: ASCORBIC ACID 500 MG TABLET GT SCH (21:05)
[2017-12-11] MEDS: DOCUSATE SODIUM LIQ 100 MG/10 ML UDC GT SCH (21:05)
[2017-12-11] MEDS: SENNOSIDES 8.6 MG TABLET GT SCH (21:09)
[2017-12-12] MEDS: GLYCOPYRROLATE 1 MG TABLET GT SCH ×5 (00:35→23:48)
[2017-12-12] MEDS: IPRATROPIUM NEB FS 0.5 MG/2.5 ML AMPUL.NEB NEB SCH ×4 (02:08→20:29)
[2017-12-12] MEDS: ALBUTEROL FS 2.5 MG/3 ML VIAL.NEB NEB SCH ×4 (02:08→20:29)
[2017-12-12] MEDS: LEVOTHYROXINE SODIUM 125 MCG TABLET GT SCH (05:57)
[2017-12-12] MEDS: BACLOFEN (10 MG) 10 MG TABLET GT SCH ×3 (05:57→20:34)
[2017-12-12] MEDS: MEROPENEM 500 MG in IV NS 0.9% 50 ML IV SCH ×2 (06:00→18:59)
[2017-12-12 08:20] VITALS: BP 153/86
[2017-12-12] MEDS: AMIODARONE HCL 200 MG TABLET GT SCH (09:40)
[2017-12-12] MEDS: POLYVINYL ALCOHOL 15 ML BOTTLE EACHEYE SCH ×4 (09:40→20:34)
[2017-12-12] MEDS: POTASSIUM CHLORIDE 20 MEQ/15 ML ML GT SCH (09:41)
[2017-12-12] MEDS: POLYETHYLENE GLYCOL 3350 17 GM POWD.PACK GT SCH (09:41)
[2017-12-12] MEDS: OMEPRAZOLE 10 MG CAPSULE.DR GT SCH (09:41)
[2017-12-12] MEDS: ACIDOPHILUS/BULGARICUS 1 EACH TAB.CHEW GT SCH (09:41)
[2017-12-12] MEDS: HEPARIN SODIUM, PORCINE 5000 UNITS/1 ML VIAL SQ SCH ×2 (09:44→20:34)
[2017-12-12] MEDS: CLOTRIMAZOLE 1% 15 GM TUBE TP SCH ×2 (09:45→20:34)
[2017-12-12] MEDS: BACI/NEOM/POLY B OINT PKT 1 UDPKT PACKET TP SCH ×2 (09:45→20:34)
[2017-12-12] MEDS: ZINC OXIDE 30 GM TUBE TP SCH ×2 (09:45→20:34)
[2017-12-12] MEDS: HYDROGEN PEROXIDE 480 ML BOTTLE TP SCH ×2 (09:45→20:34)
[2017-12-12] MEDS: RENAL NOVASOURCE 1,000 ML BOTTLE GT PRN (17:45)
[2017-12-12 20:00] VITALS: BP 123/69
[2017-12-12] MEDS: MULTIVIT, IRON, MIN NO. 8, FA 1 TAB GT SCH (20:34)
[2017-12-12] MEDS: ASCORBIC ACID 500 MG TABLET GT SCH (20:34)
[2017-12-12] MEDS: FINASTERIDE (5 MG) 5 MG TABLET GT SCH (20:34)
[2017-12-12] MEDS: DOCUSATE SODIUM LIQ 100 MG/10 ML UDC GT SCH (20:34)
[2017-12-12] MEDS: SENNOSIDES 8.6 MG TABLET GT SCH (21:05)
[2017-12-13] MEDS: ALBUTEROL FS 2.5 MG/3 ML VIAL.NEB NEB SCH ×4 (02:10→20:26)
[2017-12-13] MEDS: IPRATROPIUM NEB FS 0.5 MG/2.5 ML AMPUL.NEB NEB SCH ×4 (02:10→20:26)
[2017-12-13] MEDS: LEVOTHYROXINE SODIUM 125 MCG TABLET GT SCH (05:40)
[2017-12-13] MEDS: BACLOFEN (10 MG) 10 MG TABLET GT SCH ×3 (05:40→20:55)
[2017-12-13] MEDS: GLYCOPYRROLATE 1 MG TABLET GT SCH ×4 (05:40→23:47)
[2017-12-13 07:39] VITALS: BP 127/95
[2017-12-13] MEDS: AMIODARONE HCL 200 MG TABLET GT SCH (09:49)
[2017-12-13] MEDS: POLYVINYL ALCOHOL 15 ML BOTTLE EACHEYE SCH ×4 (09:49→20:54)
[2017-12-13] MEDS: POLYETHYLENE GLYCOL 3350 17 GM POWD.PACK GT SCH (09:50)
[2017-12-13] MEDS: POTASSIUM CHLORIDE 20 MEQ/15 ML ML GT SCH (09:50)
[2017-12-13] MEDS: ACIDOPHILUS/BULGARICUS 1 EACH TAB.CHEW GT SCH (09:50)
[2017-12-13] MEDS: OMEPRAZOLE 10 MG CAPSULE.DR GT SCH (09:51)
[2017-12-13] MEDS: ZINC OXIDE 30 GM TUBE TP SCH ×2 (09:51→20:57)
[2017-12-13] MEDS: HYDROGEN PEROXIDE 480 ML BOTTLE TP SCH ×2 (09:51→20:57)
[2017-12-13] MEDS: HEPARIN SODIUM, PORCINE 5000 UNITS/1 ML VIAL SQ SCH ×2 (09:51→20:57)
[2017-12-13] MEDS: CLOTRIMAZOLE 1% 15 GM TUBE TP SCH ×2 (09:52→20:57)
[2017-12-13 20:02] VITALS: BP 109/67
[2017-12-13] MEDS: DOCUSATE SODIUM LIQ 100 MG/10 ML UDC GT SCH (20:54)
[2017-12-13] MEDS: FINASTERIDE (5 MG) 5 MG TABLET GT SCH (20:54)
[2017-12-13] MEDS: MULTIVIT, IRON, MIN NO. 8, FA 1 TAB GT SCH (20:55)
[2017-12-13] MEDS: ASCORBIC ACID 500 MG TABLET GT SCH (20:55)
[2017-12-13] MEDS: SENNOSIDES 8.6 MG TABLET GT SCH (21:12)
[2017-12-13] MEDS: RENAL NOVASOURCE 1,000 ML BOTTLE GT PRN (22:01)
[2017-12-14] MEDS: IPRATROPIUM NEB FS 0.5 MG/2.5 ML AMPUL.NEB NEB SCH ×4 (01:08→20:12)
[2017-12-14] MEDS: ALBUTEROL FS 2.5 MG/3 ML VIAL.NEB NEB SCH ×4 (01:09→20:12)
[2017-12-14] MEDS: GLYCOPYRROLATE 1 MG TABLET GT SCH ×4 (05:12→23:38)
[2017-12-14] MEDS: LEVOTHYROXINE SODIUM 125 MCG TABLET GT SCH (05:14)
[2017-12-14] MEDS: BACLOFEN (10 MG) 10 MG TABLET GT SCH ×3 (05:14→21:05)
[2017-12-14 07:32] VITALS: BP 127/72
[2017-12-14] MEDS: POLYETHYLENE GLYCOL 3350 17 GM POWD.PACK GT SCH (09:00)
[2017-12-14] MEDS: POTASSIUM CHLORIDE 20 MEQ/15 ML ML GT SCH (09:00)
[2017-12-14] MEDS: CLOTRIMAZOLE 1% 15 GM TUBE TP SCH ×2 (09:00→21:06)
[2017-12-14] MEDS: HYDROGEN PEROXIDE 480 ML BOTTLE TP SCH ×2 (09:00→21:06)
[2017-12-14] MEDS: OMEPRAZOLE 10 MG CAPSULE.DR GT SCH (09:00)
[2017-12-14] MEDS: ACIDOPHILUS/BULGARICUS 1 EACH TAB.CHEW GT SCH (09:00)
[2017-12-14] MEDS: ZINC OXIDE 30 GM TUBE TP SCH ×2 (09:00→21:06)
[2017-12-14] MEDS: AMIODARONE HCL 200 MG TABLET GT SCH (09:59)
[2017-12-14] MEDS: POLYVINYL ALCOHOL 15 ML BOTTLE EACHEYE SCH ×4 (09:59→21:03)
[2017-12-14] MEDS: HEPARIN SODIUM, PORCINE 5000 UNITS/1 ML VIAL SQ SCH ×2 (10:17→21:00)
--- NOTE | 2017-12-14 13:38 | NUR ---
IGOR called the office of ENT Dr. Elizabeth ([phone]) and spoke with Mel. She noted that Dr. Elizabeth does not come to [facility]. Subacute marketing and promotions manager notified.
--- NOTE | 2017-12-14 19:04 | NUR ---
SUBACUTE RN NOTES JESA EDGER MACHINE SETTER NOTIFIED REGARDING PATIENTS ALREADY COMPLETED IV ANTIBIOTIC THERAPY.
[2017-12-14 19:58] VITALS: BP 122/82
[2017-12-14] MEDS: FINASTERIDE (5 MG) 5 MG TABLET GT SCH (20:00)
[2017-12-14] MEDS: DOCUSATE SODIUM LIQ 100 MG/10 ML UDC GT SCH (21:04)
[2017-12-14] MEDS: MULTIVIT, IRON, MIN NO. 8, FA 1 TAB GT SCH (21:06)
[2017-12-14] MEDS: ASCORBIC ACID 500 MG TABLET GT SCH (21:06)
[2017-12-14] MEDS: SENNOSIDES 8.6 MG TABLET GT SCH (21:07)
[2017-12-15] MEDS: ALBUTEROL FS 2.5 MG/3 ML VIAL.NEB NEB SCH ×4 (01:54→19:58)
[2017-12-15] MEDS: IPRATROPIUM NEB FS 0.5 MG/2.5 ML AMPUL.NEB NEB SCH ×4 (01:54→19:58)
[2017-12-15] MEDS: BACLOFEN (10 MG) 10 MG TABLET GT SCH ×3 (05:00→20:34)
[2017-12-15] MEDS: LEVOTHYROXINE SODIUM 125 MCG TABLET GT SCH (06:28)
[2017-12-15] MEDS: GLYCOPYRROLATE 1 MG TABLET GT SCH ×4 (06:28→23:15)
[2017-12-15] MEDS: RENAL NOVASOURCE 1,000 ML BOTTLE GT PRN (07:34)
[2017-12-15 07:52] VITALS: BP 125/63
[2017-12-15] MEDS: OMEPRAZOLE 10 MG CAPSULE.DR GT SCH (09:00)
[2017-12-15] MEDS: POLYVINYL ALCOHOL 15 ML BOTTLE EACHEYE SCH ×4 (09:00→20:34)
[2017-12-15] MEDS: AMIODARONE HCL 200 MG TABLET GT SCH (09:00)
[2017-12-15] MEDS: POTASSIUM CHLORIDE 20 MEQ/15 ML ML GT SCH (09:00)
[2017-12-15] MEDS: HYDROGEN PEROXIDE 480 ML BOTTLE TP SCH ×2 (09:00→20:35)
[2017-12-15] MEDS: HEPARIN SODIUM, PORCINE 5000 UNITS/1 ML VIAL SQ SCH ×2 (09:00→20:34)
[2017-12-15] MEDS: POLYETHYLENE GLYCOL 3350 17 GM POWD.PACK GT SCH (09:00)
[2017-12-15] MEDS: ACIDOPHILUS/BULGARICUS 1 EACH TAB.CHEW GT SCH (09:00)
[2017-12-15] MEDS: CLOTRIMAZOLE 1% 15 GM TUBE TP SCH ×2 (09:00→20:35)
[2017-12-15] MEDS: ZINC OXIDE 30 GM TUBE TP SCH ×2 (09:00→20:35)
[2017-12-15 20:27] VITALS: BP 129/78
[2017-12-15] MEDS: MULTIVIT, IRON, MIN NO. 8, FA 1 TAB GT SCH (20:34)
[2017-12-15] MEDS: DOCUSATE SODIUM LIQ 100 MG/10 ML UDC GT SCH (20:34)
[2017-12-15] MEDS: FINASTERIDE (5 MG) 5 MG TABLET GT SCH (20:34)
[2017-12-15] MEDS: ASCORBIC ACID 500 MG TABLET GT SCH (20:34)
[2017-12-15] MEDS: SENNOSIDES 8.6 MG TABLET GT SCH (21:47)
[2017-12-16] MEDS: IPRATROPIUM NEB FS 0.5 MG/2.5 ML AMPUL.NEB NEB SCH ×4 (01:32→19:52)
[2017-12-16] MEDS: ALBUTEROL FS 2.5 MG/3 ML VIAL.NEB NEB SCH ×4 (01:32→19:52)
[2017-12-16] MEDS: BACLOFEN (10 MG) 10 MG TABLET GT SCH ×3 (05:41→21:14)
[2017-12-16] MEDS: LEVOTHYROXINE SODIUM 125 MCG TABLET GT SCH (05:41)
[2017-12-16] MEDS: GLYCOPYRROLATE 1 MG TABLET GT SCH ×4 (05:41→23:15)
[2017-12-16 07:24] VITALS: BP 107/61
[2017-12-16] MEDS: POLYVINYL ALCOHOL 15 ML BOTTLE EACHEYE SCH ×4 (08:35→21:14)
[2017-12-16] MEDS: OMEPRAZOLE 10 MG CAPSULE.DR GT SCH (08:36)
[2017-12-16] MEDS: AMIODARONE HCL 200 MG TABLET GT SCH (08:36)
[2017-12-16] MEDS: POTASSIUM CHLORIDE 20 MEQ/15 ML ML GT SCH (08:36)
[2017-12-16] MEDS: POLYETHYLENE GLYCOL 3350 17 GM POWD.PACK GT SCH (08:36)
[2017-12-16] MEDS: ACIDOPHILUS/BULGARICUS 1 EACH TAB.CHEW GT SCH (08:36)
[2017-12-16] MEDS: HEPARIN SODIUM, PORCINE 5000 UNITS/1 ML VIAL SQ SCH ×2 (08:37→21:14)
[2017-12-16] MEDS: ZINC OXIDE 30 GM TUBE TP SCH ×2 (08:39→21:14)
[2017-12-16] MEDS: CLOTRIMAZOLE 1% 15 GM TUBE TP SCH ×2 (08:39→21:14)
[2017-12-16] MEDS: HYDROGEN PEROXIDE 480 ML BOTTLE TP SCH ×2 (08:39→21:14)
[2017-12-16 19:37] VITALS: BP 108/67
[2017-12-16] MEDS: FINASTERIDE (5 MG) 5 MG TABLET GT SCH (20:00)
[2017-12-16] MEDS: ASCORBIC ACID 500 MG TABLET GT SCH (21:14)
[2017-12-16] MEDS: DOCUSATE SODIUM LIQ 100 MG/10 ML UDC GT SCH (21:14)
[2017-12-16] MEDS: MULTIVIT, IRON, MIN NO. 8, FA 1 TAB GT SCH (21:14)
[2017-12-16] MEDS: SENNOSIDES 8.6 MG TABLET GT SCH (21:15)
[2017-12-17] MEDS: ALBUTEROL FS 2.5 MG/3 ML VIAL.NEB NEB SCH ×4 (01:05→20:10)
[2017-12-17] MEDS: IPRATROPIUM NEB FS 0.5 MG/2.5 ML AMPUL.NEB NEB SCH ×4 (01:05→20:10)
[2017-12-17] MEDS: LEVOTHYROXINE SODIUM 125 MCG TABLET GT SCH (05:41)
[2017-12-17] MEDS: BACLOFEN (10 MG) 10 MG TABLET GT SCH ×3 (05:41→20:21)
[2017-12-17] MEDS: GLYCOPYRROLATE 1 MG TABLET GT SCH ×3 (05:41→17:19)
[2017-12-17 07:40] VITALS: BP 108/70
[2017-12-17] MEDS: HEPARIN SODIUM, PORCINE 5000 UNITS/1 ML VIAL SQ SCH ×2 (09:00→20:33)
[2017-12-17] MEDS: CLOTRIMAZOLE 1% 15 GM TUBE TP SCH ×2 (09:00→21:22)
[2017-12-17] MEDS: ZINC OXIDE 30 GM TUBE TP SCH ×2 (09:00→21:22)
[2017-12-17] MEDS: ERGOCALCIFEROL (VITAMIN D2) 8,000 UNIT/ML GT SCH (09:00)
[2017-12-17] MEDS: POTASSIUM CHLORIDE 20 MEQ/15 ML ML GT SCH (09:00)
[2017-12-17] MEDS: ACIDOPHILUS/BULGARICUS 1 EACH TAB.CHEW GT SCH (09:00)
[2017-12-17] MEDS: OMEPRAZOLE 10 MG CAPSULE.DR GT SCH (09:00)
[2017-12-17] MEDS: POLYETHYLENE GLYCOL 3350 17 GM POWD.PACK GT SCH (09:00)
[2017-12-17] MEDS: POLYVINYL ALCOHOL 15 ML BOTTLE EACHEYE SCH ×4 (09:00→20:19)
[2017-12-17] MEDS: AMIODARONE HCL 200 MG TABLET GT SCH (09:00)
[2017-12-17] MEDS: HYDROGEN PEROXIDE 480 ML BOTTLE TP SCH ×2 (09:00→21:22)
[2017-12-17] MEDS: RENAL NOVASOURCE 1,000 ML BOTTLE GT PRN (18:35)
[2017-12-17 20:07] VITALS: BP 110/74
[2017-12-17] MEDS: FINASTERIDE (5 MG) 5 MG TABLET GT SCH (20:18)
[2017-12-17] MEDS: DOCUSATE SODIUM LIQ 100 MG/10 ML UDC GT SCH (20:20)
[2017-12-17] MEDS: MULTIVIT, IRON, MIN NO. 8, FA 1 TAB GT SCH (20:21)
[2017-12-17] MEDS: ASCORBIC ACID 500 MG TABLET GT SCH (20:22)
[2017-12-17] MEDS: SENNOSIDES 8.6 MG TABLET GT SCH (22:09)
[2017-12-18] MEDS: GLYCOPYRROLATE 1 MG TABLET GT SCH ×5 (00:12→23:08)
[2017-12-18] MEDS: ALBUTEROL FS 2.5 MG/3 ML VIAL.NEB NEB SCH ×4 (02:03→19:30)
[2017-12-18] MEDS: IPRATROPIUM NEB FS 0.5 MG/2.5 ML AMPUL.NEB NEB SCH ×4 (02:03→19:30)
[2017-12-18] MEDS: BACLOFEN (10 MG) 10 MG TABLET GT SCH ×3 (05:32→20:36)
[2017-12-18] MEDS: LEVOTHYROXINE SODIUM 125 MCG TABLET GT SCH (05:32)
[2017-12-18 07:46] VITALS: BP 124/69
[2017-12-18] MEDS: HYDROGEN PEROXIDE 480 ML BOTTLE TP SCH ×2 (09:00→20:37)
[2017-12-18] MEDS: CLOTRIMAZOLE 1% 15 GM TUBE TP SCH ×2 (09:00→20:37)
[2017-12-18] MEDS: POTASSIUM CHLORIDE 20 MEQ/15 ML ML GT SCH (09:00)
[2017-12-18] MEDS: POLYVINYL ALCOHOL 15 ML BOTTLE EACHEYE SCH ×4 (09:00→20:36)
[2017-12-18] MEDS: AMIODARONE HCL 200 MG TABLET GT SCH (09:00)
[2017-12-18] MEDS: OMEPRAZOLE 10 MG CAPSULE.DR GT SCH (09:00)
[2017-12-18] MEDS: HEPARIN SODIUM, PORCINE 5000 UNITS/1 ML VIAL SQ SCH ×2 (09:00→20:37)
[2017-12-18] MEDS: ZINC OXIDE 30 GM TUBE TP SCH ×2 (09:00→20:37)
[2017-12-18] MEDS: POLYETHYLENE GLYCOL 3350 17 GM POWD.PACK GT SCH (09:00)
[2017-12-18] MEDS: ACIDOPHILUS/BULGARICUS 1 EACH TAB.CHEW GT SCH (09:00)
--- NOTE | 2017-12-18 15:00 | NUR ---
call made to 's office,made aware about the referral ,told that is the appellate conferee doctor.but not seeing patients in the [facility]. is not consulting the patient too. will not see the patients because of the insurance. made aware.left message.waiting for response.
[2017-12-18] MEDS: RENAL NOVASOURCE 1,000 ML BOTTLE GT PRN (17:31)
[2017-12-18] MEDS: FINASTERIDE (5 MG) 5 MG TABLET GT SCH (20:36)
[2017-12-18] MEDS: MULTIVIT, IRON, MIN NO. 8, FA 1 TAB GT SCH (20:36)
[2017-12-18] MEDS: ASCORBIC ACID 500 MG TABLET GT SCH (20:36)
[2017-12-18] MEDS: DOCUSATE SODIUM LIQ 100 MG/10 ML UDC GT SCH (20:36)
[2017-12-18 20:55] VITALS: BP 101/53
[2017-12-18] MEDS: SENNOSIDES 8.6 MG TABLET GT SCH (21:40)
[2017-12-19] MEDS: ALBUTEROL FS 2.5 MG/3 ML VIAL.NEB NEB SCH ×4 (01:25→20:00)
[2017-12-19] MEDS: IPRATROPIUM NEB FS 0.5 MG/2.5 ML AMPUL.NEB NEB SCH ×4 (01:25→20:00)
[2017-12-19] MEDS: GLYCOPYRROLATE 1 MG TABLET GT SCH ×4 (05:37→23:21)
[2017-12-19] MEDS: BACLOFEN (10 MG) 10 MG TABLET GT SCH ×3 (05:37→20:49)
[2017-12-19] MEDS: LEVOTHYROXINE SODIUM 125 MCG TABLET GT SCH (05:37)
[2017-12-19 07:41] VITALS: BP 152/95
[2017-12-19] MEDS: POLYETHYLENE GLYCOL 3350 17 GM POWD.PACK GT SCH (08:38)
[2017-12-19] MEDS: ACIDOPHILUS/BULGARICUS 1 EACH TAB.CHEW GT SCH (08:38)
[2017-12-19] MEDS: AMIODARONE HCL 200 MG TABLET GT SCH (08:38)
[2017-12-19] MEDS: OMEPRAZOLE 10 MG CAPSULE.DR GT SCH (08:38)
[2017-12-19] MEDS: POTASSIUM CHLORIDE 20 MEQ/15 ML ML GT SCH (08:38)
[2017-12-19] MEDS: POLYVINYL ALCOHOL 15 ML BOTTLE EACHEYE SCH ×4 (08:38→20:49)
[2017-12-19] MEDS: CLOTRIMAZOLE 1% 15 GM TUBE TP SCH ×2 (08:39→20:50)
[2017-12-19] MEDS: HYDROGEN PEROXIDE 480 ML BOTTLE TP SCH ×2 (08:39→20:50)
[2017-12-19] MEDS: HEPARIN SODIUM, PORCINE 5000 UNITS/1 ML VIAL SQ SCH ×2 (08:39→20:50)
[2017-12-19] MEDS: ZINC OXIDE 30 GM TUBE TP SCH ×2 (08:39→20:50)
[2017-12-19 20:26] VITALS: BP 105/69
[2017-12-19] MEDS: MULTIVIT, IRON, MIN NO. 8, FA 1 TAB GT SCH (20:49)
[2017-12-19] MEDS: ASCORBIC ACID 500 MG TABLET GT SCH (20:49)
[2017-12-19] MEDS: DOCUSATE SODIUM LIQ 100 MG/10 ML UDC GT SCH (20:49)
[2017-12-19] MEDS: FINASTERIDE (5 MG) 5 MG TABLET GT SCH (20:49)
[2017-12-19] MEDS: SENNOSIDES 8.6 MG TABLET GT SCH (21:40)
[2017-12-20] MEDS: ALBUTEROL FS 2.5 MG/3 ML VIAL.NEB NEB SCH ×4 (01:32→19:42)
[2017-12-20] MEDS: IPRATROPIUM NEB FS 0.5 MG/2.5 ML AMPUL.NEB NEB SCH ×4 (01:32→19:42)
[2017-12-20] MEDS: BACLOFEN (10 MG) 10 MG TABLET GT SCH ×3 (05:53→21:15)
[2017-12-20] MEDS: LEVOTHYROXINE SODIUM 125 MCG TABLET GT SCH (05:53)
[2017-12-20] MEDS: GLYCOPYRROLATE 1 MG TABLET GT SCH ×3 (05:53→17:25)
[2017-12-20] MEDS: POLYVINYL ALCOHOL 15 ML BOTTLE EACHEYE SCH ×4 (09:04→21:14)
[2017-12-20] MEDS: AMIODARONE HCL 200 MG TABLET GT SCH (09:05)
[2017-12-20] MEDS: HEPARIN SODIUM, PORCINE 5000 UNITS/1 ML VIAL SQ SCH ×2 (09:05→21:17)
[2017-12-20] MEDS: ACIDOPHILUS/BULGARICUS 1 EACH TAB.CHEW GT SCH (09:05)
[2017-12-20] MEDS: POLYETHYLENE GLYCOL 3350 17 GM POWD.PACK GT SCH (09:05)
[2017-12-20] MEDS: OMEPRAZOLE 10 MG CAPSULE.DR GT SCH (09:05)
[2017-12-20] MEDS: POTASSIUM CHLORIDE 20 MEQ/15 ML ML GT SCH (09:05)
[2017-12-20] MEDS: CLOTRIMAZOLE 1% 15 GM TUBE TP SCH ×2 (09:06→21:17)
[2017-12-20] MEDS: ZINC OXIDE 30 GM TUBE TP SCH ×2 (09:06→21:17)
[2017-12-20] MEDS: HYDROGEN PEROXIDE 480 ML BOTTLE TP SCH ×2 (09:06→21:17)
[2017-12-20 12:44] VITALS: BP 146/89
--- NOTE | 2017-12-20 15:20 | NUR ---
Notified Dr. Reeder that an ENT still has not come to see pt. Notified him that Dr. Elizabeth said he does not come to see patients in [facility] and Dr. España has not been coming as well. Asked Dr. Reeder if there is any other ENT who can see pt. He said there is no one else.
--- NOTE | 2017-12-20 18:55 | NUR ---
Seen by Dr. Paniagua. Notified him that pt has not been seen by ENT yet. He DC'd order for pt to be seen specifically by Dr. Elizabeth. He said any ENT can see pt. Dr. Paniagua also said to ask Dr. Zayas if he can see pt for neck lesion/mass since Dr. Zayas is a cardiothoracic surgeon.
[2017-12-20] MEDS: FINASTERIDE (5 MG) 5 MG TABLET GT SCH (20:00)
[2017-12-20 20:24] VITALS: BP 137/81
[2017-12-20] MEDS: MULTIVIT, IRON, MIN NO. 8, FA 1 TAB GT SCH (21:13)
[2017-12-20] MEDS: DOCUSATE SODIUM LIQ 100 MG/10 ML UDC GT SCH (21:15)
[2017-12-20] MEDS: ASCORBIC ACID 500 MG TABLET GT SCH (21:15)
[2017-12-20] MEDS: SENNOSIDES 8.6 MG TABLET GT SCH (21:17)
[2017-12-21] MEDS: GLYCOPYRROLATE 1 MG TABLET GT SCH ×5 (00:17→23:39)
[2017-12-21] MEDS: IPRATROPIUM NEB FS 0.5 MG/2.5 ML AMPUL.NEB NEB SCH ×4 (01:17→20:30)
[2017-12-21] MEDS: ALBUTEROL FS 2.5 MG/3 ML VIAL.NEB NEB SCH ×4 (01:17→20:30)
[2017-12-21] MEDS: BACLOFEN (10 MG) 10 MG TABLET GT SCH ×3 (05:26→20:55)
[2017-12-21] MEDS: LEVOTHYROXINE SODIUM 125 MCG TABLET GT SCH (05:26)
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
[2017-12-21 08:00] VITALS: BP 145/77
[2017-12-21] MEDS: POLYVINYL ALCOHOL 15 ML BOTTLE EACHEYE SCH ×4 (09:25→20:54)
[2017-12-21] MEDS: ACIDOPHILUS/BULGARICUS 1 EACH TAB.CHEW GT SCH (09:26)
[2017-12-21] MEDS: AMIODARONE HCL 200 MG TABLET GT SCH (09:26)
[2017-12-21] MEDS: POTASSIUM CHLORIDE 20 MEQ/15 ML ML GT SCH (09:26)
[2017-12-21] MEDS: OMEPRAZOLE 10 MG CAPSULE.DR GT SCH (09:26)
[2017-12-21] MEDS: POLYETHYLENE GLYCOL 3350 17 GM POWD.PACK GT SCH (09:26)
[2017-12-21] MEDS: HEPARIN SODIUM, PORCINE 5000 UNITS/1 ML VIAL SQ SCH ×2 (09:27→20:58)
[2017-12-21] MEDS: CLOTRIMAZOLE 1% 15 GM TUBE TP SCH ×2 (09:28→20:58)
[2017-12-21] MEDS: HYDROGEN PEROXIDE 480 ML BOTTLE TP SCH ×2 (09:28→20:58)
[2017-12-21] MEDS: ZINC OXIDE 30 GM TUBE TP SCH ×2 (09:28→20:58)
--- NOTE | 2017-12-21 14:01 | NUR ---
IDT meeting held, reviewed current medications, treatment and laboratory result, family unable to attend. NNO given.
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
[2017-12-21] MEDS: RENAL NOVASOURCE 1,000 ML BOTTLE GT PRN (19:08)
[2017-12-21 19:59] VITALS: BP 102/64
[2017-12-21] MEDS: FINASTERIDE (5 MG) 5 MG TABLET GT SCH (20:54)
[2017-12-21] MEDS: DOCUSATE SODIUM LIQ 100 MG/10 ML UDC GT SCH (20:55)
[2017-12-21] MEDS: MULTIVIT, IRON, MIN NO. 8, FA 1 TAB GT SCH (20:55)
[2017-12-21] MEDS: ASCORBIC ACID 500 MG TABLET GT SCH (20:56)
[2017-12-21] MEDS: SENNOSIDES 8.6 MG TABLET GT SCH (21:00)
[2017-12-22] MEDS: ALBUTEROL FS 2.5 MG/3 ML VIAL.NEB NEB SCH ×4 (02:16→20:14)
[2017-12-22] MEDS: IPRATROPIUM NEB FS 0.5 MG/2.5 ML AMPUL.NEB NEB SCH ×4 (02:16→20:14)
[2017-12-22] MEDS: GLYCOPYRROLATE 1 MG TABLET GT SCH ×4 (05:22→23:19)
[2017-12-22] MEDS: BACLOFEN (10 MG) 10 MG TABLET GT SCH ×3 (05:22→20:54)
[2017-12-22] MEDS: LEVOTHYROXINE SODIUM 125 MCG TABLET GT SCH (05:22)
[2017-12-22 08:00] VITALS: BP 97/64
[2017-12-22] MEDS: HYDROGEN PEROXIDE 480 ML BOTTLE TP SCH ×2 (09:00→20:54)
[2017-12-22] MEDS: ZINC OXIDE 30 GM TUBE TP SCH ×2 (09:00→20:54)
[2017-12-22] MEDS: CLOTRIMAZOLE 1% 15 GM TUBE TP SCH ×2 (09:00→20:54)
[2017-12-22] MEDS: POLYVINYL ALCOHOL 15 ML BOTTLE EACHEYE SCH ×4 (09:07→20:54)
[2017-12-22] MEDS: OMEPRAZOLE 10 MG CAPSULE.DR GT SCH (09:08)
[2017-12-22] MEDS: POLYETHYLENE GLYCOL 3350 17 GM POWD.PACK GT SCH (09:08)
[2017-12-22] MEDS: ACIDOPHILUS/BULGARICUS 1 EACH TAB.CHEW GT SCH (09:08)
[2017-12-22] MEDS: POTASSIUM CHLORIDE 20 MEQ/15 ML ML GT SCH (09:08)
[2017-12-22] MEDS: AMIODARONE HCL 200 MG TABLET GT SCH (09:08)
[2017-12-22] MEDS: HEPARIN SODIUM, PORCINE 5000 UNITS/1 ML VIAL SQ SCH ×2 (09:09→21:31)
[2017-12-22] MEDS: FINASTERIDE (5 MG) 5 MG TABLET GT SCH (20:54)
[2017-12-22] MEDS: ASCORBIC ACID 500 MG TABLET GT SCH (20:54)
[2017-12-22] MEDS: MULTIVIT, IRON, MIN NO. 8, FA 1 TAB GT SCH (20:54)
[2017-12-22] MEDS: DOCUSATE SODIUM LIQ 100 MG/10 ML UDC GT SCH (20:54)
[2017-12-22] MEDS: RENAL NOVASOURCE 1,000 ML BOTTLE GT PRN (21:08)
[2017-12-22] MEDS: SENNOSIDES 8.6 MG TABLET GT SCH (21:08)
[2017-12-22 22:18] VITALS: BP 99/65
[2017-12-23] MEDS: ALBUTEROL FS 2.5 MG/3 ML VIAL.NEB NEB SCH ×4 (01:55→20:15)
[2017-12-23] MEDS: IPRATROPIUM NEB FS 0.5 MG/2.5 ML AMPUL.NEB NEB SCH ×4 (01:55→20:15)
[2017-12-23] MEDS: GLYCOPYRROLATE 1 MG TABLET GT SCH ×4 (05:40→23:56)
[2017-12-23] MEDS: LEVOTHYROXINE SODIUM 125 MCG TABLET GT SCH (05:40)
[2017-12-23] MEDS: BACLOFEN (10 MG) 10 MG TABLET GT SCH ×3 (05:40→20:37)
[2017-12-23 07:31] VITALS: BP 122/72
[2017-12-23] MEDS: AMIODARONE HCL 200 MG TABLET GT SCH (09:31)
[2017-12-23] MEDS: ACIDOPHILUS/BULGARICUS 1 EACH TAB.CHEW GT SCH (09:31)
[2017-12-23] MEDS: OMEPRAZOLE 10 MG CAPSULE.DR GT SCH (09:31)
[2017-12-23] MEDS: POLYETHYLENE GLYCOL 3350 17 GM POWD.PACK GT SCH (09:31)
[2017-12-23] MEDS: POTASSIUM CHLORIDE 20 MEQ/15 ML ML GT SCH (09:31)
[2017-12-23] MEDS: POLYVINYL ALCOHOL 15 ML BOTTLE EACHEYE SCH ×4 (09:31→20:37)
[2017-12-23] MEDS: HEPARIN SODIUM, PORCINE 5000 UNITS/1 ML VIAL SQ SCH ×2 (09:33→20:38)
[2017-12-23] MEDS: ZINC OXIDE 30 GM TUBE TP SCH ×2 (09:54→20:39)
[2017-12-23] MEDS: HYDROGEN PEROXIDE 480 ML BOTTLE TP SCH ×2 (09:54→20:38)
[2017-12-23] MEDS: CLOTRIMAZOLE 1% 15 GM TUBE TP SCH ×2 (09:54→20:38)
--- NOTE | 2017-12-23 10:15 | NUR ---
Victoria catheter seen clogged,reinsert new victoria catheter 16 FR x10ml.Good urine return,no signs of dislodgement and clog.
[2017-12-23] MEDS: FINASTERIDE (5 MG) 5 MG TABLET GT SCH (20:37)
[2017-12-23] MEDS: ASCORBIC ACID 500 MG TABLET GT SCH (20:37)
[2017-12-23] MEDS: MULTIVIT, IRON, MIN NO. 8, FA 1 TAB GT SCH (20:37)
[2017-12-23] MEDS: DOCUSATE SODIUM LIQ 100 MG/10 ML UDC GT SCH (20:37)
[2017-12-23] MEDS: SENNOSIDES 8.6 MG TABLET GT SCH (22:37)
[2017-12-23 23:07] VITALS: BP 95/60
[2017-12-24] MEDS: IPRATROPIUM NEB FS 0.5 MG/2.5 ML AMPUL.NEB NEB SCH ×4 (01:10→20:11)
[2017-12-24] MEDS: ALBUTEROL FS 2.5 MG/3 ML VIAL.NEB NEB SCH ×4 (01:11→20:11)
[2017-12-24] MEDS: BACLOFEN (10 MG) 10 MG TABLET GT SCH ×3 (05:00→21:01)
[2017-12-24] MEDS: GLYCOPYRROLATE 1 MG TABLET GT SCH ×4 (06:15→23:05)
[2017-12-24] MEDS: RENAL NOVASOURCE 1,000 ML BOTTLE GT PRN (06:15)
[2017-12-24] MEDS: LEVOTHYROXINE SODIUM 125 MCG TABLET GT SCH (06:15)
[2017-12-24 08:06] VITALS: BP 109/71
[2017-12-24] MEDS: HYDROGEN PEROXIDE 480 ML BOTTLE TP SCH ×2 (09:00→21:02)
[2017-12-24] MEDS: CLOTRIMAZOLE 1% 15 GM TUBE TP SCH ×2 (09:00→21:02)
[2017-12-24] MEDS: ZINC OXIDE 30 GM TUBE TP SCH ×2 (09:00→21:03)
[2017-12-24] MEDS: POTASSIUM CHLORIDE 20 MEQ/15 ML ML GT SCH (09:30)
[2017-12-24] MEDS: POLYETHYLENE GLYCOL 3350 17 GM POWD.PACK GT SCH (09:30)
[2017-12-24] MEDS: POLYVINYL ALCOHOL 15 ML BOTTLE EACHEYE SCH ×4 (09:30→21:01)
[2017-12-24] MEDS: ACIDOPHILUS/BULGARICUS 1 EACH TAB.CHEW GT SCH (09:30)
[2017-12-24] MEDS: AMIODARONE HCL 200 MG TABLET GT SCH (09:30)
[2017-12-24] MEDS: OMEPRAZOLE 10 MG CAPSULE.DR GT SCH (09:30)
[2017-12-24] MEDS: HEPARIN SODIUM, PORCINE 5000 UNITS/1 ML VIAL SQ SCH ×2 (09:33→21:02)
[2017-12-24] MEDS: FINASTERIDE (5 MG) 5 MG TABLET GT SCH (20:55)
[2017-12-24] MEDS: ASCORBIC ACID 500 MG TABLET GT SCH (21:01)
[2017-12-24] MEDS: MULTIVIT, IRON, MIN NO. 8, FA 1 TAB GT SCH (21:01)
[2017-12-24] MEDS: DOCUSATE SODIUM LIQ 100 MG/10 ML UDC GT SCH (21:01)
[2017-12-24] MEDS: SENNOSIDES 8.6 MG TABLET GT SCH (21:03)
[2017-12-24 21:17] VITALS: BP 124/77
[2017-12-25] MEDS: IPRATROPIUM NEB FS 0.5 MG/2.5 ML AMPUL.NEB NEB SCH ×4 (01:04→19:38)
[2017-12-25] MEDS: ALBUTEROL FS 2.5 MG/3 ML VIAL.NEB NEB SCH ×4 (01:04→19:38)
[2017-12-25] MEDS: BACLOFEN (10 MG) 10 MG TABLET GT SCH ×3 (05:52→21:27)
[2017-12-25] MEDS: LEVOTHYROXINE SODIUM 125 MCG TABLET GT SCH (05:52)
[2017-12-25] MEDS: GLYCOPYRROLATE 1 MG TABLET GT SCH ×4 (05:52→23:46)
[2017-12-25] MEDS: RENAL NOVASOURCE 1,000 ML BOTTLE GT PRN (05:59)
[2017-12-25 07:42] VITALS: BP 107/65
[2017-12-25] MEDS: POLYVINYL ALCOHOL 15 ML BOTTLE EACHEYE SCH ×4 (09:00→21:27)
[2017-12-25] MEDS: AMIODARONE HCL 200 MG TABLET GT SCH (09:01)
[2017-12-25] MEDS: ACIDOPHILUS/BULGARICUS 1 EACH TAB.CHEW GT SCH (09:02)
[2017-12-25] MEDS: POLYETHYLENE GLYCOL 3350 17 GM POWD.PACK GT SCH (09:02)
[2017-12-25] MEDS: OMEPRAZOLE 10 MG CAPSULE.DR GT SCH (09:03)
[2017-12-25] MEDS: POTASSIUM CHLORIDE 20 MEQ/15 ML ML GT SCH (09:03)
[2017-12-25] MEDS: HEPARIN SODIUM, PORCINE 5000 UNITS/1 ML VIAL SQ SCH ×2 (09:04→21:28)
--- NOTE | 2017-12-25 09:15 | NUR ---
Seen and examined by Dr David - no new orders, to continue with current plan of care.
[2017-12-25] MEDS: HYDROGEN PEROXIDE 480 ML BOTTLE TP SCH ×2 (10:15→21:28)
[2017-12-25] MEDS: ZINC OXIDE 30 GM TUBE TP SCH ×2 (10:15→21:28)
[2017-12-25] MEDS: CLOTRIMAZOLE 1% 15 GM TUBE TP SCH ×2 (10:15→21:28)
--- NOTE | 2017-12-25 14:05 | NUR ---
scrap metal processing worker received a call from from the office of Dr. Hernandez/Dr. Sanchez ([phone]) as SW wanted to clarify if any teeth need to be extracted. stated that she asked Dr. Sanchez and he noted that due to resident's mobility it might be a good idea but to check with the primary care physician. Informed the charge nurse who will inform the primary doctor when he does his rounds.
[2017-12-25] MEDS: FINASTERIDE (5 MG) 5 MG TABLET GT SCH (20:00)
[2017-12-25 20:48] VITALS: BP 118/75
[2017-12-25] MEDS: MULTIVIT, IRON, MIN NO. 8, FA 1 TAB GT SCH (21:27)
[2017-12-25] MEDS: DOCUSATE SODIUM LIQ 100 MG/10 ML UDC GT SCH (21:27)
[2017-12-25] MEDS: ASCORBIC ACID 500 MG TABLET GT SCH (21:27)
[2017-12-25] MEDS: SENNOSIDES 8.6 MG TABLET GT SCH (21:28)
[2017-12-26] MEDS: ALBUTEROL FS 2.5 MG/3 ML VIAL.NEB NEB SCH ×4 (01:00→20:20)
[2017-12-26] MEDS: IPRATROPIUM NEB FS 0.5 MG/2.5 ML AMPUL.NEB NEB SCH ×4 (01:00→20:20)
[2017-12-26] MEDS: BACLOFEN (10 MG) 10 MG TABLET GT SCH ×3 (05:00→20:22)
[2017-12-26] MEDS: LEVOTHYROXINE SODIUM 125 MCG TABLET GT SCH (06:22)
[2017-12-26] MEDS: GLYCOPYRROLATE 1 MG TABLET GT SCH ×4 (06:22→23:27)
[2017-12-26 08:04] VITALS: BP 125/82
[2017-12-26] MEDS: ACIDOPHILUS/BULGARICUS 1 EACH TAB.CHEW GT SCH (09:49)
[2017-12-26] MEDS: AMIODARONE HCL 200 MG TABLET GT SCH (09:49)
[2017-12-26] MEDS: POLYVINYL ALCOHOL 15 ML BOTTLE EACHEYE SCH ×4 (09:49→20:22)
[2017-12-26] MEDS: POLYETHYLENE GLYCOL 3350 17 GM POWD.PACK GT SCH (09:49)
[2017-12-26] MEDS: POTASSIUM CHLORIDE 20 MEQ/15 ML ML GT SCH (09:51)
[2017-12-26] MEDS: OMEPRAZOLE 10 MG CAPSULE.DR GT SCH (09:51)
[2017-12-26] MEDS: ZINC OXIDE 30 GM TUBE TP SCH ×2 (09:52→20:23)
[2017-12-26] MEDS: CLOTRIMAZOLE 1% 15 GM TUBE TP SCH ×2 (09:52→20:23)
[2017-12-26] MEDS: HEPARIN SODIUM, PORCINE 5000 UNITS/1 ML VIAL SQ SCH ×2 (09:52→20:22)
[2017-12-26] MEDS: HYDROGEN PEROXIDE 480 ML BOTTLE TP SCH ×2 (09:52→20:22)
[2017-12-26] MEDS: RENAL NOVASOURCE 1,000 ML BOTTLE GT PRN (17:20)
[2017-12-26 19:40] VITALS: BP 101/66
[2017-12-26] MEDS: FINASTERIDE (5 MG) 5 MG TABLET GT SCH (20:22)
[2017-12-26] MEDS: DOCUSATE SODIUM LIQ 100 MG/10 ML UDC GT SCH (20:22)
[2017-12-26] MEDS: ASCORBIC ACID 500 MG TABLET GT SCH (20:22)
[2017-12-26] MEDS: MULTIVIT, IRON, MIN NO. 8, FA 1 TAB GT SCH (20:34)
[2017-12-26] MEDS: SENNOSIDES 8.6 MG TABLET GT SCH (22:01)
[2017-12-27] MEDS: ALBUTEROL FS 2.5 MG/3 ML VIAL.NEB NEB SCH ×4 (02:02→20:09)
[2017-12-27] MEDS: IPRATROPIUM NEB FS 0.5 MG/2.5 ML AMPUL.NEB NEB SCH ×4 (02:02→20:09)
[2017-12-27] MEDS: BACLOFEN (10 MG) 10 MG TABLET GT SCH ×3 (05:50→21:07)
[2017-12-27] MEDS: LEVOTHYROXINE SODIUM 125 MCG TABLET GT SCH (05:50)
[2017-12-27] MEDS: GLYCOPYRROLATE 1 MG TABLET GT SCH ×3 (05:50→17:03)
[2017-12-27 08:14] VITALS: BP 131/76
[2017-12-27] MEDS: POLYVINYL ALCOHOL 15 ML BOTTLE EACHEYE SCH ×4 (09:15→21:07)
[2017-12-27] MEDS: POTASSIUM CHLORIDE 20 MEQ/15 ML ML GT SCH (09:15)
[2017-12-27] MEDS: AMIODARONE HCL 200 MG TABLET GT SCH (09:15)
[2017-12-27] MEDS: ACIDOPHILUS/BULGARICUS 1 EACH TAB.CHEW GT SCH (09:15)
[2017-12-27] MEDS: POLYETHYLENE GLYCOL 3350 17 GM POWD.PACK GT SCH (09:15)
[2017-12-27] MEDS: OMEPRAZOLE 10 MG CAPSULE.DR GT SCH (09:16)
[2017-12-27] MEDS: HYDROGEN PEROXIDE 480 ML BOTTLE TP SCH ×2 (09:16→21:08)
[2017-12-27] MEDS: HEPARIN SODIUM, PORCINE 5000 UNITS/1 ML VIAL SQ SCH ×2 (09:16→21:08)
--- NOTE | 2017-12-27 09:21 | NUR ---
Sent referral to Mario at the wound center for three month podiatry follow up by Dr. King. SW will follow up.
[2017-12-27 19:36] VITALS: BP 105/62
[2017-12-27] MEDS: FINASTERIDE (5 MG) 5 MG TABLET GT SCH (20:00)
[2017-12-27] MEDS: MULTIVIT, IRON, MIN NO. 8, FA 1 TAB GT SCH (21:07)
[2017-12-27] MEDS: DOCUSATE SODIUM LIQ 100 MG/10 ML UDC GT SCH (21:07)
[2017-12-27] MEDS: ASCORBIC ACID 500 MG TABLET GT SCH (21:07)
[2017-12-27] MEDS: SENNOSIDES 8.6 MG TABLET GT SCH (21:08)
[2017-12-28] MEDS: GLYCOPYRROLATE 1 MG TABLET GT SCH ×4 (00:35→17:09)
[2017-12-28] MEDS: IPRATROPIUM NEB FS 0.5 MG/2.5 ML AMPUL.NEB NEB SCH ×4 (02:52→20:08)
[2017-12-28] MEDS: ALBUTEROL FS 2.5 MG/3 ML VIAL.NEB NEB SCH ×4 (02:52→20:08)
[2017-12-28] MEDS: LEVOTHYROXINE SODIUM 125 MCG TABLET GT SCH (05:50)
[2017-12-28] MEDS: BACLOFEN (10 MG) 10 MG TABLET GT SCH ×3 (05:50→20:29)
[2017-12-28 07:19] VITALS: BP 124/67
[2017-12-28] MEDS: POLYVINYL ALCOHOL 15 ML BOTTLE EACHEYE SCH ×4 (08:42→20:29)
[2017-12-28] MEDS: ACIDOPHILUS/BULGARICUS 1 EACH TAB.CHEW GT SCH (08:43)
[2017-12-28] MEDS: AMIODARONE HCL 200 MG TABLET GT SCH (08:43)
[2017-12-28] MEDS: HYDROGEN PEROXIDE 480 ML BOTTLE TP SCH ×2 (08:43→21:42)
[2017-12-28] MEDS: HEPARIN SODIUM, PORCINE 5000 UNITS/1 ML VIAL SQ SCH ×2 (08:43→20:29)
[2017-12-28] MEDS: POTASSIUM CHLORIDE 20 MEQ/15 ML ML GT SCH (08:43)
[2017-12-28] MEDS: OMEPRAZOLE 10 MG CAPSULE.DR GT SCH (08:43)
[2017-12-28] MEDS: POLYETHYLENE GLYCOL 3350 17 GM POWD.PACK GT SCH (08:43)
[2017-12-28 19:36] VITALS: BP 116/68
[2017-12-28] MEDS: FINASTERIDE (5 MG) 5 MG TABLET GT SCH (20:28)
[2017-12-28] MEDS: MULTIVIT, IRON, MIN NO. 8, FA 1 TAB GT SCH (20:29)
[2017-12-28] MEDS: DOCUSATE SODIUM LIQ 100 MG/10 ML UDC GT SCH (20:29)
[2017-12-28] MEDS: ASCORBIC ACID 500 MG TABLET GT SCH (20:29)
[2017-12-28] MEDS: RENAL NOVASOURCE 1,000 ML BOTTLE GT PRN (20:30)
[2017-12-28] MEDS: SENNOSIDES 8.6 MG TABLET GT SCH (21:42)
[2017-12-29] MEDS: ALBUTEROL FS 2.5 MG/3 ML VIAL.NEB NEB SCH ×4 (02:22→19:13)
[2017-12-29] MEDS: IPRATROPIUM NEB FS 0.5 MG/2.5 ML AMPUL.NEB NEB SCH ×4 (02:22→19:13)
[2017-12-29] MEDS: BACLOFEN (10 MG) 10 MG TABLET GT SCH ×3 (05:00→21:00)
[2017-12-29] MEDS: GLYCOPYRROLATE 1 MG TABLET GT SCH ×4 (06:22→17:57)
[2017-12-29] MEDS: LEVOTHYROXINE SODIUM 125 MCG TABLET GT SCH (06:22)
[2017-12-29 07:24] VITALS: BP 113/71
[2017-12-29] MEDS: HYDROGEN PEROXIDE 480 ML BOTTLE TP SCH ×2 (09:00→21:00)
[2017-12-29] MEDS: ZINC OXIDE 30 GM TUBE TP SCH ×2 (09:00→21:00)
[2017-12-29] MEDS ORDERED: ZINC OXIDE 30 GM TUBE TP PRN (09:00)
[2017-12-29] MEDS: AMIODARONE HCL 200 MG TABLET GT SCH (09:20)
[2017-12-29] MEDS: ACIDOPHILUS/BULGARICUS 1 EACH TAB.CHEW GT SCH (09:20)
[2017-12-29] MEDS: POLYETHYLENE GLYCOL 3350 17 GM POWD.PACK GT SCH (09:20)
[2017-12-29] MEDS: POLYVINYL ALCOHOL 15 ML BOTTLE EACHEYE SCH ×4 (09:20→21:00)
[2017-12-29] MEDS: OMEPRAZOLE 10 MG CAPSULE.DR GT SCH (09:21)
[2017-12-29] MEDS: POTASSIUM CHLORIDE 20 MEQ/15 ML ML GT SCH (09:21)
[2017-12-29] MEDS: HEPARIN SODIUM, PORCINE 5000 UNITS/1 ML VIAL SQ SCH ×2 (09:23→21:00)
[2017-12-29 19:38] VITALS: BP 103/55
[2017-12-29] MEDS: FINASTERIDE (5 MG) 5 MG TABLET GT SCH (20:00)
[2017-12-29] MEDS: ASCORBIC ACID 500 MG TABLET GT SCH (21:00)
[2017-12-29] MEDS: MULTIVIT, IRON, MIN NO. 8, FA 1 TAB GT SCH (21:00)
[2017-12-29] MEDS: DOCUSATE SODIUM LIQ 100 MG/10 ML UDC GT SCH (21:00)
[2017-12-29] MEDS: SENNOSIDES 8.6 MG TABLET GT SCH (22:00)
[2017-12-30] MEDS: GLYCOPYRROLATE 1 MG TABLET GT SCH ×4 (00:58→17:28)
[2017-12-30] MEDS: RENAL NOVASOURCE 1,000 ML BOTTLE GT PRN (00:58)
[2017-12-30] MEDS: IPRATROPIUM NEB FS 0.5 MG/2.5 ML AMPUL.NEB NEB SCH ×4 (02:14→20:15)
[2017-12-30] MEDS: ALBUTEROL FS 2.5 MG/3 ML VIAL.NEB NEB SCH ×4 (02:14→20:15)
[2017-12-30] MEDS: BACLOFEN (10 MG) 10 MG TABLET GT SCH ×3 (05:41→21:04)
[2017-12-30] MEDS: LEVOTHYROXINE SODIUM 125 MCG TABLET GT SCH (05:41)
[2017-12-30 07:46] VITALS: BP 111/64
[2017-12-30] MEDS: POLYVINYL ALCOHOL 15 ML BOTTLE EACHEYE SCH ×4 (09:24→21:04)
[2017-12-30] MEDS: HYDROGEN PEROXIDE 480 ML BOTTLE TP SCH ×2 (09:25→21:09)
[2017-12-30] MEDS: ACIDOPHILUS/BULGARICUS 1 EACH TAB.CHEW GT SCH (09:25)
[2017-12-30] MEDS: POLYETHYLENE GLYCOL 3350 17 GM POWD.PACK GT SCH (09:25)
[2017-12-30] MEDS: OMEPRAZOLE 10 MG CAPSULE.DR GT SCH (09:25)
[2017-12-30] MEDS: POTASSIUM CHLORIDE 20 MEQ/15 ML ML GT SCH (09:25)
[2017-12-30] MEDS: HEPARIN SODIUM, PORCINE 5000 UNITS/1 ML VIAL SQ SCH (09:25)
[2017-12-30] MEDS: AMIODARONE HCL 200 MG TABLET GT SCH (09:25)
[2017-12-30] MEDS: ZINC OXIDE 30 GM TUBE TP SCH ×2 (09:26→21:09)
--- NOTE | 2017-12-30 10:00 | NUR ---
Seen by MARCIA MEIER with new order for CBC on 12/31/17.
--- NOTE | 2017-12-30 10:30 | NUR ---
Resident noted with blood and small blood clots in the stool. made aware.got new order for hold heparin for 3 days and continue to monitor.Responsible republican made aware.spoke to [facility].CBC will be done on 12/31/17.
[2017-12-30] MEDS: ACETAMINOPHEN 650 MG/20 ML UDC- FOR SA PATIENTS ONLY GT PRN (18:48)
[2017-12-30 19:39] VITALS: BP 114/67
[2017-12-30] MEDS: FINASTERIDE (5 MG) 5 MG TABLET GT SCH (20:00)
[2017-12-30] MEDS: DOCUSATE SODIUM LIQ 100 MG/10 ML UDC GT SCH (21:04)
[2017-12-30] MEDS: MULTIVIT, IRON, MIN NO. 8, FA 1 TAB GT SCH (21:04)
[2017-12-30] MEDS: ASCORBIC ACID 500 MG TABLET GT SCH (21:08)
[2017-12-30] MEDS: SENNOSIDES 8.6 MG TABLET GT SCH (21:09)
[2017-12-31] MEDS: GLYCOPYRROLATE 1 MG TABLET GT SCH ×5 (00:45→23:41)
[2017-12-31] MEDS: IPRATROPIUM NEB FS 0.5 MG/2.5 ML AMPUL.NEB NEB SCH ×4 (01:46→19:39)
[2017-12-31] MEDS: ALBUTEROL FS 2.5 MG/3 ML VIAL.NEB NEB SCH ×4 (01:46→19:39)
[2017-12-31] MEDS: LEVOTHYROXINE SODIUM 125 MCG TABLET GT SCH (05:35)
[2017-12-31] MEDS: BACLOFEN (10 MG) 10 MG TABLET GT SCH ×3 (05:35→21:09)
[2017-12-31 07:45] LABS: BASOPHILS # (AUTO) 0.1 /CMM (0.0-0.2); BASOPHILS % (AUTO) 0.8 % (0.0-2.0); EOSINOPHILS % (AUTO) 2.6 % (0.0-6.0); HEMATOCRIT 32 % (39-51); HEMOGLOBIN 10.5 g/dL (13.5-17.5); LYMPHOCYTES # (AUTO) 2.6 /CMM (0.8-4.8); LYMPHOCYTES % (AUTO) 17.4 % (20.0-44.0); MEAN CORPUSCULAR HEMOGLOBIN 23 PG (26.0-33.0); MEAN CORPUSCULAR HGB CONC 33 g/dl (31.0-36.0); MEAN CORPUSCULAR VOLUME 71 fL (80-96); MONOCYTES # (AUTO) 1.3 /CMM (0.1-1.30); MONOCYTES % (AUTO) 8.5 % (2.0-12.0); NEUTROPHILS # (AUTO) 10.4 /CMM (1.8-8.9); NEUTROPHILS % (AUTO) 70.7 % (43.0-81.0); PLATELET COUNT (AUTO) 399 /CMM (150-450); RED BLOOD CELL COUNT(AUTO) 4.52 MIL/uL (4.5-6.0); WHITE BLOOD COUNT (AUTO) 14.7 K/uL (4.3-11.0)
[2017-12-31 08:00] VITALS: BP 124/73
[2017-12-31] MEDS: POLYVINYL ALCOHOL 15 ML BOTTLE EACHEYE SCH ×4 (09:35→21:09)
[2017-12-31] MEDS: POLYETHYLENE GLYCOL 3350 17 GM POWD.PACK GT SCH (09:39)
[2017-12-31] MEDS: POTASSIUM CHLORIDE 20 MEQ/15 ML ML GT SCH (09:39)
[2017-12-31] MEDS: HYDROGEN PEROXIDE 480 ML BOTTLE TP SCH ×2 (09:39→21:09)
[2017-12-31] MEDS: AMIODARONE HCL 200 MG TABLET GT SCH (09:39)
[2017-12-31] MEDS: OMEPRAZOLE 10 MG CAPSULE.DR GT SCH (09:39)
[2017-12-31] MEDS: ACIDOPHILUS/BULGARICUS 1 EACH TAB.CHEW GT SCH (09:39)
[2017-12-31] MEDS: ZINC OXIDE 30 GM TUBE TP SCH ×2 (09:40→21:09)
[2017-12-31 10:13] LABS: BAND % (MANUAL) 2 % (0.0-5.0); LYMPHOCYTES % (MANUAL) 12 % (16-48); MONOCYTES % (MANUAL) 5 % (0-11.0); NEUTROPHILS % (MANUAL) 81 (42-76)
--- NOTE | 2017-12-31 14:51 | NUR ---
Called Dr. Kaitlyn V and relayed CBC results, no new orders at this time. No BM at this time. Continue to monitor for blood in stools. Patient not in distress. Closely monitored.
[2017-12-31] MEDS: FINASTERIDE (5 MG) 5 MG TABLET GT SCH (20:00)
[2017-12-31] MEDS: SENNOSIDES 8.6 MG TABLET GT SCH (21:09)
[2017-12-31] MEDS: DOCUSATE SODIUM LIQ 100 MG/10 ML UDC GT SCH (21:09)
[2017-12-31] MEDS: MULTIVIT, IRON, MIN NO. 8, FA 1 TAB GT SCH (21:09)
[2017-12-31] MEDS: ASCORBIC ACID 500 MG TABLET GT SCH (21:09)
[2017-12-31 21:35] VITALS: BP 125/79
[2018-01-01] MEDS: IPRATROPIUM NEB FS 0.5 MG/2.5 ML AMPUL.NEB NEB SCH ×4 (01:25→19:41)
[2018-01-01] MEDS: ALBUTEROL FS 2.5 MG/3 ML VIAL.NEB NEB SCH ×4 (01:25→19:41)
[2018-01-01] MEDS: BACLOFEN (10 MG) 10 MG TABLET GT SCH ×3 (05:00→20:57)
[2018-01-01] MEDS: GLYCOPYRROLATE 1 MG TABLET GT SCH ×4 (06:09→23:54)
[2018-01-01] MEDS: LEVOTHYROXINE SODIUM 125 MCG TABLET GT SCH (06:09)
[2018-01-01 07:44] VITALS: BP 107/57
[2018-01-01] MEDS: POLYVINYL ALCOHOL 15 ML BOTTLE EACHEYE SCH ×4 (08:47→20:57)
[2018-01-01] MEDS: POTASSIUM CHLORIDE 20 MEQ/15 ML ML GT SCH (08:48)
[2018-01-01] MEDS: AMIODARONE HCL 200 MG TABLET GT SCH (08:48)
[2018-01-01] MEDS: HYDROGEN PEROXIDE 480 ML BOTTLE TP SCH ×2 (08:48→20:57)
[2018-01-01] MEDS: POLYETHYLENE GLYCOL 3350 17 GM POWD.PACK GT SCH (08:48)
[2018-01-01] MEDS: OMEPRAZOLE 10 MG CAPSULE.DR GT SCH (08:48)
[2018-01-01] MEDS: ZINC OXIDE 30 GM TUBE TP SCH ×2 (08:48→20:57)
[2018-01-01] MEDS: ACIDOPHILUS/BULGARICUS 1 EACH TAB.CHEW GT SCH (08:48)
--- NOTE | 2018-01-01 10:59 | NUR ---
sample worker called the office of Dr. Coppola (color matcher- ) and spoke with Johana. IGOR informed her that the resident was seen by the dentist on 12/24/2017 and he recommended resident to get evaluation for extraction with Oral and Maxillofacial surgeon due to mobility of teeth #3, #4, #20, and #30. Gertrude noted that she would speak to Dr. Coppola first to see if he is able to come to the hospital and that the resident would be private pay since resident's insurance does not cover the services. IGOR noted that if she can first ask Dr. Coppola to see if he can come and IGOR will then inform CNO to make sure that it is okay. Gertrude to keep the Dispute Coordinator updated. Addendum: 01/01/18 at 1106 by NJ COSTA per charge nurse, Dr. David reported it would be okay for resident to get his teeth removed if it is needed.
[2018-01-01 20:29] VITALS: BP 146/71
[2018-01-01] MEDS: DOCUSATE SODIUM LIQ 100 MG/10 ML UDC GT SCH (20:57)
[2018-01-01] MEDS: ASCORBIC ACID 500 MG TABLET GT SCH (20:57)
[2018-01-01] MEDS: FINASTERIDE (5 MG) 5 MG TABLET GT SCH (20:57)
[2018-01-01] MEDS: MULTIVIT, IRON, MIN NO. 8, FA 1 TAB GT SCH (20:57)
--- NOTE | 2018-01-01 21:00 | NUR ---
RN NOTES Seen and examined by Dr. Paniagua with NNO.
[2018-01-01] MEDS: SENNOSIDES 8.6 MG TABLET GT SCH (21:04)
[2018-01-02] MEDS: ALBUTEROL FS 2.5 MG/3 ML VIAL.NEB NEB SCH ×4 (01:26→19:18)
[2018-01-02] MEDS: IPRATROPIUM NEB FS 0.5 MG/2.5 ML AMPUL.NEB NEB SCH ×4 (01:26→19:18)
[2018-01-02] MEDS: BACLOFEN (10 MG) 10 MG TABLET GT SCH ×3 (05:52→20:07)
[2018-01-02] MEDS: LEVOTHYROXINE SODIUM 125 MCG TABLET GT SCH (05:52)
[2018-01-02] MEDS: GLYCOPYRROLATE 1 MG TABLET GT SCH ×4 (05:52→23:27)
[2018-01-02 07:56] VITALS: BP 107/56
[2018-01-02] MEDS: OMEPRAZOLE 10 MG CAPSULE.DR GT SCH (09:31)
[2018-01-02] MEDS: ACIDOPHILUS/BULGARICUS 1 EACH TAB.CHEW GT SCH (09:31)
[2018-01-02] MEDS: POLYETHYLENE GLYCOL 3350 17 GM POWD.PACK GT SCH (09:31)
[2018-01-02] MEDS: POLYVINYL ALCOHOL 15 ML BOTTLE EACHEYE SCH ×4 (09:31→20:07)
[2018-01-02] MEDS: POTASSIUM CHLORIDE 20 MEQ/15 ML ML GT SCH (09:31)
[2018-01-02] MEDS: AMIODARONE HCL 200 MG TABLET GT SCH (09:31)
[2018-01-02] MEDS: ZINC OXIDE 30 GM TUBE TP SCH ×2 (09:34→20:08)
[2018-01-02] MEDS: HYDROGEN PEROXIDE 480 ML BOTTLE TP SCH ×2 (09:34→20:08)
[2018-01-02 20:07] VITALS: BP 118/68
[2018-01-02] MEDS: MULTIVIT, IRON, MIN NO. 8, FA 1 TAB GT SCH (20:07)
[2018-01-02] MEDS: ASCORBIC ACID 500 MG TABLET GT SCH (20:07)
[2018-01-02] MEDS: DOCUSATE SODIUM LIQ 100 MG/10 ML UDC GT SCH (20:07)
[2018-01-02] MEDS: FINASTERIDE (5 MG) 5 MG TABLET GT SCH (20:07)
[2018-01-02] MEDS: SENNOSIDES 8.6 MG TABLET GT SCH (21:31)
[2018-01-03] MEDS: RENAL NOVASOURCE 1,000 ML BOTTLE GT PRN (01:23)
[2018-01-03] MEDS: IPRATROPIUM NEB FS 0.5 MG/2.5 ML AMPUL.NEB NEB SCH ×4 (01:58→20:01)
[2018-01-03] MEDS: ALBUTEROL FS 2.5 MG/3 ML VIAL.NEB NEB SCH ×4 (01:58→20:01)
[2018-01-03] MEDS: BACLOFEN (10 MG) 10 MG TABLET GT SCH ×3 (05:48→21:19)
[2018-01-03] MEDS: LEVOTHYROXINE SODIUM 125 MCG TABLET GT SCH (05:48)
[2018-01-03] MEDS: GLYCOPYRROLATE 1 MG TABLET GT SCH ×3 (05:48→17:13)
[2018-01-03 07:37] VITALS: BP 113/84
[2018-01-03] MEDS: POTASSIUM CHLORIDE 20 MEQ/15 ML ML GT SCH (08:51)
[2018-01-03] MEDS: POLYETHYLENE GLYCOL 3350 17 GM POWD.PACK GT SCH (08:51)
[2018-01-03] MEDS: OMEPRAZOLE 10 MG CAPSULE.DR GT SCH (08:51)
[2018-01-03] MEDS: ACIDOPHILUS/BULGARICUS 1 EACH TAB.CHEW GT SCH (08:51)
[2018-01-03] MEDS: POLYVINYL ALCOHOL 15 ML BOTTLE EACHEYE SCH ×4 (08:51→21:19)
[2018-01-03] MEDS: AMIODARONE HCL 200 MG TABLET GT SCH (08:51)
[2018-01-03] MEDS: ZINC OXIDE 30 GM TUBE TP SCH ×2 (08:54→21:19)
[2018-01-03] MEDS: HYDROGEN PEROXIDE 480 ML BOTTLE TP SCH ×2 (08:54→21:19)
[2018-01-03] MEDS: HEPARIN SODIUM, PORCINE 5000 UNITS/1 ML VIAL SQ SCH ×2 (08:54→21:19)
[2018-01-03] MEDS: FINASTERIDE (5 MG) 5 MG TABLET GT SCH (20:00)
[2018-01-03 20:14] VITALS: BP 114/65
[2018-01-03] MEDS: MULTIVIT, IRON, MIN NO. 8, FA 1 TAB GT SCH (21:19)
[2018-01-03] MEDS: DOCUSATE SODIUM LIQ 100 MG/10 ML UDC GT SCH (21:19)
[2018-01-03] MEDS: SENNOSIDES 8.6 MG TABLET GT SCH (21:19)
[2018-01-03] MEDS: ASCORBIC ACID 500 MG TABLET GT SCH (21:19)
[2018-01-04] MEDS: GLYCOPYRROLATE 1 MG TABLET GT SCH ×4 (00:09→18:19)
[2018-01-04] MEDS: IPRATROPIUM NEB FS 0.5 MG/2.5 ML AMPUL.NEB NEB SCH ×4 (02:15→20:02)
[2018-01-04] MEDS: ALBUTEROL FS 2.5 MG/3 ML VIAL.NEB NEB SCH ×4 (02:15→20:02)
[2018-01-04] MEDS: BACLOFEN (10 MG) 10 MG TABLET GT SCH ×3 (04:57→21:35)
[2018-01-04] MEDS: RENAL NOVASOURCE 1,000 ML BOTTLE GT PRN (04:57)
[2018-01-04] MEDS: LEVOTHYROXINE SODIUM 125 MCG TABLET GT SCH (05:02)
[2018-01-04 07:59] VITALS: BP 145/94
[2018-01-04] MEDS: ACIDOPHILUS/BULGARICUS 1 EACH TAB.CHEW GT SCH (08:48)
[2018-01-04] MEDS: POLYETHYLENE GLYCOL 3350 17 GM POWD.PACK GT SCH (08:48)
[2018-01-04] MEDS: AMIODARONE HCL 200 MG TABLET GT SCH (08:48)
[2018-01-04] MEDS: POTASSIUM CHLORIDE 20 MEQ/15 ML ML GT SCH (08:48)
[2018-01-04] MEDS: OMEPRAZOLE 10 MG CAPSULE.DR GT SCH (08:48)
[2018-01-04] MEDS: HYDROGEN PEROXIDE 480 ML BOTTLE TP SCH ×2 (08:55→21:35)
[2018-01-04] MEDS: HEPARIN SODIUM, PORCINE 5000 UNITS/1 ML VIAL SQ SCH ×2 (08:55→21:35)
[2018-01-04] MEDS: POLYVINYL ALCOHOL 15 ML BOTTLE EACHEYE SCH ×4 (08:56→21:35)
[2018-01-04] MEDS: ZINC OXIDE 30 GM TUBE TP SCH ×2 (08:56→21:35)
[2018-01-04 19:49] VITALS: BP 111/63
[2018-01-04] MEDS: FINASTERIDE (5 MG) 5 MG TABLET GT SCH (20:00)
[2018-01-04] MEDS: MULTIVIT, IRON, MIN NO. 8, FA 1 TAB GT SCH (21:35)
[2018-01-04] MEDS: SENNOSIDES 8.6 MG TABLET GT SCH (21:35)
[2018-01-04] MEDS: DOCUSATE SODIUM LIQ 100 MG/10 ML UDC GT SCH (21:35)
[2018-01-04] MEDS: ASCORBIC ACID 500 MG TABLET GT SCH (21:35)
[2018-01-05] MEDS: GLYCOPYRROLATE 1 MG TABLET GT SCH ×4 (00:23→17:22)
[2018-01-05] MEDS: IPRATROPIUM NEB FS 0.5 MG/2.5 ML AMPUL.NEB NEB SCH ×4 (02:04→20:16)
[2018-01-05] MEDS: ALBUTEROL FS 2.5 MG/3 ML VIAL.NEB NEB SCH ×4 (02:04→20:16)
[2018-01-05] MEDS: LEVOTHYROXINE SODIUM 125 MCG TABLET GT SCH (05:53)
[2018-01-05] MEDS: BACLOFEN (10 MG) 10 MG TABLET GT SCH ×3 (05:53→21:10)
[2018-01-05] MEDS: RENAL NOVASOURCE 1,000 ML BOTTLE GT PRN (06:49)
[2018-01-05 08:00] VITALS: BP 112/73
[2018-01-05] MEDS: POTASSIUM CHLORIDE 20 MEQ/15 ML ML GT SCH (09:00)
[2018-01-05] MEDS: OMEPRAZOLE 10 MG CAPSULE.DR GT SCH (09:00)
[2018-01-05] MEDS: HYDROGEN PEROXIDE 480 ML BOTTLE TP SCH ×2 (09:00→21:11)
[2018-01-05] MEDS: ACIDOPHILUS/BULGARICUS 1 EACH TAB.CHEW GT SCH (10:46)
[2018-01-05] MEDS: AMIODARONE HCL 200 MG TABLET GT SCH (10:47)
[2018-01-05] MEDS: POLYVINYL ALCOHOL 15 ML BOTTLE EACHEYE SCH ×4 (10:53→21:10)
[2018-01-05] MEDS: POLYETHYLENE GLYCOL 3350 17 GM POWD.PACK GT SCH (10:54)
[2018-01-05] MEDS: ZINC OXIDE 30 GM TUBE TP SCH ×2 (10:56→21:11)
[2018-01-05] MEDS: HEPARIN SODIUM, PORCINE 5000 UNITS/1 ML VIAL SQ SCH ×2 (11:07→21:11)
[2018-01-05 19:52] VITALS: BP 96/64
[2018-01-05] MEDS: FINASTERIDE (5 MG) 5 MG TABLET GT SCH (20:40)
[2018-01-05] MEDS: DOCUSATE SODIUM LIQ 100 MG/10 ML UDC GT SCH (21:10)
[2018-01-05] MEDS: MULTIVIT, IRON, MIN NO. 8, FA 1 TAB GT SCH (21:10)
[2018-01-05] MEDS: ASCORBIC ACID 500 MG TABLET GT SCH (21:10)
[2018-01-05] MEDS: SENNOSIDES 8.6 MG TABLET GT SCH (21:11)
[2018-01-06] MEDS: GLYCOPYRROLATE 1 MG TABLET GT SCH ×4 (00:10→18:07)
[2018-01-06] MEDS: IPRATROPIUM NEB FS 0.5 MG/2.5 ML AMPUL.NEB NEB SCH ×4 (01:59→19:50)
[2018-01-06] MEDS: ALBUTEROL FS 2.5 MG/3 ML VIAL.NEB NEB SCH ×4 (01:59→19:50)
[2018-01-06] MEDS: BACLOFEN (10 MG) 10 MG TABLET GT SCH ×3 (05:36→21:50)
[2018-01-06] MEDS: LEVOTHYROXINE SODIUM 125 MCG TABLET GT SCH (05:36)
[2018-01-06] MEDS: RENAL NOVASOURCE 1,000 ML BOTTLE GT PRN (06:22)
[2018-01-06 07:50] VITALS: BP 96/69
[2018-01-06] MEDS: POLYVINYL ALCOHOL 15 ML BOTTLE EACHEYE SCH ×4 (09:35→21:50)
[2018-01-06] MEDS: POLYETHYLENE GLYCOL 3350 17 GM POWD.PACK GT SCH (09:36)
[2018-01-06] MEDS: POTASSIUM CHLORIDE 20 MEQ/15 ML ML GT SCH (09:36)
[2018-01-06] MEDS: AMIODARONE HCL 200 MG TABLET GT SCH (09:36)
[2018-01-06] MEDS: ACIDOPHILUS/BULGARICUS 1 EACH TAB.CHEW GT SCH (09:36)
[2018-01-06] MEDS: OMEPRAZOLE 10 MG CAPSULE.DR GT SCH (09:36)
[2018-01-06] MEDS: ZINC OXIDE 30 GM TUBE TP SCH ×2 (09:37→21:51)
[2018-01-06] MEDS: HYDROGEN PEROXIDE 480 ML BOTTLE TP SCH ×2 (09:37→21:51)
[2018-01-06] MEDS: HEPARIN SODIUM, PORCINE 5000 UNITS/1 ML VIAL SQ SCH ×2 (09:37→21:51)
[2018-01-06 19:42] VITALS: BP 106/70
[2018-01-06] MEDS: FINASTERIDE (5 MG) 5 MG TABLET GT SCH (20:00)
[2018-01-06] MEDS: MULTIVIT, IRON, MIN NO. 8, FA 1 TAB GT SCH (21:50)
[2018-01-06] MEDS: DOCUSATE SODIUM LIQ 100 MG/10 ML UDC GT SCH (21:50)
[2018-01-06] MEDS: ASCORBIC ACID 500 MG TABLET GT SCH (21:50)
[2018-01-06] MEDS: SENNOSIDES 8.6 MG TABLET GT SCH (21:51)
[2018-01-07] MEDS: GLYCOPYRROLATE 1 MG TABLET GT SCH ×4 (00:26→17:48)
[2018-01-07] MEDS: ALBUTEROL FS 2.5 MG/3 ML VIAL.NEB NEB SCH ×4 (01:32→19:55)
[2018-01-07] MEDS: IPRATROPIUM NEB FS 0.5 MG/2.5 ML AMPUL.NEB NEB SCH ×4 (01:32→19:55)
[2018-01-07] MEDS: BACLOFEN (10 MG) 10 MG TABLET GT SCH ×3 (05:00→21:26)
[2018-01-07] MEDS: LEVOTHYROXINE SODIUM 125 MCG TABLET GT SCH (06:29)
[2018-01-07 07:45] VITALS: BP 110/66
[2018-01-07] MEDS: AMIODARONE HCL 200 MG TABLET GT SCH (09:00)
[2018-01-07] MEDS: POLYETHYLENE GLYCOL 3350 17 GM POWD.PACK GT SCH (09:00)
[2018-01-07] MEDS: OMEPRAZOLE 10 MG CAPSULE.DR GT SCH (09:00)
[2018-01-07] MEDS: HYDROGEN PEROXIDE 480 ML BOTTLE TP SCH ×2 (09:00→21:27)
[2018-01-07] MEDS: HEPARIN SODIUM, PORCINE 5000 UNITS/1 ML VIAL SQ SCH ×2 (09:00→21:27)
[2018-01-07] MEDS: POTASSIUM CHLORIDE 20 MEQ/15 ML ML GT SCH (09:00)
[2018-01-07] MEDS: ACIDOPHILUS/BULGARICUS 1 EACH TAB.CHEW GT SCH (09:00)
[2018-01-07] MEDS: POLYVINYL ALCOHOL 15 ML BOTTLE EACHEYE SCH ×4 (09:00→21:26)
[2018-01-07] MEDS: ZINC OXIDE 30 GM TUBE TP SCH ×2 (09:00→21:27)
[2018-01-07] MEDS: RENAL NOVASOURCE 1,000 ML BOTTLE GT PRN (10:28)
[2018-01-07 19:59] VITALS: BP 133/87
[2018-01-07] MEDS: FINASTERIDE (5 MG) 5 MG TABLET GT SCH (20:00)
[2018-01-07] MEDS: ASCORBIC ACID 500 MG TABLET GT SCH (21:26)
[2018-01-07] MEDS: MULTIVIT, IRON, MIN NO. 8, FA 1 TAB GT SCH (21:26)
[2018-01-07] MEDS: DOCUSATE SODIUM LIQ 100 MG/10 ML UDC GT SCH (21:26)
[2018-01-07] MEDS: SENNOSIDES 8.6 MG TABLET GT SCH (21:27)
[2018-01-08] MEDS: GLYCOPYRROLATE 1 MG TABLET GT SCH ×4 (00:24→17:30)
[2018-01-08] MEDS: ALBUTEROL FS 2.5 MG/3 ML VIAL.NEB NEB SCH ×4 (00:47→20:01)
[2018-01-08] MEDS: IPRATROPIUM NEB FS 0.5 MG/2.5 ML AMPUL.NEB NEB SCH ×4 (00:47→20:01)
[2018-01-08] MEDS: LEVOTHYROXINE SODIUM 125 MCG TABLET GT SCH (05:53)
[2018-01-08] MEDS: BACLOFEN (10 MG) 10 MG TABLET GT SCH ×3 (05:53→21:06)
[2018-01-08 07:49] VITALS: BP 124/72
[2018-01-08] MEDS: ACIDOPHILUS/BULGARICUS 1 EACH TAB.CHEW GT SCH (08:52)
[2018-01-08] MEDS: POLYVINYL ALCOHOL 15 ML BOTTLE EACHEYE SCH ×4 (08:52→21:06)
[2018-01-08] MEDS: POLYETHYLENE GLYCOL 3350 17 GM POWD.PACK GT SCH (08:52)
[2018-01-08] MEDS: AMIODARONE HCL 200 MG TABLET GT SCH (08:52)
[2018-01-08] MEDS: OMEPRAZOLE 10 MG CAPSULE.DR GT SCH (08:52)
[2018-01-08] MEDS: POTASSIUM CHLORIDE 20 MEQ/15 ML ML GT SCH (08:52)
[2018-01-08] MEDS: HEPARIN SODIUM, PORCINE 5000 UNITS/1 ML VIAL SQ SCH ×2 (08:53→21:07)
[2018-01-08] MEDS: HYDROGEN PEROXIDE 480 ML BOTTLE TP SCH ×2 (08:54→21:08)
[2018-01-08] MEDS: ZINC OXIDE 30 GM TUBE TP SCH ×2 (08:54→21:08)
--- NOTE | 2018-01-08 12:41 | NUR ---
IGOR followed up with Gertrude at the office of Dr. Coppola (oral and maxillofacial surgeon) and resident does not have any x-rays therefore cost to be over $400+. Per Gertrude, since the resident does not have any x-rays, Dr. Coppola would do the same evaluation as Dr. Daniel THAO. IGOR will speak to Dr. Sanchez when he visits on 01/14/2018.
--- NOTE | 2018-01-08 12:54 | NUR ---
Social Service Section of [employer] (2nd quarter) completed. Resident is awake but non-communicative. Resident continues to have a trach and gtube. His is his conservator and is involved in his care. often refuses podiatry visit as she states that she is the one taking care of his nails. The resident was seen by search engine optimization strategist Dr. Forrester on October 08, 2017 for his annual eye exam. The resident was also seen by Dr. Daniel THAO on 12/24/2017 for his annual dental exam. Dentist is recommending evaluation for extraction with Oral and Maxillofacial surgeon. SW followed up with Gertrude at the office of Dr. Coppola and resident does not have any x-rays. Per Gertrude, since the resident does not have any x-rays, Dr. Coppola would do the same evaluation as Dr. Daniel THAO. SW will speak to Dr. Sanchez when he visits on 01/14/2018.
--- NOTE | 2018-01-08 17:07 | NUR ---
Pt's G-tube is old and needs to be replaced. Dr. Paniagua ordered GI consult. Notified ONLINE MARKETING COORDINATOR Floresita. She said she will see pt tomorrow.
[2018-01-08 19:45] VITALS: BP 108/66
[2018-01-08] MEDS: FINASTERIDE (5 MG) 5 MG TABLET GT SCH (20:00)
[2018-01-08] MEDS: ASCORBIC ACID 500 MG TABLET GT SCH (21:06)
[2018-01-08] MEDS: MULTIVIT, IRON, MIN NO. 8, FA 1 TAB GT SCH (21:06)
[2018-01-08] MEDS: DOCUSATE SODIUM LIQ 100 MG/10 ML UDC GT SCH (21:06)
[2018-01-08] MEDS: SENNOSIDES 8.6 MG TABLET GT SCH (21:08)
[2018-01-09] MEDS: GLYCOPYRROLATE 1 MG TABLET GT SCH ×4 (00:19→17:09)
[2018-01-09] MEDS: ALBUTEROL FS 2.5 MG/3 ML VIAL.NEB NEB SCH ×4 (01:52→20:24)
[2018-01-09] MEDS: IPRATROPIUM NEB FS 0.5 MG/2.5 ML AMPUL.NEB NEB SCH ×4 (01:52→20:24)
[2018-01-09] MEDS: BACLOFEN (10 MG) 10 MG TABLET GT SCH ×3 (05:36→21:21)
[2018-01-09] MEDS: LEVOTHYROXINE SODIUM 125 MCG TABLET GT SCH (05:36)
[2018-01-09] MEDS: POLYVINYL ALCOHOL 15 ML BOTTLE EACHEYE SCH ×4 (09:32→21:21)
[2018-01-09] MEDS: AMIODARONE HCL 200 MG TABLET GT SCH (09:32)
[2018-01-09] MEDS: ACIDOPHILUS/BULGARICUS 1 EACH TAB.CHEW GT SCH (09:33)
[2018-01-09] MEDS: POLYETHYLENE GLYCOL 3350 17 GM POWD.PACK GT SCH (09:33)
[2018-01-09] MEDS: OMEPRAZOLE 10 MG CAPSULE.DR GT SCH (09:33)
[2018-01-09] MEDS: POTASSIUM CHLORIDE 20 MEQ/15 ML ML GT SCH (09:33)
[2018-01-09] MEDS: HYDROGEN PEROXIDE 480 ML BOTTLE TP SCH ×2 (09:34→21:22)
[2018-01-09] MEDS: HEPARIN SODIUM, PORCINE 5000 UNITS/1 ML VIAL SQ SCH ×2 (09:34→21:21)
[2018-01-09] MEDS: ZINC OXIDE 30 GM TUBE TP SCH ×2 (09:34→21:22)
[2018-01-09] MEDS: ACETAMINOPHEN 650 MG/20 ML UDC- FOR SA PATIENTS ONLY GT PRN (09:36)
[2018-01-09 13:27] VITALS: BP 153/96
--- NOTE | 2018-01-09 16:30 | NUR ---
Floresita Samano, BELT MACHINE OPERATOR made aware of the GI consult, she said that they are busy this week and will change GT next week.
[2018-01-09] MEDS: NEPRO 1,000 ML BOTTLE GT PRN (17:09)
[2018-01-09 20:00] VITALS: BP 121/72
[2018-01-09] MEDS: FINASTERIDE (5 MG) 5 MG TABLET GT SCH (20:30)
[2018-01-09] MEDS: ASCORBIC ACID 500 MG TABLET GT SCH (21:21)
[2018-01-09] MEDS: MULTIVIT, IRON, MIN NO. 8, FA 1 TAB GT SCH (21:21)
[2018-01-09] MEDS: DOCUSATE SODIUM LIQ 100 MG/10 ML UDC GT SCH (21:21)
[2018-01-09] MEDS: SENNOSIDES 8.6 MG TABLET GT SCH (21:22)
[2018-01-10] MEDS: GLYCOPYRROLATE 1 MG TABLET GT SCH ×5 (00:20→23:30)
[2018-01-10] MEDS: IPRATROPIUM NEB FS 0.5 MG/2.5 ML AMPUL.NEB NEB SCH ×4 (02:11→20:25)
[2018-01-10] MEDS: ALBUTEROL FS 2.5 MG/3 ML VIAL.NEB NEB SCH ×4 (02:11→20:25)
[2018-01-10] MEDS: BACLOFEN (10 MG) 10 MG TABLET GT SCH ×3 (05:29→21:00)
[2018-01-10] MEDS: LEVOTHYROXINE SODIUM 125 MCG TABLET GT SCH (05:29)
[2018-01-10 07:56] VITALS: BP 126/78
[2018-01-10] MEDS: AMIODARONE HCL 200 MG TABLET GT SCH (09:32)
[2018-01-10] MEDS: POTASSIUM CHLORIDE 20 MEQ/15 ML ML GT SCH (09:32)
[2018-01-10] MEDS: POLYETHYLENE GLYCOL 3350 17 GM POWD.PACK GT SCH (09:32)
[2018-01-10] MEDS: HEPARIN SODIUM, PORCINE 5000 UNITS/1 ML VIAL SQ SCH ×2 (09:32→21:00)
[2018-01-10] MEDS: POLYVINYL ALCOHOL 15 ML BOTTLE EACHEYE SCH ×4 (09:32→21:00)
[2018-01-10] MEDS: ACIDOPHILUS/BULGARICUS 1 EACH TAB.CHEW GT SCH (09:32)
[2018-01-10] MEDS: OMEPRAZOLE 10 MG CAPSULE.DR GT SCH (09:32)
[2018-01-10] MEDS: HYDROGEN PEROXIDE 480 ML BOTTLE TP SCH ×2 (09:33→21:00)
[2018-01-10] MEDS: ZINC OXIDE 30 GM TUBE TP SCH ×2 (09:33→21:00)
--- NOTE | 2018-01-10 12:13 | NUR ---
Pt's G-tube came out with balloon intact. Replaced G-tube and notified RAIL TRANSIT OPERATOR Floresita Samano. Received order to do KUB to verify placement.
[2018-01-10] MEDS ORDERED: DIATR MEGLU/DIATRIZOATE SODIUM 30 ML BOTTLE (GASTROGRAPHIN) ONE (12:22)
--- NOTE | 2018-01-10 13:45 | NUR ---
Relayed KUB result to ROLL CONTOUR GRINDER Floresita Samano. She said G-tube may now be used. Notified pt's .
[2018-01-10 19:36] VITALS: BP 118/71
[2018-01-10] MEDS: FINASTERIDE (5 MG) 5 MG TABLET GT SCH (20:00)
[2018-01-10] MEDS: MULTIVIT, IRON, MIN NO. 8, FA 1 TAB GT SCH (21:00)
[2018-01-10] MEDS: DOCUSATE SODIUM LIQ 100 MG/10 ML UDC GT SCH (21:00)
[2018-01-10] MEDS: ASCORBIC ACID 500 MG TABLET GT SCH (21:00)
[2018-01-10] MEDS: MAGNESIUM HYDROXIDE 30 ML UDC GT PRN (21:00)
[2018-01-10] MEDS: SENNOSIDES 8.6 MG TABLET GT SCH (21:00)
[2018-01-11] MEDS: ALBUTEROL FS 2.5 MG/3 ML VIAL.NEB NEB SCH ×4 (02:23→20:14)
[2018-01-11] MEDS: IPRATROPIUM NEB FS 0.5 MG/2.5 ML AMPUL.NEB NEB SCH ×4 (02:23→20:14)
[2018-01-11] MEDS: LEVOTHYROXINE SODIUM 125 MCG TABLET GT SCH (05:35)
[2018-01-11] MEDS: GLYCOPYRROLATE 1 MG TABLET GT SCH ×4 (05:35→23:28)
[2018-01-11] MEDS: BACLOFEN (10 MG) 10 MG TABLET GT SCH ×3 (05:35→21:27)
[2018-01-11] MEDS: NEPRO 1,000 ML BOTTLE GT PRN (05:35)
[2018-01-11 08:00] VITALS: BP 131/86
[2018-01-11] MEDS: HEPARIN SODIUM, PORCINE 5000 UNITS/1 ML VIAL SQ SCH ×2 (09:02→21:28)
[2018-01-11] MEDS: POLYVINYL ALCOHOL 15 ML BOTTLE EACHEYE SCH ×4 (09:02→21:27)
[2018-01-11] MEDS: ZINC OXIDE 30 GM TUBE TP SCH ×4 (09:03→21:29)
[2018-01-11] MEDS: POLYETHYLENE GLYCOL 3350 17 GM POWD.PACK GT SCH (09:03)
[2018-01-11] MEDS: OMEPRAZOLE 10 MG CAPSULE.DR GT SCH (09:03)
[2018-01-11] MEDS: AMIODARONE HCL 200 MG TABLET GT SCH (09:03)
[2018-01-11] MEDS: ACIDOPHILUS/BULGARICUS 1 EACH TAB.CHEW GT SCH (09:03)
[2018-01-11] MEDS: HYDROGEN PEROXIDE 480 ML BOTTLE TP SCH ×2 (09:03→21:28)
[2018-01-11] MEDS: POTASSIUM CHLORIDE 20 MEQ/15 ML ML GT SCH (09:03)
[2018-01-11 19:29] VITALS: BP 130/71
[2018-01-11] MEDS: FINASTERIDE (5 MG) 5 MG TABLET GT SCH (20:00)
[2018-01-11] MEDS: DOCUSATE SODIUM LIQ 100 MG/10 ML UDC GT SCH (21:27)
[2018-01-11] MEDS: MULTIVIT, IRON, MIN NO. 8, FA 1 TAB GT SCH (21:28)
[2018-01-11] MEDS: ASCORBIC ACID 500 MG TABLET GT SCH (21:28)
[2018-01-11] MEDS: SENNOSIDES 8.6 MG TABLET GT SCH (21:29)
[2018-01-12] MEDS: NEPRO 1,000 ML BOTTLE GT PRN ×2 (00:23→23:22)
[2018-01-12] MEDS: IPRATROPIUM NEB FS 0.5 MG/2.5 ML AMPUL.NEB NEB SCH ×4 (00:49→20:06)
[2018-01-12] MEDS: ALBUTEROL FS 2.5 MG/3 ML VIAL.NEB NEB SCH ×4 (00:49→20:06)
[2018-01-12] MEDS: BACLOFEN (10 MG) 10 MG TABLET GT SCH ×3 (04:53→20:39)
[2018-01-12] MEDS: GLYCOPYRROLATE 1 MG TABLET GT SCH ×4 (05:04→23:22)
[2018-01-12] MEDS: LEVOTHYROXINE SODIUM 125 MCG TABLET GT SCH (05:04)
[2018-01-12 08:03] VITALS: BP 109/72
[2018-01-12] MEDS: POLYETHYLENE GLYCOL 3350 17 GM POWD.PACK GT SCH (09:00)
[2018-01-12] MEDS: POLYVINYL ALCOHOL 15 ML BOTTLE EACHEYE SCH ×4 (09:00→20:39)
[2018-01-12] MEDS: ACIDOPHILUS/BULGARICUS 1 EACH TAB.CHEW GT SCH (09:00)
[2018-01-12] MEDS: ZINC OXIDE 30 GM TUBE TP SCH ×4 (09:00→20:39)
[2018-01-12] MEDS: OMEPRAZOLE 10 MG CAPSULE.DR GT SCH (09:00)
[2018-01-12] MEDS: AMIODARONE HCL 200 MG TABLET GT SCH (09:00)
[2018-01-12] MEDS: HEPARIN SODIUM, PORCINE 5000 UNITS/1 ML VIAL SQ SCH ×2 (09:00→20:39)
[2018-01-12] MEDS: HYDROGEN PEROXIDE 480 ML BOTTLE TP SCH ×2 (09:00→20:39)
[2018-01-12] MEDS: POTASSIUM CHLORIDE 20 MEQ/15 ML ML GT SCH (09:00)
--- NOTE | 2018-01-12 12:12 | NUR ---
RT NOTE PT TRACHEOSTOMY TUBE CHANGED PER MONTHLY PROTOCOL. PT HAS PORTEX [address]FF[address] IN [address]ACE. CUFF DEFLATED. PT AWAKE AND ALERT. NO DISTRESS NOTED. MINIMAL BLEEDING NOTED. RN NOTIFIED. BILATERAL CHEST RISE NOTED. WILL CONTINUE TO MONITOR.
[2018-01-12] MEDS: FINASTERIDE (5 MG) 5 MG TABLET GT SCH (20:39)
[2018-01-12] MEDS: ASCORBIC ACID 500 MG TABLET GT SCH (20:39)
[2018-01-12] MEDS: DOCUSATE SODIUM LIQ 100 MG/10 ML UDC GT SCH (20:39)
[2018-01-12] MEDS: MULTIVIT, IRON, MIN NO. 8, FA 1 TAB GT SCH (20:39)
[2018-01-12] MEDS: SENNOSIDES 8.6 MG TABLET GT SCH (21:08)
[2018-01-13] MEDS: ALBUTEROL FS 2.5 MG/3 ML VIAL.NEB NEB SCH ×4 (01:16→20:29)
[2018-01-13] MEDS: IPRATROPIUM NEB FS 0.5 MG/2.5 ML AMPUL.NEB NEB SCH ×4 (01:16→20:29)
--- NOTE | 2018-01-13 02:40 | NUR ---
Pt noted victoria cath leaking, attempt to irrigate victoria but unable- noted victoria cath plugged. Prn victoria cath change done and tolerated well, clear yellow urine freely flowing with no s/sx of bleeding, elmo well by pt , awake , no s/sx of discomfort noted.
[2018-01-13] MEDS: GLYCOPYRROLATE 1 MG TABLET GT SCH ×3 (05:15→17:57)
[2018-01-13] MEDS: BACLOFEN (10 MG) 10 MG TABLET GT SCH ×3 (05:15→21:16)
[2018-01-13] MEDS: LEVOTHYROXINE SODIUM 125 MCG TABLET GT SCH (05:15)
[2018-01-13] MEDS: MAGNESIUM HYDROXIDE 30 ML UDC GT PRN (05:15)
[2018-01-13 07:50] VITALS: BP 107/65
[2018-01-13] MEDS: POLYVINYL ALCOHOL 15 ML BOTTLE EACHEYE SCH ×4 (08:29→21:15)
[2018-01-13] MEDS: POTASSIUM CHLORIDE 20 MEQ/15 ML ML GT SCH (08:30)
[2018-01-13] MEDS: AMIODARONE HCL 200 MG TABLET GT SCH (08:30)
[2018-01-13] MEDS: POLYETHYLENE GLYCOL 3350 17 GM POWD.PACK GT SCH (08:30)
[2018-01-13] MEDS: ACIDOPHILUS/BULGARICUS 1 EACH TAB.CHEW GT SCH (08:30)
[2018-01-13] MEDS: OMEPRAZOLE 10 MG CAPSULE.DR GT SCH (08:30)
[2018-01-13] MEDS: HYDROGEN PEROXIDE 480 ML BOTTLE TP SCH ×2 (08:31→21:20)
[2018-01-13] MEDS: HEPARIN SODIUM, PORCINE 5000 UNITS/1 ML VIAL SQ SCH ×2 (08:31→21:19)
[2018-01-13] MEDS: ZINC OXIDE 30 GM TUBE TP SCH ×4 (08:31→21:20)
[2018-01-13 19:25] VITALS: BP 118/71
[2018-01-13] MEDS: FINASTERIDE (5 MG) 5 MG TABLET GT SCH (20:00)
[2018-01-13] MEDS: DOCUSATE SODIUM LIQ 100 MG/10 ML UDC GT SCH (21:16)
[2018-01-13] MEDS: MULTIVIT, IRON, MIN NO. 8, FA 1 TAB GT SCH (21:16)
[2018-01-13] MEDS: ASCORBIC ACID 500 MG TABLET GT SCH (21:19)
[2018-01-13] MEDS: SENNOSIDES 8.6 MG TABLET GT SCH (21:20)
[2018-01-13] MEDS: NEPRO 1,000 ML BOTTLE GT PRN (22:06)
[2018-01-14] MEDS: GLYCOPYRROLATE 1 MG TABLET GT SCH ×4 (01:10→18:00)
[2018-01-14] MEDS: ALBUTEROL FS 2.5 MG/3 ML VIAL.NEB NEB SCH ×4 (01:58→19:30)
[2018-01-14] MEDS: IPRATROPIUM NEB FS 0.5 MG/2.5 ML AMPUL.NEB NEB SCH ×4 (01:58→19:30)
[2018-01-14] MEDS: BACLOFEN (10 MG) 10 MG TABLET GT SCH ×3 (05:00→21:01)
[2018-01-14] MEDS: LEVOTHYROXINE SODIUM 125 MCG TABLET GT SCH (06:05)
[2018-01-14 08:03] VITALS: BP 98/62
[2018-01-14] MEDS: POLYETHYLENE GLYCOL 3350 17 GM POWD.PACK GT SCH (08:42)
[2018-01-14] MEDS: ACIDOPHILUS/BULGARICUS 1 EACH TAB.CHEW GT SCH (08:42)
[2018-01-14] MEDS: AMIODARONE HCL 200 MG TABLET GT SCH (08:42)
[2018-01-14] MEDS: POLYVINYL ALCOHOL 15 ML BOTTLE EACHEYE SCH ×4 (08:42→21:00)
[2018-01-14] MEDS: HEPARIN SODIUM, PORCINE 5000 UNITS/1 ML VIAL SQ SCH ×2 (08:43→21:04)
[2018-01-14] MEDS: OMEPRAZOLE 10 MG CAPSULE.DR GT SCH (08:43)
[2018-01-14] MEDS: POTASSIUM CHLORIDE 20 MEQ/15 ML ML GT SCH (08:43)
[2018-01-14] MEDS: HYDROGEN PEROXIDE 480 ML BOTTLE TP SCH ×2 (08:44→21:04)
[2018-01-14] MEDS: ZINC OXIDE 30 GM TUBE TP SCH ×4 (08:44→21:04)
--- NOTE | 2018-01-14 15:40 | NUR ---
Dr. Sanchez DDS came to see the resident. He noted that "teeth are currently stable and unless otherwise noted as a risk by Primary Care Provider or charge nurse, we will continue to monitor teeth. If PCP or charge nurse believes teeth have become a choking hazard, recommend pt get teeth extracted." Per Dr. Sanchez, they can do another follow up during the next exam. informed.
[2018-01-14] MEDS: FINASTERIDE (5 MG) 5 MG TABLET GT SCH (20:00)
[2018-01-14 20:23] VITALS: BP 120/68
[2018-01-14] MEDS: MULTIVIT, IRON, MIN NO. 8, FA 1 TAB GT SCH (21:01)
[2018-01-14] MEDS: DOCUSATE SODIUM LIQ 100 MG/10 ML UDC GT SCH (21:01)
[2018-01-14] MEDS: ASCORBIC ACID 500 MG TABLET GT SCH (21:03)
[2018-01-14] MEDS: SENNOSIDES 8.6 MG TABLET GT SCH (21:04)
[2018-01-15] MEDS: GLYCOPYRROLATE 1 MG TABLET GT SCH ×4 (00:54→17:46)
[2018-01-15] MEDS: IPRATROPIUM NEB FS 0.5 MG/2.5 ML AMPUL.NEB NEB SCH ×4 (02:19→20:08)
[2018-01-15] MEDS: ALBUTEROL FS 2.5 MG/3 ML VIAL.NEB NEB SCH ×4 (02:19→20:08)
[2018-01-15] MEDS: BACLOFEN (10 MG) 10 MG TABLET GT SCH ×3 (05:57→21:27)
[2018-01-15] MEDS: LEVOTHYROXINE SODIUM 125 MCG TABLET GT SCH (05:57)
[2018-01-15 07:44] VITALS: BP 105/62
[2018-01-15] MEDS: POLYVINYL ALCOHOL 15 ML BOTTLE EACHEYE SCH ×4 (08:21→21:26)
[2018-01-15] MEDS: POTASSIUM CHLORIDE 20 MEQ/15 ML ML GT SCH (08:22)
[2018-01-15] MEDS: ACIDOPHILUS/BULGARICUS 1 EACH TAB.CHEW GT SCH (08:22)
[2018-01-15] MEDS: POLYETHYLENE GLYCOL 3350 17 GM POWD.PACK GT SCH (08:22)
[2018-01-15] MEDS: AMIODARONE HCL 200 MG TABLET GT SCH (08:22)
[2018-01-15] MEDS: OMEPRAZOLE 10 MG CAPSULE.DR GT SCH (08:22)
[2018-01-15] MEDS: HEPARIN SODIUM, PORCINE 5000 UNITS/1 ML VIAL SQ SCH ×2 (08:24→21:29)
[2018-01-15] MEDS: HYDROGEN PEROXIDE 480 ML BOTTLE TP SCH ×2 (08:24→21:29)
[2018-01-15] MEDS: ZINC OXIDE 30 GM TUBE TP SCH ×4 (08:25→21:29)
[2018-01-15] MEDS: FINASTERIDE (5 MG) 5 MG TABLET GT SCH (20:00)
[2018-01-15 21:15] VITALS: BP 95/52
[2018-01-15] MEDS: MULTIVIT, IRON, MIN NO. 8, FA 1 TAB GT SCH (21:25)
[2018-01-15] MEDS: DOCUSATE SODIUM LIQ 100 MG/10 ML UDC GT SCH (21:27)
[2018-01-15] MEDS: ASCORBIC ACID 500 MG TABLET GT SCH (21:27)
[2018-01-15] MEDS: SENNOSIDES 8.6 MG TABLET GT SCH (21:29)
[2018-01-16] MEDS: GLYCOPYRROLATE 1 MG TABLET GT SCH ×5 (00:36→23:57)
[2018-01-16] MEDS: IPRATROPIUM NEB FS 0.5 MG/2.5 ML AMPUL.NEB NEB SCH ×4 (01:21→19:30)
[2018-01-16] MEDS: ALBUTEROL FS 2.5 MG/3 ML VIAL.NEB NEB SCH ×4 (01:21→19:30)
[2018-01-16] MEDS: BACLOFEN (10 MG) 10 MG TABLET GT SCH ×3 (05:45→21:24)
[2018-01-16] MEDS: LEVOTHYROXINE SODIUM 125 MCG TABLET GT SCH (05:45)
[2018-01-16 07:43] VITALS: BP 126/67
[2018-01-16] MEDS: ZINC OXIDE 30 GM TUBE TP SCH ×4 (09:00→21:24)
[2018-01-16] MEDS: HYDROGEN PEROXIDE 480 ML BOTTLE TP SCH ×2 (09:00→21:24)
[2018-01-16] MEDS: OMEPRAZOLE 10 MG CAPSULE.DR GT SCH (09:02)
[2018-01-16] MEDS: POLYVINYL ALCOHOL 15 ML BOTTLE EACHEYE SCH ×4 (09:02→21:23)
[2018-01-16] MEDS: AMIODARONE HCL 200 MG TABLET GT SCH (09:02)
[2018-01-16] MEDS: POTASSIUM CHLORIDE 20 MEQ/15 ML ML GT SCH (09:02)
[2018-01-16] MEDS: ACIDOPHILUS/BULGARICUS 1 EACH TAB.CHEW GT SCH (09:02)
[2018-01-16] MEDS: POLYETHYLENE GLYCOL 3350 17 GM POWD.PACK GT SCH (09:02)
[2018-01-16] MEDS: HEPARIN SODIUM, PORCINE 5000 UNITS/1 ML VIAL SQ SCH ×2 (09:03→21:24)
--- NOTE | 2018-01-16 11:36 | NUR ---
The resident's was informed of upcoming IDT meeting on Thursday January 18, 2018 from 12:30-1:30pm. The resident's stated that she is already updated on the resident's condition and would not be attending Sunday's IDT meeting.
[2018-01-16] MEDS: ERGOCALCIFEROL (VITAMIN D2) 8,000 UNIT/ML GT SCH (14:45)
[2018-01-16] MEDS: NEPRO 1,000 ML BOTTLE GT PRN (15:00)
[2018-01-16 20:24] VITALS: BP 120/77
[2018-01-16] MEDS: FINASTERIDE (5 MG) 5 MG TABLET GT SCH (21:00)
[2018-01-16] MEDS: DOCUSATE SODIUM LIQ 100 MG/10 ML UDC GT SCH (21:23)
[2018-01-16] MEDS: MULTIVIT, IRON, MIN NO. 8, FA 1 TAB GT SCH (21:24)
[2018-01-16] MEDS: SENNOSIDES 8.6 MG TABLET GT SCH (21:24)
[2018-01-16] MEDS: ASCORBIC ACID 500 MG TABLET GT SCH (21:24)
[2018-01-16] MEDS: ACETAMINOPHEN 650 MG/20 ML UDC- FOR SA PATIENTS ONLY GT PRN (22:10)
[2018-01-17] MEDS: ALBUTEROL FS 2.5 MG/3 ML VIAL.NEB NEB SCH ×4 (02:28→20:50)
[2018-01-17] MEDS: IPRATROPIUM NEB FS 0.5 MG/2.5 ML AMPUL.NEB NEB SCH ×4 (02:28→20:50)
[2018-01-17] MEDS: LEVOTHYROXINE SODIUM 125 MCG TABLET GT SCH (05:53)
[2018-01-17] MEDS: GLYCOPYRROLATE 1 MG TABLET GT SCH ×4 (05:53→23:50)
[2018-01-17] MEDS: BACLOFEN (10 MG) 10 MG TABLET GT SCH ×3 (05:53→21:49)
[2018-01-17 07:34] VITALS: BP 116/53
[2018-01-17] MEDS: HYDROGEN PEROXIDE 480 ML BOTTLE TP SCH ×2 (09:00→21:50)
[2018-01-17] MEDS: ZINC OXIDE 30 GM TUBE TP SCH ×4 (09:00→21:50)
[2018-01-17] MEDS: ACIDOPHILUS/BULGARICUS 1 EACH TAB.CHEW GT SCH (09:29)
[2018-01-17] MEDS: POLYETHYLENE GLYCOL 3350 17 GM POWD.PACK GT SCH (09:29)
[2018-01-17] MEDS: POLYVINYL ALCOHOL 15 ML BOTTLE EACHEYE SCH ×4 (09:30→21:49)
[2018-01-17] MEDS: AMIODARONE HCL 200 MG TABLET GT SCH (09:30)
[2018-01-17] MEDS: OMEPRAZOLE 10 MG CAPSULE.DR GT SCH (09:31)
[2018-01-17] MEDS: POTASSIUM CHLORIDE 20 MEQ/15 ML ML GT SCH (09:31)
[2018-01-17] MEDS: HEPARIN SODIUM, PORCINE 5000 UNITS/1 ML VIAL SQ SCH ×2 (09:32→21:49)
--- NOTE | 2018-01-17 11:15 | NUR ---
Pt seen agitation and desaturation around 86%,RT was bagging the pt and the o2 saturation went to 98-100%.After some while pt again get desaturated to 89%.RT bagged the pt and checking the vital signs.@1120 BP-123/91 mmhg and HR-105bt/mt ,T-98.2 F,R-18 and o2-89% and after bagging it went to 100%.Tab ativan 0.5mg.Called and ordered to keep pt on ventillator AC 12 TV-550 100 PERCENT PEEP-5,chest x-ray stat and CBC,Blood culture,Urine analysis and culture ,ABG stat.ABG result received and relayed to ,waiting for the other blood studies result .Responsible green party ms.sabangan stapleton made aware.
[2018-01-17] MEDS: LORAZEPAM 0.5 MG TABLET GT PRN (11:19)
[2018-01-17 11:54] LABS: ABG BASE EXCESS -1.6 mmol/L; ABG OXYGEN SATURATION 98.8 % (92.0-98.5); ABG PCO2 34.7 mmHg (35.0-45.0); ABG PH 7.426 (7.350-7.450); ABG PO2 181.2 mmHg (75.0-100.0); AaDO2 482.7 mmHg; COHb 0.5 % (0.5-1.5); MetHb 0.7 % (0.0-1.5); O2Hb 97.6 % (94.0-97.0); SITE, ABG Right Radial; VENT MODE, BG cool aerosol @ 98%
--- NOTE | 2018-01-17 12:09 | NUR ---
PLACED PATIENT ON VENT DUE TO INCREASED WORK OF BREATHING. VENT PARAMETERS BELOW ORDERED. AC 12 VT 550,FIO2 40%, PEEP +5. SPO2 98%HR 117 Addendum: 01/17/18 at 1213 by PATRICK JIANG RT Amended: Links added.
[2018-01-17 13:02] LABS: EOSINOPHILS % (AUTO) 0.2 % (0.0-6.0); HEMATOCRIT 33 % (39-51); HEMOGLOBIN 10.6 g/dL (13.5-17.5); LYMPHOCYTES # (AUTO) 0.8 /CMM (0.8-4.8); LYMPHOCYTES % (AUTO) 3.6 % (20.0-44.0); MEAN CORPUSCULAR HEMOGLOBIN 23 PG (26.0-33.0); MEAN CORPUSCULAR HGB CONC 32 g/dl (31.0-36.0); MEAN CORPUSCULAR VOLUME 72 fL (80-96); MONOCYTES % (AUTO) 9.1 % (2.0-12.0); NEUTROPHILS # (AUTO) 19.6 /CMM (1.8-8.9); NEUTROPHILS % (AUTO) 87.1 % (43.0-81.0); PLATELET COUNT (AUTO) 369 /CMM (150-450); RDW COEFFICIENT OF VARIATION 19.6 (11.5-15.0); RED BLOOD CELL COUNT(AUTO) 4.57 MIL/uL (4.5-6.0); WHITE BLOOD COUNT (AUTO) 22.5 K/uL (4.3-11.0)
[2018-01-17 14:06] LABS: APPEARANCE,URINE SL CLOUDY (CLEAR); BILIRUBIN,URINE NEGATIVE (NEGATIVE); BLOOD, URINE TRACE-INTA Ery/uL (NEGATIVE); COLOR,URINE YELLOW (YELLOW); KETONES,URINE NEGATIVE (NEGATIVE); LEUKOCYTE ESTERASE ,URINE 2+ (NEGATIVE); NITRITE, URINE NEGATIVE (NEGATIVE); PH,URINE 8.5 (5.0-8.0); PROTEIN,URINE 1+ mg/dl (NEGATIVE); UGLUCOSE NEGATIVE (NEGATIVE); UROBILINOGEN,URINE 0.2 EU/dL (0.2)
--- NOTE | 2018-01-17 14:15 | NUR ---
CARMELITA Park seen the pt and ordered to start iv vanco 1gm now and then dose from pharmacy and iv zosyn 3.375gm Q8hrs x7days and BMP today for increase WBC(22.5K/UL). made aware.New orders noted and carried out.
[2018-01-17] MEDS: NEPRO 1,000 ML BOTTLE GT PRN (14:40)
[2018-01-17 15:22] LABS: BACTERIA,URINE Few /HPF (None Seen); RBC,URINE 0-2 /HPF (0-2); SQUAMOUS EPITHELIAL CELL,UR Rare /HPF (None Seen)
[2018-01-17 15:23] LABS: TRIPLE PHOSPHATE CRYSTAL,UR Few /HPF (None Seen)
[2018-01-17 16:34] LABS: CALCIUM, SERUM 9.5 mg/dL (8.5-10.1); CREATININE 1.9 mg/dL (0.6-1.3); POTASSIUM 5.1 mmol/L (3.5-5.1)
[2018-01-17] MEDS ORDERED: VANCOMYCIN 1 GM in IV NS 0.9% 250 ML IV ONE (18:00)
[2018-01-17] MEDS ORDERED: VANCOMYCIN 1 GM in IV NS 0.9% 250 ML IV SCH (18:00)
--- NOTE | 2018-01-17 18:44 | NUR ---
Clarified allergy of zosyn for the pt with CARMELITA Park,said clarified with pharmacy and they said the pt had iv zosyn before and has no allergic reaction notified.CARMELITA park ordered to continue with iv zosyn.
--- NOTE | 2018-01-17 18:54 | NUR ---
Clarified the allergic reaction of iv zosyn to the pt with the pharmacy,said the pt had iv zosyn before and has no allergy .CARMELITA Park made aware and ordered to continue with iv zosyn.
[2018-01-17] MEDS ORDERED: PIPERACILLIN /TAZOBACTAM 3.375 G in IV NS 0.9% 50 ML IV SCH (20:00)
[2018-01-17] MEDS: FINASTERIDE (5 MG) 5 MG TABLET GT SCH (20:00)
[2018-01-17] MEDS: PIPERACILLIN /TAZOBACTAM 2.25 G in IV NS 0.9% 50 ML IV SCH (21:34)
[2018-01-17] MEDS: ASCORBIC ACID 500 MG TABLET GT SCH (21:49)
[2018-01-17] MEDS: DOCUSATE SODIUM LIQ 100 MG/10 ML UDC GT SCH (21:49)
[2018-01-17] MEDS: MULTIVIT, IRON, MIN NO. 8, FA 1 TAB GT SCH (21:49)
[2018-01-17] MEDS: MAGNESIUM HYDROXIDE 30 ML UDC GT PRN (21:50)
[2018-01-17] MEDS: SENNOSIDES 8.6 MG TABLET GT SCH (21:50)
[2018-01-17] MEDS: ACETAMINOPHEN 650 MG/20 ML UDC- FOR SA PATIENTS ONLY GT PRN (22:45)
[2018-01-17 23:47] VITALS: BP 120/75
[2018-01-18] MEDS: LORAZEPAM 0.5 MG TABLET GT PRN ×2 (00:30→11:09)
[2018-01-18] MEDS: ALBUTEROL FS 2.5 MG/3 ML VIAL.NEB NEB SCH ×4 (02:10→20:12)
[2018-01-18] MEDS: IPRATROPIUM NEB FS 0.5 MG/2.5 ML AMPUL.NEB NEB SCH ×4 (02:10→20:12)
[2018-01-18] MEDS: PIPERACILLIN /TAZOBACTAM 2.25 G in IV NS 0.9% 50 ML IV SCH ×4 (03:10→21:24)
[2018-01-18] MEDS: GLYCOPYRROLATE 1 MG TABLET GT SCH ×4 (05:15→23:26)
[2018-01-18] MEDS: LEVOTHYROXINE SODIUM 125 MCG TABLET GT SCH (05:15)
[2018-01-18] MEDS: BACLOFEN (10 MG) 10 MG TABLET GT SCH ×3 (05:15→21:17)
[2018-01-18] MEDS: ACETAMINOPHEN 650 MG/20 ML UDC- FOR SA PATIENTS ONLY GT PRN ×2 (05:15→21:18)
--- NOTE | 2018-01-18 06:28 | NUR ---
Patient given Zosyn 2.25gm q 6 for bacterial infection,no adverse reaction noted at this time.At @ 0032 pt noted with seizures activity manifested by twitching for @ 45 seconds Ativan given via gt as ordered.Pt also bit his lips minimal bleeding noted.Noted also pt having pain manifested by facial grimacing and increase in respiration and heart rate,Tylenol given for discomfort and repositioned comfortably and effective.Will continue to monitor. also mentioned she will attend the IDT meeting today.
[2018-01-18 08:39] VITALS: BP 105/53
[2018-01-18] MEDS: HYDROGEN PEROXIDE 480 ML BOTTLE TP SCH ×2 (09:00→21:17)
[2018-01-18] MEDS: ZINC OXIDE 30 GM TUBE TP SCH ×4 (09:00→21:17)
[2018-01-18] MEDS: POLYVINYL ALCOHOL 15 ML BOTTLE EACHEYE SCH ×4 (09:17→21:17)
[2018-01-18] MEDS: OMEPRAZOLE 10 MG CAPSULE.DR GT SCH (09:18)
[2018-01-18] MEDS: POTASSIUM CHLORIDE 20 MEQ/15 ML ML GT SCH (09:18)
[2018-01-18] MEDS: POLYETHYLENE GLYCOL 3350 17 GM POWD.PACK GT SCH (09:18)
[2018-01-18] MEDS: AMIODARONE HCL 200 MG TABLET GT SCH (09:18)
[2018-01-18] MEDS: ACIDOPHILUS/BULGARICUS 1 EACH TAB.CHEW GT SCH (09:18)
[2018-01-18] MEDS: HEPARIN SODIUM, PORCINE 5000 UNITS/1 ML VIAL SQ SCH ×2 (09:19→21:17)
[2018-01-18] MEDS: NEPRO 1,000 ML BOTTLE GT PRN (12:44)
--- NOTE | 2018-01-18 14:00 | NUR ---
Notified Dr. David that family is requesting a stronger pain medication other than Tylenol, New order given for Millburn 5-325mg Q6h PRN and midline insertion order in case unable to insert heplock. aware.
--- NOTE | 2018-01-18 15:31 | NUR ---
INTERDISCIPLINARY TEAM CONFERENCE (IDT) was held today. invited to but did not want to attend and reported she is updated on the resident's condition. Dr. David and the interdisciplinary team reviewed the current plan of care in detail. Orders as well as treatment and medications were reviewed. No new orders were given.
[2018-01-18] MEDS: VANCOMYCIN 1 GM in IV NS 0.9% 250 ML IV SCH (18:09)
[2018-01-18] MEDS: FINASTERIDE (5 MG) 5 MG TABLET GT SCH (20:00)
[2018-01-18 21:14] VITALS: BP 94/47
[2018-01-18] MEDS: DOCUSATE SODIUM LIQ 100 MG/10 ML UDC GT SCH (21:17)
[2018-01-18] MEDS: MULTIVIT, IRON, MIN NO. 8, FA 1 TAB GT SCH (21:17)
[2018-01-18] MEDS: SENNOSIDES 8.6 MG TABLET GT SCH (21:17)
[2018-01-18] MEDS: ASCORBIC ACID 500 MG TABLET GT SCH (21:17)
[2018-01-19] MEDS: ALBUTEROL FS 2.5 MG/3 ML VIAL.NEB NEB SCH ×4 (01:26→20:04)
[2018-01-19] MEDS: IPRATROPIUM NEB FS 0.5 MG/2.5 ML AMPUL.NEB NEB SCH ×4 (01:26→20:04)
[2018-01-19] MEDS: PIPERACILLIN /TAZOBACTAM 2.25 G in IV NS 0.9% 50 ML IV SCH ×4 (03:07→21:00)
[2018-01-19] MEDS: GLYCOPYRROLATE 1 MG TABLET GT SCH ×3 (05:20→18:00)
[2018-01-19] MEDS: BACLOFEN (10 MG) 10 MG TABLET GT SCH ×3 (05:20→21:00)
[2018-01-19] MEDS: LEVOTHYROXINE SODIUM 125 MCG TABLET GT SCH (05:20)
[2018-01-19 07:48] VITALS: BP 98/49
[2018-01-19] MEDS: ZINC OXIDE 30 GM TUBE TP SCH ×2 (09:00→21:00)
[2018-01-19] MEDS: ACIDOPHILUS/BULGARICUS 1 EACH TAB.CHEW GT SCH (09:00)
[2018-01-19] MEDS: AMIODARONE HCL 200 MG TABLET GT SCH (09:00)
[2018-01-19] MEDS: POTASSIUM CHLORIDE 20 MEQ/15 ML ML GT SCH (09:00)
[2018-01-19] MEDS: HEPARIN SODIUM, PORCINE 5000 UNITS/1 ML VIAL SQ SCH ×2 (09:00→21:00)
[2018-01-19] MEDS: OMEPRAZOLE 10 MG CAPSULE.DR GT SCH (09:00)
[2018-01-19] MEDS: HYDROGEN PEROXIDE 480 ML BOTTLE TP SCH ×2 (09:00→21:00)
[2018-01-19] MEDS: POLYVINYL ALCOHOL 15 ML BOTTLE EACHEYE SCH ×4 (09:00→21:00)
[2018-01-19] MEDS: POLYETHYLENE GLYCOL 3350 17 GM POWD.PACK GT SCH (09:00)
[2018-01-19] MEDS: ACETAMINOPHEN 650 MG/20 ML UDC- FOR SA PATIENTS ONLY GT PRN (10:11)
[2018-01-19] MEDS: NEPRO 1,000 ML BOTTLE GT PRN (12:05)
[2018-01-19] MEDS: HYDROCODONE/APAP 5/325MG 1 EACH TABLET GT PRN (18:04)
[2018-01-19] MEDS: VANCOMYCIN 1 GM in IV NS 0.9% 250 ML IV SCH (18:12)
--- NOTE | 2018-01-19 19:30 | NUR ---
Asked Millicent if she is following the patient because we need stop date for ATB Vancomycin, she ordered to do CBC, BMP and chest Xray for Sunday. Endorsed to incoming shift to carry out the order.
[2018-01-19] MEDS: FINASTERIDE (5 MG) 5 MG TABLET GT SCH (20:00)
[2018-01-19 20:14] VITALS: BP 102/54
[2018-01-19] MEDS: DOCUSATE SODIUM LIQ 100 MG/10 ML UDC GT SCH (21:00)
[2018-01-19] MEDS: ASCORBIC ACID 500 MG TABLET GT SCH (21:00)
[2018-01-19] MEDS: MULTIVIT, IRON, MIN NO. 8, FA 1 TAB GT SCH (21:00)
[2018-01-19] MEDS: SENNOSIDES 8.6 MG TABLET GT SCH (22:00)
[2018-01-20] MEDS: ALBUTEROL FS 2.5 MG/3 ML VIAL.NEB NEB SCH ×4 (01:53→19:51)
[2018-01-20] MEDS: IPRATROPIUM NEB FS 0.5 MG/2.5 ML AMPUL.NEB NEB SCH ×4 (01:53→19:51)
[2018-01-20] MEDS: PIPERACILLIN /TAZOBACTAM 2.25 G in IV NS 0.9% 50 ML IV SCH ×4 (03:00→21:00)
--- NOTE | 2018-01-20 03:56 | NUR ---
PT JENI'D ON MECHANICAL VENT. TXS GIVEN AND NO ADVERSE REACTION NOTED. SX DONE T/O SHIFT. PT JENI PATENT AND SECURE. AMBUBAG AT BEDSIDE. VENT PLUGGED INTO RED OUTLET. ALARMS ARE ON AND AUDIBLE. Addendum: 01/20/18 at 0357 by ZORAIDA COLINDRES RT Amended: Links added.
[2018-01-20] MEDS: BACLOFEN (10 MG) 10 MG TABLET GT SCH ×3 (05:00→21:09)
[2018-01-20] MEDS: GLYCOPYRROLATE 1 MG TABLET GT SCH ×4 (06:31→17:45)
[2018-01-20] MEDS: LEVOTHYROXINE SODIUM 125 MCG TABLET GT SCH (06:31)
--- NOTE | 2018-01-20 07:36 | NUR ---
Received male dominick pt on mechanical vent. Pt dominick is secure. Vent is plugged into a red outlet, alarms are set and audible, and BVM is at bedside. Addendum: 01/20/18 at 0741 by LINWOOD ROMO RT Amended: Links added.
[2018-01-20 08:00] VITALS: BP 103/65
[2018-01-20] MEDS: OMEPRAZOLE 10 MG CAPSULE.DR GT SCH (09:00)
[2018-01-20] MEDS: ACIDOPHILUS/BULGARICUS 1 EACH TAB.CHEW GT SCH (09:00)
[2018-01-20] MEDS: AMIODARONE HCL 200 MG TABLET GT SCH (09:00)
[2018-01-20] MEDS: ZINC OXIDE 30 GM TUBE TP SCH ×2 (09:00→21:12)
[2018-01-20] MEDS: POTASSIUM CHLORIDE 20 MEQ/15 ML ML GT SCH (09:00)
[2018-01-20] MEDS: POLYVINYL ALCOHOL 15 ML BOTTLE EACHEYE SCH ×4 (09:00→21:08)
[2018-01-20] MEDS: HYDROGEN PEROXIDE 480 ML BOTTLE TP SCH ×2 (09:00→21:12)
[2018-01-20] MEDS: HEPARIN SODIUM, PORCINE 5000 UNITS/1 ML VIAL SQ SCH ×2 (09:00→21:12)
[2018-01-20] MEDS: POLYETHYLENE GLYCOL 3350 17 GM POWD.PACK GT SCH (09:00)
[2018-01-20] MEDS: NEPRO 1,000 ML BOTTLE GT PRN (12:52)
[2018-01-20] MEDS: VANCOMYCIN 1 GM in IV NS 0.9% 250 ML IV SCH (18:40)
--- NOTE | 2018-01-20 18:41 | NUR ---
Resident's heplock in the L foot infiltrated, warm compress applied and elevate foot with pillows. Spoke with nursing order department supervisor for midline insertion but midline nurse left already and suggested to call ICU nurses. ICU nurse attempted 3 times but unsuccessful, she said she will tell the incoming nurse to try again. Endorsed to incoming shift. Notified Reny Siddiqi IV pharmacist of the BUN and creatinine result, and Vanco trough (19) drawn today. She was made aware that we have no IV access at this time. She said that she will calculate the dose and will hold the dose for today and change the time tomorrow at 1200. Mrs. Bradley notified.
[2018-01-20 19:54] VITALS: BP 127/74
[2018-01-20] MEDS: FINASTERIDE (5 MG) 5 MG TABLET GT SCH (20:00)
[2018-01-20] MEDS: MULTIVIT, IRON, MIN NO. 8, FA 1 TAB GT SCH (21:07)
[2018-01-20] MEDS: DOCUSATE SODIUM LIQ 100 MG/10 ML UDC GT SCH (21:09)
[2018-01-20] MEDS: ASCORBIC ACID 500 MG TABLET GT SCH (21:10)
[2018-01-20] MEDS: SENNOSIDES 8.6 MG TABLET GT SCH (22:38)
[2018-01-21] MEDS: GLYCOPYRROLATE 1 MG TABLET GT SCH ×5 (00:49→23:31)
[2018-01-21] MEDS: ALBUTEROL FS 2.5 MG/3 ML VIAL.NEB NEB SCH ×4 (01:48→20:39)
[2018-01-21] MEDS: IPRATROPIUM NEB FS 0.5 MG/2.5 ML AMPUL.NEB NEB SCH ×4 (01:48→20:39)
[2018-01-21] MEDS: PIPERACILLIN /TAZOBACTAM 2.25 G in IV NS 0.9% 50 ML IV SCH ×4 (03:00→21:32)
[2018-01-21] MEDS: LEVOTHYROXINE SODIUM 125 MCG TABLET GT SCH (05:51)
[2018-01-21] MEDS: BACLOFEN (10 MG) 10 MG TABLET GT SCH ×3 (05:51→21:33)
[2018-01-21 06:57] LABS: BASOPHILS # (AUTO) 0.1 /CMM (0.0-0.2); BASOPHILS % (AUTO) 0.4 % (0.0-2.0); EOSINOPHILS % (AUTO) 3.2 % (0.0-6.0); HEMATOCRIT 27 % (39-51); HEMOGLOBIN 8.7 g/dL (13.5-17.5); LYMPHOCYTES # (AUTO) 1.9 /CMM (0.8-4.8); LYMPHOCYTES % (AUTO) 11.7 % (20.0-44.0); MEAN CORPUSCULAR HEMOGLOBIN 23 PG (26.0-33.0); MEAN CORPUSCULAR HGB CONC 32 g/dl (31.0-36.0); MEAN CORPUSCULAR VOLUME 72 fL (80-96); MONOCYTES # (AUTO) 1.7 /CMM (0.1-1.30); MONOCYTES % (AUTO) 10.2 % (2.0-12.0); NEUTROPHILS # (AUTO) 12.4 /CMM (1.8-8.9); NEUTROPHILS % (AUTO) 74.5 % (43.0-81.0); PLATELET COUNT (AUTO) 397 /CMM (150-450); RDW COEFFICIENT OF VARIATION 19.1 (11.5-15.0); RED BLOOD CELL COUNT(AUTO) 3.81 MIL/uL (4.5-6.0); WHITE BLOOD COUNT (AUTO) 16.7 K/uL (4.3-11.0)
[2018-01-21 07:05] LABS: CALCIUM, SERUM 9.3 mg/dL (8.5-10.1); POTASSIUM 4.1 mmol/L (3.5-5.1)
[2018-01-21 08:00] VITALS: BP 109/69
[2018-01-21 08:02] LABS: BAND % (MANUAL) 4 % (0.0-5.0); EOSINOPHILS % (MANUAL) 5 % (0-4); LYMPHOCYTES % (MANUAL) 10 % (16-48); MONOCYTES % (MANUAL) 13 % (0-11.0); NEUTROPHILS % (MANUAL) 68 (42-76)
--- NOTE | 2018-01-21 09:09 | NUR ---
JOE TX GIVEN BY RT REGISTRY.PLEASE CHECK PAPER CHARTING. Addendum: 01/21/18 at 0909 by GUILLERMINA ESPINOSA RT Amended: Links added.
[2018-01-21] MEDS: OMEPRAZOLE 10 MG CAPSULE.DR GT SCH (09:21)
[2018-01-21] MEDS: POLYETHYLENE GLYCOL 3350 17 GM POWD.PACK GT SCH (09:21)
[2018-01-21] MEDS: POLYVINYL ALCOHOL 15 ML BOTTLE EACHEYE SCH ×4 (09:21→21:33)
[2018-01-21] MEDS: ACIDOPHILUS/BULGARICUS 1 EACH TAB.CHEW GT SCH (09:21)
[2018-01-21] MEDS: AMIODARONE HCL 200 MG TABLET GT SCH (09:21)
[2018-01-21] MEDS: POTASSIUM CHLORIDE 20 MEQ/15 ML ML GT SCH (09:21)
[2018-01-21] MEDS: HYDROGEN PEROXIDE 480 ML BOTTLE TP SCH ×2 (09:22→21:34)
[2018-01-21] MEDS: HEPARIN SODIUM, PORCINE 5000 UNITS/1 ML VIAL SQ SCH ×2 (09:22→21:38)
[2018-01-21] MEDS: ZINC OXIDE 30 GM TUBE TP SCH ×2 (09:23→21:35)
[2018-01-21] MEDS: NEPRO 1,000 ML BOTTLE GT PRN (09:24)
--- NOTE | 2018-01-21 11:00 | NUR ---
Relayed CBC, BMP, CXR results to CARMELITA Ricks. No new order. Pt already on IV ATBs.
[2018-01-21] MEDS: VANCOMYCIN 1 GM in IV NS 0.9% 250 ML IV SCH (18:00)
[2018-01-21 19:52] VITALS: BP 105/65
[2018-01-21] MEDS: FINASTERIDE (5 MG) 5 MG TABLET GT SCH (20:00)
--- NOTE | 2018-01-21 21:00 | NUR ---
RN NOTES Received new order to d/c vancomyci 1gm ivpb, change to vancomycin 750mg IVPB q24hr starting tomorrow at 1800, vanco trough on 01/24/18 at 1730, noted and carried out.
[2018-01-21] MEDS: DOCUSATE SODIUM LIQ 100 MG/10 ML UDC GT SCH (21:33)
[2018-01-21] MEDS: ASCORBIC ACID 500 MG TABLET GT SCH (21:34)
[2018-01-21] MEDS: SENNOSIDES 8.6 MG TABLET GT SCH (21:35)
[2018-01-21] MEDS: MULTIVIT, IRON, MIN NO. 8, FA 1 TAB GT SCH (21:37)
[2018-01-22] MEDS: ALBUTEROL FS 2.5 MG/3 ML VIAL.NEB NEB SCH ×4 (01:45→19:30)
[2018-01-22] MEDS: IPRATROPIUM NEB FS 0.5 MG/2.5 ML AMPUL.NEB NEB SCH ×4 (01:45→19:30)
[2018-01-22] MEDS: PIPERACILLIN /TAZOBACTAM 2.25 G in IV NS 0.9% 50 ML IV SCH ×4 (04:13→21:00)
[2018-01-22] MEDS: BACLOFEN (10 MG) 10 MG TABLET GT SCH ×3 (04:14→20:32)
--- NOTE | 2018-01-22 05:29 | NUR ---
PT REC'D TRACHED ON [facility] VENT SETTINGS CHARTED. NO RESP DISTRESS NOTED. SX'D THICK LARGE AMT OF CLEAR SECRETIONS. ALARMS ARE SET AND AUDIBLE, AMBU BAG BEDSIDE, VENT PLUGGED INTO RED OUTLET. WILL CONTINUE TO MONITOR Addendum: 01/22/18 at 0599 by KERA ADAM RT Amended: Links added.
[2018-01-22] MEDS: LEVOTHYROXINE SODIUM 125 MCG TABLET GT SCH (06:07)
[2018-01-22] MEDS: GLYCOPYRROLATE 1 MG TABLET GT SCH ×4 (06:07→23:52)
--- NOTE | 2018-01-22 07:05 | NUR ---
RN NOTES MIDLINE NURSE AT BEDSIDE. INSERTED MIDLINE 20G TO ZANDER. GOOD BLOOD RETURN NOTED.
[2018-01-22 07:54] VITALS: BP 123/71
[2018-01-22] MEDS: POLYVINYL ALCOHOL 15 ML BOTTLE EACHEYE SCH ×4 (09:33→20:31)
[2018-01-22] MEDS: AMIODARONE HCL 200 MG TABLET GT SCH (09:33)
[2018-01-22] MEDS: POLYETHYLENE GLYCOL 3350 17 GM POWD.PACK GT SCH (09:33)
[2018-01-22] MEDS: ACIDOPHILUS/BULGARICUS 1 EACH TAB.CHEW GT SCH (09:33)
[2018-01-22] MEDS: OMEPRAZOLE 10 MG CAPSULE.DR GT SCH (09:34)
[2018-01-22] MEDS: POTASSIUM CHLORIDE 20 MEQ/15 ML ML GT SCH (09:34)
[2018-01-22] MEDS: HEPARIN SODIUM, PORCINE 5000 UNITS/1 ML VIAL SQ SCH ×2 (09:35→20:34)
[2018-01-22] MEDS: ZINC OXIDE 30 GM TUBE TP SCH ×2 (09:35→20:35)
[2018-01-22] MEDS: HYDROGEN PEROXIDE 480 ML BOTTLE TP SCH ×2 (09:35→20:34)
[2018-01-22 10:45] LABS: CALCIUM, SERUM 9.4 mg/dL (8.5-10.1); POTASSIUM 4.4 mmol/L (3.5-5.1)
[2018-01-22] MEDS: VANCOMYCIN 0.75 GM in IV D5W 250 ML IV SCH (18:01)
[2018-01-22 20:18] VITALS: BP 124/70
[2018-01-22] MEDS: FINASTERIDE (5 MG) 5 MG TABLET GT SCH (20:31)
[2018-01-22] MEDS: DOCUSATE SODIUM LIQ 100 MG/10 ML UDC GT SCH (20:32)
[2018-01-22] MEDS: MULTIVIT, IRON, MIN NO. 8, FA 1 TAB GT SCH (20:32)
[2018-01-22] MEDS: ASCORBIC ACID 500 MG TABLET GT SCH (20:33)
[2018-01-22] MEDS: SENNOSIDES 8.6 MG TABLET GT SCH (22:08)
[2018-01-23] MEDS: IPRATROPIUM NEB FS 0.5 MG/2.5 ML AMPUL.NEB NEB SCH ×4 (01:16→19:38)
[2018-01-23] MEDS: ALBUTEROL FS 2.5 MG/3 ML VIAL.NEB NEB SCH ×4 (01:16→19:38)
[2018-01-23] MEDS: PIPERACILLIN /TAZOBACTAM 2.25 G in IV NS 0.9% 50 ML IV SCH ×4 (03:00→21:03)
[2018-01-23] MEDS: BACLOFEN (10 MG) 10 MG TABLET GT SCH ×3 (05:00→20:13)
[2018-01-23] MEDS: NEPRO 1,000 ML BOTTLE GT PRN (06:04)
[2018-01-23] MEDS: GLYCOPYRROLATE 1 MG TABLET GT SCH ×3 (06:04→17:22)
[2018-01-23] MEDS: LEVOTHYROXINE SODIUM 125 MCG TABLET GT SCH (06:05)
[2018-01-23 07:10] LABS: CALCIUM, SERUM 9.1 mg/dL (8.5-10.1); CREATININE 1.9 mg/dL (0.6-1.3); POTASSIUM 4.5 mmol/L (3.5-5.1)
[2018-01-23 08:00] VITALS: BP 110/65
[2018-01-23] MEDS: POLYVINYL ALCOHOL 15 ML BOTTLE EACHEYE SCH ×4 (08:41→20:13)
[2018-01-23] MEDS: ACIDOPHILUS/BULGARICUS 1 EACH TAB.CHEW GT SCH (08:42)
[2018-01-23] MEDS: AMIODARONE HCL 200 MG TABLET GT SCH (08:42)
[2018-01-23] MEDS: POLYETHYLENE GLYCOL 3350 17 GM POWD.PACK GT SCH (08:44)
[2018-01-23] MEDS: OMEPRAZOLE 10 MG CAPSULE.DR GT SCH (08:45)
[2018-01-23] MEDS: POTASSIUM CHLORIDE 20 MEQ/15 ML ML GT SCH (08:45)
[2018-01-23] MEDS: HEPARIN SODIUM, PORCINE 5000 UNITS/1 ML VIAL SQ SCH ×2 (08:46→20:13)
--- NOTE | 2018-01-23 09:47 | NUR ---
According to cnc machinist 2nd shift, resident's would like GT feeding to go back to 900kcal/24 hours because he does not want him to gain weight. Nurse Clinical notified and placed a consult regarding family's request.
[2018-01-23] MEDS: ZINC OXIDE 30 GM TUBE TP SCH ×2 (10:00→20:13)
[2018-01-23] MEDS: HYDROGEN PEROXIDE 480 ML BOTTLE TP SCH ×2 (10:00→20:13)
--- NOTE | 2018-01-23 12:30 | NUR ---
Seen and examined by YECENIA Lugo for Dr. Day, no new order given.
[2018-01-23] MEDS: VANCOMYCIN 0.75 GM in IV D5W 250 ML IV SCH (18:30)
[2018-01-23] MEDS: FINASTERIDE (5 MG) 5 MG TABLET GT SCH (20:13)
[2018-01-23] MEDS: MULTIVIT, IRON, MIN NO. 8, FA 1 TAB GT SCH (20:13)
[2018-01-23] MEDS: DOCUSATE SODIUM LIQ 100 MG/10 ML UDC GT SCH (20:13)
[2018-01-23] MEDS: ASCORBIC ACID 500 MG TABLET GT SCH (20:13)
[2018-01-23] MEDS: SENNOSIDES 8.6 MG TABLET GT SCH (21:48)
[2018-01-24] VITALS: BP 135/78
[2018-01-24] MEDS: GLYCOPYRROLATE 1 MG TABLET GT SCH ×5 (00:20→23:30)
[2018-01-24] MEDS: NEPRO 1,000 ML BOTTLE GT PRN ×2 (00:21→18:54)
[2018-01-24] MEDS: ALBUTEROL FS 2.5 MG/3 ML VIAL.NEB NEB SCH ×4 (02:19→19:52)
[2018-01-24] MEDS: IPRATROPIUM NEB FS 0.5 MG/2.5 ML AMPUL.NEB NEB SCH ×4 (02:19→19:52)
[2018-01-24] MEDS: PIPERACILLIN /TAZOBACTAM 2.25 G in IV NS 0.9% 50 ML IV SCH ×3 (02:35→15:00)
[2018-01-24] MEDS: LEVOTHYROXINE SODIUM 125 MCG TABLET GT SCH (05:33)
[2018-01-24] MEDS: BACLOFEN (10 MG) 10 MG TABLET GT SCH ×3 (05:33→21:16)
[2018-01-24 07:02] LABS: CALCIUM, SERUM 9.3 mg/dL (8.5-10.1); CREATININE 1.8 mg/dL (0.6-1.3); POTASSIUM 4.3 mmol/L (3.5-5.1)
--- NOTE | 2018-01-24 08:03 | NUR ---
Mamadou pt received on mechanical vent. Pt trach is secure. Vent is plugged into a red outlet, alarms are set and audible, and BVM is at bedside. Addendum: 01/24/18 at 0805 by LINWOOD ROMO RT Amended: Links added.
[2018-01-24 08:10] VITALS: BP 120/73
[2018-01-24] MEDS: HYDROGEN PEROXIDE 480 ML BOTTLE TP SCH ×2 (09:00→21:17)
[2018-01-24] MEDS: ZINC OXIDE 30 GM TUBE TP SCH ×2 (09:00→21:17)
[2018-01-24] MEDS: POLYVINYL ALCOHOL 15 ML BOTTLE EACHEYE SCH ×4 (09:30→21:16)
[2018-01-24] MEDS: ACIDOPHILUS/BULGARICUS 1 EACH TAB.CHEW GT SCH (09:30)
[2018-01-24] MEDS: POLYETHYLENE GLYCOL 3350 17 GM POWD.PACK GT SCH (09:30)
[2018-01-24] MEDS: AMIODARONE HCL 200 MG TABLET GT SCH (09:30)
[2018-01-24] MEDS: OMEPRAZOLE 10 MG CAPSULE.DR GT SCH (09:30)
[2018-01-24] MEDS: POTASSIUM CHLORIDE 20 MEQ/15 ML ML GT SCH (09:30)
[2018-01-24] MEDS: HEPARIN SODIUM, PORCINE 5000 UNITS/1 ML VIAL SQ SCH ×2 (09:31→21:17)
[2018-01-24] MEDS: VANCOMYCIN 0.75 GM in IV D5W 250 ML IV SCH (17:26)
--- NOTE | 2018-01-24 18:57 | NUR ---
Pt noted with left hip open skin. Received order to apply triple antibiotic ointment, cover with Mepilex. Also received order for wound consult. Addendum: 01/28/18 at 1059 by NOAH OGDEN RN Left hip open skin 1 x 1 cm, surrounded by dark brown skin staining which pt has had for a long time.
[2018-01-24] MEDS: FINASTERIDE (5 MG) 5 MG TABLET GT SCH (20:00)
[2018-01-24 20:08] VITALS: BP 142/79
[2018-01-24] MEDS: ASCORBIC ACID 500 MG TABLET GT SCH (21:16)
[2018-01-24] MEDS: MULTIVIT, IRON, MIN NO. 8, FA 1 TAB GT SCH (21:16)
[2018-01-24] MEDS: DOCUSATE SODIUM LIQ 100 MG/10 ML UDC GT SCH (21:16)
[2018-01-24] MEDS: SENNOSIDES 8.6 MG TABLET GT SCH (21:17)
[2018-01-24] MEDS: NEOMY SULF/BACITRAC ZN/POLY 15 GM TUBE TP SCH (21:17)
[2018-01-25] MEDS: ALBUTEROL FS 2.5 MG/3 ML VIAL.NEB NEB SCH ×4 (01:36→19:53)
[2018-01-25] MEDS: IPRATROPIUM NEB FS 0.5 MG/2.5 ML AMPUL.NEB NEB SCH ×4 (01:36→19:52)
[2018-01-25] MEDS: HYDROCODONE/APAP 5/325MG 1 EACH TABLET GT PRN (02:06)
--- NOTE | 2018-01-25 03:15 | NUR ---
RT Pt trachs remains on [facility] vent ordered settings. Addendum: 01/25/18 at 0316 by TREY ARENAS RT Amended: Links added.
[2018-01-25] MEDS: BACLOFEN (10 MG) 10 MG TABLET GT SCH ×3 (05:00→21:27)
[2018-01-25] MEDS: GLYCOPYRROLATE 1 MG TABLET GT SCH ×4 (06:12→23:30)
[2018-01-25] MEDS: LEVOTHYROXINE SODIUM 125 MCG TABLET GT SCH (06:12)
[2018-01-25 07:07] LABS: BASOPHILS % (AUTO) 0.1 % (0.0-2.0); EOSINOPHILS % (AUTO) 3.3 % (0.0-6.0); HEMATOCRIT 26 % (39-51); HEMOGLOBIN 8.3 g/dL (13.5-17.5); LYMPHOCYTES # (AUTO) 2.4 /CMM (0.8-4.8); LYMPHOCYTES % (AUTO) 15.2 % (20.0-44.0); MEAN CORPUSCULAR HEMOGLOBIN 23 PG (26.0-33.0); MEAN CORPUSCULAR HGB CONC 32 g/dl (31.0-36.0); MEAN CORPUSCULAR VOLUME 72 fL (80-96); MONOCYTES # (AUTO) 1.5 /CMM (0.1-1.30); MONOCYTES % (AUTO) 9.6 % (2.0-12.0); NEUTROPHILS # (AUTO) 11.2 /CMM (1.8-8.9); NEUTROPHILS % (AUTO) 71.8 % (43.0-81.0); PLATELET COUNT (AUTO) 441 /CMM (150-450); RDW COEFFICIENT OF VARIATION 19.3 (11.5-15.0); RED BLOOD CELL COUNT(AUTO) 3.66 MIL/uL (4.5-6.0); WHITE BLOOD COUNT (AUTO) 15.6 K/uL (4.3-11.0)
[2018-01-25 07:14] LABS: CALCIUM, SERUM 9.1 mg/dL (8.5-10.1); CREATININE 1.8 mg/dL (0.6-1.3); POTASSIUM 4.5 mmol/L (3.5-5.1)
[2018-01-25 07:32] VITALS: BP 105/61
[2018-01-25 08:35] LABS: LYMPHOCYTES % (MANUAL) 9 % (16-48); MONOCYTES % (MANUAL) 10 % (0-11.0); NEUTROPHILS % (MANUAL) 81 (42-76)
--- NOTE | 2018-01-25 08:39 | NUR ---
Left a message to CARMELITA Ricks asking for the stop date for Vancomycin and also reported CBC and BMP result collected today. Awaiting for call back.
[2018-01-25] MEDS: AMIODARONE HCL 200 MG TABLET GT SCH (08:55)
[2018-01-25] MEDS: POLYVINYL ALCOHOL 15 ML BOTTLE EACHEYE SCH ×4 (08:55→21:27)
[2018-01-25] MEDS: POLYETHYLENE GLYCOL 3350 17 GM POWD.PACK GT SCH (08:56)
[2018-01-25] MEDS: ACIDOPHILUS/BULGARICUS 1 EACH TAB.CHEW GT SCH (08:56)
[2018-01-25] MEDS: POTASSIUM CHLORIDE 20 MEQ/15 ML ML GT SCH (08:57)
[2018-01-25] MEDS: OMEPRAZOLE 10 MG CAPSULE.DR GT SCH (08:58)
[2018-01-25] MEDS: HEPARIN SODIUM, PORCINE 5000 UNITS/1 ML VIAL SQ SCH ×2 (09:01→21:28)
[2018-01-25] MEDS: HYDROGEN PEROXIDE 480 ML BOTTLE TP SCH ×2 (10:15→21:28)
[2018-01-25] MEDS: NEOMY SULF/BACITRAC ZN/POLY 15 GM TUBE TP SCH ×4 (10:15→21:28)
[2018-01-25] MEDS: ZINC OXIDE 30 GM TUBE TP SCH ×2 (11:32→21:30)
--- NOTE | 2018-01-25 13:00 | NUR ---
Millicent requested culture results and will review sensitivities. Awaiting for new order.
--- NOTE | 2018-01-25 17:00 | NUR ---
visiting, notified that wound nurse has seen the L hip open area, with new order given. She also gave a hand written note with list of backshoe person that she wants to be notified in case she cannot be reached. Left the information inside the plastic sheet sleeve of the facesheet, endorsed.
--- NOTE | 2018-01-25 18:30 | NUR ---
Received an order from CARMELITA Ricks to discontinue Vancomycin and start Tobramycin per pharmacy to dose for UTI. Endorsed to follow-up the dosing with pharmacist.
[2018-01-25] MEDS: FINASTERIDE (5 MG) 5 MG TABLET GT SCH (20:00)
[2018-01-25 20:17] VITALS: BP 130/86
--- NOTE | 2018-01-25 21:00 | NUR ---
STARTED TOBRAMYCIN 140MG Q DAILY PER PHARMACIST ( EL).TOBRAMYCIN TROUGH ON Sunday01/27/18 @ 2030.
[2018-01-25] MEDS: ASCORBIC ACID 500 MG TABLET GT SCH (21:27)
[2018-01-25] MEDS: DOCUSATE SODIUM LIQ 100 MG/10 ML UDC GT SCH (21:27)
[2018-01-25] MEDS: MULTIVIT, IRON, MIN NO. 8, FA 1 TAB GT SCH (21:27)
[2018-01-25] MEDS: SENNOSIDES 8.6 MG TABLET GT SCH (21:30)
[2018-01-25] MEDS: D5W INH SCH (21:51)
[2018-01-25] MEDS: TOBRAMYCIN INH SCH (21:51)
[2018-01-26] MEDS: IPRATROPIUM NEB FS 0.5 MG/2.5 ML AMPUL.NEB NEB SCH ×4 (01:03→20:14)
[2018-01-26] MEDS: ALBUTEROL FS 2.5 MG/3 ML VIAL.NEB NEB SCH ×4 (01:03→20:14)
[2018-01-26] MEDS: GLYCOPYRROLATE 1 MG TABLET GT SCH ×3 (05:33→18:05)
[2018-01-26] MEDS: LEVOTHYROXINE SODIUM 125 MCG TABLET GT SCH (05:33)
[2018-01-26] MEDS: BACLOFEN (10 MG) 10 MG TABLET GT SCH ×3 (05:33→21:00)
[2018-01-26 07:00] VITALS: BP 128/76
[2018-01-26 07:26] LABS: CALCIUM, SERUM 9.2 mg/dL (8.5-10.1); CREATININE 1.7 mg/dL (0.6-1.3); POTASSIUM 4.6 mmol/L (3.5-5.1)
[2018-01-26] MEDS: POTASSIUM CHLORIDE 20 MEQ/15 ML ML GT SCH (09:00)
[2018-01-26] MEDS: ZINC OXIDE 30 GM TUBE TP SCH ×2 (09:00→21:00)
[2018-01-26] MEDS: OMEPRAZOLE 10 MG CAPSULE.DR GT SCH (09:00)
[2018-01-26] MEDS: HYDROGEN PEROXIDE 480 ML BOTTLE TP SCH ×2 (09:00→21:00)
[2018-01-26] MEDS: POLYETHYLENE GLYCOL 3350 17 GM POWD.PACK GT SCH (09:00)
[2018-01-26] MEDS: NEOMY SULF/BACITRAC ZN/POLY 15 GM TUBE TP SCH ×5 (09:00→21:00)
[2018-01-26] MEDS: ACIDOPHILUS/BULGARICUS 1 EACH TAB.CHEW GT SCH (09:00)
[2018-01-26] MEDS: POLYVINYL ALCOHOL 15 ML BOTTLE EACHEYE SCH ×4 (09:00→21:00)
[2018-01-26] MEDS: HEPARIN SODIUM, PORCINE 5000 UNITS/1 ML VIAL SQ SCH (09:00)
[2018-01-26] MEDS: AMIODARONE HCL 200 MG TABLET GT SCH (09:00)
[2018-01-26] MEDS: HYDROCODONE/APAP 5/325MG 1 EACH TABLET GT PRN ×2 (10:30→22:28)
--- NOTE | 2018-01-26 11:50 | NUR ---
Notified Dr. David that resident has blood in the stool, currently patient receiving Heparin. Spoke with Mrs. Bradley and notified of the change in condition. She said that she wants the patient to stay in subacute to do what we can in the unit "I just want him to be cared for and a little bit of treatment, I already accepted what will happen." Dr. David ordered to hold Heparin and Kirk made aware of the orders and updated her of the ATB order from last night. Appreciated the call.
--- NOTE | 2018-01-26 16:04 | NUR ---
PT JENI'D ON MECHANICAL VENT. TXS GIVEN AND NO ADVERSE REACTION NOTED. PT SX T/O SHIFT. PT JENI PATENT AND SECURE. AMBU BAG AT BEDSIDE. VENT PLUGGED INTO RED OUTLET. ALARMS ARE ON AND AUDIBLE. Addendum: 01/26/18 at 1608 by ZORAIDA COLINDRES RT Amended: Links added.
--- NOTE | 2018-01-26 18:07 | NUR ---
RT NOTE LATE ENTRY @ 1536 BLOOD TINGED SECRETIONS. LAVAGED PT. LORE TYLER NOTIFIED.
[2018-01-26] MEDS: NEPRO 1,000 ML BOTTLE GT PRN (18:21)
[2018-01-26] MEDS: FINASTERIDE (5 MG) 5 MG TABLET GT SCH (20:00)
[2018-01-26 20:16] VITALS: BP 142/76
[2018-01-26] MEDS: MULTIVIT, IRON, MIN NO. 8, FA 1 TAB GT SCH (21:00)
[2018-01-26] MEDS: DOCUSATE SODIUM LIQ 100 MG/10 ML UDC GT SCH (21:00)
[2018-01-26] MEDS: ASCORBIC ACID 500 MG TABLET GT SCH (21:00)
[2018-01-26] MEDS: SENNOSIDES 8.6 MG TABLET GT SCH (22:27)
[2018-01-26] MEDS: TOBRAMYCIN INH SCH (22:40)
[2018-01-26] MEDS: D5W INH SCH (22:40)
[2018-01-27] MEDS: ALBUTEROL FS 2.5 MG/3 ML VIAL.NEB NEB SCH ×4 (01:22→19:56)
[2018-01-27] MEDS: IPRATROPIUM NEB FS 0.5 MG/2.5 ML AMPUL.NEB NEB SCH ×4 (01:22→19:56)
[2018-01-27] MEDS: LORAZEPAM 0.5 MG TABLET GT PRN (03:32)
--- NOTE | 2018-01-27 03:32 | NUR ---
pt awake. agitated. LH=239 OP=213/64 RR= 22 and grinding his teeth. suctioning done, with thick yellow secretion. PRN Ativan given. patient repositioned for comfort. will continue to monitor.
[2018-01-27] MEDS: BACLOFEN (10 MG) 10 MG TABLET GT SCH ×3 (05:00→20:25)
[2018-01-27] MEDS: GLYCOPYRROLATE 1 MG TABLET GT SCH ×5 (06:51→23:14)
[2018-01-27] MEDS: LEVOTHYROXINE SODIUM 125 MCG TABLET GT SCH (06:51)
[2018-01-27 07:31] VITALS: BP 129/72
[2018-01-27 07:55] LABS: CALCIUM, SERUM 9.5 mg/dL (8.5-10.1); CREATININE 1.7 mg/dL (0.6-1.3); POTASSIUM 4.8 mmol/L (3.5-5.1)
[2018-01-27] MEDS: AMIODARONE HCL 200 MG TABLET GT SCH (08:30)
[2018-01-27] MEDS: POLYVINYL ALCOHOL 15 ML BOTTLE EACHEYE SCH ×4 (08:30→20:25)
[2018-01-27] MEDS: POLYETHYLENE GLYCOL 3350 17 GM POWD.PACK GT SCH (08:31)
[2018-01-27] MEDS: ACIDOPHILUS/BULGARICUS 1 EACH TAB.CHEW GT SCH (08:31)
[2018-01-27] MEDS: POTASSIUM CHLORIDE 20 MEQ/15 ML ML GT SCH (08:32)
[2018-01-27] MEDS: OMEPRAZOLE 10 MG CAPSULE.DR GT SCH (08:32)
[2018-01-27] MEDS: HYDROGEN PEROXIDE 480 ML BOTTLE TP SCH ×2 (10:34→20:25)
[2018-01-27] MEDS: NEOMY SULF/BACITRAC ZN/POLY 15 GM TUBE TP SCH ×5 (10:35→20:26)
[2018-01-27] MEDS: ZINC OXIDE 30 GM TUBE TP SCH ×2 (10:35→20:26)
--- NOTE | 2018-01-27 15:00 | NUR ---
FORESTRY ENGINEER reported that patient has blood in stools, reassessed and noted soft stools with mixture of blood in moderate amount. Provided good rita care, kept dry and clean at all times. Patient not in distress, awake, no facial grimacing noted at this time Dependent on mech vent, tolerating well. Has victoria catheter patent and intact draining to yellow urine output, no further bleeding noted at this time. Currently on IV ATB for UTI. Dr. David made aware yesterday of episode of blood in stools, heparin on hold. Patients' aware, she called this morning and she made CN aware for any reports just call and leave her a message and she will visit her preethi. V/S 140/88. 108, 12, 98.9. Patient closely monitored.
[2018-01-27] MEDS: NEPRO 1,000 ML BOTTLE GT PRN (18:34)
[2018-01-27 20:06] VITALS: BP 136/74
[2018-01-27] MEDS: ASCORBIC ACID 500 MG TABLET GT SCH (20:25)
[2018-01-27] MEDS: MULTIVIT, IRON, MIN NO. 8, FA 1 TAB GT SCH (20:25)
[2018-01-27] MEDS: DOCUSATE SODIUM LIQ 100 MG/10 ML UDC GT SCH (20:25)
[2018-01-27] MEDS: FINASTERIDE (5 MG) 5 MG TABLET GT SCH (20:25)
[2018-01-27 21:14] LABS: CREATININE 1.7 mg/dL (0.6-1.3)
[2018-01-27] MEDS: SENNOSIDES 8.6 MG TABLET GT SCH (21:47)
--- NOTE | 2018-01-27 22:35 | NUR ---
MS/RN NOTES CALLED [facility] TO VERIFY HOLDING PARAMETERS FOR TOBRAMYCIN TROUGH. PT. TOBRAMYCIN TROUGH RESULTED AT 0.9, BUN 36, CREATININE 1.7. PER SANDBLASTER SUPERVISOR PHARMACIST (MADDISON) "OK TO ADMINISTER MEDICATION ORDERED, LAB RESULTS WILL AFFECT THE NEXT DOSE OF THE MEDICATION TO BE ADMINISTERED". WILL ADMINISTER TO PT. TOBRAMYCIN MEDICATION ORDERED. WILL CONTINUE TO MONITOR.
[2018-01-27] MEDS: TOBRAMYCIN INH SCH (22:40)
[2018-01-27] MEDS: D5W INH SCH (22:40)
[2018-01-28] MEDS: IPRATROPIUM NEB FS 0.5 MG/2.5 ML AMPUL.NEB NEB SCH ×4 (01:09→19:59)
[2018-01-28] MEDS: ALBUTEROL FS 2.5 MG/3 ML VIAL.NEB NEB SCH ×4 (01:09→19:59)
[2018-01-28] MEDS: BACLOFEN (10 MG) 10 MG TABLET GT SCH ×3 (05:46→20:34)
[2018-01-28] MEDS: GLYCOPYRROLATE 1 MG TABLET GT SCH ×4 (05:46→23:20)
[2018-01-28] MEDS: LEVOTHYROXINE SODIUM 125 MCG TABLET GT SCH (05:46)
[2018-01-28 08:09] VITALS: BP 118/59
[2018-01-28] MEDS: AMIODARONE HCL 200 MG TABLET GT SCH (08:45)
[2018-01-28] MEDS: ACIDOPHILUS/BULGARICUS 1 EACH TAB.CHEW GT SCH (08:46)
[2018-01-28] MEDS: OMEPRAZOLE 10 MG CAPSULE.DR GT SCH (08:46)
[2018-01-28] MEDS: POLYETHYLENE GLYCOL 3350 17 GM POWD.PACK GT SCH (08:46)
[2018-01-28] MEDS: POLYVINYL ALCOHOL 15 ML BOTTLE EACHEYE SCH ×4 (08:47→20:34)
[2018-01-28] MEDS: POTASSIUM CHLORIDE 20 MEQ/15 ML ML GT SCH (08:47)
[2018-01-28] MEDS: HYDROGEN PEROXIDE 480 ML BOTTLE TP SCH ×2 (10:00→20:34)
--- NOTE | 2018-01-28 10:50 | NUR ---
Assessed pt's left hip open skin. Open skin smaller in size 0.5 x 0.5 cm, surrounded by dark brownish skin staining.
[2018-01-28] MEDS: NEOMY SULF/BACITRAC ZN/POLY 15 GM TUBE TP SCH ×5 (11:00→20:35)
[2018-01-28] MEDS: ZINC OXIDE 30 GM TUBE TP SCH ×2 (11:00→20:35)
--- NOTE | 2018-01-28 17:13 | NUR ---
Seen by Dr. Palomo Nguyen and his MENTAL HEALTH PROFESSIONAL Izabela Saavedra. They assessed pt's left hip open skin and said it does not look like a DTI, but a brownish skin discoloration. MENTAL HEALTH PROFESSIONAL Izabela said it looks like a scar tissue. Pt has the same brownish skin discoloration on his buttocks. No new order at this time.
[2018-01-28] MEDS: DOCUSATE SODIUM LIQ 100 MG/10 ML UDC GT SCH (20:34)
[2018-01-28] MEDS: ASCORBIC ACID 500 MG TABLET GT SCH (20:34)
[2018-01-28] MEDS: FINASTERIDE (5 MG) 5 MG TABLET GT SCH (20:34)
[2018-01-28] MEDS: MULTIVIT, IRON, MIN NO. 8, FA 1 TAB GT SCH (20:34)
[2018-01-28 21:50] VITALS: BP 137/91
[2018-01-28] MEDS: SENNOSIDES 8.6 MG TABLET GT SCH (22:09)
--- NOTE | 2018-01-28 22:30 | NUR ---
RN NOTE INFORMED [facility] THAT TOBRAMYCIN IV ATB IS NOT AVAILABLE AND NEEDED FOR TONIGHT DOSE. PER PHARMACY, TALKED WITH TORI, IT'S ON IT'S WAY BUT NOT SURE WHAT TIME IT WILL BE DELIVERED.
[2018-01-28] MEDS: TOBRAMYCIN IV SCH (23:00)
[2018-01-28] MEDS: D5W IV SCH (23:00)
--- NOTE | 2018-01-28 23:08 | NUR ---
RN NOTE [facility] DELIVERED THE IV ATB TOBRAMYCIN AT THIS TIME. DUE MED GIVEN ORDERED.
[2018-01-28] MEDS: NEPRO 1,000 ML BOTTLE GT PRN (23:20)
[2018-01-29] MEDS: ALBUTEROL FS 2.5 MG/3 ML VIAL.NEB NEB SCH ×4 (01:51→19:52)
[2018-01-29] MEDS: IPRATROPIUM NEB FS 0.5 MG/2.5 ML AMPUL.NEB NEB SCH ×4 (01:51→19:52)
[2018-01-29] MEDS: GLYCOPYRROLATE 1 MG TABLET GT SCH ×4 (05:44→23:39)
[2018-01-29] MEDS: BACLOFEN (10 MG) 10 MG TABLET GT SCH ×3 (05:44→20:51)
[2018-01-29] MEDS: LEVOTHYROXINE SODIUM 125 MCG TABLET GT SCH (05:44)
--- NOTE | 2018-01-29 06:58 | NUR ---
Resident had BM x1 with blood in stool. Charge Nurse RN made aware. Will continue to monitor.
[2018-01-29 07:31] LABS: BASOPHILS # (AUTO) 0.1 /CMM (0.0-0.2); BASOPHILS % (AUTO) 0.3 % (0.0-2.0); EOSINOPHILS % (AUTO) 1.7 % (0.0-6.0); HEMATOCRIT 25 % (39-51); HEMOGLOBIN 7.8 g/dL (13.5-17.5); LYMPHOCYTES # (AUTO) 1.6 /CMM (0.8-4.8); LYMPHOCYTES % (AUTO) 8.3 % (20.0-44.0); MEAN CORPUSCULAR HEMOGLOBIN 23 PG (26.0-33.0); MEAN CORPUSCULAR HGB CONC 32 g/dl (31.0-36.0); MEAN CORPUSCULAR VOLUME 72 fL (80-96); MONOCYTES # (AUTO) 2.2 /CMM (0.1-1.30); MONOCYTES % (AUTO) 11.8 % (2.0-12.0); NEUTROPHILS # (AUTO) 14.8 /CMM (1.8-8.9); NEUTROPHILS % (AUTO) 77.9 % (43.0-81.0); PLATELET COUNT (AUTO) 504 /CMM (150-450); RDW COEFFICIENT OF VARIATION 19.6 (11.5-15.0); RED BLOOD CELL COUNT(AUTO) 3.42 MIL/uL (4.5-6.0)
[2018-01-29 08:06] VITALS: BP 106/71
[2018-01-29] MEDS: POLYVINYL ALCOHOL 15 ML BOTTLE EACHEYE SCH ×4 (09:29→20:51)
[2018-01-29] MEDS: OMEPRAZOLE 10 MG CAPSULE.DR GT SCH (09:30)
[2018-01-29] MEDS: NEOMY SULF/BACITRAC ZN/POLY 15 GM TUBE TP SCH ×5 (09:30→20:51)
[2018-01-29] MEDS: POLYETHYLENE GLYCOL 3350 17 GM POWD.PACK GT SCH (09:30)
[2018-01-29] MEDS: AMIODARONE HCL 200 MG TABLET GT SCH (09:30)
[2018-01-29] MEDS: HYDROGEN PEROXIDE 480 ML BOTTLE TP SCH ×2 (09:30→20:51)
[2018-01-29] MEDS: ACIDOPHILUS/BULGARICUS 1 EACH TAB.CHEW GT SCH (09:30)
[2018-01-29] MEDS: ZINC OXIDE 30 GM TUBE TP SCH ×2 (09:30→20:51)
[2018-01-29] MEDS: POTASSIUM CHLORIDE 20 MEQ/15 ML ML GT SCH (09:30)
[2018-01-29 09:41] LABS: BAND % (MANUAL) 5 % (0.0-5.0); EOSINOPHILS % (MANUAL) 1 % (0-4); LYMPHOCYTES % (MANUAL) 15 % (16-48); MONOCYTES % (MANUAL) 2 % (0-11.0); NEUTROPHILS % (MANUAL) 77 (42-76)
--- NOTE | 2018-01-29 09:45 | NUR ---
WOUND CARE CONSULT: PT SEEN FOR LEFT HIP OPEN SKIN WITH SURROUNDING SKIN STAINING (BROWN). OPEN SKIN MEASURES 0.5CM X 0.5CM X 0.1CM AND IS PINK IN COLOR, NO DRAINAGE NOTED. ORDER FOR TRIPLE ANTIBIOTIC TO OPEN AREA AND COVER WITH MEPILEX REVIEWED WITH NURSING STAFF. OFFLOAD AREA. CONTINUE ALL SKIN PROTECTION MEASURES. WILL SEE PRN. IN AGREEMENT WITH PLAN OF CARE. PT WAS PREVIOUSLY SEEN ON 01/25/18 FOR LEFT HIP AND WOUND NOW RECLASSIFIED OPEN SKIN WITH SURROUNDING SKIN STAINING. NO PURPLE COLOR NOTED.
--- NOTE | 2018-01-29 10:35 | NUR ---
Seen by Dr. David. Notified him pt's stool still reddish brown. Heparin still on hold. Relayed CBC result to Dr. David. No new order.
[2018-01-29 19:50] VITALS: BP 109/66
[2018-01-29] MEDS: TOBRAMYCIN IV SCH (20:41)
[2018-01-29] MEDS: D5W IV SCH (20:41)
[2018-01-29] MEDS: DOCUSATE SODIUM LIQ 100 MG/10 ML UDC GT SCH (20:51)
[2018-01-29] MEDS: MULTIVIT, IRON, MIN NO. 8, FA 1 TAB GT SCH (20:51)
[2018-01-29] MEDS: FINASTERIDE (5 MG) 5 MG TABLET GT SCH (20:51)
[2018-01-29] MEDS: ASCORBIC ACID 500 MG TABLET GT SCH (20:51)
[2018-01-29] MEDS: SENNOSIDES 8.6 MG TABLET GT SCH (21:53)
[2018-01-30] MEDS: NEPRO 1,000 ML BOTTLE GT PRN (01:46)
[2018-01-30] MEDS: IPRATROPIUM NEB FS 0.5 MG/2.5 ML AMPUL.NEB NEB SCH ×4 (02:02→19:30)
[2018-01-30] MEDS: ALBUTEROL FS 2.5 MG/3 ML VIAL.NEB NEB SCH ×4 (02:02→19:30)
[2018-01-30] MEDS: GLYCOPYRROLATE 1 MG TABLET GT SCH ×4 (05:03→23:15)
[2018-01-30] MEDS: BACLOFEN (10 MG) 10 MG TABLET GT SCH ×3 (05:03→20:20)
[2018-01-30] MEDS: LEVOTHYROXINE SODIUM 125 MCG TABLET GT SCH (05:03)
[2018-01-30 07:52] VITALS: BP 112/76
[2018-01-30] MEDS: NEOMY SULF/BACITRAC ZN/POLY 15 GM TUBE TP SCH ×4 (09:00→20:20)
[2018-01-30] MEDS: ACIDOPHILUS/BULGARICUS 1 EACH TAB.CHEW GT SCH (09:10)
[2018-01-30] MEDS: POLYETHYLENE GLYCOL 3350 17 GM POWD.PACK GT SCH (09:11)
[2018-01-30] MEDS: POTASSIUM CHLORIDE 20 MEQ/15 ML ML GT SCH (09:11)
[2018-01-30] MEDS: AMIODARONE HCL 200 MG TABLET GT SCH (09:11)
[2018-01-30] MEDS: HYDROGEN PEROXIDE 480 ML BOTTLE TP SCH ×2 (09:11→20:20)
[2018-01-30] MEDS: OMEPRAZOLE 10 MG CAPSULE.DR GT SCH (09:11)
[2018-01-30] MEDS: POLYVINYL ALCOHOL 15 ML BOTTLE EACHEYE SCH ×4 (09:14→20:20)
[2018-01-30] MEDS: ZINC OXIDE 30 GM TUBE TP SCH ×2 (09:14→20:20)
[2018-01-30 20:07] VITALS: BP 135/81
[2018-01-30] MEDS: FINASTERIDE (5 MG) 5 MG TABLET GT SCH (20:19)
[2018-01-30] MEDS: DOCUSATE SODIUM LIQ 100 MG/10 ML UDC GT SCH (20:20)
[2018-01-30] MEDS: MULTIVIT, IRON, MIN NO. 8, FA 1 TAB GT SCH (20:20)
[2018-01-30] MEDS: ASCORBIC ACID 500 MG TABLET GT SCH (20:20)
[2018-01-30] MEDS: D5W IV SCH (20:40)
[2018-01-30] MEDS: TOBRAMYCIN IV SCH (20:40)
--- NOTE | 2018-01-30 21:06 | NUR ---
[facility] WITH NOTED SETTINGS. TRACH IS PATENT AND WELL SECURED. ASSOCIATE PROFESSOR OF CHEMISTRY DONE. VENT PLUGGED INTO RED OUTLET. ALARMS ON AND AUDIBLE. AMBU BAG @ HOB. BREATHING TX GIVEN PER MD'S ORDERED. NO ADVERSE REACTION NOTED. SUCTIONED COPIOUS AMOUNT OF THICK YELLOW SECRETIONS. NO RESP DISTRESS NOTED. WILL CONT TO MONITOR PATIENT.
[2018-01-30] MEDS: SENNOSIDES 8.6 MG TABLET GT SCH (22:11)
[2018-01-31] MEDS: NEPRO 1,000 ML BOTTLE GT PRN (01:18)
[2018-01-31] MEDS: IPRATROPIUM NEB FS 0.5 MG/2.5 ML AMPUL.NEB NEB SCH ×4 (01:28→21:27)
[2018-01-31] MEDS: ALBUTEROL FS 2.5 MG/3 ML VIAL.NEB NEB SCH ×4 (01:29→21:27)
[2018-01-31] MEDS: LEVOTHYROXINE SODIUM 125 MCG TABLET GT SCH (05:09)
[2018-01-31] MEDS: BACLOFEN (10 MG) 10 MG TABLET GT SCH ×3 (05:09→21:15)
[2018-01-31] MEDS: GLYCOPYRROLATE 1 MG TABLET GT SCH ×4 (05:09→23:05)
[2018-01-31 07:07] LABS: BASOPHILS # (AUTO) 0.1 /CMM (0.0-0.2); BASOPHILS % (AUTO) 0.8 % (0.0-2.0); HEMATOCRIT 24 % (39-51); HEMOGLOBIN 7.7 g/dL (13.5-17.5); LYMPHOCYTES # (AUTO) 1.5 /CMM (0.8-4.8); LYMPHOCYTES % (AUTO) 9.5 % (20.0-44.0); MEAN CORPUSCULAR HEMOGLOBIN 23 PG (26.0-33.0); MEAN CORPUSCULAR HGB CONC 33 g/dl (31.0-36.0); MEAN CORPUSCULAR VOLUME 71 fL (80-96); MONOCYTES # (AUTO) 1.5 /CMM (0.1-1.30); MONOCYTES % (AUTO) 9.9 % (2.0-12.0); NEUTROPHILS % (AUTO) 77.8 % (43.0-81.0); PLATELET COUNT (AUTO) 546 /CMM (150-450); RDW COEFFICIENT OF VARIATION 18.7 (11.5-15.0); RED BLOOD CELL COUNT(AUTO) 3.34 MIL/uL (4.5-6.0); WHITE BLOOD COUNT (AUTO) 15.5 K/uL (4.3-11.0)
[2018-01-31 08:06] VITALS: BP 141/84
[2018-01-31] MEDS: POLYVINYL ALCOHOL 15 ML BOTTLE EACHEYE SCH ×4 (09:12→21:15)
[2018-01-31] MEDS: HYDROGEN PEROXIDE 480 ML BOTTLE TP SCH ×2 (09:13→21:15)
[2018-01-31] MEDS: OMEPRAZOLE 10 MG CAPSULE.DR GT SCH (09:13)
[2018-01-31] MEDS: POLYETHYLENE GLYCOL 3350 17 GM POWD.PACK GT SCH (09:13)
[2018-01-31] MEDS: ACIDOPHILUS/BULGARICUS 1 EACH TAB.CHEW GT SCH (09:13)
[2018-01-31] MEDS: ZINC OXIDE 30 GM TUBE TP SCH ×2 (09:13→21:15)
[2018-01-31] MEDS: POTASSIUM CHLORIDE 20 MEQ/15 ML ML GT SCH (09:13)
[2018-01-31] MEDS: AMIODARONE HCL 200 MG TABLET GT SCH (09:13)
[2018-01-31] MEDS: NEOMY SULF/BACITRAC ZN/POLY 15 GM TUBE TP SCH ×3 (09:13→21:15)
[2018-01-31] MEDS: LORAZEPAM 0.5 MG TABLET GT PRN (09:28)
--- NOTE | 2018-01-31 14:44 | NUR ---
RT NOTES RECEIVED TRACHED PT ON MECHANICAL VENT WITH NOTED SETTINGS. ORACLE PROGRAMMER DONE. VENT PLUGGED INTO RED OUTLET. ALARMS ON AND AUDIBLE. AMBU BAG IS BY BEDSIDE. BREATHING TX GIVEN PER MD'S ORDER. NO ADVERSE REACTION NOTED. SX'D LARGE AMOUNT OF THICK YELLOW SECRETIONS. NO RESP DISTRESS NOTED. WILL CONT TO MONITOR PATIENT. Addendum: 01/31/18 at 1444 by BRAULIO SCOTT RT Amended: Links added.
[2018-01-31] MEDS: FINASTERIDE (5 MG) 5 MG TABLET GT SCH (20:05)
--- NOTE | 2018-01-31 21:00 | NUR ---
Pt noted with streak of blood in the stool small amount.Will continue to monitor.
[2018-01-31] MEDS: DOCUSATE SODIUM LIQ 100 MG/10 ML UDC GT SCH (21:15)
[2018-01-31] MEDS: ASCORBIC ACID 500 MG TABLET GT SCH (21:15)
[2018-01-31] MEDS: SENNOSIDES 8.6 MG TABLET GT SCH (21:15)
[2018-01-31] MEDS: MULTIVIT, IRON, MIN NO. 8, FA 1 TAB GT SCH (21:15)
[2018-01-31 22:53] VITALS: BP 99/62
[2018-02-01] MEDS: NEPRO 1,000 ML BOTTLE GT PRN ×2 (00:21→19:00)
[2018-02-01] MEDS: ALBUTEROL FS 2.5 MG/3 ML VIAL.NEB NEB SCH ×4 (02:39→19:50)
[2018-02-01] MEDS: IPRATROPIUM NEB FS 0.5 MG/2.5 ML AMPUL.NEB NEB SCH ×4 (02:39→19:30)
[2018-02-01] MEDS: GLYCOPYRROLATE 1 MG TABLET GT SCH ×4 (05:27→23:24)
[2018-02-01] MEDS: BACLOFEN (10 MG) 10 MG TABLET GT SCH ×3 (05:27→20:32)
[2018-02-01] MEDS: LEVOTHYROXINE SODIUM 125 MCG TABLET GT SCH (05:27)
[2018-02-01 08:00] VITALS: BP 99/58
[2018-02-01] MEDS: NEOMY SULF/BACITRAC ZN/POLY 15 GM TUBE TP SCH ×3 (09:26→21:00)
[2018-02-01] MEDS: ACIDOPHILUS/BULGARICUS 1 EACH TAB.CHEW GT SCH (09:26)
[2018-02-01] MEDS: HYDROGEN PEROXIDE 480 ML BOTTLE TP SCH ×2 (09:26→20:32)
[2018-02-01] MEDS: AMIODARONE HCL 200 MG TABLET GT SCH (09:26)
[2018-02-01] MEDS: POLYETHYLENE GLYCOL 3350 17 GM POWD.PACK GT SCH (09:26)
[2018-02-01] MEDS: POTASSIUM CHLORIDE 20 MEQ/15 ML ML GT SCH (09:26)
[2018-02-01] MEDS: POLYVINYL ALCOHOL 15 ML BOTTLE EACHEYE SCH ×4 (09:26→20:31)
[2018-02-01] MEDS: OMEPRAZOLE 10 MG CAPSULE.DR GT SCH (09:26)
[2018-02-01] MEDS: ZINC OXIDE 30 GM TUBE TP SCH ×2 (09:27→20:32)
--- NOTE | 2018-02-01 19:10 | NUR ---
Seen and examined by Vivian Posada NP for Dr. David. NNO given.
[2018-02-01] MEDS: FINASTERIDE (5 MG) 5 MG TABLET GT SCH (20:31)
[2018-02-01] MEDS: DOCUSATE SODIUM LIQ 100 MG/10 ML UDC GT SCH (20:32)
[2018-02-01] MEDS: MULTIVIT, IRON, MIN NO. 8, FA 1 TAB GT SCH (20:32)
[2018-02-01] MEDS: ASCORBIC ACID 500 MG TABLET GT SCH (20:32)
--- NOTE | 2018-02-01 21:00 | NUR ---
Pt concerned regarding pt low grade temp of 99.0 ,she asking maybe we can follow some labs.Will endorse and will monitor patient.
[2018-02-01] MEDS: SENNOSIDES 8.6 MG TABLET GT SCH (22:39)
[2018-02-01 23:38] VITALS: BP 96/60
[2018-02-02] MEDS: ALBUTEROL FS 2.5 MG/3 ML VIAL.NEB NEB SCH ×4 (01:49→20:33)
[2018-02-02] MEDS: IPRATROPIUM NEB FS 0.5 MG/2.5 ML AMPUL.NEB NEB SCH ×4 (01:49→20:33)
[2018-02-02] MEDS: LEVOTHYROXINE SODIUM 125 MCG TABLET GT SCH (05:18)
[2018-02-02] MEDS: GLYCOPYRROLATE 1 MG TABLET GT SCH ×4 (05:18→23:58)
[2018-02-02] MEDS: BACLOFEN (10 MG) 10 MG TABLET GT SCH ×3 (05:18→20:58)
[2018-02-02 07:40] VITALS: BP 118/61
[2018-02-02] MEDS: ZINC OXIDE 30 GM TUBE TP SCH ×2 (09:00→20:59)
[2018-02-02] MEDS: NEOMY SULF/BACITRAC ZN/POLY 15 GM TUBE TP SCH ×4 (09:00→20:59)
[2018-02-02] MEDS: HYDROGEN PEROXIDE 480 ML BOTTLE TP SCH ×2 (09:00→20:59)
[2018-02-02] MEDS: POLYVINYL ALCOHOL 15 ML BOTTLE EACHEYE SCH ×4 (09:30→20:58)
[2018-02-02] MEDS: AMIODARONE HCL 200 MG TABLET GT SCH (09:41)
[2018-02-02] MEDS: ACIDOPHILUS/BULGARICUS 1 EACH TAB.CHEW GT SCH (09:41)
[2018-02-02] MEDS: POLYETHYLENE GLYCOL 3350 17 GM POWD.PACK GT SCH (09:42)
[2018-02-02] MEDS: POTASSIUM CHLORIDE 20 MEQ/15 ML ML GT SCH (09:42)
[2018-02-02] MEDS: OMEPRAZOLE 10 MG CAPSULE.DR GT SCH (09:42)
[2018-02-02] MEDS: HYDROCODONE/APAP 5/325MG 1 EACH TABLET GT PRN (09:44)
[2018-02-02] MEDS: DOCUSATE SODIUM LIQ 100 MG/10 ML UDC GT SCH (20:58)
[2018-02-02] MEDS: FINASTERIDE (5 MG) 5 MG TABLET GT SCH (20:58)
[2018-02-02] MEDS: MULTIVIT, IRON, MIN NO. 8, FA 1 TAB GT SCH (20:58)
[2018-02-02] MEDS: ASCORBIC ACID 500 MG TABLET GT SCH (20:58)
[2018-02-02 22:34] VITALS: BP 111/64
[2018-02-02] MEDS: SENNOSIDES 8.6 MG TABLET GT SCH (22:44)
[2018-02-03] MEDS: NEPRO 1,000 ML BOTTLE GT PRN (02:13)
[2018-02-03] MEDS: ALBUTEROL FS 2.5 MG/3 ML VIAL.NEB NEB SCH ×4 (02:31→20:45)
[2018-02-03] MEDS: IPRATROPIUM NEB FS 0.5 MG/2.5 ML AMPUL.NEB NEB SCH ×4 (02:31→20:45)
--- NOTE | 2018-02-03 02:52 | NUR ---
PT JENI'D ON MECHANICAL VENT. TXS GIVEN AND NO ADVERSE REACTION NOTED. SX DONE T/O SHIFT. PT TRACH PATENT AND SECURE. AMBU BAG AT BEDSIDE. VENT PLUGGED INTO RED OUTLET. ALARMS ARE SET AND AUDIBLE. WILL CONTINUE TO MONITOR. Addendum: 02/03/18 at 0253 by ZORAIDA COLINDRES RT Amended: Links added.
[2018-02-03] MEDS: BACLOFEN (10 MG) 10 MG TABLET GT SCH ×3 (05:48→21:06)
[2018-02-03] MEDS: LEVOTHYROXINE SODIUM 125 MCG TABLET GT SCH (05:48)
[2018-02-03] MEDS: GLYCOPYRROLATE 1 MG TABLET GT SCH ×4 (05:48→23:38)
[2018-02-03] MEDS: POLYVINYL ALCOHOL 15 ML BOTTLE EACHEYE SCH ×4 (08:57→21:06)
[2018-02-03] MEDS: NEOMY SULF/BACITRAC ZN/POLY 15 GM TUBE TP SCH ×4 (08:58→21:07)
[2018-02-03] MEDS: OMEPRAZOLE 10 MG CAPSULE.DR GT SCH (08:58)
[2018-02-03] MEDS: POTASSIUM CHLORIDE 20 MEQ/15 ML ML GT SCH (08:58)
[2018-02-03] MEDS: POLYETHYLENE GLYCOL 3350 17 GM POWD.PACK GT SCH (08:58)
[2018-02-03] MEDS: HYDROGEN PEROXIDE 480 ML BOTTLE TP SCH ×2 (08:58→21:07)
[2018-02-03] MEDS: ACIDOPHILUS/BULGARICUS 1 EACH TAB.CHEW GT SCH (08:58)
[2018-02-03] MEDS: AMIODARONE HCL 200 MG TABLET GT SCH (08:58)
[2018-02-03] MEDS: ZINC OXIDE 30 GM TUBE TP SCH ×2 (08:58→21:07)
[2018-02-03] MEDS: LORAZEPAM 0.5 MG TABLET GT PRN (09:36)
[2018-02-03 12:14] VITALS: BP 129/76
--- NOTE | 2018-02-03 16:19 | NUR ---
Resident does not have any stool in his BM anymore, Heparin resumed. MD David ordered a follow-up CBC in AM. informed.
--- NOTE | 2018-02-03 17:54 | NUR ---
PT TRACH'D ON MECHANICAL VENT. TXS GIVEN AND NO ADVERSE REACTION NOTED. SX DONE T/O SHIFT. PT TRACH PATENT AND SECURE. AMBU BAG AT BEDSIDE. VENT PLUGGED INTO RED OUTLET. ALARMS ARE SET AND AUDIBLE. WILL CONTINUE TO MONITOR.
[2018-02-03 20:11] VITALS: BP 109/64
--- NOTE | 2018-02-03 20:45 | NUR ---
RT NOTE PATIENT RECEIVED TRACHED IN STABLE CONDITION ON MECHANICAL VENT. PATIENT IS TOLERATING CURRENT ORDERED VENT SETTINGS WELL. NO SIGNS OF RESPIRATORY DISTRESS NOTED. TRACH IS PATENT AND SECURE. MECHANICAL VENT IS PLUGGED INTO RED OUTLET. ALARMS ARE SET AND AUDIBLE. EMERGENCY EQUIPMENT IS AT PATIENT BEDSIDE. Addendum: 02/03/18 at 2050 by REG OSCAR RT Amended: Links added.
[2018-02-03] MEDS: FINASTERIDE (5 MG) 5 MG TABLET GT SCH (21:06)
[2018-02-03] MEDS: DOCUSATE SODIUM LIQ 100 MG/10 ML UDC GT SCH (21:06)
[2018-02-03] MEDS: MULTIVIT, IRON, MIN NO. 8, FA 1 TAB GT SCH (21:07)
[2018-02-03] MEDS: ASCORBIC ACID 500 MG TABLET GT SCH (21:07)
[2018-02-03] MEDS: HEPARIN SODIUM, PORCINE 5000 UNITS/1 ML VIAL SQ SCH (21:07)
[2018-02-03] MEDS: SENNOSIDES 8.6 MG TABLET GT SCH (21:08)
[2018-02-04] MEDS: ALBUTEROL FS 2.5 MG/3 ML VIAL.NEB NEB SCH ×4 (01:24→19:44)
[2018-02-04] MEDS: IPRATROPIUM NEB FS 0.5 MG/2.5 ML AMPUL.NEB NEB SCH ×4 (01:24→19:44)
[2018-02-04] MEDS: LEVOTHYROXINE SODIUM 125 MCG TABLET GT SCH (05:20)
[2018-02-04] MEDS: GLYCOPYRROLATE 1 MG TABLET GT SCH ×4 (05:20→23:04)
[2018-02-04] MEDS: BACLOFEN (10 MG) 10 MG TABLET GT SCH ×3 (05:20→20:10)
[2018-02-04] MEDS: NEPRO 1,000 ML BOTTLE GT PRN (05:20)
[2018-02-04 07:18] LABS: BASOPHILS # (AUTO) 0.1 /CMM (0.0-0.2); BASOPHILS % (AUTO) 0.4 % (0.0-2.0); EOSINOPHILS % (AUTO) 1.9 % (0.0-6.0); HEMATOCRIT 25 % (39-51); HEMOGLOBIN 7.8 g/dL (13.5-17.5); LYMPHOCYTES # (AUTO) 2.2 /CMM (0.8-4.8); LYMPHOCYTES % (AUTO) 13.4 % (20.0-44.0); MEAN CORPUSCULAR HEMOGLOBIN 23 PG (26.0-33.0); MEAN CORPUSCULAR HGB CONC 32 g/dl (31.0-36.0); MEAN CORPUSCULAR VOLUME 71 fL (80-96); MONOCYTES # (AUTO) 1.5 /CMM (0.1-1.30); MONOCYTES % (AUTO) 9.1 % (2.0-12.0); NEUTROPHILS # (AUTO) 12.2 /CMM (1.8-8.9); NEUTROPHILS % (AUTO) 75.2 % (43.0-81.0); PLATELET COUNT (AUTO) 557 /CMM (150-450); RDW COEFFICIENT OF VARIATION 19.2 (11.5-15.0); RED BLOOD CELL COUNT(AUTO) 3.42 MIL/uL (4.5-6.0); WHITE BLOOD COUNT (AUTO) 16.2 K/uL (4.3-11.0)
[2018-02-04 08:24] VITALS: BP 115/53
[2018-02-04] MEDS: HYDROGEN PEROXIDE 480 ML BOTTLE TP SCH ×2 (09:00→20:10)
[2018-02-04] MEDS: ZINC OXIDE 30 GM TUBE TP SCH ×2 (09:00→20:11)
[2018-02-04] MEDS: NEOMY SULF/BACITRAC ZN/POLY 15 GM TUBE TP SCH ×4 (09:00→20:11)
[2018-02-04 09:22] LABS: BAND % (MANUAL) 10 % (0.0-5.0); LYMPHOCYTES % (MANUAL) 2 % (16-48); MONOCYTES % (MANUAL) 10 % (0-11.0); NEUTROPHILS % (MANUAL) 78 (42-76)
[2018-02-04] MEDS: ACIDOPHILUS/BULGARICUS 1 EACH TAB.CHEW GT SCH (09:37)
[2018-02-04] MEDS: POLYETHYLENE GLYCOL 3350 17 GM POWD.PACK GT SCH (09:37)
[2018-02-04] MEDS: AMIODARONE HCL 200 MG TABLET GT SCH (09:37)
[2018-02-04] MEDS: POLYVINYL ALCOHOL 15 ML BOTTLE EACHEYE SCH ×4 (09:37→20:10)
[2018-02-04] MEDS: OMEPRAZOLE 10 MG CAPSULE.DR GT SCH (09:38)
[2018-02-04] MEDS: POTASSIUM CHLORIDE 20 MEQ/15 ML ML GT SCH (09:38)
[2018-02-04] MEDS: HEPARIN SODIUM, PORCINE 5000 UNITS/1 ML VIAL SQ SCH ×2 (09:39→20:10)
[2018-02-04] MEDS: HYDROCODONE/APAP 5/325MG 1 EACH TABLET GT PRN (09:40)
[2018-02-04] MEDS: ASCORBIC ACID 500 MG TABLET GT SCH (20:10)
[2018-02-04] MEDS: FINASTERIDE (5 MG) 5 MG TABLET GT SCH (20:10)
[2018-02-04] MEDS: DOCUSATE SODIUM LIQ 100 MG/10 ML UDC GT SCH (20:10)
[2018-02-04] MEDS: MULTIVIT, IRON, MIN NO. 8, FA 1 TAB GT SCH (20:20)
[2018-02-04 20:33] VITALS: BP 104/73
[2018-02-04] MEDS: SENNOSIDES 8.6 MG TABLET GT SCH (21:44)
[2018-02-05] MEDS: IPRATROPIUM NEB FS 0.5 MG/2.5 ML AMPUL.NEB NEB SCH ×4 (01:23→19:50)
[2018-02-05] MEDS: ALBUTEROL FS 2.5 MG/3 ML VIAL.NEB NEB SCH ×4 (01:23→19:50)
[2018-02-05] MEDS: GLYCOPYRROLATE 1 MG TABLET GT SCH ×4 (05:14→23:11)
[2018-02-05] MEDS: LEVOTHYROXINE SODIUM 125 MCG TABLET GT SCH (05:14)
[2018-02-05] MEDS: BACLOFEN (10 MG) 10 MG TABLET GT SCH ×3 (05:14→20:18)
[2018-02-05 08:09] VITALS: BP 118/63
[2018-02-05] MEDS: POLYETHYLENE GLYCOL 3350 17 GM POWD.PACK GT SCH (09:00)
[2018-02-05] MEDS: ACIDOPHILUS/BULGARICUS 1 EACH TAB.CHEW GT SCH (09:00)
[2018-02-05] MEDS: HYDROGEN PEROXIDE 480 ML BOTTLE TP SCH ×2 (09:00→20:18)
[2018-02-05] MEDS: POTASSIUM CHLORIDE 20 MEQ/15 ML ML GT SCH (09:00)
[2018-02-05] MEDS: OMEPRAZOLE 10 MG CAPSULE.DR GT SCH (09:00)
[2018-02-05] MEDS: NEOMY SULF/BACITRAC ZN/POLY 15 GM TUBE TP SCH ×4 (09:00→20:18)
[2018-02-05] MEDS: POLYVINYL ALCOHOL 15 ML BOTTLE EACHEYE SCH ×4 (09:00→20:18)
[2018-02-05] MEDS: AMIODARONE HCL 200 MG TABLET GT SCH (09:00)
[2018-02-05] MEDS: HEPARIN SODIUM, PORCINE 5000 UNITS/1 ML VIAL SQ SCH ×2 (09:00→20:18)
[2018-02-05] MEDS: ZINC OXIDE 30 GM TUBE TP SCH ×2 (09:00→20:18)
[2018-02-05 20:12] VITALS: BP 116/61
[2018-02-05] MEDS: FINASTERIDE (5 MG) 5 MG TABLET GT SCH (20:18)
[2018-02-05] MEDS: DOCUSATE SODIUM LIQ 100 MG/10 ML UDC GT SCH (20:18)
[2018-02-05] MEDS: MULTIVIT, IRON, MIN NO. 8, FA 1 TAB GT SCH (20:18)
[2018-02-05] MEDS: ASCORBIC ACID 500 MG TABLET GT SCH (20:18)
[2018-02-05] MEDS: SENNOSIDES 8.6 MG TABLET GT SCH (21:53)
[2018-02-06] MEDS: NEPRO 1,000 ML BOTTLE GT PRN (01:28)
[2018-02-06] MEDS: ALBUTEROL FS 2.5 MG/3 ML VIAL.NEB NEB SCH ×4 (01:38→19:48)
[2018-02-06] MEDS: IPRATROPIUM NEB FS 0.5 MG/2.5 ML AMPUL.NEB NEB SCH ×4 (01:38→19:48)
[2018-02-06] MEDS: GLYCOPYRROLATE 1 MG TABLET GT SCH ×4 (05:03→23:26)
[2018-02-06] MEDS: LEVOTHYROXINE SODIUM 125 MCG TABLET GT SCH (05:03)
[2018-02-06] MEDS: BACLOFEN (10 MG) 10 MG TABLET GT SCH ×3 (05:03→20:17)
[2018-02-06 07:31] VITALS: BP 113/67
[2018-02-06] MEDS: POLYETHYLENE GLYCOL 3350 17 GM POWD.PACK GT SCH (08:52)
[2018-02-06] MEDS: ACIDOPHILUS/BULGARICUS 1 EACH TAB.CHEW GT SCH (08:52)
[2018-02-06] MEDS: AMIODARONE HCL 200 MG TABLET GT SCH (08:52)
[2018-02-06] MEDS: POTASSIUM CHLORIDE 20 MEQ/15 ML ML GT SCH (08:52)
[2018-02-06] MEDS: POLYVINYL ALCOHOL 15 ML BOTTLE EACHEYE SCH ×4 (08:52→20:17)
[2018-02-06] MEDS: OMEPRAZOLE 10 MG CAPSULE.DR GT SCH (08:52)
[2018-02-06] MEDS: HEPARIN SODIUM, PORCINE 5000 UNITS/1 ML VIAL SQ SCH ×2 (08:53→20:17)
[2018-02-06] MEDS: HYDROGEN PEROXIDE 480 ML BOTTLE TP SCH ×2 (09:44→20:17)
[2018-02-06] MEDS: NEOMY SULF/BACITRAC ZN/POLY 15 GM TUBE TP SCH ×4 (09:44→20:17)
[2018-02-06] MEDS: ZINC OXIDE 30 GM TUBE TP SCH ×2 (09:45→20:18)
--- NOTE | 2018-02-06 12:30 | NUR ---
Seen and examined by Dr. Paniagua, reviewed CBC taken on 02/04 with WBC of 16.2, patient afebrile. No new order given, he said it is chronic.
[2018-02-06 19:51] VITALS: BP 100/62
[2018-02-06] MEDS: DOCUSATE SODIUM LIQ 100 MG/10 ML UDC GT SCH (20:17)
[2018-02-06] MEDS: ASCORBIC ACID 500 MG TABLET GT SCH (20:17)
[2018-02-06] MEDS: MULTIVIT, IRON, MIN NO. 8, FA 1 TAB GT SCH (20:17)
[2018-02-06] MEDS: FINASTERIDE (5 MG) 5 MG TABLET GT SCH (20:17)
[2018-02-06] MEDS: SENNOSIDES 8.6 MG TABLET GT SCH (21:39)
--- NOTE | 2018-02-07 00:57 | NUR ---
PT JENI'D ON MECHANICAL VENTILATION. TX'S GIVEN AND NO ADVERSE REACTION NOTED. PT TRACH PATENT AND SECURE. AMBU BAG IS AT BEDSIDE. VENT PLUGGED INTO RED OUTLET. ALARMS ARE ON AND AUDIBLE. WILL CONTINUE TO MONITOR. Addendum: 02/07/18 at 0057 by BRAULIO SCOTT RT Amended: Links added.
[2018-02-07] MEDS: ALBUTEROL FS 2.5 MG/3 ML VIAL.NEB NEB SCH ×4 (01:49→20:53)
[2018-02-07] MEDS: IPRATROPIUM NEB FS 0.5 MG/2.5 ML AMPUL.NEB NEB SCH ×4 (01:49→20:53)
[2018-02-07] MEDS: BACLOFEN (10 MG) 10 MG TABLET GT SCH ×3 (05:43→21:51)
[2018-02-07] MEDS: LEVOTHYROXINE SODIUM 125 MCG TABLET GT SCH (05:43)
[2018-02-07] MEDS: GLYCOPYRROLATE 1 MG TABLET GT SCH ×3 (05:43→18:00)
[2018-02-07 07:57] VITALS: BP 146/93
[2018-02-07] MEDS: ZINC OXIDE 30 GM TUBE TP SCH ×2 (09:00→21:54)
[2018-02-07] MEDS: OMEPRAZOLE 10 MG CAPSULE.DR GT SCH (09:00)
[2018-02-07] MEDS: HEPARIN SODIUM, PORCINE 5000 UNITS/1 ML VIAL SQ SCH ×2 (09:00→21:51)
[2018-02-07] MEDS: ACIDOPHILUS/BULGARICUS 1 EACH TAB.CHEW GT SCH (09:00)
[2018-02-07] MEDS: AMIODARONE HCL 200 MG TABLET GT SCH (09:00)
[2018-02-07] MEDS: POLYVINYL ALCOHOL 15 ML BOTTLE EACHEYE SCH ×4 (09:00→21:51)
[2018-02-07] MEDS: HYDROGEN PEROXIDE 480 ML BOTTLE TP SCH ×2 (09:00→21:51)
[2018-02-07] MEDS: POTASSIUM CHLORIDE 20 MEQ/15 ML ML GT SCH (09:00)
[2018-02-07] MEDS: POLYETHYLENE GLYCOL 3350 17 GM POWD.PACK GT SCH (09:00)
[2018-02-07] MEDS: NEOMY SULF/BACITRAC ZN/POLY 15 GM TUBE TP SCH ×3 (09:00→21:53)
[2018-02-07 19:49] VITALS: BP 106/68
[2018-02-07] MEDS: FINASTERIDE (5 MG) 5 MG TABLET GT SCH (21:00)
[2018-02-07] MEDS: ASCORBIC ACID 500 MG TABLET GT SCH (21:51)
[2018-02-07] MEDS: MULTIVIT, IRON, MIN NO. 8, FA 1 TAB GT SCH (21:51)
[2018-02-07] MEDS: DOCUSATE SODIUM LIQ 100 MG/10 ML UDC GT SCH (21:51)
[2018-02-07] MEDS: SENNOSIDES 8.6 MG TABLET GT SCH (21:54)
[2018-02-08] MEDS: GLYCOPYRROLATE 1 MG TABLET GT SCH ×4 (00:15→17:50)
[2018-02-08] MEDS: IPRATROPIUM NEB FS 0.5 MG/2.5 ML AMPUL.NEB NEB SCH ×4 (02:36→19:17)
[2018-02-08] MEDS: ALBUTEROL FS 2.5 MG/3 ML VIAL.NEB NEB SCH ×4 (02:36→19:17)
--- NOTE | 2018-02-08 04:09 | NUR ---
RT Pt trach on [facility] vent ordered settings. svn treatments given inline. trach secure and patent. Addendum: 02/08/18 at 0409 by TREY ARENAS RT Amended: Links added.
[2018-02-08] MEDS: BACLOFEN (10 MG) 10 MG TABLET GT SCH ×3 (05:20→21:47)
[2018-02-08] MEDS: LEVOTHYROXINE SODIUM 125 MCG TABLET GT SCH (05:20)
[2018-02-08] MEDS: NEPRO 1,000 ML BOTTLE GT PRN (06:00)
[2018-02-08 07:39] VITALS: BP 111/71
[2018-02-08] MEDS: POLYETHYLENE GLYCOL 3350 17 GM POWD.PACK GT SCH (09:39)
[2018-02-08] MEDS: POLYVINYL ALCOHOL 15 ML BOTTLE EACHEYE SCH ×4 (09:39→21:47)
[2018-02-08] MEDS: ACIDOPHILUS/BULGARICUS 1 EACH TAB.CHEW GT SCH (09:39)
[2018-02-08] MEDS: AMIODARONE HCL 200 MG TABLET GT SCH (09:39)
[2018-02-08] MEDS: OMEPRAZOLE 10 MG CAPSULE.DR GT SCH (09:39)
[2018-02-08] MEDS: HEPARIN SODIUM, PORCINE 5000 UNITS/1 ML VIAL SQ SCH ×2 (09:39→21:48)
[2018-02-08] MEDS: POTASSIUM CHLORIDE 20 MEQ/15 ML ML GT SCH (09:39)
[2018-02-08] MEDS: NEOMY SULF/BACITRAC ZN/POLY 15 GM TUBE TP SCH ×2 (09:40→21:48)
[2018-02-08] MEDS: HYDROGEN PEROXIDE 480 ML BOTTLE TP SCH ×2 (09:40→21:48)
[2018-02-08] MEDS: ZINC OXIDE 30 GM TUBE TP SCH ×2 (09:40→21:48)
[2018-02-08 19:39] VITALS: BP 104/63
[2018-02-08] MEDS: FINASTERIDE (5 MG) 5 MG TABLET GT SCH (20:00)
[2018-02-08] MEDS: MULTIVIT, IRON, MIN NO. 8, FA 1 TAB GT SCH (21:47)
[2018-02-08] MEDS: DOCUSATE SODIUM LIQ 100 MG/10 ML UDC GT SCH (21:47)
[2018-02-08] MEDS: ASCORBIC ACID 500 MG TABLET GT SCH (21:47)
[2018-02-08] MEDS: SENNOSIDES 8.6 MG TABLET GT SCH (21:48)
[2018-02-09] MEDS: GLYCOPYRROLATE 1 MG TABLET GT SCH ×4 (00:25→17:32)
[2018-02-09] MEDS: IPRATROPIUM NEB FS 0.5 MG/2.5 ML AMPUL.NEB NEB SCH ×4 (00:57→19:16)
[2018-02-09] MEDS: ALBUTEROL FS 2.5 MG/3 ML VIAL.NEB NEB SCH ×4 (00:57→19:16)
[2018-02-09] MEDS: LEVOTHYROXINE SODIUM 125 MCG TABLET GT SCH (05:30)
[2018-02-09] MEDS: BACLOFEN (10 MG) 10 MG TABLET GT SCH ×3 (05:30→20:56)
[2018-02-09] MEDS: NEPRO 1,000 ML BOTTLE GT PRN (06:17)
[2018-02-09 07:53] VITALS: BP 109/61
[2018-02-09] MEDS: POLYVINYL ALCOHOL 15 ML BOTTLE EACHEYE SCH ×4 (08:57→20:56)
[2018-02-09] MEDS: AMIODARONE HCL 200 MG TABLET GT SCH (08:58)
[2018-02-09] MEDS: POTASSIUM CHLORIDE 20 MEQ/15 ML ML GT SCH (08:58)
[2018-02-09] MEDS: ACIDOPHILUS/BULGARICUS 1 EACH TAB.CHEW GT SCH (08:58)
[2018-02-09] MEDS: POLYETHYLENE GLYCOL 3350 17 GM POWD.PACK GT SCH (08:58)
[2018-02-09] MEDS: OMEPRAZOLE 10 MG CAPSULE.DR GT SCH (08:58)
[2018-02-09] MEDS: HYDROGEN PEROXIDE 480 ML BOTTLE TP SCH ×2 (09:00→20:56)
[2018-02-09] MEDS: NEOMY SULF/BACITRAC ZN/POLY 15 GM TUBE TP SCH ×2 (09:00→20:56)
[2018-02-09] MEDS: ZINC OXIDE 30 GM TUBE TP SCH ×2 (09:00→20:56)
[2018-02-09] MEDS: HEPARIN SODIUM, PORCINE 5000 UNITS/1 ML VIAL SQ SCH ×2 (09:00→20:56)
--- NOTE | 2018-02-09 15:27 | NUR ---
no vent changes made. Addendum: 02/09/18 at 1528 by GUILLERMINA ESPINOSA RT Amended: Links added.
[2018-02-09 19:33] VITALS: BP 115/50
[2018-02-09] MEDS: DOCUSATE SODIUM LIQ 100 MG/10 ML UDC GT SCH (20:56)
[2018-02-09] MEDS: FINASTERIDE (5 MG) 5 MG TABLET GT SCH (20:56)
[2018-02-09] MEDS: SENNOSIDES 8.6 MG TABLET GT SCH (20:56)
[2018-02-09] MEDS: MULTIVIT, IRON, MIN NO. 8, FA 1 TAB GT SCH (20:56)
[2018-02-09] MEDS: ASCORBIC ACID 500 MG TABLET GT SCH (20:56)
[2018-02-10] MEDS: GLYCOPYRROLATE 1 MG TABLET GT SCH ×5 (00:37→23:25)
[2018-02-10] MEDS: IPRATROPIUM NEB FS 0.5 MG/2.5 ML AMPUL.NEB NEB SCH ×4 (01:31→19:14)
[2018-02-10] MEDS: ALBUTEROL FS 2.5 MG/3 ML VIAL.NEB NEB SCH ×4 (01:31→19:14)
[2018-02-10] MEDS: LEVOTHYROXINE SODIUM 125 MCG TABLET GT SCH (05:47)
[2018-02-10] MEDS: BACLOFEN (10 MG) 10 MG TABLET GT SCH ×3 (05:47→21:00)
[2018-02-10 08:29] VITALS: BP 128/74
[2018-02-10] MEDS: POLYETHYLENE GLYCOL 3350 17 GM POWD.PACK GT SCH (09:00)
[2018-02-10] MEDS: AMIODARONE HCL 200 MG TABLET GT SCH (09:00)
[2018-02-10] MEDS: OMEPRAZOLE 10 MG CAPSULE.DR GT SCH (09:00)
[2018-02-10] MEDS: NEOMY SULF/BACITRAC ZN/POLY 15 GM TUBE TP SCH ×2 (09:00→21:00)
[2018-02-10] MEDS: HYDROGEN PEROXIDE 480 ML BOTTLE TP SCH ×2 (09:00→21:00)
[2018-02-10] MEDS: ZINC OXIDE 30 GM TUBE TP SCH ×2 (09:00→21:00)
[2018-02-10] MEDS: HEPARIN SODIUM, PORCINE 5000 UNITS/1 ML VIAL SQ SCH ×2 (09:00→21:00)
[2018-02-10] MEDS: POTASSIUM CHLORIDE 20 MEQ/15 ML ML GT SCH (09:00)
[2018-02-10] MEDS: POLYVINYL ALCOHOL 15 ML BOTTLE EACHEYE SCH ×4 (09:00→21:00)
[2018-02-10] MEDS: ACIDOPHILUS/BULGARICUS 1 EACH TAB.CHEW GT SCH (09:00)
[2018-02-10] MEDS: FINASTERIDE (5 MG) 5 MG TABLET GT SCH (20:00)
[2018-02-10 20:05] VITALS: BP 119/71
[2018-02-10] MEDS: ASCORBIC ACID 500 MG TABLET GT SCH (21:00)
[2018-02-10] MEDS: MULTIVIT, IRON, MIN NO. 8, FA 1 TAB GT SCH (21:00)
[2018-02-10] MEDS: DOCUSATE SODIUM LIQ 100 MG/10 ML UDC GT SCH (21:00)
[2018-02-10] MEDS: SENNOSIDES 8.6 MG TABLET GT SCH (22:00)
[2018-02-11] MEDS: ALBUTEROL FS 2.5 MG/3 ML VIAL.NEB NEB SCH ×4 (01:34→19:18)
[2018-02-11] MEDS: IPRATROPIUM NEB FS 0.5 MG/2.5 ML AMPUL.NEB NEB SCH ×4 (01:34→19:18)
[2018-02-11] MEDS: BACLOFEN (10 MG) 10 MG TABLET GT SCH ×3 (05:00→21:00)
[2018-02-11] MEDS: GLYCOPYRROLATE 1 MG TABLET GT SCH ×4 (06:36→23:41)
[2018-02-11] MEDS: LEVOTHYROXINE SODIUM 125 MCG TABLET GT SCH (06:36)
[2018-02-11 08:01] VITALS: BP 114/70
[2018-02-11] MEDS: POLYVINYL ALCOHOL 15 ML BOTTLE EACHEYE SCH ×4 (09:03→21:00)
[2018-02-11] MEDS: ACIDOPHILUS/BULGARICUS 1 EACH TAB.CHEW GT SCH (09:04)
[2018-02-11] MEDS: POLYETHYLENE GLYCOL 3350 17 GM POWD.PACK GT SCH (09:04)
[2018-02-11] MEDS: AMIODARONE HCL 200 MG TABLET GT SCH (09:04)
[2018-02-11] MEDS: OMEPRAZOLE 10 MG CAPSULE.DR GT SCH (09:04)
[2018-02-11] MEDS: POTASSIUM CHLORIDE 20 MEQ/15 ML ML GT SCH (09:04)
[2018-02-11] MEDS: HEPARIN SODIUM, PORCINE 5000 UNITS/1 ML VIAL SQ SCH ×2 (09:04→21:00)
[2018-02-11] MEDS: NEOMY SULF/BACITRAC ZN/POLY 15 GM TUBE TP SCH ×2 (09:17→21:00)
[2018-02-11] MEDS: ZINC OXIDE 30 GM TUBE TP SCH ×2 (09:17→21:00)
[2018-02-11] MEDS: HYDROGEN PEROXIDE 480 ML BOTTLE TP SCH ×2 (09:17→21:00)
[2018-02-11 19:45] VITALS: BP 112/63
[2018-02-11] MEDS: FINASTERIDE (5 MG) 5 MG TABLET GT SCH (20:00)
[2018-02-11] MEDS: MULTIVIT, IRON, MIN NO. 8, FA 1 TAB GT SCH (21:00)
[2018-02-11] MEDS: ASCORBIC ACID 500 MG TABLET GT SCH (21:00)
[2018-02-11] MEDS: DOCUSATE SODIUM LIQ 100 MG/10 ML UDC GT SCH (21:00)
[2018-02-11] MEDS: SENNOSIDES 8.6 MG TABLET GT SCH (22:11)
[2018-02-12] MEDS: ALBUTEROL FS 2.5 MG/3 ML VIAL.NEB NEB SCH ×4 (01:23→20:08)
[2018-02-12] MEDS: IPRATROPIUM NEB FS 0.5 MG/2.5 ML AMPUL.NEB NEB SCH ×4 (01:23→20:08)
[2018-02-12] MEDS: GLYCOPYRROLATE 1 MG TABLET GT SCH ×4 (05:46→23:18)
[2018-02-12] MEDS: BACLOFEN (10 MG) 10 MG TABLET GT SCH ×3 (05:46→21:15)
[2018-02-12] MEDS: LEVOTHYROXINE SODIUM 125 MCG TABLET GT SCH (05:46)
[2018-02-12 07:37] VITALS: BP_SYST 100; BP_SYST 119; BP_DIAS 55; BP_DIAS 76
[2018-02-12] MEDS: OMEPRAZOLE 10 MG CAPSULE.DR GT SCH (09:56)
[2018-02-12] MEDS: ACIDOPHILUS/BULGARICUS 1 EACH TAB.CHEW GT SCH (09:56)
[2018-02-12] MEDS: POTASSIUM CHLORIDE 20 MEQ/15 ML ML GT SCH (09:56)
[2018-02-12] MEDS: AMIODARONE HCL 200 MG TABLET GT SCH (09:56)
[2018-02-12] MEDS: POLYETHYLENE GLYCOL 3350 17 GM POWD.PACK GT SCH (09:56)
[2018-02-12] MEDS: POLYVINYL ALCOHOL 15 ML BOTTLE EACHEYE SCH ×4 (09:56→21:14)
[2018-02-12] MEDS: ZINC OXIDE 30 GM TUBE TP SCH ×2 (09:57→21:17)
[2018-02-12] MEDS: NEOMY SULF/BACITRAC ZN/POLY 15 GM TUBE TP SCH ×2 (09:57→21:16)
[2018-02-12] MEDS: HEPARIN SODIUM, PORCINE 5000 UNITS/1 ML VIAL SQ SCH ×2 (09:57→21:16)
[2018-02-12] MEDS: HYDROGEN PEROXIDE 480 ML BOTTLE TP SCH ×2 (09:57→21:16)
[2018-02-12] MEDS: NEPRO 1,000 ML BOTTLE GT PRN (11:16)
[2018-02-12 20:21] VITALS: BP 120/83
[2018-02-12] MEDS: FINASTERIDE (5 MG) 5 MG TABLET GT SCH (21:00)
[2018-02-12] MEDS: ASCORBIC ACID 500 MG TABLET GT SCH (21:15)
[2018-02-12] MEDS: SENNOSIDES 8.6 MG TABLET GT SCH (21:17)
[2018-02-12] MEDS: MULTIVIT, IRON, MIN NO. 8, FA 1 TAB GT SCH (21:19)
[2018-02-12] MEDS: DOCUSATE SODIUM LIQ 100 MG/10 ML UDC GT SCH (21:59)
[2018-02-13] MEDS: IPRATROPIUM NEB FS 0.5 MG/2.5 ML AMPUL.NEB NEB SCH ×4 (02:26→19:29)
[2018-02-13] MEDS: ALBUTEROL FS 2.5 MG/3 ML VIAL.NEB NEB SCH ×4 (02:26→19:29)
[2018-02-13] MEDS: BACLOFEN (10 MG) 10 MG TABLET GT SCH ×3 (04:36→21:41)
[2018-02-13] MEDS: NEPRO 1,000 ML BOTTLE GT PRN (04:37)
[2018-02-13] MEDS: LEVOTHYROXINE SODIUM 125 MCG TABLET GT SCH (05:28)
[2018-02-13] MEDS: GLYCOPYRROLATE 1 MG TABLET GT SCH ×4 (05:28→23:41)
[2018-02-13 07:52] VITALS: BP 111/67
[2018-02-13] MEDS: HYDROGEN PEROXIDE 480 ML BOTTLE TP SCH ×2 (09:00→21:41)
[2018-02-13] MEDS: HEPARIN SODIUM, PORCINE 5000 UNITS/1 ML VIAL SQ SCH ×2 (09:00→21:41)
[2018-02-13] MEDS: ZINC OXIDE 30 GM TUBE TP SCH ×2 (09:00→21:42)
[2018-02-13] MEDS: POLYVINYL ALCOHOL 15 ML BOTTLE EACHEYE SCH ×4 (09:00→21:40)
[2018-02-13] MEDS: ACIDOPHILUS/BULGARICUS 1 EACH TAB.CHEW GT SCH (09:00)
[2018-02-13] MEDS: POLYETHYLENE GLYCOL 3350 17 GM POWD.PACK GT SCH (09:00)
[2018-02-13] MEDS: OMEPRAZOLE 10 MG CAPSULE.DR GT SCH (09:00)
[2018-02-13] MEDS: AMIODARONE HCL 200 MG TABLET GT SCH (09:00)
[2018-02-13] MEDS: POTASSIUM CHLORIDE 20 MEQ/15 ML ML GT SCH (09:00)
[2018-02-13] MEDS: HYDROCODONE/APAP 5/325MG 1 EACH TABLET GT PRN (11:26)
--- NOTE | 2018-02-13 14:00 | NUR ---
Seen and examined by Swetha Park, CARMELITA, NNO given.
[2018-02-13 20:17] VITALS: BP 118/72
[2018-02-13] MEDS: FINASTERIDE (5 MG) 5 MG TABLET GT SCH (20:30)
[2018-02-13] MEDS: DOCUSATE SODIUM LIQ 100 MG/10 ML UDC GT SCH (21:00)
[2018-02-13] MEDS: MULTIVIT, IRON, MIN NO. 8, FA 1 TAB GT SCH (21:41)
[2018-02-13] MEDS: ASCORBIC ACID 500 MG TABLET GT SCH (21:41)
[2018-02-13] MEDS: SENNOSIDES 8.6 MG TABLET GT SCH (21:42)
[2018-02-14] MEDS: IPRATROPIUM NEB FS 0.5 MG/2.5 ML AMPUL.NEB NEB SCH ×4 (01:21→19:53)
[2018-02-14] MEDS: ALBUTEROL FS 2.5 MG/3 ML VIAL.NEB NEB SCH ×4 (01:21→19:53)
[2018-02-14] MEDS: BACLOFEN (10 MG) 10 MG TABLET GT SCH ×3 (05:17→21:05)
[2018-02-14] MEDS: LEVOTHYROXINE SODIUM 125 MCG TABLET GT SCH (05:17)
[2018-02-14] MEDS: GLYCOPYRROLATE 1 MG TABLET GT SCH ×4 (05:17→23:51)
[2018-02-14] MEDS: NEPRO 1,000 ML BOTTLE GT PRN (06:00)
[2018-02-14 07:33] VITALS: BP 117/74
[2018-02-14] MEDS: ZINC OXIDE 30 GM TUBE TP SCH ×2 (09:00→21:06)
[2018-02-14] MEDS: POLYVINYL ALCOHOL 15 ML BOTTLE EACHEYE SCH ×4 (09:19→21:05)
[2018-02-14] MEDS: AMIODARONE HCL 200 MG TABLET GT SCH (09:20)
[2018-02-14] MEDS: POTASSIUM CHLORIDE 20 MEQ/15 ML ML GT SCH (09:20)
[2018-02-14] MEDS: POLYETHYLENE GLYCOL 3350 17 GM POWD.PACK GT SCH (09:20)
[2018-02-14] MEDS: ACIDOPHILUS/BULGARICUS 1 EACH TAB.CHEW GT SCH (09:20)
[2018-02-14] MEDS: HEPARIN SODIUM, PORCINE 5000 UNITS/1 ML VIAL SQ SCH ×2 (09:21→21:05)
[2018-02-14] MEDS: OMEPRAZOLE 10 MG CAPSULE.DR GT SCH (09:21)
[2018-02-14] MEDS: HYDROGEN PEROXIDE 480 ML BOTTLE TP SCH ×2 (09:22→21:05)
[2018-02-14] MEDS: FINASTERIDE (5 MG) 5 MG TABLET GT SCH (20:00)
[2018-02-14] MEDS: DOCUSATE SODIUM LIQ 100 MG/10 ML UDC GT SCH (21:05)
[2018-02-14] MEDS: MULTIVIT, IRON, MIN NO. 8, FA 1 TAB GT SCH (21:05)
[2018-02-14] MEDS: ASCORBIC ACID 500 MG TABLET GT SCH (21:05)
[2018-02-14] MEDS: SENNOSIDES 8.6 MG TABLET GT SCH (21:06)
--- NOTE | 2018-02-14 21:28 | NUR ---
SEEN BY CARMELITA THURSTON,NO NEW ORDER.
[2018-02-14 23:37] VITALS: BP 105/59
[2018-02-15] MEDS: IPRATROPIUM NEB FS 0.5 MG/2.5 ML AMPUL.NEB NEB SCH ×4 (01:51→20:22)
[2018-02-15] MEDS: ALBUTEROL FS 2.5 MG/3 ML VIAL.NEB NEB SCH ×4 (01:51→20:22)
[2018-02-15] MEDS: BACLOFEN (10 MG) 10 MG TABLET GT SCH ×3 (05:00→21:07)
[2018-02-15] MEDS: NEPRO 1,000 ML BOTTLE GT PRN (05:40)
[2018-02-15] MEDS: LEVOTHYROXINE SODIUM 125 MCG TABLET GT SCH (06:24)
[2018-02-15] MEDS: GLYCOPYRROLATE 1 MG TABLET GT SCH ×4 (06:24→23:47)
[2018-02-15 08:18] VITALS: BP 137/78
[2018-02-15] MEDS: AMIODARONE HCL 200 MG TABLET GT SCH (09:21)
[2018-02-15] MEDS: ACIDOPHILUS/BULGARICUS 1 EACH TAB.CHEW GT SCH (09:21)
[2018-02-15] MEDS: POLYETHYLENE GLYCOL 3350 17 GM POWD.PACK GT SCH (09:21)
[2018-02-15] MEDS: POTASSIUM CHLORIDE 20 MEQ/15 ML ML GT SCH (09:21)
[2018-02-15] MEDS: POLYVINYL ALCOHOL 15 ML BOTTLE EACHEYE SCH ×4 (09:21→21:07)
[2018-02-15] MEDS: OMEPRAZOLE 10 MG CAPSULE.DR GT SCH (09:21)
[2018-02-15] MEDS: HEPARIN SODIUM, PORCINE 5000 UNITS/1 ML VIAL SQ SCH ×2 (09:22→21:08)
[2018-02-15] MEDS: HYDROGEN PEROXIDE 480 ML BOTTLE TP SCH ×2 (09:22→21:08)
[2018-02-15] MEDS: ZINC OXIDE 30 GM TUBE TP SCH ×2 (09:22→21:08)
[2018-02-15] MEDS: ERGOCALCIFEROL (VITAMIN D2) 8,000 UNIT/ML GT SCH (10:00)
[2018-02-15 19:58] VITALS: BP 118/65
--- NOTE | 2018-02-15 20:48 | NUR ---
INTERDISCIPLINARY TEAM CONFERENCE (IDT) was held today. invited but did not attend. Dr. David and the interdisciplinary team reviewed the current plan of care in detail. Orders as well as treatment and medications were reviewed. No new orders were given. Resident recently completed ATB for bacterial infection. No fever. Heparin placed on hold due to episode of bleeding in the stool on 01/26 and resumed on 02/03, no further episode of bleeding in the stool.
[2018-02-15] MEDS: FINASTERIDE (5 MG) 5 MG TABLET GT SCH (21:00)
[2018-02-15] MEDS: ASCORBIC ACID 500 MG TABLET GT SCH (21:07)
[2018-02-15] MEDS: DOCUSATE SODIUM LIQ 100 MG/10 ML UDC GT SCH (21:07)
[2018-02-15] MEDS: MULTIVIT, IRON, MIN NO. 8, FA 1 TAB GT SCH (21:07)
[2018-02-15] MEDS: SENNOSIDES 8.6 MG TABLET GT SCH (21:08)
[2018-02-16] MEDS: ALBUTEROL FS 2.5 MG/3 ML VIAL.NEB NEB SCH ×4 (03:32→19:30)
[2018-02-16] MEDS: IPRATROPIUM NEB FS 0.5 MG/2.5 ML AMPUL.NEB NEB SCH ×4 (03:32→19:30)
--- NOTE | 2018-02-16 05:02 | NUR ---
PT REC'D TRACHED ON [facility] VENT SETTINGS CHARTED. NO RESP DISTRESS NOTED. NO CHANGES MADE THROUGHOUT SHIFT. TRACH TUBE PATENT AND MIDLINE. SX'D THICK LARGE AMT OF CLEAR SECRETIONS. VENT PLUGGED INTO RED OUTLET. AMBU BAG BEDSIDE. ALARMS ARE SET AND AUDIBLE. BACK UP TRACH BEDSIDE. WILL CONTINUE TO MONITOR. Addendum: 02/16/18 at 0537 by KERA ADAM RT Amended: Links added.
[2018-02-16] MEDS: LEVOTHYROXINE SODIUM 125 MCG TABLET GT SCH (05:51)
[2018-02-16] MEDS: GLYCOPYRROLATE 1 MG TABLET GT SCH ×3 (05:51→17:03)
[2018-02-16] MEDS: BACLOFEN (10 MG) 10 MG TABLET GT SCH ×3 (05:51→21:29)
[2018-02-16] MEDS: NEPRO 1,000 ML BOTTLE GT PRN (05:52)
[2018-02-16 07:34] VITALS: BP 111/72
[2018-02-16] MEDS: POLYVINYL ALCOHOL 15 ML BOTTLE EACHEYE SCH ×4 (08:48→21:29)
[2018-02-16] MEDS: OMEPRAZOLE 10 MG CAPSULE.DR GT SCH (08:49)
[2018-02-16] MEDS: POLYETHYLENE GLYCOL 3350 17 GM POWD.PACK GT SCH (08:49)
[2018-02-16] MEDS: AMIODARONE HCL 200 MG TABLET GT SCH (08:49)
[2018-02-16] MEDS: POTASSIUM CHLORIDE 20 MEQ/15 ML ML GT SCH (08:49)
[2018-02-16] MEDS: ACIDOPHILUS/BULGARICUS 1 EACH TAB.CHEW GT SCH (08:49)
[2018-02-16] MEDS: HEPARIN SODIUM, PORCINE 5000 UNITS/1 ML VIAL SQ SCH ×2 (08:50→21:29)
[2018-02-16] MEDS: ZINC OXIDE 30 GM TUBE TP SCH ×2 (09:04→21:29)
[2018-02-16] MEDS: HYDROGEN PEROXIDE 480 ML BOTTLE TP SCH ×2 (09:04→21:29)
[2018-02-16] MEDS: FINASTERIDE (5 MG) 5 MG TABLET GT SCH (20:30)
[2018-02-16] MEDS: SENNOSIDES 8.6 MG TABLET GT SCH (21:29)
[2018-02-16] MEDS: MULTIVIT, IRON, MIN NO. 8, FA 1 TAB GT SCH (21:29)
[2018-02-16] MEDS: ASCORBIC ACID 500 MG TABLET GT SCH (21:29)
[2018-02-16] MEDS: DOCUSATE SODIUM LIQ 100 MG/10 ML UDC GT SCH (21:29)
[2018-02-16 22:01] VITALS: BP 110/62
[2018-02-17] MEDS: GLYCOPYRROLATE 1 MG TABLET GT SCH ×4 (00:33→17:48)
[2018-02-17] MEDS: IPRATROPIUM NEB FS 0.5 MG/2.5 ML AMPUL.NEB NEB SCH ×4 (01:30→19:49)
[2018-02-17] MEDS: ALBUTEROL FS 2.5 MG/3 ML VIAL.NEB NEB SCH ×4 (01:30→19:50)
--- NOTE | 2018-02-17 04:22 | NUR ---
RT PT REC'D TRACHED ON [facility] AND SECURED ALARMS ON AND AUDIBLE BAG AND MASK AT [facility]. TX GIVEN RANJIT WELL NO ADVERSE REACTION NOTED ATT NO RESP DISTRESS THROUGHOUT SHIFT
[2018-02-17] MEDS: BACLOFEN (10 MG) 10 MG TABLET GT SCH ×3 (05:29→21:36)
[2018-02-17] MEDS: LEVOTHYROXINE SODIUM 125 MCG TABLET GT SCH (05:29)
[2018-02-17 07:32] VITALS: BP 133/66
[2018-02-17] MEDS: POLYVINYL ALCOHOL 15 ML BOTTLE EACHEYE SCH ×4 (09:11→21:36)
[2018-02-17] MEDS: OMEPRAZOLE 10 MG CAPSULE.DR GT SCH (09:12)
[2018-02-17] MEDS: ACIDOPHILUS/BULGARICUS 1 EACH TAB.CHEW GT SCH (09:12)
[2018-02-17] MEDS: POLYETHYLENE GLYCOL 3350 17 GM POWD.PACK GT SCH (09:12)
[2018-02-17] MEDS: POTASSIUM CHLORIDE 20 MEQ/15 ML ML GT SCH (09:12)
[2018-02-17] MEDS: AMIODARONE HCL 200 MG TABLET GT SCH (09:12)
[2018-02-17] MEDS: ZINC OXIDE 30 GM TUBE TP SCH ×2 (09:13→21:37)
[2018-02-17] MEDS: HEPARIN SODIUM, PORCINE 5000 UNITS/1 ML VIAL SQ SCH ×2 (09:13→21:37)
[2018-02-17] MEDS: HYDROGEN PEROXIDE 480 ML BOTTLE TP SCH ×2 (09:13→21:37)
--- NOTE | 2018-02-17 12:08 | NUR ---
RT NOTE: PATIENT RECEIVED TRACHED ON MECHANICAL VENT. ALARMS VERIFIED AND AUDIBLE. VENT PLUGGED INTO RED OUTLET. SUCTIONED AND LAVAGED LARGE AMOUNTS OF THICK SOLORZANO SECRETIONS. NEW TRACH AND AMBU BAG AT [facility].
[2018-02-17] MEDS: FINASTERIDE (5 MG) 5 MG TABLET GT SCH (20:00)
[2018-02-17] MEDS: DOCUSATE SODIUM LIQ 100 MG/10 ML UDC GT SCH (21:36)
[2018-02-17] MEDS: MULTIVIT, IRON, MIN NO. 8, FA 1 TAB GT SCH (21:36)
[2018-02-17] MEDS: ASCORBIC ACID 500 MG TABLET GT SCH (21:36)
[2018-02-17 22:17] VITALS: BP 103/55
[2018-02-17] MEDS: SENNOSIDES 8.6 MG TABLET GT SCH (22:19)
[2018-02-18] MEDS: GLYCOPYRROLATE 1 MG TABLET GT SCH ×4 (00:41→17:39)
[2018-02-18] MEDS: IPRATROPIUM NEB FS 0.5 MG/2.5 ML AMPUL.NEB NEB SCH ×4 (01:39→20:09)
[2018-02-18] MEDS: ALBUTEROL FS 2.5 MG/3 ML VIAL.NEB NEB SCH ×4 (01:39→20:09)
[2018-02-18] MEDS: BACLOFEN (10 MG) 10 MG TABLET GT SCH ×3 (05:00→21:45)
[2018-02-18] MEDS: LEVOTHYROXINE SODIUM 125 MCG TABLET GT SCH (06:19)
[2018-02-18 08:03] VITALS: BP 103/62
[2018-02-18] MEDS: POTASSIUM CHLORIDE 20 MEQ/15 ML ML GT SCH (08:42)
[2018-02-18] MEDS: OMEPRAZOLE 10 MG CAPSULE.DR GT SCH (08:42)
[2018-02-18] MEDS: POLYVINYL ALCOHOL 15 ML BOTTLE EACHEYE SCH ×4 (08:42→21:45)
[2018-02-18] MEDS: AMIODARONE HCL 200 MG TABLET GT SCH (08:42)
[2018-02-18] MEDS: ACIDOPHILUS/BULGARICUS 1 EACH TAB.CHEW GT SCH (08:42)
[2018-02-18] MEDS: POLYETHYLENE GLYCOL 3350 17 GM POWD.PACK GT SCH (08:42)
[2018-02-18] MEDS: HEPARIN SODIUM, PORCINE 5000 UNITS/1 ML VIAL SQ SCH ×2 (08:43→21:45)
[2018-02-18] MEDS: HYDROGEN PEROXIDE 480 ML BOTTLE TP SCH ×2 (08:43→21:45)
[2018-02-18] MEDS: ZINC OXIDE 30 GM TUBE TP SCH ×2 (08:43→21:45)
[2018-02-18] MEDS: FINASTERIDE (5 MG) 5 MG TABLET GT SCH (20:00)
[2018-02-18 20:23] VITALS: BP 101/62
[2018-02-18] MEDS: DOCUSATE SODIUM LIQ 100 MG/10 ML UDC GT SCH (21:45)
[2018-02-18] MEDS: ASCORBIC ACID 500 MG TABLET GT SCH (21:45)
[2018-02-18] MEDS: MULTIVIT, IRON, MIN NO. 8, FA 1 TAB GT SCH (21:45)
[2018-02-18] MEDS: SENNOSIDES 8.6 MG TABLET GT SCH (21:45)
[2018-02-19] MEDS: GLYCOPYRROLATE 1 MG TABLET GT SCH ×5 (00:23→23:40)
[2018-02-19] MEDS: IPRATROPIUM NEB FS 0.5 MG/2.5 ML AMPUL.NEB NEB SCH ×4 (01:57→19:43)
[2018-02-19] MEDS: ALBUTEROL FS 2.5 MG/3 ML VIAL.NEB NEB SCH ×4 (01:57→19:43)
[2018-02-19] MEDS: BACLOFEN (10 MG) 10 MG TABLET GT SCH ×3 (05:39→21:18)
[2018-02-19] MEDS: LEVOTHYROXINE SODIUM 125 MCG TABLET GT SCH (05:39)
--- NOTE | 2018-02-19 07:30 | NUR ---
@0730 Vital signs checked,BP-64/45,P-113,R-12,T-100.2.Placed the pt on trendlenberg position and turned off the GTube feeding.@0820 We rechecked the vital signs,BP-87/54,P-126,R-12,T-99.4.,informed to . ordered to give stat iv 0.9%NS bolus and stat labs.New orders noted and carried out.
[2018-02-19 07:51] VITALS: BP 64/45
[2018-02-19] MEDS: ZINC OXIDE 30 GM TUBE TP SCH ×2 (09:00→21:18)
[2018-02-19] MEDS: HEPARIN SODIUM, PORCINE 5000 UNITS/1 ML VIAL SQ SCH (09:00)
[2018-02-19] MEDS: POLYVINYL ALCOHOL 15 ML BOTTLE EACHEYE SCH ×4 (09:00→21:18)
[2018-02-19] MEDS: AMIODARONE HCL 200 MG TABLET GT SCH (09:00)
[2018-02-19] MEDS: POTASSIUM CHLORIDE 20 MEQ/15 ML ML GT SCH (09:00)
[2018-02-19] MEDS: ACIDOPHILUS/BULGARICUS 1 EACH TAB.CHEW GT SCH (09:00)
[2018-02-19] MEDS: HYDROGEN PEROXIDE 480 ML BOTTLE TP SCH ×2 (09:00→21:18)
[2018-02-19] MEDS: POLYETHYLENE GLYCOL 3350 17 GM POWD.PACK GT SCH (09:00)
[2018-02-19] MEDS: OMEPRAZOLE 10 MG CAPSULE.DR GT SCH (09:00)
--- NOTE | 2018-02-19 10:00 | NUR ---
seen and examined the pt and ordered to D/C PEEP 5 for low BP.New orders noted and carried out.
--- NOTE | 2018-02-19 10:10 | NUR ---
VENT CHANGES MADE BELOW ORDER: 0 PEEP Addendum: 02/19/18 at 1011 by GUILLERMINA ESPINOSA RT Amended: Links added.
[2018-02-19] MEDS: IV NS 0.9% 1,000 ML IV PRN (11:00)
[2018-02-19 12:07] LABS: HEMATOCRIT 25 % (39-51); HEMOGLOBIN 7.7 g/dL (13.5-17.5); LYMPHOCYTES # (AUTO) 0.5 /CMM (0.8-4.8); LYMPHOCYTES % (AUTO) 0.8 % (20.0-44.0); MEAN CORPUSCULAR HEMOGLOBIN 22 PG (26.0-33.0); MEAN CORPUSCULAR HGB CONC 31 g/dl (31.0-36.0); MEAN CORPUSCULAR VOLUME 72 fL (80-96); MONOCYTES # (AUTO) 2.1 /CMM (0.1-1.30); MONOCYTES % (AUTO) 3.9 % (2.0-12.0); NEUTROPHILS # (AUTO) 51.5 /CMM (1.8-8.9); NEUTROPHILS % (AUTO) 95.3 % (43.0-81.0); PLATELET COUNT (AUTO) 361 /CMM (150-450); RDW COEFFICIENT OF VARIATION 19.4 (11.5-15.0); RED BLOOD CELL COUNT(AUTO) 3.49 MIL/uL (4.5-6.0)
[2018-02-19 12:15] LABS: CALCIUM, SERUM 9.6 mg/dL (8.5-10.1); CREATININE 3.4 mg/dL (0.6-1.3); POTASSIUM 4.9 mmol/L (3.5-5.1)
--- NOTE | 2018-02-19 12:50 | NUR ---
Lab results(CH WBC-54) and x-ray results relayed to ,ordered to start iv NS 0.9% @80ml/hr x1 L,repeat BMP in am and hold anticoagulants and no stop date ordered.New orders noted and carried out.
[2018-02-19 12:56] LABS: BAND % (MANUAL) 27 % (0.0-5.0); LYMPHOCYTES % (MANUAL) 2 % (16-48); METAMYELOCYTES % 2 % (0-0); MONOCYTES % (MANUAL) 2 % (0-11.0); MYELOCYTES % 1 % (0-0); NEUTROPHILS % (MANUAL) 66 (42-76)
[2018-02-19] MEDS ORDERED: IV NS 0.9% 1,000 ML IV PRN (14:00)
--- NOTE | 2018-02-19 17:08 | NUR ---
ordered to d/c IV NS 0.9% @80ml/hr and start @125ml/hr,iv meropenem and flagyl tab and labs tomorrow.New orders noted and carried out.
[2018-02-19] MEDS ORDERED: IV NS 0.9% 1,000 ML IV ONE (17:20)
[2018-02-19] MEDS: METRONIDAZOLE 500 MG TABLET PO SCH (17:56)
[2018-02-19] MEDS ORDERED: MEROPENEM 500 MG in IV NS 0.9% 50 ML IV SCH (18:00)
[2018-02-19] MEDS: MEROPENEM 500 MG in IV NS 0.9% 50 ML IV SCH (18:30)
[2018-02-19 18:33] LABS: APPEARANCE,URINE SL CLOUDY (CLEAR); BILIRUBIN,URINE 2+ (NEGATIVE); BLOOD, URINE 3+ Ery/uL (NEGATIVE); COLOR,URINE YELLOW (YELLOW); KETONES,URINE 1+ (NEGATIVE); LEUKOCYTE ESTERASE ,URINE 3+ (NEGATIVE); NITRITE, URINE POSITIVE (NEGATIVE); PH,URINE 8.5 (5.0-8.0); PROTEIN,URINE 3+ mg/dl (NEGATIVE); UGLUCOSE NEGATIVE (NEGATIVE)
[2018-02-19 18:51] LABS: RBC,URINE TOO NUMEROUS TO COUN /HPF (0-2)
[2018-02-19 18:52] LABS: BACTERIA,URINE Few /HPF (None Seen); SQUAMOUS EPITHELIAL CELL,UR Few /HPF (None Seen)
[2018-02-19] MEDS: FINASTERIDE (5 MG) 5 MG TABLET GT SCH (20:00)
--- NOTE | 2018-02-19 20:00 | NUR ---
RN NOTES Received pt in bed awake with no resp distress or discomfort noted. B/P 119/63, HR 94. On IVF NS @ 125ml/hr, Started on Merrem 500mg Iv with no A/R noted. F/C draining dark blood tinged urine. Will continue to monitor.
[2018-02-19 20:01] VITALS: BP 119/63
[2018-02-19] MEDS: DOCUSATE SODIUM LIQ 100 MG/10 ML UDC GT SCH (21:18)
[2018-02-19] MEDS: SENNOSIDES 8.6 MG TABLET GT SCH (21:18)
[2018-02-19] MEDS: MULTIVIT, IRON, MIN NO. 8, FA 1 TAB GT SCH (21:18)
[2018-02-19] MEDS: ASCORBIC ACID 500 MG TABLET GT SCH (21:18)
[2018-02-20] VITALS (7 sets, daily range): BP systolic 99–131; BP diastolic 57–69
[2018-02-20] MEDS: ALBUTEROL FS 2.5 MG/3 ML VIAL.NEB NEB SCH ×4 (01:37→19:50)
[2018-02-20] MEDS: IPRATROPIUM NEB FS 0.5 MG/2.5 ML AMPUL.NEB NEB SCH ×4 (01:37→19:50)
[2018-02-20] MEDS: IV NS 0.9% 1,000 ML IV PRN (03:16)
[2018-02-20] MEDS: MEROPENEM 500 MG in IV NS 0.9% 50 ML IV SCH (05:27)
[2018-02-20] MEDS: LEVOTHYROXINE SODIUM 125 MCG TABLET GT SCH (05:47)
[2018-02-20] MEDS: BACLOFEN (10 MG) 10 MG TABLET GT SCH ×3 (05:47→21:00)
[2018-02-20] MEDS: GLYCOPYRROLATE 1 MG TABLET GT SCH ×4 (05:47→23:39)
[2018-02-20] MEDS: METRONIDAZOLE 500 MG TABLET PO SCH ×5 (05:47→23:39)
[2018-02-20 07:31] LABS: HEMATOCRIT 21 % (39-51); LYMPHOCYTES # (AUTO) 0.8 /CMM (0.8-4.8); LYMPHOCYTES % (AUTO) 1.7 % (20.0-44.0); MEAN CORPUSCULAR HEMOGLOBIN 23 PG (26.0-33.0); MEAN CORPUSCULAR HGB CONC 32 g/dl (31.0-36.0); MEAN CORPUSCULAR VOLUME 72 fL (80-96); MONOCYTES # (AUTO) 3.1 /CMM (0.1-1.30); MONOCYTES % (AUTO) 6.5 % (2.0-12.0); NEUTROPHILS # (AUTO) 43.1 /CMM (1.8-8.9); NEUTROPHILS % (AUTO) 91.8 % (43.0-81.0); PLATELET COUNT (AUTO) 278 /CMM (150-450); RDW COEFFICIENT OF VARIATION 18.9 (11.5-15.0); RED BLOOD CELL COUNT(AUTO) 2.89 MIL/uL (4.5-6.0)
[2018-02-20 07:32] LABS: CALCIUM, SERUM 8.5 mg/dL (8.5-10.1); CREATININE 3.1 mg/dL (0.6-1.3); MAGNESIUM 1.9 mg/dL (1.8-2.4); PHOSPHORUS 2.5 mg/dL (2.5-4.9); POTASSIUM 4.5 mmol/L (3.5-5.1)
[2018-02-20 07:49] LABS: HEMOGLOBIN 6.7 g/dL (13.5-17.5)
--- NOTE | 2018-02-20 08:20 | NUR ---
Notified Dr. Paniagua of WBC 47, Hbg 6.7, patient currently on IVF of NS at 125 cc/hr with IV ATB Merrem. New order given to transfuse 1 unit PRBC. Order carried out.
[2018-02-20 09:36] LABS: BAND % (MANUAL) 8 % (0.0-5.0); LYMPHOCYTES % (MANUAL) 2 % (16-48); MONOCYTES % (MANUAL) 11 % (0-11.0); NEUTROPHILS % (MANUAL) 79 (42-76)
[2018-02-20] MEDS: POLYVINYL ALCOHOL 15 ML BOTTLE EACHEYE SCH ×4 (09:57→21:00)
[2018-02-20] MEDS: ZINC OXIDE 30 GM TUBE TP SCH ×2 (09:58→21:01)
[2018-02-20] MEDS: AMIODARONE HCL 200 MG TABLET GT SCH (09:58)
[2018-02-20] MEDS: OMEPRAZOLE 10 MG CAPSULE.DR GT SCH (09:58)
[2018-02-20] MEDS: HYDROGEN PEROXIDE 480 ML BOTTLE TP SCH ×2 (09:58→21:01)
[2018-02-20] MEDS: POLYETHYLENE GLYCOL 3350 17 GM POWD.PACK GT SCH (09:58)
[2018-02-20] MEDS: ACIDOPHILUS/BULGARICUS 1 EACH TAB.CHEW GT SCH (09:58)
[2018-02-20] MEDS: POTASSIUM CHLORIDE 20 MEQ/15 ML ML GT SCH (09:58)
--- NOTE | 2018-02-20 11:00 | NUR ---
Seen and examined by Hannah Rangel NP for Dr. Day, NNO given.
--- NOTE | 2018-02-20 11:30 | NUR ---
Seen and examined by Dr. Paniagua, reviewed lab results, new order to do repeat CBc, BMP in AM. and to continue IVF at the same rate of 125 cc/hr. Also reviewed urine cx result showing mixed contaminants, per MD no need to send another specimen. Obtain telephone consent from Mrs. Bradley for blood transfusion. Asked Dr. Paniagua if we could have a midline order due to history of patient being a hard stick, he said to try and use accuvein first. Will insert HL using accuvein.
--- NOTE | 2018-02-20 12:35 | NUR ---
Notified Dr. Paniagua that finding a vein using accuvein not successful. New order given for midline insertion. Nursing automotive fleet supervisor notified. Blood ready for excelsior picker but no IV access good for blood transfusion. Current IV on the foot only G#24.
[2018-02-20] MEDS: NEPRO 1,000 ML BOTTLE GT PRN (14:28)
--- NOTE | 2018-02-20 15:20 | NUR ---
PICC line nurse able to insert midline in the R upper arm, G 22. patent with good blood return. CARMELITA Ricks notified of ID consult per Dr. Paniagua's request.
[2018-02-20] MEDS ORDERED: IV NS 0.9% 1,000 ML IV PRN (16:30)
[2018-02-20] MEDS: MEROPENEM 500 MG in IV NS 0.9% 100 ML IV SCH (19:30)
[2018-02-20] MEDS: FINASTERIDE (5 MG) 5 MG TABLET GT SCH (20:59)
[2018-02-20] MEDS: DOCUSATE SODIUM LIQ 100 MG/10 ML UDC GT SCH (21:00)
[2018-02-20] MEDS: ASCORBIC ACID 500 MG TABLET GT SCH (21:00)
[2018-02-20] MEDS: D5W IV SCH (21:00)
[2018-02-20] MEDS: TOBRAMYCIN IV SCH (21:00)
[2018-02-20] MEDS: MULTIVIT, IRON, MIN NO. 8, FA 1 TAB GT SCH (21:00)
[2018-02-20] MEDS: SENNOSIDES 8.6 MG TABLET GT SCH (21:01)
[2018-02-21] MEDS: ALBUTEROL FS 2.5 MG/3 ML VIAL.NEB NEB SCH ×4 (01:48→19:47)
[2018-02-21] MEDS: IPRATROPIUM NEB FS 0.5 MG/2.5 ML AMPUL.NEB NEB SCH ×4 (01:48→19:47)
[2018-02-21] MEDS: GLYCOPYRROLATE 1 MG TABLET GT SCH ×4 (05:10→23:37)
[2018-02-21] MEDS: LEVOTHYROXINE SODIUM 125 MCG TABLET GT SCH (05:10)
[2018-02-21] MEDS: BACLOFEN (10 MG) 10 MG TABLET GT SCH ×3 (05:10→21:20)
[2018-02-21] MEDS: METRONIDAZOLE 500 MG TABLET PO SCH ×4 (05:11→23:37)
[2018-02-21 06:40] LABS: CREATININE 2.3 mg/dL (0.6-1.3); POTASSIUM 4.6 mmol/L (3.5-5.1)
[2018-02-21] MEDS: MEROPENEM 500 MG in IV NS 0.9% 100 ML IV SCH ×2 (06:41→18:00)
[2018-02-21 07:38] VITALS: BP 141/72
--- NOTE | 2018-02-21 07:45 | NUR ---
RT PT RECEIVED TRACHED ON THE VENT WITH NOTED SETTINGS. PT IS AWAKE BUT DOES NOT FOLLOW COMMANDS. VENT ALARMS ARE SET AND AUDIBLE WITH BVM BY BEDSIDE. SUGARCANE PLANTER CUFF PRESSURE NOTED. PT SX LARGE THICK PALE YELLOW SECRETIONS. NO SIGNS OF RESPIRATORY DISTRESS NOTED AT THIS TIME, WILL CONTINUE TO MONITOR. Addendum: 02/21/18 at 1737 by CLARK NASH RT Amended: Links added.
[2018-02-21 07:50] LABS: EOSINOPHILS % (AUTO) 0.6 % (0.0-6.0); HEMATOCRIT 23 % (39-51); HEMOGLOBIN 7.2 g/dL (13.5-17.5); LYMPHOCYTES # (AUTO) 0.7 /CMM (0.8-4.8); LYMPHOCYTES % (AUTO) 2.5 % (20.0-44.0); MEAN CORPUSCULAR HEMOGLOBIN 24 PG (26.0-33.0); MEAN CORPUSCULAR HGB CONC 32 g/dl (31.0-36.0); MEAN CORPUSCULAR VOLUME 74 fL (80-96); MONOCYTES # (AUTO) 1.7 /CMM (0.1-1.30); MONOCYTES % (AUTO) 5.7 % (2.0-12.0); NEUTROPHILS # (AUTO) 26.4 /CMM (1.8-8.9); NEUTROPHILS % (AUTO) 91.2 % (43.0-81.0); PLATELET COUNT (AUTO) 251 /CMM (150-450); RDW COEFFICIENT OF VARIATION 20.9 (11.5-15.0); RED BLOOD CELL COUNT(AUTO) 3.07 MIL/uL (4.5-6.0); WHITE BLOOD COUNT (AUTO) 28.9 K/uL (4.3-11.0)
[2018-02-21 08:38] LABS: BAND % (MANUAL) 2 % (0.0-5.0); EOSINOPHILS % (MANUAL) 2 % (0-4); MONOCYTES % (MANUAL) 5 % (0-11.0); NEUTROPHILS % (MANUAL) 91 (42-76)
[2018-02-21] MEDS: OMEPRAZOLE 10 MG CAPSULE.DR GT SCH (09:02)
[2018-02-21] MEDS: ACIDOPHILUS/BULGARICUS 1 EACH TAB.CHEW GT SCH (09:02)
[2018-02-21] MEDS: POTASSIUM CHLORIDE 20 MEQ/15 ML ML GT SCH (09:02)
[2018-02-21] MEDS: POLYETHYLENE GLYCOL 3350 17 GM POWD.PACK GT SCH (09:02)
[2018-02-21] MEDS: AMIODARONE HCL 200 MG TABLET GT SCH (09:02)
[2018-02-21] MEDS: POLYVINYL ALCOHOL 15 ML BOTTLE EACHEYE SCH ×4 (09:02→21:20)
[2018-02-21] MEDS: ZINC OXIDE 30 GM TUBE TP SCH ×2 (09:03→21:20)
[2018-02-21] MEDS: HYDROGEN PEROXIDE 480 ML BOTTLE TP SCH ×2 (09:03→21:20)
[2018-02-21] MEDS: HYDROCODONE/APAP 5/325MG 1 EACH TABLET GT PRN ×3 (09:22→23:38)
--- NOTE | 2018-02-21 09:48 | NUR ---
Patient scheduled for shower today. Called patient's Lilly to check with her if okay to give shower since patient is on IV antibiotics/ hydration. Lilly said to fo bed bath only today, make sure to shower hair, clean behind ears and in between fingers. WALE Simpson notified. Lilly also updated of lab results today.
--- NOTE | 2018-02-21 13:21 | NUR ---
Obtained urine c/s resultL P. Mirabilis ESBL. Relayed culture to ADRY Ricks NPO given at this time. Patient placed on isolation for ESBL urine. Pt's Ping notified, verbalized understanding.
--- NOTE | 2018-02-21 15:50 | NUR ---
Notified Dr. Paniagua that patient noted with facial and BUE edema, RR 30's. BP 133/72, HR 126, Temp 98.6. Patient on IV saline since Sunday. Patient will be given Laurel now. Will monitor. Order obtained to hold IV NS. Order noted and carried out. Pt's Ping notified.
--- NOTE | 2018-02-21 17:40 | NUR ---
Pt still noted with rapid, shallow respirations. RR 24. Order obtained for chest xray. Pt's Ping notified.
[2018-02-21] MEDS: NEPRO 1,000 ML BOTTLE GT PRN (18:50)
--- NOTE | 2018-02-21 18:50 | NUR ---
Pt's at bedside, noted rapid respirations of patient and stated that "she is ready with whatever happens". Pt kept comfortable, all needs and met and attended.
[2018-02-21] MEDS: LORAZEPAM 0.5 MG TABLET GT PRN (19:59)
[2018-02-21 20:00] VITALS: BP 143/85
[2018-02-21] MEDS: FINASTERIDE (5 MG) 5 MG TABLET GT SCH (20:00)
[2018-02-21] MEDS: D5W IV SCH (21:00)
[2018-02-21] MEDS: TOBRAMYCIN IV SCH (21:00)
[2018-02-21] MEDS: ASCORBIC ACID 500 MG TABLET GT SCH (21:20)
[2018-02-21] MEDS: DOCUSATE SODIUM LIQ 100 MG/10 ML UDC GT SCH (21:20)
[2018-02-21] MEDS: MULTIVIT, IRON, MIN NO. 8, FA 1 TAB GT SCH (21:20)
[2018-02-21] MEDS: SENNOSIDES 8.6 MG TABLET GT SCH (21:20)
[2018-02-21] MEDS: MAGNESIUM HYDROXIDE 30 ML UDC GT PRN (21:21)
--- NOTE | 2018-02-21 23:00 | NUR ---
Pt with episode of increased rr 30's with facial grimacing - repositioned kept clean and dry, still at bs with pt's siblings.
--- NOTE | 2018-02-21 23:40 | NUR ---
Prn Majestic for moderate pain given pt still with facial grimacing- unrelieved by non-pharmacologic interventions, such as repositioning. remains @ bs this time.
[2018-02-22] MEDS: ALBUTEROL FS 2.5 MG/3 ML VIAL.NEB NEB SCH ×4 (02:19→20:18)
[2018-02-22] MEDS: IPRATROPIUM NEB FS 0.5 MG/2.5 ML AMPUL.NEB NEB SCH ×4 (02:19→20:18)
[2018-02-22] MEDS: BACLOFEN (10 MG) 10 MG TABLET GT SCH ×3 (05:39→21:34)
[2018-02-22] MEDS: METRONIDAZOLE 500 MG TABLET PO SCH ×4 (05:39→23:34)
[2018-02-22] MEDS: LEVOTHYROXINE SODIUM 125 MCG TABLET GT SCH (05:39)
[2018-02-22] MEDS: GLYCOPYRROLATE 1 MG TABLET GT SCH ×4 (05:39→23:34)
[2018-02-22] MEDS: MEROPENEM 500 MG in IV NS 0.9% 100 ML IV SCH ×2 (06:21→17:43)
[2018-02-22] MEDS: BISACODYL SUPP (10 MG) 10 MG/SUPP.RECT SUPP.RECT RC PRN (06:56)
--- NOTE | 2018-02-22 07:14 | NUR ---
Pt with episodes of WOB mostly after patient care.Urine output still with blood,will continue to monitor.
[2018-02-22 07:38] VITALS: BP 153/81
[2018-02-22] MEDS: OMEPRAZOLE 10 MG CAPSULE.DR GT SCH (09:11)
[2018-02-22] MEDS: ACIDOPHILUS/BULGARICUS 1 EACH TAB.CHEW GT SCH (09:11)
[2018-02-22] MEDS: HYDROGEN PEROXIDE 480 ML BOTTLE TP SCH ×2 (09:11→21:35)
[2018-02-22] MEDS: POTASSIUM CHLORIDE 20 MEQ/15 ML ML GT SCH (09:11)
[2018-02-22] MEDS: POLYVINYL ALCOHOL 15 ML BOTTLE EACHEYE SCH ×4 (09:11→21:34)
[2018-02-22] MEDS: POLYETHYLENE GLYCOL 3350 17 GM POWD.PACK GT SCH (09:11)
[2018-02-22] MEDS: AMIODARONE HCL 200 MG TABLET GT SCH (09:11)
[2018-02-22] MEDS: ZINC OXIDE 30 GM TUBE TP SCH ×2 (09:11→21:35)
[2018-02-22] MEDS: HYDROCODONE/APAP 5/325MG 1 EACH TABLET GT PRN ×2 (12:36→17:57)
--- NOTE | 2018-02-22 17:00 | NUR ---
Seen and examined by Vivian Posada NP for Dr. David this morning, reviewed chest Xray result and labs. Notified Vivian that patient with episode of SOB last night. New order given add peep +5 with current vent setting and said that if patient remains uncomfortable to call her and she may give him diuretic. Patient calm the entire shift, no episode of severe SOB, mild SOB during repositioning but patient recovered right away. Endorsed.
[2018-02-22] MEDS: NEPRO 1,000 ML BOTTLE GT PRN (17:51)
[2018-02-22 19:52] VITALS: BP 135/69
[2018-02-22] MEDS: FINASTERIDE (5 MG) 5 MG TABLET GT SCH (20:00)
[2018-02-22] MEDS: TOBRAMYCIN IV SCH (21:00)
[2018-02-22] MEDS: D5W IV SCH (21:00)
[2018-02-22] MEDS: DOCUSATE SODIUM LIQ 100 MG/10 ML UDC GT SCH (21:34)
[2018-02-22] MEDS: ASCORBIC ACID 500 MG TABLET GT SCH (21:34)
[2018-02-22] MEDS: MULTIVIT, IRON, MIN NO. 8, FA 1 TAB GT SCH (21:34)
[2018-02-22] MEDS: SENNOSIDES 8.6 MG TABLET GT SCH (21:35)
[2018-02-23] MEDS: IPRATROPIUM NEB FS 0.5 MG/2.5 ML AMPUL.NEB NEB SCH ×4 (01:30→20:24)
[2018-02-23] MEDS: ALBUTEROL FS 2.5 MG/3 ML VIAL.NEB NEB SCH ×4 (02:43→20:24)
[2018-02-23] MEDS: METRONIDAZOLE 500 MG TABLET PO SCH ×4 (05:47→23:39)
[2018-02-23] MEDS: GLYCOPYRROLATE 1 MG TABLET GT SCH ×4 (05:47→23:39)
[2018-02-23] MEDS: LEVOTHYROXINE SODIUM 125 MCG TABLET GT SCH (05:47)
[2018-02-23] MEDS: BACLOFEN (10 MG) 10 MG TABLET GT SCH ×3 (05:47→21:20)
--- NOTE | 2018-02-23 05:51 | NUR ---
PT REC'D TRACHED ON [facility] VENT SETTINGS CHARTED. NO RESP DISTRESS NOTED. TRACH IS PATEN AND IN PLACE. SX'D THICK LARGE AMT OF YELLOW SECRETIONS. VENT PLUGGED INTO RED OUTLET, ALARMS ARE SET AND AUDIBLE, BACK UP TRACH AND AMBU BAG BEDSIDE. Addendum: 02/23/18 at 0552 by KERA ADAM RT Amended: Links added.
[2018-02-23] MEDS: MEROPENEM 500 MG in IV NS 0.9% 100 ML IV SCH ×2 (05:58→18:00)
[2018-02-23 07:45] VITALS: BP 125/76
[2018-02-23] MEDS: POLYETHYLENE GLYCOL 3350 17 GM POWD.PACK GT SCH (09:00)
[2018-02-23] MEDS: ZINC OXIDE 30 GM TUBE TP SCH ×4 (09:00→21:20)
[2018-02-23] MEDS: ACIDOPHILUS/BULGARICUS 1 EACH TAB.CHEW GT SCH (09:00)
[2018-02-23] MEDS: POTASSIUM CHLORIDE 20 MEQ/15 ML ML GT SCH (09:00)
[2018-02-23] MEDS: AMIODARONE HCL 200 MG TABLET GT SCH (09:00)
[2018-02-23] MEDS: OMEPRAZOLE 10 MG CAPSULE.DR GT SCH (09:00)
[2018-02-23] MEDS: HYDROGEN PEROXIDE 480 ML BOTTLE TP SCH ×2 (09:00→21:20)
[2018-02-23] MEDS: POLYVINYL ALCOHOL 15 ML BOTTLE EACHEYE SCH ×4 (09:00→21:20)
[2018-02-23] MEDS: HYDROCODONE/APAP 5/325MG 1 EACH TABLET GT PRN (10:15)
--- NOTE | 2018-02-23 16:00 | NUR ---
Notified patient with bilateral groin redness, treatment of zinc oxide obtain from Dr. Daigle. Appreciated the information given.
[2018-02-23 19:46] VITALS: BP 132/73
[2018-02-23] MEDS: FINASTERIDE (5 MG) 5 MG TABLET GT SCH (20:00)
[2018-02-23] MEDS: TOBRAMYCIN IV SCH (21:00)
[2018-02-23] MEDS: D5W IV SCH (21:00)
[2018-02-23] MEDS: DOCUSATE SODIUM LIQ 100 MG/10 ML UDC GT SCH (21:20)
[2018-02-23] MEDS: MULTIVIT, IRON, MIN NO. 8, FA 1 TAB GT SCH (21:20)
[2018-02-23] MEDS: ASCORBIC ACID 500 MG TABLET GT SCH (21:20)
[2018-02-23] MEDS: SENNOSIDES 8.6 MG TABLET GT SCH (21:21)
[2018-02-23] MEDS: MAGNESIUM HYDROXIDE 30 ML UDC GT PRN (21:21)
[2018-02-24] MEDS: IPRATROPIUM NEB FS 0.5 MG/2.5 ML AMPUL.NEB NEB SCH ×4 (02:03→20:04)
[2018-02-24] MEDS: ALBUTEROL FS 2.5 MG/3 ML VIAL.NEB NEB SCH ×4 (02:03→20:04)
--- NOTE | 2018-02-24 03:03 | NUR ---
PT JENI'D ON MECHANICAL VENT. TXS GIVEN AND NO ADVERSE REACTION NOTED. SX DONE T/O SHIFT. PT JENI SECURE AND PATENT. AMBU BAG AT BEDSIDE. VENT PLUGGED INTO RED OUTLET. ALARMS ARE SET AND AUDIBLE. Addendum: 02/24/18 at 0303 by ZORAIDA COLINDRES RT Amended: Links added.
[2018-02-24] MEDS: BACLOFEN (10 MG) 10 MG TABLET GT SCH ×3 (05:24→21:03)
[2018-02-24] MEDS: GLYCOPYRROLATE 1 MG TABLET GT SCH ×3 (05:25→18:51)
[2018-02-24] MEDS: METRONIDAZOLE 500 MG TABLET PO SCH ×3 (05:25→18:51)
[2018-02-24] MEDS: LEVOTHYROXINE SODIUM 125 MCG TABLET GT SCH (05:25)
[2018-02-24] MEDS: NEPRO 1,000 ML BOTTLE GT PRN (05:26)
[2018-02-24] MEDS: MEROPENEM 500 MG in IV NS 0.9% 100 ML IV SCH ×2 (06:02→17:52)
[2018-02-24 07:58] VITALS: BP 144/86
[2018-02-24] MEDS: HYDROGEN PEROXIDE 480 ML BOTTLE TP SCH ×2 (09:00→21:04)
[2018-02-24] MEDS: ZINC OXIDE 30 GM TUBE TP SCH ×4 (09:00→21:04)
[2018-02-24] MEDS: AMIODARONE HCL 200 MG TABLET GT SCH (09:09)
[2018-02-24] MEDS: ACIDOPHILUS/BULGARICUS 1 EACH TAB.CHEW GT SCH (09:09)
[2018-02-24] MEDS: POLYVINYL ALCOHOL 15 ML BOTTLE EACHEYE SCH ×4 (09:09→21:02)
[2018-02-24] MEDS: POTASSIUM CHLORIDE 20 MEQ/15 ML ML GT SCH (09:10)
[2018-02-24] MEDS: POLYETHYLENE GLYCOL 3350 17 GM POWD.PACK GT SCH (09:10)
[2018-02-24] MEDS: OMEPRAZOLE 10 MG CAPSULE.DR GT SCH (09:10)
[2018-02-24] MEDS: LORAZEPAM 0.5 MG TABLET GT PRN (18:40)
[2018-02-24] MEDS: FINASTERIDE (5 MG) 5 MG TABLET GT SCH (20:00)
[2018-02-24 20:03] VITALS: BP 125/71
[2018-02-24] MEDS: TOBRAMYCIN IV SCH ×2 (21:00→22:41)
[2018-02-24] MEDS: D5W IV SCH ×2 (21:00→22:41)
[2018-02-24] MEDS: DOCUSATE SODIUM LIQ 100 MG/10 ML UDC GT SCH (21:03)
[2018-02-24] MEDS: MULTIVIT, IRON, MIN NO. 8, FA 1 TAB GT SCH (21:03)
[2018-02-24] MEDS: ASCORBIC ACID 500 MG TABLET GT SCH (21:03)
[2018-02-24] MEDS: SENNOSIDES 8.6 MG TABLET GT SCH (21:04)
--- NOTE | 2018-02-24 23:53 | NUR ---
RN NOTES PT UPPER R MID-LINE IS NOT FLUSHING. RN, AND ICU REVERSING MILL ROLLER ED TRIED UNSUCCESSFULLY TO INSERT A PERIPHERAL IV. UNABLE TO INFUSE IV TOBRAMYCIN. NURSING HULL MOLDER AWARE. WILL ENDORSE TO AM RN.
[2018-02-25] MEDS: GLYCOPYRROLATE 1 MG TABLET GT SCH ×5 (00:02→23:54)
[2018-02-25] MEDS: METRONIDAZOLE 500 MG TABLET PO SCH ×5 (00:02→23:54)
[2018-02-25] MEDS: IPRATROPIUM NEB FS 0.5 MG/2.5 ML AMPUL.NEB NEB SCH ×4 (01:14→20:02)
[2018-02-25] MEDS: ALBUTEROL FS 2.5 MG/3 ML VIAL.NEB NEB SCH ×4 (01:15→20:02)
[2018-02-25] MEDS: NEPRO 1,000 ML BOTTLE GT PRN (04:41)
[2018-02-25] MEDS: LEVOTHYROXINE SODIUM 125 MCG TABLET GT SCH (05:34)
[2018-02-25] MEDS: BACLOFEN (10 MG) 10 MG TABLET GT SCH ×3 (05:34→20:38)
--- NOTE | 2018-02-25 06:42 | NUR ---
RN NOTES UNABLE TO ADMINISTER 0600 MERREM, PTS R UPPER MID-LINE IS NOT WORKING.
[2018-02-25 06:55] LABS: BASOPHILS % (AUTO) 0.1 % (0.0-2.0); EOSINOPHILS % (AUTO) 3.6 % (0.0-6.0); HEMATOCRIT 28 % (39-51); HEMOGLOBIN 8.8 g/dL (13.5-17.5); LYMPHOCYTES # (AUTO) 1.7 /CMM (0.8-4.8); LYMPHOCYTES % (AUTO) 9.4 % (20.0-44.0); MEAN CORPUSCULAR HEMOGLOBIN 24 PG (26.0-33.0); MEAN CORPUSCULAR HGB CONC 31 g/dl (31.0-36.0); MEAN CORPUSCULAR VOLUME 77 fL (80-96); MONOCYTES # (AUTO) 0.7 /CMM (0.1-1.30); NEUTROPHILS # (AUTO) 14.9 /CMM (1.8-8.9); NEUTROPHILS % (AUTO) 82.9 % (43.0-81.0); PLATELET COUNT (AUTO) 255 /CMM (150-450); RDW COEFFICIENT OF VARIATION 22.1 (11.5-15.0); RED BLOOD CELL COUNT(AUTO) 3.66 MIL/uL (4.5-6.0)
[2018-02-25 08:54] VITALS: BP 152/85
[2018-02-25] MEDS: POLYVINYL ALCOHOL 15 ML BOTTLE EACHEYE SCH ×4 (09:46→20:38)
[2018-02-25] MEDS: ZINC OXIDE 30 GM TUBE TP SCH ×4 (09:47→20:39)
[2018-02-25] MEDS: POTASSIUM CHLORIDE 20 MEQ/15 ML ML GT SCH (09:47)
[2018-02-25] MEDS: OMEPRAZOLE 10 MG CAPSULE.DR GT SCH (09:47)
[2018-02-25] MEDS: POLYETHYLENE GLYCOL 3350 17 GM POWD.PACK GT SCH (09:47)
[2018-02-25] MEDS: HYDROGEN PEROXIDE 480 ML BOTTLE TP SCH ×2 (09:47→20:39)
[2018-02-25] MEDS: ACIDOPHILUS/BULGARICUS 1 EACH TAB.CHEW GT SCH (09:47)
[2018-02-25] MEDS: AMIODARONE HCL 200 MG TABLET GT SCH (09:47)
[2018-02-25 09:50] LABS: BAND % (MANUAL) 4 % (0.0-5.0); EOSINOPHILS % (MANUAL) 3 % (0-4); LYMPHOCYTES % (MANUAL) 9 % (16-48); MONOCYTES % (MANUAL) 14 % (0-11.0); NEUTROPHILS % (MANUAL) 70 (42-76)
--- NOTE | 2018-02-25 11:42 | NUR ---
Notified CARMELITA Ricks that pt's culture results are now available. She said she will review them later. Pt currently on IV Merrem and Tobramycin. Pharmacy said pt might need just one of them. CARMELITA Ricks aware. Addendum: 02/25/18 at 1143 by NOAH OGDEN RN Also asked her to review antibiotics for stop date.
[2018-02-25] MEDS: MEROPENEM 500 MG in IV NS 0.9% 100 ML IV SCH (18:00)
[2018-02-25] MEDS ORDERED: DOSING PER PHARMACY-AMIKACI IV XX PRN (19:30)
[2018-02-25 20:18] VITALS: BP 127/71
[2018-02-25] MEDS: FINASTERIDE (5 MG) 5 MG TABLET GT SCH (20:38)
[2018-02-25] MEDS: DOCUSATE SODIUM LIQ 100 MG/10 ML UDC GT SCH (20:38)
[2018-02-25] MEDS: MULTIVIT, IRON, MIN NO. 8, FA 1 TAB GT SCH (20:38)
[2018-02-25] MEDS: ASCORBIC ACID 500 MG TABLET GT SCH (20:39)
--- NOTE | 2018-02-25 21:30 | NUR ---
RN NOTES Received new order from Dr. Read, for Amikacin 250mg IV q96hr, trough on 02/23/18, noted and carried out.
[2018-02-25] MEDS: SENNOSIDES 8.6 MG TABLET GT SCH (22:12)
[2018-02-26] MEDS: IPRATROPIUM NEB FS 0.5 MG/2.5 ML AMPUL.NEB NEB SCH ×4 (02:14→20:21)
[2018-02-26] MEDS: ALBUTEROL FS 2.5 MG/3 ML VIAL.NEB NEB SCH ×4 (02:14→20:21)
[2018-02-26] MEDS: NEPRO 1,000 ML BOTTLE GT PRN (04:06)
[2018-02-26] MEDS: LEVOTHYROXINE SODIUM 125 MCG TABLET GT SCH (05:11)
[2018-02-26] MEDS: GLYCOPYRROLATE 1 MG TABLET GT SCH ×3 (05:11→18:46)
[2018-02-26] MEDS: BACLOFEN (10 MG) 10 MG TABLET GT SCH ×3 (05:11→21:26)
[2018-02-26] MEDS: METRONIDAZOLE 500 MG TABLET PO SCH ×3 (05:12→18:46)
[2018-02-26] MEDS ORDERED: AMIKACIN 250 MG in IV D5W 100 ML IV SCH (06:00)
[2018-02-26 07:39] VITALS: BP 140/76
[2018-02-26] MEDS: POLYVINYL ALCOHOL 15 ML BOTTLE EACHEYE SCH ×4 (09:09→21:24)
[2018-02-26] MEDS: POLYETHYLENE GLYCOL 3350 17 GM POWD.PACK GT SCH (09:10)
[2018-02-26] MEDS: HYDROGEN PEROXIDE 480 ML BOTTLE TP SCH ×2 (09:10→21:27)
[2018-02-26] MEDS: ZINC OXIDE 30 GM TUBE TP SCH ×4 (09:10→21:27)
[2018-02-26] MEDS: POTASSIUM CHLORIDE 20 MEQ/15 ML ML GT SCH (09:10)
[2018-02-26] MEDS: AMIODARONE HCL 200 MG TABLET GT SCH (09:10)
[2018-02-26] MEDS: ACIDOPHILUS/BULGARICUS 1 EACH TAB.CHEW GT SCH (09:10)
[2018-02-26] MEDS: OMEPRAZOLE 10 MG CAPSULE.DR GT SCH (09:10)
--- NOTE | 2018-02-26 16:17 | NUR ---
RT NOTE: PT RECEIVED WITH A TRACH TUBE IN PLACE ON A MECHANICAL VENT. SUCTIONED AND LAVAGED MODERATE-LARGE AMOUNT OF THICK SOLORZANO SECRETIONS. VENT ALARMS VERIFIED AND AUDIBLE. VENT PLUGGED INTO RED OUTLET. AMBU BAG AND NEW TRACH TUBE AT [facility].
[2018-02-26] MEDS: AMIKACIN 300 MG in IV D5W 100 ML IV SCH (18:00)
[2018-02-26 20:48] VITALS: BP 151/84
[2018-02-26] MEDS: FINASTERIDE (5 MG) 5 MG TABLET GT SCH (21:00)
[2018-02-26] MEDS: ASCORBIC ACID 500 MG TABLET GT SCH (21:26)
[2018-02-26] MEDS: MULTIVIT, IRON, MIN NO. 8, FA 1 TAB GT SCH (21:27)
[2018-02-26] MEDS: SENNOSIDES 8.6 MG TABLET GT SCH (21:27)
[2018-02-26] MEDS: DOCUSATE SODIUM LIQ 100 MG/10 ML UDC GT SCH (21:31)
[2018-02-27] MEDS: GLYCOPYRROLATE 1 MG TABLET GT SCH ×5 (00:51→23:31)
[2018-02-27] MEDS: ALBUTEROL FS 2.5 MG/3 ML VIAL.NEB NEB SCH ×4 (01:14→20:07)
[2018-02-27] MEDS: IPRATROPIUM NEB FS 0.5 MG/2.5 ML AMPUL.NEB NEB SCH ×4 (01:14→20:07)
[2018-02-27] MEDS: AMIKACIN 300 MG in IV D5W 100 ML IV SCH ×2 (05:22→18:45)
[2018-02-27] MEDS: BACLOFEN (10 MG) 10 MG TABLET GT SCH ×3 (05:44→20:15)
[2018-02-27] MEDS: LEVOTHYROXINE SODIUM 125 MCG TABLET GT SCH (05:44)
[2018-02-27] MEDS: METRONIDAZOLE 500 MG TABLET PO SCH ×5 (05:47→23:31)
[2018-02-27] MEDS: NEPRO 1,000 ML BOTTLE GT PRN (06:38)
[2018-02-27 07:45] VITALS: BP 106/62
--- NOTE | 2018-02-27 08:08 | NUR ---
RT PT RECEIVED WITH A PORTEX 7 TRACH ON THE VENT WITH NOTED SETTINGS. PT IS AWAKE BUT DOES NOT FOLLOW COMMANDS. VENT ALARMS ARE SET AND AUDIBLE WITH BVM BY BEDSIDE. LAST MARKER CUFF PRESSURE NOTED. VENT IS PLUGGED INTO RED OUTLET. PT SX'D MODERATE THICK PALE YELLOW SECRETIONS. NO RESPIRATORY DISTRESS NOTED AT THIS TIME, WILL CONTINUE TO MONITOR. Addendum: 02/27/18 at 0809 by CLARK NASH RT Amended: Links added.
[2018-02-27] MEDS: POLYVINYL ALCOHOL 15 ML BOTTLE EACHEYE SCH ×4 (08:54→20:15)
[2018-02-27] MEDS: AMIODARONE HCL 200 MG TABLET GT SCH (08:54)
[2018-02-27] MEDS: OMEPRAZOLE 10 MG CAPSULE.DR GT SCH (08:55)
[2018-02-27] MEDS: ACIDOPHILUS/BULGARICUS 1 EACH TAB.CHEW GT SCH (08:55)
[2018-02-27] MEDS: POTASSIUM CHLORIDE 20 MEQ/15 ML ML GT SCH (08:55)
[2018-02-27] MEDS: ZINC OXIDE 30 GM TUBE TP SCH ×4 (09:00→20:15)
[2018-02-27] MEDS: HYDROGEN PEROXIDE 480 ML BOTTLE TP SCH ×2 (09:00→20:15)
[2018-02-27] MEDS: POLYETHYLENE GLYCOL 3350 17 GM POWD.PACK GT SCH (09:00)
--- NOTE | 2018-02-27 18:30 | NUR ---
Asked CARMELITA Ricks for stop date of Amikacin IV and Flagyl via GT, she said to discontinue Flagyl and Amikacin x 8 more days, and repeat CBC in AM. Endorsed.
[2018-02-27 18:59] LABS: CREATININE 1.8 mg/dL (0.6-1.3)
[2018-02-27] MEDS: DOCUSATE SODIUM LIQ 100 MG/10 ML UDC GT SCH (20:15)
[2018-02-27] MEDS: ASCORBIC ACID 500 MG TABLET GT SCH (20:15)
[2018-02-27] MEDS: FINASTERIDE (5 MG) 5 MG TABLET GT SCH (20:15)
[2018-02-27] MEDS: MULTIVIT, IRON, MIN NO. 8, FA 1 TAB GT SCH (20:15)
[2018-02-27] MEDS: SENNOSIDES 8.6 MG TABLET GT SCH (22:18)
[2018-02-27 22:51] VITALS: BP 119/56
--- NOTE | 2018-02-27 22:52 | NUR ---
Pt Amikacin trough is high 8.5mg/dl reported to [facility] pharmacist Pedro and order to hold dose for tomorrow until random level draw with BUN and Creatine level on Sunday03/01/18 @ 0600.Orders carried out.
[2018-02-28] MEDS: ALBUTEROL FS 2.5 MG/3 ML VIAL.NEB NEB SCH ×4 (01:34→20:02)
[2018-02-28] MEDS: IPRATROPIUM NEB FS 0.5 MG/2.5 ML AMPUL.NEB NEB SCH ×4 (01:34→20:02)
[2018-02-28] MEDS: LEVOTHYROXINE SODIUM 125 MCG TABLET GT SCH (05:26)
[2018-02-28] MEDS: BACLOFEN (10 MG) 10 MG TABLET GT SCH ×3 (05:26→20:31)
[2018-02-28] MEDS: GLYCOPYRROLATE 1 MG TABLET GT SCH ×4 (05:26→23:23)
[2018-02-28] MEDS: METRONIDAZOLE 500 MG TABLET PO SCH (05:27)
[2018-02-28] MEDS: AMIKACIN 300 MG in IV D5W 100 ML IV SCH ×2 (06:00→18:00)
[2018-02-28] MEDS: NEPRO 1,000 ML BOTTLE GT PRN (06:20)
[2018-02-28 07:01] LABS: BASOPHILS % (AUTO) 0.1 % (0.0-2.0); EOSINOPHILS % (AUTO) 2.2 % (0.0-6.0); HEMATOCRIT 26 % (39-51); HEMOGLOBIN 8.3 g/dL (13.5-17.5); LYMPHOCYTES # (AUTO) 1.4 /CMM (0.8-4.8); LYMPHOCYTES % (AUTO) 12.6 % (20.0-44.0); MEAN CORPUSCULAR HEMOGLOBIN 24 PG (26.0-33.0); MEAN CORPUSCULAR HGB CONC 32 g/dl (31.0-36.0); MEAN CORPUSCULAR VOLUME 76 fL (80-96); MONOCYTES # (AUTO) 0.9 /CMM (0.1-1.30); MONOCYTES % (AUTO) 7.6 % (2.0-12.0); NEUTROPHILS # (AUTO) 8.8 /CMM (1.8-8.9); NEUTROPHILS % (AUTO) 77.5 % (43.0-81.0); PLATELET COUNT (AUTO) 449 /CMM (150-450); RDW COEFFICIENT OF VARIATION 22.6 (11.5-15.0); RED BLOOD CELL COUNT(AUTO) 3.41 MIL/uL (4.5-6.0); WHITE BLOOD COUNT (AUTO) 11.4 K/uL (4.3-11.0)
[2018-02-28 07:52] VITALS: BP 135/74
[2018-02-28] MEDS: ACIDOPHILUS/BULGARICUS 1 EACH TAB.CHEW GT SCH (09:35)
[2018-02-28] MEDS: AMIODARONE HCL 200 MG TABLET GT SCH (09:35)
[2018-02-28] MEDS: OMEPRAZOLE 10 MG CAPSULE.DR GT SCH (09:35)
[2018-02-28] MEDS: POLYVINYL ALCOHOL 15 ML BOTTLE EACHEYE SCH ×4 (09:35→20:31)
[2018-02-28] MEDS: POLYETHYLENE GLYCOL 3350 17 GM POWD.PACK GT SCH (09:35)
[2018-02-28] MEDS: POTASSIUM CHLORIDE 20 MEQ/15 ML ML GT SCH (09:35)
[2018-02-28] MEDS: ZINC OXIDE 30 GM TUBE TP SCH ×6 (09:36→20:32)
[2018-02-28] MEDS: HYDROGEN PEROXIDE 480 ML BOTTLE TP SCH ×2 (09:36→20:32)
--- NOTE | 2018-02-28 12:30 | NUR ---
Seen by CARMELITA Posada, NNO given.
--- NOTE | 2018-02-28 16:10 | NUR ---
RT PT RECEIVED ON THE VENT WITH NOTED SETTINGS. PT IS AWAKE BUT DOES NOT FOLLOW COMMANDS. VENT ALARMS ARE SET AND AUDIBLE WITH BVM BY BEDSIDE. RECREATIONAL THERAPY AIDE CUFF PRESSURE NOTED. VENT IS PLUGGED INTO RED OUTLET. PT SX'D MODERATE THICK PALE YELLOW SECRETIONS. NO RESPIRATORY DISTRESS NOTED AT THIS TIME, WILL CONTINUE TO MONITOR. Addendum: 02/27/18 at 0809 by CLARK NASH RT
[2018-02-28 20:00] VITALS: BP 120/83
[2018-02-28] MEDS: MULTIVIT, IRON, MIN NO. 8, FA 1 TAB GT SCH (20:31)
[2018-02-28] MEDS: FINASTERIDE (5 MG) 5 MG TABLET GT SCH (20:31)
[2018-02-28] MEDS: DOCUSATE SODIUM LIQ 100 MG/10 ML UDC GT SCH (20:31)
[2018-02-28] MEDS: MAGNESIUM HYDROXIDE 30 ML UDC GT PRN (20:32)
[2018-02-28] MEDS: ASCORBIC ACID 500 MG TABLET GT SCH (20:32)
[2018-02-28] MEDS: SENNOSIDES 8.6 MG TABLET GT SCH (21:05)
[2018-03-01] MEDS: IPRATROPIUM NEB FS 0.5 MG/2.5 ML AMPUL.NEB NEB SCH ×4 (01:18→20:26)
[2018-03-01] MEDS: ALBUTEROL FS 2.5 MG/3 ML VIAL.NEB NEB SCH ×4 (01:19→20:26)
[2018-03-01] MEDS: GLYCOPYRROLATE 1 MG TABLET GT SCH ×4 (05:22→23:47)
[2018-03-01] MEDS: BACLOFEN (10 MG) 10 MG TABLET GT SCH ×3 (05:22→21:17)
[2018-03-01] MEDS: LEVOTHYROXINE SODIUM 125 MCG TABLET GT SCH (05:22)
[2018-03-01] MEDS: NEPRO 1,000 ML BOTTLE GT PRN (05:23)
[2018-03-01] MEDS: AMIKACIN 300 MG in IV D5W 100 ML IV SCH ×2 (06:00→18:40)
--- NOTE | 2018-03-01 06:49 | NUR ---
Pt remains afebrile during shift , no resp distress, still noted with hematuria. Kept clean and comfortable.
--- NOTE | 2018-03-01 06:56 | NUR ---
Patient still noted with hematuria.Amikacin random trough drawn waiting for result.
[2018-03-01 08:04] VITALS: BP 115/65
[2018-03-01] MEDS: ACIDOPHILUS/BULGARICUS 1 EACH TAB.CHEW GT SCH (09:08)
[2018-03-01] MEDS: POLYVINYL ALCOHOL 15 ML BOTTLE EACHEYE SCH ×4 (09:08→21:17)
[2018-03-01] MEDS: OMEPRAZOLE 10 MG CAPSULE.DR GT SCH (09:08)
[2018-03-01] MEDS: ZINC OXIDE 30 GM TUBE TP SCH ×6 (09:08→21:17)
[2018-03-01] MEDS: POLYETHYLENE GLYCOL 3350 17 GM POWD.PACK GT SCH (09:08)
[2018-03-01] MEDS: POTASSIUM CHLORIDE 20 MEQ/15 ML ML GT SCH (09:08)
[2018-03-01] MEDS: HYDROGEN PEROXIDE 480 ML BOTTLE TP SCH ×2 (09:08→21:17)
[2018-03-01] MEDS: AMIODARONE HCL 200 MG TABLET GT SCH (09:08)
[2018-03-01] MEDS: FINASTERIDE (5 MG) 5 MG TABLET GT SCH (20:00)
[2018-03-01 20:07] VITALS: BP 118/69
[2018-03-01] MEDS: ASCORBIC ACID 500 MG TABLET GT SCH (21:17)
[2018-03-01] MEDS: DOCUSATE SODIUM LIQ 100 MG/10 ML UDC GT SCH (21:17)
[2018-03-01] MEDS: MULTIVIT, IRON, MIN NO. 8, FA 1 TAB GT SCH (21:17)
[2018-03-01] MEDS: SENNOSIDES 8.6 MG TABLET GT SCH (21:17)
[2018-03-02] MEDS: ALBUTEROL FS 2.5 MG/3 ML VIAL.NEB NEB SCH ×4 (01:52→20:01)
[2018-03-02] MEDS: IPRATROPIUM NEB FS 0.5 MG/2.5 ML AMPUL.NEB NEB SCH ×4 (01:52→20:01)
[2018-03-02] MEDS: BACLOFEN (10 MG) 10 MG TABLET GT SCH ×3 (05:18→21:30)
[2018-03-02] MEDS: GLYCOPYRROLATE 1 MG TABLET GT SCH ×4 (05:18→23:48)
[2018-03-02] MEDS: LEVOTHYROXINE SODIUM 125 MCG TABLET GT SCH (05:18)
[2018-03-02] MEDS: MAGNESIUM HYDROXIDE 30 ML UDC GT PRN (05:18)
[2018-03-02] MEDS: NEPRO 1,000 ML BOTTLE GT PRN (05:19)
[2018-03-02] MEDS: AMIKACIN 300 MG in IV D5W 100 ML IV SCH ×2 (06:04→18:00)
[2018-03-02 07:59] VITALS: BP 138/78
[2018-03-02] MEDS: POLYVINYL ALCOHOL 15 ML BOTTLE EACHEYE SCH ×4 (09:30→21:30)
[2018-03-02] MEDS: HYDROGEN PEROXIDE 480 ML BOTTLE TP SCH ×2 (09:31→21:30)
[2018-03-02] MEDS: POLYETHYLENE GLYCOL 3350 17 GM POWD.PACK GT SCH (09:31)
[2018-03-02] MEDS: ZINC OXIDE 30 GM TUBE TP SCH ×6 (09:31→21:30)
[2018-03-02] MEDS: AMIODARONE HCL 200 MG TABLET GT SCH (09:31)
[2018-03-02] MEDS: OMEPRAZOLE 10 MG CAPSULE.DR GT SCH (09:31)
[2018-03-02] MEDS: POTASSIUM CHLORIDE 20 MEQ/15 ML ML GT SCH (09:31)
[2018-03-02] MEDS: ACIDOPHILUS/BULGARICUS 1 EACH TAB.CHEW GT SCH (09:31)
--- NOTE | 2018-03-02 12:37 | NUR ---
Seen and examined by Vivian Posada NP for BISI Carvajal given, aware that patient still with slight hematuria.
--- NOTE | 2018-03-02 16:46 | NUR ---
RT RECEIVED PT TRACH VENT DEPENDENT; VENT SETTINGS NOTED AND TOLERATING WELL; VENT ALARMS CHECKED AND AUDIBLE. FRAMING MILL OPERATOR DONE AND TRACH IS SECURE. AMBU BAG AND SPARE TRACH NOTED HOB. VENT PLUGGED IN RED OUTLET. SX WITH MOD TO LRG THK YELLOW/SOLORZANO SECRETIONS. VENT CIRCUIT AND VENT BAL CHANGED. NO RESP DISTRESS NOTED, WILL CONTINUE TO MONITOR.
[2018-03-02] MEDS: HYDROCODONE/APAP 5/325MG 1 EACH TABLET GT PRN (17:32)
--- NOTE | 2018-03-02 18:32 | NUR ---
Received a call from [facility] pharmacy for Amikacin dosing. D/C current dose and change Amikacin 500mg QD starting tomorrow in am at 0600.
[2018-03-02] MEDS: FINASTERIDE (5 MG) 5 MG TABLET GT SCH (20:00)
[2018-03-02 20:06] VITALS: BP 131/67
[2018-03-02] MEDS: SENNOSIDES 8.6 MG TABLET GT SCH (21:30)
[2018-03-02] MEDS: ASCORBIC ACID 500 MG TABLET GT SCH (21:30)
[2018-03-02] MEDS: DOCUSATE SODIUM LIQ 100 MG/10 ML UDC GT SCH (21:30)
[2018-03-02] MEDS: MULTIVIT, IRON, MIN NO. 8, FA 1 TAB GT SCH (21:30)
[2018-03-03] MEDS: IPRATROPIUM NEB FS 0.5 MG/2.5 ML AMPUL.NEB NEB SCH ×4 (01:52→20:23)
[2018-03-03] MEDS: ALBUTEROL FS 2.5 MG/3 ML VIAL.NEB NEB SCH ×4 (01:52→20:23)
[2018-03-03] MEDS: LEVOTHYROXINE SODIUM 125 MCG TABLET GT SCH (05:09)
[2018-03-03] MEDS: BACLOFEN (10 MG) 10 MG TABLET GT SCH ×3 (05:09→20:56)
[2018-03-03] MEDS: GLYCOPYRROLATE 1 MG TABLET GT SCH ×4 (05:09→23:59)
[2018-03-03] MEDS: NEPRO 1,000 ML BOTTLE GT PRN (05:10)
[2018-03-03] MEDS: AMIKACIN 500 MG in IV NS 0.9% 100 ML IV SCH (06:59)
[2018-03-03 07:48] VITALS: BP 134/62
--- NOTE | 2018-03-03 08:55 | NUR ---
RT RECEIVED PT TRACH VENT DEPENDENT; VENT SETTINGS NOTED AND TOLERATING WELL; VENT ALARMS CHECKED AND AUDIBLE. FRAMING CARPENTER DONE AND TRACH IS SECURE. AMBU BAG AND SPARE TRACH NOTED HOB. VENT PLUGGED IN RED OUTLET. SX WITH MOD TO LRG THK YELLOW/SOLORZANO SECRETIONS. NO RESP DISTRESS NOTED, WILL CONTINUE TO MONITOR.
[2018-03-03] MEDS: POLYVINYL ALCOHOL 15 ML BOTTLE EACHEYE SCH ×4 (09:19→20:56)
[2018-03-03] MEDS: HYDROGEN PEROXIDE 480 ML BOTTLE TP SCH ×2 (09:19→20:57)
[2018-03-03] MEDS: POLYETHYLENE GLYCOL 3350 17 GM POWD.PACK GT SCH (09:19)
[2018-03-03] MEDS: OMEPRAZOLE 10 MG CAPSULE.DR GT SCH (09:19)
[2018-03-03] MEDS: POTASSIUM CHLORIDE 20 MEQ/15 ML ML GT SCH (09:19)
[2018-03-03] MEDS: ACIDOPHILUS/BULGARICUS 1 EACH TAB.CHEW GT SCH (09:19)
[2018-03-03] MEDS: AMIODARONE HCL 200 MG TABLET GT SCH (09:19)
[2018-03-03] MEDS: ZINC OXIDE 30 GM TUBE TP SCH ×6 (09:20→20:57)
[2018-03-03 20:08] VITALS: BP 137/86
[2018-03-03] MEDS: MULTIVIT, IRON, MIN NO. 8, FA 1 TAB GT SCH (20:55)
[2018-03-03] MEDS: ASCORBIC ACID 500 MG TABLET GT SCH (20:56)
[2018-03-03] MEDS: FINASTERIDE (5 MG) 5 MG TABLET GT SCH (20:56)
[2018-03-03] MEDS: DOCUSATE SODIUM LIQ 100 MG/10 ML UDC GT SCH (20:56)
[2018-03-03] MEDS: SENNOSIDES 8.6 MG TABLET GT SCH (22:20)
[2018-03-04] MEDS: IPRATROPIUM NEB FS 0.5 MG/2.5 ML AMPUL.NEB NEB SCH ×4 (01:38→19:36)
[2018-03-04] MEDS: ALBUTEROL FS 2.5 MG/3 ML VIAL.NEB NEB SCH ×4 (01:38→19:36)
--- NOTE | 2018-03-04 04:53 | NUR ---
PATIENT RECEIVED TRACHED ON MECHANICAL VENTILATION. VENT PLUGGED INTO RED OUTLET. AMBU BAG/BACK UP TRACH @ BEDSIDE. ALARMS ON AND AUDIBLE. SX DONE, MODERATE THICK SOLORZANO SECRETIONS NOTED. TRACH SECURED AND PATENT. HME REPLACED. PATIENT STABLE T/O SHIFT. NO DISTRESS NOTED. Addendum: 03/04/18 at 0454 by SUSSY NORTON RT Amended: Links added.
[2018-03-04] MEDS: NEPRO 1,000 ML BOTTLE GT PRN (05:41)
[2018-03-04] MEDS: GLYCOPYRROLATE 1 MG TABLET GT SCH ×3 (05:45→17:40)
[2018-03-04] MEDS: BACLOFEN (10 MG) 10 MG TABLET GT SCH ×3 (05:46→20:48)
[2018-03-04] MEDS: LEVOTHYROXINE SODIUM 125 MCG TABLET GT SCH (05:46)
[2018-03-04] MEDS: AMIKACIN 500 MG in IV NS 0.9% 100 ML IV SCH (06:00)
[2018-03-04 07:40] VITALS: BP 130/75
[2018-03-04] MEDS: ACIDOPHILUS/BULGARICUS 1 EACH TAB.CHEW GT SCH (09:14)
[2018-03-04] MEDS: HYDROGEN PEROXIDE 480 ML BOTTLE TP SCH ×2 (09:14→20:49)
[2018-03-04] MEDS: OMEPRAZOLE 10 MG CAPSULE.DR GT SCH (09:14)
[2018-03-04] MEDS: POLYETHYLENE GLYCOL 3350 17 GM POWD.PACK GT SCH (09:14)
[2018-03-04] MEDS: AMIODARONE HCL 200 MG TABLET GT SCH (09:14)
[2018-03-04] MEDS: POTASSIUM CHLORIDE 20 MEQ/15 ML ML GT SCH (09:14)
[2018-03-04] MEDS: POLYVINYL ALCOHOL 15 ML BOTTLE EACHEYE SCH ×4 (09:14→20:47)
[2018-03-04] MEDS: ZINC OXIDE 30 GM TUBE TP SCH ×6 (09:15→20:50)
--- NOTE | 2018-03-04 17:13 | NUR ---
RT NOTES; PATIENT WAS RECEIVED ON CONTINUOUS VENT SUPPORT . SUCTIONED PATIENT WITH A MODERATE AMOUNT OF THIN WHITE SECRETIONS. ALARMS ON AND AUDIBLE. AMBUBAG AND SPARE TRACH AT BEDSIDE. TRACH PATENT AND SECURED. Addendum: 03/04/18 at 1717 by PATRICK JIANG RT Amended: Links added.
--- NOTE | 2018-03-04 19:30 | NUR ---
RN NOTES Noted f/c draining bloody urine. V/S WNL. Urine out 500ml mixed blood. Irrigated f/c with NS. Will continue to monitor.
[2018-03-04 20:18] VITALS: BP 125/74
[2018-03-04] MEDS: FINASTERIDE (5 MG) 5 MG TABLET GT SCH (20:47)
[2018-03-04] MEDS: MULTIVIT, IRON, MIN NO. 8, FA 1 TAB GT SCH (20:48)
[2018-03-04] MEDS: DOCUSATE SODIUM LIQ 100 MG/10 ML UDC GT SCH (20:48)
[2018-03-04] MEDS: ASCORBIC ACID 500 MG TABLET GT SCH (20:49)
[2018-03-04] MEDS: HYDROCODONE/APAP 5/325MG 1 EACH TABLET GT PRN (20:51)
[2018-03-04] MEDS: SENNOSIDES 8.6 MG TABLET GT SCH (22:23)
[2018-03-05] MEDS: GLYCOPYRROLATE 1 MG TABLET GT SCH ×4 (00:05→17:42)
[2018-03-05] MEDS: LEVOTHYROXINE SODIUM 125 MCG TABLET GT SCH (05:53)
[2018-03-05] MEDS: BACLOFEN (10 MG) 10 MG TABLET GT SCH ×3 (05:53→21:08)
[2018-03-05] MEDS: AMIKACIN 500 MG in IV NS 0.9% 100 ML IV SCH (06:00)
[2018-03-05] MEDS: NEPRO 1,000 ML BOTTLE GT PRN (06:18)
[2018-03-05 08:08] VITALS: BP 140/87
[2018-03-05] MEDS: ALBUTEROL FS 2.5 MG/3 ML VIAL.NEB NEB SCH ×3 (08:31→20:27)
[2018-03-05] MEDS: IPRATROPIUM NEB FS 0.5 MG/2.5 ML AMPUL.NEB NEB SCH ×3 (08:31→20:27)
[2018-03-05] MEDS: POLYVINYL ALCOHOL 15 ML BOTTLE EACHEYE SCH ×4 (08:57→21:07)
[2018-03-05] MEDS: AMIODARONE HCL 200 MG TABLET GT SCH (08:57)
[2018-03-05] MEDS: ZINC OXIDE 30 GM TUBE TP SCH ×6 (08:58→21:09)
[2018-03-05] MEDS: POTASSIUM CHLORIDE 20 MEQ/15 ML ML GT SCH (08:58)
[2018-03-05] MEDS: HYDROGEN PEROXIDE 480 ML BOTTLE TP SCH ×2 (08:58→21:09)
[2018-03-05] MEDS: ACIDOPHILUS/BULGARICUS 1 EACH TAB.CHEW GT SCH (08:58)
[2018-03-05] MEDS: POLYETHYLENE GLYCOL 3350 17 GM POWD.PACK GT SCH (08:58)
[2018-03-05] MEDS: OMEPRAZOLE 10 MG CAPSULE.DR GT SCH (08:58)
[2018-03-05] MEDS: SIMETHICONE SUSP 40 MG/0.6 ML BOTTLE PO SCH (13:00)
--- NOTE | 2018-03-05 13:30 | NUR ---
Pt still has hematuria. Temp 98.0 F. Pt on Amikacin for sepsis. Notified Dr. Reeder. Addendum: 03/05/18 at 1702 by NOAH OGDEN RN BP 121/68 P 100
--- NOTE | 2018-03-05 14:10 | NUR ---
PT JENI'D ON MECHANICAL VENT. TXS GIVEN AND NO ADVERSE REACTION NOTED. SX DONE T/O SHIFT. PT TRACH PATENT AND SECURE. AMBU BAG AT BEDSIDE. VENT PLUGGED INTO RED OUTLET. ALARMS ARE SET AND AUDIBLE. WILL CONTINUE TO MONITOR. Addendum: 03/05/18 at 1411 by ZORAIDA COLINDRES RT Amended: Links added.
--- NOTE | 2018-03-05 16:15 | NUR ---
Seen by CARMELITA Samano. Pt still having hematuria. CARMELITA Canas ordered CBC, CMP, UA C & S, lactic acid, PTT, PT/INR STAT. Notified pt's . Addendum: 03/05/18 at 1704 by NOAH OGDEN RN BP 1 Addendum: 03/05/18 at 1704 by NOAH OGDEN RN BP 118/64 P 100
[2018-03-05 16:51] LABS: ALANINE AMINOTRANSFERASE 19 U/L (12-78); ALBUMIN 2.3 g/dL (3.4-5.0); ALKALINE PHOSPHATASE 81 U/L (46-116); ASPARTATE AMINOTRANSFERASE 27 U/L (15-37); BILIRUBIN,TOTAL 0.5 mg/dL (0.2-1.0); CALCIUM, SERUM 8.4 mg/dL (8.5-10.1); CARBON DIOXIDE 24 mmol/L (21-32); CHLORIDE 94 mmol/L (98-107); CREATININE 4.5 mg/dL (0.6-1.3); GLUCOSE 134 mg/dL (74-106); SODIUM SERUM 128 mmol/L (136-145); TOTAL PROTEIN, SERUM 7.2 g/dL (6.4-8.2); UREA NITROGEN, BLOOD 66 mg/dL (7-18)
[2018-03-05 16:55] LABS: BASOPHILS % (AUTO) 0.1 % (0.0-2.0); EOSINOPHILS % (AUTO) 0.9 % (0.0-6.0); HEMATOCRIT 23 % (39-51); HEMOGLOBIN 7.3 g/dL (13.5-17.5); LYMPHOCYTES % (AUTO) 4.1 % (20.0-44.0); MEAN CORPUSCULAR HEMOGLOBIN 24 PG (26.0-33.0); MEAN CORPUSCULAR HGB CONC 32 g/dl (31.0-36.0); MEAN CORPUSCULAR VOLUME 76 fL (80-96); MONOCYTES # (AUTO) 2.6 /CMM (0.1-1.30); NEUTROPHILS # (AUTO) 19.7 /CMM (1.8-8.9); NEUTROPHILS % (AUTO) 83.9 % (43.0-81.0); PLATELET COUNT (AUTO) 579 /CMM (150-450); RDW COEFFICIENT OF VARIATION 23.2 (11.5-15.0); RED BLOOD CELL COUNT(AUTO) 3.05 MIL/uL (4.5-6.0); WHITE BLOOD COUNT (AUTO) 23.5 K/uL (4.3-11.0)
[2018-03-05 16:56] LABS: INR 0.97 (0.87-1.13)
[2018-03-05 17:06] LABS: BAND % (MANUAL) 6 % (0.0-5.0); EOSINOPHILS % (MANUAL) 2 % (0-4); LYMPHOCYTES % (MANUAL) 2 % (16-48); MONOCYTES % (MANUAL) 14 % (0-11.0); NEUTROPHILS % (MANUAL) 76 (42-76)
[2018-03-05] MEDS ORDERED: SODIUM POLYSTYRENE SULFONATE 15 G/60 ML BOTTLE GT ONE (18:00)
--- NOTE | 2018-03-05 18:05 | NUR ---
Relayed lab results to CARMELITA Samano. She said to refer to primary doctor. Relayed results to Dr. Reeder. Received order to DC KCl, give Kayexalate 30 gm GT x 1 and repeat potassium level in AM. Also received order to transfuse 1 unit of PRBC. Verified informed consent with pt's . Addendum: 03/05/18 at 1807 by NOAH OGDEN RN K 6.0 Hgb 7.3 Hct 23
[2018-03-05 18:55] LABS: BILIRUBIN,URINE 3+ (NEGATIVE); BLOOD, URINE 3+ Ery/uL (NEGATIVE); COLOR,URINE RED (YELLOW); KETONES,URINE 1+ (NEGATIVE); LEUKOCYTE ESTERASE ,URINE 3+ (NEGATIVE); NITRITE, URINE POSITIVE (NEGATIVE); PROTEIN,URINE 3+ mg/dl (NEGATIVE); UGLUCOSE TRACE mg/dL (NEGATIVE)
[2018-03-05 19:00] LABS: BILIRUBIN,DIRECT 0.1 mg/dL (0.0-0.2)
[2018-03-05 19:18] LABS: APPEARANCE,URINE HAZY (CLEAR)
[2018-03-05 19:19] LABS: BACTERIA,URINE Few /HPF (None Seen); RBC,URINE TOO NUMEROUS TO COUN /HPF (0-2); SQUAMOUS EPITHELIAL CELL,UR Rare /HPF (None Seen)
[2018-03-05] MEDS: FINASTERIDE (5 MG) 5 MG TABLET GT SCH (20:00)
[2018-03-05 20:23] VITALS: BP 109/73
[2018-03-05] MEDS: ASCORBIC ACID 500 MG TABLET GT SCH (21:08)
[2018-03-05] MEDS: MULTIVIT, IRON, MIN NO. 8, FA 1 TAB GT SCH (21:08)
[2018-03-05] MEDS: DOCUSATE SODIUM LIQ 100 MG/10 ML UDC GT SCH (21:08)
[2018-03-05] MEDS: SENNOSIDES 8.6 MG TABLET GT SCH (21:09)
[2018-03-05] MEDS: HYDROCODONE/APAP 5/325MG 1 EACH TABLET GT PRN (21:33)
[2018-03-05 22:20] VITALS: BP 122/68
--- NOTE | 2018-03-05 22:20 | NUR ---
RN NOTE BLOOD TRANSFUSION INITIATED WITH A CHARGE NURSE, VITAL SIGNS INITIATED, NO REACTION NOTED AT THIS TIME, WILL CONTINUE TO MONITOR PATIENT
[2018-03-05 22:35] VITALS: BP 107/61
--- NOTE | 2018-03-05 22:35 | NUR ---
RN NOTE NO BLOOD TRANSFUSION REACTION NOTED, TOLERATES BLOOD TRANSFUSION WELL
[2018-03-05 23:05] VITALS: BP 108/69
--- NOTE | 2018-03-05 23:15 | NUR ---
RN NOTE NO BLOOD TRANSFUSION REACTION NOTED, TOLERATES BLOOD TRANSFUSION WELL, AFEBRILE, WILL CONTINUE TO MONITOR PATIENT
[2018-03-06] MEDS: GLYCOPYRROLATE 1 MG TABLET GT SCH ×5 (00:04→23:30)
[2018-03-06 00:05] VITALS: BP 129/75
--- NOTE | 2018-03-06 00:05 | NUR ---
RN NOTE PATIENT TOLERATES BLOOD TRANSFUSION WELL, AFEBRILE, NO SOB, NO RESPIRATORY DISTRESS NOTED, ALL SAFETY MEASURES TAKEN, WILL CONTINUE TO MONITOR
[2018-03-06 00:25] VITALS: BP 134/78
--- NOTE | 2018-03-06 00:26 | NUR ---
RN NOTE BLOOD TRANSFUSION COMPLETED, TOLERATED WELL, NO S/S OF DISTRESS NOTED, AFEBRILE
[2018-03-06] MEDS: IPRATROPIUM NEB FS 0.5 MG/2.5 ML AMPUL.NEB NEB SCH ×4 (01:22→20:04)
[2018-03-06] MEDS: ALBUTEROL FS 2.5 MG/3 ML VIAL.NEB NEB SCH ×4 (01:22→20:04)
[2018-03-06] MEDS: LEVOTHYROXINE SODIUM 125 MCG TABLET GT SCH (05:21)
[2018-03-06] MEDS: BACLOFEN (10 MG) 10 MG TABLET GT SCH ×3 (05:21→20:33)
[2018-03-06] MEDS: AMIKACIN 500 MG in IV NS 0.9% 100 ML IV SCH (06:00)
[2018-03-06] MEDS: NEPRO 1,000 ML BOTTLE GT PRN (06:29)
[2018-03-06 08:13] VITALS: BP 126/76
[2018-03-06] MEDS: POLYVINYL ALCOHOL 15 ML BOTTLE EACHEYE SCH ×4 (09:00→20:33)
[2018-03-06] MEDS: AMIODARONE HCL 200 MG TABLET GT SCH (09:00)
[2018-03-06] MEDS: HYDROGEN PEROXIDE 480 ML BOTTLE TP SCH ×2 (09:00→20:33)
[2018-03-06] MEDS: ZINC OXIDE 30 GM TUBE TP SCH ×6 (09:00→20:34)
[2018-03-06] MEDS: POLYETHYLENE GLYCOL 3350 17 GM POWD.PACK GT SCH (09:00)
[2018-03-06] MEDS: OMEPRAZOLE 10 MG CAPSULE.DR GT SCH (09:00)
[2018-03-06] MEDS: ACIDOPHILUS/BULGARICUS 1 EACH TAB.CHEW GT SCH (09:00)
[2018-03-06 15:58] LABS: OCCULT BLOOD STOOL POSITIVE (NEGATIVE)
[2018-03-06 17:56] LABS: CREATININE 4.2 mg/dL (0.6-1.3)
--- NOTE | 2018-03-06 18:45 | NUR ---
Notified Dr. Baljinder Reeder regarding K+ (4.5) result today and labs from yesterday with new order to add BUN and Creat from this morning's lab draw. He was also made aware patient's F/C draining dark colored urine, irrigated with 200 cc NS, no change in color. New order given to do [address] way continuos bladder irrigation with NS until clear. Notified Mrs. Bradley of new order. Endorsed to insert 3 way F/C.
[2018-03-06 20:18] VITALS: BP 100/58
[2018-03-06] MEDS: FINASTERIDE (5 MG) 5 MG TABLET GT SCH (20:33)
[2018-03-06] MEDS: DOCUSATE SODIUM LIQ 100 MG/10 ML UDC GT SCH (20:33)
[2018-03-06] MEDS: SIMETHICONE SUSP 40 MG/0.6 ML BOTTLE PO SCH (20:33)
[2018-03-06] MEDS: MULTIVIT, IRON, MIN NO. 8, FA 1 TAB GT SCH (20:33)
[2018-03-06] MEDS: ASCORBIC ACID 500 MG TABLET GT SCH (20:33)
--- NOTE | 2018-03-06 21:31 | NUR ---
Removed victoria F#16/10 changed to Victoria F # 18x[address] irrigation catheter,inserted with no difficulty or resistant.Connected to NS irrigation solution until the urine clear out.Still noted with hematuria around this time.Will continue to monitor.
[2018-03-06] MEDS: SENNOSIDES 8.6 MG TABLET GT SCH (22:02)
[2018-03-06] MEDS: ACETAMINOPHEN 650 MG/20 ML UDC- FOR SA PATIENTS ONLY GT PRN (23:31)
[2018-03-07] MEDS: ALBUTEROL FS 2.5 MG/3 ML VIAL.NEB NEB SCH ×4 (01:50→19:57)
[2018-03-07] MEDS: IPRATROPIUM NEB FS 0.5 MG/2.5 ML AMPUL.NEB NEB SCH ×4 (01:50→19:57)
[2018-03-07] MEDS: BACLOFEN (10 MG) 10 MG TABLET GT SCH ×3 (05:25→20:56)
[2018-03-07] MEDS: LEVOTHYROXINE SODIUM 125 MCG TABLET GT SCH (05:25)
[2018-03-07] MEDS: GLYCOPYRROLATE 1 MG TABLET GT SCH ×3 (05:25→17:32)
[2018-03-07] MEDS: SIMETHICONE SUSP 40 MG/0.6 ML BOTTLE PO SCH ×3 (05:25→20:56)
[2018-03-07] MEDS: AMIKACIN 500 MG in IV NS 0.9% 100 ML IV SCH (06:09)
--- NOTE | 2018-03-07 06:22 | NUR ---
Pt on continuos NS irrigation via 3 way victoria.Still noted with hematuria even with irrigation,will continue to monitor.Abdominal distention noted,no residual,BM current,no emesis.Will endorse to oncoming shift.
[2018-03-07] MEDS: NEPRO 1,000 ML BOTTLE GT PRN (07:29)
[2018-03-07 07:37] VITALS: BP 129/74
--- NOTE | 2018-03-07 08:13 | NUR ---
RT PT RECEIVED WITH A PORTEX 7 TRACH ON THE VENT WITH NOTED SETTINGS. PT IS AWAKE BUT DOES NOT FOLLOW COMMANDS. VENT ALARMS ARE SET AND AUDIBLE WITH BVM BY BEDSIDE. MULTICULTURAL SERVICES LIBRARIAN CUFF PRESSURE NOTED. VENT IS PLUGGED INTO RED OUTLET. SX LARGE PALE YELLOW THICK SECRETIONS. NO RESPIRATORY DISTRESS NOTED AT THIS TIME, WILL CONTINUE TO MONITOR. Addendum: 03/07/18 at 1045 by CLARK NASH RT Amended: Links added.
[2018-03-07] MEDS: OMEPRAZOLE 10 MG CAPSULE.DR GT SCH (08:51)
[2018-03-07] MEDS: AMIODARONE HCL 200 MG TABLET GT SCH (08:51)
[2018-03-07] MEDS: POLYETHYLENE GLYCOL 3350 17 GM POWD.PACK GT SCH (08:51)
[2018-03-07] MEDS: POLYVINYL ALCOHOL 15 ML BOTTLE EACHEYE SCH ×4 (08:51→20:56)
[2018-03-07] MEDS: ACIDOPHILUS/BULGARICUS 1 EACH TAB.CHEW GT SCH (08:51)
[2018-03-07] MEDS: HYDROGEN PEROXIDE 480 ML BOTTLE TP SCH ×2 (09:00→20:57)
[2018-03-07] MEDS: ZINC OXIDE 30 GM TUBE TP SCH ×6 (09:00→20:57)
--- NOTE | 2018-03-07 11:48 | NUR ---
Notified Dr. Reeder that pt's bladder has been irrigated with 3L of NS and urine is still bloody. Dr. Reeder ordered urology consult. Spoke with social work assistant Xiomara. She said there is no urologist available at this time but a new urologist will start tomorrow. Notified Dr. Reeder. No new order at this time.
--- NOTE | 2018-03-07 13:20 | NUR ---
Informed by charge nurse that resident in need of a urology consult. Per LINUS Cavazos, one will start tomorrow. IGOR faxed referral to office of Dr. Villaseñor-urologist- ([address] [place] [address] [place] [phone] . IGOR received fax confirmation page. IGOR also spoke with legal administrative secretary Mary and she stated that she will let the doctor know and he will call if he has any questions. Informed charge nurse. Addendum: 03/07/18 at [address] Villaseñor called SW stated he would come tomorrow.
--- NOTE | 2018-03-07 13:30 | NUR ---
Pt's is visiting. She is aware of pt's hematuria. Notified her of urology consult order.
--- NOTE | 2018-03-07 13:34 | NUR ---
Spoke with DAQUAN Wahl. He said urologist only comes to [facility] once a month, but urologist will see pt tomorrow at 2pm.
--- NOTE | 2018-03-07 17:09 | NUR ---
Received order from CARMELITA Ricks to [facility] Amikacin.
[2018-03-07 20:05] VITALS: BP 98/63
[2018-03-07] MEDS: MULTIVIT, IRON, MIN NO. 8, FA 1 TAB GT SCH (20:56)
[2018-03-07] MEDS: FINASTERIDE (5 MG) 5 MG TABLET GT SCH (20:56)
[2018-03-07] MEDS: ASCORBIC ACID 500 MG TABLET GT SCH (20:56)
[2018-03-07] MEDS: DOCUSATE SODIUM LIQ 100 MG/10 ML UDC GT SCH (20:56)
[2018-03-07] MEDS: SENNOSIDES 8.6 MG TABLET GT SCH (21:54)
[2018-03-07] MEDS: HYDROCODONE/APAP 5/325MG 1 EACH TABLET GT PRN (23:20)
[2018-03-08] VITALS (12 sets, daily range): BP systolic 89–135; BP diastolic 53–82
[2018-03-08] MEDS: GLYCOPYRROLATE 1 MG TABLET GT SCH ×5 (00:33→23:06)
[2018-03-08] MEDS: ALBUTEROL FS 2.5 MG/3 ML VIAL.NEB NEB SCH ×4 (02:25→19:25)
[2018-03-08] MEDS: IPRATROPIUM NEB FS 0.5 MG/2.5 ML AMPUL.NEB NEB SCH ×4 (02:25→19:25)
[2018-03-08] MEDS: BACLOFEN (10 MG) 10 MG TABLET GT SCH ×3 (05:00→20:42)
[2018-03-08] MEDS: SIMETHICONE SUSP 40 MG/0.6 ML BOTTLE PO SCH ×3 (05:00→20:43)
[2018-03-08] MEDS: LEVOTHYROXINE SODIUM 125 MCG TABLET GT SCH (06:04)
--- NOTE | 2018-03-08 06:33 | NUR ---
Still with continuos bladder irrigation with NS via 3 way victoria catheter.Output remains bloody with some clots.Pt remains afebrile,no respiratory distress noted. is concerned that hemoglobin is low again due to bloody urine.Will continue to monitor and will endorse to oncoming nurse.
[2018-03-08] MEDS: HYDROGEN PEROXIDE 480 ML BOTTLE TP SCH ×2 (09:00→20:43)
[2018-03-08] MEDS: ZINC OXIDE 30 GM TUBE TP SCH ×6 (09:00→20:43)
[2018-03-08] MEDS: POLYVINYL ALCOHOL 15 ML BOTTLE EACHEYE SCH ×4 (09:05→20:42)
[2018-03-08] MEDS: ACIDOPHILUS/BULGARICUS 1 EACH TAB.CHEW GT SCH (09:06)
[2018-03-08] MEDS: POLYETHYLENE GLYCOL 3350 17 GM POWD.PACK GT SCH (09:06)
[2018-03-08] MEDS: OMEPRAZOLE 10 MG CAPSULE.DR GT SCH (09:06)
[2018-03-08] MEDS: AMIODARONE HCL 200 MG TABLET GT SCH (09:06)
[2018-03-08] MEDS: ACETAMINOPHEN 650 MG/20 ML UDC- FOR SA PATIENTS ONLY GT PRN (09:06)
--- NOTE | 2018-03-08 10:46 | NUR ---
NOTIFIED DR CHACORTA DONAHUE REGARDING PATIENT FC STILL WITH BLEEDING DESPITE CONTINUOUS BLADDER IRRIGATION WITH NEW ORDERS TO RECHECK CBC. NOTED AND CARRIED OUT.
[2018-03-08 11:28] LABS: EOSINOPHILS % (AUTO) 0.4 % (0.0-6.0); LYMPHOCYTES # (AUTO) 0.6 /CMM (0.8-4.8); LYMPHOCYTES % (AUTO) 3.4 % (20.0-44.0); MEAN CORPUSCULAR HEMOGLOBIN 25 PG (26.0-33.0); MEAN CORPUSCULAR HGB CONC 32 g/dl (31.0-36.0); MEAN CORPUSCULAR VOLUME 78 fL (80-96); MONOCYTES # (AUTO) 1.7 /CMM (0.1-1.30); MONOCYTES % (AUTO) 9.1 % (2.0-12.0); NEUTROPHILS # (AUTO) 16.2 /CMM (1.8-8.9); NEUTROPHILS % (AUTO) 87.1 % (43.0-81.0); PLATELET COUNT (AUTO) 538 /CMM (150-450); RDW COEFFICIENT OF VARIATION 23.4 (11.5-15.0); RED BLOOD CELL COUNT(AUTO) 2.27 MIL/uL (4.5-6.0); WHITE BLOOD COUNT (AUTO) 18.6 K/uL (4.3-11.0)
[2018-03-08 11:46] LABS: HEMOGLOBIN 5.6 g/dL (13.5-17.5)
[2018-03-08 11:47] LABS: HEMATOCRIT 18 % (39-51)
[2018-03-08 12:03] LABS: LYMPHOCYTES % (MANUAL) 3 % (16-48); MONOCYTES % (MANUAL) 12 % (0-11.0); NEUTROPHILS % (MANUAL) 85 (42-76)
--- NOTE | 2018-03-08 12:15 | NUR ---
RECEIVED LAB RESULT RELAYED TO DR CHACORTA DONAHUE WITH NEW ORDERS FOR 2 UNITS PRBC AND TYPE AND SCREEN. BRIAN MADE AWARE AND GOT CONSENT. NOTED AND CARRIED OUT.
[2018-03-08] MEDS ORDERED: DDAVP 20 MCG in IV NS 50 ML IV ONE ×2 (13:00→15:00)
--- NOTE | 2018-03-08 13:00 | NUR ---
DR DAVIDSON ( UROLOGIST ) SEEN AND EVALUATED PATIENT , CHANGED FC TO FR24 AND IRRIGATE TREVINO CATHETER , PATIENT TOLERATED WELL. URINE COLLECTED FOR UA C/S, SENT TO THE LABORATORY. NEW ORDER INCLUDES PROSCAR VIA GT FOR BPH. NOTED AND CARRIED, MRS SCHAEFFER NOTIFIED OF NEW ORDER.
--- NOTE | 2018-03-08 13:05 | NUR ---
RECEIVED NEW ORDERS FROM DR CHACORTA DONAHUE TO GIVE AMICAR 4 GRAMS IV THEN A DRIP OF 1 GM/ HR X 8 HRS. PER PHARMACY AMICAR NOT AVAILABLE, NOTIFIED DR CHACORTA DONAHUE WITH NEW ORDERS TO D/C PREVIOUS ORDER FOR AMICAR CHANGE TO Ddavp INJ 4 MCG /ML 20 MCG IN IV 0.9% NS 50 ML @ 110ML/ HR. NOTIFIED BRIAN REGARDING NEW ORDER. NOTED AND CARRIED OUT.
--- NOTE | 2018-03-08 15:00 | NUR ---
DR. DAVIDSON REEVALUATED PATIENT'S F/C IF IT IS STILL BLEEDING. SEEN RESULT OF BLADDER ULTRASOUND. SPOKE WITH MRS. SCHAEFFER ON THE PHONE AND EXPLAINED RESULT OF ULTRASOUND WITH PATIENT'S . MRS. SCHAEFFER VERBALIZED EARLIER WITH THIS NURSE THAT SHE DOES NOT WANT PATIENT TO BE TRANSFERRED TO ACUTE HOSPITAL AND WOULD LIKE TO DO COMFORT MEASURES ONLY. ADVISED FAMILY TO UPDATE PREFERRED INTENSITY OF CARE TO INDICATE "NO TRANSFER TO ACUTE". WHEN DR DAVIDSON SPOKE WITH ON THE PHONE HE MENTIONED TO HER THAT IF SHE WANTS COMFORT CARE, PATIENT MAY NEED HOSPICE EVAL. MRS SCHAEFFER STILL TO DECIDE WHETHER TO GO ON THIS ROUTE CONSIDERING PATIENT'S FAMILY FROM HIS FIRST MARRIAGE WILL NOT BE IN AGREEMENT. VERBALIZED THAT SHE WANTS COMFORT CARE BUT STILL WANT THE CT SCAN OF THE PELVIS/ ABDOMEN DONE. CLARIFIED CT ORDER FROM DR DAVIDSON WHETHER TO GIVE IT WITH IV CONTRAST BECAUSE CREATININE LEVEL IS 4.2. HE SAID NOT TO DO CT WITH CONTRAST. ORDER CARRIED OUT. DR CHACORTA DONAHUE NOTIFIED OF ABOVE INFORMATION.
--- NOTE | 2018-03-08 15:10 | NUR ---
Ddavp dose for 1500 not given, dose given at 1300.
[2018-03-08] MEDS: NEPRO 1,000 ML BOTTLE GT PRN (16:14)
--- NOTE | 2018-03-08 17:53 | NUR ---
CT scan result relayed to Dr. Powell, he said that he will speak with patient's tomorrow. Resident's F/C still draining red to pinkish in color. Will continue to monitor.
[2018-03-08] MEDS: DOCUSATE SODIUM LIQ 100 MG/10 ML UDC GT SCH (20:42)
[2018-03-08] MEDS: MULTIVIT, IRON, MIN NO. 8, FA 1 TAB GT SCH (20:42)
[2018-03-08] MEDS: FINASTERIDE (5 MG) 5 MG TABLET GT SCH (20:42)
[2018-03-08] MEDS: ASCORBIC ACID 500 MG TABLET GT SCH (20:43)
[2018-03-08] MEDS: SENNOSIDES 8.6 MG TABLET GT SCH (22:11)
--- NOTE | 2018-03-08 22:48 | NUR ---
SUB ACUTE RN NOTES BLOOD TRANSFUSION DONE AT 2248. VITAL SIGNS STABLE. NO ACUTE REACTIONS NOTED AT THIS TIME. PT RESTED AND COMFORTABLE. WILL CONTINUE TO MONITOR PT CLOSELY.
[2018-03-08] MEDS: HYDROCODONE/APAP 5/325MG 1 EACH TABLET GT PRN (23:07)
[2018-03-09] MEDS: ALBUTEROL FS 2.5 MG/3 ML VIAL.NEB NEB SCH ×4 (01:48→20:16)
[2018-03-09] MEDS: IPRATROPIUM NEB FS 0.5 MG/2.5 ML AMPUL.NEB NEB SCH ×4 (01:48→20:16)
[2018-03-09] MEDS: GLYCOPYRROLATE 1 MG TABLET GT SCH ×4 (05:47→23:43)
[2018-03-09] MEDS: SIMETHICONE SUSP 40 MG/0.6 ML BOTTLE PO SCH ×3 (05:47→21:50)
[2018-03-09] MEDS: LEVOTHYROXINE SODIUM 125 MCG TABLET GT SCH (05:47)
[2018-03-09] MEDS: BACLOFEN (10 MG) 10 MG TABLET GT SCH ×3 (05:47→21:50)
--- NOTE | 2018-03-09 05:58 | NUR ---
STILL ON CONTINUOS BLADDER IRRIGATION,URINE OUTPUT STILL BLOODY.WILL CONTINUE TO MONITOR.VITALS STABLE AT THIS TIME,NO DISTRESS NOTED,COMFORTABLE.
[2018-03-09] MEDS ORDERED: AMIKACIN 500 MG in IV NS 0.9% 100 ML IV SCH (06:00)
[2018-03-09 07:36] VITALS: BP 120/51
[2018-03-09] MEDS: POLYVINYL ALCOHOL 15 ML BOTTLE EACHEYE SCH ×4 (08:14→21:50)
[2018-03-09] MEDS: ACIDOPHILUS/BULGARICUS 1 EACH TAB.CHEW GT SCH (08:15)
[2018-03-09] MEDS: ZINC OXIDE 30 GM TUBE TP SCH ×6 (08:15→21:51)
[2018-03-09] MEDS: HYDROGEN PEROXIDE 480 ML BOTTLE TP SCH ×2 (08:15→21:50)
[2018-03-09] MEDS: OMEPRAZOLE 10 MG CAPSULE.DR GT SCH (08:15)
[2018-03-09] MEDS: POLYETHYLENE GLYCOL 3350 17 GM POWD.PACK GT SCH (08:15)
[2018-03-09] MEDS: AMIODARONE HCL 200 MG TABLET GT SCH (08:15)
[2018-03-09] MEDS: HYDROCODONE/APAP 5/325MG 1 EACH TABLET GT PRN (08:17)
--- NOTE | 2018-03-09 09:00 | NUR ---
Informed Dr. Baljinder Reeder that signed an updated PIC, remain DNR, with supportive care that states 'No transfer to acute hospital and no dialysis". Order given to update code status.
[2018-03-09 12:42] LABS: BASOPHILS % (AUTO) 0.1 % (0.0-2.0); EOSINOPHILS % (AUTO) 1.9 % (0.0-6.0); HEMATOCRIT 22 % (39-51); HEMOGLOBIN 7.2 g/dL (13.5-17.5); LYMPHOCYTES % (AUTO) 5.7 % (20.0-44.0); MEAN CORPUSCULAR HEMOGLOBIN 27 PG (26.0-33.0); MEAN CORPUSCULAR HGB CONC 33 g/dl (31.0-36.0); MEAN CORPUSCULAR VOLUME 83 fL (80-96); MONOCYTES # (AUTO) 2.2 /CMM (0.1-1.30); MONOCYTES % (AUTO) 12.8 % (2.0-12.0); NEUTROPHILS # (AUTO) 13.4 /CMM (1.8-8.9); NEUTROPHILS % (AUTO) 79.5 % (43.0-81.0); PLATELET COUNT (AUTO) 406 /CMM (150-450); RDW COEFFICIENT OF VARIATION 21.1 (11.5-15.0); RED BLOOD CELL COUNT(AUTO) 2.67 MIL/uL (4.5-6.0); WHITE BLOOD COUNT (AUTO) 16.9 K/uL (4.3-11.0)
[2018-03-09 13:24] LABS: BAND % (MANUAL) 1 % (0.0-5.0); LYMPHOCYTES % (MANUAL) 8 % (16-48); METAMYELOCYTES % 2 % (0-0); MONOCYTES % (MANUAL) 16 % (0-11.0); NEUTROPHILS % (MANUAL) 73 (42-76)
--- NOTE | 2018-03-09 16:10 | NUR ---
Notified Dr. Baljinder Reeder that patient's GT stoma is red, and the balloon protruding underneath the skin especially when he coughs. Patient's abdomen distended. Replaced GT with Fr 20 and abdominal KUB done, showed proper placement. notified.
--- NOTE | 2018-03-09 18:29 | NUR ---
Received a call from Dr. Powell, urologist and said that he is on his way. He asked if family would like to meet him at the facility to discuss result of CT scan. Mrs. Escobedo Kirk notified and will be here when MD comes. FC still bleeding, remain on continuous bladder irrigation.
--- NOTE | 2018-03-09 19:10 | NUR ---
Notified Dr. Baljinder Reeder that newly inserted GT is leaking due to larger stoma. Gi consult ordered. Endorsed to incoming shift. Dr. Powell at bedside hand irrigating FC with NS with incoming charge nurse assisting MD. also present at this time.
--- NOTE | 2018-03-09 19:15 | NUR ---
Dr. Powell at bedside irrigating victoria catheter with NS. Patient tolerating well. Patient walked in and MD explained the patient situation to her and ask if she wants to do "heroic" approach of treatment and explained to her how things works but refused all further treatment stating she just want comfort measure for the patient. MD with new order of Amicar and Pyridium.
[2018-03-09] MEDS: FINASTERIDE (5 MG) 5 MG TABLET GT SCH (20:00)
--- NOTE | 2018-03-09 20:30 | NUR ---
Informed Dr. Hernández that patient's BP is 87/51. with new order of NS 500cc bolus via IV. will continue to monitor.
[2018-03-09] MEDS: DOCUSATE SODIUM LIQ 100 MG/10 ML UDC GT SCH (21:50)
[2018-03-09] MEDS: ASCORBIC ACID 500 MG TABLET GT SCH (21:50)
[2018-03-09] MEDS: MULTIVIT, IRON, MIN NO. 8, FA 1 TAB GT SCH (21:50)
[2018-03-09] MEDS: SENNOSIDES 8.6 MG TABLET GT SCH (21:51)
[2018-03-09] MEDS: ACETAMINOPHEN 650 MG/20 ML UDC- FOR SA PATIENTS ONLY GT PRN (23:30)
--- NOTE | 2018-03-09 23:30 | NUR ---
Rechecked BP= 109/58. will continue to monitor.
--- NOTE | 2018-03-09 23:35 | NUR ---
Called and Spoke with Dr. Hanson regarding GI consult.
[2018-03-09] MEDS: NEPRO 1,000 ML BOTTLE GT PRN (23:43)
[2018-03-10] MEDS: ALBUTEROL FS 2.5 MG/3 ML VIAL.NEB NEB SCH ×4 (02:00→19:30)
[2018-03-10] MEDS: IPRATROPIUM NEB FS 0.5 MG/2.5 ML AMPUL.NEB NEB SCH ×4 (02:00→19:30)
--- NOTE | 2018-03-10 02:11 | NUR ---
PT JENI'D ON MECHANICAL VENT. TXS GIVEN AND NO ADVERSE REACTION NOTED. SX DONE T/O SHIFT. PT JENI PATENT AND SECURE. AMBU BAG AT BEDSIDE. VENT PLUGGED INTO RED OUTLET. ALARMS ARE SET AND AUDIBLE. Addendum: 03/10/18 at 0212 by ZORAIDA COLINDRES RT Amended: Links added.
[2018-03-10 03:38] VITALS: BP 87/51
[2018-03-10] MEDS: BACLOFEN (10 MG) 10 MG TABLET GT SCH ×3 (05:27→20:52)
[2018-03-10] MEDS: SIMETHICONE SUSP 40 MG/0.6 ML BOTTLE PO SCH ×3 (05:27→20:52)
[2018-03-10] MEDS: GLYCOPYRROLATE 1 MG TABLET GT SCH ×3 (05:27→17:10)
[2018-03-10] MEDS: LEVOTHYROXINE SODIUM 125 MCG TABLET GT SCH (05:27)
--- NOTE | 2018-03-10 05:50 | NUR ---
checked patient's vital signs ON=267/61, WY=994, RR=15, Temp=98.0 no s/s of distress note. will continue to monitor.
[2018-03-10 06:15] VITALS: BP 103/61
[2018-03-10 07:36] VITALS: BP 102/54
[2018-03-10] MEDS ORDERED: IV NS 0.9% 500 ML IV ONE (08:30)
[2018-03-10] MEDS: PHENAZOPYRIDINE HCL 200 MG TABLET GT SCH (09:00)
[2018-03-10] MEDS: HYDROGEN PEROXIDE 480 ML BOTTLE TP SCH ×2 (09:00→20:52)
[2018-03-10] MEDS: ZINC OXIDE 30 GM TUBE TP SCH ×6 (09:00→20:52)
[2018-03-10] MEDS: POLYVINYL ALCOHOL 15 ML BOTTLE EACHEYE SCH ×4 (09:26→20:52)
[2018-03-10] MEDS: ACIDOPHILUS/BULGARICUS 1 EACH TAB.CHEW GT SCH (09:27)
[2018-03-10] MEDS: AMIODARONE HCL 200 MG TABLET GT SCH (09:27)
[2018-03-10] MEDS: POLYETHYLENE GLYCOL 3350 17 GM POWD.PACK GT SCH (09:27)
[2018-03-10] MEDS: OMEPRAZOLE 10 MG CAPSULE.DR GT SCH (09:27)
[2018-03-10] MEDS: ACETAMINOPHEN 650 MG/20 ML UDC- FOR SA PATIENTS ONLY GT PRN (11:16)
--- NOTE | 2018-03-10 17:30 | NUR ---
Urologist (Dr. 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 On continuous bladder irrigation, hanged 2 bags NS (3000 ML). Clarified with urologist stop date for pyridium, no stop date. PER urologist too he wants patient to be on ATB THERAPY for prostate, he ordered levaquin via GT AND PHARMACIST to dose. He is aware final urine culture results. Noted and carried out.
--- NOTE | 2018-03-10 18:00 | NUR ---
Called [facility] pharmacist (Eliane) made her aware of [facility] NEW ORDER, pharmacy to dose on levaquin via GT. She requested that she wants to speak to Dr. Villaseñor to verify orders. Made her aware no stop date on pyridium. Noted.
--- NOTE | 2018-03-10 19:10 | NUR ---
[facility] pharmacist called (MALLIKA), Has new order, levaquin 250 mg via gt 1 tablet every 48 hrs x 28 days , DX Prostatitis. first dose to get from [facility]. Noted and carried out.
[2018-03-10 19:44] VITALS: BP 96/50
[2018-03-10] MEDS: FINASTERIDE (5 MG) 5 MG TABLET GT SCH (20:52)
[2018-03-10] MEDS: MULTIVIT, IRON, MIN NO. 8, FA 1 TAB GT SCH (20:52)
[2018-03-10] MEDS: DOCUSATE SODIUM LIQ 100 MG/10 ML UDC GT SCH (20:52)
[2018-03-10] MEDS: ASCORBIC ACID 500 MG TABLET GT SCH (20:52)
[2018-03-10] MEDS: HYDROCODONE/APAP 5/325MG 1 EACH TABLET GT PRN (21:02)
[2018-03-10] MEDS: SENNOSIDES 8.6 MG TABLET GT SCH (21:14)
[2018-03-11] MEDS: GLYCOPYRROLATE 1 MG TABLET GT SCH ×5 (00:38→23:42)
[2018-03-11] MEDS: NEPRO 1,000 ML BOTTLE GT PRN (01:01)
[2018-03-11] MEDS: IPRATROPIUM NEB FS 0.5 MG/2.5 ML AMPUL.NEB NEB SCH ×4 (01:30→20:07)
[2018-03-11] MEDS: ALBUTEROL FS 2.5 MG/3 ML VIAL.NEB NEB SCH ×4 (01:30→20:08)
[2018-03-11] MEDS: BACLOFEN (10 MG) 10 MG TABLET GT SCH ×3 (05:00→21:04)
[2018-03-11] MEDS: SIMETHICONE SUSP 40 MG/0.6 ML BOTTLE PO SCH ×3 (05:00→21:04)
[2018-03-11] MEDS: LEVOTHYROXINE SODIUM 125 MCG TABLET GT SCH (06:00)
[2018-03-11 07:43] VITALS: BP 126/73
--- NOTE | 2018-03-11 07:50 | NUR ---
RT PT RECEIVED WITH A PORTEX 7 TRACH ON THE VENT WITH NOTED SETTINGS. PT IS AWAKE BUT DOES NOT FOLLOW COMMANDS. VENT ALARMS ARE SET AND AUDIBLE WITH BVM BY BEDSIDE. INTERNET APPLICATION DEVELOPER CUFF PRESSURE NOTED. VENT IS PLUGGED INTO RED OUTLET. SX LARGE PALE YELLOW THICK SECRETIONS. NO RESPIRATORY DISTRESS NOTED AT THIS TIME, WILL CONTINUE TO MONITOR. Addendum: 03/11/18 at 1102 by CLARK NASH RT Amended: Links added.
[2018-03-11] MEDS: AMIODARONE HCL 200 MG TABLET GT SCH (09:04)
[2018-03-11] MEDS: POLYVINYL ALCOHOL 15 ML BOTTLE EACHEYE SCH ×4 (09:04→21:04)
[2018-03-11] MEDS: PHENAZOPYRIDINE HCL 200 MG TABLET GT SCH (09:05)
[2018-03-11] MEDS: POLYETHYLENE GLYCOL 3350 17 GM POWD.PACK GT SCH (09:05)
[2018-03-11] MEDS: OMEPRAZOLE 10 MG CAPSULE.DR GT SCH (09:05)
[2018-03-11] MEDS: ACIDOPHILUS/BULGARICUS 1 EACH TAB.CHEW GT SCH (09:05)
[2018-03-11] MEDS: METOCLOPRAMIDE HCL 10 MG TABLET GT PRN (10:17)
[2018-03-11] MEDS: ZINC OXIDE 30 GM TUBE TP SCH ×6 (11:00→21:04)
[2018-03-11] MEDS: HYDROGEN PEROXIDE 480 ML BOTTLE TP SCH ×2 (11:00→21:04)
--- NOTE | 2018-03-11 16:22 | NUR ---
Notified Dr. Reeder that pt is still having hematuria. He ordered to repeat CBC and have urologist see pt again. Notified urologist Dr. Powell. He said he already discussed doing surgery with the , but pt's does not want to have pt undergo surgery. Dr. Powell said he told the that the bleeding will not stop unless surgery is done, but just wants to keep pt comfortable at this time. He said to ask the again if she changed her mind. Pt's does not want pt to be transferred to acute hospital anymore as well. Dr. Powell said he would like to speak with Dr. Reeder. Gave him Dr. Reeder's number. Notified Dr. Reeder about Dr. Powell's conversation with the . He said pt might have to be placed on hospice. Asked pt's if she changed her mind about surgery, and she said the urologist already discussed it with her and also discussed the risks with her. She said she does not want surgery for the pt nor transfer to acute hospital. She said she will discuss possible hospice with Dr. David during IDT meeting. Notified Dr. Reeder.
[2018-03-11 16:27] LABS: BASOPHILS % (AUTO) 0.2 % (0.0-2.0); EOSINOPHILS % (AUTO) 0.4 % (0.0-6.0); LYMPHOCYTES # (AUTO) 1.5 /CMM (0.8-4.8); LYMPHOCYTES % (AUTO) 5.9 % (20.0-44.0); MEAN CORPUSCULAR HEMOGLOBIN 27 PG (26.0-33.0); MEAN CORPUSCULAR HGB CONC 29 g/dl (31.0-36.0); MEAN CORPUSCULAR VOLUME 92 fL (80-96); MONOCYTES # (AUTO) 3.3 /CMM (0.1-1.30); MONOCYTES % (AUTO) 13.1 % (2.0-12.0); NEUTROPHILS # (AUTO) 20.5 /CMM (1.8-8.9); NEUTROPHILS % (AUTO) 80.4 % (43.0-81.0); PLATELET COUNT (AUTO) 446 /CMM (150-450); RDW COEFFICIENT OF VARIATION 24.6 (11.5-15.0); WHITE BLOOD COUNT (AUTO) 25.5 K/uL (4.3-11.0)
[2018-03-11 16:29] LABS: RED BLOOD CELL COUNT(AUTO) 1.94 MIL/uL (4.5-6.0)
[2018-03-11 16:31] LABS: HEMATOCRIT 18 % (39-51); HEMOGLOBIN 5.2 g/dL (13.5-17.5)
[2018-03-11 16:39] LABS: BAND % (MANUAL) 2 % (0.0-5.0); LYMPHOCYTES % (MANUAL) 12 % (16-48); METAMYELOCYTES % 2 % (0-0); MONOCYTES % (MANUAL) 12 % (0-11.0); MYELOCYTES % 2 % (0-0); NEUTROPHILS % (MANUAL) 70 (42-76)
[2018-03-11 19:54] VITALS: BP 87/43
[2018-03-11] MEDS: FINASTERIDE (5 MG) 5 MG TABLET GT SCH (21:00)
[2018-03-11] MEDS: ASCORBIC ACID 500 MG TABLET GT SCH (21:04)
[2018-03-11] MEDS: DOCUSATE SODIUM LIQ 100 MG/10 ML UDC GT SCH (21:04)
[2018-03-11] MEDS: MULTIVIT, IRON, MIN NO. 8, FA 1 TAB GT SCH (21:04)
[2018-03-11] MEDS: SENNOSIDES 8.6 MG TABLET GT SCH (21:05)
[2018-03-11 21:52] VITALS: BP 121/77
[2018-03-11 22:17] VITALS: BP 122/76
[2018-03-11 22:47] VITALS: BP 125/71
[2018-03-12] VITALS (8 sets, daily range): BP systolic 96–155; BP diastolic 55–80
[2018-03-12] MEDS ORDERED: LEVOFLOXACIN (250MG) 250 MG TABLET GT SCH (01:00)
[2018-03-12] MEDS: IPRATROPIUM NEB FS 0.5 MG/2.5 ML AMPUL.NEB NEB SCH ×4 (01:42→20:11)
[2018-03-12] MEDS: ALBUTEROL FS 2.5 MG/3 ML VIAL.NEB NEB SCH ×4 (01:43→20:11)
[2018-03-12] MEDS: GLYCOPYRROLATE 1 MG TABLET GT SCH ×4 (05:24→23:24)
[2018-03-12] MEDS: LEVOTHYROXINE SODIUM 125 MCG TABLET GT SCH (05:24)
[2018-03-12] MEDS: BACLOFEN (10 MG) 10 MG TABLET GT SCH ×3 (05:24→20:24)
[2018-03-12] MEDS: SIMETHICONE SUSP 40 MG/0.6 ML BOTTLE PO SCH ×3 (05:24→20:24)
[2018-03-12] MEDS: NEPRO 1,000 ML BOTTLE GT PRN (05:24)
[2018-03-12] MEDS: POLYVINYL ALCOHOL 15 ML BOTTLE EACHEYE SCH ×4 (08:20→20:23)
[2018-03-12] MEDS: AMIODARONE HCL 200 MG TABLET GT SCH (08:21)
[2018-03-12] MEDS: PHENAZOPYRIDINE HCL 200 MG TABLET GT SCH (08:22)
[2018-03-12] MEDS: POLYETHYLENE GLYCOL 3350 17 GM POWD.PACK GT SCH (08:22)
[2018-03-12] MEDS: OMEPRAZOLE 10 MG CAPSULE.DR GT SCH (08:22)
[2018-03-12] MEDS: ACIDOPHILUS/BULGARICUS 1 EACH TAB.CHEW GT SCH (08:22)
--- NOTE | 2018-03-12 10:14 | NUR ---
RT RECEIVED PT TRACH VENT DEPENDENT; VENT SETTINGS NOTED AND TOLERATING WELL; VENT ALARMS CHECKED AND AUDIBLE. JANITORIAL ACCOUNT MANAGER DONE AND TRACH IS SECURE. AMBU BAG AND SPARE TRACH NOTED HOB. VENT PLUGGED IN RED OUTLET. SX WITH MOD THK YELLOW SECRETIONS. NO RESP DISTRESS NOTED, WILL CONTINUE TO MONITOR.
[2018-03-12] MEDS ORDERED: AMINOCAPROIC ACID 500 MG TABLET GT ONE (10:30)
[2018-03-12] MEDS: ZINC OXIDE 30 GM TUBE TP SCH ×6 (10:45→20:25)
[2018-03-12] MEDS: HYDROGEN PEROXIDE 480 ML BOTTLE TP SCH ×2 (10:45→20:25)
[2018-03-12] MEDS: HYDROCODONE/APAP 5/325MG 1 EACH TABLET GT PRN (14:00)
--- NOTE | 2018-03-12 15:00 | NUR ---
Pt's G-tube almost coming out. Replaced G-tube. Noticed formula, yellowish gastric fluid, and some blood leaking from the G-tube. Notified ETCHER APPRENTICE PHOTOENGRAVING Floresita Samano and received order to do KUB. Notified pt's .
[2018-03-12] MEDS ORDERED: DIATR MEGLU/DIATRIZOATE SODIUM 30 ML BOTTLE (GASTROGRAPHIN) ONE (16:08)
[2018-03-12] MEDS: AMINOCAPROIC ACID 500 MG TABLET GT SCH ×2 (17:13→20:24)
--- NOTE | 2018-03-12 17:55 | NUR ---
CARMELITA Ricks ordered to give Tobramycin IV pharmacy to dose for 2 weeks for prostatitis, MESERET Escalante. Notified pt's .
--- NOTE | 2018-03-12 19:27 | NUR ---
Relayed KUB result to THREE KNIFE TRIMMER Floresita Samano. She said it is fine to use G-tube.
--- NOTE | 2018-03-12 20:00 | NUR ---
RN NOTES Received pt with no distress. Continues with bladder irrigation and still has bloody urine. V/S WNL. Will continue to monitor.
[2018-03-12] MEDS: FINASTERIDE (5 MG) 5 MG TABLET GT SCH (20:23)
[2018-03-12] MEDS: ASCORBIC ACID 500 MG TABLET GT SCH (20:24)
[2018-03-12] MEDS: DOCUSATE SODIUM LIQ 100 MG/10 ML UDC GT SCH (20:24)
[2018-03-12] MEDS: MULTIVIT, IRON, MIN NO. 8, FA 1 TAB GT SCH (20:24)
[2018-03-12] MEDS: SENNOSIDES 8.6 MG TABLET GT SCH (21:51)
--- NOTE | 2018-03-13 | NUR ---
RN NOTES Received new order from CARMELITA Ricks for Amikacin 100mg IVPB q48hrs x14 days, noted and carried out. Order verified with sales support consultant pharmacist.
[2018-03-13] MEDS: AMINOCAPROIC ACID 500 MG TABLET GT SCH ×6 (00:47→20:47)
[2018-03-13] MEDS ORDERED: TOBRAMYCIN 80 MG/2 ML VIAL IV ONE (01:00)
[2018-03-13] MEDS: ALBUTEROL FS 2.5 MG/3 ML VIAL.NEB NEB SCH ×4 (01:28→19:38)
[2018-03-13] MEDS: IPRATROPIUM NEB FS 0.5 MG/2.5 ML AMPUL.NEB NEB SCH ×4 (01:28→19:38)
--- NOTE | 2018-03-13 02:00 | NUR ---
RN NOTES Started Tobramycin 100mg as ordered with no A/R noted. Continues with bloody urine. V/S WNL. Will continue to monitor.
[2018-03-13] MEDS ORDERED: TOBRAMYCIN 80 MG in IV NS 0.9% 100 ML INH SCH (02:30)
[2018-03-13] MEDS: BACLOFEN (10 MG) 10 MG TABLET GT SCH ×3 (05:45→20:47)
[2018-03-13] MEDS: SIMETHICONE SUSP 40 MG/0.6 ML BOTTLE PO SCH ×3 (05:45→20:47)
[2018-03-13] MEDS: LEVOTHYROXINE SODIUM 125 MCG TABLET GT SCH (05:46)
[2018-03-13] MEDS: NEPRO 1,000 ML BOTTLE GT PRN (05:46)
[2018-03-13] MEDS: GLYCOPYRROLATE 1 MG TABLET GT SCH ×4 (05:46→23:27)
[2018-03-13 07:46] VITALS: BP 109/53
--- NOTE | 2018-03-13 09:10 | NUR ---
Obtained a follow-up CBC from Dr. Paniagua. Resident has 2 units of PRBC on Sunday 03/11 due to Hbg 5.2. informed.
[2018-03-13] MEDS: OMEPRAZOLE 10 MG CAPSULE.DR GT SCH (09:14)
[2018-03-13] MEDS: POLYETHYLENE GLYCOL 3350 17 GM POWD.PACK GT SCH (09:14)
[2018-03-13] MEDS: POLYVINYL ALCOHOL 15 ML BOTTLE EACHEYE SCH ×4 (09:14→20:47)
[2018-03-13] MEDS: ZINC OXIDE 30 GM TUBE TP SCH ×6 (09:14→20:47)
[2018-03-13] MEDS: PHENAZOPYRIDINE HCL 200 MG TABLET GT SCH (09:14)
[2018-03-13] MEDS: AMIODARONE HCL 200 MG TABLET GT SCH (09:14)
[2018-03-13] MEDS: HYDROGEN PEROXIDE 480 ML BOTTLE TP SCH ×2 (09:14→20:47)
[2018-03-13] MEDS: ACIDOPHILUS/BULGARICUS 1 EACH TAB.CHEW GT SCH (09:14)
--- NOTE | 2018-03-13 09:44 | NUR ---
Per charge nurse, resident's wants to meet with Dr. Paniagua. Dr. Paniagua notes he is available to speak with her today at 4pm. Per resident's , this is okay. They will meet each other in the subacute unit. Charge nurse informed.
[2018-03-13 12:00] LABS: BASOPHILS % (AUTO) 0.2 % (0.0-2.0); EOSINOPHILS % (AUTO) 2.1 % (0.0-6.0); HEMATOCRIT 21 % (39-51); HEMOGLOBIN 7.1 g/dL (13.5-17.5); LYMPHOCYTES # (AUTO) 1.8 /CMM (0.8-4.8); LYMPHOCYTES % (AUTO) 8.7 % (20.0-44.0); MEAN CORPUSCULAR HEMOGLOBIN 28 PG (26.0-33.0); MEAN CORPUSCULAR HGB CONC 33 g/dl (31.0-36.0); MEAN CORPUSCULAR VOLUME 83 fL (80-96); MONOCYTES # (AUTO) 1.9 /CMM (0.1-1.30); MONOCYTES % (AUTO) 9.3 % (2.0-12.0); NEUTROPHILS # (AUTO) 16.2 /CMM (1.8-8.9); NEUTROPHILS % (AUTO) 79.7 % (43.0-81.0); PLATELET COUNT (AUTO) 380 /CMM (150-450); RDW COEFFICIENT OF VARIATION 18.5 (11.5-15.0); RED BLOOD CELL COUNT(AUTO) 2.58 MIL/uL (4.5-6.0); WHITE BLOOD COUNT (AUTO) 20.3 K/uL (4.3-11.0)
[2018-03-13 13:27] LABS: CALCIUM, SERUM 7.8 mg/dL (8.5-10.1); CREATININE 4.1 mg/dL (0.6-1.3); POTASSIUM 4.3 mmol/L (3.5-5.1)
--- NOTE | 2018-03-13 13:48 | NUR ---
PT JENI'D ON MECHANICAL VENT. TXS GIVEN AND NO ADVERSE REACTION NOTED. SX DONE T/O SHIFT. PT JENI PATENT AND SECURE. AMBU BAG AT BEDSIDE. VENT PLUGGED INTO RED OUTLET. ALARMS ARE ON AND AUDIBLE. WILL CONTINUE TO MONITOR. Addendum: 03/13/18 at 1349 by ZORAIDA COLINDRES RT Amended: Links added.
--- NOTE | 2018-03-13 15:10 | NUR ---
Notified Dr. Paniagua of CBC result 03/13/18 Hgb 7.1, Hct 21. and BMP, BUN 90, Creat 4.1. Awaiting for orders.
--- NOTE | 2018-03-13 16:41 | NUR ---
Dr. Paniagua met with resident's . said that will keep family's request for DNR, no transfer to acute hospital and no dialysis. MD ordered to repeat CBC on Sunday, he said nothing to be done with elevate BUN 90, Creat 4.1. Mrs. Bradley aware of new order. Order carried out.
[2018-03-13 20:23] VITALS: BP 95/58
[2018-03-13] MEDS: DOCUSATE SODIUM LIQ 100 MG/10 ML UDC GT SCH (20:47)
[2018-03-13] MEDS: ASCORBIC ACID 500 MG TABLET GT SCH (20:47)
[2018-03-13] MEDS: MULTIVIT, IRON, MIN NO. 8, FA 1 TAB GT SCH (20:47)
[2018-03-13] MEDS: FINASTERIDE (5 MG) 5 MG TABLET GT SCH (20:47)
[2018-03-13] MEDS: SENNOSIDES 8.6 MG TABLET GT SCH (21:59)
[2018-03-14] MEDS: AMINOCAPROIC ACID 500 MG TABLET GT SCH ×6 (00:52→21:00)
[2018-03-14] MEDS: IPRATROPIUM NEB FS 0.5 MG/2.5 ML AMPUL.NEB NEB SCH ×4 (01:36→20:11)
[2018-03-14] MEDS: ALBUTEROL FS 2.5 MG/3 ML VIAL.NEB NEB SCH ×4 (01:36→20:11)
[2018-03-14] MEDS ORDERED: TOBRAMYCIN 100 MG in IV D5W 50 ML IV SCH (02:00)
[2018-03-14] MEDS: GLYCOPYRROLATE 1 MG TABLET GT SCH ×3 (05:41→17:12)
[2018-03-14] MEDS: BACLOFEN (10 MG) 10 MG TABLET GT SCH ×3 (05:41→21:00)
[2018-03-14] MEDS: LEVOTHYROXINE SODIUM 125 MCG TABLET GT SCH (05:41)
[2018-03-14] MEDS: SIMETHICONE SUSP 40 MG/0.6 ML BOTTLE PO SCH ×3 (05:41→21:00)
--- NOTE | 2018-03-14 05:49 | NUR ---
Pt still on continuos bladder irrigation with NS,noted with leaking,still with gross hematuria.Pt noted with facial grimacing and increase respiration.Reposition and [place] given via gt given as ordered.Will continue to monitor.
[2018-03-14] MEDS: HYDROCODONE/APAP 5/325MG 1 EACH TABLET GT PRN ×3 (06:02→23:27)
[2018-03-14] MEDS: NEPRO 1,000 ML BOTTLE GT PRN (06:03)
[2018-03-14 08:03] VITALS: BP 130/65
[2018-03-14] MEDS: POLYVINYL ALCOHOL 15 ML BOTTLE EACHEYE SCH ×4 (09:00→21:00)
[2018-03-14] MEDS: ACIDOPHILUS/BULGARICUS 1 EACH TAB.CHEW GT SCH (09:01)
[2018-03-14] MEDS: AMIODARONE HCL 200 MG TABLET GT SCH (09:01)
[2018-03-14] MEDS: POLYETHYLENE GLYCOL 3350 17 GM POWD.PACK GT SCH (09:01)
[2018-03-14] MEDS: OMEPRAZOLE 10 MG CAPSULE.DR GT SCH (09:01)
[2018-03-14] MEDS: PHENAZOPYRIDINE HCL 200 MG TABLET GT SCH (09:01)
[2018-03-14] MEDS: HYDROGEN PEROXIDE 480 ML BOTTLE TP SCH ×2 (09:01→21:00)
[2018-03-14] MEDS: ZINC OXIDE 30 GM TUBE TP SCH ×6 (09:01→21:01)
--- NOTE | 2018-03-14 09:20 | NUR ---
Notified Dr. Powell that FC is by passing and per report from the onion topper patient's RR going up with facial grimacing is noted when hand irrigating victoria catheter. Dr. Powell said to hand irrigate it again and if it doesn't work, may change FC with a bigger Fr. like 26 or 28.
--- NOTE | 2018-03-14 11:18 | NUR ---
Hand irrigated FC with normal saline, after irrigating it with approx 500 ml, a lot of blood cloots obtain, however this did not last. After doing another round of hand irrigation, encountered resistance. Removed existing FC and attempted to insert another FC Fr. 26, but unable to advance it to the patient's bladder. Dr. Powell was notified and was told to leave it for now. He said that he may or may not be able to come. Dr. Paniagua notified regarding difficulty inserting FC. Awaiting for MD's return call for the next step. Bladder slightly distended. Meanwhile FC left inserted patient's genital but balloon not inflated, tape applied to secure the FC. Draining small amount of urine with hematuria. Continuous bladder irrigation running slow. Nursing traffic maintenance supervisor notified.
--- NOTE | 2018-03-14 13:15 | NUR ---
Received a message from Dr. Paniagua to inform Dr. Baljinder Reeder. Dr. Reeder notified.
--- NOTE | 2018-03-14 13:45 | NUR ---
Dr. Reeder requested to prepare urology tray, Fr [address] catheter at bedside. He was made aware that 3 way catheter cudet is not available but a regular catheter Fr 24 or 26 is available. He said that he will come up to change it.
--- NOTE | 2018-03-14 14:15 | NUR ---
Dr. Powell, urologist came and reinsert a new 3 way FC Fr 26 without any difficulty. hand irrigated FC with NS, obtain significant amount of blood clots. Dr. Baljinder Reeder also came while Dr. Powell at bedside hand irrigating FC. Patient tolerated procedure, no episode of SOB, HOB elevated during entire procedure, Current vent setting well tolerated. Dr. Powell stopped irrigating when no visible clots were aspirated, output pinkish in color. Connected back to continuous bladder irrigation of NS draining pinkish in color. notified of above. Appreciated the call.
[2018-03-14] MEDS: METOCLOPRAMIDE HCL 10 MG TABLET GT PRN (17:12)
[2018-03-14 20:30] VITALS: BP 120/64
[2018-03-14] MEDS: FINASTERIDE (5 MG) 5 MG TABLET GT SCH (20:54)
[2018-03-14] MEDS: DOCUSATE SODIUM LIQ 100 MG/10 ML UDC GT SCH (21:00)
[2018-03-14] MEDS: MULTIVIT, IRON, MIN NO. 8, FA 1 TAB GT SCH (21:00)
[2018-03-14] MEDS: ASCORBIC ACID 500 MG TABLET GT SCH (21:00)
[2018-03-14] MEDS: SENNOSIDES 8.6 MG TABLET GT SCH (21:01)
[2018-03-15] MEDS: GLYCOPYRROLATE 1 MG TABLET GT SCH ×4 (00:21→18:15)
[2018-03-15] MEDS: AMINOCAPROIC ACID 500 MG TABLET GT SCH ×6 (00:21→20:29)
[2018-03-15] MEDS: TOBRAMYCIN 100 MG in IV D5W 50 ML IV SCH (02:00)
[2018-03-15] MEDS: IPRATROPIUM NEB FS 0.5 MG/2.5 ML AMPUL.NEB NEB SCH ×4 (02:08→19:42)
[2018-03-15] MEDS: ALBUTEROL FS 2.5 MG/3 ML VIAL.NEB NEB SCH ×4 (02:08→19:42)
[2018-03-15] MEDS: BACLOFEN (10 MG) 10 MG TABLET GT SCH ×3 (05:16→20:29)
[2018-03-15] MEDS: LEVOTHYROXINE SODIUM 125 MCG TABLET GT SCH (05:17)
[2018-03-15] MEDS: SIMETHICONE SUSP 40 MG/0.6 ML BOTTLE PO SCH ×3 (05:17→20:29)
[2018-03-15] MEDS: HYDROCODONE/APAP 5/325MG 1 EACH TABLET GT PRN ×2 (05:17→11:11)
[2018-03-15] MEDS: NEPRO 1,000 ML BOTTLE GT PRN (06:25)
--- NOTE | 2018-03-15 06:34 | NUR ---
Pt given Mcdaniel x 2 during the shift for pain,facial grimacing,increase respiration and SOB noted.Continuos bladder iirigation with pinkish output noted,no clots seen.Hand irrigation done x 3 to prevent clots.latest Bp 116/62,Hr 90.Kept clean and comfortable.All needs attended.Will endorse.
[2018-03-15 06:52] LABS: BASOPHILS % (AUTO) 0.1 % (0.0-2.0); EOSINOPHILS % (AUTO) 1.6 % (0.0-6.0); LYMPHOCYTES # (AUTO) 0.8 /CMM (0.8-4.8); LYMPHOCYTES % (AUTO) 3.2 % (20.0-44.0); MEAN CORPUSCULAR HEMOGLOBIN 28 PG (26.0-33.0); MEAN CORPUSCULAR HGB CONC 33 g/dl (31.0-36.0); MEAN CORPUSCULAR VOLUME 83 fL (80-96); MONOCYTES # (AUTO) 1.7 /CMM (0.1-1.30); MONOCYTES % (AUTO) 6.9 % (2.0-12.0); NEUTROPHILS # (AUTO) 21.9 /CMM (1.8-8.9); NEUTROPHILS % (AUTO) 88.2 % (43.0-81.0); PLATELET COUNT (AUTO) 372 /CMM (150-450); RDW COEFFICIENT OF VARIATION 18.7 (11.5-15.0); RED BLOOD CELL COUNT(AUTO) 2.29 MIL/uL (4.5-6.0); WHITE BLOOD COUNT (AUTO) 24.9 K/uL (4.3-11.0)
[2018-03-15 07:03] LABS: HEMOGLOBIN 6.3 g/dL (13.5-17.5)
[2018-03-15 07:04] LABS: HEMATOCRIT 19 % (39-51)
--- NOTE | 2018-03-15 07:10 | NUR ---
Laboratory called and reported hgb 6.3 and hct 19,will endorse to notify
[2018-03-15 07:47] VITALS: BP_SYST 137; BP_SYST 94; BP_DIAS 48; BP_DIAS 74
--- NOTE | 2018-03-15 08:30 | NUR ---
Notified Dr. Paniagua, patient's Hbg 6.3, Hct 19, with new order to give 1 unit of PRBC. Order carried out. Telephone consent obtain from resident's Fanny Khan to transfuse 1 unit of PRBC, witnessed by 2 licensed nurses.
[2018-03-15 08:49] LABS: BAND % (MANUAL) 3 % (0.0-5.0); EOSINOPHILS % (MANUAL) 1 % (0-4); LYMPHOCYTES % (MANUAL) 2 % (16-48); MONOCYTES % (MANUAL) 7 % (0-11.0); NEUTROPHILS % (MANUAL) 87 (42-76)
[2018-03-15] MEDS: HYDROGEN PEROXIDE 480 ML BOTTLE TP SCH ×2 (09:00→20:29)
[2018-03-15] MEDS: ZINC OXIDE 30 GM TUBE TP SCH ×6 (09:00→20:29)
[2018-03-15] MEDS: POLYVINYL ALCOHOL 15 ML BOTTLE EACHEYE SCH ×4 (09:02→20:29)
[2018-03-15] MEDS: ACIDOPHILUS/BULGARICUS 1 EACH TAB.CHEW GT SCH (09:04)
[2018-03-15] MEDS: POLYETHYLENE GLYCOL 3350 17 GM POWD.PACK GT SCH (09:04)
[2018-03-15] MEDS: PHENAZOPYRIDINE HCL 200 MG TABLET GT SCH (09:04)
[2018-03-15] MEDS: OMEPRAZOLE 10 MG CAPSULE.DR GT SCH (09:04)
[2018-03-15] MEDS: AMIODARONE HCL 200 MG TABLET GT SCH (09:04)
[2018-03-15 11:38] VITALS: BP 128/69
[2018-03-15 12:00] VITALS: BP 113/64
[2018-03-15 14:00] VITALS: BP 132/79
[2018-03-15 15:17] VITALS: BP 146/76
[2018-03-15] MEDS: MORPHINE SULFATE INJ 2 MG/ML DISP.SYRIN IV PRN ×2 (15:44→21:57)
--- NOTE | 2018-03-15 15:52 | NUR ---
Notified Dr. Paniagua that patient has labored breathing, 20-24, current PRN medication [place] is not effective. New order given to give Morphine 2mg IV Q 4 hours PRN for severe pain. Mrs. Bradley notified. She said, "it is OK I want him to be comfortable". Morphine sulfate 2 mg. IV given. Blood transfusion 1 unit completed, no reaction.
[2018-03-15] MEDS: FINASTERIDE (5 MG) 5 MG TABLET GT SCH (20:29)
[2018-03-15] MEDS: DOCUSATE SODIUM LIQ 100 MG/10 ML UDC GT SCH (20:29)
[2018-03-15] MEDS: ASCORBIC ACID 500 MG TABLET GT SCH (20:29)
[2018-03-15] MEDS: MULTIVIT, IRON, MIN NO. 8, FA 1 TAB GT SCH (20:29)
--- NOTE | 2018-03-15 21:58 | NUR ---
Pt noted with facial grimacing ,increase respiration to 24,abdominal breathing.Repositioned not effective.Morphine 2mg IV given as ordered for severe pain.Will monitor closely.
[2018-03-15] MEDS: SENNOSIDES 8.6 MG TABLET GT SCH (22:27)
[2018-03-16] MEDS: AMINOCAPROIC ACID 500 MG TABLET GT SCH ×6 (00:04→21:15)
[2018-03-16] MEDS: GLYCOPYRROLATE 1 MG TABLET GT SCH ×4 (00:04→17:03)
[2018-03-16] MEDS: IPRATROPIUM NEB FS 0.5 MG/2.5 ML AMPUL.NEB NEB SCH ×4 (01:04→19:09)
[2018-03-16] MEDS: ALBUTEROL FS 2.5 MG/3 ML VIAL.NEB NEB SCH ×4 (01:04→19:09)
--- NOTE | 2018-03-16 01:48 | NUR ---
PT JENI'D ON MECHANICAL VENT. TXS GIVEN AND NO ADVERSE REACTION NOTED. SX DONE T/O SHIFT. PT JENI PATENT AND SECURE. AMBU BAG AT BEDSIDE. VENT PLUGGED INTO RED OUTLET. ALARMS ARE ON AND AUDIBLE. WILL CONTINUE TO MONITOR. Addendum: 03/16/18 at 0149 by ZORAIDA COLINDRES RT Amended: Links added.
[2018-03-16] MEDS: NEPRO 1,000 ML BOTTLE GT PRN (02:18)
[2018-03-16 03:27] VITALS: BP 97/53
[2018-03-16] MEDS: BACLOFEN (10 MG) 10 MG TABLET GT SCH ×3 (05:26→21:16)
[2018-03-16] MEDS: SIMETHICONE SUSP 40 MG/0.6 ML BOTTLE PO SCH ×3 (05:26→21:16)
[2018-03-16] MEDS: LEVOTHYROXINE SODIUM 125 MCG TABLET GT SCH (05:26)
[2018-03-16 07:33] VITALS: BP 115/58
[2018-03-16] MEDS: POLYVINYL ALCOHOL 15 ML BOTTLE EACHEYE SCH ×4 (09:01→21:15)
[2018-03-16] MEDS: POLYETHYLENE GLYCOL 3350 17 GM POWD.PACK GT SCH (09:05)
[2018-03-16] MEDS: AMIODARONE HCL 200 MG TABLET GT SCH (09:05)
[2018-03-16] MEDS: ACIDOPHILUS/BULGARICUS 1 EACH TAB.CHEW GT SCH (09:05)
[2018-03-16] MEDS: OMEPRAZOLE 10 MG CAPSULE.DR GT SCH (09:05)
[2018-03-16] MEDS: ZINC OXIDE 30 GM TUBE TP SCH ×6 (09:06→21:16)
[2018-03-16] MEDS: HYDROGEN PEROXIDE 480 ML BOTTLE TP SCH ×2 (09:06→21:16)
[2018-03-16] MEDS: PHENAZOPYRIDINE HCL 200 MG TABLET GT SCH (09:06)
[2018-03-16] MEDS: MORPHINE SULFATE INJ 2 MG/ML DISP.SYRIN IV PRN ×2 (09:25→21:30)
[2018-03-16] MEDS: FINASTERIDE (5 MG) 5 MG TABLET GT SCH (20:00)
[2018-03-16] MEDS: DOCUSATE SODIUM LIQ 100 MG/10 ML UDC GT SCH (21:15)
[2018-03-16] MEDS: SENNOSIDES 8.6 MG TABLET GT SCH (21:16)
[2018-03-16] MEDS: ASCORBIC ACID 500 MG TABLET GT SCH (21:16)
[2018-03-16] MEDS: MULTIVIT, IRON, MIN NO. 8, FA 1 TAB GT SCH (21:16)
--- NOTE | 2018-03-16 21:30 | NUR ---
Pt noted with facial grimacing ,increase respiration to 23,abdominal breathing. requested to give morphine for pain. Morphine 2mg IV given as ordered for severe pain.Will continue to monitor.
--- NOTE | 2018-03-16 22:30 | NUR ---
Morphine effective. patient sleeping. no respiratory distress noted. will continue to monitor
[2018-03-17] MEDS: GLYCOPYRROLATE 1 MG TABLET GT SCH ×4 (00:30→17:46)
[2018-03-17] MEDS: AMINOCAPROIC ACID 500 MG TABLET GT SCH ×6 (00:30→21:37)
[2018-03-17 01:10] VITALS: BP 114/46
[2018-03-17] MEDS: IPRATROPIUM NEB FS 0.5 MG/2.5 ML AMPUL.NEB NEB SCH ×4 (01:51→20:35)
[2018-03-17] MEDS: ALBUTEROL FS 2.5 MG/3 ML VIAL.NEB NEB SCH ×4 (01:51→20:35)
[2018-03-17] MEDS: TOBRAMYCIN 100 MG in IV D5W 50 ML IV SCH (02:00)
[2018-03-17] MEDS: LEVOTHYROXINE SODIUM 125 MCG TABLET GT SCH (05:08)
[2018-03-17] MEDS: SIMETHICONE SUSP 40 MG/0.6 ML BOTTLE PO SCH ×3 (05:08→21:37)
[2018-03-17] MEDS: BACLOFEN (10 MG) 10 MG TABLET GT SCH ×3 (05:08→21:37)
[2018-03-17] MEDS: NEPRO 1,000 ML BOTTLE GT PRN (06:27)
--- NOTE | 2018-03-17 06:30 | NUR ---
patient bed awake. patient remained on continues victoria irrigation, draining red fluids with cloths and sediments noted. will endorse to morning shift.
[2018-03-17] MEDS: ACIDOPHILUS/BULGARICUS 1 EACH TAB.CHEW GT SCH (09:06)
[2018-03-17] MEDS: AMIODARONE HCL 200 MG TABLET GT SCH (09:06)
[2018-03-17] MEDS: PHENAZOPYRIDINE HCL 200 MG TABLET GT SCH (09:06)
[2018-03-17] MEDS: POLYVINYL ALCOHOL 15 ML BOTTLE EACHEYE SCH ×4 (09:06→21:37)
[2018-03-17] MEDS: HYDROGEN PEROXIDE 480 ML BOTTLE TP SCH ×2 (09:06→21:37)
[2018-03-17] MEDS: POLYETHYLENE GLYCOL 3350 17 GM POWD.PACK GT SCH (09:06)
[2018-03-17] MEDS: OMEPRAZOLE 10 MG CAPSULE.DR GT SCH (09:06)
[2018-03-17] MEDS: ZINC OXIDE 30 GM TUBE TP SCH ×6 (09:07→21:37)
[2018-03-17 09:19] VITALS: BP 121/68
[2018-03-17] MEDS: ERGOCALCIFEROL (VITAMIN D2) 8,000 UNIT/ML GT SCH (09:54)
--- NOTE | 2018-03-17 10:00 | NUR ---
Resident at bedside, she stated that she will update PIC tomorrow for no blood transfusion. Resident's siblings also visited. Patient continue on continuos bladder irrigation. Output from his FC light red/ pinkish in color but with blood clots. Hand irrigation with NS done q 3 to 4 hours PRN blood clots. Bladder irrigation draining well.
--- NOTE | 2018-03-17 14:45 | NUR ---
Notified [facility] pharmacistNeeru that Tobramycin trough was not done, she said to draw it before the 4th dose on 03/19/18. Order noted and carried out.
--- NOTE | 2018-03-17 17:00 | NUR ---
Resident's son and daughter together with their cousins visited patient. Patient in no s/s of distress, appears very calm, no facial grimacing.
[2018-03-17 19:50] VITALS: BP 105/55
[2018-03-17] MEDS: FINASTERIDE (5 MG) 5 MG TABLET GT SCH (20:00)
[2018-03-17] MEDS: SENNOSIDES 8.6 MG TABLET GT SCH (21:37)
[2018-03-17] MEDS: DOCUSATE SODIUM LIQ 100 MG/10 ML UDC GT SCH (21:37)
[2018-03-17] MEDS: MULTIVIT, IRON, MIN NO. 8, FA 1 TAB GT SCH (21:37)
[2018-03-17] MEDS: ASCORBIC ACID 500 MG TABLET GT SCH (21:37)
[2018-03-18] MEDS: AMINOCAPROIC ACID 500 MG TABLET GT SCH ×6 (01:00→20:24)
[2018-03-18] MEDS: IPRATROPIUM NEB FS 0.5 MG/2.5 ML AMPUL.NEB NEB SCH ×4 (02:18→20:18)
[2018-03-18] MEDS: ALBUTEROL FS 2.5 MG/3 ML VIAL.NEB NEB SCH ×4 (02:18→20:18)
[2018-03-18] MEDS: BACLOFEN (10 MG) 10 MG TABLET GT SCH ×3 (05:41→20:24)
[2018-03-18] MEDS: LEVOTHYROXINE SODIUM 125 MCG TABLET GT SCH (05:41)
[2018-03-18] MEDS: SIMETHICONE SUSP 40 MG/0.6 ML BOTTLE PO SCH ×3 (05:41→20:24)
[2018-03-18] MEDS: GLYCOPYRROLATE 1 MG TABLET GT SCH ×5 (05:41→23:13)
[2018-03-18] MEDS: BISACODYL SUPP (10 MG) 10 MG/SUPP.RECT SUPP.RECT RC PRN (06:49)
[2018-03-18 07:49] VITALS: BP 147/77
[2018-03-18] MEDS: ZINC OXIDE 30 GM TUBE TP SCH ×6 (09:00→20:25)
[2018-03-18] MEDS: HYDROGEN PEROXIDE 480 ML BOTTLE TP SCH ×2 (09:00→20:25)
[2018-03-18] MEDS: POLYVINYL ALCOHOL 15 ML BOTTLE EACHEYE SCH ×4 (09:18→20:24)
[2018-03-18] MEDS: ACIDOPHILUS/BULGARICUS 1 EACH TAB.CHEW GT SCH (09:18)
[2018-03-18] MEDS: AMIODARONE HCL 200 MG TABLET GT SCH (09:18)
[2018-03-18] MEDS: PHENAZOPYRIDINE HCL 200 MG TABLET GT SCH (09:18)
[2018-03-18] MEDS: POLYETHYLENE GLYCOL 3350 17 GM POWD.PACK GT SCH (09:18)
[2018-03-18] MEDS: OMEPRAZOLE 10 MG CAPSULE.DR GT SCH (09:18)
[2018-03-18] MEDS: NEPRO 1,000 ML BOTTLE GT PRN (12:00)
--- NOTE | 2018-03-18 14:33 | NUR ---
SW was informed by the charge nurse that the resident's no longer wants blood transfusions. IGOR printed Documentation of Preferred Intensity of Care in order for the to update care that she wants (and doesn't wan) for the resident. IGOR provided the form to the charge nurse and will have resident's complete and sign it when she visits.
[2018-03-18] MEDS ORDERED: diphenhydrAMINE HCL ELIX 25 MG/10 ML UDC GT PRN (19:30)
[2018-03-18 20:16] VITALS: BP 94/49
[2018-03-18] MEDS: FINASTERIDE (5 MG) 5 MG TABLET GT SCH (20:24)
[2018-03-18] MEDS: DOCUSATE SODIUM LIQ 100 MG/10 ML UDC GT SCH (20:24)
[2018-03-18] MEDS: ASCORBIC ACID 500 MG TABLET GT SCH (20:24)
[2018-03-18] MEDS: MULTIVIT, IRON, MIN NO. 8, FA 1 TAB GT SCH (20:24)
--- NOTE | 2018-03-18 20:30 | NUR ---
RN NOTES Received new order from [facility] to d/c tobramycin 100mg IV, start augmentin 250mg via gt, claritin 10mg via gt daily and benadryl 25mg via gt q6hr prn pruritis/allergic rhinitus, noted and carried out. at bedside made aware of new orders.
[2018-03-18] MEDS: AMOX/CLAVULANATE 250 MG TABLET GT SCH (21:45)
[2018-03-18] MEDS: SENNOSIDES 8.6 MG TABLET GT SCH (21:45)
[2018-03-19] MEDS: AMINOCAPROIC ACID 500 MG TABLET GT SCH ×6 (00:55→20:23)
[2018-03-19] MEDS: ALBUTEROL FS 2.5 MG/3 ML VIAL.NEB NEB SCH ×4 (01:20→19:51)
[2018-03-19] MEDS: IPRATROPIUM NEB FS 0.5 MG/2.5 ML AMPUL.NEB NEB SCH ×4 (01:20→19:51)
[2018-03-19] MEDS: BACLOFEN (10 MG) 10 MG TABLET GT SCH ×3 (05:36→20:23)
[2018-03-19] MEDS: LEVOTHYROXINE SODIUM 125 MCG TABLET GT SCH (05:36)
[2018-03-19] MEDS: SIMETHICONE SUSP 40 MG/0.6 ML BOTTLE PO SCH ×3 (05:36→20:23)
[2018-03-19] MEDS: GLYCOPYRROLATE 1 MG TABLET GT SCH ×4 (05:36→23:15)
[2018-03-19 07:31] VITALS: BP 72/38
[2018-03-19] MEDS: POLYVINYL ALCOHOL 15 ML BOTTLE EACHEYE SCH ×4 (08:55→20:23)
[2018-03-19] MEDS: ACIDOPHILUS/BULGARICUS 1 EACH TAB.CHEW GT SCH (08:58)
[2018-03-19] MEDS: AMIODARONE HCL 200 MG TABLET GT SCH (08:58)
[2018-03-19] MEDS: POLYETHYLENE GLYCOL 3350 17 GM POWD.PACK GT SCH (08:59)
[2018-03-19] MEDS: OMEPRAZOLE 10 MG CAPSULE.DR GT SCH (08:59)
[2018-03-19] MEDS: PHENAZOPYRIDINE HCL 200 MG TABLET GT SCH (09:00)
[2018-03-19] MEDS: AMOX/CLAVULANATE 250 MG TABLET GT SCH ×2 (09:00→20:23)
[2018-03-19] MEDS: ZINC OXIDE 30 GM TUBE TP SCH ×6 (09:00→20:23)
[2018-03-19] MEDS: HYDROGEN PEROXIDE 480 ML BOTTLE TP SCH ×2 (09:00→20:23)
[2018-03-19] MEDS: LORATADINE 10 MG TABLET GT SCH (09:01)
--- NOTE | 2018-03-19 10:15 | NUR ---
Notified Dr. Reeder that pt's blood pressure is 73/58, pt DNR, no blood transfusion, no transfer to acute hospital, no dialysis, but pt's checked to use IV fluids on the preferred intensity of care. Dr. Reeder ordered to give NS 1500 mL IV bolus. Notified pt's .
--- NOTE | 2018-03-19 11:30 | NUR ---
Pt's blood pressure 131/62 HR 68. Infused only 1 L of NS instead of 1.[address] Reeder.
[2018-03-19] MEDS: NEPRO 1,000 ML BOTTLE GT PRN (12:38)
[2018-03-19] MEDS ORDERED: NS 0.9% IV ONE (13:30)
--- NOTE | 2018-03-19 13:30 | NUR ---
Informed pt's that there is an order to do urine culture for the pt. She said she is undecided whether it should be done or not and wanted to ask Dr. David's opinion. Per Dr. David, if pt's just wants to keep the pt comfortable, then no, but if she still wants to treat the issues, then yes.
[2018-03-19] MEDS: FINASTERIDE (5 MG) 5 MG TABLET GT SCH (20:22)
[2018-03-19] MEDS: ASCORBIC ACID 500 MG TABLET GT SCH (20:23)
[2018-03-19] MEDS: DOCUSATE SODIUM LIQ 100 MG/10 ML UDC GT SCH (20:23)
[2018-03-19] MEDS: MULTIVIT, IRON, MIN NO. 8, FA 1 TAB GT SCH (20:23)
[2018-03-19 20:28] VITALS: BP 94/57
[2018-03-19] MEDS: SENNOSIDES 8.6 MG TABLET GT SCH (21:49)
[2018-03-20] MEDS: AMINOCAPROIC ACID 500 MG TABLET GT SCH ×6 (00:07→20:20)
[2018-03-20] MEDS: ALBUTEROL FS 2.5 MG/3 ML VIAL.NEB NEB SCH ×4 (01:24→19:47)
[2018-03-20] MEDS: IPRATROPIUM NEB FS 0.5 MG/2.5 ML AMPUL.NEB NEB SCH ×4 (01:24→19:47)
[2018-03-20] MEDS: GLYCOPYRROLATE 1 MG TABLET GT SCH ×4 (05:36→23:12)
[2018-03-20] MEDS: BACLOFEN (10 MG) 10 MG TABLET GT SCH ×3 (05:36→20:20)
[2018-03-20] MEDS: SIMETHICONE SUSP 40 MG/0.6 ML BOTTLE PO SCH ×3 (05:36→20:21)
[2018-03-20] MEDS: LEVOTHYROXINE SODIUM 125 MCG TABLET GT SCH (05:37)
[2018-03-20 07:34] VITALS: BP 99/47
[2018-03-20] MEDS: PHENAZOPYRIDINE HCL 200 MG TABLET GT SCH (09:39)
[2018-03-20] MEDS: OMEPRAZOLE 10 MG CAPSULE.DR GT SCH (09:39)
[2018-03-20] MEDS: ACIDOPHILUS/BULGARICUS 1 EACH TAB.CHEW GT SCH (09:39)
[2018-03-20] MEDS: ZINC OXIDE 30 GM TUBE TP SCH ×6 (09:39→20:22)
[2018-03-20] MEDS: HYDROGEN PEROXIDE 480 ML BOTTLE TP SCH ×2 (09:39→20:21)
[2018-03-20] MEDS: POLYVINYL ALCOHOL 15 ML BOTTLE EACHEYE SCH ×4 (09:39→20:20)
[2018-03-20] MEDS: AMOX/CLAVULANATE 250 MG TABLET GT SCH ×2 (09:39→20:20)
[2018-03-20] MEDS: POLYETHYLENE GLYCOL 3350 17 GM POWD.PACK GT SCH (09:39)
[2018-03-20] MEDS: LORATADINE 10 MG TABLET GT SCH (09:46)
[2018-03-20] MEDS: AMIODARONE HCL 200 MG TABLET GT SCH (09:47)
--- NOTE | 2018-03-20 11:00 | NUR ---
Endorsed by AM charge nurse that Dr. David wants to culture urine but undecided yesterday. is visiting together with her friends. Asked her one more time if she wants to reculture the urine, she said that she really just want him to be comfortable. At this time, patient is afebrile at 98.9, not in acute distress. Resident's face looks calm no facial grimacing. Bilateral arms flaccid where it used to be stiff and contracted. On continuous bladder irrigation of NS. Hand irrigation done to flush blood clots from the bladder. Urine output draining well pinkish to light red in color. Respected family's wishes.
[2018-03-20 20:09] VITALS: BP 111/76
[2018-03-20] MEDS: FINASTERIDE (5 MG) 5 MG TABLET GT SCH (20:20)
[2018-03-20] MEDS: DOCUSATE SODIUM LIQ 100 MG/10 ML UDC GT SCH (20:20)
[2018-03-20] MEDS: MULTIVIT, IRON, MIN NO. 8, FA 1 TAB GT SCH (20:20)
[2018-03-20] MEDS: ASCORBIC ACID 500 MG TABLET GT SCH (20:21)
[2018-03-20] MEDS: SENNOSIDES 8.6 MG TABLET GT SCH (21:51)
[2018-03-21] MEDS: AMINOCAPROIC ACID 500 MG TABLET GT SCH ×6 (00:54→21:44)
[2018-03-21] MEDS: ALBUTEROL FS 2.5 MG/3 ML VIAL.NEB NEB SCH ×4 (02:35→20:14)
[2018-03-21] MEDS: IPRATROPIUM NEB FS 0.5 MG/2.5 ML AMPUL.NEB NEB SCH ×4 (02:35→20:14)
[2018-03-21] MEDS: BACLOFEN (10 MG) 10 MG TABLET GT SCH ×3 (05:30→21:44)
[2018-03-21] MEDS: GLYCOPYRROLATE 1 MG TABLET GT SCH ×4 (05:30→23:45)
[2018-03-21] MEDS: LEVOTHYROXINE SODIUM 125 MCG TABLET GT SCH (05:30)
[2018-03-21] MEDS: SIMETHICONE SUSP 40 MG/0.6 ML BOTTLE PO SCH ×3 (05:30→21:44)
--- NOTE | 2018-03-21 06:10 | NUR ---
PT REC'D TRACHED VIA [facility] VENT SETTINGS CHARTED. NO RESP DISTRESS NOTED AND NO CHANGES MADE THROUGHOUT SHIFT. SX'D THICK YELLOW LARGE AMT OF SECRETIONS. TRACH PATENT AND MIDLINE. ALARMS ARE SET AND AUDIBLE. VENT PLUGGED INTO RED OUTLET. AMBU BAG BEDSIDE. WILL CONTINUE TO MONITOR Addendum: 03/21/18 at 0611 by KERA DAAM RT Amended: Links added.
--- NOTE | 2018-03-21 06:18 | NUR ---
Pt remain comfortable during the night or distress noted.No signs of pain noted.Pt on bladder irrigation continously with NS,with reddish output.Kept pt comfortable and clean at all times.will continue to monitor.
[2018-03-21] MEDS: ZINC OXIDE 30 GM TUBE TP SCH ×7 (07:11→21:44)
[2018-03-21 07:41] VITALS: BP 121/65
[2018-03-21] MEDS: LORATADINE 10 MG TABLET GT SCH (09:00)
[2018-03-21] MEDS: POLYVINYL ALCOHOL 15 ML BOTTLE EACHEYE SCH ×4 (09:55→21:44)
[2018-03-21] MEDS: AMOX/CLAVULANATE 250 MG TABLET GT SCH ×2 (09:55→21:44)
[2018-03-21] MEDS: HYDROGEN PEROXIDE 480 ML BOTTLE TP SCH ×2 (09:56→21:44)
[2018-03-21] MEDS: PHENAZOPYRIDINE HCL 200 MG TABLET GT SCH (09:56)
[2018-03-21] MEDS: POLYETHYLENE GLYCOL 3350 17 GM POWD.PACK GT SCH (09:56)
[2018-03-21] MEDS: AMIODARONE HCL 200 MG TABLET GT SCH (09:56)
[2018-03-21] MEDS: ACIDOPHILUS/BULGARICUS 1 EACH TAB.CHEW GT SCH (09:56)
[2018-03-21] MEDS: OMEPRAZOLE 10 MG CAPSULE.DR GT SCH (09:56)
[2018-03-21] MEDS: FINASTERIDE (5 MG) 5 MG TABLET GT SCH (20:00)
[2018-03-21] MEDS: DOCUSATE SODIUM LIQ 100 MG/10 ML UDC GT SCH (21:44)
[2018-03-21] MEDS: SENNOSIDES 8.6 MG TABLET GT SCH (21:44)
[2018-03-21] MEDS: ASCORBIC ACID 500 MG TABLET GT SCH (21:44)
[2018-03-21] MEDS: MULTIVIT, IRON, MIN NO. 8, FA 1 TAB GT SCH (21:44)
[2018-03-21 23:02] VITALS: BP 96/56
[2018-03-22] MEDS: IPRATROPIUM NEB FS 0.5 MG/2.5 ML AMPUL.NEB NEB SCH ×4 (01:53→19:35)
[2018-03-22] MEDS: ALBUTEROL FS 2.5 MG/3 ML VIAL.NEB NEB SCH ×4 (01:53→19:35)
[2018-03-22] MEDS: AMINOCAPROIC ACID 500 MG TABLET GT SCH ×6 (01:57→21:39)
[2018-03-22] MEDS: BACLOFEN (10 MG) 10 MG TABLET GT SCH ×3 (05:25→21:39)
[2018-03-22] MEDS: LEVOTHYROXINE SODIUM 125 MCG TABLET GT SCH (05:25)
[2018-03-22] MEDS: GLYCOPYRROLATE 1 MG TABLET GT SCH ×3 (05:25→17:31)
[2018-03-22] MEDS: SIMETHICONE SUSP 40 MG/0.6 ML BOTTLE PO SCH ×3 (05:25→21:39)
[2018-03-22 07:38] VITALS: BP 95/58
[2018-03-22] MEDS: LORATADINE 10 MG TABLET GT SCH (09:35)
[2018-03-22] MEDS: ACIDOPHILUS/BULGARICUS 1 EACH TAB.CHEW GT SCH (09:35)
[2018-03-22] MEDS: OMEPRAZOLE 10 MG CAPSULE.DR GT SCH (09:35)
[2018-03-22] MEDS: POLYETHYLENE GLYCOL 3350 17 GM POWD.PACK GT SCH (09:35)
[2018-03-22] MEDS: AMIODARONE HCL 200 MG TABLET GT SCH (09:35)
[2018-03-22] MEDS: ZINC OXIDE 30 GM TUBE TP SCH ×6 (09:35→21:40)
[2018-03-22] MEDS: AMOX/CLAVULANATE 250 MG TABLET GT SCH ×2 (09:35→21:39)
[2018-03-22] MEDS: PHENAZOPYRIDINE HCL 200 MG TABLET GT SCH (09:35)
[2018-03-22] MEDS: HYDROGEN PEROXIDE 480 ML BOTTLE TP SCH ×2 (09:35→21:39)
[2018-03-22] MEDS: POLYVINYL ALCOHOL 15 ML BOTTLE EACHEYE SCH ×4 (09:35→21:39)
--- NOTE | 2018-03-22 16:05 | NUR ---
PATIENT WAS RECEIVED ON CONTINUOUS VENT SUPPORT WITH NOTED VENT SETTINGS.ALARMS ON AND AUDIBLE. AMBUBAG AND SPARE TRACH AT BEDSIDE.PATIENT STABLE AND NO RESPIRATORY DISTRESS NOTED. WILL CONTINUE TO MONITOR Addendum: 03/22/18 at 1606 by PATRICK JIANG RT Amended: Links added.
[2018-03-22] MEDS: NEPRO 1,000 ML BOTTLE GT PRN (17:31)
[2018-03-22 20:00] VITALS: BP 97/54
[2018-03-22] MEDS: FINASTERIDE (5 MG) 5 MG TABLET GT SCH (20:00)
[2018-03-22] MEDS: MULTIVIT, IRON, MIN NO. 8, FA 1 TAB GT SCH (21:39)
[2018-03-22] MEDS: ASCORBIC ACID 500 MG TABLET GT SCH (21:39)
[2018-03-22] MEDS: DOCUSATE SODIUM LIQ 100 MG/10 ML UDC GT SCH (21:39)
[2018-03-22] MEDS: SENNOSIDES 8.6 MG TABLET GT SCH (21:42)
[2018-03-23] MEDS: AMINOCAPROIC ACID 500 MG TABLET GT SCH ×6 (00:20→21:00)
[2018-03-23] MEDS: GLYCOPYRROLATE 1 MG TABLET GT SCH ×4 (00:20→17:12)
[2018-03-23] MEDS: IPRATROPIUM NEB FS 0.5 MG/2.5 ML AMPUL.NEB NEB SCH ×4 (01:30→20:04)
[2018-03-23] MEDS: ALBUTEROL FS 2.5 MG/3 ML VIAL.NEB NEB SCH ×4 (01:30→20:04)
[2018-03-23] MEDS: BACLOFEN (10 MG) 10 MG TABLET GT SCH ×3 (05:30→20:11)
[2018-03-23] MEDS: SIMETHICONE SUSP 40 MG/0.6 ML BOTTLE PO SCH ×3 (05:30→21:00)
[2018-03-23] MEDS: LEVOTHYROXINE SODIUM 125 MCG TABLET GT SCH (05:30)
--- NOTE | 2018-03-23 06:14 | NUR ---
Pt stable condition,looks calm and comfortable,no signs of pain noted during the night.Bladder irrigation still continuos with pinkish to reddish output.Kept clean comfortable needs attended.
[2018-03-23 07:38] VITALS: BP 100/63
--- NOTE | 2018-03-23 08:17 | NUR ---
RT PATIENT REC'D TRACHED ON [facility] VENT WITH ORDERED SETTINGS RANJIT WELL. VENT ALARMS CHECKED + AUDIBLE. VENT PLUGGED INTO RED OUTLET. ALL VENT TUBING CONNECTIONS TIGHT AND IN PROPER POSITION. PATIENT TRACH CHECKED AND SECURE IN PROPER POSITION. CUFF PRESSURE CHECKED CERTIFIED MEDICAL TECHNICIAN ASSISTANT. AIRWAY SUCTIONED WITH SMALL/MODERATE AMOUNT OF PALE SEMITHICK SECRETIONS. B/S DIM COARSE. PATIENT APPEARS COMFORTABLE, NON RESPONSIVE TO VERBAL COMMANDS. NO SOB NOTED. AMBU BAG AND BACK UP TRACH AT HOB. CONT CURRENT PLAN OF RESPIRATORY CARE. Addendum: 03/23/18 at 1634 by ENID FOWLER RT Amended: Links added.
[2018-03-23] MEDS: POLYVINYL ALCOHOL 15 ML BOTTLE EACHEYE SCH ×4 (09:09→20:08)
[2018-03-23] MEDS: AMOX/CLAVULANATE 250 MG TABLET GT SCH ×2 (09:10→21:00)
[2018-03-23] MEDS: POLYETHYLENE GLYCOL 3350 17 GM POWD.PACK GT SCH (09:11)
[2018-03-23] MEDS: ACIDOPHILUS/BULGARICUS 1 EACH TAB.CHEW GT SCH (09:11)
[2018-03-23] MEDS: AMIODARONE HCL 200 MG TABLET GT SCH (09:11)
[2018-03-23] MEDS: OMEPRAZOLE 10 MG CAPSULE.DR GT SCH (09:12)
[2018-03-23] MEDS: PHENAZOPYRIDINE HCL 200 MG TABLET GT SCH (09:12)
[2018-03-23] MEDS: LORATADINE 10 MG TABLET GT SCH (09:14)
--- NOTE | 2018-03-23 10:30 | NUR ---
Pt's discussed about not wanting to do any lab work, no IV fluids or antibiotics in addition to no blood transfusion, dialysis and transfer to acute hospital. Discussed with Dr. Baljinder Reeder. signed new documentation of preferred intensity of care.
[2018-03-23] MEDS: HYDROGEN PEROXIDE 480 ML BOTTLE TP SCH ×2 (10:51→20:16)
[2018-03-23] MEDS: NYSTATIN TOP POWDER 15 GM BOTTLE TP SCH ×2 (10:51→20:16)
[2018-03-23] MEDS: ZINC OXIDE 30 GM TUBE TP SCH ×6 (10:52→20:16)
--- NOTE | 2018-03-23 12:07 | NUR ---
Dr. David notified of changes made in preferred intensity of care.
[2018-03-23] MEDS: HYDROCODONE/APAP 5/325MG 1 EACH TABLET GT PRN (17:30)
[2018-03-23] MEDS: MORPHINE SULFATE INJ 2 MG/ML DISP.SYRIN IV PRN (18:35)
--- NOTE | 2018-03-23 18:40 | NUR ---
Pt noted with increased work of breathing. RR 34. BP 101/57, HR 139. [place] was given 1hr prior, ineffective. Morphine 2mg IVP given now. Will monitor.
--- NOTE | 2018-03-23 19:33 | NUR ---
RR 27, pt still noted with increased work of breathing but improved. at bedside with white metal corrosion proofer. Pt kept comfortable, needs met and attended.
--- NOTE | 2018-03-23 19:55 | NUR ---
Charge nurse DALYI Dr. Paniagua regarding current VS. Temp= 102.3 ZD=159 RR=21 BP=88/52 SPO2= 99%. Also FYI him that was at bedside awhile a go with principal scientist and to only give tylenol per request, cooling measure, and comfort measure. stated "sounds good". will continue to monitor.
[2018-03-23 20:02] VITALS: BP 88/54
[2018-03-23] MEDS: DOCUSATE SODIUM LIQ 100 MG/10 ML UDC GT SCH (20:09)
[2018-03-23] MEDS: FINASTERIDE (5 MG) 5 MG TABLET GT SCH (20:11)
[2018-03-23] MEDS: MULTIVIT, IRON, MIN NO. 8, FA 1 TAB GT SCH (20:12)
[2018-03-23] MEDS: ASCORBIC ACID 500 MG TABLET GT SCH (20:12)
[2018-03-23] MEDS: ACETAMINOPHEN 650 MG/20 ML UDC- FOR SA PATIENTS ONLY GT PRN (20:24)
--- NOTE | 2018-03-23 20:25 | NUR ---
rn subacute notes patient noted with temperature of 102.3 tylenol prn given as ordered,colling measures provided will continue to monitor, MD aware.
[2018-03-23] MEDS: SENNOSIDES 8.6 MG TABLET GT SCH (21:14)
--- NOTE | 2018-03-23 21:45 | NUR ---
at bedside again with different software development manager. patient continues to have work of breathing. will continue to monitor.
[2018-03-24] MEDS: MORPHINE SULFATE INJ 2 MG/ML DISP.SYRIN IV PRN ×3 (01:08→10:20)
[2018-03-24] MEDS: AMINOCAPROIC ACID 500 MG TABLET GT SCH ×6 (01:19→21:45)
[2018-03-24] MEDS: ALBUTEROL FS 2.5 MG/3 ML VIAL.NEB NEB SCH ×4 (02:16→19:22)
[2018-03-24] MEDS: IPRATROPIUM NEB FS 0.5 MG/2.5 ML AMPUL.NEB NEB SCH ×4 (02:16→19:22)
[2018-03-24] MEDS: LEVOTHYROXINE SODIUM 125 MCG TABLET GT SCH (05:31)
[2018-03-24] MEDS: BACLOFEN (10 MG) 10 MG TABLET GT SCH ×3 (05:31→21:45)
[2018-03-24] MEDS: SIMETHICONE SUSP 40 MG/0.6 ML BOTTLE PO SCH ×3 (05:31→21:45)
[2018-03-24] MEDS: GLYCOPYRROLATE 1 MG TABLET GT SCH ×4 (05:31→16:44)
--- NOTE | 2018-03-24 06:19 | NUR ---
rn subacute notes prn morphine given as ordered per MD. noted patient in pain via hernandez wise scale, will continue to monitor for effectiveness. patient repositioned
[2018-03-24] MEDS: BISACODYL SUPP (10 MG) 10 MG/SUPP.RECT SUPP.RECT RC PRN (06:45)
--- NOTE | 2018-03-24 06:52 | NUR ---
rn subacute notes noted prn morphine effective. patient appears to be in a more comfortable condition at this time, head of bed elevated. vital signs 97/50,100% 02 sat,100 hr,98.7, 28 resp. will continue to monitor. iv site to left foot is intact and patent no redness , no infiltration present.
[2018-03-24 07:35] VITALS: BP 83/45
--- NOTE | 2018-03-24 07:51 | NUR ---
Pt BP decreases to 89/47 mmHg and HR -100.Pt is stable.Placed pt on Trendelenburg position for 10mt.Pt threw up x1.Put Pt back to upright position,suctioned and rechecked the BP,it goes up to 138/85,HR-85.
[2018-03-24] MEDS: PHENAZOPYRIDINE HCL 200 MG TABLET GT SCH (08:52)
[2018-03-24] MEDS: ACIDOPHILUS/BULGARICUS 1 EACH TAB.CHEW GT SCH (08:52)
[2018-03-24] MEDS: OMEPRAZOLE 10 MG CAPSULE.DR GT SCH (08:52)
[2018-03-24] MEDS: AMIODARONE HCL 200 MG TABLET GT SCH (08:52)
[2018-03-24] MEDS: HYDROGEN PEROXIDE 480 ML BOTTLE TP SCH ×2 (08:52→21:45)
[2018-03-24] MEDS: ZINC OXIDE 30 GM TUBE TP SCH ×6 (08:53→21:45)
[2018-03-24] MEDS: NYSTATIN TOP POWDER 15 GM BOTTLE TP SCH ×2 (08:53→21:45)
[2018-03-24] MEDS: LORATADINE 10 MG TABLET GT SCH (09:02)
[2018-03-24] MEDS: POLYETHYLENE GLYCOL 3350 17 GM POWD.PACK GT SCH (09:02)
[2018-03-24] MEDS: AMOX/CLAVULANATE 250 MG TABLET GT SCH ×2 (09:02→21:45)
[2018-03-24] MEDS: POLYVINYL ALCOHOL 15 ML BOTTLE EACHEYE SCH ×4 (09:02→21:45)
[2018-03-24] MEDS: METOCLOPRAMIDE HCL 10 MG TABLET GT PRN (13:30)
--- NOTE | 2018-03-24 13:30 | NUR ---
Pt threw up x2, Reglan 10ml via g-tube given.Vital signs checked and recorded.Responsible libertarian made aware and continue to monitor the pt.
[2018-03-24] MEDS: NEPRO 1,000 ML BOTTLE GT PRN (16:45)
[2018-03-24] MEDS: HYDROCODONE/APAP 5/325MG 1 EACH TABLET GT PRN (16:48)
[2018-03-24] MEDS: FINASTERIDE (5 MG) 5 MG TABLET GT SCH (20:00)
--- NOTE | 2018-03-24 20:00 | NUR ---
RN NOTES Pt in stable condition. On vent with prescribed settings. Will continue to monitor.
[2018-03-24] MEDS: ACETAMINOPHEN 650 MG/20 ML UDC- FOR SA PATIENTS ONLY GT PRN (21:00)
[2018-03-24] MEDS: DOCUSATE SODIUM LIQ 100 MG/10 ML UDC GT SCH (21:45)
[2018-03-24] MEDS: SENNOSIDES 8.6 MG TABLET GT SCH (21:45)
[2018-03-24] MEDS: MULTIVIT, IRON, MIN NO. 8, FA 1 TAB GT SCH (21:45)
[2018-03-24] MEDS: ASCORBIC ACID 500 MG TABLET GT SCH (21:45)
[2018-03-24 22:51] VITALS: BP 109/57
[2018-03-25] MEDS: AMINOCAPROIC ACID 500 MG TABLET GT SCH ×6 (00:19→21:59)
[2018-03-25] MEDS: GLYCOPYRROLATE 1 MG TABLET GT SCH ×4 (00:19→17:54)
[2018-03-25] MEDS: IPRATROPIUM NEB FS 0.5 MG/2.5 ML AMPUL.NEB NEB SCH ×4 (01:36→20:08)
[2018-03-25] MEDS: ALBUTEROL FS 2.5 MG/3 ML VIAL.NEB NEB SCH ×4 (01:36→20:08)
[2018-03-25] MEDS: BACLOFEN (10 MG) 10 MG TABLET GT SCH ×3 (05:32→21:59)
[2018-03-25] MEDS: LEVOTHYROXINE SODIUM 125 MCG TABLET GT SCH (05:32)
[2018-03-25] MEDS: SIMETHICONE SUSP 40 MG/0.6 ML BOTTLE PO SCH ×3 (05:32→21:59)
[2018-03-25 08:13] VITALS: BP 109/63
--- NOTE | 2018-03-25 08:55 | NUR ---
IGOR received a message from the resident's daughter Verito. She wants a letter for her school stating that resident is admitted to the hospital and also asked to know what the resident's medical status is, stating she has a letter from the licensed prosthetist to access the medical record. The SW spoke to resident's /conservator Mrs. Bradley and she stated that providing the letter to her is okay. IGOR wrote the letter and showed it to Mrs. Bradley to make sure that it is okay. Letter stated resident has been at [facility] since 06/05/2014 and is non-communicative. Mrs. Bradley stated that Verito is able to access the medical record but has to go to medical records. She stated that it is okay for IGOR to state that resident has stable vital signs currently. IGOR could not make out daughter's phone number but had her email from previous communication. IGOR sent copy of letter to her and asked her to call IGOR for her to receive instructions as to how to get resident's medical record.
[2018-03-25] MEDS: ACIDOPHILUS/BULGARICUS 1 EACH TAB.CHEW GT SCH (09:29)
[2018-03-25] MEDS: PHENAZOPYRIDINE HCL 200 MG TABLET GT SCH (09:29)
[2018-03-25] MEDS: AMOX/CLAVULANATE 250 MG TABLET GT SCH ×2 (09:29→21:59)
[2018-03-25] MEDS: OMEPRAZOLE 10 MG CAPSULE.DR GT SCH (09:29)
[2018-03-25] MEDS: AMIODARONE HCL 200 MG TABLET GT SCH (09:29)
[2018-03-25] MEDS: POLYETHYLENE GLYCOL 3350 17 GM POWD.PACK GT SCH (09:29)
[2018-03-25] MEDS: LORATADINE 10 MG TABLET GT SCH (09:29)
[2018-03-25] MEDS: POLYVINYL ALCOHOL 15 ML BOTTLE EACHEYE SCH ×4 (09:29→21:58)
[2018-03-25] MEDS: ZINC OXIDE 30 GM TUBE TP SCH ×4 (09:30→21:59)
[2018-03-25] MEDS: NYSTATIN TOP POWDER 15 GM BOTTLE TP SCH ×2 (09:30→21:59)
[2018-03-25] MEDS: HYDROGEN PEROXIDE 480 ML BOTTLE TP SCH ×2 (09:30→21:59)
--- NOTE | 2018-03-25 12:35 | NUR ---
SW informed the resident's about upcoming IDT meeting March 29, 2018 from 12:30-1:30PM. She stated that she would like to attend in person.
--- NOTE | 2018-03-25 13:43 | NUR ---
IGOR spoke to resident's dtr Doreen and gave her resident's recent vitals, which were normal this morning. She stated that she does not want to see the resident's medical record but rather to see how her father is doing. IGOR noted that she understood but that 's is his conservator. Doreen stated that she has documentation from the court authorizing her to know about resident's condition/see medical record. Doreen faxed this to IGOR and IGOR placed this into the resident's medical chart. Verito noted that she heard that the resident has not been doing so well and that she obtains her information from other family members. The SW spoke to 's Fanny who acknowledged that Verito is able to gain access to medical record. She noted that Verito is able call the subacute unit and receive simple updates as to the resident's medical condition. She noted that they are able to ask how the resident is doing and nurse is able to give vital signs and simple responses as to the resident's medical condition. 's stated "we are not hiding anything" and noted that the family "likes to make drama. Why do they never visit?" SW informed Verito that paperwork lists her name as the contact and the person who has access to his information. The resident's noted she is currently running errands but will fill out the Authorization for Use and Disclosure of Health Information when she comes to the hospital. IGOR informed charge nurse.
--- NOTE | 2018-03-25 18:27 | NUR ---
PATIENT WAS RECEIVED ON CONTINUOUS VENT SUPPORT WITH NOTED VENT SETTINGS.ALARMS ON AND AUDIBLE. AMBUBAG AND SPARE TRACH AT BEDSIDE.PATIENT STABLE AND NO RESPIRATORY DISTRESS NOTED. WILL CONTINUE TO MONITOR Addendum: 03/25/18 at 1828 by PATRICK JIANG RT Amended: Links added.
[2018-03-25] MEDS: FINASTERIDE (5 MG) 5 MG TABLET GT SCH (20:00)
[2018-03-25 20:39] VITALS: BP 119/59
[2018-03-25] MEDS: MULTIVIT, IRON, MIN NO. 8, FA 1 TAB GT SCH (21:59)
[2018-03-25] MEDS: ASCORBIC ACID 500 MG TABLET GT SCH (21:59)
[2018-03-25] MEDS: SENNOSIDES 8.6 MG TABLET GT SCH (21:59)
[2018-03-25] MEDS: DOCUSATE SODIUM LIQ 100 MG/10 ML UDC GT SCH (21:59)
[2018-03-25] MEDS: MORPHINE SULFATE INJ 2 MG/ML DISP.SYRIN IV PRN (22:44)
--- NOTE | 2018-03-25 22:45 | NUR ---
RN NOTES Noted pt with SOB. B/P 94/46, HR 121, RR 34, T 98.0. Morphine Sulfate 2mg IVP for facial grimacing. Will continue to monitor.
--- NOTE | 2018-03-25 23:30 | NUR ---
RN NOTES Noted pt with no labored breathing. B/P 94/46, HR 102, RR 24. Medication effective. Will continue to monitor.
[2018-03-26] MEDS: GLYCOPYRROLATE 1 MG TABLET GT SCH ×4 (00:31→17:16)
[2018-03-26] MEDS: AMINOCAPROIC ACID 500 MG TABLET GT SCH ×6 (00:31→21:39)
[2018-03-26] MEDS: ALBUTEROL FS 2.5 MG/3 ML VIAL.NEB NEB SCH ×4 (02:09→19:30)
[2018-03-26] MEDS: IPRATROPIUM NEB FS 0.5 MG/2.5 ML AMPUL.NEB NEB SCH ×4 (02:09→20:50)
[2018-03-26] MEDS: SIMETHICONE SUSP 40 MG/0.6 ML BOTTLE PO SCH ×3 (05:00→21:39)
[2018-03-26] MEDS: BACLOFEN (10 MG) 10 MG TABLET GT SCH ×3 (05:00→21:39)
[2018-03-26] MEDS: LEVOTHYROXINE SODIUM 125 MCG TABLET GT SCH (06:29)
[2018-03-26 07:42] VITALS: BP 103/56
[2018-03-26] MEDS: ACETAMINOPHEN 650 MG/20 ML UDC- FOR SA PATIENTS ONLY GT PRN (08:04)
--- NOTE | 2018-03-26 08:05 | NUR ---
RN NOTES PATIENT NOTED WITH ELEVATED TEMP OF 101.8F, PRN TYLENOL 650MG GIVEN VIA GT AND COOLING MEASURES DONE. WILL CONTINUE TO MONITOR
[2018-03-26] MEDS: AMOX/CLAVULANATE 250 MG TABLET GT SCH ×2 (08:23→21:39)
[2018-03-26] MEDS: POLYVINYL ALCOHOL 15 ML BOTTLE EACHEYE SCH ×4 (08:23→21:39)
[2018-03-26] MEDS: ACIDOPHILUS/BULGARICUS 1 EACH TAB.CHEW GT SCH (08:26)
[2018-03-26] MEDS: POLYETHYLENE GLYCOL 3350 17 GM POWD.PACK GT SCH (08:26)
[2018-03-26] MEDS: AMIODARONE HCL 200 MG TABLET GT SCH (08:26)
[2018-03-26] MEDS: HYDROGEN PEROXIDE 480 ML BOTTLE TP SCH ×2 (08:28→21:39)
[2018-03-26] MEDS: OMEPRAZOLE 10 MG CAPSULE.DR GT SCH (08:28)
[2018-03-26] MEDS: LORATADINE 10 MG TABLET GT SCH (08:31)
[2018-03-26] MEDS: ZINC OXIDE 30 GM TUBE TP SCH ×2 (08:33→21:39)
[2018-03-26] MEDS: PHENAZOPYRIDINE HCL 200 MG TABLET GT SCH (08:35)
[2018-03-26] MEDS: NYSTATIN TOP POWDER 15 GM BOTTLE TP SCH ×2 (08:39→21:39)
--- NOTE | 2018-03-26 09:00 | NUR ---
RN NOTES PT'S TEMP WENT DOWN TO 100.2F, COOLING MEASURES MAINTAINED. WILL CONTINUE TO MONITOR
--- NOTE | 2018-03-26 09:00 | NUR ---
iv 0.9% NS irrigation 3L bag is given.
--- NOTE | 2018-03-26 10:31 | NUR ---
Per resident's , there is a new settlement agreement and daughter Verito provided old copy dated 2013. She stated that she spoke to her slackline operator and that she will be mailing her a new copy which she will provide to the . Resident's stated that if Verito calls again to ask her to please send updated copy of settlement agreement, as there is one that should be from 2016. Mrs. Bradley asked SW not to provide letter but informed her that after speaking with her yesterday and getting her approval (and showing her a copy of the letter), verification of admit letter was emailed to her. Mrs. Bradley acknowledged that she had approved for the letter to be sent to Verito yesterday. will not be providing original copy to resident's boris Sellers per the request of Mrs. Bradley. Resident's stated that she would be talking to her slackline operator as the resident's daughters are beginning to reach out to the . Per Mrs. Bradley, she does not want them to be harassing her. No information is to be provided to resident's daughter Verito until resident's brings in authorization to disclose information form and brings updated settlement paperwork. Charge nurse informed.
[2018-03-26] MEDS: NEPRO 1,000 ML BOTTLE GT PRN (15:58)
--- NOTE | 2018-03-26 16:50 | NUR ---
PATIENT RECEIVED TRACHED ON MECHANICAL VENTILATION. VENT PLUGGED INTO RED OUTLET. ALARMS ON AND AUDIBLE. AMBU BAG/ BACK UP TRACH @ BEDSIDE. TX GIVEN, NO ADVERSE REACTIONS NOTED. SX DONE, TRACH SECURED AND PATENT AT ALL TIMES. CHARGE NURSE AWARE OF HIGH HEART RATE. Addendum: 03/26/18 at 1650 by SUSSY NORTON RT Amended: Links added.
[2018-03-26] MEDS: FINASTERIDE (5 MG) 5 MG TABLET GT SCH (20:00)
[2018-03-26 20:01] VITALS: BP 115/63
[2018-03-26] MEDS: ASCORBIC ACID 500 MG TABLET GT SCH (21:39)
[2018-03-26] MEDS: SENNOSIDES 8.6 MG TABLET GT SCH (21:39)
[2018-03-26] MEDS: DOCUSATE SODIUM LIQ 100 MG/10 ML UDC GT SCH (21:39)
[2018-03-26] MEDS: MULTIVIT, IRON, MIN NO. 8, FA 1 TAB GT SCH (21:39)
[2018-03-26] MEDS: MORPHINE SULFATE INJ 2 MG/ML DISP.SYRIN IV PRN (23:00)
--- NOTE | 2018-03-26 23:00 | NUR ---
RN NOTES Noted pt with SOB. B/P 112/66, HR 102, RR 34, T 98.0. Morphine Sulfate 2mg IVP for facial grimacing. Will continue to monitor.
[2018-03-27] MEDS: GLYCOPYRROLATE 1 MG TABLET GT SCH ×4 (00:01→18:21)
[2018-03-27] MEDS: AMINOCAPROIC ACID 500 MG TABLET GT SCH ×6 (01:00→21:02)
[2018-03-27] MEDS: IPRATROPIUM NEB FS 0.5 MG/2.5 ML AMPUL.NEB NEB SCH ×4 (01:30→19:38)
[2018-03-27] MEDS: ALBUTEROL FS 2.5 MG/3 ML VIAL.NEB NEB SCH ×4 (01:30→19:38)
[2018-03-27] MEDS: BACLOFEN (10 MG) 10 MG TABLET GT SCH ×3 (05:46→21:02)
[2018-03-27] MEDS: SIMETHICONE SUSP 40 MG/0.6 ML BOTTLE PO SCH ×3 (05:46→21:02)
[2018-03-27] MEDS: LEVOTHYROXINE SODIUM 125 MCG TABLET GT SCH (05:46)
[2018-03-27 07:44] VITALS: BP 90/48
[2018-03-27] MEDS: ACETAMINOPHEN 650 MG/20 ML UDC- FOR SA PATIENTS ONLY GT PRN (07:58)
[2018-03-27] MEDS: LORATADINE 10 MG TABLET GT SCH (08:07)
[2018-03-27] MEDS: AMIODARONE HCL 200 MG TABLET GT SCH (08:07)
[2018-03-27] MEDS: AMOX/CLAVULANATE 250 MG TABLET GT SCH ×2 (08:07→21:02)
[2018-03-27] MEDS: POLYVINYL ALCOHOL 15 ML BOTTLE EACHEYE SCH ×4 (08:07→21:02)
[2018-03-27] MEDS: PHENAZOPYRIDINE HCL 200 MG TABLET GT SCH (08:08)
[2018-03-27] MEDS: ACIDOPHILUS/BULGARICUS 1 EACH TAB.CHEW GT SCH (08:08)
[2018-03-27] MEDS: POLYETHYLENE GLYCOL 3350 17 GM POWD.PACK GT SCH (08:08)
[2018-03-27] MEDS: OMEPRAZOLE 10 MG CAPSULE.DR GT SCH (08:08)
[2018-03-27] MEDS: MAGNESIUM HYDROXIDE 30 ML UDC GT PRN (08:09)
[2018-03-27] MEDS: ZINC OXIDE 30 GM TUBE TP SCH ×2 (09:00→21:03)
[2018-03-27] MEDS: NYSTATIN TOP POWDER 15 GM BOTTLE TP SCH ×2 (09:00→21:03)
[2018-03-27] MEDS: HYDROGEN PEROXIDE 480 ML BOTTLE TP SCH ×2 (09:00→21:03)
[2018-03-27] MEDS: NEPRO 1,000 ML BOTTLE GT PRN (15:58)
--- NOTE | 2018-03-27 19:38 | NUR ---
RT NOTE: RECEIVED TRACHED ON MECHANICAL VENTILATION. PRINCIPAL TECHNICAL WRITER DONE. VENT PLUGGED INTO RED OUTLET. ALARMS ON AND AUDIBLE. AMBU BAG AT BEDSIDE. INCREASED FI02 TO 45% DUE TO LOW SP02 OF 88%. TX GIVEN, NO ADVERSE REACTIONS NOTED. SX DONE, TRACH SECURED AND PATENT AT ALL TIMES. WILL CONT TO MONITOR PATIENT.
[2018-03-27] MEDS: FINASTERIDE (5 MG) 5 MG TABLET GT SCH (20:00)
[2018-03-27 20:49] VITALS: BP 68/42
[2018-03-27] MEDS: ASCORBIC ACID 500 MG TABLET GT SCH (21:02)
[2018-03-27] MEDS: MULTIVIT, IRON, MIN NO. 8, FA 1 TAB GT SCH (21:02)
[2018-03-27] MEDS: DOCUSATE SODIUM LIQ 100 MG/10 ML UDC GT SCH (21:02)
[2018-03-27] MEDS: SENNOSIDES 8.6 MG TABLET GT SCH (21:03)
[2018-03-28] MEDS: AMINOCAPROIC ACID 500 MG TABLET GT SCH ×4 (00:34→12:54)
[2018-03-28] MEDS: GLYCOPYRROLATE 1 MG TABLET GT SCH ×3 (00:34→12:54)
[2018-03-28] MEDS: IPRATROPIUM NEB FS 0.5 MG/2.5 ML AMPUL.NEB NEB SCH ×3 (01:47→14:20)
[2018-03-28] MEDS: ALBUTEROL FS 2.5 MG/3 ML VIAL.NEB NEB SCH ×3 (01:47→14:20)
[2018-03-28] MEDS: ACETAMINOPHEN 650 MG/20 ML UDC- FOR SA PATIENTS ONLY GT PRN (02:44)
[2018-03-28] MEDS: BACLOFEN (10 MG) 10 MG TABLET GT SCH ×2 (05:00→12:54)
[2018-03-28] MEDS: SIMETHICONE SUSP 40 MG/0.6 ML BOTTLE PO SCH ×2 (05:00→12:54)
[2018-03-28] MEDS: BISACODYL SUPP (10 MG) 10 MG/SUPP.RECT SUPP.RECT RC PRN (06:10)
[2018-03-28] MEDS: LEVOTHYROXINE SODIUM 125 MCG TABLET GT SCH (06:10)
--- NOTE | 2018-03-28 06:30 | NUR ---
Patient noted with low grade fever of 99.5F, comfort measures provided, repositioned for comfort, no s/sx of acute distress noted. All needs attended and anticipated. Will continue to monitor.
[2018-03-28 08:02] VITALS: BP 66/40
[2018-03-28 09:00] VITALS: BP 66/40
[2018-03-28] MEDS: AMIODARONE HCL 200 MG TABLET GT SCH (09:00)
--- NOTE | 2018-03-28 09:01 | NUR ---
Pt's called and said she wants to do "everything" for the pt but remain DNR. She said she will come later today to change the preferred intensity of care. She said she feels bad that she is not doing "everything" for the pt and thinks that she now wants to do "everything" for him then he can go when it is already his time to go. Notified Dr. Paniagua and he ordered to transfer pt to ER. Pt's urine yellow in color, no respiratory distress noted. BP 66/40 HR 107.
--- NOTE | 2018-03-28 09:17 | NUR ---
Pt's does not want pt to be transferred to ER. She wants IV fluids, blood transfusions, and CBC. Notified Dr. Paniagua.
[2018-03-28] MEDS: POLYVINYL ALCOHOL 15 ML BOTTLE EACHEYE SCH ×2 (09:36→12:54)
[2018-03-28] MEDS: AMOX/CLAVULANATE 250 MG TABLET GT SCH (09:36)
[2018-03-28] MEDS: OMEPRAZOLE 10 MG CAPSULE.DR GT SCH (09:37)
[2018-03-28] MEDS: ZINC OXIDE 30 GM TUBE TP SCH (09:37)
[2018-03-28] MEDS: LORATADINE 10 MG TABLET GT SCH (09:37)
[2018-03-28] MEDS: PHENAZOPYRIDINE HCL 200 MG TABLET GT SCH (09:37)
[2018-03-28] MEDS: POLYETHYLENE GLYCOL 3350 17 GM POWD.PACK GT SCH (09:37)
[2018-03-28] MEDS: NYSTATIN TOP POWDER 15 GM BOTTLE TP SCH (09:37)
[2018-03-28] MEDS: ACIDOPHILUS/BULGARICUS 1 EACH TAB.CHEW GT SCH (09:37)
[2018-03-28] MEDS: HYDROGEN PEROXIDE 480 ML BOTTLE TP SCH (09:37)
--- NOTE | 2018-03-28 09:37 | NUR ---
Dr. Paniagua ordered NS 1 L IV bolus x 1 for hypotension.
--- NOTE | 2018-03-28 10:22 | NUR ---
Received order to do CBC.
[2018-03-28] MEDS ORDERED: IV NS 0.9% 1,000 ML IV ONE (12:30)
[2018-03-28 12:50] LABS: BASOPHILS % (AUTO) 0.1 % (0.0-2.0); EOSINOPHILS % (AUTO) 1.3 % (0.0-6.0); LYMPHOCYTES # (AUTO) 1.2 /CMM (0.8-4.8); LYMPHOCYTES % (AUTO) 4.9 % (20.0-44.0); MEAN CORPUSCULAR HEMOGLOBIN 31 PG (26.0-33.0); MEAN CORPUSCULAR HGB CONC 37 g/dl (31.0-36.0); MEAN CORPUSCULAR VOLUME 82 fL (80-96); MONOCYTES % (AUTO) 8.1 % (2.0-12.0); NEUTROPHILS # (AUTO) 21.7 /CMM (1.8-8.9); NEUTROPHILS % (AUTO) 85.6 % (43.0-81.0); PLATELET COUNT (AUTO) 411 /CMM (150-450); RDW COEFFICIENT OF VARIATION 17.6 (11.5-15.0); WHITE BLOOD COUNT (AUTO) 25.2 K/uL (4.3-11.0)
[2018-03-28 12:55] LABS: RED BLOOD CELL COUNT(AUTO) 1.92 MIL/uL (4.5-6.0)
[2018-03-28 13:00] LABS: HEMATOCRIT 16 % (39-51); HEMOGLOBIN 5.9 g/dL (13.5-17.5)
--- NOTE | 2018-03-28 13:01 | NUR ---
Hgb 5.9 HCt [address] Paniagua. Pt's wants blood transfusion. Received order to give 2 units of PRBC.
[2018-03-28 13:33] LABS: LYMPHOCYTES % (MANUAL) 7 % (16-48); MONOCYTES % (MANUAL) 1 % (0-11.0); NEUTROPHILS % (MANUAL) 92 (42-76)
--- NOTE | 2018-03-28 15:35 | NUR ---
ABG REQUESTED BUT NOT ORDERED PER PT FAMILY. 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
--- NOTE | 2018-03-28 15:43 | NUR ---
Monitoring pt and his BP throughout shift. BP 59/27 HR 102. Pt looks pale. Followed up blood from blood bank. Blood will be ready in [address] Paniagua.
--- NOTE | 2018-03-28 15:50 | NUR ---
Called pt's . Notified her that pt does not look good, BP really low, pt gasping for breath and pale.
--- NOTE | 2018-03-28 15:50 | NUR ---
DECREASED PEEP TO [address] RAJANI LUTZ, HAM DOCTORDAQUAN FLORES. Addendum: 03/28/18 at 1559 by KERA ADAM RT Amended: Links added.
--- NOTE | 2018-03-28 16:11 | NUR ---
BP 44/36 HR 50. Pt's blood pressure and HR are going down. Pt appears pale. According to preferred intensity of care, no transfer. Notified Dr. Paniagua.
--- NOTE | 2018-03-28 16:22 | NUR ---
BP 39/22 HR 55. Pt's at bedside. Pt appears pale. Notified Dr. Paniagua and received order to give another bolus of IV NS 1 L.
--- NOTE | 2018-03-28 16:25 | NUR ---
Notified Dr. Paniagua that pt appears to have . Unable to obtain vital signs. Dr. Paniagua ordered to do EKG and pronounce pt if asystole. Addendum: 03/28/18 at 1933 by NOAH OGDEN RN Pupils fixed, no heart tone, mottled skin, no palpable pulse.
--- NOTE | 2018-03-28 16:45 | NUR ---
PT REC'D TRACHED ON [facility] VENT SETTINGS CHARTED. AGONAL BREATHING PATTERN AND NO RESPONSE TO SX WHEN STIMULATED. SPO2 AT 98% HR 98. ABG DISCUSSED WITH LAMINATOR PREFORMS ABBY, BUT FAMILY REFUSES. PEEP DECREASED TO [address] GERARD, DAQUAN ROCHE AWARE. PT @1644. Addendum: 03/28/18 at 1808 by KERA ADAM RT Amended: Links added.
--- NOTE | 2018-03-28 16:45 | NUR ---
EKG done by RT Irwin. EKG showed asystole. Pt . at beside.
--- NOTE | 2018-03-28 16:47 | NUR ---
Called [facility] and spoke with Petra. . Case was closed. Petra said to release the body. Addendum: 03/28/18 at 1856 by NOAH OGDEN RN Spoke with Phuong, not Petra.
--- NOTE | 2018-03-28 17:25 | NUR ---
Called [facility] and spoke with Petra. Asked her to have the body picked up before 745 pm.
--- NOTE | 2018-03-29 10:42 | NUR ---
IGOR called the resident's to express condolences. She noted that she was here when the resident and waited for [place] [facility] to hand picker the body. She thanked IGOR and noted that she would come by the hospital at a later time. She noted that she took his belongings home last night.
[2018-07-06] MEDS ORDERED: TUBERCULIN,PURIF.PROT.DERIV. 5 TU/0.1 ML VIAL ID SCH (09:00)
== END 2018-03-28 20:19 | disposition expired | DRG 207 ==
LOC: SA
PROVIDERS: ADMIT Internal Medicine; ATTEND Internal Medicine
PROC: 05H533Z Insertion of Infusion Device into Right Subclavian Vein, Percutaneous Approach (ICD-10-PCS; 2017-11-23)
PROC: 5A1955Z Respiratory Ventilation, Greater than 96 Consecutive Hours (ICD-10-PCS; principal; 2018-01-18)
PROC: B547ZZA Ultrasonography of Left Subclavian Vein, Guidance (ICD-10-PCS; 2018-01-22)
PROC: 05H633Z Insertion of Infusion Device into Left Subclavian Vein, Percutaneous Approach (ICD-10-PCS; 2018-01-22)
PROC: 05H533Z Insertion of Infusion Device into Right Subclavian Vein, Percutaneous Approach (ICD-10-PCS; 2018-02-20)
PROC: B546ZZA Ultrasonography of Right Subclavian Vein, Guidance (ICD-10-PCS; 2018-02-20)
PROC: 30233N1 Transfusion of Nonautologous Red Blood Cells into Peripheral Vein, Percutaneous Approach (ICD-10-PCS; 2018-02-20)
DX: J96.11 Chronic respiratory failure with hypoxia (principal); R53.2 Functional quadriplegia; J18.9 Pneumonia, unspecified organism; J98.59 Other diseases of mediastinum, not elsewhere classified; R65.21 Severe sepsis with septic shock; A41.59 Other Gram-negative sepsis; G93.1 Anoxic brain damage, not elsewhere classified; R40.3 Persistent vegetative state; I47.1 Supraventricular tachycardia; I13.0 Hypertensive heart and chronic kidney disease with heart failure and stage 1 through stage 4 chronic kidney disease, or unspecified chronic kidney disease; A04.72 Enterocolitis due to Clostridium difficile, not specified as recurrent; N39.0 Urinary tract infection, site not specified; N17.9 Acute kidney failure, unspecified; K94.23 Gastrostomy malfunction; L89.159 Pressure ulcer of sacral region, unspecified stage; E87.8 Other disorders of electrolyte and fluid balance, not elsewhere classified; R13.10 Dysphagia, unspecified; N18.9 Chronic kidney disease, unspecified; I25.10 Atherosclerotic heart disease of native coronary artery without angina pectoris; Z85.850 Personal history of malignant neoplasm of thyroid; D63.8 Anemia in other chronic diseases classified elsewhere; M20.40 Other hammer toe(s) (acquired), unspecified foot; I73.9 Peripheral vascular disease, unspecified; R25.3 Fasciculation; Z22.322 Carrier or suspected carrier of Methicillin resistant Staphylococcus aureus; R33.9 Retention of urine, unspecified; I50.9 Heart failure, unspecified; N18.3 Chronic kidney disease, stage 3 (moderate); E78.5 Hyperlipidemia, unspecified; B00.9 Herpesviral infection, unspecified; Z66 Do not resuscitate; Z98.890 Other specified postprocedural states; E89.0 Postprocedural hypothyroidism; Z87.820 Personal history of traumatic brain injury; Z86.19 Personal history of other infectious and parasitic diseases; Z86.14 Personal history of Methicillin resistant Staphylococcus aureus infection; Z51.5 Encounter for palliative care; R32 Unspecified urinary incontinence; R31.0 Gross hematuria; Y83.3 Surgical operation with formation of external stoma as the cause of abnormal reaction of the patient, or of later complication, without mention of misadventure at the time of the procedure; Y82.9 Unspecified medical devices associated with adverse incidents; Y92.9 Unspecified place or not applicable; Y95 Nosocomial condition; C73 Malignant neoplasm of thyroid gland
CPT/HCPCS: 31720; 36415; 36569; 36600; 71045-TC; 74018; 76770-TC; 80048-TC; 80053-TC; 80150; 80202-TC; 81000-TC; 82248-TC; 82272-TC; 82565-TC; 82803-TC; 83605-TC; 83735-TC; 84100-TC; 84132-TC; 84443-TC; 84520-TC; 85025-TC; 85027-TC; 85610-TC; 85730-TC; 86850-TC; 86921-TC; 87040-TC; 87086-TC; 87186-TC; 94002-TC; 94003-TC; 94640-TC; 94760-TC; 94762-TC; 94799-TC; 99082-TC; A4216; A4217; A4349; A4623; A6402; A7526; J0278; J0713; J1580; J1644; J2185; J2270; J2543; J2597; J3260; J3370; J7030; J7040; J7050; J7060; P9016-BL; Q0163; Q9963; Z7610

== ENCOUNTER 2017-12-01 19:03 | Outpatient (CLI) | payer MEDICARE, MEDICAID ==
[~2017-12-01 19:03] MED LIST changes: -AMIO200T2 GT; +AMIO200T4 GT; -GLYCOPYRROLATE 1 MG TABLET ONE
== END 2017-12-01 23:59 | disposition home or self-care (01) ==
LOC: CT 19:03
PROVIDERS: ATTEND Internal Medicine
DX: C73 Malignant neoplasm of thyroid gland (principal); J90 Pleural effusion, not elsewhere classified; Z98.890 Other specified postprocedural states
CPT/HCPCS: 70490-TC